=== PATIENT | male | born 1955 | race Caucasian/White ===

== ENCOUNTER 2023-03-27 09:30 | Outpatient (OUT) | payer OTHER, SELFPAY ==
[2023-03-27 10:24] LABS: Estimated Average Glucose 237 mg/dL; Glycohemoglobin A1C 9.9 % (4.5-6.2)
[2023-03-27 10:48] LABS: Alanine Aminotransferase 39 U/L (16-63); Albumin Level 3.6 g/dL (3.4-5.0); Alkaline Phosphatase 109 U/L (46-116); Anion Gap 15.1; Aspartate Amino Transferase 26 U/L (15-37); BUN Creatinine Ratio 13.4; Bilirubin Total 0.4 mg/dL (0.2-1.0); Calcium 9.4 mg/dL (8.5-10.1); Carbon Dioxide 26.4 mmol/L (21.0-32.0); Chloride 95 mmol/L (98-107); Estimated GFR (African America >60 (>=60); Estimated GFR (Non-African Ame >60 (>=60); Globulin 3.5 g/dL; Glucose 293 mg/dL (74-106); Potassium 4.5 mmol/L (3.5-5.1); Sodium 132 mmol/L (136-145); Total Protein 7.1 g/dL (6.4-8.2)
== END 2023-03-27 09:31 ==
LOC: LAB 09:38
PROVIDERS: PCP Internal Medicine; Visit Provider Internal Medicine
DX: E11.9 Type 2 diabetes mellitus without complications (principal)
CPT/HCPCS: 36415; 80053; 83036

== ENCOUNTER 2023-05-29 12:01 | Outpatient (OUT) | payer OTHER, SELFPAY ==
[2023-05-29 12:52] LABS: Estimated Average Glucose 157 mg/dL; Glycohemoglobin A1C 7.1 % (4.5-6.2)
[2023-05-29 13:02] LABS: Anion Gap 12.6; BUN Creatinine Ratio 13.5; Calcium 8.5 mg/dL (8.5-10.1); Carbon Dioxide 28.3 mmol/L (21.0-32.0); Chloride 94 mmol/L (98-107); Chol HDL Ratio 2.6; Cholesterol 97 mg/dL (<=200); Estimated GFR (African America >60 (>=60); Estimated GFR (Non-African Ame >60 (>=60); Glucose 256 mg/dL (74-106); HDL Cholesterol 38 mg/dL (40-60); Potassium 4.9 mmol/L (3.5-5.1); Sodium 130 mmol/L (136-145); Thyroid Stimulating Hormone 6.951 uIU/mL (0.358-3.740); Triglycerides 86 mg/dL (<=150); VLDL CHOLESTEROL 17.2 mg/dL
== END 2023-05-29 12:02 | disposition home or self-care (01) ==
LOC: LAB 12:03
PROVIDERS: PCP Internal Medicine; Visit Provider Internal Medicine
DX: E11.9 Type 2 diabetes mellitus without complications (principal); E03.9 Hypothyroidism, unspecified; E78.5 Hyperlipidemia, unspecified
CPT/HCPCS: 36415; 80048; 80061; 83036; 84443

== ENCOUNTER 2023-06-10 20:03 | Emergency (ER) | payer OTHER, SELFPAY ==
[2023-06-10 20:06] VITALS: BP 121/82; PULSE 98; RESP 20; TEMP 36.6; O2SAT 98; BMI 38.3
--- NOTE | 2023-06-10 20:11 | ED_ITS ---
HPI - Recheck/Abnormal Lab/Rx General Chief Complaint: Recheck/Abnormal Lab/Rx Stated Complaint: Abnormal Labs Time Seen by Provider: 06/10/23 20:08 History of Present Illness HPI narrative: patient is scheduled for right TKA next month. States he had labs drawn today and was informed they were abnormal and he should come to the ER. He arrives asymptomatic. He denies any easy bruising, bleeding while brushing his teeth or blood per rectum. Related Data Allergies Allergy/AdvReac Type Severity Reaction Status Date / Time No Known Drug Allergies Allergy Verified 06/10/23 20:14 Review of Systems ROS Status of ROS 10 or more systems reviewed and unremarkable except as noted in history and below Exam Constitutional Vital Signs, click to edit/add: Last Vital Signs Temp 98 F 06/10/23 20:06 Pulse 98 H 06/10/23 20:06 Resp 20 06/10/23 20:06 BP 121/82 06/10/23 20:06 Pulse Ox 98 06/10/23 20:06 O2 Del Method Room Air 06/10/23 20:06 Common normals: no apparent distress, average body habitus, oriented x3 and alert Eye Common normals: EOMs intact bilaterally and conjunctivae normal Respiratory Common normals: normal respiratory effort, no use of accessory muscles and clear to auscultation bilaterally Cardio Common normals: regular rate, regular rhythm, S1 normal heart sound and S2 normal heart sound Extremity Common normals: normal to inspection Neuro Common normals: oriented x3, CN's II-XII intact bilaterally, moves all extremities and no focal motor deficits Psych Appearance: grossly normal Course Vital Signs Vital signs: Vital Signs Temperature 98 F 06/10/23 20:06 Pulse Rate 98 H 06/10/23 20:06 Respiratory Rate 20 06/10/23 20:06 Blood Pressure 121/82 06/10/23 20:06 Pulse Oximetry 98 06/10/23 20:06 Oxygen Delivery Method Room Air 06/10/23 20:06 Temperature 98 F 06/10/23 20:06 Pulse Rate 98 H 06/10/23 20:06 Respiratory Rate 20 06/10/23 20:06 Blood Pressure 121/82 06/10/23 20:06 Pulse Oximetry 98 06/10/23 20:06 Oxygen Delivery Method Room Air 06/10/23 20:06 MDM - Recheck/Abnormal Lab/Rx MDM Narrative Medical decision making narrative: Patient sent to the Er for abnormal PT and INR. INR reportedly 10. Labs drawn here in the department finds INR to be very normal. he does have mild elevation of LFTs that can be followed up by his PCP. He is feeling well and is discharged home to follow up with his doctor Lab Data Labs: Lab Results 06/10/23 Range/Units 20:23 WBC 13.3 H (4.0-11.0) 10^3/uL RBC 4.57 L (4.70-6.10) 10^6/uL Hgb 13.8 L (14.0-18.0) g/dL Hct 40.0 L (42.0-54.0) % MCV 87.5 (80.0-94.0) fL MCH 30.2 (25.9-34.0) pg MCHC 34.5 (29.9-35.2) g/dL RDW 12.8 (11.0-15.0) % Plt Count 189 (150-450) 10^3/uL MPV 9.3 L (9.5-13.5) fL Neut % (Auto) 61.0 (43.0-75.0) % Lymph % (Auto) 19.6 L (20.5-60.0) % [place] % (Auto) 8.7 (1.7-12.0) % Eos % (Auto) 9.6 H (0.9-7.0) % Baso % (Auto) 0.7 (0.2-2.0) % Neut # (Auto) 8.1 H (1.4-6.5) 10^3/uL Lymph # (Auto) 2.6 (1.2-3.8) 10^3/uL [place] # (Auto) 1.2 H (0.3-0.8) 10^3/uL Eos # (Auto) 1.3 H (0.0-0.7) 10^3/uL Baso # (Auto) 0.1 (0.0-0.1) 10^3/uL Abs Immat Gran (auto) 0.05 H (0.00-0.03) 10^3/uL Imm/Tot Granulo (auto) 0.4 (0.0-0.5) % PT 10.5 (9.0-11.6) sec INR 0.99 APTT 28.5 (22.3-36.2) sec Sodium 128 L (136-145) mmol/L Potassium 4.6 (3.5-5.1) mmol/L Chloride 94 L (98-107) mmol/L Carbon Dioxide 26.1 (21.0-32.0) mmol/L Anion Gap 12.5 BUN 13.0 (7.0-18.0) mg/dL Creatinine 0.98 (0.70-1.30) mg/dL Est GFR ( Amer) >60 (>=60) Est GFR (Non-Af Amer) >60 (>=60) BUN/Creatinine Ratio 13.3 Glucose 101 (74-106) mg/dL Calcium 9.1 (8.5-10.1) mg/dL Total Bilirubin 0.5 (0.2-1.0) mg/dL AST 30 (15-37) U/L ALT 123 H (16-63) U/L Alkaline Phosphatase 126 H (46-116) U/L Total Protein 7.3 (6.4-8.2) g/dL Albumin 3.8 (3.4-5.0) g/dL Globulin 3.5 g/dL Albumin/Globulin Ratio 1.1 Discharge Plan Discharge Chief Complaint: Recheck/Abnormal Lab/Rx Clinical Impression: Abnormal laboratory test Patient Disposition: Home, Self-Care Additional Instructions: follow up with your doctor for recheck Stand Alone Forms: Portal Instructions Referrals: Shaikh Grove MD [Primary Care Provider] - 1 week
[2023-06-10 20:44] LABS: Basophils Absolute Auto 0.1 10^3/uL (0.0-0.1); Basophils Percent Auto 0.7 % (0.2-2.0); Eosinophils Absolute Auto 1.3 10^3/uL (0.0-0.7); Eosinophils Percent Auto 9.6 % (0.9-7.0); Hemoglobin 13.8 g/dL (14.0-18.0); Immature Granulocytes Abs Auto 0.05 10^3/uL (0.00-0.03); Immature Granulocytes Pct Auto 0.4 % (0.0-0.5); Lymphocytes Absolute Auto 2.6 10^3/uL (1.2-3.8); Lymphocytes Percent Auto 19.6 % (20.5-60.0); Mean Corpuscular HGB Conc 34.5 g/dL (29.9-35.2); Mean Corpuscular Hemoglobin 30.2 pg (25.9-34.0); Mean Corpuscular Volume 87.5 fL (80.0-94.0); Mean Platelet Volume 9.3 fL (9.5-13.5); Monocytes Absolute Auto 1.2 10^3/uL (0.3-0.8); Monocytes Percent Auto 8.7 % (1.7-12.0); Neutrophils Absolute Auto 8.1 10^3/uL (1.4-6.5); Platelet Count 189 10^3/uL (150-450); Red Blood Count 4.57 10^6/uL (4.70-6.10); Red Cell Distribution Width 12.8 % (11.0-15.0); White Blood Count 13.3 10^3/uL (4.0-11.0)
[2023-06-10 21:01] LABS: Alanine Aminotransferase 123 U/L (16-63); Albumin Globulin Ratio 1.1; Albumin Level 3.8 g/dL (3.4-5.0); Alkaline Phosphatase 126 U/L (46-116); Anion Gap 12.5; Aspartate Amino Transferase 30 U/L (15-37); BUN Creatinine Ratio 13.3; Bilirubin Total 0.5 mg/dL (0.2-1.0); Calcium 9.1 mg/dL (8.5-10.1); Carbon Dioxide 26.1 mmol/L (21.0-32.0); Chloride 94 mmol/L (98-107); Estimated GFR (African America >60 (>=60); Estimated GFR (Non-African Ame >60 (>=60); Globulin 3.5 g/dL; Glucose 101 mg/dL (74-106); Potassium 4.6 mmol/L (3.5-5.1); Sodium 128 mmol/L (136-145); Total Protein 7.3 g/dL (6.4-8.2)
[2023-06-10 21:07] LABS: INR 0.99; Partial Thromboplastin Time 28.5 sec (22.3-36.2); Prothrombin Time 10.5 sec (9.0-11.6)
[2023-06-10 21:24] VITALS: BP 110/70; PULSE 108; RESP 18; O2SAT 92
== END 2023-06-10 21:44 | disposition home or self-care (01) ==
PROVIDERS: Emergency Provider Internal Medicine; PCP Internal Medicine
DX: R79.1 Abnormal coagulation profile (principal)
CPT/HCPCS: 36415; 80053; 85025; 85610; 85730; 99283

== ENCOUNTER 2023-06-12 14:40 | Emergency (ER) | payer OTHER, SELFPAY ==
[2023-06-12 14:42] VITALS: BP 143/87; PULSE 88; RESP 18; TEMP 36.6; O2SAT 98; BMI 38.3
--- NOTE | 2023-06-12 14:50 | XR_ITS ---
[address] [address] Patient Name: JOIE LANGSTON JR. MRN: [id number] date: 1955 Sex: M Assigned Patient Location: ER Current Patient Location: Accession/Order Number: [id number] Exam Date: 06/12/2023 15:25 Report Date: 06/12/2023 15:57 At the request of: KIM CALHOUN Procedure: XR shoulder RT min 2V EXAM: XR shoulder RT min 2V HISTORY: fall COMPARISON: None. TECHNIQUE: 3 views FINDINGS: IMPRESSION: No fracture, dislocation, subluxation or osseous lesion. Large osteophytes off the humeral head. Small osteophytes off the inferior aspect of the glenoid. Age-related changes of the acromioclavicular joint. No visualized rib fracture. Electronically authenticated by: DAVID NGUYEN Date: 06/12/2023 15:57
--- NOTE | 2023-06-12 15:18 | XR_ITS ---
The [address] [address] Patient Name: JOIE LANGSTON JR. MRN: [id number] date: 1955 Sex: M Assigned Patient Location: ER Current Patient Location: ER Accession/Order Number: [id number] Exam Date: 06/12/2023 15:25 Report Date: 06/12/2023 16:29 At the request of: CHEMA ACOSTA Procedure: XR ribs RT min 3V w CXR1V EXAM: XR ribs RT min 3V w CXR1V TECHNIQUE: PA view chest. PA view of the ribs above diaphragm, PA view ribs below diaphragm, oblique view ribs above diaphragm, oblique view ribs below diaphragm HISTORY: pain right lateral chest. COMPARISON: None. FINDINGS: The heart is unremarkable for size. There is bilateral diffuse increased interstitial markings. More patchy appearing airspace opacity at the left lung base. No pneumothorax. There is no evidence for rib fracture. No lytic or blastic lesion. XR/XR ribs RT min 3V w CXR1V IMPRESSION: No rib fracture. Bilateral increased interstitial markings which may suggest chronic and/or acute interstitial lung disease and/or edema. More patchy hazy opacity at the left lung base which may suggest developing pneumonia. Electronically authenticated by: LIZETH MONREAL Date: 06/12/2023 16:29
--- NOTE | 2023-06-12 15:25 | ED.GENADUL1 ---
Documented by User: AMINA Gama 06/12/23 16:44 HPI - General Adult General Chief complaint: Fall Stated complaint: FELL/ LANDED ON R SIDE/RIBS HURT Time Seen by Provider: 06/12/23 15:13 Source: patient Mode of arrival: walk-in Limitations: no limitations History of Present Illness HPI narrative: patient is a 68-year-old male presents to the Emergency Room with concerns of right arm pain and right lateral chest wall pain. Patient states he has a arthritic knee that gives out on him frequently. States it gave out on him yesterday and he fell landing on his right chest wall and right shoulder. He has pain to the mid proximal humerus and lateral chest. Patient states she is on Ultram which is not helping for his pain. He denies shortness of breath but is concerned as he has scheduled surgery coming up next month for his knee. He denies any head or neck injury. Patient appears in no distress able to speak in full sentences and identifies as being right-hand dominant. Location: Reports chest, right and upper extremity Radiation: Reports non-radiation Severity: moderate Quality: Reports aching and dull Pain Consistency: Reports constant Relieving factors: Reports none Exacerbating factors: Reports none Treatments prior to arrival: Reports none Related Data Allergies Allergy/AdvReac Type Severity Reaction Status Date / Time No Known Drug Allergies Allergy Verified 06/10/23 20:14 Review of Systems ROS Constitutional Denies: fever or chills Eyes Denies: change in vision Ears, nose, mouth, and throat Denies: throat pain or dry mouth Cardiovascular Reports: chest pain (right lateral chest wall); Denies: palpitations Respiratory Denies: shortness of breath, cough, wheezing or stridor Gastrointestinal Denies: abdominal pain, nausea, vomiting or coffee grounds in vomit Genitourinary Denies: painful urination, urinary frequency or testicular pain Musculoskeletal Reports: joint pain (right knee chronic); Denies: back pain, neck pain, extremity pain or extremity swelling Integumentary/Breast Denies: rash or itching Neurological Denies: headache Psychiatric Denies: anxiety Hematologic/Lymphatic Denies: easy bruising Exam Narrative Exam Narrative: Nurses notes and vital signs reviewed and patient is not hypoxic. General: The patient appears well and in no apparent distress. Patient is resting comfortably on cart.polite, speaking in full sentences Skin: Warm, dry, no pallor noted.no evidence of rash. Chest wall carefullyl examined without evidence of zoster-like rash or contusion. Head: Normocephalic, atraumatic Neck: Supple, trachea mid-line, no tenderness, no lymphadenopathy, no midline cervical neck tenderness crepitus or step-off. Painless full passive range of motion Eye: Pupils are equal, round and reactive to light, EOMI Ears, Nose, Mouth, and Throat: external exam unremarkable Cardiovascular: Regular Rate and Rhythm Respiratory: Patient is in no distress, no accessory muscle use, lungs are clear to auscultation, no wheezing, rales or rhonchi. Chest Wall: right lateral chest wall tenderness noted. No crepitus or step-off, no paradoxical movement. No evidence of contusion. Back: non-tender, no CVA tenderness Musculoskeletal: patient has full range of motion of the right shoulder, mild pain to the deltoid insertion with passing ninety degrees of abduction and forward flexion. Patient has pain with gentle stressing of the rotator cuff, no crepitus. Patient without paresthesia or numbness or tingling. No tenderness to the elbow wrist or hand. Patient has minimal tenderness to the before meals joint, left shoulder unremarkable. Patient wearing a knee sleeve to the right knee reports no recent injury but chronic arthritic pain. GI: Normal bowel sounds, no tenderness to palpation, no masses appreciated. No rebound, guarding, or rigidity noted. Neurological: A&O x4, Psychiatric: Cooperative Constitutional Vital Signs, click to edit/add: Last Vital Signs Temp 97.8 F 06/12/23 14:42 Pulse 88 06/12/23 14:42 Resp 18 06/12/23 14:42 BP 143/87 H 06/12/23 14:42 Pulse Ox 98 06/12/23 14:42 O2 Del Method Room Air 06/12/23 14:42 Course Vital Signs Vital signs: Vital Signs Temperature 97.8 F 06/12/23 14:42 Pulse Rate 88 06/12/23 14:42 Respiratory Rate 18 06/12/23 14:42 Blood Pressure 143/87 H 06/12/23 14:42 Pulse Oximetry 98 06/12/23 14:42 Oxygen Delivery Method Room Air 06/12/23 14:42 Temperature 97.8 F 06/12/23 14:42 Pulse Rate 88 06/12/23 14:42 Respiratory Rate 18 06/12/23 14:42 Blood Pressure 143/87 H 06/12/23 14:42 Pulse Oximetry 98 06/12/23 14:42 Oxygen Delivery Method Room Air 06/12/23 14:42 Medical Decision Making MDM Narrative Medical decision making narrative: oarrs reviewed and patient on Ultram recently filled by his PCP. Patient educated for use of incentive spirometer given likely chest wall contusion. X-ray of the ribs ordered and performed. Miild impingement syndrome of the right shoulder and x-ray performed to rule out fracture. Strongly recommend follow-up to his orthopedist Dr. Mcgowan in [place] for further evaluation of these injuries as they may play into his elective right total knee surgery. Verbally agreeable. pneumonia not likely given recent fall, but encourage use of pep device . Follow-up PCP if additional pain meds. The patient is to followup with primary care physician in next 2-3 days or to return to the emergency department should any of the signs or symptoms worsen or new symptoms develop. Patient had questions answered. The patient agrees with the following Diagnosis and Treatment plan and the patient will be discharged home. Medical Records Medical records narrative: Procedure: XR ribs RT min 3V w CXR1V EXAM: XR ribs RT min 3V w CXR1V TECHNIQUE: PA view chest. PA view of the ribs above diaphragm, PA view ribs below diaphragm, oblique view ribs above diaphragm, oblique view ribs below diaphragm HISTORY: pain right lateral chest. COMPARISON: None. FINDINGS: The heart is unremarkable for size. There is bilateral diffuse increased interstitial markings. More patchy appearing airspace opacity at the left lung base. No pneumothorax. There is no evidence for rib fracture. No lytic or blastic lesion. IMPRESSION: No rib fracture. Bilateral increased interstitial markings which may suggest chronic and/or acute interstitial lung disease and/or edema. More patchy hazy opacity at the left lung base which may suggest developing pneumonia. Electronically authenticated by: LIZETH MONREAL Date: 06/12/2023 16:29 Procedure: XR shoulder RT min 2V EXAM: XR shoulder RT min 2V HISTORY: fall COMPARISON: None. TECHNIQUE: 3 views FINDINGS: IMPRESSION: No fracture, dislocation, subluxation or osseous lesion. Large osteophytes off the humeral head. Small osteophytes off the inferior aspect of the glenoid. Age-related changes of the acromioclavicular joint. No visualized rib fracture. Electronically authenticated by: DAVID NGUYEN Date: 06/12/2023 15:57 Discharge Plan Discharge Chief Complaint: Fall Clinical Impression: Acute pain of right shoulder, Chest wall contusion, Arthritis of right shoulder region Patient Disposition: Home, Self-Care Time of Disposition Decision: 16:43 Condition: Good Instructions: Shoulder Pain (ED), Rib Contusion (ED) Additional Instructions: contact your orthopedist to discuss follow-up, right shoulder arthritis, right chest wall contusion with upcoming total joint replacement Stand Alone Forms: Portal Instructions Referrals: Shaikh Grove MD [Primary Care Provider] - 1 week Discharge Date/Time: 06/12/23 16:59 Documented by User: Leslie Orellana MD 06/12/23 17:48 HPI - General Adult General Chief complaint: Fall Stated complaint: FELL/ LANDED ON R SIDE/RIBS HURT Time Seen by Provider: 06/12/23 15:13 Related Data Allergies Allergy/AdvReac Type Severity Reaction Status Date / Time No Known Drug Allergies Allergy Verified 06/10/23 20:14 Exam Constitutional Vital Signs, click to edit/add: Last Vital Signs Temp 97.8 F 06/12/23 14:42 Pulse 88 06/12/23 14:42 Resp 18 06/12/23 14:42 BP 143/87 H 06/12/23 14:42 Pulse Ox 98 06/12/23 14:42 O2 Del Method Room Air 06/12/23 14:42 Course Vital Signs Vital signs: Vital Signs Temperature 97.8 F 06/12/23 14:42 Pulse Rate 88 06/12/23 14:42 Respiratory Rate 18 06/12/23 14:42 Blood Pressure 143/87 H 06/12/23 14:42 Pulse Oximetry 98 06/12/23 14:42 Oxygen Delivery Method Room Air 06/12/23 14:42 Temperature 97.8 F 06/12/23 14:42 Pulse Rate 88 06/12/23 14:42 Respiratory Rate 18 06/12/23 14:42 Blood Pressure 143/87 H 06/12/23 14:42 Pulse Oximetry 98 06/12/23 14:42 Oxygen Delivery Method Room Air 06/12/23 14:42 Medical Decision Making MDM Narrative Medical decision making narrative: oarrs reviewed and patient on Ultram recently filled by his PCP. Patient educated for use of incentive spirometer given likely chest wall contusion. X-ray of the ribs ordered and performed. Miild impingement syndrome of the right shoulder and x-ray performed to rule out fracture. Strongly recommend follow-up to his orthopedist Dr. Mcgowan in [place] for further evaluation of these injuries as they may play into his elective right total knee surgery. Verbally agreeable. pneumonia not likely given recent fall, but encourage use of pep device . Follow-up PCP if additional pain meds. The patient is to followup with primary care physician in next 2-3 days or to return to the emergency department should any of the signs or symptoms worsen or new symptoms develop. Patient had questions answered. The patient agrees with the following Diagnosis and Treatment plan and the patient will be discharged home. Attending physician attestation I have reviewed the mid-level documentation, agree with the documentation, medical decision making and treatment plan as outlined by the mid-level provider. Discharge Plan Discharge Chief Complaint: Fall Clinical Impression: Acute pain of right shoulder, Chest wall contusion, Arthritis of right shoulder region Patient Disposition: Home, Self-Care Time of Disposition Decision: 16:43 Condition: Good Instructions: Shoulder Pain (ED), Rib Contusion (ED) Additional Instructions: contact your orthopedist to discuss follow-up, right shoulder arthritis, right chest wall contusion with upcoming total joint replacement Stand Alone Forms: Portal Instructions Referrals: Shaikh Grove MD [Primary Care Provider] - 1 week Discharge Date/Time: 06/12/23 16:59
[2023-06-12] MEDS: KETOROLAC TROMETHAMINE 60 MG/2 ML VIAL IM (16:57)
--- NOTE | 2023-06-12 17:05 | PC.NURSE ---
pt wheeled out to car at this time
== END 2023-06-12 16:59 | disposition home or self-care (01) ==
PROVIDERS: Emergency Provider Emergency Medicine; PCP Internal Medicine
DX: M25.511 Pain in right shoulder (principal); S20.211A Contusion of right front wall of thorax, initial encounter; M19.011 Primary osteoarthritis, right shoulder; W19.XXXA Unspecified fall, initial encounter
CPT/HCPCS: 71101; 73030; 94667; 96372; 99285

== ENCOUNTER 2023-07-20 04:05 | Emergency (ER) | payer OTHER, SELFPAY ==
[2023-07-20 04:10] VITALS: BP 135/82; PULSE 91; RESP 20; TEMP 36.5; O2SAT 100; BMI 36.5
--- NOTE | 2023-07-20 04:17 | XR_ITS ---
The [address] [address] Patient Name: JOIE LANGSTON JR. MRN: [id number] date: 1955 Sex: M Assigned Patient Location: ER Current Patient Location: ER Accession/Order Number: [id number] Exam Date: 07/20/2023 04:25 Report Date: 07/20/2023 05:07 At the request of: JORDANA MONTANO Procedure: XR knee RT 3V EXAM: XR knee RT 3V HISTORY: drainage from op wound COMPARISON: None. TECHNIQUE: 3 views of the right knee were obtained. FINDINGS: There are postsurgical changes of a right total knee arthroplasty. No acute fracture or dislocation is seen. Atherosclerotic calcifications are noted. There is a moderate-sized right knee joint effusion. There is soft tissue edema about the knee. No soft tissue air is seen. XR/XR knee RT 3V IMPRESSION: 1. Moderate-sized right knee joint effusion with soft tissue edema about the knee. No acute osseous abnormality or soft tissue air is seen. Electronically authenticated by: Caridad ALCALA Date: 07/20/2023 05:07
--- NOTE | 2023-07-20 04:23 | ED_ITS ---
HPI - General Adult General Chief complaint: Extremity Injury, Lower Stated complaint: le pain Time Seen by Provider: 07/20/23 04:07 Source: patient Mode of arrival: Wheelchair Limitations: no limitations History of Present Illness HPI narrative: 68-year-old male presents for drainage from his right knee. Just under a month ago he had right knee replacement in [place]. Tonight he had a pin hole size area open and some fluid drained out of it. He has some mild pain. No fever or injury. Related Data Home Medications Medication Instructions Recorded Confirmed amlodipine 5 mg tablet 5 mg PO DAILY 07/20/23 07/20/23 aspirin 325 mg tablet 325 mg PO DAILY 07/20/23 07/20/23 atorvastatin 10 mg tablet 10 mg PO DAILY 07/20/23 07/20/23 azelastine 137 mcg (0.1 %) nasal 1 spray intranasal Q12H 07/20/23 07/20/23 spray aerosol buspirone 30 mg tablet 30 mg PO BID 07/20/23 07/20/23 clonazepam 1 mg tablet 1 mg PO Q8H 07/20/23 07/20/23 cyclobenzaprine 10 mg tablet 10 mg PO Q8H 07/20/23 07/20/23 fluticasone furoate 100 1 inh inhalation Q24H 07/20/23 07/20/23 mcg-vilanterol 25 mcg/dose inhalation powder (Breo Ellipta) fluticasone propionate 50 2 spray intranasal DAILY 07/20/23 07/20/23 mcg/actuation nasal spray,suspension gabapentin 300 mg capsule 300 mg PO Q8H 07/20/23 07/20/23 glimepiride 4 mg tablet 4 mg PO BID 07/20/23 07/20/23 hydroxyzine HCl 25 mg tablet 25 mg PO Q8H 07/20/23 07/20/23 levothyroxine 125 mcg tablet 125 mcg PO DAILY 07/20/23 07/20/23 lisinopril 20 mg tablet 20 mg PO DAILY 07/20/23 07/20/23 loratadine 10 mg tablet 10 mg PO Q24H 07/20/23 07/20/23 meloxicam 7.5 mg tablet 7.5 mg PO DAILY 07/20/23 07/20/23 metformin 850 mg tablet 850 mg PO BID 07/20/23 07/20/23 prazosin 1 mg capsule 1 mg PO DAILY 07/20/23 07/20/23 tramadol 50 mg tablet 50 mg PO Q12H 07/20/23 07/20/23 venlafaxine 150 mg 150 mg PO DAILY 07/20/23 07/20/23 capsule,extended release 24 hr Previous Rx's Medication Instructions Recorded amoxicillin 875 mg-potassium 1 tab PO BID #20 tabs 07/20/23 clavulanate 125 mg tablet hydrocodone 5 mg-acetaminophen 325 1 tab PO Q6H PRN pain 5 days #20 07/20/23 mg tablet tabs Allergies Allergy/AdvReac Type Severity Reaction Status Date / Time morphine Allergy Verified 07/20/23 04:16 Review of Systems ROS Narrative A ten point review of systems is negative except as noted above. PFSH PFSH Social History Smoking status: Former smoker Exam Narrative Exam Narrative: Nurses note and vital signs reviewed and patient is not hypoxic. General: The patient appears well and in no apparent distress. Patient is resting comfortably on cart. Skin: Warm, dry, no pallor noted. There is no rash noted. Head: Normocephalic, atraumatic Eye: Normal conjunctiva, no drainage Ears, Nose, Mouth, and Throat: oral mucosa is moist. Nares patent. Cardiovascular: Regular Rate and Rhythm Respiratory: Patient is in no distress, no accessory muscle use, lungs are clear to auscultation, no wheezing, rales or rhonchi Back: non-tender GI: nontender Musculoskeletal: the right knee has a healing surgical wound. There is a pinhole size area center of the healing incision. I cannot express any fluid from it. There is no surrounding erythema. Neurological: A&O, normal speech Psychiatric: Cooperative Constitutional Vital Signs, click to edit/add: Last Vital Signs Temp 97.7 F 07/20/23 04:10 Pulse 91 H 07/20/23 04:10 Resp 20 07/20/23 04:10 BP 135/82 07/20/23 04:10 Pulse Ox 100 07/20/23 04:10 O2 Del Method Room Air 07/20/23 04:10 Course Vital Signs Vital signs: Vital Signs Temperature 97.7 F 07/20/23 04:10 Pulse Rate 91 H 07/20/23 04:10 Respiratory Rate 20 07/20/23 04:10 Blood Pressure 135/82 07/20/23 04:10 Pulse Oximetry 100 07/20/23 04:10 Oxygen Delivery Method Room Air 07/20/23 04:10 Temperature 97.7 F 07/20/23 04:10 Pulse Rate 91 H 07/20/23 04:10 Respiratory Rate 20 07/20/23 04:10 Blood Pressure 135/82 07/20/23 04:10 Pulse Oximetry 100 07/20/23 04:10 Oxygen Delivery Method Room Air 07/20/23 04:10 Medical Decision Making MDM Narrative Medical decision making narrative: on exam I could not express any drainage. Clinically I do not suspect an infection. X-ray shows effusion but he had very recent surgery. WBC is only eleven thousand and he does not have a fever. I do not suspect intra-articular infection. He'll be placed on Augmentin and will call his orthopedist in the morning for recheck in the next 1-2 days. The importance of follow-up was discussed with the patient. Differential Diagnosis Differential Diagnosis: wound dehiscence, cellulitis, intra-articular infection Lab Data Lab results reviewed: Yes I reviewed the patient's lab results Labs: Lab Results 07/20/23 Range/Units 04:42 WBC 11.3 H (4.0-11.0) 10^3/uL RBC 4.17 L (4.70-6.10) 10^6/uL Hgb 13.0 L (14.0-18.0) g/dL Hct 38.3 L (42.0-54.0) % MCV 91.8 (80.0-94.0) fL MCH 31.2 (25.9-34.0) pg MCHC 33.9 (29.9-35.2) g/dL RDW 14.4 (11.0-15.0) % Plt Count 140 L (150-450) 10^3/uL MPV 9.0 L (9.5-13.5) fL Neut % (Auto) 80.4 H (43.0-75.0) % Lymph % (Auto) 8.8 L (20.5-60.0) % [place] % (Auto) 7.5 (1.7-12.0) % Eos % (Auto) 2.5 (0.9-7.0) % Baso % (Auto) 0.5 (0.2-2.0) % Neut # (Auto) 9.1 H (1.4-6.5) 10^3/uL Lymph # (Auto) 1.0 L (1.2-3.8) 10^3/uL [place] # (Auto) 0.9 H (0.3-0.8) 10^3/uL Eos # (Auto) 0.3 (0.0-0.7) 10^3/uL Baso # (Auto) 0.1 (0.0-0.1) 10^3/uL Abs Immat Gran (auto) 0.03 (0.00-0.03) 10^3/uL Imm/Tot Granulo (auto) 0.3 (0.0-0.5) % Sodium 132 L (136-145) mmol/L Potassium 4.4 (3.5-5.1) mmol/L Chloride 100 (98-107) mmol/L Carbon Dioxide 21.9 (21.0-32.0) mmol/L Anion Gap 14.5 BUN 12.0 (7.0-18.0) mg/dL Creatinine 1.02 (0.70-1.30) mg/dL Est GFR ( Amer) >60 (>=60) Est GFR (Non-Af Amer) >60 (>=60) BUN/Creatinine Ratio 11.8 Glucose 135 H (74-106) mg/dL Calcium 9.0 (8.5-10.1) mg/dL Imaging Data knee x-ray: Radiologist's impression: Procedure: XR knee RT 3V EXAM: XR knee RT 3V HISTORY: drainage from op wound COMPARISON: None. TECHNIQUE: 3 views of the right knee were obtained. FINDINGS: There are postsurgical changes of a right total knee arthroplasty. No acute fracture or dislocation is seen. Atherosclerotic calcifications are noted. There is a moderate-sized right knee joint effusion. There is soft tissue edema about the knee. No soft tissue air is seen. IMPRESSION: 1. Moderate-sized right knee joint effusion with soft tissue edema about the knee. No acute osseous abnormality or soft tissue air is seen. Electronically authenticated by: Caridad ALCALA Date: 07/20/2023 05 Discharge Plan Discharge Chief Complaint: Extremity Injury, Lower Clinical Impression: Post-operative pain Patient Disposition: Home, Self-Care Time of Disposition Decision: 05:42 Condition: Good Mode of Transportation: Private Vehicle Prescriptions / Home Meds: New amoxicillin-pot clavulanate 875-125 mg tablet 1 tab PO BID Qty: 20 0RF hydrocodone-acetaminophen 5-325 mg tablet 1 tab PO Q6H PRN (Reason: pain) 5 Days Qty: 20 0RF No Action amlodipine 5 mg tablet 5 mg PO DAILY aspirin 325 mg tablet 325 mg PO DAILY atorvastatin 10 mg tablet 10 mg PO DAILY azelastine 137 mcg (0.1 %) aerosol,spray 1 spray INTRANASAL Q12H buspirone 30 mg tablet 30 mg PO BID clonazepam 1 mg tablet 1 mg PO Q8H cyclobenzaprine 10 mg tablet 10 mg PO Q8H fluticasone furoate-vilanterol [Breo Ellipta] 100-25 mcg/dose blister with device 1 inh INHALATION Q24H fluticasone propionate 50 mcg/actuation spray,suspension 2 spray INTRANASAL DAILY gabapentin 300 mg capsule 300 mg PO Q8H glimepiride 4 mg tablet 4 mg PO BID hydroxyzine HCl 25 mg tablet 25 mg PO Q8H levothyroxine 125 mcg tablet 125 mcg PO DAILY lisinopril 20 mg tablet 20 mg PO DAILY loratadine 10 mg tablet 10 mg PO Q24H meloxicam 7.5 mg tablet 7.5 mg PO DAILY metformin 850 mg tablet 850 mg PO BID prazosin 1 mg capsule 1 mg PO DAILY tramadol 50 mg tablet 50 mg PO Q12H venlafaxine 150 mg capsule,extended release 24hr 150 mg PO DAILY Instructions: Pain Management After Surgery (DC) Additional Instructions: Call your orthopedist in the morning for recheck in the next 1-2 days Stand Alone Forms: Portal Instructions Referrals: Shaikh Grove MD [Primary Care Provider] - 1 week
[2023-07-20 04:56] LABS: Basophils Absolute Auto 0.1 10^3/uL (0.0-0.1); Basophils Percent Auto 0.5 % (0.2-2.0); Eosinophils Absolute Auto 0.3 10^3/uL (0.0-0.7); Eosinophils Percent Auto 2.5 % (0.9-7.0); Hematocrit 38.3 % (42.0-54.0); Immature Granulocytes Abs Auto 0.03 10^3/uL (0.00-0.03); Immature Granulocytes Pct Auto 0.3 % (0.0-0.5); Lymphocytes Percent Auto 8.8 % (20.5-60.0); Mean Corpuscular HGB Conc 33.9 g/dL (29.9-35.2); Mean Corpuscular Hemoglobin 31.2 pg (25.9-34.0); Mean Corpuscular Volume 91.8 fL (80.0-94.0); Monocytes Absolute Auto 0.9 10^3/uL (0.3-0.8); Monocytes Percent Auto 7.5 % (1.7-12.0); Neutrophils Absolute Auto 9.1 10^3/uL (1.4-6.5); Neutrophils Percent Auto 80.4 % (43.0-75.0); Platelet Count 140 10^3/uL (150-450); Red Blood Count 4.17 10^6/uL (4.70-6.10); Red Cell Distribution Width 14.4 % (11.0-15.0); White Blood Count 11.3 10^3/uL (4.0-11.0)
[2023-07-20 05:05] LABS: Anion Gap 14.5; BUN Creatinine Ratio 11.8; Carbon Dioxide 21.9 mmol/L (21.0-32.0); Chloride 100 mmol/L (98-107); Estimated GFR (African America >60 (>=60); Estimated GFR (Non-African Ame >60 (>=60); Glucose 135 mg/dL (74-106); Potassium 4.4 mmol/L (3.5-5.1); Sodium 132 mmol/L (136-145)
[2023-07-20] MEDS: HYDROMORPHONE HCL 2 MG/ML VIAL 1 MG IV (06:07)
[2023-07-20 07:28] VITALS: BP 98/68; PULSE 98; RESP 18; O2SAT 93
[2023-07-20 08:30] VITALS: BP 121/82; PULSE 101; RESP 18; O2SAT 91
== END 2023-07-20 09:20 | disposition home or self-care (01) ==
PROVIDERS: Emergency Provider Emergency Medicine; PCP Internal Medicine
DX: G89.18 Other acute postprocedural pain (principal); M25.561 Pain in right knee; Z96.651 Presence of right artificial knee joint; Z79.899 Other long term (current) drug therapy; Z79.82 Long term (current) use of aspirin; Z79.890 Hormone replacement therapy; Z79.84 Long term (current) use of oral hypoglycemic drugs; Z87.891 Personal history of nicotine dependence
CPT/HCPCS: 36415; 73562; 80048; 85025; 96374; 99284; J1170

== ENCOUNTER 2023-07-21 11:55 | Emergency (ER) | payer OTHER, SELFPAY ==
[2023-07-21 12:01] VITALS: BP 122/91; PULSE 119; RESP 18; TEMP 36.8; O2SAT 100; BMI 36.5
[2023-07-21 13:11] LABS: Basophils Absolute Auto 0.1 10^3/uL (0.0-0.1); Basophils Percent Auto 0.4 % (0.2-2.0); Eosinophils Absolute Auto 0.1 10^3/uL (0.0-0.7); Eosinophils Percent Auto 0.6 % (0.9-7.0); Hematocrit 38.5 % (42.0-54.0); Hemoglobin 12.7 g/dL (14.0-18.0); Immature Granulocytes Abs Auto 0.07 10^3/uL (0.00-0.03); Immature Granulocytes Pct Auto 0.6 % (0.0-0.5); Lymphocytes Absolute Auto 0.9 10^3/uL (1.2-3.8); Lymphocytes Percent Auto 7.1 % (20.5-60.0); Mean Corpuscular Hemoglobin 31.1 pg (25.9-34.0); Mean Corpuscular Volume 94.4 fL (80.0-94.0); Mean Platelet Volume 8.9 fL (9.5-13.5); Monocytes Absolute Auto 1.5 10^3/uL (0.3-0.8); Monocytes Percent Auto 11.8 % (1.7-12.0); Neutrophils Absolute Auto 9.9 10^3/uL (1.4-6.5); Neutrophils Percent Auto 79.5 % (43.0-75.0); Platelet Count 132 10^3/uL (150-450); Red Blood Count 4.08 10^6/uL (4.70-6.10); Red Cell Distribution Width 14.5 % (11.0-15.0); White Blood Count 12.5 10^3/uL (4.0-11.0)
[2023-07-21 13:40] VITALS: PULSE 110
--- NOTE | 2023-07-21 15:59 | ED.GENADUL1 ---
HPI - General Adult General Chief complaint: Extremity Injury, Lower Stated complaint: PAIN IN LEGS/FLUID RUNS DOWN LEG Time Seen by Provider: 07/21/23 12:35 Source: patient Mode of arrival: Wheelchair Limitations: no limitations History of Present Illness HPI narrative: 68-year-old male presents for right knee pain. 3-1/2 weeks ago he had right knee replacement. He was seen here yesterday and at that time had an essentially normal WBC. X-ray showed joint effusion and some soft tissue swelling. No pus was draining. He was placed on Augmentin. He continues to have discomfort today but hasn't had a fever or trauma. The pain is moderate to severe. Related Data Home Medications Medication Instructions Recorded Confirmed amlodipine 5 mg tablet 5 mg PO DAILY 07/20/23 07/20/23 aspirin 325 mg tablet 325 mg PO DAILY 07/20/23 07/20/23 atorvastatin 10 mg tablet 10 mg PO DAILY 07/20/23 07/20/23 azelastine 137 mcg (0.1 %) nasal 1 spray intranasal Q12H 07/20/23 07/20/23 spray aerosol buspirone 30 mg tablet 30 mg PO BID 07/20/23 07/20/23 clonazepam 1 mg tablet 1 mg PO Q8H 07/20/23 07/20/23 cyclobenzaprine 10 mg tablet 10 mg PO Q8H 07/20/23 07/20/23 fluticasone furoate 100 1 inh inhalation Q24H 07/20/23 07/20/23 mcg-vilanterol 25 mcg/dose inhalation powder (Breo Ellipta) fluticasone propionate 50 2 spray intranasal DAILY 07/20/23 07/20/23 mcg/actuation nasal spray,suspension gabapentin 300 mg capsule 300 mg PO Q8H 07/20/23 07/20/23 glimepiride 4 mg tablet 4 mg PO BID 07/20/23 07/20/23 hydroxyzine HCl 25 mg tablet 25 mg PO Q8H 07/20/23 07/20/23 levothyroxine 125 mcg tablet 125 mcg PO DAILY 07/20/23 07/20/23 lisinopril 20 mg tablet 20 mg PO DAILY 07/20/23 07/20/23 loratadine 10 mg tablet 10 mg PO Q24H 07/20/23 07/20/23 meloxicam 7.5 mg tablet 7.5 mg PO DAILY 07/20/23 07/20/23 metformin 850 mg tablet 850 mg PO BID 07/20/23 07/20/23 prazosin 1 mg capsule 1 mg PO DAILY 07/20/23 07/20/23 tramadol 50 mg tablet 50 mg PO Q12H 07/20/23 07/20/23 venlafaxine 150 mg 150 mg PO DAILY 07/20/23 07/20/23 capsule,extended release 24 hr Previous Rx's Medication Instructions Recorded amoxicillin 875 mg-potassium 1 tab PO BID #20 tabs 07/20/23 clavulanate 125 mg tablet hydrocodone 5 mg-acetaminophen 325 1 tab PO Q6H PRN pain 5 days #20 07/20/23 mg tablet tabs Allergies Allergy/AdvReac Type Severity Reaction Status Date / Time morphine Allergy Verified 07/20/23 04:16 Review of Systems ROS Narrative A ten point review of systems is negative except as noted above. PFSH PFSH Social History Smoking status: Never smoker Exam Narrative Exam Narrative: Nurses note and vital signs reviewed and patient is not hypoxic. General: The patient appears well and in no apparent distress. Patient is resting comfortably on cart. Skin: Warm, dry, no pallor noted. There is no rash noted. Head: Normocephalic, atraumatic Eye: Normal conjunctiva, no drainage Ears, Nose, Mouth, and Throat: oral mucosa is moist. Nares patent. Cardiovascular: Regular Rate and Rhythm Respiratory: Patient is in no distress, no accessory muscle use, lungs are clear to auscultation, no wheezing, rales or rhonchi Back: non-tender GI: nontender Musculoskeletal: the right knee is examined. Steri-Strips are still in place at the superior aspect. Towards the inferior aspect is a pinhole-sized area without any drainage. There is very minimal surrounding erythema. Chem to express drainage from the opening but there was none able to be expressed. Neurological: A&O x4, normal speech Psychiatric: Cooperative Constitutional Vital Signs, click to edit/add: Last Vital Signs Temp 98.3 F 07/21/23 12:01 Pulse 110 H 07/21/23 13:40 Resp 18 07/21/23 12:01 BP 122/91 07/21/23 12:01 Pulse Ox 100 07/21/23 12:01 O2 Del Method Room Air 07/21/23 12:01 Course Vital Signs Vital signs: Vital Signs Temperature 98.3 F 07/21/23 12:01 Pulse Rate 119 H 07/21/23 12:01 Respiratory Rate 18 07/21/23 12:01 Blood Pressure 122/91 07/21/23 12:01 Pulse Oximetry 100 07/21/23 12:01 Oxygen Delivery Method Room Air 07/21/23 12:01 Temperature 98.3 F 07/21/23 12:01 Pulse Rate 110 H 07/21/23 13:40 Respiratory Rate 18 07/21/23 12:01 Blood Pressure 122/91 07/21/23 12:01 Pulse Oximetry 100 07/21/23 12:01 Oxygen Delivery Method Room Air 07/21/23 12:01 Medical Decision Making MDM Narrative Medical decision making narrative: case discussed with orthopedist, Dr. Mcgowan, who requests transfer to [facility]. I have spoken to the Emergency Room physician there and the patient will be transported by EMS for evaluation by Dr. Mcgowan. The patient is stable and agreeable to this plan. Differential Diagnosis Differential Diagnosis: postoperative pain, cellulitis Lab Data Lab results reviewed: Yes I reviewed the patient's lab results Labs: Lab Results 07/21/23 Range/Units 12:59 WBC 12.5 H (4.0-11.0) 10^3/uL RBC 4.08 L (4.70-6.10) 10^6/uL Hgb 12.7 L (14.0-18.0) g/dL Hct 38.5 L (42.0-54.0) % MCV 94.4 H (80.0-94.0) fL MCH 31.1 (25.9-34.0) pg MCHC 33.0 (29.9-35.2) g/dL RDW 14.5 (11.0-15.0) % Plt Count 132 L (150-450) 10^3/uL MPV 8.9 L (9.5-13.5) fL Neut % (Auto) 79.5 H (43.0-75.0) % Lymph % (Auto) 7.1 L (20.5-60.0) % [place] % (Auto) 11.8 (1.7-12.0) % Eos % (Auto) 0.6 L (0.9-7.0) % Baso % (Auto) 0.4 (0.2-2.0) % Neut # (Auto) 9.9 H (1.4-6.5) 10^3/uL Lymph # (Auto) 0.9 L (1.2-3.8) 10^3/uL [place] # (Auto) 1.5 H (0.3-0.8) 10^3/uL Eos # (Auto) 0.1 (0.0-0.7) 10^3/uL Baso # (Auto) 0.1 (0.0-0.1) 10^3/uL Abs Immat Gran (auto) 0.07 H (0.00-0.03) 10^3/uL Imm/Tot Granulo (auto) 0.6 H (0.0-0.5) % Discharge Plan Discharge Chief Complaint: Extremity Injury, Lower Clinical Impression: Post-operative pain Patient Disposition: [facility] Time of Disposition Decision: 15:58 Discharge location: [facility] Condition: Good Mode of Transportation: EMS
[2023-07-21 16:29] VITALS: PULSE 109; O2SAT 94
[2023-07-21 16:31] VITALS: BP 147/93
[2023-07-21] MEDS: HYDROMORPHONE HCL 1 MG/ML CARTRIDGE IVP ×2 (16:37→18:15)
[2023-07-21 17:18] VITALS: BP 155/86; PULSE 117; O2SAT 96
== END 2023-07-21 18:16 | disposition short-term general hospital (02) ==
PROVIDERS: Emergency Provider Emergency Medicine; PCP Internal Medicine
DX: G89.18 Other acute postprocedural pain (principal); M25.561 Pain in right knee; Z96.651 Presence of right artificial knee joint; Z79.899 Other long term (current) drug therapy; Z79.82 Long term (current) use of aspirin; Z79.890 Hormone replacement therapy; Z79.84 Long term (current) use of oral hypoglycemic drugs
CPT/HCPCS: 36415; 85025; 87070; 96374; 96376; 99285; J1170

== ENCOUNTER 2023-10-27 12:59 | Outpatient (OUT) | payer OTHER, SELFPAY ==
--- NOTE | 2023-10-27 13:31 | XR_ITS ---
The [address] [address] Patient Name: JOIE LANGSTON MRN: [id number] date: 1955 Sex: M Assigned Patient Location: LAB Current Patient Location: LAB Accession/Order Number: [id number] Exam Date: 10/27/2023 13:42 Report Date: 10/27/2023 14:04 At the request of: SHAIKH NORMA Procedure: XR knee RT 3V EXAM: XR knee RT 3V HISTORY: chronic pain of right knee M25.561 COMPARISON: 07/20/2023. TECHNIQUE: 3 views of the right knee were obtained. FINDINGS: There is a large joint effusion. Evidence of right knee arthroplasty. Extensive soft tissue swelling is seen anterior to the right knee. XR/XR knee RT 3V IMPRESSION: 1. No evidence of acute fracture. 2. Large joint effusion. 3. Soft tissue swelling anterior to the right knee. Electronically authenticated by: BECKY DANIEL Date: 10/27/2023 14:04
== END 2023-10-27 13:00 | disposition home or self-care (01) ==
LOC: LAB 13:01
PROVIDERS: PCP Internal Medicine; Visit Provider Internal Medicine
DX: E11.40 Type 2 diabetes mellitus with diabetic neuropathy, unspecified (principal); I10 Essential (primary) hypertension; E78.5 Hyperlipidemia, unspecified; E03.9 Hypothyroidism, unspecified; M25.561 Pain in right knee; M25.461 Effusion, right knee
CPT/HCPCS: 73562

== ENCOUNTER 2023-11-01 13:07 | Emergency (ER) | payer OTHER, SELFPAY ==
[2023-11-01 13:11] VITALS: BP 168/86; PULSE 89; RESP 20; TEMP 36.4; O2SAT 98; BMI 37.7
--- OUTSIDE RECORDS SUMMARY | 2023-11-01 13:26 | XMS_ITS | CCD ---
Author Name Unknown Address [address] [place] [address] Organization [facility] Care Team Providers Care General Inspector Name Role Phone PHYSICIAN, DEFAULT Unavailable Unavailable PHYSICIAN, DEFAULT Unavailable Unavailable Naderer, Regan A Primary Care Provider Agustin Nj Unavailable Marlin Vasquez Unavailable Naderer, Regan A Primary Care Provider SHIKHA MUNOZ Attending Unavailable NADERER, REGAN A Referring Unavailable NADERER, REGAN A Primary Care Unavailable SUKALAC, PARTHA Attending Unavailable NADERER, REGAN A Primary Care Unavailable SAIMA MACDONALD Attending Unavailable SUKALAC, PARTHA Referring Unavailable NADERER, REGAN A Primary Care Unavailable SUKALAC, PARTHA Attending Unavailable IZA, GIFTY Referring Unavailable NADERER, REGAN A Primary Care Unavailable IZA, GIFTY Attending Unavailable IZA, GIFTY Referring Unavailable NADERER, REGAN A Primary Care Unavailable KIM MCMILLAN Attending Unavailable FAWWAD, CALVO H Primary Care Unavailable KIM MCMILLAN Admitting Unavailable OLGA DRAKE Consulting Unavailable CAYLA MARTIN Consulting Unavailable DR BRENDA THOMPSON Admitting Unavailable FAWWAD, CALVO H Primary Care Unavailable DR BRENDA THOMPSON Attending Unavailable FAWWAD, CALVO H Consulting Unavailable FAWWAD, CALVO H Attending Unavailable FAWWAD, CALVO H Primary Care Unavailable FAWWAD, CALVO H Admitting Unavailable CASSY MARTIN Consulting Unavailable FAWWAD, CALVO H Consulting Unavailable FAWWAD, CALVO H Attending Unavailable FAWWAD, CALVO H Primary Care Unavailable FAWWAD, CALVO H Admitting Unavailable FAWWAD, CALVO H Attending Unavailable FAWWAD, CALVO H Primary Care Unavailable FAWWAD, CALVO H Admitting Unavailable KAY SOMMER Consulting Unavailable FAWWAD, CALVO H Consulting Unavailable FAWWAD, CALVO H Attending Unavailable DR JONAH GARCIA Consulting Unavailable FAWWAD, CALVO H Primary Care Unavailable FAWWAD, CALVO H Admitting Unavailable FAWWAD, CALVO H Consulting Unavailable FAWWAD, CALVO H Consulting Unavailable FAWWAD, CALVO H Primary Care Unavailable FAWWAD, CALVO H Attending Unavailable FAWWAD, CALVO H Admitting Unavailable FAWWAD, CALVO H Consulting Unavailable FAWWAD, CALVO H Attending Unavailable FAWWAD, CALVO H Admitting Unavailable FAWWAD, CALVO H Primary Care Unavailable FAWWAD, CALVO H Attending Unavailable FAWWAD, CALVO H Admitting Unavailable FAWWAD, CALVO H Primary Care Unavailable ZIDR JONAH CABALLERO Consulting Unavailable FAWWAD, CALVO H Consulting Unavailable FAWWAD, CALVO H Consulting Unavailable FAWWAD, CALVO H Attending Unavailable FAWWAD, CALVO H Admitting Unavailable FAWWAD, CALVO H Primary Care Unavailable FAWWAD, CALVO Primary Care Unavailable Jose Francisco Buck Referring Unavailable Jose Francisco Buck Attending Unavailable Jose Francisco Buck Admitting Unavailable Dr. Mily Marlow Referring Unavaila ble Dr. Mily Marlow Attending Unavaila ble UNKNOWN, PCP Primary Care Unavailable MD [place] Primary Care Provider [phone] MD Agustin Nj Attending Provider NONE, XXXX Primary Care Physician Unavailab Agustin June Admitting Unavailable Agustin Nj Attending Unavailable Fawwad, Calvo Primary Care Unavailable Fawwad, Calvo Unavailable Unavailable Unavailable Jairo Tapia DO Primary Care Provider JUSTIN MCGOWAN Referring Unavailable NAYLA, JAIRO Primary Care Unavailable JUSTIN MCGOWAN S Admitting Unavailable JUSTIN MCGOWAN Attending Unavailable VANESSA REED Consulting Unavailable NAYLA, JAIRO Primary Care Unavailable NAYLA, JAIRO Primary Care Unavailable MCGOWAN, JUSTIN S Referring Unavailable NAYLA, JAIRO Primary Care Unavailable MCGOWAN, JUSTIN S Referring Unavailable MCGOWAN, JUSTIN S Referring Unavailable NAYLA, JAIRO Primary Care Unavailable UNKNOWN, PCP Primary Care Unavailable Shawn Marlow Attending Unavailable UNKNOWN, PCP Primary Care Unavailable Shawn Marlow Attending Unavailable SHAIKH GROVE Attending Unavailable LAUREN SHETH Attending Unavailable Linden METAL FABRICATING INSPECTOR-SOCIAL SERVICES SPECIALIST, Linh Nichols Attending U christiano Simpson MD, Claudia Hall Admitting Jennifer Simpson MD, Claudia Hall Attending Starla Sheppard Consulting Unavailable Rubina WATERMAN, Johnny Pearson Consulting Unavailable Justin Mcgowan MD Consulting Unavailable Linden METAL FABRICATING INSPECTOR-SOCIAL SERVICES SPECIALIST, Linh Nichols Attending U christiano Beaulieu MD, Jose Francisco Coates Attending Unavaila ble Linden METAL FABRICATING INSPECTOR-SOCIAL SERVICES SPECIALIST, Linh Nichols Attending U navailable Linden METAL FABRICATING INSPECTOR-SOCIAL SERVICES SPECIALIST, Linh Nichols Attending U navailable Linden METAL FABRICATING INSPECTOR-SOCIAL SERVICES SPECIALIST, Linh Nichols Attending U christiano Cespedes MD, Johnny Pearson Attending Unavailable Linden MILLER-SOCIAL SERVICES SPECIALIST, Linh Nichols Attending U christiano Cespedes MD, Johnny Pearson Attending Unavailable Rubina WATERMAN, Johnny Pearson Attending Unavailable Linden METAL FABRICATING INSPECTOR-SOCIAL SERVICES SPECIALIST, Linh Nichols Attending U navailable Montero METAL FABRICATING INSPECTOR-SOCIAL SERVICES SPECIALIST, Lucía Delcid Attending Adina Beaulieu MD, Jose Francisco Coates Attending Unavaila ble Montero METAL FABRICATING INSPECTOR-SOCIAL SERVICES SPECIALIST, Lucía Delcid Attending Adina Cheatham APRN-SOCIAL SERVICES SPECIALIST, Linh Nichols Attending U navailable Linden METAL FABRICATING INSPECTOR-SOCIAL SERVICES SPECIALIST, Linh Nichols Attending U chrsitiano Allergies Allergy Classification Reported Allergen(s) Allergy Type Date of Onset Reaction(s) Facility (20 sources) Morphine; 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: [MORPHINE] Drug Allergy 05-25-20 14 Rash, Itching [facility] (5 sources) Penicillins; 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: [PENICILLINS] Drug Allergy 01-17-20 15 Itching [facility] (12 sources) Bee Sting; 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: [BEE STING] Allergy to substance 08-18-20 18 Swelling, Anaphylaxis [facility] (6 sources) Amoxicillin / Clavulanate Drug Allergy rash [employer] [facility] [employer] Other (10 sources) Bee/Wasp/Ant venom; 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: [Bee Stings] Propensity to adverse reactions Difficulty breathing (finding) [facility] (8 sources) cefdinir Drug Allergy Panic Attacks, Palpitations, SOB [employer] [employer] [facility] [employer] Other (6 sources) Penicillins Drug Allergy 01-17-20 15 Itching [facility] (1 source) Acetaminophen / HYDROcodone Drug Allergy [facility] (1 source) bee venom Drug allergy (disorder) 09-23-20 16 [facility] (1 source) Morphine Drug Allergy 05-12-20 14 [facility] (1 source) Penicillins Drug allergy (disorder) 01-17-20 15 [facility] (2 sources) Amoxicillin / Clavulanate Drug Allergy rash [employer] Other (1 source) Morphine Drug Allergy 04-14-20 23 [facility] Rep[facility] (1 source) No Known Medication Allergies; 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: [No Known Medication Allergies] Propensity to adverse reactions to drug (disorder) [facility] Medications Current Medications Medication Drug Class(es) Dates Sig (Normalized) Sig (Original) [id number] 200 actuat albuterol 0.09 mg/actuat metered dose inhaler (7 sources) beta2-Adrenergic Agonist take 2 puff(s) by inhalation every six hours as needed for wheezing albuterol sulfate HFA 108 (90 BASE) MCG/ACT inhaler Inhale 2 puffs into the lungs every 6 hours as needed for Wheezing 0 Active ProAir HFA 108 ( 90 Base) MCG/ACT 1- 2 puffs as needed Inhalation every 4 hrs Active amLODIPine 5 mg oral tablet (12 sources) Dihydropyridine Calcium Channel Catherine Start: 01-05-2023 take 1 tablet by mouth once daily amLODIPine 5 mg Tab 5 mg = 1 tab(s), Oral, Daily, Refills(s) 0, High blood pressure Start Date: 03/27/23 Status: Ordered Start: 04-26-2012 take 1 tablet by richard th once daily amLODIPine (NORVASC) 10 mg tablet Take 1 tablet by mouth once daily. 0 04/26/2012 Active Comment on above: Take 1 tablet by richard th once daily. atorvastatin 10 mg oral tablet (11 sources) HMG-CoA Reductase Inhibitor Start: 05-12-20 22 take 1 tablet by mouth once daily atorvastatin 10 mg Tab 10 mg = 1 tab(s), Oral, Daily, Refills(s) 0, High cholesterol Start Date: 03/27/23 Status: Ordered Comment on above: Take 10 mg by mouth once daily. Breo Ellipta 100-25 MCG/INH (3 sources) Start: 02-07-20 14 take 1 puff(s) by inhalation once daily Breo Ellipta 100-25 MCG/INH 1 puff Inhalation Once a day for 90 day(s) Jan, Active buprenorphine 8 mg / naloxone 2 mg sublingual tablet (4 sources) Partial Opioid Agonist, Opioid Antagonist buprenorphine-naloxo ne (SUBOXONE) 8-2 MG SUBL [address] tablet Place 8 mg under the tongue 2 times daily 0 Active busPIRone (11 sources) Start: 03-27-20 take 50 mg by mouth twice daily busPIRone 50 mg, Oral, BID, Refills(s) 0, Anxiety Start Date: 03/27/23 Status: Ordered Start: 08-11-2022 take 1 tablet by richard th every twelve hours busPIRone HCl - 30 MG Oral Tablet TAKE 1 TABLET BY MOUTH EVERY 12 HOURS Quantity: 60 Refills: 0 Ordered: 04-Jan-2023 DO Start : 11-Aug-2022 Active take 1 tablet by richard th three times daily busPIRone (BUSPAR) 15 mg tablet Take 15 mg by mouth three times daily. 0 Active Comment on above: Take 15 mg by mouth three times daily. canagliflozin 300 mg oral tablet (4 sources) Sodium-Glucose Cotransporter 2 Inhibitor take 300 mg by mouth once daily Canagliflozin (INVOKANA PO) Take 300 mg by mouth daily 0 Active clonazePAM 1 mg oral tablet (20 sources) Benzodiazepine Start: 08-16-20 End: 11-28-19 24 take 1 tablet by mouth three times daily clonazePAM (KLONOPIN) 1 mg tablet Indications: myoclonus Take 1 tablet by mouth three times daily for 180 days. 270 tablet 1 06/01/2023 11/28/2023 Active take 1 tablet by mouth twice edvin ly clonazePAM 0.5 MG (Schedule IV Drug) take 1 tablet by mouth twice a day Oral for 30 Active Comment on above: Take 1 tablet by [facility] three times daily for 90 days. Take 1 tablet by [facility] three times daily for 180 days. doxycycline monohydrate 100 mg oral tablet (6 sources) Tetracycline-cla ss Drug Start: 11-06-2022 End: 11-16-2022 take 1 tablet by mouth twice daily doxycycline monohydrate 100 mg tablet Take 1 tablet by mouth twice daily for 10 days. 20 tablet 0 11/06/2022 11/16/2022 Active Start: 04-09-2022 take 1 capsule by [facility] every twelve hours Doxycycline Hyclate 100 MG 1 capsule Orally Twice a day for 10 day(s) Mar, Active Comment on above: Take 1 tablet by [facility] twice daily for 10 days. famotidine 20 mg oral tablet (4 sources) Histamine-2 Receptor Antagonist take 1 tablet by mouth once daily famotidine (PEPCID) 20 MG tablet Take 20 mg by mouth daily 0 Active FLUoxetine 20 mg oral capsule (4 sources) Serotonin Reuptake Inhibitor take 2 capsules by mouth once daily FLUoxetine (PROZAC) 20 MG capsule Take 40 mg by mouth daily 0 Active fluticasone furoate 0.05 MG/ACTUAT Dry Powder Inhaler (1 source) Corticosteroid Start: 03-27-20 take 1 puff(s) by inhalation every twenty-four hours fluticasone furoate 50 mcg inhalation powder = 1 puff(s), Inhalation, q24hr, Refills(s) 0, Allergy symptoms Start Date: 03/27/23 Status: Ordered Fluticasone Furoate-Vilanterol (BREO ELLIPTA IN) (4 sources) take 1 puff(s) by inhalation twice daily Fluticasone Furoate-Vilanterol (BREO ELLIPTA IN) Inhale 1 puff into the lungs 2 times daily 0 Active gabapentin 300 mg oral capsule (19 sources) Anti-epileptic Agent Start: 03-02-20 23 take 2 capsules by mouth three times daily gabapentin 300 mg Cap 600 mg = 2 cap(s), Oral, TID, Refills(s) 0, Other (see comment) Start Date: 03/27/23 Status: Ordered take [address] [facility] three times daily gabapentin (NEURONTIN) 300 mg capsule Ta ke 300 mg by mouth three times daily. 0 Active take 3 capsules by [facility] every twenty-four hours Neurontin 100 mg 3 capsule Orally Once a day Active Comment on above: Take 300 mg by mouth three times daily. glimepiride 4 mg oral tablet (20 sources) Sulfonylurea Start: 3 take 1 tablet by mouth twice daily glimepiride 4 mg Tab 4 mg = 1 tab(s), Oral, BID, Refills(s) 0, High blood sugar Start Date: 03/27/23 Status: Ordered Start: 08-11-2022 take 1 tablet by richard th every twelve hours Glimepiride 4 MG Oral Tablet TAKE 1 TABLET BY MOUTH EVERY 12 HOURS Quantity: 60 Refills: 0 Ordered: 04-Jan-2023 DO Start : 11-Aug-2022 Active take 1 tablet by richard th once daily at breakfast glimepiride (AMARYL) 4 mg tablet Take 4 mg by mouth daily with breakfast. 0 Active Comment on above: Take 4 mg by mouth d aily with breakfast. hydroCHLOROthiazide 25 mg oral tablet (14 sources) Thiazide Diuretic take 1 tablet by mouth once daily hydrochlorothiazide (HYDRODIURIL) 25 MG tablet Take 25 mg by mouth daily. 0 Active Hydrochlorothiaz mj 12.5 mg capsule hydrochlorothiazide 12.5 mg capsule 0 Active Comment on above: hydrochlorothiazide 12.5 mg capsule levothyroxine sodium 0.125 mg oral capsule (20 sources) l-Thyroxine Start: 023 take 1 capsule by mouth once daily levothyroxine 125 mcg (0.125 mg) oral capsule 125 mcg = 1 cap(s), Oral, Daily, Refills(s) 0, Thyroid Start Date: 03/27/23 Status: Ordered levothyroxine (S YNTHROID) 75 MCG tablet Take 100 mcg by mouth Daily 0 Active Levothyroxine 11 2 mcg cap Take by mouth. 0 Active take [address] [facility] once daily before breakfast Levothyroxine Sodium 125 MCG Oral Capsul e TAKE 1 CAPSULE BY MOUTH EVERY MORNING BEFORE BREAKFAST ON EMPTY STOMACH Quantity: 0 Refills: 0 Ordered: 09-Apr-2023 DO Active take 1 tablet by mouth once aakash y Levothyroxine Sodium 100 MCG take 1 tablet by mouth once daily Oral for 30 Active Comment on above: Take by mouth. linagliptin 5 mg oral tablet (4 sources) Dipeptidyl Peptidase 4 Inhibitor take 5 mg by mouth once daily Linagliptin (TRADJENTA PO) Take 5 mg by mouth daily 0 Active lisinopril 20 mg oral tablet (20 sources) Angiotensin Converting Enzyme Inhibitor Start: 2 take 1 tablet by mouth once daily lisinopril 20 mg Tab 20 mg = 1 tab(s), Oral, Daily, Refills(s) 0, High blood pressure Start Date: 03/27/23 Status: Ordered take 2.5 mg by mouth once daily lisinopril (PRINIVIL;ZESTRIL) 40 MG tablet Take 2.5 mg by mouth daily 0 Active take 1 tablet by mouth once aakash y lisinopril (ZESTRIL, PRINIVIL) 10 mg tablet Take 10 mg by mouth once daily. 0 Active Comment on above: Take 10 mg by mouth once daily. loratadine 10 mg oral capsule (11 sources) Start: 03-27-2023 take 1 capsule by mouth once daily loratadine 10 mg oral capsule 10 mg = 1 cap(s), Oral, Daily, # 10 cap(s), Refills(s) 0, Allergy symptoms Start Date: 03/27/23 Status: Ordered Start: 02-02-2023 take 1 tablet by richard th once daily Loratadine 10 MG Oral Tablet TAKE 1 TABLET BY MOUTH DAILY Quantity: 30 Refills: 0 Ordered: 03-Feb-2023 DO Start : 02-Feb-2023 Active Comment on above: Take 10 mg by mouth once daily. lurasidone hydrochloride 20 mg oral tablet (4 sources) Atypical Antipsychotic take 1 tablet by mouth once daily lurasidone (LATUDA) 20 MG TABS tablet Take 20 mg by mouth daily 0 Active metFORMIN hydrochloride 850 mg oral tablet (16 sources) Biguanide Start: 2 take 1 tablet by mouth twice daily metformin 850 mg Tab 850 mg = 1 tab(s), Oral, BID, Refills(s) 0, High blood sugar Start Date: 03/27/23 Status: Ordered Start: 10-01-2014 take 1 tablet by richard th twice daily metFORMIN (GLUCOPHAGE) 1,000 mg tablet Take 1 tablet by mouth twice daily. 60 tablet 0 10/01/2014 Active Comment on above: Take 1 tablet by richard th twice daily. metoprolol tartrate 50 mg oral tablet (4 sources) beta-Adrenergic Catherine take 1 tablet by mouth twice daily metoprolol (LOPRESSOR) 50 MG tablet Take 50 mg by mouth 2 times daily 0 Active Multiple Vitamins-Minerals (THERAPEUTIC MULTIVITAMIN-MINERAL S) tablet (4 sources) take 1 tablet by mouth once daily Multiple Vitamins-Minerals (THERAPEUTIC MULTIVITAMIN-MINERA LS) tablet Take 1 tablet by mouth daily 0 Active omeprazole 40 mg delayed release oral capsule (4 sources) Proton Pump Inhibitor omeprazole (PRILOSEC) 40 MG capsule Take 40 mg by mouth as needed 0 Active PARoxetine mesylate 40 mg oral tablet (4 sources) Serotonin Reuptake Inhibitor PARoxetine HCl (PAXIL PO) Take by mouth Patient takes 40 mg at night and 20 mg daily 0 Active prazosin 1 mg oral capsule (11 sources) alpha-Adrenergic Catherine Start: 08-11-2022 take 1 capsule by mouth once daily prazosin 1 mg Cap 1 mg = 1 cap(s), Oral, Daily, Refills(s) 0, Depression Start Date: 03/27/23 Status: Ordered take 1 capsule by mouth twice da jose antonio prazosin (MINIPRESS) 1 mg cap Take 1 mg by mouth twice daily. 0 Active Comment on above: Take 1 mg by mouth t wice daily. predniSONE 10 mg oral tablet (3 sources) Start: predniSONE 10 MG 4 tabs x 3 days, 2 tabs x 3 days, 1 tab x 3 days, then stop. Orally Once a day for 9 days Sep, Active ProAir HFA 108 (90 Base) MCG/ACT (5 sources) ProAir HFA 108 ( 90 Base) MCG/ACT 1- 2 puffs as needed Inhalation every 4 hrs Active tamsulosin hydrochloride 0.4 mg oral capsule (4 sources) alpha-Adrenergic Catherine take 1 capsule by mouth once daily tamsulosin (FLOMAX) 0.4 MG capsule Take 0.4 mg by mouth daily 0 Active 1 ml testosterone cypionate 200 mg/ml injection (4 sources) Androgen testosterone cypionate (DEPOTESTOTERONE CYPIONATE) 200 MG/ML injection Inject 200 mg into the muscle every 14 days 0 Active 10 actuat tiotropium 0.0025 mg/actuat inhalation spray (20 sources) Anticholinergic Start: 023 take 1 puff(s) by inhalation once daily Spiriva Respimat 10 ACT 2.5 mcg/inh inhalation aerosol 1 puff, Inhalation, Daily, Refills(s) 0, COPD Start Date: 03/27/23 Status: Ordered Start: 05-02-2015 take 2 puff(s) by in halation once daily Spiriva Respimat 2.5 MCG/ACT 2 puffs Inhalation Once a day for 90 day(s) Apr, Active take 1 capsule by in halation once daily tiotropium (SPIRIVA) 18 MCG inhalation capsule Inhale 18 mcg into the lungs daily 0 Active tiotropium bromi de (SPIRIVA RESPIMAT) 2.5 mcg/actuation inhaler Inhale as instructed. 0 Active Comment on above: Inhale as instructed . traMADol hydrochloride 50 mg oral tablet (3 sources) Opioid Agonist Start: 3 take 1-2 tablets by mouth every four hours as needed for pain Ultram 50 mg Tab See Instructions, 1-2 tabs po q4hr PRN pain Duration 7 days, # 50 tab(s), Refills(s) 2, Pharmacy: [id number], 187.5, cm, 03/27/23 9:49:00 EDT, Height/Length Dosing, 146.5, kg, 03/27/23 9:49:00 EDT, Weight Dosing Start Date: 04/10/23 Status: Ordered Start: 03-02-2023 take 1 tablet by richard every six hours as needed traMADol HCl - 50 MG Oral Tablet TAKE 1 TABLET BY MOUTH EVERY 6 HOURS NEEDED Quantity: 20 Refills: 0 Ordered: 02-Mar-2023 DO Start : 02-Mar-2023 Active venlafaxine 75 mg oral tablet (11 sources) Serotonin and Norepinephrine Reuptake Inhibitor Start: 03-27-2023 take 1 tablet by mouth once daily venlafaxine 75 mg Tab 75 mg = 1 tab(s), Oral, Daily, Refills(s) 0, Depression Start Date: 03/27/23 Status: Ordered Start: 02-03-2023 take [address] [facility] every twenty-four hours Venlafaxine HCl ER 75 MG Oral Capsule Extended Release 24 Hour Quantity: 30 Refills: 0 Ordered: 03-Feb-2023 DO Start : 03-Feb-2023 Active take 1 capsule by mouth once edvin ly venlafaxine ER (EFFEXOR XR) 150 mg 24 hr capsule Take 150 mg by mouth once daily. 0 Active Comment on above: Take 150 mg by mouth once daily. Completed/Discontinued Medications Medication Drug Class(es) Dates Sig (Normalized) Sig (Original) acetaminophen 325 mg / oxyCODONE hydrochloride 5 mg oral tablet (8 sources) Opioid Agonist Start: 02-12-2022 take 1 tablet by mouth every eight hours as needed for pain oxyCODONE-acetam inophen (PERCOCET) 5-325 mg tablet Indications: Otalgia, right Take 1 tablet by mouth every 8 hours as needed for pain. 3 tablet 0 02/12/2022 Active Comment on above: Take 1 tablet by [facility] every 8 hours as needed for pain. aspirin 81 mg chewable tablet (10 sources) Platelet Aggregation Inhibitor, Nonsteroidal Anti-inflammatory Drug Start: 06-08-2014 take 1 tablet by mouth twice daily aspirin 81 mg chewable tablet Take 1 tablet by mouth twice daily. 56 tablet 0 06/08/2014 Active Comment on above: Take 1 tablet by [facility] twice daily. azelastine hydrochloride 0.137 mg/actuat metered dose nasal spray (4 sources) Histamine-1 Receptor Antagonist Start: 10-31-2022 take 1 spray(s) nasal route twice daily azelastine (ASTELIN, ASTEPRO) 0.1% nasal spray 1 spray in each nostril twice daily for 30 days 15 mL 3 10/31/2022 Active Comment on above: 1 spray in each nost ril twice daily for 30 days cloNIDine hydrochloride 0.1 mg oral tablet (10 sources) Central alpha-2 Adrenergic Agonist Start: 07-19-2019 cloNIDine HCl (CATAPRES) 0.1 mg tablet 0 07/19/2019 Active fluticasone / vilanterol (16 sources) Corticosteroid, beta2-Adrenergic Agonist Start: 01-26-2016 take 1 [IU] by inhalation once daily Breo Ellipta 100 mcg-25 mcg inhalation powder 2 puff(s), Inhalation, Daily, 1 unit(s), Refill(s) 2, 30 dose unit, COPD Start Date: 01/26/16 Status: Ordered Start: 02-06-2014 take 1 puff(s) by in halation once daily Breo Ellipta 100-25 MCG/ACT 1 puff Inhalation Once a day for 30 days Jan, Active fluticasone-serafin nterol (BREO ELLIPTA) 100-25 mcg/dose inhaler Inhale 1 Inhalation as instructed once daily. 0 Active Comment on above: Inhale 1 Inhalation as instructed once daily. hydrOXYzine hydrochloride 50 mg oral tablet (1 source) Antihistamine Start: 2022 hydrOXYzine HCl - 50 MG Oral Tablet Quantity: 90 Refills: 0 Ordered: 02-Feb-2023 DO Start : 02-Feb-2023 Active meloxicam 15 mg oral tablet (10 sources) Nonsteroidal Anti-inflammatory Drug Start: 2018 take 1 tablet by mouth once daily meloxicam (MOBIC) 15 mg tablet Take 1 tablet by mouth once daily. 30 tablet 0 02/15/2019 Active Comment on above: Take 1 tablet by richard th once daily. methylPREDNISolone (2 sources) Corticosteroid Start: 2022 methylPREDNISolone (MEDROL DOSE-PACK) 4 mg Dose-Pack Indications: Fluid level behind tympanic membrane of right ear As Instructed per package 21 tablet 0 01/27/2023 Active Comment on above: As Instructed per pa adrian multivitamin tablet (10 sources) take 1 tablet by mouth once daily multivitamin tablet Take 1 tablet by mouth once daily. 0 Active Comment on above: Take 1 tablet by richard th once daily. ofloxacin 3 mg/ml otic solution (19 sources) Quinolone Antimicrobial Start: 2020 ofloxacin (FLOXIN) 0.3 % otic solution Use 3 Drops in the ears twice daily. 10 mL 3 07/12/2021 Active Start: 02-24-2020 take 3 drop(s) into the eye(s) twice daily ofloxacin (OCUFLOX) 0.3 % ophthalmic solution 3 drops to right ear twice daily, use concurrently with Dexamethasone 1 Bottle 3 02/24/2020 Active Comment on above: 3 drops to right ear twice daily, use concurrently with Dexamethasone Use 3 Drops in the e ars twice daily. Triamcinolone (14 sources) Corticosteroid Start: 09-07-2019 Kenalog -40 mg 20 Aug, 2019 40 mg Start: 05-23-2019 Kenalog -40 mg May, 40 mg vortioxetine 20 mg oral tablet (10 sources) vortioxetine (TR INTELLIX) 20 mg tablet Take by mouth. 0 Active Comment on above: Take by mouth. zolpidem tartrate 10 mg oral tablet (18 sources) gamma-Aminobutyric Acid-ergic Agonist zolpidem (AMBIEN) 10 mg tab Take by mouth at bedtime as needed. 0 Active Comment on above: Take by mouth at bed time as needed. Problems Active Problems Problem Classification Problem Date Documented Da te Episodic/Chronic Anxiety disorders (17 sources) Anxiety; 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: [Anxiety disorder, unspecified] Onset: 10-28-2017 10-24-2019 Chronic Bacterial infection; unspecified site (1 source) Personal history of Methicillin resistant Staphylococcus aureus infection; 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: [PERS HX METHICILLIN RSIST STAPH INF] Onset: 02-17-2023 Episodic Chronic obstructive pulmonary disease and bronchiectasis (20 sources) Chronic obstructive lung disease; 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: [Chronic obstructive pulmonary disease, unspecified] Onset: 10-28-2017 Resolved: 08-28-2021 10-24-2019 Chronic Congestive heart failure; nonhypertensive (1 source) Heart failure, unspecified; 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: [HEART FAILURE UNSPECIFIED] Onset: 02-17-2023 Chronic Diabetes mellitus with complications (20 sources) Type 2 diabetes mellitus; 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: [Type 2 diabetes mellitus with diabetic neuropathy, unspecified] Onset: 01-29-2018 01-29-2018 Chronic Diabetes mellitus without complication (11 sources) Type 2 diabetes mellitus without complications; 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: [Diabetes mellitus] Onset: 12-22-2022 Chronic Disorders of lipid metabolism (12 sources) Hyperlipidemia; 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: [Hyperlipidemia, unspecified] Onset: 12-23-2022 08-24-2012 Chronic Esophageal disorders (1 source) Gastro-esophageal reflux disease without esophagitis; 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: [GERD WITHOUT ESOPHAGITIS] Onset: 02-17-2023 Chronic Essential hypertension (18 sources) Hypertensive disorder; 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: [Essential (primary) hypertension] Onset: 12-23-2022 05-19-2011 Chronic Gout and other crystal arthropathies (10 sources) Gout; 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: [Gout, unspecified] 08-24-2012 Chronic Hypertension with complications and secondary hypertension (1 source) Hypertensive heart disease with heart failure; 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: [HTN HEART DISEASE W/HEART FAIL] Onset: 02-17-2023 Chronic Immunizations and screening for infectious disease (4 sources) Methicillin resistant staphylococcus aureus carrier; 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: [Carrier or suspected carrier of Methicillin resistant Staphylococcus aureus] Onset: 06-10-2023 Episodic Menopausal disorders (1 source) Hormone replacement therapy; 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: [HORMONE REPLACEMENT THERAPY] Onset: 02-17-2023 Episodic Mood disorders (11 sources) Depressive disorder; 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: [Depressive disorder] Onset: 10-28-2017 10-24-2019 Chronic Osteoarthritis (20 sources) Arthritis of wrist; 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: [Primary osteoarthritis, unspecified wrist] Onset: 11-10-2012 11-10-2012 Chronic Other aftercare (1 source) Other chcf (current) drug therapy; 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: [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] Onset: 02-17-2023 Episodic Other aftercare (2 sources) 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; 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: [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] Onset: 06-10-2023 Episodic Other bone disease and musculoskeletal deformities (10 sources) History of amputation of right foot; 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: [Acquired absence of right foot] Onset: 01-29-2018 09-02-2019 Chronic Other bone disease and musculoskeletal deformities (1 source) Acquired absence of other right toe(s); 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: [ACQUIRED ABSENCE OTHER RIGHT TOES] Onset: 02-17-2023 Episodic Other circulatory disease (1 source) H/O: hypertension 01-26-2016 Episodic Other connective tissue disease (1 source) Presence of left artificial knee joint; 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: [PRESENCE LEFT ARTIFICIAL KNEE JOINT] Onset: 02-17-2023 Chronic Other connective tissue disease (1 source) Presence of right artificial knee joint; 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: [Presence of right artificial knee joint] Onset: 06-25-2023 Chronic Other connective tissue disease (4 sources) Pain in left leg; 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: [PAIN IN LEFT LEG] Onset: 01-28-2023 Episodic Other ear and sense organ disorders (15 sources) Mixed conductive AND sensorineural hearing loss; 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: [Mixed conductive and sensorineural hearing loss, unilateral, right ear with restricted hearing on the contralateral side] Onset: 04-07-2018 04-07-2018 Chronic Other ear and sense organ disorders (11 sources) Bilateral hearing loss; 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: [Sensorineural hearing loss, unilateral, left ear, with restricted hearing on the contralateral side] Onset: 04-07-2018 04-07-2018 Chronic Other ear and sense organ disorders (1 source) Mixed conductive and sensorineural hearing loss, unilateral, right ear with restricted hearing on the contralateral side; 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: [Mixed conductive and sensorineural hearing loss of right ear with restricted hearing of left ear] Onset: 04-07-2018 Chronic Other ear and sense organ disorders (1 source) Sensorineural hearing loss, unilateral, left ear, with restricted hearing on the contralateral side; 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: [Sensorineural hearing loss (SNHL) of left ear with restricted hearing of right ear] Onset: 04-07-2018 Chronic Other ear and sense organ disorders (1 source) Unspecified hearing loss, left ear; 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: [UNSPECIFIED HEARING LOSS LEFT EAR] Onset: 02-17-2023 Chronic Other ear and sense organ disorders (14 sources) Clicking tinnitus; 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: [Tinnitus, unspecified ear] Onset: 07-10-2021 Episodic Other ear and sense organ disorders (1 source) Otalgia, right ear; 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: [Otalgia, unspecified] Episodic Other ear and sense organ disorders (2 sources) Impacted cerumen in left ear; 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: [Impacted cerumen, left ear] Episodic Other infections; including parasitic (1 source) H/O: infectious disease 03-27-2023 Episodic Comment on above: R toe Other nervous system disorders (10 sources) Carpal tunnel syndrome; 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: [Carpal tunnel syndrome, unspecified upper limb] Onset: 10-09-2014 10-09-2014 Chronic Other nervous system disorders (1 source) Other chronic pain; 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: [OTHER CHRONIC PAIN] Onset: 02-17-2023 Chronic Other non-traumatic joint disorders (4 sources) Pain in right knee; 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: [PAIN IN RIGHT KNEE] Onset: 02-15-2023 Episodic Other nutritional; endocrine; and metabolic disorders (10 sources) Obesity; 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: [Obesity, unspecified] Onset: 04-16-2018 10-24-2019 Chronic Other nutritional; endocrine; and metabolic disorders (1 source) Severe obesity; 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: [Morbid obesity] Chronic Other screening for suspected conditions (not mental disorders or infectious disease) (1 source) Imaging of thorax abnormal; 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: [Abnormal findings on diagnostic imaging of other specified body structures] Chronic Other screening for suspected conditions (not mental disorders or infectious disease) (14 sources) Other specified abnormal findings of blood chemistry; 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: [Other abnormal blood chemistry] Onset: 12-01-2012 Episodic Other upper respiratory infections (5 sources) Chronic sinusitis; 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: [Other chronic sinusitis] Onset: 10-31-2022 Chronic Otitis media and related conditions (1 source) Finding of fluid behind tympanic membrane; 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: [Unspecified nonsuppurative otitis media, right ear] Episodic Residual codes; unclassified (4 sources) Procedure and treatment not carried out due to patient leaving prior to being seen by health care provider; 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: [PROC AND TX NOT CARRIED OUT PT LEAVE] Onset: 02-24-2023 Episodic Residual codes; unclassified (1 source) Acquired absence of other specified parts of digestive tract; 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: [ACQ ABSENCE OTH PART DIGESTV TRACT] Onset: 02-17-2023 Episodic Residual codes; unclassified (2 sources) Personal history of other drug therapy; 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: [Personal history of other drug therapy] Onset: 06-10-2023 Episodic Screening and history of mental health and substance abuse codes (2 sources) Personal history of nicotine dependence; 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: [Ex-smoker] Onset: 02-17-2023 Episodic Comment on above: quit 40 years ago; Spondylosis; intervertebral disc disorders; other back problems (1 source) Other intervertebral disc degeneration, lumbar region; 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: [OTH IV DISC DEGEN LUMBAR REGION] Onset: 02-02-2023 Chronic Thyroid disorders (13 sources) Hypothyroidism; 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: [Hypothyroidism, unspecified] Onset: 02-17-2023 03-27-2023 Chronic Unclassified (1 source) LOW BACK PAIN, UNSPECIFIED; 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: [LOW BACK PAIN, UNSPECIFIED] Onset: 02-02-2023 Past or Other Problems Problem Classification Problem Date Documented Date Episodic/Chronic Complication of device; implant or graft (10 sources) Infection AND/OR inflammatory reaction due to internal prosthetic device, implant AND/OR graft; 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: [Infection and inflammatory reaction due to other internal prosthetic devices, implants and grafts, initial encounter] Onset: 05-08-2014 05-08-2014 Episodic Fluid and electrolyte disorders (4 sources) Hypo-osmolality and hyponatremia; 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: [HYPO-OSMOLALITY AND HYPONATREMIA] Onset: 08-14-2022 Episodic Infective arthritis and osteomyelitis (except that caused by tuberculosis or sexually transmitted disease) (10 sources) Knee pyogenic arthritis; 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: [Pyogenic arthritis, unspecified] Onset: 02-23-2012 Episodic Other aftercare (5 sources) Drug therapy finding; 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] Onset: 12-01-2012 Episodic Other connective tissue disease (10 sources) Metatarsalgia; 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: [Metatarsalgia, unspecified foot] Onset: 01-23-2014 01-23-2014 Episodic Other connective tissue disease (4 sources) Other specified soft tissue disorders; 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: [OTHER SPEC SOFT TISSUE DISORDERS] Onset: 04-28-2022 Episodic Other ear and sense organ disorders (10 sources) Tinnitus arising from tensor tympani; 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: [Tinnitus, left ear] Onset: 04-07-2018 04-07-2018 Episodic Other ear and sense organ disorders (10 sources) Tinnitus of right ear; 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: [Tinnitus, right ear] Onset: 04-07-2018 04-07-2018 Episodic Other ear and sense organ disorders (1 source) Tinnitus, unspecified ear; 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: [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] Onset: 07-10-2021 Episodic Other ear and sense organ disorders (1 source) Impacted cerumen, left ear; 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: [Impacted cerumen of left ear] Onset: 02-27-2022 Episodic Other infections; including parasitic (10 sources) Personal history of other infectious and parasitic diseases; 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: [Personal history of other infectious and parasitic diseases] Onset: 12-01-2012 Episodic Other lower respiratory disease (10 sources) Nodule of lung; 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: [Solitary pulmonary nodule] Onset: 12-01-2012 Episodic Other lower respiratory disease (4 sources) Respiratory disorder, unspecified; 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: [RESPIRATORY DISORDER UNSPECIFIED] Onset: 10-13-2022 Episodic Other nervous system disorders (9 sources) Postoperative pain ; 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: [Other acute postprocedural pain] Onset: 07-12-2021 07-12-2021 Episodic Other non-traumatic joint disorders (10 sources) Pain of left wrist; 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: [Pain in left wrist] Onset: 10-09-2014 10-09-2014 Episodic Other non-traumatic joint disorders (8 sources) Pain of joint of right lower leg; 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: [Pain in right knee] Onset: 01-29-2018 01-29-2018 Episodic Other non-traumatic joint disorders (4 sources) Pain in left knee; 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: [PAIN IN LEFT KNEE] Onset: 06-19-2022 Episodic Other non-traumatic joint disorders (2 sources) Pain of right lower leg; 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: [Pain in right knee] Onset: 01-29-2018 01-29-2018 Episodic Other upper respiratory infections (7 sources) Acute frontal sinusitis; 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: [Acute recurrent frontal sinusitis] Onset: 10-31-2022 Episodic Pneumonia (except that caused by tuberculosis or sexually transmitted disease) (10 sources) Pneumonia; 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: [Pneumonia, unspecified organism] Onset: 12-01-2012 Episodic Residual codes; unclassified (5 sources) Patient encounter status; 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: [Encounter for prophylactic measures, unspecified] Onset: 12-01-2012 Episodic Residual codes; unclassified (1 source) Other specified postprocedural states; 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: [Status post tympanoplasty] Onset: 02-27-2022 Episodic Spondylosis; intervertebral disc disorders; other back problems (10 sources) Chronic back pain ; 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: [Dorsalgia, unspecified] Onset: 10-28-2017 10-24-2019 Episodic Results Test Name Value Interpretation Reference Range Facility Long-term Care Office/Clinic Noteon 09-01-2023 Long-term Care Office/Clinic Note Chief Complaint skilled pt at [facility] seen to d/c 09/03 with Med 1 NEY martinez f/U PCP Dr Grove History of Present Illness Joie Lu is a 68 year old male skilled patient of the [facility] being seen today for facility discharge visit. Noted last hospitalization at [facility] from 07/21/23-07/30/23. Pertinent past medical history includes: Type 2 diabetes mellitus, hypertension, gout, depression with anxiety, COPD with emphysema. Originally underwent right knee replacement 3 weeks prior and presented to outside hospital for increasing pain with edema in which she was transferred to [facility] for further eval. Patient found to have postoperative infection of right total knee in which revision was completed 07/22. Postoperative course remained generally uncomplicated patient placed on IV antibiotic therapy and pain remained well controlled with oral medications. He was then discharged to skilled facility for further rehabilitation and monitoring. Code status: Full He continued to progress well at facility with completion of IV antibiotic therapy and wound vac. Remained ambulatory with therapy and arranged to discharge home with home care services and PCP/specialist outpatient followup. Patient seen today for discharge visit. On exam patient sitting up in chair pleasant alert oriented no acute distress. Vital signs remained stable. Per facility staff provider visit assessment form patient remains ambulatory with walker pain well-controlled with oral medications. Appetite remains at baseline eating approximately 75 to 100% of meals. Sleep at baseline. No new or worsening skin concerns or behavioral disturbances. He continues to take medications as ordered with no further needs or concerns reported at this time. Discharge discussion with patient all questions and concerns addressed during this visit. Review of Systems Constitutional: denies changes in appetite, sleep no weight loss + weakness Eye: denies vision changes no drainage EOM intact HENT: No edema, ulcers, or sinus tenderness PULMONARY: negative for shortness of breath, cough, wheezing CARDIAC: negative for chest pain, palpitations, murmur or edema GI: negative for nausea vomiting changes in bowel movements, or masses MUSCULO: Negative for Joint Swelling or tenderness + knee pain ENDO: negative for Obesity, Cachexia NEURO: negative for change in mental status, headaches, vision changes, dizziness, tremors PSYCH: negative for anxiety depression or acute mood changes SKIN: negative for skin lesions, rashes no bruising Physical Exam Vitals & Measurements T: 36.5 ?C (Oral) HR: 77 (Peripheral) RR: 20 BP: 110/69 SpO2: 95% WT: 144.15 kg Physical Exam CONSTITUTIONAL: no apparent distress, frail SKIN: clean dry intact negative for lesions, jaundice, hives or petechiae EYES: pupils are equally round, extraocular movements intact HENT: normocephalic, atraumatic NECK: Nontender and supple PULMONARY: clear to auscultation without wheezes, rhonchi, or rales, relaxed effort on room air CARDIOVASCULAR: regular rate, rhythm, normal S1 and S2. No murmurs or gallop. negative for edema GASTROINTESTINAL: bowel sounds active x4 soft, non-tender, non-distended MUSCULOSKELETAL: Extremities are nontender to palpation and have no gross deformity. right knee well approximated, clean dry intact negative for warmth or tenderness sensation intact distal pedal pulses intact NEUROLOGIC: alert, CN grossly intact, equal hand grasps, sensation grossly intact A&Ox3 PSYCHIATRIC: normal mood and affect, thought process is clear able to answer questions cooperative Additional Vitals No qualifying data available. Assessment/Plan 1. Status post right knee replacement Follow-up Ortho outpatient Meloxicam 7.5 mg daily Neurontin 600 mg 3 times daily Oxycodone 5 mg TID PRN weightbearing as tolerated 2. Anxiety Mood stable, appetite and sleep at baseline Continues on venlafaxine 150 mg daily Hydroxyzine 50 mg 3 times daily Clonazepam 1 mg 3 times daily 3. Type 2 diabetes mellitus Last A1c 5.8% Continue glimepiride 4 mg twice daily Metformin 850 mg twice daily [place] diabetic diet 4. Hypertension Stable, follow up PCP outpatient Continues on amlodipine 5 mg daily Atorvastatin 10 mg daily Lisinopril 20 mg daily Prazosin 1 mg daily 5. COPD with emphysema Stable, continues on room air without difficulty Continues Breo Ellipta 100-25 mcg daily Fluticasone 1 spray each nostril daily Loratadine 10 mg daily Medical Decision Making I have reviewed the patient?s medication list for medication interactions/contraind ications: yes Time Spent with the Patient I have personally spent [45] minutes on this date, directly related to today's patient visit, including pre and post visit work, for this date of service. Time listed does not include time spent on separately billable services. Physician Comments Patient to discharge home with [facility] services Social (more content not included)... Normal [facility] .eGFRon 08-31-2023 GFR/1.73 sq M.predicted MDRD (S/P/Bld) [Vol rate/Area] mL/min/{1.73_m2} Normal >=60 [facility] Comment on above: Result Comment: [facility] have implemented the eGFR calculation approach that does not have a coefficient for race and that conforms to the NKF-ASN Task Force Recommendations. Stages of Chronic Kidney Disease GFR Stage 3a Mild to moderate loss of kidney function 59 to 45 Stage 3b Moderate to severe loss of kidney function 44 to 33 Stage 4 Severe loss of kidney function 29 to 15 Stage 5 Kidney failure Less than 15 GFR calculated using the CKD-Epi Creatinine Equation (2020): eGFR = 142 X min(SCr/?, 1)? X max(SCr /?, 1)-1.200 X 0.9938Age X 1.012 [if female] Abbreviations/Units: eGFR (estimated glomerular filtration rate) = mL/min/1.73 m2 SCr (standardized serum creatinine) = mg/dL ? = 0.7 (females) or 0.9 (males) ? = -0.241 (females) or -0.302 (males) min = indicates the minimum of SCr/? or 1 max = indicates the maximum of SCr/? or 1 Age = years Performed By: #### E GFR #### [place] [id number] CBC w/ Diffon 08-31-2023 Erythrocyte distribution width (RBC) [Ratio] 13.9 % Normal 11.6-14.8 [facility] Comment on above: Performed By: #### E GFR #### [place] [id number] Hematocrit (Bld) [Volume fraction] 36.6 % Low 41.0-53.0 [facility] Comment on above: Performed By: #### E GFR #### [place] [id number] Hemoglobin (Bld) [Mass/Vol] 12.2 g/dL Low 13.5-17.5 [facility] Comment on above: Performed By: #### E GFR #### [address] [address] MCH (RBC) [Entitic mass] 30.1 pg Normal 27.0-35.0 [facility] Comment on above: Performed By: #### E GFR #### [place] [id number] MCHC 33.3 % Normal 31.0-37.0 [facility] Comment on above: Performed By: #### E GFR #### [address] [address] MCV (RBC) [Entitic vol] 90.4 fL Normal 80.0-100.0 [facility] Comment on above: Performed By: #### E GFR #### [place] [id number] Platelet 138 x10*3/mcL Low 150-450 [facility] Comment on above: Performed By: #### E GFR #### [address] [address] Platelet mean volume (Bld) [Entitic vol] 8.4 fL Normal 6.7-10.6 [facility] Comment on above: Performed By: #### E GFR #### [address] [address] RBC 4.05 x10*6/mcL Low 4.30-5.80 [facility] Comment on above: Performed By: #### E GFR #### [address] [address] WBC 6.9 x10*3/mcL Normal 4.5-11.0 [facility] Comment on above: Performed By: #### E GFR #### [address] [address] CMPon 08-31-2023 Albumin [Mass/Vol] 3.7 g/dL Normal 3.2-4.9 [facility] Comment on above: Performed By: #### C OMP ####[address] [address] Albumin/Globulin [Mass ratio] 1.2 {ratio} Normal 1.1-2.2 [facility] Comment on above: Performed By: #### C OMP ####[address] [address] Alk Phos 83 IU/L Normal 32-91 [facility] Comment on above: Performed By: #### C OMP ####[address] [address] ALT [Catalytic activity/Vol] 14 U/L Low 17-63 [facility] Comment on above: Performed By: #### C OMP ####[address] [address] Anion gap [Moles/Vol] 11 mmol/L Normal 7-17 [facility] Comment on above: Performed By: #### C OMP ####[address] [address] AST [Catalytic activity/Vol] 16 U/L Normal 15-41 [facility] Comment on above: Performed By: #### C OMP ####[address] [address] Bili Total 0.3 mg/dL Normal 0.3-1.2 [facility] Comment on above: Performed By: #### C OMP ####[address] [address] Calcium [Mass/Vol] 8.8 mg/dL Normal 8.5-10.3 [facility] Comment on above: Performed By: #### C OMP ####[address] [address] Chloride [Moles/Vol] 99 mmol/L Normal 98-110 [facility] Comment on above: Performed By: #### C OMP ####[address] [address] CO2 [Moles/Vol] 26 mmol/L Normal 22-32 [facility] Comment on above: Performed By: #### C OMP ####[address] [address] Creatinine [Mass/Vol] 0.78 mg/dL Normal 0.61-1.24 [facility] Comment on above: Performed By: #### C OMP ####[address] [address] Glucose [Mass/Vol] 211 mg/dL High 70-99 [facility] Comment on above: Performed By: #### C OMP ####[address] [address] Potassium [Moles/Vol] 4.3 mmol/L Normal 3.4-4.8 [facility] Comment on above: Performed By: #### C OMP ####[address] [address] Protein [Mass/Vol] 6.7 g/dL Normal 6.5-8.1 [facility] Comment on above: Performed By: #### C OMP ####[address] [address] Sodium [Moles/Vol] 132 mmol/L Low 133-142 [facility] Comment on above: Performed By: #### C OMP ####[address] [address] Urea nitrogen [Mass/Vol] 19 mg/dL Normal 8-26 [facility] Comment on above: Performed By: #### C OMP ####[address] [address] Urea nitrogen/Creatinine [Mass ratio] 24.4 mg/mg High 10.0-20.0 [facility] Comment on above: Performed By: #### C OMP ####[address] [address] CRPon 08-31-2023 CRP 0.61 mg/dL Normal 0.00-0.75 [facility] Comment on above: Result Comment: CRP measurement is useful for assessment of non-specific INFLAMMATORY RESPONSE to infection or injury AND is a sensitive MARKER of ACUTE INFLAMMATION including CARDIAC RISK ASSESSMENT. CARDIAC patients with elevated CRP are POTENTIALLY at a HIGHER RISK OF FUTURE CARDIAC EVENTS. Performed By: #### M G #### [address] [address] Diff Autoon 08-31-2023 Baso Absolute 0.1 x10*3/mcL Normal 0.0-0.2 [facility] Comment on above: Performed By: #### E GFR #### [address] [address] Basophils/100 WBC (Bld) 1.2 % Normal 0.0-1.2 [facility] Comment on above: Performed By: #### E GFR #### [address] [address] Eos Absolute 0.5 x10*3/mcL High 0.0-0.4 [facility] Comment on above: Performed By: #### E GFR #### [address] [address] Eosinophils/100 WBC (Bld) 8.0 % High 0.0-6.1 [facility] Comment on above: Performed By: #### E GFR #### [address] [address] Lymph Absolute 1.5 x10*3/mcL Normal 1.0-4.8 [facility] Comment on above: Performed By: #### E GFR #### [address] [address] Lymphocytes/100 WBC (Bld) 21.2 % Low 27.2-40.8 [facility] Comment on above: Performed By: #### E GFR #### [address] [address] Lyman Absolute 0.7 x10*3/mcL Normal 0.3-1.1 [facility] Comment on above: Performed By: #### E GFR #### [address] [address] Monocytes/100 WBC (Bld) 10.1 % Normal 4.7-13.9 [facility] Comment on above: Performed By: #### E GFR #### [address] [address] Neutro Absolute 4.1 x10*3/mcL Normal 1.8-7.7 [facility] Comment on above: Performed By: #### E GFR #### [address] [address] Neutro Auto 59.5 % Normal 47.2-70.8 [facility] Comment on above: Performed By: #### E GFR #### [address] [address] ESRon 08-31-2023 Sed Rate 10 mm/hr Normal 0-23 [facility] Comment on above: Performed By: #### C [id number] #### [address] [address] Vanco Troughon 08-31-2023 Vanco Trough 15.70 mcg/mL High 10.00-15.00 [facility] Comment on above: Performed By: #### V ANCT ####[address] [address] .eGFRon 08-27-2023 GFR/1.73 sq M.predicted MDRD (S/P/Bld) [Vol rate/Area] mL/min/{1.73_m2} Normal >=60 [facility] Comment on above: Result Comment: [facility] have implemented the eGFR calculation approach that does not have a coefficient for race and that conforms to the NKF-ASN Task Force Recommendations. Stages of Chronic Kidney Disease GFR Stage 3a Mild to moderate loss of kidney function 59 to 45 Stage 3b Moderate to severe loss of kidney function 44 to 33 Stage 4 Severe loss of kidney function 29 to 15 Stage 5 Kidney failure Less than 15 GFR calculated using the CKD-Epi Creatinine Equation (2020): eGFR = 142 X min(SCr/?, 1)? X max(SCr /?, 1)-1.200 X 0.9938Age X 1.012 [if female] Abbreviations/Units: eGFR (estimated glomerular filtration rate) = mL/min/1.73 m2 SCr (standardized serum creatinine) = mg/dL ? = 0.7 (females) or 0.9 (males) ? = -0.241 (females) or -0.302 (males) min = indicates the minimum of SCr/? or 1 max = indicates the maximum of SCr/? or 1 Age = years Performed By: #### E SR #### [address] [address] BUNon 08-27-2023 Urea nitrogen [Mass/Vol] 16 mg/dL Normal 8-26 [facility] Comment on above: Performed By: #### B UN ####[address] [address] Creatinineon 08-27-2023 Creatinine [Mass/Vol] 0.76 mg/dL Normal 0.61-1.24 [facility] Comment on above: Performed By: #### C CORNELIO ####[id number] [address] Vanco Troughon 08-27-2023 Vanco Trough 11.40 mcg/mL Normal 10.00-15.00 [facility] Comment on above: Performed By: #### E SR #### [address] [address] .eGFRon 08-24-2023 GFR/1.73 sq M.predicted MDRD (S/P/Bld) [Vol rate/Area] mL/min/{1.73_m2} Normal >=60 [facility] Comment on above: Result Comment: [facility] have implemented the eGFR calculation approach that does not have a coefficient for race and that conforms to the NKF-ASN Task Force Recommendations. Stages of Chronic Kidney Disease GFR Stage 3a Mild to moderate loss of kidney function 59 to 45 Stage 3b Moderate to severe loss of kidney function 44 to 33 Stage 4 Severe loss of kidney function 29 to 15 Stage 5 Kidney failure Less than 15 GFR calculated using the CKD-Epi Creatinine Equation (2020): eGFR = 142 X min(SCr/?, 1)? X max(SCr /?, 1)-1.200 X 0.9938Age X 1.012 [if female] Abbreviations/Units: eGFR (estimated glomerular filtration rate) = mL/min/1.73 m2 SCr (standardized serum creatinine) = mg/dL ? = 0.7 (females) or 0.9 (males) ? = -0.241 (females) or -0.302 (males) min = indicates the minimum of SCr/? or 1 max = indicates the maximum of SCr/? or 1 Age = years Performed By: #### M G #### [address] [address] CBC w/ Diffon 08-24-2023 Erythrocyte distribution width (RBC) [Ratio] 14.0 % Normal 11.6-14.8 [facility] Comment on above: Performed By: #### E SR #### [address] [address] Hematocrit (Bld) [Volume fraction] 36.3 % Low 41.0-53.0 [facility] Comment on above: Performed By: #### E SR #### [address] [address] Hemoglobin (Bld) [Mass/Vol] 12.1 g/dL Low 13.5-17.5 [facility] Comment on above: Performed By: #### E SR #### [address] [address] MCH (RBC) [Entitic mass] 30.6 pg Normal 27.0-35.0 [facility] Comment on above: Performed By: #### E SR #### [address] [address] MCHC 33.4 % Normal 31.0-37.0 [facility] Comment on above: Performed By: #### E SR #### [address] [address] MCV (RBC) [Entitic vol] 91.8 fL Normal 80.0-100.0 [facility] Comment on above: Performed By: #### E SR #### [address] [address] Platelet 127 x10*3/mcL Low 150-450 [facility] Comment on above: Performed By: #### E SR #### [address] [address] Platelet mean volume (Bld) [Entitic vol] 8.3 fL Normal 6.7-10.6 [facility] Comment on above: Performed By: #### E SR #### [address] [address] RBC 3.95 x10*6/mcL Low 4.30-5.80 [facility] Comment on above: Performed By: #### E SR #### [address] [address] WBC 6.8 x10*3/mcL Normal 4.5-11.0 [facility] Comment on above: Performed By: #### E SR #### [address] [address] CMPon 08-24-2023 Albumin [Mass/Vol] 3.5 g/dL Normal 3.2-4.9 [facility] Comment on above: Performed By: #### C OMP ####[address] [address] Albumin/Globulin [Mass ratio] 1.1 {ratio} Normal 1.1-2.2 [facility] Comment on above: Performed By: #### C OMP ####[address] [address] Alk Phos 86 IU/L Normal 32-91 [facility] Comment on above: Performed By: #### C OMP ####[address] [address] ALT [Catalytic activity/Vol] 18 U/L Normal 17-63 [facility] Comment on above: Performed By: #### C OMP ####[address] [address] Anion gap [Moles/Vol] 14 mmol/L Normal 7-17 [facility] Comment on above: Performed By: #### C OMP ####[address] [address] AST [Catalytic activity/Vol] 20 U/L Normal 15-41 [facility] Comment on above: Performed By: #### C OMP ####[address] [address] Bili Total 0.2 mg/dL Low 0.3-1.2 [facility] Comment on above: Performed By: #### C OMP ####[address] [address] Calcium [Mass/Vol] 9.0 mg/dL Normal 8.5-10.3 [facility] Comment on above: Performed By: #### C OMP ####[address] [address] Chloride [Moles/Vol] 98 mmol/L Normal 98-110 [facility] Comment on above: Performed By: #### C OMP ####[address] [address] CO2 [Moles/Vol] 26 mmol/L Normal 22-32 [facility] Comment on above: Performed By: #### C OMP ####[address] [address] Creatinine [Mass/Vol] 0.80 mg/dL Normal 0.61-1.24 [facility] Comment on above: Performed By: #### C OMP ####[address] [address] Glucose [Mass/Vol] 243 mg/dL High 70-99 [facility] Comment on above: Performed By: #### C OMP ####[address] [address] Potassium [Moles/Vol] 4.8 mmol/L Normal 3.4-4.8 [facility] Comment on above: Performed By: #### C OMP ####[address] [address] Protein [Mass/Vol] 6.8 g/dL Normal 6.5-8.1 [facility] Comment on above: Performed By: #### C OMP ####[address] [address] Sodium [Moles/Vol] 133 mmol/L Normal 133-142 [facility] Comment on above: Performed By: #### C OMP ####[address] [address] Urea nitrogen [Mass/Vol] 17 mg/dL Normal 8-26 [facility] Comment on above: Performed By: #### C OMP ####[address] [address] Urea nitrogen/Creatinine [Mass ratio] 21.2 mg/mg High 10.0-20.0 [facility] Comment on above: Performed By: #### C OMP ####[address] [address] CRPon 08-24-2023 CRP 0.98 mg/dL High 0.00-0.75 [facility] Comment on above: Result Comment: CRP measurement is useful for assessment of non-specific INFLAMMATORY RESPONSE to infection or injury AND is a sensitive MARKER of ACUTE INFLAMMATION including CARDIAC RISK ASSESSMENT. CARDIAC patients with elevated CRP are POTENTIALLY at a HIGHER RISK OF FUTURE CARDIAC EVENTS. Performed By: #### C RP ####[address] [address] Diff Autoon 08-24-2023 Baso Absolute 0.1 x10*3/mcL Normal 0.0-0.2 [facility] Comment on above: Performed By: #### . Automated Diff ####[address] [address] Basophils/100 WBC (Bld) 1.1 % Normal 0.0-1.2 [facility] Comment on above: Performed By: #### . Automated Diff ####[address] [address] Eos Absolute 0.6 x10*3/mcL High 0.0-0.4 [facility] Comment on above: Performed By: #### . Automated Diff ####[address] [address] Eosinophils/100 WBC (Bld) 9.0 % High 0.0-6.1 [facility] Comment on above: Performed By: #### . Automated Diff ####[address] [address] Lymph Absolute 1.2 x10*3/mcL Normal 1.0-4.8 [facility] Comment on above: Performed By: #### . Automated Diff ####[address] [address] Lymphocytes/100 WBC (Bld) 18.2 % Low 27.2-40.8 [facility] Comment on above: Performed By: #### . Automated Diff ####[address] [address] Lyman Absolute 0.6 x10*3/mcL Normal 0.3-1.1 [facility] Comment on above: Performed By: #### . Automated Diff ####[address] [address] Monocytes/100 WBC (Bld) 8.1 % Normal 4.7-13.9 [facility] Comment on above: Performed By: #### . Automated Diff ####[address] [address] Neutro Absolute 4.3 x10*3/mcL Normal 1.8-7.7 [facility] Comment on above: Performed By: #### . Automated Diff ####[place] [id number] Neutro Auto 63.6 % Normal 47.2-70.8 [facility] Comment on above: Performed By: #### . Automated Diff ####[place] [id number] ESRon 08-24-2023 Sed Rate 13 mm/hr Normal 0-23 [facility] Comment on above: Performed By: #### E SR #### [address] [address] Vanco Troughon 08-24-2023 Vanco Trough 14.40 mcg/mL Normal 10.00-15.00 [facility] Comment on above: Performed By: #### V ANCT ####[address] [address] Vanco Troughon 08-21-2023 Vanco Trough 35.70 mcg/mL High 10.00-15.00 [facility] Comment on above: Performed By: #### V ANCT ####[place] [id number] .eGFRon 08-20-2023 GFR/1.73 sq M.predicted MDRD (S/P/Bld) [Vol rate/Area] mL/min/{1.73_m2} Normal >=60 [facility] Comment on above: Result Comment: [facility] have implemented the eGFR calculation approach that does not have a coefficient for race and that conforms to the NKF-ASN Task Force Recommendations. Stages of Chronic Kidney Disease GFR Stage 3a Mild to moderate loss of kidney function 59 to 45 Stage 3b Moderate to severe loss of kidney function 44 to 33 Stage 4 Severe loss of kidney function 29 to 15 Stage 5 Kidney failure Less than 15 GFR calculated using the CKD-Epi Creatinine Equation (2020): eGFR = 142 X min(SCr/?, 1)? X max(SCr /?, 1)-1.200 X 0.9938Age X 1.012 [if female] Abbreviations/Units: eGFR (estimated glomerular filtration rate) = mL/min/1.73 m2 SCr (standardized serum creatinine) = mg/dL ? = 0.7 (females) or 0.9 (males) ? = -0.241 (females) or -0.302 (males) min = indicates the minimum of SCr/? or 1 max = indicates the maximum of SCr/? or 1 Age = years Performed By: #### E GFR ####[address] [address] C Fungalon 08-20-2023 C Fungal -- - Final No growth at 4 weeks. Normal [facility] Comment on above: Performed By: #### F C ####[address] [address] [facility] Albumin [Mass/Vol] 3.4 g/dL Normal 3.2-4.9 [facility] Comment on above: Performed By: #### E SR #### [address] [address] Albumin/Globulin [Mass ratio] 1.1 {ratio} Normal 1.1-2.2 [facility] Comment on above: Performed By: #### E SR #### [address] [address] Alk Phos 88 IU/L Normal 32-91 [facility] Comment on above: Performed By: #### E SR #### [address] [place] [address] ALT [Catalytic activity/Vol] 25 U/L Normal 17-63 [facility] Comment on above: Performed By: #### E SR #### [address] [place] [address] Anion gap [Moles/Vol] 13 mmol/L Normal 7-17 [facility] Comment on above: Performed By: #### E SR #### [address] [place] [address] AST [Catalytic activity/Vol] 23 U/L Normal 15-41 [facility] Comment on above: Performed By: #### E SR #### [address] [address] Bili Total 0.3 mg/dL Normal 0.3-1.2 [facility] Comment on above: Performed By: #### E SR #### [address] [place] [address] Calcium [Mass/Vol] 8.8 mg/dL Normal 8.5-10.3 [facility] Comment on above: Performed By: #### E SR #### [address] [place] [address] Chloride [Moles/Vol] 99 mmol/L Normal 98-110 [facility] Comment on above: Performed By: #### E SR #### [address] [place] [address] CO2 [Moles/Vol] 24 mmol/L Normal 22-32 [facility] Comment on above: Performed By: #### E SR #### [address] [place] [address] Creatinine [Mass/Vol] 0.72 mg/dL Normal 0.61-1.24 [facility] Comment on above: Performed By: #### E SR #### [address] [place] [address] Glucose [Mass/Vol] 260 mg/dL High 70-99 [facility] Comment on above: Performed By: #### E SR #### [address] [address] Potassium [Moles/Vol] 5.3 mmol/L High 3.4-4.8 [facility] Comment on above: Performed By: #### E SR #### [address] [address] Protein [Mass/Vol] 6.4 g/dL Low 6.5-8.1 [facility] Comment on above: Performed By: #### E SR #### [address] [address] Sodium [Moles/Vol] 131 mmol/L Low 133-142 [facility] Comment on above: Performed By: #### E SR #### [address] [address] Urea nitrogen [Mass/Vol] 14 mg/dL Normal 8-26 [facility] Comment on above: Performed By: #### E SR #### [address] [address] Urea nitrogen/Creatinine [Mass ratio] 19.4 mg/mg Normal 10.0-20.0 [facility] Comment on above: Performed By: #### E SR #### [address] [address] Vanco Levelon 08-20-2023 Vanco Lvl 35.7 mcg/mL Normal 10.0-40.0 [facility] Comment on above: Result Comment: Ther apeutic Range for Vancomycin: Peak: 20.0 - 40.0 mcg/mL Trough: 10.0 - 15.0 mcg/mL Performed By: #### V ANC ####[address] [address] C Fungalon 08-19-2023 C Fungal -- - Final No growth at 4 weeks. Normal [facility] Comment on above: Performed By: #### F C ####[address] [address] .eGFRon 08-17-2023 GFR/1.73 sq M.predicted MDRD (S/P/Bld) [Vol rate/Area] mL/min/{1.73_m2} Normal >=60 [facility] Comment on above: Result Comment: [facility] have implemented the eGFR calculation approach that does not have a coefficient for race and that conforms to the NKF-ASN Task Force Recommendations. Stages of Chronic Kidney Disease GFR Stage 3a Mild to moderate loss of kidney function 59 to 45 Stage 3b Moderate to severe loss of kidney function 44 to 33 Stage 4 Severe loss of kidney function 29 to 15 Stage 5 Kidney failure Less than 15 GFR calculated using the CKD-Epi Creatinine Equation (2020): eGFR = 142 X min(SCr/?, 1)? X max(SCr /?, 1)-1.200 X 0.9938Age X 1.012 [if female] Abbreviations/Units: eGFR (estimated glomerular filtration rate) = mL/min/1.73 m2 SCr (standardized serum creatinine) = mg/dL ? = 0.7 (females) or 0.9 (males) ? = -0.241 (females) or -0.302 (males) min = indicates the minimum of SCr/? or 1 max = indicates the maximum of SCr/? or 1 Age = years Performed By: #### E GFR ####[address] [address] CBC w/ Diffon 08-17-2023 Erythrocyte distribution width (RBC) [Ratio] 14.3 % Normal 11.6-14.8 [facility] Comment on above: Performed By: #### E GFR #### [address] [address] Hematocrit (Bld) [Volume fraction] 35.5 % Low 41.0-53.0 [facility] Comment on above: Performed By: #### E GFR #### [address] [address] Hemoglobin (Bld) [Mass/Vol] 12.0 g/dL Low 13.5-17.5 [facility] Comment on above: Performed By: #### E GFR #### [place] [id number] MCH (RBC) [Entitic mass] 31.1 pg Normal 27.0-35.0 [facility] Comment on above: Performed By: #### E GFR #### [place] [address] MCHC 33.9 % Normal 31.0-37.0 [facility] Comment on above: Performed By: #### E GFR #### [place] [id number] MCV (RBC) [Entitic vol] 91.8 fL Normal 80.0-100.0 [facility] Comment on above: Performed By: #### E GFR #### [place] [address] Platelet 139 x10*3/mcL Low 150-450 [facility] Comment on above: Performed By: #### E GFR #### [place] [address] Platelet mean volume (Bld) [Entitic vol] 8.4 fL Normal 6.7-10.6 [facility] Comment on above: Performed By: #### E GFR #### [place] [id number] RBC 3.87 x10*6/mcL Low 4.30-5.80 [facility] Comment on above: Performed By: #### E GFR #### [place] [id number] WBC 6.2 x10*3/mcL Normal 4.5-11.0 [facility] Comment on above: Performed By: #### E GFR #### [place] [id number] CMPon 08-17-2023 Albumin [Mass/Vol] 3.7 g/dL Normal 3.2-4.9 [facility] Comment on above: Performed By: #### C OMP ####[address] [address] Albumin/Globulin [Mass ratio] 1.1 {ratio} Normal 1.1-2.2 [facility] Comment on above: Performed By: #### C OMP ####[address] [address] Alk Phos 101 IU/L High 32-91 [facility] Comment on above: Performed By: #### C OMP ####[address] [address] ALT [Catalytic activity/Vol] 27 U/L Normal 17-63 [facility] Comment on above: Performed By: #### C OMP ####[address] [address] Anion gap [Moles/Vol] 13 mmol/L Normal 7-17 [facility] Comment on above: Performed By: #### C OMP ####[address] [address] AST [Catalytic activity/Vol] 23 U/L Normal 15-41 [facility] Comment on above: Performed By: #### C OMP ####[address] [address] Bili Total 0.3 mg/dL Normal 0.3-1.2 [facility] Comment on above: Performed By: #### C OMP ####[address] [address] Calcium [Mass/Vol] 8.8 mg/dL Normal 8.5-10.3 [facility] Comment on above: Performed By: #### C OMP ####[address] [address] Chloride [Moles/Vol] 97 mmol/L Low 98-110 [facility] Comment on above: Performed By: #### C OMP ####[address] [address] CO2 [Moles/Vol] 26 mmol/L Normal 22-32 [facility] Comment on above: Performed By: #### C OMP ####[address] [address] Creatinine [Mass/Vol] 0.70 mg/dL Normal 0.61-1.24 [facility] Comment on above: Performed By: #### C OMP ####[address] [address] Glucose [Mass/Vol] 119 mg/dL High 70-99 [facility] Comment on above: Performed By: #### C OMP ####[address] [address] Potassium [Moles/Vol] 4.4 mmol/L Normal 3.4-4.8 [facility] Comment on above: Performed By: #### C OMP ####[address] [address] Protein [Mass/Vol] 7.0 g/dL Normal 6.5-8.1 [facility] Comment on above: Performed By: #### C OMP ####[address] [address] Sodium [Moles/Vol] 132 mmol/L Low 133-142 [facility] Comment on above: Performed By: #### C OMP ####[address] [address] Urea nitrogen [Mass/Vol] 14 mg/dL Normal 8-26 [facility] Comment on above: Performed By: #### C OMP ####[address] [address] Urea nitrogen/Creatinine [Mass ratio] 20.0 mg/mg Normal 10.0-20.0 [facility] Comment on above: Performed By: #### C OMP ####[address] [address] CRPon 08-17-2023 CRP 1.33 mg/dL High 0.00-0.75 [facility] Comment on above: Result Comment: CRP measurement is useful for assessment of non-specific INFLAMMATORY RESPONSE to infection or injury AND is a sensitive MARKER of ACUTE INFLAMMATION including CARDIAC RISK ASSESSMENT. CARDIAC patients with elevated CRP are POTENTIALLY at a HIGHER RISK OF FUTURE CARDIAC EVENTS. Performed By: #### C RP ####[address] [address] Diff Autoon 08-17-2023 Baso Absolute 0.1 x10*3/mcL Normal 0.0-0.2 [facility] Comment on above: Performed By: #### . Automated Diff ####[address] [address] Basophils/100 WBC (Bld) 1.3 % High 0.0-1.2 [facility] Comment on above: Performed By: #### . Automated Diff ####[address] [address] Eos Absolute 0.7 x10*3/mcL High 0.0-0.4 [facility] Comment on above: Performed By: #### . Automated Diff ####[address] [address] Eosinophils/100 WBC (Bld) 12.0 % High 0.0-6.1 [facility] Comment on above: Performed By: #### . Automated Diff ####[address] [address] Lymph Absolute 1.4 x10*3/mcL Normal 1.0-4.8 [facility] Comment on above: Performed By: #### . Automated Diff ####[address] [address] Lymphocytes/100 WBC (Bld) 23.2 % Low 27.2-40.8 [facility] Comment on above: Performed By: #### . Automated Diff ####[address] [address] Lyman Absolute 0.7 x10*3/mcL Normal 0.3-1.1 [facility] Comment on above: Performed By: #### . Automated Diff ####[address] [address] Monocytes/100 WBC (Bld) 11.1 % Normal 4.7-13.9 [facility] Comment on above: Performed By: #### . Automated Diff ####[address] [address] Neutro Absolute 3.2 x10*3/mcL Normal 1.8-7.7 [facility] Comment on above: Performed By: #### . Automated Diff ####[address] [address] Neutro Auto 52.4 % Normal 47.2-70.8 [facility] Comment on above: Performed By: #### . Automated Diff ####[address] [address] ESRon 08-17-2023 Sed Rate 15 mm/hr Normal 0-23 [facility] Comment on above: Performed By: #### M G #### [address] [address] Long-term Care Office/Clinic Noteon 08-17-2023 Long-term Care Office/Clinic Note Chief Complaint new skilled pt at [facility] History of Present Illness Patient is a 68-year-old new admission to [facility]. He was at [facility] July 21 through July 30. He had had a right knee replacement 3 weeks prior to him presenting to the emergency department when he had increased pain and swelling in the joint. He was found to have an infection and needed a revision of the operative site. He is started on IV antibiotics and is still on them. Dr. Cespedes. He states that he is up and about weightbearing as tolerated without any significant issues. He thinks he will be on IV antibiotics at least until the middle of August. He says his pain is under fairly good control with current medications. He is open to get safe and strong enough to get home in the near future. He says he is eating and sleeping just fine. He denies any trouble with his bowel or bladder. He is in good spirits overall and has no acute issues or concerns today. He is a full code. According to nursing he is an independent ambulator with his walker or wheelchair depending upon distance. They say he has had no falls since arriving. They say he needs some prompting with his bathing and assistance with his dressing for his ADLs. They state he is a good self eater and continent of bowel and bladder. They are monitoring his right knee surgical site. They are noting that he takes his Oxy 5 mg every 4 hours. They are wondering if we can decrease this over the next couple of days. Nursing staff has no issues or concerns at this point. They say he is participating well with physical and Occupational Therapy. Review of Systems As above and Constitutional: No fevers, chills, sweats Eye: No recent visual problems ENMT: No ear pain, nasal congestion, sore throat Respiratory: No shortness of breath, cough Cardiovascular: No Chest pain, palpitations, syncope Gastrointestinal: No nausea, vomiting, diarrhea Genitourinary: No hematuria Cody/Lymph: Negative for bruising tendency, swollen lymph glands Endocrine: Negative for excessive thirst, excessive hunger Musculoskeletal: Mild chronic musculoskeletal back and joint discomfort, improving range of motion Integumentary: No rash, pruritus, abrasions Neurologic: No deficits Psychiatric: No anxiety, depression Physical Exam Vitals & Measurements Temperature 98.3, pulse 89, Strate 20, blood pressure 122/77, pulse ox 97% on room air, weight 311 pounds General: Well-developed well-nourished elderly male resting comfortably in his lazy with his feet up in no acute distress normally conversant. Eye: PERRL, EOMI, normal conjunctiva. HEENT: Normocephalic, decreased hearing, moist oral mucosa, no scleral icterus, no sinus tenderness. Neck: Supple, non-tender, no carotid bruits, no JVD, no lymphadenopathy. Lungs: Clear to auscultation, non-labored respiration. Heart: Normal rate, regular rhythm, no murmur, gallop. Abdomen: Soft, non-tender, non-distended, normal bowel sounds, no masses. Musculoskeletal: Fairly good range of motion and strength, mild right knee tenderness, VAC and drain in place, right arm PICC in place, getting with his wheelchair walker depending upon distance. Skin: Skin is warm, dry and pink, no rashes or lesions. Neurologic: Awake, alert, and oriented X3, CN II-XII intact. Psychiatric: Cooperative, appropriate mood and affect. Assessment/Plan 1. Status post right knee replacement He is under fairly good control at this point. He is still having pain and is getting his pain pills about every 4 hours. We will try to encourage him to take less pain medication especially with him being up and ambulating. He is getting around fairly well and has no clinical signs or symptoms of significant pain. We will try to get every 6 hours and then decrease further. If this is not doable, he may benefit from talking to his surgeon about what is going on. He may also need something like gabapentin which she is already on but may need increased. 2. Generalized muscle weakness He is to continue with physical and Occupational Therapy for strength, endurance and balance improvement. 3. COPD with emphysema His COPD is under good control at this point. He is on no oxygen. He is to continue with deep breathing exercises, oxygen as needed and his breathing treatments. We will have PT follow him at a distance. 4. Anemia due to blood loss Hemoglobin levels are low but improving. We will continue to encourage a good iron rich diet and supplements as needed. 5. Hypertension Blood pressures have been under good control. We will continue to monitor. He is having no headaches or dizziness he is having no lightheadedness. 6. Type 2 diabetes mellitus He is to stick with a good nutritious diabetic diet, exercise as able and his diabetic medication. 7. Depression His depression and anxiety seem to be under good control. He is optimistic about getting things to finish healing and being able t (more content not included)... Normal [facility] Vanco Troughon 08-17-2023 Vanco Trough 20.80 mcg/mL High 10.00-15.00 [facility] Comment on above: Performed By: #### V ANCT ####[place] [address] .eGFRon 08-13-2023 GFR/1.73 sq M.predicted MDRD (S/P/Bld) [Vol rate/Area] mL/min/{1.73_m2} Normal >=60 [facility] Comment on above: Result Comment: [facility] have implemented the eGFR calculation approach that does not have a coefficient for race and that conforms to the NKF-ASN Task Force Recommendations. Stages of Chronic Kidney Disease GFR Stage 3a Mild to moderate loss of kidney function 59 to 45 Stage 3b Moderate to severe loss of kidney function 44 to 33 Stage 4 Severe loss of kidney function 29 to 15 Stage 5 Kidney failure Less than 15 GFR calculated using the CKD-Epi Creatinine Equation (2020): eGFR = 142 X min(SCr/?, 1)? X max(SCr /?, 1)-1.200 X 0.9938Age X 1.012 [if female] Abbreviations/Units: eGFR (estimated glomerular filtration rate) = mL/min/1.73 m2 SCr (standardized serum creatinine) = mg/dL ? = 0.7 (females) or 0.9 (males) ? = -0.241 (females) or -0.302 (males) min = indicates the minimum of SCr/? or 1 max = indicates the maximum of SCr/? or 1 Age = years Performed By: #### C [id number] #### [facility] [address] [place] [address] BUNon 08-13-2023 Urea nitrogen [Mass/Vol] 14 mg/dL Normal 06-13 [facility] Comment on above: Performed By: #### B UN ####[place] [address] Creatinineon 08-13-2023 Creatinine [Mass/Vol] 0.75 mg/dL Normal 0.61-1.24 [facility] Comment on above: Performed By: #### C CORNELIO ####[place] [id number] Provider Letteron 08-13-2023 Provider Letter Re: Joie Lu Date of Visit: 08/13/2023 11:30:00 Dear , In regards to our mutual patient Joie Lu. Attached you will find the most recent office visit note. Please call if you have any questions or concerns. Sincerely, Linh CHAPIN [facility] [address] [address] Email: [email or web address] The following document(s) were included in the letter: August 13, 2023 11:38:55 EDT - (08/13/2023) Telehealth Office Visit Note Normal [facility] Vanco Troughon 08-13-2023 Vanco Trough 18.50 mcg/mL High 10.00-15.00 [facility] Comment on above: Performed By: #### V ANCT ####[facility] [place] [address] .eGFRon 08-10-2023 GFR/1.73 sq M.predicted MDRD (S/P/Bld) [Vol rate/Area] mL/min/{1.73_m2} Normal >=60 [facility] Comment on above: Result Comment: [facility] have implemented the eGFR calculation approach that does not have a coefficient for race and that conforms to the NKF-ASN Task Force Recommendations. Stages of Chronic Kidney Disease GFR Stage 3a Mild to moderate loss of kidney function 59 to 45 Stage 3b Moderate to severe loss of kidney function 44 to 33 Stage 4 Severe loss of kidney function 29 to 15 Stage 5 Kidney failure Less than 15 GFR calculated using the CKD-Epi Creatinine Equation (2020): eGFR = 142 X min(SCr/?, 1)? X max(SCr /?, 1)-1.200 X 0.9938Age X 1.012 [if female] Abbreviations/Units: eGFR (estimated glomerular filtration rate) = mL/min/1.73 m2 SCr (standardized serum creatinine) = mg/dL ? = 0.7 (females) or 0.9 (males) ? = -0.241 (females) or -0.302 (males) min = indicates the minimum of SCr/? or 1 max = indicates the maximum of SCr/? or 1 Age = years Performed By: #### E GFR #### [facility] [address] [place] [address] CBC w/ Diffon 08-10-2023 Erythrocyte distribution width (RBC) [Ratio] 14.4 % Normal 11.6-14.8 [facility] Comment on above: Performed By: #### C BC ####[facility] [place] [address] Hematocrit (Bld) [Volume fraction] 38.0 % Low 41.0-53.0 [facility] Comment on above: Performed By: #### C BC ####[place] [id number] Hemoglobin (Bld) [Mass/Vol] 12.6 g/dL Low 13.5-17.5 [facility] Comment on above: Performed By: #### C BC ####[place] [id number] MCH (RBC) [Entitic mass] 30.1 pg Normal 27.0-35.0 [facility] Comment on above: Performed By: #### C BC ####[place] [id number] MCHC 33.1 % Normal 31.0-37.0 [facility] Comment on above: Performed By: #### C BC ####[place] [id number] MCV (RBC) [Entitic vol] 90.9 fL Normal 80.0-100.0 [facility] Comment on above: Performed By: #### C BC ####[place] [id number] Platelet 256 x10*3/mcL Normal 150-450 [facility] Comment on above: Performed By: #### C BC ####[address] [address] Platelet mean volume (Bld) [Entitic vol] 7.8 fL Normal 6.7-10.6 [facility] Comment on above: Performed By: #### C BC ####[address] [address] RBC 4.18 x10*6/mcL Low 4.30-5.80 [facility] Comment on above: Performed By: #### C BC ####[address] [address] WBC 7.0 x10*3/mcL Normal 4.5-11.0 [facility] Comment on above: Performed By: #### C BC ####[address] [address] CMPon 08-10-2023 Albumin [Mass/Vol] 3.8 g/dL Normal 3.2-4.9 [facility] Comment on above: Performed By: #### M G #### [address] [address] Albumin/Globulin [Mass ratio] 1.0 {ratio} Low 1.1-2.2 [facility] Comment on above: Performed By: #### M G #### [address] [address] Alk Phos 109 IU/L High 32-91 [facility] Comment on above: Performed By: #### M G #### [address] [address] ALT [Catalytic activity/Vol] 28 U/L Normal 17-63 [facility] Comment on above: Performed By: #### M G #### [address] [address] Anion gap [Moles/Vol] 13 mmol/L Normal 7-17 [facility] Comment on above: Performed By: #### M G #### [address] [address] AST [Catalytic activity/Vol] 26 U/L Normal 15-41 [facility] Comment on above: Performed By: #### M G #### [address] [address] Bili Total 0.6 mg/dL Normal 0.3-1.2 [facility] Comment on above: Performed By: #### M G #### [address] [address] Calcium [Mass/Vol] 9.3 mg/dL Normal 8.5-10.3 [facility] Comment on above: Performed By: #### M G #### [address] [address] Chloride [Moles/Vol] 101 mmol/L Normal 98-110 [facility] Comment on above: Performed By: #### M G #### [address] [address] CO2 [Moles/Vol] 26 mmol/L Normal 22-32 [facility] Comment on above: Performed By: #### M G #### [address] [address] Creatinine [Mass/Vol] 0.66 mg/dL Normal 0.61-1.24 [facility] Comment on above: Performed By: #### M G #### [address] [address] Glucose [Mass/Vol] 113 mg/dL High 70-99 [facility] Comment on above: Performed By: #### M G #### [address] [address] Potassium [Moles/Vol] 4.4 mmol/L Normal 3.4-4.8 [facility] Comment on above: Performed By: #### M G #### [address] [address] Protein [Mass/Vol] 7.7 g/dL Normal 6.5-8.1 [facility] Comment on above: Performed By: #### M G #### [address] [address] Sodium [Moles/Vol] 136 mmol/L Normal 133-142 [facility] Comment on above: Performed By: #### M G #### [address] [address] Urea nitrogen [Mass/Vol] 13 mg/dL Normal 8-26 [facility] Comment on above: Performed By: #### M G #### [address] [address] Urea nitrogen/Creatinine [Mass ratio] 19.7 mg/mg Normal 10.0-20.0 [facility] Comment on above: Performed By: #### M G #### [address] [address] CRPon 08-10-2023 CRP 1.34 mg/dL High 0.00-0.75 [facility] Comment on above: Result Comment: CRP measurement is useful for assessment of non-specific INFLAMMATORY RESPONSE to infection or injury AND is a sensitive MARKER of ACUTE INFLAMMATION including CARDIAC RISK ASSESSMENT. CARDIAC patients with elevated CRP are POTENTIALLY at a HIGHER RISK OF FUTURE CARDIAC EVENTS. Performed By: #### C RP ####[address] [address] Diff Autoon 08-10-2023 Baso Absolute 0.1 x10*3/mcL Normal 0.0-0.2 [facility] Comment on above: Performed By: #### . Automated Diff ####[address] [address] Basophils/100 WBC (Bld) 1.2 % Normal 0.0-1.2 [facility] Comment on above: Performed By: #### . Automated Diff ####[address] [address] Eos Absolute 0.6 x10*3/mcL High 0.0-0.4 [facility] Comment on above: Performed By: #### . Automated Diff ####[address] [address] Eosinophils/100 WBC (Bld) 8.1 % High 0.0-6.1 [facility] Comment on above: Performed By: #### . Automated Diff ####[address] [address] Lymph Absolute 1.8 x10*3/mcL Normal 1.0-4.8 [facility] Comment on above: Performed By: #### . Automated Diff ####[address] [address] Lymphocytes/100 WBC (Bld) 25.2 % Low 27.2-40.8 [facility] Comment on above: Performed By: #### . Automated Diff ####[address] [address] Lyman Absolute 0.6 x10*3/mcL Normal 0.3-1.1 [facility] Comment on above: Performed By: #### . Automated Diff ####[place] [address] Monocytes/100 WBC (Bld) 8.5 % Normal 4.7-13.9 [facility] Comment on above: Performed By: #### . Automated Diff ####[place] [address] Neutro Absolute 4.0 x10*3/mcL Normal 1.8-7.7 [facility] Comment on above: Performed By: #### . Automated Diff ####[place] [address] Neutro Auto 57.0 % Normal 47.2-70.8 [facility] Comment on above: Performed By: #### . Automated Diff ####[place] [address] ESRon 08-10-2023 Sed Rate 13 mm/hr Normal 0-23 [facility] Comment on above: Performed By: #### E GFR #### [place] [address] Vanco Troughon 08-10-2023 Vanco Trough 18.30 mcg/mL High 10.00-15.00 [facility] Comment on above: Performed By: #### V ANCT ####[place] [address] C Sterile BSon 08-09-2023 C Sterile BS -- - Final No growth at 2 weeks. Normal [facility] Comment on above: Performed By: #### S BSC ####[place] [address] .eGFRon 08-06-2023 GFR/1.73 sq M.predicted MDRD (S/P/Bld) [Vol rate/Area] mL/min/{1.73_m2} Normal >=60 [facility] Comment on above: Result Comment: [facility] have implemented the eGFR calculation approach that does not have a coefficient for race and that conforms to the NKF-ASN Task Force Recommendations. Stages of Chronic Kidney Disease GFR Stage 3a Mild to moderate loss of kidney function 59 to 45 Stage 3b Moderate to severe loss of kidney function 44 to 33 Stage 4 Severe loss of kidney function 29 to 15 Stage 5 Kidney failure Less than 15 GFR calculated using the CKD-Epi Creatinine Equation (2020): eGFR = 142 X min(SCr/?, 1)? X max(SCr /?, 1)-1.200 X 0.9938Age X 1.012 [if female] Abbreviations/Units: eGFR (estimated glomerular filtration rate) = mL/min/1.73 m2 SCr (standardized serum creatinine) = mg/dL ? = 0.7 (females) or 0.9 (males) ? = -0.241 (females) or -0.302 (males) min = indicates the minimum of SCr/? or 1 max = indicates the maximum of SCr/? or 1 Age = years Performed By: #### E GFR ####[place] [id number] BUNon 08-06-2023 Urea nitrogen [Mass/Vol] 13 mg/dL Normal 8-26 [facility] Comment on above: Performed By: #### B UN ####[place] [id number] C ANAon 08-06-2023 C BRANDON -- - Final No anaerobic organisms isolated at 2 weeks Normal [facility] Comment on above: Performed By: #### A NAC ####[place] [address] C BRANDON -- - Final No anaerobic organisms isolated at 2 weeks Normal [facility] Comment on above: Performed By: #Jayla#Jayla Dickerson##[address] [place] [address] C BRANDON -- - Final No anaerobic organisms isolated at 2 weeks Normal [facility] Comment on above: Performed By: #### Mame HAMILTON ###[address] [place] [address] C BRANDON -- - Final No anaerobic organisms isolated at 2 weeks Normal [facility] Comment on above: Performed By: #### Mame HAMILTON ###[address] [place] [address] C BRANDNO -- - Final No anaerobic organisms isolated at 2 weeks Normal [facility] Comment on above: Performed By: #Jayla#Jayla A ALFONSO ###[address] [place] [address] [place] TAYLOR -- - Final No anaerobic organisms isolated at 2 weeks Normal [facility] Comment on above: Performed By: ###Jayla HAMILTON ####[address] [place] [address] C Sterile BSon 08-06-2023 C Sterile BS -- - Final No growth at 2 weeks. Normal [facility] Comment on above: Performed By: #### Jacklyn CHAPMAN ####[address] [address] C Sterile BS -- - Final No growth at 2 weeks. Normal [facility] Comment on above: Performed By: #### S ADELA ####[address] [address] C Sterile BS -- - Final No growth at 2 weeks. Normal [facility] Comment on above: Performed By: #### S BSC ####[address] [address] Creatinineon 08-06-2023 Creatinine [Mass/Vol] 0.72 mg/dL Normal 0.61-1.24 [facility] Comment on above: Performed By: #### M Jose Angel #### [address] [address] Vanco Troughon 08-06-2023 Vanco Trough 21.30 mcg/mL High 10.00-15.00 [facility] Comment on above: Performed By: #### V ANCT ####[place] [address] Send-out: Otheron 08-04-2023 Send-out Other See Report Normal [facility] Comment on above: Order Comment: TEST ID : [id number] Range Bacterial PCR and Sequencing, Varies - synovial fluid iin lab Result Comment: Miss ing Attachment Chartable Reference Lab Reports Can be viewed in source system Performed By: #### S OOTH ####[place] [id number] .eGFRon 08-03-2023 GFR/1.73 sq M.predicted MDRD (S/P/Bld) [Vol rate/Area] mL/min/{1.73_m2} Normal >=60 [facility] Comment on above: Result Comment: [facility] have implemented the eGFR calculation approach that does not have a coefficient for race and that conforms to the NKF-ASN Task Force Recommendations. Stages of Chronic Kidney Disease GFR Stage 3a Mild to moderate loss of kidney function 59 to 45 Stage 3b Moderate to severe loss of kidney function 44 to 33 Stage 4 Severe loss of kidney function 29 to 15 Stage 5 Kidney failure Less than 15 GFR calculated using the CKD-Epi Creatinine Equation (2020): eGFR = 142 X min(SCr/?, 1)? X max(SCr /?, 1)-1.200 X 0.9938Age X 1.012 [if female] Abbreviations/Units: eGFR (estimated glomerular filtration rate) = mL/min/1.73 m2 SCr (standardized serum creatinine) = mg/dL ? = 0.7 (females) or 0.9 (males) ? = -0.241 (females) or -0.302 (males) min = indicates the minimum of SCr/? or 1 max = indicates the maximum of SCr/? or 1 Age = years Performed By: #### E GFR ####[place] [id number] CBC w/ Diffon 08-03-2023 Erythrocyte distribution width (RBC) [Ratio] 14.6 % Normal 11.6-14.8 [facility] Comment on above: Performed By: #### E SR #### [address] [address] Hematocrit (Bld) [Volume fraction] 36.0 % Low 41.0-53.0 [facility] Comment on above: Performed By: #### E SR #### [address] [address] Hemoglobin (Bld) [Mass/Vol] 11.9 g/dL Low 13.5-17.5 [facility] Comment on above: Performed By: #### E SR #### [address] [address] MCH (RBC) [Entitic mass] 30.9 pg Normal 27.0-35.0 [facility] Comment on above: Performed By: #### E SR #### [address] [address] MCHC 33.1 % Normal 31.0-37.0 [facility] Comment on above: Performed By: #### E SR #### [address] [address] MCV (RBC) [Entitic vol] 93.3 fL Normal 80.0-100.0 [facility] Comment on above: Performed By: #### E SR #### [address] [address] Platelet 302 x10*3/mcL Normal 150-450 [facility] Comment on above: Performed By: #### E SR #### [address] [address] Platelet mean volume (Bld) [Entitic vol] 7.6 fL Normal 6.7-10.6 [facility] Comment on above: Performed By: #### E SR #### [address] [address] RBC 3.86 x10*6/mcL Low 4.30-5.80 [facility] Comment on above: Performed By: #### E SR #### [address] [address] WBC 12.2 x10*3/mcL High 4.5-11.0 [facility] Comment on above: Performed By: #### E SR #### [address] [address] CMPon 08-03-2023 Albumin [Mass/Vol] 3.3 g/dL Normal 3.2-4.9 [facility] Comment on above: Performed By: #### C [id number] #### [address] [address] Albumin/Globulin [Mass ratio] 0.9 {ratio} Low 1.1-2.2 [facility] Comment on above: Performed By: #### C [id number] #### [address] [address] Alk Phos 126 IU/L High 32-91 [facility] Comment on above: Performed By: #### C [id number] #### [address] [address] ALT [Catalytic activity/Vol] 43 U/L Normal 17-63 [facility] Comment on above: Performed By: #### C [id number] #### [address] [address] Anion gap [Moles/Vol] 13 mmol/L Normal 7-17 [facility] Comment on above: Performed By: #### C [id number] #### [address] [address] AST [Catalytic activity/Vol] 31 U/L Normal 15-41 [facility] Comment on above: Performed By: #### C [id number] #### [address] [address] Bili Total 0.2 mg/dL Low 0.3-1.2 [facility] Comment on above: Performed By: #### C [id number] #### [address] [address] Calcium [Mass/Vol] 9.0 mg/dL Normal 8.5-10.3 [facility] Comment on above: Performed By: #### C [id number] #### [address] [address] Chloride [Moles/Vol] 101 mmol/L Normal 98-110 [facility] Comment on above: Performed By: #### C [id number] #### [address] [address] CO2 [Moles/Vol] 24 mmol/L Normal 22-32 [facility] Comment on above: Performed By: #### C [id number] #### [address] [address] Creatinine [Mass/Vol] 0.73 mg/dL Normal 0.61-1.24 [facility] Comment on above: Performed By: #### C [id number] #### [address] [address] Glucose [Mass/Vol] 113 mg/dL High 70-99 [facility] Comment on above: Performed By: #### C [id number] #### [address] [address] Potassium [Moles/Vol] 4.6 mmol/L Normal 3.4-4.8 [facility] Comment on above: Performed By: #### C [id number] #### [address] [address] Protein [Mass/Vol] 6.9 g/dL Normal 6.5-8.1 [facility] Comment on above: Performed By: #### C [id number] #### [address] [address] Sodium [Moles/Vol] 133 mmol/L Normal 133-142 [facility] Comment on above: Performed By: #### C [id number] #### [address] [address] Urea nitrogen [Mass/Vol] 13 mg/dL Normal 8-26 [facility] Comment on above: Performed By: #### C [id number] #### [place] [id number] Urea nitrogen/Creatinine [Mass ratio] 17.8 mg/mg Normal 10.0-20.0 [facility] Comment on above: Performed By: #### C [id number] #### [address] [address] CRPon 08-03-2023 CRP 2.36 mg/dL High 0.00-0.75 [facility] Comment on above: Result Comment: CRP measurement is useful for assessment of non-specific INFLAMMATORY RESPONSE to infection or injury AND is a sensitive MARKER of ACUTE INFLAMMATION including CARDIAC RISK ASSESSMENT. CARDIAC patients with elevated CRP are POTENTIALLY at a HIGHER RISK OF FUTURE CARDIAC EVENTS. Performed By: #### M G #### [address] [address] Diff Autoon 08-03-2023 Baso Absolute 0.1 x10*3/mcL Normal 0.0-0.2 [facility] Comment on above: Performed By: #### . Automated Diff ####[address] [address] Basophils/100 WBC (Bld) 0.7 % Normal 0.0-1.2 [facility] Comment on above: Performed By: #### . Automated Diff ####[address] [address] Eos Absolute 0.6 x10*3/mcL High 0.0-0.4 [facility] Comment on above: Performed By: #### . Automated Diff ####[address] [address] Eosinophils/100 WBC (Bld) 4.6 % Normal 0.0-6.1 [facility] Comment on above: Performed By: #### . Automated Diff ####[address] [address] Lymph Absolute 1.8 x10*3/mcL Normal 1.0-4.8 [facility] Comment on above: Performed By: #### . Automated Diff ####[address] [address] Lymphocytes/100 WBC (Bld) 15.1 % Low 27.2-40.8 [facility] Comment on above: Performed By: #### . Automated Diff ####[address] [address] Lyman Absolute 0.7 x10*3/mcL Normal 0.3-1.1 [facility] Comment on above: Performed By: #### . Automated Diff ####[address] [address] Monocytes/100 WBC (Bld) 6.0 % Normal 4.7-13.9 [facility] Comment on above: Performed By: #### . Automated Diff ####[address] [address] Neutro Absolute 8.9 x10*3/mcL High 1.8-7.7 [facility] Comment on above: Performed By: #### . Automated Diff ####[address] [address] Neutro Auto 73.6 % High 47.2-70.8 [facility] Comment on above: Performed By: #### . Automated Diff ####[address] [address] Diff Latia 08-03-2023 Band form neutrophils/100 WBC (Bld) 1 % Normal 0-5 [facility] Comment on above: Performed By: #### . Manual Diff ####[address] [address] Basophils/100 WBC (Bld) 0 % Normal 0-3 [facility] Comment on above: Performed By: #### . Manual Diff ####[address] [address] Eosinophils/100 WBC (Bld) 4 % Normal 0-7 [facility] Comment on above: Performed By: #### . Manual Diff ####[address] [address] Lymphocytes/100 WBC (Bld) 16 % Normal 14-42 [facility] Comment on above: Performed By: #### . Manual Diff ####[address] [address] Monocytes/100 WBC (Bld) 3 % Normal 1-11 [facility] Comment on above: Performed By: #### . Manual Diff ####[address] [address] Platelet estimate Adequate Normal [facility] Comment on above: Performed By: #### . Manual Diff ####[address] [address] RBC morphology finding Nom (Bld) Normal Normal [facility] Comment on above: Performed By: #### . Manual Diff ####[address] [address] Segs Man 76 % Normal 49-79 [facility] Comment on above: Performed By: #### . Manual Diff ####[address] [address] ESRon 08-03-2023 Sed Rate 31 mm/hr High 0-23 [facility] Comment on above: Performed By: #### E SR ####[address] [address] Vanco Troughon 08-03-2023 Vanco Trough 21.00 mcg/mL High 10.00-15.00 [facility] Comment on above: Performed By: #### E GFR #### [address] [address] Long-term Care Office/Clinic Noteon 07-31-2023 Long-term Care Office/Clinic Note Chief Complaint new skilled pt at [facility] History of Present Illness Joie Lu is a 68 year old male new skilled patient of the [facility] being seen today after hospitalization at [facility] from 07/21/23-07/30/23. Pertinent past medical history includes: Type 2 diabetes mellitus, hypertension, gout, depression with anxiety, COPD with emphysema. Originally underwent right knee replacement 3 weeks prior and presented to outside hospital for increasing pain with edema in which she was transferred to [facility] for further eval. Patient found to have postoperative infection of right total knee in which revision was completed 07/22. Postoperative course remained generally uncomplicated patient placed on IV antibiotic therapy and pain remained well controlled with oral medications. He was then discharged to skilled facility for further rehabilitation and monitoring. Code status: Full Patient seen today for subsequent visit. On exam patient sitting up in recliner pleasant alert oriented no acute distress. Vital signs remained stable. Patient denies acute changes in breathing, sleep, appetite. Per facility staff and patient pain not well controlled with current oral regimen at this time. Patient states that pain continues to breakthrough before 6 hours is up in dosing. Pain localized to right knee wound VAC area remains aching. Aggravated with mobility alleviated with rest and elevation as well as ice as needed. PICC line site clean dry negative for surrounding skin changes. No new or worsening skin concerns or behavioral disturbances. He continues to take medications as ordered without further needs or concerns reported at this time. Review of Systems Constitutional: denies changes in appetite, sleep no weight loss + weakness Eye: denies vision changes no drainage EOM intact HENT: No edema, ulcers, or sinus tenderness PULMONARY: negative for shortness of breath, cough, wheezing CARDIAC: negative for chest pain, palpitations, murmur or edema GI: negative for nausea vomiting changes in bowel movements, or masses MUSCULO: Negative for Joint Swelling or tenderness + knee pain ENDO: negative for Obesity, Cachexia NEURO: negative for change in mental status, headaches, vision changes, dizziness, tremors PSYCH: negative for anxiety depression or acute mood changes SKIN: negative for skin lesions, rashes no bruising + wound vac + PICC line Physical Exam Vitals & Measurements T: 36.1 ?C (Oral) HR: 70 (Peripheral) RR: 17 BP: 110/67 SpO2: 98 Physical Exam CONSTITUTIONAL: no apparent distress, frail SKIN: clean dry intact negative for lesions, jaundice, hives or petechiae EYES: pupils are equally round, extraocular movements intact HENT: normocephalic, atraumatic NECK: Nontender and supple PULMONARY: clear to auscultation without wheezes, rhonchi, or rales, relaxed effort on room air CARDIOVASCULAR: regular rate, rhythm, normal S1 and S2. No murmurs or gallop. Trace right lower extremity edema GASTROINTESTINAL: bowel sounds active x4 soft, non-tender, non-distended MUSCULOSKELETAL: Extremities are nontender to palpation and have no gross deformity. right knee wound VAC patent intact trace edema to right lower extremity negative for warmth or tenderness sensation intact distal pedal pulses intact NEUROLOGIC: alert, CN grossly intact, equal hand grasps, sensation grossly intact A&Ox3 PSYCHIATRIC: normal mood and affect, thought process is clear able to answer questions cooperative Additional Vitals No qualifying data available. Assessment/Plan 1. Status post right knee replacement Follow-up Ortho outpatient CBC/CMP/ESR/CRP/trough q. Mondays and Daily weight and vital sign monitoring per facility protocol ROHO to chair Right lower extremity cleanse with normal saline 4 x 4 Adaptic over suture line black sponge bolster drape wound VAC 125 mmHg Ceftriaxone 2 g daily until 09/02 Vancomycin 2000 mg twice daily until 09/02 Lovenox 40 mg daily x30 days Meloxicam 7.5 mg daily Neurontin 600 mg 3 times daily Oxycodone 5 mg will increase frequency to every 4 as needed temporarily and reeval PICC line management per protocol Weightbearing status per Ortho recommendations PT/OT for strength and mobility 2. Anxiety Mood stable, appetite and sleep at baseline Continues on venlafaxine 150 mg daily Hydroxyzine 50 mg 3 times daily Clonazepam 1 mg 3 times daily 3. COPD with emphysema Stable, continues on room air without difficulty Continues Breo Ellipta 100-25 mcg daily Fluticasone 1 spray each nostril daily Loratadine 10 mg daily 4. Hypertension Stable, continue to monitor per facility protocol Continues on amlodipine 5 mg daily Atorvastatin 10 mg daily Lisinopril 20 mg daily Prazosin 1 mg daily 5. Type 2 diabetes mellitus Last A1c 5.8% Continue glimepiride 4 mg twice daily Metformin 850 mg twice daily [place] diabetic diet 6. Generalized muscle weakness PT/OT for stre (more content not included)... Normal [facility] .eGFRon 07-30-2023 GFR/1.73 sq M.predicted MDRD (S/P/Bld) [Vol rate/Area] mL/min/{1.73_m2} Normal >=60 [facility] Comment on above: Result Comment: [facility] have implemented the eGFR calculation approach that does not have a coefficient for race and that conforms to the NKF-ASN Task Force Recommendations. Stages of Chronic Kidney Disease GFR Stage 3a Mild to moderate loss of kidney function 59 to 45 Stage 3b Moderate to severe loss of kidney function 44 to 33 Stage 4 Severe loss of kidney function 29 to 15 Stage 5 Kidney failure Less than 15 GFR calculated using the CKD-Epi Creatinine Equation (2020): eGFR = 142 X min(SCr/?, 1)? X max(SCr /?, 1)-1.200 X 0.9938Age X 1.012 [if female] Abbreviations/Units: eGFR (estimated glomerular filtration rate) = mL/min/1.73 m2 SCr (standardized serum creatinine) = mg/dL ? = 0.7 (females) or 0.9 (males) ? = -0.241 (females) or -0.302 (males) min = indicates the minimum of SCr/? or 1 max = indicates the maximum of SCr/? or 1 Age = years Performed By: #### E GFR #### [facility] [address] [place] [address] Basic Metabolic Profileon Anion gap [Moles/Vol] 10 mmol/L Normal 7-17 [facility] Comment on above: Performed By: #### C [id number] ####[facility] [place] [address] Calcium [Mass/Vol] 8.8 mg/dL Normal 8.5-10.3 [facility] Comment on above: Performed By: #### C [id number] ####[address] [place] [address] Chloride [Moles/Vol] 103 mmol/L Normal 98-110 [facility] Comment on above: Performed By: #### C [id number] ####[address] [address] CO2 [Moles/Vol] 28 mmol/L Normal 22-32 [facility] Comment on above: Performed By: #### C [id number] ####[address] [address] Creatinine [Mass/Vol] 0.81 mg/dL Normal 0.61-1.24 [facility] Comment on above: Performed By: #### C [id number] ####[address] [address] Glucose [Mass/Vol] 171 mg/dL High 70-99 [facility] Comment on above: Performed By: #### C [id number] ####[address] [address] Potassium [Moles/Vol] 4.3 mmol/L Normal 3.4-4.8 [facility] Comment on above: Performed By: #### C [id number] ####[address] [address] Sodium [Moles/Vol] 137 mmol/L Normal 133-142 [facility] Comment on above: Performed By: #### C [id number] ####[address] [address] Urea nitrogen [Mass/Vol] 17 mg/dL Normal 8-26 [facility] Comment on above: Performed By: #### C [id number] ####[address] [address] Urea nitrogen/Creatinine [Mass ratio] 21.0 mg/mg High 10.0-20.0 [facility] Comment on above: Performed By: #### C [id number] ####[address] [address] CBCon 07-30-2023 Erythrocyte distribution width (RBC) [Ratio] 14.6 % Normal 11.6-14.8 [facility] Comment on above: Performed By: #### C [id number] #### [address] [address] Hematocrit (Bld) [Volume fraction] 30.2 % Low 41.0-53.0 [facility] Comment on above: Performed By: #### C [id number] #### [address] [address] Hemoglobin (Bld) [Mass/Vol] 10.2 g/dL Low 13.5-17.5 [facility] Comment on above: Performed By: #### C [id number] #### [address] [address] MCH (RBC) [Entitic mass] 30.9 pg Normal 27.0-35.0 [facility] Comment on above: Performed By: #### C [id number] #### [address] [address] MCHC 33.7 % Normal 31.0-37.0 [facility] Comment on above: Performed By: #### C [id number] #### [address] [address] MCV (RBC) [Entitic vol] 91.6 fL Normal 80.0-100.0 [facility] Comment on above: Performed By: #### C [id number] #### [address] [address] Platelet 238 x10*3/mcL Normal 150-450 [facility] Comment on above: Performed By: #### C [id number] #### [address] [address] Platelet mean volume (Bld) [Entitic vol] 6.7 fL Normal 6.7-10.6 [facility] Comment on above: Performed By: #### C [id number] #### [address] [address] RBC 3.30 x10*6/mcL Low 4.30-5.80 [facility] Comment on above: Performed By: #### C [id number] #### [facility] [address] [place] [address] WBC 8.2 x10*3/mcL Normal 4.5-11.0 [facility] Comment on above: Performed By: #### C [id number] #### [address] [place] [address] COV19 Rapidon 07-30-2023 LAB ONLY Result Called? No Normal [facility] Comment on above: Performed By: #### C [id number] ####[address] [address] Reason for Rapid Test Dischrg to LTC Normal [facility] Comment on above: Performed By: #### C D:[id number] ####[address] [address] SARS-CoV-2 (COVID-19) RNA RUTH+probe Ql (Unsp spec) Negative Normal Negative [facility] Comment on above: Result Comment: The 2019 novel coronavirus SARS-CoV-2 target nucleic acids are not detected. This test is for the detection of SARS-CoV-2 RNA. Positive results are indicative of active infection with SARS-CoV-2. Positive results do not rule out bacterial infection or co-infection with other viruses. Negative results should be treated as presumptive and, if inconsistent with clinical signs and symptoms or necessary for patient management, should be tested with an alternative molecular assay.Negative results do not preclude SARS-CoV-2 infection and should not be used as the sole basis for treatment or other patient management decisions. Clinical correlation with patient history and other diagnostic information is necessary to determine patient infection status. ADDITIONAL INFORMATION: Testing was performed using the ID NOW COVID-19 test by [employer], which has received Emergency Use Authorization (EUA) by the U.S. Food and Drug Administration. The [employer] ID NOW COVID-19 test performs best when patients are tested within the first 7 days of symptom onset. Results should be interpreted with caution for asymptomatic patients or those tested outside the 7 day target. Refer to CDC guidelines for further testing algorithms. Fact sheets for this Emergency Use Authorization (EUA) assay can be found at the following links: Fact Sheet for HealthCare Providers: https://www.[employer].gov/media/785426/download Fact Sheet for Patients: https://www.[employer].gov/media/660110/download Performed By: #### C D:[id number] ####[facility] [place] [address] Inpatient Clinical Summaryon 07-30-2023 Inpatient Clinical Summary [facility] [address] [place] [address] [facility] [address] [place] [address] Clinical Summary Person Information Name: Joie Lu Age: 68 Years : 1955 Sex: Male PCP: Marital Status: Phone: PCP: Race: White Ethnicity: Not or Language: Bangladeshi Visit Id: Visit Reason: Surgical problem Speciality: Acuity: Enc Type: Inpatient Med Service: Emergency Medicine Arrival: 07/21/2023 19:33:54 Discharge: Dispo Type: Address: [address] [place] [phone] Diagnosis: 1:Infection of knee; 2:Hyponatremia; 3:Status post revision of total replacement of right knee Discharged To: Home Treatments: Devices/Equipment: Professional Skilled Services: Special Services and Community Resources: Mode of Discharge Transportation: Discharge Orders Allergies No Known Medication Allergies Functional Status: Sensory Deficits: History of Falls: Mobility Assistance Prior to Admission: ADLs: Minimal assistance Gait: Slow Ambulation Assist: Assistive Device: Gait belt, Walker Special Orthopedic Devices: Current Level of Assistance for Self-Care/Mobility: Cognitive Status: Orientation: Orientation Assessment Oriented x 4 Level of Consciousness: Alert Characteristics of Speech: Clear Aspiration Risk: None Affect/Behavior: Appropriate, Cooperative Laboratory or Other Results This Visit (last charted value for your 07/21/2023 visit) Hematology 07/30/2023 4:03 AM WBC: 8.2 x10 RBC: 3.30 x10 MCV: 91.6 fL -- Normal range between ( 80.0 and 100.0 ) MCHC: 33.7 % -- Normal range between ( 31.0 and 37.0 ) Hct: 30.2 % -- Normal range between ( 41.0 and 53.0 ) MCH: 30.9 pg -- Normal range between ( 27.0 and 35.0 ) Hgb: 10.2 g/dL -- Normal range between ( 13.5 and 17.5 ) Mean Platelet Volume: 6.7 fL -- Normal range between ( 6.7 and 10.6 ) Platelet: 238 x10 RDW: 14.6 % -- Normal range between ( 11.6 and 14.8 ) 07/29/2023 4:06 AM Neutro Auto: 69.2 % -- Normal range between ( 47.2 and 70.8 ) Lymph Auto: 14.5 % -- Normal range between ( 27.2 and 40.8 ) Lyman Auto: 8.1 % -- Normal range between ( 4.7 and 13.9 ) Eos Auto: 7.6 % -- Normal range between ( 0.0 and 6.1 ) Basophil Auto: 0.6 % -- Normal range between ( 0.0 and 1.2 ) Baso Absolute: 0.1 x10 Lymph Absolute: 1.4 x10 Lyman Absolute: 0.8 x10 Neutro Absolute: 6.9 x10 Eos Absolute: 0.8 x10 07/28/2023 9:25 PM Sed Rate: 52 mm/hr -- Normal range between ( 0 and 23 ) Chemistry 07/30/2023 4:03 AM Creatinine Lvl: 0.81 mg/dL -- Normal range between ( 0.61 and 1.24 ) BUN: 17 mg/dL -- Normal range between ( 8 and 26 ) Glucose Lvl: 171 mg/dL -- Normal range between ( 70 and 99 ) Potassium Lvl: 4.3 mmol/L -- Normal range between ( 3.4 and 4.8 ) Sodium Lvl: 137 mmol/L -- Normal range between ( 133 and 142 ) Calcium Lvl: 8.8 mg/dL -- Normal range between ( 8.5 and 10.3 ) Magnesium Lvl: 1.8 mg/dL -- Normal range between ( 1.7 and 2.4 ) Chloride: 103 mmol/L -- Normal range between ( 98 and 110 ) CO2: 28 mmol/L -- Normal range between ( 22 and 32 ) Anion Gap: 10 -- Normal range between ( 7 and 17 ) Estimated GFR: >60 mL/min/1.73m? BUN Crea Ratio: 21.0 -- Normal range between ( 10.0 and 20.0 ) 07/28/2023 9:25 PM CRP: 5.77 mg/dL -- Normal range between ( 0.00 and 0.75 ) 07/22/2023 11:27 AM Phosphorus: 3.1 mg/dL -- Normal range between ( 2.5 and 4.6 ) Albumin Lvl: 3.3 g/dL -- Normal range between ( 3.2 and 4.9 ) 07/21/2023 9:27 PM Hgb A1c: 5.8 % A1c -- Normal range between ( 4.0 and 5.6 ) eAvg Glucose: 120 mg/dL -- Normal range between ( 68 and 114 ) Therapeutic Drug Monitoring 07/28/2023 9:25 PM Vanco Trough: 14.60 mcg/mL -- Normal range between ( 10.00 and 15.00 ) Body Fluids/Other Sources 07/22/2023 7:09 PM Fluid RBC Count: 617518 /mcL Body Fluid Cell Cnt Type: Synovial Fluid WBC Count: 21103 /mcL -- Normal range between ( 0 and 150 ) Fluid Polynuclear Cells: 96 % -- Normal range between ( 0 and 25 ) Fluid Mononuclear Cells: 4 % -- Normal range between ( 0 and 78 ) Fluid Other Cells: 0 % -- Normal range between ( 0 and 10 ) Microbiology 07/22/2023 10:13 PM Gram Stain: Gram Stain POC Testing 07/30/2023 11:24 AM POC Gluc Random: 233 mg/dL -- Normal range between ( 70 and 99 ) Diagnostic Radiology 07/24/2023 8:57 AM XR PICC Floor Insert: XR PICC Floor Insert Vascular Lab 07/27/2023 3:45 PM VL Extremity Venous Duplex Lower Right: VL Extremity Venous Duplex Lower Right Measurements: Height: Weight: Blood Pressure: 111 mmHg / BMI: Respiratory: Respirations: Unlabored, Quiet Respiratory Symptoms: None Cardiovascular: Heart Sounds: Heart Rhythm: Regular Gastrointestinal: GI Symptoms: Bowel Sounds: Present Vital Signs: Temp Axillary: Temp Temporal Artery: 37.6 degC Temp Oral: 36.4 degC Temp Rectal: Apical Heart Rate (more content not included)... Normal [facility] Magnesiumon 07-30-2023 Magnesium [Mass/Vol] 1.8 mg/dL Normal 1.7-2.4 [facility] Comment on above: Performed By: #### E GFR #### [facility] [address] [place] [address] Orthopedic Progress Noteon 1 Orthopedic Progress Note Subjective Patient resting comfortably in bed. Pain well controlled. Drain removed today. Patient ready to go to ECF. Denies any chest pain, shortness breath, fever, chills, nausea, vomiting, calf pain, or numbness and tingling in his foot Objective Vitals & Measurements T: 36.4 ?C (Oral) HR: 73 (Monitored) RR: 16 BP: 111/69 SpO2: 96% HT: 194 cm WT: 142.5 kg BMI: 36.19 Additional Vitals No qualifying data available. Lab Results Microbiology - Current Encounter No qualifying data available. Physical Exam General exam: Patient is a well-appearing male resting comfortably no acute distress. Patient is awake alert and orient x3. Norm and affect. Right lower extremity: Wound VAC intact and maintaining suction. Minimal output since time of surgery. Drain dressing clean, dry, and intact without evidence of drainage or shadowing. Mild edema around knee. Skin otherwise intact. 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 GUDELIA drain had approximately 90cc of serosanguineous drainage out in last 24 hours. Motor intact quad, hamstring, TA, GSC, EHL, FHL. Sensation intact light touch through knee, calf, gaitan, ankle, and foot. 1+ DP pulse. Medications Inpatient acetaminophen, 650 mg, Oral, q6hr, PRN acetaminophen, 650 mg, Oral, QID acetaminophen, 650 mg, Oral, q4hr, PRN amLODIPine, 5 mg, Oral, Daily atorvastatin, 10 mg, Oral, Daily Breo Ellipta 100 mcg-25 mcg/inh inhalation powder, 1 inh, Inhale, Daily calcium carbonate, 1000 mg, Oral, q6hr, PRN clonazePAM, 1 mg, Oral, TID Colace, 100 mg, Oral, BID Dextrose 10% in Water IV Piggyback, 125 mL, IV Piggyback, As Indicated, PRN diphenhydrAMINE, 25 mg, Oral, HS (at bedtime), PRN docusate sodium, 100 mg, Oral, Daily, PRN enoxaparin, 40 mg= 0.4 mL, Subcutaneous, Daily fluticasone 50 mcg/inh nasal spray, 50 mcg= 1 sprays, Nasal, qAM gabapentin, 600 mg, Oral, TID glimepiride, 4 mg, Oral, BID glucagon, 1 mg, Subcutaneous, As Indicated, PRN hydrOXYzine, 50 mg, Oral, TID insulin aspart, see comments, Subcutaneous, ACHS Levemir, 18 units, Subcutaneous, HS (at bedtime) levothyroxine, 125 mcg, Oral, Daily lisinopril, 20 mg, Oral, Daily loratadine, 10 mg, Oral, Daily meloxicam, 7.5 mg, Oral, Daily MiraLax, 17 g= 1 EA, Oral, Daily MiraLax, 17 g= 1 EA, Oral, Daily, PRN naloxone, 0.4 mg= 1 mL, IV Push, q2min, PRN Normal Saline Flush 0.9% injectable solution, 10 mL, IV Push, BID Normal Saline Flush 0.9% injectable solution, 10 mL, IV Push, As Indicated, PRN nystatin 100,000 units/g topical powder, 1 scott, Topical, BID, PRN oxyCODONE, 5 mg, Oral, q4hr, PRN oxyCODONE, 10 mg, Oral, q4hr, PRN prazosin, 1 mg, Oral, Daily Rocephin, 2 g= 50 mL, IV Piggyback, q24hr vancomycin venlafaxine extended release, 150 mg, Oral, Daily Zofran, 4 mg= 2 mL, IV Push, q6hr, PRN Assessment/Plan 1. Infection of knee POD 8 s/p I&D right TKA with poly exchange Weightbearing as tolerated right lower extremity PT/OT P.o. pain control DVT prophylaxis: Lovenox, SCDs, LORAINE hose Wound VAC change every Thursday and Thursday. Continue to monitor output Wound care consulted Continue IV vancomycin and Rocephin per ID Infectious disease consulted. Appreciate antibiotic recommendations PICC line placed Continue to monitor surgical cultures. No growth to date GUDELIA drain intact and patent. Drain pulled this morning Hospitalist to continue medical management A.m. Hgb 10.2. Hemodynamically stable. Asymptomatic. Anticipate discharge to [facility] today Outpatient follow-up in 2 weeks. Continue twice weekly wound VAC changes until discontinued by our office outpatient. 2. Hyponatremia 3. Status post revision of total replacement of right knee Electronically signed by Starla Marie PA-C 07/30/23 12:18 EDT Patient care discussed with Starla Marie PA-C. Agree with assessment and plan. Electronically signed by Justin Mcgowan MD 07/31/23 15:54 EDT Normal [facility] POC Glucose Randomon 023 Glucose [Mass/Vol] 233 mg/dL High 70-99 [facility] Comment on above: Performed By: #### C D:[id number] ####[address] [place] [address] .eGFRon 07-29-2023 GFR/1.73 sq M.predicted MDRD (S/P/Bld) [Vol rate/Area] mL/min/{1.73_m2} Normal >=60 [facility] Comment on above: Result Comment: [facility] have implemented the eGFR calculation approach that does not have a coefficient for race and that conforms to the NKF-ASN Task Force Recommendations. Stages of Chronic Kidney Disease GFR Stage 3a Mild to moderate loss of kidney function 59 to 45 Stage 3b Moderate to severe loss of kidney function 44 to 33 Stage 4 Severe loss of kidney function 29 to 15 Stage 5 Kidney failure Less than 15 GFR calculated using the CKD-Epi Creatinine Equation (2020): eGFR = 142 X min(SCr/?, 1)? X max(SCr /?, 1)-1.200 X 0.9938Age X 1.012 [if female] Abbreviations/Units: eGFR (estimated glomerular filtration rate) = mL/min/1.73 m2 SCr (standardized serum creatinine) = mg/dL ? = 0.7 (females) or 0.9 (males) ? = -0.241 (females) or -0.302 (males) min = indicates the minimum of SCr/? or 1 max = indicates the maximum of SCr/? or 1 Age = years Performed By: #### M G #### [address] [address] Basic Metabolic Profileon Anion gap [Moles/Vol] 11 mmol/L Normal 7-17 [facility] Comment on above: Performed By: #### C [id number] ####[address] [address] Calcium [Mass/Vol] 8.7 mg/dL Normal 8.5-10.3 [facility] Comment on above: Performed By: #### C [id number] ####[address] [address] Chloride [Moles/Vol] 103 mmol/L Normal 98-110 [facility] Comment on above: Performed By: #### C [id number] ####[address] [address] CO2 [Moles/Vol] 25 mmol/L Normal 22-32 [facility] Comment on above: Performed By: #### C [id number] ####[address] [address] Creatinine [Mass/Vol] 0.67 mg/dL Normal 0.61-1.24 [facility] Comment on above: Performed By: #### C [id number] ####[address] [address] Glucose [Mass/Vol] 140 mg/dL High 70-99 [facility] Comment on above: Performed By: #### C [id number] ####[address] [address] Potassium [Moles/Vol] 4.4 mmol/L Normal 3.4-4.8 [facility] Comment on above: Performed By: #### C [id number] ####[address] [address] Sodium [Moles/Vol] 135 mmol/L Normal 133-142 [facility] Comment on above: Performed By: #### C [id number] ####[address] [address] Urea nitrogen [Mass/Vol] 17 mg/dL Normal 8-26 [facility] Comment on above: Performed By: #### C D:[id number] ####[address] [address] Urea nitrogen/Creatinine [Mass ratio] 25.4 mg/mg High 10.0-20.0 [facility] Comment on above: Performed By: #### C [id number] ####[address] [address] CBC w/ Diffon 07-29-2023 Erythrocyte distribution width (RBC) [Ratio] 14.7 % Normal 11.6-14.8 [facility] Comment on above: Performed By: #### C BC ####[address] [address] Hematocrit (Bld) [Volume fraction] 30.7 % Low 41.0-53.0 [facility] Comment on above: Performed By: #### C BC ####[address] [address] Hemoglobin (Bld) [Mass/Vol] 10.4 g/dL Low 13.5-17.5 [facility] Comment on above: Performed By: #### C BC ####[address] [address] MCH (RBC) [Entitic mass] 30.9 pg Normal 27.0-35.0 [facility] Comment on above: Performed By: #### C BC ####[address] [address] MCHC 33.8 % Normal 31.0-37.0 [facility] Comment on above: Performed By: #### C BC ####[address] [address] MCV (RBC) [Entitic vol] 91.5 fL Normal 80.0-100.0 [facility] Comment on above: Performed By: #### C BC ####[address] [address] Platelet 245 x10*3/mcL Normal 150-450 [facility] Comment on above: Performed By: #### C BC ####[id number] Platelet mean volume (Bld) [Entitic vol] 6.4 fL Low 6.7-10.6 [facility] Comment on above: Performed By: #### C BC ####[id number] RBC 3.35 x10*6/mcL Low 4.30-5.80 [facility] Comment on above: Performed By: #### C BC ####[id number] WBC 9.9 x10*3/mcL Normal 4.5-11.0 [facility] Comment on above: Performed By: #### C BC ####[id number] Diff Autoon 07-29-2023 Baso Absolute 0.1 x10*3/mcL Normal 0.0-0.2 [facility] Comment on above: Performed By: #### . Automated Diff ####[address] [address] Basophils/100 WBC (Bld) 0.6 % Normal 0.0-1.2 [facility] Comment on above: Performed By: #### . Automated Diff ####[address] [address] Eos Absolute 0.8 x10*3/mcL High 0.0-0.4 [facility] Comment on above: Performed By: #### . Automated Diff ####[id number] Eosinophils/100 WBC (Bld) 7.6 % High 0.0-6.1 [facility] Comment on above: Performed By: #### . Automated Diff ####[address] [address] Lymph Absolute 1.4 x10*3/mcL Normal 1.0-4.8 [facility] Comment on above: Performed By: #### . Automated Diff ####[address] [address] Lymphocytes/100 WBC (Bld) 14.5 % Low 27.2-40.8 [facility] Comment on above: Performed By: #### . Automated Diff ####[address] [address] Lyman Absolute 0.8 x10*3/mcL Normal 0.3-1.1 [facility] Comment on above: Performed By: #### . Automated Diff ####[address] [address] Monocytes/100 WBC (Bld) 8.1 % Normal 4.7-13.9 [facility] Comment on above: Performed By: #### . Automated Diff ####[address] [address] Neutro Absolute 6.9 x10*3/mcL Normal 1.8-7.7 [facility] Comment on above: Performed By: #### . Automated Diff ####[place] [id number] Neutro Auto 69.2 % Normal 47.2-70.8 [facility] Comment on above: Performed By: #### . Automated Diff ####[place] [id number] ESRon 07-29-2023 Sed Rate 52 mm/hr High 0-23 [facility] Comment on above: Performed By: #### E SR ####[place] [id number] Orthopedic Progress Noteon 1 Orthopedic Progress Note Subjective Patient resting comfortably in bed. Pain well controlled. Awaiting final pre-CERT's and authorizations for DC to ECF with wound VAC and IV antibiotics. Patient denies any chest pain, shortness of breath, nausea, vomiting, calf pain, or numbness and tingling in his toes and feet. Objective Vitals & Measurements T: 36.6 ?C (Oral) HR: 69 (Peripheral) RR: 17 BP: 126/77 SpO2: 96% HT: 194 cm WT: 143.9 kg BMI: 36.19 Additional Vitals No qualifying data available. Lab Results Microbiology - Current Encounter No qualifying data available. Physical Exam General exam: Patient is a well-appearing male resting comfortably no acute distress. Patient is awake alert and orient x3. Norm and affect. Right lower extremity: Wound VAC intact and maintaining suction. Minimal output since time of surgery. Drain dressing clean, dry, and intact without evidence of drainage or shadowing. Mild edema around knee. Skin otherwise intact. 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 GUDELIA drain had approximately 85cc of serosanguineous drainage out in last 24 hours. Motor intact quad, hamstring, TA, GSC, EHL, FHL. Sensation intact light touch through knee, calf, gaitan, ankle, and foot. 1+ DP pulse. Medications Inpatient acetaminophen, 650 mg, Oral, q6hr, PRN acetaminophen, 650 mg, Oral, QID acetaminophen, 650 mg, Oral, q4hr, PRN amLODIPine, 5 mg, Oral, Daily atorvastatin, 10 mg, Oral, Daily Breo Ellipta 100 mcg-25 mcg/inh inhalation powder, 1 inh, Inhale, Daily calcium carbonate, 1000 mg, Oral, q6hr, PRN clonazePAM, 1 mg, Oral, TID Colace, 100 mg, Oral, BID Dextrose 10% in Water IV Piggyback, 125 mL, IV Piggyback, As Indicated, PRN diphenhydrAMINE, 25 mg, Oral, HS (at bedtime), PRN docusate sodium, 100 mg, Oral, Daily, PRN enoxaparin, 40 mg= 0.4 mL, Subcutaneous, Daily fluticasone 50 mcg/inh nasal spray, 50 mcg= 1 sprays, Nasal, qAM gabapentin, 600 mg, Oral, TID glimepiride, 4 mg, Oral, BID glucagon, 1 mg, Subcutaneous, As Indicated, PRN hydrOXYzine, 50 mg, Oral, TID insulin aspart, see comments, Subcutaneous, ACHS Levemir, 18 units, Subcutaneous, HS (at bedtime) levothyroxine, 125 mcg, Oral, Daily lisinopril, 20 mg, Oral, Daily loratadine, 10 mg, Oral, Daily meloxicam, 7.5 mg, Oral, Daily MiraLax, 17 g= 1 EA, Oral, Daily MiraLax, 17 g= 1 EA, Oral, Daily, PRN naloxone, 0.4 mg= 1 mL, IV Push, q2min, PRN Normal Saline Flush 0.9% injectable solution, 10 mL, IV Push, BID Normal Saline Flush 0.9% injectable solution, 10 mL, IV Push, As Indicated, PRN oxyCODONE, 5 mg, Oral, q4hr, PRN oxyCODONE, 10 mg, Oral, q4hr, PRN prazosin, 1 mg, Oral, Daily Rocephin, 2 g= 50 mL, IV Piggyback, q24hr vancomycin venlafaxine extended release, 150 mg, Oral, Daily Zofran, 4 mg= 2 mL, IV Push, q6hr, PRN Assessment/Plan 1. Infection of knee POD 7 s/p I&D right TKA with poly exchange Weightbearing as tolerated right lower extremity PT/OT P.o. pain control DVT prophylaxis: Lovenox, SCDs, LORAINE hose Wound VAC change every Thursday and Thursday. Continue to monitor output Wound care consulted Continue IV vancomycin and Rocephin per ID Infectious disease consulted. Appreciate antibiotic recommendations PICC line placed Continue to monitor surgical cultures. No growth to date GUDELIA drain intact and patent. Continue to monitor output from drain. Anticipate removal tomorrow. Hospitalist to continue medical management A.m. Hgb 10.4. Hemodynamically stable. Asymptomatic. Anticipate need for IV antibiotics and wound VAC on discharge. Anticipate discharge to [facility] once outpatient antibiotics and wound VAC arranged, possibly tomorrow. Outpatient follow-up in 2 weeks 2. Hyponatremia 3. Status post revision of total replacement of right knee Electronically signed by Starla Marie PA-C 07/29/23 06:44 EDT Patient care discussed with Starla Marie PA-C. Agree with assessment and plan. Electronically signed by Justin Mcgowan MD 07/30/23 07:17 EDT Normal [facility] POC Glucose Randomon 023 Glucose [Mass/Vol] 168 mg/dL High 70-99 [facility] Comment on above: Performed By: #### E GFR #### [facility] [address] [place] [address] Glucose [Mass/Vol] 212 mg/dL High 70-99 [facility] Comment on above: Performed By: #### C [id number] ####[facility] [place] [address] Glucose [Mass/Vol] 189 mg/dL High 70-99 [facility] Comment on above: Performed By: #### C [id number] #### [facility] [address] [place] [address] .eGFRon 07-28-2023 GFR/1.73 sq M.predicted MDRD (S/P/Bld) [Vol rate/Area] mL/min/{1.73_m2} Normal >=60 [facility] Comment on above: Result Comment: [facility] have implemented the eGFR calculation approach that does not have a coefficient for race and that conforms to the NKF-ASN Task Force Recommendations. Stages of Chronic Kidney Disease GFR Stage 3a Mild to moderate loss of kidney function 59 to 45 Stage 3b Moderate to severe loss of kidney function 44 to 33 Stage 4 Severe loss of kidney function 29 to 15 Stage 5 Kidney failure Less than 15 GFR calculated using the CKD-Epi Creatinine Equation (2020): eGFR = 142 X min(SCr/?, 1)? X max(SCr /?, 1)-1.200 X 0.9938Age X 1.012 [if female] Abbreviations/Units: eGFR (estimated glomerular filtration rate) = mL/min/1.73 m2 SCr (standardized serum creatinine) = mg/dL ? = 0.7 (females) or 0.9 (males) ? = -0.241 (females) or -0.302 (males) min = indicates the minimum of SCr/? or 1 max = indicates the maximum of SCr/? or 1 Age = years Performed By: #### E GFR #### [address] [address] GFR/1.73 sq M.predicted MDRD (S/P/Bld) [Vol rate/Area] mL/min/{1.73_m2} Normal >=60 [facility] Comment on above: Result Comment: [facility] have implemented the eGFR calculation approach that does not have a coefficient for race and that conforms to the NKF-ASN Task Force Recommendations. Stages of Chronic Kidney Disease GFR Stage 3a Mild to moderate loss of kidney function 59 to 45 Stage 3b Moderate to severe loss of kidney function 44 to 33 Stage 4 Severe loss of kidney function 29 to 15 Stage 5 Kidney failure Less than 15 GFR calculated using the CKD-Epi Creatinine Equation (2020): eGFR = 142 X min(SCr/?, 1)? X max(SCr /?, 1)-1.200 X 0.9938Age X 1.012 [if female] Abbreviations/Units: eGFR (estimated glomerular filtration rate) = mL/min/1.73 m2 SCr (standardized serum creatinine) = mg/dL ? = 0.7 (females) or 0.9 (males) ? = -0.241 (females) or -0.302 (males) min = indicates the minimum of SCr/? or 1 max = indicates the maximum of SCr/? or 1 Age = years Performed By: #### E SR #### [address] [address] Basic Metabolic Profileon Anion gap [Moles/Vol] 10 mmol/L Normal 7-17 [facility] Comment on above: Performed By: #### E GFR #### [address] [address] Calcium [Mass/Vol] 8.5 mg/dL Normal 8.5-10.3 [facility] Comment on above: Performed By: #### E GFR #### [address] [address] Chloride [Moles/Vol] 100 mmol/L Normal 98-110 [facility] Comment on above: Performed By: #### E GFR #### [address] [address] CO2 [Moles/Vol] 26 mmol/L Normal 22-32 [facility] Comment on above: Performed By: #### E GFR #### [address] [address] Creatinine [Mass/Vol] 0.86 mg/dL Normal 0.61-1.24 [facility] Comment on above: Performed By: #### E GFR #### [address] [address] Glucose [Mass/Vol] 290 mg/dL High 70-99 [facility] Comment on above: Performed By: #### E GFR #### [address] [address] Potassium [Moles/Vol] 4.4 mmol/L Normal 3.4-4.8 [facility] Comment on above: Performed By: #### E GFR #### [address] [address] Sodium [Moles/Vol] 132 mmol/L Low 133-142 [facility] Comment on above: Performed By: #### E GFR #### [address] [address] Urea nitrogen [Mass/Vol] 18 mg/dL Normal 8-26 [facility] Comment on above: Performed By: #### E GFR #### [address] [address] Urea nitrogen/Creatinine [Mass ratio] 20.9 mg/mg High 10.0-20.0 [facility] Comment on above: Performed By: #### E GFR #### [address] [address] Anion gap [Moles/Vol] 12 mmol/L Normal 7-17 [facility] Comment on above: Performed By: #### C [id number] ####[address] [address] Calcium [Mass/Vol] 8.9 mg/dL Normal 8.5-10.3 [facility] Comment on above: Performed By: #### C [id number] ####[address] [address] Chloride [Moles/Vol] 104 mmol/L Normal 98-110 [facility] Comment on above: Performed By: #### C [id number] ####[address] [address] CO2 [Moles/Vol] 27 mmol/L Normal 22-32 [facility] Comment on above: Performed By: #### C [id number] ####[address] [address] Creatinine [Mass/Vol] 0.78 mg/dL Normal 0.61-1.24 [facility] Comment on above: Performed By: #### C [id number] ####[address] [address] Glucose [Mass/Vol] 134 mg/dL High 70-99 [facility] Comment on above: Performed By: #### C [id number] ####[address] [address] Potassium [Moles/Vol] 4.4 mmol/L Normal 3.4-4.8 [facility] Comment on above: Performed By: #### C [id number] ####[address] [address] Sodium [Moles/Vol] 139 mmol/L Normal 133-142 [facility] Comment on above: Performed By: #### C [id number] ####[address] [address] Urea nitrogen [Mass/Vol] 16 mg/dL Normal 8-26 [facility] Comment on above: Performed By: #### C [id number] ####[address] [address] Urea nitrogen/Creatinine [Mass ratio] 20.5 mg/mg High 10.0-20.0 [facility] Comment on above: Performed By: #### C [id number] ####[address] [address] CBCon 07-28-2023 Erythrocyte distribution width (RBC) [Ratio] 15.2 % High 11.6-14.8 [facility] Comment on above: Performed By: #### C BCI ####[address] [address] Hematocrit (Bld) [Volume fraction] 31.2 % Low 41.0-53.0 [facility] Comment on above: Performed By: #### C BCI ####[address] [address] Hemoglobin (Bld) [Mass/Vol] 10.4 g/dL Low 13.5-17.5 [facility] Comment on above: Performed By: #### C BCI ####[address] [address] MCH (RBC) [Entitic mass] 30.8 pg Normal 27.0-35.0 [facility] Comment on above: Performed By: #### C BCI ####[address] [address] MCHC 33.5 % Normal 31.0-37.0 [facility] Comment on above: Performed By: #### C BCI ####[address] [address] MCV (RBC) [Entitic vol] 91.9 fL Normal 80.0-100.0 [facility] Comment on above: Performed By: #### C BCI ####[address] [address] Platelet 252 x10*3/mcL Normal 150-450 [facility] Comment on above: Performed By: #### C BCI ####[address] [address] Platelet mean volume (Bld) [Entitic vol] 7.0 fL Normal 6.7-10.6 [facility] Comment on above: Performed By: #### C BCI ####[address] [address] RBC 3.39 x10*6/mcL Low 4.30-5.80 [facility] Comment on above: Performed By: #### C BCI ####[address] [address] WBC 11.0 x10*3/mcL Normal 4.5-11.0 [facility] Comment on above: Performed By: #### C BCI ####[address] [address] Erythrocyte distribution width (RBC) [Ratio] 15.0 % High 11.6-14.8 [facility] Comment on above: Performed By: #### E SR #### [address] [address] Hematocrit (Bld) [Volume fraction] 31.6 % Low 41.0-53.0 [facility] Comment on above: Performed By: #### E SR #### [address] [address] Hemoglobin (Bld) [Mass/Vol] 10.6 g/dL Low 13.5-17.5 [facility] Comment on above: Performed By: #### E SR #### [address] [address] MCH (RBC) [Entitic mass] 30.9 pg Normal 27.0-35.0 [facility] Comment on above: Performed By: #### E SR #### [address] [address] MCHC 33.4 % Normal 31.0-37.0 [facility] Comment on above: Performed By: #### E SR #### [place] [id number] MCV (RBC) [Entitic vol] 92.3 fL Normal 80.0-100.0 [facility] Comment on above: Performed By: #### E SR #### [place] [id number] Platelet 256 x10*3/mcL Normal 150-450 [facility] Comment on above: Performed By: #### E SR #### [place] [address] Platelet mean volume (Bld) [Entitic vol] 6.6 fL Low 6.7-10.6 [facility] Comment on above: Performed By: #### E SR #### [place] [id number] RBC 3.42 x10*6/mcL Low 4.30-5.80 [facility] Comment on above: Performed By: #### E SR #### [place] [id number] WBC 11.4 x10*3/mcL High 4.5-11.0 [facility] Comment on above: Performed By: #### E SR #### [place] [address] CRPon 07-28-2023 CRP 5.77 mg/dL High 0.00-0.75 [facility] Comment on above: Result Comment: CRP measurement is useful for assessment of non-specific INFLAMMATORY RESPONSE to infection or injury AND is a sensitive MARKER of ACUTE INFLAMMATION including CARDIAC RISK ASSESSMENT. CARDIAC patients with elevated CRP are POTENTIALLY at a HIGHER RISK OF FUTURE CARDIAC EVENTS. Performed By: #### C RP ####[place] [address] Infectious Disease Progress Noteon 07-28-2023 Infectious Disease Progress Note Subjective Feeling okay. Pain under control. No nausea vomiting. No fever or chills. Review of Systems As above. Objective Vitals & Measurements T: 36.7 ?C (Oral) HR: 91 (Peripheral) RR: 16 BP: 109/63 SpO2: 92% HT: 194 cm WT: 144.6 kg BMI: 36.19 Additional Vitals No qualifying data available. Lab Results Test Name Test Result Date/Time WBC 11.4 x10 Hgb 10.6 g/dL (Low) 07/28/2023 04:20 EDT Platelet 256 x10 Sodium Lvl 139 mmol/L 07/28/2023 04:20 EDT Potassium Lvl 4.4 mmol/L 07/28/2023 04:20 EDT CO2 27 mmol/L 07/28/2023 04:20 EDT Glucose Lvl 134 mg/dL (High) 07/28/2023 04:20 EDT BUN 16 mg/dL 07/28/2023 04:20 EDT Creatinine Lvl 0.78 mg/dL 07/28/2023 04:20 EDT CRP 24.09 mg/dL (High) 07/21/2023 21:27 EDT Microbiology - Current Encounter No qualifying data available. Physical Exam Vital signs okay. HEENT unremarkable. Lungs clear. Heart regular rate and rhythm. Abdomen soft nontender. Right knee with wound VAC in place. Cultures remain negative. Assessment/Plan 1. Infection of knee Continue on vancomycin and Rocephin through September 02. I will not be rounding this week. Please contact me for any questions. We will need follow-up with ID in 2 weeks after discharge. Ordered: C-Reactive Protein Erythrocyte Sedimentation Rate 3. Status post revision of total replacement of right knee Electronically signed by Johnny Cespedes MD 07/28/23 18:16 EDT Normal [facility] Magnesiumon 07-28-2023 Magnesium [Mass/Vol] 1.8 mg/dL Normal 1.7-2.4 [facility] Comment on above: Performed By: #### M G ####[address] [address] Magnesium [Mass/Vol] 1.9 mg/dL Normal 1.7-2.4 [facility] Comment on above: Performed By: #### M G ####[facility] [place] [address] Orthopedic Progress Noteon 1 Orthopedic Progress Note Subjective Patient resting comfortably in bedside chair. Pain well controlled. Ambulating well. Had first BM this morning. Denies chest pain, shortness of breath, nausea, lightheadedness, dizziness, calf pain, or numbness and tingling in his toes and feet. Objective Vitals & Measurements T: 36.7 ?C (Oral) HR: 82 (Peripheral) RR: 18 BP: 113/72 SpO2: 91% HT: 194 cm WT: 144.6 kg BMI: 36.19 Additional Vitals No qualifying data available. Lab Results Microbiology - Current Encounter No qualifying data available. Physical Exam General exam: Patient is a well-appearing male resting comfortably no acute distress. Patient is awake alert and orient x3. Norm and affect. Right lower extremity: Wound VAC intact and maintaining suction. Minimal output since time of surgery. Drain dressing clean, dry, and intact without evidence of drainage or shadowing. Mild edema around knee. Skin otherwise intact. 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 GUDELIA drain had approximately 140cc of serosanguineous drainage out in last 24 hours. Motor intact quad, hamstring, TA, GSC, EHL, FHL. Sensation intact light touch through knee, calf, gaitan, ankle, and foot. 1+ DP pulse. Medications Inpatient acetaminophen, 650 mg, Oral, q6hr, PRN acetaminophen, 650 mg, Oral, QID acetaminophen, 650 mg, Oral, q4hr, PRN amLODIPine, 5 mg, Oral, Daily atorvastatin, 10 mg, Oral, Daily Breo Ellipta 100 mcg-25 mcg/inh inhalation powder, 1 inh, Inhale, Daily calcium carbonate, 1000 mg, Oral, q6hr, PRN clonazePAM, 1 mg, Oral, TID Colace, 100 mg, Oral, BID Dextrose 10% in Water IV Piggyback, 125 mL, IV Piggyback, As Indicated, PRN diphenhydrAMINE, 25 mg, Oral, HS (at bedtime), PRN docusate sodium, 100 mg, Oral, Daily, PRN enoxaparin, 40 mg= 0.4 mL, Subcutaneous, Daily fluticasone 50 mcg/inh nasal spray, 50 mcg= 1 sprays, Nasal, qAM gabapentin, 600 mg, Oral, TID glimepiride, 4 mg, Oral, BID glucagon, 1 mg, Subcutaneous, As Indicated, PRN hydrOXYzine, 50 mg, Oral, TID insulin aspart, see comments, Subcutaneous, ACHS Levemir, 18 units, Subcutaneous, HS (at bedtime) levothyroxine, 125 mcg, Oral, Daily lisinopril, 20 mg, Oral, Daily loratadine, 10 mg, Oral, Daily meloxicam, 7.5 mg, Oral, Daily MiraLax, 17 g= 1 EA, Oral, Daily MiraLax, 17 g= 1 EA, Oral, Daily, PRN naloxone, 0.4 mg= 1 mL, IV Push, q2min, PRN Normal Saline Flush 0.9% injectable solution, 10 mL, IV Push, BID Normal Saline Flush 0.9% injectable solution, 10 mL, IV Push, As Indicated, PRN oxyCODONE, 5 mg, Oral, q4hr, PRN oxyCODONE, 10 mg, Oral, q4hr, PRN prazosin, 1 mg, Oral, Daily Rocephin, 2 g= 50 mL, IV Piggyback, q24hr vancomycin venlafaxine extended release, 150 mg, Oral, Daily Zofran, 4 mg= 2 mL, IV Push, q6hr, PRN Assessment/Plan 1. Infection of knee POD 6 s/p I&D right TKA with poly exchange Weightbearing as tolerated right lower extremity PT/OT P.o. pain control DVT prophylaxis: Lovenox, SCDs, LORAINE pedro pabloe Wound VAC change every Thursday and Thursday. Continue to monitor output Wound care consulted Continue IV vancomycin and Rocephin pending surgical cultures Infectious disease consulted. Appreciate antibiotic recommendations PICC line placed Continue to monitor surgical cultures. No growth to date GUDELIA drain intact and patent. Continue to monitor output from drain Hospitalist to continue medical management A.m. Hgb 10.6. Hemodynamically stable. Asymptomatic. Anticipate need for IV antibiotics and wound VAC on discharge. Anticipate discharge to [facility] once outpatient antibiotics and wound VAC arranged. Outpatient follow-up in 2 weeks Ordered: oxyCODONE, 5 mg, Oral, q6hr, PRN, X 5 days, # 20 tabs, 0 Refill(s), 08/01/23 6:40:00 EDT, Pharmacy: [facility] #[id number] 2. Hyponatremia Orders: enoxaparin, 0.4 mL, Subcutaneous, Daily, X 30 days, # 12 mL, 0 Refill(s), 08/26/23 6:40:00 EST, Pharmacy: [facility] #[id number] Electronically signed by Starla Marie PA-C 07/28/23 06:29 EDT Patient care discussed with Starla Marie PA-C. Agree with assessment and plan. Electronically signed by Justin Mcgowan MD 07/30/23 07:17 EDT Normal [facility] POC Glucose Randomon 023 Glucose [Mass/Vol] 281 mg/dL High 70-99 [facility] Comment on above: Performed By: #### C [id number] ####[facility] [place] [address] Glucose [Mass/Vol] 196 mg/dL High 70-99 [facility] Comment on above: Performed By: #### M G #### [facility] [address] [place] [address] Glucose [Mass/Vol] 151 mg/dL High 70-99 [facility] Comment on above: Performed By: #### C [id number] ####[facility] [place] [address] Vanco Troughon 07-28-2023 Vanco Trough 14.60 mcg/mL Normal 10.00-15.00 [facility] Comment on above: Performed By: #### E SR #### [facility] [address] [place] [address] .eGFRon 07-27-2023 GFR/1.73 sq M.predicted MDRD (S/P/Bld) [Vol rate/Area] mL/min/{1.73_m2} Normal >=60 [facility] Comment on above: Result Comment: [facility] have implemented the eGFR calculation approach that does not have a coefficient for race and that conforms to the NKF-ASN Task Force Recommendations. Stages of Chronic Kidney Disease GFR Stage 3a Mild to moderate loss of kidney function 59 to 45 Stage 3b Moderate to severe loss of kidney function 44 to 33 Stage 4 Severe loss of kidney function 29 to 15 Stage 5 Kidney failure Less than 15 GFR calculated using the CKD-Epi Creatinine Equation (2020): eGFR = 142 X min(SCr/?, 1)? X max(SCr /?, 1)-1.200 X 0.9938Age X 1.012 [if female] Abbreviations/Units: eGFR (estimated glomerular filtration rate) = mL/min/1.73 m2 SCr (standardized serum creatinine) = mg/dL ? = 0.7 (females) or 0.9 (males) ? = -0.241 (females) or -0.302 (males) min = indicates the minimum of SCr/? or 1 max = indicates the maximum of SCr/? or 1 Age = years Performed By: #### E GFR ####[facility] [place] [address] Basic Metabolic Profileon Anion gap [Moles/Vol] 10 mmol/L Normal 7-17 [facility] Comment on above: Performed By: #### M G #### [facility] [address] [place] [address] Calcium [Mass/Vol] 8.7 mg/dL Normal 8.5-10.3 [facility] Comment on above: Performed By: #### M G #### [facility] [address] [place] [address] Chloride [Moles/Vol] 101 mmol/L Normal 98-110 [facility] Comment on above: Performed By: #### M G #### [address] [address] CO2 [Moles/Vol] 28 mmol/L Normal 22-32 [facility] Comment on above: Performed By: #### M G #### [address] [address] Creatinine [Mass/Vol] 0.81 mg/dL Normal 0.61-1.24 [facility] Comment on above: Performed By: #### M G #### [address] [address] Glucose [Mass/Vol] 131 mg/dL High 70-99 [facility] Comment on above: Performed By: #### M G #### [address] [address] Potassium [Moles/Vol] 4.4 mmol/L Normal 3.4-4.8 [facility] Comment on above: Performed By: #### M G #### [address] [address] Sodium [Moles/Vol] 135 mmol/L Normal 133-142 [facility] Comment on above: Performed By: #### M G #### [address] [address] Urea nitrogen [Mass/Vol] 14 mg/dL Normal 8-26 [facility] Comment on above: Performed By: #### M G #### [address] [address] Urea nitrogen/Creatinine [Mass ratio] 17.3 mg/mg Normal 10.0-20.0 [facility] Comment on above: Performed By: #### M G #### [address] [address] CBCon 07-27-2023 Erythrocyte distribution width (RBC) [Ratio] 14.9 % High 11.6-14.8 [facility] Comment on above: Performed By: #### C BCI ####[address] [address] Hematocrit (Bld) [Volume fraction] 31.0 % Low 41.0-53.0 [facility] Comment on above: Performed By: #### C BCI ####[address] [address] Hemoglobin (Bld) [Mass/Vol] 10.3 g/dL Low 13.5-17.5 [facility] Comment on above: Performed By: #### C BCI ####[place] [id number] MCH (RBC) [Entitic mass] 30.6 pg Normal 27.0-35.0 [facility] Comment on above: Performed By: #### C BCI ####[place] [id number] MCHC 33.4 % Normal 31.0-37.0 [facility] Comment on above: Performed By: #### C BCI ####[place] [id number] MCV (RBC) [Entitic vol] 91.6 fL Normal 80.0-100.0 [facility] Comment on above: Performed By: #### C BCI ####[address] [address] Platelet 208 x10*3/mcL Normal 150-450 [facility] Comment on above: Performed By: #### C BCI ####[address] [address] Platelet mean volume (Bld) [Entitic vol] 6.6 fL Low 6.7-10.6 [facility] Comment on above: Performed By: #### C BCI ####[place] [id number] RBC 3.38 x10*6/mcL Low 4.30-5.80 [facility] Comment on above: Performed By: #### C BCI ####[place] [id number] WBC 8.3 x10*3/mcL Normal 4.5-11.0 [facility] Comment on above: Performed By: #### C BCI ####[place] [address] [place] [id number] Dietary Consultationon 07-27 Dietary Consultation Patient screened for LOS of 5.7 days. Patient is POD#5 s/p I&D right TKA. Awaiting SNF placement for IV antibiotics. Currently on 2200 kcal ADA diet. Patient has been consuming 100% of meals, 3x daily. No need for additional nutrition intervention at this time. Will monitor per LOS policy.&D right TKA. Awaiting SNF placement for IV antibiotics. Currently on 2200 kcal ADA diet. Patient has been consuming 100% of meals, 3x daily. No need for additional nutrition intervention at this time. Will monitor per LOS policy. Electronically signed by Gi Yepez RD 07/27/23 13:14 EDT Normal [facility] Infectious Disease Progress Noteon 07-27-2023 Infectious Disease Progress Note Subjective Patient assessed at bedside. Continues to have right leg pain. No complaints with wound VAC. No fevers or chills. Denies any tinnitus. IV sites are okay PICC line okay. No complaint is of shortness of breath or cough. No headaches or visual changes. Denies any nausea, vomiting or diarrhea. No abdominal pain. No complaints on urination. Possibly going to [facility] on discharge. Review of Systems All systems have been reviewed and are negative other than those listed in the HPI Objective Vitals & Measurements T: 36.9 ?C (Oral) HR: 77 (Peripheral) RR: 16 BP: 122/73 SpO2: 94% HT: 194 cm WT: 144.6 kg BMI: 36.19 Additional Vitals No qualifying data available. Lab Results Test Name Test Result Date/Time WBC 8.3 x10 Hgb 10.3 g/dL (Low) 07/27/2023 04:11 EDT Platelet 208 x10 Sodium Lvl 135 mmol/L 07/27/2023 04:11 EDT Potassium Lvl 4.4 mmol/L 07/27/2023 04:11 EDT Glucose Lvl 131 mg/dL (High) 07/27/2023 04:11 EDT BUN 14 mg/dL 07/27/2023 04:11 EDT Creatinine Lvl 0.81 mg/dL 07/27/2023 04:11 EDT Estimated GFR >60 mL/min/1.73m? 07/27/2023 04:11 EDT BUN Crea Ratio 17.3 07/27/2023 04:11 EDT Vanco Trough 19.30 mcg/mL (High) 07/26/2023 05:34 EDT Microbiology - Current Encounter No qualifying data available. Diagnostic Results (07/27/2023 15:45 EDT VL Extremity Venous Duplex Lower Right) CONCLUSIONS: Negative study for acute or chronic deep vein thrombosis on the right. [1] Physical Exam Vitals reviewed temp listed for today 36.9. Patient in no apparent distress. Conjunctiva and sclera is normal. Trach midline. Respiratory effort is even unlabored breath sounds are clear throughout. Heart tones regular murmurs auscultated. Abdomen is nondistended, nontender, bowel sounds heard. Right leg covered with wound VAC no redness or swelling noted. GUDELIA drain noted to have 110 mL output today. Answers questions appropriately. 07/22/23 Right knee cultures negative. Assessment/Plan 1. Infection of knee Labs reviewed. Cultures reviewed. Currently on Rocephin and IV vancomycin. CRF filled out. On discharge can follow-up with ID 2 weeks. Anticipated stop is 09/02. [1] VL Extremity Venous Duplex Lower Right; Jemal WATERMAN, Shadi Victor 07/27/2023 15:45 EDT Electronically signed by Linh Clemons 07/27/23 17:23 EDT History reviewed. Overall feeling okay. Labs reviewed. Continues on Vanco and Rocephin awaiting group home placement. Stop date September 02 as noted above. Electronically signed by Rubina WATERMAN, Johnny Cook. 07/27/23 20:00 EDT Normal [facility] Magnesiumon 07-27-2023 Magnesium [Mass/Vol] 1.9 mg/dL Normal 1.7-2.4 [facility] Comment on above: Performed By: #### M G #### [facility] [address] [place] [id number] Orthopedic Progress Noteon 1 Orthopedic Progress Note Subjective Patient resting comfortably in bed. Pain well controlled. Ambulating well with assistance. Drain continues to have output now that is not wrapped in Carlos wrap. Denies any chest pain, shortness of breath, nausea, lightheadedness, dizziness, calf pain, or numbness and tingling in his foot. Objective Vitals & Measurements T: 36.4 ?C (Oral) HR: 73 (Peripheral) RR: 16 BP: 185/72 SpO2: 94% HT: 194 cm WT: 144.6 kg BMI: 36.19 Additional Vitals No qualifying data available. Lab Results Microbiology - Current Encounter No qualifying data available. Diagnostic Results Diagnostic Radiology XR PICC Floor Insert 07/24/23 10:04:48 IMPRESSION: 1. New right upper extremity PICC in adequate position. 2. Linear right perihilar probable atelectasis. Signed By: Brianda WATERMAN, Chris Finney Physical Exam General exam: Patient is a well-appearing male resting comfortably no acute distress. Patient is awake alert and orient x3. Norm and affect. Right lower extremity: Wound VAC intact and maintaining suction. Minimal output since time of surgery. Drain dressing clean, dry, and intact without evidence of drainage or shadowing. Mild edema around knee. Skin otherwise intact. 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 GUDELIA drain had approximately 140cc of serosanguineous drainage out in last 24 hours. Motor intact quad, hamstring, TA, GSC, EHL, FHL. Sensation intact light touch through knee, calf, gaitan, ankle, and foot. 1+ DP pulse. Medications Inpatient acetaminophen, 650 mg, Oral, q6hr, PRN acetaminophen, 650 mg, Oral, QID acetaminophen, 650 mg, Oral, q4hr, PRN amLODIPine, 5 mg, Oral, Daily atorvastatin, 10 mg, Oral, Daily Breo Ellipta 100 mcg-25 mcg/inh inhalation powder, 1 inh, Inhale, Daily calcium carbonate, 1000 mg, Oral, q6hr, PRN clonazePAM, 1 mg, Oral, TID Colace, 100 mg, Oral, BID Dextrose 10% in Water IV Piggyback, 125 mL, IV Piggyback, As Indicated, PRN diphenhydrAMINE, 25 mg, Oral, HS (at bedtime), PRN docusate sodium, 100 mg, Oral, Daily, PRN enoxaparin, 40 mg= 0.4 mL, Subcutaneous, Daily fluticasone 50 mcg/inh nasal spray, 50 mcg= 1 sprays, Nasal, qAM gabapentin, 600 mg, Oral, TID glimepiride, 4 mg, Oral, BID glucagon, 1 mg, Subcutaneous, As Indicated, PRN hydrOXYzine, 50 mg, Oral, TID insulin aspart, see comments, Subcutaneous, ACHS Levemir, 15 units, Subcutaneous, HS (at bedtime) levothyroxine, 125 mcg, Oral, Daily lisinopril, 20 mg, Oral, Daily loratadine, 10 mg, Oral, Daily meloxicam, 7.5 mg, Oral, Daily MiraLax, 17 g= 1 EA, Oral, Daily MiraLax, 17 g= 1 EA, Oral, Daily, PRN naloxone, 0.4 mg= 1 mL, IV Push, q2min, PRN Normal Saline Flush 0.9% injectable solution, 10 mL, IV Push, BID Normal Saline Flush 0.9% injectable solution, 10 mL, IV Push, As Indicated, PRN oxyCODONE, 5 mg, Oral, q4hr, PRN oxyCODONE, 10 mg, Oral, q4hr, PRN prazosin, 1 mg, Oral, Daily Rocephin, 2 g= 50 mL, IV Piggyback, q24hr vancomycin venlafaxine extended release, 150 mg, Oral, Daily Zofran, 4 mg= 2 mL, IV Push, q6hr, PRN Assessment/Plan 1. Infection of knee POD 5 s/p I&D right TKA with poly exchange Weightbearing as tolerated right lower extremity PT/OT P.o. pain control DVT prophylaxis: Lovenox, SCDs, LORAINE hose Wound VAC change every Thursday and Thursday. Continue to monitor output Wound care consulted Continue IV vancomycin and Rocephin pending surgical cultures Infectious disease consulted. Appreciate antibiotic recommendations PICC line placed Continue to monitor surgical cultures. Preliminary cultures show no bacteria GUDELIA drain intact and patent. Continue to monitor output from drain Hospitalist to continue medical management A.m. Hgb 10.3. Hemodynamically stable. Asymptomatic. Anticipate need for IV antibiotics and wound VAC on discharge. Anticipate discharge home versus ECF once outpatient antibiotics and wound VAC arranged. Outpatient follow-up in 2 weeks 2. Hyponatremia Electronically signed by Starla Marie PA-C 07/27/23 06:38 EDT Patient seen and evaluated. Agree with assessment and plan per Starla Marie PA-C. Patient awaiting arrangement of outpatient antibiotics. Anticipate DC once antibiotics arranged. Continue to monitor drain output. Electronically signed by Justin Mcgowan MD 07/27/23 06:41 EDT Normal [facility] POC Glucose Randomon 023 Glucose [Mass/Vol] 268 mg/dL High 70-99 [facility] Comment on above: Performed By: #### M G #### [address] [address] Glucose [Mass/Vol] 163 mg/dL High 70-99 [facility] Comment on above: Performed By: #### E GFR #### [address] [address] Glucose [Mass/Vol] 185 mg/dL High 70-99 [facility] Comment on above: Performed By: #### E GFR #### [address] [place] [address] Glucose [Mass/Vol] 106 mg/dL High 70-99 [facility] Comment on above: Performed By: #### E GFR #### [address] [address] Progress Note-Nurseon 2022 Progress Note-Nurse Reassessment of righ t anterior surgical incision: 13 sutures remain intact 30X0.5X0.5cm / suture line well approximated 1 spot of drainage with cleansing with Normal Saline the suture line @ central incision/ Both chelsea incision cleansed with Normal Saline/ sterile 4x4 dry gauze/ skin prep applied chelsea wound/ Paste strip applied between GUDELIA site and incision site/ Patient rated pain scale at 4 out of 10 after dressing changes Patient C/O pain at the calf site fiction writer removed 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 Mcgowan CRF completed for continuity of care Electronically signed by Teresa Hong 07/27/23 13:27 EDT Normal [facility] VL Extremity Venous Duplex Bhavin Florez 07-27-2023 VL Extremity Venous Duplex Lower Right Preliminary Technologist Report A right lower extremity venous study was performed. Appeared to be a normal venous study of the visualized veins of the right lower extremity. No evidence of acute or chronic DVT. Limited visualization of the posterior tibial veins due to swelling and vessel depth. The peroneal veins were not visualized due to swelling and vessel depth. Normal comparative study of the left common femoral vein. Results were called to GEE Casillas on the 6th floor at 15:45. Coat Room Attendant: Simone Jones, RVT Radiologist Report CLINICAL HISTORY: Right lower extremity swelling. EXAMINATION: Real-time sonogram of the right lower extremity was performed and supplemented with compression, augmentation and color flow Doppler. FINDINGS: Deep Veins: No thrombus. Evaluation below the knee was limited. The peroneal veins could not be visualized. There is limited evaluation of the posterior tibial veins. Compression and augmentation: Normal.. Venous blood flow: Normal phasic flow. Superficial Veins: No superficial thrombus. Varicosities: None. Collaterals: Unremarkable. Other: Edema was noted. Images of the left common femoral vein demonstrated patency with normal color flow Doppler and augmentation. CONCLUSIONS: Negative study for acute or chronic deep vein thrombosis on the right. Final Signed by: Shadi Joaquin MD Signed (Electronic Signature): 07.27.2023 5:01 pm Transcribed by: Simone Jones Transcribed DT/TM: 07.27.2023 3:48 (If Report is Signed, Electronically Signed in Other Vendor System) Normal [facility] .eGFRon 07-26-2023 GFR/1.73 sq M.predicted MDRD (S/P/Bld) [Vol rate/Area] mL/min/{1.73_m2} Normal >=60 [facility] Comment on above: Result Comment: [facility] have implemented the eGFR calculation approach that does not have a coefficient for race and that conforms to the NKF-ASN Task Force Recommendations. Stages of Chronic Kidney Disease GFR Stage 3a Mild to moderate loss of kidney function 59 to 45 Stage 3b Moderate to severe loss of kidney function 44 to 33 Stage 4 Severe loss of kidney function 29 to 15 Stage 5 Kidney failure Less than 15 GFR calculated using the CKD-Epi Creatinine Equation (2020): eGFR = 142 X min(SCr/?, 1)? X max(SCr /?, 1)-1.200 X 0.9938Age X 1.012 [if female] Abbreviations/Units: eGFR (estimated glomerular filtration rate) = mL/min/1.73 m2 SCr (standardized serum creatinine) = mg/dL ? = 0.7 (females) or 0.9 (males) ? = -0.241 (females) or -0.302 (males) min = indicates the minimum of SCr/? or 1 max = indicates the maximum of SCr/? or 1 Age = years Performed By: #### E GFR #### [address] [address] Basic Metabolic Profileon Anion gap [Moles/Vol] 12 mmol/L Normal 7-17 [facility] Comment on above: Performed By: #### M G #### [address] [address] Calcium [Mass/Vol] 8.6 mg/dL Normal 8.5-10.3 [facility] Comment on above: Performed By: #### M G #### [address] [address] Chloride [Moles/Vol] 102 mmol/L Normal 98-110 [facility] Comment on above: Performed By: #### M G #### [address] [address] CO2 [Moles/Vol] 27 mmol/L Normal 22-32 [facility] Comment on above: Performed By: #### M G #### [address] [address] Creatinine [Mass/Vol] 0.72 mg/dL Normal 0.61-1.24 [facility] Comment on above: Performed By: #### M G #### [address] [address] Glucose [Mass/Vol] 127 mg/dL High 70-99 [facility] Comment on above: Performed By: #### M G #### [address] [address] Potassium [Moles/Vol] 4.5 mmol/L Normal 3.4-4.8 [facility] Comment on above: Performed By: #### M G #### [address] [address] Sodium [Moles/Vol] 136 mmol/L Normal 133-142 [facility] Comment on above: Performed By: #### M G #### [address] [address] Urea nitrogen [Mass/Vol] 12 mg/dL Normal 8-26 [facility] Comment on above: Performed By: #### M G #### [address] [address] Urea nitrogen/Creatinine [Mass ratio] 16.7 mg/mg Normal 10.0-20.0 [facility] Comment on above: Performed By: #### M G #### [address] [address] CBCon 07-26-2023 Erythrocyte distribution width (RBC) [Ratio] 14.7 % Normal 11.6-14.8 [facility] Comment on above: Performed By: #### C [id number] #### [address] [address] Hematocrit (Bld) [Volume fraction] 30.2 % Low 41.0-53.0 [facility] Comment on above: Performed By: #### C [id number] #### [address] [address] Hemoglobin (Bld) [Mass/Vol] 10.3 g/dL Low 13.5-17.5 [facility] Comment on above: Performed By: #### C [id number] #### [address] [address] MCH (RBC) [Entitic mass] 31.1 pg Normal 27.0-35.0 [facility] Comment on above: Performed By: #### C [id number] #### [address] [address] MCHC 34.1 % Normal 31.0-37.0 [facility] Comment on above: Performed By: #### C [id number] #### [address] [address] MCV (RBC) [Entitic vol] 91.3 fL Normal 80.0-100.0 [facility] Comment on above: Performed By: #### C [id number] #### [address] [address] Platelet 178 x10*3/mcL Normal 150-450 [facility] Comment on above: Performed By: #### C [id number] #### [address] [address] Platelet mean volume (Bld) [Entitic vol] 6.7 fL Normal 6.7-10.6 [facility] Comment on above: Performed By: #### C [id number] #### [place] [id number] RBC 3.31 x10*6/mcL Low 4.30-5.80 [facility] Comment on above: Performed By: #### C [id number] #### [address] [address] WBC 6.8 x10*3/mcL Normal 4.5-11.0 [facility] Comment on above: Performed By: #### C [id number] #### [address] [address] Magnesiumon 07-26-2023 Magnesium [Mass/Vol] 1.6 mg/dL Low 1.7-2.4 [facility] Comment on above: Performed By: #### M G #### [place] [id number] Orthopedic Progress Noteon 1 Orthopedic Progress Note Subjective Patient resting comfortably in bedside chair. Leg being elevated. Pain well controlled. Ambulating well with assistance. Denies chest pain, shortness of breath, nausea, vomiting, lightheadedness, dizziness, calf pain, or numbness and tingling in his toes and feet. Objective Vitals & Measurements T: 36.8 ?C (Oral) HR: 78 (Peripheral) RR: 16 BP: 142/84 SpO2: 97% HT: 194 cm WT: 144.5 kg BMI: 36.19 Additional Vitals No qualifying data available. Lab Results Microbiology - Current Encounter No qualifying data available. Diagnostic Results Diagnostic Radiology XR PICC Floor Insert 07/24/23 10:04:48 IMPRESSION: 1. New right upper extremity PICC in adequate position. 2. Linear right perihilar probable atelectasis. Signed By: Chris Lamar MD Physical Exam General exam: Patient is a well-appearing male resting comfortably no acute distress. Patient is awake alert and orient x3. Norm and affect. Right lower extremity: Wound VAC intact and maintaining suction. Minimal output since time of surgery.. Drain dressing clean, dry, and intact without evidence of drainage or shadowing. Mild edema around knee. Skin otherwise intact. 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 GUDELIA drain had approximately 5 cc of serosanguineous drainage out in last 24 hours. Upon removing Carlos wrap got approximately 60 cc out of drain within a few minutes. Motor intact quad, hamstring, TA, GSC, EHL, FHL. Sensation intact light touch through knee, calf, gaitan, ankle, and foot. 1+ DP pulse. Medications Inpatient acetaminophen, 650 mg, Oral, q6hr, PRN acetaminophen, 650 mg, Oral, QID acetaminophen, 650 mg, Oral, q4hr, PRN amLODIPine, 5 mg, Oral, Daily atorvastatin, 10 mg, Oral, Daily Breo Ellipta 100 mcg-25 mcg/inh inhalation powder, 1 inh, Inhale, Daily calcium carbonate, 1000 mg, Oral, q6hr, PRN clonazePAM, 1 mg, Oral, TID Colace, 100 mg, Oral, BID Dextrose 10% in Water IV Piggyback, 125 mL, IV Piggyback, As Indicated, PRN diphenhydrAMINE, 25 mg, Oral, HS (at bedtime), PRN docusate sodium, 100 mg, Oral, Daily, PRN enoxaparin, 40 mg= 0.4 mL, Subcutaneous, Daily fluticasone 50 mcg/inh nasal spray, 50 mcg= 1 sprays, Nasal, qAM gabapentin, 600 mg, Oral, TID glimepiride, 4 mg, Oral, BID glucagon, 1 mg, Subcutaneous, As Indicated, PRN hydrOXYzine, 50 mg, Oral, TID insulin aspart, see comments, Subcutaneous, ACHS Levemir, 15 units, Subcutaneous, HS (at bedtime) levothyroxine, 125 mcg, Oral, Daily lisinopril, 20 mg, Oral, Daily loratadine, 10 mg, Oral, Daily meloxicam, 7.5 mg, Oral, Daily MiraLax, 17 g= 1 EA, Oral, Daily MiraLax, 17 g= 1 EA, Oral, Daily, PRN naloxone, 0.4 mg= 1 mL, IV Push, q2min, PRN Normal Saline Flush 0.9% injectable solution, 10 mL, IV Push, BID Normal Saline Flush 0.9% injectable solution, 10 mL, IV Push, As Indicated, PRN oxyCODONE, 5 mg, Oral, q4hr, PRN oxyCODONE, 10 mg, Oral, q4hr, PRN prazosin, 1 mg, Oral, Daily Rocephin, 2 g= 50 mL, IV Piggyback, q24hr vancomycin venlafaxine extended release, 150 mg, Oral, Daily Zofran, 4 mg= 2 mL, IV Push, q6hr, PRN Assessment/Plan 1. Infection of knee POD 4 s/p I&D right TKA with poly exchange Weightbearing as tolerated right lower extremity PT/OT P.o. pain control DVT prophylaxis: Kely Hernandez TED hose Wound VAC change every Thursday and Thursday. Continue to monitor output Wound care consulted Continue IV vancomycin and Rocephin pending surgical cultures Infectious disease consulted. Appreciate antibiotic recommendations PICC line placed Continue to monitor surgical cultures. Preliminary cultures show no bacteria GUDELIA drain intact and patent no. 5cc serosanguineous drainage out last 24 hrs, however once Carlos wrap was removed and drain line stripped, got approximately 60 cc of bloody to serosanguineous drainage out in less than 5 minutes. We will keep drain at this time and anticipate removal tomorrow morning. Continue to monitor output from drain Hospitalist to continue medical management A.m. Hgb 10.3. Hemodynamically stable. Asymptomatic. Anticipate need for IV antibiotics and wound VAC on discharge. Anticipate discharge home versus ECF once outpatient antibiotics and wound VAC arranged. Outpatient follow-up in 2 weeks 2. Hyponatremia Electronically signed by Starla Marie PA-C 07/26/23 10:07 EDT Patient care discussed with Starla Marie PA-C. Agree with assessment and plan. Electronically signed by Justin Mcgowan MD 07/27/23 06:22 EDT Normal [facility] POC Glucose Randomon 023 Glucose [Mass/Vol] 224 mg/dL High 70-99 [facility] Comment on above: Performed By: #### C [id number] ####[address] [address] Glucose [Mass/Vol] 201 mg/dL High 70-99 [facility] Comment on above: Performed By: #### C [id number] ####[address] [address] Glucose [Mass/Vol] 208 mg/dL High 70-99 [facility] Comment on above: Performed By: #### C [id number] #### [address] [address] Glucose [Mass/Vol] 126 mg/dL High 70-99 [facility] Comment on above: Performed By: #### C [id number] ####[address] [address] Vanco Troughon 07-26-2023 Vanco Trough 19.30 mcg/mL High 10.00-15.00 [facility] Comment on above: Order Comment: Add 0 800 Vanco to morning labs that were drawn per Jolanta Mcfadden RN. 07/26/2023 05:52 ALS Performed By: #### V ANCT ####[address] [address] .eGFRon 07-25-2023 GFR/1.73 sq M.predicted MDRD (S/P/Bld) [Vol rate/Area] mL/min/{1.73_m2} Normal >=60 [facility] Comment on above: Result Comment: [facility] have implemented the eGFR calculation approach that does not have a coefficient for race and that conforms to the NKF-ASN Task Force Recommendations. Stages of Chronic Kidney Disease GFR Stage 3a Mild to moderate loss of kidney function 59 to 45 Stage 3b Moderate to severe loss of kidney function 44 to 33 Stage 4 Severe loss of kidney function 29 to 15 Stage 5 Kidney failure Less than 15 GFR calculated using the CKD-Epi Creatinine Equation (2020): eGFR = 142 X min(SCr/?, 1)? X max(SCr /?, 1)-1.200 X 0.9938Age X 1.012 [if female] Abbreviations/Units: eGFR (estimated glomerular filtration rate) = mL/min/1.73 m2 SCr (standardized serum creatinine) = mg/dL ? = 0.7 (females) or 0.9 (males) ? = -0.241 (females) or -0.302 (males) min = indicates the minimum of SCr/? or 1 max = indicates the maximum of SCr/? or 1 Age = years Performed By: #### C [id number] #### [address] [address] Basic Metabolic Profileon Anion gap [Moles/Vol] 10 mmol/L Normal 7-17 [facility] Comment on above: Performed By: #### M G #### [address] [address] Calcium [Mass/Vol] 8.0 mg/dL Low 8.5-10.3 [facility] Comment on above: Performed By: #### M G #### [place] [address] [place] [address] Chloride [Moles/Vol] 102 mmol/L Normal 98-110 [facility] Comment on above: Performed By: #### M G #### [place] [address] [place] [address] CO2 [Moles/Vol] 25 mmol/L Normal 22-32 [facility] Comment on above: Performed By: #### M G #### [address] [address] Creatinine [Mass/Vol] 0.65 mg/dL Normal 0.61-1.24 [facility] Comment on above: Performed By: #### M G #### [address] [address] Glucose [Mass/Vol] 280 mg/dL High 70-99 [facility] Comment on above: Performed By: #### M G #### [address] [address] Potassium [Moles/Vol] 4.5 mmol/L Normal 3.4-4.8 [facility] Comment on above: Performed By: #### M G #### [address] [address] Sodium [Moles/Vol] 133 mmol/L Normal 133-142 [facility] Comment on above: Performed By: #### M G #### [address] [address] Urea nitrogen [Mass/Vol] 13 mg/dL Normal 8-26 [facility] Comment on above: Performed By: #### M G #### [address] [address] Urea nitrogen/Creatinine [Mass ratio] 20.0 mg/mg Normal 10.0-20.0 [facility] Comment on above: Performed By: #### M G #### [address] [address] CBCon 07-25-2023 Erythrocyte distribution width (RBC) [Ratio] 14.7 % Normal 11.6-14.8 [facility] Comment on above: Performed By: #### C BCI ####[address] [address] Hematocrit (Bld) [Volume fraction] 29.0 % Low 41.0-53.0 [facility] Comment on above: Performed By: #### C BCI ####[address] [address] Hemoglobin (Bld) [Mass/Vol] 9.9 g/dL Low 13.5-17.5 [facility] Comment on above: Performed By: #### C BCI ####[place] [id number] MCH (RBC) [Entitic mass] 31.5 pg Normal 27.0-35.0 [facility] Comment on above: Performed By: #### C BCI ####[place] [id number] MCHC 34.0 % Normal 31.0-37.0 [facility] Comment on above: Performed By: #### C BCI ####[place] [id number] MCV (RBC) [Entitic vol] 92.6 fL Normal 80.0-100.0 [facility] Comment on above: Performed By: #### C BCI ####[place] [id number] Platelet 153 x10*3/mcL Normal 150-450 [facility] Comment on above: Performed By: #### C BCI ####[place] [id number] Platelet mean volume (Bld) [Entitic vol] 6.7 fL Normal 6.7-10.6 [facility] Comment on above: Performed By: #### C BCI ####[place] [id number] RBC 3.13 x10*6/mcL Low 4.30-5.80 [facility] Comment on above: Performed By: #### C BCI ####[place] [id number] WBC 5.8 x10*3/mcL Normal 4.5-11.0 [facility] Comment on above: Performed By: #### C BCI ####[place] [id number] Magnesiumon 07-25-2023 Magnesium [Mass/Vol] 1.5 mg/dL Low 1.7-2.4 [facility] Comment on above: Performed By: #### M G ####[address] [place] [address] Orthopedic Progress Noteon 1 Orthopedic Progress Note Subjective Patient resting comfortably in bed. Pain well controlled. He is ambulating with assistance. Decreasing output from GUDELIA drain. PICC line placed yesterday. Urinating without difficulty. Objective Vitals & Measurements T: 36.7 ?C (Oral) HR: 79 (Peripheral) RR: 16 BP: 132/79 SpO2: 93% HT: 194 cm WT: 146.5 kg BMI: 36.19 Additional Vitals No qualifying data available. Lab Results Microbiology - Current Encounter No qualifying data available. Diagnostic Results Diagnostic Radiology XR PICC Floor Insert 07/24/23 10:04:48 IMPRESSION: 1. New right upper extremity PICC in adequate position. 2. Linear right perihilar probable atelectasis. Signed By: Brianda WATERMAN, Chris Finney Physical Exam General exam: Patient is a well-appearing male resting comfortably no acute distress. Patient is awake alert and orient x3. Norm and affect. Right lower extremity: Dressing clean dry and intact. Wound VAC in place with no significant output. 93 cc serosanguineous output from drain over last 24 hours. Motor intact quad, hamstring, TA, GSC. Sensation intact SPN, DPN, sural, saphenous, tibial nerve distribution. 1+ DP pulse. Toes warm well perfused. No calf pain. Negative Homans. Medications Inpatient acetaminophen, 650 mg, Oral, q6hr, PRN acetaminophen, 650 mg, Oral, QID acetaminophen, 650 mg, Oral, q4hr, PRN amLODIPine, 5 mg, Oral, Daily atorvastatin, 10 mg, Oral, Daily Breo Ellipta 100 mcg-25 mcg/inh inhalation powder, 1 inh, Inhale, Daily calcium carbonate, 1000 mg, Oral, q6hr, PRN clonazePAM, 1 mg, Oral, TID Colace, 100 mg, Oral, BID Dextrose 10% in Water IV Piggyback, 125 mL, IV Piggyback, As Indicated, PRN diphenhydrAMINE, 25 mg, Oral, HS (at bedtime), PRN docusate sodium, 100 mg, Oral, Daily, PRN enoxaparin, 40 mg= 0.4 mL, Subcutaneous, Daily fluticasone 50 mcg/inh nasal spray, 50 mcg= 1 sprays, Nasal, qAM gabapentin, 600 mg, Oral, TID glimepiride, 4 mg, Oral, BID glucagon, 1 mg, Subcutaneous, As Indicated, PRN hydrOXYzine, 50 mg, Oral, TID insulin aspart, see comments, Subcutaneous, ACHS Levemir, 15 units, Subcutaneous, HS (at bedtime) levothyroxine, 125 mcg, Oral, Daily lisinopril, 20 mg, Oral, Daily loratadine, 10 mg, Oral, Daily meloxicam, 7.5 mg, Oral, Daily MiraLax, 17 g= 1 EA, Oral, Daily, PRN naloxone, 0.4 mg= 1 mL, IV Push, q2min, PRN Normal Saline Flush 0.9% injectable solution, 10 mL, IV Push, BID Normal Saline Flush 0.9% injectable solution, 10 mL, IV Push, As Indicated, PRN oxyCODONE, 5 mg, Oral, q4hr, PRN oxyCODONE, 10 mg, Oral, q4hr, PRN prazosin, 1 mg, Oral, Daily Rocephin, 2 g= 50 mL, IV Piggyback, q24hr vancomycin venlafaxine extended release, 150 mg, Oral, Daily Zofran, 4 mg= 2 mL, IV Push, q6hr, PRN Assessment/Plan 1. Infection of knee POD 3 s/p I&D right TKA with poly exchange Weightbearing as tolerated right lower extremity PT/OT P.o. pain control DVT prophylaxis: Lovenox, SCDs, LORAINE hose Wound VAC change every Thursday and Thursday. Continue to monitor output Wound care consulted Continue IV vancomycin and Rocephin pending surgical cultures Infectious disease consulted. Appreciate antibiotic recommendations PICC line placed Continue to monitor surgical cultures. Preliminary cultures show no bacteria GUDELIA drain intact and patent. 93 cc bloody serosanguineous drainage out last 24 hrs. Continue to monitor output Hospitalist to continue medical management A.m. Hgb 10.1 yesterday. Hemodynamically stable. Asymptomatic. Anticipate need for IV antibiotics and wound VAC on discharge. Anticipate discharge home versus ECF once outpatient antibiotics and wound VAC arranged. Outpatient follow-up in 2 weeks 2. Hyponatremia Orders: vancomycin, 1,750 mg, IV Piggyback, Soln-IV, q8hr, infuse over 105 minutes, First Dose: 07/24/23 17:00:00 EDT, Dispense From Location: [facility], Joint Infection, 07/24/23 17:00:00 EDT Electronically signed by Justin Mcgowan MD 07/25/23 06:22 EDT Normal [facility] POC Glucose Randomon 023 Glucose [Mass/Vol] 234 mg/dL High 70-99 [facility] Comment on above: Performed By: #### M G #### [address] [address] Glucose [Mass/Vol] 201 mg/dL High 70-99 [facility] Comment on above: Performed By: #### C [id number] ####[address] [address] Glucose [Mass/Vol] 245 mg/dL High 70-99 [facility] Comment on above: Performed By: #### C [id number] ####[address] [address] Glucose [Mass/Vol] 138 mg/dL High 70-99 [facility] Comment on above: Performed By: #### M G #### [address] [address] Vanco Troughon 07-25-2023 Vanco Trough 22.80 mcg/mL High 10.00-15.00 [facility] Comment on above: Performed By: #### E GFR #### [address] [address] .eGFRon 07-24-2023 GFR/1.73 sq M.predicted MDRD (S/P/Bld) [Vol rate/Area] mL/min/{1.73_m2} Normal >=60 [facility] Comment on above: Result Comment: [facility] have implemented the eGFR calculation approach that does not have a coefficient for race and that conforms to the NKF-ASN Task Force Recommendations. Stages of Chronic Kidney Disease GFR Stage 3a Mild to moderate loss of kidney function 59 to 45 Stage 3b Moderate to severe loss of kidney function 44 to 33 Stage 4 Severe loss of kidney function 29 to 15 Stage 5 Kidney failure Less than 15 GFR calculated using the CKD-Epi Creatinine Equation (2020): eGFR = 142 X min(SCr/?, 1)? X max(SCr /?, 1)-1.200 X 0.9938Age X 1.012 [if female] Abbreviations/Units: eGFR (estimated glomerular filtration rate) = mL/min/1.73 m2 SCr (standardized serum creatinine) = mg/dL ? = 0.7 (females) or 0.9 (males) ? = -0.241 (females) or -0.302 (males) min = indicates the minimum of SCr/? or 1 max = indicates the maximum of SCr/? or 1 Age = years Performed By: #### E GFR ####[facility] [place] [address] Basic Metabolic Profileon Anion gap [Moles/Vol] 11 mmol/L Normal 7-17 [facility] Comment on above: Performed By: #### M G #### [facility] [address] [place] [address] Calcium [Mass/Vol] 8.0 mg/dL Low 8.5-10.3 [facility] Comment on above: Performed By: #### M G #### [facility] [address] [place] [address] Chloride [Moles/Vol] 101 mmol/L Normal 98-110 [facility] Comment on above: Performed By: #### M G #### [facility] [address] [place] [address] CO2 [Moles/Vol] 24 mmol/L Normal 22-32 [facility] Comment on above: Performed By: #### M G #### [address] [address] Creatinine [Mass/Vol] 0.66 mg/dL Normal 0.61-1.24 [facility] Comment on above: Performed By: #### M G #### [address] [address] Glucose [Mass/Vol] 168 mg/dL High 70-99 [facility] Comment on above: Performed By: #### M G #### [address] [address] Potassium [Moles/Vol] 4.6 mmol/L Normal 3.4-4.8 [facility] Comment on above: Performed By: #### M G #### [address] [address] Sodium [Moles/Vol] 131 mmol/L Low 133-142 [facility] Comment on above: Performed By: #### M G #### [address] [address] Urea nitrogen [Mass/Vol] 11 mg/dL Normal 8-26 [facility] Comment on above: Performed By: #### M G #### [address] [address] Urea nitrogen/Creatinine [Mass ratio] 16.7 mg/mg Normal 10.0-20.0 [facility] Comment on above: Performed By: #### M G #### [address] [address] CBCon 07-24-2023 Erythrocyte distribution width (RBC) [Ratio] 14.6 % Normal 11.6-14.8 [facility] Comment on above: Performed By: #### C BCI ####[address] [address] Hematocrit (Bld) [Volume fraction] 29.9 % Low 41.0-53.0 [facility] Comment on above: Performed By: #### C BCI ####[place] [id number] Hemoglobin (Bld) [Mass/Vol] 10.1 g/dL Low 13.5-17.5 [facility] Comment on above: Performed By: #### C BCI ####[place] [id number] MCH (RBC) [Entitic mass] 31.8 pg Normal 27.0-35.0 [facility] Comment on above: Performed By: #### C BCI ####[place] [address] MCHC 33.9 % Normal 31.0-37.0 [facility] Comment on above: Performed By: #### C BCI ####[place] [id number] MCV (RBC) [Entitic vol] 93.8 fL Normal 80.0-100.0 [facility] Comment on above: Performed By: #### C BCI ####[place] [id number] Platelet 126 x10*3/mcL Low 150-450 [facility] Comment on above: Performed By: #### C BCI ####[place] [id number] Platelet mean volume (Bld) [Entitic vol] 6.8 fL Normal 6.7-10.6 [facility] Comment on above: Performed By: #### C BCI ####[place] [id number] RBC 3.19 x10*6/mcL Low 4.30-5.80 [facility] Comment on above: Performed By: #### C BCI ####[place] [id number] WBC 6.9 x10*3/mcL Normal 4.5-11.0 [facility] Comment on above: Performed By: #### C BCI ####[place] [id number] Infectious Disease Progress Noteon 07-24-2023 Infectious Disease Progress Note Subjective Patient assessed at bedside. Continues to have pain in right knee currently rates it a 7 out of 10. No fevers or chills. Did have PICC line placed earlier today no complaints. No headaches or visual changes. No chest pain or heart palpitations. Denies any nausea, vomiting or diarrhea. No appetite changes. No complaints on urination. Discharge pending set up with home health at home. Review of Systems All systems have been reviewed and are negative other than those listed in the HPI Objective Vitals & Measurements T: 36.7 ?C (Oral) HR: 86 (Peripheral) RR: 16 BP: 123/75 SpO2: 96% HT: 194 cm WT: 146.5 kg BMI: 36.19 Additional Vitals No qualifying data available. Lab Results Microbiology - Current Encounter No qualifying data available. Diagnostic Results Diagnostic Radiology XR PICC Floor Insert 07/24/23 10:04:48 IMPRESSION: 1. New right upper extremity PICC in adequate position. 2. Linear right perihilar probable atelectasis. Signed By: Chris Lamar MD Physical Exam Vitals reviewed Tmax 36.7. Upon entering room patient no apparent distress observed to be sleeping awakens easily. Conjunctiva and sclera is normal. Trach is midline. Respiratory effort is even and unlabored. Abdomen is nondistended. Right knee covered with dressing wound VAC in place. Answers questions appropriately. Assessment/Plan 1. Infection of knee Labs reviewed. Cultures reviewed. No growth so far. Continue with vancomycin and Rocephin. PICC line placed. Anticipated stop 09/02. Discharge pending home health set up for IV antibiotics. Currently he is on IV vancomycin 3 times a day. We will talk further with Dr. Cespedes. For now continue Rocephin and vancomycin. We will continue to follow. Electronically signed by Linh Clemons 07/24/23 11:09 EDT History reviewed. Overall feeling okay. Will try to get vancomycin down to twice daily dosing which is usually the norm for his age. Electronically signed by Johnny Cespedes MD 07/24/23 16:49 EDT Normal [facility] Magnesiumon 07-24-2023 Magnesium [Mass/Vol] 1.6 mg/dL Low 1.7-2.4 [facility] Comment on above: Performed By: #### M G ####[facility] [place] [address] Orthopedic Progress Noteon 1 Orthopedic Progress Note Subjective Patient resting comfortably in bed. Nurses in the room to place PICC line. Does note some burning sensation in his foot this morning, which she states is intermittently normal for him. Denies any chest pain, shortness of breath, nausea, vomiting, fever, chills, calf pain, or new/worsening numbness in his toes and feet. Objective Vitals & Measurements T: 36.7 ?C (Oral) HR: 86 (Peripheral) RR: 16 BP: 123/75 SpO2: 96% HT: 194 cm WT: 146.5 kg BMI: 36.19 Additional Vitals No qualifying data available. Lab Results Microbiology - Current Encounter No qualifying data available. Physical Exam General examination: Patient is a well-appearing 68-year-old male resting comfortably in bed. He is alert and oriented x3 and in no acute distress. Answer questions appropriately. Normal mood and affect. Right lower extremity: Carlos wrap is clean, dry, and intact. Drain dressing clean, dry, and intact without evidence of drainage or shadowing. Mild edema around knee. Skin otherwise intact. 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 Wound VAC intact and maintaining suction. GUDELIA drain had approximately 155 cc of bloody serosanguineous drainage out since surgery. Motor intact quad, hamstring, TA, GSC, EHL, FHL. Sensation intact light touch through knee, calf, gaitan, ankle, and foot. 1+ DP pulse. Medications Inpatient acetaminophen, 650 mg, Oral, q6hr, PRN acetaminophen, 650 mg, Oral, QID acetaminophen, 650 mg, Oral, q4hr, PRN amLODIPine, 5 mg, Oral, Daily atorvastatin, 10 mg, Oral, Daily Breo Ellipta 100 mcg-25 mcg/inh inhalation powder, 1 inh, Inhale, Daily calcium carbonate, 1000 mg, Oral, q6hr, PRN clonazePAM, 1 mg, Oral, TID Colace, 100 mg, Oral, BID Dextrose 10% in Water IV Piggyback, 125 mL, IV Piggyback, As Indicated, PRN diphenhydrAMINE, 25 mg, Oral, HS (at bedtime), PRN docusate sodium, 100 mg, Oral, Daily, PRN enoxaparin, 40 mg= 0.4 mL, Subcutaneous, Daily fluticasone 50 mcg/inh nasal spray, 50 mcg= 1 sprays, Nasal, qAM gabapentin, 600 mg, Oral, TID glimepiride, 4 mg, Oral, BID glucagon, 1 mg, Subcutaneous, As Indicated, PRN hydrOXYzine, 50 mg, Oral, TID insulin aspart, see comments, Subcutaneous, ACHS Levemir, 15 units, Subcutaneous, HS (at bedtime) levothyroxine, 125 mcg, Oral, Daily lisinopril, 20 mg, Oral, Daily loratadine, 10 mg, Oral, Daily meloxicam, 7.5 mg, Oral, Daily MiraLax, 17 g= 1 EA, Oral, Daily, PRN naloxone, 0.4 mg= 1 mL, IV Push, q2min, PRN Normal Saline Flush 0.9% injectable solution, 10 mL, IV Push, BID Normal Saline Flush 0.9% injectable solution, 10 mL, IV Push, As Indicated, PRN oxyCODONE, 5 mg, Oral, q4hr, PRN oxyCODONE, 10 mg, Oral, q4hr, PRN prazosin, 1 mg, Oral, Daily Rocephin, 2 g= 50 mL, IV Piggyback, q24hr Sodium Chloride 0.9% intravenous solution 1,000 mL, 1000 mL, IV Sodium Chloride 0.9% intravenous solution 1,000 mL, 1000 mL, IV vancomycin venlafaxine extended release, 150 mg, Oral, Daily Zofran, 4 mg= 2 mL, IV Push, q6hr, PRN Assessment/Plan 1. Infection of knee POD 2 s/p I&D right TKA with poly exchange Weightbearing as tolerated right lower extremity PT/OT P.o. pain control DVT prophylaxis: Lovenox, SCDs, LORAINE hose Wound VAC change every Thursday and Thursday. Continue to monitor output Anticipate wound VAC change today Wound care consulted Continue IV vancomycin and Rocephin pending surgical cultures Infectious disease consulted. Appreciate antibiotic recommendations Anticipate PICC line being placed today Continue to monitor surgical cultures. Preliminary cultures show no bacteria GUDELIA drain intact and patent. 155 cc bloody serosanguineous drainage out since surgery. Continue to monitor output Hospitalist to continue medical management A.m. Hgb 11.6 yesterday. Hemodynamically stable. Asymptomatic. Anticipate need for IV antibiotics and wound VAC on discharge. Anticipate discharge home versus ECF once outpatient antibiotics and wound VAC arranged. 2. Hyponatremia Electronically signed by Starla Marie PA-C 07/24/23 07:00 EDT Patient care discussed with Starla Marie PA-C. Agree with assessment and plan. Electronically signed by Justin Mcgowan MD 07/24/23 15:51 EDT Normal [facility] POC Glucose Randomon 023 Glucose [Mass/Vol] 197 mg/dL High 70-99 [facility] Comment on above: Performed By: #### C [id number] ####[address] [address] Glucose [Mass/Vol] 258 mg/dL High 70-99 [facility] Comment on above: Performed By: #### C [id number] ####[address] [address] Glucose [Mass/Vol] 338 mg/dL High 70-99 [facility] Comment on above: Performed By: #### C [id number] ####[address] [address] Glucose [Mass/Vol] 341 mg/dL High 70-99 [facility] Comment on above: Performed By: #### C [id number] ####[address] [place] [address] Glucose [Mass/Vol] 167 mg/dL High 70-99 [facility] Comment on above: Performed By: #### C [id number] ####[address] [address] Progress Note-Nurseon 2022 Progress Note-Nurse First assessment per consult of wound vac dressing change to right knee surgical site 13X0.5X0.5cm with all sutures intact: scant amount of serous sanguinous drainage with dressing change: Patient tolerated dressing change well Use of Normal Saline to cleanse incision site with sterile gauze/ Skin prep applied chelsea incision/ / Drape applied in picture frame fashion/ chelsea incision/ Adaptic touch applied to cover lenka/ Black sponge topical adaptic touch/ Wound team will continue to assess and treat throughout patient stay and prepare for D/C. Electronically signed by Teresa Hong 07/24/23 14:50 EDT [facility] Progress Note-Nurse 4F single lumen Erwin r PICC solo inserted per MST in the right basilic vein 07/24/2023. Sterile field maintained. No complications noted. patient tolerated well, arm circ 35 cm cut length 44 cm. External length 0 cm. XR tip confirmation. PICC tip SVC confirmed by Dr Lamar lot [id number] exp 08/18/2024 Michelle Oshea Normal [facility] Vanco Troughon 07-24-2023 Vanco Trough 9.50 mcg/mL Low 10.00-15.00 [facility] Comment on above: Performed By: #### V ANCT ####[address] [place] [address] .eGFRon 07-23-2023 GFR/1.73 sq M.predicted MDRD (S/P/Bld) [Vol rate/Area] mL/min/{1.73_m2} Normal >=60 [facility] Comment on above: Result Comment: [facility] have implemented the eGFR calculation approach that does not have a coefficient for race and that conforms to the NKF-ASN Task Force Recommendations. Stages of Chronic Kidney Disease GFR Stage 3a Mild to moderate loss of kidney function 59 to 45 Stage 3b Moderate to severe loss of kidney function 44 to 33 Stage 4 Severe loss of kidney function 29 to 15 Stage 5 Kidney failure Less than 15 GFR calculated using the CKD-Epi Creatinine Equation (2020): eGFR = 142 X min(SCr/?, 1)? X max(SCr /?, 1)-1.200 X 0.9938Age X 1.012 [if female] Abbreviations/Units: eGFR (estimated glomerular filtration rate) = mL/min/1.73 m2 SCr (standardized serum creatinine) = mg/dL ? = 0.7 (females) or 0.9 (males) ? = -0.241 (females) or -0.302 (males) min = indicates the minimum of SCr/? or 1 max = indicates the maximum of SCr/? or 1 Age = years Performed By: #### E GFR ####[address] [address] Basic Metabolic Profileon Anion gap [Moles/Vol] 10 mmol/L Normal 7-17 [facility] Comment on above: Performed By: #### C [id number] #### [address] [address] Calcium [Mass/Vol] 8.3 mg/dL Low 8.5-10.3 [facility] Comment on above: Performed By: #### C [id number] #### [address] [address] Chloride [Moles/Vol] 103 mmol/L Normal 98-110 [facility] Comment on above: Performed By: #### C [id number] #### [address] [address] CO2 [Moles/Vol] 24 mmol/L Normal 22-32 [facility] Comment on above: Performed By: #### C [id number] #### [address] [address] Creatinine [Mass/Vol] 0.92 mg/dL Normal 0.61-1.24 [facility] Comment on above: Performed By: #### C [id number] #### [address] [address] Glucose [Mass/Vol] 218 mg/dL High 70-99 [facility] Comment on above: Performed By: #### C [id number] #### [address] [address] Potassium [Moles/Vol] 4.2 mmol/L Normal 3.4-4.8 [facility] Comment on above: Performed By: #### C [id number] #### [address] [address] Sodium [Moles/Vol] 133 mmol/L Normal 133-142 [facility] Comment on above: Performed By: #### C [id number] #### [address] [address] Urea nitrogen [Mass/Vol] 12 mg/dL Normal 8-26 [facility] Comment on above: Performed By: #### C [id number] #### [address] [address] Urea nitrogen/Creatinine [Mass ratio] 13.0 mg/mg Normal 10.0-20.0 [facility] Comment on above: Performed By: #### C [id number] #### [address] [address] C Sterile BFon 07-23-2023 C Sterile BF -- - Final No growth at 2 weeks. - Gram Stain Many White Blood Cells No organisms seen. Normal [facility] Comment on above: Performed By: #### C SBF ####[place] [address] CBCon 07-23-2023 Erythrocyte distribution width (RBC) [Ratio] 14.4 % Normal 11.6-14.8 [facility] Comment on above: Performed By: #### C BCI ####[id number] Hematocrit (Bld) [Volume fraction] 34.4 % Low 41.0-53.0 [facility] Comment on above: Performed By: #### C BCI ####[address] [id number] Hemoglobin (Bld) [Mass/Vol] 11.6 g/dL Low 13.5-17.5 [facility] Comment on above: Performed By: #### C BCI ####[address] [id number] MCH (RBC) [Entitic mass] 31.7 pg Normal 27.0-35.0 [facility] Comment on above: Performed By: #### C BCI ####[place] [address] MCHC 33.7 % Normal 31.0-37.0 [facility] Comment on above: Performed By: #### C BCI ####[address] [address] MCV (RBC) [Entitic vol] 93.8 fL Normal 80.0-100.0 [facility] Comment on above: Performed By: #### C BCI ####[address] [address] Platelet 133 x10*3/mcL Low 150-450 [facility] Comment on above: Performed By: #### C BCI ####[address] [address] Platelet mean volume (Bld) [Entitic vol] 7.2 fL Normal 6.7-10.6 [facility] Comment on above: Performed By: #### C BCI ####[address] [address] RBC 3.67 x10*6/mcL Low 4.30-5.80 [facility] Comment on above: Performed By: #### C BCI ####[address] [address] WBC 9.3 x10*3/mcL Normal 4.5-11.0 [facility] Comment on above: Performed By: #### C BCI ####[address] [address] Infectious Disease Consultat [facility] 07-23-2023 Infectious Disease Consultation Chief Complaint Transfer from [facility] secondary to postop infection Reason for Consultation Right total knee infection History of Present Illness 68-year-old male admitted on 07/21 right prosthetic knee infection. Patient has a medical history of anxiety, depression, COPD, history of gout, hypertension, high cholesterol, and type 2 diabetes. Had left knee replaced 2009 status post a back infection. Reports he had screws and pins removed from his back ended up with a left knee infection. Had a spacer put in and a PICC line for some time. Fell in 2018 shattered his left knee ended up having a revision has been doing okay since. Also has transmetatarsal amputation from a work injury 20 years ago right foot. Patient reports he underwent a right total knee replacement 06/25/2023. Was doing well for about 3 weeks getting around with a cane okay. Noticed a pinhole in the medial aspect of his wound started draining 5 or 6 days ago. Did become more swollen. Reports he went to ER a few days ago and was sent home. Went back and ended up getting transferred to this facility. Prior to admission denies any fevers or chills. No falls. Only complaint was drainage sanguinous coming from pinhole in center of wound. Was having some pain to but getting around okay. Prior to admission he was prescribed Augmentin per external pharmacy review. Reports he may have taken a day of it. Patient was transferred to [facility] from [facility] with concerns of postop infection right knee. While in the ER on 07/21 patient found to have elevated white blood cells, elevated CRP of 24.09, tachycardia and some fluctuance on anterior aspect of knee. ER spoke to Dr. Mcgowan orthopedic surgeon and decision was made to admit patient. Dr. Mcgowan saw patient on 07/22 and went to OR for revision right total knee poly exchange and application of wound VAC. Synovial cultures sent which are negative so far. Postop antibiotics initiated IV Rocephin and vancomycin. Currently is having a lot of pain. Just took a pain pill and starting to help. Currently rating 9 out of 10. Tolerating wound VAC. Denies any nausea or vomiting. Denies any headaches or visual changes. No shortness of breath or cough. Denies any abdominal pain. No history of C. difficile. No diarrhea. No complaints on urination. No rashes. Review of Systems All systems have been reviewed and are negative other than those listed in the HPI Physical Exam Vitals & Measurements T: 36.7 ?C (Oral) TMIN: 36.7 ?C (Oral) TMAX: 38.1 ?C (Temporal Artery) HR: 109 (Peripheral) RR: 18 BP: 107/63 SpO2: 92% WT: 136.5 kg Vitals reviewed. Tmax 37.7. Patient in no apparent distress. Conjunctiva and sclera is normal. Trach is midline. Respiratory effort is even unlabored breath sounds are clear throughout. Heart tones are regular and no murmurs auscultated. Abdomen is nondistended, nontender, and bowel sounds heard. Left knee incision site looks good no redness or swelling. Right knee covered with dressing and wound VAC. Bilateral lower extremities without edema. Left foot noted to have thickened toenails no open sores noted. Does have callused area on tip of left fourth toe. No redness. Right foot transmetatarsal site looks okay no redness or swelling. Patient is normal in color, warm, dry. In no apparent distress. Additional Vitals No qualifying data available. Assessment/Plan 1. Infection of knee Labs reviewed. Cultures reviewed which remain negative so far. We will proceed with PICC line discussed risks and benefits with patient. For now continue IV vancomycin and Rocephin. Anticipated stop 09/02. Thank you for consult we will follow with you. 2. Hyponatremia Problem List/Past Medical History Ongoing Anxiety COPD with emphysema Depression History of gout Hypertension Type 2 diabetes mellitus Historical No qualifying data Procedure/Surgical History Transmetatarsal amputation Total replacement of left knee joint (10/19/2017) Application Wound Vac (Right, Knee) (07/22/2023) Incision and Drainage Knee with Poly Exchange (Right, Knee) (07/22/2023) Medications Inpatient acetaminophen, 650 mg, Oral, q6hr, PRN acetaminophen, 650 mg, Oral, QID acetaminophen, 650 mg, Oral, q4hr, PRN amLODIPine, 5 mg, Oral, Daily atorvastatin, 10 mg, Oral, Daily Breo Ellipta 100 mcg-25 mcg/inh inhalation powder, 1 inh, Inhale, Daily calcium carbonate, 1000 mg, Oral, q6hr, PRN clonazePAM, 1 mg, Oral, TID Colace, 100 mg, Oral, BID Dextrose 10% in Water IV Piggyback, 125 mL, IV Piggyback, As Indicated, PRN diphenhydrAMINE, 25 mg, Oral, HS (at bedtime), PRN docusate sodium, 100 mg, Oral, Daily, PRN enoxaparin, 40 mg= 0.4 mL, Subcutaneous, Daily fluticasone 50 mcg/inh nasal spray, 50 mcg= 1 sprays, Nasal, qAM gabapentin, 600 mg, Oral, TID glucagon, 1 mg, Subcutaneous, As Indicated, PRN hydrOXYzine, 50 mg, Oral, TID insulin aspart, see comments, Subcutaneous, ACHS levothyroxine, 125 mcg, Oral, Daily lisinopril, 20 mg, Oral, Edvin (more content not included)... Normal [facility] Magnesiumon 07-23-2023 Magnesium [Mass/Vol] 1.6 mg/dL Low 1.7-2.4 [facility] Comment on above: Performed By: #### M G #### [facility] [address] [place] [address] Orthopedic Progress Noteon 1 Orthopedic Progress Note Subjective Patient resting comfortably in bed. Pain moderately well controlled. Has not been up since surgery. Patient encouraged to work with physical therapy today. Is having some chills this morning. Denies chest pain, shortness of breath, nausea, lightheadedness, dizziness, calf pain, or numbness and tingling in his toes and feet. Objective Vitals & Measurements T: 37.6 ?C (Temporal Artery) HR: 98 (Monitored) RR: 16 BP: 127/82 SpO2: 94% HT: 194 cm WT: 135.3 kg BMI: 36.19 Additional Vitals No qualifying data available. Lab Results Microbiology - Current Encounter No qualifying data available. Physical Exam General examination: Patient is a well-appearing 68-year-old male resting comfortably in bed. He is alert and oriented x3 and in no acute distress. Answer questions appropriately. Normal mood and affect. Right lower extremity: Carlos wrap is clean, dry, and intact. Drain dressing clean, dry, and intact without evidence of drainage or shadowing. Mild edema around knee. Skin otherwise intact. 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 Wound VAC intact and maintaining suction. GUDELIA drain had approximately 115 cc of bloody serosanguineous drainage out since surgery. Motor intact quad, hamstring, TA, GSC, EHL, FHL. Sensation intact light touch through knee, calf, gaitan, ankle, and foot. 1+ DP pulse. Medications Inpatient acetaminophen, 650 mg, Oral, q6hr, PRN acetaminophen, 650 mg, Oral, QID acetaminophen, 650 mg, Oral, q4hr, PRN amLODIPine, 5 mg, Oral, Daily atorvastatin, 10 mg, Oral, Daily Breo Ellipta 100 mcg-25 mcg/inh inhalation powder, 1 inh, Inhale, Daily calcium carbonate, 1000 mg, Oral, q6hr, PRN clonazePAM, 1 mg, Oral, TID Colace, 100 mg, Oral, BID Dextrose 10% in Water IV Piggyback, 125 mL, IV Piggyback, As Indicated, PRN diphenhydrAMINE, 25 mg, Oral, HS (at bedtime), PRN docusate sodium, 100 mg, Oral, Daily, PRN enoxaparin, 40 mg= 0.4 mL, Subcutaneous, Daily fluticasone 50 mcg/inh nasal spray, 50 mcg= 1 sprays, Nasal, qAM gabapentin, 600 mg, Oral, TID glucagon, 1 mg, Subcutaneous, As Indicated, PRN hydrOXYzine, 50 mg, Oral, TID influenza virus vaccine, inactivated 5+ years old, 0.5 mL, IM, Once insulin aspart, see comments, Subcutaneous, ACHS levothyroxine, 125 mcg, Oral, Daily lisinopril, 20 mg, Oral, Daily loratadine, 10 mg, Oral, Daily meloxicam, 7.5 mg, Oral, Daily MiraLax, 17 g= 1 EA, Oral, Daily, PRN naloxone, 0.4 mg= 1 mL, IV Push, q2min, PRN Normal Saline Flush 0.9% injectable solution, 10 mL, IV Push, BID Normal Saline Flush 0.9% injectable solution, 10 mL, IV Push, As Indicated, PRN NS 1,000 mL, 1000 mL, IV oxyCODONE, 5 mg, Oral, q4hr, PRN oxyCODONE, 10 mg, Oral, q4hr, PRN prazosin, 1 mg, Oral, Daily Rocephin, 2 g= 50 mL, IV Piggyback, q24hr Sodium Chloride 0.9% intravenous solution 1,000 mL, 1000 mL, IV Sodium Chloride 0.9% intravenous solution 1,000 mL, 1000 mL, IV vancomycin venlafaxine extended release, 150 mg, Oral, Daily Zofran, 4 mg= 2 mL, IV Push, q6hr, PRN Assessment/Plan 1. Infection of knee POD 1 s/p I&D right TKA with poly exchange Weightbearing as tolerated right lower extremity PT/OT P.o. pain control DVT prophylaxis: Lovenox, SCDs, LORAINE hose Wound VAC change every Thursday and Thursday. Continue to monitor output Wound care consulted Continue IV vancomycin and Rocephin pending surgical cultures Infectious disease consulted. Appreciate antibiotic recommendations Continue to monitor surgical cultures. Preliminary cultures show no bacteria GUDELIA drain intact and patent. 115 cc bloody serosanguineous drainage out since surgery. Continue to monitor output Hospitalist to continue medical management A.m. Hgb and labs not available at time of rounding. Anticipate need for IV antibiotics on discharge. Anticipate discharge home versus ECF once outpatient antibiotics arranged. 2. Hyponatremia Electronically signed by Starla Marie PA-C 07/23/23 06:16 EDT Patient care discussed with Starla Marie PA-C. Agree with assessment and plan. Electronically signed by Justin Mcgowan MD 07/24/23 15:50 EDT Normal [facility] POC Glucose Randomon 023 Glucose [Mass/Vol] 254 mg/dL High 70-99 [facility] Comment on above: Performed By: #### C [id number] ####[address] [address] Glucose [Mass/Vol] 217 mg/dL High 70-99 [facility] Comment on above: Performed By: #### C [id number] ####[address] [address] Glucose [Mass/Vol] 383 mg/dL High 70-99 [facility] Comment on above: Performed By: #### E GFR #### [address] [address] Glucose [Mass/Vol] 167 mg/dL High 70-99 [facility] Comment on above: Performed By: #### C [id number] ####[address] [address] Progress Note-Nurseon 2022 Progress Note-Nurse Assessment of Wound vac Setting and dressing application of Right knee Wound vac dressing application 07/22/23 orders for dressing changes per wound care 2 times weekly/ Thursday- Mondays/ Wound vac therapy setting 150mm/hg, continuous therapy/ No issues at this time of assessment> Wound team will continue to assess and treat throughout patient stay. Patient unsure of discharge plan as he has no-one to help him at his private residence at this time/ he is to get a PICC line 07/24/23 and Home ATB will be needed for D/C @ this time of assessment. Wound team will order home vac 07/24 23 just in case it will be needed by Thursday Assessment of Wound vac Setting and dressing application of Right knee Wound vac dressing application 07/22/23 orders for dressing changes per wound care 2 times weekly/ Thursday- Mondays/ Wound vac therapy setting 150mm/hg, continuous therapy/ No issues at this time of assessment> Wound team will continue to assess and treat throughout patient stay. Patient unsure of discharge plan as he has no-one to help him at his private residence at this time/ he is to get a PICC line 07/24/23 and Home ATB will be needed for D/C @ this time of assessment. Wound team will order home vac 07/24 23 just in case it will be needed by Thursday Electronically signed by Teresa Hong 07/23/23 15:20 EDT Normal [facility] Comment on above: Order Comment: 125mm /hg /low setting .BF Cell Cnt RBC Aon 023 Fluid RBC Count [id number] /mcL Normal [facility] Comment on above: Performed By: #### . Body Fluid Cell Count RBC Auto ####[facility] [place] [address] Fluid RBC Count [id number] /mcL Normal [facility] Comment on above: Performed By: #### C [id number] #### [facility] [address] [place] [address] Fluid RBC Count [id number] /mcL Normal [facility] Comment on above: Performed By: #### E GFR #### [address] [address] .BF Cell Cnt WBC Aon 023 Fluid WBC Count [id number] /mcL High 0-150 [facility] Comment on above: Performed By: #### E GFR #### [address] [address] Fluid WBC Count [id number] /mcL High 0-150 [facility] Comment on above: Performed By: #### M G #### [address] [address] Fluid WBC Count [id number] /mcL High 0-150 [facility] Comment on above: Performed By: #### . Body Fluid Cell Count WBC Auto ####[address] [address] .BF Diffon 07-22-2023 Fluid Mononuclear Cells 4 % Normal 0-78 [facility] Comment on above: Performed By: #### . Body Fluid Differential ####[address] [address] Fluid Other Cells 0 % Normal 0-10 [facility] Comment on above: Performed By: #### . Body Fluid Differential ####[address] [address] Fluid Polynuclear Cells 96 % High 0-25 [facility] Comment on above: Performed By: #### . Body Fluid Differential ####[address] [address] Fluid Mononuclear Cells 5 % Normal 0-78 [facility] Comment on above: Performed By: #### E GFR #### [address] [address] Fluid Other Cells 0 % Normal 0-10 [facility] Comment on above: Performed By: #### E GFR #### [address] [address] Fluid Polynuclear Cells 95 % High 0-25 [facility] Comment on above: Performed By: #### E GFR #### [facility] [address] [place] [address] Fluid Mononuclear Cells 4 % Normal 0-78 [facility] Comment on above: Performed By: #### . Body Fluid Differential ####[facility] [place] [address] Fluid Other Cells 0 % Normal 0-10 [facility] Comment on above: Performed By: #### . Body Fluid Differential ####[address] [address] Fluid Polynuclear Cells 96 % High 0-25 [facility] Comment on above: Performed By: #### . Body Fluid Differential ####[address] [place] [address] .eGFRon 07-22-2023 GFR/1.73 sq M.predicted MDRD (S/P/Bld) [Vol rate/Area] mL/min/{1.73_m2} Normal >=60 [facility] Comment on above: Result Comment: [facility] have implemented the eGFR calculation approach that does not have a coefficient for race and that conforms to the NKF-ASN Task Force Recommendations. Stages of Chronic Kidney Disease GFR Stage 3a Mild to moderate loss of kidney function 59 to 45 Stage 3b Moderate to severe loss of kidney function 44 to 33 Stage 4 Severe loss of kidney function 29 to 15 Stage 5 Kidney failure Less than 15 GFR calculated using the CKD-Epi Creatinine Equation (2020): eGFR = 142 X min(SCr/?, 1)? X max(SCr /?, 1)-1.200 X 0.9938Age X 1.012 [if female] Abbreviations/Units: eGFR (estimated glomerular filtration rate) = mL/min/1.73 m2 SCr (standardized serum creatinine) = mg/dL ? = 0.7 (females) or 0.9 (males) ? = -0.241 (females) or -0.302 (males) min = indicates the minimum of SCr/? or 1 max = indicates the maximum of SCr/? or 1 Age = years Performed By: #### E GFR ####[address] [address] BF Cell Counton 07-22-2023 Body Fluid Cell Cnt Type Synovial Normal [facility] Comment on above: Performed By: #### M G #### [place] [address] Body Fluid Cell Cnt Type Synovial Normal [facility] Comment on above: Performed By: #### E SR #### [place] [address] Body Fluid Cell Cnt Type Synovial Normal [facility] Comment on above: Performed By: #### M G #### [place] [address] C Sterile BFon 07-22-2023 C Sterile BF -- - Final No growth at 2 weeks. - Gram Stain Many White Blood Cells No organisms seen. Normal [facility] Comment on above: Performed By: #### C SBF ####[place] [address] ED Clinical Summaryon 2022 [place] [address] ED Clinical Summary Person Information Name: Joie Lu Sondra/[facility] Age: 68 Years : 1955 Sex: Male PCP: Marital Status: Phone: Race: White Ethnicity: Not or Language: Bangladeshi Visit Reason: Wound infection - uncomplicated; Surgical problem Acuity: 3 Enc Type: Observation Med Service: Emergency Medicine Arrival: 07/21/2023 19:33:54 Discharge: LOS: 000 02:27 Checkin: 07/21/2023 19:33:54 Checkout: 07/21/2023 22:00:13 Dispo Type: Address: [address] [id number] Provider Notes: History of Present Illness 68-year-old male presents with right knee pain.? 3 and half weeks ago he had a right knee replacement done by Dr. Mcgowan at [facility].? He tells me over the past few days he has developed worsening pain, swelling?and some drainage from the incision on his knee. ?He was at [facility] today.? He had blood work done and Dr. Mcgowan was consulted. ?He requested to have patient admitted to?[facility].? I had initially spoken with the ED doctor there however he was unable to?get patient direct admitted so?he was transferred here.? Patient denies any fevers or chills.? He is complaining of pain in the knee at this time. ?Denies any pain anywhere else.? He is not on blood thinners. ?Patient has no other complaints at this time. Review of Systems As reviewed in the HPI. All other systems reviewed are negative or normal. Physical Exam CONSTITUTIONAL: [well appearing in no acute distress] SKIN: [Warm, vertical midline knee?incision with?pinpoint area of purulent drainage at distal aspect EYES: [extraocular movements are grossly intact, clear conjunctiva] HENT: [Normocephalic, atraumatic, moist mucus membranes] NECK: [no obvious swelling, normal range of motion] PULMONARY: [normal chest rise and fall, no respiratory distress or stridor CARDIOVASCULAR: [Tachycardic rate, distal extremities are warm and well perfused] GASTROINSTESTINAL: [nondistended, non-tender] GENITOURINARY: [deferred] NEUROLOGIC: [normal speech, moves all extremities] MUSCULOSKELETAL: Right knee is?swollen, fluctuance on the anterior aspect, decreased range of motion PSYCHIATRIC: [normal mood and affect] Diagnosis: 1:Infection of knee Problems No Problems Documented Smoking Status: Smoking Status Former smoker, quit more than 5 years ago Functional Status: Sensory Deficits: History of Falls: Mobility Assistance Prior to Admission: ADLs: Current Level of Assistance for Self-Care/Mobility: Cognitive Status: Allergies No Allergies Documented Laboratory or Other Results This Visit (last charted value for your 07/21/2023 visit) Hematology 07/21/2023 9:27 PM WBC: 13.7 x10 RBC: 4.04 x10 MCV: 94.0 fL -- Normal range between ( 80.0 and 100.0 ) MCHC: 33.7 % -- Normal range between ( 31.0 and 37.0 ) Hct: 38.0 % -- Normal range between ( 41.0 and 53.0 ) MCH: 31.7 pg -- Normal range between ( 27.0 and 35.0 ) Hgb: 12.8 g/dL -- Normal range between ( 13.5 and 17.5 ) Mean Platelet Volume: 7.2 fL -- Normal range between ( 6.7 and 10.6 ) Platelet: 156 x10 RDW: 15.2 % -- Normal range between ( 11.6 and 14.8 ) Chemistry 07/21/2023 9:27 PM Creatinine Lvl: 0.90 mg/dL -- Normal range between ( 0.61 and 1.24 ) BUN: 16 mg/dL -- Normal range between ( 8 and 26 ) Glucose Lvl: 177 mg/dL -- Normal range between ( 70 and 99 ) Potassium Lvl: 3.8 mmol/L -- Normal range between ( 3.4 and 4.8 ) CRP: 24.09 mg/dL -- Normal range between ( 0.00 and 0.75 ) Sodium Lvl: 129 mmol/L -- Normal range between ( 133 and 142 ) Calcium Lvl: 8.6 mg/dL -- Normal range between ( 8.5 and 10.3 ) Magnesium Lvl: 1.7 mg/dL -- Normal range between ( 1.7 and 2.4 ) Chloride: 100 mmol/L -- Normal range between ( 98 and 110 ) CO2: 22 mmol/L -- Normal range between ( 22 and 32 ) Anion Gap: 11 -- Normal range between ( 7 and 17 ) Estimated GFR: >60 mL/min/1.73m? BUN Crea Ratio: 17.8 -- Normal range between ( 10.0 and 20.0 ) Measurements: Height: Weight: 137 kg Blood Pressure: /77 mmHg BMI: Procedures No Procedures Documented Immunizations No Immunizations Documented This Visit Final Med List: Medications that have not changed Other Medications amLODIPine (amLODIPine 5 mg oral tablet) 1 Tabs Oral (given by mouth) every day. Last Dose: ___ amoxicillin-clavulanat e (amoxicillin-clavulana te 875 mg-125 mg oral tablet) 1 Tabs Oral (given by mouth) every 12 hours for 10 Days. Last Dose: ___ atorvastatin (atorvastatin 10 mg oral tablet) 1 Tabs Oral (given by mouth) every day. Last Dose: ___ clonazePAM (clonazePAM 1 mg oral tablet) 1 Tabs Oral (given by mouth) 3 times a day. Scheduled. Last Dose: ___ fluticasone nasal (fluticasone 50 mcg/ (more content not included)... Normal [facility] ESRon 07-22-2023 Sed Rate 23 mm/hr Normal 0-23 [facility] Comment on above: Performed By: #### E SR ####[place] [id number] Hgb A1con 07-22-2023 Glucose [Mass/Vol] 120 mg/dL High 68-114 [facility] Comment on above: Result Comment: Math ematical Calc approx. The mean gluc equivalency of A1c Performed By: #### H BA1C ####[place] [id number] Hgb A1c 5.8 % A1c High 4.0-5.6 [facility] Comment on above: Result Comment: Refe rence Range: 4.0 - 5.6 % Normal 5.7 - 6.4 % Pre-Diabetes > 6.5 % Diabetes Performed By: #### H BA1C ####[place] [id number] Occupational Medicine Progre ss Noteon 07-22-2023 Occupational Medicine Progress Note Attempted to eval pt this AM, pt falling asleep during conversation. Pt requested to come back at a later time. Will attempt to see as time allows. Electronically signed by Aggie Cortes 07/22/23 13:16 EDT Normal [facility] Orthopedic Consultationon Orthopedic Consultation Chief Complaint Transfer from [facility] secondary to postop infection Reason for Consultation Draining right total knee History of Present Illness Patient is a 68-year-old male who presented for evaluation of painful right total knee arthroplasty. Patient about right total knee arthroplasty 06/25/2023. When he was seen back at his 2-week follow-up he was doing well. He states approximately 4 to 5 days ago he noted increasing pain and began having some drainage from his knee. Drainage has been serous in nature. He has a small pinhole over the middle aspect of his incision. He notes some increase in swelling. He denies numbness or tingling in his foot. He has been ambulating with his walker. He was doing well with physical therapy up until the last week. Denies chest pain or shortness of breath. Denies fevers or chills. He was transferred from outside hospital yesterday. He had been placed on some oral amoxicillin in the emergency department. He is not currently on any antibiotics. Review of Systems Negative other than noted in HPI. Physical Exam Vitals & Measurements T: 37 ?C (Oral) TMIN: 36.8 ?C (Oral) TMAX: 37.7 ?C (Oral) HR: 97 (Peripheral) RR: 16 BP: 107/72 SpO2: 96% HT: 194 cm WT: 135.3 kg BMI: 36.19 General exam: Patient is a well-appearing male rest comfortably no acute distress. Patient is awake alert and oriented x3. Normal mood and affect. Right lower extremity: Midline incision with small pinhole at the middle aspect of the incision. Moderate edema. Subcutaneous fluid noted. Palpable gap noted in the medial arthrotomy. Diffuse tenderness to palpation right knee. Right knee range of motion 5 to 90 degrees. Knee stable varus valgus stress. Motor intact quad, hamstring, TA, GSC, EHL, FHL. Sensation intact to light touch SPN, DPN, sural, saphenous, tibial nerve distribution. 1+ DP pulse. Foot warm well perfused. No calf pain. Negative Homans. Additional Vitals No qualifying data available. Assessment/Plan 1. 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 Patient does have dehiscence of his surgical site with drainage. On palpation he does appear to possibly have ruptured his medial arthrotomy. Discussed with patient that he would benefit from surgical intervention with irrigation and debridement and tibial polyethylene exchange. Discussed procedure, risk and benefits, and alternatives including but limited to bleeding, infection, neurovascular injury, hardware failure, fracture, stiffness, VTE, continued pain, need for additional surgery, and risk of anesthesia. Patient understood the risks and elected to proceed with surgery. N.p.o. for surgery. Surgery later this evening. Weightbearing as tolerated. P.o. pain control. Hold chemoprophylaxis for DVT. Problem List/Past Medical History Ongoing No qualifying data Historical No qualifying data Medications Inpatient acetaminophen, 650 mg, Oral, q6hr, PRN acetaminophen, 650 mg, Oral, q6hr, PRN calcium carbonate, 1000 mg, Oral, q6hr, PRN Dextrose 10% in Water IV Piggyback, 125 mL, IV Piggyback, As Indicated, PRN diphenhydrAMINE, 25 mg, Oral, HS (at bedtime), PRN docusate sodium, 100 mg, Oral, Daily, PRN glucagon, 1 mg, Subcutaneous, As Indicated, PRN heparin, 5000 units= 1 mL, Subcutaneous, [id number] Times influenza virus vaccine, inactivated 5+ years old, 0.5 mL, IM, Once insulin aspart, see comments, Subcutaneous, ACHS MiraLax, 17 g= 1 EA, Oral, Daily, PRN morphine, 2 mg= 1 mL, IV Push, q3hr, PRN naloxone, 0.4 mg= 1 mL, IV Push, q2min, PRN Normal Saline Flush 0.9% injectable solution, 10 mL, IV Push, As Indicated, PRN Normal Saline Flush 0.9% injectable solution, 10 mL, IV Push, BID ondansetron, 4 mg= 2 mL, IV Push, q4hr, PRN Home amLODIPine 5 mg oral tablet, 5 mg= 1 tabs, Oral, Daily amoxicillin-clavulanat e 875 mg-125 mg oral tablet, 1 tabs, Oral, q12hr atorvastatin 10 mg oral tablet, 10 mg= 1 tabs, Oral, Daily Breo Ellipta 100 mcg-25 mcg/inh inhalation powder, 1 puffs, Inhale, Daily clonazePAM 1 mg oral tablet, 1 mg= 1 tabs, Oral, TID fluticasone 50 mcg/inh nasal spray, 1 sprays, Nasal, qAM gabapentin 300 mg oral capsule, 600 mg= 2 caps, Oral, TID glimepiride 4 mg oral tablet, 4 mg= 1 tabs, Oral, BID hydrocodone-acetaminop hen 5 mg-325 mg oral tablet, 1 tabs, Oral, q6hr, PRN hydrOXYzine hydrochloride 50 mg oral tablet, 50 mg= 1 tabs, Oral, TID levothyroxine 125 mcg (0.125 mg) oral tablet, 125 mcg= 1 tabs, Oral, Daily lisinopril 20 mg oral tablet, 20 mg= 1 tabs, Oral, Daily loratadine 10 mg oral tablet, 10 mg= 1 tabs, Oral, Daily meloxicam 7.5 mg oral tablet, 7.5 mg= 1 tabs, Oral, Daily metFORMIN 850 mg oral tablet, 850 mg= 1 tabs, Oral, BID prazosin 1 mg oral capsule, 1 mg= 1 caps, Oral, Daily venlafaxine 150 mg oral capsule, extended release, 150 mg= 1 caps, Oral, Daily Allergies No Known Medication Allergies Social History Alco (more content not included)... Normal [facility] POC Glucose Randomon 023 Glucose [Mass/Vol] 139 mg/dL High 70-99 [facility] Comment on above: Performed By: #### C [id number] ####[facility] [place] [address] Glucose [Mass/Vol] 121 mg/dL High 70-99 [facility] Comment on above: Performed By: #### M G #### [facility] [address] [place] [address] Glucose [Mass/Vol] 198 mg/dL High 70-99 [facility] Comment on above: Performed By: #### E GFR #### [address] [address] Physical Therapy Progress No yossi 07-22-2023 Physical Therapy Progress Note Upon arrival, pt supine. 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 Pt politely request to work w/ PT services tomorrow. States significant pain in his knee. Will reattempt tomorrow as able. Thank you. Electronically signed by Surekha Haley 07/22/23 16:41 EDT Normal [facility] Renal Panelon 07-22-2023 Albumin [Mass/Vol] 3.3 g/dL Normal 3.2-4.9 [facility] Comment on above: Performed By: #### R ENAL ####[address] [address] Anion gap [Moles/Vol] 10 mmol/L Normal 7-17 [facility] Comment on above: Performed By: #### R ENAL ####[address] [address] Calcium [Mass/Vol] 8.8 mg/dL Normal 8.5-10.3 [facility] Comment on above: Performed By: #### R ENAL ####[address] [address] Chloride [Moles/Vol] 102 mmol/L Normal 98-110 [facility] Comment on above: Performed By: #### R ENAL ####[address] [address] CO2 [Moles/Vol] 25 mmol/L Normal 22-32 [facility] Comment on above: Performed By: #### R ENAL ####[address] [address] Creatinine [Mass/Vol] 1.03 mg/dL Normal 0.61-1.24 [facility] Comment on above: Performed By: #### R ENAL ####[address] [address] Glucose [Mass/Vol] 165 mg/dL High 70-99 [facility] Comment on above: Performed By: #### R ENAL ####[address] [address] Phosphate [Mass/Vol] 3.1 mg/dL Normal 2.5-4.6 [facility] Comment on above: Performed By: #### R ENAL ####[address] [address] Potassium [Moles/Vol] 4.5 mmol/L Normal 3.4-4.8 [facility] Comment on above: Performed By: #### R ENAL ####[address] [address] Sodium [Moles/Vol] 133 mmol/L Normal 133-142 [facility] Comment on above: Performed By: #### R ENAL ####[address] [address] Urea nitrogen [Mass/Vol] 15 mg/dL Normal 8-26 [facility] Comment on above: Performed By: #### R ENAL ####[address] [address] Urea nitrogen/Creatinine [Mass ratio] 14.6 mg/mg Normal 10.0-20.0 [facility] Comment on above: Performed By: #### R ENAL ####[address] [address] .eGFRon 07-21-2023 GFR/1.73 sq M.predicted MDRD (S/P/Bld) [Vol rate/Area] mL/min/{1.73_m2} Normal >=60 [facility] Comment on above: Result Comment: [facility] have implemented the eGFR calculation approach that does not have a coefficient for race and that conforms to the NKF-ASN Task Force Recommendations. Stages of Chronic Kidney Disease GFR Stage 3a Mild to moderate loss of kidney function 59 to 45 Stage 3b Moderate to severe loss of kidney function 44 to 33 Stage 4 Severe loss of kidney function 29 to 15 Stage 5 Kidney failure Less than 15 GFR calculated using the CKD-Epi Creatinine Equation (2020): eGFR = 142 X min(SCr/?, 1)? X max(SCr /?, 1)-1.200 X 0.9938Age X 1.012 [if female] Abbreviations/Units: eGFR (estimated glomerular filtration rate) = mL/min/1.73 m2 SCr (standardized serum creatinine) = mg/dL ? = 0.7 (females) or 0.9 (males) ? = -0.241 (females) or -0.302 (males) min = indicates the minimum of SCr/? or 1 max = indicates the maximum of SCr/? or 1 Age = years Performed By: #### E GFR ####[address] [address] Basic Metabolic Profileon Creatinine [Mass/Vol] 0.90 mg/dL Normal 0.61-1.24 [facility] Comment on above: Performed By: #### C [id number] ####[address] [address] Urea nitrogen [Mass/Vol] 16 mg/dL Normal 8-26 [facility] Comment on above: Performed By: #### C [id number] ####[address] [place] [address] Urea nitrogen/Creatinine [Mass ratio] 17.8 mg/mg Normal 10.0-20.0 [facility] Comment on above: Performed By: #### C [id number] ####[address] [address] Anion gap [Moles/Vol] 11 mmol/L Normal 7-17 [facility] Comment on above: Performed By: #### C [id number] ####[address] [place] [address] Calcium [Mass/Vol] 8.6 mg/dL Normal 8.5-10.3 [facility] Comment on above: Performed By: #### C [id number] ####[address] [address] Chloride [Moles/Vol] 100 mmol/L Normal 98-110 [facility] Comment on above: Performed By: #### C [id number] ####[address] [address] CO2 [Moles/Vol] 22 mmol/L Normal 22-32 [facility] Comment on above: Performed By: #### C [id number] ####[address] [address] Glucose [Mass/Vol] 177 mg/dL High 70-99 [facility] Comment on above: Performed By: #### C [id number] ####[address] [address] Potassium [Moles/Vol] 3.8 mmol/L Normal 3.4-4.8 [facility] Comment on above: Performed By: #### C [id number] ####[address] [address] Sodium [Moles/Vol] 129 mmol/L Low 133-142 [facility] Comment on above: Performed By: #### C [id number] ####[address] [address] CBCon 07-21-2023 Erythrocyte distribution width (RBC) [Ratio] 15.2 % High 11.6-14.8 [facility] Comment on above: Performed By: #### E SR #### [address] [address] Hematocrit (Bld) [Volume fraction] 38.0 % Low 41.0-53.0 [facility] Comment on above: Performed By: #### E SR #### [address] [address] Hemoglobin (Bld) [Mass/Vol] 12.8 g/dL Low 13.5-17.5 [facility] Comment on above: Performed By: #### E SR #### [address] [address] MCH (RBC) [Entitic mass] 31.7 pg Normal 27.0-35.0 [facility] Comment on above: Performed By: #### E SR #### [address] [address] MCHC 33.7 % Normal 31.0-37.0 [facility] Comment on above: Performed By: #### E SR #### [address] [address] MCV (RBC) [Entitic vol] 94.0 fL Normal 80.0-100.0 [facility] Comment on above: Performed By: #### E SR #### [address] [address] Platelet 156 x10*3/mcL Normal 150-450 [facility] Comment on above: Performed By: #### E SR #### [address] [address] Platelet mean volume (Bld) [Entitic vol] 7.2 fL Normal 6.7-10.6 [facility] Comment on above: Performed By: #### E SR #### [address] [address] RBC 4.04 x10*6/mcL Low 4.30-5.80 [facility] Comment on above: Performed By: #### E SR #### [address] [address] WBC 13.7 x10*3/mcL High 4.5-11.0 [facility] Comment on above: Performed By: #### E SR #### [address] [address] CRPon 07-21-2023 CRP 24.09 mg/dL High 0.00-0.75 [facility] Comment on above: Result Comment: CRP measurement is useful for assessment of non-specific INFLAMMATORY RESPONSE to infection or injury AND is a sensitive MARKER of ACUTE INFLAMMATION including CARDIAC RISK ASSESSMENT. CARDIAC patients with elevated CRP are POTENTIALLY at a HIGHER RISK OF FUTURE CARDIAC EVENTS. Performed By: #### C [id number] #### [facility] [address] [place] [address] ED Note-Physicianon 07-21-20 ED Note-Physician Chief Complaint Patient coming from [facility], c/o knee pain 04/27, tatianalucho, had a knee replacement surgery 3 weeks ago. History of Present Illness 68-year-old male presents with right knee pain. 3 and half weeks ago he had a right knee replacement done by Dr. Mcgowan at [facility]. He tells me over the past few days he has developed worsening pain, swelling and some drainage from the incision on his knee. He was at [facility] today. He had blood work done and Dr. Mcgowan was consulted. He requested to have patient admitted to [facility]. I had initially spoken with the ED doctor there however he was unable to get patient direct admitted so he was transferred here. Patient denies any fevers or chills. He is complaining of pain in the knee at this time. Denies any pain anywhere else. He is not on blood thinners. Patient has no other complaints at this time. Review of Systems As reviewed in the HPI. All other systems reviewed are negative or normal. Physical Exam CONSTITUTIONAL: [well appearing in no acute distress] SKIN: [Warm, vertical midline knee incision with pinpoint area of purulent drainage at distal aspect EYES: [extraocular movements are grossly intact, clear conjunctiva] HENT: [Normocephalic, atraumatic, moist mucus membranes] NECK: [no obvious swelling, normal range of motion] PULMONARY: [normal chest rise and fall, no respiratory distress or stridor CARDIOVASCULAR: [Tachycardic rate, distal extremities are warm and well perfused] GASTROINSTESTINAL: [nondistended, non-tender] GENITOURINARY: [deferred] NEUROLOGIC: [normal speech, moves all extremities] MUSCULOSKELETAL: Right knee is swollen, fluctuance on the anterior aspect, decreased range of motion PSYCHIATRIC: [normal mood and affect] Vitals & Measurements T: 37.1 ?C (Oral) HR: 108 (Monitored) RR: 18 BP: 112/77 SpO2: 93% HT: 194 cm WT: 137 kg (Dosing) Additional Vitals No qualifying data available. Procedure No qualifying data available. ASA Documentation Medical Decision Making Medical Decision Making This report has been created using voice recognition software. It may contain minor errors which are inherent in voice recognition technology. Initial MDM: After my bedside initial evaluation of the patient, based on history and physical examination, I believe that this may represent _postoperative infection, cellulitis, abscess, prosthetic infection. I have also considered _ as potential differential diagnosis, among others, for this patient. I would like to order _CBC, BMP, sed rate, CRP which would help further evaluation for this work up. She is afebrile, nontoxic, mildly tachycardic otherwise vital signs normal. He does have fluctuance on the anterior aspect of his knee with small amount of drainage. I spoke with Dr. Mcgowan who requested that we get inflammatory markers and admit him to the hospitalist and he would see the patient tomorrow. I specifically asked about any IV antibiotics today and he is requesting no antibiotics until he sees the patient. I spoke with Dr. Mckenzie MDM Data Data Reviewed Tests: ordered and reviewed Decide to obtain previous medical records or to obtain history from someone other than the patient: Reviewed [employer] E[employer] to see if recent visits or hospitalizations. Review and summarized past medical records if pertinent and available in [employer]: _ Data Interpretation: My independent review and interpretation of lab. Clinically relevant interpretation _White count 13.7 External documents reviewed: _ My independent review and interpretation of the EKG _ My CT interpretation: _ My X-ray interpretation: _ My Ultrasound interpretation: _ Decision rules/scores evaluated: _ ? HEART Score: Not Completed ? PERC Rule: _ ? NEXUS C-spine Criteria: _ ? [place] Ankle Rule: _ ? [place] Knee Rule: _ ? Wells Criteria for DVT: _ ? Wells Criteria for PE: _ Discussed with: _ Treatment and Disposition ED Course / Patient Re-evaluation: Social determinants of health that impacts treatment or disposition _ Shared decision making _ Code Status and Discussions _ Assessment/Plan 1. Infection of knee Orders: C-Reactive Protein Consult to Orthopedics Erythrocyte Sedimentation Rate Request for Admit Refresh vitals and sections below: Problem List/Past Medical History Ongoing No qualifying data Historical No qualifying data Medications Inpatient acetaminophen, 650 mg, Oral, q6hr, PRN acetaminophen, 650 mg, Oral, q6hr, PRN calcium carbonate, 1000 mg, Oral, q6hr, PRN diphenhydrAMINE, 25 mg, Oral, HS (at bedtime), PRN docusate sodium, 100 mg, Oral, Daily, PRN heparin, 5000 units= 1 mL, Subcutaneous, [id number] Times MiraLax, 17 g= 1 EA, Oral, Daily, PRN naloxone, 0.4 mg= 1 mL, IV Push, q2min, PRN Normal Saline Flush 0.9% injectable solution, 10 mL, IV Push, As Indicated, PRN Normal Saline Flush 0.9% injectable solution, 10 mL, IV Push, BID ondansetron (more content not included)... Normal [facility] Magnesiumon 07-21-2023 Magnesium [Mass/Vol] 1.7 mg/dL Normal 1.7-2.4 [facility] Comment on above: Performed By: #### M G ####[facility] [place] [address] XR KNEE RIGHT (1-2 VIEWS)on 06-27-2023 XR KNEE RIGHT (1-2 VIEWS) EXAMINATION: TWO XRAY VIEWS OF THE RIGHT KNEE 06/25/2023 11:26 am COMPARISON: None. HISTORY: ORDERING SYSTEM PROVIDED HISTORY: s/p right TKA TECHNOLOGIST PROVIDED HISTORY: Of operative side while in recovery room. s/p right TKA FINDINGS: Total right knee arthroplasty. No acute osseous abnormality. Alignment anatomic. Soft tissues of typical postoperative appearance. IMPRESSION: Status post total right knee arthroplasty Interpreted by: Messi Upton DO Signed by: Messi Upton DO 06/27/23 Final result Normal [facility] Basic Metabolic Profon 06-26 Anion gap [Moles/Vol] 12 mmol/L Normal 07-05 [facility] Comment on above: Performed By: #### H H, BMP #### [facility] [address] [place] [address] [place] Man: Oliver Cabrera MD BUN/CRE Ratio 25 High 9- [facility] Comment on above: Performed By: #### H H, BMP #### [facility] [address] [place] [address] [place] Man: Oliver Cabrera MD Calcium [Mass/Vol] 9.1 mg/dL Normal 8.6-10.4 [facility] Comment on above: Performed By: #### H H, BMP #### [facility] [address] [place], [place] [id number] [place] Man: Oliver Cabrera MD Chloride [Moles/Vol] 98 mmol/L Normal 98-107 [facility] Comment on above: Performed By: #### H H, BMP #### [facility] [address] [place] [address] [place] Man: Oliver Cabrera MD CO2 [Moles/Vol] 22 mmol/L Normal 20-31 [facility] Comment on above: Performed By: #### H H, BMP #### [address] [place], [place] [address] [place] Man: Oliver Cabrera MD Creatinine [Mass/Vol] 1.0 mg/dL Normal 0.7-1.2 [facility] Comment on above: Performed By: #### H H, BMP #### [address] [place] [address] [place] Man: Oliver Cabrera MD GFR/1.73 sq M.predicted among non-blacks MDRD (S/P/Bld) [Vol rate/Area] mL/min/{1.73_m2} Normal >60 [facility] Comment on above: Result Comment: These results are not intended for use in patients <18 years of age. eGFR results are calculated without a race factor using the 2020 CKD-EPI equation. Careful clinical correlation is recommended, particularly when comparing to results calculated using previous equations. The CKD-EPI equation is less accurate in patients with extremes of muscle mass, extra-renal metabolism of creatine, excessive creatine ingestion, or following therapy that affects renal tubular secretion. Performed By: #### H H, BMP #### [facility] [address] [place], [place] [id number] [place] Man: Oliver Cabrera MD Glucose [Mass/Vol] 208 mg/dL High 70-99 [facility] Comment on above: Performed By: #### H H, BMP #### [facility] [address] [place], [place] [id number] [place] Man: Oliver Cabrera MD Potassium [Moles/Vol] 4.8 mmol/L Normal 3.7-5.3 [facility] Comment on above: Performed By: #### H H, BMP #### [facility] [address] [place], [place] [id number] [place] Man: Oliver Cabrera MD Sodium [Moles/Vol] 132 mmol/L Low 135-144 [facility] Comment on above: Performed By: #### H H, BMP #### [address] [place], [place] [id number] [place] Man: Oliver Cabrera MD Urea nitrogen [Mass/Vol] 25 mg/dL High 8-23 [facility] Comment on above: Performed By: #### H H, BMP #### [address] [place], [place] [id number] [place] Man: Oliver Cabrera MD Hgb/Hcton 06-26-2023 Hematocrit (Bld) [Volume fraction] 37.2 % Low 40.7-50.3 [facility] Comment on above: Performed By: #### H H, BMP #### [facility] [address] [place], [place] [id number] [place] Man: Oliver Cabrera MD Hemoglobin (Bld) [Mass/Vol] 12.6 g/dL Low 13.0-17.0 [facility] Comment on above: Performed By: #### H H, BMP #### [facility] [address] [place], [place] [id number] [place] Man: Oliver Cabrera MD MRSA, DNA, Nasalon 3 MRSA, DNA, Nasal Negative Normal [facility] Comment on above: Result Comment: ANKITA JOHNSON: MRSA DNA not detected by nucleic acid amplification. Results should be used as an adjunct to nosocomial control efforts to identify patients needing enhanced precautions. The test is not intended to identify patients with staphylococcal infections. Results should not be used to guide or monitor treatment for MRSA infections. Performed By: #### C DP, CP, UMICAO, PT, PTT, UAX #### [facility] [address] [place] [address] [place] Man: Oliver Cabrera MD #### MRSANO #### [facility] [address] [place] [address] [place] Man: Glenn Noyola MD [facility] [address] [place] [address] [place] Man: Oliver Cabrera MD XR CHEST (2 VW)on 06-11-2023 XR CHEST (2 VW) EXAMINATION: TWO XRAY VIEWS OF THE CHEST 06/10/2023 2:05 pm COMPARISON: Two-view chest from 2008. HISTORY: ORDERING SYSTEM PROVIDED HISTORY: MRSA (methicillin resistant Staphylococcus aureus) carrier FINDINGS: Cardiac silhouette stable and not enlarged; mediastinal structures midline with slight prominence left hilar shadow compared to 2008. Bibasilar airspace opacities, larger and probably slightly denser on the left. Slightly greater elevation right hemidiaphragm. No large pleural effusion or pneumothorax. Increased kyphosis and degenerative change thoracic spine with some nonacute appearing height loss mid-lower TS vertebral bodies. IMPRESSION: Multifocal bibasilar pneumonia. Probable mild reactive left hilar adenopathy. No sizable pleural effusion. The findings were sent to the Radiology Results Communication Center at 9:05 a.m. on 06/11/2023 to be communicated to a licensed caregiver. Interpreted by: Chris Wiseman MD Signed by: Chris Wiseman MD 06/11/23 Final result Normal [facility] Multifocal bibasilar pneumonia. Probable mild reactive left hilar adenopathy. No sizable pleural effusion. The findings were sent to the Radiology Results Communication Center at 9:05 a.m. on 06/11/2023 to be communicated to a licensed caregiver. [facility] EXAMINATION: TWO XRAY VIEWS OF THE CHEST 06/10/2023 2:05 pm COMPARISON: Two-view chest from 2008. HISTORY: ORDERING SYSTEM PROVIDED HISTORY: MRSA (methicillin resistant Staphylococcus aureus) carrier FINDINGS: Cardiac silhouette stable and not enlarged; mediastinal structures midline with slight prominence left hilar shadow compared to 2008. Bibasilar airspace opacities, larger and probably slightly denser on the left. Slightly greater elevation right hemidiaphragm. No large pleural effusion or pneumothorax. Increased kyphosis and degenerative change thoracic spine with some nonacute appearing height loss mid-lower TS vertebral bodies. [facility] Chris Wiseman MD - 06/11/2023 EXAMINATION: TWO XRAY VIEWS OF THE CHEST 06/10/2023 2:05 pm COMPARISON: Two-view chest from 2008. HISTORY: ORDERING SYSTEM PROVIDED HISTORY: MRSA (methicillin resistant Staphylococcus aureus) carrier FINDINGS: Cardiac silhouette stable and not enlarged; mediastinal structures midline with slight prominence left hilar shadow compared to 2009. Bibasilar airspace opacities, larger and probably slightly denser on the left. Slightly greater elevation right hemidiaphragm. No large pleural effusion or pneumothorax. Increased kyphosis and degenerative change thoracic spine with some nonacute appearing height loss mid-lower TS vertebral bodies. IMPRESSION: Multifocal bibasilar pneumonia. Probable mild reactive left hilar adenopathy. No sizable pleural effusion. The findings were sent to the Radiology Results Communication Center at 9:05 a.m. on 06/11/2023 to be communicated to a licensed caregiver. [facility] XR CHEST (2 VW)Ordered By: Mame Wiseman on 06-11-2023 [facility] Work Phone: APTTon 06-10-2023 aPTT Coag (Blgrabiel) [Time] s Critically high 26.8-34.8 [facility] Comment on above: Result Comment: IV Heparin Therapy Range: 62.0-94.0 Performed By: #### C DP, CP, UMICAO, PT, PTT, UAX #### [facility] [address] [place] [address] [place] Man: Oliver Cabrera MD #### MRSANO #### [facility] [address] [place], [place] [id number] [place] Man: Glenn Noyola MD [facility] [address] [place] [address] [place] Man: Oliver Cabrera MD Interpretation and review of laboratory results Abnormal [facility] PTT Critically high [facility] Comment on above: IV Heparin Therapy Range: 62.0-94.0 [facility] CBC with Auto Differentialon 06-10-2023 Basophils (Bld) [#/Vol] 0.07 10*3/uL [facility] Basophils/100 WBC (Bld) 1 % 0 - 2 % [facility] Eosinophils (Bld) [#/Vol] 1.14 10*3/uL High [facility] Eosinophils/100 WBC (Bld) 9 % High 1 - 4 % [facility] Erythrocyte distribution width (RBC) [Ratio] 12.5 % 11.8 - 14.4 % [facility] Hematocrit (Bld) [Volume fraction] 40.4 % Low 40.7 - 50.3 % [facility] Hemoglobin (Bld) [Mass/Vol] 13.7 g/dL 13.0 - 17.0 g/dL [facility] Immature granulocytes (Bld) [#/Vol] 0.06 10*3/uL [facility] Immature granulocytes/100 WBC (Bld) 1 % High 0 [facility] Interpretation and review of laboratory results Abnormal [facility] Lymphocytes/100 WBC (Bld) 12 % Low 24 - 43 % [facility] Lymphocytes/100 WBC (Bld) 1.47 % [facility] MCH (RBC) [Entitic mass] 30.4 pg 25.2 - 33.5 pg [facility] MCHC (RBC) [Mass/Vol] 33.9 g/dL 28.4 - 34.8 g/dL [facility] MCV (RBC) [Entitic vol] 89.8 fL 82.6 - 102.9 fL [facility] Monocytes/100 WBC (Bld) 6 % 3 - 12 % [facility] Monocytes/100 WBC (Bld) 0.73 % [facility] Neutrophils/100 WBC (Bld) 71 % High 36 - 65 % [facility] Nucleated RBC/100 WBC (Bld) [Ratio] 0.0 % 0.0 per 100 WBC [facility] Platelet mean volume (Bld) [Entitic vol] 9.3 fL 8.1 - 13.5 fL [facility] Platelets (Bld) [#/Vol] 162 10*3/uL [facility] RBC (Bld) [#/Vol] 4.50 10*6/uL 4.21 - 5.7 7 m/uL [facility] Segmented neutrophils/100 WBC (Bld) 8.83 % High [facility] WBC other (Bld) [#/Vol] 12.3 High [facility] CBC with Diffon 06-10-2023 Abs. Basophil 0.07 k/uL Normal 0.00-0.20 [facility] Comment on above: Performed By: #### C DP, CP, UMICAO, PT, PTT, UAX #### [address] [place] [id number] [place] Man: Oliver Cabrera MD #### MRSANO #### [address] [id number] [place] Man: Glenn Noyola MD [facility] [address] [place] [address] [place] [address] [place] Man: Oliver Cabrera MD Abs.Imm.Granulocyte 0.06 k/uL Normal 0.00-0.30 [facility] Comment on above: Performed By: #### C DP, CP, UMICAO, PT, PTT, UAX #### [address] [place] [address] [place] Man: Oliver Cabrera MD #### MRSANO #### [id number] [place] [address] [place] Man: Glenn Noyola MD [address] [place] [address] [place] Man: Oliver Cabrera MD Abs.Neutrophil (Seg) 8.83 k/uL High 1.50-8.10 [facility] Comment on above: Performed By: #### C DP, CP, UMICAO, PT, PTT, UAX #### [address] [place] [address] [place] Man: Oliver Cabrera MD #### MRSANO #### [address] [address] [place] Man: Glenn Noyola MD [address] [place] [address] [place] Man: Oliver Cabrera MD Basophils/100 WBC (Bld) 1 % Normal 0-2 [facility] Comment on above: Performed By: #### C DP, CP, UMICAO, PT, PTT, UAX #### [address] [place] [address] [place] Man: Oliver Cabrera MD #### MRSANO #### [address] [address] [place] Man: Glenn Noyola MD [address] [place] [address] [place] Man: Oliver Cabrera MD Eosinophils (Bld) [#/Vol] 1.14 10*3/uL High 0.00-0.44 [facility] Comment on above: Performed By: #### C DP, CP, UMICAO, PT, PTT, UAX #### [address] [place], [place] [phone] [place] Man: Oliver Cabrera MD #### MRSANO #### [facility] [address] [place], [place] [id number] [place] Man: Glenn Noyola MD [address] [place], [place] [phone] [place] Man: Oliver Cabrera MD Eosinophils/100 WBC (Bld) 9 % High 1-4 [facility] Comment on above: Performed By: #### C DP, CP, UMICAO, PT, PTT, UAX #### [address] [place], [place] [phone] [place] Man: Oliver Cabrera MD #### MRSANO #### [id number] [place], [place] [phone] [place] Man: Glenn Noyola MD [address] [place] [phone] [place] Man: Oliver Cabrera MD Erythrocyte distribution width (RBC) [Ratio] 12.5 % Normal 11.8-14.4 [facility] Comment on above: Performed By: #### C DP, CP, UMICAO, PT, PTT, UAX #### [address] [place], [place] [phone] [place] Man: Oliver Cabrera MD #### MRSANO #### [address] [address] [place] Man: Glenn Noyola MD [address] [place] [phone] [place] Man: Oliver Cabrera MD Hematocrit (Bld) [Volume fraction] 40.4 % Low 40.7-50.3 [facility] Comment on above: Performed By: #### C DP, CP, UMICAO, PT, PTT, UAX #### [address] [place], [place] 5150583 [place] Man: Oliver Cabrera MD #### MRSANO #### [facility] [address] [place] [address] [place] Man: Glenn Noyola MD [address] [place] [address] [place] Man: Oliver Cabrera MD Hemoglobin (Bld) [Mass/Vol] 13.7 g/dL Normal 13.0-17.0 [facility] Comment on above: Performed By: #### C DP, CP, UMICAO, PT, PTT, UAX #### [address] [place] [phone] [place] Man: Oliver Cabrera MD #### MRSANO #### [address] [address] [place] Man: Glenn Noyola MD [address] [place] [address] [place] Man: Oliver Cabrera MD Immature granulocytes/100 WBC (Bld) 1 % High 0 [facility] Comment on above: Performed By: #### C DP, CP, UMICAO, PT, PTT, UAX #### [address] [place] [address] [place] Man: Oliver Cabrera MD #### MRSANO #### [address] [address] [place] Man: Glenn Noyola MD [address] [place] [address] [place] Man: Oliver Cabrera MD Lymphocytes (Bld) [#/Vol] 1.47 10*3/uL Normal 1.10-3.70 [facility] Comment on above: Performed By: #### C DP, CP, UMICAO, PT, PTT, UAX #### [address] [place] [phone] [place] Man: Oliver Cabrera MD #### MRSANO #### [facility] [address] [place], [place] [phone] [place] Man: Glenn Noyola MD [address] [place], [place] [phone] [place] Man: Oliver Cabrera MD Lymphocytes/100 WBC (Bld) 12 % Low 24-43 [facility] Comment on above: Performed By: #### C DP, CP, UMICAO, PT, PTT, UAX #### [address] [place], [place] 3199083 [place] Man: Oliver Cabrera MD #### MRSANO #### [facility] [address] [place], [place] [phone] [place] Man: Glenn Noyola MD [address] [place] [phone] [place] Man: Oliver Cabrera MD MCH (RBC) [Entitic mass] 30.4 pg Normal 25.2-33.5 [facility] Comment on above: Performed By: #### C DP, CP, UMICAO, PT, PTT, UAX #### [address] [place], [place] [phone] [place] Man: Oliver Cabrera MD #### MRSANO #### [facility] [address] [place] [address] [place] Man: Glenn Noyola MD [address] [place] [phone] [place] Man: Oliver Cabrera MD MCHC (RBC) [Mass/Vol] 33.9 g/dL Normal 28.4-34.8 [facility] Comment on above: Performed By: #### C DP, CP, UMICAO, PT, PTT, UAX #### [address] [place], [place] 1782383 [place] Man: Oliver Cabrera MD #### MRSANO #### [address] [place] [address] [place] Man: Glenn Noyola MD [address] [place] [address] [place] Man: Oliver Cabrera MD MCV (RBC) [Entitic vol] 89.8 fL Normal 82.6-102.9 [facility] Comment on above: Performed By: #### C DP, CP, UMICAO, PT, PTT, UAX #### [address] [place] [address] [place] Man: Oliver Cabrera MD #### MRSANO #### [place] [address] [place] Man: Glenn Noyola MD [address] [place] [address] [place] Man: Oliver Cabrera MD Monocytes (Bld) [#/Vol] 0.73 10*3/uL Normal 0.10-1.20 [facility] Comment on above: Performed By: #### C DP, CP, UMICAO, PT, PTT, UAX #### [address] [place] [address] [place] Man: Oliver Cabrera MD #### MRSANO #### [place] [address] [place] Man: Glenn Noyola MD [address] [place] [address] [place] Man: Oliver Cabrera MD Monocytes/100 WBC (Bld) 6 % Normal 3-12 [facility] Comment on above: Performed By: #### C DP, CP, UMICAO, PT, PTT, UAX #### [address] [place] [address] Hot [place] Man: Oliver Cabrera MD #### MRSANO #### [facility] [address] [place] [address] [place] Man: Glenn Noyola MD [address] [place], [place] 4588983 [place] Man: Oliver Cabrera MD Neutrophil (Seg) 71 % High 36-65 [facility] Comment on above: Performed By: #### C DP, CP, UMICAO, PT, PTT, UAX #### [address] [place], [place] 4778183 [place] Man: Oliver Cabrera MD #### MRSANO #### [address] [place] [address] [place] Man: Glenn Noyola MD [address] [place] [address] [place] Man: Oliver Cabrera MD NRBC Automated 0.0 per 100 WBC Normal 0.0 [facility] Comment on above: Performed By: #### C DP, CP, UMICAO, PT, PTT, UAX #### [address] [place], [place] 5347083 [place] Man: Oliver Cabrera MD #### MRSANO #### [address] [address] [place] Man: Glenn Noyola MD [address] [place] [phone] [place] Man: Oliver Cabrera MD Platelet mean volume (Bld) [Entitic vol] 9.3 fL Normal 8.1-13.5 [facility] Comment on above: Performed By: #### C DP, CP, UMICAO, PT, PTT, UAX #### [address] [place], [place] 2146483 [place] Man: Oliver Cabrera MD #### MRSANO #### [facility] [address] [place] [address] [place] Man: Glenn Noyola MD [address] [place] [address] [place] Man: Oliver Cabrera MD Platelets (Bld) [#/Vol] 162 10*3/uL Normal 138-453 [facility] Comment on above: Performed By: #### C DP, CP, UMICAO, PT, PTT, UAX #### [address] [place] [address] [place] Man: Oliver Cabrera MD #### MRSANO #### [facility] [address] [place] [address] [place] Man: Glenn Noyola MD [address] [place] [address] [place] Man: Oliver Cabrera MD RBC (Bld) [#/Vol] 4.50 10*6/uL Normal 4.21-5.77 [facility] Comment on above: Performed By: #### C DP, CP, UMICAO, PT, PTT, UAX #### [address] [place] [address] [place] Man: Oliver Cabrera MD #### MRSANO #### [facility] [address] [place] [address] [place] Man: Glenn Noyola MD [address] [place] [address] [place] Man: Oliver Cabrera MD WBC (Bld) [#/Vol] 12.3 10*3/uL High 3.5-11.3 [facility] Comment on above: Performed By: #### C DP, CP, UMICAO, PT, PTT, UAX #### [address] [place], [place] 3235283 [place] Man: Oliver Cabrera MD #### MRSANO #### [facility] [address] [place] [address] [place] Man: Glenn Noyola MD [address] [place], [place] 2582583 [place] Man: Oliver Cabrera MD Comp Metabolic Profon 2022 Albumin [Mass/Vol] 4.2 g/dL Normal 3.5-5.2 [facility] Comment on above: Performed By: #### C DP, CP, UMICAO, PT, PTT, UAX #### [address] [place], [place] 9798383 [place] Man: Oliver Cabrera MD #### MRSANO #### [address] [address] [place] Man: Glenn Noyola MD [address] [place] [phone] [place] Man: Oliver Cabrera MD Albumin/Glob Ratio 1.6 Normal 1.0-2.5 [facility] Comment on above: Performed By: #### C DP, CP, UMICAO, PT, PTT, UAX #### [address] [place], [place] 6379883 [place] Man: Oliver Cabrera MD #### MRSANO #### [address] [address] [place] Man: Glenn Noyola MD [address] [place], [place] [phone] [place] Man: Oliver Cabrera MD Alkaline Phos 132 U/L High 40-129 [facility] Comment on above: Performed By: #### C DP, CP, UMICAO, PT, PTT, UAX #### [address] [place] [address] [place] Man: Oliver Cabrera MD #### MRSANO #### [facility] [address] [place] [address] [place] Man: Glenn Noyola MD [address] [place] [address] [place] Man: Oliver Cabrera MD ALT [Catalytic activity/Vol] 102 U/L High 5-41 [facility] Comment on above: Performed By: #### C DP, CP, UMICAO, PT, PTT, UAX #### [address] [place] [address] [place] Man: Oliver Cabrera MD #### MRSANO #### [facility] [address] [place] [address] [place] Man: Glenn Noyola MD [address] [place] [address] [place] Man: Oliver Cabrera MD Anion gap [Moles/Vol] 10 mmol/L Normal 9-17 [facility] Comment on above: Performed By: #### C DP, CP, UMICAO, PT, PTT, UAX #### [address] [place] [address] [place] Man: Oliver Cabrera MD #### MRSANO #### [facility] [address] [place] [address] [place] Man: Glenn Noyola MD [facility] [address] [place] [address] [place] [address] [place] Man: Oliver Cabrera MD AST [Catalytic activity/Vol] 33 U/L Normal <40 [facility] Comment on above: Performed By: #### C DP, CP, UMICAO, PT, PTT, UAX #### [facility] [address] [place] [address] Dr[place], [place] [phone] [place] Man: Oliver Cabrera MD #### MRSANO #### [facility] [address] [place] [address] [place] Man: Glenn Noyola MD [address] [place] [address] [place] Man: Oliver Cabrera MD Bilirubin [Mass/Vol] 0.5 mg/dL Normal 0.3-1.2 [facility] Comment on above: Performed By: #### C DP, CP, UMICAO, PT, PTT, UAX #### [address] [place], [place] 1790683 [place] Man: Oliver Cabrera MD #### MRSANO #### [address] [address] [place] Man: Glenn Noyola MD [address] [place] [address] [place] Man: Oliver Cabrera MD BUN/CRE Ratio 18 Normal 9-20 [facility] Comment on above: Performed By: #### C DP, CP, UMICAO, PT, PTT, UAX #### [address] [place] [address] [place] Man: Oliver Cabrera MD #### MRSANO #### [address] [address] [place] Man: Glenn Noyola MD [address] [place], [place] 5053683 [place] Man: Oliver Cabrera MD Calcium [Mass/Vol] 9.6 mg/dL Normal 8.6-10.4 [facility] Comment on above: Performed By: #### C DP, CP, UMICAO, PT, PTT, UAX #### [address] [place], [place] 3476683 [place] Man: Oliver Cabrera MD #### MRSANO #### [facility] [address] [place] [address] [place] Man: Glenn Noyola MD [address] [place], [place] 4805583 [place] Man: Oliver Cabrera MD Chloride [Moles/Vol] 95 mmol/L Low 98-107 [facility] Comment on above: Performed By: #### C DP, CP, UMICAO, PT, PTT, UAX #### [address] [place] [address] [place] Man: Oliver Cabrera MD #### MRSANO #### [address] [address] [place] Man: Glenn Noyola MD [address] [place], [place] [phone] [place] Man: Oliver Cabrera MD CO2 [Moles/Vol] 26 mmol/L Normal 20-31 [facility] Comment on above: Performed By: #### C DP, CP, UMICAO, PT, PTT, UAX #### [address] [place], [place] 3115083 [place] Man: Oliver Cabrera MD #### MRSANO #### [address] [address] [place] Man: Glenn Noyola MD [address] [place] [address] [place] Man: Oliver Cabrera MD Creatinine [Mass/Vol] 0.8 mg/dL Normal 0.7-1.2 [facility] Comment on above: Performed By: #### C DP, CP, UMICAO, PT, PTT, UAX #### [address] [place] [address] [place] Man: Oliver Cabrera MD #### MRSANO #### [address] [place] [address] [place] Man: Glenn Noyola MD [address] [place], [place] 5925483 [place] Man: Oliver Cabrera MD GFR/1.73 sq M.predicted among non-blacks MDRD (S/P/Bld) [Vol rate/Area] mL/min/{1.73_m2} Normal >60 [facility] Comment on above: Result Comment: These results are not intended for use in patients <18 years of age. eGFR results are calculated without a race factor using the 2020 CKD-EPI equation. Careful clinical correlation is recommended, particularly when comparing to results calculated using previous equations. The CKD-EPI equation is less accurate in patients with extremes of muscle mass, extra-renal metabolism of creatine, excessive creatine ingestion, or following therapy that affects renal tubular secretion. Performed By: #### C DP, CP, UMICAO, PT, PTT, UAX #### [address] [place], [place] [phone] [place] Man: Oliver Cabrera MD #### MRSANO #### [facility] [address] [place] [address] [place] Man: Glenn Noyola MD [address] [place] [phone] [place] Man: Oliver Cabrera MD Glucose [Mass/Vol] 332 mg/dL High 70-99 [facility] Comment on above: Performed By: #### C DP, CP, UMICAO, PT, PTT, UAX #### [address] [place], [place] 7077483 [place] Man: Oliver Cabrera MD #### MRSANO #### [facility] [address] [place] [address] [place] Man: Glenn Noyola MD [address] [place], [place] 2821083 [place] Man: Oliver Cabrera MD Potassium [Moles/Vol] 5.0 mmol/L Normal 3.7-5.3 [facility] Comment on above: Performed By: #### C UZMA AMEZQUITA, UMICAO, PT, PTT, UAX #### [address] [place] [address] [place] Man: Oliver Cabrera MD #### MRSANO #### [facility] [address] [place] [address] [place] Man: Glenn Noyola MD [address] [place] [address] [place] Man: Oliver Cabrera MD Protein [Mass/Vol] 6.9 g/dL Normal 6.4-8.3 [facility] Comment on above: Performed By: #### C UZMA AMEZQUITA, UMICAO, PT, PTT, UAX #### [address] [place] [address] [place] Man: Oliver Cabrera MD #### MRSANO #### [facility] [address] [place] [address] [place] Man: Glenn Noyola MD [address] [place] [address] [place] Man: Oliver Cabrera MD Sodium [Moles/Vol] 131 mmol/L Low 135-144 [facility] Comment on above: Performed By: #### C UZMA AMEZQUITA, UMICAO, PT, PTT, UAX #### [address] [place] [address] [place] Man: Oliver Cabrera MD #### MRSANO #### [facility] [address] [place] [address] [place] Man: Glenn Noyola MD [address] [place], [place] 2289683 [place] Man: Oliver Cabrera MD Urea nitrogen [Mass/Vol] 14 mg/dL Normal 06-10 [facility] Comment on above: Performed By: #### C DP, CP, UMICAO, PT, PTT, UAX #### [facility] [address] [place] [address] [place] Man: Oliver Cabrera MD #### MRSANO #### [facility] [address] [place] [address] [place] Man: Glenn Noyola MD [facility] [address] [place] [address] [place] Man: Oliver Cabrera MD Comprehensive Metabolic Pane [facility] 06-10-2023 Albumin [Mass/Vol] 4.2 g/dL 3.5 - 5.2 g/dL [facility] Albumin/Globulin [Mass ratio] 1.6 {ratio} 1.0 - 2.5 [facility] ALP [Catalytic activity/Vol] 132 U/L High 40 - 129 U/L [facility] ALT [Catalytic activity/Vol] 102 U/L High 5 - 41 U/L [facility] Anion gap [Moles/Vol] 10 mmol/L 9 - 17 mmol/L [facility] AST [Catalytic activity/Vol] 33 U/L NINF - 40 U/L [facility] Bilirubin [Mass/Vol] 0.5 mg/dL 0.3 - 1.2 mg/dL [facility] Calcium [Mass/Vol] 9.6 mg/dL 8.6 - 10. 4 mg/dL [facility] Chloride [Moles/Vol] 95 mmol/L Low 98 - 107 mmol/L [facility] CO2 [Moles/Vol] 26 mmol/L 20 - 31 mmol/L [facility] Creatinine [Mass/Vol] 0.8 mg/dL 0.7 - 1.2 mg/dL [facility] GFR/1.73 sq M.predicted MDRD (S/P/Bld) [Vol rate/Area] - PINF [facility] Comment on above: These results are not intended for use in patients <18 years of age. eGFR results are calculated without a race factor using the 2020 CKD-EPI equation. Careful clinical correlation is recommended, particularly when comparing to results calculated using previous equations. The CKD-EPI equation is less accurate in patients with extremes of muscle mass, extra-renal metabolism of creatine, excessive creatine ingestion, or following therapy that affects renal tubular secretion. Glucose [Mass/Vol] 332 mg/dL High 70 - 99 mg/dL [facility] Interpretation and review of laboratory results Abnormal [facility] Potassium [Moles/Vol] 5.0 mmol/L 3.7 - 5.3 mmol/L [facility] Protein [Mass/Vol] 6.9 g/dL 6.4 - 8.3 g/dL [facility] Sodium [Moles/Vol] 131 mmol/L Low 135 - 144 mmol/L [facility] Urea nitrogen [Mass/Vol] 14 mg/dL 8 - 23 mg/dL [facility] Urea nitrogen/Creatinine [Mass ratio] 18 mg/mg 9 - 20 [facility] MRSA, DNA, Nasalon 3 Specimen Description .NASAL SWAB Normal [facility] Comment on above: Performed By: #### C DP, CP, UMICAO, PT, PTT, UAX #### [facility] [address] [place] [address] [place] [address] [place] Man: Oliver Cabrera MD #### MRSANO #### [address] [address] [place] Man: Glenn Noyola MD [facility] [address] [place] [address] [place] [address] [place] Man: Oliver Cabrera MD Microscopic Urinalysison Bacteria LM Ql (Urine sed) TRACE Abnormal None [facility] Epithelial cells LM.HPF (Urine sed) [#/Area] 0 TO 2 [facility] Interpretation and review of laboratory results Abnormal [facility] Mucus Ql (Urine sed) TRACE Abnormal None [facility] RBC LM.HPF (Urine sed) [#/Area] 0 TO 2 [facility] WBC LM.HPF (Urine sed) [#/Area] 0 TO 2 [facility] PTon 06-10-2023 INR Coag (PPP) [Relative time] 10.1 {INR} Critically high [facility] Comment on above: Result Comment: Therapeutic Range: Moderate Anticoagulant Intensity: INR = 2.0-3.0 High Anticoagulant Intensity: INR = 2.5-3.5 Performed By: #### C DP, CP, UMICAO, PT, PTT, UAX #### [address] [place], [place] [id number] [place] Man: Oliver Cabrera MD #### MRSANO #### [address] [place], [place] [phone] [place] Man: Glenn Noyola MD [address] [place] [phone] [place] Man: Oliver Cabrera MD PT Coag (PPP) [Time] 80.7 s High 11.9-14.8 [facility] Comment on above: Performed By: #### C DP, CP, UMICAO, PT, PTT, UAX #### [address] [place], [place] [phone] [place] Man: Oliver Cabrera MD #### MRSANO #### [address] [id number] [place] Man: Glenn Noyola MD [address] [place], [facility] [place] Man: Oliver Cabrera MD Protime-INRon 06-10-2023 INR Coag (PPP) [Relative time] 10.1 {INR} Critically high [facility] Comment on above: Therapeutic Range: Moderate Anticoagulant Intensity: INR = 2.0-3.0 High Anticoagulant Intensity: INR = 2.5-3.5 Interpretation and review of laboratory results Abnormal [facility] PT Coag (PPP) [Time] 80.7 s High [facility] TYPE AND SCREENon 06-10-2023 ABO and Rh group Nom (Bld) Blood group A Rh(D) positive [facility] Arm Band Number [id number] [facility] Blood Bank Sample Expiration 06/13/2023,2359 [facility] Blood group antibodies identified Nom Negative [facility] Type + Screenon 06-10-2023 Type + Screen Sample Expiration 06/13/2023,2359 Arm Band Number [id number] ABO/Rh(D) A POSITIVE Antibody Screen NEGATIVE Normal [facility] Comment on above: Performed By: #### H H, BMP #### [address] [place] [address] [place] Man: Oliver Cabrera MD UA w/Reflex Cultureon 2022 Bilirubin, SemiQt,Ur Negative Normal NEG [facility] Comment on above: Performed By: #### C DP, CP, UMICAO, PT, PTT, UAX #### [address] [place], [place] 3649583 [place] Man: Oliver Cabrera MD #### MRSANO #### [address] [id number] [place] Man: Glenn Noyola MD [address] [place] [phone] [place] Man: Oliver Cabrera MD Blood, Urine Negative Normal [facility] Comment on above: Performed By: #### C DP, CP, UMICAO, PT, PTT, UAX #### [address] [place] [address] [place] Man: Oliver Cabrera MD #### MRSANO #### [address] [address] [place] Man: Glenn Noyola MD [address] [place] [address] [place] Man: Oliver Cabrera MD Clarity (U) Clear Normal CLEAR [facility] Comment on above: Performed By: #### C DP, CP, UMICAO, PT, PTT, UAX #### [address] [place] [address] [place] Man: Oliver Cabrera MD #### MRSANO #### [facility] [address] [place] [address] [place] Man: lGenn Noyola MD [address] [place] [address] [place] Man: Oliver Cabrera MD Color (U) Yellow Normal YEL [facility] Comment on above: Performed By: #### C DP, CP, UMICAO, PT, PTT, UAX #### [address] [place] [address] [place] Man: Oliver Cabrera MD #### MRSANO #### [facility] [address] [place] [address] [place] Man: Glenn Noyola MD [address] [place] [address] [place] Man: Oliver Cabrera MD Glucose Ql (U) 2+ mg/dL [facility]normal [facility] [facility] Comment on above: Performed By: #### C DP, CP, UMICAO, PT, PTT, UAX #### [facility] [address] [place] [address] [place] [address] [place] Man: Oliver Cabrera MD #### MRSANO #### [facility] [address] [place] [address] [place] Man: Glenn Noyola MD [address] [place] [address] [place] Man: Oliver Cabrera MD Ketones Ql (U) Negative Normal NEG [facility] Comment on above: Performed By: #### C DP, CP, UMICAO, PT, PTT, UAX #### [address] [place] [address] [place] Man: Oliver Cabrera MD #### MRSANO #### [address] [address] [place] Man: Glenn Noyola MD [address] [place] [address] [place] Man: Oliver Cabrera MD Leukocyte esterase Test strip Ql (U) Negative Normal NEG [facility] Comment on above: Performed By: #### C DP, CP, UMICAO, PT, PTT, UAX #### [address] [place] [address] [place] Man: Oliver Cabrera MD #### MRSANO #### [address] [address] [place] Man: Glenn Noyola MD [address] [place] [address] [place] Man: Oliver Cabrera MD Nitrite,Ur Negative Normal NEG [facility] Comment on above: Performed By: #### C DP, CP, UMICAO, PT, PTT, UAX #### [address] [place] [address] [place] Man: Oliver Cabrera MD #### MRSANO #### [address] [address] [place] Man: Glenn Noyola MD [address] [place] [address] [place] Man: Oliver Cabrera MD PH,Ur 6.5 Normal 5.0-9.0 [facility] Comment on above: Performed By: #### C DP, CP, UMICAO, PT, PTT, UAX #### [address] [place] [address] [place] Man: Oliver Cabrera MD #### MRSANO #### [place] [address] [place] [address] [place] Man: Glenn Noyola MD [address] [place] [address] [place] Man: Oliver Cabrera MD Protein Ql (U) Negative Normal NEG [facility] Comment on above: Performed By: #### C DP, CP, UMICAO, PT, PTT, UAX #### [address] [place] [address] [place] Man: Oliver Cabrera MD #### MRSANO #### [address] [address] [place] Man: Glenn Noyola MD [address] [place] [address] [place] Man: Oliver Cabrera MD Spec. [place],Ur <1.005 Low 1.010-1.020 [facility] Comment on above: Performed By: #### C DP, CP, UMICAO, PT, PTT, UAX #### [address] [place] [address] [place] Man: Oliver Cabrera MD #### MRSANO #### [address] [address] [place] Man: Glenn Noyola MD [address] [place] [address] [place] Man: Oliver Cabrera MD Urobilinogen,Ur Normal Normal 0.0-1.0 [facility] Comment on above: Performed By: #### C DP, CP, UMICAO, PT, PTT, UAX #### [address] [place] [address] [place] Man: Oliver Cabrera MD #### MRSANO #### [facility] [address] [place], [place] [id number] [place] Man: Glenn Noyola MD [facility] [address] [place] [address] [place] [address] [place] Man: Oliver Cabrera MD Urinalysis with Reflex to Cu ltureon 06-10-2023 Bilirubin Ql (U) Negative NEGATIVE [facility] Clarity (U) Clear Clear [facility] Color (U) Yellow Yellow [facility] Glucose Test strip (U) [Mass/Vol] 2+ Abnormal NEGATIVE mg/dL [facility] Hemoglobin Auto test strip Ql (U) Negative NEGATIVE [facility] Interpretation and review of laboratory results Abnormal [facility] Ketones (U) [Mass/Vol] Negative NEGATIVE mg/dL [facility] Leukocyte esterase Test strip Ql (U) Negative NEGATIVE [facility] Nitrite Ql (U) Negative NEGATIVE [facility] pH (U) 6.5 [pH] 5.0 - 9.0 [facility] Protein (U) [Mass/Vol] Negative NEGATIVE mg/dL [facility] Specific gravity (U) [Rel density] Low 1.010 - 1.020 [facility] Urobilinogen Qn (U) Normal 0.0 - 1. 0 EU/dL [facility] Urinalysis,Microon 3 Bacteria TRACE Abnormal NONE [facility] Comment on above: Performed By: #### C DP, CP, UMICAO, PT, PTT, UAX #### [facility] [address] [place] [address] [place] [address] [place] Man: Oliver Cabrera MD #### MRSANO #### [facility] [address] [place], [place] [address] [place] Man: Glenn Noyola MD [facility] [address] [place] [address] [place] [address] [place] Man: Oliver Cabrera MD Epithelial cells LM Ql (Urine sed) 0 TO 2 Normal 0-5 [facility] Comment on above: Performed By: #### C DP, CP, UMICAO, PT, PTT, UAX #### [facility] [address] [place] [address] [place] [address] [place] Man: Oliver Cabrera MD #### MRSANO #### [address] [address] [place] Man: Glenn Noyola MD [address] [place] [address] [place] Man: Oliver Cabrera MD Mucus Strands TRACE Abnormal NONE [facility] Comment on above: Performed By: #### C DP, CP, UMICAO, PT, PTT, UAX #### [address] [place] [id number] [place] Man: Oliver Cabrera MD #### MRSANO #### [address] [address] [place] Man: Glenn Noyola MD [address] [place] [address] [place] Man: Oliver Cabrera MD Urine RBC's 0 TO 2 Normal 0-2 [facility] Comment on above: Performed By: #### C DP, CP, UMICAO, PT, PTT, UAX #### [address] [place] [address] [place] Man: Oliver Cabrera MD #### MRSANO #### [address] [address] [place] Man: Glenn Noyola MD [address] [place], [place] [address] [place] Man: Oliver Cabrera MD Urine WBC's 0 TO 2 Normal 0-5 [facility] Comment on above: Performed By: #### C DP, CP, UMICAO, PT, PTT, UAX #### [facility] [address] [place] [address] [place] Man: Oliver Cabrera MD #### MRSANO #### [address] [place], [place] [id number] [place] Man: Glenn Noyola MD [facility] [address] [place] [address] [place] Man: Oliver Cabrera MD XR CHEST (2 VW)on 06-10-2023 Radiology Study observation (narrative) [facility] CARDIAC STRESS/REST INJE CTIONon 05-25-2023 [facility] CARDIAC STRESS/REST INJECTION Patient Name: JOIE LU STUDY: MYOCARDIAL PERFUSION STRESS TEST WITH LEXISCAN Performing facility: [facility], [address] [place] [address], [address], [place] [address] [facility] Provider: Mily Marlow MD PCP: Dr. Alvarado Supervising provider: Keira Boles MD, [facility] INDICATION: Abnormal EKG; HTN Pre-operative risk assessment for Knee scheduled at [facility] on [facility]. HISTORY: Gender: M; Age: 68 y/o ; Height: 0 cm; Weight: 772.5075369 kg. High Cholesterol; Abnormal EKG; Diabetes; HTN; Quit smoking 40 years ago. Cardiac catheterization on 2007 per patient. COMPARISON: No comparison. ACCESSION NUMBER(S): [id number]; [id number]; [id number] ORDERING CLINICIAN: MILY MARLOW TECHNIQUE: TWO DAY protocol. Stress injection: Date:05-25-23, 31.6 mCi of Myoview IV 20 seconds after rapid injection of Lexiscan. Rest injection: Date: 05-26-23, 33.2 mCi of Myoview IV at rest. The patient had a rapid injection of 0.4 mg of Lexiscan IV over 10 seconds. Imaging was performed by gated tomographic technique. Reason for Lexiscan: uses walker/cane STRESS TEST DATA: Resting heart rate was 93 BPM. Resting blood pressure was 120/86 mmHg. Peak blood pressure was 114/76 mmHg. Peak heart rate was 108 BPM. TEST TERMINATED DUE TO: Protocol completed FINDINGS: STRESS TEST RESULTS: Resting electrocardiogram revealed normal sinus rhythm with left axis deviation and poor R-wave progression in the precordial leads. There were no significant ischemic ECG changes or dysrhythmias. The patient did not have chest pains/symptoms during procedure. There was a normal recovery phase. IMAGING RESULTS: Image quality was good. Rest and stress tomographic images were reviewed and revealed normal perfusion without evidence of ischemia, myocardial infarction, or left ventricular dilatation with stress. Overall left ventricular systolic function appeared to be normal without regional wall motion abnormalities. Ejection fraction was 53%. TID is 1.18 and is normal. There was no evidence of attenuation artifact. IMPRESSION: Normal Lexiscan Myoview cardiac perfusion stress test. No evidence of ischemia or myocardial infarction by perfusion imaging. Normal left ventricular systolic function, ejection fraction 53%. No previous studies are available for comparison. Electronically signed by: GISELE HWANG MD [facility] No Panel Informationon 05-25 Normal -[place] [address] DO Work Phone: CT chest w conon 04-14-2023 CT chest w [facility] [place] [address] [place] [address] CT Scan Report Signed Patient: Joie Lu MR#: [id number] : 1955 Acct:[id number] Age/Sex: 67 / M ADM Date: 04/14/23 Loc: CT Room: Type: [facility] Attending Dr: Agustin Nj MD Copies to: Agustin Nj MD Ordering Provider: Agustin Nj MD Date of Service: 04/14/23 CT/CT chest w con: J44.9, R93.89 CT Chest with contrast TECHNIQUE: Axial imaging with 2-D reconstruction. 90 cc of Isovue-300The CT exam was performed using one or more the following dose reduction techniques: Automated exposure control, adjustment of the MA and/or Kv according to patient size, or use of the iterative reconstruction technique. History: Abnormal chest x-ray. 03/27/23 COMPARISON: None THYROID: Unremarkable TRACHEA AND BRONCHI: Patent ESOPHAGUS: Unremarkable. HEART: Within normal limits PERICARDIAL EFFUSION: None CORONARY ARTERY CALCIFICATION: None MEDIASTINUM: No adenopathy. No pneumoperitoneum. No mediastinal hematoma. PULMONARY IAN: No hilar mass or adenopathy is seen. THORACIC AORTA Unremarkable LUNG NODULE None LUNGS: Multiple patchy areas of groundglass parenchymal density. PLEURAL EFFUSION: None PNEUMOTHORAX: No pneumothorax seen. CHEST WALL: No abnormality AXILLA:Unremarkable BONY STRUCTURES Intact UPPER ABDOMEN: Hepatic steatosis. Cholecystectomy. Incompletely visualized RIGHT renal cyst moderate RIGHT hemidiaphragm elevation. CT/CT chest w con IMPRESSION: Patchy bilateral groundglass parenchymal densities. Consider infiltrate/pneumonitis . Impression dictated by: Alexander Cleveland M.D.04/14/2023 3:15 PM Dictation Location: [place] [address] Transcribed By: [facility] 04/14/23 1515 Dictated By: Alexander Cleveland DO 04/14/23 1504 Signed By: 04/14/23 1515 Normal [facility] Creatinine (Bld) [Mass/Vol]O rdered By: Agustin Nj on 04-14-2023 Creatinine [Mass/Vol] 0.7 mg/dL 0.6-1.3 [facility] Comment on above: ER/ESD physician is notified/shown all ISTAT results.Critical values may be confirmed by laboratory testing ifdeemed necessary by ER attending doctor. Office Visit (Cardiology)on 04-09-2023 Follow-up visit Diagnoses/Problems Assessed Preop cardiovascular exam (V72.81) (Z01.810) Abnormal EKG (794.31) (R94.31) Essential hypertension, benign (401.1) (I10) Hyperlipidemia (272.4) (E78.5) Diabetes mellitus (250.00) (E11.9) Hypothyroid (244.9) (E03.9) Class 2 severe obesity with serious comorbidity and body mass index (BMI) of 38.0 to 38.9 in adult (278.01,V85.38) (E66.01,Z68.38) Former smoker (V15.82) (Z87.891) quit 40 years ago Orders Abnormal EKG, Essential hypertension, benign, Preop cardiovascular exam NM Cardiac Stress/Rest Nuclear Med Order; Status:Hold For - Scheduling,Retrospecti ve Authorization; Requested for:09Apr2023; Radiologist to Determine Optimal Study : Y What are the patient's signs and symptoms? : POC abnormal ekg Class 2 severe obesity with serious comorbidity and body mass index (BMI) of 38.0 to 38.9 in adult Healthy Weight Tips; Status:Complete - Retrospective Authorization; Done: 09Apr2023 Some eating tips that can help you lose weight.; Status:Complete - Retrospective Authorization; Done: 09Apr2023 SocHx: Former smoker Tobacco Use Screening; Status:Complete; Done: 09Apr2023 Tobacco Use Screening; Status:Complete; Done: 09Apr2023 Patient Instructions Please bring all medicines, vitamins, and herbal supplements with you when you come to the office. Prescriptions will not be filled unless you are compliant with your follow up appointments or have a follow up appointment scheduled as per instruction of your physician. Refills should be requested at the time of your visit. Lexiscan Stress Follow up in 4-5 months The provider reviewed the following test(s) and result(s) with the patient: ECG Chief Complaint JOIE LU is being seen for a consultation for POC Rt Knee replacement. History of Present Illness Patient is here for cardiovascular evaluation for preoperative risk assessment for knee surgery requested by Dr. Buck due to abnormal EKG showing probable old anteroseptal wall myocardial infarction. Patient is 67-year-old who denies any previous cardiac history. He actually report cardiac catheterization 15 years ago and a stress test 5 years ago apparently old turned out to be normal according to him. Unfortunately none of those records available to me. The patient reported reasonable functional status. He used stationary bike for about 10 minutes. He denies complaint of chest pain, palpitation, lightheadedness, dizziness or syncope. The patient does have multiple risk factor for ischemic heart disease including hypertension, diabetes mellitus, hyperlipidemia, sedentary lifestyle and age. His EKG today showing probable anteroseptal wall myocardial infarction. Unfortunately I do not have any previous EKG to compare. The patient denies chest pain, palpitation, lightheadedness, dizziness or syncope Assessment 1. Abnormal EKG suspicious of old anteroseptal wall myocardial infarction. Patient denies previous history of coronary artery disease. He report cardiac catheterization done 15 years ago was normal but I do not have copy of that 2. Hypertension 3. Hyperlipidemia 4. Diabetes mellitus 5. Hypothyroidism 6. Obesity 7. Limited exercise tolerance due to degenerative joint disease of the knee Plan 1. In view of upcoming major orthopedic surgery, difficulty determining exactly functional status due to advanced degenerative joint disease and considering his multiple risk factors and grossly abnormal EKG I suggested the patient that he should proceed with Lexiscan myocardial perfusion study prior to his surgery for preoperative risk assessment 2. We will address his operative risk following the review of the result of the stress test 3. We discussed primary and secondary prevention 4. We will see him back in the office in 3 months and follow-up Surgical History Problems History of Back surgery History of Cholecystectomy History of Complete colonoscopy 2017 History of Knee replacement History of Toe amputation Current Meds Medication NameInstruction amLODIPine Besylate 5 MG Oral TabletTAKE 1 TABLET BY MOUTH DAILY Atorvastatin Calcium 10 MG Oral TabletTAKE 1 TABLET BY MOUTH DAILY BEFORE bed busPIRone HCl - 30 MG Oral TabletTAKE 1 TABLET BY MOUTH EVERY 12 HOURS clonazePAM 1 MG Oral TabletTAKE 1 TABLET BY MOUTH THREE TIMES DAILY Gabapentin 300 MG Oral CapsuleTAKE 2 CAPSULES BY MOUTH THREE TIMES DAILY NEEDED FOR PAIN Glimepiride 4 MG Oral TabletTAKE 1 TABLET BY MOUTH EVERY 12 HOURS hydrOXYzine HCl - 50 MG Oral Tablet Levothyroxine Sodium 125 MCG Oral CapsuleTAKE 1 CAPSULE BY MOUTH EVERY MORNING BEFORE BREAKFAST ON EMPTY STOMACH Lisinopril 20 MG Oral TabletTAKE 1 TABLET BY MOUTH DAILY Loratadine 10 MG Oral TabletTAKE 1 TABLET BY MOUTH DAILY metFORMIN HCl - 850 MG Oral TabletTAKE 1 TABLET BY MOUTH TWICE DAILY Prazosin HCl - 1 MG Oral CapsuleTAKE 1 CAPSULE BY MOUTH at night traMADol HCl - 50 MG Oral TabletTAKE 1 TABLET BY MOUTH EVERY 6 HOURS NEE (more content not included)... Normal [facility] XR Chest 2 Viewson 3 XR Chest 2 Views Exam Date/Time: 03/27/2023 08:44 EDT Reason for Exam: Other (please specify) Report IMPRESSION: NONSPECIFIC MID TO LOWER LUNG ZONE OPACITIES MAY BE BRONCHOPNEUMONIA OR NUMEROUS OTHER POSSIBILITIES. CLINICAL CORRELATION AND FURTHER EVALUATION WITH CT MAY BE APPROPRIATE; UNLESS OUTSIDE PRIOR STUDIES CAN BE MADE AVAILABLE FOR DIRECT COMPARISON. EXAM: XR Chest 2 Views DATE: 03/27/2023 CLINICAL HISTORY: Presurgical testing. COMPARISON: None available. TECHNIQUE: Upright PA and lateral radiographs of the chest were obtained. FINDINGS: Mild patchy airspace and interstitial opacities in the mid to lower lung zones are present with mild probably chronic elevation of the right hemidiaphragm There is no cardiomegaly, pleural effusion, vascular congestion, pneumothorax, or displaced fractures identified. Ordering Provider: Byers Ahmad FINAL REPORT Dictated: 03/30/2023 4:49 am Arnoldo Grace MD Signed (Electronic Signature): 03/30/2023 4:49 am Signed by: Arnoldo Grace MD Transcribed by: BIA Technologist: STEFANY Technical Comments Radiation Dose: Ka,r in mGy = 0 DAP = 0 Normal [facility] ABO/Rh Retypeon 03-27-2023 ABO/Rh Retype Interp Positive Invalid Interpretation Code [facility] Comment on above: Performed By: #### 1 [id number] #### [facility] [address] [place] [address] BUNon 03-27-2023 Urea nitrogen [Mass/Vol] 16 mg/dL Normal 5-21 [facility] Comment on above: Performed By: #### 2 606718, 2084824, 6378535, 12597432, 0623011, 8862221 #### [facility] [address] [place] [address] CBC w/Indiceson 03-27-2023 Erythrocyte distribution width (RBC) [Ratio] 12.5 % Normal 10.9-14.2 [facility] Comment on above: Performed By: #### 2 467257, 2091142, 0228889, 68834908, 9810623, 6548502 #### [facility] [address] [place] [address] Hematocrit (Bld) [Volume fraction] 41.1 % Normal 37.7-49.0 [facility] Comment on above: Performed By: #### 2 852346, 5480380, 7109423, 47075876, 8954841, 3047632 #### [facility] [address] [place] [address] Hemoglobin (Bld) [Mass/Vol] 13.9 g/dL Normal 13.5-17.5 [facility] Comment on above: Performed By: #### 2 490376, 8713256, 0174601, 80038414, 1658013, 9334203 #### [facility] [address] [place], [place] [address] MCH (RBC) [Entitic mass] 29.9 pg Normal 27.0-34.0 [facility] Comment on above: Performed By: #### 2 607357, 0210625, 9613348, 16878032, 8438094, 8991688 #### [facility] [address] [place], [place] [address] MCHC (RBC) [Mass/Vol] 33.8 g/dL Normal 31.4-36.0 [facility] Comment on above: Performed By: #### 2 645727, 3470284, 2872456, 51545575, 6907511, 3131785 #### [facility] [address] [place], [place] [address] MCV (RBC) [Entitic vol] 88.5 fL Normal 80.0-100.0 [facility] Comment on above: Performed By: #### 2 811113, 9807979, 6895130, 22204199, 4428759, 1411450 #### [facility] [address] [place] [address] Platelet mean volume (Bld) [Entitic vol] 7.6 fL Normal 6.4-10.8 [facility] Comment on above: Performed By: #### 2 635063, 4371121, 3801655, 71019438, 7556895, 5679452 #### [facility] [address] [place] [address] Platelets (Bld) [#/Vol] 168.0 E9/L Normal 150.0-500.0 [facility] Comment on above: Performed By: #### 2 486087, 2727326, 4198688, 74473348, 4071820, 1880289 #### [facility] [address] [place], [place] [address] RBC (Bld) [#/Vol] 4.6 E12/L Normal 4.3-5.9 [facility] Comment on above: Performed By: #### 2 186728, 5399183, 2286416, 58092042, 8113653, 5825272 #### [facility] [address] [place] [address] WBC corrected for nucl RBC Auto (Bld) [#/Vol] 8.8 E9/L Normal 4.0-11.0 [facility] Comment on above: Performed By: #### 2 742849, 8819431, 3148808, 15193700, 0712458, 8199811 #### [facility] [address] [place] [address] Consent for Treatmenton Consent for Treatment [id number] Normal [facility] Creatinineon 03-27-2023 Creatinine [Mass/Vol] 1.0 mg/dL Normal 0.5-1.3 [facility] Comment on above: Performed By: #### 2 761489, 0509559, 5966004, 43605231, 4406496, 3571208 #### [facility] [address] [place] [address] Glucoseon 03-27-2023 Glucose [Mass/Vol] 332 mg/dL High 55-199 [facility] Comment on above: Performed By: #### 2 059056, 7173284, 2924892, 73799612, 7827382, 2215842 #### [facility] [address] [place] [address] Lyteson 03-27-2023 Anion gap [Moles/Vol] 13 mmol/L Normal 6-16 [facility] Comment on above: Performed By: #### 2 681223, 2431472, 2418426, 55105388, 1092035, 4342357 #### [facility] [address] [place] [address] Chloride [Moles/Vol] 97 mmol/L Low 101-111 [facility] Comment on above: Performed By: #### 2 425291, 1011515, 2850809, 02222444, 1479069, 2511527 #### [facility] [address] [place] [address] CO2 [Moles/Vol] 24 mmol/L Normal 21-31 [facility] Comment on above: Performed By: #### 2 926237, 4300992, 1903212, 24681977, 5209119, 9283080 #### [facility] [address] [place] [address] Potassium [Moles/Vol] 4.3 mmol/L Normal 3.5-5.3 [facility] Comment on above: Performed By: #### 2 439351, 5047736, 9184711, 18670363, 0885331, 9033360 #### [facility] [address] [place] [address] Sodium [Moles/Vol] 130 mmol/L Low 135-145 [facility] Comment on above: Performed By: #### 2 620482, 2130646, 7097602, 18172516, 4988873, 3317913 #### [facility] [address] [place] [address] UA With Cult Reflexon 2022 Bilirubin Ql (U) Negative Normal Negative [facility] Comment on above: Performed By: #### 1 [id number] #### [facility] [address] [place] [address] Clarity (U) CLEAR Normal Clear [facility] Comment on above: Performed By: #### 1 1068604 #### [facility] [address] [place] [address] Color (U) YELLOW Normal Yellow [facility] Comment on above: Performed By: #### 1 6478584 #### [facility] [address] [place] [address] Epithelial cells.squamous LM.HPF (Urine sed) [#/Area] 0-2 Normal 0-2 [facility] Comment on above: Performed By: #### 1 1559240 #### [facility] [address] [place] [address] Glucose Test strip (U) [Mass/Vol] 2+ Abnormal Negative [facility] Comment on above: Performed By: #### 1 5934789 #### [facility] [address] [place] [address] Hemoglobin Ql (U) Negative Normal Negative [facility] Comment on above: Performed By: #### 1 6884297 #### [facility] [address] [place] [address] Ketones (U) [Mass/Vol] Negative Normal Negative [facility] Comment on above: Performed By: #### 1 0470559 #### [facility] [address] [place] [address] [place].plasma/Lith ium.RBC (Bld) [Mass ratio] 0-3 Normal 0-3 [facility] Comment on above: Performed By: #### 1 5619912 #### [facility] [address] [place] [address] Nitrite Ql (U) Negative Normal Negative [facility] Comment on above: Performed By: #### 1 [id number] #### [facility] [address] [place] [address] pH (U) 6.0 [pH] Invalid Interpretation Code 5.0-9.0 [facility] Comment on above: Performed By: #### 1 [id number] #### [facility] [address] [place] [address] Protein (U) [Mass/Vol] Negative Normal Negative [facility] Comment on above: Performed By: #### 1 [id number] #### [facility] [address] [place] [address] Specific gravity (U) [Rel density] 1.015 Invalid Interpretation Code 1.005-1.030 [facility] Comment on above: Performed By: #### 1 [id number] #### [facility] [address] [place] [address] Type of Urine collection method Clean Catch Normal [facility] Comment on above: Performed By: #### 1 [id number] #### [facility] [address] [place] [address] Urobilinogen Qn (U) 0.2 {Johanne'U}/dL Normal 0.0-1.0 [facility] Comment on above: Performed By: #### 1 [id number] #### [facility] [address] [place] [address] WBC Auto Ql (U) Negative Normal Negative [facility] Comment on above: Performed By: #### 1 [id number] #### [facility] [address] [place] [address] WBC LM.HPF (Urine sed) [#/Area] 0-5 Normal 0-5 [facility] Comment on above: Performed By: #### 1 [id number] #### [facility] [address] [place] [address] eGFRon 03-27-2023 GFR/1.73 sq M.predicted among non-blacks MDRD (S/P/Bld) [Vol rate/Area] 83 mL/min/1.73 m2 Normal >=59 [facility] Comment on above: Order Comment: Order added by Discern Expert. Result Comment: Macerator Operator helder kidney disease could be indicated at eGFR's of less than 60 mL/min/1.73m2. Kidney failure is indicated at less than 15 mL/min/1.73m2. Performed By: #### 2 [id number], [id number] #### [facility] [address] [place] [address] XR KNEE RT 4V or >on 023 XR KNEE RT 4V or > EXAM: XR KNEE RT 4V or > HISTORY: Pain COMPARISON: None. TECHNIQUE: AP, PA, lateral, repeat lateral radiographs of the knee labeled right FINDINGS: No acute fracture or dislocation. Tricompartmental osteophytes. Joint space narrowing of the medial tibiofemoral compartment. Normal mineralization. The soft tissues are normal. IMPRESSION: 1. No acute osseous abnormality. 2. Moderate tricompartmental right knee osteoarthritis. Electronically authenticated by: ANSELMO PIERRE Date: 2023-02-15 16:49 Normal [facility] XR LSPINE 2_3 VIEWSon 2022 XR LSPINE 2_3 VIEWS EXAM: XR LSPINE 2_3 VIEWS HISTORY: Chronic lumbar pain COMPARISON: 07/22/2021 FINDINGS: There are multilevel degenerative disc and endplate changes with disc space narrowing, endplate sclerosis and osteophyte formation. There is no evidence of an acute fracture or subluxation. The paravertebral soft tissues are unremarkable. There is straightening of the normal lumbar lordosis. Significant endplate changes are again observed at L1-L2 IMPRESSION: Degenerative disc disease. Electronically authenticated by: CASSY MARTIN Date: 2023-01-30 19:57 Normal [facility] XR TIB_FIB LT 2Von XR TIB_FIB LT 2V EXAM: XR TIB_FIB LT 2V HISTORY: Pain COMPARISON: 06/19/2022 FINDINGS: There is a total left knee replacement, unchanged. There are moderate degenerative changes of the ankle joint with joint space narrowing, subchondral sclerosis and osteophyte formation. There is no evidence of an acute fracture, subluxation or bony destruction. IMPRESSION: Moderate degenerative joint disease. Electronically authenticated by: CASSY MARTIN Date: 2023-01-30 19:56 Normal [facility] CNOVon 01-27-2023 CNOV Office Visit (OTOLMN ) JOIE LU JR ([id number]) 1955 M Date Time Provider Department 01/27/23 11:20 AM PARTHA JACKSON OTOLMN During your visit today, we recorded the following information about you: Judy Pacheco Ma 01/27/2023 11:19 AM Signed Tobacco Use: .5 packs/day, for 1 years. Quit 02/15/1982. Types: Cigarettes Was smoking cessation packet given? N/A - Patient is a non-smoker or quit >1 year ago. Was a referral initiated?N/A Patient is a non-smoker Partha Jackson PA-C 01/27/2023 7:05 PM Signed History of Present Illness Mr. 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 The following information above was copied, reviewed and is still up to date. Last seen 08/20/2022. Since last seen, Three days ago the right ear started to flare up and it feels full. Also having some pain. Feels like he is swallowing a golf ball on the right side of his throat. Started having drainage too. Reports a clear drainage. Feels like there is water in the ears. Hearing Loss: Feels like it is stable, no worsening hearing. Tinnitus: denies Dizziness/Imbalance: denies Facial Numbness, Weakness or Tingling: denies ALLERGIES Allergen Reactions Morphine Rash, Itching Bee Sting Swelling, Anaphylaxis Penicillins Itching Current Outpatient Medications on File Prior to Visit Medication Sig azelastine (ASTELIN, ASTEPRO) 0.1% nasal spray 1 spray in each nostril twice daily for 30 days atorvastatin (LIPITOR) 10 mg tablet Take 10 mg by mouth once daily. busPIRone (BUSPAR) 15 mg tablet Take 15 mg by mouth three times daily. gabapentin (NEURONTIN) 300 mg capsule Take 300 mg by mouth three times daily. venlafaxine ER (EFFEXOR XR) 150 mg 24 hr capsule Take 150 mg by mouth once daily. prazosin (MINIPRESS) 1 mg cap Take 1 mg by mouth twice daily. cloNIDine HCl (CATAPRES) 0.1 mg tablet Hydrochlorothiazide 12.5 mg capsule hydrochlorothiazide 12.5 mg capsule meloxicam (MOBIC) 15 mg tablet Take 1 tablet by mouth once daily. glimepiride (AMARYL) 4 mg tablet Take 4 mg by mouth daily with breakfast. lisinopril (ZESTRIL, PRINIVIL) 10 mg tablet Take 10 mg by mouth once daily. vortioxetine (TRINTELLIX) 20 mg tablet Take by mouth. tiotropium bromide (SPIRIVA RESPIMAT) 2.5 mcg/actuation inhaler Inhale as instructed. fluticasone-vilanterol (BREO ELLIPTA) 100-25 mcg/dose inhaler Inhale 1 Inhalation as instructed once daily. Levothyroxine 112 mcg cap Take by mouth. metFORMIN (GLUCOPHAGE) 1,000 mg tablet Take 1 tablet by mouth twice daily. multivitamin tablet Take 1 tablet by mouth once daily. aspirin 81 mg chewable tablet Take 1 tablet by mouth twice daily. amLODIPine (NORVASC) 10 mg tablet Take 1 tablet by mouth once daily. clonazePAM (KLONOPIN) 1 mg tablet Take 1 tablet by mouth three times daily for 90 days. oxyCODONE-acetaminophe n (PERCOCET) 5-325 mg tablet Take 1 tablet by mouth every 8 hours as needed for pain. (Patient not taking: No sig reported) ofloxacin (FLOXIN) 0.3 % otic solution Use 3 Drops in the ears twice daily. (Patient not taking: No sig reported) loratadine (CLARITIN) 10 mg tablet Take 10 mg by mouth once daily. ofloxacin (OCUFLOX) 0.3 % ophthalmic solution 3 drops to right ear twice daily, use concurrently with Dexamethasone (Patient not taking: No sig reported) zolpidem (AMBIEN) 10 mg tab Take by mouth at bedtime as needed. (Patient not taking: No sig reported) No current facility-administered medications on file prior to visit. Objective: There were no vitals taken for this visit. Appearance: Non-syndromic, cooperative and calm Communication: Voice has adequate volume; there is no stridor Head/Face: head and facial contours are symmetric Facial nerve 1/6 bilateral Skin: no skin lesions or scarring on face Ears: AD External auditory canal is patent. TM is thick with possible effusion anteriorly. No infection noted. Removed impacted cerumen. External auditory canal is patent. TM is clear and intact. 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 (more content not included)... Normal [facility] CBC AUTO DIFFon 12-22-2022 BASO # 0.1 103/ul Normal 0.0-0.1 [facility] Comment on above: Performed By: #### C BC ####[facility] [address] [place], [place] [address]DrRenee Zhang Basophils/100 WBC (Bld) 0.6 % Normal 0.2-2.0 [facility] Comment on above: Performed By: #### C BC ####[facility] [address] [place], [place] [address]DrRenee Zhang EO # 0.6 103/ul Normal 0.0-0.7 [facility] Comment on above: Performed By: #### C BC ####[facility] [address] [place], [place] [address]DrRenee Zhang Eosinophils/100 WBC (Bld) 7.4 % Critically high 0.9-7.0 [facility] Comment on above: Performed By: #### C BC ####[facility] [address] [place], [place] [address]DrRenee Zhang Erythrocyte distribution width (RBC) [Ratio] 12.4 % Normal 11.0-15.0 [facility] Comment on above: Performed By: #### C BC ####[facility] [address] [place], [place] [address]DrRenee Zhang Hematocrit (Bld) [Volume fraction] 44.2 % Normal 42.0-54.0 [facility] Comment on above: Performed By: #### C BC ####[facility] [address] [place], [place] [address]Dr. Heidi Zhang Hemoglobin (Bld) [Mass/Vol] 15.4 g/dL Normal 14.0-18.0 [facility] Comment on above: Performed By: #### C BC ####[facility] [address] [place] [address]Dr. Heidi Zhang IG # 0.04 10e3/ul Critically high 0.00-0.03 [facility] Comment on above: Performed By: #### C BC ####[facility] [address] [place], [place] [address]Dr. Heidi Zhang IG % 0.5 % Normal 0.0-0.5 [facility] Comment on above: Performed By: #### C BC ####[facility] [address] [place], [place] [address]Dr. Heidi Zhang LYMPH # 1.4 103/ul Normal 1.2-3.8 [facility] Comment on above: Performed By: #### C BC ####[facility] [address] [place], [place] [address]Dr. Heidi Zhang Lymphocytes/100 WBC (Bld) 18.4 % Critically low 20.5-60.0 [facility] Comment on above: Performed By: #### C BC ####[facility] [address] [place], [place] [address]Dr. Heidi Zhang MANUAL DIFF REQ NO Normal [facility] Comment on above: Performed By: #### C BC ####[facility] [address] [place], [place] [address]Dr. Heidi Zhang MCH (RBC) [Entitic mass] 31.1 pg Normal 25.9-34.0 [facility] Comment on above: Performed By: #### C BC ####[facility] [address] [place], [place] [address]Dr. Heidi Zhang MCHC (RBC) [Mass/Vol] 34.8 g/dL Normal 29.9-35.2 [facility] Comment on above: Performed By: #### C BC ####[facility] [address] [place], [place] [address]Dr. Heidi Zhang MCV (RBC) [Entitic vol] 89.3 fL Normal 80.0-94.0 [facility] Comment on above: Performed By: #### C BC ####[facility] [address] [place] [address]DrRenee Zhang MONO # 0.6 103/ul Normal 0.3-0.8 [facility] Comment on above: Performed By: #### C BC ####[facility] [address] [place], [place] [address]DrRenee Heidi Zhang Monocytes/100 WBC (Bld) 7.1 % Normal 1.7-12.0 [facility] Comment on above: Performed By: #### C BC ####[facility] [address] [place], [place] [address]DrRenee Heidi Zhang NEUT # 5.1 103/ul Normal 1.4-6.5 [facility] Comment on above: Performed By: #### C BC ####[facility] [address] [place], [place] [address]Dr. Heidi Zhang Neutrophils/100 WBC (Bld) 66.0 % Normal 43.0-75.0 [facility] Comment on above: Performed By: #### C BC ####[facility] [address] [place], [place] [address]DrRenee Heidi Zhang Platelet mean volume (Bld) [Entitic vol] 9.0 fL Critically low 9.5-13.5 [facility] Comment on above: Performed By: #### C BC ####[facility] [address] [place], [place] [address]DrRenee Heidi Vicente PLT 133 103/ul Critically low 150-450 [facility] Comment on above: Performed By: #### C BC ####[facility] [address] [place] [id number] Heidi Vicente RBC 4.95 106/ul Normal 4.70-6.10 [facility] Comment on above: Performed By: #### C BC ####[facility] [address] [place], [place] [address]Dr. Heidi Zhang WBC 7.7 103/ul Normal 4.0-11.0 [facility] Comment on above: Performed By: #### C BC ####[facility] [address] [place], [place] [address]Dr. Heidi Zhang GLYCOHEMOGLOBIN A1Con 2022 ADA RECOMMENDATION SEE BELOW Normal [facility] Comment on above: Result Comment: ADA RECOMMENDED LIMIT 4.0 - 6.0 ADA THERAPEUTIC TARGET < 7.0 ACTION SUGGESTED > 7.0 Performed By: #### A 1C #### [facility] [address] [place], [place] [address] Dr. Heidi Zhang Glucose [Mass/Vol] 197 mg/dL Normal [facility] Comment on above: Performed By: #### A 1C #### [facility] [address] [place] [address] [address] Heidi Zhang HbA1c (Bld) [Mass fraction] 8.5 % Critically high 4.5-6.2 [facility] Comment on above: Performed By: #### A 1C #### [facility] [address] [place] [id number] Heidi Zhang LIPID PROFILEon 12-22-2022 CHOL-HDL RATIO NORM SEE BELOW Normal [facility] Comment on above: Result Comment: 3.3 - 4.4 LOW RISK 4.4 - 7.1 AVERAGE RISK 7.1 - 11.0 MODERATE RISK >11.0 HIGH RISK Performed By: #### L IPID, CMP ####[facility] [address] [place] [id number]. Heidi Zhang Cholesterol [Mass/Vol] 152 mg/dL Normal <=200 [facility] Comment on above: Performed By: #### L IPID, CMP ####[facility] [address] [place] [address]Dr. Heidi Zhang Cholesterol in HDL [Mass/Vol] 43 mg/dL Normal 40-60 [facility] Comment on above: Performed By: #### L IPID, CMP ####[facility] [address] [place] [address]Dr. Heidi Zhang Cholesterol in LDL [Mass/Vol] 75.4 mg/dL Normal [facility] Comment on above: Performed By: #### L IPID, CMP ####[facility] [address] [place] [address]Dr. Heidi Zhang Cholesterol.total/C holesterol in HDL [Mass ratio] 3.5 {ratio} Normal [facility] Comment on above: Performed By: #### L IPID, CMP ####[facility] [address] [place] [address]DrRenee Zhang HDL NORMAL > or = 60 mg/dl - LO W CARDIOVASCULAR RISK <40 mg/dl - HIGH CARDIOVASCULAR RISK Normal [facility] Comment on above: Performed By: #### L IPID, CMP ####[facility] [address] [place] [address]Dr. Heidi Zhang LDL CALC NORMAL SEE BELOW Normal [facility] Comment on above: Result Comment: <100 mg/dl OPTIMAL 100 - 129 mg/dl NEAR OR ABOVE OPTIMAL 130 - 159 mg/dl BORDERLINE HIGH 160 - 189 mg/dl HIGH >190 mg/dl VERY HIGH Performed By: #### L IPID, CMP ####[facility] [address] [place] [address]Dr. Heidi Zhang Triglyceride [Mass/Vol] 168 mg/dL Critically high <=150 [facility] Comment on above: Performed By: #### L IPID, CMP ####[facility] [address] [place] [address]Dr. Heidi Zhang VLDL CALC 33.6 mg/dL Normal [facility] Comment on above: Performed By: #### L IPID, CMP ####[facility] [address] [place] [address]Dr. Heidi Zhang PROF 14(COMP METB)on 023 Albumin [Mass/Vol] 4.0 g/dL Normal 3.4-5.0 [facility] Comment on above: Performed By: #### L IPID, CMP #### [facility] [address] [place], [place] [address] Dr. Heidi Zhang Albumin/Globulin [Mass ratio] 1.4 {ratio} Normal [facility] Comment on above: Performed By: #### L IPID, CMP #### [facility] [address] [place] [address] [address] Heidi Zhang ALP [Catalytic activity/Vol] 75 U/L Normal 46-116 [facility] Comment on above: Performed By: #### L IPID, CMP #### [facility] [address] [place] [address] [address] Heidi Zhang ALT [Catalytic activity/Vol] 29 U/L Normal 16-63 [facility] Comment on above: Performed By: #### L IPID, CMP #### [facility] [address] [place] [address] [address] Heidi Zhang Anion gap [Moles/Vol] 12.1 mmol/L Normal [facility] Comment on above: Performed By: #### L IPID, CMP #### [facility] [address] [place] [address] [address] Heidi Zhang AST [Catalytic activity/Vol] 28 U/L Normal 15-37 [facility] Comment on above: Performed By: #### L IPID, CMP #### [facility] [address] [place] [address] [address] Heidi Zhang Bilirubin [Mass/Vol] 0.4 mg/dL Normal 0.2-1.0 [facility] Comment on above: Performed By: #### L IPID, CMP #### [facility] [address] [place] [address] [address] Heidi Zhang Calcium [Mass/Vol] 9.4 mg/dL Normal 8.5-10.1 [facility] Comment on above: Performed By: #### L IPID, CMP #### [facility] [address] [place] [address] [address] Heidi Zhang Chloride [Moles/Vol] 99 mmol/L Normal 98-107 [facility] Comment on above: Performed By: #### L IPID, CMP #### [facility] [address] [place] [address] [address] Heidi Zhang CO2 [Moles/Vol] 28.1 mmol/L Normal 21.0-32.0 [facility] Comment on above: Performed By: #### L IPID, CMP #### [facility] [address] [place] [address] [address] Heidi Zhang Creatinine [Mass/Vol] 1.09 mg/dL Normal 0.70-1.30 [facility] Comment on above: Performed By: #### L IPID, CMP #### [facility] [address] [place] [address] [address] Heidi Zhang EGFR-AF DUTCH >60 Normal >=60 [facility] Comment on above: Performed By: #### L IPID, CMP #### [facility] [address] [place] [address] [address] Heidi Zhang EGFR-NON AF DUTCH >60 Normal >=60 [facility] Comment on above: Performed By: #### L IPID, CMP #### [facility] [address] [place] [address] [address] Heidi Zhang Globulin (S) [Mass/Vol] 2.9 g/dL Normal [facility] Comment on above: Performed By: #### L IPID, CMP #### [facility] [address] [place] [address] [address] Heidi Zhang Glucose [Mass/Vol] 428 mg/dL Critically high 74-106 [facility] Comment on above: Performed By: #### L IPID, CMP #### [facility] [address] [place] [address] [address] Heidi Zhang Potassium [Moles/Vol] 5.2 mmol/L Critically high 3.5-5.1 [facility] Comment on above: Performed By: #### L IPID, CMP #### [facility] [address] [place] [address] [address] Heidi Zhang Protein [Mass/Vol] 6.9 g/dL Normal 6.4-8.2 [facility] Comment on above: Performed By: #### L IPID, CMP #### [facility] [address] [place] [address] [address] Heidi Zhang Sodium [Moles/Vol] 134 mmol/L Critically low 136-145 [facility] Comment on above: Performed By: #### L IPID, CMP #### [facility] [address] [place] [id number] Heidi Zhang Urea nitrogen [Mass/Vol] 11.0 mg/dL Normal 7.0-18.0 [facility] Comment on above: Performed By: #### L IPID, CMP #### [facility] [address] [place] [id number] Heidi Zhang Urea nitrogen/Creatinine [Mass ratio] 10.1 mg/mg Normal [facility] Comment on above: Performed By: #### L IPID, CMP #### [facility] [address] [place] [id number] Heidi Schofield 11-06-2022 CNPN Telephone (OTOLLN) JOIE LU JR ([id number]) 1955 M Date Time Provider Department 11/06/22 SAIMA MACDONALD During your visit today, we recorded the following information about you: Aby Combs RN 11/06/2022 2:57 PM Signed Patient calling in with update since appt on 10/31/22. Calling in today to report bilateral ear pain, left side worse than the other, sinus pain and pressure and severe headache. He is asking for an antibiotic to be sent to his local pharmacy. States he knows this is a sinus infection as he gets them frequently. Please advise. DDM in [facility]- [phone] Gemini Snyder MA 11/07/2022 9:40 AM Signed Left message on machine to inform patient an antibiotic was sent in. Allergies As of Date: 11/06/2022 Noted Allergy Reaction MORPHINE 05/25/2014 2 - Rash 9 - Itching BEE STING 08/18/2018 7 - Swelling 10 - Anaphylaxis PENICILLINS 01/16/2015 9 - Itching Date Reviewed: 10/31/2022 Reviewed by: Noy Ibarra MA - Fully Assessed Reason for Visit: Patient Question [9127] Orders [681] Prescriptions as of 11/10/2022 - doxycycline monohydrate 100 mg tablet Take 1 tablet by mouth twice daily for 10 days. - azelastine (ASTELIN, ASTEPRO) 0.1% nasal spray 1 spray in each nostril twice daily for 30 days - clonazePAM (KLONOPIN) 1 mg tablet Take 1 tablet by mouth three times daily for 90 days. - oxyCODONE-acetaminophe n (PERCOCET) 5-325 mg tablet Take 1 tablet by mouth every 8 hours as needed for pain. - ofloxacin (FLOXIN) 0.3 % otic solution Use 3 Drops in the ears twice daily. - atorvastatin (LIPITOR) 10 mg tablet Take 10 mg by mouth once daily. - busPIRone (BUSPAR) 15 mg tablet Take 15 mg by mouth three times daily. - gabapentin (NEURONTIN) 300 mg capsule Take 300 mg by mouth three times daily. - venlafaxine ER (EFFEXOR XR) 150 mg 24 hr capsule Take 150 mg by mouth once daily. - loratadine (CLARITIN) 10 mg tablet Take 10 mg by mouth once daily. - prazosin (MINIPRESS) 1 mg cap Take 1 mg by mouth twice daily. - ofloxacin (OCUFLOX) 0.3 % ophthalmic solution 3 drops to right ear twice daily, use concurrently with Dexamethasone - cloNIDine HCl (CATAPRES) 0.1 mg tablet - Hydrochlorothiazide 12.5 mg capsule hydrochlorothiazide 12.5 mg capsule - meloxicam (MOBIC) 15 mg tablet Take 1 tablet by mouth once daily. - glimepiride (AMARYL) 4 mg tablet Take 4 mg by mouth daily with breakfast. - lisinopril (ZESTRIL, PRINIVIL) 10 mg tablet Take 10 mg by mouth once daily. - zolpidem (AMBIEN) 10 mg tab Take by mouth at bedtime as needed. - vortioxetine (TRINTELLIX) 20 mg tablet Take by mouth. - tiotropium bromide (SPIRIVA RESPIMAT) 2.5 mcg/actuation inhaler Inhale as instructed. - fluticasone-vilanterol (BREO ELLIPTA) 100-25 mcg/dose inhaler Inhale 1 Inhalation as instructed once daily. - Levothyroxine 112 mcg cap Take by mouth. - metFORMIN (GLUCOPHAGE) 1,000 mg tablet Take 1 tablet by mouth twice daily. - multivitamin tablet Take 1 tablet by mouth once daily. - aspirin 81 mg chewable tablet Take 1 tablet by mouth twice daily. - amLODIPine (NORVASC) 10 mg tablet Take 1 tablet by mouth once daily. Problem List As Of Date 11/06/2022 Noted Resolved Pain in joint, lower leg [M25.569] 09/03/2006 10/24/2019 Plantar fascial fibromatosis [M72.2] 12/11/2006 06/22/2018 Sprain of ankle, unspecified site [S93.409A] 12/11/2006 10/24/2019 Osteoarthrosis, unspecified whether generalized*02/08/2007 10/24/2019 OA (OSTEOARTHRITIS) LOCALIZED, PRIMARY( Lower L*07/20/2007 10/24/2019 Wound infection [T14.8XXA, L08.9] 02/13/2012 10/24/2019 Septic arthritis of knee, left [M00.9] 02/23/2012 Abscess of back [L02.212] 07/12/2012 12/01/2012 Type 2 diabetes mellitus with diabetic neuropat* Hypothyroidism [E03.9] Hyperlipidemia [E78.5] HTN (hypertension) [I10] Gout [M10.9] 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] 11/10/2012 Pneumonia [J18.9] 12/01/2012 Elevated LFTs [R79.89] 12/01/2012 Pulmonary nodule [R91.1] 12/01/2012 H/O Clostridium difficile infection [Z86.19] 12/01/2012 DVT prophylaxis [Z79.899] 12/01/2012 Metatarsalgia [M77.40] 01/23/2014 Infection and inflammatory reaction due to unsp*05/08/2014 Left wrist pain [M25.532] 10/09/2014 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] 10/09/2014 Carpal tunnel syndrome [G56.00] 10/09/2014 Diabetic neuropathy, painful (HCC) [E11.40] 01/29/2018 Arthralgia of right lower leg [M25.561] 01/29/2018 History of transmetatarsal amputation of right *01/29/2018 Mixed conductive and sensorineural hearing loss*04/07/2018 Sensorineural hearing loss (SNHL) of left ear w*04/07/2018 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 Normal [facility] CNOVon 10-31-2022 CNOV Office Visit (OTOLLN ) JOIE LU JR ([id number]) 1955 M Date Time Provider Department 10/31/22 10:15 AM SAIMA MACDONALD During your visit today, we recorded the following information about you: Temperature 98.2 degrees Saima Macdonald MD 10/31/2022 5:36 PM Signed SECTION OF RHINOLOGY, SINUS AND SKULL BASE SURGERY [facility] [place] NOTE HPI: Patient is a 67 year old male presenting for evaluation. He reports monthly sinus and ear infection. He has to put earplugs in his ear when taking a shower because when water gets in the ear, the infection starts. He c/o ear pressure He c/o congestion, Green mucous when blowing nose, pressure, and facial pressure. He has not seen an oral and maxillofacial surgery. Sinus issues has been going on since 2018. He uses Flonase every morning. He has no done irrigation PAST MEDICAL HISTORY Diagnosis Date Depression DM type 2 (diabetes mellitus, type 2) (HCC) Fracture Gout H/O Clostridium difficile infection 10/2012 History of cholecystectomy HTN (hypertension) Hyperlipidemia Hypothyroidism Osteomyelitis of knee region (HCC) left, s/p knee replacement Pain chronic PAST SURGICAL HISTORY Procedure Laterality Date ARTHROSCOPY KNEE DIAGNOSTIC W/WO SYNOVIAL BX SPX Arthroscopy, knee, arthroscopy and meniscectomy. CHOLECYSTECTOMY HX 1999 COLONOSCOPY HAND SURGERY HX Left LAMINECTOMY W/O FFD 1/2 VERT SEG LUMBAR 1986 Laminectomy, lumbar PAST SURGICAL HISTORY OF 02/16/2012 lumbar wound washout; hardware removal, Reopen of lumbar wound with debridement culture and removal of posterior segmental lumbar instrumentation and bone growth stimulators PAST SURGICAL HISTORY OF 02/23/2012 left knee I and D, Synovectomy PAST SURGICAL HISTORY OF 2011 Irrigation and debridement, Synovectomy, Preparation for knee replacement removing necrotic bone and Placement of temporary knee replacement,, Quadriceps plasty PAST SURGICAL HISTORY OF 09/06/2012 Revision total knee arthroplasty / Infected left knee, status post placement of antibiotic spacer PAST SURGICAL HISTORY OF 08/30/2006 Left knee arthroscopy with #1 chondroplasty, medial femoral condyle, patella, and trochlear groove PAST SURGICAL HISTORY OF 08/06/2006 Diagnoscopy, left knee PAST SURGICAL HISTORY OF 06/05/2014 Left TKA revision PAST SURGICAL HISTORY OF 08/2012 Left TKA PAST SURGICAL HISTORY OF 10/2019 TORP prosthesis of right FAMILY HISTORY Problem Relation Age of Onset other (suicide) Father Breast Cancer Mother brast Ca - age 66 other (Stomach Cancer) Mother Heart Brother Heart Attack - age 45 Anesthesia Problems No Family History Social History Tobacco Use Smoking status: Former Packs/day: 0.50 Years: 1.00 Pack years: 0.50 Types: Cigarettes Quit date: 02/15/1982 Years since quittin.7 Smokeless tobacco: Never Vaping Use Vaping Use: Never used Substance Use Topics Alcohol use: Not Currently Drug use: Never Comment: declines tx for drug/alcohol abuse in the past Current Outpatient Medications Medication Sig Dispense Refill clonazePAM (KLONOPIN) 1 mg tablet Take 1 tablet by mouth three times daily for 90 days. 270 tablet 1 oxyCODONE-acetaminophe n (PERCOCET) 5-325 mg tablet Take 1 tablet by mouth every 8 hours as needed for pain. (Patient not taking: No sig reported) 3 tablet 0 ofloxacin (FLOXIN) 0.3 % otic solution Use 3 Drops in the ears twice daily. (Patient not taking: No sig reported) 10 mL 3 atorvastatin (LIPITOR) 10 mg tablet Take 10 mg by mouth once daily. busPIRone (BUSPAR) 15 mg tablet Take 15 mg by mouth three times daily. gabapentin (NEURONTIN) 300 mg capsule Take 300 mg by mouth three times daily. venlafaxine ER (EFFEXOR XR) 150 mg 24 hr capsule Take 150 mg by mouth once daily. loratadine (CLARITIN) 10 mg tablet Take 10 mg by mouth once daily. prazosin (MINIPRESS) 1 mg cap Take 1 mg by mouth twice daily. ofloxacin (OCUFLOX) 0.3 % ophthalmic solution 3 drops to right ear twice daily, use concurrently with Dexamethasone (Patient not taking: No sig reported) 1 Bottle 3 cloNIDine HCl (CATAPRES) 0.1 mg tablet Hydrochlorothiazide 12.5 mg capsule hydrochlorothiazide 12.5 mg capsule meloxicam (MOBIC) 15 mg tablet Take 1 tablet by mouth once daily. 30 tablet 0 glimepiride (AMARYL) 4 mg tablet Take 4 mg by mouth daily with breakfast. lisinopril (ZESTRIL, PRINIVIL) 10 mg tablet Take 10 mg by mouth once daily. zolpidem (AMBIEN) 10 mg tab Take by mouth at bedtime as needed. (Patient not taking: No sig reported) vortioxetine (TRINTELLIX) 20 mg tablet Take by mouth. tiotropium bromide (SPIRIVA RESPIMAT) 2.5 mcg/actuation inhaler Inhale as instructed. fluticasone-vilanterol (BREO ELLIPTA) 100-25 mcg/dose inhaler Inhale 1 Inhalation as instructed once daily. Levothyro (more content not included)... Normal [facility] XR CHEST 2 Von 10-13-2022 XR CHEST 2 V EXAMINATION: XR CHES T 2 V HISTORY: Disorder of respiratory system COMPARISON: XR chest 08/29/2020 FINDINGS: LUNGS: Chronic elevated right hemidiaphragm. No appreciable infiltrates or mass. VASCULATURE: No increased pulmonary vasculature. PLEURA: No pneumothorax, effusion, or pleural thickening. CARDIAC: No cardiomegaly or cardiac silhouette abnormality. MEDIASTINUM: No visible mass or adenopathy. BONES: No fracture or visible bone lesion. Multilevel mild degenerative changes. OTHER: Negative. IMPRESSION: 1. No acute cardiopulmonary process. Electronically authenticated by: JONAH GARCIA Date: 2022-10-13 16:09 [facility] (OTOLMN ) JOIE LU JR ([id number]) 1955 M Date Time Provider Department 08/19/22 2:30 PM PARTHA JACKSON OTOLLD During your visit today, we recorded the following information about you: Caitlin Mosley MA 08/19/2022 2:22 PM Signed Tobacco Use: .5 packs/day, for 1 years. Quit 02/15/1982. Types: Cigarettes Was smoking cessation packet given? N/A - Patient is a non-smoker or quit >1 year ago. Was a referral initiated?N/A Patient is a non-smoker Partha Jackson PA-C 09/17/2022 7:50 AM Signed History of Present Illness Mr. JOIE LU JR is a 67 year old male with a history of conductive hearing loss with ossicular chain reconstruction and TORP prothesis on the right completed 10/2019, with revision on 07/15/21. 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 The following information above was copied, reviewed and is still up to date. Last seen by Dr. Gifty Couch on 02/27/2022. Since last seen, Reports he gets a sinus infection every month and was told to ask about it when he comes in. When asked, he reports that his symptoms include ear pain, frontal pressure and drainage that is green and other times it is not. Denies unilateral watery rhinorrhea. He does use daily nasal spray and Claritin and has for the last 6 months or so. He is always treated with oral antibiotics. Otorrhea: Right ear that is draining. It is a clear color. It occurs with a shower and if he lays on it, water will drain out of it. Hearing Loss: Has been stable. Knows he needs a hearing aid, but has not got it yet. Otalgia: denies Ear Pressure/Fullness: denies Tinnitus: denies Dizziness/Imbalance: denies Facial Numbness, Weakness or Tingling: denies ALLERGIES Allergen Reactions Morphine Rash, Itching Bee Sting Swelling, Anaphylaxis Penicillins Itching Current Outpatient Medications on File Prior to Visit Medication Sig atorvastatin (LIPITOR) 10 mg tablet Take 10 mg by mouth once daily. busPIRone (BUSPAR) 15 mg tablet Take 15 mg by mouth three times daily. gabapentin (NEURONTIN) 300 mg capsule Take 300 mg by mouth three times daily. venlafaxine ER (EFFEXOR XR) 150 mg 24 hr capsule Take 150 mg by mouth once daily. loratadine (CLARITIN) 10 mg tablet Take 10 mg by mouth once daily. prazosin (MINIPRESS) 1 mg cap Take 1 mg by mouth twice daily. cloNIDine HCl (CATAPRES) 0.1 mg tablet Hydrochlorothiazide 12.5 mg capsule hydrochlorothiazide 12.5 mg capsule meloxicam (MOBIC) 15 mg tablet Take 1 tablet by mouth once daily. glimepiride (AMARYL) 4 mg tablet Take 4 mg by mouth daily with breakfast. lisinopril (ZESTRIL, PRINIVIL) 10 mg tablet Take 10 mg by mouth once daily. vortioxetine (TRINTELLIX) 20 mg tablet Take by mouth. tiotropium bromide (SPIRIVA RESPIMAT) 2.5 mcg/actuation inhaler Inhale as instructed. fluticasone-vilanterol (BREO ELLIPTA) 100-25 mcg/dose inhaler Inhale 1 Inhalation as instructed once daily. Levothyroxine 112 mcg cap Take by mouth. metFORMIN (GLUCOPHAGE) 1,000 mg tablet Take 1 tablet by mouth twice daily. multivitamin tablet Take 1 tablet by mouth once daily. amLODIPine (NORVASC) 10 mg tablet Take 1 tablet by mouth once daily. oxyCODONE-acetaminophe n (PERCOCET) 5-325 mg tablet Take 1 tablet by mouth every 8 hours as needed for pain. (Patient not taking: No sig reported) clonazePAM (KLONOPIN) 1 mg tablet Take 1 tablet by mouth three times daily for 90 days. ofloxacin (FLOXIN) 0.3 % otic solution Use 3 Drops in the ears twice daily. (Patient not taking: No sig reported) ofloxacin (OCUFLOX) 0.3 % ophthalmic solution 3 drops to right ear twice daily, use concurrently with Dexamethasone (Patient not taking: No sig reported) zolpidem (AMBIEN) 10 mg tab Take by mouth at bedtime as needed. (Patient not taking: No sig reported) aspirin 81 mg chewable tablet Take 1 tablet by mouth twice daily. (Patient not taking: Reported on 08/19/2022) No current facility-administered medications on file prior to visit. Objective: There were no vitals taken for this visit. Appearance: Non-syndromic, cooperative and calm Communication: Voice has adequate volume; there is no stridor Head/Face: head and facial contours are symmetric Facial nerve 1/6 bilateral Skin: no skin lesions or scarring on face Ears: AD Canal is dry. TM is intact. Canal is dry. TM is intact. 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 Normal [facility] PROF CHEM 8 (BAS METB)on Anion gap [Moles/Vol] 12.5 mmol/L Normal [facility] Comment on above: Performed By: #### B MP #### [facility] [address] [place], [place] [address] Dr. Heidi Zhang Calcium [Mass/Vol] 9.1 mg/dL Normal 8.5-10.1 [facility] Comment on above: Performed By: #### B MP #### [facility] [address] [place], [place] [address] Dr. Heidi Zhang Chloride [Moles/Vol] 99 mmol/L Normal 98-107 [facility] Comment on above: Performed By: #### B MP #### [facility] [address] [place] [address] [address] Heidi Zhang CO2 [Moles/Vol] 26.1 mmol/L Normal 21.0-32.0 [facility] Comment on above: Performed By: #### B MP #### [facility] [address] [place] [address] Dr. Heidi Zhang Creatinine [Mass/Vol] 1.00 mg/dL Normal 0.70-1.30 [facility] Comment on above: Performed By: #### B MP #### [facility] [address] [place] [address] Dr. Heidi Zhang EGFR-AF DUTCH >60 Normal >=60 [facility] Comment on above: Performed By: #### B MP #### [facility] [address] [place] [address] Dr. Heidi Zhang EGFR-NON AF DUTCH >60 Normal >=60 [facility] Comment on above: Performed By: #### B MP #### [facility] [address] [place] [address] [address] Heidi Zhang Glucose [Mass/Vol] 285 mg/dL Critically high 74-106 T [facility] Comment on above: Performed By: #### B MP #### [facility] [address] [place] [address] Dr. Heidi Zhang Potassium [Moles/Vol] 4.6 mmol/L Normal 3.5-5.1 [facility] Comment on above: Performed By: #### B MP #### [facility] [address] [place] [address] [address] Heidi Zhang Sodium [Moles/Vol] 133 mmol/L Critically low 136-145 Th [facility] Comment on above: Performed By: #### B MP #### [facility] [address] [place] [address] Dr. Heidi Zhang Urea nitrogen [Mass/Vol] 16.0 mg/dL Normal 7.0-18.0 [facility] Comment on above: Performed By: #### B MP #### [facility] [address] [place] [address] Dr. Heidi Zhang Urea nitrogen/Creatinine [Mass ratio] 16.0 mg/mg Normal [facility] Comment on above: Performed By: #### B MP #### [facility] [address] [place] [address] [address] Heidi Zhang CBC AUTO DIFFon 08-11-2022 BASO # 0.1 103/ul Normal 0.0-0.1 [facility] Comment on above: Performed By: #### C BC ####[facility] [address] [place] [address]DrRenee Zhang Basophils/100 WBC (Bld) 0.6 % Normal 0.2-2.0 [facility] Comment on above: Performed By: #### C BC ####[facility] [address] [place], [place] [address]Dr. Heidi Zhang EO # 0.4 103/ul Normal 0.0-0.7 [facility] Comment on above: Performed By: #### C BC ####[facility] [address] [place], [place] [address]Dr. Heidi Zhang Eosinophils/100 WBC (Bld) 4.4 % Normal 0.9-7.0 [facility] Comment on above: Performed By: #### C BC ####[facility] [address] [place], [place] [address]Dr. Heidi Zhang Erythrocyte distribution width (RBC) [Ratio] 11.9 % Normal 11.0-15.0 [facility] Comment on above: Performed By: #### C BC ####[facility] [address] [place], [place] [address]DrRenee Zhang Hematocrit (Bld) [Volume fraction] 44.8 % Normal 42.0-54.0 [facility] Comment on above: Performed By: #### C BC ####[facility] [address] [place], [place] [address]DrRenee Zhang Hemoglobin (Bld) [Mass/Vol] 15.2 g/dL Normal 14.0-18.0 [facility] Comment on above: Performed By: #### C BC ####[facility] [address] [place], [place] [address]Dr. Heidi Zhang IG # 0.04 10e3/ul Critically high 0.00-0.03 [facility] Comment on above: Performed By: #### C BC ####[facility] [address] [place] [address]Dr. Heidi Zhang IG % 0.4 % Normal 0.0-0.5 [facility] Comment on above: Performed By: #### C BC ####[facility] [address] [place], [place] [address]DrRenee Zhang LYMPH # 1.7 103/ul Normal 1.2-3.8 [facility] Comment on above: Performed By: #### C BC ####[facility] [address] [place], [place] [address]DrRenee Zhang Lymphocytes/100 WBC (Bld) 16.6 % Critically low 20.5-60.0 [facility] Comment on above: Performed By: #### C BC ####[facility] [address] [place], [place] [address]DrRenee Zhang MANUAL DIFF REQ NO Normal [facility] Comment on above: Performed By: #### C BC ####[facility] [address] [place], [place] [address]Dr. Heidi Vicente MCH (RBC) [Entitic mass] 31.1 pg Normal 25.9-34.0 [facility] Comment on above: Performed By: #### C BC ####[facility] [address] [place], [place] [address]DrRenee Heidi Vicente MCHC (RBC) [Mass/Vol] 33.9 g/dL Normal 29.9-35.2 [facility] Comment on above: Performed By: #### C BC ####[facility] [address] [place], [place] [address]DrRenee Zhang MCV (RBC) [Entitic vol] 91.8 fL Normal 80.0-94.0 [facility] Comment on above: Performed By: #### C BC ####[facility] [address] [place], [place] [address]DrRenee Zhang MONO # 0.9 103/ul Critically high 0.3-0.[address] [facility] Comment on above: Performed By: #### C BC ####[facility] [address] [place] [id number]. Heidi Zhang Monocytes/100 WBC (Bld) 8.7 % Normal 1.7-12.0 [facility] Comment on above: Performed By: #### C BC ####[facility] [address] [place] [address]Dr. Heidi Zhang NEUT # 6.9 103/ul Critically high 1.4-6.[address] [facility] Comment on above: Performed By: #### C BC ####[facility] [address] [place] [address]Dr. Heidi Zhang Neutrophils/100 WBC (Bld) 69.3 % Normal 43.0-75.0 [facility] Comment on above: Performed By: #### C BC ####[facility] [address] [place] [address]Dr. Heidi Zhang Platelet mean volume (Bld) [Entitic vol] 9.9 fL Normal 9.5-13.5 [facility] Comment on above: Performed By: #### C BC ####[facility] [address] [place] [address]Dr. Heidi Zhang PLT 153 103/ul Normal 150-450 [facility] Comment on above: Performed By: #### C BC ####[facility] [address] [place] [address]Dr. Heidi Zhang RBC 4.88 106/ul Normal 4.70-6.10 [facility] Comment on above: Performed By: #### C BC ####[facility] [address] [place] [address]Dr. Heidi Zhang WBC 10.0 103/ul Normal 4.0-11.0 [facility] Comment on above: Performed By: #### C BC ####[facility] [address] [place], [place] [address]Dr. Heidi Zhang GLYCOHEMOGLOBIN A1Con 10-24- 2022 ADA RECOMMENDATION SEE BELOW Normal [facility] Comment on above: Result Comment: ADA RECOMMENDED LIMIT 4.0 - 6.0 ADA THERAPEUTIC TARGET < 7.0 ACTION SUGGESTED > 7.0 Performed By: #### A 1C #### [facility] [address] [place] [address] [address] Heidi Zhang Glucose [Mass/Vol] 166 mg/dL Normal [facility] Comment on above: Performed By: #### A 1C #### [facility] [address] [place] [address] [address] Heidi Zhang HbA1c (Bld) [Mass fraction] 7.4 % Critically high 4.5-6.2 [facility] Comment on above: Performed By: #### A 1C #### [facility] [address] [place] [address] [address] Heidi Zhang LIPID PROFILEon 08-11-2022 CHOL-HDL RATIO NORM SEE BELOW Normal [facility] Comment on above: Result Comment: 3.3 - 4.4 LOW RISK 4.4 - 7.1 AVERAGE RISK 7.1 - 11.0 MODERATE RISK >11.0 HIGH RISK Performed By: #### B MP, LIPID ####[facility] [address] [place] [id number] Zhang Cholesterol [Mass/Vol] 127 mg/dL Normal <=200 [facility] Comment on above: Performed By: #### B MP, LIPID ####[facility] [address] [place] [id number] Zhang Cholesterol in HDL [Mass/Vol] 41 mg/dL Normal 40-60 [facility] Comment on above: Performed By: #### B MP, LIPID ####[facility] [address] [place], [place] [address]TqRenee Zhagn Cholesterol in LDL [Mass/Vol] 55.2 mg/dL Normal [facility] Comment on above: Performed By: #### B MP, LIPID ####[facility] [address] [place], [place] [address]BqRenee Zhang Cholesterol.total/C holesterol in HDL [Mass ratio] 3.1 {ratio} Normal [facility] Comment on above: Performed By: #### B MP, LIPID ####[facility] [address] [place] [address]Dr. Heidi Zhang HDL NORMAL > or = 60 mg/dl - LO W CARDIOVASCULAR RISK <40 mg/dl - HIGH CARDIOVASCULAR RISK Normal [facility] Comment on above: Performed By: #### B MP, LIPID ####[facility] [address] [place] [address]Dr. Heidi Zhang LDL CALC NORMAL SEE BELOW Normal [facility] Comment on above: Result Comment: <100 mg/dl OPTIMAL 100 - 129 mg/dl NEAR OR ABOVE OPTIMAL 130 - 159 mg/dl BORDERLINE HIGH 160 - 189 mg/dl HIGH >190 mg/dl VERY HIGH Performed By: #### B MP, LIPID ####[facility] [address] [place] [address]Dr. Heidi Zhang Triglyceride [Mass/Vol] 154 mg/dL Critically high <=150 [facility] Comment on above: Performed By: #### B MP, LIPID ####[facility] [address] [place] [address]Dr. Heidi Zhang VLDL CALC 30.8 mg/dL Normal [facility] Comment on above: Performed By: #### B MP, LIPID ####[facility] [address] [place] [address]Dr. Heidi Zhang PROF CHEM 8 (BAS METB)on Anion gap [Moles/Vol] 10.1 mmol/L Normal [facility] Comment on above: Performed By: #### B MP, LIPID ####[facility] [address] [place] [address]Dr. Heidi Zhang Calcium [Mass/Vol] 9.2 mg/dL Normal 8.5-10.1 [facility] Comment on above: Performed By: #### B MP, LIPID ####[facility] [address] [place] [address]Dr. Heidi Zhang Chloride [Moles/Vol] 95 mmol/L Critically low 98-107 [facility] Comment on above: Performed By: #### B MP, LIPID ####[facility] [address] [place] [address]Dr. Heidi Zhang CO2 [Moles/Vol] 28.9 mmol/L Normal 21.0-32.0 [facility] Comment on above: Performed By: #### B MP, LIPID ####[facility] [address] [place] [address]Dr. Nevaehrachel Zhang Creatinine [Mass/Vol] 0.92 mg/dL Normal 0.70-1.30 [facility] Comment on above: Performed By: #### B MP, LIPID ####[facility] [address] [place] [address]Dr. Nevaehrachel Vicente EGFR-AF DUTCH >60 Normal >=60 [facility] Comment on above: Performed By: #### B MP, LIPID ####[facility] [address] [place] [address]Dr. Heidi Zhang EGFR-NON AF DUTCH >60 Normal >=60 [facility] Comment on above: Performed By: #### B MP, LIPID ####[facility] [address] [place] [address]Dr. Nevaehrachel Vicente Glucose [Mass/Vol] 172 mg/dL Critically high 74-106 T [facility] Comment on above: Performed By: #### B MP, LIPID ####[facility] [address] [place] [address]Dr. Heidi Zhang Potassium [Moles/Vol] 5.0 mmol/L Normal 3.5-5.1 [facility] Comment on above: Performed By: #### B MP, LIPID ####[facility] [address] [place] [address]Dr. Heidi Zhang Sodium [Moles/Vol] 129 mmol/L Critically low 136-145 Th [facility] Comment on above: Performed By: #### B MP, LIPID ####[facility] [address] [place] [id number]. Heidi Zhang Urea nitrogen [Mass/Vol] 14.0 mg/dL Normal 7.0-18.0 [facility] Comment on above: Performed By: #### B MP, LIPID ####[facility] [address] [place], [place] [address]Dr. Heiid Zhang Urea nitrogen/Creatinine [Mass ratio] 15.2 mg/mg Normal [facility] Comment on above: Performed By: #### B MP, LIPID ####[facility] [address] [place], [place] [address]PqDr. Heidi Zhang US LADI DOP LEG RTon 04-28-20 22 US LADI DOP LEG RT RIGHT LOWER EXTREMIT Y VENOUS DUPLEX CLINICAL HISTORY: Localized swelling of right lower leg COMPARISON: None FINDINGS: Duplex Doppler evaluation of the deep venous system of the right lower extremity from the common femoral vein to the popliteal vein including color Doppler and spectral/pulsed waveform analysis was performed. The left iliac vein is imaged on this examination and demonstrates no acute process or focal abnormality in its limited visualized portions. The common femoral vein demonstrates appropriate compressibility and waveform variability. There is compressibility/patenc y of the great saphenous vein at the proximal thigh. The femoral vein demonstrates appropriate compressibility and waveform variability. The deep femoral vein demonstrates appropriate compressibility and waveform variability. The popliteal vein demonstrates appropriate compressibility and waveform variability. The limited visualized vessels distal to the popliteal vein on the Right demonstrate no focal abnormality or acute process. There are minimal areas of subcutaneous edema in the lower extremity. This is most pronounced on image 25. IMPRESSION: No right femoropopliteal venous thrombosis. If clinical concern/symptoms persist or worsen, short-interval follow-up study is suggested. Electronically authenticated by: KAY SOMMER Date: 2022-04-28 21:51 Normal [facility] GLYCOHEMOGLOBIN A1Con 2021 ADA RECOMMENDATION SEE BELOW Normal [facility] Comment on above: Result Comment: ADA RECOMMENDED LIMIT 4.0 - 6.0 ADA THERAPEUTIC TARGET < 7.0 ACTION SUGGESTED > 7.0 Performed By: #### A 1C #### [facility] [address] [place] [address] [address] Heidi Zhang Glucose [Mass/Vol] 154 mg/dL Normal [facility] Comment on above: Performed By: #### A 1C #### [facility] [address] [place] [address] [address] Heidi Zhang HbA1c (Bld) [Mass fraction] 7.0 % Critically high 4.5-6.2 [facility] Comment on above: Performed By: #### A 1C #### [facility] [address] [address] [address] Heidi Zhang LIPID PROFILEon 03-31-2022 CHOL-HDL RATIO NORM SEE BELOW Normal [facility] Comment on above: Result Comment: 3.3 - 4.4 LOW RISK 4.4 - 7.1 AVERAGE RISK 7.1 - 11.0 MODERATE RISK >11.0 HIGH RISK Performed By: #### L IPID #### [facility] [address] [address] [address] Heidi Zhang Cholesterol [Mass/Vol] 126 mg/dL Normal <=200 [facility] Comment on above: Performed By: #### L IPID #### [facility] [address] [address] [address] Heidi Zhang Cholesterol in HDL [Mass/Vol] 37 mg/dL Critically low 40-60 [facility] Comment on above: Performed By: #### L IPID #### [facility] [address] [address] [address] Heidi Zhang Cholesterol in LDL [Mass/Vol] 37.4 mg/dL Normal [facility] Comment on above: Performed By: #### L IPID #### [facility] [address] [address] [address] Heidi Zhang Cholesterol.total/C holesterol in HDL [Mass ratio] 3.4 {ratio} Normal [facility] Comment on above: Performed By: #### L IPID #### [facility] [address] [address] [address] Heidi Zhang HDL NORMAL > or = 60 mg/dl - LO W CARDIOVASCULAR RISK <40 mg/dl - HIGH CARDIOVASCULAR RISK Normal [facility] Comment on above: Performed By: #### L IPID #### [facility] [address] [address] [address] Heidi Zhang LDL CALC NORMAL SEE BELOW Normal [facility] Comment on above: Result Comment: <100 mg/dl OPTIMAL 100 - 129 mg/dl NEAR OR ABOVE OPTIMAL 130 - 159 mg/dl BORDERLINE HIGH 160 - 189 mg/dl HIGH >190 mg/dl VERY HIGH Performed By: #### L IPID #### [facility] [address] [address] [address] Heidi Zhang Triglyceride [Mass/Vol] 258 mg/dL Critically high <=150 [facility] Comment on above: Performed By: #### L IPID #### [facility] [address] [address] [address] Heidi Zhang VLDL CALC 51.6 mg/dL Normal [facility] Comment on above: Performed By: #### L IPID #### [facility] [address] [address] [address] Heidi Zhang CNOVon 02-27-2022 CNOV Office Visit (OTOLMN ) JOIE LU JR ([id number]) 1955 M Date Time Provider Department 02/27/22 2:45 PM GIFTY COUCH OTOLMN During your visit today, we recorded the following information about you: Judy Pacheco Ma 02/27/2022 2:58 PM Signed Tobacco Use: .5 packs/day, for 1 years. Quit 02/15/1982. Types: Cigarettes Was smoking cessation packet given? N/A - Patient is a non-smoker or quit >1 year ago. Was a referral initiated?N/A Patient is a non-smoker Gifty Couch MD 02/28/2022 1:04 AM Signed Staff Physician Comments: I testify that I personally interviewed and examined the patient. I confirm the below exam findings, assessment and plan were my own and resident/FRENCH COMBER/scribe was acting as SCRIBE. Hearing unchanged, unimproved It's unclear where his severe ear pain is coming from as it's not happening today and the ear looks very healthy. Recommend pt come back to [facility] for assessment next time this flares so we can see if its otologic or not. Gifty Couch MD, FACS Section Head, Otology/Neurotology/[facility] Base Surgery Presales Engineer, Cochlear Implant Program [facility] History of Present Illness Mr. JOIE LU JR is a 66 year old male with a history of conductive hearing loss with ossicular chain reconstruction and TORP prothesis on the right completed 10/2019, with revision on 07/15/21. 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 Since last seen, Patient was treated for an infection of his right ear about 2 weeks ago with oral antibiotics and steroids from PCP. Partha Jackson PA-C treated with Percocet for the pain. This improved within a day. Has been okay since. The right ear felt like it was draining, but has not seen any drainage. Has not seen drainage for over a year, just feels wet. Feels like his hearing has improved since his last visit. Still feels like he will need hearing aids. Asking others to repeat themselves, mostly with the right ear. Uses the left ear to talk on the phone. Not struggling with word recognition. Denies otalgia, tinnitus, dizziness, ear fullness and pressure and facial numbness, weakness and tingling. ALLERGIES Allergen Reactions - Morphine Rash, Itching - Bee Sting Swelling, Anaphylaxis - Penicillins Itching Current Outpatient Medications on File Prior to Visit Medication Sig - clonazePAM (KLONOPIN) 1 mg tablet Take 1 tablet by mouth three times daily for 90 days. - atorvastatin (LIPITOR) 10 mg tablet Take 10 mg by mouth once daily. - busPIRone (BUSPAR) 15 mg tablet Take 15 mg by mouth three times daily. - gabapentin (NEURONTIN) 300 mg capsule Take 300 mg by mouth three times daily. - venlafaxine ER (EFFEXOR XR) 150 mg 24 hr capsule Take 150 mg by mouth once daily. - loratadine (CLARITIN) 10 mg tablet Take 10 mg by mouth once daily. - prazosin (MINIPRESS) 1 mg cap Take 1 mg by mouth twice daily. - cloNIDine HCl (CATAPRES) 0.1 mg tablet - meloxicam (MOBIC) 15 mg tablet Take 1 tablet by mouth once daily. - glimepiride (AMARYL) 4 mg tablet Take 4 mg by mouth daily with breakfast. - lisinopril (ZESTRIL, PRINIVIL) 10 mg tablet Take 10 mg by mouth once daily. - tiotropium bromide (SPIRIVA RESPIMAT) 2.5 mcg/actuation mist Inhale as instructed. - fluticasone-vilanterol (BREO ELLIPTA) 100-25 mcg/dose inhaler Inhale 1 Inhalation as instructed once daily. - Levothyroxine 112 mcg cap Take by mouth. - metFORMIN (GLUCOPHAGE) 1,000 mg tablet Take 1 tablet by mouth twice daily. - multivitamin tablet Take 1 tablet by mouth once daily. - aspirin 81 mg chewable tablet Take 1 tablet by mouth twice daily. - amLODIPine (NORVASC) 10 mg tablet Take 1 tablet by mouth once daily. - oxyCODONE-acetaminophe n (PERCOCET) 5-325 mg tablet Take 1 tablet by mouth every 8 hours as needed for pain. (Patient not taking: Reported on 02/27/2022) - ofloxacin (FLOXIN) 0.3 % otic solution Use 3 Drops in the ears twice daily. (Patient not taking: Reported on 02/27/2022 ) - ofloxacin (OCUFLOX) 0.3 % ophthalmic solution 3 drops to right ear twice daily, use concurrently with Dexamethasone (Patient not taking: Reported on 02/20/2021 ) - Hydrochlorothiazide 12.5 mg capsule hydrochlorothiazide 12.5 mg capsule (Patient not taking: hydrochlorothiazide 12.5 mg capsule) - zolpidem (AMBIEN) 10 mg tab Take by mouth at bedtime as needed. (Patient not taking: Reported on 06/14/2021) - vortioxetine (TRINTELLIX) 20 mg tablet Take by mouth. (Patient not taking: Reported on 07/04/2021 ) No current facility-administered medications on file prior to visit. Objective: There were no vitals taken for this visit. Appearance: Non-syndromic, cooperative and calm Communication: Voice has adequate volume; there is no stridor Head/Face: head and facial contours are symmetric Facial nerve 1/6 bilateral Skin: Sarahi (more content not included)... Normal [facility] Office Visit (CDISMN ) JOIE LU JR ([id number]) 1955 M Date Time Provider Department 02/27/22 2:00 PM SHIKHA MUNOZ During your visit today, we recorded the following information about you: ANIVAL Glover 02/27/2022 3:36 PM Signed [facility] AUDIOLOGIC EVALUATION REPORT Name: Joie Lu JR [facility]#: [id number] Date of Service: 02/27/2022 Date of : 1955 Age: [age] year old Referred by: Regan Ortega MD ([facility]) [address] [facility] [address] Referred for: Evaluation of suspected change in hearing, tinnitus, or balance. Referral documented: In an order in [facility] Joie Lu JR was seen for a recheck audiologic evaluation prior to consultation with Otology (Dr. Couch). Recall that history is significant for mixed hearing loss in the right ear and prior ear surgeries (right ossicular chain reconstruction and TORP prosthesis 11/03/2019 and s/p revision right tympanoplasty and ossicular chain reconstruction with prothesis on 07/15/2021 by Gifty Couch MD). Previous audiologic testing was completed on 07/10/2021 (prior to surgical revision), which revealed a moderate to profound mixed hearing loss in the right ear and a mild sloping to moderately-severe sensorineural hearing loss in the left ear. Today, Mr. Lu reported an onset of right-sided otalgia and aural fullness approximately 3 weeks ago, which has since resolved. He denied any otalgia (0/10), tinnitus, aural fullness, vertigo, and otorrhea today. He continues to report right greater than left hearing loss. See [facility] Audiogram for additional reported history and symptoms. INTERPRETATION OF HEARING STATUS RIGHT EAR: Mixed (conductive and sensorineural) hearing loss LEFT EAR: Sensorineural hearing loss Comparison of today's results with previous test results (07/10/2021): Today's results suggest a slight global decrease in both ears TESTING, AND RESULTS Following is a brief interpretation of the obtained findings from the audiologic evaluation. Refer to the Auditory Test Record for complete audiometric results. The patient was counseled about the test findings and appropriate audiologic recommendations were made. SUMMARY: Audiogram can be viewed under Forms/Audiology/Smart[facility] orm. MIDDLE EAR: via acoustic immittance testing RIGHT EAR Tympanometry: Normal ME function. LEFT EAR Tympanometry: Normal ME pressure with enhanced TM compliance (mobility). AUDITORY/FACIAL NERVE FUNCTION: via acoustic reflex testing RIGHT EAR PROBE EAR: (ipsi right stimulus ear; contralateral left stimulus ear): Acoustic Reflex Pattern Did not test Acoustic Reflex Decay (left stimulus ear): Did not test. LEFT EAR PROBE EAR: (ipsi left stimulus ear; contralateral right stimulus ear): Acoustic Reflex Pattern (Did not test Acoustic Reflex Decay (right stimulus ear):Did not test. HEARING ASSESSMENT: via pure tone and speech testing RIGHT EAR: Hearing Sensitivity: Moderate gradually sloping to profound mixed hearing loss. Word Recognition Score: Excellent (90%). WRS is consistent with hearing sensitivity. Words were presented at 110 dB HL which is above intensity level for normal conversational speech. The NU-6 Order by Difficulty Word List (10 words) was used for testing. Contralateral masking utilized. LEFT EAR: Hearing Sensitivity: WNL through 1000 Hz gradually sloping to a severe SNHL at 8000 Hz. Word Recognition Score: Excellent (92%). WRS is consistent with hearing sensitivity. Words were presented at 65 dB HL which is above intensity level for normal conversational speech. The NU-6 Order by Difficulty Word List (25 words) was used for testing. MANAGEMENT PLAN: * Continue medical follow-up with Gifty Couch MD. * Consider pursuing appropriate amplification pending medical clearance. Patient was advised to contact his insurance to determine if he has a hearing aid benefit. Should patient wish to pursue amplification at [facility], call [phone] to schedule a hearing aid evaluation appointment. * Re-evaluation as medically indicated, or sooner, if a change in hearing is noted. I verify that I have reviewed the history, test results, and interpretation for this patient. Neri Glover, MEL/A Clinical Line O Scribe Operator ALVINO cohn Definition Degree of hearing sensitivity dB range WNL within normal limits WNL 0 - 20 SNHL sensorineural hearing loss Mild 20-40 CHL conductive hearing loss Moderate 40-55 MHL mixed hearing loss Moderately-Severe 55-70 WRS word recognition score Severe 70-90 ME middle ear Profound 90 + TM tympanic membrane Referring Provider: REGAN ORTEGA [[id number]] Allergies As of Date: 02/27/2022 Noted Allergy Reaction MORPHINE 05/25/2014 2 - Rash 9 - Itching BEE STING 08/18/2018 7 - Swelling 10 - Anaphylaxis PENICILLINS 01/17/20 (more content not included)... Normal [facility] CNPNon 02-11-2022 CNPN Telephone (OTOLMN) JOIE LU JR ([id number]) 1955 M Date Time Provider Department 02/11/22 GIFTY COUCH During your visit today, we recorded the following information about you: Carin Freeman Adm Asst 02/11/2022 3:05 PM Signed Patient has a severe ear infection, he has not slept in 2 days due to the pain. He was given an antibiotic form his PCP today, but he is calling asking if he could have 1 or 2 5 mg oxycodone prescribed for the pain. His PCP kendrick snot issue pain meds, he just wants something to take the sharp aches away. [facility] is perferred pharmacy Thanks Carin Freeman Adm Asst Natalie Cabrera [facility] 02/12/2022 1:07 PM Signed Pt contacted the office again with the request for pain medication...patient mentioned that he reached out to PCP who refused to prescribe until seen on 02/27/2022. Pt is having difficulty sleeping at night Partha Jackson PA-C 02/12/2022 5:52 PM Signed The right ear, with surgery, is painful. This started about a week ago and worse in the last 4 days. This feels like a stabbing pain. It feels thick like it is going to explode. He is having pressure in the ear too. Reports that when he woke up in the middle of the night the ear felt moist. Has been on 3 different antibiotics recently. Has been Azithromycin, Augmentin. Has also been on a steroid, unsure of which one. He took them from a previous prescription and took them for 8-9 days. Was told that there is so much scar tissue that he cannot see everything, but reports that it was an infection. Has been trying the drops, Floxin, but they have not helped up to this point. He is also taking Tylenol and Ibuprofen for the pain, taking every 3-4 hours. Still having pain. Not affecting the jaw. Denies dizziness and vertigo. PLAN: -Only 3 percocet given to get him through a 24 hour period. NO MORE TO BE GIVEN. -Educated patient on being cautious with the amount of Tylenol he is taking in conjunction with the Percocet as it has some Tylenol. -Encouraged use of Ibuprofen, ear drops and oral antibiotic. -To be seen in the office in a few weeks as he has an appointment on February [address] Gifty Couch. Partha Jackson PA-C February 12, 2022 5:51 PM Allergies As of Date: 02/11/2022 Noted Allergy Reaction MORPHINE 05/25/2014 2 - Rash 9 - Itching BEE STING 08/18/2018 7 - Swelling 10 - Anaphylaxis PENICILLINS 01/16/2015 9 - Itching Date Reviewed: 08/16/2021 Reviewed by: Gifty Couch MD - Fully Assessed Reason for Visit: Returning Patient's Call [[id number]] Primary Visit Diagnosis:Otalgia, right [H92.01] Order(s):oxyCODONE-carlos taminophen (PERCOCET) 5-325 mg tabletTake 1 tablet by mouth every 8 hours as needed for pain.Disp: 3 tabletRfl: 0 Prescriptions as of 02/12/2022 - oxyCODONE-acetaminophe n (PERCOCET) 5-325 mg tablet Take 1 tablet by mouth every 8 hours as needed for pain. - clonazePAM (KLONOPIN) 1 mg tablet Take 1 tablet by mouth three times daily for 90 days. - ofloxacin (FLOXIN) 0.3 % otic solution Use 3 Drops in the ears twice daily. - atorvastatin (LIPITOR) 10 mg tablet Take 10 mg by mouth once daily. - busPIRone (BUSPAR) 15 mg tablet Take 15 mg by mouth three times daily. - gabapentin (NEURONTIN) 300 mg capsule Take 300 mg by mouth three times daily. - venlafaxine ER (EFFEXOR XR) 150 mg 24 hr capsule Take 150 mg by mouth once daily. - loratadine (CLARITIN) 10 mg tablet Take 10 mg by mouth once daily. - prazosin (MINIPRESS) 1 mg cap Take 1 mg by mouth twice daily. - ofloxacin (OCUFLOX) 0.3 % ophthalmic solution 3 drops to right ear twice daily, use concurrently with Dexamethasone - cloNIDine HCl (CATAPRES) 0.1 mg tablet - Hydrochlorothiazide 12.5 mg capsule hydrochlorothiazide 12.5 mg capsule - meloxicam (MOBIC) 15 mg tablet Take 1 tablet by mouth once daily. - glimepiride (AMARYL) 4 mg tablet Take 4 mg by mouth daily with breakfast. - lisinopril (ZESTRIL, PRINIVIL) 10 mg tablet Take 10 mg by mouth once daily. - zolpidem (AMBIEN) 10 mg tab Take by mouth at bedtime as needed. - vortioxetine (TRINTELLIX) 20 mg tablet Take by mouth. - tiotropium bromide (SPIRIVA RESPIMAT) 2.5 mcg/actuation mist Inhale as instructed. - fluticasone-vilanterol (BREO ELLIPTA) 100-25 mcg/dose inhaler Inhale 1 Inhalation as instructed once daily. - Levothyroxine 112 mcg cap Take by mouth. - metFORMIN (GLUCOPHAGE) 1,000 mg tablet Take 1 tablet by mouth twice daily. - multivitamin tablet Take 1 tablet by mouth once daily. - aspirin 81 mg chewable tablet Take 1 tablet by mouth twice daily. - amLODIPine (NORVASC) 10 mg tablet Take 1 tablet by mouth once daily. Problem List As Of Date 02/11/2022 Noted Resolved Pain in joint, lower leg [M25.569] 09/03/2006 10/24/2019 Plantar fascial fibromatosis [M72.2] 12/11/2006 06/22/2018 Sprain of ankle, unspe (more content not included)... Normal [facility] Kanwal 02-06-2022 CNPN Telephone (OTOLMN) JOIE LU ([id number]) 1955 M Date Time Provider Department 02/06/22 GIFTY COUCH During your visit today, we recorded the following information about you: Carin Freeman Adm Asst 02/06/2022 11:57 AM Signed Patient is calling for a refill on the clonazePAM (KLONOPIN) 1 mg tablet. [facility] on file has been updated Thanks Carin Freeman Adm Asst Asya Elliot 02/07/2022 9:34 AM Addendum Attempted to call patient. Message left on unidentified voicemail that prescription had been filled and to call office if further questions. 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 - ofloxacin (FLOXIN) 0.3 % otic solution Use 3 Drops in the ears twice daily. - atorvastatin (LIPITOR) 10 mg tablet Take 10 mg by mouth once daily. - busPIRone (BUSPAR) 15 mg tablet Take 15 mg by mouth three times daily. - gabapentin (NEURONTIN) 300 mg capsule Take 300 mg by mouth three times daily. - venlafaxine ER (EFFEXOR XR) 150 mg 24 hr capsule Take 150 mg by mouth once daily. - loratadine (CLARITIN) 10 mg tablet Take 10 mg by mouth once daily. - prazosin (MINIPRESS) 1 mg cap Take 1 mg by mouth twice daily. - ofloxacin (OCUFLOX) 0.3 % ophthalmic solution 3 drops to right ear twice daily, use concurrently with Dexamethasone - cloNIDine HCl (CATAPRES) 0.1 mg tablet - Hydrochlorothiazide 12.5 mg capsule hydrochlorothiazide 12.5 mg capsule - meloxicam (MOBIC) 15 mg tablet Take 1 tablet by mouth once daily. - glimepiride (AMARYL) 4 mg tablet Take 4 mg by mouth daily with breakfast. - lisinopril (ZESTRIL, PRINIVIL) 10 mg tablet Take 10 mg by mouth once daily. - zolpidem (AMBIEN) 10 mg tab Take by mouth at bedtime as needed. - vortioxetine (TRINTELLIX) 20 mg tablet Take by mouth. - tiotropium bromide (SPIRIVA RESPIMAT) 2.5 mcg/actuation mist Inhale as instructed. - fluticasone-vilanterol (BREO ELLIPTA) 100-25 mcg/dose inhaler Inhale 1 Inhalation as instructed once daily. - Levothyroxine 112 mcg cap Take by mouth. - metFORMIN (GLUCOPHAGE) 1,000 mg tablet Take 1 tablet by mouth twice daily. - multivitamin tablet Take 1 tablet by mouth once daily. - aspirin 81 mg chewable tablet Take 1 tablet by mouth twice daily. - amLODIPine (NORVASC) 10 mg tablet Take 1 tablet by mouth once daily. Problem List As Of Date 02/06/2022 Noted Resolved Pain in joint, lower leg [M25.569] 09/03/2006 10/24/2019 Plantar fascial fibromatosis [M72.2] 12/11/2006 06/22/2018 Sprain of ankle, unspecified site [S93.409A] 12/11/2006 10/24/2019 Osteoarthrosis, unspecified whether generalized*02/08/2007 10/24/2019 OA (OSTEOARTHRITIS) LOCALIZED, PRIMARY( Lower L*07/20/2007 10/24/2019 Wound infection [T14.8XXA, L08.9] 02/13/2012 10/24/2019 Septic arthritis of knee, left [M00.9] 02/23/2012 Abscess of back [L02.212] 07/12/2012 12/01/2012 Type 2 diabetes mellitus with diabetic neuropat* Hypothyroidism [E03.9] Hyperlipidemia [E78.5] HTN (hypertension) [I10] Gout [M10.9] 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] 11/10/2012 Pneumonia [J18.9] 12/01/2012 Elevated LFTs [R79.89] 12/01/2012 Pulmonary nodule [R91.1] 12/01/2012 H/O Clostridium difficile infection [Z86.19] 12/01/2012 DVT prophylaxis [Z29.9] 12/01/2012 Metatarsalgia [M77.40] 01/23/2014 Infection and inflammatory reaction due to unsp*05/08/2014 Left wrist pain [M25.532] 10/09/2014 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] 10/09/2014 Carpal tunnel syndrome [G56.00] 10/09/2014 Diabetic neuropathy, painful (HCC) [E11.40] 01/29/2018 Arthralgia of right lower leg [M25.561] 01/29/2018 History of transmetatarsal amputation of right *01/29/2018 Mixed conductive and sensorineural hearing loss*04/07/2018 Sensorineural hearing loss (SNHL) of left ear w*04/07/2018 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 Normal [facility] CT TEMP BONES WO [facility] Vital Signs Date Time Vital Sign Value Performing Clinician Facility 03-25-2023 14:00-0400 Body height 193.04 cm Agustin Nj Other [facility] Other 03-25-2023 14:00-0400 Body mass index (BMI) [Ratio] 38.95 kg/m2 [facility] Other [facility] Other 03-25-2023 14:00-0400 Body temperature 97.6 [degF] [facility]ustin Nj Other [facility] Other 03-25-2023 14:00-0400 Body weight 145.15 kg Agustin Nj Other [facility] Other 03-25-2023 14:00-0400 Diastolic blood pressure 84 mm[Hg] Agustin Nj Other [facility] Other 03-25-2023 14:00-0400 Respiratory rate 20 /min Agustin Nj Other [facility] Other 03-25-2023 14:00-0400 SaO2% (BldA) [Mass fraction] 96 % Agustin Nj Other [facility] Other 03-25-2023 14:00-0400 Systolic blood pressure 132 mm[Hg] [facility] Nj Other [facility] Other 10-31-2022 09:13-0500 Body temperature 98.2 [degF] Saima Macdonald MD Work Phone: [facility] 08-28-2021 10:30-0500 Body height 193.04 cm [facility]ust[facility] N[facility] Other [facility] Other 08-28-2021 10:30-0500 Body mass index (BMI) [Ratio] 39.68 kg/m2 [facility] Other [facility] Other 08-28-2021 10:30-0500 Body temperature 98.4 [degF] [facility]ust[facility] N[facility] Other [facility] Other 08-28-2021 10:30-0500 Body weight 147.87 kg Agustin Nj Other [facility] Other 08-28-2021 10:30-0500 Diastolic blood pressure 92 mm[Hg] [facility]ustin Nj Other [facility] Other 08-28-2021 10:30-0500 Respiratory rate 20 /min Agustin Nj Other [facility] Other 08-28-2021 10:30-0500 SaO2% (BldA) [Mass fraction] 97 % [facility] N[facility] Other [facility] Other 08-28-2021 10:30-0500 Systolic blood pressure 160 mm[Hg] [facility] Other [facility] Other Encounters Encounter Date Encounter Type Care Provider Facility Start: 10-26-2023 End: 10-26-2023 ambulatory SHAIKH MAINE Not Available Start: 09-24-2023 End: 09-24-2023 ambulatory LAUREN SHETH Not Available Start: 09-01-2023 End: 09-02-2023 ambulatory Lucía Montero METAL FABRICATING INSPECTOR-SOCIAL SERVICES SPECIALIST Facility:[facility] Start: 08-31-2023 End: 09-01-2023 ambulatory Johnny Cespedes MD Facility:[facility] Start: 08-27-2023 End: 08-28-2023 ambulatory Linh Simone Donaldsonzman METAL FABRICATING INSPECTOR-SOCIAL SERVICES SPECIALIST Facility:[facility] Start: 08-24-2023 End: 08-25-2023 ambulatory Linh Simone Cheatham METAL FABRICATING INSPECTOR-SOCIAL SERVICES SPECIALIST Facility:[facility] Start: 08-20-2023 End: 08-21-2023 ambulatory Linh Simone Linden METAL FABRICATING INSPECTOR-SOCIAL SERVICES SPECIALIST Facility:[facility] Start: 08-17-2023 End: 08-18-2023 ambulatory Jose Francisco Beaulieu MD Facility:[facility] Start: 08-17-2023 End: 08-18-2023 ambulatory Linh Simone Linden METAL FABRICATING INSPECTOR-SOCIAL SERVICES SPECIALIST Facility:[facility] Start: 08-13-2023 End: 08-14-2023 ambulatory Linh Simone Linden METAL FABRICATING INSPECTOR-SOCIAL SERVICES SPECIALIST Facility:[facility] Start: 08-11-2023 ambulatory Johnny Cespedes MD Facility:[facility] Start: 08-10-2023 End: 08-11-2023 ambulatory Jose Francisco Beaulieu MD Facility:[facility] Start: 08-06-2023 End: 08-07-2023 ambulatory Linh Simone Cheatham METAL FABRICATING INSPECTOR-SOCIAL SERVICES SPECIALIST Facility:[facility] Start: 08-03-2023 End: 08-04-2023 [facility] FABRICATING INSPECTOR-SOCIAL SERVICES SPECIALIST Facility:[facility] Start: 07-31-2023 End: 08-01-2023 ambulatory Lucía L Montero METAL FABRICATING INSPECTOR-SOCIAL SERVICES SPECIALIST Facility:[facility] Start: 07-21-2023 End: 07-30-2023 Evaluation and management of inpatient Claudia Simpson MD Facility:[facility] Start: 06-25-2023 End: 06-26-2023 ambulatory JUSTIN Jacklyn [facility] Start: 06-10-2023 End: 06-10-2023 Encounter for preprocedural laboratory examination [facility] Start: 06-10-2023 End: 06-13-2023 ambulatory JUSTIN Jacklyn [facility] Start: 06-10-2023 End: 06-12-2023 Patient encounter status [facility] 4 [facility] Radiology Start: 06-10-2023 End: 06-12-2023 Subsequent hospital visit by physician [facility] Xr Dr Room 4 [facility] Laboratory Comment on above: 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; Encounter for preprocedural laboratory examination Start: 06-08-2023 End: 06-08-2023 Subsequent hospital visit by physician [facility] Pre Admit Test Rm [facility] PRE ADMIT Comment on above: No Show Start: 06-01-2023 Refill Partha Sudaniellela c PA-C Work Phone: [facility] Comment on above: Refill Request Start: 05-27-2023 Chart Update Shaikh Maine Work Phone: [facility] 250 DO Work Phone: Start: 05-26-2023 ambulatory PCP UNKNOWN Facility:[id number] Start: 05-25-2023 Encounter for preprocedural cardiovascular examination [facility] Start: 05-25-2023 ambulatory PCP UNKNOWN Facility:[id number] Start: 04-14-2023 End: 04-14-2023 ambulatory Kamal Chaban Facility:[facility] Start: 04-14-2023 End: 04-14-2023 ambulatory MD Shaikh Grove Work Phone: [facility] Work Phone: Start: 04-14-2023 End: 04-14-2023 Patient encounter procedure MD Shaikh Grove Work Phone: [facility]-CT Scan [facility] [place] Work Phone: Start: 04-09-2023 NPVRFRL, Provider: Mily Marlow, Status: Pen, Time: 10:00 AM Mily Marlow MD Work Phone: [facility] 600 DO Work Phone: Start: 04-09-[address] Mily Marlow Facility: Start: 04-08-2023 AUDIT Mily bales MD Work Phone: [facility] 600 DO Work Phone: Start: 04-03-2023 End: 04-03-2023 ambulatory Agustin Nj Other [facility] [employer] Other Start: 04-03-2023 Telephone encounter Agustin Adancassidy [facility] Start: 03-27-2023 End: 03-28-2023 ambulatory SHAIKH MAINE [facility] Start: 03-25-2023 End: 03-25-2023 ambulatory Agustin Nj Other [facility] [employer] Other Start: 03-25-2023 Office outpatient vi sit 15 minutes Kamjamel Nj [facility] Start: 03-25-2023 End: 04-14-2023 Pre-admission assessment Jose Francisco Buck [facility] Start: 02-24-2023 End: 02-24-[address] BRENDA SUÁREZ . 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 (Primary Dx); Fluid level behind tympanic membrane of right ear; Mixed conductive and sensorineural hearing loss of right ear with restricted hearing of left ear; Status post tympanoplasty; Impacted cerumen of left ear Start: 12-22-2022 End: 12-23-2022 ambulatory SHAIKH Jonathan GROVE Facility:[facility] Start: 12-02-2022 End: 12-02-2022 ambulatory Agustin Antionettecassidy Other [employer] Other Start: 12-02-2022 Telephone encounter Perfectojamel Adancassidy [facility] Start: 11-06-2022 End: 11-06-2022 ambulatory Perfectojamel Adancassidy Other [employer] Other Start: 11-06-2022 Telephone encounter Saima raya MD Work Phone: Otolaryngology Comment on above: Patient Question; Or ders Start: 10-31-2022 End: 10-31-2022 ambulatory SAIMA MACDONALD Facility:[facility] Start: 10-31-2022 End: 10-31-2022 Patient encounter procedure Saima Macdonald MD Work Phone: Otolaryngology Comment on above: Acute recurrent fron monica sinusitis; Other chronic sinusitis Start: 10-13-2022 End: 10-14-2022 ambulatory SHAIKH Jonathan GROVE Facility:[facility] Start: 10-03-2022 End: 10-03-2022 ambulatory Marlin Vasquez Other [employer] Other Start: 10-03-2022 Telephone encounter Marlin Vasquez [facility] Start: 08-19-2022 End: 08-20-2022 ambulatory PARTHA JACKSON Facility:[facility] Start: 08-19-2022 End: 08-19-2022 Patient encounter procedure Partha Jackson PA-C Work Phone: Otolaryngology Comment on above: 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 (Primary Dx); Mixed conductive and sensorineural hearing loss of right ear with restricted hearing of left ear; Status post tympanoplasty; Acute recurrent frontal sinusitis Start: 08-14-2022 End: 08-15-2022 ambulatory CALVO H FAWWAD Facility:[facility] Start: 08-11-2022 End: 08-12-2022 ambulatory CALVO H FAWWAD Facility:[facility] Start: 07-17-2022 End: 07-17-2022 ambulatory Marlin Christina Other [employer] Other Start: 07-17-2022 Telephone encounter Marlin Vasquez [facility] Start: 06-19-2022 End: 06-20-2022 ambulatory CALVO H FAWWAD Facility:[facility] Start: 04-28-2022 End: 04-29-2022 ambulatory CALVO H FAWWAD Facility:[facility] Start: 04-09-2022 End: 04-09-2022 ambulatory Kamal Chaban Other [employer] Other Start: 04-09-2022 Telephone encounter Kamjamel Nj [facility] Start: 03-31-2022 End: 04-01-2022 ambulatory CALVO H FAWWAD Facility:[facility] Start: 02-27-2022 End: 02-28-2022 ambulatory GIFTY COUCH Facility:[facility] Start: 02-27-2022 End: 02-27-2022 Patient encounter procedure Shikha FLORIAN Work Phone: Audiology Comment on above: Mixed conductive and sensorineural hearing loss of right ear with restricted hearing of left ear (Primary Dx); Sensorineural hearing loss (SNHL) of left ear with restricted hearing of right ear Mixed conductive and sensorineural hearing loss of right ear with restricted hearing of left ear (Primary Dx); 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; Status post tympanoplasty; Impacted cerumen of left ear Start: 02-11-2022 Telephone encounter Gifty raygoza MD Work Phone: Otolaryngology Comment on above: Returning Patient's Call Start: 02-06-2022 Telephone encounter Gifty raygoza MD Work Phone: Otolaryngology Comment on above: Refill Request Start: 08-28-2021 End: 08-28-2021 ambulatory Kamjamel Nj Other [facility] [employer] Other Start: 08-28-2021 Office outpatient vi sit 15 minutes Perfectojamel Clem [facility] Start: 03-06-2021 End: 03-06-2021 Subsequent hospital visit by physician [facility] Vonda Work Phone: Radiology Comment on above: 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.A31] Start: 11-16-2017 End: 11-17-2017 Ambulatory DEFAULT PHYSICIAN Facility:[facility] Patient encounter status Mily Marlow MD Work Phone: -[facility] 600 DO Work Phone: Procedures Date Procedure Procedure Detail Performing Clinician Start: 06-10-2023 Radiologic exam ches t 2 views Justin Mcgowan MD Work Phone: Start: 06-10-2023 Blood typing serolog ic abo Justin Mcgowan MD Work Phone: Start: 06-10-2023 Comprehensive metabo lic panel Justin Mcgowan MD Work Phone: Start: 06-10-2023 Urinalysis microscop ic only Justin Mcgowan MD Work Phone: Start: 06-10-2023 Urnls dip stick/tabl et rgnt auto w/o microscopy Justin Mcgowan MD Work Phone: Start: 04-14-2023 CT of thorax with contrast MD Shaikh Grove Work Phone: Start: 03-06-2021 Ct orbit sella/post fossa/ear w/o contrast matrl Gifty Couch MD Work Phone: Amputation of toe Jose Francisco erwin Comment on above: All toes have been a mputated on R foot Amputation of toe Shaikh Reagan june Work Phone: Arthroplasty of knee Shaikh Maine Work Phone: Cardiac catheterization Rodrigo Buck Cholecystectomy Jose Francisco Hood leonard Cholecystectomy Calvo Kala spain Work Phone: H/O: surgery Status post tympanoplasty Gifty Couch MD Work Phone: H/O: surgery Status post tympanoplasty Parthayasir Jackson PA-C Work Phone: H/O: surgery Status post tympanoplasty Partha Sudaniellelac PA-C Work Phone: Hand surgery care plan Gino Buck Procedure on back Calvo Reagan june Work Phone: Total colonoscopy Calvo Reagan june Work Phone: Comment on above: 2018; Total replacement of left knee joint Jose Francisco Buck Plan of Treatment Date Care Activity Detail Author Start: 06-10-2024 GFR test (Diabetes, CKD 3-4, OR last GFR 15-59) GFR test (Diabetes, CKD 3-4, OR last GFR 15-59) [facility] Start: 11-03-2023 ambulatory [facility] Start: 09-29-2023 FUV, Provider: Mily Marlow, Status: Pen, Time: 10:50 AM FUV, Provider: Mily Marlow, Status: Pen, Time: 10:50 AM [facility] 250 DO Work Phone: Start: 06-25-2023 End: 06-25-2023 Admission to same day surgery center 06/25/2023 Surgery IP Unit Justin Mcgowan MD [address] [place] [address] [place] [address] KNEE TOTAL ARTHROPLASTY [facility] OR Comment on above: KNEE TOTAL ARTHROPLA STY Start: 06-25-2023 End: 06-25-2023 Anesthesia consultation 06/25/2023 Anesthesia Event IP Unit Kristal Nolasco APRN - CRNA [facility] Start: 06-25-2023 End: 06-25-2023 Arthrp kne condyle&platu medial&lat compartments KNEE TOTAL ARTHROPLASTY Right knee pain, unspecified chronicity 06/25/2023 8:00 AM EDT [facility] Start: 06-25-2023 Subsequent hospital visit by physician 06/25/2023 Hospital Encounter IP Unit Justin Mcgowan MD [address] [id number] Start: 06-19-2023 Influenza vaccination INFLUENZA (#1) [facility] Start: 06-02-2023 Annual Wellness Visi t (AWV) Annual Wellness Visit (AWV) [facility] Start: 05-19-2023 Influenza vaccination Flu vaccine (# 1) [facility] Start: 12-03-2022 COVID-19 VACCINE (5 - Moderna series) COVID-19 VACCINE (5 - Moderna series) [facility] Start: 10-19-2022 ADVANCE DIRECTIVE DISCUSSION ADVANCE DIRECTIVE DISCUSSION [facility] Start: 07-04-2022 BP CONTROLLED (<130/80) BP CONTROLLE D (<130/80) [facility] Start: 06-19-2022 Influenza vaccination INFLUENZ A (Season Ended) [facility] Start: 10-19-2021 ADVANCE DIRECTIVE DISCUSSION ADVANCE DIRECTIVE DISCUSSION [facility] Start: 07-04-2021 COVID-19 VACCINE (3 - Booster for Moderna series) COVID-19 VACCINE (3 - Booster for Moderna series) [facility] Start: 2021 PNEUMOVAX AGE 65 AND OVER WITH 5YR LOOKBACK (#1) PNEUMOVAX AGE 65 AND OVER WITH 5YR LOOKBACK (#1) [facility] Start: 03-29-2021 COVID-19 Vaccine (3 - Booster for Moderna series) COVID-19 Vaccine (3 - Booster for Moderna series) [facility] Start: 12-20-2014 Hemoglobin A1c/Hemoglobin.total in Blood HBA1C [facility] Start: 11-16-2013 Pneumococcal 65+ yea rs Vaccine (2 - PCV) Pneumococcal 65+ years Vaccine (2 - PCV) [facility] Start: 11-16-2013 PNEUMOCOCCAL: 65+ (2 - PCV) PNEUMOCOCCAL: 65+ (2 - PCV) [facility] Start: 08-09-2013 Hepatitis B surface antibody level LDL CHOLESTEROL [facility] Start: 2011 PROSTATE CANCER SCREENING DISCUSSION PROSTATE CANCER SCREENING DISCUSSION [facility] Start: 2006 Shingles vaccine (1 of 2) Shingles vaccine (1 of 2) [facility] Start: 2006 SHINGRIX VACCINE (1 of 2) SHINGRIX VACCINE (1 of 2) [facility] Start: 05-20-2005 DTaP/Tdap/Td vaccine (1 - Tdap) DTaP/Tdap/Td vaccine (1 - Tdap) [facility] [place] Start: 2001 COLOGUARD (FIT-DNA) COLOGUARD (FIT-D NA) [facility] Start: 2001 Colonoscopy COLONOSCOPY [facility] Start: 2001 COLORECTAL CANCER SCREENING COLORECTAL CANCER SCREENING [facility] Start: [address] COLONOGRAPHY [facility] Start: 2001 FECAL OCCULT BLOOD FECAL OCCULT BLOO D [facility] Start: 2001 Screening for malign ant neoplasm of colon [facility] [place] Start: 2001 SIGMOIDOSCOPY SIGMOIDOSCOPY [facility] Start: 1986 Zoledronic acid therapy ALPHA- 1 ANTITRYPSIN DEFICIENCY SCREENING [facility] Start: 1975 Urine microalbumin profile DTAP,TDAP,TD (1 - Tdap) [facility] Start: 1974 ANNUAL PCP TEAM SCIENCE AND OPERATIONS OFFICER HELDER DISEASE VISIT ANNUAL PCP TEAM CHRONIC DISEASE VISIT [facility] Start: 1974 BP CONTROLLED (<130/80) BP CONTROLLE D (<130/80) [facility] Start: 1974 GFR test (Diabetes, CKD 3-4, OR last GFR 15-59) GFR test (Diabetes, CKD 3-4, OR last GFR 15-59) [facility] Start: 1974 Glaucoma screening Diabetic retinal exam [facility] Start: 1974 Hepatitis C screening Hepatitis C sc reen [facility] Start: 1974 HIV SCREENING HIV SCREENING [facility] Start: 1974 SPIROMETRY SPIROMETRY [facility] Start: 1974 Urine screening for protein Diabetic Alb to Cr ratio (uACR) test [facility] Start: 1968 Depression Screen Depression Screen [facility] Start: 1966 3 comp foot exam completed DIABETIC FOOT EXAM [facility] Start: 1966 Diabetic foot examination Diabetic foot exam [facility] Start: 1966 Hemoglobin A1c measurement A1C test (Diabetic or Prediabetic) [facility] Start: 1966 Hepatitis B screening URINE ALBUMIN:CREATININE RATIO [facility] Start: 1966 Hepatitis C antibody , confirmatory test DILATED RETINAL EXAM [facility] Start: 1966 Lipid panel Lipids [facility] Start: 1956 ABDOMINAL AORTIC ANEURYSM SCREENING ABDOMINAL AORTIC ANEURYSM SCREENING [facility] End: 11-30-2023 CT SINUS STEREO WO IVCON CT SINUS STEREO WO IVCON Radiology Routine Other chronic sinusitis 1 Occurrences starting 10/31/2022 until 11/30/2023 [facility] Work Phone: Comment on above: 1 Occurrences starti ng 10/31/2022 until 11/30/2023 End: 06-10-2023 MRSA DNA Probe, Nasal [facility] Work Phone: Comment on above: Once for 1 Occurrenc es starting 06/10/2023 until 06/10/2023 [facility] Immunizations Immunization Date Immunization Notes Care Provider Gabino jordan 08-12-2021 COVID-19 Vaccine Moderna - Documentation Purposes Only Agustin Nj Other [employer] Other 02-01-2021 COVID-19 Vaccine Moderna - Documentation Purposes Only Agustin Nj Other [employer] Other 01-04-2021 COVID-19 Vaccine Moderna - Documentation Purposes Only Agustin Nj Other [employer] Other 11-16-2012 pneumococcal polysaccharide vaccine, 23 valent Gifty Couch MD Work Phone: [facility] 07-12-2012 influenza virus vaccine, unspecified formulation Gifty Couch MD Work Phone: [facility] 07-28-2011 influenza virus vaccine, unspecified formulation Gifty Couch MD Work Phone: [facility] 08-06-2005 tetanus toxoid, adsorbed Gifty Couch MD Work Phone: [facility] 05-19-2005 Td, unspecified formulation Jairo Tapia DO Work Phone: [facility] 07-28-2001 pneumococcal polysaccharide vaccine, 23 valent Gifty Couch MD Work Phone: [facility] Payers Date Payer Category Payer Self-pay [id number] 2021 Medicare DEVOTED MEDICARE [facility] [id number] 2021-Present [phone] [address] [place] [address] [facility] [id number] 2021 Medicare [id number] [id number]. [id number] 2021 Unknown [id number] 2.16.840 .1.816141.19 2018 Unknown 1956 Unknown [id number] 2.16.840.1.072258.3.579.2.593 1956 Unknown [id number] 2.16.840.1.140955.3.579.2.593 1956 Unknown [id number] 2.16.840.1.479366.3.579.2.593 1956 Unknown [id number] 2.16.840.1.413742.3.579.2.593 1956 Unknown [id number] 2.16.840.1.483318.3.579.2.593 1956 Unknown [id number] 2.16.840.1.020973.3.579.2.593 1956 Unknown [id number] 2.16.840.1.569043.3.579.2.593 1956 Unknown [id number] 2.16.840.1.981482.3.579.2.593 1956 Unknown [id number] 2.16.840.1.443517.3.579.2.593 1956 Unknown [id number] 2.16.840.1.229652.3.579.2.593 1956 Unknown [id number] 2.16.840.1.977918.3.579.2.727 1956 Unknown [id number] 2.16.840.1.793053.3.579.2.356 1956 Unknown [id number] 2.16.840.1.802137.3.579.2.173 1956 Unknown [id number] 2.16.840.1.064580.3.579.2.173 1956 Unknown [id number] 2.16.840.1.900483.3.579.2.173 1956 Unknown [id number] 2.16.840.1.569150.3.579.2.173 1956 Unknown [id number] 2.16.840.1.377213.3.579.2.173 1956 Unknown [id number] 2.16.840.1.077802.3.579.2.1068 1956 Unknown [id number] 2.16.840.1.234871.3.579.2.1068 1956 Unknown [id number] 2.16.840.1.151754.3.579.2.1259 1956 Unknown [id number] 2.16.840.1.971969.3.579.2.1259 1956 Unknown [id number] 2.16.840.1.218573.3.579.2.196 1956 Unknown [id number] 2.16.840.1.462849.3.579.2.196 1956 Unknown [id number] 2.16.840.1.158135.3.579.2.196 1956 Unknown [id number] 2.16.840.1.877968.3.579.2.196 1956 Unknown [id number] 2.16.840.1.396951.3.579.2.196 1956 Unknown [id number] 2.16840.1.692489.3.579.2.196 1956 Unknown [id number] 2.16840.1.286741.3.579.2.196 1956 Unknown [id number] 2.16.840.1.576883.3.579.2.196 1956 Unknown [id number] 2.16.840.1.327296.3.579.2.196 1956 Unknown [id number] 2.16840.1.749442.3.579.2.196 Medicare [id number] 2.16840.1.915531.19 Medicare Medicare [id number] Unknown [id number] 2.16840.1.072105.3.579.2.531 Social History Date Type Detail Facility Start: 05-12-2012 End: 08-19-2022 Tobacco smoking status NHIS Ex-smoker [facility] End: 02-15-1982 History of tobacco use Current smoker [facility] End: 02-15-1982 History of tobacco use Cigarette Smoker [facility] Start: 08-16-2021 End: 01-27-2023 Alcohol intake Ex-drinker (finding) [facility] Start: 1955 Sex Assigned At Not on file [facility] Start: 01-21-2021 End: 08-19-2022 Exposure to SARS-CoV-2 (event) Not sure [facility] Start: 02-20-2021 End: 10-31-2022 Sex Assigned At [facility] Start: 08-19-2022 End: 10-31-2022 Cigarettes smoked current (pack per day) - Reported 0.5 [facility] Comment on above: quit 40 years ago; Start: 05-12-2012 End: 08-19-2022 Tobacco use and exposure Smokeless tobacco non-user [facility] Start: 1955 Sex Assigned At Male F [facility] Tobacco smoking status No Smokin g Status Entered [facility] National Score (1-10 0), lower number is lower risk Not on file [facility] Start: 05-19-2011 Tobacco smoking stat us NHIS Never smoked tobacco [facility] Start: 04-30-2016 Alcohol intake Current non-dr edge inker heels of alcohol (finding) [facility] Medical Equipment Procedure Code Equipment Code Equipment Origin al Text Equipment Identifier Dates Graft Bn Canc 15 ml Allgrft - [id number] Start: 06-05-2014 Simplex P Bone Cement Radiopaque Full Dose Individual Pack - [id number] Start: 06-04-2012 Sys Bncmnt Gun Brkwy Noz Crtdg - [id number] Start: 06-04-2012 Cement Bone Simplex P W/ Tobramycin 1gm - [id number] Start: 09-06-2012 Graft Bn Dbm 5ml Ptty Strl - [id number] Start: 09-29-2014 Brq-Bw-X-Kind Implant - [id number] Start: 09-06-2012 Comment on above: Description: 17mm x 100mm stem ext (david [id number]) Kod-Vk-P-Kind Implant - [id number] Start: 09-06-2012 Comment on above: Description: 6 Tibia comp plate (david [id number]) Tbh-Yd-E-Kind Implant - [id number] Start: 09-06-2012 Comment on above: Description: left F Femur comp. (david [id number]) Zzk-Co-T-Kind Implant - [id number] Start: 09-06-2012 Comment on above: Description: 12mm ti bial insert (david [id number]) articulate srfc 3.5 Mm 20mm Eugenio ex Screw [id number] Start: 09-29-2014 3.5mm 22mm Augusto x Screw [id number] Start: 09-29-2014 2.7mm 24mm Locki ng Screw [id number] Start: 09-29-2014 Prosthesis Mozelle 3mm Titanium 3-7mm [place] Total Center Shoe Ear - [id number] Start: 11-03-2019 Spcr Fem 75mm Kn Mold - [id number] Start: 06-04-2012 Spcr Demarcus Stg1 Si l 75mm Tib Kn - [id number] Start: 06-04-2012 Ext Stem 30mm 75 mm 15mm Str - [id number] Start: 09-06-2012 Comment on above: Description: extensi on stem 30mm-78-15 (david [id number]) Shld Hinge Sgmnt l Svc Kit Sz F - [id number] Start: 06-05-2014 Srfc Artc 17mm F Tib Kn Seg - [id number] Start: 06-05-2014 Restric Demarcus Unv Rev Insrt - [id number] Start: 09-06-2012 Plate 112mm Ss S tr Fus Lcp Bn - [id number] Start: 09-29-2014 Screw Bn 2.7mm 16mm Lcp Ss - [id number] Start: 09-29-2014 Screw Bn 2.7mm 16mm Lcp Ss Sm - [id number] Start: 09-29-2014 Screw Bn 3.5mm 20mm Lcp Ss - [id number] Start: 09-29-2014 Screw Bn 3.5mm 24mm Lcp Ss - [id number] Start: 09-29-2014 Clinical Notes 07-12-2012 to 08-31-2023 Rickie Henderson RN - 06/08/2023 9:00 AM Jerad Henderson RN - 06/08/2023 9:00 AM EDT Note Date & Type Note Facility 08-31-2023 Note This is a Telehealth Appointment *This visit was conducted via Telehealth with real time interactive synchronized audio and video communication. The patient provided written consent for treatment. The patient understands their rights, the HIPAA risks and that they will be charged accordingly for the services rendered. The patient was seen via telemedicine while they were at: _[place] This telemedicine visit was conducted due to: transport_ Chief Complaint Hospital follow up Right prosthetic knee joint infection History of Present Illness Telehealth visit follow-up for prosthetic right knee infection. Initial replacement June 25. Poly exchange July 22. Cultures negative. Discharged with IV ceftriaxone and vancomycin through 1114. States he is feeling okay. No fever or chills. Pain not an issue. Able to ambulate okay. No complications of antibiotics. PICC line has been okay. Review of Systems Other review system negative except sugars running high. Physical Exam Blood pressure marginal but appears asymptomatic. Sclera and conjunctiva look normal. Skin color looks okay. No respiratory distress. Right arm PICC line site okay. Right knee incision well-healed. Mild swelling noted. He does note some mild warmth on touching it. Additional Vitals No qualifying data available. Assessment/Plan 1. Infection of prosthetic right knee joint We will discontinue IV antibiotics on the . These fax orders to group home: 1. Recheck with me in 1 month 2. Okay to discontinue antibiotics on September 02 3. Okay to discontinue PICC line after antibiotics done. 4. Doxycycline 100 mg p.o. twice daily through January 21, 2024-please see where he wants outpatient oral antibiotics sent to 2. Type 2 diabetes mellitus Encouraged better control of sugars to promote healing. Medical Decision Making Chronic conditions NOT treated during this visit that affected my overall medical decision making: [] Treatment plans discussed but not opted for at this time: [] Prescribed medication that requires intensive monitoring for toxicity: [] I have reviewed the patient?s medication list for medication interactions/contraindications and/or for upcoming procedures: [yes or no] Time Spent with the Patient I have personally spent [] minutes on this date, directly related to today's patient visit, including pre and post visit work, for this date of service. Time listed does not include time spent on separately billable services. Problem List/Past Medical History Ongoing Anemia due to blood loss Anxiety Atrophy of thyroid COPD with emphysema Depression Generalized muscle weakness History of gout Hypertension Status post right knee replacement Type 2 diabetes mellitus Historical No qualifying data Procedure/Surgical History Transmetatarsal amputation Total replacement of left knee joint (10/19/2017) Application Wound Vac (Right, Knee) (07/22/2023) Incision and Drainage Knee with Poly Exchange (Right, Knee) (07/22/2023) Medications acetaminophen 325 mg oral capsule, 325 mg= 1 caps, Oral, q4hr, PRN amLODIPine 5 mg oral tablet, 5 mg= 1 tabs, Oral, Daily atorvastatin 10 mg oral tablet, 10 mg= 1 tabs, Oral, Daily Breo Ellipta 100 mcg-25 mcg/inh inhalation powder, 1 puffs, Inhale, Daily Calmoseptine 0.44%-20.6% topical ointment, as directed QD and QD PRN cefTRIAXone, 2 g, IV, Daily clonazePAM 1 mg oral tablet, 1 mg= 1 tabs, Oral, TID fluticasone 50 mcg/inh nasal spray, 1 sprays, Nasal, qAM gabapentin 300 mg oral capsule, 600 mg= 2 caps, Oral, TID glimepiride 4 mg oral tablet, 4 mg= 1 tabs, Oral, BID hydrOXYzine hydrochloride 50 mg oral tablet, 50 mg= 1 tabs, Oral, TID levothyroxine 125 mcg (0.125 mg) oral tablet, 125 mcg= 1 tabs, Oral, Daily lisinopril 20 mg oral tablet, 20 mg= 1 tabs, Oral, Daily loratadine 10 mg oral tablet, 10 mg= 1 tabs, Oral, Daily meloxicam 7.5 mg oral tablet, 7.5 mg= 1 tabs, Oral, Daily metFORMIN 850 mg oral tablet, 850 mg= 1 tabs, Oral, BID oxyCODONE, 5 mg, Oral, q4hr, PRN prazosin 1 mg oral capsule, 1 mg= 1 caps, Oral, Daily saccharomyces boulardii lyo 250 mg oral capsule, 250 mg= 1 caps, Oral, Daily Senna Plus, 1 tabs, Oral, BID vancomycin, 2 g, IV Push, q12hr venlafaxine 150 mg oral capsule, extended release, 150 mg= 1 caps, Oral, Daily Allergies No Known Medication Allergies Social History Alcohol Never Substance Abuse Denies All Tobacco Former smoker, quit more than 5 years ago Use:. Immunizations Vaccine Date Status influenza virus vaccine, inactivated 07/23/2023 Given SARS-CoV-2 (COVID-19) mRNA-1273 bivalent 08/02/2022 Recorded influenza virus vaccine, inactivated 07/20/2022 Recorded SARS-CoV-2 (COVID-19) mRNA-1273 vaccine 08/12/2021 Recorded influenza virus vaccine, inactivated 07/28/2021 Recorded SARS-CoV-2 (COVID-19) mRNA-1273 vaccine 02/01/2021 Recorded Comments : 2023-08-31: [id number] SARS-CoV-2 (COVID-19) mRNA-1273 vaccine 01/04/2021 Recorded Comments (more content not included)... [facility] 08-13-2023 Note This is a Telehealth Appointment *This visit was conducted via Telehealth with real time interactive synchronized audio and video communication. The patient provided written consent for treatment. The patient understands their rights, the HIPAA risks and that they will be charged accordingly for the services rendered. The patient was seen via telemedicine while they were at: [facility] This telemedicine visit was conducted due to: And group home transportation_ Chief Complaint telehealth: hosp f/u R prosthetic knee joint infection History of Present Illness 68-year-old being seen today hospital follow-up for right prosthetic knee infection. Labs reviewed from 08/10 white blood cells look okay, platelets look okay, inflammation markers sed rate normal and CRP continues to trend down. Liver enzymes and electrolytes all look okay. Overall, is doing okay. Does report he has pain in his right knee is on oxycodone which seems to help manage his symptoms. Denies any fevers or chills. Has his PICC line in place. No complaints with that. Denies any nausea, vomiting or diarrhea. Denies any tinnitus. Tolerating wound VAC without complications. Does report he is doing physical therapy notices more pain after that. No chest pain or heart palpitations does not feel short of breath. No complaints on urination. Patient reports he underwent a right total knee replacement 06/25/2023. [1] became infected. Ultimately Dr. Mcgowan orthopedic surgeon took patient to the OR on 07/22 for revision of right total knee with poly exchange and application of wound VAC. Cultures all remain negative. Patient discharged to [facility] on on IV Rocephin and vancomycin anticipated stop is 09/02. Review of Systems All systems have been reviewed and are negative other than those listed in the HPI Physical Exam Vitals reviewed. Patient no apparent distress. Conjunctiva and sclera is normal. Trach is midline. Respiratory effort is even and unlabored no audible wheezes heard during exam. Not able to visualize right knee due to covered with dressing and wound VAC. PICC line right upper arm no redness or swelling noted around site. Patient is normal in color. Answers questions appropriately. Additional Vitals BP Position/Location: Sitting, Left arm Assessment/Plan 1. Infection of prosthetic right knee joint Plan: We will continue to monitor weekly labs. Continue Rocephin and vancomycin. Anticipated stop is 09/02. Continue to follow orthopedic team Return to clinic 2 weeks. Instructions to the patient: If condition worsens in any way or you develop any signs or symptoms of infection please notify the office right away. Patient verbalizes understanding. Call for questions. Medical Decision Making Chronic conditions NOT treated during this visit that affected my overall medical decision making: [Anxiety, COPD, depression, hypertension, type 2 diabetes] Treatment plans discussed but not opted for at this time: [] Prescribed medication that requires intensive monitoring for toxicity: [Rocephin and vancomycin] I have reviewed the patient?s medication list for medication interactions/contraindications and/or for upcoming procedures: [Yes Time Spent with the Patient I have personally spent [25] minutes on this date, directly related to today's patient visit, including pre and post visit work, for this date of service. Time listed does not include time spent on separately billable services. 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 (10/19/2017) Application Wound Vac (Right, Knee) (07/22/2023) Incision and Drainage Knee with Poly Exchange (Right, Knee) (07/22/2023) Medications acetaminophen 325 mg oral capsule, 325 mg= 1 caps, Oral, q4hr, PRN amLODIPine 5 mg oral tablet, 5 mg= 1 tabs, Oral, Daily atorvastatin 10 mg oral tablet, 10 mg= 1 tabs, Oral, Daily Breo Ellipta 100 mcg-25 mcg/inh inhalation powder, 1 puffs, Inhale, Daily cefTRIAXone, 2 g, IV, Daily clonazePAM 1 mg oral tablet, 1 mg= 1 tabs, Oral, TID enoxaparin 40 mg/0.4 mL injectable solution, 40 mg= 0.4 mL, Subcutaneous, Daily fluticasone 50 mcg/inh nasal spray, 1 sprays, Nasal, qAM gabapentin 300 mg oral capsule, 600 mg= 2 caps, Oral, TID glimepiride 4 mg oral tablet, 4 mg= 1 tabs, Oral, BID hydrOXYzine hydrochloride 50 mg oral tablet, 50 mg= 1 tabs, Oral, TID levothyroxine 125 mcg (0.125 mg) oral tablet, 125 mcg= 1 tabs, Oral, Daily lisinopril 20 mg oral tablet, 20 mg= 1 tabs, Oral, Daily loratadine 10 mg oral tablet, 10 mg= 1 tabs, Oral, Daily meloxicam 7.5 mg oral tablet, 7.5 mg= 1 tabs, Oral, Daily metFORMIN 850 mg oral tablet, 850 mg= 1 tabs, Oral, BID oxyCODONE, 5 mg, Oral, q6hr, (more content not included)... [facility] 07-30-2023 Note Admission Informatio n Patient: Joie Lu : 1955 Date of Admission: 07/21/2023 19:33:54 Date of Discharge: 07/30/2023 14:30:00 Code Status: Full Resuscitation PCP: Consult: Cynthia WALLIS, Starla Delcid; Rubina WATERMAN, Johnny Mcgowan MD, Justin Villasenor Follow Up with Provider: With: Address: When: Justin Mcgowan [address] [place] [address] [phone] Business (1) In 2 weeks Brief Hospital Course Summary: This is a 68 Years old Male who originally underwent a right knee replacement with Dr. Paniagua proximately 3 weeks ago. He initially reported to [facility] ER after increasing the pain became unbearable accompanied by significant swelling/edema. Dr. Mcgowan recommended transfer to [facility] ER, therefore patient arrived via EMS. Medical history includes diabetes, hypertension, hyperlipidemia, hypothyroidism and obesity. Patient is admitted for postop infection of the right knee s/p knee replacement approximately [address] Paniauga. Underwent revision right TKA on 07/[address] Mcgowan. Discussed discharge plan of care with patient at bedside, all questions answered, patient is discharged in stable condition. Assessment and discharge plan #Postop infection of the right knee s/p knee replacement. #S/p I&D right total knee arthroplasty with wound VAC in place - wound care/ PICC/ Pain control - POD #8 --Currently on IV Rocephin and vancomycin to be completed 09/02 per ID, continued upon discharge #Anemia--hemoglobin is stable #Diabetes mellitus without long-term use of insulin -Continue home medications as prescribed, patient was receiving basal insulin during hospitalization, recommend follow-up with PCP for consideration of insulin outpatient. #Hypertension #Hyperlipidemia #Hypothyroidism Disposition--discharge to [facility]. Medications New Medications Printed Prescriptions enoxaparin (enoxaparin 40 mg/0.4 mL injectable solution) 0.4 Milliliter Subcutaneous (under the skin) every day for 30 Days. Refills: 0. Last Dose: oxyCODONE (oxyCODONE 5 mg oral tablet) 5 Milligram Oral (given by mouth) every 6 hours as needed as needed for pain for 5 Days. Refills: 0. Last Dose: Medications That Have Not Changed Other Medications amLODIPine (amLODIPine 5 mg oral tablet) 1 Tabs Oral (given by mouth) every day. Last Dose: atorvastatin (atorvastatin 10 mg oral tablet) 1 Tabs Oral (given by mouth) every day. Last Dose: clonazePAM (clonazePAM 1 mg oral tablet) 1 Tabs Oral (given by mouth) 3 times a day. Scheduled. Last Dose: fluticasone nasal (fluticasone 50 mcg/inh nasal spray) 1 Sprays Nasal (into the nose) once a day (in the morning). Last Dose: fluticasone-vilanterol (Breo Ellipta 100 mcg-25 mcg/inh inhalation powder) 1 Puffs Inhale (breathe in) every day. Last Dose: gabapentin (gabapentin 300 mg oral capsule) 2 Capsules Oral (given by mouth) 3 times a day. Scheduled. Last Dose: glimepiride (glimepiride 4 mg oral tablet) 1 Tabs Oral (given by mouth) 2 times a day. Last Dose: hydrOXYzine (hydrOXYzine hydrochloride 50 mg oral tablet) 1 Tabs Oral (given by mouth) 3 times a day. Scheduled. Last Dose: levothyroxine (levothyroxine 125 mcg (0.125 mg) oral tablet) 1 Tabs Oral (given by mouth) every day. Last Dose: lisinopril (lisinopril 20 mg oral tablet) 1 Tabs Oral (given by mouth) every day. Last Dose: loratadine (loratadine 10 mg oral tablet) 1 Tabs Oral (given by mouth) every day. Last Dose: meloxicam (meloxicam 7.5 mg oral tablet) 1 Tabs Oral (given by mouth) every day. Last Dose: metFORMIN (metFORMIN 850 mg oral tablet) 1 Tabs Oral (given by mouth) 2 times a day. Last Dose: prazosin (prazosin 1 mg oral capsule) 1 Capsules Oral (given by mouth) every day. Last Dose: venlafaxine (venlafaxine 150 mg oral capsule, extended release) 1 Capsules Oral (given by mouth) every day. Last Dose: These Medications Were Removed and Should No Longer Be Taken amoxicillin-clavulanate (amoxicillin-clavulanate 875 mg-125 mg oral tablet) 1 Tabs Oral (given by mouth) every 12 hours for 10 Days. Stop Taking Reason: Physician Request hydrocodone-acetaminophen (hydrocodone-acetaminophen 5 mg-325 mg oral tablet) 1 Tabs Oral (given by mouth) every 6 hours as needed as needed for pain. Stop Taking Reason: Physician Request Discharge Plan As noted above in hospital course summary Patient Discharge Condition Stable Discharge Disposition [facility] Objective Vitals & Measurements T: 36.6 ?C (Oral) HR: 70 (Monitored) RR: 16 BP: 112/69 SpO2: 96% HT: 194 cm WT: 142.5 kg BMI: 36.19 Additional Vitals N (more content not included)... [facility] 07-24-2023 Note Procedure: Portable AP chest radiograph following peripherally inserted central catheter (PICC) insertion. Inserted by: Niya RN. PICC type: 4 Surinamese single lumen Power PICC Solo. Puncture site: Right basilic vein. Arm circumference: 35 cm. Length: 44 cm. Amount left out: None. Tip placement: Proximal superior vena cava (SVC). Clinical History: 68-year-old male with wound infection and long-term antibiotics. Comparison: Chest radiograph 10/13/2022. Findings: Lines/tubes/devices: Right upper extremity PICC in adequate position terminating in the proximal SVC. Lungs/pleura: Linear right perihilar opacity, probable atelectasis. Similar elevation of the right hemidiaphragm. No pneumothorax or evidence for pleural effusion. Heart/mediastinum: Unremarkable silhouette. Bones/soft tissues: No gross acute or aggressive abnormality. IMPRESSION: 1. New right upper extremity PICC in adequate position. 2. Linear right perihilar probable atelectasis. Final Dictated by: Chris Lamar MD Dictated DT/TM: 07/24/2023 10:01 am Signed by: Chris Lamar MD Signed (Electronic Signature): 07/24/2023 10:04 am (If Report Is Signed, Electronically Signed in Other Vendor System) [facility] 07-22-2023 Note Indication for Surge ry Patient is a 68-year-old male who presented for evaluation of right knee pain. Patient underwent right total knee arthroplasty 06/25/2023. He was doing well at his 2-week appointment but noted proximately 1 week ago to have increasing pain and swelling in his knee. He began having drainage a couple days ago. On admission he was noted to have elevated inflammatory markers and serosanguineous fluid draining from his knee. On exam there was evidence of disruption of his medial arthrotomy. Given the drainage from his wound discussion was had with patient regarding return to the OR for irrigation debridement with revision of tibial polyethylene. Discussed procedure, risk, benefits, alternatives include but not limited to bleeding, infection, neurovascular injury, failure, stiffness, VTE, continued pain, need for additional surgery, and risk of anesthesia. Patient understood the risks and elected to proceed with surgery. Preoperative Diagnosis 1. Painful right total knee arthroplasty 2. Draining right total knee arthroplasty wound dehiscence Postoperative Diagnosis 1. Painful right total knee arthroplasty 2. Draining right total knee arthroplasty with wound dehiscence 3. Infection right total knee arthroplasty Operation 1. Revision right total knee arthroplasty tibial polyethylene 2. Application of wound VAC right knee 30 cm x 0.5 cm x 0.5 cm Surgeon(s) Justin Mcgowan MD Business Technology Architect Daniel HINSON, Mimi Bright (Maternity Floor Supervisor) Anesthesia General Sylvia WATERMAN, Luke Marx (Sack Cleaner) Isrrael Escobar (Provider) Zee KO, Harley Anna (Provider) Estimated Blood Loss 300 mL Urine Output 0 mL Findings Disruption of medial arthrotomy. Large serosanguineous hematoma within the knee. Stable total knee arthroplasty. Specimen(s) Sterile Body Fluid Culture (superficial synovial fluid #1,Fluid Synovial,Knee R) Anaerobic Culture (superficial synovial fluid #1,Wound,Knee R) Culture Fungal (superficial synovial fluid #1,Fluid Synovial,Knee R) Anaerobic Culture (synovial fluid #2,Fluid Synovial,Knee R) Sterile Body Fluid Culture (Fluid Synovial,Knee R) Culture Fungal (synovial tissue #1,Tissue,Knee R) Anaerobic Culture (synovial tissue #2,Tissue,Knee R) Culture Fungal (synovial tissue #2,Tissue,Knee R) Anaerobic Culture (synovial tissue #3,Tissue,Knee R) Culture Fungal (synovial tissue #3,Tissue,Knee R) Culture Fungal (superficial synovial fluid #2,Fluid Synovial,Knee R) Anaerobic Culture (synovial tissue #1,Tissue,Knee R) Sterile Body Sites Culture (synovial tissue#1,Tissue,Knee R) Sterile Body Sites Culture (synovial tissue#2,Tissue,Knee R) Sterile Body Sites Culture (synovial tissue #3,Tissue,Knee R) Culture Fungal (synovial tissue #4,Tissue,Knee R) Anaerobic Culture (synovial tissue #4,Tissue,Knee R) Sterile Body Sites Culture (synovial tissue #4,Tissue,Knee R) Complications None Technique Implants: Bronson persona 13 mm size J12 PS tibial polyethylene Procedure: Patient was identified and greeted the preoperative holding area. The correct surgical site was identified and marked. Surgical consent was obtained and placed in the chart. Patient was taken the operative suite transported the operative table. Patient received general anesthetic per anesthesia. Patient received preoperative IV Ancef. A tourniquet was placed in the right lower extremity. Right lower extremity was sterilely prepped and draped. Surgical timeout was performed confirming correct surgical site, patient, and procedure. [place] exsanguination was used and tourniquet was inflated to 250 mmHg. Patient's prior midline incision was used. Incision was carried down through skin and subcutaneous tissue. There was a large serosanguineous seroma hematoma noted within the knee. Fluid was taken and sent for cell count and culture. The knee was taken into full extension and full-thickness medial lateral flaps were elevated. The subcutaneous tissue was sharply debrided with a hinojosa elevator. The arthrotomy was then further opened proximal and distal in order to access the knee. Synovial tissue and fluid was sent for cell count and culture. The knee was taken into full extension. Mandeep clamps were placed on the joint capsule. Synovectomy was performed starting in the medial gutter and extending around to the suprapatellar pouch and the medial gutter. Synovial tissue was taken and sent for tissue culture. Following thorough debridement of the knee the tibial polyethylene was removed. Additional debridement was performed of the posterior knee and the notch. The knee was then well irrigated with 3 L normal saline. A trial tibial polyethylene was placed back in the knee up to 13 mm with good stability with varus and valgus stress. The trial was removed. The knee was well irrigated with bactisure and 6 L normal saline. The final 13 mm PS tibial polyethylene was impacted in place and fully seated. The knee was taken through range of m (more content not included)... [facility] 07-22-2023 Note Ok to work w/ pt per RN. Pt in bed sleeping upon arrival. Awakens to name. Education regarding purpose of PT services. Pt agreeable to work with PT, however request PT to come back a bit later in the morning. Pt falling asleep during conversation. Will return as able. Thank you. Electronically signed by Surekha Haley 07/22/23 09:07 EDT [facility] 07-22-2023 Note Chief Complaint Transfer from [facility] secondary to postop infection Assessment/Plan Brief Hospital Course Summary: This is a 68 Years old Malewho originally underwent a right knee replacement with Dr. Paniagua proximately 3 weeks ago. He initially reported to [facility] ER after increasing the pain became unbearable accompanied by significant swelling/edema. Dr. Mcgowan recommended transfer to [facility] ER, therefore patient arrived via EMS. Medical history includes diabetes, hypertension, hyperlipidemia, hypothyroidism and obesity. Patient is admitted for postop infection of the right knee s/p knee replacement approximately [address] Paniagua. Assessment: _ Postop infection of the right knee s/p knee replacement Diabetes mellitus without long-term use of insulin Hypertension Hyperlipidemia Hypothyroidism Obesity, BMI 36.19 kg/m? Remote history of smoking Plan: Admit to surgical floor Monitor vitals closely including pulse oximetry Oxygen as needed via nasal cannula to maintain SpO2 > 90% Cardiac/ADA diet. N.p.o. after midnight Imaging completed prior to transfer, see chart CBC, BMP and Mag daily Monitor blood sugar AC/at bedtime and as needed Do not initiate antibiotic therapy until seen by Ortho for aspiration Dr. Mcgowan Hold metformin, insulin sliding scale for glycemic control Resume other home medications as ordered SCDs and subcutaneous heparin for DVT prophylaxis PT/OT evaluation for discharge recommendations Social work consult for discharge planning Pubic surgery consult, Dr. Mcgowan aware and following Discussion: I discussed with the patient, family, patient's nurse, and care transition about the patient's plan of care. I reviewed other provider notes. DVT prophylaxis: Heparin prophylactic dose Nino catheter/Nasogastric tube/Central lines/Drain: No Follow up plan after Discharge: Needs outpatient follow up for _ with the Primary Care and or Consulting provider within two to four weeks. Medical Decision Making: Number of Problems Addressed: 3 acute and or chronic stable illnesses. Data Reviewed/Analyzed: high >3 I reviewed results of the laboratory tests, did my independent review of the films on imaging and or EKG which was reported by another physician. I agreed with the findings. I did have prior medical records to review for comparison. Complication: ongoing monitoring for worsening symptoms, prescription drug therapy monitoring for interactions, toxicity. Medical necessity for ongoing hospitalization: ongoing workup for active diagnosis Total Time Spent in patient care: approximately 55 minutes. Code Status: Full Resuscitation History of Present Illness Mr. Joie Lu is a 68-year-old male who originally underwent a right knee replacement with Dr. Paniagua proximately 3 weeks ago. He initially reported to [facility] ER after increasing the pain became unbearable accompanied by significant swelling/edema. Dr. Mcgowan recommended transfer to [facility] ER, therefore patient arrived via EMS. Medical history includes diabetes, hypertension, hyperlipidemia, hypothyroidism and obesity. Patient has remote history of smoking with cessation greater than 5 years ago. He denies alcohol illicit drug use. Blood work upon arrival was significant for sodium 129, glucose 177, WBC 13.7, hemoglobin 12.8, hematocrit 38.0, magnesium 1.7 and CRP 24.09. [facility] chart reviewed. No further imaging indicated at this time. Patient seen and examined upon arrival to nursing unit with no signs or symptoms of acute cardiopulmonary distress noted on room air. He continues to complain of knee pain. Knee appears red and warm to touch with significant edema. Patient otherwise denies chest pain, shortness of breath at rest, nausea, vomiting and fever/chills. Plan of care discussed at length questions answered. He is agreeable to admission for further evaluation and treatment. Review of Systems 10 point ROS done and negative except what is mentioned subjective interview. Objective General: Alert and oriented, in no acute distress. Neck: Supple, non-tender, no carotid bruits, no JVD. Lungs: Clear diminished bases bilaterally, non-labored respiration on room air. Heart: Tachycardic at times. Otherwise normal rate, regular rhythm, S1-S2, no murmur, gallop or edema. Abdomen: Soft, non-tender, non-distended, normal bowel sounds. Extremities: Right knee erythema, warmth and edema Skin: Skin is warm, dry and pink. Neurologic: Awake, alert, and oriented X3. No focal deficits noted. Psychiatric: Calm and cooperative, appropriate mood and affect. Vitals & Measurements T: 36.8 ?C (Oral) TMIN: 36.8 ?C (Oral) TMAX: 37.7 ?C (Oral) HR: 91 (Peripheral) RR: 16 BP: 117/73 SpO2: 91% HT: 194 cm WT: 136.2 kg (Dosing) WT: 136.2 kg BMI: 36.19 Additional Vitals No qualifying data available. Problem List/Past Medical History Ongoing No qualifying data Historical (more content not included)... [facility] 06-08-2023 History of Present illness Narrative PAT left message with patient regarding not showing for 9am PAT appt. Awaiting response. Message left with Julissa at Dr Mcgowan's office regarding patient not showing up for PAT visit. 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 Author Type: Physician Business Technology Architect Type: Progress Notes Filed: 01/27/2023 7:05 PM Note Text: History of Present Illness Mr. 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 The following information above was copied, reviewed and is still up to date. Last seen 08/20/2022. Since last seen, Three days ago the right ear started to flare up and it feels full. Also having some pain. Feels like he is swallowing a golf ball on the right side of his throat. Started having drainage too. Reports a clear drainage. Feels like there is water in the ears. Hearing Loss: Feels like it is stable, no worsening hearing. Tinnitus: denies Dizziness/Imbalance: denies Facial Numbness, Weakness or Tingling: denies ALLERGIES Allergen Reactions Morphine Rash, Itching Bee Sting Swelling, Anaphylaxis Penicillins Itching Current Outpatient Medications on File Prior to Visit Medication Sig azelastine (ASTELIN, ASTEPRO) 0.1% nasal spray 1 spray in each nostril twice daily for 30 days atorvastatin (LIPITOR) 10 mg tablet Take 10 mg by mouth once daily. busPIRone (BUSPAR) 15 mg tablet Take 15 mg by mouth three times daily. gabapentin (NEURONTIN) 300 mg capsule Take 300 mg by mouth three times daily. venlafaxine ER (EFFEXOR XR) 150 mg 24 hr capsule Take 150 mg by mouth once daily. prazosin (MINIPRESS) 1 mg cap Take 1 mg by mouth twice daily. cloNIDine HCl (CATAPRES) 0.1 mg tablet Hydrochlorothiazide 12.5 mg capsule hydrochlorothiazide 12.5 mg capsule meloxicam (MOBIC) 15 mg tablet Take 1 tablet by mouth once daily. glimepiride (AMARYL) 4 mg tablet Take 4 mg by mouth daily with breakfast. lisinopril (ZESTRIL, PRINIVIL) 10 mg tablet Take 10 mg by mouth once daily. vortioxetine (TRINTELLIX) 20 mg tablet Take by mouth. tiotropium bromide (SPIRIVA RESPIMAT) 2.5 mcg/actuation inhaler Inhale as instructed. fluticasone-vilanterol (BREO ELLIPTA) 100-25 mcg/dose inhaler Inhale 1 Inhalation as instructed once daily. Levothyroxine 112 mcg cap Take by mouth. metFORMIN (GLUCOPHAGE) 1,000 mg tablet Take 1 tablet by mouth twice daily. multivitamin tablet Take 1 tablet by mouth once daily. aspirin 81 mg chewable tablet Take 1 tablet by mouth twice daily. amLODIPine (NORVASC) 10 mg tablet Take 1 tablet by mouth once daily. clonazePAM (KLONOPIN) 1 mg tablet Take 1 tablet by mouth three times daily for 90 days. oxyCODONE-acetaminophen (PERCOCET) 5-325 mg tablet Take 1 tablet by mouth every 8 hours as needed for pain. (Patient not taking: No sig reported) ofloxacin (FLOXIN) 0.3 % otic solution Use 3 Drops in the ears twice daily. (Patient not taking: No sig reported) loratadine (CLARITIN) 10 mg tablet Take 10 mg by mouth once daily. ofloxacin (OCUFLOX) 0.3 % ophthalmic solution 3 drops to right ear twice daily, use concurrently with Dexamethasone (Patient not taking: No sig reported) zolpidem (AMBIEN) 10 mg tab Take by mouth at bedtime as needed. (Patient not taking: No sig reported) No current facility-administered medications on file prior to visit. Objective: There were no vitals taken for this visit. Appearance: Non-syndromic, cooperative and calm Communication: Voice has adequate volume; there is no stridor Head/Face: head and facial contours are symmetric Facial nerve 1/6 bilateral Skin: no skin lesions or scarring on face Ears: AD External auditory canal is patent. TM is thick with possible effusion anteriorly. No infection noted. Removed impacted cerumen. External auditory canal is patent. TM is clear and intact. 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 To continue taking three times daily. Continue with Flonase and Astelin as directed by rhinology. Medrol dose pack given to patient for possible effusion. Okay to take OTC pain medication for the ear. Follow up with Rhinology as scheduled. Follow up in 6 months. Orders: Office Visit on 01/27/23 clonazePAM (KLONOPIN) 1 mg tablet methylPREDNISolone (MEDROL DOSE-PACK) 4 mg Dose-Pack Procedures: CERUMEN REMOVAL: Cerumen was rem (more content not included)...[facility] 01-27-2023 Instructions* Patient Instructions* Partha Jackson PA-C - 01/27/2023 11:48 AM EDT PLAN: -Continue with the Flonase -Continue with the Astelin -Take Medrol Dose Pack, this is a steroid, can increase your blood sugars. Please monitor -Sent refill of the Klonopin -Take Tylenol and Ibuprofen for the pain as well -Follow up with Dr. Macdonald as scheduled [facility] History of Present illness Narrative* Partha Jackson PA-C - 01/27/2023 11:34 AM EDT History of Present Illness Mr. JOIE LU is a 67 year old male old male with a history of conductive hearing losswith ossicular chain reconstruction and TORP prothesis on the right completed 10/2019, with revisionon 07/15/21. 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 The following information above was copied, reviewed and is still up to date. Last seen 08/20/2022. Since last seen, Three days ago the right ear started to flare up and it feels full. Also having some pain. Feels like he is swallowing a golf ball on the right side of his throat. Started having drainage too. Reports a clear drainage. Feels like there is water in the ears. Hearing Loss: Feels like it is stable, no worsening hearing. Tinnitus: denies Dizziness/Imbalance: denies Facial Numbness, Weakness or Tingling: denies ALLERGIES Allergen Reactions Morphine Rash, Itching Bee Sting Swelling, Anaphylaxis Penicillins Itching Current Outpatient Medications on File Prior to Visit Medication Sig azelastine (ASTELIN, ASTEPRO) 0.1% nasal spray 1 spray in each nostril twice daily for 30 days atorvastatin (LIPITOR) 10 mg tablet Take 10 mg by mouth once daily. busPIRone (BUSPAR) 15 mg tablet Take 15 mg by mouth three times daily. gabapentin (NEURONTIN) 300 mg capsule Take 300 mg by mouth three times daily. venlafaxine ER (EFFEXOR XR) 150 mg 24 hr capsule Take 150 mg by mouth once daily. prazosin (MINIPRESS) 1 mg cap Take 1 mg by mouth twice daily. cloNIDine HCl (CATAPRES) 0.1 mg tablet Hydrochlorothiazide 12.5 mg capsule hydrochlorothiazide 12.5 mg capsule meloxicam (MOBIC) 15 mg tablet Take 1 tablet by mouth once daily. glimepiride (AMARYL) 4 mg tablet Take 4 mg by mouth daily with breakfast. lisinopril (ZESTRIL, PRINIVIL) 10 mg tablet Take 10 mg by mouth once daily. vortioxetine (TRINTELLIX) 20 mg tablet Take by mouth. tiotropium bromide (SPIRIVA RESPIMAT) 2.5 mcg/actuation inhaler Inhale as instructed. fluticasone-vilanterol (BREO ELLIPTA) 100-25 mcg/dose inhaler Inhale 1 Inhalation as instructed once daily. Levothyroxine 112 mcg cap Take by mouth. metFORMIN (GLUCOPHAGE) 1,000 mg tablet Take 1 tablet by mouth twice daily. multivitamin tablet Take 1 tablet by mouth once daily. aspirin 81 mg chewable tablet Take 1 tablet by mouth twice daily. amLODIPine (NORVASC) 10 mg tablet Take 1 tablet by mouth once daily. clonazePAM (KLONOPIN) 1 mg tablet Take 1 tablet by mouth three times daily for 90 days. oxyCODONE-acetaminophen (PERCOCET) 5-325 mg tablet Take 1 tablet by mouth every 8 hours as needed for pain. (Patient not taking: No sig reported) ofloxacin (FLOXIN) 0.3 % otic solution Use 3 Drops in the ears twice daily. (Patient not taking: Nosig reported) loratadine (CLARITIN) 10 mg tablet Take 10 mg by mouth once daily. ofloxacin (OCUFLOX) 0.3 % ophthalmic solution 3 drops to right ear twice daily, use concurrently with Dexamethasone (Patient not taking: No sig reported) zolpidem (AMBIEN) 10 mg tab Take by mouth at bedtime as needed. (Patient not taking: No sig reported) No current facility-administered medications on file prior to visit. Objective: There were no vitals taken for this visit. Appearance: Non-syndromic, cooperative and calm Communication: Voice has adequate volume; there is no stridor Head/Face: head and facial contours are symmetric Facial nerve 1/6 bilateral Skin: no skin lesions or scarring on face Ears: AD External auditory canal is patent. TM is thick with possible effusion anteriorly. No infection noted. Removed impacted cerumen. External auditory canal is patent. TM is clear and intact. 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 To continue taking three times daily. Continue with Flonase and Astelin as directed by rhinology. Medrol dose pack given to patient for possible effusion. Okay to take OTC pain medication for the ear. Follow up with Rhinology as scheduled. Follow up in 6 months. Orders: Office Visit on 04/11/23 clonazePAM (KLONOPIN) 1 mg tablet methylPREDNISolone (MEDROL DOSE-PACK) 4 mg Dose-Pack Procedures: CERUMEN REMOVAL: Cerumen was removed under otomicroscopy from the Left ear with curette, alligator forceps. Preop diagnosis: Cerumen impaction. It cannot be removed without magnification and multiple instrumentations requiring physician surgical supply assistant skills. Postoperative diagnosis: same Partha Jackson PA-C January 27, 2023 7:01 PM Medical Decision Making: Problems: Moderate: 2+ stable chronic illnesses Risk: Moderate: Drug management Medical Decision Making Level: 4 - Moderate documented in this encounterBl[facility]04-[facility]23 Nurse Note* Judy Pacheco Ma - 01/27/2023 11:19 AM EDT Tobacco Use: .5 packs/day, for 1 years. Quit 02/15/1982. Types: Cigarettes Was smoking cessation packet given? N/A - Patient is a non-smoker or quit >1 year ago. 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 * Telephone Encounter - Aby Combs RN - 11/06/2022 2:27 PM EST Patient calling in with update since appt on 10/31/22. Calling in today to report bilateral ear pain, left side worse than the other, sinus pain and pressure and severe headache. He is asking for an antibiotic to be sent to his local pharmacy. States he knows this is a sinus infection as he gets them frequently. Please advise. 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 Author Type: Physician Type: Progress Notes Filed: 10/31/2022 5:36 PM Note Text: SECTION OF RHINOLOGY, SINUS AND SKULL BASE SURGERY [place], [facility] NOTE HPI: Patient is a 67 year old male presenting for evaluation. He reports monthly sinus and ear infection. He has to put earplugs in his ear when taking a shower because when water gets in the ear, the infection starts. He c/o ear pressure He c/o congestion, Green mucous when blowing nose, pressure, and facial pressure. He has not seen an oral and maxillofacial surgery. Sinus issues has been going on since 2018. He uses Flonase every morning. He has no done irrigation PAST MEDICAL HISTORY Diagnosis Date Depression DM type 2 (diabetes mellitus, type 2) (HCC) Fracture Gout H/O Clostridium difficile infection 10/2012 History of cholecystectomy HTN (hypertension) Hyperlipidemia Hypothyroidism Osteomyelitis of knee region (HCC) left, s/p knee replacement Pain chronic PAST SURGICAL HISTORY Procedure Laterality Date ARTHROSCOPY KNEE DIAGNOSTIC W/WO SYNOVIAL BX SPX Arthroscopy, knee, arthroscopy and meniscectomy. CHOLECYSTECTOMY HX 1999 COLONOSCOPY HAND SURGERY HX Left LAMINECTOMY W/O FFD 1/2 VERT SEG LUMBAR 1986 Laminectomy, lumbar PAST SURGICAL HISTORY OF 02/16/2012 lumbar wound washout; hardware removal, Reopen of lumbar wound with debridement culture and removal of posterior segmental lumbar instrumentation and bone growth stimulators PAST SURGICAL HISTORY OF 02/23/2012 left knee I and D, Synovectomy PAST SURGICAL HISTORY OF 2011 Irrigation and debridement, Synovectomy, Preparation for knee replacement removing necrotic bone and Placement of temporary knee replacement,, Quadriceps plasty PAST SURGICAL HISTORY OF 09/06/2012 Revision total knee arthroplasty / Infected left knee, status post placement of antibiotic spacer PAST SURGICAL HISTORY OF 08/30/2006 Left knee arthroscopy with #1 chondroplasty, medial femoral condyle, patella, and trochlear groove PAST SURGICAL HISTORY OF 08/06/2006 Diagnoscopy, left knee PAST SURGICAL HISTORY OF 06/05/2014 Left TKA revision PAST SURGICAL HISTORY OF 08/2012 Left TKA PAST SURGICAL HISTORY OF 10/2019 TORP prosthesis of right FAMILY HISTORY Problem Relation Age of Onset other (suicide) Father Breast Cancer Mother brast Ca - age 66 other (Stomach Cancer) Mother Heart Brother Heart Attack - age 45 Anesthesia Problems No Family History Social History Tobacco Use Smoking status: Former Packs/day: 0.50 Years: 1.00 Pack years: 0.50 Types: Cigarettes Quit date: 02/15/1982 Years since quittin.7 Smokeless tobacco: Never Vaping Use Vaping Use: Never used Substance Use Topics Alcohol use: Not Currently Drug use: Never Comment: declines tx for drug/alcohol abuse in the past Current Outpatient Medications Medication Sig Dispense Refill clonazePAM (KLONOPIN) 1 mg tablet Take 1 tablet by mouth three times daily for 90 days. 270 tablet 1 oxyCODONE-acetaminophen (PERCOCET) 5-325 mg tablet Take 1 tablet by mouth every 8 hours as needed for pain. (Patient not taking: No sig reported) 3 tablet 0 ofloxacin (FLOXIN) 0.3 % otic solution Use 3 Drops in the ears twice daily. (Patient not taking: No sig reported) 10 mL 3 atorvastatin (LIPITOR) 10 mg tablet Take 10 mg by mouth once daily. busPIRone (BUSPAR) 15 mg tablet Take 15 mg by mouth three times daily. gabapentin (NEURONTIN) 300 mg capsule Take 300 mg by mouth three times daily. venlafaxine ER (EFFEXOR XR) 150 mg 24 hr capsule Take 150 mg by mouth once daily. loratadine (CLARITIN) 10 mg tablet Take 10 mg by mouth once daily. prazosin (MINIPRESS) 1 mg cap Take 1 mg by mouth twice daily. ofloxacin (OCUFLOX) 0.3 % ophthalmic solution 3 drops to right ear twice daily, use concurrently with Dexamethasone (Patient not taking: No sig reported) 1 Bottle 3 cloNIDine HCl (CATAPRES) 0.1 mg tablet Hydrochlorothiazide 12.5 mg capsule hydrochlorothiazide 12.5 mg capsule meloxicam (MOBIC) 15 mg tablet Take 1 tablet by mouth once daily. 30 tablet 0 glimepiride (AMARYL) 4 mg tablet Take 4 mg by mouth daily with breakfast. lisinopril (ZESTRIL, PRINIVIL) 10 mg tablet Take 10 mg by mouth once daily. zolpidem (AMBIEN) 10 mg tab Take by mouth at bedtime as needed. (Patient not taking: No sig reported) vortioxetine (TRINTELLIX) 20 mg tablet Take by mouth. tiotropium bromide (SPIRIVA RESPIMAT) 2.5 mcg/actuation inhaler Inhale as instructed. fluticasone-vilanterol (BREO ELLIPTA) 100-25 mcg/dose inhaler Inhale 1 Inhalation as instructed once daily. Levothyroxine 112 mcg cap Take by mouth. metFORMIN (GLUCOPHAGE) 1,000 mg tablet Take 1 tablet by mouth twice daily. 60 tablet 0 multivitamin tablet Take 1 tablet by mouth once daily. aspirin 81 mg chewable tablet Take 1 tablet (more content not included)... [facility]01-13-2023 History of Present illness Narrative* Saima Macdonald MD - 10/31/2022 9:19 AM EST Images from the original note were not included. SECTION OF RHINOLOGY, SINUS AND SKULL BASE SURGERY [place] NOTE HPI: Patient is a 67 year old male presenting for evaluation. He reports monthly sinus and ear infection. He has to put earplugs in his ear when taking a shower because when water gets in the ear, the infection starts. He c/o ear pressure He c/o congestion, Green mucous when blowing nose, pressure, and facial pressure. He has not seen an oral and maxillofacial surgery. Sinus issues has been going on since 2018. He uses Flonase every morning. He has no done irrigation PAST MEDICAL HISTORY Diagnosis Date Depression DM type 2 (diabetes mellitus, type 2) (HCC) Fracture Gout H/O Clostridium difficile infection 10/2012 History of cholecystectomy HTN (hypertension) Hyperlipidemia Hypothyroidism Osteomyelitis of knee region (HCC) left, s/p knee replacement Pain chronic PAST SURGICAL HISTORY Procedure Laterality Date ARTHROSCOPY KNEE DIAGNOSTIC W/WO SYNOVIAL BX SPX Arthroscopy, knee, arthroscopy and meniscectomy. CHOLECYSTECTOMY HX 2000 COLONOSCOPY `2011 HAND SURGERY HX Left LAMINECTOMY W/O FFD 1/2 VERT SEG LUMBAR 1986 Laminectomy, lumbar PAST SURGICAL HISTORY OF 02/16/2012 lumbar wound washout; hardware removal, Reopen of lumbar wound with debridement culture and removalof posterior segmental lumbar instrumentation and bone growth stimulators PAST SURGICAL HISTORY OF 02/23/2012 left knee I and D, Synovectomy PAST SURGICAL HISTORY OF 2011 Irrigation and debridement, Synovectomy, Preparation for knee replacement removing necrotic bone and Placement of temporary knee replacement,, Quadriceps plasty PAST SURGICAL HISTORY OF 09/06/2012 Revision total knee arthroplasty / Infected left knee, status post placement of antibiotic spacer PAST SURGICAL HISTORY OF 08/30/2006 Left knee arthroscopy with #1 chondroplasty, medial femoral condyle, patella, and trochlear groove PAST SURGICAL HISTORY OF 08/06/2006 Diagnoscopy, left knee PAST SURGICAL HISTORY OF 06/05/2014 Left TKA revision PAST SURGICAL HISTORY OF 08/2012 Left TKA PAST SURGICAL HISTORY OF 10/2019 TORP prosthesis of right FAMILY HISTORY Problem Relation Age of Onset other (suicide) Father Breast Cancer Mother brast Ca - age 66 other (Stomach Cancer) Mother Heart Brother Heart Attack - age 45 Anesthesia Problems No Family History Social History Tobacco Use Smoking status: Former Packs/day: 0.50 Years: 1.00 Pack years: 0.50 Types: Cigarettes Quit date: 02/15/1982 Years since quittin.7 Smokeless tobacco: Never Vaping Use Vaping Use: Never used Substance Use Topics Alcohol use: Not Currently Drug use: Never Comment: declines tx for drug/alcohol abuse in the past Current Outpatient Medications Medication Sig Dispense Refill clonazePAM (KLONOPIN) 1 mg tablet Take 1 tablet by mouth three times daily for 90 days. 270 tablet 1 oxyCODONE-acetaminophen (PERCOCET) 5-325 mg tablet Take 1 tablet by mouth every 8 hours as needed for pain. (Patient not taking: No sig reported) 3 tablet 0 ofloxacin (FLOXIN) 0.3 % otic solution Use 3 Drops in the ears twice daily. (Patient not taking: Nosig reported) 10 mL 3 atorvastatin (LIPITOR) 10 mg tablet Take 10 mg by mouth once daily. busPIRone (BUSPAR) 15 mg tablet Take 15 mg by mouth three times daily. gabapentin (NEURONTIN) 300 mg capsule Take 300 mg by mouth three times daily. venlafaxine ER (EFFEXOR XR) 150 mg 24 hr capsule Take 150 mg by mouth once daily. loratadine (CLARITIN) 10 mg tablet Take 10 mg by mouth once daily. prazosin (MINIPRESS) 1 mg cap Take 1 mg by mouth twice daily. ofloxacin (OCUFLOX) 0.3 % ophthalmic solution 3 drops to right ear twice daily, use concurrently with Dexamethasone (Patient not taking: No sig reported) 1 Bottle 3 cloNIDine HCl (CATAPRES) 0.1 mg tablet Hydrochlorothiazide 12.5 mg capsule hydrochlorothiazide 12.5 mg capsule meloxicam (MOBIC) 15 mg tablet Take 1 tablet by mouth once daily. 30 tablet 0 glimepiride (AMARYL) 4 mg tablet Take 4 mg by mouth daily with breakfast. lisinopril (ZESTRIL, PRINIVIL) 10 mg tablet Take 10 mg by mouth once daily. zolpidem (AMBIEN) 10 mg tab Take by mouth at bedtime as needed. (Patient not taking: No sig reported) vortioxetine (TRINTELLIX) 20 mg tablet Take by mouth. tiotropium bromide (SPIRIVA RESPIMAT) 2.5 mcg/actuation inhaler Inhale as instructed. fluticasone-vilanterol (BREO ELLIPTA) 100-25 mcg/dose inhaler Inhale 1 Inhalation as instructed once daily. Levothyroxine 112 mcg cap Take by mouth. metFORMIN (GLUCOPHAGE) 1,000 mg tablet Take 1 tablet by mouth twice daily. 60 tablet 0 multivitamin tablet Take 1 tablet by mouth once daily. aspirin 81 mg chewable tablet Take 1 tablet by mouth twice daily. (Patient not taking: Reported on 08/19/2022) 56 tablet 0 amLODIPine (NORVASC) 10 mg tablet Take 1 tablet by mouth once daily. 0 No current facility-administered medications for this visit. ALLERGIES Allergen Reactions Morphine Rash, Itching Bee Sting Swelling, Anaphylaxis Penicillins Itching ROS: CONSTITUTIONAL: No fevers, chills, nightsweats, unintended weight loss HEENT: HEENT: Yes symptoms: sinus pressure, nasal congestion, and nasal drainage both, No symptoms:headaches, epistaxis, and sense of smell reduced EYES: No diplopia or blurry vision. PHYSICAL EXAM: 10/31/22 0913 Temp: 36.8 C (98.2 F) General appearance: well developed, well nourished, without obvious deformities Eyes: Extra ocular muscles are intact, no diplopia on primary gaze Ears: Externally normal in appearance, without scars, lesions, or masses. Both left and right external auditory canals and tympanic membranes are normal Nasal exam: The mucosa is pink, the septum is No deviated, and the visible turbinates are No hypertrophied on anterior rhinoscopy, nasal polyps (0 L, 0 R) Oral cavity and oropharynx: the oral mucosa, tongue, tonsil area, and posterior pharyngeal mucosa are without lesions. Floor of mouth is soft without edema. None UPSIT:None No results found for: REVW, BMPNOTE, ALRG5 Last CT Sinus - Impression Only No resulted procedures found. ASSESSMENT/PLAN: 1. Acute recurrent frontal sinusitis - ICD9: 461.1, ICD10: J01.11 - CONSULT TO ALLERGY/IMMUNOLOGY 2. Other chronic sinusitis - ICD9: 473.8, ICD10: J32.8 - CT SINUS STEREO WO IVCON - Recommend Irrigation twice daily - Nasal exam shows dryness - Continue Flonase - Start azelastine (ASTELIN, ASTEPRO) 0.1% nasal spray No flowsheet data found. PROMIS-10 Flowsheet Row Office Visit from 02/15/2019 in [facility] T Score 39.8 [facility] Mental [facility] T Score 38.8 0-10 Standard Pain Scale 9 Scribe Attestation: By signing below, ISaray attest that this documentation has been prepared in the presence of and under the direction of Dr. Saima Macdonald M.D. Provider Attestation: I, Dr.Mohamad Macdonald, personally performed the services described in this documentation. All medical record entries made by the scribe/resident/fellow were at my direction and in my presence. I have reviewed the chart and agree that the record reflects my personal performanceand is accurate and complete. documented in this encounterBluff[facility] Hospital11-01-2022 NoteHNO ID: [id number] Author: Partha Sukalac, PA-C Service: ? Author Type: Physician Business Technology Architect Type: Progress Notes Filed: 09/17/2022 7:50 AM Note Text: History of Present Illness Mr. JOIE LU JR is a 67 year old male with a history of conductive hearing loss with ossicular chain reconstruction and TORP prothesis on the right completed 10/2019, with revision on 07/15/21. 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 The following information above was copied, reviewed and is still up to date. Last seen by Dr. Gifty Couch on 02/27/2022. Since last seen, Reports he gets a sinus infection every month and was told to ask about it when he comes in. When asked, he reports that his symptoms include ear pain, frontal pressure and drainage that is green and other times it is not. Denies unilateral watery rhinorrhea. He does use daily nasal spray and Claritin and has for the last 6 months or so. He is always treated with oral antibiotics. Otorrhea: Right ear that is draining. It is a clear color. It occurs with a shower and if he lays on it, water will drain out of it. Hearing Loss: Has been stable. Knows he needs a hearing aid, but has not got it yet. Otalgia: denies Ear Pressure/Fullness: denies Tinnitus: denies Dizziness/Imbalance: denies Facial Numbness, Weakness or Tingling: denies ALLERGIES Allergen Reactions Morphine Rash, Itching Bee Sting Swelling, Anaphylaxis Penicillins Itching Current Outpatient Medications on File Prior to Visit Medication Sig atorvastatin (LIPITOR) 10 mg tablet Take 10 mg by mouth once daily. busPIRone (BUSPAR) 15 mg tablet Take 15 mg by mouth three times daily. gabapentin (NEURONTIN) 300 mg capsule Take 300 mg by mouth three times daily. venlafaxine ER (EFFEXOR XR) 150 mg 24 hr capsule Take 150 mg by mouth once daily. loratadine (CLARITIN) 10 mg tablet Take 10 mg by mouth once daily. prazosin (MINIPRESS) 1 mg cap Take 1 mg by mouth twice daily. cloNIDine HCl (CATAPRES) 0.1 mg tablet Hydrochlorothiazide 12.5 mg capsule hydrochlorothiazide 12.5 mg capsule meloxicam (MOBIC) 15 mg tablet Take 1 tablet by mouth once daily. glimepiride (AMARYL) 4 mg tablet Take 4 mg by mouth daily with breakfast. lisinopril (ZESTRIL, PRINIVIL) 10 mg tablet Take 10 mg by mouth once daily. vortioxetine (TRINTELLIX) 20 mg tablet Take by mouth. tiotropium bromide (SPIRIVA RESPIMAT) 2.5 mcg/actuation inhaler Inhale as instructed. fluticasone-vilanterol (BREO ELLIPTA) 100-25 mcg/dose inhaler Inhale 1 Inhalation as instructed once daily. Levothyroxine 112 mcg cap Take by mouth. metFORMIN (GLUCOPHAGE) 1,000 mg tablet Take 1 tablet by mouth twice daily. multivitamin tablet Take 1 tablet by mouth once daily. amLODIPine (NORVASC) 10 mg tablet Take 1 tablet by mouth once daily. oxyCODONE-acetaminophen (PERCOCET) 5-325 mg tablet Take 1 tablet by mouth every 8 hours as needed for pain. (Patient not taking: No sig reported) clonazePAM (KLONOPIN) 1 mg tablet Take 1 tablet by mouth three times daily for 90 days. ofloxacin (FLOXIN) 0.3 % otic solution Use 3 Drops in the ears twice daily. (Patient not taking: No sig reported) ofloxacin (OCUFLOX) 0.3 % ophthalmic solution 3 drops to right ear twice daily, use concurrently with Dexamethasone (Patient not taking: No sig reported) zolpidem (AMBIEN) 10 mg tab Take by mouth at bedtime as needed. (Patient not taking: No sig reported) aspirin 81 mg chewable tablet Take 1 tablet by mouth twice daily. (Patient not taking: Reported on 08/19/2022) No current facility-administered medications on file prior to visit. Objective: There were no vitals taken for this visit. Appearance: Non-syndromic, cooperative and calm Communication: Voice has adequate volume; there is no stridor Head/Face: head and facial contours are symmetric Facial nerve 1/6 bilateral Skin: no skin lesions or scarring on face Ears: AD Canal is dry. TM is intact. Canal is dry. TM is intact. 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 Reccommended patient establish with rhinology for ongoing sinus concerns 2. Continue with nasal sprays and Claritin 3. Refilled Klonopin for left tensor myoclonus 4. Medically cleared for hearing aids, bilaterally 5. Follow up in about 6 months Orders: Office Visit on 08/19/22 CONSULT TO ENT c (more content not included)...[facility]-01[facility] Instructions* Patient Instructions* Partha Jackson PA-C - 08/19/2022 2:41 PM EDT PLAN: -Recommend appointment with Dr. Saima Macdonald MD in [place] for your sinuses [address] [address] -Continue with nasal sprays and Claritin -Sent refill of the Klonopin -Follow up in 5.5-6 months with Partha Jackson PA-C -Recommend hearing aids in both ears [facility] History of Present illness Narrative* Partha Jackson PA-C - 08/19/2022 2:30 PM EDT History of Present Illness Mr. JOIE LU JR is a 67 year old male with a history of conductive hearing loss with ossicular chain reconstruction and TORP prothesis on the right completed 10/2019, with revision on 07/15/21. 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 The following information above was copied, reviewed and is still up to date. Last seen by Dr. Gifty Couch on 02/27/2022. Since last seen, Reports he gets a sinus infection every month and was told to ask about it when he comes in. When asked, he reports that his symptoms include ear pain, frontal pressure and drainage that is green andother times it is not. Denies unilateral watery rhinorrhea. He does use daily nasal spray and Claritin and has for the last 6 months or so. He is always treated with oral antibiotics. Otorrhea: Right ear that is draining. It is a clear color. It occurs with a shower and if he lays on it, water will drain out of it. Hearing Loss: Has been stable. Knows he needs a hearing aid, but has not got it yet. Otalgia: denies Ear Pressure/Fullness: denies Tinnitus: denies Dizziness/Imbalance: denies Facial Numbness, Weakness or Tingling: denies ALLERGIES Allergen Reactions Morphine Rash, Itching Bee Sting Swelling, Anaphylaxis Penicillins Itching Current Outpatient Medications on File Prior to Visit Medication Sig atorvastatin (LIPITOR) 10 mg tablet Take 10 mg by mouth once daily. busPIRone (BUSPAR) 15 mg tablet Take 15 mg by mouth three times daily. gabapentin (NEURONTIN) 300 mg capsule Take 300 mg by mouth three times daily. venlafaxine ER (EFFEXOR XR) 150 mg 24 hr capsule Take 150 mg by mouth once daily. loratadine (CLARITIN) 10 mg tablet Take 10 mg by mouth once daily. prazosin (MINIPRESS) 1 mg cap Take 1 mg by mouth twice daily. cloNIDine HCl (CATAPRES) 0.1 mg tablet Hydrochlorothiazide 12.5 mg capsule hydrochlorothiazide 12.5 mg capsule meloxicam (MOBIC) 15 mg tablet Take 1 tablet by mouth once daily. glimepiride (AMARYL) 4 mg tablet Take 4 mg by mouth daily with breakfast. lisinopril (ZESTRIL, PRINIVIL) 10 mg tablet Take 10 mg by mouth once daily. vortioxetine (TRINTELLIX) 20 mg tablet Take by mouth. tiotropium bromide (SPIRIVA RESPIMAT) 2.5 mcg/actuation inhaler Inhale as instructed. fluticasone-vilanterol (BREO ELLIPTA) 100-25 mcg/dose inhaler Inhale 1 Inhalation as instructed once daily. Levothyroxine 112 mcg cap Take by mouth. metFORMIN (GLUCOPHAGE) 1,000 mg tablet Take 1 tablet by mouth twice daily. multivitamin tablet Take 1 tablet by mouth once daily. amLODIPine (NORVASC) 10 mg tablet Take 1 tablet by mouth once daily. oxyCODONE-acetaminophen (PERCOCET) 5-325 mg tablet Take 1 tablet by mouth every 8 hours as needed for pain. (Patient not taking: No sig reported) clonazePAM (KLONOPIN) 1 mg tablet Take 1 tablet by mouth three times daily for 90 days. ofloxacin (FLOXIN) 0.3 % otic solution Use 3 Drops in the ears twice daily. (Patient not taking: Nosig reported) ofloxacin (OCUFLOX) 0.3 % ophthalmic solution 3 drops to right ear twice daily, use concurrently with Dexamethasone (Patient not taking: No sig reported) zolpidem (AMBIEN) 10 mg tab Take by mouth at bedtime as needed. (Patient not taking: No sig reported) aspirin 81 mg chewable tablet Take 1 tablet by mouth twice daily. (Patient not taking: Reported on 08/19/2022) No current facility-administered medications on file prior to visit. Objective: There were no vitals taken for this visit. Appearance: Non-syndromic, cooperative and calm Communication: Voice has adequate volume; there is no stridor Head/Face: head and facial contours are symmetric Facial nerve 1/6 bilateral Skin: no skin lesions or scarring on face Ears: AD Canal is dry. TM is intact. Canal is dry. TM is intact. 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 Reccommended patient establish with rhinology for ongoing sinus concerns 2. Continue with nasal sprays and Claritin 3. Refilled Klonopin for left tensor myoclonus 4. Medically cleared for hearing aids, bilaterally 5. Follow up in about 6 months Orders: Office Visit on 08/19/22 CONSULT TO ENT clonazePAM (KLONOPIN) 1 mg tablet Procedures: None. Partha Jackson PA-C September 17, 2022 7:48 AM Medical Decision Making: Problems: Moderate: 2+ stable chronic illnesses Risk: Moderate: Drug management Medical Decision Making Level: 4 - Moderate documented in [facility] encounterBl[facility]11-[facility] Nurse Note* Caitlin Mosley MA - 08/19/2022 2:22 PM EDT Tobacco Use: .5 packs/day, for 1 years. Quit 02/15/1982. Types: Cigarettes Was smoking cessation packet given? N/A - Patient is a non-smoker or quit >1 year ago. Was a referral initiated?N/A Patient is a non-smoker documented in [facility] encounterBl[facility]09-[facility] NotePROCEDURE: XR KNEE LT 4V or > HISTORY: Pain of left knee joint ; chronic COMPARISON: XR knee left 12/11/2021 FINDINGS: BONES:Left knee replacement without evidence of hardware loosening. Stable C-shaped metallic foreign body medial to the knee joint consistent with hardware fragment. SOFT TISSUES:No visible soft tissue swelling. EFFUSION:None visible. OTHER: Negative. IMPRESSION: 1. No acute bone abnormality or hardware change. 2. Stable C-shaped metallic foreign body medial to the knee. Electronically authenticated by: JONAH GARCIA Date: 2022-06-19 16:09[facility]05-12-2022 NoteHNO ID: [id number] Author: Gifty Couch MD Service: ? Author Type: Physician Type: Progress Notes Filed: 02/28/2022 1:04 AM Note Text: Staff Physician Comments: I testify that I personally interviewed and examined the patient. I confirm the below exam findings, assessment and plan were my own and resident/FRENCH COMBER/scribe was acting as SCRIBE. Hearing unchanged, unimproved It's unclear where his severe ear pain is coming from as it's not happening today and the ear looks very healthy. Recommend pt come back to [facility] for assessment next time this flares so we can see if its otologic or not. Gifty Couch MD, FACS Section Head, Otology/Neurotology/Skull Base Surgery Presales Engineer, Cochlear Implant Program [facility] History of Present Illness Mr. JOIE LU JR is a 66 year old male with a history of conductive hearing loss with ossicular chain reconstruction and TORP prothesis on the right completed 10/2019, with revision on 07/15/21. 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 Since last seen, Patient was treated for an infection of his right ear about 2 weeks ago with oral antibiotics and steroids from PCP. Partha Jackson PA-C treated with Percocet for the pain. This improved within a day. Has been okay since. The right ear felt like it was draining, but has not seen any drainage. Has not seen drainage for over a year, just feels wet. Feels like his hearing has improved since his last visit. Still feels like he will need hearing aids. Asking others to repeat themselves, mostly with the right ear. Uses the left ear to talk on the phone. Not struggling with word recognition. Denies otalgia, tinnitus, dizziness, ear fullness and pressure and facial numbness, weakness and tingling. ALLERGIES Allergen Reactions - Morphine Rash, Itching - Bee Sting Swelling, Anaphylaxis - Penicillins Itching Current Outpatient Medications on File Prior to Visit Medication Sig - clonazePAM (KLONOPIN) 1 mg tablet Take 1 tablet by mouth three times daily for 90 days. - atorvastatin (LIPITOR) 10 mg tablet Take 10 mg by mouth once daily. - busPIRone (BUSPAR) 15 mg tablet Take 15 mg by mouth three times daily. - gabapentin (NEURONTIN) 300 mg capsule Take 300 mg by mouth three times daily. - venlafaxine ER (EFFEXOR XR) 150 mg 24 hr capsule Take 150 mg by mouth once daily. - loratadine (CLARITIN) 10 mg tablet Take 10 mg by mouth once daily. - prazosin (MINIPRESS) 1 mg cap Take 1 mg by mouth twice daily. - cloNIDine HCl (CATAPRES) 0.1 mg tablet - meloxicam (MOBIC) 15 mg tablet Take 1 tablet by mouth once daily. - glimepiride (AMARYL) 4 mg tablet Take 4 mg by mouth daily with breakfast. - lisinopril (ZESTRIL, PRINIVIL) 10 mg tablet Take 10 mg by mouth once daily. - tiotropium bromide (SPIRIVA RESPIMAT) 2.5 mcg/actuation mist Inhale as instructed. - fluticasone-vilanterol (BREO ELLIPTA) 100-25 mcg/dose inhaler Inhale 1 Inhalation as instructed once daily. - Levothyroxine 112 mcg cap Take by mouth. - metFORMIN (GLUCOPHAGE) 1,000 mg tablet Take 1 tablet by mouth twice daily. - multivitamin tablet Take 1 tablet by mouth once daily. - aspirin 81 mg chewable tablet Take 1 tablet by mouth twice daily. - amLODIPine (NORVASC) 10 mg tablet Take 1 tablet by mouth once daily. - oxyCODONE-acetaminophen (PERCOCET) 5-325 mg tablet Take 1 tablet by mouth every 8 hours as needed for pain. (Patient not taking: Reported on 02/27/2022) - ofloxacin (FLOXIN) 0.3 % otic solution Use 3 Drops in the ears twice daily. (Patient not taking: Reported on 02/27/2022 ) - ofloxacin (OCUFLOX) 0.3 % ophthalmic solution 3 drops to right ear twice daily, use concurrently with Dexamethasone (Patient not taking: Reported on 02/20/2021 ) - Hydrochlorothiazide 12.5 mg capsule hydrochlorothiazide 12.5 mg capsule (Patient not taking: hydrochlorothiazide 12.5 mg capsule) - zolpidem (AMBIEN) 10 mg tab Take by mouth at bedtime as needed. (Patient not taking: Reported on 06/14/2021) - vortioxetine (TRINTELLIX) 20 mg tablet Take by mouth. (Patient not taking: Reported on 07/04/2021 ) No current facility-administered medications on file prior to visit. Objective: There were no vitals taken for this visit. Appearance: Non-syndromic, cooperative and calm Communication: Voice has adequate volume; there is no stridor Head/Face: head and facial contours are symmetric Facial nerve 1/6 bilateral Skin: Patient has flat lesions over his nose and under the left eye. It is dark red/purple in color. Ears: AD: Small amount of cerumen at the opening, non-obstructive. Canal is dry. TM is intact. : Impacted cerumen removed from canal. Canal is dry. TM is intact. Ishaan Daugherty AD 256 - + 512 + + 1024 - + Nose: external exam with straight profile Oral Cavity: Missing teeth, Oropharynx: Uvula hangs midline; mucosa is pink and moist (more content not included)...[facility]05-12-2022 NoteHNO ID: [id number] Author: ANIVAL Glover Service: ? Author Type: Line O Scribe Operator Type: Progress Notes Filed: 02/27/2022 3:36 PM Note Text: [facility] AUDIOLOGIC EVALUATION REPORT Name: Joie Lu JR [facility]#: [id number] Date of Service: 02/27/2022 Date of : 1955 Age: [age] year old Referred by: Regan Ortega MD ([facility]) [address] [facility] [address] Referred for: Evaluation of suspected change in hearing, tinnitus, or balance. Referral documented: In an order in [facility] Joie Lu JR was seen for a recheck audiologic evaluation prior to consultation with Otology (Dr. Couch). Recall that history is significant for mixed hearing loss in the right ear and prior ear surgeries (right ossicular chain reconstruction and TORP prosthesis 11/03/2019 and s/p revision right tympanoplasty and ossicular chain reconstruction with prothesis on 07/15/2021 by Gifty Couch MD). Previous audiologic testing was completed on 07/10/2021 (prior to surgical revision), which revealed a moderate to profound mixed hearing loss in the right ear and a mild sloping to moderately-severe sensorineural hearing loss in the left ear. Today, Mr. Lu reported an onset of right-sided otalgia and aural fullness approximately 3 weeks ago, which has since resolved. He denied any otalgia (0/10), tinnitus, aural fullness, vertigo, and otorrhea today. He continues to report right greater than left hearing loss. See [facility] Audiogram for additional reported history and symptoms. INTERPRETATION OF HEARING STATUS RIGHT EAR: Mixed (conductive and sensorineural) hearing loss LEFT EAR: Sensorineural hearing loss Comparison of today's results with previous test results (07/10/2021): Today's results suggest a slight global decrease in both ears TESTING, AND RESULTS Following is a brief interpretation of the obtained findings from the audiologic evaluation. Refer to the Auditory Test Record for complete audiometric results. The patient was counseled about the test findings and appropriate audiologic recommendations were made. SUMMARY: Audiogram can be viewed under Forms/Audiology/SmartForm. MIDDLE EAR: via acoustic immittance testing RIGHT EAR Tympanometry: Normal ME function. LEFT EAR Tympanometry: Normal ME pressure with enhanced TM compliance (mobility). AUDITORY/FACIAL NERVE FUNCTION: via acoustic reflex testing RIGHT EAR PROBE EAR: (ipsi right stimulus ear; contralateral left stimulus ear): Acoustic Reflex Pattern Did not test Acoustic Reflex Decay (left stimulus ear): Did not test. LEFT EAR PROBE EAR: (ipsi left stimulus ear; contralateral right stimulus ear): Acoustic Reflex Pattern (Did not test Acoustic Reflex Decay (right stimulus ear):Did not test. HEARING ASSESSMENT: via pure tone and speech testing RIGHT EAR: Hearing Sensitivity: Moderate gradually sloping to profound mixed hearing loss. Word Recognition Score: Excellent (90%). WRS is consistent with hearing sensitivity. Words were presented at 110 dB HL which is above intensity level for normal conversational speech. The NU-6 Order by Difficulty Word List (10 words) was used for testing. Contralateral masking utilized. LEFT EAR: Hearing Sensitivity: WNL through 1000 Hz gradually sloping to a severe SNHL at 8000 Hz. Word Recognition Score: Excellent (92%). WRS is consistent with hearing sensitivity. Words were presented at 65 dB HL which is above intensity level for normal conversational speech. The NU-6 Order by Difficulty Word List (25 words) was used for testing. MANAGEMENT PLAN: * Continue medical follow-up with Gifty Couch MD. * Consider pursuing appropriate amplification pending medical clearance. Patient was advised to contact his insurance to determine if he has a hearing aid benefit. Should patient wish to pursue amplification at [facility], call [phone] to schedule a hearing aid evaluation appointment. * Re-evaluation as medically indicated, or sooner, if a change in hearing is noted. I verify that I have reviewed the history, test results, and interpretation for this patient. Neri Glover, EML/A Clinical Line O Scribe Operator [id number] Abbrev- iation Definition Degree of hearing sensitivity dB range WNL within normal limits WNL 0 - 20 SNHL sensorineural hearing loss Mild 20-40 CHL conductive hearing loss Moderate 40-55 MHL mixed hearing loss Moderately-Severe 55-70 WRS word recognition score Severe 70-90 ME middle ear Profound 90 + TM tympanic membraneBarnesville Hospital05-12-2022 Instructions* Patient Instructions* Partha Jackson PA-C - 02/27/2022 3:50 PM EDT 1. Follow up with Partha Jackson PA-C in about 5 months. 2. Sooner if you have any issues with your ears. 3. Please call your insurance company to check for coverage of the hearing aids. Take your most up to date hearing test, it is good for 6 months. documented in [facility]Bl[facility]05-12-[facility] History of Present illness Narrative* Gifty Couch MD - 02/27/2022 3:02 PM EDT Images from the original note were not included. Staff Physician Comments: I testify that I personally interviewed and examined the patient. I confirm the below exam findings, assessment and plan were my own and resident/FRENCH COMBER/scribe was acting as SCRIBE. Hearing unchanged, unimproved It's unclear where his severe ear pain is coming from as it's not happening today and the ear looksvery healthy. Recommend pt come back to [facility] for assessment next time this flares so we can see if its otologic or not. Gifty Couch MD, FACS Section Head, Otology/Neurotology/Skull Base Surgery Presales Engineer, Cochlear Implant Program [facility] History of Present Illness Mr. JOIE LU JR is a 66 year old male with a history of conductive hearing loss with ossicular chain reconstruction and TORP prothesis on the right completed 10/2019, with revision on 07/15/21. 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 Since last seen, Patient was treated for an infection of his right ear about 2 weeks ago with oral antibiotics and steroids from PCP. Partha Jackson PA-C treated with Percocet for the pain. This improved within a day. Has been okay since. The right ear felt like it was draining, but has not seen any drainage. Has not seen drainage for over a year, just feels wet. Feels like his hearing has improved since his last visit. Still feels like he will need hearing aids. Asking others to repeat themselves, mostly with the right ear. Uses the left ear to talk on the phone. Not struggling with word recognition. Denies otalgia, tinnitus, dizziness, ear fullness and pressure and facial numbness, weakness and tingling. ALLERGIES Allergen Reactions Morphine Rash, Itching Bee Sting Swelling, Anaphylaxis Penicillins Itching Current Outpatient Medications on File Prior to Visit Medication Sig clonazePAM (KLONOPIN) 1 mg tablet Take 1 tablet by mouth three times daily for 90 days. atorvastatin (LIPITOR) 10 mg tablet Take 10 mg by mouth once daily. busPIRone (BUSPAR) 15 mg tablet Take 15 mg by mouth three times daily. gabapentin (NEURONTIN) 300 mg capsule Take 300 mg by mouth three times daily. venlafaxine ER (EFFEXOR XR) 150 mg 24 hr capsule Take 150 mg by mouth once daily. loratadine (CLARITIN) 10 mg tablet Take 10 mg by mouth once daily. prazosin (MINIPRESS) 1 mg cap Take 1 mg by mouth twice daily. cloNIDine HCl (CATAPRES) 0.1 mg tablet meloxicam (MOBIC) 15 mg tablet Take 1 tablet by mouth once daily. glimepiride (AMARYL) 4 mg tablet Take 4 mg by mouth daily with breakfast. lisinopril (ZESTRIL, PRINIVIL) 10 mg tablet Take 10 mg by mouth once daily. tiotropium bromide (SPIRIVA RESPIMAT) 2.5 mcg/actuation mist Inhale as instructed. fluticasone-vilanterol (BREO ELLIPTA) 100-25 mcg/dose inhaler Inhale 1 Inhalation as instructed once daily. Levothyroxine 112 mcg cap Take by mouth. metFORMIN (GLUCOPHAGE) 1,000 mg tablet Take 1 tablet by mouth twice daily. multivitamin tablet Take 1 tablet by mouth once daily. aspirin 81 mg chewable tablet Take 1 tablet by mouth twice daily. amLODIPine (NORVASC) 10 mg tablet Take 1 tablet by mouth once daily. oxyCODONE-acetaminophen (PERCOCET) 5-325 mg tablet Take 1 tablet by mouth every 8 hours as needed for pain. (Patient not taking: Reported on 02/27/2022) ofloxacin (FLOXIN) 0.3 % otic solution Use 3 Drops in the ears twice daily. (Patient not taking: Reported on 02/27/2022 ) ofloxacin (OCUFLOX) 0.3 % ophthalmic solution 3 drops to right ear twice daily, use concurrently with Dexamethasone (Patient not taking: Reported on 02/20/2021 ) Hydrochlorothiazide 12.5 mg capsule hydrochlorothiazide 12.5 mg capsule (Patient not taking: hydrochlorothiazide 12.5 mg capsule) zolpidem (AMBIEN) 10 mg tab Take by mouth at bedtime as needed. (Patient not taking: Reported on 06/14/2021) vortioxetine (TRINTELLIX) 20 mg tablet Take by mouth. (Patient not taking: Reported on 07/04/2021 ) No current facility-administered medications on file prior to visit. Objective: There were no vitals taken for this visit. Appearance: Non-syndromic, cooperative and calm Communication: Voice has adequate volume; there is no stridor Head/Face: head and facial contours are symmetric Facial nerve 1/6 bilateral Skin: Patient has flat lesions over his nose and under the left eye. It is dark red/purple in color. Ears: AD: Small amount of cerumen at the opening, non-obstructive. Canal is dry. TM is intact. : Impacted cerumen removed from canal. Canal is dry. TM is intact. Rinne Daugherty AD 256 - + 512 + + 1024 - + Nose: external exam with straight profile Oral Cavity: Missing teeth, Oropharynx: Uvula hangs midline; mucosa is pink and moist Neck: no LAD Lymphatic: No lymphadenopathy or masses Neuro/Psych.: Alert and Oriented x 3 Cranial nerves intact Data Review: Personally reviewed, Hearing is essentially unchanged since surgery. 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 Follow up every 5-6 months continue Klon[place]iquis 2. Medically cleared for hearing aids, bilaterally. Orders: Office Visit on 02/27/22 ADULT HEARING TEST/AUDIOGRAM Procedures: Preop diagnosis: Cerumen impaction. It cannot be removed without magnification and multiple instrumentations requiring physician skills. Postoperative diagnosis: same CERUMEN REMOVAL: Cerumen was removed under otomicroscopy from the Left ear with instrumentation. Partha Jackson PA-C February 27, 2022 3:49 PM Medical Decision Making: Problems: Moderate: 2+ stable chronic illnesses Data: Unique test(s) ordered: 1 Independent interpretation of test from other physician/QP Medical Decision Making Level: 4 - Moderate documented in [facility] encounterBluff[facility]05-[facility] Nurse Note* Judy Pacheco Ma - 02/27/2022 2:58 PM EDT Tobacco Use: .5 packs/day, for 1 years. Quit 02/15/1982. Types: Cigarettes Was smoking cessation packet given? N/A - Patient is a non-smoker or quit >1 year ago. Was a referral initiated?N/A Patient is a non-smoker documented in this encounterBluffton Hospital05-12-2022 History of Present illness Narrative* ANIVAL Glover - 02/27/2022 2:00 PM EDT [facility] [place] AUDIOLOGIC EVALUATION REPORT Name: Joie F Aly SILVA [facility]#: [id number] Date of Service: 02/27/2022 Date of : 1955 Age: [age] year old Referred by: Regan Ortega MD ([facility]) [address] [facility] [address] Referred for: Evaluation of suspected change in hearing, tinnitus, or balance. Referral documented: In an order in [facility] Joie Lu JR was seen for a recheck audiologic evaluation prior to consultation with Otology (Dr. Couch). Recall that history is significant for mixed hearing loss in the right ear and prior ear surgeries (right ossicular chain reconstruction and TORP prosthesis 11/03/2019 and s/p revision right tympanoplasty and ossicular chain reconstruction with prothesis on 07/15/2021 by Gifty Couch MD). Previous audiologic testing was completed on 07/10/2021 (prior to surgical revision), which revealed a moderate to profound mixed hearing loss in the right ear and a mild sloping to moderately-severe sensorineural hearing loss in the left ear. Today, Mr. Lu reported an onset of right-sided otalgia and aural fullness approximately 3 weeks ago, which has since resolved. He denied any otalgia (0/10), tinnitus, aural fullness, vertigo, and otorrhea today. He continues to report right greater than left hearing loss. See SmartForm Audiogram for additional reported history and symptoms. INTERPRETATION OF HEARING STATUS RIGHT EAR: Mixed (conductive and sensorineural) hearing loss LEFT EAR: Sensorineural hearing loss Comparison of today's results with previous test results (07/10/2021): Today's results suggest a slight global decrease in both ears TESTING, AND RESULTS Following is a brief interpretation of the obtained findings from the audiologic evaluation. Refer to the Auditory Test Record for complete audiometric results. The patient was counseled about the test findings and appropriate audiologic recommendations were made. SUMMARY: Audiogram can be viewed under Forms/Audiology/SmartForm. MIDDLE EAR: via acoustic immittance testing RIGHT EAR Tympanometry: Normal ME function. LEFT EAR Tympanometry: Normal ME pressure with enhanced TM compliance (mobility). AUDITORY/FACIAL NERVE FUNCTION: via acoustic reflex testing RIGHT EAR PROBE EAR: (ipsi right stimulus ear; contralateral left stimulus ear): Acoustic Reflex Pattern Did not test Acoustic Reflex Decay (left stimulus ear): Did not test. LEFT EAR PROBE EAR: (ipsi left stimulus ear; contralateral right stimulus ear): Acoustic Reflex Pattern (Did not test Acoustic Reflex Decay (right stimulus ear):Did not test. HEARING ASSESSMENT: via pure tone and speech testing RIGHT EAR: Hearing Sensitivity: Moderate gradually sloping to profound mixed hearing loss. Word Recognition Score: Excellent (90%). WRS is consistent with hearing sensitivity. Words were presented at 110 dB HL which is above intensity level for normal conversational speech. The NU-6 Order by Difficulty Word List (10 words) was used for testing. Contralateral masking utilized. LEFT EAR: Hearing Sensitivity: WNL through 1000 Hz gradually sloping to a severe SNHL at 8000 Hz. Word Recognition Score: Excellent (92%). WRS is consistent with hearing sensitivity. Words were presented at 65 dB HL which is above intensity level for normal conversational speech. The NU-6 Order by Difficulty Word List (25 words) was used for testing. MANAGEMENT PLAN: * Continue medical follow-up with Gifty Couch MD. * Consider pursuing appropriate amplification pending medical clearance. Patient was advised to contact his insurance to determine if he has a hearing aid benefit. Should patient wish to pursue amplification at [facility], call [phone] to schedule a hearing aid evaluation appointment. * Re-evaluation as medically indicated, or sooner, if a change in hearing is noted. I verify that I have reviewed the history, test results, and interpretation for this patient. Neri Glover, MEL/A Clinical Line O Scribe Operator HINOJOSA Abbrev- iation Definition Degree of hearing sensitivity dB range WNL within normal limits WNL 0 - 20 SNHL sensorineural hearing loss Mild 20-40 CHL conductive hearing loss Moderate 40-55 MHL mixed hearing loss Moderately-Severe 55-70 WRS word recognition score Severe 70-90 ME middle ear Profound 90 + TM tympanic membrane documented in this encounterBluffton Hospital04-27-2022 Miscellaneous Notes* Telephone Encounter - Partha Jackson PA-C - 02/12/2022 5:37 PM EDT The right ear, with surgery, is painful. This started about a week ago and worse in the last 4 days. This feels like a stabbing pain. It feels thick like it is going to explode. He is having pressure in the ear too. Reports that when he woke up in the middle of the night the ear felt moist. Has been on 3 different antibiotics recently. Has been Azithromycin, Augmentin. Has also been on a steroid, unsure of which one. He took them from a previous prescription and tookthem for 8-9 days. Was told that there is so much scar tissue that he cannot see everything, but reports that it was an infection. Has been trying the drops, Floxin, but they have not helped up to this point. He is also taking Tylenol and Ibuprofen for the pain, taking every 3-4 hours. Still having pain. Not affecting the jaw. Denies dizziness and vertigo. PLAN: -Only 3 percocet given to get him through a 24 hour period. NO MORE TO BE GIVEN. -Educated patient on being cautious with the amount of Tylenol he is taking in conjunction with thePercocet as it has some Tylenol. -Encouraged use of Ibuprofen, ear drops and oral antibiotic. -To be seen in the office in a few weeks as he has an appointment on February [address] Gifty Couch. Partha Jackson PA-C February 12, 2022 5:51 PM * Telephone Encounter - Natalie Murray - 02/12/2022 1:05 PM EDT Pt contacted the office again with the request for pain medication...patient mentioned that he reached out to PCP who refused to prescribe until seen on 02/27/2022. Pt is having difficulty sleeping at night * Telephone Encounter - Carin Pintot - 02/11/2022 3:02 PM EDT Patient has a severe ear infection, he has not slept in 2 days due to the pain. He was given an antibiotic form his PCP today, but he is calling asking if he could have 1 or 2 5 mg oxycodone prescribed for the pain. His PCP kendrick snot issue pain meds, he just wants something to take the sharp aches away. [facility] is perferred pharmacy Thanks Carin Ashley documented in this encounterBluffton Hospital04-21-2022 Miscellaneous Notes* Telephone Encounter - Carin Coley Asst - 02/06/2022 11:52 AM EDT Patient is calling for a refill on the clonazePAM (KLONOPIN) 1 mg tablet. 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) [facility] Other 09-24-2012 History of Past illness Narrative* Problem Noted Date Resolved Date Abscess of back 07/12/2012 12/01/2012 Wound infection 02/13/2012 10/24/2019 OA (OSTEOARTHRITIS) LOCALIZED, PRIMARY( Lower Le g) 07/20/2007 10/24/2019 Osteoarthrosis, unspecified whether generalized or localized, other specified sites 02/08/2007 10/24/2019 Plantar fascial fibromatosis 12/11/200601/2018 Sprain of ankle, unspecified site 12/11/2006 10/24/2019 Pain in joint, lower leg 09/03/2006 020 documented as of this encounter (statuses as of 02/06/2022) [facility] of Past illness Narrative* Problem Noted Date Resolved Date Abscess of back 07/12/2012 12/01/2012 Wound infection 02/13/2012 10/24/2019 OA (OSTEOARTHRITIS) LOCALIZED, PRIMARY( Lower Le g) 07/20/2007 10/24/2019 Osteoarthrosis, unspecified whether generalized or localized, other specified sites 02/08/2007 10/24/2019 Plantar fascial fibromatosis 12/11/200601/2018 Sprain of ankle, unspecified site 12/11/2006 10/24/2019 Pain in joint, lower leg 09/03/2006 020 documented as of this encounter (statuses as of 02/12/2022) [facility] of Past illness Narrative* Problem Noted Date Resolved Date Abscess of back 07/12/2012 12/01/2012 Wound infection 02/13/2012 10/24/2019 OA (OSTEOARTHRITIS) LOCALIZED, PRIMARY( Lower Le g) 07/20/2007 10/24/2019 Osteoarthrosis, unspecified whether generalized or localized, other specified sites 02/08/2007 10/24/2019 Plantar fascial fibromatosis 12/11/200601/2018 Sprain of ankle, unspecified site 12/11/2006 10/24/2019 Pain in joint, lower leg 09/03/2006 020 documented as of this encounter (statuses as of 02/27/2022) [facility] Narrative* Problem Noted Date Resolved Date Abscess of back 07/12/2012 12/01/2012 Wound infection 02/13/2012 10/24/2019 OA (OSTEOARTHRITIS) LOCALIZED, PRIMARY( Lower Le g) 07/20/2007 10/24/2019 Osteoarthrosis, unspecified whether generalized or localized, other specified sites 02/08/2007 10/24/2019 Plantar fascial fibromatosis 12/11/200601/2018 Sprain of ankle, unspecified site 12/11/2006 10/24/2019 Pain in joint, lower leg 09/03/2006 020 documented as of this encounter (statuses as of 02/28/2022) [facility] Narrative* Problem Noted Date Resolved Date Abscess of back 07/12/2012 12/01/2012 Wound infection 02/13/2012 10/24/2019 OA (OSTEOARTHRITIS) LOCALIZED, PRIMARY( Lower Le g) 07/20/2007 10/24/2019 Osteoarthrosis, unspecified whether generalized or localized, other specified sites 02/08/2007 10/24/2019 Plantar fascial fibromatosis 12/11/200601/2018 Sprain of ankle, unspecified site 12/11/2006 10/24/2019 Pain in joint, lower leg 09/03/2006 020 documented as of this encounter (statuses as of 09/17/2022) [facility] Narrative* Problem Noted Date Resolved Date Abscess of back 07/12/2012 12/01/2012 Wound infection 02/13/2012 10/24/2019 OA (OSTEOARTHRITIS) LOCALIZED, PRIMARY( Lower Le g) 07/20/2007 10/24/2019 Osteoarthrosis, unspecified whether generalized or localized, other specified sites 02/08/2007 10/24/2019 Plantar fascial fibromatosis 12/11/200601/2018 Sprain of ankle, unspecified site 12/11/2006 10/24/2019 Pain in joint, lower leg 09/03/2006 020 documented as of this encounter (statuses as of 10/31/2022) [facility] Narrative* Problem Noted Date Resolved Date Abscess of back 07/12/2012 12/01/2012 Wound infection 02/13/2012 10/24/2019 OA (OSTEOARTHRITIS) LOCALIZED, PRIMARY( Lower Le g) 07/20/2007 10/24/2019 Osteoarthrosis, unspecified whether generalized or localized, other specified sites 02/08/2007 10/24/2019 Plantar fascial fibromatosis 12/11/200601/2018 Sprain of ankle, unspecified site 12/11/2006 10/24/2019 Pain in joint, lower leg 09/03/2006 020 documented as of this encounter (statuses as of 11/10/2022) [facility] Narrative* Problem Noted Date Resolved Date Abscess of back 07/12/2012 12/01/2012 Wound infection 02/13/2012 10/24/2019 OA (OSTEOARTHRITIS) LOCALIZED, PRIMARY( Lower Le g) 07/20/2007 10/24/2019 Osteoarthrosis, unspecified whether generalized or localized, other specified sites 02/08/2007 10/24/2019 Plantar fascial fibromatosis 12/11/200601/2018 Sprain of ankle, unspecified site 12/11/2006 10/24/2019 Pain in joint, lower leg 09/03/2006 020 documented as of this encounter (statuses as of 01/28/2023) [facility] Narrative* Problem Noted Date Diagnosed Date Resolved Date Abscess of back 07/12/2012 12/01/2012 Wound infection 02/13/2012 10/24/2019 OA (OSTEOARTHRITIS) LOCALIZE D, PRIMARY( Lower Leg) 07/20/2007 10/24/2019 Osteoarthrosis, unspecified whether generalized or localized, other specified sites 02/08/2007 10/24/2019 Plantar fascial fibromatosis 12/11/2006 06/22/2018 Sprain of ankle, unspecified site 12/11/2006 10/24/2019 Pain in joint, lower leg 09/03/200603/2020 documented as of this encounter (statuses as of 05/29/2023) [facility] Narrative* Problem Noted Date Diagnosed Date Resolved Date Abscess of back 07/12/2012 12/01/2012 Wound infection 02/13/2012 10/24/2019 OA (OSTEOARTHRITIS) LOCALIZE D, PRIMARY( Lower Leg) 07/20/2007 10/24/2019 Osteoarthrosis, unspecified whether generalized or localized, other specified sites 02/08/2007 10/24/2019 Plantar fascial fibromatosis 12/11/2006 06/22/2018 Sprain of ankle, unspecified site 12/11/2006 10/24/2019 Pain in joint, lower leg 09/03/200603/2020 documented as of this encounter (statuses as of 06/02/2023) 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 note* Diagnosis Otalgia, right- Primary Other specified hearing loss, unspecified ear documented in this encounter [facility] note* Diagnosis Mixed conductive and sensorineural hearing loss of right ear with restricted hearing of left ear- Primary Sensorineural hearing loss (SNHL) of left ear with restricted hearing of right ear documented in this encounter 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 note* Diagnosis Acute recurrent frontal sinusitis Acute frontal sinusitis Other chronic sinusitis documented in this encounter 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 note* Diagnosis 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 resistant Staphylococcus aureus Encounter for preprocedural laboratory examination Pre-procedural laboratory examination Right knee pain, unspecified chronicity documented in this encounter VERA GILLESPIE [facility] general Narrative - Reported* Type Description Date Medical History Hypertension Medical History Arthritis Medical History COPD Medical History Hypothyroid Surgical History knee replacement Surgical History cholecystectomy Surgical History back surgery Surgical History Foot Surgery Surgical History shoulder surgery Surgical History hand surgery Surgical History revision left total knee Surgical History right ear implant 10/2019 Hospitalization History See Above [facility] Other Hospital Discharge instructions No data available for this section [facility] No data available for this section [facility] Summary Purpose Family History No Family History Records FoundUnknown Family Member Name Dates Details Family history of malignant neoplasm: Mother(V16.9, Z80.9) Status:Active No pertinent family history: Father(V49.89, Z78.9) Status:Active Family history of myocardial infarction: Brother(V17.3, Z82.49) Status:Active Family history of CABG: Brot her(V17.49, Z82.49) Status:Active Advance Directives No Advanced Directives Records FoundDocuments on File Type Date Recorded 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 Advance Directive(s) 07/12/2021 10:29 AM Advance Directive(s) 06/21/2021 12:46 PM Advance Directive(s) 11/03/2019 6:20 AM Advance Directive(s) 10/11/2019 2:38 PM Advance Directive Response Recorded Date/ Time Advance Directives No May 24 019 11:50am Reason for Referral Specialty Diagnoses / Procedures Referred By Contac t Referred To Contact Allergy Diagnoses Acute recurrent frontal sinusitis Procedures CONSULT TO ALLERGY/IMMUNOLOGY OFFICE/OUTPATIENT [facility] 60-74 MINUTES Saima Macdonald MD [address] [place] [address] Referral ID Status Reason Start Date Expiration Date Visits Requested Visits Authorized [id number] Pending Review PCP Requested Referral 10/31/2022 10/31/2023 1 1 Specialty Diagnoses / Procedures Referred By Contac t Referred To Contact Ent - Otolaryngology Diagnoses Acute recurrent frontal sinusitis Procedures CONSULT TO ENT OFFICE/OUTPATIENT [facility] 60-74 MINUTES Partha Jackson PA-C [address] [id number] Referral ID Status Reason Start Date Expiration Date Visits Requested Visits Authorized [id number] Pending Review PCP Requested Referral 08/19/2022 08/19/2023 1 1 Chief Complaint and Reason for Visit Chief Complaint J44.9 R93.89 Additional Source Comments (unrecognized sect ion and content) No Status Records FoundNo Status Records FoundNo Status Records FoundNo Status Records FoundNo Status Records FoundNo Status Records FoundNo Status Records FoundNo Status Records FoundNo Status Records FoundNo Status Records FoundNo Status Records Found INFORMATION SOURCE (unrecogn ized section and content) DATE CREATED AUTHOR 04/12/2018 [facility] DATE CREATED AUTHOR AUTHOR'S ORGANIZ ATION 01/31/2023 [facility] DATE CREATED AUTHOR AUTHOR'S ORGANIZ ATION 02/25/2023 [facility] DATE CREATED AUTHOR AUTHOR'S ORGANIZ ATION [facility]/30[facility]2023 [facility] DATE CREATED AUTHOR AUTHOR'S ORGANIZ ATION 04/10/2023 [facility] DATE CREATED AUTHOR AUTHOR'S ORGANIZ ATION 04/10/2023 [employer] DATE CREATED AUTHOR AUTHOR'S ORGANIZ ATION 04/28/2023 [facility] DATE CREATED AUTHOR AUTHOR'S ORGANIZ ATION 06/30/2023 [facility] DATE CREATED AUTHOR AUTHOR'S ORGANIZ ATION 07/22/2023 [facility] DATE CREATED AUTHOR AUTHOR'S ORGANIZ ATION 10/27/2023 [facility] DATE CREATED AUTHOR AUTHOR'S ORGANIZ ATION 10/29/2023 [facility] Source Comments (unrecognize d section and content) In the event this informatio n is protected by the Federal Confidentiality of Alcohol and Drug Abuse Patient Records regulations: The Federal rules restrict any use of the information to criminally investigate or prosecute any alcohol or drug abuse patient.[facility] HospitalIn the event this information is protected by the Federal Confidentiality of Alcohol and Drug Abuse Patient Records regulations: The Federal rules restrict any use of the information to criminally investigate or prosecute any alcohol or drug abuse patient.[facility] HospitalIn the event this information is protected by the Federal Confidentiality of Alcohol and Drug Abuse Patient Records regulations: The Federal rules restrict any use of the information to criminally investigate or prosecute any alcohol or drug abuse patient.[facility] HospitalIn the event this information is protected by the Federal Confidentiality of Alcohol and Drug Abuse Patient Records regulations: The Federal rules restrict any use of the information to criminally investigate or prosecute any alcohol or drug abuse patient.[facility] HospitalIn the event this information is protected by the Federal Confidentiality of Alcohol and Drug Abuse Patient Records regulations: The Federal rules restrict any use of the information to criminally investigate or prosecute any alcohol or drug abuse patient.[facility] HospitalIn the event this information is protected by the Federal Confidentiality of Alcohol and Drug Abuse Patient Records regulations: The Federal rules restrict any use of the information to criminally investigate or prosecute any alcohol or drug abuse patient.[facility] HospitalIn the event this information is protected by the Federal Confidentiality of Alcohol and Drug Abuse Patient Records regulations: The Federal rules restrict any use of the information to criminally investigate or prosecute any alcohol or drug abuse patient.[facility] the event this information is protected by the Federal Confidentiality of Alcohol and Drug Abuse Patient Records regulations: The Federal rules restrict any use of the information to criminally investigate or prosecute any alcohol or drug abuse patient.[facility] the event this information is protected by the Federal Confidentiality of Alcohol and Drug Abuse Patient Records regulations: The Federal rules restrict any use of the information to criminally investigate or prosecute any alcohol or drug abuse patient.[facility] the event this information is protected by the Federal Confidentiality of Alcohol and Drug Abuse Patient Records regulations: The Federal rules restrict any use of the information to criminally investigate or prosecute any alcohol or drug abuse patient.[facility] Reason for Visit (unrecogniz ed section and content) Reason Onset Date Comments Refill Request 02/06/2022 Reason Comments Returning Patient's Call Reason Comments Follow Up Specialty Diagnoses / Procedures Referred By Contac t Referred To Contact Diagnoses Other specified hearing loss, unspecified ear Procedures ADULT HEARING TEST/AUDIOGRAM COMPRE AUDIOMETRY THRESHOLD HOAL Gifty Hartmann MD [address] [facility] [place] [address] [facility] [address] [place] [address] Referral ID Status Reason Start Date Expiration Date V isits Requested Visits Authorized [id number] Closed Auto-Generate d Referral 12/17/2021 03/17/2022 1 1 Reason Comments Follow Up Established Patient 5 month follow-up.pt states he get ear infection every month. Reason Comments Sinus Problem Recurrent since infe ctions. Ear Pain Right ear Specialty Diagnoses / Procedures Referred By Jonathan t Referred To Contact Ent - Otolaryngology Diagnoses Acute recurrent frontal sinusitis Procedures CONSULT TO ENT OFFICE/OUTPATIENT [facility] 60-74 MINUTES Partha Jackson PA-C [address] [place] [address] Referral ID Status Reason Start Date Expiration Date Visits Requested Visits Authorized [id number] Pending Review PCP Requested Referral 08/19/2022 08/19/2023 1 1 Reason Comments Patient Question Orders Specialty Diagnoses / Procedures Referred By Jonathan t Referred To Contact Radiology / RADIO CT SCAN [facility] Diagnoses 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 Comments CT TEMP BONES WO IVCON Procedures CT WO BR[facility] [address] Gifty Couch MD [address] [place] [address] [facility] [address] [place] [address] Referral ID Status Reason Start Date Expiration Date Visits Re quested Visits Authorized [id number] Closed 03/06/2021 10/18/2021 1 1 Reason Onset Date Comments Refill Request 06/01/2023 Specialty Diagnoses / Procedures Referred By Jonathan t Referred To Contact [facility] [address] [place] [address] Referral ID Status Reason Start Date Expiration Date Visits Re quested Visits Authorized [id number] 1 1 Care Teams (unrecognized sec tion and content) General Inspector Relationship Specialty Start Date End Date Regan Ortega PCP - General Family Practice 10/11/19 General Inspector Relationship Specialty Start Date End Date Regan Ortega PCP - General Family Practice 10/11/19 General Inspector Relationship Specialty Start Date End Date Joshua Regan Vilchis PCP - General Family Practice 10/11/19 General Inspector Relationship Specialty Start Date End Date JoshuaRegan PCP - General Family Practice 10/11/19 General Inspector Relationship Specialty Start Date End Date Joshua Regan Vilchis PCP - General Family Medicine 10/11/19 General Inspector Relationship Specialty Start Date End Date JoshuaRegan PCP - General Family Medicine 10/11/19 General Inspector Relationship Specialty Start Date End Date JoshuaRegan PCP - General Family Medicine 10/11/19 General Inspector Relationship Specialty Start Date End Date JoshuaRegan PCP - General Family Medicine 10/11/19 Team Status: Active Member Role Status Dates Shaikh Maine MD Primary Care Provider Active Team Status: Inactive Member Role Status Dates Shaikh Maine MD Primary Care Provider Active Agustin Nj MD Attending Provider Active General Inspector Relationship Specialty Start Date End Date JoshuaRegan PCP - General Family Medicine 10/11/19 General Inspector Relationship Specialty Start Date End Date Regan Ortega PCP - General Family Medicine 10/11/19 General Inspector Relationship Specialty Start Date End Date Jairo Tapia DO [address] [place] [id number] PCP - General 09/28/15 General Inspector Relationship Specialty Start Date End Date Jairo Tapia DO [address] [place], [place] [id number] PCP - General 09/28/15 General Inspector Relationship Specialty Start Date End Date Jairo Tapia DO [address] [place] [address] PCP - General 09/28/15 General Inspector Relationship Specialty Start Date End Date Jairo Tapia, [address] [place] [address] [facility] 09/28/15 Goals (unrecognized section and content) Goals may be documented in a n alternate section FOR RECORDS PERTAINING TO PATIENTS WHO ARE OR HAVE BEEN ENROLLED IN A CHEMICAL DEPENDENCY/SUBSTANCEABUSE PROGRAM, SOME INFORMATION MAY BE OMITTED. This clinical summary was aggregated from multiple sources. Caution should be exercised in using it in the provision of clinical care. This summary normalizes information from multiple sources, and as a consequence, information in this document may materially change the coding, format and clinical context of patient data. In addition, data may be omitted in some cases. CLINICAL DECISIONS SHOULD BE BASED ON THE PRIMARY CLINICAL RECORDS. [facility] [employer] [facility]. provides no warranty or guarantee of the accuracy or completeness of information in this document.
--- NOTE | 2023-11-01 13:55 | ECG_ITS ---
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
[2023-11-01 14:03] VITALS: PULSE 81; RESP 20
[2023-11-01 14:10] VITALS: PULSE 76; RESP 14
--- NOTE | 2023-11-01 14:14 | XR_ITS ---
The [address] [address] Patient Name: JOIE LANGSTON MRN: [id number] date: 1955 Sex: M Assigned Patient Location: ER Current Patient Location: ER Accession/Order Number: [id number] Exam Date: 11/01/2023 14:35 Report Date: 11/01/2023 15:02 At the request of: BALAJI BHAT Procedure: XR knee LT 4V 4 views of the left knee INDICATION: Pain COMPARISON: None XR/XR knee LT 4V IMPRESSION: Left knee arthroplasty hardware with longstem tibial and femoral components noted in place. A curvilinear prosthesis component is present along the medial aspect of the distal femur which may reflect medial femoral condyle fracture, age indeterminate. Remainder of the prosthesis appears intact. Small suprapatellar joint effusion. Extensive heterotopic ossification about the knee. Electronically authenticated by: SUKUMAR SEGOVIA Date: 11/01/2023 15:02
[2023-11-01 14:20] VITALS: PULSE 76; RESP 16
[2023-11-01 14:20] LABS: Basophils Absolute Auto 0.1 10^3/uL (0.0-0.1); Basophils Percent Auto 0.6 % (0.2-2.0); Eosinophils Absolute Auto 0.5 10^3/uL (0.0-0.7); Eosinophils Percent Auto 5.6 % (0.9-7.0); Hematocrit 37.8 % (42.0-54.0); Hemoglobin 12.4 g/dL (14.0-18.0); Immature Granulocytes Abs Auto 0.02 10^3/uL (0.00-0.03); Immature Granulocytes Pct Auto 0.2 % (0.0-0.5); Lymphocytes Absolute Auto 1.3 10^3/uL (1.2-3.8); Lymphocytes Percent Auto 15.5 % (20.5-60.0); Mean Corpuscular HGB Conc 32.8 g/dL (29.9-35.2); Mean Corpuscular Hemoglobin 28.9 pg (25.9-34.0); Mean Corpuscular Volume 88.1 fL (80.0-94.0); Monocytes Absolute Auto 0.7 10^3/uL (0.3-0.8); Monocytes Percent Auto 8.2 % (1.7-12.0); Neutrophils Absolute Auto 5.6 10^3/uL (1.4-6.5); Neutrophils Percent Auto 69.9 % (43.0-75.0); Platelet Count 174 10^3/uL (150-450); Red Blood Count 4.29 10^6/uL (4.70-6.10); Red Cell Distribution Width 13.4 % (11.0-15.0); White Blood Count 8.1 10^3/uL (4.0-11.0)
[2023-11-01] MEDS: KETOROLAC TROMETHAMINE 30 MG/ML VIAL 15 MG IVP (14:23)
[2023-11-01 14:30] VITALS: PULSE 75; RESP 17
[2023-11-01 14:34] LABS: Alanine Aminotransferase 27 U/L (16-63); Albumin Globulin Ratio 0.8; Alkaline Phosphatase 103 U/L (46-116); Anion Gap 11.1; Aspartate Amino Transferase 21 U/L (15-37); BUN Creatinine Ratio 8.2; Bilirubin Total 0.4 mg/dL (0.2-1.0); Calcium 8.7 mg/dL (8.5-10.1); Carbon Dioxide 27.8 mmol/L (21.0-32.0); Chloride 100 mmol/L (98-107); Estimated GFR (African America >60 (>=60); Estimated GFR (Non-African Ame >60 (>=60); Globulin 3.7 g/dL; Glucose 214 mg/dL (74-106); Potassium 3.9 mmol/L (3.5-5.1); Sodium 135 mmol/L (136-145); Total Protein 6.7 g/dL (6.4-8.2)
[2023-11-01 14:42] LABS: INR 1.03; Prothrombin Time 10.9 sec (9.0-11.6)
[2023-11-01 14:46] LABS: D Dimer 5.47 mg/L FEU (<=0.59)
[2023-11-01] MEDS: OXYCODONE HCL/ACETAMINOPHEN 5MG/325MG 1 TAB PO (15:02)
[2023-11-01 15:04] VITALS: BP 126/76; O2SAT 100
--- NOTE | 2023-11-01 15:38 | ED.LOWEXI1 ---
HPI - Extremity Injury (Lower) General Chief Complaint: Extremity Injury, Lower Stated Complaint: LOWER EXTREMITY PAIN LEFT LEG Time Seen by Provider: 11/01/23 13:16 Source: patient Mode of arrival: walk-in Limitations: no limitations History of Present Illness HPI Narrative: Had a right knee replacement in July 2023 is coming to us with a left knee swelling that he noted over the last few days. The patient is not very good historian as he mentioned that he did not give a specific timing. There was no fall or trauma and he presented to the ER because he is worried about a blood clot Related Data Home Medications Medication Instructions Recorded Confirmed amlodipine 5 mg tablet 5 mg PO DAILY 07/20/23 07/20/23 aspirin 325 mg tablet 325 mg PO DAILY 07/20/23 07/20/23 atorvastatin 10 mg tablet 10 mg PO DAILY 07/20/23 07/20/23 azelastine 137 mcg (0.1 %) nasal 1 spray intranasal Q12H 07/20/23 07/20/23 spray aerosol buspirone 30 mg tablet 30 mg PO BID 07/20/23 07/20/23 clonazepam 1 mg tablet 1 mg PO Q8H 07/20/23 07/20/23 cyclobenzaprine 10 mg tablet 10 mg PO Q8H 07/20/23 07/20/23 fluticasone furoate 100 1 inh inhalation Q24H 07/20/23 07/20/23 mcg-vilanterol 25 mcg/dose inhalation powder (Breo Ellipta) fluticasone propionate 50 2 spray intranasal DAILY 07/20/23 07/20/23 mcg/actuation nasal spray,suspension gabapentin 300 mg capsule 300 mg PO Q8H 07/20/23 07/20/23 glimepiride 4 mg tablet 4 mg PO BID 07/20/23 07/20/23 hydroxyzine HCl 25 mg tablet 25 mg PO Q8H 07/20/23 07/20/23 levothyroxine 125 mcg tablet 125 mcg PO DAILY 07/20/23 07/20/23 lisinopril 20 mg tablet 20 mg PO DAILY 07/20/23 07/20/23 loratadine 10 mg tablet 10 mg PO Q24H 07/20/23 07/20/23 meloxicam 7.5 mg tablet 7.5 mg PO DAILY 07/20/23 07/20/23 metformin 850 mg tablet 850 mg PO BID 07/20/23 07/20/23 prazosin 1 mg capsule 1 mg PO DAILY 07/20/23 07/20/23 tramadol 50 mg tablet 50 mg PO Q12H 07/20/23 07/20/23 venlafaxine 150 mg 150 mg PO DAILY 07/20/23 07/20/23 capsule,extended release 24 hr Previous Rx's Medication Instructions Recorded amoxicillin 875 mg-potassium 1 tab PO BID #20 tabs 07/20/23 clavulanate 125 mg tablet hydrocodone 5 mg-acetaminophen 325 1 tab PO Q6H PRN pain 5 days #20 07/20/23 mg tablet tabs methylprednisolone 4 mg tablets in 4 mg PO DAILY #21 ea 11/01/23 a dose pack (Methylpred DP) Allergies Allergy/AdvReac Type Severity Reaction Status Date / Time morphine Allergy Verified 07/20/23 04:16 Review of Systems ROS Status of ROS 10 or more systems reviewed and unremarkable except as noted in history and below PFSH PFS Social History Smoking status: Never smoker Exam Narrative Exam Narrative: Nurses notes and vital signs reviewed and patient is not hypoxic. General: Well-appearing and in no apparent distress. Skin: Warm, dry, no pallor noted. No rash. Head: Normocephalic, atraumatic. Neck: Supple, non-tender. Eye: Pupils are equal, round and EOMI. No scleral icterus. Ears, Nose, Mouth, and Throat: TM are clear, no nasal mucosal hypertrophy. Oral mucosa is moist, no posterior oropharynx erythema, uvula is mid-line Cardiovascular: Regular Rate and Rhythm without murmur, gallop or rub. Respiratory: No accessory muscle use or respiratory distress. Lungs are clear to auscultation, no wheezing, rales or rhonchi Chest Wall: no tenderness Back: No midline thoracic or lumbar vertebral tenderness. No CVA tenderness Musculoskeletal: The patient have a left medial aspect swelling of the knee that is significant there is no swelling in the posterior aspect of the knee as well as cough the patient have a good anterior tibial pulse with no vascular injury detected. GI: Abdomen is soft, non-distended. Normal bowel sounds. No masses appreciated. No tenderness to palpation. No rebound, guarding, or rigidity noted. Neurological: A&O x4. No cranial nerve dysfunction observed. No truncal ataxia. Moves all extremities. Sensation intact. Psychiatric: Cooperative and interactive. Normal mood and affect. Constitutional Vital Signs, click to edit/add: Last Vital Signs Temp 97.6 F 11/01/23 13:11 Pulse 75 11/01/23 14:30 Resp 17 11/01/23 14:30 BP 126/76 11/01/23 15:04 Pulse Ox 100 11/01/23 15:04 O2 Del Method Room Air 11/01/23 13:11 Course Vital Signs Vital signs: Vital Signs Temperature 97.6 F 11/01/23 13:11 Pulse Rate 89 11/01/23 13:11 Respiratory Rate 20 11/01/23 13:11 Blood Pressure 168/86 H 11/01/23 13:11 Pulse Oximetry 98 11/01/23 13:11 Oxygen Delivery Method Room Air 11/01/23 13:11 Temperature 97.6 F 11/01/23 13:11 Pulse Rate 75 11/01/23 14:30 Respiratory Rate 17 11/01/23 14:30 Blood Pressure 126/76 11/01/23 15:04 Pulse Oximetry 100 11/01/23 15:04 Oxygen Delivery Method Room Air 11/01/23 13:11 MDM - Extremity Injury (Lower) MDM Narrative Medical decision making narrative: The patient CBC chemistry showed no acute pathology and the x-ray shows possible chronic changes that were discussed with Dr. Duenas the orthopedic doctor online content coordinator. The patient D-dimer is elevated he will still get ultrasound duplex as outpatient to be reported to his primary care. Right now Umair wrap will be applied in addition to Medrol Dosepak and Tylenol The patient referred to orthopedic as outpatient The patient to come back in case of any symptoms or concerns Lab Data Labs: Lab Results 11/01/23 Range/Units 14:12 WBC 8.1 (4.0-11.0) 10^3/uL RBC 4.29 L (4.70-6.10) 10^6/uL Hgb 12.4 L (14.0-18.0) g/dL Hct 37.8 L (42.0-54.0) % MCV 88.1 (80.0-94.0) fL MCH 28.9 (25.9-34.0) pg MCHC 32.8 (29.9-35.2) g/dL RDW 13.4 (11.0-15.0) % Plt Count 174 (150-450) 10^3/uL MPV 9.0 L (9.5-13.5) fL Neut % (Auto) 69.9 (43.0-75.0) % Lymph % (Auto) 15.5 L (20.5-60.0) % Schley % (Auto) 8.2 (1.7-12.0) % Eos % (Auto) 5.6 (0.9-7.0) % Baso % (Auto) 0.6 (0.2-2.0) % Neut # (Auto) 5.6 (1.4-6.5) 10^3/uL Lymph # (Auto) 1.3 (1.2-3.8) 10^3/uL Schley # (Auto) 0.7 (0.3-0.8) 10^3/uL Eos # (Auto) 0.5 (0.0-0.7) 10^3/uL Baso # (Auto) 0.1 (0.0-0.1) 10^3/uL Abs Immat Gran (auto) 0.02 (0.00-0.03) 10^3/uL Imm/Tot Granulo (auto) 0.2 (0.0-0.5) % PT 10.9 (9.0-11.6) sec INR 1.03 D-Dimer 5.47 H* (<=0.59) mg/L FEU Sodium 135 L (136-145) mmol/L Potassium 3.9 (3.5-5.1) mmol/L Chloride 100 (98-107) mmol/L Carbon Dioxide 27.8 (21.0-32.0) mmol/L Anion Gap 11.1 BUN 7.0 (7.0-18.0) mg/dL Creatinine 0.85 (0.70-1.30) mg/dL Est GFR ( Amer) >60 (>=60) Est GFR (Non-Af Amer) >60 (>=60) BUN/Creatinine Ratio 8.2 Glucose 214 H (74-106) mg/dL Calcium 8.7 (8.5-10.1) mg/dL Total Bilirubin 0.4 (0.2-1.0) mg/dL AST 21 (15-37) U/L ALT 27 (16-63) U/L Alkaline Phosphatase 103 (46-116) U/L Total Protein 6.7 (6.4-8.2) g/dL Albumin 3.0 L (3.4-5.0) g/dL Globulin 3.7 g/dL Albumin/Globulin Ratio 0.8 Discharge Plan Discharge Chief Complaint: Extremity Injury, Lower Clinical Impression: Edema of knee Patient Disposition: Home, Self-Care Time of Disposition Decision: 15:42 Condition: Good Prescriptions / Home Meds: New methylprednisolone [Methylpred DP] 4 mg tablets,dose pack 4 mg PO DAILY Qty: 21 0RF Rx Instructions: please take as per the dose Denys instruction No Action amlodipine 5 mg tablet 5 mg PO DAILY aspirin 325 mg tablet 325 mg PO DAILY atorvastatin 10 mg tablet 10 mg PO DAILY azelastine 137 mcg (0.1 %) aerosol,spray 1 spray INTRANASAL Q12H buspirone 30 mg tablet 30 mg PO BID clonazepam 1 mg tablet 1 mg PO Q8H cyclobenzaprine 10 mg tablet 10 mg PO Q8H fluticasone furoate-vilanterol [Breo Ellipta] 100-25 mcg/dose blister with device 1 inh INHALATION Q24H fluticasone propionate 50 mcg/actuation spray,suspension 2 spray INTRANASAL DAILY gabapentin 300 mg capsule 300 mg PO Q8H glimepiride 4 mg tablet 4 mg PO BID hydroxyzine HCl 25 mg tablet 25 mg PO Q8H levothyroxine 125 mcg tablet 125 mcg PO DAILY lisinopril 20 mg tablet 20 mg PO DAILY loratadine 10 mg tablet 10 mg PO Q24H meloxicam 7.5 mg tablet 7.5 mg PO DAILY metformin 850 mg tablet 850 mg PO BID prazosin 1 mg capsule 1 mg PO DAILY tramadol 50 mg tablet 50 mg PO Q12H venlafaxine 150 mg capsule,extended release 24hr 150 mg PO DAILY amoxicillin-pot clavulanate 875-125 mg tablet 1 tab PO BID Qty: 20 0RF hydrocodone-acetaminophen 5-325 mg tablet 1 tab PO Q6H PRN (Reason: pain) 5 Days Qty: 20 0RF Instructions: Swollen Joint (ED) Stand Alone Forms: Portal Instructions Referrals: Shaikh Grove MD [Primary Care Provider] - 1 week
== END 2023-11-01 16:15 | disposition home or self-care (01) ==
PROVIDERS: Emergency Provider Emergency Medicine; PCP Internal Medicine
DX: M25.462 Effusion, left knee (principal); Z96.651 Presence of right artificial knee joint; R79.1 Abnormal coagulation profile; Z79.82 Long term (current) use of aspirin; Z79.899 Other long term (current) drug therapy; Z79.890 Hormone replacement therapy; Z79.84 Long term (current) use of oral hypoglycemic drugs
CPT/HCPCS: 36415; 73564; 80053; 85025; 85378; 85610; 93005; 96374; 99285; J1885

== ENCOUNTER 2023-11-02 08:14 | Outpatient (OUT) | payer OTHER, SELFPAY ==
--- OUTSIDE RECORDS SUMMARY | 2023-11-02 08:19 | XMS_ITS | CCD ---
Author Name Unknown Address [address] [place] [address] Organization [facility] Care Team Providers Care Content Curator Name Role Phone PHYSICIAN, DEFAULT Unavailable Unavailable PHYSICIAN, DEFAULT Unavailable Unavailable Naderer, Regan A Primary Care Provider [phone] Agustin Nj Unavailable Marlin Vasquez Unavailable Naderer, [...] MCMILLAN Admitting Unavailable OLGA DRAKE Consulting Unavailable ACYLA MARTIN Consulting Unavailable DR BRENDA THOMPSON Admitting [...] Jose Francisco Buck Attending Unavailable Jose Francisco uBck Admitting Unavailable Dr. Mily Marlow Referring Unavaila ble Dr. Mily Marlow Attending Unavaila ble UNKNOWN, PCP Primary Care Unavailable MD Lalito Grove Primary Care Provider MD Agustin Nj Attending Provider NONE, XXXX [...] Attending Unavailable LAUREN SHETH Attending Unavailable Linden APNS-STITCHING MACHINE FEEDER OR OFFBEARER, Linh Nichols Attending U christiano Simpson MD, Claudia Hall Admitting Jennifer Simpson MD, Claudia Hall Attending Starla Sheppard Consulting Unavailable Rubina WATERMAN, Johnny Pearson Consulting Unavailable Justin Mcgowan MD Consulting Unavailable Linden APNS-STITCHING MACHINE FEEDER OR OFFBEARER, Linh Nichols Attending U christiano Beaulieu MD, Jose Francisco Coates Attending Unavaila ble Linden APNS-STITCHING MACHINE FEEDER OR OFFBEARER, Linh Nichols Attending U navailable Linden APNS-STITCHING MACHINE FEEDER OR OFFBEARER, Linh Nichols Attending U navailable Linden APNS-STITCHING MACHINE FEEDER OR OFFBEARER, Linh Nichols Attending U christiano Cespedes MD, Johnny Pearson Attending Unavailable Linden MILLER-STITCHING MACHINE FEEDER OR OFFBEARER, Linh Nichols Attending U christiano Cespedes MD, Johnny Pearson Attending Unavailable Rubina WATERMAN, Johnny Pearson Attending Unavailable Linden APNS-STITCHING MACHINE FEEDER OR OFFBEARER, Linh Nichols Attending U navailable Montero APNS-STITCHING MACHINE FEEDER OR OFFBEARER, Lucía Delcid Attending Adina Beaulieu MD, Jose Francisco Coates Attending Unavaila ble Montero APNS-STITCHING MACHINE FEEDER OR OFFBEARER, Lucía Delcid Attending Adina Cheatham APRN-STITCHING MACHINE FEEDER OR OFFBEARER, Linh Nichols Attending U navailable Linden APNS-STITCHING MACHINE FEEDER OR OFFBEARER, Linh Nichols Attending U christiano Allergies Allergy Classification Reported Allergen(s) Allergy Type Date of Onset Reaction(s) Facility (20 sources) Morphine; 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: [MORPHINE] Drug Allergy 05-25-20 14 Rash, Itching [facility] (5 sources) Penicillins; 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: [PENICILLINS] Drug Allergy 01-17-20 15 Itching [facility] (12 sources) Bee Sting; 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: [BEE STING] Allergy to substance 08-18-20 18 Swelling, Anaphylaxis [facility] (6 sources) Amoxicillin / Clavulanate Drug Allergy rash [employer] [facility] [employer] Other (10 sources) Bee/Wasp/Ant venom; 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: [Bee Stings] Propensity to adverse reactions Difficulty breathing (finding) [facility] (8 sources) cefdinir Drug Allergy Panic Attacks, Palpitations, SOB [employer] [facility] [employer] Other (6 sources) Penicillins Drug Allergy 01-17-20 15 Itching [facility] (1 source) Acetaminophen / HYDROcodone Drug Allergy [facility] (1 source) bee venom Drug allergy (disorder) 09-23-20 16 [facility] (1 source) Morphine Drug Allergy 05-12-20 14 [facility] (1 source) Penicillins Drug allergy (disorder) 01-17-20 15 [facility] (2 sources) Amoxicillin / Clavulanate Drug Allergy rash [employer] Other (1 source) Morphine Drug Allergy 04-14-20 23 [facility] Repository (1 source) No Known Medication Allergies; 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: [No Known Medication Allergies] Propensity to adverse reactions to drug (disorder) [facility] Repository Medications Current Medications Medication Drug Class(es) Dates Sig (Normalized) Sig (Original) [id number] 200 actuat albuterol 0.09 mg/actuat metered dose [...] Comment on above: Take 1 tablet by [facility] three times daily for 90 days. Take 1 tablet by [facility] three times daily for 180 days. doxycycline monohydrate 100 mg oral tablet (6 sources) Tetracycline-cla ss Drug Start: 11-06-2022 End: 11-16-2022 take 1 tablet by mouth twice daily doxycycline monohydrate 100 mg tablet Take 1 tablet by mouth twice daily for 10 days. 20 tablet 0 11/06/2022 11/16/2022 Active Start: 04-09-2022 take 1 capsule by [facility] every twelve hours Doxycycline Hyclate 100 MG 1 capsule Orally Twice a day for 10 day(s) Mar, Active Comment on above: Take 1 tablet by [facility] twice daily for 10 days. famotidine 20 [...] Status: Ordered take 1 capsule by mo [facility] three times daily gabapentin (NEURONTIN) 300 mg capsule Ta ke 300 mg by mouth three times daily. 0 Active take 3 capsules by m [facility] every twenty-four hours Neurontin 100 mg 3 [...] 0 Active take 1 capsule by mo [facility] once daily before breakfast Levothyroxine Sodium 125 [...] days, # 50 tab(s), Refills(s) 2, Pharmacy: [id number], 187.5, cm, 03/27/23 9:49:00 EDT, Height/Length [...] Start: 02-03-2023 take 1 capsule by mo [facility] every twenty-four hours Venlafaxine HCl ER 75 [...] Comment on above: Take 1 tablet by [facility] every 8 hours as needed for pain. aspirin 81 mg chewable tablet (10 sources) Platelet Aggregation Inhibitor, Nonsteroidal Anti-inflammatory Drug Start: 06-08-2014 take 1 tablet by mouth twice daily aspirin 81 mg chewable tablet Take 1 tablet by mouth twice daily. 56 tablet 0 06/08/2014 Active Comment on above: Take 1 tablet by [facility] twice daily. 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 Noted last hospitalization at [facility] from 07/21/23-07/30/23. Pertinent past medical history includes: Type 2 diabetes mellitus, hypertension, gout, depression with anxiety, COPD with emphysema. Originally underwent right knee replacement 3 weeks prior and presented to outside hospital for increasing pain with edema in which she was transferred to [facility] for further eval. Patient found to have [...] twice daily Metformin 850 mg twice daily Trosper diabetic diet 4. Hypertension Stable, follow up [...] Physician Comments Patient to discharge home with [facility] services Social (more content not included)... Normal [facility] .eGFRon 08-31-2023 GFR/1.73 sq M.predicted MDRD (S/P/Bld) [Vol rate/Area] mL/min/{1.73_m2} Normal >=60 [facility] Comment on above: Result Comment: [facility] have implemented the eGFR calculation [...] years Performed By: #### E GFR #### [place] [id number] CBC w/ Diffon 08-31-2023 Erythrocyte distribution width (RBC) [Ratio] 13.9 % Normal 11.6-14.8 [facility] Comment on above: Performed By: #### E GFR #### [place] [id number] Hematocrit (Bld) [Volume fraction] 36.6 % Low 41.0-53.0 [facility] Comment on above: Performed By: #### E GFR #### [place] [id number] Hemoglobin (Bld) [Mass/Vol] 12.2 g/dL Low 13.5-17.5 [facility] Comment on above: Performed By: #### E GFR #### [address] [address] MCH (RBC) [Entitic mass] 30.1 pg Normal 27.0-35.0 [facility] Comment on above: Performed By: #### E GFR #### [place] [id number] MCHC 33.3 % Normal 31.0-37.0 [facility] Comment on above: Performed By: #### E GFR #### [address] [address] MCV (RBC) [Entitic vol] 90.4 fL Normal 80.0-100.0 [facility] Comment on above: Performed By: #### E GFR #### [place] [id number] Platelet 138 x10*3/mcL Low 150-450 [facility] Comment on above: Performed By: #### E GFR #### [address] [address] Platelet mean volume (Bld) [Entitic vol] 8.4 fL Normal 6.7-10.6 [facility] Comment on above: Performed By: #### E GFR #### [address] [address] RBC 4.05 x10*6/mcL Low 4.30-5.80 [facility] Comment on above: Performed By: #### E GFR #### [address] [address] WBC 6.9 x10*3/mcL Normal 4.5-11.0 [facility] Comment on above: Performed By: #### E GFR #### [address] [address] CMPon 08-31-2023 Albumin [Mass/Vol] 3.7 g/dL Normal 3.2-4.9 [facility] Comment on above: Performed By: #### C OMP ####[address] [address] Albumin/Globulin [Mass ratio] 1.2 {ratio} Normal 1.1-2.2 [facility] Comment on above: Performed By: #### C OMP ####[address] [address] Alk Phos 83 IU/L Normal 32-91 [facility] Comment on above: Performed By: #### C OMP ####[address] [address] ALT [Catalytic activity/Vol] 14 U/L Low 17-63 [facility] Comment on above: Performed By: #### C OMP ####[address] [address] Anion gap [Moles/Vol] 11 mmol/L Normal 7-17 [facility] Comment on above: Performed By: #### C OMP ####[address] [address] AST [Catalytic activity/Vol] 16 U/L Normal 15-41 [facility] Comment on above: Performed By: #### C OMP ####[address] [address] Bili Total 0.3 mg/dL Normal 0.3-1.2 [facility] Comment on above: Performed By: #### C OMP ####[address] [address] Calcium [Mass/Vol] 8.8 mg/dL Normal 8.5-10.3 [facility] Comment on above: Performed By: #### C OMP ####[address] [address] Chloride [Moles/Vol] 99 mmol/L Normal 98-110 [facility] Comment on above: Performed By: #### C OMP ####[address] [address] CO2 [Moles/Vol] 26 mmol/L Normal 22-32 [facility] Comment on above: Performed By: #### C OMP ####[address] [address] Creatinine [Mass/Vol] 0.78 mg/dL Normal 0.61-1.24 [facility] Comment on above: Performed By: #### C OMP ####[address] [address] Glucose [Mass/Vol] 211 mg/dL High 70-99 [facility] Comment on above: Performed By: #### C OMP ####[address] [address] Potassium [Moles/Vol] 4.3 mmol/L Normal 3.4-4.8 [facility] Comment on above: Performed By: #### C OMP ####[address] [address] Protein [Mass/Vol] 6.7 g/dL Normal 6.5-8.1 [facility] Comment on above: Performed By: #### C OMP ####[address] [address] Sodium [Moles/Vol] 132 mmol/L Low 133-142 [facility] Comment on above: Performed By: #### C OMP ####[address] [address] Urea nitrogen [Mass/Vol] 19 mg/dL Normal 8-26 [facility] Comment on above: Performed By: #### C OMP ####[address] [address] Urea nitrogen/Creatinine [Mass ratio] 24.4 mg/mg High 10.0-20.0 [facility] Comment on above: Performed By: #### C OMP ####[address] [address] CRPon 08-31-2023 CRP 0.61 mg/dL Normal 0.00-0.75 [facility] Comment on above: Result Comment: CRP measurement is useful for assessment of non-specific INFLAMMATORY RESPONSE to infection or injury AND is a sensitive MARKER of ACUTE INFLAMMATION including CARDIAC RISK ASSESSMENT. CARDIAC patients with elevated CRP are POTENTIALLY at a HIGHER RISK OF FUTURE CARDIAC EVENTS. Performed By: #### M G #### [address] [address] Diff Autoon 08-31-2023 Baso Absolute 0.1 x10*3/mcL Normal 0.0-0.2 [facility] Comment on above: Performed By: #### E GFR #### [address] [address] Basophils/100 WBC (Bld) 1.2 % Normal 0.0-1.2 [facility] Comment on above: Performed By: #### E GFR #### [address] [address] Eos Absolute 0.5 x10*3/mcL High 0.0-0.4 [facility] Comment on above: Performed By: #### E GFR #### [address] [address] Eosinophils/100 WBC (Bld) 8.0 % High 0.0-6.1 [facility] Comment on above: Performed By: #### E GFR #### [address] [address] Lymph Absolute 1.5 x10*3/mcL Normal 1.0-4.8 [facility] Comment on above: Performed By: #### E GFR #### [address] [address] Lymphocytes/100 WBC (Bld) 21.2 % Low 27.2-40.8 [facility] Comment on above: Performed By: #### E GFR #### [address] [address] Fannin Absolute 0.7 x10*3/mcL Normal 0.3-1.1 [facility] Comment on above: Performed By: #### E GFR #### [address] [address] Monocytes/100 WBC (Bld) 10.1 % Normal 4.7-13.9 [facility] Comment on above: Performed By: #### E GFR #### [address] [address] Neutro Absolute 4.1 x10*3/mcL Normal 1.8-7.7 [facility] Comment on above: Performed By: #### E GFR #### [address] [address] Neutro Auto 59.5 % Normal 47.2-70.8 [facility] Comment on above: Performed By: #### E GFR #### [address] [address] ESRon 08-31-2023 Sed Rate 10 mm/hr Normal 0-23 [facility] Comment on above: Performed By: #### C [id number] #### [address] [address] Vanco Troughon 08-31-2023 Vanco Trough 15.70 mcg/mL High 10.00-15.00 [facility] Comment on above: Performed By: #### V ANCT ####[address] [address] .eGFRon 08-27-2023 GFR/1.73 sq M.predicted MDRD (S/P/Bld) [Vol rate/Area] mL/min/{1.73_m2} Normal >=60 [facility] Comment on above: Result Comment: [facility] have implemented the eGFR calculation [...] years Performed By: #### E SR #### [address] [address] BUNon 08-27-2023 Urea nitrogen [Mass/Vol] 16 mg/dL Normal 8-26 [facility] Comment on above: Performed By: #### B UN ####[address] [address] Creatinineon 08-27-2023 Creatinine [Mass/Vol] 0.76 mg/dL Normal 0.61-1.24 [facility] Comment on above: Performed By: #### C CORNELIO ####[address] [address] Vanco Troughon 08-27-2023 Vanco Trough 11.40 mcg/mL Normal 10.00-15.00 [facility] Comment on above: Performed By: #### E SR #### [address] [address] .eGFRon 08-24-2023 GFR/1.73 sq M.predicted MDRD (S/P/Bld) [Vol rate/Area] mL/min/{1.73_m2} Normal >=60 [facility] Comment on above: Result Comment: [facility] have implemented the eGFR calculation [...] years Performed By: #### M G #### [address] [address] CBC w/ Diffon 08-24-2023 Erythrocyte distribution width (RBC) [Ratio] 14.0 % Normal 11.6-14.8 [facility] Comment on above: Performed By: #### E SR #### [address] [address] Hematocrit (Bld) [Volume fraction] 36.3 % Low 41.0-53.0 [facility] Comment on above: Performed By: #### E SR #### [address] [address] Hemoglobin (Bld) [Mass/Vol] 12.1 g/dL Low 13.5-17.5 [facility] Comment on above: Performed By: #### E SR #### [address] [address] MCH (RBC) [Entitic mass] 30.6 pg Normal 27.0-35.0 [facility] Comment on above: Performed By: #### E SR #### [address] [address] MCHC 33.4 % Normal 31.0-37.0 [facility] Comment on above: Performed By: #### E SR #### [address] [address] MCV (RBC) [Entitic vol] 91.8 fL Normal 80.0-100.0 [facility] Comment on above: Performed By: #### E SR #### [address] [address] Platelet 127 x10*3/mcL Low 150-450 [facility] Comment on above: Performed By: #### E SR #### [address] [address] Platelet mean volume (Bld) [Entitic vol] 8.3 fL Normal 6.7-10.6 [facility] Comment on above: Performed By: #### E SR #### [address] [address] RBC 3.95 x10*6/mcL Low 4.30-5.80 [facility] Comment on above: Performed By: #### E SR #### [address] [address] WBC 6.8 x10*3/mcL Normal 4.5-11.0 [facility] Comment on above: Performed By: #### E SR #### [address] [address] CMPon 08-24-2023 Albumin [Mass/Vol] 3.5 g/dL Normal 3.2-4.9 [facility] Comment on above: Performed By: #### C OMP ####[address] [address] Albumin/Globulin [Mass ratio] 1.1 {ratio} Normal 1.1-2.2 [facility] Comment on above: Performed By: #### C OMP ####[address] [address] Alk Phos 86 IU/L Normal 32-91 [facility] Comment on above: Performed By: #### C OMP ####[address] [address] ALT [Catalytic activity/Vol] 18 U/L Normal 17-63 [facility] Comment on above: Performed By: #### C OMP ####[address] [address] Anion gap [Moles/Vol] 14 mmol/L Normal 7-17 [facility] Comment on above: Performed By: #### C OMP ####[address] [address] AST [Catalytic activity/Vol] 20 U/L Normal 15-41 [facility] Comment on above: Performed By: #### C OMP ####[address] [address] Bili Total 0.2 mg/dL Low 0.3-1.2 [facility] Comment on above: Performed By: #### C OMP ####[address] [address] Calcium [Mass/Vol] 9.0 mg/dL Normal 8.5-10.3 [facility] Comment on above: Performed By: #### C OMP ####[address] [address] Chloride [Moles/Vol] 98 mmol/L Normal 98-110 [facility] Comment on above: Performed By: #### C OMP ####[address] [address] CO2 [Moles/Vol] 26 mmol/L Normal 22-32 [facility] Comment on above: Performed By: #### C OMP ####[address] [address] Creatinine [Mass/Vol] 0.80 mg/dL Normal 0.61-1.24 [facility] Comment on above: Performed By: #### C OMP ####[address] [address] Glucose [Mass/Vol] 243 mg/dL High 70-99 [facility] Comment on above: Performed By: #### C OMP ####[address] [address] Potassium [Moles/Vol] 4.8 mmol/L Normal 3.4-4.8 [facility] Comment on above: Performed By: #### C OMP ####[address] [address] Protein [Mass/Vol] 6.8 g/dL Normal 6.5-8.1 [facility] Comment on above: Performed By: #### C OMP ####[address] [address] Sodium [Moles/Vol] 133 mmol/L Normal 133-142 [facility] Comment on above: Performed By: #### C OMP ####[address] [address] Urea nitrogen [Mass/Vol] 17 mg/dL Normal 8-26 [facility] Comment on above: Performed By: #### C OMP ####[address] [address] Urea nitrogen/Creatinine [Mass ratio] 21.2 mg/mg High 10.0-20.0 [facility] Comment on above: Performed By: #### C OMP ####[address] [address] CRPon 08-24-2023 CRP 0.98 mg/dL High 0.00-0.75 [facility] Comment on above: Result Comment: CRP measurement is useful for assessment of non-specific INFLAMMATORY RESPONSE to infection or injury AND is a sensitive MARKER of ACUTE INFLAMMATION including CARDIAC RISK ASSESSMENT. CARDIAC patients with elevated CRP are POTENTIALLY at a HIGHER RISK OF FUTURE CARDIAC EVENTS. Performed By: #### C RP ####[address] [address] Diff Autoon 08-24-2023 Baso Absolute 0.1 x10*3/mcL Normal 0.0-0.2 [facility] Comment on above: Performed By: #### . Automated Diff ####[address] [address] Basophils/100 WBC (Bld) 1.1 % Normal 0.0-1.2 [facility] Comment on above: Performed By: #### . Automated Diff ####[address] [address] Eos Absolute 0.6 x10*3/mcL High 0.0-0.4 [facility] Comment on above: Performed By: #### . Automated Diff ####[address] [address] Eosinophils/100 WBC (Bld) 9.0 % High 0.0-6.1 [facility] Comment on above: Performed By: #### . Automated Diff ####[address] [address] Lymph Absolute 1.2 x10*3/mcL Normal 1.0-4.8 [facility] Comment on above: Performed By: #### . Automated Diff ####[address] [address] Lymphocytes/100 WBC (Bld) 18.2 % Low 27.2-40.8 [facility] Comment on above: Performed By: #### . Automated Diff ####[address] [address] Fannin Absolute 0.6 x10*3/mcL Normal 0.3-1.1 [facility] Comment on above: Performed By: #### . Automated Diff ####[address] [address] Monocytes/100 WBC (Bld) 8.1 % Normal 4.7-13.9 [facility] Comment on above: Performed By: #### . Automated Diff ####[address] [address] Neutro Absolute 4.3 x10*3/mcL Normal 1.8-7.7 [facility] Comment on above: Performed By: #### . Automated Diff ####[place] [id number] Neutro Auto 63.6 % Normal 47.2-70.8 [facility] Comment on above: Performed By: #### . Automated Diff ####[place] [id number] ESRon 08-24-2023 Sed Rate 13 mm/hr Normal 0-23 [facility] Comment on above: Performed By: #### E SR #### [address] [address] Vanco Troughon 08-24-2023 Vanco Trough 14.40 mcg/mL Normal 10.00-15.00 [facility] Comment on above: Performed By: #### V ANCT ####[address] [address] Vanco Troughon 08-21-2023 Vanco Trough 35.70 mcg/mL High 10.00-15.00 [facility] Comment on above: Performed By: #### V ANCT ####[place] [id number] .eGFRon 08-20-2023 GFR/1.73 sq M.predicted MDRD (S/P/Bld) [Vol rate/Area] mL/min/{1.73_m2} Normal >=60 [facility] Comment on above: Result Comment: [facility] have implemented the eGFR calculation [...] = years Performed By: #### E GFR ####[address] [address] C Fungalon 08-20-2023 C Fungal -- - Final No growth at 4 weeks. Normal [facility] Comment on above: Performed By: #### F C ####[address] [address] [facility] Albumin [Mass/Vol] 3.4 g/dL Normal 3.2-4.9 [facility] Comment on above: Performed By: #### E SR #### [address] [address] Albumin/Globulin [Mass ratio] 1.1 {ratio} Normal 1.1-2.2 [facility] Comment on above: Performed By: #### E SR #### [address] [address] Alk Phos 88 IU/L Normal 32-91 [facility] Comment on above: Performed By: #### E SR #### [address] [place] [address] ALT [Catalytic activity/Vol] 25 U/L Normal 17-63 [facility] Comment on above: Performed By: #### E SR #### [address] [place] [address] Anion gap [Moles/Vol] 13 mmol/L Normal 7-17 [facility] Comment on above: Performed By: #### E SR #### [address] [place] [address] AST [Catalytic activity/Vol] 23 U/L Normal 15-41 [facility] Comment on above: Performed By: #### E SR #### [address] [address] Bili Total 0.3 mg/dL Normal 0.3-1.2 [facility] Comment on above: Performed By: #### E SR #### [address] [place] [address] Calcium [Mass/Vol] 8.8 mg/dL Normal 8.5-10.3 [facility] Comment on above: Performed By: #### E SR #### [address] [place] [address] Chloride [Moles/Vol] 99 mmol/L Normal 98-110 [facility] Comment on above: Performed By: #### E SR #### [address] [place] [address] CO2 [Moles/Vol] 24 mmol/L Normal 22-32 [facility] Comment on above: Performed By: #### E SR #### [address] [place] [address] Creatinine [Mass/Vol] 0.72 mg/dL Normal 0.61-1.24 [facility] Comment on above: Performed By: #### E SR #### [address] [place] [address] Glucose [Mass/Vol] 260 mg/dL High 70-99 [facility] Comment on above: Performed By: #### E SR #### [address] [address] Potassium [Moles/Vol] 5.3 mmol/L High 3.4-4.8 [facility] Comment on above: Performed By: #### E SR #### [address] [address] Protein [Mass/Vol] 6.4 g/dL Low 6.5-8.1 [facility] Comment on above: Performed By: #### E SR #### [address] [address] Sodium [Moles/Vol] 131 mmol/L Low 133-142 [facility] Comment on above: Performed By: #### E SR #### [address] [address] Urea nitrogen [Mass/Vol] 14 mg/dL Normal 8-26 [facility] Comment on above: Performed By: #### E SR #### [address] [address] Urea nitrogen/Creatinine [Mass ratio] 19.4 mg/mg Normal 10.0-20.0 [facility] Comment on above: Performed By: #### E SR #### [address] [address] Vanco Levelon 08-20-2023 Vanco Lvl 35.7 mcg/mL Normal 10.0-40.0 [facility] Comment on above: Result Comment: Ther apeutic Range for Vancomycin: Peak: 20.0 - 40.0 mcg/mL Trough: 10.0 - 15.0 mcg/mL Performed By: #### V ANC ####[address] [address] C Fungalon 08-19-2023 C Fungal -- - Final No growth at 4 weeks. Normal [facility] Comment on above: Performed By: #### F C ####[address] [address] .eGFRon 08-17-2023 GFR/1.73 sq M.predicted MDRD (S/P/Bld) [Vol rate/Area] mL/min/{1.73_m2} Normal >=60 [facility] Comment on above: Result Comment: [facility] have implemented the eGFR calculation [...] = years Performed By: #### E GFR ####[address] [address] CBC w/ Diffon 08-17-2023 Erythrocyte distribution width (RBC) [Ratio] 14.3 % Normal 11.6-14.8 [facility] Comment on above: Performed By: #### E GFR #### [address] [address] Hematocrit (Bld) [Volume fraction] 35.5 % Low 41.0-53.0 [facility] Comment on above: Performed By: #### E GFR #### [address] [address] Hemoglobin (Bld) [Mass/Vol] 12.0 g/dL Low 13.5-17.5 [facility] Comment on above: Performed By: #### E GFR #### [place] [id number] MCH (RBC) [Entitic mass] 31.1 pg Normal 27.0-35.0 [facility] Comment on above: Performed By: #### E GFR #### [place] [address] MCHC 33.9 % Normal 31.0-37.0 [facility] Comment on above: Performed By: #### E GFR #### [place] [id number] MCV (RBC) [Entitic vol] 91.8 fL Normal 80.0-100.0 [facility] Comment on above: Performed By: #### E GFR #### [place] [address] Platelet 139 x10*3/mcL Low 150-450 [facility] Comment on above: Performed By: #### E GFR #### [place] [address] Platelet mean volume (Bld) [Entitic vol] 8.4 fL Normal 6.7-10.6 [facility] Comment on above: Performed By: #### E GFR #### [place] [id number] RBC 3.87 x10*6/mcL Low 4.30-5.80 [facility] Comment on above: Performed By: #### E GFR #### [place] [id number] WBC 6.2 x10*3/mcL Normal 4.5-11.0 [facility] Comment on above: Performed By: #### E GFR #### [place] [id number] CMPon 08-17-2023 Albumin [Mass/Vol] 3.7 g/dL Normal 3.2-4.9 [facility] Comment on above: Performed By: #### C OMP ####[address] [address] Albumin/Globulin [Mass ratio] 1.1 {ratio} Normal 1.1-2.2 [facility] Comment on above: Performed By: #### C OMP ####[address] [address] Alk Phos 101 IU/L High 32-91 [facility] Comment on above: Performed By: #### C OMP ####[address] [address] ALT [Catalytic activity/Vol] 27 U/L Normal 17-63 [facility] Comment on above: Performed By: #### C OMP ####[address] [address] Anion gap [Moles/Vol] 13 mmol/L Normal 7-17 [facility] Comment on above: Performed By: #### C OMP ####[address] [address] AST [Catalytic activity/Vol] 23 U/L Normal 15-41 [facility] Comment on above: Performed By: #### C OMP ####[address] [address] Bili Total 0.3 mg/dL Normal 0.3-1.2 [facility] Comment on above: Performed By: #### C OMP ####[address] [address] Calcium [Mass/Vol] 8.8 mg/dL Normal 8.5-10.3 [facility] Comment on above: Performed By: #### C OMP ####[address] [address] Chloride [Moles/Vol] 97 mmol/L Low 98-110 [facility] Comment on above: Performed By: #### C OMP ####[address] [address] CO2 [Moles/Vol] 26 mmol/L Normal 22-32 [facility] Comment on above: Performed By: #### C OMP ####[address] [address] Creatinine [Mass/Vol] 0.70 mg/dL Normal 0.61-1.24 [facility] Comment on above: Performed By: #### C OMP ####[address] [address] Glucose [Mass/Vol] 119 mg/dL High 70-99 [facility] Comment on above: Performed By: #### C OMP ####[address] [address] Potassium [Moles/Vol] 4.4 mmol/L Normal 3.4-4.8 [facility] Comment on above: Performed By: #### C OMP ####[address] [address] Protein [Mass/Vol] 7.0 g/dL Normal 6.5-8.1 [facility] Comment on above: Performed By: #### C OMP ####[address] [address] Sodium [Moles/Vol] 132 mmol/L Low 133-142 [facility] Comment on above: Performed By: #### C OMP ####[address] [address] Urea nitrogen [Mass/Vol] 14 mg/dL Normal 8-26 [facility] Comment on above: Performed By: #### C OMP ####[address] [address] Urea nitrogen/Creatinine [Mass ratio] 20.0 mg/mg Normal 10.0-20.0 [facility] Comment on above: Performed By: #### C OMP ####[address] [address] CRPon 08-17-2023 CRP 1.33 mg/dL High 0.00-0.75 [facility] Comment on above: Result Comment: CRP measurement is useful for assessment of non-specific INFLAMMATORY RESPONSE to infection or injury AND is a sensitive MARKER of ACUTE INFLAMMATION including CARDIAC RISK ASSESSMENT. CARDIAC patients with elevated CRP are POTENTIALLY at a HIGHER RISK OF FUTURE CARDIAC EVENTS. Performed By: #### C RP ####[address] [address] Diff Autoon 08-17-2023 Baso Absolute 0.1 x10*3/mcL Normal 0.0-0.2 [facility] Comment on above: Performed By: #### . Automated Diff ####[address] [address] Basophils/100 WBC (Bld) 1.3 % High 0.0-1.2 [facility] Comment on above: Performed By: #### . Automated Diff ####[address] [address] Eos Absolute 0.7 x10*3/mcL High 0.0-0.4 [facility] Comment on above: Performed By: #### . Automated Diff ####[address] [address] Eosinophils/100 WBC (Bld) 12.0 % High 0.0-6.1 [facility] Comment on above: Performed By: #### . Automated Diff ####[address] [address] Lymph Absolute 1.4 x10*3/mcL Normal 1.0-4.8 [facility] Comment on above: Performed By: #### . Automated Diff ####[address] [address] Lymphocytes/100 WBC (Bld) 23.2 % Low 27.2-40.8 [facility] Comment on above: Performed By: #### . Automated Diff ####[address] [address] Fannin Absolute 0.7 x10*3/mcL Normal 0.3-1.1 [facility] Comment on above: Performed By: #### . Automated Diff ####[address] [address] Monocytes/100 WBC (Bld) 11.1 % Normal 4.7-13.9 [facility] Comment on above: Performed By: #### . Automated Diff ####[address] [address] Neutro Absolute 3.2 x10*3/mcL Normal 1.8-7.7 [facility] Comment on above: Performed By: #### . Automated Diff ####[address] [address] Neutro Auto 52.4 % Normal 47.2-70.8 [facility] Comment on above: Performed By: #### . Automated Diff ####[address] [address] ESRon 08-17-2023 Sed Rate 15 mm/hr Normal 0-23 [facility] Comment on above: Performed By: #### M G #### [address] [address] Long-term Care Office/Clinic Noteon 08-17-2023 Long-term Care Office/Clinic Note Chief Complaint new skilled pt at [facility] History of Present Illness Patient is a 68-year-old new admission to [facility]. He was at [facility] July 21 through July 30. He had [...] able t (more content not included)... Normal [facility] Vanco Troughon 08-17-2023 Vanco Trough 20.80 mcg/mL High 10.00-15.00 [facility] Comment on above: Performed By: #### V ANCT ####[place] [address] .eGFRon 08-13-2023 GFR/1.73 sq M.predicted MDRD (S/P/Bld) [Vol rate/Area] mL/min/{1.73_m2} Normal >=60 [facility] Comment on above: Result Comment: [facility] have implemented the eGFR calculation [...] Age = years Performed By: #### C [id number] #### [facility] [address] [place] [address] BUNon 08-13-2023 Urea nitrogen [Mass/Vol] 14 mg/dL Normal 06-13 [facility] Comment on above: Performed By: #### B UN ####[place] [address] Creatinineon 08-13-2023 Creatinine [Mass/Vol] 0.75 mg/dL Normal 0.61-1.24 [facility] Comment on above: Performed By: #### C CORNELIO ####[place] [id number] Provider Letteron 08-13-2023 Provider Letter Re: Joie Lu Date of Visit: 08/13/2023 11:30:00 Dear , In regards to our mutual patient Joie Lu. Attached you will find the most recent office visit note. Please call if you have any questions or concerns. Sincerely, Linh CHAPIN [facility] [address] [place] [address] Email: [email or web address] The following document(s) were included in the letter: August 13, 2023 11:38:55 EDT - (08/13/2023) Telehealth Office Visit Note Normal [facility] Vanco Troughon 08-13-2023 Vanco Trough 18.50 mcg/mL High 10.00-15.00 [facility] Comment on above: Performed By: #### V ANCT ####[facility] [place] [address] .eGFRon 08-10-2023 GFR/1.73 sq M.predicted MDRD (S/P/Bld) [Vol rate/Area] mL/min/{1.73_m2} Normal >=60 [facility] Comment on above: Result Comment: [facility] have implemented the eGFR calculation [...] years Performed By: #### E GFR #### [facility] [address] [place] [address] CBC w/ Diffon 08-10-2023 Erythrocyte distribution width (RBC) [Ratio] 14.4 % Normal 11.6-14.8 [facility] Comment on above: Performed By: #### C BC ####[facility] [place] [address] Hematocrit (Bld) [Volume fraction] 38.0 % Low 41.0-53.0 [facility] Comment on above: Performed By: #### C BC ####[place] [id number] Hemoglobin (Bld) [Mass/Vol] 12.6 g/dL Low 13.5-17.5 [facility] Comment on above: Performed By: #### C BC ####[place] [id number] MCH (RBC) [Entitic mass] 30.1 pg Normal 27.0-35.0 [facility] Comment on above: Performed By: #### C BC ####[place] [id number] MCHC 33.1 % Normal 31.0-37.0 [facility] Comment on above: Performed By: #### C BC ####[place] [id number] MCV (RBC) [Entitic vol] 90.9 fL Normal 80.0-100.0 [facility] Comment on above: Performed By: #### C BC ####[place] [id number] Platelet 256 x10*3/mcL Normal 150-450 [facility] Comment on above: Performed By: #### C BC ####[address] [address] Platelet mean volume (Bld) [Entitic vol] 7.8 fL Normal 6.7-10.6 [facility] Comment on above: Performed By: #### C BC ####[address] [address] RBC 4.18 x10*6/mcL Low 4.30-5.80 [facility] Comment on above: Performed By: #### C BC ####[address] [address] WBC 7.0 x10*3/mcL Normal 4.5-11.0 [facility] Comment on above: Performed By: #### C BC ####[address] [address] CMPon 08-10-2023 Albumin [Mass/Vol] 3.8 g/dL Normal 3.2-4.9 [facility] Comment on above: Performed By: #### M G #### [address] [address] Albumin/Globulin [Mass ratio] 1.0 {ratio} Low 1.1-2.2 [facility] Comment on above: Performed By: #### M G #### [address] [address] Alk Phos 109 IU/L High 32-91 [facility] Comment on above: Performed By: #### M G #### [address] [address] ALT [Catalytic activity/Vol] 28 U/L Normal 17-63 [facility] Comment on above: Performed By: #### M G #### [address] [address] Anion gap [Moles/Vol] 13 mmol/L Normal 7-17 [facility] Comment on above: Performed By: #### M G #### [address] [address] AST [Catalytic activity/Vol] 26 U/L Normal 15-41 [facility] Comment on above: Performed By: #### M G #### [address] [address] Bili Total 0.6 mg/dL Normal 0.3-1.2 [facility] Comment on above: Performed By: #### M G #### [address] [address] Calcium [Mass/Vol] 9.3 mg/dL Normal 8.5-10.3 [facility] Comment on above: Performed By: #### M G #### [address] [address] Chloride [Moles/Vol] 101 mmol/L Normal 98-110 [facility] Comment on above: Performed By: #### M G #### [address] [address] CO2 [Moles/Vol] 26 mmol/L Normal 22-32 [facility] Comment on above: Performed By: #### M G #### [address] [address] Creatinine [Mass/Vol] 0.66 mg/dL Normal 0.61-1.24 [facility] Comment on above: Performed By: #### M G #### [address] [address] Glucose [Mass/Vol] 113 mg/dL High 70-99 [facility] Comment on above: Performed By: #### M G #### [address] [address] Potassium [Moles/Vol] 4.4 mmol/L Normal 3.4-4.8 [facility] Comment on above: Performed By: #### M G #### [address] [address] Protein [Mass/Vol] 7.7 g/dL Normal 6.5-8.1 [facility] Comment on above: Performed By: #### M G #### [address] [address] Sodium [Moles/Vol] 136 mmol/L Normal 133-142 [facility] Comment on above: Performed By: #### M G #### [address] [address] Urea nitrogen [Mass/Vol] 13 mg/dL Normal 8-26 [facility] Comment on above: Performed By: #### M G #### [address] [address] Urea nitrogen/Creatinine [Mass ratio] 19.7 mg/mg Normal 10.0-20.0 [facility] Comment on above: Performed By: #### M G #### [address] [address] CRPon 08-10-2023 CRP 1.34 mg/dL High 0.00-0.75 [facility] Comment on above: Result Comment: CRP measurement is useful for assessment of non-specific INFLAMMATORY RESPONSE to infection or injury AND is a sensitive MARKER of ACUTE INFLAMMATION including CARDIAC RISK ASSESSMENT. CARDIAC patients with elevated CRP are POTENTIALLY at a HIGHER RISK OF FUTURE CARDIAC EVENTS. Performed By: #### C RP ####[address] [address] Diff Autoon 08-10-2023 Baso Absolute 0.1 x10*3/mcL Normal 0.0-0.2 [facility] Comment on above: Performed By: #### . Automated Diff ####[address] [address] Basophils/100 WBC (Bld) 1.2 % Normal 0.0-1.2 [facility] Comment on above: Performed By: #### . Automated Diff ####[address] [address] Eos Absolute 0.6 x10*3/mcL High 0.0-0.4 [facility] Comment on above: Performed By: #### . Automated Diff ####[address] [address] Eosinophils/100 WBC (Bld) 8.1 % High 0.0-6.1 [facility] Comment on above: Performed By: #### . Automated Diff ####[address] [address] Lymph Absolute 1.8 x10*3/mcL Normal 1.0-4.8 [facility] Comment on above: Performed By: #### . Automated Diff ####[address] [address] Lymphocytes/100 WBC (Bld) 25.2 % Low 27.2-40.8 [facility] Comment on above: Performed By: #### . Automated Diff ####[address] [address] Fannin Absolute 0.6 x10*3/mcL Normal 0.3-1.1 [facility] Comment on above: Performed By: #### . Automated Diff ####[place] [address] Monocytes/100 WBC (Bld) 8.5 % Normal 4.7-13.9 [facility] Comment on above: Performed By: #### . Automated Diff ####[place] [address] Neutro Absolute 4.0 x10*3/mcL Normal 1.8-7.7 [facility] Comment on above: Performed By: #### . Automated Diff ####[place] [address] Neutro Auto 57.0 % Normal 47.2-70.8 [facility] Comment on above: Performed By: #### . Automated Diff ####[place] [address] ESRon 08-10-2023 Sed Rate 13 mm/hr Normal 0-23 [facility] Comment on above: Performed By: #### E GFR #### [place] [address] Vanco Troughon 08-10-2023 Vanco Trough 18.30 mcg/mL High 10.00-15.00 [facility] Comment on above: Performed By: #### V ANCT ####[place] [address] C Sterile BSon 08-09-2023 C Sterile BS -- - Final No growth at 2 weeks. Normal [facility] Comment on above: Performed By: #### S BSC ####[place] [address] .eGFRon 08-06-2023 GFR/1.73 sq M.predicted MDRD (S/P/Bld) [Vol rate/Area] mL/min/{1.73_m2} Normal >=60 [facility] Comment on above: Result Comment: [facility] have implemented the eGFR calculation [...] = years Performed By: #### E GFR ####[place] [id number] BUNon 08-06-2023 Urea nitrogen [Mass/Vol] 13 mg/dL Normal 8-26 [facility] Comment on above: Performed By: #### B UN ####[place] [id number] C ANAon 08-06-2023 C BRANDON -- - Final No anaerobic organisms isolated at 2 weeks Normal [facility] Comment on above: Performed By: #### A NAC ####[place] [address] C BRANDON -- - Final No anaerobic organisms isolated at 2 weeks Normal [facility] Comment on above: Performed By: #Jayla#Jayla Dickerson##[address] [place] [address] C BRANDON -- - Final No anaerobic organisms isolated at 2 weeks Normal [facility] Comment on above: Performed By: #### Mame HAMILTON ###[address] [place] [address] C BRANDON -- - Final No anaerobic organisms isolated at 2 weeks Normal [facility] Comment on above: Performed By: #### Mame HAMILTON ###[address] [place] [address] C BRANDON -- - Final No anaerobic organisms isolated at 2 weeks Normal [facility] Comment on above: Performed By: #Jayla#Jayla A ALFONSO ###[address] [place] [address] [place] TAYLOR -- - Final No anaerobic organisms isolated at 2 weeks Normal [facility] Comment on above: Performed By: ###Jayla HAMILTON ####[address] [place] [address] C Sterile BSon 08-06-2023 C Sterile BS -- - Final No growth at 2 weeks. Normal [facility] Comment on above: Performed By: #### Jacklyn CHAPMAN ####[address] [address] C Sterile BS -- - Final No growth at 2 weeks. Normal [facility] Comment on above: Performed By: #### S ADELA ####[address] [address] C Sterile BS -- - Final No growth at 2 weeks. Normal [facility] Comment on above: Performed By: #### S BSC ####[address] [address] Creatinineon 08-06-2023 Creatinine [Mass/Vol] 0.72 mg/dL Normal 0.61-1.24 [facility] Comment on above: Performed By: #### M Jose Angel #### [address] [address] Vanco Troughon 08-06-2023 Vanco Trough 21.30 mcg/mL High 10.00-15.00 [facility] Comment on above: Performed By: #### V ANCT ####[place] [address] Send-out: Otheron 08-04-2023 Send-out Other See Report Normal [facility] Comment on above: Order Comment: TEST ID : [id number] Range Bacterial PCR and Sequencing, Varies - synovial fluid iin lab Result Comment: Miss ing Attachment Chartable Reference Lab Reports Can be viewed in source system Performed By: #### S OOTH ####[place] [id number] .eGFRon 08-03-2023 GFR/1.73 sq M.predicted MDRD (S/P/Bld) [Vol rate/Area] mL/min/{1.73_m2} Normal >=60 [facility] Comment on above: Result Comment: [facility] have implemented the eGFR calculation [...] = years Performed By: #### E GFR ####[place] [id number] CBC w/ Diffon 08-03-2023 Erythrocyte distribution width (RBC) [Ratio] 14.6 % Normal 11.6-14.8 [facility] Comment on above: Performed By: #### E SR #### [address] [address] Hematocrit (Bld) [Volume fraction] 36.0 % Low 41.0-53.0 [facility] Comment on above: Performed By: #### E SR #### [address] [address] Hemoglobin (Bld) [Mass/Vol] 11.9 g/dL Low 13.5-17.5 [facility] Comment on above: Performed By: #### E SR #### [address] [address] MCH (RBC) [Entitic mass] 30.9 pg Normal 27.0-35.0 [facility] Comment on above: Performed By: #### E SR #### [address] [address] MCHC 33.1 % Normal 31.0-37.0 [facility] Comment on above: Performed By: #### E SR #### [address] [address] MCV (RBC) [Entitic vol] 93.3 fL Normal 80.0-100.0 [facility] Comment on above: Performed By: #### E SR #### [address] [address] Platelet 302 x10*3/mcL Normal 150-450 [facility] Comment on above: Performed By: #### E SR #### [address] [address] Platelet mean volume (Bld) [Entitic vol] 7.6 fL Normal 6.7-10.6 [facility] Comment on above: Performed By: #### E SR #### [address] [address] RBC 3.86 x10*6/mcL Low 4.30-5.80 [facility] Comment on above: Performed By: #### E SR #### [address] [address] WBC 12.2 x10*3/mcL High 4.5-11.0 [facility] Comment on above: Performed By: #### E SR #### [address] [address] CMPon 08-03-2023 Albumin [Mass/Vol] 3.3 g/dL Normal 3.2-4.9 [facility] Comment on above: Performed By: #### C [id number] #### [address] [address] Albumin/Globulin [Mass ratio] 0.9 {ratio} Low 1.1-2.2 [facility] Comment on above: Performed By: #### C [id number] #### [address] [address] Alk Phos 126 IU/L High 32-91 [facility] Comment on above: Performed By: #### C [id number] #### [address] [address] ALT [Catalytic activity/Vol] 43 U/L Normal 17-63 [facility] Comment on above: Performed By: #### C [id number] #### [address] [address] Anion gap [Moles/Vol] 13 mmol/L Normal 7-17 [facility] Comment on above: Performed By: #### C [id number] #### [address] [address] AST [Catalytic activity/Vol] 31 U/L Normal 15-41 [facility] Comment on above: Performed By: #### C [id number] #### [address] [address] Bili Total 0.2 mg/dL Low 0.3-1.2 [facility] Comment on above: Performed By: #### C [id number] #### [address] [address] Calcium [Mass/Vol] 9.0 mg/dL Normal 8.5-10.3 [facility] Comment on above: Performed By: #### C [id number] #### [address] [address] Chloride [Moles/Vol] 101 mmol/L Normal 98-110 [facility] Comment on above: Performed By: #### C [id number] #### [address] [address] CO2 [Moles/Vol] 24 mmol/L Normal 22-32 [facility] Comment on above: Performed By: #### C [id number] #### [address] [address] Creatinine [Mass/Vol] 0.73 mg/dL Normal 0.61-1.24 [facility] Comment on above: Performed By: #### C [id number] #### [address] [address] Glucose [Mass/Vol] 113 mg/dL High 70-99 [facility] Comment on above: Performed By: #### C [id number] #### [address] [address] Potassium [Moles/Vol] 4.6 mmol/L Normal 3.4-4.8 [facility] Comment on above: Performed By: #### C [id number] #### [address] [address] Protein [Mass/Vol] 6.9 g/dL Normal 6.5-8.1 [facility] Comment on above: Performed By: #### C [id number] #### [address] [address] Sodium [Moles/Vol] 133 mmol/L Normal 133-142 [facility] Comment on above: Performed By: #### C [id number] #### [address] [address] Urea nitrogen [Mass/Vol] 13 mg/dL Normal 8-26 [facility] Comment on above: Performed By: #### C [id number] #### [place] [id number] Urea nitrogen/Creatinine [Mass ratio] 17.8 mg/mg Normal 10.0-20.0 [facility] Comment on above: Performed By: #### C [id number] #### [address] [address] CRPon 08-03-2023 CRP 2.36 mg/dL High 0.00-0.75 [facility] Comment on above: Result Comment: CRP measurement is useful for assessment of non-specific INFLAMMATORY RESPONSE to infection or injury AND is a sensitive MARKER of ACUTE INFLAMMATION including CARDIAC RISK ASSESSMENT. CARDIAC patients with elevated CRP are POTENTIALLY at a HIGHER RISK OF FUTURE CARDIAC EVENTS. Performed By: #### M G #### [address] [address] Diff Autoon 08-03-2023 Baso Absolute 0.1 x10*3/mcL Normal 0.0-0.2 [facility] Comment on above: Performed By: #### . Automated Diff ####[address] [address] Basophils/100 WBC (Bld) 0.7 % Normal 0.0-1.2 [facility] Comment on above: Performed By: #### . Automated Diff ####[address] [address] Eos Absolute 0.6 x10*3/mcL High 0.0-0.4 [facility] Comment on above: Performed By: #### . Automated Diff ####[address] [address] Eosinophils/100 WBC (Bld) 4.6 % Normal 0.0-6.1 [facility] Comment on above: Performed By: #### . Automated Diff ####[address] [address] Lymph Absolute 1.8 x10*3/mcL Normal 1.0-4.8 [facility] Comment on above: Performed By: #### . Automated Diff ####[address] [address] Lymphocytes/100 WBC (Bld) 15.1 % Low 27.2-40.8 [facility] Comment on above: Performed By: #### . Automated Diff ####[address] [address] Fannin Absolute 0.7 x10*3/mcL Normal 0.3-1.1 [facility] Comment on above: Performed By: #### . Automated Diff ####[address] [address] Monocytes/100 WBC (Bld) 6.0 % Normal 4.7-13.9 [facility] Comment on above: Performed By: #### . Automated Diff ####[address] [address] Neutro Absolute 8.9 x10*3/mcL High 1.8-7.7 [facility] Comment on above: Performed By: #### . Automated Diff ####[address] [address] Neutro Auto 73.6 % High 47.2-70.8 [facility] Comment on above: Performed By: #### . Automated Diff ####[address] [address] Diff Latia 08-03-2023 Band form neutrophils/100 WBC (Bld) 1 % Normal 0-5 [facility] Comment on above: Performed By: #### . Manual Diff ####[address] [address] Basophils/100 WBC (Bld) 0 % Normal 0-3 [facility] Comment on above: Performed By: #### . Manual Diff ####[address] [address] Eosinophils/100 WBC (Bld) 4 % Normal 0-7 [facility] Comment on above: Performed By: #### . Manual Diff ####[address] [address] Lymphocytes/100 WBC (Bld) 16 % Normal 14-42 [facility] Comment on above: Performed By: #### . Manual Diff ####[address] [address] Monocytes/100 WBC (Bld) 3 % Normal 1-11 [facility] Comment on above: Performed By: #### . Manual Diff ####[address] [address] Platelet estimate Adequate Normal [facility] Comment on above: Performed By: #### . Manual Diff ####[address] [address] RBC morphology finding Nom (Bld) Normal Normal [facility] Comment on above: Performed By: #### . Manual Diff ####[address] [address] Segs Man 76 % Normal 49-79 [facility] Comment on above: Performed By: #### . Manual Diff ####[address] [address] ESRon 08-03-2023 Sed Rate 31 mm/hr High 0-23 [facility] Comment on above: Performed By: #### E SR ####[address] [address] Vanco Troughon 08-03-2023 Vanco Trough 21.00 mcg/mL High 10.00-15.00 [facility] Comment on above: Performed By: #### E GFR #### [address] [address] Long-term Care Office/Clinic Noteon 07-31-2023 Long-term Care Office/Clinic Note Chief Complaint new skilled pt at [facility] History of Present Illness Joie Lu is a 68 year old male new skilled patient of the [facility] being seen today after hospitalization at [facility] from 07/21/23-07/30/23. Pertinent past medical history includes: Type 2 diabetes mellitus, hypertension, gout, depression with anxiety, COPD with emphysema. Originally underwent right knee replacement 3 weeks prior and presented to outside hospital for increasing pain with edema in which she was transferred to [facility] for further eval. Patient found to have [...] twice daily Metformin 850 mg twice daily Trosper diabetic diet 6. Generalized muscle weakness PT/OT for stre (more content not included)... Normal [facility] .eGFRon 07-30-2023 GFR/1.73 sq M.predicted MDRD (S/P/Bld) [Vol rate/Area] mL/min/{1.73_m2} Normal >=60 [facility] Comment on above: Result Comment: [facility] have implemented the eGFR calculation [...] years Performed By: #### E GFR #### [facility] [address] [place] [address] Basic Metabolic Profileon Anion gap [Moles/Vol] 10 mmol/L Normal 7-17 [facility] Comment on above: Performed By: #### C [id number] ####[facility] [place] [address] Calcium [Mass/Vol] 8.8 mg/dL Normal 8.5-10.3 [facility] Comment on above: Performed By: #### C D:[id number] ####[address] [place] [address] Chloride [Moles/Vol] 103 mmol/L Normal 98-110 [facility] Comment on above: Performed By: #### C D:[id number] ####[address] [address] CO2 [Moles/Vol] 28 mmol/L Normal 22-32 [facility] Comment on above: Performed By: #### C [id number] ####[address] [address] Creatinine [Mass/Vol] 0.81 mg/dL Normal 0.61-1.24 [facility] Comment on above: Performed By: #### C D:[id number] ####[address] [address] Glucose [Mass/Vol] 171 mg/dL High 70-99 [facility] Comment on above: Performed By: #### C D:[id number] ####[address] [address] Potassium [Moles/Vol] 4.3 mmol/L Normal 3.4-4.8 [facility] Comment on above: Performed By: #### C D:[id number] ####[address] [address] Sodium [Moles/Vol] 137 mmol/L Normal 133-142 [facility] Comment on above: Performed By: #### C D:[id number] ####[address] [address] Urea nitrogen [Mass/Vol] 17 mg/dL Normal 8-26 [facility] Comment on above: Performed By: #### C D:[id number] ####[address] [address] Urea nitrogen/Creatinine [Mass ratio] 21.0 mg/mg High 10.0-20.0 [facility] Comment on above: Performed By: #### C D:[id number] ####[address] [address] CBCon 07-30-2023 Erythrocyte distribution width (RBC) [Ratio] 14.6 % Normal 11.6-14.8 [facility] Comment on above: Performed By: #### C D:[id number] #### [address] [address] Hematocrit (Bld) [Volume fraction] 30.2 % Low 41.0-53.0 [facility] Comment on above: Performed By: #### C D:[id number] #### [address] [address] Hemoglobin (Bld) [Mass/Vol] 10.2 g/dL Low 13.5-17.5 [facility] Comment on above: Performed By: #### C D:[id number] #### [address] [address] MCH (RBC) [Entitic mass] 30.9 pg Normal 27.0-35.0 [facility] Comment on above: Performed By: #### C D:[id number] #### [address] [address] MCHC 33.7 % Normal 31.0-37.0 [facility] Comment on above: Performed By: #### C D:[id number] #### [address] [address] MCV (RBC) [Entitic vol] 91.6 fL Normal 80.0-100.0 [facility] Comment on above: Performed By: #### C D:[id number] #### [address] [address] Platelet 238 x10*3/mcL Normal 150-450 [facility] Comment on above: Performed By: #### C D:[id number] #### [address] [address] Platelet mean volume (Bld) [Entitic vol] 6.7 fL Normal 6.7-10.6 [facility] Comment on above: Performed By: #### C D:[id number] #### [address] [address] RBC 3.30 x10*6/mcL Low 4.30-5.80 [facility] Comment on above: Performed By: #### C D:[id number] #### [facility] [address] [place] [address] WBC 8.2 x10*3/mcL Normal 4.5-11.0 [facility] Comment on above: Performed By: #### C D:[id number] #### [id number] [place] [address] COV19 Rapidon 07-30-2023 LAB ONLY Result Called? No Normal [facility] Comment on above: Performed By: #### C D:[id number] ####[address] [address] Reason for Rapid Test Dischrg to LTC Normal [facility] Comment on above: Performed By: #### C D:[id number] ####[address] [address] SARS-CoV-2 (COVID-19) RNA RUTH+probe Ql (Unsp spec) Negative Normal Negative [facility] Comment on above: Result Comment: The 2019 [...] using the ID NOW COVID-19 test by [employer], which has received Emergency Use Authorization (EUA) [...] following links: Fact Sheet for HealthCare Providers: https://www.Everyclick.gov/media/721361/download Fact Sheet for Patients: https://www.Everyclick.gov/media/210582/download Performed By: #### C D:[id number] ####[facility] [place] [address] Inpatient Clinical Summaryon 07-30-2023 Inpatient Clinical Summary [facility] [address] [place] [address] [facility] [address] [place] [address] Clinical Summary Person Information Name: Joie Lu Age: 68 Years : 1955 Sex: Male PCP: Marital Status: Phone: PCP: Race: White Ethnicity: Not or Language: [place] Visit Id: Visit Reason: Surgical problem Speciality: Acuity: Enc Type: Inpatient Med Service: Emergency Medicine Arrival: 07/21/2023 19:33:54 Discharge: Dispo Type: Address: [address] [place] [id number] Diagnosis: 1:Infection of knee; 2:Hyponatremia; 3:Status post [...] range between ( 27.2 and 40.8 ) Fannin Auto: 8.1 % -- Normal range between ( 4.7 and 13.9 ) Eos Auto: 7.6 % -- Normal range between ( 0.0 and 6.1 ) Basophil Auto: 0.6 % -- Normal range between ( 0.0 and 1.2 ) Baso Absolute: 0.1 x10 Lymph Absolute: 1.4 x10 Fannin Absolute: 0.8 x10 Neutro Absolute: 6.9 x10 [...] Sources 07/22/2023 7:09 PM Fluid RBC Count: 386163 /mcL Body Fluid Cell Cnt Type: Synovial Fluid WBC Count: 74909 /mcL -- Normal range between ( 0 [...] Heart Rate (more content not included)... Normal [facility] Magnesiumon 07-30-2023 Magnesium [Mass/Vol] 1.8 mg/dL Normal 1.7-2.4 [facility] Comment on above: Performed By: #### E GFR #### [facility] [address] [place] [address] Orthopedic Progress Noteon 1 Orthopedic Progress Note [...] 10.2. Hemodynamically stable. Asymptomatic. Anticipate discharge to [facility] today Outpatient follow-up in 2 weeks. Continue twice weekly wound VAC changes until discontinued by our office outpatient. 2. Hyponatremia 3. Status post revision of total replacement of right knee Electronically signed by Starla Marie PA-C 07/30/23 12:18 EDT Patient care discussed with Starla Marie PA-C. Agree with assessment and plan. Electronically signed by Justin Mcgowan MD 07/31/23 15:54 EDT Normal [facility] POC Glucose Randomon 023 Glucose [Mass/Vol] 233 mg/dL High 70-99 [facility] Comment on above: Performed By: #### C D:[id number] ####[address] [place] [address] .eGFRon 07-29-2023 GFR/1.73 sq M.predicted MDRD (S/P/Bld) [Vol rate/Area] mL/min/{1.73_m2} Normal >=60 [facility] Comment on above: Result Comment: [facility] have implemented the eGFR calculation [...] years Performed By: #### M G #### [address] [address] Basic Metabolic Profileon Anion gap [Moles/Vol] 11 mmol/L Normal 7-17 [facility] Comment on above: Performed By: #### C D:[id number] ####[address] [address] Calcium [Mass/Vol] 8.7 mg/dL Normal 8.5-10.3 [facility] Comment on above: Performed By: #### C D:[id number] ####[address] [address] Chloride [Moles/Vol] 103 mmol/L Normal 98-110 [facility] Comment on above: Performed By: #### C D:[id number] ####[address] [address] CO2 [Moles/Vol] 25 mmol/L Normal 22-32 [facility] Comment on above: Performed By: #### C D:[id number] ####[address] [address] Creatinine [Mass/Vol] 0.67 mg/dL Normal 0.61-1.24 [facility] Comment on above: Performed By: #### C D:[id number] ####[address] [address] Glucose [Mass/Vol] 140 mg/dL High 70-99 [facility] Comment on above: Performed By: #### C D:[id number] ####[address] [address] Potassium [Moles/Vol] 4.4 mmol/L Normal 3.4-4.8 [facility] Comment on above: Performed By: #### C D:[id number] ####[address] [address] Sodium [Moles/Vol] 135 mmol/L Normal 133-142 [facility] Comment on above: Performed By: #### C D:[id number] ####[address] [address] Urea nitrogen [Mass/Vol] 17 mg/dL Normal 8-26 [facility] Comment on above: Performed By: #### C D:[id number] ####[address] [address] Urea nitrogen/Creatinine [Mass ratio] 25.4 mg/mg High 10.0-20.0 [facility] Comment on above: Performed By: #### C D:[id number] ####[address] [address] CBC w/ Diffon 07-29-2023 Erythrocyte distribution width (RBC) [Ratio] 14.7 % Normal 11.6-14.8 [facility] Comment on above: Performed By: #### C BC ####[address] [address] Hematocrit (Bld) [Volume fraction] 30.7 % Low 41.0-53.0 [facility] Comment on above: Performed By: #### C BC ####[address] [address] Hemoglobin (Bld) [Mass/Vol] 10.4 g/dL Low 13.5-17.5 [facility] Comment on above: Performed By: #### C BC ####[address] [address] MCH (RBC) [Entitic mass] 30.9 pg Normal 27.0-35.0 [facility] Comment on above: Performed By: #### C BC ####[address] [address] MCHC 33.8 % Normal 31.0-37.0 [facility] Comment on above: Performed By: #### C BC ####[address] [address] MCV (RBC) [Entitic vol] 91.5 fL Normal 80.0-100.0 [facility] Comment on above: Performed By: #### C BC ####[address] [address] Platelet 245 x10*3/mcL Normal 150-450 [facility] Comment on above: Performed By: #### C BC ####[id number] Platelet mean volume (Bld) [Entitic vol] 6.4 fL Low 6.7-10.6 [facility] Comment on above: Performed By: #### C BC ####[id number] RBC 3.35 x10*6/mcL Low 4.30-5.80 [facility] Comment on above: Performed By: #### C BC ####[id number] WBC 9.9 x10*3/mcL Normal 4.5-11.0 [facility] Comment on above: Performed By: #### C BC ####[id number] Diff Autoon 07-29-2023 Baso Absolute 0.1 x10*3/mcL Normal 0.0-0.2 [facility] Comment on above: Performed By: #### . Automated Diff ####[address] [address] Basophils/100 WBC (Bld) 0.6 % Normal 0.0-1.2 [facility] Comment on above: Performed By: #### . Automated Diff ####[address] [address] Eos Absolute 0.8 x10*3/mcL High 0.0-0.4 [facility] Comment on above: Performed By: #### . Automated Diff ####[id number] Eosinophils/100 WBC (Bld) 7.6 % High 0.0-6.1 [facility] Comment on above: Performed By: #### . Automated Diff ####[address] [address] Lymph Absolute 1.4 x10*3/mcL Normal 1.0-4.8 [facility] Comment on above: Performed By: #### . Automated Diff ####[address] [address] Lymphocytes/100 WBC (Bld) 14.5 % Low 27.2-40.8 [facility] Comment on above: Performed By: #### . Automated Diff ####[address] [address] Fannin Absolute 0.8 x10*3/mcL Normal 0.3-1.1 [facility] Comment on above: Performed By: #### . Automated Diff ####[address] [address] Monocytes/100 WBC (Bld) 8.1 % Normal 4.7-13.9 [facility] Comment on above: Performed By: #### . Automated Diff ####[address] [address] Neutro Absolute 6.9 x10*3/mcL Normal 1.8-7.7 [facility] Comment on above: Performed By: #### . Automated Diff ####[id number] Neutro Auto 69.2 % Normal 47.2-70.8 [facility] Comment on above: Performed By: #### . Automated Diff ####[id number] ESRon 07-29-2023 Sed Rate 52 mm/hr High 0-23 [facility] Comment on above: Performed By: #### E SR ####[id number] Orthopedic Progress Noteon 1 Orthopedic Progress Note [...] Justin Mcgowan MD 07/30/23 07:17 EDT Normal [facility] POC Glucose Randomon 023 Glucose [Mass/Vol] 168 mg/dL High 70-99 [facility] Comment on above: Performed By: #### E GFR #### [facility] [address] [place] [address] Glucose [Mass/Vol] 212 mg/dL High 70-99 [facility] Comment on above: Performed By: #### C D:[id number] ####[facility] [place] [address] Glucose [Mass/Vol] 189 mg/dL High 70-99 [facility] Comment on above: Performed By: #### C D:[id number] #### [facility] [address] [place] [address] .eGFRon 07-28-2023 GFR/1.73 sq M.predicted MDRD (S/P/Bld) [Vol rate/Area] mL/min/{1.73_m2} Normal >=60 [facility] Comment on above: Result Comment: [facility] have implemented the eGFR calculation [...] years Performed By: #### E GFR #### [address] [address] GFR/1.73 sq M.predicted MDRD (S/P/Bld) [Vol rate/Area] mL/min/{1.73_m2} Normal >=60 [facility] Comment on above: Result Comment: [facility] have implemented the eGFR calculation [...] years Performed By: #### E SR #### [address] [address] Basic Metabolic Profileon Anion gap [Moles/Vol] 10 mmol/L Normal 7-17 [facility] Comment on above: Performed By: #### E GFR #### [address] [address] Calcium [Mass/Vol] 8.5 mg/dL Normal 8.5-10.3 [facility] Comment on above: Performed By: #### E GFR #### [address] [address] Chloride [Moles/Vol] 100 mmol/L Normal 98-110 [facility] Comment on above: Performed By: #### E GFR #### [address] [address] CO2 [Moles/Vol] 26 mmol/L Normal 22-32 [facility] Comment on above: Performed By: #### E GFR #### [address] [address] Creatinine [Mass/Vol] 0.86 mg/dL Normal 0.61-1.24 [facility] Comment on above: Performed By: #### E GFR #### [address] [address] Glucose [Mass/Vol] 290 mg/dL High 70-99 [facility] Comment on above: Performed By: #### E GFR #### [address] [address] Potassium [Moles/Vol] 4.4 mmol/L Normal 3.4-4.8 [facility] Comment on above: Performed By: #### E GFR #### [address] [address] Sodium [Moles/Vol] 132 mmol/L Low 133-142 [facility] Comment on above: Performed By: #### E GFR #### [address] [address] Urea nitrogen [Mass/Vol] 18 mg/dL Normal 8-26 [facility] Comment on above: Performed By: #### E GFR #### [address] [address] Urea nitrogen/Creatinine [Mass ratio] 20.9 mg/mg High 10.0-20.0 [facility] Comment on above: Performed By: #### E GFR #### [address] [address] Anion gap [Moles/Vol] 12 mmol/L Normal 7-17 [facility] Comment on above: Performed By: #### C D:[id number] ####[address] [address] Calcium [Mass/Vol] 8.9 mg/dL Normal 8.5-10.3 [facility] Comment on above: Performed By: #### C D:[id number] ####[address] [address] Chloride [Moles/Vol] 104 mmol/L Normal 98-110 [facility] Comment on above: Performed By: #### C D:[id number] ####[address] [address] CO2 [Moles/Vol] 27 mmol/L Normal 22-32 [facility] Comment on above: Performed By: #### C D:[id number] ####[address] [address] Creatinine [Mass/Vol] 0.78 mg/dL Normal 0.61-1.24 [facility] Comment on above: Performed By: #### C [id number] ####[address] [address] Glucose [Mass/Vol] 134 mg/dL High 70-99 [facility] Comment on above: Performed By: #### C D:[id number] ####[address] [address] Potassium [Moles/Vol] 4.4 mmol/L Normal 3.4-4.8 [facility] Comment on above: Performed By: #### C D:[id number] ####[address] [address] Sodium [Moles/Vol] 139 mmol/L Normal 133-142 [facility] Comment on above: Performed By: #### C D:[id number] ####[address] [address] Urea nitrogen [Mass/Vol] 16 mg/dL Normal 8-26 [facility] Comment on above: Performed By: #### C D:[id number] ####[address] [address] Urea nitrogen/Creatinine [Mass ratio] 20.5 mg/mg High 10.0-20.0 [facility] Comment on above: Performed By: #### C D:[id number] ####[address] [address] CBCon 07-28-2023 Erythrocyte distribution width (RBC) [Ratio] 15.2 % High 11.6-14.8 [facility] Comment on above: Performed By: #### C BCI ####[address] [address] Hematocrit (Bld) [Volume fraction] 31.2 % Low 41.0-53.0 [facility] Comment on above: Performed By: #### C BCI ####[address] [address] Hemoglobin (Bld) [Mass/Vol] 10.4 g/dL Low 13.5-17.5 [facility] Comment on above: Performed By: #### C BCI ####[address] [address] MCH (RBC) [Entitic mass] 30.8 pg Normal 27.0-35.0 [facility] Comment on above: Performed By: #### C BCI ####[address] [address] MCHC 33.5 % Normal 31.0-37.0 [facility] Comment on above: Performed By: #### C BCI ####[address] [address] MCV (RBC) [Entitic vol] 91.9 fL Normal 80.0-100.0 [facility] Comment on above: Performed By: #### C BCI ####[address] [address] Platelet 252 x10*3/mcL Normal 150-450 [facility] Comment on above: Performed By: #### C BCI ####[address] [address] Platelet mean volume (Bld) [Entitic vol] 7.0 fL Normal 6.7-10.6 [facility] Comment on above: Performed By: #### C BCI ####[address] [address] RBC 3.39 x10*6/mcL Low 4.30-5.80 [facility] Comment on above: Performed By: #### C BCI ####[address] [address] WBC 11.0 x10*3/mcL Normal 4.5-11.0 [facility] Comment on above: Performed By: #### C BCI ####[address] [address] Erythrocyte distribution width (RBC) [Ratio] 15.0 % High 11.6-14.8 [facility] Comment on above: Performed By: #### E SR #### [address] [address] Hematocrit (Bld) [Volume fraction] 31.6 % Low 41.0-53.0 [facility] Comment on above: Performed By: #### E SR #### [address] [address] Hemoglobin (Bld) [Mass/Vol] 10.6 g/dL Low 13.5-17.5 [facility] Comment on above: Performed By: #### E SR #### [address] [address] MCH (RBC) [Entitic mass] 30.9 pg Normal 27.0-35.0 [facility] Comment on above: Performed By: #### E SR #### [address] [address] MCHC 33.4 % Normal 31.0-37.0 [facility] Comment on above: Performed By: #### E SR #### [place] [id number] MCV (RBC) [Entitic vol] 92.3 fL Normal 80.0-100.0 [facility] Comment on above: Performed By: #### E SR #### [place] [id number] Platelet 256 x10*3/mcL Normal 150-450 [facility] Comment on above: Performed By: #### E SR #### [place] [address] Platelet mean volume (Bld) [Entitic vol] 6.6 fL Low 6.7-10.6 [facility] Comment on above: Performed By: #### E SR #### [place] [id number] RBC 3.42 x10*6/mcL Low 4.30-5.80 [facility] Comment on above: Performed By: #### E SR #### [place] [id number] WBC 11.4 x10*3/mcL High 4.5-11.0 [facility] Comment on above: Performed By: #### E SR #### [place] [address] CRPon 07-28-2023 CRP 5.77 mg/dL High 0.00-0.75 [facility] Comment on above: Result Comment: CRP measurement is useful for assessment of non-specific INFLAMMATORY RESPONSE to infection or injury AND is a sensitive MARKER of ACUTE INFLAMMATION including CARDIAC RISK ASSESSMENT. CARDIAC patients with elevated CRP are POTENTIALLY at a HIGHER RISK OF FUTURE CARDIAC EVENTS. Performed By: #### C RP ####[place] [address] Infectious Disease Progress Noteon 07-28-2023 Infectious Disease [...] Johnny Cespedes MD 07/28/23 18:16 EDT Normal [facility] Magnesiumon 07-28-2023 Magnesium [Mass/Vol] 1.8 mg/dL Normal 1.7-2.4 [facility] Comment on above: Performed By: #### M G ####[address] [address] Magnesium [Mass/Vol] 1.9 mg/dL Normal 1.7-2.4 [facility] Comment on above: Performed By: #### M G ####[facility] [place] [address] Orthopedic Progress Noteon 1 Orthopedic Progress Note [...] wound VAC on discharge. Anticipate discharge to [facility] once outpatient antibiotics and wound VAC arranged. Outpatient follow-up in 2 weeks Ordered: oxyCODONE, 5 mg, Oral, q6hr, PRN, X 5 days, # 20 tabs, 0 Refill(s), 08/01/23 6:40:00 EDT, Pharmacy: [facility] #[id number] 2. Hyponatremia Orders: enoxaparin, 0.4 mL, Subcutaneous, Daily, X 30 days, # 12 mL, 0 Refill(s), 08/26/23 6:40:00 EST, Pharmacy: [facility] #[id number] Electronically signed by Starla Marie PA-C 07/28/23 06:29 EDT Patient care discussed with Starla Marie PA-C. Agree with assessment and plan. Electronically signed by Justin Mcgowan MD 07/30/23 07:17 EDT Normal [facility] POC Glucose Randomon 023 Glucose [Mass/Vol] 281 mg/dL High 70-99 [facility] Comment on above: Performed By: #### C [id number] ####[facility] [place] [address] Glucose [Mass/Vol] 196 mg/dL High 70-99 [facility] Comment on above: Performed By: #### M G #### [facility] [address] [place] [address] Glucose [Mass/Vol] 151 mg/dL High 70-99 [facility] Comment on above: Performed By: #### C [id number] ####[facility] [place] [address] Vanco Troughon 07-28-2023 Vanco Trough 14.60 mcg/mL Normal 10.00-15.00 [facility] Comment on above: Performed By: #### E SR #### [facility] [address] [place] [address] .eGFRon 07-27-2023 GFR/1.73 sq M.predicted MDRD (S/P/Bld) [Vol rate/Area] mL/min/{1.73_m2} Normal >=60 [facility] Comment on above: Result Comment: [facility] have implemented the eGFR calculation [...] = years Performed By: #### E GFR ####[facility] [place] [address] Basic Metabolic Profileon Anion gap [Moles/Vol] 10 mmol/L Normal 7-17 [facility] Comment on above: Performed By: #### M G #### [facility] [address] [place] [address] Calcium [Mass/Vol] 8.7 mg/dL Normal 8.5-10.3 [facility] Comment on above: Performed By: #### M G #### [facility] [address] [place] [address] Chloride [Moles/Vol] 101 mmol/L Normal 98-110 [facility] Comment on above: Performed By: #### M G #### [address] [address] CO2 [Moles/Vol] 28 mmol/L Normal 22-32 [facility] Comment on above: Performed By: #### M G #### [address] [address] Creatinine [Mass/Vol] 0.81 mg/dL Normal 0.61-1.24 [facility] Comment on above: Performed By: #### M G #### [address] [address] Glucose [Mass/Vol] 131 mg/dL High 70-99 [facility] Comment on above: Performed By: #### M G #### [address] [address] Potassium [Moles/Vol] 4.4 mmol/L Normal 3.4-4.8 [facility] Comment on above: Performed By: #### M G #### [address] [address] Sodium [Moles/Vol] 135 mmol/L Normal 133-142 [facility] Comment on above: Performed By: #### M G #### [address] [address] Urea nitrogen [Mass/Vol] 14 mg/dL Normal 8-26 [facility] Comment on above: Performed By: #### M G #### [address] [address] Urea nitrogen/Creatinine [Mass ratio] 17.3 mg/mg Normal 10.0-20.0 [facility] Comment on above: Performed By: #### M G #### [address] [address] CBCon 07-27-2023 Erythrocyte distribution width (RBC) [Ratio] 14.9 % High 11.6-14.8 [facility] Comment on above: Performed By: #### C BCI ####[address] [address] Hematocrit (Bld) [Volume fraction] 31.0 % Low 41.0-53.0 [facility] Comment on above: Performed By: #### C BCI ####[address] [address] Hemoglobin (Bld) [Mass/Vol] 10.3 g/dL Low 13.5-17.5 [facility] Comment on above: Performed By: #### C BCI ####[place] [id number] MCH (RBC) [Entitic mass] 30.6 pg Normal 27.0-35.0 [facility] Comment on above: Performed By: #### C BCI ####[place] [id number] MCHC 33.4 % Normal 31.0-37.0 [facility] Comment on above: Performed By: #### C BCI ####[place] [id number] MCV (RBC) [Entitic vol] 91.6 fL Normal 80.0-100.0 [facility] Comment on above: Performed By: #### C BCI ####[address] [address] Platelet 208 x10*3/mcL Normal 150-450 [facility] Comment on above: Performed By: #### C BCI ####[address] [address] Platelet mean volume (Bld) [Entitic vol] 6.6 fL Low 6.7-10.6 [facility] Comment on above: Performed By: #### C BCI ####[place] [id number] RBC 3.38 x10*6/mcL Low 4.30-5.80 [facility] Comment on above: Performed By: #### C BCI ####[place] [id number] WBC 8.3 x10*3/mcL Normal 4.5-11.0 [facility] Comment on above: Performed By: #### C BCI ####[place] [address] [place] [id number] Dietary Consultationon 07-27 Dietary Consultation Patient screened [...] Gi Yepez RD 07/27/23 13:14 EDT Normal [facility] Infectious Disease Progress Noteon 07-27-2023 Infectious Disease [...] No complaints on urination. Possibly going to [facility] on discharge. Review of Systems All systems [...] reviewed. Continues on Vanco and Rocephin awaiting alf placement. Stop date September 02 as noted above. Electronically signed by Rubina WATERMAN, Johnny Cook. 07/27/23 20:00 EDT Normal [facility] Magnesiumon 07-27-2023 Magnesium [Mass/Vol] 1.9 mg/dL Normal 1.7-2.4 [facility] Comment on above: Performed By: #### M G #### [facility] [address] [place] [address] Orthopedic Progress Noteon 1 Orthopedic Progress Note [...] Justin Mcgowan MD 07/27/23 06:41 EDT Normal [facility] POC Glucose Randomon 023 Glucose [Mass/Vol] 268 mg/dL High 70-99 [facility] Comment on above: Performed By: #### M G #### [address] [address] Glucose [Mass/Vol] 163 mg/dL High 70-99 [facility] Comment on above: Performed By: #### E GFR #### [address] [address] Glucose [Mass/Vol] 185 mg/dL High 70-99 [facility] Comment on above: Performed By: #### E GFR #### [address] [place] [address] Glucose [Mass/Vol] 106 mg/dL High 70-99 [facility] Comment on above: Performed By: #### E GFR #### [address] [address] Progress Note-Nurseon 2022 Progress Note-Nurse Reassessment of [...] Patient C/O pain at the calf site 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 Mcgowan CRF completed for continuity of care Electronically signed by Teresa Hong 07/27/23 13:27 EDT Normal [facility] VL Extremity Venous Duplex Bhavin Florez 07-27-2023 [...] [place] on the 6th floor at 15:45. [employer] Gun Hand: Simone Jones, RVT Radiologist Report CLINICAL HISTORY: [...] Electronically Signed in Other Vendor System) Normal [facility] .eGFRon 07-26-2023 GFR/1.73 sq M.predicted MDRD (S/P/Bld) [Vol rate/Area] mL/min/{1.73_m2} Normal >=60 [facility] Comment on above: Result Comment: [facility] have implemented the eGFR calculation [...] years Performed By: #### E GFR #### [address] [address] Basic Metabolic Profileon Anion gap [Moles/Vol] 12 mmol/L Normal 7-17 [facility] Comment on above: Performed By: #### M G #### [address] [address] Calcium [Mass/Vol] 8.6 mg/dL Normal 8.5-10.3 [facility] Comment on above: Performed By: #### M G #### [address] [address] Chloride [Moles/Vol] 102 mmol/L Normal 98-110 [facility] Comment on above: Performed By: #### M G #### [address] [address] CO2 [Moles/Vol] 27 mmol/L Normal 22-32 [facility] Comment on above: Performed By: #### M G #### [address] [address] Creatinine [Mass/Vol] 0.72 mg/dL Normal 0.61-1.24 [facility] Comment on above: Performed By: #### M G #### [address] [address] Glucose [Mass/Vol] 127 mg/dL High 70-99 [facility] Comment on above: Performed By: #### M G #### [address] [address] Potassium [Moles/Vol] 4.5 mmol/L Normal 3.4-4.8 [facility] Comment on above: Performed By: #### M G #### [address] [address] Sodium [Moles/Vol] 136 mmol/L Normal 133-142 [facility] Comment on above: Performed By: #### M G #### [address] [address] Urea nitrogen [Mass/Vol] 12 mg/dL Normal 8-26 [facility] Comment on above: Performed By: #### M G #### [address] [address] Urea nitrogen/Creatinine [Mass ratio] 16.7 mg/mg Normal 10.0-20.0 [facility] Comment on above: Performed By: #### M G #### [address] [address] CBCon 07-26-2023 Erythrocyte distribution width (RBC) [Ratio] 14.7 % Normal 11.6-14.8 [facility] Comment on above: Performed By: #### C [id number] #### [address] [address] Hematocrit (Bld) [Volume fraction] 30.2 % Low 41.0-53.0 [facility] Comment on above: Performed By: #### C D:[id number] #### [address] [address] Hemoglobin (Bld) [Mass/Vol] 10.3 g/dL Low 13.5-17.5 [facility] Comment on above: Performed By: #### C D:[id number] #### [address] [address] MCH (RBC) [Entitic mass] 31.1 pg Normal 27.0-35.0 [facility] Comment on above: Performed By: #### C D:[id number] #### [address] [address] MCHC 34.1 % Normal 31.0-37.0 [facility] Comment on above: Performed By: #### C D:[id number] #### [address] [address] MCV (RBC) [Entitic vol] 91.3 fL Normal 80.0-100.0 [facility] Comment on above: Performed By: #### C D:[id number] #### [address] [address] Platelet 178 x10*3/mcL Normal 150-450 [facility] Comment on above: Performed By: #### C D:[id number] #### [address] [address] Platelet mean volume (Bld) [Entitic vol] 6.7 fL Normal 6.7-10.6 [facility] Comment on above: Performed By: #### C D:[id number] #### [place] [id number] RBC 3.31 x10*6/mcL Low 4.30-5.80 [facility] Comment on above: Performed By: #### C D:[id number] #### [address] [address] WBC 6.8 x10*3/mcL Normal 4.5-11.0 [facility] Comment on above: Performed By: #### C [id number] #### [address] [address] Magnesiumon 07-26-2023 Magnesium [Mass/Vol] 1.6 mg/dL Low 1.7-2.4 [facility] Comment on above: Performed By: #### M G #### [place] [id number] Orthopedic Progress Noteon 1 Orthopedic Progress Note [...] Justin Mcgowan MD 07/27/23 06:22 EDT Normal [facility] POC Glucose Randomon 023 Glucose [Mass/Vol] 224 mg/dL High 70-99 [facility] Comment on above: Performed By: #### C [id number] ####[address] [address] Glucose [Mass/Vol] 201 mg/dL High 70-99 [facility] Comment on above: Performed By: #### C D:[id number] ####[address] [address] Glucose [Mass/Vol] 208 mg/dL High 70-99 [facility] Comment on above: Performed By: #### C D:[id number] #### [address] [address] Glucose [Mass/Vol] 126 mg/dL High 70-99 [facility] Comment on above: Performed By: #### C D:[id number] ####[address] [address] Vanco Troughon 07-26-2023 Vanco Trough 19.30 mcg/mL High 10.00-15.00 [facility] Comment on above: Order Comment: Add 0 800 Vanco to morning labs that were drawn per Jolanta Mcfadden RN. 07/26/2023 05:52 ALS Performed By: #### V ANCT ####[address] [address] .eGFRon 07-25-2023 GFR/1.73 sq M.predicted MDRD (S/P/Bld) [Vol rate/Area] mL/min/{1.73_m2} Normal >=60 [facility] Comment on above: Result Comment: [facility] have implemented the eGFR calculation [...] Age = years Performed By: #### C D:[id number] #### [address] [address] Basic Metabolic Profileon Anion gap [Moles/Vol] 10 mmol/L Normal 7-17 [facility] Comment on above: Performed By: #### M G #### [address] [address] Calcium [Mass/Vol] 8.0 mg/dL Low 8.5-10.3 [facility] Comment on above: Performed By: #### M G #### [place] [address] [place] [address] Chloride [Moles/Vol] 102 mmol/L Normal 98-110 [facility] Comment on above: Performed By: #### M G #### [place] [address] [place] [address] CO2 [Moles/Vol] 25 mmol/L Normal 22-32 [facility] Comment on above: Performed By: #### M G #### [address] [address] Creatinine [Mass/Vol] 0.65 mg/dL Normal 0.61-1.24 [facility] Comment on above: Performed By: #### M G #### [address] [address] Glucose [Mass/Vol] 280 mg/dL High 70-99 [facility] Comment on above: Performed By: #### M G #### [address] [address] Potassium [Moles/Vol] 4.5 mmol/L Normal 3.4-4.8 [facility] Comment on above: Performed By: #### M G #### [address] [address] Sodium [Moles/Vol] 133 mmol/L Normal 133-142 [facility] Comment on above: Performed By: #### M G #### [address] [address] Urea nitrogen [Mass/Vol] 13 mg/dL Normal 8-26 [facility] Comment on above: Performed By: #### M G #### [address] [address] Urea nitrogen/Creatinine [Mass ratio] 20.0 mg/mg Normal 10.0-20.0 [facility] Comment on above: Performed By: #### M G #### [address] [address] CBCon 07-25-2023 Erythrocyte distribution width (RBC) [Ratio] 14.7 % Normal 11.6-14.8 [facility] Comment on above: Performed By: #### C BCI ####[address] [address] Hematocrit (Bld) [Volume fraction] 29.0 % Low 41.0-53.0 [facility] Comment on above: Performed By: #### C BCI ####[address] [address] Hemoglobin (Bld) [Mass/Vol] 9.9 g/dL Low 13.5-17.5 [facility] Comment on above: Performed By: #### C BCI ####[place] [id number] MCH (RBC) [Entitic mass] 31.5 pg Normal 27.0-35.0 [facility] Comment on above: Performed By: #### C BCI ####[place] [id number] MCHC 34.0 % Normal 31.0-37.0 [facility] Comment on above: Performed By: #### C BCI ####[place] [id number] MCV (RBC) [Entitic vol] 92.6 fL Normal 80.0-100.0 [facility] Comment on above: Performed By: #### C BCI ####[place] [id number] Platelet 153 x10*3/mcL Normal 150-450 [facility] Comment on above: Performed By: #### C BCI ####[place] [id number] Platelet mean volume (Bld) [Entitic vol] 6.7 fL Normal 6.7-10.6 [facility] Comment on above: Performed By: #### C BCI ####[place] [id number] RBC 3.13 x10*6/mcL Low 4.30-5.80 [facility] Comment on above: Performed By: #### C BCI ####[place] [id number] WBC 5.8 x10*3/mcL Normal 4.5-11.0 [facility] Comment on above: Performed By: #### C BCI ####[place] [id number] Magnesiumon 07-25-2023 Magnesium [Mass/Vol] 1.5 mg/dL Low 1.7-2.4 [facility] Comment on above: Performed By: #### M G ####[place] [address] [place] [address] Orthopedic Progress Noteon 1 Orthopedic Progress Note [...] Dose: 07/24/23 17:00:00 EDT, Dispense From Location: [facility], Joint Infection, 07/24/23 17:00:00 EDT Electronically signed by Justin Mcgowan MD 07/25/23 06:22 EDT Normal [facility] POC Glucose Randomon 023 Glucose [Mass/Vol] 234 mg/dL High 70-99 [facility] Comment on above: Performed By: #### M G #### [address] [address] Glucose [Mass/Vol] 201 mg/dL High 70-99 [facility] Comment on above: Performed By: #### C [id number] ####[address] [address] Glucose [Mass/Vol] 245 mg/dL High 70-99 [facility] Comment on above: Performed By: #### C D:[id number] ####[address] [address] Glucose [Mass/Vol] 138 mg/dL High 70-99 [facility] Comment on above: Performed By: #### M G #### [address] [address] Vanco Troughon 07-25-2023 Vanco Trough 22.80 mcg/mL High 10.00-15.00 [facility] Comment on above: Performed By: #### E GFR #### [address] [address] .eGFRon 07-24-2023 GFR/1.73 sq M.predicted MDRD (S/P/Bld) [Vol rate/Area] mL/min/{1.73_m2} Normal >=60 [facility] Comment on above: Result Comment: [facility] have implemented the eGFR calculation [...] = years Performed By: #### E GFR ####[facility] [place] [address] Basic Metabolic Profileon Anion gap [Moles/Vol] 11 mmol/L Normal 7-17 [facility] Comment on above: Performed By: #### M G #### [facility] [address] [place] [address] Calcium [Mass/Vol] 8.0 mg/dL Low 8.5-10.3 [facility] Comment on above: Performed By: #### M G #### [facility] [address] [place] [address] Chloride [Moles/Vol] 101 mmol/L Normal 98-110 [facility] Comment on above: Performed By: #### M G #### [facility] [address] [place] [address] CO2 [Moles/Vol] 24 mmol/L Normal 22-32 [facility] Comment on above: Performed By: #### M G #### [address] [address] Creatinine [Mass/Vol] 0.66 mg/dL Normal 0.61-1.24 [facility] Comment on above: Performed By: #### M G #### [address] [address] Glucose [Mass/Vol] 168 mg/dL High 70-99 [facility] Comment on above: Performed By: #### M G #### [address] [address] Potassium [Moles/Vol] 4.6 mmol/L Normal 3.4-4.8 [facility] Comment on above: Performed By: #### M G #### [address] [address] Sodium [Moles/Vol] 131 mmol/L Low 133-142 [facility] Comment on above: Performed By: #### M G #### [address] [address] Urea nitrogen [Mass/Vol] 11 mg/dL Normal 8-26 [facility] Comment on above: Performed By: #### M G #### [address] [address] Urea nitrogen/Creatinine [Mass ratio] 16.7 mg/mg Normal 10.0-20.0 [facility] Comment on above: Performed By: #### M G #### [address] [address] CBCon 07-24-2023 Erythrocyte distribution width (RBC) [Ratio] 14.6 % Normal 11.6-14.8 [facility] Comment on above: Performed By: #### C BCI ####[address] [address] Hematocrit (Bld) [Volume fraction] 29.9 % Low 41.0-53.0 [facility] Comment on above: Performed By: #### C BCI ####[place] [id number] Hemoglobin (Bld) [Mass/Vol] 10.1 g/dL Low 13.5-17.5 [facility] Comment on above: Performed By: #### C BCI ####[place] [id number] MCH (RBC) [Entitic mass] 31.8 pg Normal 27.0-35.0 [facility] Comment on above: Performed By: #### C BCI ####[place] [address] MCHC 33.9 % Normal 31.0-37.0 [facility] Comment on above: Performed By: #### C BCI ####[place] [id number] MCV (RBC) [Entitic vol] 93.8 fL Normal 80.0-100.0 [facility] Comment on above: Performed By: #### C BCI ####[place] [id number] Platelet 126 x10*3/mcL Low 150-450 [facility] Comment on above: Performed By: #### C BCI ####[place] [id number] Platelet mean volume (Bld) [Entitic vol] 6.8 fL Normal 6.7-10.6 [facility] Comment on above: Performed By: #### C BCI ####[place] [id number] RBC 3.19 x10*6/mcL Low 4.30-5.80 [facility] Comment on above: Performed By: #### C BCI ####[place] [id number] WBC 6.9 x10*3/mcL Normal 4.5-11.0 [facility] Comment on above: Performed By: #### C BCI ####[place] [id number] Infectious Disease Progress Noteon 07-24-2023 Infectious Disease [...] continue to follow. Electronically signed by Linh Clemosn 07/24/23 11:09 EDT History reviewed. Overall feeling okay. Will try to get vancomycin down to twice daily dosing which is usually the norm for his age. Electronically signed by Johnny Cespedes MD 07/24/23 16:49 EDT Normal [facility] Magnesiumon 07-24-2023 Magnesium [Mass/Vol] 1.6 mg/dL Low 1.7-2.4 [facility] Comment on above: Performed By: #### M G ####[facility] [place] [address] Orthopedic Progress Noteon 1 Orthopedic Progress Note [...] Justin Mcgowan MD 07/24/23 15:51 EDT Normal [facility] POC Glucose Randomon 023 Glucose [Mass/Vol] 197 mg/dL High 70-99 [facility] Comment on above: Performed By: #### C [id number] ####[address] [address] Glucose [Mass/Vol] 258 mg/dL High 70-99 [facility] Comment on above: Performed By: #### C D:[id number] ####[address] [address] Glucose [Mass/Vol] 338 mg/dL High 70-99 [facility] Comment on above: Performed By: #### C D:[id number] ####[address] [address] Glucose [Mass/Vol] 341 mg/dL High 70-99 [facility] Comment on above: Performed By: #### C D:[id number] ####[place] [address] [place] [address] Glucose [Mass/Vol] 167 mg/dL High 70-99 [facility] Comment on above: Performed By: #### C D:[id number] ####[address] [address] Progress Note-Nurseon 2022 Progress Note-Nurse First assessment [...] signed by Teresa Hong 07/24/23 14:50 EDT [facility] Progress Note-Nurse 4F single lumen Erwin r PICC solo inserted per MST in the right basilic vein 07/24/2023. Sterile field maintained. No complications noted. patient tolerated well, arm circ 35 cm cut length 44 cm. External length 0 cm. XR tip confirmation. PICC tip SVC confirmed by Dr Lamar lot [id number] exp 08/18/2024 Michelle Oshea Normal [facility] Vanco Troughon 07-24-2023 Vanco Trough 9.50 mcg/mL Low 10.00-15.00 [facility] Comment on above: Performed By: #### V ANCT ####[place] [address] [place] [address] .eGFRon 07-23-2023 GFR/1.73 sq M.predicted MDRD (S/P/Bld) [Vol rate/Area] mL/min/{1.73_m2} Normal >=60 [facility] Comment on above: Result Comment: [facility] have implemented the eGFR calculation [...] = years Performed By: #### E GFR ####[address] [address] Basic Metabolic Profileon Anion gap [Moles/Vol] 10 mmol/L Normal 7-17 [facility] Comment on above: Performed By: #### C [id number] #### [address] [address] Calcium [Mass/Vol] 8.3 mg/dL Low 8.5-10.3 [facility] Comment on above: Performed By: #### C D:[id number] #### [address] [address] Chloride [Moles/Vol] 103 mmol/L Normal 98-110 [facility] Comment on above: Performed By: #### C D:[id number] #### [address] [address] CO2 [Moles/Vol] 24 mmol/L Normal 22-32 [facility] Comment on above: Performed By: #### C D:[id number] #### [address] [address] Creatinine [Mass/Vol] 0.92 mg/dL Normal 0.61-1.24 [facility] Comment on above: Performed By: #### C D:[id number] #### [address] [address] Glucose [Mass/Vol] 218 mg/dL High 70-99 [facility] Comment on above: Performed By: #### C D:[id number] #### [address] [address] Potassium [Moles/Vol] 4.2 mmol/L Normal 3.4-4.8 [facility] Comment on above: Performed By: #### C D:[id number] #### [address] [address] Sodium [Moles/Vol] 133 mmol/L Normal 133-142 [facility] Comment on above: Performed By: #### C D:[id number] #### [address] [address] Urea nitrogen [Mass/Vol] 12 mg/dL Normal 8-26 [facility] Comment on above: Performed By: #### C D:[id number] #### [address] [address] Urea nitrogen/Creatinine [Mass ratio] 13.0 mg/mg Normal 10.0-20.0 [facility] Comment on above: Performed By: #### C D:[id number] #### [address] [address] C Sterile BFon 07-23-2023 C Sterile BF -- - Final No growth at 2 weeks. - Gram Stain Many White Blood Cells No organisms seen. Normal [facility] Comment on above: Performed By: #### C SBF ####[place] [address] CBCon 07-23-2023 Erythrocyte distribution width (RBC) [Ratio] 14.4 % Normal 11.6-14.8 [facility] Comment on above: Performed By: #### C BCI ####[place] [id number] Hematocrit (Bld) [Volume fraction] 34.4 % Low 41.0-53.0 [facility] Comment on above: Performed By: #### C BCI ####[place] [id number] Hemoglobin (Bld) [Mass/Vol] 11.6 g/dL Low 13.5-17.5 [facility] Comment on above: Performed By: #### C BCI ####[place] [id number] MCH (RBC) [Entitic mass] 31.7 pg Normal 27.0-35.0 [facility] Comment on above: Performed By: #### C BCI ####[place] [address] MCHC 33.7 % Normal 31.0-37.0 [facility] Comment on above: Performed By: #### C BCI ####[address] [address] MCV (RBC) [Entitic vol] 93.8 fL Normal 80.0-100.0 [facility] Comment on above: Performed By: #### C BCI ####[address] [address] Platelet 133 x10*3/mcL Low 150-450 [facility] Comment on above: Performed By: #### C BCI ####[address] [address] Platelet mean volume (Bld) [Entitic vol] 7.2 fL Normal 6.7-10.6 [facility] Comment on above: Performed By: #### C BCI ####[address] [address] RBC 3.67 x10*6/mcL Low 4.30-5.80 [facility] Comment on above: Performed By: #### C BCI ####[address] [address] WBC 9.3 x10*3/mcL Normal 4.5-11.0 [facility] Comment on above: Performed By: #### C BCI ####[address] [address] Infectious Disease Consultat [facility] [place] 07-23-2023 Infectious Disease Consultation Chief Complaint Transfer from [facility] secondary to postop infection Reason for [...] day of it. Patient was transferred to [facility] from [facility] with concerns of postop infection right [...] Oral, Edvin (more content not included)... Normal [facility] Magnesiumon 07-23-2023 Magnesium [Mass/Vol] 1.6 mg/dL Low 1.7-2.4 [facility] Comment on above: Performed By: #### M G #### [facility] [address] [place] [address] Orthopedic Progress Noteon 1 Orthopedic Progress Note [...] Justin Mcgowan MD 07/24/23 15:50 EDT Normal [facility] POC Glucose Randomon 023 Glucose [Mass/Vol] 254 mg/dL High 70-99 [facility] Comment on above: Performed By: #### C [id number] ####[address] [address] Glucose [Mass/Vol] 217 mg/dL High 70-99 [facility] Comment on above: Performed By: #### C [id number] ####[address] [address] Glucose [Mass/Vol] 383 mg/dL High 70-99 [facility] Comment on above: Performed By: #### E GFR #### [address] [address] Glucose [Mass/Vol] 167 mg/dL High 70-99 [facility] Comment on above: Performed By: #### C [id number] ####[address] [address] Progress Note-Nurseon 2022 Progress Note-Nurse Assessment of [...] by Teresa Hong 07/23/23 15:20 EDT Normal [facility] Comment on above: Order Comment: 125mm /hg /low setting .BF Cell Cnt RBC Aon 023 Fluid RBC Count [id number] /mcL Normal [facility] Comment on above: Performed By: #### . Body Fluid Cell Count RBC Auto ####[facility] [place] [address] Fluid RBC Count 953986 /mcL Normal [facility] Comment on above: Performed By: #### C [id number] #### [facility] [address] [place] [address] Fluid RBC Count 423809 /mcL Normal [facility] Comment on above: Performed By: #### E GFR #### [address] [address] .BF Cell Cnt WBC Aon 023 Fluid WBC Count 86560 /mcL High 0-150 [facility] Comment on above: Performed By: #### E GFR #### [address] [address] Fluid WBC Count 42586 /mcL High 0-150 [facility] Comment on above: Performed By: #### M G #### [address] [address] Fluid WBC Count 27891 /mcL High 0-150 [facility] Comment on above: Performed By: #### . Body Fluid Cell Count WBC Auto ####[address] [address] .BF Diffon 07-22-2023 Fluid Mononuclear Cells 4 % Normal 0-78 [facility] Comment on above: Performed By: #### . Body Fluid Differential ####[address] [address] Fluid Other Cells 0 % Normal 0-10 [facility] Comment on above: Performed By: #### . Body Fluid Differential ####[address] [address] Fluid Polynuclear Cells 96 % High 0-25 [facility] Comment on above: Performed By: #### . Body Fluid Differential ####[address] [address] Fluid Mononuclear Cells 5 % Normal 0-78 [facility] Comment on above: Performed By: #### E GFR #### [address] [address] Fluid Other Cells 0 % Normal 0-10 [facility] Comment on above: Performed By: #### E GFR #### [address] [address] Fluid Polynuclear Cells 95 % High 0-25 [facility] Comment on above: Performed By: #### E GFR #### [facility] [address] [place] [address] Fluid Mononuclear Cells 4 % Normal 0-78 [facility] Comment on above: Performed By: #### . Body Fluid Differential ####[facility] [place] [address] Fluid Other Cells 0 % Normal 0-10 [facility] Comment on above: Performed By: #### . Body Fluid Differential ####[address] [address] Fluid Polynuclear Cells 96 % High 0-25 [facility] Comment on above: Performed By: #### . Body Fluid Differential ####[place] [address] [place] [address] .eGFRon 07-22-2023 GFR/1.73 sq M.predicted MDRD (S/P/Bld) [Vol rate/Area] mL/min/{1.73_m2} Normal >=60 [facility] Comment on above: Result Comment: [facility] have implemented the eGFR calculation [...] = years Performed By: #### E GFR ####[address] [address] BF Cell Counton 07-22-2023 Body Fluid Cell Cnt Type Synovial Normal [facility] Comment on above: Performed By: #### M G #### [place] [address] Body Fluid Cell Cnt Type Synovial Normal [facility] Comment on above: Performed By: #### E SR #### [place] [address] Body Fluid Cell Cnt Type Synovial Normal [facility] Comment on above: Performed By: #### M G #### [place] [address] C Sterile BFon 07-22-2023 C Sterile BF -- - Final No growth at 2 weeks. - Gram Stain Many White Blood Cells No organisms seen. Normal [facility] Comment on above: Performed By: #### C SBF ####[place] [address] ED Clinical Summaryon 2022 [place] [address] ED Clinical Summary Person Information Name: Joie Lu Sondra/[facility] Age: 68 Years : 1955 Sex: Male PCP: Marital Status: Phone: Race: White Ethnicity: Not or Language: [place] Visit Reason: Wound infection - uncomplicated; Surgical problem Acuity: 3 Enc Type: Observation Med Service: Emergency Medicine Arrival: 07/21/2023 19:33:54 Discharge: LOS: 000 02:27 Checkin: 07/21/2023 19:33:54 Checkout: 07/21/2023 22:00:13 Dispo Type: Address: [address] [place] [id number] Provider Notes: History of Present Illness 68-year-old male presents with right knee pain.? 3 and half weeks ago he had a right knee replacement done by Dr. Mcgowan at [facility].? He tells me over the past few days he has developed worsening pain, swelling?and some drainage from the incision on his knee. ?He was at [facility] today.? He had blood work done and Dr. Mcgowan was consulted. ?He requested to have patient admitted to?[facility].? I had initially spoken with the ED [...] 50 mcg/ (more content not included)... Normal [facility] ESRon 07-22-2023 Sed Rate 23 mm/hr Normal 0-23 [facility] Comment on above: Performed By: #### E SR ####[place] [id number] Hgb A1con 07-22-2023 Glucose [Mass/Vol] 120 mg/dL High 68-114 [facility] Comment on above: Result Comment: Math ematical Calc approx. The mean gluc equivalency of A1c Performed By: #### H BA1C ####[place] [id number] Hgb A1c 5.8 % A1c High 4.0-5.6 [facility] Comment on above: Result Comment: Refe rence Range: 4.0 - 5.6 % Normal 5.7 - 6.4 % Pre-Diabetes > 6.5 % Diabetes Performed By: #### H BA1C ####[place] [id number] Occupational Medicine Progre ss Noteon 07-22-2023 Occupational Medicine Progress Note Attempted to eval pt this AM, pt falling asleep during conversation. Pt requested to come back at a later time. Will attempt to see as time allows. Electronically signed by Aggie Cortes 07/22/23 13:16 EDT Normal [facility] Orthopedic Consultationon Orthopedic Consultation Chief Complaint Transfer from [facility] secondary to postop infection Reason for [...] PRN heparin, 5000 units= 1 mL, Subcutaneous, [id number]-[id number] Times influenza virus vaccine, inactivated 5+ years [...] History Alco (more content not included)... Normal [facility] POC Glucose Randomon 023 Glucose [Mass/Vol] 139 mg/dL High 70-99 [facility] Comment on above: Performed By: #### C [id number] ####[facility] [place] [address] Glucose [Mass/Vol] 121 mg/dL High 70-99 [facility] Comment on above: Performed By: #### M G #### [facility] [address] [place] [address] Glucose [Mass/Vol] 198 mg/dL High 70-99 [facility] Comment on above: Performed By: #### E GFR #### [address] [address] Physical Therapy Progress No yossi 07-22-2023 Physical Therapy Progress Note Upon arrival, pt supine. 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 Pt politely request to work w/ PT services tomorrow. States significant pain in his knee. Will reattempt tomorrow as able. Thank you. Electronically signed by Surekha Haley 07/22/23 16:41 EDT Normal [facility] Renal Panelon 07-22-2023 Albumin [Mass/Vol] 3.3 g/dL Normal 3.2-4.9 [facility] Comment on above: Performed By: #### R ENAL ####[address] [address] Anion gap [Moles/Vol] 10 mmol/L Normal 7-17 [facility] Comment on above: Performed By: #### R ENAL ####[address] [address] Calcium [Mass/Vol] 8.8 mg/dL Normal 8.5-10.3 [facility] Comment on above: Performed By: #### R ENAL ####[address] [address] Chloride [Moles/Vol] 102 mmol/L Normal 98-110 [facility] Comment on above: Performed By: #### R ENAL ####[address] [address] CO2 [Moles/Vol] 25 mmol/L Normal 22-32 [facility] Comment on above: Performed By: #### R ENAL ####[address] [address] Creatinine [Mass/Vol] 1.03 mg/dL Normal 0.61-1.24 [facility] Comment on above: Performed By: #### R ENAL ####[address] [address] Glucose [Mass/Vol] 165 mg/dL High 70-99 [facility] Comment on above: Performed By: #### R ENAL ####[address] [address] Phosphate [Mass/Vol] 3.1 mg/dL Normal 2.5-4.6 [facility] Comment on above: Performed By: #### R ENAL ####[address] [address] Potassium [Moles/Vol] 4.5 mmol/L Normal 3.4-4.8 [facility] Comment on above: Performed By: #### R ENAL ####[address] [address] Sodium [Moles/Vol] 133 mmol/L Normal 133-142 [facility] Comment on above: Performed By: #### R ENAL ####[address] [address] Urea nitrogen [Mass/Vol] 15 mg/dL Normal 8-26 [facility] Comment on above: Performed By: #### R ENAL ####[address] [address] Urea nitrogen/Creatinine [Mass ratio] 14.6 mg/mg Normal 10.0-20.0 [facility] Comment on above: Performed By: #### R ENAL ####[address] [address] .eGFRon 07-21-2023 GFR/1.73 sq M.predicted MDRD (S/P/Bld) [Vol rate/Area] mL/min/{1.73_m2} Normal >=60 [facility] Comment on above: Result Comment: [facility] have implemented the eGFR calculation [...] = years Performed By: #### E GFR ####[address] [address] Basic Metabolic Profileon Creatinine [Mass/Vol] 0.90 mg/dL Normal 0.61-1.24 [facility] Comment on above: Performed By: #### C [id number] ####[address] [address] Urea nitrogen [Mass/Vol] 16 mg/dL Normal 8-26 [facility] Comment on above: Performed By: #### C D:[id number] ####[place] [address] [place] [address] Urea nitrogen/Creatinine [Mass ratio] 17.8 mg/mg Normal 10.0-20.0 [facility] Comment on above: Performed By: #### C [id number] ####[address] [address] Anion gap [Moles/Vol] 11 mmol/L Normal 7-17 [facility] Comment on above: Performed By: #### C [id number] ####[place] [address] [place] [address] Calcium [Mass/Vol] 8.6 mg/dL Normal 8.5-10.3 [facility] Comment on above: Performed By: #### C [id number] ####[address] [address] Chloride [Moles/Vol] 100 mmol/L Normal 98-110 [facility] Comment on above: Performed By: #### C [id number] ####[address] [address] CO2 [Moles/Vol] 22 mmol/L Normal 22-32 [facility] Comment on above: Performed By: #### C [id number] ####[address] [address] Glucose [Mass/Vol] 177 mg/dL High 70-99 [facility] Comment on above: Performed By: #### C [id number] ####[address] [address] Potassium [Moles/Vol] 3.8 mmol/L Normal 3.4-4.8 [facility] Comment on above: Performed By: #### C [id number] ####[address] [address] Sodium [Moles/Vol] 129 mmol/L Low 133-142 [facility] Comment on above: Performed By: #### C [id number] ####[address] [address] CBCon 07-21-2023 Erythrocyte distribution width (RBC) [Ratio] 15.2 % High 11.6-14.8 [facility] Comment on above: Performed By: #### E SR #### [address] [address] Hematocrit (Bld) [Volume fraction] 38.0 % Low 41.0-53.0 [facility] Comment on above: Performed By: #### E SR #### [address] [address] Hemoglobin (Bld) [Mass/Vol] 12.8 g/dL Low 13.5-17.5 [facility] Comment on above: Performed By: #### E SR #### [address] [address] MCH (RBC) [Entitic mass] 31.7 pg Normal 27.0-35.0 [facility] Comment on above: Performed By: #### E SR #### [address] [address] MCHC 33.7 % Normal 31.0-37.0 [facility] Comment on above: Performed By: #### E SR #### [address] [address] MCV (RBC) [Entitic vol] 94.0 fL Normal 80.0-100.0 [facility] Comment on above: Performed By: #### E SR #### [address] [address] Platelet 156 x10*3/mcL Normal 150-450 [facility] Comment on above: Performed By: #### E SR #### [address] [address] Platelet mean volume (Bld) [Entitic vol] 7.2 fL Normal 6.7-10.6 [facility] Comment on above: Performed By: #### E SR #### [address] [address] RBC 4.04 x10*6/mcL Low 4.30-5.80 [facility] Comment on above: Performed By: #### E SR #### [address] [address] WBC 13.7 x10*3/mcL High 4.5-11.0 [facility] Comment on above: Performed By: #### E SR #### [address] [address] CRPon 07-21-2023 CRP 24.09 mg/dL High 0.00-0.75 [facility] Comment on above: Result Comment: CRP measurement is useful for assessment of non-specific INFLAMMATORY RESPONSE to infection or injury AND is a sensitive MARKER of ACUTE INFLAMMATION including CARDIAC RISK ASSESSMENT. CARDIAC patients with elevated CRP are POTENTIALLY at a HIGHER RISK OF FUTURE CARDIAC EVENTS. Performed By: #### C [id number] #### [facility] [address] [place] [address] ED Note-Physicianon 07-21-20 ED Note-Physician Chief Complaint Patient coming from [facility], c/o knee pain 04/27, tatianalucho, had a knee replacement surgery 3 weeks ago. History of Present Illness 68-year-old male presents with right knee pain. 3 and half weeks ago he had a right knee replacement done by Dr. Mcgowan at [facility]. He tells me over the past few days he has developed worsening pain, swelling and some drainage from the incision on his knee. He was at [facility] today. He had blood work done and Dr. Mcgowan was consulted. He requested to have patient admitted to [facility]. I had initially spoken with the ED [...] from someone other than the patient: Reviewed [employer] EMR to see if recent visits or [...] _ ? NEXUS C-spine Criteria: _ ? [place] Ankle Rule: _ ? [place] Knee Rule: _ ? Wells Criteria for [...] PRN heparin, 5000 units= 1 mL, Subcutaneous, [id number]-[id number] Times MiraLax, 17 g= 1 EA, Oral, Daily, PRN naloxone, 0.4 mg= 1 mL, IV Push, q2min, PRN Normal Saline Flush 0.9% injectable solution, 10 mL, IV Push, As Indicated, PRN Normal Saline Flush 0.9% injectable solution, 10 mL, IV Push, BID ondansetron (more content not included)... Normal [facility] Magnesiumon 07-21-2023 Magnesium [Mass/Vol] 1.7 mg/dL Normal 1.7-2.4 [facility] Comment on above: Performed By: #### M G ####[facility] [place] [address] XR KNEE RIGHT (1-2 VIEWS)on 06-27-2023 XR [...] Messi Upton DO 06/27/23 Final result Normal [facility] Basic Metabolic Profon 06-26 Anion gap [Moles/Vol] 12 mmol/L Normal 07-05 [facility] Comment on above: Performed By: #### H H, BMP #### [facility] [address] [place] [address] [employer] Cards And Announcements: Oliver Cabrera MD BUN/CRE Ratio 25 High 9- [facility] Comment on above: Performed By: #### H H, BMP #### [facility] [address] [place] [address] [employer] Cards And Announcements: Oliver Cabrera MD Calcium [Mass/Vol] 9.1 mg/dL Normal 8.6-10.4 [facility] Comment on above: Performed By: #### H H, BMP #### [facility] [address] [place], [place] [id number] [employer] Cards [employer] Announcements: Oliver Cabrera MD Chloride [Moles/Vol] 98 mmol/L Normal 98-107 [facility] Comment on above: Performed By: #### H H, BMP #### [facility] [address] [place] [address] [employer] Cards [employer] Announcements: Oliver Cabrera MD CO2 [Moles/Vol] 22 mmol/L Normal 20-31 [facility] Comment on above: Performed By: #### H H, BMP #### [address] [place], [place] [id number] [employer] Cards [employer] Announcements: Oliver Cabrera MD Creatinine [Mass/Vol] 1.0 mg/dL Normal 0.7-1.2 [facility] Comment on above: Performed By: #### H H, BMP #### [address] [place] [address] [employer] Cards [employer] Announcements: Oliver Cabrera MD GFR/1.73 sq M.predicted among non-blacks MDRD (S/P/Bld) [Vol rate/Area] mL/min/{1.73_m2} Normal >60 [facility] Comment on above: Result Comment: These results [...] Performed By: #### H H, BMP #### [facility] [address] [place], [place] [id number] [employer] Cards [employer] Announcements: Oliver Cabrera MD Glucose [Mass/Vol] 208 mg/dL High 70-99 [facility] Comment on above: Performed By: #### H H, BMP #### [facility] [address] [place], [place] [id number] [employer] Cards [employer] Announcements: Oliver Cabrera MD Potassium [Moles/Vol] 4.8 mmol/L Normal 3.7-5.3 [facility] Comment on above: Performed By: #### H H, BMP #### [facility] [address] [place], [place] [id number] [employer] Cards [employer] Announcements: Oliver Cabrera MD Sodium [Moles/Vol] 132 mmol/L Low 135-144 [facility] Comment on above: Performed By: #### H H, BMP #### [address] [place], [place] [id number] [employer] Cards [employer] Announcements: Oliver Cabrera MD Urea nitrogen [Mass/Vol] 25 mg/dL High 8-23 [facility] Comment on above: Performed By: #### H H, BMP #### [address] [place], [place] [id number] [employer] Cards [employer] Announcements: Oliver Cabrera MD Hgb/Hcton 06-26-2023 Hematocrit (Bld) [Volume fraction] 37.2 % Low 40.7-50.3 [facility] Comment on above: Performed By: #### H H, BMP #### [facility] [address] [place], [place] [id number] [employer] Cards [employer] Announcements: Oliver Cabrera MD Hemoglobin (Bld) [Mass/Vol] 12.6 g/dL Low 13.0-17.0 [facility] Comment on above: Performed By: #### H H, BMP #### [facility] [address] [place], [place] [id number] [employer] Cards And Announcements: Oliver Cabrera MD MRSA, DNA, Nasalon 3 MRSA, DNA, Nasal Negative Normal NEG [facility] Comment on above: Result Comment: ANKITA JOHNSON: [...] DP, CP, UMICAO, PT, PTT, UAX #### [facility] [address] [place] [address] [employer] Cards And Announcements: Oliver Cabrera MD #### MRSANO #### [facility] [address] [place] [address] Assembler Cards And Announcements: Glenn Noyola MD [facility] [address] [place] [address] As[employer] Cards And Announcements: Oliver Cabrera MD XR CHEST (2 VW)on [...] Chris Wiseman MD 06/11/23 Final result Normal [facility] Multifocal bibasilar pneumonia. Probable mild reactive left hilar adenopathy. No sizable pleural effusion. The findings were sent to the Radiology Results Communication Center at 9:05 a.m. on 06/11/2023 to be communicated to a licensed caregiver. [facility] CONSOLIDATED EXAMINATION: TWO XRAY VIEWS OF THE [...] appearing height loss mid-lower TS vertebral bodies. [facility] Chris Wiseman MD - 06/11/2023 EXAMINATION: TWO [...] to be communicated to a licensed caregiver. [facility] XR CHEST (2 VW)Ordered By: Mame Wiseman on 06-11-2023 [facility] Work Phone: APTTon 06-10-2023 aPTT Coag (Blgrabiel) [Time] s Critically high 26.8-34.8 [facility] Comment on above: Result Comment: IV Heparin Therapy Range: 62.0-94.0 Performed By: #### C DP, CP, UMICAO, PT, PTT, UAX #### [facility] [address] [place] [address] As[employer] Cards And Announcements: Oliver Cabrera MD #### MRSANO #### [facility] [address] [place], [place] [id number] [employer] Cards And Announcements: Glenn Noyola MD [facility] [address] [place] [address] Assembler Cards And Announcements: Oliver Cabrera MD Interpretation and review of laboratory results Abnormal [facility] PTT Critically high [facility] Comment on above: IV Heparin Therapy Range: 62.0-94.0 [facility] CBC with Auto Differentialon 06-10-2023 Basophils (Bld) [#/Vol] 0.07 10*3/uL [facility] Basophils/100 WBC (Bld) 1 % 0 - 2 % [facility] Eosinophils (Bld) [#/Vol] 1.14 10*3/uL High [facility] Eosinophils/100 WBC (Bld) 9 % High 1 - 4 % [facility] Erythrocyte distribution width (RBC) [Ratio] 12.5 % 11.8 - 14.4 % [facility] Hematocrit (Bld) [Volume fraction] 40.4 % Low 40.7 - 50.3 % [facility] Hemoglobin (Bld) [Mass/Vol] 13.7 g/dL 13.0 - 17.0 g/dL [facility] Immature granulocytes (Bld) [#/Vol] 0.06 10*3/uL [facility] Immature granulocytes/100 WBC (Bld) 1 % High 0 [facility] Interpretation and review of laboratory results Abnormal [facility] Lymphocytes/100 WBC (Bld) 12 % Low 24 - 43 % [facility] Lymphocytes/100 WBC (Bld) 1.47 % [facility] MCH (RBC) [Entitic mass] 30.4 pg 25.2 - 33.5 pg [facility] MCHC (RBC) [Mass/Vol] 33.9 g/dL 28.4 - 34.8 g/dL [facility] MCV (RBC) [Entitic vol] 89.8 fL 82.6 - 102.9 fL [facility] Monocytes/100 WBC (Bld) 6 % 3 - 12 % [facility] Monocytes/100 WBC (Bld) 0.73 % [facility] Neutrophils/100 WBC (Bld) 71 % High 36 - 65 % [facility] Nucleated RBC/100 WBC (Bld) [Ratio] 0.0 % 0.0 per 100 WBC [facility] Platelet mean volume (Bld) [Entitic vol] 9.3 fL 8.1 - 13.5 fL [facility] Platelets (Bld) [#/Vol] 162 10*3/uL [facility] RBC (Bld) [#/Vol] 4.50 10*6/uL 4.21 - 5.7 7 m/uL [facility] Segmented neutrophils/100 WBC (Bld) 8.83 % High [facility] WBC other (Bld) [#/Vol] 12.3 High [facility] CBC with Diffon 06-10-2023 Abs. Basophil 0.07 k/uL Normal 0.00-0.[address] [facility] Comment on above: Performed By: #### C DP, CP, UMICAO, PT, PTT, UAX #### [address] [place] [id number] Assembler Cards And Announcements: Oliver Cabrera MD #### MRSANO #### [address] [id number] Assembler Cards And Announcements: Glenn Noyola MD [facility] [address] [place] [address] [place] [address] Assembler Cards And Announcements: Oliver Cabrera MD Abs.Imm.Granulocyte 0.06 k/uL Normal 0.00-0.30 [facility] Comment on above: Performed By: #### C DP, CP, UMICAO, PT, PTT, UAX #### [address] [place] [address] Assembler Cards And Announcements: Oliver Cabrera MD #### MRSANO #### [address] [place] [address] Assembler Cards And Announcements: Glenn Noyola MD [address] [place] [address] Assembler Cards And Announcements: Oliver Cabrera MD Abs.Neutrophil (Seg) 8.83 k/uL High 1.50-8.10 [facility] Comment on above: Performed By: #### C DP, CP, UMICAO, PT, PTT, UAX #### [address] [place] [address] Assembler Cards And Announcements: Oliver Cabrera MD #### MRSANO #### [address] [address] As[employer] Cards And Announcements: Glenn Noyola MD [address] [place] [address] Assembler Cards And Announcements: Oliver Cabrera MD Basophils/100 WBC (Bld) 1 % Normal 0-2 [facility] Comment on above: Performed By: #### C DP, CP, UMICAO, PT, PTT, UAX #### [address] [place] [address] Assembler Cards And Announcements: Oliver Cabrera MD #### MRSANO #### [address] [address] As[employer] Cards And Announcements: Glenn Noyola MD [address] [place] [address] Assembler Cards And Announcements: Oliver Cabrera MD Eosinophils (Bld) [#/Vol] 1.14 10*3/uL High 0.00-0.44 [facility] Comment on above: Performed By: #### C DP, CP, UMICAO, PT, PTT, UAX #### [address] [place], [place] [id number] Assembler Cards And Announcements: Oliver Cabrera MD #### MRSANO #### [facility] [address] [place], [place] [id number] Assembler Cards And Announcements: Glenn Noyola MD [address] [place], [place] [id number] Assembler Cards And Announcements: Oliver Cabrera MD Eosinophils/100 WBC (Bld) 9 % High 1-4 [facility] Comment on above: Performed By: #### C DP, CP, UMICAO, PT, PTT, UAX #### [address] [place], [place] 8431683 As[employer]er Cards And Announcements: Oliver Cabrera MD #### MRSANO #### [address] [address] [place], [place] [id number] Assembler Cards And Announcements: Glenn Noyola MD [address] [place] [phone] Assembler Cards And Announcements: Oliver Cabrera MD Erythrocyte distribution width (RBC) [Ratio] 12.5 % Normal 11.8-14.4 [facility] Comment on above: Performed By: #### C DP, CP, UMICAO, PT, PTT, UAX #### [address] [place], [place] 9407583 Assembler Cards And Announcements: Oliver Cabrera MD #### MRSANO #### [address] [address] Assembler Cards And Announcements: Glenn Noyola MD [address] [place] [phone] Assembler Cards And Announcements: Oliver Cabrera MD Hematocrit (Bld) [Volume fraction] 40.4 % Low 40.7-50.3 [facility] Comment on above: Performed By: #### C DP, CP, UMICAO, PT, PTT, UAX #### [address] [place], [place] 6233283 Assembler Cards And Announcements: Oliver Cabrera MD #### MRSANO #### [facility] [address] [place] [address] Assembler Cards And Announcements: Glenn Noyola MD [address] [place] [address] Assembler Cards And Announcements: Oliver Cabrera MD Hemoglobin (Bld) [Mass/Vol] 13.7 g/dL Normal 13.0-17.0 [facility] Comment on above: Performed By: #### C DP, CP, UMICAO, PT, PTT, UAX #### [address] [place] [phone] Assembler Cards And Announcements: Oliver Cabrera MD #### MRSANO #### [address] [address] Assembler Cards And Announcements: Glenn Noyola MD [address] [place] [address] Assembler Cards And Announcements: Oliver Cabrera MD Immature granulocytes/100 WBC (Bld) 1 % High 0 [facility] Comment on above: Performed By: #### C DP, CP, UMICAO, PT, PTT, UAX #### [address] [place] [address] Assembler Cards And Announcements: Oliver Cabrera MD #### MRSANO #### [address] [address] Assembler Cards And Announcements: Glenn Noyola MD [address] [place] [address] Assembler Cards And Announcements: Oliver Cabrera MD Lymphocytes (Bld) [#/Vol] 1.47 10*3/uL Normal 1.10-3.70 [facility] Comment on above: Performed By: #### C DP, CP, UMICAO, PT, PTT, UAX #### [address] [place] [phone] Assembler Cards And Announcements: Oliver Cabrera MD #### MRSANO #### [facility] [address] [place], [place] 4781008 Assembler Cards And Announcements: Glenn Noyola MD [address] [place], [place] 1082383 Assembler Cards And Announcements: Oliver Cabrera MD Lymphocytes/100 WBC (Bld) 12 % Low 24-43 [facility] Comment on above: Performed By: #### C DP, CP, UMICAO, PT, PTT, UAX #### [address] [place], [place] [phone] Assembler Cards And Announcements: Oliver Cabrera MD #### MRSANO #### [facility] [address] [place], [place] [id number] Assembler Cards And Announcements: Glenn Noyola MD [address] [place] [phone] Assembler Cards And Announcements: Oliver Cabrera MD MCH (RBC) [Entitic mass] 30.4 pg Normal 25.2-33.5 [facility] Comment on above: Performed By: #### C DP, CP, UMICAO, PT, PTT, UAX #### [address] [place], [place] 6489383 Assembler Cards And Announcements: Oliver Cabrera MD #### MRSANO #### [facility] [address] [place] [address] Assembler Cards And Announcements: Glenn Noyola MD [address] [place] [phone] Assembler Cards And Announcements: Oliver Cabrera MD MCHC (RBC) [Mass/Vol] 33.9 g/dL Normal 28.4-34.8 [facility] Comment on above: Performed By: #### C DP, CP, UMICAO, PT, PTT, UAX #### [address] [place], [place] 5310183 Assembler Cards And Announcements: Oliver Cabrera MD #### MRSANO #### [address] [place] [address] Assembler Cards And Announcements: Glenn Noyola MD [address] [place] [address] Assembler Cards And Announcements: Oliver Cabrera MD MCV (RBC) [Entitic vol] 89.8 fL Normal 82.6-102.9 [facility] Comment on above: Performed By: #### C DP, CP, UMICAO, PT, PTT, UAX #### [address] [place] [address] Assembler Cards And Announcements: Oliver Cabrera MD #### MRSANO #### [place] [address] Assembler Cards And Announcements: Glenn Noyola MD [address] [place] [address] Assembler Cards And Announcements: Oliver Cabrera MD Monocytes (Bld) [#/Vol] 0.73 10*3/uL Normal 0.10-1.20 [facility] Comment on above: Performed By: #### C DP, CP, UMICAO, PT, PTT, UAX #### [address] [place] [address] Assembler Cards And Announcements: Oliver Cabrera MD #### MRSANO #### [place] [address] Assembler Cards And Announcements: Glenn Noyola MD [address] [place] [address] Assembler Cards And Announcements: Oliver Cabrera MD Monocytes/100 WBC (Bld) 6 % Normal 3-12 [facility] Comment on above: Performed By: #### C DP, CP, UMICAO, PT, PTT, UAX #### [address] [place] [address] Assembler Cards And Announcements: Oliver Cabrera MD #### MRSANO #### [facility] [address] [place] [address] Assembler Cards And Announcements: Glenn Noyola MD [address] [place], [place] 2754483 Assembler Cards And Announcements: Oliver Cabrera MD Neutrophil (Seg) 71 % High 36-65 [facility] Comment on above: Performed By: #### C DP, CP, UMICAO, PT, PTT, UAX #### [address] [place], [place] 6307283 Assembler Cards And Announcements: Oliver Cabrera MD #### MRSANO #### [address] [place] [address] Assembler Cards And Announcements: Glenn Noyola MD [address] [place] [address] Assembler Cards And Announcements: Oliver Cabrera MD NRBC Automated 0.0 per 100 WBC Normal 0.0 [facility] Comment on above: Performed By: #### C DP, CP, UMICAO, PT, PTT, UAX #### [address] [place], [place] 5355583 Assembler Cards And Announcements: Oliver Cabrera MD #### MRSANO #### [address] [address] Assembler Cards And Announcements: Glenn Noyola MD [address] [place] [phone] Assembler Cards And Announcements: Oliver Cabrera MD Platelet mean volume (Bld) [Entitic vol] 9.3 fL Normal 8.1-13.5 [facility] Comment on above: Performed By: #### C DP, CP, UMICAO, PT, PTT, UAX #### [address] [place], [place] 8119683 Assembler Cards And Announcements: Oliver Cabrera MD #### MRSANO #### [facility] [address] [place] [address] Assembler Cards And Announcements: Glenn Noyola MD [address] [place] [address] Assembler Cards And Announcements: Oliver Cabrera MD Platelets (Bld) [#/Vol] 162 10*3/uL Normal 138-453 [facility] Comment on above: Performed By: #### C DP, CP, UMICAO, PT, PTT, UAX #### [address] [place] [address] Assembler Cards And Announcements: Oliver Cabrera MD #### MRSANO #### [facility] [address] [place] [address] Assembler Cards And Announcements: Glenn Noyola MD [address] [place] [address] Assembler Cards And Announcements: Oliver Cabrera MD RBC (Bld) [#/Vol] 4.50 10*6/uL Normal 4.21-5.77 [facility] Comment on above: Performed By: #### C DP, CP, UMICAO, PT, PTT, UAX #### [address] [place] [address] Assembler Cards And Announcements: Oliver Cabrera MD #### MRSANO #### [facility] [address] [place] [address] Assembler Cards And Announcements: Glenn Noyola MD [address] [place] [address] Assembler Cards And Announcements: Oliver Cabrera MD WBC (Bld) [#/Vol] 12.3 10*3/uL High 3.5-11.3 [facility] Comment on above: Performed By: #### C DP, CP, UMICAO, PT, PTT, UAX #### [address] [place], [place] 8538283 Assembler Cards And Announcements: Oliver Cabrera MD #### MRSANO #### [facility] [address] [place] [address] Assembler Cards And Announcements: Glenn Noyola MD [address] [place], [place] [id number] Assembler Cards And Announcements: Oliver Cabrera MD Comp Metabolic Profon 2022 Albumin [Mass/Vol] 4.2 g/dL Normal 3.5-5.2 [facility] Comment on above: Performed By: #### C DP, CP, UMICAO, PT, PTT, UAX #### [address] [place], [place] 9443783 Assembler Cards And Announcements: Oliver Cabrera MD #### MRSANO #### [address] [address] Assembler Cards And Announcements: Glenn Noyola MD [address] [place] [phone] Assembler Cards And Announcements: Oliver Cabrera MD Albumin/Glob Ratio 1.6 Normal 1.0-2.5 [facility] Comment on above: Performed By: #### C DP, CP, UMICAO, PT, PTT, UAX #### [address] [place], [place] [phone] Assembler Cards And Announcements: Oliver Cabrera MD #### MRSANO #### [address] [address] Assembler Cards And Announcements: Glenn Noyola MD [address] [place], [place] [phone] Assembler Cards And Announcements: Oliver Cabrera MD Alkaline Phos 132 U/L High 40-[address] [facility] Comment on above: Performed By: #### C DP, CP, UMICAO, PT, PTT, UAX #### [address] [place] [address] Assembler Cards And Announcements: Oliver Cabrera MD #### MRSANO #### [facility] [address] [place] [address] Assembler Cards And Announcements: Glenn Noyola MD [address] [place] [address] Assembler Cards And Announcements: Oliver Cabrera MD ALT [Catalytic activity/Vol] 102 U/L High 5-41 [facility] Comment on above: Performed By: #### C DP, CP, UMICAO, PT, PTT, UAX #### [address] [place] [address] Assembler Cards And Announcements: Oliver Cabrera MD #### MRSANO #### [facility] [address] [place] [address] Assembler Cards And Announcements: Glenn Noyola MD [address] [place] [address] Assembler Cards And Announcements: Oliver Cabrera MD Anion gap [Moles/Vol] 10 mmol/L Normal 9-17 [facility] Comment on above: Performed By: #### C DP, CP, UMICAO, PT, PTT, UAX #### [address] [place] [address] Assembler Cards And Announcements: Oliver Cabrera MD #### MRSANO #### [facility] [address] [place] [address] Assembler Cards And Announcements: Glenn Noyola MD [facility] [address] [place] [address] [place] [address] Assembler Cards And Announcements: Oliver Cabrera MD AST [Catalytic activity/Vol] 33 U/L Normal <40 [facility] Comment on above: Performed By: #### C DP, CP, UMICAO, PT, PTT, UAX #### [facility] [address] [place] [address] [place], [place] [phone] Assembler Cards And Announcements: Oliver Cabrera MD #### MRSANO #### [facility] [address] [place] [address] Assembler Cards And Announcements: Glenn Noyola MD [address] [place] [address] Assembler Cards And Announcements: Oliver Cabrera MD Bilirubin [Mass/Vol] 0.5 mg/dL Normal 0.3-1.2 [facility] Comment on above: Performed By: #### C DP, CP, UMICAO, PT, PTT, UAX #### [address] [place], [place] 7035483 Assembler Cards And Announcements: Oliver Cabrera MD #### MRSANO #### [address] [address] Assembler Cards And Announcements: Glenn Noyola MD [address] [place] [address] Assembler Cards And Announcements: Oliver Cabrera MD BUN/CRE Ratio 18 Normal 9-[address] [facility] Comment on above: Performed By: #### C DP, CP, UMICAO, PT, PTT, UAX #### [address] [place] [address] Assembler Cards And Announcements: Oliver Cabrera MD #### MRSANO #### [address] [address] Assembler Cards And Announcements: Glenn Noyola MD [address] [place], [place] 3076283 Assembler Cards And Announcements: Oliver Cabrera MD Calcium [Mass/Vol] 9.6 mg/dL Normal 8.6-10.4 [facility] Comment on above: Performed By: #### C DP, CP, UMICAO, PT, PTT, UAX #### [address] [place], [place] 9548683 Assembler Cards And Announcements: Oliver Cabrera MD #### MRSANO #### [facility] [address] [place] [address] Assembler Cards And Announcements: Glenn Noyola MD [address] [place], [place] 3064683 Assembler Cards And Announcements: Oliver Cabrera MD Chloride [Moles/Vol] 95 mmol/L Low 98-107 [facility] Comment on above: Performed By: #### C DP, CP, UMICAO, PT, PTT, UAX #### [address] [place] [address] Assembler Cards And Announcements: Oliver Cabrera MD #### MRSANO #### [address] [address] Assembler Cards And Announcements: Glenn Noyola MD [address] [place], [place] 1332483 Assembler Cards And Announcements: Oliver Cabrera MD CO2 [Moles/Vol] 26 mmol/L Normal 20-31 [facility] Comment on above: Performed By: #### C DP, CP, UMICAO, PT, PTT, UAX #### [address] [place], [place] 2259483 Assembler Cards And Announcements: Oliver Cabrera MD #### MRSANO #### [address] [address] Assembler Cards And Announcements: Glenn Noyola MD [address] [place] [address] Assembler Cards And Announcements: Oliver Cabrera MD Creatinine [Mass/Vol] 0.8 mg/dL Normal 0.7-1.2 [facility] Comment on above: Performed By: #### C DP, CP, UMICAO, PT, PTT, UAX #### [address] [place] [address] Assembler Cards And Announcements: Oliver Cabrera MD #### MRSANO #### [address] [place] [address] Assembler Cards And Announcements: Glenn Noyola MD [address] [place], [place] 7288283 Assembler Cards And Announcements: Oliver Cabrera MD GFR/1.73 sq M.predicted among non-blacks MDRD (S/P/Bld) [Vol rate/Area] mL/min/{1.73_m2} Normal >60 [facility] Comment on above: Result Comment: These results [...] DP, CP, UMICAO, PT, PTT, UAX #### [address] [place], [place] 5438483 Assembler Cards And Announcements: Oliver Cabrera MD #### MRSANO #### [facility] [address] [place] [address] Assembler Cards And Announcements: Glenn Noyola MD [address] [place] [phone] Assembler Cards And Announcements: Oliver Cabrera MD Glucose [Mass/Vol] 332 mg/dL High 70-99 [facility] Comment on above: Performed By: #### C DP, CP, UMICAO, PT, PTT, UAX #### [address] [place], [place] 6440383 Assembler Cards And Announcements: Oliver Cabrera MD #### MRSANO #### [facility] [address] [place] [address] Assembler Cards And Announcements: Glenn Noyola MD [address] [place], [place] 8126483 Assembler Cards And Announcements: Oliver Cabrera MD Potassium [Moles/Vol] 5.0 mmol/L Normal 3.7-5.3 [facility] Comment on above: Performed By: #### C UZMA AMEZQUITA, UMICAO, PT, PTT, UAX #### [address] [place] [address] Assembler Cards And Announcements: Oliver Cabrera MD #### MRSANO #### [facility] [address] [place] [address] Assembler Cards And Announcements: Glenn Noyola MD [address] [place] [address] Assembler Cards And Announcements: Oliver Cabrera MD Protein [Mass/Vol] 6.9 g/dL Normal 6.4-8.3 [facility] Comment on above: Performed By: #### C UZMA AMEZQUITA, UMICAO, PT, PTT, UAX #### [address] [place] [address] Assembler Cards And Announcements: Oliver Cabrera MD #### MRSANO #### [facility] [address] [place] [address] Assembler Cards And Announcements: Glenn Noyola MD [address] [place] [address] Assembler Cards And Announcements: Oliver Cabrera MD Sodium [Moles/Vol] 131 mmol/L Low 135-144 [facility] Comment on above: Performed By: #### C UZMA AMEZQUITA, UMICAO, PT, PTT, UAX #### [address] [place] [address] Assembler Cards And Announcements: Oliver Cabrera MD #### MRSANO #### [facility] [address] [place] [address] Assembler Cards And Announcements: Glenn Noyola MD [address] [place], [place] 8495183 Assembler Cards And Announcements: Oliver Cabrera MD Urea nitrogen [Mass/Vol] 14 mg/dL Normal 06-10 [facility] Comment on above: Performed By: #### C DP, CP, UMICAO, PT, PTT, UAX #### [facility] [address] [place] [address] Assembler Cards And Announcements: Oliver Cabrera MD #### MRSANO #### [facility] [address] [place] [address] Assembler Cards And Announcements: Glenn Noyola MD [facility] [address] [place] [address] Assembler Cards And Announcements: Oliver Cabrera MD Comprehensive Metabolic [facility] 06-10-2023 Albumin [Mass/Vol] 4.2 g/dL 3.5 - 5.2 g/dL [facility] Albumin/Globulin [Mass ratio] 1.6 {ratio} 1.0 - 2.5 [facility] ALP [Catalytic activity/Vol] 132 U/L High 40 - 129 U/L [facility] ALT [Catalytic activity/Vol] 102 U/L High 5 - 41 U/L [facility] Anion gap [Moles/Vol] 10 mmol/L 9 - 17 mmol/L [facility] AST [Catalytic activity/Vol] 33 U/L NINF - 40 U/L [facility] Bilirubin [Mass/Vol] 0.5 mg/dL 0.3 - 1.2 mg/dL [facility] Calcium [Mass/Vol] 9.6 mg/dL 8.6 - 10. 4 mg/dL [facility] Chloride [Moles/Vol] 95 mmol/L Low 98 - 107 mmol/L [facility] CO2 [Moles/Vol] 26 mmol/L 20 - 31 mmol/L [facility] Creatinine [Mass/Vol] 0.8 mg/dL 0.7 - 1.2 mg/dL [facility] GFR/1.73 sq M.predicted MDRD (S/P/Bld) [Vol rate/Area] - PINF [facility] Comment on above: These results are not [...] 332 mg/dL High 70 - 99 mg/dL [facility] Interpretation and review of laboratory results Abnormal [facility] Potassium [Moles/Vol] 5.0 mmol/L 3.7 - 5.3 mmol/L [facility] Protein [Mass/Vol] 6.9 g/dL 6.4 - 8.3 g/dL [facility] Sodium [Moles/Vol] 131 mmol/L Low 135 - 144 mmol/L [facility] Urea nitrogen [Mass/Vol] 14 mg/dL 8 - 23 mg/dL [facility] Urea nitrogen/Creatinine [Mass ratio] 18 mg/mg 9 - 20 [facility] MRSA, DNA, Nasalon 3 Specimen Description .NASAL SWAB Normal [facility] Comment on above: Performed By: #### C DP, CP, UMICAO, PT, PTT, UAX #### [facility] [address] [place] [address] [place] [address] Assembler Cards And Announcements: Oliver Cabrera MD #### MRSANO #### [address] [address] Assembler Cards And Announcements: Glenn Noyola MD [facility] [address] [place] [address] [place] [address] Assembler Cards And Announcements: Oliver Cabrera MD Microscopic Urinalysison Bacteria LM Ql (Urine sed) TRACE Abnormal None [facility] Epithelial cells LM.HPF (Urine sed) [#/Area] 0 TO 2 [facility] Interpretation and review of laboratory results Abnormal [facility] Mucus Ql (Urine sed) TRACE Abnormal None [facility] RBC LM.HPF (Urine sed) [#/Area] 0 TO 2 [facility] WBC LM.HPF (Urine sed) [#/Area] 0 TO 2 [facility] PTon 06-10-2023 INR Coag (PPP) [Relative time] 10.1 {INR} Critically high [facility] Comment on above: Result Comment: Therapeutic Range: Moderate Anticoagulant Intensity: INR = 2.0-3.0 High Anticoagulant Intensity: INR = 2.5-3.5 Performed By: #### C DP, CP, UMICAO, PT, PTT, UAX #### [address] [place], [place] 9307483 [employer]er Cards And Announcements: Oliver Cabrera MD #### MRSANO #### [address] [place], [place] [phone] Assembler Cards And Announcements: Glenn Noyola MD [address] [place] [phone] Assembler Cards And Announcements: Oliver Cabrera MD PT Coag (PPP) [Time] 80.7 s High 11.9-14.8 [facility] Comment on above: Performed By: #### C DP, CP, UMICAO, PT, PTT, UAX #### [address] [place], [place] [id number] Assembler Cards And Announcements: Oliver Cabrera MD #### MRSANO #### [address] [id number] Assembler Cards And Announcements: Glenn Noyola MD [address] [place], [facility] Assembler Cards And Announcements: Oliver Cabrera MD Protime-INRon 06-10-2023 INR Coag (PPP) [Relative time] 10.1 {INR} Critically high [facility] Comment on above: Therapeutic Range: Moderate Anticoagulant Intensity: INR = 2.0-3.0 High Anticoagulant Intensity: INR = 2.5-3.5 Interpretation and review of laboratory results Abnormal [facility] PT Coag (PPP) [Time] 80.7 s High [facility] TYPE AND SCREENon 06-10-2023 ABO and Rh group Nom (Bld) Blood group A Rh(D) positive [facility] Arm Band Number [id number] [facility] Blood Bank Sample Expiration 06/13/2023,2359 [facility] Blood group antibodies identified Nom Negative [facility] Type + Screenon 06-10-2023 Type + Screen Sample Expiration 06/13/2023,2359 Arm Band Number [id number] ABO/Rh(D) A POSITIVE Antibody Screen NEGATIVE Normal [facility] Comment on above: Performed By: #### H H, BMP #### [address] [place] [address] Assembler Cards And Announcements: Oliver Cabrera MD UA w/Reflex Cultureon 2022 Bilirubin, SemiQt,Ur Negative Normal NEG [facility] Comment on above: Performed By: #### C DP, CP, UMICAO, PT, PTT, UAX #### [address] [place], [place] [id number] Assembler Cards And Announcements: Oliver Cabrera MD #### MRSANO #### [address] [id number] Assembler Cards And Announcements: Glenn Noyola MD [address] [place] [id number] Assembler Cards And Announcements: Oliver Cabrera MD Blood, Urine Negative Normal [facility] Comment on above: Performed By: #### C DP, CP, UMICAO, PT, PTT, UAX #### [address] [place] [address] Assembler Cards And Announcements: Oliver Cabrera MD #### MRSANO #### [address] [address] Assembler Cards And Announcements: Glenn Noyola MD [address] [place] [address] Assembler Cards And Announcements: Oliver Cabrera MD Clarity (U) Clear Normal CLEAR [facility] Comment on above: Performed By: #### C DP, CP, UMICAO, PT, PTT, UAX #### [address] [place] [address] Assembler Cards And Announcements: Oliver Cabrera MD #### MRSANO #### [facility] [address] [place] [address] Assembler Cards And Announcements: Glenn Noyola MD [address] [place] [address] Assembler Cards And Announcements: Oliver Cabrera MD Color (U) Yellow Normal YEL [facility] Comment on above: Performed By: #### C DP, CP, UMICAO, PT, PTT, UAX #### [address] [place] [address] Assembler Cards And Announcements: Oliver Cabrera MD #### MRSANO #### [facility] [address] [place] [address] Assembler Cards And Announcements: Glenn Noyola MD [address] [place] [address] Assembler Cards And Announcements: Oliver Cabrera MD Glucose Ql (U) 2+ mg/dL Abnormal NEG [facility] Comment on above: Performed By: #### C DP, CP, UMICAO, PT, PTT, UAX #### [facility] [address] [place] [address] [place] [address] Assembler Cards And Announcements: Oliver Cabrera MD #### MRSANO #### [facility] [address] [place] [address] Assembler Cards And Announcements: Glenn Noyola MD [address] [place] [address] Assembler Cards And Announcements: Oliver Cabrera MD Ketones Ql (U) Negative Normal NEG [facility] Comment on above: Performed By: #### C DP, CP, UMICAO, PT, PTT, UAX #### [address] [place] [address] Assembler Cards And Announcements: Oliver Cabrera MD #### MRSANO #### [address] [address] Assembler Cards And Announcements: Glenn Noyola MD [address] [place] [address] Assembler Cards And Announcements: Oliver Cabrera MD Leukocyte esterase Test strip Ql (U) Negative Normal NEG [facility] Comment on above: Performed By: #### C DP, CP, UMICAO, PT, PTT, UAX #### [address] [place] [address] Assembler Cards And Announcements: Oliver Cabrera MD #### MRSANO #### [address] [address] Assembler Cards And Announcements: Glenn Noyola MD [address] [place] [address] Assembler Cards And Announcements: Oliver Cabrera MD Nitrite,Ur Negative Normal NEG [facility] Comment on above: Performed By: #### C DP, CP, UMICAO, PT, PTT, UAX #### [address] [place] [address] Assembler Cards And Announcements: Oliver Cabrera MD #### MRSANO #### [address] [address] Assembler Cards And Announcements: Glenn Noyloa MD [address] [place] [address] Assembler Cards And Announcements: Oliver Cabrera MD PH,Ur 6.5 Normal 5.0-9.0 [facility] Comment on above: Performed By: #### C DP, CP, UMICAO, PT, PTT, UAX #### [address] [place] [address] Assembler Cards And Announcements: Oliver Cabrera MD #### MRSANO #### [place] [address] [place] [address] Assembler Cards And Announcements: Glenn Noyola MD [address] [place] [address] Assembler Cards And Announcements: Oliver Cabrera MD Protein Ql (U) Negative Normal NEG [facility] Comment on above: Performed By: #### C DP, CP, UMICAO, PT, PTT, UAX #### [address] [place] [address] Assembler Cards And Announcements: Oliver Cabrera MD #### MRSANO #### [address] [address] Assembler Cards And Announcements: Glenn Noyola MD [address] [place] [address] Assembler Cards And Announcements: Oliver Cabrera MD Spec. [place],Ur <1.005 Low 1.010-1.020 [facility] Comment on above: Performed By: #### C DP, CP, UMICAO, PT, PTT, UAX #### [address] [place] [address] Assembler Cards And Announcements: Oliver Cabrera MD #### MRSANO #### [address] [address] Assembler Cards And Announcements: Glenn Noyola MD [address] [place] [address] Assembler Cards And Announcements: Oliver Cabrera MD Urobilinogen,Ur Normal Normal 0.0-1.0 [facility] Comment on above: Performed By: #### C DP, CP, UMICAO, PT, PTT, UAX #### [address] [place] [address] Assembler Cards And Announcements: Oliver Cabrera MD #### MRSANO #### [facility] [address] [place], [place] 1024[address] Assembler Cards And Announcements: Glenn Noyola MD [facility] [address] [place] [address] [place] [address] Assembler Cards And Announcements: Oliver Cabrera MD Urinalysis with Reflex to Cu ltureon 06-10-2023 Bilirubin Ql (U) Negative NEGATIVE [facility] Clarity (U) Clear Clear [facility] Color (U) Yellow Yellow [facility] Glucose Test strip (U) [Mass/Vol] 2+ Abnormal NEGATIVE mg/dL [facility] Hemoglobin Auto test strip Ql (U) Negative NEGATIVE [facility] Interpretation and review of laboratory results Abnormal [facility] Ketones (U) [Mass/Vol] Negative NEGATIVE mg/dL [facility] Leukocyte esterase Test strip Ql (U) Negative NEGATIVE [facility] Nitrite Ql (U) Negative NEGATIVE [facility] pH (U) 6.5 [pH] 5.0 - 9.0 [facility] Protein (U) [Mass/Vol] Negative NEGATIVE mg/dL [facility] Specific gravity (U) [Rel density] Low 1.010 - 1.020 [facility] Urobilinogen Qn (U) Normal 0.0 - 1. 0 EU/dL [facility] Urinalysis,Microon 3 Bacteria TRACE Abnormal NONE [facility] Comment on above: Performed By: #### C DP, CP, UMICAO, PT, PTT, UAX #### [facility] [address] [place] [address] [place] [address] Assembler Cards And Announcements: Oliver Cabrera MD #### MRSANO #### [facility] [address] [place], [place] [id number] Assembler Cards And Announcements: Glenn Noyola MD [facility] [address] [place] [address] [place] [address] Assembler Cards And Announcements: Oliver Cabrera MD Epithelial cells LM Ql (Urine sed) 0 TO 2 Normal 0-5 [facility] Comment on above: Performed By: #### C DP, CP, UMICAO, PT, PTT, UAX #### [facility] [address] [place] [address] [place] [address] Assembler Cards And Announcements: Oliver Cabrera MD #### MRSANO #### [address] [address] Assembler Cards And Announcements: Glenn Noyola MD [address] [place] [address] Assembler Cards And Announcements: Oliver Cabrera MD Mucus Strands TRACE Abnormal NONE [facility] Comment on above: Performed By: #### C DP, CP, UMICAO, PT, PTT, UAX #### [address] [place] [id number] Assembler Cards And Announcements: Oliver Cabrera MD #### MRSANO #### [address] [address] Assembler Cards And Announcements: Glenn Noyola MD [address] [place] [address] Assembler Cards And Announcements: Oliver Cabrera MD Urine RBC's 0 TO 2 Normal 0-2 [facility] Comment on above: Performed By: #### C DP, CP, UMICAO, PT, PTT, UAX #### [address] [place] [address] Assembler Cards And Announcements: Oliver Cabrera MD #### MRSANO #### [address] [address] Assembler Cards And Announcements: Glenn Noyola MD [address] [place], [place] [address] Assembler Cards And Announcements: Oliver Cabrera MD Urine WBC's 0 TO 2 Normal 0-5 [facility] Comment on above: Performed By: #### C DP, CP, UMICAO, PT, PTT, UAX #### [facility] [address] [place] [address] Assembler Cards And Announcements: Oliver Cabrera MD #### MRSANO #### [place] [address] [place], [place] [id number] Assembler Cards And Announcements: Glenn Noyola MD [facility] [address] [place] [address] Assembler Cards And Announcements: Oliver Cabrera MD XR CHEST (2 VW)on 06-10-2023 Radiology Study observation (narrative) [facility] CARDIAC STRESS/REST INJE CTIONon 05-25-[address] [facility] CARDIAC STRESS/REST INJECTION Patient Name: JOIE LU STUDY: MYOCARDIAL PERFUSION STRESS TEST WITH LEXISCAN Performing facility: [facility], [address] [place] [address], [address], [place] [address] [facility] Provider: Mily Marlow MD PCP: Dr. Alvarado Supervising provider: Keira Boles MD, [facility] INDICATION: Abnormal EKG; HTN Pre-operative risk assessment for Knee scheduled at [facility] on [facility]. HISTORY: Gender: M; Age: 68 y/o ; Height: 0 cm; Weight: 123.6240704 kg. High Cholesterol; Abnormal EKG; Diabetes; HTN; Quit smoking 40 years ago. Cardiac catheterization on 2007 per patient. COMPARISON: No comparison. ACCESSION NUMBER(S): [id number]; [id number]; [id number] ORDERING CLINICIAN: MILY MARLOW TECHNIQUE: TWO DAY [...] Electronically signed by: GISELE HWANG MD Normal [facility] No Panel Informationon 05-25 Normal -[place] [address] DO Work Phone: CT chest w conon 04-14-2023 CT chest w [facility] [place] [address] [place] [address] CT Scan Report Signed Patient: Joie Lu MR#: [id number] : 1955 Acct:[id number] Age/Sex: 67 / M ADM Date: 04/14/23 Loc: CT Room: Type: [facility] Attending Dr: Agustin Nj MD Copies to: [...] adenopathy. No pneumoperitoneum. No mediastinal hematoma. PULMONARY INA: No hilar mass or adenopathy is seen. [...] Alexander Cleveland M.D.04/14/2023 3:15 PM Dictation Location: [place] [address] Transcribed By: [facility] 04/14/23 1515 Dictated By: Alexander Cleveland DO 04/14/23 1504 Signed By: 04/14/23 1515 Normal [facility] Creatinine (Bld) [Mass/Vol]O rdered By: Agustin Nj on 04-14-2023 Creatinine [Mass/Vol] 0.7 mg/dL 0.6-1.3 [facility] Comment on above: ER/ESD physician is notified/shown [...] HOURS NEE (more content not included)... Normal [facility] XR Chest 2 Viewson 3 XR Chest [...] mGy = 0 DAP = 0 Normal [facility] ABO/Rh Retypeon 03-27-2023 ABO/Rh Retype Interp Positive Invalid Interpretation Code [facility] Comment on above: Performed By: #### 1 [id number] #### [facility] [address] [place] [address] BUNon 03-27-2023 Urea nitrogen [Mass/Vol] 16 mg/dL Normal 5-21 [facility] Comment on above: Performed By: #### 2 632499, 1965385, 6798994, 26498687, 3667913, 2554115 #### [facility] [address] [place] [address] CBC w/Indiceson 03-27-2023 Erythrocyte distribution width (RBC) [Ratio] 12.5 % Normal 10.9-14.2 [facility] Comment on above: Performed By: #### 2 313575, 0514116, 9405987, 79561845, 2160751, 9059382 #### [facility] [address] [place] [address] Hematocrit (Bld) [Volume fraction] 41.1 % Normal 37.7-49.0 [facility] Comment on above: Performed By: #### 2 658335, 7313470, 7728846, 37396588, 0686602, 4964217 #### [facility] [address] [place] [address] Hemoglobin (Bld) [Mass/Vol] 13.9 g/dL Normal 13.5-17.5 [facility] Comment on above: Performed By: #### 2 568977, 6697221, 1528268, 96884556, 3154818, 9293143 #### [facility] [address] [place], [place] [address] MCH (RBC) [Entitic mass] 29.9 pg Normal 27.0-34.0 [facility] Comment on above: Performed By: #### 2 600772, 9250846, 7003511, 40623931, 2581448, 9320376 #### [facility] [address] [place], [place] [address] MCHC (RBC) [Mass/Vol] 33.8 g/dL Normal 31.4-36.0 [facility] Comment on above: Performed By: #### 2 940912, 8710026, 9182548, 60791824, 3404253, 3852645 #### [facility] [address] [place], [place] [address] MCV (RBC) [Entitic vol] 88.5 fL Normal 80.0-100.0 [facility] Comment on above: Performed By: #### 2 445129, 1127557, 7629379, 41820122, 5813966, 6547142 #### [facility] [address] [place] [address] Platelet mean volume (Bld) [Entitic vol] 7.6 fL Normal 6.4-10.8 [facility] Comment on above: Performed By: #### 2 681891, 6319677, 3937991, 39368526, 0427876, 7516757 #### [facility] [address] [place] [address] Platelets (Bld) [#/Vol] 168.0 E9/L Normal 150.0-500.0 [facility] Comment on above: Performed By: #### 2 300541, 2401293, 3784222, 67196033, 1537204, 5031783 #### [facility] [address] [place], [place] [address] RBC (Bld) [#/Vol] 4.6 E12/L Normal 4.3-5.9 [facility] Comment on above: Performed By: #### 2 817023, 1871671, 6351362, 00206242, 5545587, 5898640 #### [facility] [address] [place] [address] WBC corrected for nucl RBC Auto (Bld) [#/Vol] 8.8 E9/L Normal 4.0-11.0 [facility] Comment on above: Performed By: #### 2 023781, 1395974, 4048411, 19280773, 5149090, 9573077 #### [facility] [address] [place] [address] Consent for Treatmenton Consent for Treatment [id number] Normal [facility] Creatinineon 03-27-2023 Creatinine [Mass/Vol] 1.0 mg/dL Normal 0.5-1.3 [facility] Comment on above: Performed By: #### 2 546961, 6288778, 4793767, 44213089, 0880502, 2357737 #### [facility] [address] [place] [address] Glucoseon 03-27-2023 Glucose [Mass/Vol] 332 mg/dL High 55-199 [facility] Comment on above: Performed By: #### 2 160058, 7261373, 9144597, 97112390, 0384415, 5446364 #### [facility] [address] [place] [address] Lyteson 03-27-2023 Anion gap [Moles/Vol] 13 mmol/L Normal 6-16 [facility] Comment on above: Performed By: #### 2 745459, 5834274, 2532360, 08376608, 4123888, 7574138 #### [facility] [address] [place] [address] Chloride [Moles/Vol] 97 mmol/L Low 101-111 [facility] Comment on above: Performed By: #### 2 428938, 8579208, 4835950, 04696102, 5633593, 1963571 #### [facility] [address] [place] [address] CO2 [Moles/Vol] 24 mmol/L Normal 21-31 [facility] Comment on above: Performed By: #### 2 871230, 8062239, 9181222, 16562563, 3657825, 6908735 #### [facility] [address] [place] [address] Potassium [Moles/Vol] 4.3 mmol/L Normal 3.5-5.3 [facility] Comment on above: Performed By: #### 2 474609, 8122805, 0043449, 13038869, 9187589, 7870303 #### [facility] [address] [place] [address] Sodium [Moles/Vol] 130 mmol/L Low 135-145 [facility] Comment on above: Performed By: #### 2 978096, 0990818, 9730084, 29501359, 8986480, 5672631 #### [facility] [address] [place] [address] UA With Cult Reflexon 2022 Bilirubin Ql (U) Negative Normal Negative [facility] Comment on above: Performed By: #### 1 7752379 #### [facility] [address] [place] [address] Clarity (U) CLEAR Normal Clear [facility] Comment on above: Performed By: #### 1 7574134 #### [facility] [address] [place] [address] Color (U) YELLOW Normal Yellow [facility] Comment on above: Performed By: #### 1 4654062 #### [facility] [address] [place] [address] Epithelial cells.squamous LM.HPF (Urine sed) [#/Area] 0-2 Normal 0-2 [facility] Comment on above: Performed By: #### 1 8039894 #### [facility] [address] [place] [address] Glucose Test strip (U) [Mass/Vol] 2+ Abnormal Negative [facility] Comment on above: Performed By: #### 1 0670697 #### [facility] [address] [place] [address] Hemoglobin Ql (U) Negative Normal Negative [facility] Comment on above: Performed By: #### 1 0982108 #### [facility] [address] [place] [address] Ketones (U) [Mass/Vol] Negative Normal Negative [facility] Comment on above: Performed By: #### 1 6478068 #### [facility] [address] [place] [address] [place].plasma/Lith ium.RBC (Bld) [Mass ratio] 0-3 Normal 0-3 [facility] Comment on above: Performed By: #### 1 9903645 #### [facility] [address] [place] [address] Nitrite Ql (U) Negative Normal Negative [facility] Comment on above: Performed By: #### 1 9710820 #### [facility] [address] [place] [address] pH (U) 6.0 [pH] Invalid Interpretation Code 5.0-9.0 [facility] Comment on above: Performed By: #### 1 0359702 #### [facility] [address] [place] [address] Protein (U) [Mass/Vol] Negative Normal Negative [facility] Comment on above: Performed By: #### 1 6963651 #### [facility] [address] [place] [address] Specific gravity (U) [Rel density] 1.015 Invalid Interpretation Code 1.005-1.030 [facility] Comment on above: Performed By: #### 1 4381168 #### [facility] [address] [place] [address] Type of Urine collection method Clean Catch Normal [facility] Comment on above: Performed By: #### 1 1970684 #### [facility] [address] [place] [address] Urobilinogen Qn (U) 0.2 {Johanne'U}/dL Normal 0.0-1.0 [facility] Comment on above: Performed By: #### 1 3910545 #### [facility] [address] [place] [address] WBC Auto Ql (U) Negative Normal Negative [facility] Comment on above: Performed By: #### 1 0606760 #### [facility] [address] [place] [address] WBC LM.HPF (Urine sed) [#/Area] 0-5 Normal 0-5 [facility] Comment on above: Performed By: #### 1 9627396 #### [facility] [address] [place] [address] eGFRon 03-27-2023 GFR/1.73 sq M.predicted among non-blacks MDRD (S/P/Bld) [Vol rate/Area] 83 mL/min/1.73 m2 Normal >=59 [facility] Comment on above: Order Comment: Order added by Discern Expert. Result Comment: Lubrication Supervisor helder kidney disease could be indicated at eGFR's of less than 60 mL/min/1.73m2. Kidney failure is indicated at less than 15 mL/min/1.73m2. Performed By: #### 2 773628, 8700778, 0213191, 29162442, 8492274, 3613256 #### [facility] [address] [place] [address] XR KNEE RT 4V or >on 023 [...] by: ANSELMO PIERRE Date: 2023-02-15 16:49 Normal [facility] XR LSPINE 2_3 VIEWSon 2022 XR LSPINE [...] by: CASSY MARTIN Date: 2023-01-30 19:57 Normal [facility] XR TIB_FIB LT 2Von XR TIB_FIB LT [...] by: CASSY MARTIN Date: 2023-01-30 19:56 Normal [facility] CNOVon 01-27-2023 CNOV Office Visit (OTOLMN ) JOIE LU JR ([id number]) 1955 M Date Time Provider Department 01/27/23 [...] for patient. (more content not included)... Normal [facility] CBC AUTO DIFFon 12-22-2022 BASO # 0.1 103/ul Normal 0.0-0.1 [facility] Comment on above: Performed By: #### C BC ####[facility] [address] [place], [place] [address]DrRenee Zhang Basophils/100 WBC (Bld) 0.6 % Normal 0.2-2.0 [facility] Comment on above: Performed By: #### C BC ####[facility] [address] [place], [place] [address]DrRenee Zhang EO # 0.6 103/ul Normal 0.0-0.7 [facility] Comment on above: Performed By: #### C BC ####[facility] [address] [place], [place] [address]DrRenee Zhang Eosinophils/100 WBC (Bld) 7.4 % Critically high 0.9-7.0 [facility] Comment on above: Performed By: #### C BC ####[facility] [address] [place], [place] [address]DrRenee Zhang Erythrocyte distribution width (RBC) [Ratio] 12.4 % Normal 11.0-15.0 [facility] Comment on above: Performed By: #### C BC ####[facility] [address] [place], [place] [address]DrRenee Zhang Hematocrit (Bld) [Volume fraction] 44.2 % Normal 42.0-54.0 [facility] Comment on above: Performed By: #### C BC ####[facility] [address] [place], [place] [address]Dr. Heidi Zhang Hemoglobin (Bld) [Mass/Vol] 15.4 g/dL Normal 14.0-18.0 [facility] Comment on above: Performed By: #### C BC ####[facility] [address] [place] [address]Dr. Heidi Zhang IG # 0.04 10e3/ul Critically high 0.00-0.03 [facility] Comment on above: Performed By: #### C BC ####[facility] [address] [place], [place] [address]Dr. Heidi Zhang IG % 0.5 % Normal 0.0-0.5 [facility] Comment on above: Performed By: #### C BC ####[facility] [address] [place], [place] [address]Dr. Heidi Zhang LYMPH # 1.4 103/ul Normal 1.2-3.8 [facility] Comment on above: Performed By: #### C BC ####[facility] [address] [place], [place] [address]Dr. Heidi Zhang Lymphocytes/100 WBC (Bld) 18.4 % Critically low 20.5-60.0 [facility] Comment on above: Performed By: #### C BC ####[facility] [address] [place], [place] [address]Dr. Heidi Zhang MANUAL DIFF REQ NO Normal [facility] Comment on above: Performed By: #### C BC ####[facility] [address] [place], [place] [address]Dr. Heidi Zhang MCH (RBC) [Entitic mass] 31.1 pg Normal 25.9-34.0 [facility] Comment on above: Performed By: #### C BC ####[facility] [address] [place], [place] [address]Dr. Heidi Zhang MCHC (RBC) [Mass/Vol] 34.8 g/dL Normal 29.9-35.2 [facility] Comment on above: Performed By: #### C BC ####[facility] [address] [place], [place] [address]Dr. Heidi Zhang MCV (RBC) [Entitic vol] 89.3 fL Normal 80.0-94.0 [facility] Comment on above: Performed By: #### C BC ####[facility] [address] [place] [address]DrRenee Zhang MONO # 0.6 103/ul Normal 0.3-0.8 [facility] Comment on above: Performed By: #### C BC ####[facility] [address] [place], [place] [address]DrRenee Heidi Zhang Monocytes/100 WBC (Bld) 7.1 % Normal 1.7-12.0 [facility] Comment on above: Performed By: #### C BC ####[facility] [address] [place], [place] [address]DrRenee Heidi Zhang NEUT # 5.1 103/ul Normal 1.4-6.5 [facility] Comment on above: Performed By: #### C BC ####[facility] [address] [place], [place] [address]Dr. Heidi Zhang Neutrophils/100 WBC (Bld) 66.0 % Normal 43.0-75.0 [facility] Comment on above: Performed By: #### C BC ####[facility] [address] [place], [place] [address]DrRenee Heidi Zhang Platelet mean volume (Bld) [Entitic vol] 9.0 fL Critically low 9.5-13.5 [facility] Comment on above: Performed By: #### C BC ####[facility] [address] [place], [place] [address]DrRenee Heidi Vicente PLT 133 103/ul Critically low 150-450 [facility] [facility] Comment on above: Performed By: #### C BC ####[facility] [address] [place] [id number] Heidi Vicente RBC 4.95 106/ul Normal 4.70-6.10 [facility] Comment on above: Performed By: #### C BC ####[facility] [address] [place], [place] [address]Dr. Heidi Zhang WBC 7.7 103/ul Normal 4.0-11.0 [facility] Comment on above: Performed By: #### C BC ####[facility] [address] [place], [place] [address]JhDr. Heidi Zhang GLYCOHEMOGLOBIN A1Con 2022 ADA RECOMMENDATION SEE BELOW Normal [facility] Comment on above: Result Comment: ADA RECOMMENDED LIMIT 4.0 - 6.0 ADA THERAPEUTIC TARGET < 7.0 ACTION SUGGESTED > 7.0 Performed By: #### A 1C #### [facility] [address] [place], [place] [address] Dr. Heidi Zhang Glucose [Mass/Vol] 197 mg/dL Normal [facility] Comment on above: Performed By: #### A 1C #### [facility] [address] [place] [address] [address] Heidi Zhang HbA1c (Bld) [Mass fraction] 8.5 % Critically high 4.5-6.2 [facility] Comment on above: Performed By: #### A 1C #### [facility] [address] [id number] Heidi Zhang LIPID PROFILEon 12-22-2022 CHOL-HDL RATIO NORM SEE BELOW Normal [facility] Comment on above: Result Comment: 3.3 - 4.4 LOW RISK 4.4 - 7.1 AVERAGE RISK 7.1 - 11.0 MODERATE RISK >11.0 HIGH RISK Performed By: #### L IPID, CMP ####[facility] [address] [place] [id number]. Heidi Zhang Cholesterol [Mass/Vol] 152 mg/dL Normal <=200 [facility] Comment on above: Performed By: #### L IPID, CMP ####[facility] [address] [place] [id number]. Heidi Zhang Cholesterol in HDL [Mass/Vol] 43 mg/dL Normal 40-60 [facility] Comment on above: Performed By: #### L IPID, CMP ####[facility] [address] [place] [id number]. Heidi Zhang Cholesterol in LDL [Mass/Vol] 75.4 mg/dL Normal [facility] Comment on above: Performed By: #### L IPID, CMP ####[facility] [address] [place] [id number]. Heidi Zhang Cholesterol.total/C holesterol in HDL [Mass ratio] 3.5 {ratio} Normal [facility] Comment on above: Performed By: #### L IPID, CMP ####[facility] [address] [place] [id number] Zhang HDL NORMAL > or = 60 mg/dl - LO W CARDIOVASCULAR RISK <40 mg/dl - HIGH CARDIOVASCULAR RISK Normal [facility] Comment on above: Performed By: #### L IPID, CMP ####[facility] [address] [place] [address]Dr. Heidi Zhang LDL CALC NORMAL SEE BELOW Normal [facility] Comment on above: Result Comment: <100 mg/dl OPTIMAL 100 - 129 mg/dl NEAR OR ABOVE OPTIMAL 130 - 159 mg/dl BORDERLINE HIGH 160 - 189 mg/dl HIGH >190 mg/dl VERY HIGH Performed By: #### L IPID, CMP ####[facility] [address] [place] [id number]. Heidi Zhang Triglyceride [Mass/Vol] 168 mg/dL Critically high <=150 [facility] Comment on above: Performed By: #### L IPID, CMP ####[facility] [address] [place] [id number]. Heidi Zhang VLDL CALC 33.6 mg/dL Normal [facility] Comment on above: Performed By: #### L IPID, CMP ####[facility] [address] [place] [id number]. Heidi Zhang PROF 14(COMP METB)on 023 Albumin [Mass/Vol] 4.0 g/dL Normal 3.4-5.0 [facility] Comment on above: Performed By: #### L IPID, CMP #### [facility] [address] [place], [place] [address] Dr. Heidi Zhang Albumin/Globulin [Mass ratio] 1.4 {ratio} Normal [facility] Comment on above: Performed By: #### L IPID, CMP #### [facility] [address] [place] [address] [address] Heidi Zhang ALP [Catalytic activity/Vol] 75 U/L Normal 46-116 [facility] Comment on above: Performed By: #### L IPID, CMP #### [facility] [address] [place] [address] [address] Heidi Zhang ALT [Catalytic activity/Vol] 29 U/L Normal 16-63 [facility] Comment on above: Performed By: #### L IPID, CMP #### [facility] [address] [place] [address] [address] Heidi Zhang Anion gap [Moles/Vol] 12.1 mmol/L Normal [facility] Comment on above: Performed By: #### L IPID, CMP #### [facility] [address] [place] [address] [address] Heidi Zhang AST [Catalytic activity/Vol] 28 U/L Normal 15-37 [facility] Comment on above: Performed By: #### L IPID, CMP #### [facility] [address] [place] [address] [address] Heidi Zhang Bilirubin [Mass/Vol] 0.4 mg/dL Normal 0.2-1.0 [facility] Comment on above: Performed By: #### L IPID, CMP #### [facility] [address] [place] [address] [address] Heidi Zhang Calcium [Mass/Vol] 9.4 mg/dL Normal 8.5-10.1 [facility] Comment on above: Performed By: #### L IPID, CMP #### [facility] [address] [place] [address] [address] Heidi Zhang Chloride [Moles/Vol] 99 mmol/L Normal 98-107 [facility] Comment on above: Performed By: #### L IPID, CMP #### [facility] [address] [place] [address] [address] Heidi Zhang CO2 [Moles/Vol] 28.1 mmol/L Normal 21.0-32.0 [facility] Comment on above: Performed By: #### L IPID, CMP #### [facility] [address] [place] [address] [address] Heidi Zhagn Creatinine [Mass/Vol] 1.09 mg/dL Normal 0.70-1.30 [facility] Comment on above: Performed By: #### L IPID, CMP #### [facility] [address] [place] [address] [address] Heidi Zhang EGFR-AF [place] >60 Normal >=60 [facility] Comment on above: Performed By: #### L IPID, CMP #### [facility] [address] [place] [address] [address] Heidi Zhang EGFR-NON AF [place]IZ[place] >60 Normal >=60 [facility] Comment on above: Performed By: #### L IPID, CMP #### [facility] [address] [place] [address] [address] Heidi Zhang Globulin (S) [Mass/Vol] 2.9 g/dL Normal [facility] Comment on above: Performed By: #### L IPID, CMP #### [facility] [address] [place] [address] [address] Heidi Zhang Glucose [Mass/Vol] 428 mg/dL Critically high 74-106 T [facility] Comment on above: Performed By: #### L IPID, CMP #### [facility] [address] [place] [address] [address] Heidi Zhang Potassium [Moles/Vol] 5.2 mmol/L Critically high 3.5-5.1 [facility] Comment on above: Performed By: #### L IPID, CMP #### [facility] [address] [place] [address] [address] Heidi Zhang Protein [Mass/Vol] 6.9 g/dL Normal 6.4-8.2 [facility] Comment on above: Performed By: #### L IPID, CMP #### [facility] [address] [place] [address] [address] Heidi Zhang Sodium [Moles/Vol] 134 mmol/L Critically low 136-145 [facility] Comment on above: Performed By: #### L IPID, CMP #### [facility] [address] [place] [id number] Heidi Zhang Urea nitrogen [Mass/Vol] 11.0 mg/dL Normal 7.0-18.0 [facility] Comment on above: Performed By: #### L IPID, CMP #### [facility] [address] [place] [phone] Heidi Zhang Urea nitrogen/Creatinine [Mass ratio] 10.1 mg/mg Normal [facility] Comment on above: Performed By: #### L IPID, CMP #### [facility] [address] [place] [phone] Heidi Schofield 11-06-2022 CNPN Telephone (OTOLLN) JOIE LU JR ([id number]) 1955 M Date Time Provider Department 11/06/22 [...] gets them frequently. Please advise. DDM in [facility]- [phone] Gemini Snyder MA 11/07/2022 9:40 AM Signed [...] Fully Assessed Reason for Visit: Patient Question [2417] Orders [681] Prescriptions as of 11/10/2022 - [...] [J44.9] 01 (more content not included)... Normal [facility] CNOVon 10-31-2022 CNOV Office Visit (OTOLLN ) JOIE LU JR ([id number]) 1955 M Date Time Provider Department 10/31/22 10:15 AM SAIMA MACDONALD During your visit today, we recorded the following information about you: Temperature 98.2 degrees Saima Macdonald MD 10/31/2022 5:36 PM Signed SECTION OF RHINOLOGY, SINUS AND SKULL BASE SURGERY Head and Neck [place], [facility] NOTE HPI: Patient is a 67 year old male presenting for evaluation. He reports monthly sinus and ear infection. He has to put earplugs in his ear when taking a shower because when water gets in the ear, the infection starts. He c/o ear pressure He c/o congestion, Green mucous when blowing nose, pressure, and facial pressure. He has not seen an publication distributor. Sinus issues has been going on since [...] daily. Levothyro (more content not included)... Normal [facility] XR CHEST 2 Von 10-13-2022 XR [...] by: JONAH GARCIA Date: 2022-10-13 16:09 [facility] ([facility]OLMN ) JOIE LU JR ([id number]) 1955 M Date Time Provider Department 08/19/22 [...] right e (more content not included)... Normal [facility] PROF CHEM 8 (BAS METB)on Anion gap [Moles/Vol] 12.5 mmol/L Normal [facility] Comment on above: Performed By: #### B MP #### [facility] [address] [place], [place] [address] Dr. Heidi Zhang Calcium [Mass/Vol] 9.1 mg/dL Normal 8.5-10.1 [facility] Comment on above: Performed By: #### B MP #### [facility] [address] [place], [place] [address] Dr. Heidi Zhang Chloride [Moles/Vol] 99 mmol/L Normal 98-107 [facility] Comment on above: Performed By: #### B MP #### [facility] [address] [place] [address] [address] Hedii Zhang CO2 [Moles/Vol] 26.1 mmol/L Normal 21.0-32.0 [facility] Comment on above: Performed By: #### B MP #### [facility] [address] [place] [address] Dr. Heidi Zhang Creatinine [Mass/Vol] 1.00 mg/dL Normal 0.70-1.30 [facility] Comment on above: Performed By: #### B MP #### [facility] [address] [place] [address] Dr. Heidi Zhang EGFR-AF [place] >60 Normal >=60 [facility] Comment on above: Performed By: #### B MP #### [facility] [address] [place] [address] Dr. Heidi Zhang EGFR-NON AF [place]IZ[place] >60 Normal >=60 [facility] Comment on above: Performed By: #### B MP #### [facility] [address] [place] [address] [address] Heidi Zhang Glucose [Mass/Vol] 285 mg/dL Critically high 74-106 T [facility] Comment on above: Performed By: #### B MP #### [facility] [address] [place] [address] Dr. Heidi Zhang Potassium [Moles/Vol] 4.6 mmol/L Normal 3.5-5.1 [facility] Comment on above: Performed By: #### B MP #### [facility] [address] [place] [address] [address] Heidi Zhang Sodium [Moles/Vol] 133 mmol/L Critically low 136-145 [facility] Comment on above: Performed By: #### B MP #### [facility] [address] [place] [address] Dr. Heidi Zhang Urea nitrogen [Mass/Vol] 16.0 mg/dL Normal 7.0-18.0 [facility] Comment on above: Performed By: #### B MP #### [facility] [address] [place] [address] Dr. Heidi Zhang Urea nitrogen/Creatinine [Mass ratio] 16.0 mg/mg Normal [facility] Comment on above: Performed By: #### B MP #### [facility] [address] [place] [address] [address] Heidi Zhang CBC AUTO DIFFon 08-11-2022 BASO # 0.1 103/ul Normal 0.0-0.1 [facility] Comment on above: Performed By: #### C BC ####[facility] [address] [place] [address]DrRenee Zhang Basophils/100 WBC (Bld) 0.6 % Normal 0.2-2.0 [facility] Comment on above: Performed By: #### C BC ####[facility] [address] [place], [place] [address]Dr. Heidi Zhang EO # 0.4 103/ul Normal 0.0-0.7 [facility] Comment on above: Performed By: #### C BC ####[facility] [address] [place], [place] [address]Dr. Heidi Zhang Eosinophils/100 WBC (Bld) 4.4 % Normal 0.9-7.0 [facility] Comment on above: Performed By: #### C BC ####[facility] [address] [place], [place] [address]Dr. Heidi Zhang Erythrocyte distribution width (RBC) [Ratio] 11.9 % Normal 11.0-15.0 [facility] Comment on above: Performed By: #### C BC ####[facility] [address] [place], [place] [address]DrRenee Zhang Hematocrit (Bld) [Volume fraction] 44.8 % Normal 42.0-54.0 [facility] Comment on above: Performed By: #### C BC ####[facility] [address] [place], [place] [address]DrRenee Zhang Hemoglobin (Bld) [Mass/Vol] 15.2 g/dL Normal 14.0-18.0 [facility] Comment on above: Performed By: #### C BC ####[facility] [address] [place], [place] [address]Dr. Heidi Zhang IG # 0.04 10e3/ul Critically high 0.00-0.03 [facility] Comment on above: Performed By: #### C BC ####[facility] [address] [place] [address]Dr. Heidi Zhang IG % 0.4 % Normal 0.0-0.5 [facility] Comment on above: Performed By: #### C BC ####[facility] [address] [place], [place] [address]DrRenee Zhang LYMPH # 1.7 103/ul Normal 1.2-3.8 [facility] Comment on above: Performed By: #### C BC ####[facility] [address] [place], [place] [address]DrRenee Zhang Lymphocytes/100 WBC (Bld) 16.6 % Critically low 20.5-60.0 [facility] Comment on above: Performed By: #### C BC ####[facility] [address] [place], [place] [address]DrRenee Zhang MANUAL DIFF REQ NO Normal [facility] Comment on above: Performed By: #### C BC ####[facility] [address] [place], [place] [address]Dr. Heidi Vicente MCH (RBC) [Entitic mass] 31.1 pg Normal 25.9-34.0 [facility] Comment on above: Performed By: #### C BC ####[facility] [address] [place], [place] [address]DrRenee Heidi Vicente MCHC (RBC) [Mass/Vol] 33.9 g/dL Normal 29.9-35.2 [facility] Comment on above: Performed By: #### C BC ####[facility] [address] [place], [place] [address]DrRenee Zhang MCV (RBC) [Entitic vol] 91.8 fL Normal 80.0-94.0 [facility] Comment on above: Performed By: #### C BC ####[facility] [address] [place], [place] [address]DrRenee Zhang MONO # 0.9 103/ul Critically high 0.3-0.8 [facility] Comment on above: Performed By: #### C BC ####[facility] [address] [place] [id number]. Heidi Zhang Monocytes/100 WBC (Bld) 8.7 % Normal 1.7-12.0 [facility] Comment on above: Performed By: #### C BC ####[facility] [address] [place] [address]Dr. Heidi Zhang NEUT # 6.9 103/ul Critically high 1.4-6.5 [facility] Comment on above: Performed By: #### C BC ####[facility] [address] [place] [address]Dr. Heidi Zhang Neutrophils/100 WBC (Bld) 69.3 % Normal 43.0-75.0 [facility] Comment on above: Performed By: #### C BC ####[facility] [address] [place] [address]Dr. Heidi Zhang Platelet mean volume (Bld) [Entitic vol] 9.9 fL Normal 9.5-13.5 [facility] Comment on above: Performed By: #### C BC ####[facility] [address] [place] [address]Dr. Heidi Zhang PLT 153 103/ul Normal 150-450 [facility] Comment on above: Performed By: #### C BC ####[facility] [address] [place] [address]Dr. Heidi Zhang RBC 4.88 106/ul Normal 4.70-6.10 [facility] Comment on above: Performed By: #### C BC ####[facility] [address] [place] [address]Dr. Heidi Zhang WBC 10.0 103/ul Normal 4.0-11.0 [facility] Comment on above: Performed By: #### C BC ####[facility] [address] [place], [place] [address]Dr. Heidi Zhang GLYCOHEMOGLOBIN A1Con 10-24- 2022 ADA RECOMMENDATION SEE BELOW Normal [facility] Comment on above: Result Comment: ADA RECOMMENDED LIMIT 4.0 - 6.0 ADA THERAPEUTIC TARGET < 7.0 ACTION SUGGESTED > 7.0 Performed By: #### A 1C #### [facility] [address] [place] [address] [address] Heidi Zhang Glucose [Mass/Vol] 166 mg/dL Normal [facility] Comment on above: Performed By: #### A 1C #### [facility] [address] [place] [address] [address] Heidi Zhang HbA1c (Bld) [Mass fraction] 7.4 % Critically high 4.5-6.2 [facility] Comment on above: Performed By: #### A 1C #### [facility] [address] [place] [address] [address] Heidi Zhang LIPID PROFILEon 08-11-2022 CHOL-HDL RATIO NORM SEE BELOW Normal [facility] Comment on above: Result Comment: 3.3 - 4.4 LOW RISK 4.4 - 7.1 AVERAGE RISK 7.1 - 11.0 MODERATE RISK >11.0 HIGH RISK Performed By: #### B MP, LIPID ####[facility] [address] [place] [id number] Zhang Cholesterol [Mass/Vol] 127 mg/dL Normal <=200 [facility] Comment on above: Performed By: #### B MP, LIPID ####[facility] [address] [place] [id number] Zhang Cholesterol in HDL [Mass/Vol] 41 mg/dL Normal 40-60 [facility] Comment on above: Performed By: #### B MP, LIPID ####[facility] [address] [place], [place] [address]KiRenee Zhang Cholesterol in LDL [Mass/Vol] 55.2 mg/dL Normal [facility] Comment on above: Performed By: #### B MP, LIPID ####[facility] [address] [place], [place] [address]PkRenee Zhang Cholesterol.total/C holesterol in HDL [Mass ratio] 3.1 {ratio} Normal [facility] Comment on above: Performed By: #### B MP, LIPID ####[facility] [address] [place] [address]Dr. Heidi Zhang HDL NORMAL > or = 60 mg/dl - LO W CARDIOVASCULAR RISK <40 mg/dl - HIGH CARDIOVASCULAR RISK Normal [facility] Comment on above: Performed By: #### B MP, LIPID ####[facility] [address] [place] [address]Dr. Heidi Zhang LDL CALC NORMAL SEE BELOW Normal [facility] Comment on above: Result Comment: <100 mg/dl OPTIMAL 100 - 129 mg/dl NEAR OR ABOVE OPTIMAL 130 - 159 mg/dl BORDERLINE HIGH 160 - 189 mg/dl HIGH >190 mg/dl VERY HIGH Performed By: #### B MP, LIPID ####[facility] [address] [place] [address]Dr. Heidi Zhang Triglyceride [Mass/Vol] 154 mg/dL Critically high <=150 [facility] Comment on above: Performed By: #### B MP, LIPID ####[facility] [address] [place] [address]Dr. Heidi Zhang VLDL CALC 30.8 mg/dL Normal [facility] Comment on above: Performed By: #### B MP, LIPID ####[facility] [address] [place] [address]Dr. Heidi Zhang PROF CHEM 8 (BAS METB)on Anion gap [Moles/Vol] 10.1 mmol/L Normal [facility] Comment on above: Performed By: #### B MP, LIPID ####[facility] [address] [place] [address]Dr. Heidi Zhang Calcium [Mass/Vol] 9.2 mg/dL Normal 8.5-10.1 [facility] Comment on above: Performed By: #### B MP, LIPID ####[facility] [address] [place] [address]Dr. Heidi Zhang Chloride [Moles/Vol] 95 mmol/L Critically low 98-107 [facility] Comment on above: Performed By: #### B MP, LIPID ####[facility] [address] [place] [id number]. Heidi Zhang CO2 [Moles/Vol] 28.9 mmol/L Normal 21.0-32.0 [facility] Comment on above: Performed By: #### B MP, LIPID ####[facility] [address] [place] [id number]. Nevaehrachel Zhang Creatinine [Mass/Vol] 0.92 mg/dL Normal 0.70-1.30 [facility] Comment on above: Performed By: #### B MP, LIPID ####[facility] [address] [place] [id number]. Nevaehrachel Vicente EGFR-AF [place] >60 Normal >=60 [facility] Comment on above: Performed By: #### B MP, LIPID ####[facility] [address] [place] [id number]. Heidi Zhang EGFR-NON AF [place]IZ[place] >60 Normal >=60 [facility] Comment on above: Performed By: #### B MP, LIPID ####[facility] [address] [place] [id number]. Nevaehrachel Vicente Glucose [Mass/Vol] 172 mg/dL Critically high 74-106 T [facility] Comment on above: Performed By: #### B MP, LIPID ####[facility] [address] [place] [id number]. Heidi Zhang Potassium [Moles/Vol] 5.0 mmol/L Normal 3.5-5.1 [facility] Comment on above: Performed By: #### B MP, LIPID ####[facility] [address] [place] [id number]. Heidi Zhang Sodium [Moles/Vol] 129 mmol/L Critically low 136-145 [facility] Comment on above: Performed By: #### B MP, LIPID ####[facility] [address] [place] [id number]. Heidi Zhang Urea nitrogen [Mass/Vol] 14.0 mg/dL Normal 7.0-18.0 [facility] Comment on above: Performed By: #### B MP, LIPID ####[facility] [address] [place], [place] [address]XdDr. Heidi Zhang Urea nitrogen/Creatinine [Mass ratio] 15.2 mg/mg Normal [facility] Comment on above: Performed By: #### B MP, LIPID ####[facility] [address] [place], [place] [address]VjDr. Heidi Zhang US LADI DOP LEG RTon [...] KAY SOMMER Date: 2022-04-28 21:51 Normal [facility] GLYCOHEMOGLOBIN A1Con 2021 ADA RECOMMENDATION SEE BELOW Normal [facility] Comment on above: Result Comment: ADA RECOMMENDED LIMIT 4.0 - 6.0 ADA THERAPEUTIC TARGET < 7.0 ACTION SUGGESTED > 7.0 Performed By: #### A 1C #### [facility] [address] [place] [address] [address] Heidi Zhang Glucose [Mass/Vol] 154 mg/dL Normal [facility] Comment on above: Performed By: #### A 1C #### [facility] [address] [place] [address] [address] Heidi Zhang HbA1c (Bld) [Mass fraction] 7.0 % Critically high 4.5-6.2 [facility] Comment on above: Performed By: #### A 1C #### [facility] [address] [place] [address] [address] Heidi Zhang LIPID PROFILEon 03-31-2022 CHOL-HDL RATIO NORM SEE BELOW Normal [facility] Comment on above: Result Comment: 3.3 - 4.4 LOW RISK 4.4 - 7.1 AVERAGE RISK 7.1 - 11.0 MODERATE RISK >11.0 HIGH RISK Performed By: #### L IPID #### [facility] [address] [place] [address] [address] Heidi Zhang Cholesterol [Mass/Vol] 126 mg/dL Normal <=200 [facility] Comment on above: Performed By: #### L IPID #### [facility] [address] [place] [address] [address] Heidi Zhang Cholesterol in HDL [Mass/Vol] 37 mg/dL Critically low 40-60 [facility] Comment on above: Performed By: #### L IPID #### [facility] [address] [place] [address] [address] Heidi Zhang Cholesterol in LDL [Mass/Vol] 37.4 mg/dL Normal [facility] Comment on above: Performed By: #### L IPID #### [facility] [address] [place] [address] [address] Heidi Zhang Cholesterol.total/C holesterol in HDL [Mass ratio] 3.4 {ratio} Normal [facility] Comment on above: Performed By: #### L IPID #### [facility] [address] [place] [address] [address] Heidi Zhang HDL NORMAL > or = 60 mg/dl - LO W CARDIOVASCULAR RISK <40 mg/dl - HIGH CARDIOVASCULAR RISK Normal [facility] Comment on above: Performed By: #### L IPID #### [facility] [address] [place] [address] [address] Heidi Zhang LDL CALC NORMAL SEE BELOW Normal [facility] Comment on above: Result Comment: <100 mg/dl OPTIMAL 100 - 129 mg/dl NEAR OR ABOVE OPTIMAL 130 - 159 mg/dl BORDERLINE HIGH 160 - 189 mg/dl HIGH >190 mg/dl VERY HIGH Performed By: #### L IPID #### [facility] [address] [place] [address] [address] Heidi Zhang Triglyceride [Mass/Vol] 258 mg/dL Critically high <=150 [facility] Comment on above: Performed By: #### L IPID #### [facility] [address] [address] [address] Heidi Zhang VLDL CALC 51.6 mg/dL Normal [facility] Comment on above: Performed By: #### L IPID #### [facility] [address] [address] [address] Heidi Zhang CNOVon 02-27-2022 CNOV Office Visit (OTOLMN ) JOIE LU JR ([id number]) 1955 M Date Time Provider Department 02/27/22 [...] assessment and plan were my own and resident/MI[employer] COAL TRANSPORT OPERATOR/scribe was acting as SCRIBE. Hearing unchanged, unimproved It's unclear where his severe ear pain is coming from as it's not happening today and the ear looks very healthy. Recommend pt come back to [facility] for assessment next time this flares so we can see if its otologic or not. Gifty Couch MD, FACS Section Head, Otology/Neurotology/[facility] Base Surgery Irrigation Foreman, Cochlear Implant Program [facility] [place] [facility] History of Present Illness Mr. JOIE LU [...] Skin: Sarahi (more content not included)... Normal [facility] Office Visit (CDISMN ) JOIE LU JR ([id number]) 1955 M Date Time Provider Department 02/27/22 2:00 PM SHIKHA MUNOZ During your visit today, we recorded the following information about you: ANIVLA Glover 02/27/2022 3:36 PM Signed [facility] [place] AUDIOLOGIC EVALUATION REPORT Name: Joie Lu JR [facility]#: [id number] Date of Service: 02/27/2022 Date of : 1955 Age: [age] year old Referred by: Regan Ortega MD ([facility]) [address] [facility] [address] Referred for: Evaluation of suspected change in hearing, tinnitus, or balance. Referral documented: In an order in Psychiatric Joie Lu JR was seen for a [...] right greater than left hearing loss. See [facility] Audiogram for additional reported history and [...] Should patient wish to pursue amplification at [facility], call [phone] to schedule a hearing aid evaluation appointment. * Re-evaluation as medically indicated, or sooner, if a change in hearing is noted. I verify that I have reviewed the history, test results, and interpretation for this patient. Neri Glover, MEL/A Clinical Collar Pointer ALVINO cohn Definition Degree of hearing sensitivity dB range WNL within normal limits WNL 0 - 20 SNHL sensorineural hearing loss Mild 20-40 CHL conductive hearing loss Moderate 40-55 MHL mixed hearing loss Moderately-Severe 55-70 WRS word recognition score Severe 70-90 ME middle ear Profound 90 + TM tympanic membrane Referring Provider: REGAN ORTEGA [[id number]] Allergies As of Date: 02/27/2022 Noted Allergy Reaction MORPHINE 05/25/2014 2 - Rash 9 - Itching BEE STING 08/18/2018 7 - Swelling 10 - Anaphylaxis PENICILLINS 01/17/20 (more content not included)... Normal [facility] CNPNon 02-11-2022 CNPN Telephone (OTOLMN) JOIE LU JR ([id number]) 1955 M Date Time Provider Department 02/11/22 [...] take the sharp aches away. [facility] is perferred pharmacy Thanks Carin Freeman Adm [...] ankle, unspe (more content not included)... Normal [facility] Kanwal 02-06-2022 CNPN Telephone (OTOLMN) JOIE LU ([id number]) 1955 M Date Time Provider Department 02/06/22 GIFTY COUCH During your visit today, we recorded the following information about you: Carin Freeman Adm Asst 02/06/2022 11:57 AM Signed Patient is calling for a refill on the clonazePAM (KLONOPIN) 1 mg tablet. [facility] on file has been updated Thanks [...] 1 02/06/2022 (more content not included)... Normal [facility] CT TEMP BONES WO IVCONon [facility] Vital Signs Date Time Vital Sign Value Performing Clinician Facility 03-25-2023 14:00-0400 Body height 193.04 cm Agustin Nj Other [facility] Other 03-25-2023 14:00-0400 Body mass index (BMI) [Ratio] 38.95 kg/m2 Agustin Nj Other [facility] Other 03-25-2023 14:00-0400 Body temperature 97.6 [degF] Agustin Nj Other [facility] Other 03-25-2023 14:00-0400 Body weight 145.15 kg Agustin Nj Other [facility] Other 03-25-2023 14:00-0400 Diastolic blood pressure 84 mm[Hg] Agustin Nj Other [facility] Other 03-25-2023 14:00-0400 Respiratory rate 20 /min Agustin Nj Other [facility] Other 03-25-2023 14:00-0400 SaO2% (BldA) [Mass fraction] 96 % Agustin Nj Other [facility] Other 03-25-2023 14:00-0400 Systolic blood pressure 132 mm[Hg] Agustin Nj Other [facility] Other 10-31-2022 09:13-0500 Body temperature 98.2 [degF] Saima Macdonald MD Work Phone: [facility] 08-28-2021 10:30-0500 Body height 193.04 cm Agustin Nj Other [facility] Other 08-28-2021 10:30-0500 Body mass index (BMI) [Ratio] 39.68 kg/m2 Agustin Nj Other [facility] Other 08-28-2021 10:30-0500 Body temperature 98.4 [degF] Agustin Nj Other [facility] Other 08-28-2021 10:30-0500 Body weight 147.87 kg Agustin Nj Other [facility] Other 08-28-2021 10:30-0500 Diastolic blood pressure 92 mm[Hg] Agustin Nj Other [facility] Other 08-28-2021 10:30-0500 Respiratory rate 20 /min Agustin Nj Other [facility] Other 08-28-2021 10:30-0500 SaO2% (BldA) [Mass fraction] 97 % Agustin Nj Other [facility] Other 08-28-2021 10:30-0500 Systolic blood pressure 160 mm[Hg] Agustin Nj Other [facility] Other Encounters Encounter Date Encounter Type Care Provider Facility Start: 10-26-2023 End: 10-26-2023 ambulatory SHAIKH MAINE Not Available Start: 09-24-2023 End: 09-24-2023 ambulatory LAUREN SHETH Not Available Start: 09-01-2023 End: 09-02-2023 ambulatory Lucía Montero APNS-STITCHING MACHINE FEEDER OR OFFBEARER [facility] Start: 08-31-2023 End: 09-01-2023 ambulatory Johnny Cespedes MD Facility:[facility] Start: 08-27-2023 End: 08-28-2023 ambulatory Linh Simone Donaldsonzman APNS-STITCHING MACHINE FEEDER OR OFFBEARER Facility:[facility] Start: 08-24-2023 End: 08-25-2023 ambulatory Linh Simone Cheatham APNS-STITCHING MACHINE FEEDER OR OFFBEARER Facility:[facility] Start: 08-20-2023 End: 08-21-2023 ambulatory Linh Simone Linden APNS-STITCHING MACHINE FEEDER OR OFFBEARER Facility:[facility] Start: 08-17-2023 End: 08-18-2023 ambulatory Jose Francisco Beaulieu MD Facility[facility] Start: 08-17-2023 End: 08-18-2023 ambulatory Linh Simone Linden APNS-STITCHING MACHINE FEEDER OR OFFBEARER Facility:[facility] Start: 08-13-2023 End: 08-14-2023 ambulatory Linh Simone Linden APNS-STITCHING MACHINE FEEDER OR OFFBEARER Facility:[facility] Start: 08-11-2023 ambulatory Johnny Cespedes MD Facility:[facility] Start: 08-10-2023 End: 08-11-2023 ambulatory Jose Francisco Beaulieu MD Facility:[facility] Start: 08-06-2023 End: 08-07-2023 ambulatory Linh Simone Cheatham APNS-STITCHING MACHINE FEEDER OR OFFBEARER Facility:[facility] Start: 08-03-2023 End: 08-04-2023 [facility]ITCHING MACHINE FEEDER OR OFFBEARER Facility:[facility] Start: 07-31-2023 End: 08-01-2023 ambulatory Lucía L Montero APNS-STITCHING MACHINE FEEDER OR OFFBEARER Facility[facility] Start: 07-21-2023 End: 07-30-2023 Evaluation and management of inpatient Claudia Simpson MD Facility:[facility] Start: 06-25-2023 End: 06-26-2023 ambulatory JUSTIN [facility] Start: 06-10-2023 End: 06-10-2023 Encounter for preprocedural laboratory examination [facility] Start: 06-10-2023 End: 06-13-2023 ambulatory JUSTIN [facility] Start: 06-10-2023 End: 06-12-2023 Patient encounter status [facility] 4 [facility] Ti ffin Radiology Start: 06-10-2023 End: 06-12-2023 Subsequent hospital visit by physician [facility] Xr Dr Room 4 [facility] Comment on above: 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; Encounter for preprocedural laboratory examination Start: 06-08-2023 End: 06-08-2023 Subsequent hospital visit by physician [facility] Pre Admit Test Rm [facility] PRE ADMIT Comment on above: No Show Start: 06-01-2023 Refill Partha Sudaniellela c PA-C Work Phone: [facility] [place] [place] Comment on above: Refill Request Start: 05-27-2023 Chart Update Shaikh Maine Work Phone: [facility] 250 DO Work Phone: Start: 05-26-2023 ambulatory PCP UNKNOWN Facility:[id number] Start: 05-25-2023 Encounter for preprocedural cardiovascular examination Shawn Marlow [facility] Start: 05-25-2023 ambulatory PCP UNKNOWN Facility:[id number] Start: 04-14-2023 End: 04-14-2023 ambulatory Kamal Chaban Facility:[facility] Start: 04-14-2023 End: 04-14-2023 ambulatory MD Shaikh Grove Work Phone: [facility] Work Phone: Start: 04-14-2023 End: 04-14-2023 Patient encounter procedure MD Shaikh Grove Work Phone: [facility]-CT Scan [place] Work Phone: Start: 04-09-2023 NPVRFRL, Provider: Mily Marlow, Status: Pen, Time: 10:00 AM [facility] Work Phone: Start: 04-09-[address] Mily Marlow Facility: Start: 04-08-2023 AUDIT Mily bales MD Work Phone: [facility] 600 DO Work Phone: Start: 04-03-2023 End: 04-03-2023 ambulatory Agustin Nj Other [facility] Other Start: 04-03-2023 Telephone encounter Agustin Adancassidy [facility] Start: 03-27-2023 End: 03-28-2023 ambulatory SHAIKH MAINE Facility[facility] Start: 03-25-2023 End: 03-25-2023 ambulatory Agustin Nj Other [facility] Other Start: 03-25-2023 Office outpatient vi sit 15 minutes Kamjamel Nj [facility] Start: 03-25-2023 End: 04-14-2023 Pre-admission assessment Jose Francisco [facility] Start: 02-24-2023 End: 02-24-[address] BRENDA SUÁREZ . Facility: Start: 02-15-2023 End: 02-15-2023 ambulatory KIM Duran Facility: Start: 01-28-2023 End: 01-29-2023 ambulatory SHAIKH Jonathan GROVE Facility: Start: 01-27-2023 End: 01-27-2023 ambulatory PARTHA JACKSON Facility:[facility] Start: 01-27-2023 End: 01-27-2023 Patient encounter procedure [...] 12-02-2022 End: 12-02-2022 ambulatory Agustin Antionettecassidy Other [facility] Other Start: 12-02-2022 Telephone encounter Perfectojamel Adancassidy [facility] Start: 11-06-2022 End: 11-06-2022 ambulatory Perfectojamel Adancassidy Other [facility] Other Start: 11-06-2022 Telephone encounter Saima raya MD Work Phone: Otolaryngology Comment on above: Patient Question; Or ders Start: 10-31-2022 End: 10-31-2022 ambulatory SAIMA MACDONALD Facility:[facility] Start: 10-31-2022 End: 10-31-2022 Patient encounter procedure Saima Macdonald MD Work Phone: Otolaryngology Comment on above: Acute recurrent fron monica sinusitis; Other chronic sinusitis Start: 10-13-2022 End: 10-14-2022 ambulatory SHAIKH Jonathan GROVE Facility:[facility] Start: 10-03-2022 End: 10-03-2022 ambulatory Marlin Vasquez Other [facility] Other Start: 10-03-2022 Telephone encounter Marlin Vasquez [facility] Start: 08-19-2022 End: 08-20-2022 ambulatory PARTHA JACKSON Facility:[facility] Start: 08-19-2022 End: 08-19-2022 Patient encounter procedure [...] 07-17-2022 End: 07-17-2022 ambulatory Marlin Christina Other [facility] Other Start: 07-17-2022 Telephone encounter Marlin Vasquez [facility] Start: 06-19-2022 End: 06-20-2022 ambulatory CALVO H FAWWAD Facility:[facility] Start: 04-28-2022 End: 04-29-2022 ambulatory CALVO H FAWWAD Facility:[facility] Start: 04-09-2022 End: 04-09-2022 ambulatory Kamal Chaban Other [facility] Other Start: 04-09-2022 Telephone encounter Kamjamel Nj [facility] Start: 03-31-2022 End: 04-01-2022 ambulatory CALVO H FAWWAD Facility:[facility] Start: 02-27-2022 End: 02-28-2022 ambulatory GIFTY COUCH Facility:[facility] Start: 02-27-2022 End: 02-27-2022 Patient encounter procedure [...] 08-28-2021 End: 08-28-2021 ambulatory Kamjamel Nj Other [facility] Other Start: 08-28-2021 Office outpatient vi sit 15 minutes Perfectojamel Clem [facility] Start: 03-06-2021 End: 03-06-2021 Subsequent hospital visit by physician [facility] Vonda Work Phone: Radiology Comment on above: 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.A31] Start: 11-16-2017 End: 11-17-2017 Ambulatory DEFAULT PHYSICIAN Facility:[facility] Patient encounter status Mily Marlow MD Work Phone: -[facility] 600 DO Work Phone: Procedures Date Procedure [...] Phone: H/O: surgery Status post tympanoplasty Partha Sudanielellac PA-C Work Phone: Hand surgery care plan [...] (Diabetes, CKD 3-4, OR last GFR 15-59) [facility] Start: 11-03-2023 [facility] Start: 09-29-2023 FUV, Provider: Mily Marlow, Status: Pen, Time: 10:50 AM FUV, Provider: Mily Marlow, Status: Pen, Time: 10:50 AM [facility] 250 DO Work Phone: Start: 06-25-2023 End: 06-25-2023 Admission to same day surgery center 06/25/2023 Surgery IP Unit Justin Mcgowan MD [address] [place] [address] [place] [address] KNEE TOTAL ARTHROPLASTY [facility] Comment on above: KNEE TOTAL ARTHROPLA STY Start: 06-25-2023 End: 06-25-2023 Anesthesia consultation 06/25/2023 Anesthesia Event IP Unit Kristal Nolasco APRN - CRNA [facility] Start: 06-25-2023 End: 06-25-2023 Arthrp kne condyle&platu medial&lat compartments KNEE TOTAL ARTHROPLASTY Right knee pain, unspecified chronicity 06/25/2023 8:00 AM EDT [facility] Start: 06-25-2023 Subsequent hospital visit by physician 06/25/2023 Hospital Encounter IP Unit Justin Mcgowan MD [address] [facility] [address] [place] Start: 06-19-2023 Influenza vaccination INFLUENZA (#1) [facility] Start: 06-02-2023 Annual Wellness Visi t (AWV) Annual Wellness Visit (AWV) [facility] Start: 05-19-2023 Influenza vaccination Flu vaccine (# 1) [facility] Start: 12-03-2022 COVID-19 VACCINE (5 - Moderna series) COVID-19 VACCINE (5 - Moderna series) [facility] Start: 10-19-2022 ADVANCE DIRECTIVE DISCUSSION ADVANCE DIRECTIVE DISCUSSION [facility] Start: 07-04-2022 BP CONTROLLED (<130/80) BP CONTROLLE D (<130/80) [facility] Start: 06-19-2022 Influenza vaccination INFLUENZ A (Season Ended) [facility] Start: 10-19-2021 ADVANCE DIRECTIVE DISCUSSION ADVANCE DIRECTIVE DISCUSSION [facility] Start: 07-04-2021 COVID-19 VACCINE (3 - Booster for Moderna series) COVID-19 VACCINE (3 - Booster for Moderna series) [facility] Start: 2021 PNEUMOVAX AGE 65 AND OVER WITH 5YR LOOKBACK (#1) PNEUMOVAX AGE 65 AND OVER WITH 5YR LOOKBACK (#1) [facility] Start: 03-29-2021 COVID-19 Vaccine (3 - Booster for Moderna series) COVID-19 Vaccine (3 - Booster for Moderna series) [facility] Start: 12-20-2014 Hemoglobin A1c/Hemoglobin.total in Blood HBA1C [facility] Start: 11-16-2013 Pneumococcal 65+ yea rs Vaccine (2 - PCV) Pneumococcal 65+ years Vaccine (2 - PCV) [facility] Start: 11-16-2013 PNEUMOCOCCAL: 65+ (2 - PCV) PNEUMOCOCCAL: 65+ (2 - PCV) [facility] Start: 08-09-2013 Hepatitis B surface antibody level LDL CHOLESTEROL [facility] Start: 2011 PROSTATE CANCER SCREENING DISCUSSION PROSTATE CANCER SCREENING DISCUSSION [facility] Start: 2006 Shingles vaccine (1 of 2) Shingles vaccine (1 of 2) [facility] Start: 2006 SHINGRIX VACCINE (1 of 2) SHINGRIX VACCINE (1 of 2) [facility] Start: 05-20-2005 DTaP/Tdap/Td vaccine (1 - Tdap) DTaP/Tdap/Td vaccine (1 - Tdap) [facility] [employer] Start: 2001 COLOGUARD (FIT-DNA) COLOGUARD (FIT-D NA) [facility] Start: 2001 Colonoscopy COLONOSCOPY [facility] Start: 2001 COLORECTAL CANCER SCREENING COLORECTAL CANCER SCREENING [facility] Start: [address] COLONOGRAPHY [facility] Start: 2001 FECAL OCCULT BLOOD FECAL OCCULT BLOO D [facility] Start: 2001 Screening for malign ant neoplasm of colon [facility] [employer] Start: 2001 SIGMOIDOSCOPY SIGMOIDOSCOPY [facility] Start: 1986 Zoledronic acid therapy ALPHA- 1 ANTITRYPSIN DEFICIENCY SCREENING [facility] Start: 1975 Urine microalbumin profile DTAP,TDAP,TD (1 - Tdap) [facility] Start: 1974 ANNUAL PCP TEAM [employer] MANA[employer] HELDER DISEASE VISIT ANNUAL PCP TEAM CHRONIC DISEASE VISIT [facility] Start: 1974 BP CONTROLLED (<130/80) BP CONTROLLE D (<130/80) [facility] Start: 1974 GFR test (Diabetes, CKD 3-4, OR last GFR 15-59) GFR test (Diabetes, CKD 3-4, OR last GFR 15-59) [facility] Start: 1974 Glaucoma screening Diabetic retinal exam [facility] Start: 1974 Hepatitis C screening Hepatitis C sc reen [facility] Start: 1974 HIV SCREENING HIV SCREENING [facility] Start: 1974 SPIROMETRY SPIROMETRY [facility] Start: 1974 Urine screening for protein Diabetic Alb to Cr ratio (uACR) test [facility] Start: 1968 Depression Screen Depression Screen [facility] Start: 1966 3 comp foot exam completed DIABETIC FOOT EXAM [facility] Start: 1966 Diabetic foot examination Diabetic foot exam [facility] Start: 1966 Hemoglobin A1c measurement A1C test (Diabetic or Prediabetic) [facility] Start: 1966 Hepatitis B screening URINE ALBUMIN:CREATININE RATIO [facility] Start: 1966 Hepatitis C antibody , confirmatory test DILATED RETINAL EXAM [facility] Start: 1966 Lipid panel Lipids [facility] Start: 1956 ABDOMINAL AORTIC ANEURYSM SCREENING ABDOMINAL AORTIC ANEURYSM SCREENING [facility] End: 11-30-2023 CT SINUS STEREO WO IVCON CT SINUS STEREO WO IVCON Radiology Routine Other chronic sinusitis 1 Occurrences starting 10/31/2022 until 11/30/2023 [facility] Work Phone: Comment on above: 1 Occurrences starti ng 10/31/2022 until 11/30/2023 End: 06-10-2023 MRSA DNA Probe, Nasal [facility] Work Phone: Comment on above: Once for 1 Occurrenc es starting 06/10/2023 until 06/10/2023 [facility] Immunizations Immunization Date Immunization Notes Care Provider Gabino jordan 08-12-2021 COVID-19 Vaccine Moderna - Documentation Purposes Only Agustin Nj Other [facility] Other 02-01-2021 COVID-19 Vaccine Moderna - Documentation Purposes Only Agustin Nj Other [facility] Other 01-04-2021 COVID-19 Vaccine Moderna - Documentation Purposes Only Agustin Nj Other [facility] Other 11-16-2012 pneumococcal polysaccharide vaccine, 23 valent Gifty Couch MD Work Phone: [facility] 07-12-2012 influenza virus vaccine, unspecified formulation Gifty Couch MD Work Phone: [facility] 07-28-2011 influenza virus vaccine, unspecified formulation Gifty Couch MD Work Phone: [facility] 08-06-2005 tetanus toxoid, adsorbed Gifty Couch MD Work Phone: [facility] 05-19-2005 Td, unspecified formulation Jairo Tapia DO Work Phone: [facility] 07-28-2001 pneumococcal polysaccharide vaccine, 23 valent Gifty Couch MD Work Phone: [facility] Payers Date Payer Category Payer Self-pay [id number] 2021 Medicare DEVOTED MEDICARE [facility] [id number] 2021-Present [phone] [address] [place] [address] [facility] [id number] 2021 Medicare [id number]. [id number] 2021 Unknown [id number] 2.16.840 .[id number] 2018 Unknown 1955 Unknown [id number] 2.16.840.1.722880.3.579.2.593 1955 Unknown [id number] 2.16.840.1.664260.3.579.2.593 1955 Unknown [id number] 2.16.840.1.914223.3.579.2.593 1955 Unknown [id number] 2.16.840.1.239789.3.579.2.593 1955 Unknown [id number] 2.16.840.1.042856.3.579.2.593 1956 Unknown [id number] 2.16.840.1.864390.3.579.2.593 1955 Unknown [id number] 2.16.840.1.110102.3.579.2.593 1956 Unknown [id number] 2.16.840.1.037363.3.579.2.593 1956 Unknown [id number] 2.16.840.1.753688.3.579.2.593 1956 Unknown [id number] 2.16.840.1.343071.3.579.2.593 1956 Unknown [id number] 2.16.840.1.918981.3.579.2.727 1955 Unknown [id number] 2.16.840.1.283633.3.579.2.356 1956 Unknown [id number] 2.16.840.1.002458.3.579.2.173 1956 Unknown [id number] 2.16.840.1.475696.3.579.2.173 1956 Unknown [id number] 2.16.840.1.851552.3.579.2.173 1956 Unknown [id number] 2.16.840.1.090984.3.579.2.173 1956 Unknown [id number] 2.16.840.1.273643.3.579.2.173 1956 Unknown [id number] 2.16.840.1.162729.3.579.2.1068 1956 Unknown [id number] 2.16.840.1.173289.3.579.2.1068 1956 Unknown [id number] 2.16.840.1.862987.3.579.2.1259 1956 Unknown [id number] 2.16.840.1.458724.3.579.2.1259 1956 Unknown [id number] 2.16.840.1.912386.3.579.2.196 1956 Unknown [id number] 2.16.840.1.058633.3.579.2.196 1956 Unknown [id number] 2.16.840.1.756225.3.579.2.196 1956 Unknown [id number] 2.16.840.1.645269.3.579.2.196 1956 Unknown [id number] 2.16.840.1.366289.3.579.2.196 1956 Unknown [id number] 2.16840.1.686961.3.579.2.196 1956 Unknown [id number] 2.16840.1.943998.3.579.2.196 1956 Unknown [id number] 2.16.840.1.639763.3.579.2.196 1956 Unknown [id number] 2.16.840.1.360901.3.579.2.196 1955 Unknown [id number] 2.16840.1.591311.3.579.2.196 Medicare [id number] 2.16840.1.275235.19 Medicare Medicare [id number] Unknown [id number] 2.16840.1.297315.3.579.2.531 Social History Date Type Detail Facility Start: 05-12-2012 End: 08-19-2022 Tobacco smoking status NHIS Ex-smoker [facility] End: 02-15-1982 History of tobacco use Current smoker [facility] End: 02-15-1982 History of tobacco use Cigarette Smoker [facility] Start: 08-16-2021 End: 01-27-2023 Alcohol intake Ex-drinker (finding) [facility] Start: 1955 Sex Assigned At Not on file [facility] Start: 01-21-2021 End: 08-19-2022 Exposure to SARS-CoV-2 (event) Not sure [facility] Start: 02-20-2021 End: 10-31-2022 Sex Assigned At [facility] Start: 08-19-2022 End: 10-31-2022 Cigarettes smoked current (pack per day) - Reported 0.5 [facility] Comment on above: quit 40 years ago; Start: 05-12-2012 End: 08-19-2022 Tobacco use and exposure Smokeless tobacco non-user [facility] Start: 1955 Sex Assigned At Male F [facility] Tobacco smoking status No Smokin g Status Entered [facility] National Score (1-10 0), lower number is lower risk Not on file [facility] [place] Start: 05-19-2011 Tobacco smoking stat us NHIS Never smoked tobacco [facility] Start: 04-30-2016 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 (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) [facility] Medical Equipment Procedure Code Equipment Code Equipment Origin al Text Equipment Identifier Dates Graft Bn Canc 15 ml Allgrft - [id number] Start: 06-05-2014 Simplex P Bone Cement Radiopaque Full Dose Individual Pack - [id number] Start: 06-04-2012 Sys Bncmnt Gun Brkwy Noz Crtdg - [id number] Start: 06-04-2012 Cement Bone Simplex P W/ Tobramycin 1gm - [id number] Start: 09-06-2012 Graft Bn Dbm 5ml Ptty Strl - [id number] Start: 09-29-2014 Pnt-Le-S-Kind Implant - [id number] Start: 09-06-2012 Comment on above: Description: 17mm x 100mm stem ext (david [id number]) Wex-Zt-H-Kind Implant - [id number] Start: 09-06-2012 Comment on above: Description: 6 Tibia comp plate (david [id number]) Fgi-Bc-O-Kind Implant - [id number] Start: 09-06-2012 Comment on above: Description: left F Femur comp. (david [id number]) Odc-Ma-K-Kind Implant - [id number] Start: 09-06-2012 Comment on above: Description: 12mm ti bial insert (david [id number]) articulate srfc 3.5 Mm 20mm Eugenio ex Screw [id number] Start: 09-29-2014 3.5mm 22mm Augusto x Screw [id number] Start: 09-29-2014 2.7mm 24mm Locki ng Screw [id number] Start: 09-29-2014 Prosthesis Duc[place]ne 3mm Titanium 3-7mm Ossicular Total Center Shoe Ear - [id number] Start: 11-03-2019 Spcr Fem 75mm Kn Mold - [id number] Start: 06-04-2012 Spcr Demarcus Stg1 Si l 75mm Tib Kn - [id number] Start: 06-04-2012 Ext Stem 30mm 75 mm 15mm Str - [id number] Start: 09-06-2012 Comment on above: Description: extensi on stem 30mm-78-15 (david [id number]) Shld Hinge Sgmnt l Svc Kit Sz F - [id number] Start: 06-05-2014 Srfc Artc 17mm F Tib Kn Seg - [id number] Start: 06-05-2014 Restric Demarcus Unv Rev Insrt - [id number] Start: 09-06-2012 Plate 112mm Ss S tr Fus Lcp Bn - [id number] Start: 09-29-2014 Screw Bn 2.7mm 16mm Lcp Ss - [id number] Start: 09-29-2014 Screw Bn 2.7mm 16mm Lcp Ss Sm - [id number] Start: 09-29-2014 Screw Bn 3.5mm 20mm Lcp Ss - [id number] Start: 09-29-2014 Screw Bn 3.5mm 24mm Lcp Ss - [id number] Start: 09-29-2014 Clinical Notes 07-12-2012 to [...] seen via telemedicine while they were at: _[place] This telemedicine visit was conducted due to: [...] on the . These fax orders to alf: 1. Recheck with me in 1 month [...] 01/04/2021 Recorded Comments (more content not included)... [facility] 08-13-2023 Note This is a Telehealth Appointment *This visit was conducted via Telehealth with real time interactive synchronized audio and video communication. The patient provided written consent for treatment. The patient understands their rights, the HIPAA risks and that they will be charged accordingly for the services rendered. The patient was seen via telemedicine while they were at: [facility] This telemedicine visit was conducted due to: And alf transportation_ Chief Complaint telehealth: hosp f/u R [...] Cultures all remain negative. Patient discharged to [facility] on on IV Rocephin and vancomycin anticipated [...] mg, Oral, q6hr, (more content not included)... [facility] 07-30-2023 Note Admission Informatio n Patient: Joie Lu : 1955 Date of Admission: 07/21/2023 19:33:54 Date of Discharge: 07/30/2023 14:30:00 Code Status: Full Resuscitation PCP: Consult: Cynthia WALLIS, Starla Delcid; Rubina WATERMAN, Johnny Mcgowan MD, Justin Villasenor Follow Up with Provider: With: Address: When: Justin Mcgowan [address] [place] [phone] Business (1) In 2 weeks Brief Hospital Course Summary: This is a 68 Years old Male who originally underwent a right knee replacement with Dr. Paniagua proximately 3 weeks ago. He initially reported to [facility] ER after increasing the pain became unbearable accompanied by significant swelling/edema. Dr. Mcgowan recommended transfer to [facility] ER, therefore patient arrived via EMS. Medical history includes diabetes, hypertension, hyperlipidemia, hypothyroidism and obesity. Patient is admitted for postop infection of the right knee s/p knee replacement approximately [address] Paniagua. Underwent revision right TKA on 07/22 with [...] insulin outpatient. #Hypertension #Hyperlipidemia #Hypothyroidism Disposition--discharge to [facility]. Medications New Medications Printed Prescriptions enoxaparin [...] summary Patient Discharge Condition Stable Discharge Disposition [facility] Objective Vitals & Measurements T: 36.6 ?C (Oral) HR: 70 (Monitored) RR: 16 BP: 112/69 SpO2: 96% HT: 194 cm WT: 142.5 kg BMI: 36.19 Additional Vitals N (more content not included)... [facility] 07-24-2023 Note Procedure: Portable AP chest radiograph following peripherally inserted central catheter (PICC) insertion. Inserted by: Niya RN. PICC type: 4 [place]orran single lumen Power PICC Solo. Puncture site: [...] Signed, Electronically Signed in Other Vendor System) [facility] 07-22-2023 Note Indication for Surge ry Patient [...] x 0.5 cm Surgeon(s) Justin Mcgowan MD Lift Electrician Daniel HINSON, Mimi Bright (Rail Grinder) Anesthesia General Sylvia WATERMAN, Luke Marx (Batch Freezer Operator) Isrrael Escobar (Provider) Zee KO, Harley Anna [...] confirming correct surgical site, patient, and procedure. [place] exsanguination was used and tourniquet was inflated [...] range of m (more content not included)... [facility] 07-22-2023 Note Ok to work w/ pt per RN. Pt in bed sleeping upon arrival. Awakens to name. Education regarding purpose of PT services. Pt agreeable to work with PT, however request PT to come back a bit later in the morning. Pt falling asleep during conversation. Will return as able. Thank you. Electronically signed by Surekha Haley 07/22/23 09:07 EDT [facility] 07-22-2023 Note Chief Complaint Transfer from [facility] secondary to postop infection Assessment/Plan Brief Hospital Course Summary: This is a 68 Years old Malewho originally underwent a right knee replacement with Dr. Paniagua proximately 3 weeks ago. He initially reported to [facility] ER after increasing the pain became unbearable accompanied by significant swelling/edema. Dr. Mcgowan recommended transfer to [facility] ER, therefore patient arrived via EMS. [...] 3 weeks ago. He initially reported to [facility] ER after increasing the pain became unbearable accompanied by significant swelling/edema. Dr. Mcgowan recommended transfer to [facility] ER, therefore patient arrived via EMS. Medical history includes diabetes, hypertension, hyperlipidemia, hypothyroidism and obesity. Patient has remote history of smoking with cessation greater than 5 years ago. He denies alcohol illicit drug use. Blood work upon arrival was significant for sodium 129, glucose 177, WBC 13.7, hemoglobin 12.8, hematocrit 38.0, magnesium 1.7 and CRP 24.09. [facility] chart reviewed. No further imaging indicated [...] qualifying data Historical (more content not included)... [facility] 06-08-2023 History of Present illness Narrative PAT left message with patient regarding not showing for 9am PAT appt. Awaiting response. Message left with Julissa at Dr Mcgowan's office regarding patient not showing up for PAT visit. documented in this encounter [facility] 03-25-2023 Evaluation note Encounter Date Diagnosis Assessment Notes Mar, Asthma with COPD (ICD-10 - J44.9) [facility] Other 04-11-2023 NoteHNO ID: [id number] Author: Partha Jackson PA-C Service: ? Author Type: Physician Lift Electrician Type: Progress Notes Filed: 01/27/2023 7:05 PM [...] REMOVAL: Cerumen was rem (more content not included)...[facility] 01-27-2023 Instructions* Patient Instructions* Partha Jackson PA-C - 01/27/2023 11:48 AM EDT PLAN: -Continue with the Flonase -Continue with the Astelin -Take Medrol Dose Pack, this is a steroid, can increase your blood sugars. Please monitor -Sent refill of the Klonopin -Take Tylenol and Ibuprofen for the pain as well -Follow up with Dr. Macdonald as scheduled [facility] [place] History of Present illness Narrative* Partha Jackson [...] without magnification and multiple instrumentations requiring physician licensed loan officer assistant skills. Postoperative diagnosis: same Partha Jackson PA-C January 27, 2023 7:01 PM Medical Decision Making: Problems: Moderate: 2+ stable chronic illnesses Risk: Moderate: Drug management Medical Decision Making Level: 4 - Moderate [facility] [place] Nurse Note* Judy Pacheco Ma - 01/27/2023 11:19 AM EDT Tobacco Use: .5 packs/day, for 1 years. Quit 02/15/1982. Types: Cigarettes Was smoking cessation packet given? N/A - Patient is a non-smoker or quit >1 year ago. Was a referral initiated?N/A Patient is a non-smoker documented [facility] [place] Evaluation note* Encounter Date Diagnosis Assessment Notes Treatment Notes Treatment Clinical Notes Nov, Asthma with COPD (ICD-10 - J44.9) [facility] Other 01-20-2023 Miscellaneous Notes* Telephone Encounter - [...] gets them frequently. Please advise. [facility] in [facility]- [phone] documented in this encounter[facility] [place] Evaluation note* Encounter Date Diagnosis Assessment Notes Treatment Notes Treatment Clinical Notes Oct, Asthma with COPD (ICD-10 - J44.9) [facility] Other 01-13-2023 NoteHNO ID: [id number] Author: Saima Macdonald MD Service: ? Author Type: Physician Type: Progress Notes Filed: 10/31/2022 5:36 PM Note Text: SECTION OF RHINOLOGY, SINUS AND SKULL BASE SURGERY [place] [facility] [place], [facility] NOTE HPI: Patient is a 67 year old male presenting for evaluation. He reports monthly sinus and ear infection. He has to put earplugs in his ear when taking a shower because when water gets in the ear, the infection starts. He c/o ear pressure He c/o congestion, Green mucous when blowing nose, pressure, and facial pressure. He has not seen an publication distributor. Sinus issues has been going on since [...] Take 1 tablet (more content not included)... [facility]01-13-2023 History of Present illness Narrative* Saima Macdonald MD - 10/31/2022 9:19 AM EST Images from the original note were not included. SECTION OF RHINOLOGY, SINUS AND SKULL BASE SURGERY [facility] [place], [facility] NOTE HPI: Patient is a 67 year old male presenting for evaluation. He reports monthly sinus and ear infection. He has to put earplugs in his ear when taking a shower because when water gets in the ear, the infection starts. He c/o ear pressure He c/o congestion, Green mucous when blowing nose, pressure, and facial pressure. He has not seen an publication distributor. Sinus issues has been going on since [...] is accurate and complete. documented in this encounter[facility] [place]-2022 NoteHNO ID: [id number] Author: Partha Sukalac, PA-C Service: ? Author Type: Physician Lift Electrician Type: Progress Notes Filed: 09/17/2022 7:50 AM [...] CONSULT TO ENT c (more content not included)...[facility]11-01-2022 Instructions* Patient Instructions* Partha Jackson PA-C - 08/19/2022 2:41 PM EDT PLAN: -Recommend appointment with Dr. Saima Macdonald MD in [place] for your sinuses [address] [address] -Continue with nasal sprays and Claritin -Sent refill of the Klonopin -Follow up in 5.5-6 months with Partha Jackson PA-C -Recommend hearing aids in both ears documented in this encounter[facility] [place]2022 History of Present illness Narrative* Partha Jackson [...] Level: 4 - Moderate documented in this encounter[facility] [place]2022 Nurse Note* Caitlin Mosley MA - 08/19/2022 2:22 PM EDT Tobacco Use: .5 packs/day, for 1 years. Quit 02/15/1982. Types: Cigarettes Was smoking cessation packet given? N/A - Patient is a non-smoker or quit >1 year ago. Was a referral initiated?N/A Patient is a non-smoker documented in this encounter[facility] [place]-2022 NotePROCEDURE: XR KNEE LT 4V or > [...] Electronically authenticated by: JONAH GARCIA Date: 2022-06-19 16:09[facility]05-12-2022 NoteHNO ID: [id number] Author: Gifty Couch MD Service: ? Author Type: Physician Type: Progress Notes Filed: 02/28/2022 1:04 AM Note Text: Staff Physician Comments: I testify that I personally interviewed and examined the patient. I confirm the below exam findings, assessment and plan were my own and resident/MILL AND COAL TRANSPORT OPERATOR/scribe was acting as SCRIBE. Hearing unchanged, unimproved It's unclear where his severe ear pain is coming from as it's not happening today and the ear looks very healthy. Recommend pt come back to [facility] for assessment next time this flares so we can see if its otologic or not. Gifty Couch MD, FACS Section Head, Otology/Neurotology/Skull Base Surgery Irrigation Foreman, Cochlear Implant Program [place] [facility] History of Present Illness Mr. JOIE LU [...] is pink and moist (more content not included)...[facility]05-12-2022 NoteHNO ID: [id number] Author: ANIVAL Glover Service: ? Author Type: Collar Pointer Type: Progress Notes Filed: 02/27/2022 3:36 PM Note Text: [facility] [place] [place] AUDIOLOGIC EVALUATION REPORT Name: Joie Lu JR [facility]#: [id number] Date of Service: 02/27/2022 Date of : 1955 Age: [age] year old Referred by: Regan Ortega MD ([facility]) [address] [facility] [address] Referred for: Evaluation of suspected change in hearing, tinnitus, or balance. Referral documented: In an order in Psychiatric Joie Lu JR was seen for a [...] right greater than left hearing loss. See [facility] Audiogram for additional reported history and [...] Should patient wish to pursue amplification at [facility], call [phone] to schedule a hearing aid evaluation appointment. * Re-evaluation as medically indicated, or sooner, if a change in hearing is noted. I verify that I have reviewed the history, test results, and interpretation for this patient. Neri Glover, MEL/A Clinical Collar Pointer HINOJOSA Abbrev- iation Definition Degree of hearing sensitivity dB range WNL within normal limits WNL 0 - 20 SNHL sensorineural hearing loss Mild 20-40 CHL conductive hearing loss Moderate 40-55 MHL mixed hearing loss Moderately-Severe 55-70 WRS word recognition score Severe 70-90 ME middle ear Profound 90 + TM tympanic membraneG[facility]beigh [facility]05-12-2022 Instructions* Patient Instructions* Partha Jackson PA-C [...] good for 6 months. documented in this encounter[facility] [place] History of Present illness Narrative* Gifty Couch MD - 02/27/2022 3:02 PM EDT Images from the original note were not included. Staff Physician Comments: I testify that I personally interviewed and examined the patient. I confirm the below exam findings, assessment and plan were my own and resident/MILL AND COAL TRANSPORT OPERATOR/scribe was acting as SCRIBE. Hearing unchanged, unimproved It's unclear where his severe ear pain is coming from as it's not happening today and the ear looksvery healthy. Recommend pt come back to [facility] for assessment next time this flares so we can see if its otologic or not. Gifty Couch MD, FACS Section Head, Otology/Neurotology/Skull Base Surgery Irrigation Foreman, Cochlear Implant Program [place] [facility] [place] [facility] History of Present Illness Mr. JOIE LU [...] Level: 4 - Moderate documented in this encounterSelect [facility] [place]-12-2022 Nurse Note* Judy Pacheco Ma - 02/27/2022 2:58 PM EDT Tobacco Use: .5 packs/day, for 1 years. Quit 02/15/1982. Types: Cigarettes Was smoking cessation packet given? N/A - Patient is a non-smoker or quit >1 year ago. Was a referral initiated?N/A Patient is a non-smoker documented in this encounter[facility] [place]22 History of Present illness Narrative* ANIVAL Glover - 02/27/2022 2:00 PM EDT [place] [facility] [place] AUDIOLOGIC EVALUATION REPORT Name: Joie F Aly SILVA [facility]#: [id number] Date of Service: 02/27/2022 Date of : 1955 Age: [age] year old Referred by: Regan Ortega MD ([facility]) [address] [facility] [address] Referred for: Evaluation of suspected change in hearing, tinnitus, or balance. Referral documented: In an order in Psychiatric Joie Lu JR was seen for a [...] Should patient wish to pursue amplification at [facility], call [phone] to schedule a hearing aid evaluation appointment. * Re-evaluation as medically indicated, or sooner, if a change in hearing is noted. I verify that I have reviewed the history, test results, and interpretation for this patient. Neri Glover, MEL/A Clinical Collar Pointer HINOJOSA Abbrev- iation Definition Degree of hearing sensitivity dB range WNL within normal limits WNL 0 - 20 SNHL sensorineural hearing loss Mild 20-40 CHL conductive hearing loss Moderate 40-55 MHL mixed hearing loss Moderately-Severe 55-70 WRS word recognition score Severe 70-90 ME middle ear Profound 90 + TM tympanic membrane documented in this encounter[facility] [place]-2022 Miscellaneous Notes* Telephone Encounter - Partha Jackson [...] take the sharp aches away. [facility] is perferred pharmacy Thanks Carin Ashley documented in this encounterSelect [facility] [place]04-21-2022 Miscellaneous Notes* Telephone Encounter - Carin Colye Asst - 02/06/2022 11:52 AM EDT Patient is calling for a refill on the clonazePAM (KLONOPIN) 1 mg tablet. [facility] on file has been updated Thanks Carin Freeman Adm Asst documented in this encounterSelect [facility] [place]-10-2021 Evaluation note* Encounter Date Diagnosis Assessment Notes Treatment Notes Treatment Clinical Notes Aug, Asthma with COPD (ICD-10 - J44.9) [facility] Other 09-24-2012 History of Past illness Narrative* [...] of this encounter (statuses as of 02/06/2022) [facility] History of Past illness Narrative* Problem Noted [...] of this encounter (statuses as of 02/12/2022) [facility] History of Past illness Narrative* Problem Noted [...] of this encounter (statuses as of 02/27/2022) [facility] History of Past illness Narrative* Problem Noted [...] of this encounter (statuses as of 02/28/2022) [facility] History of Past illness Narrative* Problem Noted [...] of this encounter (statuses as of 09/17/2022) [facility] History of Past illness Narrative* Problem Noted [...] of this encounter (statuses as of 10/31/2022) [facility] History of Past illness Narrative* Problem Noted [...] of this encounter (statuses as of 11/10/2022) [facility] History of Past illness Narrative* Problem Noted [...] of this encounter (statuses as of 01/28/2023) [facility] History of Past illness Narrative* Problem Noted [...] of this encounter (statuses as of 05/29/2023) [facility] History of Past illness Narrative* Problem Noted [...] of this encounter (statuses as of 06/02/2023) [facility] + Plan note No data available for this section [facility] Diagnosis 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 Other specified hearing loss, unspecified ear documented in this encounter [facility] note* Diagnosis Otalgia, right- Primary Other specified hearing loss, unspecified ear documented in this encounter [facility] note* Diagnosis Mixed conductive and sensorineural hearing loss of right ear with restricted hearing of left ear- Primary Sensorineural hearing loss (SNHL) of left ear with restricted hearing of right ear documented in this encounter [facility] note* Diagnosis Mixed conductive and sensorineural hearing loss of right ear with restricted hearing of left ear- Primary 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 Status post tympanoplasty Other postprocedural status Impacted cerumen of left ear Impacted cerumen documented in this encounter [facility] noteNo [email or web address] [email or web address] Other Evaluation note* Diagnosis 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- Primary Mixed conductive and sensorineural hearing loss of right ear with restricted hearing of left ear Status post tympanoplasty Other postprocedural status Acute recurrent frontal sinusitis Acute frontal sinusitis documented in this encounter [facility] note* Diagnosis Acute recurrent frontal sinusitis Acute frontal sinusitis Other chronic sinusitis documented in this encounter [facility] note* Diagnosis 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- Primary Fluid level behind tympanic membrane of right ear Mixed conductive and sensorineural hearing loss of right ear with restricted hearing of left ear Status post tympanoplasty Other postprocedural status Impacted cerumen of left ear Impacted cerumen [facility] noteNo assessment information availableCincinnati Shrin[facility] Work Phone: Evaluation note* Diagnosis Mixed conductive and sensorineural hearing loss of right ear with restricted hearing of left ear documented in this encounter [facility] note* Diagnosis 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 documented in this encounter [facility] note* Diagnosis 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 resistant Staphylococcus aureus Encounter for preprocedural laboratory examination Pre-procedural laboratory examination Right knee pain, unspecified chronicity documented in this encounter [facility] general Narrative - Reported* Type Description Date Medical History Hypertension Medical History Arthritis Medical History COPD Medical History Hypothyroid Surgical History knee replacement Surgical History cholecystectomy Surgical History back surgery Surgical History Foot Surgery Surgical History shoulder surgery Surgical History hand surgery Surgical History revision left total knee Surgical History right ear implant 10/2019 Hospitalization History See Above [facility] Other Hospital Discharge instructions No data available for this section [facility] No data available for this section [facility] Summary Purpose Family History No Family History Records FoundUnknown Family Member Name Dates Details Family history of malignant neoplasm: Mother(V16.9, Z80.9) Status:Active No pertinent family history: Father(V49.89, Z78.9) Status:Active Family history of myocardial infarction: Brother(V17.3, Z82.49) Status:Active Family history of CABG: Brot her(V17.49, Z82.49) Status:Active Advance Directives No Advanced Directives Records FoundDocuments on File Type Date Recorded Patient 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 Assistant Expl anation Advance Directive(s) 07/12/2021 10:29 AM Advance Directive(s) 06/21/2021 12:46 PM Advance Directive(s) 11/03/2019 6:20 AM Advance Directive(s) 10/11/2019 2:38 PM Advance Directive Response Recorded Date/ Time Advance Directives No May 24 019 11:50am Reason for Referral Specialty Diagnoses / Procedures Referred By Contac t Referred To Contact Allergy Diagnoses Acute recurrent frontal sinusitis Procedures CONSULT TO ALLERGY/IMMUNOLOGY OFFICE/OUTPATIENT [facility] 60-74 MINUTES Saima Macdonald MD [address] [place] [address] Referral ID Status Reason Start Date Expiration Date Visits Requested Visits Authorized [id number] Pending Review PCP Requested Referral 10/31/2022 10/31/2023 1 1 Specialty Diagnoses / Procedures Referred By Contac t Referred To Contact Ent - Otolaryngology Diagnoses Acute recurrent frontal sinusitis Procedures CONSULT TO ENT OFFICE/OUTPATIENT [facility] 60-74 MINUTES Partha Jackson PA-C [address] [id number] Referral ID Status Reason Start Date Expiration Date Visits Requested Visits Authorized [id number] Pending Review PCP Requested Referral 08/19/2022 08/19/2023 [...] section and content) DATE CREATED AUTHOR 04/12/2018 [facility] DATE CREATED AUTHOR AUTHOR'S ORGANIZ ATION 01/31/2023 [facility] DATE CREATED AUTHOR AUTHOR'S ORGANIZ ATION 02/25/2023 [facility] DATE CREATED AUTHOR AUTHOR'S ORGANIZ ATION [facility]2023 [facility] DATE CREATED AUTHOR AUTHOR'S ORGANIZ ATION 04/10/2023 [facility] DATE CREATED AUTHOR AUTHOR'S ORGANIZ ATION 04/10/2023 [facility] DATE CREATED AUTHOR AUTHOR'S ORGANIZ ATION 04/28/2023 [facility] DATE CREATED AUTHOR AUTHOR'S ORGANIZ ATION 06/30/2023 [facility] DATE CREATED AUTHOR AUTHOR'S ORGANIZ ATION 07/22/2023 [facility] DATE CREATED AUTHOR AUTHOR'S ORGANIZ ATION 10/27/2023 [facility] DATE CREATED AUTHOR AUTHOR'S ORGANIZ ATION 10/29/2023 [facility] Source Comments (unrecognize d section and content) In the event this informatio n is protected by the Federal Confidentiality of Alcohol and Drug Abuse Patient Records regulations: The Federal rules restrict any use of the information to criminally investigate or prosecute any alcohol or drug abuse patient.[facility] the event this information is protected by the Federal Confidentiality of Alcohol and Drug Abuse Patient Records regulations: The Federal rules restrict any use of the information to criminally investigate or prosecute any alcohol or drug abuse patient.[facility] the event this information is protected by the Federal Confidentiality of Alcohol and Drug Abuse Patient Records regulations: The Federal rules restrict any use of the information to criminally investigate or prosecute any alcohol or drug abuse patient.[facility] the event this information is protected by the Federal Confidentiality of Alcohol and Drug Abuse Patient Records regulations: The Federal rules restrict any use of the information to criminally investigate or prosecute any alcohol or drug abuse patient.[facility] the event this information is protected by the Federal Confidentiality of Alcohol and Drug Abuse Patient Records regulations: The Federal rules restrict any use of the information to criminally investigate or prosecute any alcohol or drug abuse patient.[facility] the event this information is protected by the Federal Confidentiality of Alcohol and Drug Abuse Patient Records regulations: The Federal rules restrict any use of the information to criminally investigate or prosecute any alcohol or drug abuse patient.[facility] the event this information is protected by the Federal Confidentiality of Alcohol and Drug Abuse Patient Records regulations: The Federal rules restrict any use of the information to criminally investigate or prosecute any alcohol or drug abuse patient.[facility] the event this information is protected by the Federal Confidentiality of Alcohol and Drug Abuse Patient Records regulations: The Federal rules restrict any use of the information to criminally investigate or prosecute any alcohol or drug abuse patient.[facility] the event this information is protected by the Federal Confidentiality of Alcohol and Drug Abuse Patient Records regulations: The Federal rules restrict any use of the information to criminally investigate or prosecute any alcohol or drug abuse patient.[facility] the event this information is protected by the Federal Confidentiality of Alcohol and Drug Abuse Patient Records regulations: The Federal rules restrict any use of the information to criminally investigate or prosecute any alcohol or drug abuse patient.[facility] Reason for Visit (unrecogniz ed section and content) Reason Onset Date Comments Refill Request 02/06/2022 Reason Comments Returning Patient's Call Reason Comments Follow Up Specialty Diagnoses / Procedures Referred By Contac t Referred To Contact Diagnoses Other specified hearing loss, unspecified ear Procedures ADULT HEARING TEST/AUDIOGRAM COMPRE AUDIOMETRY THRESHOLD HOAL Gifty Hartmann MD [address] [place] [address] [facility] [address] [place] [address] Referral ID Status Reason Start Date Expiration Date V isits Requested Visits Authorized [id number] Closed Auto-Generate d Referral 12/17/2021 03/17/2022 1 1 Reason Comments Follow Up Established Patient 5 month follow-up.pt states he get ear infection every month. Reason Comments Sinus Problem Recurrent since infe ctions. Ear Pain Right ear Specialty Diagnoses / Procedures Referred By Joanthan t Referred To Contact Ent - Otolaryngology Diagnoses Acute recurrent frontal sinusitis Procedures CONSULT TO ENT OFFICE/OUTPATIENT [facility] 60-74 MINUTES Partha Jackson PA-C [address] [place] [address] Referral ID Status Reason Start Date Expiration Date Visits Requested Visits Authorized [id number] Pending Review PCP Requested Referral 08/19/2022 08/19/2023 1 1 Reason Comments Patient Question Orders Specialty Diagnoses / Procedures Referred By Jonathan t Referred To Contact Radiology / RADIO CT SCAN [facility] Diagnoses 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 Comments CT TEMP BONES WO IVCON Procedures CT WO [address] Gifty Couch MD [address] [place] [address] [facility] [address] [place] [address] Referral ID Status Reason Start Date Expiration Date Visits Re quested Visits Authorized [id number] Closed 03/06/2021 10/18/2021 1 1 Reason Onset Date Comments Refill Request 06/01/2023 Specialty Diagnoses / Procedures Referred By Jonathan t Referred To Contact [facility] [address] [place] [address] Referral ID Status Reason Start Date Expiration Date Visits Re quested Visits Authorized [id number] 1 1 Care Teams (unrecognized sec tion and content) Content Curator Relationship Specialty Start Date End Date Regan Ortega PCP - General Family Practice 10/11/19 Content Curator Relationship Specialty Start Date End Date Regan Ortega PCP - General Family Practice 10/11/19 Content Curator Relationship Specialty Start Date End Date Joshua Regan Vilchis PCP - General Family Practice 10/11/19 Content Curator Relationship Specialty Start Date End Date JoshuaRegan PCP - General Family Practice 10/11/19 Content Curator Relationship Specialty Start Date End Date Joshua Regan Vilchis PCP - General Family Medicine 10/11/19 Content Curator Relationship Specialty Start Date End Date JoshuaRegan PCP - General Family Medicine 10/11/19 Content Curator Relationship Specialty Start Date End Date JoshuaRegan PCP - General Family Medicine 10/11/19 Content Curator Relationship Specialty Start Date End Date JoshuaRegan PCP - General Family Medicine 10/11/19 Team Status: Active Member Role Status Dates Shaikh Maine MD Primary Care Provider Active Team Status: Inactive Member Role Status Dates Shaikh Maine MD Primary Care Provider Active Agustin Nj MD Attending Provider Active Content Curator Relationship Specialty Start Date End Date JoshuaRegan PCP - General Family Medicine 10/11/19 Content Curator Relationship Specialty Start Date End Date Regan Ortega PCP - General Family Medicine 10/11/19 Content Curator Relationship Specialty Start Date End Date Jairo Tapia DO [address] [place] [id number] PCP - General 09/28/15 Content Curator Relationship Specialty Start Date End Date Jairo Tapia DO [address] [place], [place] [id number] PCP - General 09/28/15 Content Curator Relationship Specialty Start Date End Date Jairo Tapia DO [address] [place] [address] PCP - General 09/28/15 Content Curator Relationship Specialty Start Date End Date Jairo Tapia, [address] [place] [address] [facility] 09/28/15 Goals (unrecognized section and content) [...] BE BASED ON THE PRIMARY CLINICAL RECORDS. [facility] [employer] [facility]. provides no warranty or guarantee of the accuracy or completeness of information in this document.
--- NOTE | 2023-11-02 08:24 | US_ITS ---
The [address] [address] Patient Name: JOIE LANGSTON MRN: [id number] date: 1955 Sex: M Assigned Patient Location: [facility] Current Patient Location: Accession/Order Number: [id number] Exam Date: 11/02/2023 08:32 Report Date: 11/03/2023 07:41 At the request of: BALAJI BHAT Procedure: US venous doppler LE LT EXAM: US venous doppler LE LT HISTORY: Deep Vein Thrombosis COMPARISON: None. TECHNIQUE: Grayscale, color and Doppler ultrasound FINDINGS: Region: Left leg Thrombus: None Flow: Normal Augmentation: Normal Compressibility: Normal Other: Long the medial left knee is a complex solid and cystic mass measuring 11.0 x 5.8 x 4.3 cm. No definite internal blood flow. Moderate subcutaneous edema in the calf. US/US venous doppler LE LT IMPRESSION: No deep or superficial vein thrombus 11 cm heterogeneous solid and cystic fluid collection anteromedially of unknown etiology. Consider hematoma versus abscess Electronically authenticated by: DAVID GARY Date: 11/03/2023 07:41
== END 2023-11-02 08:15 | disposition home or self-care (01) ==
LOC: RAD 08:14
PROVIDERS: PCP Internal Medicine; Visit Provider Emergency Medicine
DX: M79.601 Pain in right arm (principal)
CPT/HCPCS: 73030; 93971

== ENCOUNTER 2023-11-02 09:40 | Outpatient (OUT) | payer OTHER, SELFPAY ==
--- NOTE | 2023-11-02 | XR_ITS ---
[address] [address] Patient Name: JOIE LANGSTON MRN: [id number] date: 1955 Sex: M Assigned Patient Location: RAD Current Patient Location: [facility] Accession/Order Number: [id number] Exam Date: 11/02/2023 09:45 Report Date: 11/02/2023 14:38 At the request of: JONAH GAVIRIA Procedure: XR shoulder RT min 2V 4 views of the right shoulder INDICATION: Pain COMPARISON: 06/12/2023 XR/XR shoulder RT min 2V IMPRESSION: Moderate degenerative changes of the right shoulder without evidence for acute fracture or dislocation. Soft tissues are grossly unremarkable. Electronically authenticated by: SUKUMAR SEGOVIA Date: 11/02/2023 14:38
--- OUTSIDE RECORDS SUMMARY | 2023-11-02 09:54 | XMS_ITS | CCD ---
Author Name Unknown Address [address] [place] [address] Organization [facility] Care Team Providers Care Project Management Instructor Name Role Phone PHYSICIAN, DEFAULT Unavailable Unavailable PHYSICIAN, DEFAULT Unavailable Unavailable Naderer, Regan A Primary Care Provider [phone] Agustin Nj Unavailable Marlin Vasquez Unavailable Naderer, [...] Unavailable MD Lalito Grove Primary Care Provider [phone] MD Agustin Nj Attending Provider NONE, XXXX [...] Attending Unavailable LAUREN SHETH Attending Unavailable Linden LEATHER STITCHER-BRIM RAISER, Linh Nichols Attending U christiano Simpson MD, Claudia Hall Admitting Jennifer Simpson MD, Claudia Hall Attending Starla Sheppard Consulting Unavailable Rubina WATERMAN, Johnny Pearson Consulting Unavailable Justin Mcgowan MD Consulting Unavailable Linden LEATHER STITCHER-BRIM RAISER, Linh Nichols Attending U christiano Beaulieu MD, Jose Francisco Coates Attending Unavaila ble Linden LEATHER STITCHER-BRIM RAISER, Linh Nichols Attending U navailable Linden LEATHER STITCHER-BRIM RAISER, Linh Nichols Attending U navailable Linden LEATHER STITCHER-BRIM RAISER, Linh Nichols Attending U christiano Cespedes MD, Johnny Pearson Attending Unavailable Linden MILLER-BRIM RAISER, Linh Nichols Attending U christiano Cespedes MD, Johnny Pearson Attending Unavailable Rubina WATERMAN, Johnny Pearson Attending Unavailable Linden LEATHER STITCHER-BRIM RAISER, Linh Nichols Attending U navailable Montero LEATHER STITCHER-BRIM RAISER, Lucía Delcid Attending Adina Beaulieu MD, Jose Francisco Coates Attending Unavaila ble Montero LEATHER STITCHER-BRIM RAISER, Lucía Delcid Attending Adina Cheatham APRN-BRIM RAISER, Linh Nichols Attending U navailable Linden LEATHER STITCHER-BRIM RAISER, Linh Nichols Attending U christiano Allergies Allergy Classification Reported Allergen(s) Allergy Type Date of Onset Reaction(s) Facility (20 sources) Morphine; 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: [MORPHINE] Drug Allergy 05-25-20 14 Rash, Itching [facility] (5 sources) Penicillins; 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: [PENICILLINS] Drug Allergy 01-17-20 15 Itching [facility] (12 sources) Bee Sting; 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: [BEE STING] Allergy to substance 08-18-20 18 Swelling, Anaphylaxis [facility] (6 sources) Amoxicillin / Clavulanate Drug Allergy rash [facility] Other (10 sources) Bee/Wasp/Ant venom; 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: [Bee Stings] Propensity to adverse reactions Difficulty breathing (finding) [facility] Repository (8 sources) cefdinir Drug Allergy Panic Attacks, Palpitations, SOB [facility] Other (6 sources) Penicillins Drug Allergy 01-17-20 15 Itching [facility] (1 source) Acetaminophen / HYDROcodone Drug Allergy [facility] Repository (1 source) bee venom Drug allergy (disorder) 09-23-20 16 [facility] Rep[facility] (1 source) Morphine Drug Allergy 05-12-20 14 [facility] Rep[facility] (1 source) Penicillins Drug allergy (disorder) 01-17-20 15 [facility] Rep[facility] (2 sources) Amoxicillin / Clavulanate Drug Allergy rash [facility] Other (1 source) Morphine Drug Allergy 04-14-20 23 [facility] Repository (1 source) No Known Medication Allergies; 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: [No Known Medication Allergies] Propensity to adverse reactions to drug (disorder) [facility] Repository Medications Current Medications Medication Drug Class(es) Dates Sig (Normalized) Sig (Original) [id number] 200 actuat albuterol 0.09 mg/actuat metered dose [...] Comment on above: Take 1 tablet by [facility] three times daily for 90 days. Take 1 tablet by [facility] three times daily for 180 days. doxycycline monohydrate 100 mg oral tablet (6 sources) Tetracycline-cla ss Drug Start: 11-06-2022 End: 11-16-2022 take 1 tablet by mouth twice daily doxycycline monohydrate 100 mg tablet Take 1 tablet by mouth twice daily for 10 days. 20 tablet 0 11/06/2022 11/16/2022 Active Start: 04-09-2022 take 1 capsule by [facility] every twelve hours Doxycycline Hyclate 100 MG 1 capsule Orally Twice a day for 10 day(s) Mar, Active Comment on above: Take 1 tablet by [facility] twice daily for 10 days. famotidine [...] Status: Ordered take 1 capsule by mo [facility] three times daily gabapentin (NEURONTIN) 300 mg capsule Ta ke 300 mg by mouth three times daily. 0 Active take 3 capsules by m [facility] every twenty-four hours Neurontin 100 mg [...] 0 Active take 1 capsule by mo [facility] once daily before breakfast Levothyroxine Sodium 125 [...] days, # 50 tab(s), Refills(s) 2, Pharmacy: [facility], 187.5, cm, 03/27/23 9:49:00 EDT, Height/Length [...] Start: 02-03-2023 take 1 capsule by mo [facility] every twenty-four hours Venlafaxine HCl ER 75 [...] Comment on above: Take 1 tablet by [facility] every 8 hours as needed for pain. aspirin 81 mg chewable tablet (10 sources) Platelet Aggregation Inhibitor, Nonsteroidal Anti-inflammatory Drug Start: 06-08-2014 take 1 tablet by mouth twice daily aspirin 81 mg chewable tablet Take 1 tablet by mouth twice daily. 56 tablet 0 06/08/2014 Active Comment on above: Take 1 tablet by [facility] twice daily. azelastine hydrochloride 0.137 mg/actuat [...] 11-10-2012 Chronic Other aftercare (1 source) Other assisted (current) drug therapy; 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: [OTH COLOR CHECKER ROVING OR YARN CURRENT DRUG THERAPY] Onset: 02-17-2023 Episodic Other aftercare (2 sources) [employer] (current) use of anticoagulants; 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: [assisted (current) use of anticoagulants] Onset: 06-10-2023 Episodic [...] (5 sources) Drug therapy finding; 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: [Other [employer] (current) drug therapy] Onset: 12-01-2012 Episodic Other [...] Office/Clinic Note Chief Complaint skilled pt at [facility] seen to d/c 09/03 with Med 1 NEY martinez f/U PCP Dr Grove History of Present Illness Joie Lu is a 68 year old male skilled patient of the [facility] being seen today for facility discharge visit. Noted last hospitalization at [facility] from 07/21/23-07/30/23. Pertinent past medical history includes: Type 2 diabetes mellitus, hypertension, gout, depression with anxiety, COPD with emphysema. Originally underwent right knee replacement 3 weeks prior and presented to outside hospital for increasing pain with edema in which she was transferred to [facility] for further eval. Patient found to have [...] twice daily Metformin 850 mg twice daily [place] diabetic diet 4. Hypertension Stable, follow up [...] Physician Comments Patient to discharge home with [facility] services Social (more content not included)... Normal [facility] .eGFRon 08-31-2023 GFR/1.73 sq M.predicted MDRD (S/P/Bld) [Vol rate/Area] mL/min/{1.73_m2} Normal >=60 [facility] Comment on above: Result Comment: [facility] Laboratories have implemented the eGFR calculation approach [...] years Performed By: #### E GFR #### [place] [id number] CBC w/ Diffon 08-31-2023 Erythrocyte distribution width (RBC) [Ratio] 13.9 % Normal 11.6-14.8 [facility] Comment on above: Performed By: #### E GFR #### [place] [id number] Hematocrit (Bld) [Volume fraction] 36.6 % Low 41.0-53.0 [facility] Comment on above: Performed By: #### E GFR #### [place] [id number] Hemoglobin (Bld) [Mass/Vol] 12.2 g/dL Low 13.5-17.5 [facility] Comment on above: Performed By: #### E GFR #### [address] [address] MCH (RBC) [Entitic mass] 30.1 pg Normal 27.0-35.0 [facility] Comment on above: Performed By: #### E GFR #### [place] [id number] MCHC 33.3 % Normal 31.0-37.0 [facility] Comment on above: Performed By: #### E GFR #### [address] [address] MCV (RBC) [Entitic vol] 90.4 fL Normal 80.0-100.0 [facility] Comment on above: Performed By: #### E GFR #### [place] [id number] Platelet 138 x10*3/mcL Low 150-450 [facility] Comment on above: Performed By: #### E GFR #### [address] [address] Platelet mean volume (Bld) [Entitic vol] 8.4 fL Normal 6.7-10.6 [facility] Comment on above: Performed By: #### E GFR #### [address] [address] RBC 4.05 x10*6/mcL Low 4.30-5.80 [facility] Comment on above: Performed By: #### E GFR #### [address] [address] WBC 6.9 x10*3/mcL Normal 4.5-11.0 [facility] Comment on above: Performed By: #### E GFR #### [address] [address] CMPon 08-31-2023 Albumin [Mass/Vol] 3.7 g/dL Normal 3.2-4.9 [facility] Comment on above: Performed By: #### C OMP ####[address] [address] Albumin/Globulin [Mass ratio] 1.2 {ratio} Normal 1.1-2.2 [facility] Comment on above: Performed By: #### C OMP ####[address] [address] Alk Phos 83 IU/L Normal 32-91 [facility] Comment on above: Performed By: #### C OMP ####[address] [address] ALT [Catalytic activity/Vol] 14 U/L Low 17-63 [facility] Comment on above: Performed By: #### C OMP ####[address] [address] Anion gap [Moles/Vol] 11 mmol/L Normal 7-17 [facility] Comment on above: Performed By: #### C OMP ####[address] [address] AST [Catalytic activity/Vol] 16 U/L Normal 15-41 [facility] Comment on above: Performed By: #### C OMP ####[address] [address] Bili Total 0.3 mg/dL Normal 0.3-1.2 [facility] Comment on above: Performed By: #### C OMP ####[address] [address] Calcium [Mass/Vol] 8.8 mg/dL Normal 8.5-10.3 [facility] Comment on above: Performed By: #### C OMP ####[address] [address] Chloride [Moles/Vol] 99 mmol/L Normal 98-110 [facility] Comment on above: Performed By: #### C OMP ####[address] [address] CO2 [Moles/Vol] 26 mmol/L Normal 22-32 [facility] Comment on above: Performed By: #### C OMP ####[address] [address] Creatinine [Mass/Vol] 0.78 mg/dL Normal 0.61-1.24 [facility] Comment on above: Performed By: #### C OMP ####[address] [address] Glucose [Mass/Vol] 211 mg/dL High 70-99 [facility] Comment on above: Performed By: #### C OMP ####[address] [address] Potassium [Moles/Vol] 4.3 mmol/L Normal 3.4-4.8 [facility] Comment on above: Performed By: #### C OMP ####[address] [address] Protein [Mass/Vol] 6.7 g/dL Normal 6.5-8.1 [facility] Comment on above: Performed By: #### C OMP ####[address] [address] Sodium [Moles/Vol] 132 mmol/L Low 133-142 [facility] Comment on above: Performed By: #### C OMP ####[address] [address] Urea nitrogen [Mass/Vol] 19 mg/dL Normal 8-26 [facility] Comment on above: Performed By: #### C OMP ####[address] [address] Urea nitrogen/Creatinine [Mass ratio] 24.4 mg/mg High 10.0-20.0 [facility] Comment on above: Performed By: #### C OMP ####[address] [address] CRPon 08-31-2023 CRP 0.61 mg/dL Normal 0.00-0.75 [facility] Comment on above: Result Comment: CRP measurement is useful for assessment of non-specific INFLAMMATORY RESPONSE to infection or injury AND is a sensitive MARKER of ACUTE INFLAMMATION including CARDIAC RISK ASSESSMENT. CARDIAC patients with elevated CRP are POTENTIALLY at a HIGHER RISK OF FUTURE CARDIAC EVENTS. Performed By: #### M G #### [address] [address] Diff Autoon 08-31-2023 Baso Absolute 0.1 x10*3/mcL Normal 0.0-0.2 [facility] Comment on above: Performed By: #### E GFR #### [address] [address] Basophils/100 WBC (Bld) 1.2 % Normal 0.0-1.2 [facility] Comment on above: Performed By: #### E GFR #### [address] [address] Eos Absolute 0.5 x10*3/mcL High 0.0-0.4 [facility] Comment on above: Performed By: #### E GFR #### [address] [address] Eosinophils/100 WBC (Bld) 8.0 % High 0.0-6.1 [facility] Comment on above: Performed By: #### E GFR #### [address] [address] Lymph Absolute 1.5 x10*3/mcL Normal 1.0-4.8 [facility] Comment on above: Performed By: #### E GFR #### [address] [address] Lymphocytes/100 WBC (Bld) 21.2 % Low 27.2-40.8 [facility] Comment on above: Performed By: #### E GFR #### [address] [address] Bond Absolute 0.7 x10*3/mcL Normal 0.3-1.1 [facility] Comment on above: Performed By: #### E GFR #### [address] [address] Monocytes/100 WBC (Bld) 10.1 % Normal 4.7-13.9 [facility] Comment on above: Performed By: #### E GFR #### [address] [address] Neutro Absolute 4.1 x10*3/mcL Normal 1.8-7.7 [facility] Comment on above: Performed By: #### E GFR #### [address] [address] Neutro Auto 59.5 % Normal 47.2-70.8 [facility] Comment on above: Performed By: #### E GFR #### [address] [address] ESRon 08-31-2023 Sed Rate 10 mm/hr Normal 0-23 [facility] Comment on above: Performed By: #### C [id number] #### [address] [address] Vanco Troughon 08-31-2023 Vanco Trough 15.70 mcg/mL High 10.00-15.00 [facility] Comment on above: Performed By: #### V ANCT ####[address] [address] .eGFRon 08-27-2023 GFR/1.73 sq M.predicted MDRD (S/P/Bld) [Vol rate/Area] mL/min/{1.73_m2} Normal >=60 [facility] Comment on above: Result Comment: [facility] Laboratories have implemented the eGFR calculation approach [...] years Performed By: #### E SR #### [address] [address] BUNon 08-27-2023 Urea nitrogen [Mass/Vol] 16 mg/dL Normal 8-26 [facility] Comment on above: Performed By: #### B UN ####[address] [address] Creatinineon 08-27-2023 Creatinine [Mass/Vol] 0.76 mg/dL Normal 0.61-1.24 [facility] Comment on above: Performed By: #### C CORNELIO ####[address] [address] Vanco Troughon 08-27-2023 Vanco Trough 11.40 mcg/mL Normal 10.00-15.00 [facility] Comment on above: Performed By: #### E SR #### [address] [address] .eGFRon 08-24-2023 GFR/1.73 sq M.predicted MDRD (S/P/Bld) [Vol rate/Area] mL/min/{1.73_m2} Normal >=60 [facility] Comment on above: Result Comment: [facility] Laboratories have implemented the eGFR calculation approach [...] years Performed By: #### M G #### [address] [address] CBC w/ Diffon 08-24-2023 Erythrocyte distribution width (RBC) [Ratio] 14.0 % Normal 11.6-14.8 [facility] Comment on above: Performed By: #### E SR #### [address] [address] Hematocrit (Bld) [Volume fraction] 36.3 % Low 41.0-53.0 [facility] Comment on above: Performed By: #### E SR #### [address] [address] Hemoglobin (Bld) [Mass/Vol] 12.1 g/dL Low 13.5-17.5 [facility] Comment on above: Performed By: #### E SR #### [address] [address] MCH (RBC) [Entitic mass] 30.6 pg Normal 27.0-35.0 [facility] Comment on above: Performed By: #### E SR #### [address] [address] MCHC 33.4 % Normal 31.0-37.0 [facility] Comment on above: Performed By: #### E SR #### [address] [address] MCV (RBC) [Entitic vol] 91.8 fL Normal 80.0-100.0 [facility] Comment on above: Performed By: #### E SR #### [address] [address] Platelet 127 x10*3/mcL Low 150-450 [facility] Comment on above: Performed By: #### E SR #### [address] [address] Platelet mean volume (Bld) [Entitic vol] 8.3 fL Normal 6.7-10.6 [facility] Comment on above: Performed By: #### E SR #### [address] [address] RBC 3.95 x10*6/mcL Low 4.30-5.80 [facility] Comment on above: Performed By: #### E SR #### [address] [address] WBC 6.8 x10*3/mcL Normal 4.5-11.0 [facility] Comment on above: Performed By: #### E SR #### [address] [address] CMPon 08-24-2023 Albumin [Mass/Vol] 3.5 g/dL Normal 3.2-4.9 [facility] Comment on above: Performed By: #### C OMP ####[address] [address] Albumin/Globulin [Mass ratio] 1.1 {ratio} Normal 1.1-2.2 [facility] Comment on above: Performed By: #### C OMP ####[address] [address] Alk Phos 86 IU/L Normal 32-91 [facility] Comment on above: Performed By: #### C OMP ####[address] [address] ALT [Catalytic activity/Vol] 18 U/L Normal 17-63 [facility] Comment on above: Performed By: #### C OMP ####[address] [address] Anion gap [Moles/Vol] 14 mmol/L Normal 7-17 [facility] Comment on above: Performed By: #### C OMP ####[address] [address] AST [Catalytic activity/Vol] 20 U/L Normal 15-41 [facility] Comment on above: Performed By: #### C OMP ####[address] [address] Bili Total 0.2 mg/dL Low 0.3-1.2 [facility] Comment on above: Performed By: #### C OMP ####[address] [address] Calcium [Mass/Vol] 9.0 mg/dL Normal 8.5-10.3 [facility] Comment on above: Performed By: #### C OMP ####[address] [address] Chloride [Moles/Vol] 98 mmol/L Normal 98-110 [facility] Comment on above: Performed By: #### C OMP ####[address] [address] CO2 [Moles/Vol] 26 mmol/L Normal 22-32 [facility] Comment on above: Performed By: #### C OMP ####[address] [address] Creatinine [Mass/Vol] 0.80 mg/dL Normal 0.61-1.24 [facility] Comment on above: Performed By: #### C OMP ####[address] [address] Glucose [Mass/Vol] 243 mg/dL High 70-99 [facility] Comment on above: Performed By: #### C OMP ####[address] [address] Potassium [Moles/Vol] 4.8 mmol/L Normal 3.4-4.8 [facility] Comment on above: Performed By: #### C OMP ####[address] [address] Protein [Mass/Vol] 6.8 g/dL Normal 6.5-8.1 [facility] Comment on above: Performed By: #### C OMP ####[address] [address] Sodium [Moles/Vol] 133 mmol/L Normal 133-142 [facility] Comment on above: Performed By: #### C OMP ####[address] [address] Urea nitrogen [Mass/Vol] 17 mg/dL Normal 8-26 [facility] Comment on above: Performed By: #### C OMP ####[address] [address] Urea nitrogen/Creatinine [Mass ratio] 21.2 mg/mg High 10.0-20.0 [facility] Comment on above: Performed By: #### C OMP ####[address] [address] CRPon 08-24-2023 CRP 0.98 mg/dL High 0.00-0.75 [facility] Comment on above: Result Comment: CRP measurement is useful for assessment of non-specific INFLAMMATORY RESPONSE to infection or injury AND is a sensitive MARKER of ACUTE INFLAMMATION including CARDIAC RISK ASSESSMENT. CARDIAC patients with elevated CRP are POTENTIALLY at a HIGHER RISK OF FUTURE CARDIAC EVENTS. Performed By: #### C RP ####[address] [address] Diff Autoon 08-24-2023 Baso Absolute 0.1 x10*3/mcL Normal 0.0-0.2 [facility] Comment on above: Performed By: #### . Automated Diff ####[address] [address] Basophils/100 WBC (Bld) 1.1 % Normal 0.0-1.2 [facility] Comment on above: Performed By: #### . Automated Diff ####[address] [address] Eos Absolute 0.6 x10*3/mcL High 0.0-0.4 [facility] Comment on above: Performed By: #### . Automated Diff ####[address] [address] Eosinophils/100 WBC (Bld) 9.0 % High 0.0-6.1 [facility] Comment on above: Performed By: #### . Automated Diff ####[address] [address] Lymph Absolute 1.2 x10*3/mcL Normal 1.0-4.8 [facility] Comment on above: Performed By: #### . Automated Diff ####[address] [address] Lymphocytes/100 WBC (Bld) 18.2 % Low 27.2-40.8 [facility] Comment on above: Performed By: #### . Automated Diff ####[address] [address] Bond Absolute 0.6 x10*3/mcL Normal 0.3-1.1 [facility] Comment on above: Performed By: #### . Automated Diff ####[address] [address] Monocytes/100 WBC (Bld) 8.1 % Normal 4.7-13.9 [facility] Comment on above: Performed By: #### . Automated Diff ####[address] [address] Neutro Absolute 4.3 x10*3/mcL Normal 1.8-7.7 [facility] Comment on above: Performed By: #### . Automated Diff ####[place] [id number] Neutro Auto 63.6 % Normal 47.2-70.8 [facility] Comment on above: Performed By: #### . Automated Diff ####[place] [id number] ESRon 08-24-2023 Sed Rate 13 mm/hr Normal 0-23 [facility] Comment on above: Performed By: #### E SR #### [address] [address] Vanco Troughon 08-24-2023 Vanco Trough 14.40 mcg/mL Normal 10.00-15.00 [facility] Comment on above: Performed By: #### V ANCT ####[address] [address] Vanco Troughon 08-21-2023 Vanco Trough 35.70 mcg/mL High 10.00-15.00 [facility] Comment on above: Performed By: #### V ANCT ####[place] [id number] .eGFRon 08-20-2023 GFR/1.73 sq M.predicted MDRD (S/P/Bld) [Vol rate/Area] mL/min/{1.73_m2} Normal >=60 [facility] Comment on above: Result Comment: [facility] Laboratories have implemented the eGFR calculation approach [...] = years Performed By: #### E GFR ####[address] [address] C Fungalon 08-20-2023 C Fungal -- - Final No growth at 4 weeks. Normal [facility] Comment on above: Performed By: #### F C ####[address] [address] [facility] Albumin [Mass/Vol] 3.4 g/dL Normal 3.2-4.9 [facility] Comment on above: Performed By: #### E SR #### [address] [address] Albumin/Globulin [Mass ratio] 1.1 {ratio} Normal 1.1-2.2 [facility] Comment on above: Performed By: #### E SR #### [address] [address] Alk Phos 88 IU/L Normal 32-91 [facility] Comment on above: Performed By: #### E SR #### [address] [place] [address] ALT [Catalytic activity/Vol] 25 U/L Normal 17-63 [facility] Comment on above: Performed By: #### E SR #### [address] [place] [address] Anion gap [Moles/Vol] 13 mmol/L Normal 7-17 [facility] Comment on above: Performed By: #### E SR #### [address] [place] [address] AST [Catalytic activity/Vol] 23 U/L Normal 15-41 [facility] Comment on above: Performed By: #### E SR #### [address] [address] Bili Total 0.3 mg/dL Normal 0.3-1.2 [facility] Comment on above: Performed By: #### E SR #### [address] [place] [address] Calcium [Mass/Vol] 8.8 mg/dL Normal 8.5-10.3 [facility] Comment on above: Performed By: #### E SR #### [address] [place] [address] Chloride [Moles/Vol] 99 mmol/L Normal 98-110 [facility] Comment on above: Performed By: #### E SR #### [address] [place] [address] CO2 [Moles/Vol] 24 mmol/L Normal 22-32 [facility] Comment on above: Performed By: #### E SR #### [address] [place] [address] Creatinine [Mass/Vol] 0.72 mg/dL Normal 0.61-1.24 [facility] Comment on above: Performed By: #### E SR #### [address] [place] [address] Glucose [Mass/Vol] 260 mg/dL High 70-99 [facility] Comment on above: Performed By: #### E SR #### [address] [address] Potassium [Moles/Vol] 5.3 mmol/L High 3.4-4.8 [facility] Comment on above: Performed By: #### E SR #### [address] [address] Protein [Mass/Vol] 6.4 g/dL Low 6.5-8.1 [facility] Comment on above: Performed By: #### E SR #### [address] [address] Sodium [Moles/Vol] 131 mmol/L Low 133-142 [facility] Comment on above: Performed By: #### E SR #### [address] [address] Urea nitrogen [Mass/Vol] 14 mg/dL Normal 8-26 [facility] Comment on above: Performed By: #### E SR #### [address] [address] Urea nitrogen/Creatinine [Mass ratio] 19.4 mg/mg Normal 10.0-20.0 [facility] Comment on above: Performed By: #### E SR #### [address] [address] Vanco Levelon 08-20-2023 Vanco Lvl 35.7 mcg/mL Normal 10.0-40.0 [facility] Comment on above: Result Comment: Ther apeutic Range for Vancomycin: Peak: 20.0 - 40.0 mcg/mL Trough: 10.0 - 15.0 mcg/mL Performed By: #### V ANC ####[address] [address] C Fungalon 08-19-2023 C Fungal -- - Final No growth at 4 weeks. Normal [facility] Comment on above: Performed By: #### F C ####[address] [address] .eGFRon 08-17-2023 GFR/1.73 sq M.predicted MDRD (S/P/Bld) [Vol rate/Area] mL/min/{1.73_m2} Normal >=60 [facility] Comment on above: Result Comment: [facility] Laboratories have implemented the eGFR calculation approach [...] = years Performed By: #### E GFR ####[address] [address] CBC w/ Diffon 08-17-2023 Erythrocyte distribution width (RBC) [Ratio] 14.3 % Normal 11.6-14.8 [facility] Comment on above: Performed By: #### E GFR #### [address] [address] Hematocrit (Bld) [Volume fraction] 35.5 % Low 41.0-53.0 [facility] Comment on above: Performed By: #### E GFR #### [address] [address] Hemoglobin (Bld) [Mass/Vol] 12.0 g/dL Low 13.5-17.5 [facility] Comment on above: Performed By: #### E GFR #### [place] [id number] MCH (RBC) [Entitic mass] 31.1 pg Normal 27.0-35.0 [facility] Comment on above: Performed By: #### E GFR #### [place] [address] MCHC 33.9 % Normal 31.0-37.0 [facility] Comment on above: Performed By: #### E GFR #### [place] [id number] MCV (RBC) [Entitic vol] 91.8 fL Normal 80.0-100.0 [facility] Comment on above: Performed By: #### E GFR #### [place] [address] Platelet 139 x10*3/mcL Low 150-450 [facility] Comment on above: Performed By: #### E GFR #### [place] [address] Platelet mean volume (Bld) [Entitic vol] 8.4 fL Normal 6.7-10.6 [facility] Comment on above: Performed By: #### E GFR #### [place] [id number] RBC 3.87 x10*6/mcL Low 4.30-5.80 [facility] Comment on above: Performed By: #### E GFR #### [place] [id number] WBC 6.2 x10*3/mcL Normal 4.5-11.0 [facility] Comment on above: Performed By: #### E GFR #### [place] [id number] CMPon 08-17-2023 Albumin [Mass/Vol] 3.7 g/dL Normal 3.2-4.9 [facility] Comment on above: Performed By: #### C OMP ####[address] [address] Albumin/Globulin [Mass ratio] 1.1 {ratio} Normal 1.1-2.2 [facility] Comment on above: Performed By: #### C OMP ####[address] [address] Alk Phos 101 IU/L High 32-91 [facility] Comment on above: Performed By: #### C OMP ####[address] [address] ALT [Catalytic activity/Vol] 27 U/L Normal 17-63 [facility] Comment on above: Performed By: #### C OMP ####[address] [address] Anion gap [Moles/Vol] 13 mmol/L Normal 7-17 [facility] Comment on above: Performed By: #### C OMP ####[address] [address] AST [Catalytic activity/Vol] 23 U/L Normal 15-41 [facility] Comment on above: Performed By: #### C OMP ####[address] [address] Bili Total 0.3 mg/dL Normal 0.3-1.2 [facility] Comment on above: Performed By: #### C OMP ####[address] [address] Calcium [Mass/Vol] 8.8 mg/dL Normal 8.5-10.3 [facility] Comment on above: Performed By: #### C OMP ####[address] [address] Chloride [Moles/Vol] 97 mmol/L Low 98-110 [facility] Comment on above: Performed By: #### C OMP ####[address] [address] CO2 [Moles/Vol] 26 mmol/L Normal 22-32 [facility] Comment on above: Performed By: #### C OMP ####[address] [address] Creatinine [Mass/Vol] 0.70 mg/dL Normal 0.61-1.24 [facility] Comment on above: Performed By: #### C OMP ####[address] [address] Glucose [Mass/Vol] 119 mg/dL High 70-99 [facility] Comment on above: Performed By: #### C OMP ####[address] [address] Potassium [Moles/Vol] 4.4 mmol/L Normal 3.4-4.8 [facility] Comment on above: Performed By: #### C OMP ####[address] [address] Protein [Mass/Vol] 7.0 g/dL Normal 6.5-8.1 [facility] Comment on above: Performed By: #### C OMP ####[address] [address] Sodium [Moles/Vol] 132 mmol/L Low 133-142 [facility] Comment on above: Performed By: #### C OMP ####[address] [address] Urea nitrogen [Mass/Vol] 14 mg/dL Normal 8-26 [facility] Comment on above: Performed By: #### C OMP ####[address] [address] Urea nitrogen/Creatinine [Mass ratio] 20.0 mg/mg Normal 10.0-20.0 [facility] Comment on above: Performed By: #### C OMP ####[address] [address] CRPon 08-17-2023 CRP 1.33 mg/dL High 0.00-0.75 [facility] Comment on above: Result Comment: CRP measurement is useful for assessment of non-specific INFLAMMATORY RESPONSE to infection or injury AND is a sensitive MARKER of ACUTE INFLAMMATION including CARDIAC RISK ASSESSMENT. CARDIAC patients with elevated CRP are POTENTIALLY at a HIGHER RISK OF FUTURE CARDIAC EVENTS. Performed By: #### C RP ####[address] [address] Diff Autoon 08-17-2023 Baso Absolute 0.1 x10*3/mcL Normal 0.0-0.2 [facility] Comment on above: Performed By: #### . Automated Diff ####[address] [address] Basophils/100 WBC (Bld) 1.3 % High 0.0-1.2 [facility] Comment on above: Performed By: #### . Automated Diff ####[address] [address] Eos Absolute 0.7 x10*3/mcL High 0.0-0.4 [facility] Comment on above: Performed By: #### . Automated Diff ####[address] [address] Eosinophils/100 WBC (Bld) 12.0 % High 0.0-6.1 [facility] Comment on above: Performed By: #### . Automated Diff ####[address] [address] Lymph Absolute 1.4 x10*3/mcL Normal 1.0-4.8 [facility] Comment on above: Performed By: #### . Automated Diff ####[address] [address] Lymphocytes/100 WBC (Bld) 23.2 % Low 27.2-40.8 [facility] Comment on above: Performed By: #### . Automated Diff ####[address] [address] Bond Absolute 0.7 x10*3/mcL Normal 0.3-1.1 [facility] Comment on above: Performed By: #### . Automated Diff ####[address] [address] Monocytes/100 WBC (Bld) 11.1 % Normal 4.7-13.9 [facility] Comment on above: Performed By: #### . Automated Diff ####[address] [address] Neutro Absolute 3.2 x10*3/mcL Normal 1.8-7.7 [facility] Comment on above: Performed By: #### . Automated Diff ####[address] [address] Neutro Auto 52.4 % Normal 47.2-70.8 [facility] Comment on above: Performed By: #### . Automated Diff ####[address] [address] ESRon 08-17-2023 Sed Rate 15 mm/hr Normal 0-23 [facility] Comment on above: Performed By: #### M G #### [address] [address] Long-term Care Office/Clinic Noteon 08-17-2023 Long-term Care Office/Clinic Note Chief Complaint new skilled pt at [facility] History of Present Illness Patient is a 68-year-old new admission to [facility]. He was at [facility] July 21 through July 30. He had [...] able t (more content not included)... Normal [facility] Vanco Troughon 08-17-2023 Vanco Trough 20.80 mcg/mL High 10.00-15.00 [facility] Comment on above: Performed By: #### V ANCT ####[place] [address] .eGFRon 08-13-2023 GFR/1.73 sq M.predicted MDRD (S/P/Bld) [Vol rate/Area] mL/min/{1.73_m2} Normal >=60 [facility] Comment on above: Result Comment: [facility] have implemented the eGFR calculation approach [...] Age = years Performed By: #### C [id number] #### [facility] [address] [place] [address] BUNon 08-13-2023 Urea nitrogen [Mass/Vol] 14 mg/dL Normal 06-13 [facility] Comment on above: Performed By: #### B UN ####[place] [address] Creatinineon 08-13-2023 Creatinine [Mass/Vol] 0.75 mg/dL Normal 0.61-1.24 [facility] Comment on above: Performed By: #### C CORNELIO ####[place] [id number] Provider Letteron 08-13-2023 Provider Letter Re: Joie Lu Date of Visit: 08/13/2023 11:30:00 Dear , In regards to our mutual patient Joie Lu. Attached you will find the most recent office visit note. Please call if you have any questions or concerns. Sincerely, Linh CHAPIN [facility] [address] [address] Email: [email or web address] The following document(s) were included in the letter: August 13, 2023 11:38:55 EDT - (08/13/2023) Telehealth Office Visit Note Normal [facility] Vanco Troughon 08-13-2023 Vanco Trough 18.50 mcg/mL High 10.00-15.00 [facility] Comment on above: Performed By: #### V ANCT ####[facility] [place] [address] .eGFRon 08-10-2023 GFR/1.73 sq M.predicted MDRD (S/P/Bld) [Vol rate/Area] mL/min/{1.73_m2} Normal >=60 [facility] Comment on above: Result Comment: [facility] have implemented the eGFR calculation approach [...] years Performed By: #### E GFR #### [facility] [address] [place] [address] CBC w/ Diffon 08-10-2023 Erythrocyte distribution width (RBC) [Ratio] 14.4 % Normal 11.6-14.8 [facility] Comment on above: Performed By: #### C BC ####[facility] [place] [address] Hematocrit (Bld) [Volume fraction] 38.0 % Low 41.0-53.0 [facility] Comment on above: Performed By: #### C BC ####[place] [id number] Hemoglobin (Bld) [Mass/Vol] 12.6 g/dL Low 13.5-17.5 [facility] Comment on above: Performed By: #### C BC ####[place] 9110240 MCH (RBC) [Entitic mass] 30.1 pg Normal 27.0-35.0 [facility] Comment on above: Performed By: #### C BC ####[place] 9110240 MCHC 33.1 % Normal 31.0-37.0 [facility] Comment on above: Performed By: #### C BC ####[place] 9110240 MCV (RBC) [Entitic vol] 90.9 fL Normal 80.0-100.0 [facility] Comment on above: Performed By: #### C BC ####[place] [id number] Platelet 256 x10*3/mcL Normal 150-450 [facility] Comment on above: Performed By: #### C BC ####[address] [address] Platelet mean volume (Bld) [Entitic vol] 7.8 fL Normal 6.7-10.6 [facility] Comment on above: Performed By: #### C BC ####[address] [address] RBC 4.18 x10*6/mcL Low 4.30-5.80 [facility] Comment on above: Performed By: #### C BC ####[address] [address] WBC 7.0 x10*3/mcL Normal 4.5-11.0 [facility] Comment on above: Performed By: #### C BC ####[address] [address] CMPon 08-10-2023 Albumin [Mass/Vol] 3.8 g/dL Normal 3.2-4.9 [facility] Comment on above: Performed By: #### M G #### [address] [address] Albumin/Globulin [Mass ratio] 1.0 {ratio} Low 1.1-2.2 [facility] Comment on above: Performed By: #### M G #### [address] [address] Alk Phos 109 IU/L High 32-91 [facility] Comment on above: Performed By: #### M G #### [address] [address] ALT [Catalytic activity/Vol] 28 U/L Normal 17-63 [facility] Comment on above: Performed By: #### M G #### [address] [address] Anion gap [Moles/Vol] 13 mmol/L Normal 7-17 [facility] Comment on above: Performed By: #### M G #### [address] [address] AST [Catalytic activity/Vol] 26 U/L Normal 15-41 [facility] Comment on above: Performed By: #### M G #### [address] [address] Bili Total 0.6 mg/dL Normal 0.3-1.2 [facility] Comment on above: Performed By: #### M G #### [address] [address] Calcium [Mass/Vol] 9.3 mg/dL Normal 8.5-10.3 [facility] Comment on above: Performed By: #### M G #### [address] [address] Chloride [Moles/Vol] 101 mmol/L Normal 98-110 [facility] Comment on above: Performed By: #### M G #### [address] [address] CO2 [Moles/Vol] 26 mmol/L Normal 22-32 [facility] Comment on above: Performed By: #### M G #### [address] [address] Creatinine [Mass/Vol] 0.66 mg/dL Normal 0.61-1.24 [facility] Comment on above: Performed By: #### M G #### [address] [address] Glucose [Mass/Vol] 113 mg/dL High 70-99 [facility] Comment on above: Performed By: #### M G #### [address] [address] Potassium [Moles/Vol] 4.4 mmol/L Normal 3.4-4.8 [facility] Comment on above: Performed By: #### M G #### [address] [address] Protein [Mass/Vol] 7.7 g/dL Normal 6.5-8.1 [facility] Comment on above: Performed By: #### M G #### [address] [address] Sodium [Moles/Vol] 136 mmol/L Normal 133-142 [facility] Comment on above: Performed By: #### M G #### [address] [address] Urea nitrogen [Mass/Vol] 13 mg/dL Normal 8-26 [facility] Comment on above: Performed By: #### M G #### [address] [address] Urea nitrogen/Creatinine [Mass ratio] 19.7 mg/mg Normal 10.0-20.0 [facility] Comment on above: Performed By: #### M G #### [address] [address] CRPon 08-10-2023 CRP 1.34 mg/dL High 0.00-0.75 [facility] Comment on above: Result Comment: CRP measurement is useful for assessment of non-specific INFLAMMATORY RESPONSE to infection or injury AND is a sensitive MARKER of ACUTE INFLAMMATION including CARDIAC RISK ASSESSMENT. CARDIAC patients with elevated CRP are POTENTIALLY at a HIGHER RISK OF FUTURE CARDIAC EVENTS. Performed By: #### C RP ####[address] [address] Diff Autoon 08-10-2023 Baso Absolute 0.1 x10*3/mcL Normal 0.0-0.2 [facility] Comment on above: Performed By: #### . Automated Diff ####[address] [address] Basophils/100 WBC (Bld) 1.2 % Normal 0.0-1.2 [facility] Comment on above: Performed By: #### . Automated Diff ####[address] [address] Eos Absolute 0.6 x10*3/mcL High 0.0-0.4 [facility] Comment on above: Performed By: #### . Automated Diff ####[address] [address] Eosinophils/100 WBC (Bld) 8.1 % High 0.0-6.1 [facility] Comment on above: Performed By: #### . Automated Diff ####[address] [address] Lymph Absolute 1.8 x10*3/mcL Normal 1.0-4.8 [facility] Comment on above: Performed By: #### . Automated Diff ####[address] [address] Lymphocytes/100 WBC (Bld) 25.2 % Low 27.2-40.8 [facility] Comment on above: Performed By: #### . Automated Diff ####[address] [address] Bond Absolute 0.6 x10*3/mcL Normal 0.3-1.1 [facility] Comment on above: Performed By: #### . Automated Diff ####[place] [address] Monocytes/100 WBC (Bld) 8.5 % Normal 4.7-13.9 [facility] Comment on above: Performed By: #### . Automated Diff ####[place] [address] Neutro Absolute 4.0 x10*3/mcL Normal 1.8-7.7 [facility] Comment on above: Performed By: #### . Automated Diff ####[place] [address] Neutro Auto 57.0 % Normal 47.2-70.8 [facility] Comment on above: Performed By: #### . Automated Diff ####[place] [address] ESRon 08-10-2023 Sed Rate 13 mm/hr Normal 0-23 [facility] Comment on above: Performed By: #### E GFR #### [place] [address] Vanco Troughon 08-10-2023 Vanco Trough 18.30 mcg/mL High 10.00-15.00 [facility] Comment on above: Performed By: #### V ANCT ####[place] [address] C Sterile BSon 08-09-2023 C Sterile BS -- - Final No growth at 2 weeks. Normal [facility] Comment on above: Performed By: #### S BSC ####[place] [address] .eGFRon 08-06-2023 GFR/1.73 sq M.predicted MDRD (S/P/Bld) [Vol rate/Area] mL/min/{1.73_m2} Normal >=60 [facility] Comment on above: Result Comment: [facility] have implemented the eGFR calculation approach [...] = years Performed By: #### E GFR ####[place] [id number] BUNon 08-06-2023 Urea nitrogen [Mass/Vol] 13 mg/dL Normal 8-26 [facility] Comment on above: Performed By: #### B UN ####[place] [id number] C ANAon 08-06-2023 C BRANDON -- - Final No anaerobic organisms isolated at 2 weeks Normal [facility] Comment on above: Performed By: #### A NAC ####[place] [address] C BRANDON -- - Final No anaerobic organisms isolated at 2 weeks Normal [facility] Comment on above: Performed By: #Jayla#Jayla Dickerson##[address] [place] [address] C BRANDON -- - Final No anaerobic organisms isolated at 2 weeks Normal [facility] Comment on above: Performed By: #### Mame HAMILTON ###[address] [place] [address] C BRANDON -- - Final No anaerobic organisms isolated at 2 weeks Normal [facility] Comment on above: Performed By: #### Mame HAMILTON ###[address] [place] [address] C BRANDON -- - Final No anaerobic organisms isolated at 2 weeks Normal [facility] Comment on above: Performed By: #Jayla#Jayla A ALFONSO ###[address] [place] [address] [place] TAYLOR -- - Final No anaerobic organisms isolated at 2 weeks Normal [facility] Comment on above: Performed By: ###Jayla HAMILTON ####[address] [place] [address] C Sterile BSon 08-06-2023 C Sterile BS -- - Final No growth at 2 weeks. Normal [facility] Comment on above: Performed By: #### Jacklyn CHAPMAN ####[address] [address] C Sterile BS -- - Final No growth at 2 weeks. Normal [facility] Comment on above: Performed By: #### S ADELA ####[address] [address] C Sterile BS -- - Final No growth at 2 weeks. Normal [facility] Comment on above: Performed By: #### S BSC ####[address] [address] Creatinineon 08-06-2023 Creatinine [Mass/Vol] 0.72 mg/dL Normal 0.61-1.24 [facility] Comment on above: Performed By: #### M Jose Angel #### [address] [address] Vanco Troughon 08-06-2023 Vanco Trough 21.30 mcg/mL High 10.00-15.00 [facility] Comment on above: Performed By: #### V ANCT ####[place] [address] Send-out: Otheron 08-04-2023 Send-out Other See Report Normal [facility] Comment on above: Order Comment: TEST ID : [id number] Range Bacterial PCR and Sequencing, Varies - synovial fluid iin lab Result Comment: Miss ing Attachment Chartable Reference Lab Reports Can be viewed in source system Performed By: #### S OOTH ####[place] [id number] .eGFRon 08-03-2023 GFR/1.73 sq M.predicted MDRD (S/P/Bld) [Vol rate/Area] mL/min/{1.73_m2} Normal >=60 [facility] Comment on above: Result Comment: [facility] have implemented the eGFR calculation approach [...] = years Performed By: #### E GFR ####[place] [id number] CBC w/ Diffon 08-03-2023 Erythrocyte distribution width (RBC) [Ratio] 14.6 % Normal 11.6-14.8 [facility] Comment on above: Performed By: #### E SR #### [address] [address] Hematocrit (Bld) [Volume fraction] 36.0 % Low 41.0-53.0 [facility] Comment on above: Performed By: #### E SR #### [address] [address] Hemoglobin (Bld) [Mass/Vol] 11.9 g/dL Low 13.5-17.5 [facility] Comment on above: Performed By: #### E SR #### [address] [address] MCH (RBC) [Entitic mass] 30.9 pg Normal 27.0-35.0 [facility] Comment on above: Performed By: #### E SR #### [address] [address] MCHC 33.1 % Normal 31.0-37.0 [facility] Comment on above: Performed By: #### E SR #### [address] [address] MCV (RBC) [Entitic vol] 93.3 fL Normal 80.0-100.0 [facility] Comment on above: Performed By: #### E SR #### [address] [address] Platelet 302 x10*3/mcL Normal 150-450 [facility] Comment on above: Performed By: #### E SR #### [address] [address] Platelet mean volume (Bld) [Entitic vol] 7.6 fL Normal 6.7-10.6 [facility] Comment on above: Performed By: #### E SR #### [address] [address] RBC 3.86 x10*6/mcL Low 4.30-5.80 [facility] Comment on above: Performed By: #### E SR #### [address] [address] WBC 12.2 x10*3/mcL High 4.5-11.0 [facility] Comment on above: Performed By: #### E SR #### [address] [address] CMPon 08-03-2023 Albumin [Mass/Vol] 3.3 g/dL Normal 3.2-4.9 [facility] Comment on above: Performed By: #### C [id number] #### [address] [address] Albumin/Globulin [Mass ratio] 0.9 {ratio} Low 1.1-2.2 [facility] Comment on above: Performed By: #### C [id number] #### [address] [address] Alk Phos 126 IU/L High 32-91 [facility] Comment on above: Performed By: #### C [id number] #### [address] [address] ALT [Catalytic activity/Vol] 43 U/L Normal 17-63 [facility] Comment on above: Performed By: #### C [id number] #### [address] [address] Anion gap [Moles/Vol] 13 mmol/L Normal 7-17 [facility] Comment on above: Performed By: #### C [id number] #### [address] [address] AST [Catalytic activity/Vol] 31 U/L Normal 15-41 [facility] Comment on above: Performed By: #### C [id number] #### [address] [address] Bili Total 0.2 mg/dL Low 0.3-1.2 [facility] Comment on above: Performed By: #### C [id number] #### [address] [address] Calcium [Mass/Vol] 9.0 mg/dL Normal 8.5-10.3 [facility] Comment on above: Performed By: #### C [id number] #### [address] [address] Chloride [Moles/Vol] 101 mmol/L Normal 98-110 [facility] Comment on above: Performed By: #### C [id number] #### [address] [address] CO2 [Moles/Vol] 24 mmol/L Normal 22-32 [facility] Comment on above: Performed By: #### C [id number] #### [address] [address] Creatinine [Mass/Vol] 0.73 mg/dL Normal 0.61-1.24 [facility] Comment on above: Performed By: #### C [id number] #### [address] [address] Glucose [Mass/Vol] 113 mg/dL High 70-99 [facility] Comment on above: Performed By: #### C [id number] #### [address] [address] Potassium [Moles/Vol] 4.6 mmol/L Normal 3.4-4.8 [facility] Comment on above: Performed By: #### C [id number] #### [address] [address] Protein [Mass/Vol] 6.9 g/dL Normal 6.5-8.1 [facility] Comment on above: Performed By: #### C [id number] #### [address] [address] Sodium [Moles/Vol] 133 mmol/L Normal 133-142 [facility] Comment on above: Performed By: #### C [id number] #### [address] [address] Urea nitrogen [Mass/Vol] 13 mg/dL Normal 8-26 [facility] Comment on above: Performed By: #### C [id number] #### [place] [id number] Urea nitrogen/Creatinine [Mass ratio] 17.8 mg/mg Normal 10.0-20.0 [facility] Comment on above: Performed By: #### C [id number] #### [address] [address] CRPon 08-03-2023 CRP 2.36 mg/dL High 0.00-0.75 [facility] Comment on above: Result Comment: CRP measurement is useful for assessment of non-specific INFLAMMATORY RESPONSE to infection or injury AND is a sensitive MARKER of ACUTE INFLAMMATION including CARDIAC RISK ASSESSMENT. CARDIAC patients with elevated CRP are POTENTIALLY at a HIGHER RISK OF FUTURE CARDIAC EVENTS. Performed By: #### M G #### [address] [address] Diff Autoon 08-03-2023 Baso Absolute 0.1 x10*3/mcL Normal 0.0-0.2 [facility] Comment on above: Performed By: #### . Automated Diff ####[address] [address] Basophils/100 WBC (Bld) 0.7 % Normal 0.0-1.2 [facility] Comment on above: Performed By: #### . Automated Diff ####[address] [address] Eos Absolute 0.6 x10*3/mcL High 0.0-0.4 [facility] Comment on above: Performed By: #### . Automated Diff ####[address] [address] Eosinophils/100 WBC (Bld) 4.6 % Normal 0.0-6.1 [facility] Comment on above: Performed By: #### . Automated Diff ####[address] [address] Lymph Absolute 1.8 x10*3/mcL Normal 1.0-4.8 [facility] Comment on above: Performed By: #### . Automated Diff ####[address] [address] Lymphocytes/100 WBC (Bld) 15.1 % Low 27.2-40.8 [facility] Comment on above: Performed By: #### . Automated Diff ####[address] [address] Bond Absolute 0.7 x10*3/mcL Normal 0.3-1.1 [facility] Comment on above: Performed By: #### . Automated Diff ####[address] [address] Monocytes/100 WBC (Bld) 6.0 % Normal 4.7-13.9 [facility] Comment on above: Performed By: #### . Automated Diff ####[address] [address] Neutro Absolute 8.9 x10*3/mcL High 1.8-7.7 [facility] Comment on above: Performed By: #### . Automated Diff ####[address] [address] Neutro Auto 73.6 % High 47.2-70.8 [facility] Comment on above: Performed By: #### . Automated Diff ####[address] [address] Diff Latia 08-03-2023 Band form neutrophils/100 WBC (Bld) 1 % Normal 0-5 [facility] Comment on above: Performed By: #### . Manual Diff ####[address] [address] Basophils/100 WBC (Bld) 0 % Normal 0-3 [facility] Comment on above: Performed By: #### . Manual Diff ####[address] [address] Eosinophils/100 WBC (Bld) 4 % Normal 0-7 [facility] Comment on above: Performed By: #### . Manual Diff ####[address] [address] Lymphocytes/100 WBC (Bld) 16 % Normal 14-42 [facility] Comment on above: Performed By: #### . Manual Diff ####[address] [address] Monocytes/100 WBC (Bld) 3 % Normal 1-11 [facility] Comment on above: Performed By: #### . Manual Diff ####[address] [address] Platelet estimate Adequate Normal [facility] Comment on above: Performed By: #### . Manual Diff ####[address] [address] RBC morphology finding Nom (Bld) Normal Normal [facility] Comment on above: Performed By: #### . Manual Diff ####[address] [address] Segs Man 76 % Normal 49-79 [facility] Comment on above: Performed By: #### . Manual Diff ####[address] [address] ESRon 08-03-2023 Sed Rate 31 mm/hr High 0-23 [facility] Comment on above: Performed By: #### E SR ####[address] [address] Vanco Troughon 08-03-2023 Vanco Trough 21.00 mcg/mL High 10.00-15.00 [facility] Comment on above: Performed By: #### E GFR #### [address] [address] Long-term Care Office/Clinic Noteon 07-31-2023 Long-term Care Office/Clinic Note Chief Complaint new skilled pt at [facility] History of Present Illness Joie Lu is a 68 year old male new skilled patient of the [facility] being seen today after hospitalization at [facility] from 07/21/23-07/30/23. Pertinent past medical history includes: Type 2 diabetes mellitus, hypertension, gout, depression with anxiety, COPD with emphysema. Originally underwent right knee replacement 3 weeks prior and presented to outside hospital for increasing pain with edema in which she was transferred to [facility] for further eval. Patient found to have [...] twice daily Metformin 850 mg twice daily [place] diabetic diet 6. Generalized muscle weakness PT/OT for stre (more content not included)... Normal [facility] .eGFRon 07-30-2023 GFR/1.73 sq M.predicted MDRD (S/P/Bld) [Vol rate/Area] mL/min/{1.73_m2} Normal >=60 [facility] Comment on above: Result Comment: [facility] have implemented the eGFR calculation approach [...] years Performed By: #### E GFR #### [facility] [address] [place] [address] Basic Metabolic Profileon Anion gap [Moles/Vol] 10 mmol/L Normal 7-17 [facility] Comment on above: Performed By: #### C [id number] ####[facility] [place] [address] Calcium [Mass/Vol] 8.8 mg/dL Normal 8.5-10.3 [facility] Comment on above: Performed By: #### C [id number] ####[place] [id number] [place] [address] Chloride [Moles/Vol] 103 mmol/L Normal 98-110 [facility] Comment on above: Performed By: #### C [id number] ####[address] [address] CO2 [Moles/Vol] 28 mmol/L Normal 22-32 [facility] Comment on above: Performed By: #### C [id number] ####[address] [address] Creatinine [Mass/Vol] 0.81 mg/dL Normal 0.61-1.24 [facility] Comment on above: Performed By: #### C D:[id number] ####[address] [address] Glucose [Mass/Vol] 171 mg/dL High 70-99 [facility] Comment on above: Performed By: #### C D:[id number] ####[address] [address] Potassium [Moles/Vol] 4.3 mmol/L Normal 3.4-4.8 [facility] Comment on above: Performed By: #### C D:[id number] ####[address] [address] Sodium [Moles/Vol] 137 mmol/L Normal 133-142 [facility] Comment on above: Performed By: #### C D:[id number] ####[address] [address] Urea nitrogen [Mass/Vol] 17 mg/dL Normal 8-26 [facility] Comment on above: Performed By: #### C D:[id number] ####[address] [address] Urea nitrogen/Creatinine [Mass ratio] 21.0 mg/mg High 10.0-20.0 [facility] Comment on above: Performed By: #### C D:[id number] ####[address] [address] CBCon 07-30-2023 Erythrocyte distribution width (RBC) [Ratio] 14.6 % Normal 11.6-14.8 [facility] Comment on above: Performed By: #### C D:[id number] #### [address] [address] Hematocrit (Bld) [Volume fraction] 30.2 % Low 41.0-53.0 [facility] Comment on above: Performed By: #### C D:[id number] #### [address] [address] Hemoglobin (Bld) [Mass/Vol] 10.2 g/dL Low 13.5-17.5 [facility] Comment on above: Performed By: #### C D:[id number] #### [address] [address] MCH (RBC) [Entitic mass] 30.9 pg Normal 27.0-35.0 [facility] Comment on above: Performed By: #### C D:[id number] #### [address] [address] MCHC 33.7 % Normal 31.0-37.0 [facility] Comment on above: Performed By: #### C D:[id number] #### [address] [address] MCV (RBC) [Entitic vol] 91.6 fL Normal 80.0-100.0 [facility] Comment on above: Performed By: #### C D:[id number] #### [address] [address] Platelet 238 x10*3/mcL Normal 150-450 [facility] Comment on above: Performed By: #### C D:[id number] #### [address] [address] Platelet mean volume (Bld) [Entitic vol] 6.7 fL Normal 6.7-10.6 [facility] Comment on above: Performed By: #### C D:[id number] #### [address] [address] RBC 3.30 x10*6/mcL Low 4.30-5.80 [facility] Comment on above: Performed By: #### C D:[id number] #### [facility] [address] [place] [address] WBC 8.2 x10*3/mcL Normal 4.5-11.0 [facility] Comment on above: Performed By: #### C D:[id number] #### [address] [place] [address] COV19 Rapidon 07-30-2023 LAB ONLY Result Called? No Normal [facility] Comment on above: Performed By: #### C D:[id number] ####[address] [address] Reason for Rapid Test Dischrg to LTC Normal [facility] Comment on above: Performed By: #### C D:[id number] ####[address] [address] SARS-CoV-2 (COVID-19) RNA RUTH+probe Ql (Unsp spec) Negative Normal Negative [facility] Comment on above: Result Comment: The 2019 [...] using the ID NOW COVID-19 test by [employer], which has received Emergency Use Authorization (EUA) [...] following links: Fact Sheet for HealthCare Providers: https://www.Uevoc.gov/media/627455/download Fact Sheet for Patients: https://www.Uevoc.gov/media/785368/download Performed By: #### C D:[id number] ####[facility] [place] [address] Inpatient Clinical Summaryon 07-30-2023 Inpatient Clinical Summary [facility] [address] [place] [address] [facility] [address] [place] [address] Clinical Summary Person Information Name: Joie Lu Age: 68 Years : 1955 Sex: Male PCP: Marital Status: Phone: PCP: Race: White Ethnicity: Not or Language: Martiniquais Visit Id: Visit Reason: Surgical problem Speciality: Acuity: Enc Type: Inpatient Med Service: Emergency Medicine Arrival: 07/21/2023 19:33:54 Discharge: Dispo Type: Address: [address] [place] [id number] Diagnosis: 1:Infection of knee; 2:Hyponatremia; 3:Status post [...] range between ( 27.2 and 40.8 ) Bond Auto: 8.1 % -- Normal range between ( 4.7 and 13.9 ) Eos Auto: 7.6 % -- Normal range between ( 0.0 and 6.1 ) Basophil Auto: 0.6 % -- Normal range between ( 0.0 and 1.2 ) Baso Absolute: 0.1 x10 Lymph Absolute: 1.4 x10 Bond Absolute: 0.8 x10 Neutro Absolute: 6.9 x10 [...] Sources 07/22/2023 7:09 PM Fluid RBC Count: 660143 /mcL Body Fluid Cell Cnt Type: Synovial Fluid WBC Count: 15901 /mcL -- Normal range between ( 0 [...] Heart Rate (more content not included)... Normal [facility] Magnesiumon 07-30-2023 Magnesium [Mass/Vol] 1.8 mg/dL Normal 1.7-2.4 [facility] Comment on above: Performed By: #### E GFR #### [facility] [address] [place] [address] Orthopedic Progress Noteon 1 Orthopedic Progress Note [...] 10.2. Hemodynamically stable. Asymptomatic. Anticipate discharge to [facility] today Outpatient follow-up in 2 weeks. Continue twice weekly wound VAC changes until discontinued by our office outpatient. 2. Hyponatremia 3. Status post revision of total replacement of right knee Electronically signed by Starla Marie PA-C 07/30/23 12:18 EDT Patient care discussed with Starla Marie PA-C. Agree with assessment and plan. Electronically signed by Justin Mcgowan MD 07/31/23 15:54 EDT Normal [facility] POC Glucose Randomon 023 Glucose [Mass/Vol] 233 mg/dL High 70-99 [facility] Comment on above: Performed By: #### C D:[id number] ####[id number] [place] [address] .eGFRon 07-29-2023 GFR/1.73 sq M.predicted MDRD (S/P/Bld) [Vol rate/Area] mL/min/{1.73_m2} Normal >=60 [facility] Comment on above: Result Comment: [facility] Laboratories have implemented the eGFR calculation approach [...] years Performed By: #### M G #### [address] [address] Basic Metabolic Profileon Anion gap [Moles/Vol] 11 mmol/L Normal 7-17 [facility] Comment on above: Performed By: #### C D:[id number] ####[address] [address] Calcium [Mass/Vol] 8.7 mg/dL Normal 8.5-10.3 [facility] Comment on above: Performed By: #### C D:[id number] ####[address] [address] Chloride [Moles/Vol] 103 mmol/L Normal 98-110 [facility] Comment on above: Performed By: #### C D:[id number] ####[address] [address] CO2 [Moles/Vol] 25 mmol/L Normal 22-32 [facility] Comment on above: Performed By: #### C D:[id number] ####[address] [address] Creatinine [Mass/Vol] 0.67 mg/dL Normal 0.61-1.24 [facility] Comment on above: Performed By: #### C D:[id number] ####[address] [address] Glucose [Mass/Vol] 140 mg/dL High 70-99 [facility] Comment on above: Performed By: #### C D:[id number] ####[address] [address] Potassium [Moles/Vol] 4.4 mmol/L Normal 3.4-4.8 [facility] Comment on above: Performed By: #### C D:[id number] ####[address] [address] Sodium [Moles/Vol] 135 mmol/L Normal 133-142 [facility] Comment on above: Performed By: #### C D:[id number] ####[address] [address] Urea nitrogen [Mass/Vol] 17 mg/dL Normal 8-26 [facility] Comment on above: Performed By: #### C D:[id number] ####[address] [address] Urea nitrogen/Creatinine [Mass ratio] 25.4 mg/mg High 10.0-20.0 [facility] Comment on above: Performed By: #### C D:[id number] ####[address] [address] CBC w/ Diffon 07-29-2023 Erythrocyte distribution width (RBC) [Ratio] 14.7 % Normal 11.6-14.8 [facility] Comment on above: Performed By: #### C BC ####[address] [address] Hematocrit (Bld) [Volume fraction] 30.7 % Low 41.0-53.0 [facility] Comment on above: Performed By: #### C BC ####[address] [address] Hemoglobin (Bld) [Mass/Vol] 10.4 g/dL Low 13.5-17.5 [facility] Comment on above: Performed By: #### C BC ####[address] [address] MCH (RBC) [Entitic mass] 30.9 pg Normal 27.0-35.0 [facility] Comment on above: Performed By: #### C BC ####[address] [address] MCHC 33.8 % Normal 31.0-37.0 [facility] Comment on above: Performed By: #### C BC ####[address] [address] MCV (RBC) [Entitic vol] 91.5 fL Normal 80.0-100.0 [facility] Comment on above: Performed By: #### C BC ####[address] [address] Platelet 245 x10*3/mcL Normal 150-450 [facility] Comment on above: Performed By: #### C BC ####[address] Platelet mean volume (Bld) [Entitic vol] 6.4 fL Low 6.7-10.6 [facility] Comment on above: Performed By: #### C BC ####[address] RBC 3.35 x10*6/mcL Low 4.30-5.80 [facility] Comment on above: Performed By: #### C BC ####[address] WBC 9.9 x10*3/mcL Normal 4.5-11.0 [facility] Comment on above: Performed By: #### C BC ####[address] Diff Autoon 07-29-2023 Baso Absolute 0.1 x10*3/mcL Normal 0.0-0.2 [facility] Comment on above: Performed By: #### . Automated Diff ####[address] [address] Basophils/100 WBC (Bld) 0.6 % Normal 0.0-1.2 [facility] Comment on above: Performed By: #### . Automated Diff ####[address] [address] Eos Absolute 0.8 x10*3/mcL High 0.0-0.4 [facility] Comment on above: Performed By: #### . Automated Diff ####[address] Eosinophils/100 WBC (Bld) 7.6 % High 0.0-6.1 [facility] Comment on above: Performed By: #### . Automated Diff ####[address] [address] Lymph Absolute 1.4 x10*3/mcL Normal 1.0-4.8 [facility] Comment on above: Performed By: #### . Automated Diff ####[address] [address] Lymphocytes/100 WBC (Bld) 14.5 % Low 27.2-40.8 [facility] Comment on above: Performed By: #### . Automated Diff ####[address] [address] Bond Absolute 0.8 x10*3/mcL Normal 0.3-1.1 [facility] Comment on above: Performed By: #### . Automated Diff ####[address] [address] Monocytes/100 WBC (Bld) 8.1 % Normal 4.7-13.9 [facility] Comment on above: Performed By: #### . Automated Diff ####[address] [address] Neutro Absolute 6.9 x10*3/mcL Normal 1.8-7.7 [facility] Comment on above: Performed By: #### . Automated Diff ####[address] Neutro Auto 69.2 % Normal 47.2-70.8 [facility] Comment on above: Performed By: #### . Automated Diff ####[address] ESRon 07-29-2023 Sed Rate 52 mm/hr High 0-23 [facility] Comment on above: Performed By: #### E SR ####[address] Orthopedic Progress Noteon 1 Orthopedic Progress Note [...] Justin Mcgowan MD 07/30/23 07:17 EDT Normal [facility] POC Glucose Randomon 023 Glucose [Mass/Vol] 168 mg/dL High 70-99 [facility] Comment on above: Performed By: #### E GFR #### [facility] [address] [place] [address] Glucose [Mass/Vol] 212 mg/dL High 70-99 [facility] Comment on above: Performed By: #### C D:[id number] ####[facility] [place] [address] Glucose [Mass/Vol] 189 mg/dL High 70-99 [facility] Comment on above: Performed By: #### C D:[id number] #### [facility] [address] [place] [address] .eGFRon 07-28-2023 GFR/1.73 sq M.predicted MDRD (S/P/Bld) [Vol rate/Area] mL/min/{1.73_m2} Normal >=60 [facility] Comment on above: Result Comment: [facility] Laboratories have implemented the eGFR calculation approach [...] years Performed By: #### E GFR #### [address] [address] GFR/1.73 sq M.predicted MDRD (S/P/Bld) [Vol rate/Area] mL/min/{1.73_m2} Normal >=60 [facility] Comment on above: Result Comment: [facility] Laboratories have implemented the eGFR calculation approach [...] years Performed By: #### E SR #### [address] [address] Basic Metabolic Profileon Anion gap [Moles/Vol] 10 mmol/L Normal 7-17 [facility] Comment on above: Performed By: #### E GFR #### [address] [address] Calcium [Mass/Vol] 8.5 mg/dL Normal 8.5-10.3 [facility] Comment on above: Performed By: #### E GFR #### [address] [address] Chloride [Moles/Vol] 100 mmol/L Normal 98-110 [facility] Comment on above: Performed By: #### E GFR #### [address] [address] CO2 [Moles/Vol] 26 mmol/L Normal 22-32 [facility] Comment on above: Performed By: #### E GFR #### [address] [address] Creatinine [Mass/Vol] 0.86 mg/dL Normal 0.61-1.24 [facility] Comment on above: Performed By: #### E GFR #### [address] [address] Glucose [Mass/Vol] 290 mg/dL High 70-99 [facility] Comment on above: Performed By: #### E GFR #### [address] [address] Potassium [Moles/Vol] 4.4 mmol/L Normal 3.4-4.8 [facility] Comment on above: Performed By: #### E GFR #### [address] [address] Sodium [Moles/Vol] 132 mmol/L Low 133-142 [facility] Comment on above: Performed By: #### E GFR #### [address] [address] Urea nitrogen [Mass/Vol] 18 mg/dL Normal 8-26 [facility] Comment on above: Performed By: #### E GFR #### [address] [address] Urea nitrogen/Creatinine [Mass ratio] 20.9 mg/mg High 10.0-20.0 [facility] Comment on above: Performed By: #### E GFR #### [address] [address] Anion gap [Moles/Vol] 12 mmol/L Normal 7-17 [facility] Comment on above: Performed By: #### C D:[id number] ####[address] [address] Calcium [Mass/Vol] 8.9 mg/dL Normal 8.5-10.3 [facility] Comment on above: Performed By: #### C D:[id number] ####[address] [address] Chloride [Moles/Vol] 104 mmol/L Normal 98-110 [facility] Comment on above: Performed By: #### C D:[id number] ####[address] [address] CO2 [Moles/Vol] 27 mmol/L Normal 22-32 [facility] Comment on above: Performed By: #### C D:[id number] ####[address] [address] Creatinine [Mass/Vol] 0.78 mg/dL Normal 0.61-1.24 [facility] Comment on above: Performed By: #### C D:[id number] ####[address] [address] Glucose [Mass/Vol] 134 mg/dL High 70-99 [facility] Comment on above: Performed By: #### C D:[id number] ####[address] [address] Potassium [Moles/Vol] 4.4 mmol/L Normal 3.4-4.8 [facility] Comment on above: Performed By: #### C D:[id number] ####[address] [address] Sodium [Moles/Vol] 139 mmol/L Normal 133-142 [facility] Comment on above: Performed By: #### C D:[id number] ####[address] [address] Urea nitrogen [Mass/Vol] 16 mg/dL Normal 8-26 [facility] Comment on above: Performed By: #### C D:[id number] ####[address] [address] Urea nitrogen/Creatinine [Mass ratio] 20.5 mg/mg High 10.0-20.0 [facility] Comment on above: Performed By: #### C D:[id number] ####[address] [address] CBCon 07-28-2023 Erythrocyte distribution width (RBC) [Ratio] 15.2 % High 11.6-14.8 [facility] Comment on above: Performed By: #### C BCI ####[address] [address] Hematocrit (Bld) [Volume fraction] 31.2 % Low 41.0-53.0 [facility] Comment on above: Performed By: #### C BCI ####[address] [address] Hemoglobin (Bld) [Mass/Vol] 10.4 g/dL Low 13.5-17.5 [facility] Comment on above: Performed By: #### C BCI ####[address] [address] MCH (RBC) [Entitic mass] 30.8 pg Normal 27.0-35.0 [facility] Comment on above: Performed By: #### C BCI ####[address] [address] MCHC 33.5 % Normal 31.0-37.0 [facility] Comment on above: Performed By: #### C BCI ####[address] [address] MCV (RBC) [Entitic vol] 91.9 fL Normal 80.0-100.0 [facility] Comment on above: Performed By: #### C BCI ####[address] [address] Platelet 252 x10*3/mcL Normal 150-450 [facility] Comment on above: Performed By: #### C BCI ####[address] [address] Platelet mean volume (Bld) [Entitic vol] 7.0 fL Normal 6.7-10.6 [facility] Comment on above: Performed By: #### C BCI ####[address] [address] RBC 3.39 x10*6/mcL Low 4.30-5.80 [facility] Comment on above: Performed By: #### C BCI ####[address] [address] WBC 11.0 x10*3/mcL Normal 4.5-11.0 [facility] Comment on above: Performed By: #### C BCI ####[address] [address] Erythrocyte distribution width (RBC) [Ratio] 15.0 % High 11.6-14.8 [facility] Comment on above: Performed By: #### E SR #### [address] [address] Hematocrit (Bld) [Volume fraction] 31.6 % Low 41.0-53.0 [facility] Comment on above: Performed By: #### E SR #### [address] [address] Hemoglobin (Bld) [Mass/Vol] 10.6 g/dL Low 13.5-17.5 [facility] Comment on above: Performed By: #### E SR #### [address] [address] MCH (RBC) [Entitic mass] 30.9 pg Normal 27.0-35.0 [facility] Comment on above: Performed By: #### E SR #### [address] [address] MCHC 33.4 % Normal 31.0-37.0 [facility] Comment on above: Performed By: #### E SR #### [id number] MCV (RBC) [Entitic vol] 92.3 fL Normal 80.0-100.0 [facility] Comment on above: Performed By: #### E SR #### [address] [address] Platelet 256 x10*3/mcL Normal 150-450 [facility] Comment on above: Performed By: #### E SR #### [place] [address] Platelet mean volume (Bld) [Entitic vol] 6.6 fL Low 6.7-10.6 [facility] Comment on above: Performed By: #### E SR #### [address] RBC 3.42 x10*6/mcL Low 4.30-5.80 [facility] Comment on above: Performed By: #### E SR #### [address] [address] WBC 11.4 x10*3/mcL High 4.5-11.0 [facility] Comment on above: Performed By: #### E SR #### [place] [address] CRPon 07-28-2023 CRP 5.77 mg/dL High 0.00-0.75 [facility] Comment on above: Result Comment: CRP measurement is useful for assessment of non-specific INFLAMMATORY RESPONSE to infection or injury AND is a sensitive MARKER of ACUTE INFLAMMATION including CARDIAC RISK ASSESSMENT. CARDIAC patients with elevated CRP are POTENTIALLY at a HIGHER RISK OF FUTURE CARDIAC EVENTS. Performed By: #### C RP ####[place] [address] Infectious Disease Progress Noteon 07-28-2023 Infectious Disease [...] Johnny Cespedes MD 07/28/23 18:16 EDT Normal [facility] Magnesiumon 07-28-2023 Magnesium [Mass/Vol] 1.8 mg/dL Normal 1.7-2.4 [facility] Comment on above: Performed By: #### M G ####[address] [address] Magnesium [Mass/Vol] 1.9 mg/dL Normal 1.7-2.4 [facility] Comment on above: Performed By: #### M G ####[facility] [place] [address] Orthopedic Progress Noteon 1 Orthopedic Progress Note [...] wound VAC on discharge. Anticipate discharge to [facility] once outpatient antibiotics and wound VAC arranged. Outpatient follow-up in 2 weeks Ordered: oxyCODONE, 5 mg, Oral, q6hr, PRN, X 5 days, # 20 tabs, 0 Refill(s), 08/01/23 6:40:00 EDT, Pharmacy: [facility] #[id number] 2. Hyponatremia Orders: enoxaparin, 0.4 mL, Subcutaneous, Daily, X 30 days, # 12 mL, 0 Refill(s), 08/26/23 6:40:00 EST, Pharmacy: [facility] #[id number] Electronically signed by Starla Marie PA-C 07/28/23 06:29 EDT Patient care discussed with Starla Marie PA-C. Agree with assessment and plan. Electronically signed by Justin Mcgowan MD 07/30/23 07:17 EDT Normal [facility] POC Glucose Randomon 023 Glucose [Mass/Vol] 281 mg/dL High 70-99 [facility] Comment on above: Performed By: #### C D:[id number] ####[facility] [place] [address] Glucose [Mass/Vol] 196 mg/dL High 70-99 [facility] Comment on above: Performed By: #### M G #### [facility] [address] [place] [address] Glucose [Mass/Vol] 151 mg/dL High 70-99 [facility] Comment on above: Performed By: #### C D:[id number] ####[facility] [place] [address] Vanco Troughon 07-28-2023 Vanco Trough 14.60 mcg/mL Normal 10.00-15.00 [facility] Comment on above: Performed By: #### E SR #### [facility] [address] [place] [address] .eGFRon 07-27-2023 GFR/1.73 sq M.predicted MDRD (S/P/Bld) [Vol rate/Area] mL/min/{1.73_m2} Normal >=60 [facility] Comment on above: Result Comment: [facility] Laboratories have implemented the eGFR calculation approach [...] = years Performed By: #### E GFR ####[facility] [place] [address] Basic Metabolic Profileon Anion gap [Moles/Vol] 10 mmol/L Normal 7-17 [facility] Comment on above: Performed By: #### M G #### [facility] [address] [place] [address] Calcium [Mass/Vol] 8.7 mg/dL Normal 8.5-10.3 [facility] Comment on above: Performed By: #### M G #### [facility] [address] [place] [address] Chloride [Moles/Vol] 101 mmol/L Normal 98-110 [facility] Comment on above: Performed By: #### M G #### [address] [address] CO2 [Moles/Vol] 28 mmol/L Normal 22-32 [facility] Comment on above: Performed By: #### M G #### [address] [address] Creatinine [Mass/Vol] 0.81 mg/dL Normal 0.61-1.24 [facility] Comment on above: Performed By: #### M G #### [address] [address] Glucose [Mass/Vol] 131 mg/dL High 70-99 [facility] Comment on above: Performed By: #### M G #### [address] [address] Potassium [Moles/Vol] 4.4 mmol/L Normal 3.4-4.8 [facility] Comment on above: Performed By: #### M G #### [address] [address] Sodium [Moles/Vol] 135 mmol/L Normal 133-142 [facility] Comment on above: Performed By: #### M G #### [address] [address] Urea nitrogen [Mass/Vol] 14 mg/dL Normal 8-26 [facility] Comment on above: Performed By: #### M G #### [address] [address] Urea nitrogen/Creatinine [Mass ratio] 17.3 mg/mg Normal 10.0-20.0 [facility] Comment on above: Performed By: #### M G #### [address] [address] CBCon 07-27-2023 Erythrocyte distribution width (RBC) [Ratio] 14.9 % High 11.6-14.8 [facility] Comment on above: Performed By: #### C BCI ####[address] [address] Hematocrit (Bld) [Volume fraction] 31.0 % Low 41.0-53.0 [facility] Comment on above: Performed By: #### C BCI ####[address] [address] Hemoglobin (Bld) [Mass/Vol] 10.3 g/dL Low 13.5-17.5 [facility] Comment on above: Performed By: #### C BCI ####[place] [address] MCH (RBC) [Entitic mass] 30.6 pg Normal 27.0-35.0 [facility] Comment on above: Performed By: #### C BCI ####[place] [address] MCHC 33.4 % Normal 31.0-37.0 [facility] Comment on above: Performed By: #### C BCI ####[place] [address] MCV (RBC) [Entitic vol] 91.6 fL Normal 80.0-100.0 [facility] Comment on above: Performed By: #### C BCI ####[address] [address] Platelet 208 x10*3/mcL Normal 150-450 [facility] Comment on above: Performed By: #### C BCI ####[address] [address] Platelet mean volume (Bld) [Entitic vol] 6.6 fL Low 6.7-10.6 [facility] Comment on above: Performed By: #### C BCI ####[place] [address] RBC 3.38 x10*6/mcL Low 4.30-5.80 [facility] Comment on above: Performed By: #### C BCI ####[place] [address] WBC 8.3 x10*3/mcL Normal 4.5-11.0 [facility] Comment on above: Performed By: #### C BCI ####[place] [address] [place] [id number] Dietary Consultationon 07-27 Dietary Consultation Patient screened [...] Gi Yepez RD 07/27/23 13:14 EDT Normal [facility] Infectious Disease Progress Noteon 07-27-2023 Infectious Disease [...] No complaints on urination. Possibly going to [facility] on discharge. Review of Systems All [...] reviewed. Continues on Vanco and Rocephin awaiting half-way placement. Stop date September 02 as noted above. Electronically signed by Rubina WATERMAN, Johnny Cook. 07/27/23 20:00 EDT Normal [facility] Magnesiumon 07-27-2023 Magnesium [Mass/Vol] 1.9 mg/dL Normal 1.7-2.4 [facility] Comment on above: Performed By: #### M G #### [facility] [address] [place] [address] Orthopedic Progress Noteon 1 Orthopedic Progress Note [...] Justin Mcgowan MD 07/27/23 06:41 EDT Normal [facility] POC Glucose Randomon 023 Glucose [Mass/Vol] 268 mg/dL High 70-99 [facility] Comment on above: Performed By: #### M G #### [address] [address] Glucose [Mass/Vol] 163 mg/dL High 70-99 [facility] Comment on above: Performed By: #### E GFR #### [address] [address] Glucose [Mass/Vol] 185 mg/dL High 70-99 [facility] Comment on above: Performed By: #### E GFR #### [address] [place] [address] Glucose [Mass/Vol] 106 mg/dL High 70-99 [facility] Comment on above: Performed By: #### E GFR #### [address] [address] Progress Note-Nurseon 2022 Progress Note-Nurse Reassessment of [...] Patient C/O pain at the calf site freelance copywriter removed 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 Mcgowan CRF completed for continuity of care Electronically signed by Teresa Hong 07/27/23 13:27 EDT Normal [facility] VL Extremity Venous Duplex Bhavin Florez 07-27-2023 [...] [place] on the 6th floor at 15:45. Cartridge Loader: Simone Jones, RVT Radiologist Report CLINICAL HISTORY: [...] Electronically Signed in Other Vendor System) Normal [facility] .eGFRon 07-26-2023 GFR/1.73 sq M.predicted MDRD (S/P/Bld) [Vol rate/Area] mL/min/{1.73_m2} Normal >=60 [facility] Comment on above: Result Comment: [facility] Laboratories have implemented the eGFR calculation approach [...] years Performed By: #### E GFR #### [address] [address] Basic Metabolic Profileon Anion gap [Moles/Vol] 12 mmol/L Normal 7-17 [facility] Comment on above: Performed By: #### M G #### [address] [address] Calcium [Mass/Vol] 8.6 mg/dL Normal 8.5-10.3 [facility] Comment on above: Performed By: #### M G #### [address] [address] Chloride [Moles/Vol] 102 mmol/L Normal 98-110 [facility] Comment on above: Performed By: #### M G #### [address] [address] CO2 [Moles/Vol] 27 mmol/L Normal 22-32 [facility] Comment on above: Performed By: #### M G #### [address] [address] Creatinine [Mass/Vol] 0.72 mg/dL Normal 0.61-1.24 [facility] Comment on above: Performed By: #### M G #### [address] [address] Glucose [Mass/Vol] 127 mg/dL High 70-99 [facility] Comment on above: Performed By: #### M G #### [address] [address] Potassium [Moles/Vol] 4.5 mmol/L Normal 3.4-4.8 [facility] Comment on above: Performed By: #### M G #### [address] [address] Sodium [Moles/Vol] 136 mmol/L Normal 133-142 [facility] Comment on above: Performed By: #### M G #### [address] [address] Urea nitrogen [Mass/Vol] 12 mg/dL Normal 8-26 [facility] Comment on above: Performed By: #### M G #### [address] [address] Urea nitrogen/Creatinine [Mass ratio] 16.7 mg/mg Normal 10.0-20.0 [facility] Comment on above: Performed By: #### M G #### [address] [address] CBCon 07-26-2023 Erythrocyte distribution width (RBC) [Ratio] 14.7 % Normal 11.6-14.8 [facility] Comment on above: Performed By: #### C D:[id number] #### [address] [address] Hematocrit (Bld) [Volume fraction] 30.2 % Low 41.0-53.0 [facility] Comment on above: Performed By: #### C D:[id number] #### [address] [address] Hemoglobin (Bld) [Mass/Vol] 10.3 g/dL Low 13.5-17.5 [facility] Comment on above: Performed By: #### C D:[id number] #### [address] [address] MCH (RBC) [Entitic mass] 31.1 pg Normal 27.0-35.0 [facility] Comment on above: Performed By: #### C D:[id number] #### [address] [address] MCHC 34.1 % Normal 31.0-37.0 [facility] Comment on above: Performed By: #### C D:[id number] #### [address] [address] MCV (RBC) [Entitic vol] 91.3 fL Normal 80.0-100.0 [facility] Comment on above: Performed By: #### C D:[id number] #### [address] [address] Platelet 178 x10*3/mcL Normal 150-450 [facility] Comment on above: Performed By: #### C D:[id number] #### [address] [address] Platelet mean volume (Bld) [Entitic vol] 6.7 fL Normal 6.7-10.6 [facility] Comment on above: Performed By: #### C D:[id number] #### [place] [id number] RBC 3.31 x10*6/mcL Low 4.30-5.80 [facility] Comment on above: Performed By: #### C D:[id number] #### [address] [address] WBC 6.8 x10*3/mcL Normal 4.5-11.0 [facility] Comment on above: Performed By: #### C D:[id number] #### [address] [address] Magnesiumon 07-26-2023 Magnesium [Mass/Vol] 1.6 mg/dL Low 1.7-2.4 [facility] Comment on above: Performed By: #### M G #### [place] [id number] Orthopedic Progress Noteon 1 Orthopedic Progress Note [...] Justin Mcgowan MD 07/27/23 06:22 EDT Normal [facility] POC Glucose Randomon 023 Glucose [Mass/Vol] 224 mg/dL High 70-99 [facility] Comment on above: Performed By: #### C D:[id number] ####[address] [address] Glucose [Mass/Vol] 201 mg/dL High 70-99 [facility] Comment on above: Performed By: #### C D:[id number] ####[address] [address] Glucose [Mass/Vol] 208 mg/dL High 70-99 [facility] Comment on above: Performed By: #### C D:[id number] #### [address] [address] Glucose [Mass/Vol] 126 mg/dL High 70-99 [facility] Comment on above: Performed By: #### C D:[id number] ####[address] [address] Vanco Troughon 07-26-2023 Vanco Trough 19.30 mcg/mL High 10.00-15.00 [facility] Comment on above: Order Comment: Add 0 800 Vanco to morning labs that were drawn per Jolanta Mcfadden RN. 07/26/2023 05:52 ALS Performed By: #### V ANCT ####[address] [address] .eGFRon 07-25-2023 GFR/1.73 sq M.predicted MDRD (S/P/Bld) [Vol rate/Area] mL/min/{1.73_m2} Normal >=60 [facility] Comment on above: Result Comment: [facility] Laboratories have implemented the eGFR calculation approach [...] Age = years Performed By: #### C D:[id number] #### [address] [address] Basic Metabolic Profileon Anion gap [Moles/Vol] 10 mmol/L Normal 7-17 [facility] Comment on above: Performed By: #### M G #### [address] [address] Calcium [Mass/Vol] 8.0 mg/dL Low 8.5-10.3 [facility] Comment on above: Performed By: #### M G #### [place] [address] [place] [address] Chloride [Moles/Vol] 102 mmol/L Normal 98-110 [facility] Comment on above: Performed By: #### M G #### [place] [address] [place] [address] CO2 [Moles/Vol] 25 mmol/L Normal 22-32 [facility] Comment on above: Performed By: #### M G #### [address] [address] Creatinine [Mass/Vol] 0.65 mg/dL Normal 0.61-1.24 [facility] Comment on above: Performed By: #### M G #### [address] [address] Glucose [Mass/Vol] 280 mg/dL High 70-99 [facility] Comment on above: Performed By: #### M G #### [address] [address] Potassium [Moles/Vol] 4.5 mmol/L Normal 3.4-4.8 [facility] Comment on above: Performed By: #### M G #### [address] [address] Sodium [Moles/Vol] 133 mmol/L Normal 133-142 [facility] Comment on above: Performed By: #### M G #### [address] [address] Urea nitrogen [Mass/Vol] 13 mg/dL Normal 8-26 [facility] Comment on above: Performed By: #### M G #### [address] [address] Urea nitrogen/Creatinine [Mass ratio] 20.0 mg/mg Normal 10.0-20.0 [facility] Comment on above: Performed By: #### M G #### [address] [address] CBCon 07-25-2023 Erythrocyte distribution width (RBC) [Ratio] 14.7 % Normal 11.6-14.8 [facility] Comment on above: Performed By: #### C BCI ####[address] [address] Hematocrit (Bld) [Volume fraction] 29.0 % Low 41.0-53.0 [facility] Comment on above: Performed By: #### C BCI ####[address] [address] Hemoglobin (Bld) [Mass/Vol] 9.9 g/dL Low 13.5-17.5 [facility] Comment on above: Performed By: #### C BCI ####[place] [address]240 MCH (RBC) [Entitic mass] 31.5 pg Normal 27.0-35.0 [facility] Comment on above: Performed By: #### C BCI ####[place] [address] MCHC 34.0 % Normal 31.0-37.0 [facility] Comment on above: Performed By: #### C BCI ####[place] [address] MCV (RBC) [Entitic vol] 92.6 fL Normal 80.0-100.0 [facility] Comment on above: Performed By: #### C BCI ####[place] [address] Platelet 153 x10*3/mcL Normal 150-450 [facility] Comment on above: Performed By: #### C BCI ####[place] [address] Platelet mean volume (Bld) [Entitic vol] 6.7 fL Normal 6.7-10.6 [facility] Comment on above: Performed By: #### C BCI ####[place] [address] RBC 3.13 x10*6/mcL Low 4.30-5.80 [facility] Comment on above: Performed By: #### C BCI ####[place] [address] WBC 5.8 x10*3/mcL Normal 4.5-11.0 [facility] Comment on above: Performed By: #### C BCI ####[place] [address] Magnesiumon 07-25-2023 Magnesium [Mass/Vol] 1.5 mg/dL Low 1.7-2.4 [facility] Comment on above: Performed By: #### M G ####[place] [address] [place] [address] Orthopedic Progress Noteon 1 Orthopedic Progress Note [...] Dose: 07/24/23 17:00:00 EDT, Dispense From Location: [facility], Joint Infection, 07/24/23 17:00:00 EDT Electronically signed by Justin Mcgowan MD 07/25/23 06:22 EDT Normal [facility] POC Glucose Randomon 023 Glucose [Mass/Vol] 234 mg/dL High 70-99 [facility] Comment on above: Performed By: #### M G #### [address] [address] Glucose [Mass/Vol] 201 mg/dL High 70-99 [facility] Comment on above: Performed By: #### C D:[id number] ####[address] [address] Glucose [Mass/Vol] 245 mg/dL High 70-99 [facility] Comment on above: Performed By: #### C D:[id number] ####[address] [address] Glucose [Mass/Vol] 138 mg/dL High 70-99 [facility] Comment on above: Performed By: #### M G #### [address] [address] Vanco Troughon 07-25-2023 Vanco Trough 22.80 mcg/mL High 10.00-15.00 [facility] Comment on above: Performed By: #### E GFR #### [address] [address] .eGFRon 07-24-2023 GFR/1.73 sq M.predicted MDRD (S/P/Bld) [Vol rate/Area] mL/min/{1.73_m2} Normal >=60 [facility] Comment on above: Result Comment: [facility] Laboratories have implemented the eGFR calculation approach [...] = years Performed By: #### E GFR ####[facility] [place] [address] Basic Metabolic Profileon Anion gap [Moles/Vol] 11 mmol/L Normal 7-17 [facility] Comment on above: Performed By: #### M G #### [facility] [address] [place] [address] Calcium [Mass/Vol] 8.0 mg/dL Low 8.5-10.3 [facility] Comment on above: Performed By: #### M G #### [facility] [address] [place] [address] Chloride [Moles/Vol] 101 mmol/L Normal 98-110 [facility] Comment on above: Performed By: #### M G #### [facility] [address] [place] [address] CO2 [Moles/Vol] 24 mmol/L Normal 22-32 [facility] Comment on above: Performed By: #### M G #### [address] [address] Creatinine [Mass/Vol] 0.66 mg/dL Normal 0.61-1.24 [facility] Comment on above: Performed By: #### M G #### [address] [address] Glucose [Mass/Vol] 168 mg/dL High 70-99 [facility] Comment on above: Performed By: #### M G #### [address] [address] Potassium [Moles/Vol] 4.6 mmol/L Normal 3.4-4.8 [facility] Comment on above: Performed By: #### M G #### [address] [address] Sodium [Moles/Vol] 131 mmol/L Low 133-142 [facility] Comment on above: Performed By: #### M G #### [address] [address] Urea nitrogen [Mass/Vol] 11 mg/dL Normal 8-26 [facility] Comment on above: Performed By: #### M G #### [address] [address] Urea nitrogen/Creatinine [Mass ratio] 16.7 mg/mg Normal 10.0-20.0 [facility] Comment on above: Performed By: #### M G #### [address] [address] CBCon 07-24-2023 Erythrocyte distribution width (RBC) [Ratio] 14.6 % Normal 11.6-14.8 [facility] Comment on above: Performed By: #### C BCI ####[address] [address] Hematocrit (Bld) [Volume fraction] 29.9 % Low 41.0-53.0 [facility] Comment on above: Performed By: #### C BCI ####[place] [id number] Hemoglobin (Bld) [Mass/Vol] 10.1 g/dL Low 13.5-17.5 [facility] Comment on above: Performed By: #### C BCI ####[place] [address] MCH (RBC) [Entitic mass] 31.8 pg Normal 27.0-35.0 [facility] Comment on above: Performed By: #### C BCI ####[place] [address] MCHC 33.9 % Normal 31.0-37.0 [facility] Comment on above: Performed By: #### C BCI ####[place] [address] MCV (RBC) [Entitic vol] 93.8 fL Normal 80.0-100.0 [facility] Comment on above: Performed By: #### C BCI ####[place] [id number] Platelet 126 x10*3/mcL Low 150-450 [facility] Comment on above: Performed By: #### C BCI ####[place] [id number] Platelet mean volume (Bld) [Entitic vol] 6.8 fL Normal 6.7-10.6 [facility] Comment on above: Performed By: #### C BCI ####[place] [address] RBC 3.19 x10*6/mcL Low 4.30-5.80 [facility] Comment on above: Performed By: #### C BCI ####[place] [address] WBC 6.9 x10*3/mcL Normal 4.5-11.0 [facility] Comment on above: Performed By: #### C BCI ####[place] [id number] Infectious Disease Progress Noteon 07-24-2023 Infectious Disease [...] Johnny Cespedes MD 07/24/23 16:49 EDT Normal [facility] Magnesiumon 07-24-2023 Magnesium [Mass/Vol] 1.6 mg/dL Low 1.7-2.4 [facility] Comment on above: Performed By: #### M G ####[facility] [place] [address] Orthopedic Progress Noteon 1 Orthopedic Progress Note [...] Justin Mcgowan MD 07/24/23 15:51 EDT Normal [facility] POC Glucose Randomon 023 Glucose [Mass/Vol] 197 mg/dL High 70-99 [facility] Comment on above: Performed By: #### C D:[id number] ####[address] [address] Glucose [Mass/Vol] 258 mg/dL High 70-99 [facility] Comment on above: Performed By: #### C D:[id number] ####[address] [address] Glucose [Mass/Vol] 338 mg/dL High 70-99 [facility] Comment on above: Performed By: #### C D:[id number] ####[address] [address] Glucose [Mass/Vol] 341 mg/dL High 70-99 [facility] Comment on above: Performed By: #### C D:[id number] ####[place] [address] [place] [address] Glucose [Mass/Vol] 167 mg/dL High 70-99 [facility] Comment on above: Performed By: #### C D:[id number] ####[address] [address] Progress Note-Nurseon 2022 Progress Note-Nurse First assessment [...] signed by Teresa Hong 07/24/23 14:50 EDT [facility] Progress Note-Nurse 4F single lumen Erwin r PICC solo inserted per MST in the right basilic vein 07/24/2023. Sterile field maintained. No complications noted. patient tolerated well, arm circ 35 cm cut length 44 cm. External length 0 cm. XR tip confirmation. PICC tip SVC confirmed by Dr Lamar lot [id number] exp 08/18/2024 Michelle Oshea Normal [facility] Vanco Troughon 07-24-2023 Vanco Trough 9.50 mcg/mL Low 10.00-15.00 [facility] Comment on above: Performed By: #### V ANCT ####[place] [address] [place] [address] .eGFRon 07-23-2023 GFR/1.73 sq M.predicted MDRD (S/P/Bld) [Vol rate/Area] mL/min/{1.73_m2} Normal >=60 [facility] Comment on above: Result Comment: [facility] Laboratories have implemented the eGFR calculation approach [...] = years Performed By: #### E GFR ####[address] [address] Basic Metabolic Profileon Anion gap [Moles/Vol] 10 mmol/L Normal 7-17 [facility] Comment on above: Performed By: #### C D:[id number] #### [address] [address] Calcium [Mass/Vol] 8.3 mg/dL Low 8.5-10.3 [facility] Comment on above: Performed By: #### C D:[id number] #### [address] [address] Chloride [Moles/Vol] 103 mmol/L Normal 98-110 [facility] Comment on above: Performed By: #### C D:[id number] #### [address] [address] CO2 [Moles/Vol] 24 mmol/L Normal 22-32 [facility] Comment on above: Performed By: #### C D:[id number] #### [address] [address] Creatinine [Mass/Vol] 0.92 mg/dL Normal 0.61-1.24 [facility] Comment on above: Performed By: #### C D:[id number] #### [address] [address] Glucose [Mass/Vol] 218 mg/dL High 70-99 [facility] Comment on above: Performed By: #### C D:[id number] #### [address] [address] Potassium [Moles/Vol] 4.2 mmol/L Normal 3.4-4.8 [facility] Comment on above: Performed By: #### C D:[id number] #### [address] [address] Sodium [Moles/Vol] 133 mmol/L Normal 133-142 [facility] Comment on above: Performed By: #### C D:[id number] #### [address] [address] Urea nitrogen [Mass/Vol] 12 mg/dL Normal 8-26 [facility] Comment on above: Performed By: #### C D:[id number] #### [address] [address] Urea nitrogen/Creatinine [Mass ratio] 13.0 mg/mg Normal 10.0-20.0 [facility] Comment on above: Performed By: #### C D:[id number] #### [address] [address] C Sterile BFon 07-23-2023 C Sterile BF -- - Final No growth at 2 weeks. - Gram Stain Many White Blood Cells No organisms seen. Normal [facility] Comment on above: Performed By: #### C SBF ####[place] [address] CBCon 07-23-2023 Erythrocyte distribution width (RBC) [Ratio] 14.4 % Normal 11.6-14.8 [facility] Comment on above: Performed By: #### C BCI ####[place] [id number] Hematocrit (Bld) [Volume fraction] 34.4 % Low 41.0-53.0 [facility] Comment on above: Performed By: #### C BCI ####[place] [address] Hemoglobin (Bld) [Mass/Vol] 11.6 g/dL Low 13.5-17.5 [facility] Comment on above: Performed By: #### C BCI ####[place] [address] MCH (RBC) [Entitic mass] 31.7 pg Normal 27.0-35.0 [facility] Comment on above: Performed By: #### C BCI ####[place] [address] MCHC 33.7 % Normal 31.0-37.0 [facility] Comment on above: Performed By: #### C BCI ####[address] [address] MCV (RBC) [Entitic vol] 93.8 fL Normal 80.0-100.0 [facility] Comment on above: Performed By: #### C BCI ####[address] [address] Platelet 133 x10*3/mcL Low 150-450 [facility] Comment on above: Performed By: #### C BCI ####[address] [address] Platelet mean volume (Bld) [Entitic vol] 7.2 fL Normal 6.7-10.6 [facility] Comment on above: Performed By: #### C BCI ####[address] [address] RBC 3.67 x10*6/mcL Low 4.30-5.80 [facility] Comment on above: Performed By: #### C BCI ####[address] [address] WBC 9.3 x10*3/mcL Normal 4.5-11.0 [facility] Comment on above: Performed By: #### C BCI ####[address] [address] Infectious Disease Consultat [facility] 07-23-2023 Infectious Disease Consultation Chief Complaint Transfer from [facility] secondary to postop infection Reason for [...] day of it. Patient was transferred to [facility] from [facility] with concerns of postop infection right [...] Oral, Edvin (more content not included)... Normal [facility] Magnesiumon 07-23-2023 Magnesium [Mass/Vol] 1.6 mg/dL Low 1.7-2.4 [facility] Comment on above: Performed By: #### M G #### [facility] [address] [place] [address] Orthopedic Progress Noteon 1 Orthopedic Progress Note [...] Justin Mcgowan MD 07/24/23 15:50 EDT Normal [facility] POC Glucose Randomon 023 Glucose [Mass/Vol] 254 mg/dL High 70-99 [facility] Comment on above: Performed By: #### C D:[id number] ####[address] [address] Glucose [Mass/Vol] 217 mg/dL High 70-99 [facility] Comment on above: Performed By: #### C D:[id number] ####[address] [address] Glucose [Mass/Vol] 383 mg/dL High 70-99 [facility] Comment on above: Performed By: #### E GFR #### [address] [address] Glucose [Mass/Vol] 167 mg/dL High 70-99 [facility] Comment on above: Performed By: #### C D:[id number] ####[address] [address] Progress Note-Nurseon 2022 Progress Note-Nurse Assessment of [...] by Teresa Hong 07/23/23 15:20 EDT Normal [facility] Comment on above: Order Comment: 125mm /hg /low setting .BF Cell Cnt RBC Aon 023 Fluid RBC Count [id number] /mcL Normal [facility] Comment on above: Performed By: #### . Body Fluid Cell Count RBC Auto ####[facility] [place] [address] Fluid RBC Count 607352 /mcL Normal [facility] Comment on above: Performed By: #### C D:[id number] #### [facility] [address] [place] [address] Fluid RBC Count 399645 /mcL Normal [facility] Comment on above: Performed By: #### E GFR #### [address] [address] .BF Cell Cnt WBC Aon 023 Fluid WBC Count 76506 /mcL High 0-150 [facility] Comment on above: Performed By: #### E GFR #### [address] [address] Fluid WBC Count 20407 /mcL High 0-150 [facility] Comment on above: Performed By: #### M G #### [address] [address] Fluid WBC Count 58[address] /mcL High 0-150 [facility] Comment on above: Performed By: #### . Body Fluid Cell Count WBC Auto ####[address] [address] .BF Diffon 07-22-2023 Fluid Mononuclear Cells 4 % Normal 0-78 [facility] Comment on above: Performed By: #### . Body Fluid Differential ####[address] [address] Fluid Other Cells 0 % Normal 0-10 [facility] Comment on above: Performed By: #### . Body Fluid Differential ####[address] [address] Fluid Polynuclear Cells 96 % High 0-25 [facility] Comment on above: Performed By: #### . Body Fluid Differential ####[address] [address] Fluid Mononuclear Cells 5 % Normal 0-78 [facility] Comment on above: Performed By: #### E GFR #### [address] [address] Fluid Other Cells 0 % Normal 0-10 [facility] Comment on above: Performed By: #### E GFR #### [address] [address] Fluid Polynuclear Cells 95 % High 0-25 [facility] Comment on above: Performed By: #### E GFR #### [facility] [address] [place] [address] Fluid Mononuclear Cells 4 % Normal 0-78 [facility] Comment on above: Performed By: #### . Body Fluid Differential ####[facility] [place] [address] Fluid Other Cells 0 % Normal 0-10 [facility] Comment on above: Performed By: #### . Body Fluid Differential ####[address] [address] Fluid Polynuclear Cells 96 % High 0-25 [facility] Comment on above: Performed By: #### . Body Fluid Differential ####[address] [place] [address] .eGFRon 07-22-2023 GFR/1.73 sq M.predicted MDRD (S/P/Bld) [Vol rate/Area] mL/min/{1.73_m2} Normal >=60 [facility] Comment on above: Result Comment: [facility] Laboratories have implemented the eGFR calculation approach [...] = years Performed By: #### E GFR ####[address] [address] BF Cell Counton 07-22-2023 Body Fluid Cell Cnt Type Synovial Normal [facility] Comment on above: Performed By: #### M G #### [place] [address] Body Fluid Cell Cnt Type Synovial Normal [facility] Comment on above: Performed By: #### E SR #### [place] [address] Body Fluid Cell Cnt Type Synovial Normal [facility] Comment on above: Performed By: #### M G #### [place] [address] C Sterile BFon 07-22-2023 C Sterile BF -- - Final No growth at 2 weeks. - Gram Stain Many White Blood Cells No organisms seen. Normal [facility] Comment on above: Performed By: #### C SBF ####[place] [address] ED Clinical Summaryon 2022 [place] [address] ED Clinical Summary Person Information Name: Joie Lu Sondra/[facility] Age: 68 Years : 1955 Sex: Male PCP: Marital Status: Phone: Race: White Ethnicity: Not or Language: Martiniquais Visit Reason: Wound infection - uncomplicated; Surgical problem Acuity: 3 Enc Type: Observation Med Service: Emergency Medicine Arrival: 07/21/2023 19:33:54 Discharge: LOS: 000 02:27 Checkin: 07/21/2023 19:33:54 Checkout: 07/21/2023 22:00:13 Dispo Type: Address: [place] [id number] Provider Notes: History of Present Illness 68-year-old male presents with right knee pain.? 3 and half weeks ago he had a right knee replacement done by Dr. Mcgowan at [facility].? He tells me over the past few days he has developed worsening pain, swelling?and some drainage from the incision on his knee. ?He was at [facility] today.? He had blood work done and Dr. Mcgowan was consulted. ?He requested to have patient admitted to?[facility].? I had initially spoken with the ED [...] 50 mcg/ (more content not included)... Normal [facility] ESRon 07-22-2023 Sed Rate 23 mm/hr Normal 0-23 [facility] Comment on above: Performed By: #### E SR ####[place] [id number] Hgb A1con 07-22-2023 Glucose [Mass/Vol] 120 mg/dL High 68-114 [facility] Comment on above: Result Comment: Math ematical Calc approx. The mean gluc equivalency of A1c Performed By: #### H BA1C ####[place] [address] Hgb A1c 5.8 % A1c High 4.0-5.6 [facility] Comment on above: Result Comment: Refe rence Range: 4.0 - 5.6 % Normal 5.7 - 6.4 % Pre-Diabetes > 6.5 % Diabetes Performed By: #### H BA1C ####[place] [id number] Occupational Medicine Progre ss Noteon 07-22-2023 Occupational Medicine Progress Note Attempted to eval pt this AM, pt falling asleep during conversation. Pt requested to come back at a later time. Will attempt to see as time allows. Electronically signed by Aggie Cortes 07/22/23 13:16 EDT Normal [facility] Orthopedic Consultationon Orthopedic Consultation Chief Complaint Transfer from [facility] secondary to postop infection Reason for [...] PRN heparin, 5000 units= 1 mL, Subcutaneous, [id number] Times influenza virus vaccine, inactivated 5+ years [...] History Alco (more content not included)... Normal [facility] POC Glucose Randomon 023 Glucose [Mass/Vol] 139 mg/dL High 70-99 [facility] Comment on above: Performed By: #### C D:[id number] ####[facility] [place] [address] Glucose [Mass/Vol] 121 mg/dL High 70-99 [facility] Comment on above: Performed By: #### M G #### [facility] [address] [place] [address] Glucose [Mass/Vol] 198 mg/dL High 70-99 [facility] Comment on above: Performed By: #### E GFR #### [address] [address] Physical Therapy Progress No yossi 07-22-2023 Physical Therapy Progress Note Upon arrival, pt supine. 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 Pt politely request to work w/ PT services tomorrow. States significant pain in his knee. Will reattempt tomorrow as able. Thank you. Electronically signed by Surekha Haley 07/22/23 16:41 EDT Normal [facility] Renal Panelon 07-22-2023 Albumin [Mass/Vol] 3.3 g/dL Normal 3.2-4.9 [facility] Comment on above: Performed By: #### R ENAL ####[address] [address] Anion gap [Moles/Vol] 10 mmol/L Normal 7-17 [facility] Comment on above: Performed By: #### R ENAL ####[address] [address] Calcium [Mass/Vol] 8.8 mg/dL Normal 8.5-10.3 [facility] Comment on above: Performed By: #### R ENAL ####[address] [address] Chloride [Moles/Vol] 102 mmol/L Normal 98-110 [facility] Comment on above: Performed By: #### R ENAL ####[address] [address] CO2 [Moles/Vol] 25 mmol/L Normal 22-32 [facility] Comment on above: Performed By: #### R ENAL ####[address] [address] Creatinine [Mass/Vol] 1.03 mg/dL Normal 0.61-1.24 [facility] Comment on above: Performed By: #### R ENAL ####[address] [address] Glucose [Mass/Vol] 165 mg/dL High 70-99 [facility] Comment on above: Performed By: #### R ENAL ####[address] [address] Phosphate [Mass/Vol] 3.1 mg/dL Normal 2.5-4.6 [facility] Health Comment on above: Performed By: #### R ENAL ####[address] [address] Potassium [Moles/Vol] 4.5 mmol/L Normal 3.4-4.8 [facility] Comment on above: Performed By: #### R ENAL ####[address] [address] Sodium [Moles/Vol] 133 mmol/L Normal 133-142 [facility] Comment on above: Performed By: #### R ENAL ####[address] [address] Urea nitrogen [Mass/Vol] 15 mg/dL Normal 8-26 [facility] Comment on above: Performed By: #### R ENAL ####[address] [address] Urea nitrogen/Creatinine [Mass ratio] 14.6 mg/mg Normal 10.0-20.0 [facility] Comment on above: Performed By: #### R ENAL ####[address] [address] .eGFRon 07-21-2023 GFR/1.73 sq M.predicted MDRD (S/P/Bld) [Vol rate/Area] mL/min/{1.73_m2} Normal >=60 [facility] Comment on above: Result Comment: [facility] Laboratories have implemented the eGFR calculation approach [...] = years Performed By: #### E GFR ####[address] [address] Basic Metabolic Profileon Creatinine [Mass/Vol] 0.90 mg/dL Normal 0.61-1.24 [facility] Comment on above: Performed By: #### C [id number] ####[address] [address] Urea nitrogen [Mass/Vol] 16 mg/dL Normal 8-26 [facility] Comment on above: Performed By: #### C D:[id number] ####[address] [place] [address] Urea nitrogen/Creatinine [Mass ratio] 17.8 mg/mg Normal 10.0-20.0 [facility] Comment on above: Performed By: #### C D:[id number] ####[address] [address] Anion gap [Moles/Vol] 11 mmol/L Normal 7-17 [facility] Comment on above: Performed By: #### C D:[id number] ####[address] [place] [address] Calcium [Mass/Vol] 8.6 mg/dL Normal 8.5-10.3 [facility] Comment on above: Performed By: #### C D:[id number] ####[address] [address] Chloride [Moles/Vol] 100 mmol/L Normal 98-110 [facility] Comment on above: Performed By: #### C D:[id number] ####[address] [address] CO2 [Moles/Vol] 22 mmol/L Normal 22-32 [facility] Comment on above: Performed By: #### C D:[id number] ####[address] [address] Glucose [Mass/Vol] 177 mg/dL High 70-99 [facility] Comment on above: Performed By: #### C D:[id number] ####[address] [address] Potassium [Moles/Vol] 3.8 mmol/L Normal 3.4-4.8 [facility] Comment on above: Performed By: #### C D:[id number] ####[address] [address] Sodium [Moles/Vol] 129 mmol/L Low 133-142 [facility] Comment on above: Performed By: #### C D:[id number] ####[address] [address] CBCon 07-21-2023 Erythrocyte distribution width (RBC) [Ratio] 15.2 % High 11.6-14.8 [facility] Comment on above: Performed By: #### E SR #### [address] [address] Hematocrit (Bld) [Volume fraction] 38.0 % Low 41.0-53.0 [facility] Comment on above: Performed By: #### E SR #### [address] [address] Hemoglobin (Bld) [Mass/Vol] 12.8 g/dL Low 13.5-17.5 [facility] Comment on above: Performed By: #### E SR #### [address] [address] MCH (RBC) [Entitic mass] 31.7 pg Normal 27.0-35.0 [facility] Comment on above: Performed By: #### E SR #### [address] [address] MCHC 33.7 % Normal 31.0-37.0 [facility] Comment on above: Performed By: #### E SR #### [address] [address] MCV (RBC) [Entitic vol] 94.0 fL Normal 80.0-100.0 [facility] Comment on above: Performed By: #### E SR #### [address] [address] Platelet 156 x10*3/mcL Normal 150-450 [facility] Comment on above: Performed By: #### E SR #### [address] [address] Platelet mean volume (Bld) [Entitic vol] 7.2 fL Normal 6.7-10.6 [facility] Comment on above: Performed By: #### E SR #### [address] [address] RBC 4.04 x10*6/mcL Low 4.30-5.80 [facility] Comment on above: Performed By: #### E SR #### [address] [address] WBC 13.7 x10*3/mcL High 4.5-11.0 [facility] Comment on above: Performed By: #### E SR #### [address] [address] CRPon 07-21-2023 CRP 24.09 mg/dL High 0.00-0.75 [facility] Comment on above: Result Comment: CRP measurement is useful for assessment of non-specific INFLAMMATORY RESPONSE to infection or injury AND is a sensitive MARKER of ACUTE INFLAMMATION including CARDIAC RISK ASSESSMENT. CARDIAC patients with elevated CRP are POTENTIALLY at a HIGHER RISK OF FUTURE CARDIAC EVENTS. Performed By: #### C D:[id number] #### [facility] [address] [place] [address] ED Note-Physicianon 07-21-20 ED Note-Physician Chief Complaint Patient coming from [facility], c/o knee pain 04/27, tatianalucho, had a knee replacement surgery 3 weeks ago. History of Present Illness 68-year-old male presents with right knee pain. 3 and half weeks ago he had a right knee replacement done by Dr. Mcgowan at [facility]. He tells me over the past few days he has developed worsening pain, swelling and some drainage from the incision on his knee. He was at [facility] today. He had blood work done and Dr. Mcgowan was consulted. He requested to have patient admitted to [facility]. I had initially spoken with the ED [...] from someone other than the patient: Reviewed [employer] EMR to see if recent visits or [...] _ ? NEXUS C-spine Criteria: _ ? [place] Ankle Rule: _ ? [place] Knee Rule: _ ? [place] Criteria for [...] PRN heparin, 5000 units= 1 mL, Subcutaneous, p1jy-Odjocjxy Times MiraLax, 17 g= 1 EA, Oral, Daily, PRN naloxone, 0.4 mg= 1 mL, IV Push, q2min, PRN Normal Saline Flush 0.9% injectable solution, 10 mL, IV Push, As Indicated, PRN Normal Saline Flush 0.9% injectable solution, 10 mL, IV Push, BID ondansetron (more content not included)... Normal [facility] Magnesiumon 07-21-2023 Magnesium [Mass/Vol] 1.7 mg/dL Normal 1.7-2.4 [facility] Comment on above: Performed By: #### M G ####[facility] [place] [address] XR KNEE RIGHT (1-2 VIEWS)on 06-27-2023 XR [...] Messi Upton DO 06/27/23 Final result Normal [facility] Basic Metabolic Profon 06-26 Anion gap [Moles/Vol] 12 mmol/L Normal 07-05 [facility] Comment on above: Performed By: #### H H, BMP #### [facility] [address] [place] [address] Fancy Packer: Oliver Cabrera MD BUN/CRE Ratio 25 High 9- [facility] Comment on above: Performed By: #### H H, BMP #### [facility] [address] [place] [address] Fancy Packer: Oliver Cabrera MD Calcium [Mass/Vol] 9.1 mg/dL Normal 8.6-10.4 [facility] Comment on above: Performed By: #### H H, BMP #### [facility] [address] [place], [place] [address]83 Fancy Packer: Oliver Cabrera MD Chloride [Moles/Vol] 98 mmol/L Normal 98-107 [facility] Comment on above: Performed By: #### H H, BMP #### [facility] [address] [place] [address] Fancy Packer: Oliver Cabrera MD CO2 [Moles/Vol] 22 mmol/L Normal 20-[address] [facility] Comment on above: Performed By: #### H H, BMP #### [address] [place], [place] [address]83 Fancy Packer: Oliver Cabrera MD Creatinine [Mass/Vol] 1.0 mg/dL Normal 0.7-1.2 [facility] Comment on above: Performed By: #### H H, BMP #### [address] [place] [address] Fancy Packer: Oliver Cabrera MD GFR/1.73 sq M.predicted among non-blacks MDRD (S/P/Bld) [Vol rate/Area] mL/min/{1.73_m2} Normal >60 [facility] Comment on above: Result Comment: These [...] Performed By: #### H H, BMP #### [facility] [address] [place], [place] [id number] Fancy Packer: Oliver Cabrera MD Glucose [Mass/Vol] 208 mg/dL High 70-99 [facility] Comment on above: Performed By: #### H H, BMP #### [facility] [address] [place], [place] [address]83 Fancy Packer: Oliver Cabrera MD Potassium [Moles/Vol] 4.8 mmol/L Normal 3.7-5.3 [facility] Comment on above: Performed By: #### H H, BMP #### [facility] [address] [place], [place] [address] Fancy Packer: Oliver Cabrera MD Sodium [Moles/Vol] 132 mmol/L Low 135-144 [facility] Comment on above: Performed By: #### H H, BMP #### [address] [place], [place] 8[address]683 Fancy Packer: Oliver Cabrera MD Urea nitrogen [Mass/Vol] 25 mg/dL High 8-23 [facility] Comment on above: Performed By: #### H H, BMP #### [address] [place], [place] [address]83 Fancy Packer: Oliver Cabrera MD Hgb/Hcton 06-26-2023 Hematocrit (Bld) [Volume fraction] 37.2 % Low 40.7-50.3 [facility] Comment on above: Performed By: #### H H, BMP #### [facility] [address] [place], [place] 4788383 Fancy Packer: Oliver Cabrera MD Hemoglobin (Bld) [Mass/Vol] 12.6 g/dL Low 13.0-17.0 [facility] Comment on above: Performed By: #### H H, BMP #### [facility] [address] [place], [place] [address]83 Fancy Packer: Oliver Cabrera MD MRSA, DNA, Nasalon 3 MRSA, DNA, Nasal Negative Normal NEG [facility] Comment on above: Result Comment: ANKITA [...] DP, CP, UMICAO, PT, PTT, UAX #### [facility] [address] [place] [address] Fancy Packer: Oliver Cabrera MD #### MRSANO #### [facility] [address] [place] [address] Fancy Packer: Glenn Noyola MD [facility] [address] [address] Fancy Packer: Oliver Cabrera MD XR CHEST (2 VW)on [...] Chris Wiseman MD 06/11/23 Final result Normal [facility] Multifocal bibasilar pneumonia. Probable mild reactive left hilar adenopathy. No sizable pleural effusion. The findings were sent to the Radiology Results Communication Center at 9:05 a.m. on 06/11/2023 to be communicated to a licensed caregiver. [facility] CONSOLIDATED EXAMINATION: TWO XRAY VIEWS [...] appearing height loss mid-lower TS vertebral bodies. [facility] Chris Wiseman MD - 06/11/2023 EXAMINATION: TWO [...] to be communicated to a licensed caregiver. [facility] XR CHEST (2 VW)Ordered By: Mame Wiseman on 06-11-2023 [facility] Work Phone: APTTon 06-10-2023 aPTT Coag (Blgrabiel) [Time] s Critically high 26.8-34.8 [facility] Comment on above: Result Comment: IV Heparin Therapy Range: 62.0-94.0 Performed By: #### C DP, CP, UMICAO, PT, PTT, UAX #### [facility] [address] [place] [address] Fancy Packer: Oliver Cabrera MD #### MRSANO #### [facility] [address] [place], [place] [id number] Fancy Packer: Glenn Noyola MD [facility] [address] [place] [address] Fancy Packer: Oliver Cabrera MD Interpretation and review of laboratory results Abnormal [facility] PTT Critically high [facility] Comment on above: IV Heparin Therapy Range: 62.0-94.0 [facility] CBC with Auto Differentialon 06-10-2023 Basophils (Bld) [#/Vol] 0.07 10*3/uL [facility] Basophils/100 WBC (Bld) 1 % 0 - 2 % [facility] Eosinophils (Bld) [#/Vol] 1.14 10*3/uL High [facility] Eosinophils/100 WBC (Bld) 9 % High 1 - 4 % [facility] Erythrocyte distribution width (RBC) [Ratio] 12.5 % 11.8 - 14.4 % [facility] Hematocrit (Bld) [Volume fraction] 40.4 % Low 40.7 - 50.3 % [facility] Hemoglobin (Bld) [Mass/Vol] 13.7 g/dL 13.0 - 17.0 g/dL [facility] Immature granulocytes (Bld) [#/Vol] 0.06 10*3/uL [facility] Immature granulocytes/100 WBC (Bld) 1 % High 0 [facility] Interpretation and review of laboratory results Abnormal [facility] Lymphocytes/100 WBC (Bld) 12 % Low 24 - 43 % [facility] Lymphocytes/100 WBC (Bld) 1.47 % [facility] MCH (RBC) [Entitic mass] 30.4 pg 25.2 - 33.5 pg [facility] MCHC (RBC) [Mass/Vol] 33.9 g/dL 28.4 - 34.8 g/dL [facility] MCV (RBC) [Entitic vol] 89.8 fL 82.6 - 102.9 fL [facility] Monocytes/100 WBC (Bld) 6 % 3 - 12 % [facility] Monocytes/100 WBC (Bld) 0.73 % [facility] Neutrophils/100 WBC (Bld) 71 % High 36 - 65 % [facility] Nucleated RBC/100 WBC (Bld) [Ratio] 0.0 % 0.0 per 100 WBC [facility] Platelet mean volume (Bld) [Entitic vol] 9.3 fL 8.1 - 13.5 fL [facility] Platelets (Bld) [#/Vol] 162 10*3/uL [facility] RBC (Bld) [#/Vol] 4.50 10*6/uL 4.21 - 5.7 7 m/uL [facility] Segmented neutrophils/100 WBC (Bld) 8.83 % High [facility] WBC other (Bld) [#/Vol] 12.3 High [facility] CBC with Diffon 06-10-2023 Abs. Basophil 0.07 k/uL Normal 0.00-0.20 [facility] Comment on above: Performed By: #### C DP, CP, UMICAO, PT, PTT, UAX #### [address] [place] [id number] Fancy [employer]: Oliver Cabrera MD #### MRSANO #### [address] [id number] Fancy Packer: Glenn Noyola MD [facility] [address] [place] [address] [place] [address] Fancy Packer: Oilver Cabrera MD Abs.Imm.Granulocyte 0.06 k/uL Normal 0.00-0.30 [facility] Comment on above: Performed By: #### C DP, CP, UMICAO, PT, PTT, UAX #### [address] [place] [address] Fancy Packer: Oliver Cabrera MD #### MRSANO #### [address] [place] [address] Fancy Packer: Glenn Noyola MD [address] [place] [address] Fancy Packer: Oliver Cabrera MD Abs.Neutrophil (Seg) 8.83 k/uL High 1.50-8.10 [facility] Comment on above: Performed By: #### C DP, CP, UMICAO, PT, PTT, UAX #### [address] [place] [address] Fancy Packer: Oliver Cabrera MD #### MRSANO #### [address] [address] Fancy Packer: Glenn Noyola MD [address] [place] [address] Fancy Packer: Oliver Cabrera MD Basophils/100 WBC (Bld) 1 % Normal 0-2 [facility] Comment on above: Performed By: #### C DP, CP, UMICAO, PT, PTT, UAX #### [address] [place] [address] Fancy Packer: Oliver Cabrera MD #### MRSANO #### [address] [address] Fancy Packer: Glenn Noyola MD [address] [place] [address] Fancy Packer: Oliver Cabrera MD Eosinophils (Bld) [#/Vol] 1.14 10*3/uL High 0.00-0.44 [facility] Comment on above: Performed By: #### C DP, CP, UMICAO, PT, PTT, UAX #### [address] [place], [place] [phone] Fancy Packer: Oliver Cabrera MD #### MRSANO #### [facility] [address] [place], [place] [phone] Fancy Packer: Glenn Noyola MD [address] [place], [place] 2288683 Fancy Packer: Oliver Cabrera MD Eosinophils/100 WBC (Bld) 9 % High 1-4 [facility] Comment on above: Performed By: #### C DP, CP, UMICAO, PT, PTT, UAX #### [address] [place], [place] 739[address]83 Fancy Packer: Oliver Cabrera MD #### MRSANO #### [address] [place], [place] [id number] Fancy Packer: Glenn Noyola MD [address] [place] [phone] Fancy Packer: Oliver Cabrera MD Erythrocyte distribution width (RBC) [Ratio] 12.5 % Normal 11.8-14.4 [facility] Comment on above: Performed By: #### C DP, CP, UMICAO, PT, PTT, UAX #### [address] [place], [place] 1121283 Fancy Packer: Oliver Cabrera MD #### MRSANO #### [address] [address] Fancy Packer: Glenn Noyola MD [address] [place] [phone] Fancy Packer: Oliver Cabrera MD Hematocrit (Bld) [Volume fraction] 40.4 % Low 40.7-50.3 [facility] Comment on above: Performed By: #### C DP, CP, UMICAO, PT, PTT, UAX #### [address] [place], [place] 0662783 Fancy Packer: Oliver Cabrera MD #### MRSANO #### [facility] [address] [place] [address] Fancy Packer: Glenn Noyola MD [address] [place] [address] Fancy Packer: Oliver Cabrera MD Hemoglobin (Bld) [Mass/Vol] 13.7 g/dL Normal 13.0-17.0 [facility] Comment on above: Performed By: #### C DP, CP, UMICAO, PT, PTT, UAX #### [address] [place] [id number] Fancy Packer: Oliver Cabrera MD #### MRSANO #### [address] [address] Fancy Packer: Glenn Noyola MD [address] [place] [address] Fancy Packer: Oliver Cabrera MD Immature granulocytes/100 WBC (Bld) 1 % High 0 [facility] Comment on above: Performed By: #### C DP, CP, UMICAO, PT, PTT, UAX #### [address] [place] [address] Fancy Packer: Oliver Cabrera MD #### MRSANO #### [address] [address] Fancy Packer: Glenn Noyola MD [address] [place] [address] Fancy Packer: Oliver Cabrera MD Lymphocytes (Bld) [#/Vol] 1.47 10*3/uL Normal 1.10-3.70 [facility] Comment on above: Performed By: #### C DP, CP, UMICAO, PT, PTT, UAX #### [address] [place] [phone] Fancy Packer: Oliver Cabrera MD #### MRSANO #### [facility] [address] [place], [place] [id number] Fancy Packer: Glenn Noyola MD [address] [place], [place] 9680183 Fancy Packer: Oliver Cabrera MD Lymphocytes/100 WBC (Bld) 12 % Low 24-43 [facility] Comment on above: Performed By: #### C DP, CP, UMICAO, PT, PTT, UAX #### [address] [place], [place] [phone] Fancy Packer: Oliver Cabrera MD #### MRSANO #### [facility] [address] [place], [place] 6458[address] Fancy Packer: Glenn Noyola MD [address] [place] [phone] Fancy Packer: Oliver Cabrera MD MCH (RBC) [Entitic mass] 30.4 pg Normal 25.2-33.5 [facility] Comment on above: Performed By: #### C DP, CP, UMICAO, PT, PTT, UAX #### [address] [place], [place] 3430883 Fancy Packer: Oliver Cabrera MD #### MRSANO #### [facility] [address] [place] [address] Fancy Packer: Glenn Noyola MD [address] [place] [phone] Fancy Packer: Oliver Cabrera MD MCHC (RBC) [Mass/Vol] 33.9 g/dL Normal 28.4-34.8 [facility] Comment on above: Performed By: #### C DP, CP, UMICAO, PT, PTT, UAX #### [address] [place], [place] 7082283 Fancy Packer: Oliver Cabrera MD #### MRSANO #### [address] [place] [address] Fancy Packer: Glenn Noyola MD [address] [place] [address] Fancy Packer: Oliver Cabrera MD MCV (RBC) [Entitic vol] 89.8 fL Normal 82.6-102.9 [facility] Comment on above: Performed By: #### C DP, CP, UMICAO, PT, PTT, UAX #### [address] [place] [address] Fancy Packer: Oliver Cabrera MD #### MRSANO #### [place] [address] Fancy Packer: Glenn Noyola MD [address] [place] [address] Fancy Packer: Oliver Cabrera MD Monocytes (Bld) [#/Vol] 0.73 10*3/uL Normal 0.10-1.20 [facility] Comment on above: Performed By: #### C DP, CP, UMICAO, PT, PTT, UAX #### [address] [place] [address] Fancy Packer: Oliver Cabrera MD #### MRSANO #### [place] [address] Fancy Packer: Glenn Noyola MD [address] [place] [address] Fancy Packer: Oliver Cabrera MD Monocytes/100 WBC (Bld) 6 % Normal 3-12 [facility] Comment on above: Performed By: #### C DP, CP, UMICAO, PT, PTT, UAX #### [address] [place] [address] Fancy Packer: Oliver Cabrera MD #### MRSANO #### [facility] [address] [place] [address] Fancy Packer: Glenn Noyola MD [address] [place], [place] 589[address]83 Fancy Packer: Oliver Cabrera MD Neutrophil (Seg) 71 % High 36-65 [facility] Comment on above: Performed By: #### C DP, CP, UMICAO, PT, PTT, UAX #### [address] [place], [place] 8455783 Fancy Packer: Oliver Cabrera MD #### MRSANO #### [address] [place] [address] Fancy Packer: Glenn Noyola MD [address] [place] [address] Fancy Packer: Oliver Cabrera MD NRBC Automated 0.0 per 100 WBC Normal 0.0 [facility] Comment on above: Performed By: #### C DP, CP, UMICAO, PT, PTT, UAX #### [address] [place], [place] 8421783 Fancy Packer: Oliver Cabrera MD #### MRSANO #### [address] [address] Fancy Packer: Glenn Noyola MD [address] [place] [phone] Fancy Packer: Oliver Cabrera MD Platelet mean volume (Bld) [Entitic vol] 9.3 fL Normal 8.1-13.5 [facility] Comment on above: Performed By: #### C DP, CP, UMICAO, PT, PTT, UAX #### [address] [place], [place] 4853083 Fancy Packer: Oliver Cabrera MD #### MRSANO #### [facility] [address] [place] [address] Fancy Packer: Glenn Noyola MD [address] [place] [address] Fancy Packer: Oliver Cabrera MD Platelets (Bld) [#/Vol] 162 10*3/uL Normal 138-453 [facility] Comment on above: Performed By: #### C DP, CP, UMICAO, PT, PTT, UAX #### [address] [place] [address] Fancy Packer: Oliver Cabrera MD #### MRSANO #### [facility] [address] [place] [address] Fancy Packer: Glenn Noyola MD [address] [place] [address] Fancy Packer: Oliver Cabrera MD RBC (Bld) [#/Vol] 4.50 10*6/uL Normal 4.21-5.77 [facility] Comment on above: Performed By: #### C DP, CP, UMICAO, PT, PTT, UAX #### [address] [place] [address] Fancy Packer: Oliver Cabrera MD #### MRSANO #### [facility] [address] [place] [address] Fancy Packer: Glenn Noyola MD [address] [place] [address] Fancy Packer: Oliver Cabrera MD WBC (Bld) [#/Vol] 12.3 10*3/uL High 3.5-11.3 [facility] Comment on above: Performed By: #### C DP, CP, UMICAO, PT, PTT, UAX #### [address] [place], [place] 2930683 Fancy Packer: Oliver Cabrera MD #### MRSANO #### [facility] [address] [place] [address] Fancy Packer: Glenn Noyola MD [address] [place], [place] [phone] Fancy Packer: Oliver Cabrera MD Comp Metabolic Profon 2022 Albumin [Mass/Vol] 4.2 g/dL Normal 3.5-5.2 [facility] Comment on above: Performed By: #### C DP, CP, UMICAO, PT, PTT, UAX #### [address] [place], [place] 9091183 Fancy Packer: Oliver Cabrera MD #### MRSANO #### [address] [address] Fancy Packer: Glenn Noyola MD [address] [place] [phone] Fancy Packer: Oliver Cabrera MD Albumin/Glob Ratio 1.6 Normal 1.0-2.5 [facility] Comment on above: Performed By: #### C DP, CP, UMICAO, PT, PTT, UAX #### [address] [place], [place] 942[address]83 Fancy Packer: Oliver Cabrera MD #### MRSANO #### [address] [address] Fancy Packer: Glenn Noyola MD [address] [place], [place] 5133183 Fancy Packer: Oliver Cabrera MD Alkaline Phos 132 U/L High 40-129 [facility] Comment on above: Performed By: #### C DP, CP, UMICAO, PT, PTT, UAX #### [address] [place] [address] Fancy Packer: Oliver Cabrera MD #### MRSANO #### [facility] [address] [place] [address] Fancy Packer: Glenn Noyola MD [address] [place] [address] Fancy Packer: Oliver Cabrera MD ALT [Catalytic activity/Vol] 102 U/L High 5-41 [facility] Comment on above: Performed By: #### C DP, CP, UMICAO, PT, PTT, UAX #### [address] [place] [address] Fancy Packer: Oliver Cabrera MD #### MRSANO #### [facility] [address] [place] [address] Fancy Packer: Glenn Noyola MD [address] [place] [address] Fancy Packer: Oliver Cabrera MD Anion gap [Moles/Vol] 10 mmol/L Normal 9-17 [facility] Comment on above: Performed By: #### C DP, CP, UMICAO, PT, PTT, UAX #### [address] [place] [address] Fancy Packer: Oliver Cabrera MD #### MRSANO #### [facility] [address] [place] [address] Fancy Packer: Glenn Noyola MD [facility] [address] [place] [address] [place] [address] Fancy Packer: Oliver Cabrera MD AST [Catalytic activity/Vol] 33 U/L Normal <40 [facility] Comment on above: Performed By: #### C DP, CP, UMICAO, PT, PTT, UAX #### [facility] [address] [place] [address] [place], [place] [id number] Fancy Packer: Oliver Cabrera MD #### MRSANO #### [facility] [address] [place] [address] Fancy Packer: Glenn Noyola MD [address] [place] [address] Fancy Packer: Oliver Cabrera MD Bilirubin [Mass/Vol] 0.5 mg/dL Normal 0.3-1.2 [facility] Comment on above: Performed By: #### C DP, CP, UMICAO, PT, PTT, UAX #### [address] [place], [place] 2305483 Fancy Packer: Oliver Cabrera MD #### MRSANO #### [address] [address] Fancy Packer: Glenn Noyola MD [address] [place] [address] Fancy Packer: Oliver Cabrera MD BUN/CRE Ratio 18 Normal 9-20 [facility] Comment on above: Performed By: #### C DP, CP, UMICAO, PT, PTT, UAX #### [address] [place] [address] Fancy Packer: Oliver Cabrera MD #### MRSANO #### [address] [address] Fancy Packer: Glenn Noyola MD [address] [place], [place] 9036183 Fancy Packer: Oliver Cabrera MD Calcium [Mass/Vol] 9.6 mg/dL Normal 8.6-10.4 [facility] Comment on above: Performed By: #### C DP, CP, UMICAO, PT, PTT, UAX #### [address] [place], [place] [id number] Fancy Packer: Oliver Cabrera MD #### MRSANO #### [facility] [address] [place] [address] Fancy Packer: Glenn Noyola MD [address] [place], [place] 0129483 Fancy Packer: Oliver Cabrera MD Chloride [Moles/Vol] 95 mmol/L Low 98-107 [facility] Comment on above: Performed By: #### C DP, CP, UMICAO, PT, PTT, UAX #### [address] [place] [address] Fancy Packer: Oliver Cabrera MD #### MRSANO #### [address] [address] Fancy Packer: Glenn Noyola MD [address] [place], [place] [id number] Fancy Packer: Oliver Cabrera MD CO2 [Moles/Vol] 26 mmol/L Normal 20-[address] [facility] Comment on above: Performed By: #### C DP, CP, UMICAO, PT, PTT, UAX #### [address] [place], [place] [address] Fancy Packer: Oliver Cabrera MD #### MRSANO #### [address] [address] Fancy Packer: Glenn Noyola MD [address] [place] [address] Fancy Packer: Oliver Cabrera MD Creatinine [Mass/Vol] 0.8 mg/dL Normal 0.7-1.2 [facility] Comment on above: Performed By: #### C DP, CP, UMICAO, PT, PTT, UAX #### [address] [place] [address] Fancy Packer: Oliver Cabrera MD #### MRSANO #### [address] [place] [address] Fancy Packer: Glenn Noyola MD [address] [place], [place] 1840183 Fancy Packer: Oliver Cabrera MD GFR/1.73 sq M.predicted among non-blacks MDRD (S/P/Bld) [Vol rate/Area] mL/min/{1.73_m2} Normal >60 [facility] Comment on above: Result Comment: These [...] DP, CP, UMICAO, PT, PTT, UAX #### [address] [place], [place] 1125883 Fancy Packer: Oliver Cabrera MD #### MRSANO #### [facility] [address] [place] [address] Fancy Packer: Glenn Noyola MD [address] [place] [id number] Fancy Packer: Oliver Cabrera MD Glucose [Mass/Vol] 332 mg/dL High 70-99 [facility] Comment on above: Performed By: #### C DP, CP, UMICAO, PT, PTT, UAX #### [address] [place], [place] 1610883 Fancy Packer: Oliver Cabrera MD #### MRSANO #### [facility] [address] [place] [address] Fancy Packer: Glenn Noyola MD [address] [place], [place] 6719683 Fancy Packer: Oliver Cabrera MD Potassium [Moles/Vol] 5.0 mmol/L Normal 3.7-5.3 [facility] Comment on above: Performed By: #### C UZMA AMEZQUITA, UMICAO, PT, PTT, UAX #### [address] [place] [address] Fancy Packer: Oliver Cabrera MD #### MRSANO #### [facility] [address] [place] [address] Fancy Packer: Glenn Noyola MD [address] [place] [address] Fancy Packer: Oliver Cabrera MD Protein [Mass/Vol] 6.9 g/dL Normal 6.4-8.3 [facility] Comment on above: Performed By: #### C UZMA AMEZQUITA, UMICAO, PT, PTT, UAX #### [address] [place] [address] Fancy Packer: Oliver Cabrera MD #### MRSANO #### [facility] [address] [place] [address] Fancy Packer: Glenn Noyola MD [address] [place] [address] Fancy Packer: Oliver Cabrera MD Sodium [Moles/Vol] 131 mmol/L Low 135-144 [facility] Comment on above: Performed By: #### C UZMA AMEZQUITA, UMICAO, PT, PTT, UAX #### [address] [place] [address] Fancy Packer: Oliver Cabrera MD #### MRSANO #### [facility] [address] [place] [address] Fancy Packer: Glenn Noyola MD [address] [place], [place] 6267483 Fancy Packer: Oliver Cabrera MD Urea nitrogen [Mass/Vol] 14 mg/dL Normal 06-10 [facility] Comment on above: Performed By: #### C DP, CP, UMICAO, PT, PTT, UAX #### [facility] [address] [place] [address] Fancy Packer: Oliver Cabrera MD #### MRSANO #### [facility] [address] [place] [address] Fancy Packer: Glenn Noyola MD [facility] [address] [place] [address] Fancy Packer: Oliver Cabrera MD Comprehensive Metabolic Pane [facility] 06-10-2023 Albumin [Mass/Vol] 4.2 g/dL 3.5 - 5.2 g/dL [facility] Albumin/Globulin [Mass ratio] 1.6 {ratio} 1.0 - 2.5 [facility] ALP [Catalytic activity/Vol] 132 U/L High 40 - 129 U/L [facility] ALT [Catalytic activity/Vol] 102 U/L High 5 - 41 U/L [facility] Anion gap [Moles/Vol] 10 mmol/L 9 - 17 mmol/L [facility] AST [Catalytic activity/Vol] 33 U/L NINF - 40 U/L [facility] Bilirubin [Mass/Vol] 0.5 mg/dL 0.3 - 1.2 mg/dL [facility] Calcium [Mass/Vol] 9.6 mg/dL 8.6 - 10. 4 mg/dL [facility] Chloride [Moles/Vol] 95 mmol/L Low 98 - 107 mmol/L [facility] CO2 [Moles/Vol] 26 mmol/L 20 - 31 mmol/L [facility] Creatinine [Mass/Vol] 0.8 mg/dL 0.7 - 1.2 mg/dL [facility] GFR/1.73 sq M.predicted MDRD (S/P/Bld) [Vol rate/Area] - PINF [facility] Comment on above: These results are [...] 332 mg/dL High 70 - 99 mg/dL [facility] Interpretation and review of laboratory results Abnormal [facility] Potassium [Moles/Vol] 5.0 mmol/L 3.7 - 5.3 mmol/L [facility] Protein [Mass/Vol] 6.9 g/dL 6.4 - 8.3 g/dL [facility] Sodium [Moles/Vol] 131 mmol/L Low 135 - 144 mmol/L [facility] Urea nitrogen [Mass/Vol] 14 mg/dL 8 - 23 mg/dL [facility] Urea nitrogen/Creatinine [Mass ratio] 18 mg/mg 9 - 20 [facility] MRSA, DNA, Nasalon 3 Specimen Description .NASAL SWAB Normal [facility] Comment on above: Performed By: #### C DP, CP, UMICAO, PT, PTT, UAX #### [facility] [address] [place] [address] [place] [address] Fancy Packer: Oliver Cabrera MD #### MRSANO #### [address] [address] Fancy Packer: Glenn Noyola MD [facility] [address] [place] [address] [place] [address] Fancy Packer: Oliver Cabrera MD Microscopic Urinalysison Bacteria LM Ql (Urine sed) TRACE Abnormal None [facility] Epithelial cells LM.HPF (Urine sed) [#/Area] 0 TO 2 [facility] Interpretation and review of laboratory results Abnormal [facility] Mucus Ql (Urine sed) TRACE Abnormal None [facility] RBC LM.HPF (Urine sed) [#/Area] 0 TO 2 [facility] WBC LM.HPF (Urine sed) [#/Area] 0 TO 2 [facility] PTon 06-10-2023 INR Coag (PPP) [Relative time] 10.1 {INR} Critically high [facility] Comment on above: Result Comment: Therapeutic Range: Moderate Anticoagulant Intensity: INR = 2.0-3.0 High Anticoagulant Intensity: INR = 2.5-3.5 Performed By: #### C DP, CP, UMICAO, PT, PTT, UAX #### [address] [place], [place] 2154583 Fancy Packer: Oliver Cabrera MD #### MRSANO #### [place] [address] [place], [place] 5295108 Fancy Packer: Glenn Noyola MD [address] [place] [id number] Fancy Packer: Oliver Cabrera MD PT Coag (PPP) [Time] 80.7 s High 11.9-14.8 [facility] Comment on above: Performed By: #### C DP, CP, UMICAO, PT, PTT, UAX #### [address] [place], [place] 3986583 Fancy Packer: Oliver Cabrera MD #### MRSANO #### [address] [id number] Fancy Packer: Glenn Noyola MD [address] [place], [facility]83 Fancy Packer: Oliver Cabrera MD Protime-INRon 06-10-2023 INR Coag (PPP) [Relative time] 10.1 {INR} Critically high [facility] Comment on above: Therapeutic Range: Moderate Anticoagulant Intensity: INR = 2.0-3.0 High Anticoagulant Intensity: INR = 2.5-3.5 Interpretation and review of laboratory results Abnormal [facility] PT Coag (PPP) [Time] 80.7 s High [facility] TYPE AND SCREENon 06-10-2023 ABO and Rh group Nom (Bld) Blood group A Rh(D) positive [facility] Arm Band Number [id number] [facility] Blood Bank Sample Expiration 06/13/2023,2359 [facility] Blood group antibodies identified Nom Negative [facility] Type + Screenon 06-10-2023 Type + Screen Sample Expiration 06/13/2023,2359 Arm Band Number [id number] ABO/Rh(D) A POSITIVE Antibody Screen NEGATIVE Normal [facility] Comment on above: Performed By: #### H H, BMP #### [address] [place] [address] Fancy Packer: Oliver Cabrera MD UA w/Reflex Cultureon 2022 Bilirubin, SemiQt,Ur Negative Normal NEG [facility] Comment on above: Performed By: #### C DP, CP, UMICAO, PT, PTT, UAX #### [address] [place], [place] 8434983 Fancy Packer: Oliver Cabrera MD #### MRSANO #### [address] [phone] Fancy Packer: Glenn Noyola MD [address] [place] [phone] Fancy Packer: Oliver Cabrera MD Blood, Urine Negative Normal [facility] Comment on above: Performed By: #### C DP, CP, UMICAO, PT, PTT, UAX #### [address] [place] [address] Fancy Packer: Oliver Cabrera MD #### MRSANO #### [address] [address] Fancy Packer: Glenn Noyola MD [address] [place] [address] Fancy Packer: Oliver Cabrera MD Clarity (U) Clear Normal CLEAR [facility] Comment on above: Performed By: #### C DP, CP, UMICAO, PT, PTT, UAX #### [address] [place] [address] Fancy Packer: Oliver Cabrera MD #### MRSANO #### [facility] [address] [place] [address] Fancy Packer: Glenn Noyola MD [address] [place] [address] Fancy Packer: Oliver Cabrera MD Color (U) Yellow Normal YEL [facility] Comment on above: Performed By: #### C DP, CP, UMICAO, PT, PTT, UAX #### [address] [place] [address] Fancy Packer: Oliver Cabrera MD #### MRSANO #### [facility] [address] [place] [address] Fancy Packer: Glenn Noyola MD [address] [place] [address] Fancy Packer: Oliver Cabrera MD Glucose Ql (U) 2+ mg/dL Abnormal NEG [facility] Comment on above: Performed By: #### C DP, CP, UMICAO, PT, PTT, UAX #### [facility] [address] [place] [address] [place] [address] Fancy Packer: Oliver Cabrera MD #### MRSANO #### [facility] [address] [place] [address] Fancy Packer: Glenn Noyola MD [address] [place] [address] Fancy Packer: Oliver Cabrera MD Ketones Ql (U) Negative Normal NEG [place] Comment on above: Performed By: #### C DP, CP, UMICAO, PT, PTT, UAX #### [address] [place] [address] Fancy Packer: Oliver Cabrera MD #### MRSANO #### [address] [address] Fancy Packer: Glenn Noyola MD [address] [place] [address] Fancy Packer: Oliver Cabrera MD Leukocyte esterase Test strip Ql (U) Negative Normal NEG [facility] Comment on above: Performed By: #### C DP, CP, UMICAO, PT, PTT, UAX #### [address] [place] [address] Fancy Packer: Oliver Cabrera MD #### MRSANO #### [address] [address] Fancy Packer: Glenn Noyola MD [address] [place] [address] Fancy Packer: Oliver Cabrera MD Nitrite,Ur Negative Normal NEG [facility] Comment on above: Performed By: #### C DP, CP, UMICAO, PT, PTT, UAX #### [address] [place] [address] Fancy Packer: Oliver Cabrera MD #### MRSANO #### [address] [address] Fancy Packer: Glenn Noyola MD [address] [place] [address] Fancy Packer: Oliver Cabrera MD PH,Ur 6.5 Normal 5.0-9.0 [facility] Comment on above: Performed By: #### C DP, CP, UMICAO, PT, PTT, UAX #### [address] [place] [address] Fancy Packer: Oliver Cabrera MD #### MRSANO #### [address] [place] [address] Fancy Packer: Glenn Noyola MD [address] [place] [address] Fancy Packer: Oliver Cabrera MD Protein Ql (U) Negative Normal NEG [place] Comment on above: Performed By: #### C DP, CP, UMICAO, PT, PTT, UAX #### [address] [place] [address] Fancy Packer: Oliver Cabrera MD #### MRSANO #### [address] [address] Fancy Packer: Glenn Noyola MD [address] [place] [address] Fancy Packer: Oliver Cabrera MD Spec. Hamel,Ur <1.005 Low 1.010-1.020 [facility] Comment on above: Performed By: #### C DP, CP, UMICAO, PT, PTT, UAX #### [address] [place] [address] Fancy Packer: Oliver Cabrera MD #### MRSANO #### [address] [address] Fancy Packer: Glenn Noyola MD [address] [place] [address] Fancy Packer: Oliver Cabrera MD Urobilinogen,Ur Normal Normal 0.0-1.[address] [facility] Comment on above: Performed By: #### C DP, CP, UMICAO, PT, PTT, UAX #### [address] [place] [address] Fancy Packer: Oliver Cabrera MD #### MRSANO #### [facility] [address] [place], [place] [id number] Fancy Packer: Glenn Noyola MD [facility] [address] [place] [address] [place] [address] Fancy Packer: Oliver Cabrera MD Urinalysis with Reflex to Cu ltureon 06-10-2023 Bilirubin Ql (U) Negative NEGATIVE [facility] Clarity (U) Clear Clear [facility] Color (U) Yellow Yellow [facility] Glucose Test strip (U) [Mass/Vol] 2+ Abnormal NEGATIVE mg/dL [facility] Hemoglobin Auto test strip Ql (U) Negative NEGATIVE [facility] Interpretation and review of laboratory results Abnormal [facility] Ketones (U) [Mass/Vol] Negative NEGATIVE mg/dL [facility] Leukocyte esterase Test strip Ql (U) Negative NEGATIVE [facility] Nitrite Ql (U) Negative NEGATIVE [facility] pH (U) 6.5 [pH] 5.0 - 9.0 [facility] Protein (U) [Mass/Vol] Negative NEGATIVE mg/dL [facility] Specific gravity (U) [Rel density] Low 1.010 - 1.020 [facility] Urobilinogen Qn (U) Normal 0.0 - 1. 0 EU/dL [facility] Urinalysis,Microon 3 Bacteria TRACE Abnormal NONE [facility] Comment on above: Performed By: #### C DP, CP, UMICAO, PT, PTT, UAX #### [facility] [address] [place] [address] [place] [address] Fancy Packer: Oliver Cabrera MD #### MRSANO #### [facility] [address] [place], [place] 3783508 Fancy Packer: Glenn Noyola MD [facility] [address] [place] [address] [place] [address] Fancy Packer: Oliver Cabrera MD Epithelial cells LM Ql (Urine sed) 0 TO 2 Normal 0-5 [facility] Comment on above: Performed By: #### C DP, CP, UMICAO, PT, PTT, UAX #### [facility] [address] [place] [address] [place] [address] Fancy Packer: Oliver Cabrera MD #### MRSANO #### [address] [address] Fancy Packer: Glenn Noyola MD [address] [place] [address] Fancy Packer: Oliver Cabrera MD Mucus Strands TRACE Abnormal NONE [facility] Comment on above: Performed By: #### C DP, CP, UMICAO, PT, PTT, UAX #### [address] [place] [phone] Fancy Packer: Oliver Cabrera MD #### MRSANO #### [address] [address] Fancy Packer: Glenn Noyola MD [address] [place] [address] Fancy Packer: Oliver Cabrera MD Urine RBC's 0 TO 2 Normal 0-2 [facility] Comment on above: Performed By: #### C DP, CP, UMICAO, PT, PTT, UAX #### [address] [place] [address] Fancy Packer: Oliver Cabrera MD #### MRSANO #### [address] [address] Fancy Packer: Glenn Noyola MD [address] [place], [place] 2344683 Fancy Packer: Oliver Cabrera MD Urine WBC's 0 TO 2 Normal 0-5 [facility] Comment on above: Performed By: #### C DP, CP, UMICAO, PT, PTT, UAX #### [facility] [address] [place] [address] Fancy Packer: Oliver Cabrera MD #### MRSANO #### [address] [place], [place] 0512708 Fancy Packer: Glenn Noyola MD [facility] [address] [place] [address] Fancy Packer: Oliver Cabrera MD XR CHEST (2 VW)on 06-10-2023 Radiology Study observation (narrative) [facility] CARDIAC STRESS/REST INJE CTIONon 05-25-2023 [facility] CARDIAC STRESS/REST INJECTION Patient Name: JOIE LU STUDY: MYOCARDIAL PERFUSION STRESS TEST WITH LEXISCAN Performing facility: [facility], [address] [place] [address], [address], [place] [address] [facility] Provider: Mily Marlow MD PCP: Dr. Alvarado Supervising provider: Keira Boles MD, [facility] INDICATION: Abnormal EKG; HTN Pre-operative risk assessment for Knee scheduled at [facility] on [facility]. HISTORY: Gender: M; Age: 68 y/o ; Height: 0 cm; Weight: 947.4343392 kg. High Cholesterol; Abnormal EKG; Diabetes; HTN; Quit smoking 40 years ago. Cardiac catheterization on 2007 per patient. COMPARISON: No comparison. ACCESSION NUMBER(S): [id number]; [id number]; [id number] ORDERING CLINICIAN: MILY MARLOW TECHNIQUE: TWO DAY [...] Electronically signed by: GISELE HWANG MD Normal [facility] No Panel Informationon 05-25 Normal -[place] [address] DO Work Phone: CT chest w conon 04-14-2023 CT chest w [facility] [place] [address] [place] [address] CT Scan Report Signed Patient: Joie Lu MR#: [id number] : 1955 Acct:[id number] Age/Sex: 67 / M ADM Date: 04/14/23 Loc: CT Room: Type: [facility] Attending Dr: Agustin Nj MD [...] Alexander Cleveland M.D.04/14/2023 3:15 PM Dictation Location: [place] [address] Transcribed By: [facility] 04/14/23 1515 Dictated By: Alexander [place] DO 04/14/23 1504 Signed By: 04/14/23 1515 Normal [facility] Creatinine (Bld) [Mass/Vol]O rdered By: Agustin Nj on 04-14-2023 Creatinine [Mass/Vol] 0.7 mg/dL 0.6-1.3 [facility] Comment on above: ER/ESD physician is notified/shown [...] HOURS NEE (more content not included)... Normal [facility] XR Chest 2 Viewson 3 XR [...] mGy = 0 DAP = 0 Normal [facility] ABO/Rh Retypeon 03-27-2023 ABO/Rh Retype Interp Positive Invalid Interpretation Code [facility] Comment on above: Performed By: #### 1 [id number] #### [facility] [address] [place] [address] BUNon 03-27-2023 Urea nitrogen [Mass/Vol] 16 mg/dL Normal 5-21 [facility] Comment on above: Performed By: #### 2 548656, 3575996, 9987058, 27351603, 7441598, 6711305 #### [facility] [address] [place] [address] CBC w/Indiceson 03-27-2023 Erythrocyte distribution width (RBC) [Ratio] 12.5 % Normal 10.9-14.2 [facility] Comment on above: Performed By: #### 2 165216, 2844427, 7437627, 96826770, 0523806, 2250012 #### [facility] [address] [place] [address] Hematocrit (Bld) [Volume fraction] 41.1 % Normal 37.7-49.0 [facility] Comment on above: Performed By: #### 2 740721, 3625542, 2676284, 90951867, 5683656, 8658044 #### [facility] [address] [place] [address] Hemoglobin (Bld) [Mass/Vol] 13.9 g/dL Normal 13.5-17.5 [facility] Comment on above: Performed By: #### 2 351309, 8561440, 8930242, 27048693, 2868888, 4139065 #### [facility] [address] [place], [place] [address] MCH (RBC) [Entitic mass] 29.9 pg Normal 27.0-34.0 [facility] Comment on above: Performed By: #### 2 472668, 8779036, 9102781, 14772187, 4206362, 7133119 #### [facility] [address] [place], [place] [address] MCHC (RBC) [Mass/Vol] 33.8 g/dL Normal 31.4-36.0 [facility] Comment on above: Performed By: #### 2 085127, 2976868, 0548227, 67179763, 1225918, 4719297 #### [facility] [address] [place], [place] [address] MCV (RBC) [Entitic vol] 88.5 fL Normal 80.0-100.0 [facility] Comment on above: Performed By: #### 2 739244, 3165263, 6149417, 08409788, 4639692, 5888142 #### [facility] [address] [place] [address] Platelet mean volume (Bld) [Entitic vol] 7.6 fL Normal 6.4-10.8 [facility] Comment on above: Performed By: #### 2 507791, 1218427, 9616444, 05346884, 3928137, 9569572 #### [facility] [address] [place] [address] Platelets (Bld) [#/Vol] 168.0 E9/L Normal 150.0-500.0 [facility] Comment on above: Performed By: #### 2 648258, 1114085, 6336049, 48872685, 1022150, 6832951 #### [facility] [address] [place], [place] [address] RBC (Bld) [#/Vol] 4.6 E12/L Normal 4.3-5.9 [facility] Comment on above: Performed By: #### 2 032104, 2020219, 7714428, 88805154, 4800753, 9937490 #### [facility] [address] [place] [address] WBC corrected for nucl RBC Auto (Bld) [#/Vol] 8.8 E9/L Normal 4.0-11.0 [facility] Comment on above: Performed By: #### 2 736493, 0097203, 8538636, 00130237, 5168387, 0527751 #### [facility] [address] [place] [address] Consent for Treatmenton Consent for Treatment [id number] Normal [facility] Creatinineon 03-27-2023 Creatinine [Mass/Vol] 1.0 mg/dL Normal 0.5-1.3 [facility] Comment on above: Performed By: #### 2 589444, 3879217, 1717472, 67237504, 0291079, 0856247 #### [facility] [address] [place] [address] Glucoseon 03-27-2023 Glucose [Mass/Vol] 332 mg/dL High 55-199 [facility] Comment on above: Performed By: #### 2 824049, 8372367, 0710204, 76619549, 9666047, 0763053 #### [facility] [address] [place] [address] Lyteson 03-27-2023 Anion gap [Moles/Vol] 13 mmol/L Normal 6-16 [facility] Comment on above: Performed By: #### 2 375550, 8475959, 3026210, 94714236, 9718004, 2947427 #### [facility] [address] [place] [address] Chloride [Moles/Vol] 97 mmol/L Low 101-111 [facility] Comment on above: Performed By: #### 2 071492, 8849140, 3085707, 65095337, 1522099, 1129006 #### [facility] [address] [place] [address] CO2 [Moles/Vol] 24 mmol/L Normal 21-31 [facility] Comment on above: Performed By: #### 2 736292, 0935365, 3908992, 34994168, 5276482, 8068601 #### [facility] [address] [place] [address] Potassium [Moles/Vol] 4.3 mmol/L Normal 3.5-5.3 [facility] Comment on above: Performed By: #### 2 494355, 8003949, 6773747, 05669447, 3725344, 6939215 #### [facility] [address] [place] [address] Sodium [Moles/Vol] 130 mmol/L Low 135-145 [facility] Comment on above: Performed By: #### 2 651405, 0031837, 8326223, 97604341, 9087765, 2554649 #### [facility] [address] [place] [address] UA With Cult Reflexon 2022 Bilirubin Ql (U) Negative Normal Negative [facility] Comment on above: Performed By: #### 1 6859065 #### [facility] [address] [place] [address] Clarity (U) CLEAR Normal Clear [facility] Comment on above: Performed By: #### 1 [id number] #### [facility] [address] [place] [address] Color (U) YELLOW Normal Yellow [facility] Comment on above: Performed By: #### 1 0703380 #### [facility] [address] [place] [address] Epithelial cells.squamous LM.HPF (Urine sed) [#/Area] 0-2 Normal 0-2 [facility] Comment on above: Performed By: #### 1 8908597 #### [facility] [address] [place] [address] Glucose Test strip (U) [Mass/Vol] 2+ Abnormal Negative [facility] Comment on above: Performed By: #### 1 [id number] #### [facility] [address] [place] [address] Hemoglobin Ql (U) Negative Normal Negative [facility] Comment on above: Performed By: #### 1 6498108 #### [facility] [address] [place] [address] Ketones (U) [Mass/Vol] Negative Normal Negative [facility] Comment on above: Performed By: #### 1 [id number] #### [facility] [address] [place] [address] [place].plasma/Lith ium.RBC (Bld) [Mass ratio] 0-3 Normal 0-3 [facility] Comment on above: Performed By: #### 1 [id number] #### [facility] [address] [place] [address] Nitrite Ql (U) Negative Normal Negative [facility] Comment on above: Performed By: #### 1 [id number] #### [facility] [address] [place] [address] pH (U) 6.0 [pH] Invalid Interpretation Code 5.0-9.0 [facility] Comment on above: Performed By: #### 1 [id number] #### [facility] [address] [place] [address] Protein (U) [Mass/Vol] Negative Normal Negative [facility] Comment on above: Performed By: #### 1 [id number] #### [facility] [address] [place] [address] Specific gravity (U) [Rel density] 1.015 Invalid Interpretation Code 1.005-1.030 [facility] Comment on above: Performed By: #### 1 [id number] #### [facility] [address] [place] [address] Type of Urine collection method Clean Catch Normal [facility] Comment on above: Performed By: #### 1 [id number] #### [facility] [address] [place] [address] Urobilinogen Qn (U) 0.2 {Johanne'U}/dL Normal 0.0-1.0 [facility] Comment on above: Performed By: #### 1 [id number] #### [facility] [address] [place] [address] WBC Auto Ql (U) Negative Normal Negative [facility] Comment on above: Performed By: #### 1 [id number] #### [facility] [address] [place] [address] WBC LM.HPF (Urine sed) [#/Area] 0-5 Normal 0-5 [facility] Comment on above: Performed By: #### 1 [id number] #### [facility] [address] [place] [address] eGFRon 03-27-2023 GFR/1.73 sq M.predicted among non-blacks MDRD (S/P/Bld) [Vol rate/Area] 83 mL/min/1.73 m2 Normal >=59 [facility] Comment on above: Order Comment: Order added by Discern Expert. Result Comment: Special Educator helder kidney disease could be indicated at eGFR's of less than 60 mL/min/1.73m2. Kidney failure is indicated at less than 15 mL/min/1.73m2. Performed By: #### 2 [id number], [id number], [id number], [id number], [id number], [id number] #### [facility] [address] [place] [address] XR KNEE RT 4V or >on 023 [...] by: ANSELMO PIERRE Date: 2023-02-15 16:49 Normal [facility] XR LSPINE 2_3 VIEWSon 2022 XR LSPINE [...] by: CASSY MARTIN Date: 2023-01-30 19:57 Normal [facility] XR TIB_FIB LT 2Von XR TIB_FIB LT [...] by: CASSY MARTIN Date: 2023-01-30 19:56 Normal [facility] CNOVon 01-27-2023 CNOV Office Visit (OTOLMN ) JOIE LU JR ([id number]) 1955 M Date Time Provider Department 01/27/23 [...] for patient. (more content not included)... Normal [facility] CBC AUTO DIFFon 12-22-2022 BASO # 0.1 103/ul Normal 0.0-0.1 [facility] Comment on above: Performed By: #### C BC ####[facility] If[address]mc[address] [place], [place] [address]DrRenee Zhang Basophils/100 WBC (Bld) 0.6 % Normal 0.2-2.0 [facility] Comment on above: Performed By: #### C BC ####[facility] Gake[address]xr[address] [place], [place] [address]DrRenee Zhang EO # 0.6 103/ul Normal 0.0-0.7 [facility] Comment on above: Performed By: #### C BC ####[facility] [address] [place], [place] [address]DrRenee Zhang Eosinophils/100 WBC (Bld) 7.4 % Critically high 0.9-7.0 [facility] Comment on above: Performed By: #### C BC ####[facility] Ysw[address]xt[address] [place], [place] [address]DrRenee Zhang Erythrocyte distribution width (RBC) [Ratio] 12.4 % Normal 11.0-15.0 [facility] Comment on above: Performed By: #### C BC ####[facility] Qnneqtnqol[address] [place], [place] [address]DrRenee Zhang Hematocrit (Bld) [Volume fraction] 44.2 % Normal 42.0-54.0 [facility] Comment on above: Performed By: #### C BC ####[facility] Tcp[address] [place], [place] [address]Dr. Heidi Zhang Hemoglobin (Bld) [Mass/Vol] 15.4 g/dL Normal 14.0-18.0 [facility] Comment on above: Performed By: #### C BC ####[facility] [address] [place] [address]Dr. Heidi Zhang IG # 0.04 10e3/ul Critically high 0.00-0.03 [facility] Comment on above: Performed By: #### C BC ####[facility] [address] [place], [place] [address]Dr. Heidi Zhang IG % 0.5 % Normal 0.0-0.5 [facility] Comment on above: Performed By: #### C BC ####[facility] [address] [place], [place] [address]Dr. Heidi Zhang LYMPH # 1.4 103/ul Normal 1.2-3.8 [facility] Comment on above: Performed By: #### C BC ####[facility] Pywcfl[address] [place], [place] [address]Dr. Heidi Zhang Lymphocytes/100 WBC (Bld) 18.4 % Critically low 20.5-60.0 [facility] Comment on above: Performed By: #### C BC ####[facility] Y[address]usfelq[address] [place], [place] [address]Dr. Heidi Zhang MANUAL DIFF REQ NO Normal [facility] Comment on above: Performed By: #### C BC ####[facility] Zyiacjws[address] [place], [place] [address]Dr. Heidi Zhang MCH (RBC) [Entitic mass] 31.1 pg Normal 25.9-34.0 [facility] Comment on above: Performed By: #### C BC ####[facility] Wfctawnaqh[address] [place], [place] [address]Dr. Heidi Zhang MCHC (RBC) [Mass/Vol] 34.8 g/dL Normal 29.9-35.2 [facility] Comment on above: Performed By: #### C BC ####[facility] X[address] [place], [place] [address]Dr. Heidi Zhang MCV (RBC) [Entitic vol] 89.3 fL Normal 80.0-94.0 [facility] Comment on above: Performed By: #### C BC ####[facility] [address] [place] [address]DrRenee Zhang MONO # 0.6 103/ul Normal 0.3-0.8 [facility] Comment on above: Performed By: #### C BC ####[facility] Yajrs[address] [place], [place] [address]DrRenee Heidi Zhang Monocytes/100 WBC (Bld) 7.1 % Normal 1.7-12.0 [facility] Comment on above: Performed By: #### C BC ####[facility] Vmy[address]oi[address] [place], [place] [address]DrRenee Heidi Zhang NEUT # 5.1 103/ul Normal 1.4-6.5 [facility] Comment on above: Performed By: #### C BC ####[facility] [address] [place], [place] [address]Dr. Heidi Zhang Neutrophils/100 WBC (Bld) 66.0 % Normal 43.0-75.0 [facility] Comment on above: Performed By: #### C BC ####[facility] Tsp[address]ux[address] [place], [place] [address]DrRenee Heidi Zhang Platelet mean volume (Bld) [Entitic vol] 9.0 fL Critically low 9.5-13.5 [facility] Comment on above: Performed By: #### C BC ####[facility] F[address]tr[address] [place], [place] [address]DrRenee Heidi Vicente PLT 133 103/ul Critically low 150-450 [facility] Comment on above: Performed By: #### C BC ####[facility] [address] [place] [id number] Heidi Vicente RBC 4.95 106/ul Normal 4.70-6.10 [facility] Comment on above: Performed By: #### C BC ####[facility] [address]by[address] [place], [place] [address]Dr. Heidi Zhang WBC 7.7 103/ul Normal 4.0-11.0 [facility] Comment on above: Performed By: #### C BC ####[facility] [address] [place], [place] [address]QmDr. Heidi Zhang GLYCOHEMOGLOBIN A1Con 2022 ADA RECOMMENDATION SEE BELOW Normal [facility] Comment on above: Result Comment: ADA RECOMMENDED LIMIT 4.0 - 6.0 ADA THERAPEUTIC TARGET < 7.0 ACTION SUGGESTED > 7.0 Performed By: #### A 1C #### [facility] [address] [place], [place] [address] Dr. Heidi Zhang Glucose [Mass/Vol] 197 mg/dL Normal [facility] Comment on above: Performed By: #### A 1C #### [facility] [address] [place] [address] [address] Heidi Zhang HbA1c (Bld) [Mass fraction] 8.5 % Critically high 4.5-6.2 [facility] Comment on above: Performed By: #### A 1C #### [facility] [address] [place] [id number] Heidi Zhang LIPID PROFILEon 12-22-2022 CHOL-HDL RATIO NORM SEE BELOW Normal [facility] Comment on above: Result Comment: 3.3 - 4.4 LOW RISK 4.4 - 7.1 AVERAGE RISK 7.1 - 11.0 MODERATE RISK >11.0 HIGH RISK Performed By: #### L IPID, CMP ####[facility] [address] [place] [id number]. Heidi Zhang Cholesterol [Mass/Vol] 152 mg/dL Normal <=200 [facility] Comment on above: Performed By: #### L IPID, CMP ####[facility] [address] [place] [id number]. Heidi Zhang Cholesterol in HDL [Mass/Vol] 43 mg/dL Normal 40-60 [facility] Comment on above: Performed By: #### L IPID, CMP ####[facility] [address] [place] [id number]. Heidi Zhang Cholesterol in LDL [Mass/Vol] 75.4 mg/dL Normal [facility] Comment on above: Performed By: #### L IPID, CMP ####[facility] [address] [place] [address]Dr. Heidi Zhang Cholesterol.total/C holesterol in HDL [Mass ratio] 3.5 {ratio} Normal [facility] Comment on above: Performed By: #### L IPID, CMP ####[facility] [address] [place] [id number] Zhang HDL NORMAL > or = 60 mg/dl - LO W CARDIOVASCULAR RISK <40 mg/dl - HIGH CARDIOVASCULAR RISK Normal [facility] Comment on above: Performed By: #### L IPID, CMP ####[facility] [address] [place] [address]Dr. Heidi Zhang LDL CALC NORMAL SEE BELOW Normal [facility] Comment on above: Result Comment: <100 mg/dl OPTIMAL 100 - 129 mg/dl NEAR OR ABOVE OPTIMAL 130 - 159 mg/dl BORDERLINE HIGH 160 - 189 mg/dl HIGH >190 mg/dl VERY HIGH Performed By: #### L IPID, CMP ####[facility] [address] [place] [id number]. Heidi Zhang Triglyceride [Mass/Vol] 168 mg/dL Critically high <=150 [facility] Comment on above: Performed By: #### L IPID, CMP ####[facility] [address] [place] [id number]. Heidi Zhang VLDL CALC 33.6 mg/dL Normal [facility] Comment on above: Performed By: #### L IPID, CMP ####[facility] [address] [place] [id number]. Heidi Zhang PROF 14(COMP METB)on 023 Albumin [Mass/Vol] 4.0 g/dL Normal 3.4-5.0 [facility] Comment on above: Performed By: #### L IPID, CMP #### [facility] [address] [place], [place] [address] Dr. Heidi Zhang Albumin/Globulin [Mass ratio] 1.4 {ratio} Normal [facility] Comment on above: Performed By: #### L IPID, CMP #### [facility] [address] [place] [address] [address] Heidi Zhang ALP [Catalytic activity/Vol] 75 U/L Normal 46-116 [facility] Comment on above: Performed By: #### L IPID, CMP #### [facility] [address] [place] [address] [address] Heidi Zhang ALT [Catalytic activity/Vol] 29 U/L Normal 16-63 [facility] Comment on above: Performed By: #### L IPID, CMP #### [facility] [address] [place] [address] [address] Heidi Zhang Anion gap [Moles/Vol] 12.1 mmol/L Normal [facility] Comment on above: Performed By: #### L IPID, CMP #### [facility] [address] [place] [address] [address] Heidi Zhang AST [Catalytic activity/Vol] 28 U/L Normal 15-37 [facility] Comment on above: Performed By: #### L IPID, CMP #### [facility] [address] [place] [address] [address] Heidi Zhang Bilirubin [Mass/Vol] 0.4 mg/dL Normal 0.2-1.0 [facility] Comment on above: Performed By: #### L IPID, CMP #### [facility] [address] [place] [address] [address] Heidi Zhang Calcium [Mass/Vol] 9.4 mg/dL Normal 8.5-10.1 [facility] Comment on above: Performed By: #### L IPID, CMP #### [facility] [address] [place] [address] [address] Heidi Zhang Chloride [Moles/Vol] 99 mmol/L Normal 98-107 [facility] Comment on above: Performed By: #### L IPID, CMP #### [facility] [address] [place] [address] [address] Heidi Zhang CO2 [Moles/Vol] 28.1 mmol/L Normal 21.0-32.0 [facility] Comment on above: Performed By: #### L IPID, CMP #### [facility] [address] [place] [address] [address] Heidi Zhang Creatinine [Mass/Vol] 1.09 mg/dL Normal 0.70-1.30 [facility] Comment on above: Performed By: #### L IPID, CMP #### [facility] [address] [place] [address] [address] Heidi Zhang EGFR-AF SOUTH AFRICAN >60 Normal >=60 [facility] Comment on above: Performed By: #### L IPID, CMP #### [facility] [address] [place] [address] [address] Heidi Zhang EGFR-NON AF SOUTH AFRICAN >60 Normal >=60 [facility] Comment on above: Performed By: #### L IPID, CMP #### [facility] [address] [place] [address] [address] Heidi Zhang Globulin (S) [Mass/Vol] 2.9 g/dL Normal [facility] Comment on above: Performed By: #### L IPID, CMP #### [facility] [address] [place] [address] [address] Heidi Zhang Glucose [Mass/Vol] 428 mg/dL Critically high 74-106 [facility] Comment on above: Performed By: #### L IPID, CMP #### [facility] [address] [place] [address] [address] Heidi Zhang Potassium [Moles/Vol] 5.2 mmol/L Critically high 3.5-5.1 [facility] Comment on above: Performed By: #### L IPID, CMP #### [facility] [address] [place] [address] [address] Heidi Zhang Protein [Mass/Vol] 6.9 g/dL Normal 6.4-8.2 [facility] Comment on above: Performed By: #### L IPID, CMP #### [facility] [address] [place] [address] [address] Heidi Zhang Sodium [Moles/Vol] 134 mmol/L Critically low 136-145 Th e [facility] Comment on above: Performed By: #### L IPID, CMP #### [facility] [address] [place] [id number] Heidi Zhang Urea nitrogen [Mass/Vol] 11.0 mg/dL Normal 7.0-18.0 [facility] Comment on above: Performed By: #### L IPID, CMP #### [facility] [address] [place] [id number] Heidi Zhang Urea nitrogen/Creatinine [Mass ratio] 10.1 mg/mg Normal [facility] Comment on above: Performed By: #### L IPID, CMP #### [facility] [id number] Heidi Schofield 11-06-2022 CNPN Telephone (OTOLLN) JOIE LU JR ([id number]) 1955 M Date Time Provider Department 11/06/22 [...] gets them frequently. Please advise. DDM in [facility]- [phone] Gemini Snyder MA 11/07/2022 9:40 AM Signed [...] Fully Assessed Reason for Visit: Patient Question [1007] Orders [681] Prescriptions as of 11/10/2022 - [...] [J44.9] 01 (more content not included)... Normal [facility] CNOVon 10-31-2022 CNOV Office Visit (OTOLLN ) JOIE LU JR ([id number]) 1955 M Date Time Provider Department 10/31/22 10:15 AM SAIMA MACDONALD During your visit today, we recorded the following information about you: Temperature 98.2 degrees Saima Macdonald MD 10/31/2022 5:36 PM Signed SECTION OF RHINOLOGY, SINUS AND SKULL BASE SURGERY Head and Neck [place], [facility] NOTE HPI: Patient is a 67 year old male presenting for evaluation. He reports monthly sinus and ear infection. He has to put earplugs in his ear when taking a shower because when water gets in the ear, the infection starts. He c/o ear pressure He c/o congestion, Green mucous when blowing nose, pressure, and facial pressure. He has not seen an instructional leader. Sinus issues has been going on since [...] daily. Levothyro (more content not included)... Normal [facility] XR CHEST 2 Von 10-13-2022 XR [...] by: JONAH GARCIA Date: 2022-10-13 16:09 [facility] JOIE LU JR ([id number]) 1955 M Date Time Provider Department 08/19/22 [...] right e (more content not included)... Normal [facility] PROF CHEM 8 (BAS METB)on Anion gap [Moles/Vol] 12.5 mmol/L Normal [facility] Comment on above: Performed By: #### B MP #### [facility] [address] [place], [place] [address] Dr. Heidi Zhang Calcium [Mass/Vol] 9.1 mg/dL Normal 8.5-10.1 [facility] Comment on above: Performed By: #### B MP #### [facility] [address] [place], [place] [address] Dr. Heidi Zhang Chloride [Moles/Vol] 99 mmol/L Normal 98-107 [facility] Comment on above: Performed By: #### B MP #### [facility] [address] [place] [address] [address] Heidi Zhang CO2 [Moles/Vol] 26.1 mmol/L Normal 21.0-32.0 [facility] Comment on above: Performed By: #### B MP #### [facility] [address] [place] [address] Dr. Heidi Zhang Creatinine [Mass/Vol] 1.00 mg/dL Normal 0.70-1.30 [facility] Comment on above: Performed By: #### B MP #### [facility] [address] [place] [address] Dr. Heidi Zhang EGFR-AF SOUTH AFRICAN >60 Normal >=60 [facility] Comment on above: Performed By: #### B MP #### [facility] [address] [place] [address] Dr. Heidi Zhang EGFR-NON AF SOUTH AFRICAN >60 Normal >=60 [facility] Comment on above: Performed By: #### B MP #### [facility] [address] [place] [address] [address] Heidi Zhang Glucose [Mass/Vol] 285 mg/dL Critically high 74-106 T [facility] Comment on above: Performed By: #### B MP #### [facility] [address] [place] [address] Dr. Heidi Zhang Potassium [Moles/Vol] 4.6 mmol/L Normal 3.5-5.1 [facility] Comment on above: Performed By: #### B MP #### [facility] [address] [place] [address] [address] Heidi Zhang Sodium [Moles/Vol] 133 mmol/L Critically low 136-145 Th [facility] Comment on above: Performed By: #### B MP #### [facility] [address] [place] [address] Dr. Heidi Zhang Urea nitrogen [Mass/Vol] 16.0 mg/dL Normal 7.0-18.0 [facility] Comment on above: Performed By: #### B MP #### [facility] [address] [place] [address] Dr. Heidi Zhang Urea nitrogen/Creatinine [Mass ratio] 16.0 mg/mg Normal [facility] Comment on above: Performed By: #### B MP #### [facility] [address] [place] [address] [address] Heidi Zhang CBC AUTO DIFFon 08-11-2022 BASO # 0.1 103/ul Normal 0.0-0.1 [facility] Comment on above: Performed By: #### C BC ####[facility] [address] [place] [address]DrRenee Zhang Basophils/100 WBC (Bld) 0.6 % Normal 0.2-2.0 [facility] Comment on above: Performed By: #### C BC ####[facility] [address] [place], [place] [address]Dr. Heidi Zhang EO # 0.4 103/ul Normal 0.0-0.7 [facility] Comment on above: Performed By: #### C BC ####[facility] [address] [place], [place] [address]Dr. Heidi Zhang Eosinophils/100 WBC (Bld) 4.4 % Normal 0.9-7.0 [facility] Comment on above: Performed By: #### C BC ####[facility] [address] [place], [place] [address]Dr. Heidi Zhang Erythrocyte distribution width (RBC) [Ratio] 11.9 % Normal 11.0-15.0 [facility] Comment on above: Performed By: #### C BC ####[facility] [address] [place], [place] [address]DrRenee Zhang Hematocrit (Bld) [Volume fraction] 44.8 % Normal 42.0-54.0 [facility] Comment on above: Performed By: #### C BC ####[facility] [address] [place], [place] [address]DrRenee Zhang Hemoglobin (Bld) [Mass/Vol] 15.2 g/dL Normal 14.0-18.0 [facility] Comment on above: Performed By: #### C BC ####[facility] [address] [place], [place] [id number]. Heidi Zhang IG # 0.04 10e3/ul Critically high 0.00-0.03 [facility] Comment on above: Performed By: #### C BC ####[facility] [address] [place] [address]Dr. Heidi Zhang IG % 0.4 % Normal 0.0-0.5 [facility] Comment on above: Performed By: #### C BC ####[facility] [address] [place], [place] [address]DrRenee Zhang LYMPH # 1.7 103/ul Normal 1.2-3.8 [facility] Comment on above: Performed By: #### C BC ####[facility] [address]wo[address] [place], [place] [address]DrRenee Zhang Lymphocytes/100 WBC (Bld) 16.6 % Critically low 20.5-60.0 [facility] Comment on above: Performed By: #### C BC ####[facility] [address] [place], [place] [address]DrRenee Zhang MANUAL DIFF REQ NO Normal [facility] Comment on above: Performed By: #### C BC ####[facility] [address]upx[address] [place], [place] [address]Dr. Heidi Vicente MCH (RBC) [Entitic mass] 31.1 pg Normal 25.9-34.0 [facility] Comment on above: Performed By: #### C BC ####[facility] [address]wokeiqn[address] [place], [place] [address]DrRenee Heidi Vicente MCHC (RBC) [Mass/Vol] 33.9 g/dL Normal 29.9-35.2 [facility] Comment on above: Performed By: #### C BC ####[facility] [address] [place], [place] [address]DrRenee Zhang MCV (RBC) [Entitic vol] 91.8 fL Normal 80.0-94.0 [facility] Comment on above: Performed By: #### C BC ####[facility] [address] [place], [place] [address]DrRenee Zhang MONO # 0.9 103/ul Critically high 0.3-0.8 [facility] Comment on above: Performed By: #### C BC ####[facility] [address] [place] [id number]. Heidi Zhang Monocytes/100 WBC (Bld) 8.7 % Normal 1.7-12.0 [facility] Comment on above: Performed By: #### C BC ####[facility] [address] [place] [address]Dr. Heidi Zhang NEUT # 6.9 103/ul Critically high 1.4-6.5 [facility] Comment on above: Performed By: #### C BC ####[facility] [address] [place] [address]Dr. Heidi Zhang Neutrophils/100 WBC (Bld) 69.3 % Normal 43.0-75.0 [facility] Comment on above: Performed By: #### C BC ####[facility] [address] [place] [address]Dr. Heidi Zhang Platelet mean volume (Bld) [Entitic vol] 9.9 fL Normal 9.5-13.5 [facility] Comment on above: Performed By: #### C BC ####[facility] [address] [place] [address]Dr. Heidi Zhang PLT 153 103/ul Normal 150-450 [facility] Comment on above: Performed By: #### C BC ####[facility] [address] [place] [address]Dr. Heidi Zhang RBC 4.88 106/ul Normal 4.70-6.10 [facility] Comment on above: Performed By: #### C BC ####[facility] [id number] [address]Dr. Heidi Zhang WBC 10.0 103/ul Normal 4.0-11.0 [facility] Comment on above: Performed By: #### C BC ####[facility] [address] [place], [place] [address]Dr. Heidi Zhang GLYCOHEMOGLOBIN A1Con 10-24- 2022 ADA RECOMMENDATION SEE BELOW Normal [facility] Comment on above: Result Comment: ADA RECOMMENDED LIMIT 4.0 - 6.0 ADA THERAPEUTIC TARGET < 7.0 ACTION SUGGESTED > 7.0 Performed By: #### A 1C #### [facility] [address] [address] [address] Heidi Zhang Glucose [Mass/Vol] 166 mg/dL Normal [facility] Comment on above: Performed By: #### A 1C #### [facility] [address] [address] [address] Heidi Zhang HbA1c (Bld) [Mass fraction] 7.4 % Critically high 4.5-6.2 [facility] Comment on above: Performed By: #### A 1C #### [facility] [address] [address] [address] Heidi Zhang LIPID PROFILEon 08-11-2022 CHOL-HDL RATIO NORM SEE BELOW Normal [facility] Comment on above: Result Comment: 3.3 - 4.4 LOW RISK 4.4 - 7.1 AVERAGE RISK 7.1 - 11.0 MODERATE RISK >11.0 HIGH RISK Performed By: #### B MP, LIPID ####[facility] [address] [id number] Zhang Cholesterol [Mass/Vol] 127 mg/dL Normal <=200 [facility] Comment on above: Performed By: #### B MP, LIPID ####[facility] [address] [id number] Zhang Cholesterol in HDL [Mass/Vol] 41 mg/dL Normal 40-60 [facility] Comment on above: Performed By: #### B MP, LIPID ####[facility] [address] [place], [place] [address]CrRenee Zhang Cholesterol in LDL [Mass/Vol] 55.2 mg/dL Normal [facility] Comment on above: Performed By: #### B MP, LIPID ####[facility] [address] [place], [place] [address]BxRenee Zhang Cholesterol.total/C holesterol in HDL [Mass ratio] 3.1 {ratio} Normal [facility] Comment on above: Performed By: #### B MP, LIPID ####[facility] [address] [address]Dr. Heidi Zhang HDL NORMAL > or = 60 mg/dl - LO W CARDIOVASCULAR RISK <40 mg/dl - HIGH CARDIOVASCULAR RISK Normal [facility] Comment on above: Performed By: #### B MP, LIPID ####[facility] [address] [address]Dr. Heidi Zhang LDL CALC NORMAL SEE BELOW Normal [facility] Comment on above: Result Comment: <100 mg/dl OPTIMAL 100 - 129 mg/dl NEAR OR ABOVE OPTIMAL 130 - 159 mg/dl BORDERLINE HIGH 160 - 189 mg/dl HIGH >190 mg/dl VERY HIGH Performed By: #### B MP, LIPID ####[facility] [address] [address]Dr. Heidi Zhang Triglyceride [Mass/Vol] 154 mg/dL Critically high <=150 [facility] Comment on above: Performed By: #### B MP, LIPID ####[facility] [address] [address]Dr. Heidi Zhang VLDL CALC 30.8 mg/dL Normal [facility] Comment on above: Performed By: #### B MP, LIPID ####[facility] [address] [address]Dr. Heidi Zhang PROF CHEM 8 (BAS METB)on Anion gap [Moles/Vol] 10.1 mmol/L Normal [facility] Comment on above: Performed By: #### B MP, LIPID ####[facility] [address] [address]Dr. Heidi Zhang Calcium [Mass/Vol] 9.2 mg/dL Normal 8.5-10.1 [facility] Comment on above: Performed By: #### B MP, LIPID ####[facility] [address] [address]Dr. Heidi Zhang Chloride [Moles/Vol] 95 mmol/L Critically low 98-107 [facility] Comment on above: Performed By: #### B MP, LIPID ####[facility] [address] [id number]. Heidi Zhang CO2 [Moles/Vol] 28.9 mmol/L Normal 21.0-32.0 [facility] Comment on above: Performed By: #### B MP, LIPID ####[facility] [address] [id number]. Nevaehrachel Zhang Creatinine [Mass/Vol] 0.92 mg/dL Normal 0.70-1.30 [facility] Comment on above: Performed By: #### B MP, LIPID ####[facility] [address] [id number]. Nevaehrachel Vicente EGFR-AF SOUTH AFRICAN >60 Normal >=60 [facility] Comment on above: Performed By: #### B MP, LIPID ####[facility] [address] [id number]. Heidi Zhang EGFR-NON AF SOUTH AFRICAN >60 Normal >=60 [facility] Comment on above: Performed By: #### B MP, LIPID ####[facility] [address] [place] [id number]. Nevaehrachel Vicente Glucose [Mass/Vol] 172 mg/dL Critically high 74-106 T [facility] Comment on above: Performed By: #### B MP, LIPID ####[facility] [address] [place] [id number]. Heidi Zhang Potassium [Moles/Vol] 5.0 mmol/L Normal 3.5-5.1 [facility] Comment on above: Performed By: #### B MP, LIPID ####[facility] [address] [place] [id number]. Heidi Zhang Sodium [Moles/Vol] 129 mmol/L Critically low 136-145 Th [facility] Comment on above: Performed By: #### B MP, LIPID ####[facility] [address] [place] [id number]. Heidi Zhang Urea nitrogen [Mass/Vol] 14.0 mg/dL Normal 7.0-18.0 [facility] Comment on above: Performed By: #### B MP, LIPID ####[facility] [address] [place], [place] [address]RjDr. Heidi Zhang Urea nitrogen/Creatinine [Mass ratio] 15.2 mg/mg Normal [facility] Comment on above: Performed By: #### B MP, LIPID ####[facility] [address] [place], [place] [address]KqDr. Heidi Zhang US LADI DOP LEG RTon [...] KAY SOMMER Date: 2022-04-28 21:51 Normal [facility] GLYCOHEMOGLOBIN A1Con 2021 ADA RECOMMENDATION SEE BELOW Normal [facility] Comment on above: Result Comment: ADA RECOMMENDED LIMIT 4.0 - 6.0 ADA THERAPEUTIC TARGET < 7.0 ACTION SUGGESTED > 7.0 Performed By: #### A 1C #### [facility] [address] [address] [address] Heidi Zhang Glucose [Mass/Vol] 154 mg/dL Normal [facility] Comment on above: Performed By: #### A 1C #### [facility] [address] [address] [address] Heidi Zhang HbA1c (Bld) [Mass fraction] 7.0 % Critically high 4.5-6.2 [facility] Comment on above: Performed By: #### A 1C #### [facility] [address] [address] [address] eHidi Zhang LIPID PROFILEon 03-31-2022 CHOL-HDL RATIO NORM SEE BELOW Normal [facility] Comment on above: Result Comment: 3.3 - 4.4 LOW RISK 4.4 - 7.1 AVERAGE RISK 7.1 - 11.0 MODERATE RISK >11.0 HIGH RISK Performed By: #### L IPID #### [facility] [address] [address] [address] Heidi Zhang Cholesterol [Mass/Vol] 126 mg/dL Normal <=200 [facility] Comment on above: Performed By: #### L IPID #### [facility] [address] [address] [address] Heidi Zhang Cholesterol in HDL [Mass/Vol] 37 mg/dL Critically low 40-60 [facility] Comment on above: Performed By: #### L IPID #### [facility] [address] [address] [address] Heidi Zhang Cholesterol in LDL [Mass/Vol] 37.4 mg/dL Normal [facility] Comment on above: Performed By: #### L IPID #### [facility] [address] [address] [address] Heidi Zhang Cholesterol.total/C holesterol in HDL [Mass ratio] 3.4 {ratio} Normal [facility] Comment on above: Performed By: #### L IPID #### [facility] [address] [address] [address] Heidi Zhang HDL NORMAL > or = 60 mg/dl - LO W CARDIOVASCULAR RISK <40 mg/dl - HIGH CARDIOVASCULAR RISK Normal [facility] Comment on above: Performed By: #### L IPID #### [facility] [address] [address] [address] Heidi Zhang LDL CALC NORMAL SEE BELOW Normal [facility] Comment on above: Result Comment: <100 mg/dl OPTIMAL 100 - 129 mg/dl NEAR OR ABOVE OPTIMAL 130 - 159 mg/dl BORDERLINE HIGH 160 - 189 mg/dl HIGH >190 mg/dl VERY HIGH Performed By: #### L IPID #### [facility] [address] [address] [address] Heidi Zhang Triglyceride [Mass/Vol] 258 mg/dL Critically high <=150 [facility] Comment on above: Performed By: #### L IPID #### [facility] [address] [address] [address] Heidi Zhang VLDL CALC 51.6 mg/dL Normal [facility] Comment on above: Performed By: #### L IPID #### [facility] [address] [address] [address] Heidi Zhang CNOVon 02-27-2022 CNOV Office Visit (OTOLMN ) JOIE LU JR ([id number]) 1955 M Date Time Provider Department 02/27/22 [...] assessment and plan were my own and resident/CAREER DEVELOPMENT ENGINEER/scribe was acting as SCRIBE. Hearing unchanged, unimproved It's unclear where his severe ear pain is coming from as it's not happening today and the ear looks very healthy. Recommend pt come back to [facility] for assessment next time this flares so we can see if its otologic or not. Gifty Couch MD, FACS Section Head, Otology/Neurotology/[facility] Base Surgery Commercial Drone Pilot, Cochlear Implant Program [facility] [place] [facility] History of Present Illness Mr. JOIE [...] Skin: Sarahi (more content not included)... Normal [facility] Office Visit (CDISMN ) JOIE LU JR ([id number]) 1955 M Date Time Provider Department 02/27/22 2:00 PM SHIKHA MUNOZ During your visit today, we recorded the following information about you: ANIVAL Glover 02/27/2022 3:36 PM Signed [facility] [place] AUDIOLOGIC EVALUATION REPORT Name: Joie Lu JR [facility]#: [id number] Date of Service: 02/27/2022 Date of : 1955 Age: [age] year old Referred by: Regan Ortega MD ([facility]) [address] [facility] [address] Referred for: Evaluation of suspected change in hearing, tinnitus, or balance. Referral documented: In an order in [facility] Joie Lu JR was seen for a [...] right greater than left hearing loss. See [facility] Audiogram for additional reported history and [...] Should patient wish to pursue amplification at [facility], call [phone] to schedule a hearing aid evaluation appointment. * Re-evaluation as medically indicated, or sooner, if a change in hearing is noted. I verify that I have reviewed the history, test results, and interpretation for this patient. Neri Glover, MEL/A Clinical Plate Grainer Apprentice ALVINO cohn Definition Degree of hearing sensitivity dB range WNL within normal limits WNL 0 - 20 SNHL sensorineural hearing loss Mild 20-40 CHL conductive hearing loss Moderate 40-55 MHL mixed hearing loss Moderately-Severe 55-70 WRS word recognition score Severe 70-90 ME middle ear Profound 90 + TM tympanic membrane Referring Provider: REGAN ORTEGA [[id number]] Allergies As of Date: 02/27/2022 Noted Allergy Reaction MORPHINE 05/25/2014 2 - Rash 9 - Itching BEE STING 08/18/2018 7 - Swelling 10 - Anaphylaxis PENICILLINS 01/17/20 (more content not included)... Normal [facility] CNPNon 02-11-2022 CNPN Telephone (OTOLMN) JOIE LU JR ([id number]) 1955 M Date Time Provider Department 02/11/22 [...] take the sharp aches away. [facility] is perferred pharmacy Thanks Carin Freeman Adm [...] ankle, unspe (more content not included)... Normal [facility] Kanwal 02-06-2022 CNPN Telephone (OTOLMN) JOIE LU ([id number]) 1955 M Date Time Provider Department 02/06/22 GIFTY COUCH During your visit today, we recorded the following information about you: Carin Freeman Adm Asst 02/06/2022 11:57 AM Signed Patient is calling for a refill on the clonazePAM (KLONOPIN) 1 mg tablet. [facility] on file has been updated Thanks [...] 1 02/06/2022 (more content not included)... Normal [facility] CT TEMP BONES WO IVCONon [facility] Vital Signs Date Time Vital Sign Value Performing Clinician Facility 03-25-2023 14:00-0400 Body height 193.04 cm Agustin Nj Other [facility] Other 03-25-2023 14:00-0400 Body mass index (BMI) [Ratio] 38.95 kg/m2 Agustin Nj Other [facility] Other 03-25-2023 14:00-0400 Body temperature 97.6 [degF] Agustin Nj Other [facility] Other 03-25-2023 14:00-0400 Body weight 145.15 kg Agustin Nj Other [facility] Other 03-25-2023 14:00-0400 Diastolic blood pressure 84 mm[Hg] Agustin Nj Other [facility] Other 03-25-2023 14:00-0400 Respiratory rate 20 /min Agustin Nj Other [facility] Other 03-25-2023 14:00-0400 SaO2% (BldA) [Mass fraction] 96 % Agustin Nj Other [facility] Other 03-25-2023 14:00-0400 Systolic blood pressure 132 mm[Hg] Agustin Nj Other [facility] Other 10-31-2022 09:13-0500 Body temperature 98.2 [degF] Saima Macdonald MD Work Phone: [facility] 08-28-2021 10:30-0500 Body height 193.04 cm Agustin Nj Other [facility] Other 08-28-2021 10:30-0500 Body mass index (BMI) [Ratio] 39.68 kg/m2 Agustin Nj Other [facility] Other 08-28-2021 10:30-0500 Body temperature 98.4 [degF] Agustin Nj Other [facility] Other 08-28-2021 10:30-0500 Body weight 147.87 kg Agustin Nj Other [facility] Other 08-28-2021 10:30-0500 Diastolic blood pressure 92 mm[Hg] Agustin Nj Other [facility] Other 08-28-2021 10:30-0500 Respiratory rate 20 /min Agustin Nj Other [facility] Other 08-28-2021 10:30-0500 SaO2% (BldA) [Mass fraction] 97 % Agustin Nj Other [facility] Other 08-28-2021 10:30-0500 Systolic blood pressure 160 mm[Hg] Agustin Nj Other [facility] Other Encounters Encounter Date Encounter Type Care Provider Facility Start: 10-26-2023 End: 10-26-2023 ambulatory SHAIKH MAINE Not Available Start: 09-24-2023 End: 09-24-2023 ambulatory LAUREN SHETH Not Available Start: 09-01-2023 End: 09-02-2023 ambulatory Lucía Montero [facility] Start: 08-31-2023 End: 09-01-2023 ambulatory Johnny Cespedes MD Facility:[facility] Start: 08-27-2023 End: 08-28-2023 ambulatory Linh Simnoe Donaldsonzman [facility] Facility:[facility] Start: 08-24-2023 End: 08-25-2023 ambulatory Linh Simone Cheatham [employer] [employer] [employer] Facility:[facility] Start: 08-20-2023 End: 08-21-2023 ambulatory Linh Simone Linden [employer] [employer] Facility:[facility] Start: 08-17-2023 End: 08-18-2023 ambulatory Jose Francisco Beaulieu MD [facility] Start: 08-17-2023 End: 08-18-2023 ambulatory Linh Simone [place] [facility] [employer] Facility:[facility] Start: 08-13-2023 End: 08-14-2023 ambulatory Linh Simone Lind[place] [employer] [employer] Facility:[facility] Start: 08-11-2023 ambulatory Johnny Cespedes MD Facility:[facility] Start: 08-10-2023 End: 08-11-2023 ambulatory Jose Francisco Beaulieu MD Facility:[facility] Start: 08-06-2023 End: 08-07-2023 ambulatory Linh Simone Cheatham [employer] [employer] Facility:[facility] Start: 08-03-2023 End: 08-04-2023 [facility] Facility:[facility] Start: 07-31-2023 End: 08-01-2023 ambulatory Lucía L Montero [facility] [employer] [employer] Start: 07-21-2023 End: 07-30-2023 Evaluation and management of inpatient Claudia Simpson MD Facility:[facility] Start: 06-25-2023 End: 06-26-2023 ambulatory JUSTIN Jacklyn [facility] Start: 06-10-2023 End: 06-10-2023 Encounter for preprocedural laboratory examination [facility] Start: 06-10-2023 End: 06-13-2023 ambulatory JUSTIN Jacklyn [facility] Start: 06-10-2023 End: 06-12-2023 Patient encounter status [facility] 4 [facility] Ti ffin Radiology Start: 06-10-2023 End: 06-12-2023 Subsequent hospital visit by physician [facility] Xr Dr Room 4 [facility] Comment on above: 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; Encounter for preprocedural laboratory examination Start: 06-08-2023 End: 06-08-2023 Subsequent hospital visit by physician [facility] Pre Admit Test Rm [facility] PRE ADMIT Comment on above: No Show Start: 06-01-2023 Refill Partha Sudaniellela c PA-C Work Phone: [facility] [place] Comment on above: Refill Request Start: 05-27-2023 Chart Update Shaikh Maine Work Phone: [facility] 250 DO Work Phone: Start: 05-26-2023 ambulatory PCP UNKNOWN Facility:[id number] Start: 05-25-2023 Encounter for preprocedural cardiovascular examination Shawn Marlow [facility] Start: 05-25-2023 ambulatory PCP UNKNOWN Facility:[id number] Start: 04-14-2023 End: 04-14-2023 ambulatory Kamal Chaban Facility:[facility] Start: 04-14-2023 End: 04-14-2023 ambulatory MD Shaikh Grove Work Phone: [facility] Work Phone: Start: 04-14-2023 End: 04-14-2023 Patient encounter procedure MD Shaikh Grove Work Phone: [facility] [place] Work Phone: Start: 04-09-2023 NPVRFRL, Provider: Mily Marlow, Status: Pen, Time: 10:00 AM [facility] Work Phone: Start: 04-09-[address] Mily Marlow Facility: Start: 04-08-2023 AUDIT Mily bales MD Work Phone: [facility] 600 DO Work Phone: Start: 04-03-2023 End: 04-03-2023 ambulatory Agustin Nj Other [facility] Other Start: 04-03-2023 Telephone encounter gAustin Adancassidy [facility] Start: 03-27-2023 End: 03-28-2023 ambulatory SHAIKH MAINE Facility:[facility] Start: 03-25-2023 End: 03-25-2023 ambulatory Agustin Nj Other [facility] Other Start: 03-25-2023 Office outpatient vi sit 15 minutes Kamjamel Nj [facility] Start: 03-25-2023 End: 04-14-2023 Pre-admission assessment Jose Francisco Buck [facility] Start: 02-24-2023 End: 02-24-[address] BRENDA SUÁREZ . Facility: Start: 02-15-2023 End: 02-15-2023 ambulatory KIM Duran Facility: Start: 01-28-2023 End: 01-29-2023 ambulatory SHAIKH Jonathan GROVE Facility: Start: 01-27-2023 End: 01-27-2023 ambulatory PARTHA JACKSON Facility:[facility] Start: 01-27-2023 End: 01-27-2023 Patient encounter [...] 12-02-2022 End: 12-02-2022 ambulatory Agustin Antionettecassidy Other [facility] Other Start: 12-02-2022 Telephone encounter Perfectojamel Adancassidy [facility] Start: 11-06-2022 End: 11-06-2022 ambulatory Perfectojamel Adancassidy Other [facility] Other Start: 11-06-2022 Telephone encounter Saima raya MD Work Phone: Otolaryngology Comment on above: Patient Question; Or ders Start: 10-31-2022 End: 10-31-2022 ambulatory SAIMA MACDONALD Facility:[facility] Start: 10-31-2022 End: 10-31-2022 Patient encounter procedure Siama Macdonald MD Work Phone: Otolaryngology Comment on above: Acute recurrent fron monica sinusitis; Other chronic sinusitis Start: 10-13-2022 End: 10-14-2022 ambulatory SHAIKH Jonathan GROVE Facility:[facility] Start: 10-03-2022 End: 10-03-2022 ambulatory Marlin Vasquez Other [facility] Other Start: 10-03-2022 Telephone encounter Marlin Vasquez [facility] Start: 08-19-2022 End: 08-20-2022 ambulatory PARTHA JACKSON Facility:[facility] Start: 08-19-2022 End: 08-19-2022 Patient encounter [...] 07-17-2022 End: 07-17-2022 ambulatory Marlin Christina Other [facility] Other Start: 07-17-2022 Telephone encounter Marlin Vasquez [facility] Start: 06-19-2022 End: 06-20-2022 ambulatory CALVO H FAWWAD Facility:[facility] Start: 04-28-2022 End: 04-29-2022 ambulatory CALVO H FAWWAD Facility:[facility] Start: 04-09-2022 End: 04-09-2022 ambulatory Kamal Chaban Other [facility] Other Start: 04-09-2022 Telephone encounter Kamjamel Nj [facility] Start: 03-31-2022 End: 04-01-2022 ambulatory CALVO H FAWWAD Facility:[facility] Start: 02-27-2022 End: 02-28-2022 ambulatory GIFTY COUCH Facility:[facility] Start: 02-27-2022 End: 02-27-2022 Patient encounter [...] 08-28-2021 End: 08-28-2021 ambulatory Kamjamel Nj Other [facility] Other Start: 08-28-2021 Office outpatient vi sit 15 minutes Perfectojamel Clem [facility] Start: 03-06-2021 End: 03-06-2021 Subsequent hospital visit by physician [facility] Work Phone: Radiology Comment on above: 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.A31] Start: 11-16-2017 End: 11-17-2017 Ambulatory DEFAULT PHYSICIAN Facility:[facility] Patient encounter status Mily Marlow MD Work Phone: -[facility] 600 DO Work Phone: Procedures Date Procedure [...] catheterization Rodrigo Buck Cholecystectomy Jose Francisco Hood loenard Cholecystectomy Calvo Kala spain Work Phone: H/O: [...] (Diabetes, CKD 3-4, OR last GFR 15-59) [facility] Start: 11-03-2023 [facility] Start: 09-29-2023 FUV, Provider: Mily Marlow, Status: Pen, Time: 10:50 AM FUV, Provider: Mily Marlow, Status: Pen, Time: 10:50 AM [facility] 250 DO Work Phone: Start: 06-25-2023 End: 06-25-2023 Admission to same day surgery center 06/25/2023 Surgery IP Unit Justin Mcgowan MD [address] [place] [address] [place] [address] KNEE TOTAL ARTHROPLASTY [facility] Comment on above: KNEE TOTAL ARTHROPLA STY Start: 06-25-2023 End: 06-25-2023 Anesthesia consultation 06/25/2023 Anesthesia Event IP Unit Kristal Nolasco APRN - CRNA [facility] Start: 06-25-2023 End: 06-25-2023 Arthrp kne condyle&platu medial&lat compartments KNEE TOTAL ARTHROPLASTY Right knee pain, unspecified chronicity 06/25/2023 8:[address] [facility] Start: 06-25-2023 Subsequent hospital visit by physician 06/25/2023 Hospital Encounter IP Unit Justin Mcgowan MD [address] Hardy [place] Start: 06-19-2023 Influenza vaccination INFLUENZA (#1) [facility] Start: 06-02-2023 Annual Wellness Visi t (AWV) Annual Wellness Visit (AWV) [facility] Start: 05-19-2023 Influenza vaccination Flu vaccine (# 1) [facility] Start: 12-03-2022 COVID-19 VACCINE (5 - Moderna series) COVID-19 VACCINE (5 - Moderna series) [facility] Start: 10-19-2022 ADVANCE DIRECTIVE DISCUSSION ADVANCE DIRECTIVE DISCUSSION [facility] Start: 07-04-2022 BP CONTROLLED (<130/80) BP CONTROLLE D (<130/80) [facility] Start: 06-19-2022 Influenza vaccination INFLUENZ A (Season Ended) [facility] Start: 10-19-2021 ADVANCE DIRECTIVE DISCUSSION ADVANCE DIRECTIVE DISCUSSION [facility] Start: 07-04-2021 COVID-19 VACCINE (3 - Booster for Moderna series) COVID-19 VACCINE (3 - Booster for Moderna series) [facility] Start: 2021 PNEUMOVAX AGE 65 AND OVER WITH 5YR LOOKBACK (#1) PNEUMOVAX AGE 65 AND OVER WITH 5YR LOOKBACK (#1) [facility] Start: 03-29-2021 COVID-19 Vaccine (3 - Booster for Moderna series) COVID-19 Vaccine (3 - Booster for Moderna series) [facility] Start: 12-20-2014 Hemoglobin A1c/Hemoglobin.total in Blood HBA1C [facility] Start: 11-16-2013 Pneumococcal 65+ yea rs Vaccine (2 - PCV) Pneumococcal 65+ years Vaccine (2 - PCV) [facility] Start: 11-16-2013 PNEUMOCOCCAL: 65+ (2 - PCV) PNEUMOCOCCAL: 65+ (2 - PCV) [facility] Start: 08-09-2013 Hepatitis B surface antibody level LDL CHOLESTEROL [facility] Start: 2011 PROSTATE CANCER SCREENING DISCUSSION PROSTATE CANCER SCREENING DISCUSSION [facility] Start: 2006 Shingles vaccine (1 of 2) Shingles vaccine (1 of 2) [facility] Start: 2006 SHINGRIX VACCINE (1 of 2) SHINGRIX VACCINE (1 of 2) [facility] Start: 05-20-2005 DTaP/Tdap/Td vaccine (1 - Tdap) DTaP/Tdap/Td vaccine (1 - Tdap) [facility] [employer] Start: 2001 COLOGUARD (FIT-DNA) COLOGUARD (FIT-D NA) [facility] Start: 2001 Colonoscopy COLONOSCOPY [facility] Start: 2001 COLORECTAL CANCER SCREENING COLORECTAL CANCER SCREENING [facility] Start: [address] COLONOGRAPHY [facility] Start: 2001 FECAL OCCULT BLOOD FECAL OCCULT BLOO D [facility] Start: 2001 Screening for malign ant neoplasm of colon [facility] [employer] Start: 2001 SIGMOIDOSCOPY SIGMOIDOSCOPY [facility] Start: 1986 Zoledronic acid therapy ALPHA- 1 ANTITRYPSIN DEFICIENCY SCREENING [facility] Start: 1975 Urine microalbumin profile DTAP,TDAP,TD (1 - Tdap) [facility] Start: 1974 ANNUAL PCP TEAM EQUIPMENT HIRE MANAGER HELDER DISEASE VISIT ANNUAL PCP TEAM CHRONIC DISEASE VISIT [facility] Start: 1974 BP CONTROLLED (<130/80) BP CONTROLLE D (<130/80) [facility] Start: 1974 GFR test (Diabetes, CKD 3-4, OR last GFR 15-59) GFR test (Diabetes, CKD 3-4, OR last GFR 15-59) [facility] Start: 1974 Glaucoma screening Diabetic retinal exam [facility] Start: 1974 Hepatitis C screening Hepatitis C sc reen [facility] Start: 1974 HIV SCREENING HIV SCREENING [facility] Start: 1974 SPIROMETRY SPIROMETRY [facility] Start: 1974 Urine screening for protein Diabetic Alb to Cr ratio (uACR) test [facility] Start: 1968 Depression Screen Depression Screen [facility] Start: 1966 3 comp foot exam completed DIABETIC FOOT EXAM [facility] Start: 1966 Diabetic foot examination Diabetic foot exam [facility] Start: 1966 Hemoglobin A1c measurement A1C test (Diabetic or Prediabetic) [facility] Start: 1966 Hepatitis B screening URINE ALBUMIN:CREATININE RATIO [facility] Start: 1966 Hepatitis C antibody , confirmatory test DILATED RETINAL EXAM [facility] Start: 1966 Lipid panel Lipids [facility] Start: 1956 ABDOMINAL AORTIC ANEURYSM SCREENING ABDOMINAL AORTIC ANEURYSM SCREENING [facility] End: 11-30-2023 CT SINUS STEREO WO IVCON CT SINUS STEREO WO IVCON Radiology Routine Other chronic sinusitis 1 Occurrences starting 10/31/2022 until 11/30/2023 [facility] Work Phone: Comment on above: 1 Occurrences starti ng 10/31/2022 until 11/30/2023 End: 06-10-2023 MRSA DNA Probe, Nasal [facility] Work Phone: Comment on above: Once for 1 Occurrenc es starting 06/10/2023 until 06/10/2023 [facility] Immunizations Immunization Date Immunization Notes Care Provider Gabino jordan 08-12-2021 COVID-19 Vaccine Moderna - Documentation Purposes Only Agustin Nj Other [employer] Other 02-01-2021 COVID-19 Vaccine Moderna - Documentation Purposes Only Agustin Nj Other [employer] Other 01-04-2021 COVID-19 Vaccine Moderna - Documentation Purposes Only Agustin Nj Other [employer] Other 11-16-2012 pneumococcal polysaccharide vaccine, 23 valent Gifty Couch MD Work Phone: [facility] 07-12-2012 influenza virus vaccine, unspecified formulation Gifty Couch MD Work Phone: [facility] 07-28-2011 influenza virus vaccine, unspecified formulation Gifty Couch MD Work Phone: [facility] 08-06-2005 tetanus toxoid, adsorbed Gifty Couch MD Work Phone: [facility] 05-19-2005 Td, unspecified formulation Jairo Tapia DO Work Phone: [facility] 07-28-2001 pneumococcal polysaccharide vaccine, 23 valent Gifty Couch MD Work Phone: [facility] Payers Date Payer Category Payer Self-pay [id number] 2021 Medicare DEVOTED MEDICARE [facility] [id number] 2021-Present [phone] [address] [place] [address] [facility] [id number] 2021 Medicare [id number]. [id number] 2021 Unknown [id number] 2.16.840 .1.119603.19 2018 Unknown 1955 Unknown [id number] 2.16.840.1.513647.3.579.2.593 1956 Unknown [id number] 2.16.840.1.920060.3.579.2.593 1956 Unknown [id number] 2.16.840.1.533194.3.579.2.593 1956 Unknown [id number] 2.16.840.1.332064.3.579.2.593 1956 Unknown [id number] 2.16.840.1.687900.3.579.2.593 1956 Unknown [id number] 2.16.840.1.968298.3.579.2.593 1956 Unknown [id number] 2.16.840.1.028461.3.579.2.593 1956 Unknown [id number] 2.16.840.1.211199.3.579.2.593 1956 Unknown [id number] 2.16.840.1.793723.3.579.2.593 1956 Unknown [id number] 2.16.840.1.958446.3.579.2.593 1956 Unknown [id number] 2.16.840.1.623934.3.579.2.727 1956 Unknown [id number] 2.16.840.1.171841.3.579.2.356 1956 Unknown [id number] 2.16.840.1.659318.3.579.2.173 1956 Unknown [id number] 2.16.840.1.393656.3.579.2.173 1956 Unknown [id number] 2.16.840.1.532195.3.579.2.173 1956 Unknown [id number] 2.16.840.1.883402.3.579.2.173 1956 Unknown [id number] 2.16.840.1.859520.3.579.2.173 1956 Unknown [id number] 2.16.840.1.687224.3.579.2.1068 1956 Unknown [id number] 2.16.840.1.863943.3.579.2.1068 1956 Unknown [id number] 2.16.840.1.345520.3.579.2.1259 1956 Unknown [id number] 2.16.840.1.938537.3.579.2.1259 1956 Unknown [id number] 2.16.840.1.696449.3.579.2.196 1956 Unknown [id number] 2.16.840.1.941692.3.579.2.196 1956 Unknown [id number] 2.16.840.1.202699.3.579.2.196 1956 Unknown [id number] 2.16.840.1.709074.3.579.2.196 1956 Unknown [id number] 2.16.840.1.342064.3.579.2.196 1956 Unknown [id number] 2.16840.1.008478.3.579.2.196 1956 Unknown [id number] 2.16840.1.345647.3.579.2.196 1956 Unknown [id number] 2.16.840.1.205620.3.579.2.196 1956 Unknown [id number] 2.16.840.1.392289.3.579.2.196 1955 Unknown [id number] 2.16840.1.750057.3.579.2.196 Medicare [id number] 2.16840.1.778063.19 Medicare Medicare [id number] Unknown [id number] 2.16840.1.959770.3.579.2.531 Social History Date Type Detail Facility Start: 05-12-2012 End: 08-19-2022 Tobacco smoking status NHIS Ex-smoker [facility] End: 02-15-1982 History of tobacco use Current smoker [facility] End: 02-15-1982 History of tobacco use Cigarette Smoker [facility] Start: 08-16-2021 End: 01-27-2023 Alcohol intake Ex-drinker (finding) [facility] Start: 1955 Sex Assigned At Not on file [facility] Start: 01-21-2021 End: 08-19-2022 Exposure to SARS-CoV-2 (event) Not sure [facility] Start: 02-20-2021 End: 10-31-2022 Sex Assigned At [facility] Start: 08-19-2022 End: 10-31-2022 Cigarettes smoked current (pack per day) - Reported 0.5 [facility] Comment on above: quit 40 years ago; Start: 05-12-2012 End: 08-19-2022 Tobacco use and exposure Smokeless tobacco non-user [facility] Start: 1955 Sex Assigned At Male F [facility] Tobacco smoking status No Smokin g Status Entered [facility] National Score (1-10 0), lower number is lower risk Not on file [facility] Start: 05-19-2011 Tobacco smoking stat us NHIS Never smoked tobacco [facility] Start: 04-30-2016 Alcohol intake 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 (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) [facility] Medical Equipment Procedure Code Equipment Code Equipment Origin al Text Equipment Identifier Dates Graft Bn Canc 15 ml Allgrft - [id number] Start: 06-05-2014 Simplex P Bone Cement Radiopaque Full Dose Individual Pack - [id number] Start: 06-04-2012 Sys Bncmnt Gun Brkwy Noz Crtdg - [id number] Start: 06-04-2012 Cement Bone Simplex P W/ Tobramycin 1gm - [id number] Start: 09-06-2012 Graft Bn Dbm 5ml Ptty Strl - [id number] Start: 09-29-2014 Idd-Wg-H-Kind Implant - [id number] Start: 09-06-2012 Comment on above: Description: 17mm x 100mm stem ext (david [id number]) Jrr-Kh-B-Kind Implant - [id number] Start: 09-06-2012 Comment on above: Description: 6 Tibia comp plate (david [id number]) Veq-Yb-S-Kind Implant - [id number] Start: 09-06-2012 Comment on above: Description: left F Femur comp. (david [id number]) Eor-Qp-Y-Kind Implant - [id number] Start: 09-06-2012 Comment on above: Description: 12mm ti bial insert (david [id number]) articulate srfc 3.5 Mm 20mm Eugenio ex Screw [id number] Start: 09-29-2014 3.5mm 22mm Augusto x Screw [id number] Start: 09-29-2014 2.7mm 24mm Locki ng Screw [id number] Start: 09-29-2014 Prosthesis Columbia 3mm Titanium 3-7mm [place] Total Center Shoe Ear - [id number] Start: 11-03-2019 Spcr Fem 75mm Kn Mold - [id number] Start: 06-04-2012 Spcr Demarcus Stg1 Si l 75mm Tib Kn - [id number] Start: 06-04-2012 Ext Stem 30mm 75 mm 15mm Str - [id number] Start: 09-06-2012 Comment on above: Description: extensi on stem 30mm-78-15 (david [id number]) Shld Hinge Sgmnt l Svc Kit Sz F - [id number] Start: 06-05-2014 Srfc Artc 17mm F Tib Kn Seg - [id number] Start: 06-05-2014 Restric Demarcus Unv Rev Insrt - [id number] Start: 09-06-2012 Plate 112mm Ss S tr Fus Lcp Bn - [id number] Start: 09-29-2014 Screw Bn 2.7mm 16mm Lcp Ss - [id number] Start: 09-29-2014 Screw Bn 2.7mm 16mm Lcp Ss Sm - [id number] Start: 09-29-2014 Screw Bn 3.5mm 20mm Lcp Ss - [id number] Start: 09-29-2014 Screw Bn 3.5mm 24mm Lcp Ss - [id number] Start: 09-29-2014 Clinical Notes 07-12-2012 to [...] on the . These fax orders to half-way: 1. Recheck with me in 1 month [...] 01/04/2021 Recorded Comments (more content not included)... [facility] 08-13-2023 Note This is a Telehealth Appointment *This visit was conducted via Telehealth with real time interactive synchronized audio and video communication. The patient provided written consent for treatment. The patient understands their rights, the HIPAA risks and that they will be charged accordingly for the services rendered. The patient was seen via telemedicine while they were at: [facility] This telemedicine visit was conducted due to: And half-way transportation_ Chief Complaint telehealth: hosp f/u R [...] Cultures all remain negative. Patient discharged to [facility] on on IV Rocephin and vancomycin [...] mg, Oral, q6hr, (more content not included)... [facility] 07-30-2023 Note Admission Informatio n Patient: Joie Lu : 1955 Date of Admission: 07/21/2023 19:33:54 Date of Discharge: 07/30/2023 14:30:00 Code Status: Full Resuscitation PCP: Consult: Cynthia WALLIS, Starla Delcid; Rubina WATERMAN, Johnny Mcgowan MD, Justin Villasenor Follow Up with Provider: With: Address: When: Justin Mcgowan [address] [place] [address] [phone] Business (1) In 2 weeks Brief Hospital Course Summary: This is a 68 Years old Male who originally underwent a right knee replacement with Dr. Paniagua proximately 3 weeks ago. He initially reported to [facility] ER after increasing the pain became unbearable accompanied by significant swelling/edema. Dr. Mcgowan recommended transfer to [facility] ER, therefore patient arrived via EMS. Medical [...] insulin outpatient. #Hypertension #Hyperlipidemia #Hypothyroidism Disposition--discharge to [facility]. Medications New Medications Printed Prescriptions enoxaparin (enoxaparin [...] summary Patient Discharge Condition Stable Discharge Disposition [facility] Objective Vitals & Measurements T: 36.6 ?C (Oral) HR: 70 (Monitored) RR: 16 BP: 112/69 SpO2: 96% HT: 194 cm WT: 142.5 kg BMI: 36.19 Additional Vitals N (more content not included)... [facility] 07-24-2023 Note Procedure: Portable AP chest radiograph following peripherally inserted central catheter (PICC) insertion. Inserted by: Niya RN. PICC type: 4 Australian single lumen Power PICC Solo. Puncture site: [...] Signed, Electronically Signed in Other Vendor System) [facility] 07-22-2023 Note Indication for Surge ry Patient [...] x 0.5 cm Surgeon(s) Justin Mcgowan MD Jewel Bearing Turner Daniel HINSON, Mimi Bright (Bobbin Marker) Anesthesia General Sylvia WATERMAN, Luke Marx (Heavy Truck Driver) Isrrael Escobar (Provider) Zee KO, Harley Anna [...] confirming correct surgical site, patient, and procedure. Hamel exsanguination was used and tourniquet was inflated [...] range of m (more content not included)... [facility] 07-22-2023 Note Ok to work w/ pt per RN. Pt in bed sleeping upon arrival. Awakens to name. Education regarding purpose of PT services. Pt agreeable to work with PT, however request PT to come back a bit later in the morning. Pt falling asleep during conversation. Will return as able. Thank you. Electronically signed by Surekha aHley 07/22/23 09:07 EDT [facility] 07-22-2023 Note Chief Complaint Transfer from [facility] secondary to postop infection Assessment/Plan Brief Hospital Course Summary: This is a 68 Years old Malewho originally underwent a right knee replacement with Dr. Paniagua proximately 3 weeks ago. He initially reported to [facility] ER after increasing the pain became unbearable accompanied by significant swelling/edema. Dr. Mcgowan recommended transfer to [facility] ER, therefore patient arrived via EMS. Medical [...] 3 weeks ago. He initially reported to [facility] ER after increasing the pain became unbearable accompanied by significant swelling/edema. Dr. Mcgowan recommended transfer to [facility] ER, therefore patient arrived via EMS. Medical history includes diabetes, hypertension, hyperlipidemia, hypothyroidism and obesity. Patient has remote history of smoking with cessation greater than 5 years ago. He denies alcohol illicit drug use. Blood work upon arrival was significant for sodium 129, glucose 177, WBC 13.7, hemoglobin 12.8, hematocrit 38.0, magnesium 1.7 and CRP 24.09. [facility] chart reviewed. No further imaging indicated [...] qualifying data Historical (more content not included)... [facility] 06-08-2023 History of Present illness Narrative PAT left message with patient regarding not showing for 9am PAT appt. Awaiting response. Message left with Julissa at Dr Mcgowan's office regarding patient not showing up for PAT visit. documented in this encounter [facility] 03-25-2023 Evaluation note Encounter Date Diagnosis Assessment Notes Mar, Asthma with COPD (ICD-10 - J44.9) [facility] Other 04-11-2023 NoteHNO ID: [id number] Author: Partha Jackson PA-C Service: ? Author Type: Physician Jewel Bearing Turner Type: Progress Notes Filed: 01/27/2023 7:05 PM [...] REMOVAL: Cerumen was rem (more content not included)...[facility] 01-27-2023 Instructions* Patient Instructions* Partha Jackson PA-C - 01/27/2023 11:48 AM EDT PLAN: -Continue with the Flonase -Continue with the Astelin -Take Medrol Dose Pack, this is a steroid, can increase your blood sugars. Please monitor -Sent refill of the Klonopin -Take Tylenol and Ibuprofen for the pain as well -Follow up with Dr. Macdonald as scheduled documented in [facility] encounter[facility] History of Present illness Narrative* Partha [...] without magnification and multiple instrumentations requiring physician hardware sales assistant skills. Postoperative diagnosis: same Partha Jackson PA-C January 27, 2023 7:01 PM Medical Decision Making: Problems: Moderate: 2+ stable chronic illnesses Risk: Moderate: Drug management Medical Decision Making Level: 4 - Moderate documented in this encounterMem[facility]04-[facility]2023 Nurse Note* Judy Pacheco Ma - 01/27/2023 11:19 AM EDT Tobacco Use: .5 packs/day, for 1 years. Quit 02/15/1982. Types: Cigarettes Was smoking cessation packet given? N/A - Patient is a non-smoker or quit >1 year ago. Was a referral initiated?N/A Patient is a non-smoker documented in this encounterMem[facility]02-14[facility]2023 Evaluation note* Encounter Date Diagnosis Assessment Notes Treatment Notes Treatment Clinical Notes Nov, Asthma with COPD (ICD-10 - J44.9) [facility] Other 01-20-2023 Miscellaneous Notes* Telephone Encounter - [...] gets them frequently. Please advise. DDM in [facility]- [phone] documented in this encounterMemorial [facility]01-19-2023 Evaluation note* Encounter Date Diagnosis Assessment Notes Treatment Notes Treatment Clinical Notes Oct, Asthma with COPD (ICD-10 - J44.9) [facility] Other 01-13-2023 NoteHNO ID: [id number] Author: Saima Macdonald MD Service: ? Author Type: Physician Type: Progress Notes Filed: 10/31/2022 5:36 PM Note Text: SECTION OF RHINOLOGY, SINUS AND SKULL BASE SURGERY [facility] [place] [place], [facility] NOTE HPI: Patient is a 67 year old male presenting for evaluation. He reports monthly sinus and ear infection. He has to put earplugs in his ear when taking a shower because when water gets in the ear, the infection starts. He c/o ear pressure He c/o congestion, Green mucous when blowing nose, pressure, and facial pressure. He has not seen an instructional leader. Sinus issues has been going on since [...] Take 1 tablet (more content not included)... [facility]01-13-2023 History of Present illness Narrative* Saima Macdonald MD - 10/31/2022 9:19 AM EST Images from the original note were not included. SECTION OF RHINOLOGY, SINUS AND SKULL BASE SURGERY [facility] [place] [place], [facility] NOTE HPI: Patient is a 67 year old male presenting for evaluation. He reports monthly sinus and ear infection. He has to put earplugs in his ear when taking a shower because when water gets in the ear, the infection starts. He c/o ear pressure He c/o congestion, Green mucous when blowing nose, pressure, and facial pressure. He has not seen an instructional leader. Sinus issues has been going on since [...] is accurate and complete. documented in this encounterMemorial [facility]11-01-2022 NoteHNO ID: [id number] Author: Partha Sukalac, PA-C Service: ? Author Type: Physician Jewel Bearing Turner Type: Progress Notes Filed: 09/17/2022 7:50 AM [...] CONSULT TO ENT c (more content not included)...[facility]11-01-2022 Instructions* Patient Instructions* Partha Jackson PA-C - 08/19/2022 2:41 PM EDT PLAN: -Recommend appointment with Dr. Saima Macdonald MD in [place] for your sinuses [address] [address] -Continue with nasal sprays and Claritin -Sent refill of the Klonopin -Follow up in 5.5-6 months with Partha Jackson PA-C -Recommend hearing aids in both ears documented in this encounterMemorial [facility]11-01-2022 History of Present illness Narrative* Partha [...] up to date. Last seen by Dr. iGfty Couch on 02/27/2022. Since last seen, Reports [...] Level: 4 - Moderate documented in this encounterMemorial [facility]11-01-2022 Nurse Note* Caitlin Mosley MA - 08/19/2022 2:22 PM EDT Tobacco Use: .5 packs/day, for 1 years. Quit 02/15/1982. Types: Cigarettes Was smoking cessation packet given? N/A - Patient is a non-smoker or quit >1 year ago. Was a referral initiated?N/A Patient is a non-smoker documented in this encounterMemorial Health [facility]09-01-2022 NotePROCEDURE: XR KNEE LT 4V or [...] Electronically authenticated by: JONAH GARCIA Date: 2022-06-19 16:09[facility]05-12-2022 NoteHNO ID: [id number] Author: Gifty Couch MD Service: ? Author Type: Physician Type: Progress Notes Filed: 02/28/2022 1:04 AM Note Text: Staff Physician Comments: I testify that I personally interviewed and examined the patient. I confirm the below exam findings, assessment and plan were my own and resident/CAREER DEVELOPMENT ENGINEER/scribe was acting as SCRIBE. Hearing unchanged, unimproved It's unclear where his severe ear pain is coming from as it's not happening today and the ear looks very healthy. Recommend pt come back to [facility] for assessment next time this flares so we can see if its otologic or not. Gifty Couch MD, FACS Section Head, Otology/Neurotology/Skull Base Surgery Commercial Drone Pilot, Cochlear Implant Program [place] [facility] [place] [facility] History of Present Illness Mr. JOIE [...] is pink and moist (more content not included)...[facility]05-12-2022 NoteHNO ID: [id number] Author: ANIVAL Glover Service: ? Author Type: Plate Grainer Apprentice Type: Progress Notes Filed: 02/27/2022 3:36 PM Note Text: [facility] [place] AUDIOLOGIC EVALUATION REPORT Name: oJie Lu JR [facility]#: [id number] Date of Service: 02/27/2022 Date of : 1955 Age: [age] year old Referred by: Regan Ortega MD ([facility]) [address] [facility] [address] Referred for: Evaluation of suspected change in hearing, tinnitus, or balance. Referral documented: In an order in [facility] Joie Lu JR was seen for a [...] right greater than left hearing loss. See [facility] Audiogram for additional reported history and [...] Should patient wish to pursue amplification at [facility], call [phone] to schedule a hearing aid evaluation appointment. * Re-evaluation as medically indicated, or sooner, if a change in hearing is noted. I verify that I have reviewed the history, test results, and interpretation for this patient. Neri Glover, MEL/A Clinical Plate Grainer Apprentice HINOJOSA Abbrev- iation Definition Degree of hearing sensitivity dB range WNL within normal limits WNL 0 - 20 SNHL sensorineural hearing loss Mild 20-40 CHL conductive hearing loss Moderate 40-55 MHL mixed hearing loss Moderately-Severe 55-70 WRS word recognition score Severe 70-90 ME middle ear Profound 90 + TM tympanic membraneCincinnati [facility]05-12-2022 Instructions* Patient Instructions* Partha Jackson PA-C [...] good for 6 months. documented in this encounterMemorial [facility]05-12-2022 History of Present illness Narrative* Gifty Couch MD - 02/27/2022 3:02 PM EDT Images from the original note were not included. Staff Physician Comments: I testify that I personally interviewed and examined the patient. I confirm the below exam findings, assessment and plan were my own and resident/CAREER DEVELOPMENT ENGINEER/scribe was acting as SCRIBE. Hearing unchanged, unimproved It's unclear where his severe ear pain is coming from as it's not happening today and the ear looksvery healthy. Recommend pt come back to [facility] for assessment next time this flares so we can see if its otologic or not. Gifty Couch MD, FACS Section Head, Otology/Neurotology/Skull Base Surgery Commercial Drone Pilot, Cochlear Implant Program [facility] [place] [facility] History of Present Illness Mr. JOIE [...] Level: 4 - Moderate documented in [facility] Nurse Note* Judy Pacheco Ma - 02/27/2022 2:58 PM EDT Tobacco Use: .5 packs/day, for 1 years. Quit 02/15/1982. Types: Cigarettes Was smoking cessation packet given? N/A - Patient is a non-smoker or quit >1 year ago. Was a referral initiated?N/A Patient is a non-smoker documented in [facility] encounter[facility] History of Present illness Narrative* ANIVAL Glover - 02/27/2022 2:00 PM EDT [facility] [place] AUDIOLOGIC EVALUATION REPORT Name: Joie F Aly SILVA CCF#: [id number] Date of Service: 02/27/2022 Date of : 1955 Age: [age] year old Referred by: Regan Ortega MD ([facility]) [address] [facility] [address] Referred for: Evaluation of suspected change in hearing, tinnitus, or balance. Referral documented: In an order in [facility] Joie Lu JR was seen for a [...] Should patient wish to pursue amplification at [facility], call [phone] to schedule a hearing aid evaluation appointment. * Re-evaluation as medically indicated, or sooner, if a change in hearing is noted. I verify that I have reviewed the history, test results, and interpretation for this patient. Neri Glover, MEL/A Clinical Plate Grainer Apprentice HINOJOSA Abbrev- iation Definition Degree of hearing sensitivity dB range WNL within normal limits WNL 0 - 20 SNHL sensorineural hearing loss Mild 20-40 CHL conductive hearing loss Moderate 40-55 MHL mixed hearing loss Moderately-Severe 55-70 WRS word recognition score Severe 70-90 ME middle ear Profound 90 + TM tympanic membrane documented in this encounter[facility] Miscellaneous Notes* Telephone Encounter - Partha [...] take the sharp aches away. [facility] is perferred pharmacy Thanks Carin Ashley documented in this encounterMem[facility] Miscellaneous Notes* Telephone Encounter - Carin Coley Asst - 02/06/2022 11:52 AM EDT Patient is calling for a refill on the clonazePAM (KLONOPIN) 1 mg tablet. 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) [facility] Other 09-24-2012 History of Past illness Narrative* [...] of this encounter (statuses as of 02/06/2022) [facility] History of Past illness Narrative* Problem [...] of this encounter (statuses as of 02/12/2022) [facility] History of Past illness Narrative* Problem [...] of this encounter (statuses as of 02/27/2022) [facility] History of Past illness Narrative* Problem [...] of this encounter (statuses as of 02/28/2022) [facility] History of Past illness Narrative* Problem [...] of this encounter (statuses as of 09/17/2022) [facility] History of Past illness Narrative* Problem [...] of this encounter (statuses as of 10/31/2022) [facility] History of Past illness Narrative* Problem [...] of this encounter (statuses as of 11/10/2022) [facility] History of Past illness Narrative* Problem [...] of this encounter (statuses as of 01/28/2023) [facility] History of Past illness Narrative* Problem [...] of this encounter (statuses as of 05/29/2023) [facility] History of Past illness Narrative* Problem [...] of this encounter (statuses as of 06/02/2023) [facility] note No data available for this section [facility] Diagnosis 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 Other specified hearing loss, unspecified ear documented in this encounter [facility] note* Diagnosis Otalgia, right- Primary Other specified hearing loss, unspecified ear documented in this encounter [facility] note* Diagnosis Mixed conductive and sensorineural hearing loss of right ear with restricted hearing of left ear- Primary Sensorineural hearing loss (SNHL) of left ear with restricted hearing of right ear documented in this encounter [facility] note* Diagnosis Mixed conductive and sensorineural hearing loss of right ear with restricted hearing of left ear- Primary 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 Status post tympanoplasty Other postprocedural status Impacted cerumen of left ear Impacted cerumen documented in this encounter [facility] noteNo [email or web address] Other Evaluation note* Diagnosis 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- Primary Mixed conductive and sensorineural hearing loss of right ear with restricted hearing of left ear Status post tympanoplasty Other postprocedural status Acute recurrent frontal sinusitis Acute frontal sinusitis documented in this encounter [facility] note* Diagnosis Acute recurrent frontal sinusitis Acute frontal sinusitis Other chronic sinusitis documented in this encounter [facility] note* Diagnosis 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- Primary Fluid level behind tympanic membrane of right ear Mixed conductive and sensorineural hearing loss of right ear with restricted hearing of left ear Status post tympanoplasty Other postprocedural status Impacted cerumen of left ear Impacted cerumen documented in this encounter [facility] noteNo assessment information availableMarion Hospital Work Phone: Evaluation note* Diagnosis Mixed conductive and sensorineural hearing loss of right ear with restricted hearing of left ear documented in this encounter [facility] note* Diagnosis 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 documented in this encounter [facility] note* Diagnosis 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 resistant Staphylococcus aureus Encounter for preprocedural laboratory examination Pre-procedural laboratory examination Right knee pain, unspecified chronicity documented in this encounter VERA GILLESPIE [facility] Narrative - Reported* Type Description Date Medical History Hypertension Medical History Arthritis Medical History COPD Medical History Hypothyroid Surgical History knee replacement Surgical History cholecystectomy Surgical History back surgery Surgical History Foot Surgery Surgical History shoulder surgery Surgical History hand surgery Surgical History revision left total knee Surgical History right ear implant 10/2019 Hospitalization History See Above [facility] Other Hospital Discharge instructions No data available for this section [facility] No data available for this section [facility] Summary Purpose Family History No Family History Records FoundUnknown Family Member Name Dates Details Family history of malignant neoplasm: Mother(V16.9, Z80.9) Status:Active No pertinent family history: Father(V49.89, Z78.9) Status:Active Family history of myocardial infarction: Brother(V17.3, Z82.49) Status:Active Family history of CABG: Brot her(V17.49, Z82.49) Status:Active Advance Directives No Advanced Directives Records FoundDocuments on File Type Date Recorded 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 Advance Directive(s) 07/12/2021 10:29 AM Advance Directive(s) 06/21/2021 12:46 PM Advance Directive(s) 11/03/2019 6:20 AM Advance Directive(s) 10/11/2019 2:38 PM Advance Directive Response Recorded Date/ Time Advance Directives No May 24 019 11:50am Reason for Referral Specialty Diagnoses / Procedures Referred By Contac t Referred To Contact Allergy Diagnoses Acute recurrent frontal sinusitis Procedures CONSULT TO ALLERGY/IMMUNOLOGY OFFICE/OUTPATIENT [facility] 60-74 MINUTES Saima Macdonald MD [address] [place] [address] Referral ID Status Reason Start Date Expiration Date Visits Requested Visits Authorized [id number] Pending Review PCP Requested Referral 10/31/2022 10/31/2023 1 1 Specialty Diagnoses / Procedures Referred By Contac t Referred To Contact Ent - Otolaryngology Diagnoses Acute recurrent frontal sinusitis Procedures CONSULT TO ENT OFFICE/OUTPATIENT [facility] 60-74 MINUTES Partha Jackson PA-C [address] [place] [id number] Referral ID Status Reason Start Date Expiration Date Visits Requested Visits Authorized [id number] Pending Review PCP Requested Referral 08/19/2022 08/19/2023 [...] section and content) DATE CREATED AUTHOR 04/12/2018 [facility] DATE CREATED AUTHOR AUTHOR'S ORGANIZ ATION 01/31/2023 [facility] DATE CREATED AUTHOR AUTHOR'S ORGANIZ ATION 02/25/2023 [facility] DATE CREATED AUTHOR AUTHOR'S ORGANIZ ATION [facility]/30/2023 [facility] DATE CREATED AUTHOR AUTHOR'S ORGANIZ ATION 04/10/2023 [facility] DATE CREATED AUTHOR AUTHOR'S ORGANIZ ATION 04/10/2023 [employer] DATE CREATED AUTHOR AUTHOR'S ORGANIZ ATION 04/28/2023 [facility] DATE CREATED AUTHOR AUTHOR'S ORGANIZ ATION 06/30/2023 [facility] DATE CREATED AUTHOR AUTHOR'S ORGANIZ ATION 07/22/2023 [facility] DATE CREATED AUTHOR AUTHOR'S ORGANIZ ATION 10/27/2023 [facility] DATE CREATED AUTHOR AUTHOR'S ORGANIZ ATION 10/29/2023 [facility] Comments (unrecognize d section and content) In the event this informatio n is protected by the Federal Confidentiality of Alcohol and Drug Abuse Patient Records regulations: The Federal rules restrict any use of the information to criminally investigate or prosecute any alcohol or drug abuse patient.[facility] HospitalIn the event this information is protected by the Federal Confidentiality of Alcohol and Drug Abuse Patient Records regulations: The Federal rules restrict any use of the information to criminally investigate or prosecute any alcohol or drug abuse patient.[facility] HospitalIn the event this information is protected by the Federal Confidentiality of Alcohol and Drug Abuse Patient Records regulations: The Federal rules restrict any use of the information to criminally investigate or prosecute any alcohol or drug abuse patient.[facility] HospitalIn the event this information is protected by the Federal Confidentiality of Alcohol and Drug Abuse Patient Records regulations: The Federal rules restrict any use of the information to criminally investigate or prosecute any alcohol or drug abuse patient.[facility] HospitalIn the event this information is protected by the Federal Confidentiality of Alcohol and Drug Abuse Patient Records regulations: The Federal rules restrict any use of the information to criminally investigate or prosecute any alcohol or drug abuse patient.[facility] HospitalIn the event this information is protected by the Federal Confidentiality of Alcohol and Drug Abuse Patient Records regulations: The Federal rules restrict any use of the information to criminally investigate or prosecute any alcohol or drug abuse patient.[facility] HospitalIn the event this information is protected by the Federal Confidentiality of Alcohol and Drug Abuse Patient Records regulations: The Federal rules restrict any use of the information to criminally investigate or prosecute any alcohol or drug abuse patient.[facility] HospitalIn the event this information is protected by the Federal Confidentiality of Alcohol and Drug Abuse Patient Records regulations: The Federal rules restrict any use of the information to criminally investigate or prosecute any alcohol or drug abuse patient.[facility] HospitalIn the event this information is protected by the Federal Confidentiality of Alcohol and Drug Abuse Patient Records regulations: The Federal rules restrict any use of the information to criminally investigate or prosecute any alcohol or drug abuse patient.[facility] HospitalIn the event this information is protected by the Federal Confidentiality of Alcohol and Drug Abuse Patient Records regulations: The Federal rules restrict any use of the information to criminally investigate or prosecute any alcohol or drug abuse patient.[facility] Reason for Visit (unrecogniz ed section and content) Reason Onset Date Comments Refill Request 02/06/2022 Reason Comments Returning Patient's Call Reason Comments Follow Up Specialty Diagnoses / Procedures Referred By Contac t Referred To Contact Diagnoses Other specified hearing loss, unspecified ear Procedures ADULT HEARING TEST/AUDIOGRAM COMPRE AUDIOMETRY THRESHOLD HOAL Gifty Hartmann MD [address] [address] [facility] [address] [place] [address] Referral ID Status Reason Start Date Expiration Date V isits Requested Visits Authorized [id number] Closed Auto-Generate d Referral 12/17/2021 03/17/2022 1 1 Reason Comments Follow Up Established Patient 5 month follow-up.pt states he get ear infection every month. Reason Comments Sinus Problem Recurrent since infe ctions. Ear Pain Right ear Specialty Diagnoses / Procedures Referred By Jonathan t Referred To Contact Ent - Otolaryngology Diagnoses Acute recurrent frontal sinusitis Procedures CONSULT TO ENT OFFICE/OUTPATIENT [facility] 60-74 MINUTES Partha Jackson PA-C [address] [place] [address] Referral ID Status Reason Start Date Expiration Date Visits Requested Visits Authorized [id number] Pending Review PCP Requested Referral 08/19/2022 08/19/2023 1 1 Reason Comments Patient Question Orders Specialty Diagnoses / Procedures Referred By Jonathan t Referred To Contact Radiology / RADIO CT SCAN [facility] Diagnoses 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 Comments CT TEMP BONES WO IVCON Procedures CT WO [address] Gifty Couch MD [address] [place] [address] Scan [facility] [address] [place] [address] Referral ID Status Reason Start Date Expiration Date Visits Re quested Visits Authorized [id number] Closed 03/06/2021 10/18/2021 1 1 Reason Onset Date Comments Refill Request 06/01/2023 Specialty Diagnoses / Procedures Referred By Jonathan t Referred To Contact [facility] [address] [place] [address] Referral ID Status Reason Start Date Expiration Date Visits Re quested Visits Authorized [id number] 1 1 Care Teams (unrecognized sec tion and content) Project Management Instructor Relationship Specialty Start Date End Date Regan Ortega PCP - General Family Practice 10/11/19 Project Management Instructor Relationship Specialty Start Date End Date Regan Ortega PCP - General Family Practice 10/11/19 Project Management Instructor Relationship Specialty Start Date End Date Joshua Regan Vilchis PCP - General Family Practice 10/11/19 Project Management Instructor Relationship Specialty Start Date End Date JoshuaRegan PCP - General Family Practice 10/11/19 Project Management Instructor Relationship Specialty Start Date End Date Joshua Regan Vilchis PCP - General Family Medicine 10/11/19 Project Management Instructor Relationship Specialty Start Date End Date JoshuaRegan PCP - General Family Medicine 10/11/19 Project Management Instructor Relationship Specialty Start Date End Date JoshuaRegan PCP - General Family Medicine 10/11/19 Project Management Instructor Relationship Specialty Start Date End Date JoshuaRegan PCP - General Family Medicine 10/11/19 Team Status: Active Member Role Status Dates Shaikh Maine MD Primary Care Provider Active Team Status: Inactive Member Role Status Dates Shaikh Maine MD Primary Care Provider Active Agustin Nj MD Attending Provider Active Project Management Instructor Relationship Specialty Start Date End Date JoshuaRegan PCP - General Family Medicine 10/11/19 Project Management Instructor Relationship Specialty Start Date End Date Regan Ortega PCP - General Family Medicine 10/11/19 Project Management Instructor Relationship Specialty Start Date End Date Jairo Tapia DO [address] [place] [id number] PCP - General 09/28/15 Project Management Instructor Relationship Specialty Start Date End Date Jairo Tapia DO [address], [place] [id number] PCP - General 09/28/15 Project Management Instructor Relationship Specialty Start Date End Date Jairo Tapia DO [address] [place] [address] PCP - General 09/28/15 Project Management Instructor Relationship Specialty Start Date End Date Jairo Tapia, [address] [place] [address] [facility] 09/28/15 Goals (unrecognized section and content) Goals [...] BE BASED ON THE PRIMARY CLINICAL RECORDS. [facility] [email or web address] [facility]. provides no warranty or guarantee of the accuracy or completeness of information in this document.
== END 2023-11-02 09:41 | disposition home or self-care (01) ==
LOC: RAD 09:40
PROVIDERS: PCP Internal Medicine; Visit Provider Orthopaedic Surgery
DX: M79.601 Pain in right arm (principal)
CPT/HCPCS: 73030

== ENCOUNTER 2024-04-29 12:54 | Outpatient (OUT) | payer OTHER, SELFPAY ==
[2024-04-29 13:42] LABS: Basophils Absolute Auto 0.1 10^3/uL (0.0-0.1); Basophils Percent Auto 0.4 % (0.2-2.0); Eosinophils Absolute Auto 0.1 10^3/uL (0.0-0.7); Eosinophils Percent Auto 0.4 % (0.9-7.0); Hematocrit 40.6 % (42.0-54.0); Hemoglobin 13.9 g/dL (14.0-18.0); Immature Granulocytes Pct Auto 0.7 % (0.0-0.5); Lymphocytes Absolute Auto 0.9 10^3/uL (1.2-3.8); Lymphocytes Percent Auto 6.8 % (20.5-60.0); Mean Corpuscular HGB Conc 34.2 g/dL (29.9-35.2); Mean Corpuscular Volume 87.5 fL (80.0-94.0); Mean Platelet Volume 9.4 fL (9.5-13.5); Monocytes Absolute Auto 1.1 10^3/uL (0.3-0.8); Monocytes Percent Auto 8.1 % (1.7-12.0); Neutrophils Absolute Auto 11.6 10^3/uL (1.4-6.5); Neutrophils Percent Auto 83.6 % (43.0-75.0); Platelet Count 180 10^3/uL (150-450); Red Blood Count 4.64 10^6/uL (4.70-6.10); Red Cell Distribution Width 11.7 % (11.0-15.0); White Blood Count 13.8 10^3/uL (4.0-11.0)
[2024-04-29 14:10] LABS: Erythrocyte Sedimentation Rate 46 mm/hr (<=20)
[2024-04-29 14:22] LABS: Alanine Aminotransferase 94 U/L (16-63); Albumin Globulin Ratio 1.1; Albumin Level 3.8 g/dL (3.4-5.0); Alkaline Phosphatase 166 U/L (46-116); Anion Gap 18.3; Aspartate Amino Transferase 34 U/L (15-37); Bilirubin Total 0.4 mg/dL (0.2-1.0); C Reactive Protein 1.85 mg/dL (<=0.50); Calcium 9.1 mg/dL (8.5-10.1); Carbon Dioxide 21.2 mmol/L (21.0-32.0); Chloride 96 mmol/L (98-107); Estimated GFR (African America 58 (>=60); Estimated GFR (Non-African Ame 48 (>=60); Globulin 3.5 g/dL; Glucose 301 mg/dL (74-106); Potassium 4.5 mmol/L (3.5-5.1); Sodium 131 mmol/L (136-145); Total Protein 7.3 g/dL (6.4-8.2)
== END 2024-04-29 12:55 | disposition home or self-care (01) ==
LOC: LAB 12:55
PROVIDERS: PCP Internal Medicine
DX: T84.50XA Infection and inflammatory reaction due to unspecified internal joint prosthesis, initial encounter (principal)
CPT/HCPCS: 36415; 80053; 85025; 85652; 86140

== ENCOUNTER 2024-07-06 11:16 | Outpatient (OUT) | payer OTHER, SELFPAY ==
[2024-07-06 11:43] LABS: Basophils Absolute Auto 0.1 10^3/uL (0.0-0.1); Eosinophils Absolute Auto 0.4 10^3/uL (0.0-0.7); Eosinophils Percent Auto 5.5 % (0.9-7.0); Hematocrit 38.6 % (42.0-54.0); Hemoglobin 13.3 g/dL (14.0-18.0); Immature Granulocytes Abs Auto 0.02 10^3/uL (0.00-0.03); Immature Granulocytes Pct Auto 0.3 % (0.0-0.5); Lymphocytes Absolute Auto 1.7 10^3/uL (1.2-3.8); Lymphocytes Percent Auto 23.8 % (20.5-60.0); Mean Corpuscular HGB Conc 34.5 g/dL (29.9-35.2); Mean Corpuscular Hemoglobin 29.6 pg (25.9-34.0); Mean Platelet Volume 9.2 fL (9.5-13.5); Monocytes Absolute Auto 0.5 10^3/uL (0.3-0.8); Monocytes Percent Auto 7.5 % (1.7-12.0); Neutrophils Absolute Auto 4.4 10^3/uL (1.4-6.5); Neutrophils Percent Auto 61.9 % (43.0-75.0); Platelet Count 197 10^3/uL (150-450); Red Blood Count 4.49 10^6/uL (4.70-6.10); Red Cell Distribution Width 12.4 % (11.0-15.0); White Blood Count 7.1 10^3/uL (4.0-11.0)
[2024-07-06 11:43] LABS: Creatinine Urine Random 28.89 mg/dL (20.00-300.00); Protein Creatinine Ratio Urine 0.28
[2024-07-06 11:48] LABS: Estimated Average Glucose 183 mg/dL
[2024-07-06 12:12] LABS: Alanine Aminotransferase 67 U/L (16-63); Albumin Globulin Ratio 1.2; Albumin Level 4.1 g/dL (3.4-5.0); Alkaline Phosphatase 145 U/L (46-116); Anion Gap 11.2; Aspartate Amino Transferase 27 U/L (15-37); BUN Creatinine Ratio 16.5; Bilirubin Total 0.5 mg/dL (0.2-1.0); Calcium 9.6 mg/dL (8.5-10.1); Carbon Dioxide 29.2 mmol/L (21.0-32.0); Chloride 94 mmol/L (98-107); Chol HDL Ratio 1.9; Cholesterol 103 mg/dL (<=200); Estimated GFR (African America >60 (>=60); Estimated GFR (Non-African Ame >60 (>=60); Globulin 3.5 g/dL; Glucose 150 mg/dL (74-106); HDL Cholesterol 55 mg/dL (40-60); LDL Cholesterol Calculated 36.6 mg/dL; Potassium 5.4 mmol/L (3.5-5.1); Sodium 129 mmol/L (136-145); TSH W/ REFLEX FT4 5.181 uIU/mL (0.358-3.740); Total Protein 7.6 g/dL (6.4-8.2); Triglycerides 57 mg/dL (<=150); VLDL CHOLESTEROL 11.4 mg/dL
[2024-07-06 12:50] LABS: Free T4 0.84 ng/dL (0.76-1.46)
== END 2024-07-06 11:17 | disposition home or self-care (01) ==
LOC: LAB 11:16
PROVIDERS: Visit Provider Internal Medicine
DX: E11.40 Type 2 diabetes mellitus with diabetic neuropathy, unspecified (principal); E78.5 Hyperlipidemia, unspecified; E03.9 Hypothyroidism, unspecified
CPT/HCPCS: 36415; 80053; 80061; 82570; 83036; 84156; 84439; 84443; 85025

== ENCOUNTER 2024-08-04 16:22 | Outpatient (OUT) | payer OTHER, SELFPAY ==
[2024-08-04 16:54] LABS: Basophils Absolute Auto 0.1 10^3/uL (0.0-0.1); Eosinophils Absolute Auto 0.3 10^3/uL (0.0-0.7); Eosinophils Percent Auto 3.3 % (0.9-7.0); Hematocrit 39.7 % (42.0-54.0); Hemoglobin 13.4 g/dL (14.0-18.0); Immature Granulocytes Abs Auto 0.06 10^3/uL (0.00-0.03); Immature Granulocytes Pct Auto 0.6 % (0.0-0.5); Lymphocytes Absolute Auto 1.9 10^3/uL (1.2-3.8); Lymphocytes Percent Auto 18.7 % (20.5-60.0); Mean Corpuscular HGB Conc 33.8 g/dL (29.9-35.2); Mean Corpuscular Volume 88.8 fL (80.0-94.0); Mean Platelet Volume 8.5 fL (9.5-13.5); Monocytes Absolute Auto 0.7 10^3/uL (0.3-0.8); Monocytes Percent Auto 7.1 % (1.7-12.0); Neutrophils Absolute Auto 7.1 10^3/uL (1.4-6.5); Neutrophils Percent Auto 69.3 % (43.0-75.0); Platelet Count 237 10^3/uL (150-450); Red Blood Count 4.47 10^6/uL (4.70-6.10); Red Cell Distribution Width 13.5 % (11.0-15.0); White Blood Count 10.2 10^3/uL (4.0-11.0)
[2024-08-04 17:26] LABS: Percent Iron Saturation 22.5 %
[2024-08-06 04:07] LABS: Vitamin B12 941 pg/mL (232-1245)
[2024-08-06 05:08] LABS: Transferrin 263 mg/dL (177-329)
== END 2024-08-04 16:23 | disposition home or self-care (01) ==
LOC: LAB 16:22
DX: D64.9 Anemia, unspecified (principal); I10 Essential (primary) hypertension; E11.40 Type 2 diabetes mellitus with diabetic neuropathy, unspecified
CPT/HCPCS: 36415; 82607; 82728; 83540; 83550; 84466; 85025

== ENCOUNTER 2024-08-19 09:24 | Outpatient (REF) | payer OTHER, SELFPAY ==
[2024-08-20 11:31] LABS: Occult Blood Negative
[2024-08-20 11:32] LABS: Internal Control Within Normal Limits
== END 2024-08-19 09:25 | disposition home or self-care (01) ==
LOC: LAB 09:24
DX: D64.9 Anemia, unspecified (principal)
CPT/HCPCS: G0328

== ENCOUNTER 2024-09-13 12:24 | Outpatient (OUT) | payer OTHER, SELFPAY ==
--- NOTE | 2024-09-13 12:27 | MR_ITS ---
[place] [id number] Patient Name: JOIE LANGSTON MRN: [id number] date: 1955 Sex: M Assigned Patient Location: MRI Current Patient Location: MRI Accession/Order Number: [id number] Exam Date: 09/13/2024 12:55 Report Date: 09/15/2024 08:05 At the request of: ABBEY DOMINGO Procedure: MR shoulder RT wo con EXAMINATION: MR shoulder RT wo con HISTORY: Primary Osteoarthritis Right Shoulder COMPARISON: XR shoulder right 11/02/2023 TECHNIQUE: A variety of imaging planes and parameters were utilized for visualization of suspected pathology. Imaging was performed without or with contrast as indicated by examination type. FINDINGS: ROTATOR CUFF REGION CUFF TENDONS: Complete tear of the supraspinatus tendon and retraction approximately 4.5 cm. Suspect high-grade strain of infraspinatus tendon, but intact and attached. CUFF MUSCLES: Atrophic supraspinatus muscle. DELTOID: No significant atrophy or tear. LONG BICEPS TENDON: No grossly abnormal signal, attrition, or tear. LABRUM/BICEPS ANCHOR SUPERIOR: Suspect small tear of the superior labrum. ANTERIOR/INFERIOR: No visible tear or attrition. POSTERIOR: No posterior labrum abnormality. CAPSULE No visible capsular laxity or thickening. AC JOINT REGION AC JOINT: Moderate-marked degenerative changes. AC LIGAMENTS: Not well seen. CC LIGAMENTS: Not well seen. ACROMION: Suspect atrophy or marked erosion of the undersurface. SUBACROMIAL BURSA: Large amount of fluid within the subacromial-subdeltoid bursa. Fluid extends posterior to the acromial process-deltoid muscle attachments and extends cephalad to the acromion process. Large joint effusion. HYALINE CARTILAGE: Marked thinning. OTHER BONES: Irregularity of the articular surface of the humeral head. Innumerable small subchondral cysts within the humeral head and glenoid. Large degenerative osteophytes along the articular margins of the humeral head. MR/MR shoulder RT wo con IMPRESSION: 1. Marked chronic degenerative changes of the right shoulder as detailed above. 2. Disruption and retraction of the supraspinatus tendon and marked strain of the subscapularis tendon. 3. Suspect small tear of the superior labrum. Electronically authenticated by: JONAH GARCIA Date: 09/15/2024 08:05
== END 2024-09-13 12:25 | disposition home or self-care (01) ==
LOC: MRI 12:25
PROVIDERS: Visit Provider Physician Assistant
DX: M19.011 Primary osteoarthritis, right shoulder (principal)
CPT/HCPCS: 73221

== ENCOUNTER 2024-12-07 11:28 | Outpatient (OUT) | payer OTHER, SELFPAY ==
[2024-12-07 12:56] LABS: Estimated Average Glucose 131 mg/dL; Glycohemoglobin A1C 6.2 % (4.5-6.2)
== END 2024-12-07 11:29 | disposition home or self-care (01) ==
LOC: LAB 11:30
DX: E11.40 Type 2 diabetes mellitus with diabetic neuropathy, unspecified (principal)
CPT/HCPCS: 36415; 83036

== ENCOUNTER 2024-12-19 17:42 | Emergency (ER) | payer OTHER, SELFPAY ==
[2024-12-19 17:43] VITALS: BP 105/68; PULSE 98; TEMP 36.4; O2SAT 95; BMI 35.8
--- NOTE | 2024-12-19 18:25 | ECG_ITS ---
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
--- NOTE | 2024-12-19 18:25 | ED.GENADUL1 ---
HPI HPI - General Adult General Chief complaint: Extremity Problem, Nontraumatic Stated complaint: WEAKNESS Time Seen by Provider: 12/19/24 18:16 Source: patient Mode of arrival: ambulance History of Present Illness HPI narrative: Patient is a 69-year-old male who is presenting to the ER today with chief complaint of a fall. Patient has ongoing weakness to bilateral lower extremities has been going on for months. Patient has a mass to the medial posterior aspect of his left knee has been going on for years and slowly getting bigger. Patient states that intermittently his legs will give out, and has been ongoing since this masses been going to his left knee. Patient has been in [place], he has an appointment this in [place] to meet the orthopedic surgeon about his left knee. Patient was at a gas station today, patient stated his lower extremities gave out which is common for him. Patient has abrasion to left knee. Patient did not hit his head. No blood thinners. Patient says that his PCP is no longer seeing him, patient has chronic pain to left knee with the large mass. Patient uses a cane and walker to help with ambulation. Patient was at a gas station today, he had lost his balance which is very normal for him. Patient had fallen down. Patient cannot get up on his own. Somebody saw this, called 911, and EMS Patient to the ER for evaluation. Patient lives at home by himself, he has neighbors that help him. Patient did not hit his head. No blood thinners. Patient has no other acute complaints. Patient does not know when his last tetanus shot was. All systems are negative except as noted/marked. All systems reviewed and otherwise negative. Nurses note and vital signs reviewed and patient is not hypoxic. General: The patient appears well and in no apparent distress. Patient is resting comfortably on cart. Patient is not toxic, lethargic, or listless Skin: Warm, dry, no pallor noted. There is no rash noted. No petechiae, purpura. Patient does have an abrasion over the left patella. No laceration. Patient does have a large mass left medial posterior knee, chronic. Head: Normocephalic, atraumatic Eye: Normal conjunctiva, no drainage, EOMI. PERRL Ears, Nose, Mouth, and Throat: oral mucosa is moist. Nares patent. Mouth without vesicles. Cardiovascular: Regular Rate and Rhythm, no murmur, gallop, rub Respiratory: Patient is in no distress, no accessory muscle use, lungs are clear to auscultation, no wheezing, rales or rhonchi Back: non-tender, no CVA tenderness bilaterally to percussion. No CT LS midline pain. Patient has no new midline or paralumbar tenderness to palpation. No midline or paracervical tenderness to palpation, full range of motion of cervical spine no difficulty. GI: no tenderness to palpation, soft, obese, no masses appreciated. No rebound, guarding, or rigidity noted. No distention Musculoskeletal: Patient has full range of motion of all of the extremities. Patient does have his normal full flexion extension of his left knee despite left knee abrasion and the chronic mass to the left medial posterior knee. 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 Full range of motion of left ankle and foot with no difficulty. 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 No obvious deformity or limitation to his range of motion from his right or left knee compared to normal baseline. Neurological: A&O x4, normal speech Psychiatric: Cooperative Related Data Home Medications ?Medication ?Instructions ?Recorded ?Confirmed amlodipine 5 mg tablet 5 mg PO DAILY 07/20/23 07/20/23 aspirin 325 mg tablet 325 mg PO DAILY 07/20/23 07/20/23 atorvastatin 10 mg tablet 10 mg PO DAILY 07/20/23 07/20/23 azelastine 137 mcg (0.1 %) nasal 1 spray intranasal Q12H 07/20/23 07/20/23 spray buspirone 30 mg tablet 30 mg PO BID 07/20/23 07/20/23 clonazepam 1 mg tablet 1 mg PO Q8H 07/20/23 07/20/23 cyclobenzaprine 10 mg tablet 10 mg PO Q8H 07/20/23 07/20/23 fluticasone furoate 100 1 inh inhalation Q24H 07/20/23 07/20/23 mcg-vilanterol 25 mcg/dose inhalation powder (Breo Ellipta) fluticasone propionate 50 2 spray intranasal DAILY 07/20/23 07/20/23 mcg/actuation nasal spray,suspension gabapentin 300 mg capsule 300 mg PO Q8H 07/20/23 07/20/23 glimepiride 4 mg tablet 4 mg PO BID 07/20/23 07/20/23 hydroxyzine HCl 25 mg tablet 25 mg PO Q8H 07/20/23 07/20/23 levothyroxine 125 mcg tablet 125 mcg PO DAILY 07/20/23 07/20/23 lisinopril 20 mg tablet 20 mg PO DAILY 07/20/23 07/20/23 loratadine 10 mg tablet 10 mg PO Q24H 07/20/23 07/20/23 meloxicam 7.5 mg tablet 7.5 mg PO DAILY 07/20/23 07/20/23 metformin 850 mg tablet 850 mg PO BID 07/20/23 07/20/23 prazosin 1 mg capsule 1 mg PO DAILY 07/20/23 07/20/23 tramadol 50 mg tablet 50 mg PO Q12H 07/20/23 07/20/23 venlafaxine 150 mg 150 mg PO DAILY 07/20/23 07/20/23 capsule,extended release 24 hr Previous Rx's ?Medication ?Instructions ?Recorded amoxicillin 875 mg-potassium 1 tab PO BID #20 tabs 07/20/23 clavulanate 125 mg tablet hydrocodone 5 mg-acetaminophen 325 1 tab PO Q6H PRN pain 5 days #20 07/20/23 mg tablet tabs methylprednisolone 4 mg tablets in 4 mg PO DAILY #21 ea 11/01/23 a dose pack (Methylpred DP) oxycodone-acetaminophen 5 mg-325 1 tab PO Q4H PRN pain #10 tabs 12/19/25 mg tablet (Percocet) Allergies Allergy/AdvReac Type Severity Reaction Status Date / Time morphine Allergy Verified 07/20/23 04:16 Opioid HPI Opioid Management Most Recent Opioid Data: Last Pain Scale 9 11/01/23 13:22 11/01/23 PFSH PFSH Social History Smoking status: Never smoker Little interest or pleasure in doing things: not at all Feeling down, depressed, or hopeless: not at all Exam Constitutional Vital Signs, click to edit/add: Last Vital Signs Temp 97.6 F 12/19/24 17:43 Pulse 98 H 12/19/24 17:43 Resp 18 12/19/24 17:43 BP 105/68 12/19/24 17:43 Pulse Ox 95 12/19/24 17:43 O2 Del Method Room Air 12/19/24 17:43 Course Vital Signs Vital signs: Vital Signs Temperature 97.6 F 12/19/24 17:43 Pulse Rate 98 H 12/19/24 17:43 Respiratory Rate 18 12/19/24 17:43 Blood Pressure 105/68 12/19/24 17:43 Pulse Oximetry 95 12/19/24 17:43 Oxygen Delivery Method Room Air 12/19/24 17:43 Temperature 97.6 F 12/19/24 17:43 Pulse Rate 98 H 12/19/24 17:43 Respiratory Rate 18 12/19/24 17:43 Blood Pressure 105/68 12/19/24 17:43 Pulse Oximetry 95 12/19/24 17:43 Oxygen Delivery Method Room Air 12/19/24 17:43 Medical Decision Making MDM Narrative Medical decision making narrative: Patient left knee x-ray shows no acute findings. Patient was given ice, bacitracin, clean dressing was placed along with 1 Percocet. Patient says that he cannot take hydrocodone. Patient did receive pain medication chronically for his left knee, then his PCP is no longer seeing him and she had moved out of the area. Patient has mild to moderate pain to left knee. Patient also has a large mass to the left medial posterior knee that is chronic and getting larger over the past 2 years. Patient is seeing orthopedic surgery this coming in [place] for surgical evaluation and definitive treatment. Patient has already had x-rays and MRIs of his left knee. Patient's fall today is chronic, he has chronic weakness of bilateral lower extremities, not new. Patient uses a cane and walker. Patient feels comfortable going home. Patient will be sent home with pain medication use as needed for left knee pain and to get him until when he sees his orthopedic surgeon. No head injury, no blood thinners. Patient was very polite and thankful. ECG Data Attestation: I personally reviewed and interpreted this ECG as follows: (EKG interpretation. Normal sinus rhythm at 96 beats a minute. Left axis deviation. No acute ST elevation, no acute ectopy. QTc of 397. Artifact seen) Discharge Plan Discharge Chief Complaint: Extremity Problem, Nontraumatic Clinical Impression: Abrasion of knee, left, Fall, Contusion of knee, left Patient Disposition: Home, Self-Care Time of Disposition Decision: 19:33 Condition: Fair Prescriptions / Home Meds: New oxycodone-acetaminophen [Percocet] 5-325 mg tablet 1 tab PO Q4H PRN (Reason: pain) Qty: 10 0RF No Action amlodipine 5 mg tablet 5 mg PO DAILY aspirin 325 mg tablet 325 mg PO DAILY atorvastatin 10 mg tablet 10 mg PO DAILY azelastine 137 mcg (0.1 %) aerosol,spray 1 spray INTRANASAL Q12H buspirone 30 mg tablet 30 mg PO BID clonazepam 1 mg tablet 1 mg PO Q8H cyclobenzaprine 10 mg tablet 10 mg PO Q8H fluticasone furoate-vilanterol [Breo Ellipta] 100-25 mcg/dose blister with device 1 inh INHALATION Q24H fluticasone propionate 50 mcg/actuation spray,suspension 2 spray INTRANASAL DAILY gabapentin 300 mg capsule 300 mg PO Q8H glimepiride 4 mg tablet 4 mg PO BID hydroxyzine HCl 25 mg tablet 25 mg PO Q8H levothyroxine 125 mcg tablet 125 mcg PO DAILY lisinopril 20 mg tablet 20 mg PO DAILY loratadine 10 mg tablet 10 mg PO Q24H meloxicam 7.5 mg tablet 7.5 mg PO DAILY metformin 850 mg tablet 850 mg PO BID prazosin 1 mg capsule 1 mg PO DAILY tramadol 50 mg tablet 50 mg PO Q12H venlafaxine 150 mg capsule,extended release 24hr 150 mg PO DAILY amoxicillin-pot clavulanate 875-125 mg tablet 1 tab PO BID Qty: 20 0RF hydrocodone-acetaminophen 5-325 mg tablet 1 tab PO Q6H PRN (Reason: pain) 5 Days Qty: 20 0RF methylprednisolone [Methylpred DP] 4 mg tablets,dose pack 4 mg PO DAILY Qty: 21 0RF Rx Instructions: please take as per the dose Denys instruction Print Language: Irish Instructions: Contusion in Adults (ED), Abrasion (ED), Fall Prevention (ED) Additional Instructions: Use ice 20 minutes on, 20 minutes off, do not use heat. Use topical antibiotic ointment 3-4 times a day to help with healing and prevent infection. Keep the area open to air and oxygen at nighttime and when you are home to help promote healing. Alternate Tylenol and either Motrin, Advil, or ibuprofen every 4 hours to help with pain. If you are having severe pain, substitute a [place] tablet instead of Tylenol. Do not take Tylenol and [place] at the same time, you may actually take too much Tylenol at 1 setting or in 1 day. Maximum Tylenol dose of Tylenol is 3000 mg a day. Maximum dose of either Motrin, Advil, or ibuprofen is 2400 mg a day. See orthopedic surgeon on your appointment this for your left knee mass. Need to use cane and walker. You had a tetanus update today Referrals: DARIA CHAMPION [Primary Care Provider] - 1 week
[2024-12-19] MEDS: OXYCODONE HCL/ACETAMINOPHEN 5MG/325MG 1 TAB PO (18:39)
[2024-12-19] MEDS: BACITRACIN 0.9 GM PACKET 1 PACKET TOPICAL (18:40)
[2024-12-19] MEDS: ADACEL DIPH,PERTUSS(ACELL),TET VAC/PF 0.5 ML ADULT SYRINGE IM (19:48)
== END 2024-12-19 20:08 | disposition home or self-care (01) ==
PROVIDERS: Emergency Provider Emergency Medicine
DX: S80.212A Abrasion, left knee, initial encounter (principal); S80.02XA Contusion of left knee, initial encounter; W18.39XA Other fall on same level, initial encounter; M25.562 Pain in left knee; G89.29 Other chronic pain; Z96.652 Presence of left artificial knee joint; R22.42 Localized swelling, mass and lump, left lower limb
CPT/HCPCS: 73562; 90471; 90715; 93005; 99285

== ENCOUNTER 2024-12-30 14:13 | Emergency (ER) | payer OTHER, SELFPAY ==
[2024-12-30 14:45] VITALS: BP 126/84; PULSE 99; TEMP 36.8; O2SAT 95; BMI 35.9
--- NOTE | 2024-12-30 15:16 | PC.NURSE ---
pt reports a mass to inside left nee, has been seen here before for this and is in a lot of pain. unclear if pt has any pain meds at home as a prescription for pain meds was given with last visit.
--- NOTE | 2024-12-30 16:28 | ED_ITS ---
HPI HPI - General Adult General Chief complaint: Extremity Problem, Nontraumatic Stated complaint: lower extremity pain Time Seen by Provider: 12/30/24 15:13 Source: patient Limitations: no limitations History of Present Illness HPI narrative: Patient is a 69-year-old male who is presenting to the ER with chief complaint of chronic swelling to the left knee and wanting to understand what is going on with his left knee. Patient receives 120 Percocet monthly from a family nurse practitioner. Patient just had his prescription filled on December 15. I saw patient in the ER December 19 after he had a fall at a gas station. Patient states that he did see the orthopedic surgeon in [place] on December 22. He stated they did an x-ray and did not understand what the next step was. Patient seems confused and states that he does not know what is going on with his knee, does not understand the direction, and patiently uses doctor appointments not understanding further direction or treatment. After discussing this at length with Wanda FLYNN at bedside during the entire HPI and physical exam, patient does have a MRI ordered, he just needs to schedule it which she has not done yet from his December 22 appointment. Patient also has a biopsy of his bone marrow that needs to be scheduled as well which she has not done yet. Patient's had no new injury. Patient still has healing abrasion to the left knee from his fall last week. No secondary signs of infection. No significant new signs of swelling to the medial aspect left knee. Patient is here to try to understand what is going on with his knee, and to help get it fixed. Patient also does have an appointment on January [address] [facility] with orthopedic surgeon Dr. Escamilla. There is no acute new concern, symptom today. Patient is having ongoing chronic issues but came to the ER to see what else could be done. All systems are negative except as noted/marked. All systems reviewed and otherwise negative. Nurses note and vital signs reviewed and patient is not hypoxic. General: The patient appears well and in no apparent distress. Patient is resting comfortably on cart. Patient is not toxic, lethargic, or listless Skin: Warm, dry, no pallor noted. There is no rash noted. No petechiae, purpura. Patient has healing abrasion to left knee. No secondary signs of redness, erythema, cellulitis, or any signs of septic joint to left knee. Head: Normocephalic, atraumatic Eye: Normal conjunctiva, no drainage, EOMI. PERRL Ears, Nose, Mouth, and Throat: oral mucosa is moist. Nares patent. Mouth without vesicles. Cardiovascular: Regular Rate and Rhythm, Respiratory: Patient is in no distress, Back: non-tender, GI: no tenderness Musculoskeletal: Patient has full range of motion of all of the extremities including the left knee. Patient does have a large soft tissue mass/swelling to the medial aspect of left knee, it is not significantly any bigger than it was when I last saw patient on December 19. No secondary signs of infection. No redness erythema or cellulitis or signs infection to left knee., no motor, sensory, or focal neurological deficits. Patient has no new motor or sensory or radiculopathy to left lower extremity. Patient states he will intermittently have numbness and tingling in his left leg. No loss of function. No strokelike signs or symptoms. Neurological: A&O x4, normal speech Psychiatric: Cooperative Related Data Home Medications ?Medication ?Instructions ?Recorded ?Confirmed amlodipine 5 mg tablet 5 mg PO DAILY 07/20/23 12/30/24 aspirin 325 mg tablet 325 mg PO DAILY 07/20/23 12/30/24 azelastine 137 mcg (0.1 %) nasal 1 spray intranasal Q12H 07/20/23 12/30/24 spray buspirone 30 mg tablet 30 mg PO BID 07/20/23 12/30/24 clonazepam 1 mg tablet 1 mg PO Q8H 07/20/23 12/30/24 cyclobenzaprine 10 mg tablet 10 mg PO Q8H 07/20/23 12/30/24 gabapentin 300 mg capsule 300 mg PO Q8H 07/20/23 12/30/24 glimepiride 4 mg tablet 4 mg PO BID 07/20/23 12/30/24 hydroxyzine HCl 25 mg tablet 25 mg PO Q8H 07/20/23 12/30/24 levothyroxine 125 mcg tablet 125 mcg PO DAILY 07/20/23 12/30/24 lisinopril 20 mg tablet 20 mg PO DAILY 07/20/23 12/30/24 meloxicam 7.5 mg tablet 7.5 mg PO DAILY 07/20/23 12/30/24 metformin 850 mg tablet 1,000 mg PO BID 07/20/23 12/30/24 prazosin 1 mg capsule 1 mg PO DAILY 07/20/23 12/30/24 albuterol sulfate 90 mcg/actuation 2 inh inhalation Q6H PRN shortness 12/30/24 12/30/24 aerosol inhaler of breath or wheezing fluticasone 250 mcg-salmeterol 50 1 inh inhalation Q12H 12/30/24 12/30/24 mcg/dose blistr powdr for inhalation rosuvastatin 5 mg tablet 5 mg PO QDAY 12/30/24 12/30/24 Previous Rx's ?Medication ?Instructions ?Recorded hydrocodone 5 mg-acetaminophen 325 1 tab PO Q6H PRN pain 5 days #20 07/20/23 mg tablet tabs Allergies Allergy/AdvReac Type Severity Reaction Status Date / Time morphine Allergy itch Verified 12/30/24 14:45 Opioid HPI Opioid Management Most Recent Opioid Data: Last Pain Scale 9 11/01/23 13:22 11/01/23 PFSH PFSH Social History Smoking status: Never smoker Little interest or pleasure in doing things: not at all Feeling down, depressed, or hopeless: not at all Exam Constitutional Vital Signs, click to edit/add: Last Vital Signs Temp 98.2 F 12/30/24 14:45 Pulse 99 H 12/30/24 14:45 Resp 18 12/30/24 14:45 BP 126/84 12/30/24 14:45 Pulse Ox 95 12/30/24 14:45 O2 Del Method Room Air 12/30/24 14:45 Course Vital Signs Vital signs: Vital Signs Temperature 98.2 F 12/30/24 14:45 Pulse Rate 99 H 12/30/24 14:45 Respiratory Rate 18 12/30/24 14:45 Blood Pressure 126/84 12/30/24 14:45 Pulse Oximetry 95 12/30/24 14:45 Oxygen Delivery Method Room Air 12/30/24 14:45 Temperature 98.2 F 12/30/24 14:45 Pulse Rate 99 H 12/30/24 14:45 Respiratory Rate 18 12/30/24 14:45 Blood Pressure 126/84 12/30/24 14:45 Pulse Oximetry 95 12/30/24 14:45 Oxygen Delivery Method Room Air 12/30/24 14:45 Medical Decision Making MDM Narrative Medical decision making narrative: 15 minutes were spent at bedside with HPI, physical exam, and disposition and trying to help the patient accomplish the goals that he already knows that he has to do. Wanda FLYNN was at bedside during entire HPI physical exam and discharge summary and discussion. We have called central scheduling after 4 PM trying to help patient make an appointment for his MRI, nobody is answering at surgical scheduling at [facility] and messages were left. Patient was educated and explained how he needs to call the radiology department at [facility] or [facility] like he has already been told so that he can have a bone marrow biopsy by interventional radiology. Patient has an orthopedic surgeon at [facility], Dr. Escamilla. Patient did call the office today and was told that he does have an appointment on January 24 there is not much they can do for him at this time. Patient was told if there is any other acute concerns for the weekend or next week to call his orthopedic surgeon for further evaluation. Patient knows that he needs to accomplish MRI. Patient has not called anybody to schedule any appointments for his bone marrow biopsy or his MRI yet. Patient says that he does not know what to do, was not sure who to call her what to do and just wants to know what is going on. When I asked patient what he was hoping would happen today, he was hoping that we would cut out the soft tissue mass in the ER and send it to pathology to see what is going on. Patient was told that whenever procedure will be done most likely will be done in the operating room and that is not an emergent procedure to do. Patient understands. Patient needs to follow-up with PCP, orthopedic surgeon and his continued care team for definitive treatment. There is nothing acute on physical exam and there is no acute testing needs to be done today. Discharge Plan Discharge Chief Complaint: Extremity Problem, Nontraumatic Clinical Impression: Chronic pain of left knee, Swelling of knee joint, left Patient Disposition: Home, Self-Care Condition: Fair Prescriptions / Home Meds: No Action amlodipine 5 mg tablet 5 mg PO DAILY aspirin 325 mg tablet 325 mg PO DAILY azelastine 137 mcg (0.1 %) aerosol,spray 1 spray INTRANASAL Q12H buspirone 30 mg tablet 30 mg PO BID clonazepam 1 mg tablet 1 mg PO Q8H cyclobenzaprine 10 mg tablet 10 mg PO Q8H gabapentin 300 mg capsule 300 mg PO Q8H glimepiride 4 mg tablet 4 mg PO BID hydroxyzine HCl 25 mg tablet 25 mg PO Q8H levothyroxine 125 mcg tablet 125 mcg PO DAILY lisinopril 20 mg tablet 20 mg PO DAILY meloxicam 7.5 mg tablet 7.5 mg PO DAILY metformin 850 mg tablet 1,000 mg PO BID prazosin 1 mg capsule 1 mg PO DAILY hydrocodone-acetaminophen 5-325 mg tablet 1 tab PO Q6H PRN (Reason: pain) 5 Days Qty: 20 0RF albuterol sulfate 90 mcg/actuation HFA aerosol inhaler 2 inh INHALATION Q6H PRN (Reason: shortness of breath or wheezing) fluticasone propion-salmeterol 250-50 mcg/dose blister with device 1 inh INHALATION Q12H rosuvastatin 5 mg tablet 5 mg PO QDAY Print Language: Zambian Instructions: Chronic Pain (ED), Knee Pain (ED) Additional Instructions: Call [place] radiology department or [facility] radiology department and tell them you have an order for a bone marrow biopsy and they can schedule you for an outpatient appointment. We have called central scheduling at [facility]. They are not in the office at this time of your discharge at 4 PM on Thursday afternoon. You need to call [facility] on Thursday, ask for central scheduling. Central scheduling is he will schedule your MRI of your knee to be done as an outpatient. If you have any other acute concerns, call Dr. Escamilla your orthopedic surgeon at [facility], to follow-up and have any other recommendations on how to proceed with your left knee swelling. Referrals: Physician,Non-Staff, MD [Primary Care Provider] - 1 week Discharge Date/Time: 12/30/24 16:14
== END 2024-12-30 16:14 | disposition home or self-care (01) ==
PROVIDERS: Emergency Provider Emergency Medicine
DX: M25.462 Effusion, left knee (principal); M25.562 Pain in left knee; G89.29 Other chronic pain
CPT/HCPCS: 99282

== ENCOUNTER 2025-01-18 20:54 | Inpatient (IN) | payer OTHER, SELFPAY ==
[2025-01-18] VITALS (21 sets, daily range): BP systolic 109–132; BP diastolic 57–82; PULSE 110; TEMP 37; O2SAT 68–99; BMI 35.8
--- OUTSIDE RECORDS SUMMARY | 2025-01-18 20:59 | XMS_ITS | CCD ---
[facility] Organization [facility] Care Team Providers Care Binder Layer Name Role Phone PHYSICIAN, DEFAULT Unavailable Unavailable PHYSICIAN, DEFAULT Unavailable Unavailable Regan Ortega Primary Care Provider Agustin Nj Unavailable Marlin Vasquez Unavailable Regan Ortega Primary Care Provider KIM MCMILLAN Attending Unavailable FAWWAD, CALVO H Primary Care Unavailable KIM MCMILLAN Admitting Unavailable OLGA DRAKE Consulting Unavailable CAYLA MARTIN Consulting Unavailable JOSE ARMANDO Duran, DR GUTIERREZ Admitting Unavailable FAWWAD, CALVO H Primary Care Unavailable JOSE ARMANDO Duran, DR GUTIERREZ Attending Unavailable FAWWAD, CALVO H Consulting Unavailable [...] FAWWAD, CALVO H Primary Care Unavailable DR JONAH GARCIA Consulting Unavailable FAWWAD, CALVO H Consulting Unavailable FAWWAD, CALVO H Consulting Unavailable FAWWAD, CALVO H Attending Unavailable FAWWAD, CALVO H Admitting Unavailable FAWWAD, CALVO H Primary Care Unavailable Dr. Mily Marlow Referring Unavaila ble Jenna, Dr. Dejesus Attending Unavaila ble UNKNOWN, PCP Primary Care Unavailable MD Lalito Grove Primary Care Provider MD Agustin Nj Attending Provider NONE, XXXX Primary Care Physician Unavailab le [place], [place] Unavailable Unavailable Unavailable Guille Tapia DO Primary Care Provider UNKNOWN, PCP Primary Care Unavailable Shawn Marlow Attending Unavailable UNKNOWN, PCP Primary Care Unavailable Shawn Marlow Attending Unavailable Reaganwad, Calvo Primary Care Unavailable Agustin Nj Admitting Unavailable Agustin Nj Attending Unavailable [place], [place] Primary Care Unavailable Cara Egan Admitting Unavailable Cara Egan Attending Unavailable Shaikh Grove MD Primary Care Provider [phone] Shaikh Grove MD Unavailable Shaikh Grove MD Primary Care Provider [phone] SHELLY GROVEIKH Primary Care Unavailable Derrick Buck Referring Unavailable Derrick Buck Attending Derrick Carreon Admitting Unavailable POLLYJOSE ORTEZ Attending Unavailable SHAIKH GROVE Referring Unavailable SHAIKH GROVE Primary Care Unavailable Regan Ortega Mame Primary Care Provider [facility], Linh Nichols Attending U christiano Grove MD, [facility], Linh Nichols Attending U Derrick Christian MD Attending Unavailmame Grove MD, [facility] Jennifer Cespedes MD, Johnny Pearson Attending Federico Grove MD, [facility], Linh Nichols [facility]ending [facility], Linh Nichols Attending U christiano Grove MD, [facility], Linh Nichols Attending U christiano Cespedes MD, Johnny Pearson Attending Unavailable [facility] Linh [facility] Attending U christiano Marie PA-C, Starla Delcid Consulting Unavailable Tatiana WATERMAN, Claudia Hall Admitting Jennifer Simpson MD, Claudia Hall Attending Jennifer Cespedes MD, Johnny Pearson Consulting Unavailable Justin Mcgowan MD Consulting Unavailable Duong Maguire DO Admitting Unavailable Duong Maguire DO Attending Federico Grove MD, [facility] Justin Bacon MD Consulting Unavailable Jimmy Elliott PA-C Consulting UnavailJosef Suggs MD Consulting Unavailmame Marie PA-C, Starla L Consulting Unavailable Rubina WATERMAN, Johnny Pearson Consulting Unavailable [facility], Linh Nichols Attending U christiano Cespedes MD, Johnny Pearson Attending Unavailable [place] WATERMAN, [facility], Linh Nichols Attending U christiano Grove MD, [facility] Primary [facility] Unavai lable [facility] UX CONSULTANT-BRAND MARKETING COORDINATOR, Lucía Delcid Attending Una cheyenne Beaulieu MD, Derrick Coates Attending Unavaila ble Montero UX CONSULTANT-BRAND MARKETING COORDINATOR, Lucía Delcid Attending Unav ailable [place] UX CONSULTANT-BRAND MARKETING COORDINATOR, Linh Nichols Attending [facility] UX CONSULTANT-BRAND MARKETING COORDINATOR, Linh Nichols Attending U christiano Cespedes MD, Johnny Pearson Attending Unavailable [place] WATERMAN, [facility], Linh Nichols Attending U [facility] UX CONSULTANT-BRAND MARKETING COORDINATOR, Linh Nichols Attending U [facility] UX CONSULTANT-BRAND MARKETING COORDINATOR, Linh Nichols Attending U [facility] Cespedes MD, Johnny Pearson Attending Unavailable [place] WATERMAN, [facility] [place] MD, [facility] UX CONSULTANT-[facility], Linh Nichols Attending U christiano Cespedes MD, Johnny Pearson Attending Unavailable [place] WATERMAN, [facility], Linh Nichols Attending U christiano Cespedes MD, Johnny Pearson Attending Unavailable [place] WATERMAN, [facility] JUSTIN Bacon Referring Unavailable SHELLY GROVEIKH Primary Care Unavailable JUSTIN MCGOWAN Referring Unavailable SHAIKH GROVE Primary Care Unavailable JUSTIN MCGOWAN Referring Unavailable SHAIKH GROVE Primary Care Unavailable JUSTIN MCGOWAN Referring Unavailable SHAIKH GROVE Primary Care Unavailable AMBER RAYGOZA Referring Unavailable SHAIKH GROVE Primary Care Unavailable AMBER RAYGOZA Referring Unavailable SHAIKH GROVE Primary Care Unavailable Justin Mcgowan MD Unavailable Shaikh Grove MD Unavailable [facility] OIL LABORATORY ANALYST, Shaniqua Unavailable Joshua WATERMAN, Regan Primary Care Provider Bert PASTER OPERATOR, Daria Unavailable [phone] Joshua WATERMAN, Regan Unavailable Unallocated , [place] Provider Primary Care Provi arthur Joshua WATERMAN, Regan Primary Care Provider Joshua WATERMAN, Regan Primary Care Provider Hany Mack MA Unavailable Unavailable Joshua WATERMAN, Regan Unavailable Adrián Ellison LPN Unavailable Unavailable Joshua WATERMAN, Regan Vilchis Primary Care Provider [phone] Juan M WATERMAN, Justin Villasenor Unavailable REGAN ORTEGA Primary Care Unavailable CARMEN WILLIAM Attending Unavailable REGAN ORTEGA Primary Care Unavailable ROBERTO BRITO Referring Unavailable PARTHA JACKSON Attending Unavailable REGAN ORTEGA Primary Care Unavailable REGAN ORTEGA Primary Care Unavailable PARTHA JACKSON Attending Unavailable Sue WATERMAN, [place] Provider Primary Care Provi arthur GRANT SHETH Attending Unavailable MARCO IZQUIERDO Attending Unavailable NOELDARIA Referring Unavailabl e NOEL, DARIA Attending UnavailGRANT Lux Attending Unavailable ABBI DELGADO Attending Unavailable NOEL, DARIA Referring Unavailabl e NOEL, DARIA Attending Unavailabl e NOELDARIA Attending Unavailabl e GRANT SHETH Attending Unavailable NOEL, DARIA Attending Unavailabl e SHAIKH GROVE Attending Unavailable FAWSHAIKH JUNE Attending Unavailable SHAIKH GROVE Attending Unavailable NOEL, DARIA Attending Unavailabl e NOEL, DARIA Attending Unavailabl e CHNU ROSADO Referring Unavailable DERRICK BARNETT Attending Unavailable CHUN ROSADO Attending Unavailable DERRICK BARNETT Referring Unavailable DERRICK BARNETT Referring Unavailable DERRICK BARNETT Referring Unavailable DERRICK BARNETT Referring Unavailable DERRICK BARNETT Referring Unavailable CHUN ROSADO Referring Unavailable Allergies Allergy Classification Reported Allergen(s) Allergy Type Date of Onset Reaction(s) Facility (20 sources) Morphine; 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: [morphine] Drug Allergy 05-25-20 14 Rash, Itching [facility] (9 sources) Penicillins; 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: [PENICILLINS] Drug Allergy 01-17-20 15 Itching [facility] (20 sources) Bee Sting; 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: [Bee sting] Allergy to substance 08-18-20 18 Swelling, Anaphylaxis [facility] (6 sources) Amoxicillin / Clavulanate Drug Allergy rash [facility] Danger Other (10 sources) Bee/Wasp/Ant venom; 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: [Bee Stings] Propensity to adverse reactions Difficulty breathing (finding) [facility] (8 sources) cefdinir Drug Allergy Panic Attacks, Palpitations, SOB [facility] Danger Other (15 sources) Penicillins Drug Allergy 01-17-20 15 Itching [facility] (1 source) Acetaminophen / HYDROcodone Drug Allergy [facility] (1 source) bee venom Drug allergy (disorder) 09-23-20 16 [facility] (1 source) Morphine Drug Allergy 05-12-20 14 [facility] (1 source) Penicillins Drug allergy (disorder) 01-17-20 15 [facility] (2 sources) Amoxicillin / Clavulanate Drug Allergy rash [facility] Danger Other (1 source) Amoxicillin Drug Allergy 06-02-20 23 [facility] (1 source) cefdinir Drug Allergy 06-02-20 23 [facility] (1 source) Clavulanate Drug Allergy 06-02-20 23 [facility] (1 source) Morphine Drug Allergy 11-04-19 24 [facility] (3 sources) bee venom protein (honey bee); 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: [BEE VENOM PROTEIN (HONEY BEE)] Drug allergy (disorder) 08-18-20 18 [facility] (20 sources) Honey bee venom; 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: [bee venom] Propensity to adverse reactions 03-25-20 23 Anaphylaxis [facility] (20 sources) Acetaminophen / HYDROcodone; 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: [HYDROCODONE-ACET AMINOPHEN] Drug Allergy 02-02-20 21 Nausea Only [facility] (1 source) No Known Medication Allergies; 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: [No Known Medication Allergies] Propensity to adverse reactions to drug (disorder) [facility] Rep[facility] (1 source) ALLERGIES NOT ON FILE; 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: [ALLERGIES NOT ON FILE] Propensity to adverse reactions (disorder) [facility] Medications Current Medications Medication Drug Class(es) Dates Sig (Normalized) Sig (Original) acetaminophen 325 mg / oxyCODONE hydrochloride 5 mg oral tablet (20 sources) Opioid Agonist Start: 08-20-2024 End: 01-26-2025 take 1 tablet by mouth every six hours for pain oxyCODONE-acetamin ophen (Percocet) 5-325 MG tablet Indications: Lumbar spondylosis , Acute pain of right shoulder , Knee pain, unspecified chronicity, unspecified laterality , Medication refill Take 1 tablet by mouth every 6 (six) hours if needed for severe pain for up to 15 days 60 tablet 01/11/2025 01/26/2025 Active Start: 06-22-2024 End: 08-17-2024 take 1 tablet by mouth every six hours for pain oxyCODONE-acetaminophen (Percocet) 5-325 MG tablet Indications: Lumbar spondylosis , Acute pain of right shoulder , Knee pain, unspecified chronicity, unspecified laterality Take 1 tablet by mouth every 6 (six) hours if needed for severe pain 120 tablet 07/18/2024 08/17/2024 Active Start: 02-12-2022 take 1 tablet by richard th every eight hours as needed for pain oxyCODONE-acetaminophen (PERCOCET) 5-325 mg tablet Indications: Otalgia, right Take 1 tablet by mouth every 8 hours as needed for pain. 3 tablet 0 02/12/2022 Active Comment on above: Take 1 tablet by richard th every 8 hours as needed for pain. [id number] 200 actuat albuterol 0.09 mg/actuat metered dose inhaler (20 sources) beta2-Adrenergic Agonist Start: 4 End: 4 take 2 puff(s) by inhalation every four hours albuterol HFA (ProAir HFA) 90 mcg/act inhaler Indications: COPD with exacerbation (CMS/HCC) Inhale 2 puffs every 4 (four) hours if needed for shortness of breath 18 g 2 06/21/2024 Active take 2 puff(s) by in halation every four hours as needed albuterol HFA (PROVENTIL HFA, VENTOLIN H FA) 90 mcg/actuation inhaler Inhale 2 Puffs as instructed every 4 hours as needed. Active take 2 puff(s) by in halation every six hours as needed for wheezing albuterol sulfate HFA 108 (90 BASE) MCG/ ACT inhaler Inhale 2 puffs into the lungs every 6 hours as needed for Wheezing Active take 2 puff(s) by in halation every four hours albuterol HFA (ProAir HFA) 90 mcg/act inhaler Inhale 2 puffs every 4 (four) hours if needed for shortness of breath Active ProAir HFA 108 ( 90 Base) MCG/ACT 1- 2 puffs as needed Inhalation every 4 hrs Active amLODIPine 5 mg oral tablet (20 sources) Dihydropyridine Calcium Channel Catherine Start: 12-12-2024 take 1 tablet by mouth once daily amLODIPine (Norvasc) 5 MG tablet Indications: Essential (primary) hypertension (CMS/HCC) , Medication refill Take 1 tablet (5 mg) by mouth Daily 90 tablet 12/12/2024 Active Start: 01-05-2023 End: 12-08-2024 take 1 tablet by mouth once daily amLODIPine (Norvasc) 5 MG tablet Indications: Essential (primary) hypertension (CMS/HCC) Take 1 tablet (5 mg) by mouth Daily 90 tablet 1 05/02/2024 12/08/2024 Discontinued (Reorder) Start: 04-26-2012 take 1 tablet by richard th once daily amLODIPine (NORVASC) 10 mg tablet Take 1 tablet by mouth once daily. 0 04/26/2012 Active Comment on above: Take 1 tablet by richard th once daily. ascorbic acid 500 mg extended release oral capsule (20 sources) Vitamin C take 1 capsule by mouth once daily ascorbic acid (Vitamin C) 500 MG ER capsule Take 500 mg by mouth 1 (one) time each day at the same time. Active azelastine hydrochloride 0.137 mg/actuat metered dose nasal spray (14 sources) Histamine-1 Receptor Antagonist Start: 10-31-19 23 take 1 spray(s) nasal route twice daily azelastine (ASTELIN, ASTEPRO) 0.1% nasal spray 1 spray in each nostril twice daily for 30 days 15 mL 3 10/31/2022 Active Comment on above: 1 spray in each nost ril twice daily for 30 days Blood Glucose Monitoring Suppl (FreeStyle Lite) device (20 sources) Start: 05-12-20 24 Blood Glucose Monitoring Suppl (FreeStyle Lite) device Indications: Type 2 diabetes mellitus with diabetic neuropathy, without long-term current use of insulin ([facility]) Test daily before all meals/snacks and once before bedtime. 1 each 05/12/2024 Active Breo Ellipta 100-25 MCG/INH (3 sources) Start: 02-07-20 14 take 1 puff(s) by inhalation once daily Breo Ellipta 100-25 MCG/INH 1 puff Inhalation Once a day for 90 day(s) Jan, Active buprenorphine 8 mg / naloxone 2 mg sublingual tablet (4 sources) Partial Opioid Agonist, Opioid Antagonist buprenorphine-nalo xone (SUBOXONE) 8-2 MG SUBL [address] tablet Place 8 mg under the tongue 2 times daily 0 Active busPIRone hydrochloride 30 mg oral tablet (20 sources) Start: 05-02-20 End: 06-06-20 take 1 tablet by mouth once busPIRone (Buspar) 30 MG tablet Indications: Other specified anxiety disorders , Medication refill Take 1 tablet (30 mg) by mouth every 12 (twelve) hours 180 tablet 12/08/2024 06/06/2025 Active Start: 03-27-2023 take 50 mg by mouth in the morning BUSPIRONE HCL PO Take 50 mg by mouth in the morning. 0 03/27/2023 Active Start: 03-27-2023 take 50 mg by mouth twice aakash y busPIRone 50 mg, Oral, BID, Refills(s) 0, Anxiety Start Date: 03/27/23 Status: Ordered Start: 08-11-2022 take 1 tablet by richard th every twelve hours busPIRone (Buspar) 30 MG tablet Indications: Other specified anxiety disorders TAKE 1 TABLET BY MOUTH EVERY 12 HOURS 200 tablet 0 12/02/2023 Active take 1 tablet by richard th three times daily busPIRone (BUSPAR) 15 mg tablet Take 15 mg by mouth three times daily. Active Comment on above: Take 15 mg by mouth three times daily. canagliflozin 300 mg oral tablet (4 sources) Sodium-Glucose Cotransporter 2 Inhibitor take 300 mg by mouth once daily Canagliflozin (INVOKANA PO) Take 300 mg by mouth daily 0 Active clonazePAM 1 mg oral tablet (20 sources) Benzodiazepine Start: 05-27-20 End: 11-23-19 take 1 tablet by mouth every eight hours as needed clonazePAM (KlonoPIN) 1 MG tablet Take 1 mg by mouth every 8 (eight) hours if needed 05/27/2024 11/23/2024 Active Start: 08-16-2021 End: 05-09-2025 take 1 tablet by mouth three times daily as needed clonazePAM (KlonoPIN) 1 MG tablet Take 1 mg by mouth 3 (three) times a day as needed 11/24/2024 Active take 1 tablet by richard twice daily clonazePAM 0.5 MG (Schedule IV Drug) take 1 tablet by mouth twice a day Oral for 30 Active Comment on above: Take 1 tablet by richard three times daily for 90 days. Take 1 tablet by richard three times daily for 180 days. cloNIDine hydrochloride 0.1 mg oral tablet (20 sources) Central alpha-2 Adrenergic Agonist Start: 07-19-20 19 cloNIDine HCl (CATAPRES) 0.1 mg tablet 07/19/2019 Active cyclobenzaprine hydrochloride 10 mg oral tablet (20 sources) Muscle Relaxant Start: 11-02-19 End: 06-22-20 24 take 1 tablet by mouth three times daily cyclobenzaprine (FLEXERIL) 10 mg tablet Take 1 tablet by mouth three times a day. 11/02/2023 Active doxycycline hyclate 100 mg oral capsule (20 sources) Tetracycline-class Drug Start: 09-04-20 take 1 capsule by mouth twice daily doxycycline hyclate (VIBRAMYCIN) 100 mg capsule Take 100 mg by mouth two times a day. 09/04/2023 Active Start: 11-06-2022 End: 11-16-2022 take 1 tablet by mouth twice daily doxycycline monohydrate 100 mg tablet Take 1 tablet by mouth twice daily for 10 days. 20 tablet 0 11/06/2022 11/16/2022 Active Start: 04-09-2022 take 1 capsule by mo [facility] every twelve hours Doxycycline Hyclate 100 MG 1 capsule Orally Twice a day for 10 day(s) Mar, Active Comment on above: [facility] famotidine [...] mg by mouth daily 0 Active fluticasone propionate 0.05 mg/actuat metered dose nasal spray (20 sources) Corticosteroid Start: 11-29-19 take 2 spray(s) nasal route once daily fluticasone (Flonase) 50 MCG/ACT nasal spray Indications: Acute upper respiratory infection, unspecified Administer 2 sprays into each nostril Daily Shake gently. Before first use, prime pump. After use, clean tip and replace cap. 16 g 1 11/29/2024 Active Start: 08-31-2024 End: 11-28-2024 take 2 spray(s) nasal route once daily fluticasone (Flonase) 50 MCG/ACT nasal spray Indications: Acute upper respiratory infection, unspecified USE 2 SPRAYS IN EACH NOSTRIL ONCE A DAY Shake gently. Before first use, prime pump. After use, clean tip and replace cap. 16 g 1 08/31/2024 11/28/2024 Discontinued (Reorder) Start: 07-19-2024 End: 08-31-2024 take 2 spray(s) nasal route once daily fluticasone (Flonase) 50 MCG/ACT nasal spray Indications: Acute upper respiratory infection, unspecified Administer 2 sprays into each nostril Daily Shake gently. Before first use, prime pump. After use, clean tip and replace cap. 16 g 1 07/19/2024 08/31/2024 Discontinued Start: 01-18-2024 End: 07-19-2024 take 2 spray(s) nasal route once daily fluticasone (Flonase) 50 MCG/ACT nasal spray Indications: Acute upper respiratory infection, unspecified instill 2 (TWO) sprays IN EACH NOSTRIL DAILY 16 g 1 01/18/2024 07/19/2024 Discontinued (Reorder) Start: 11-02-2023 End: 12-02-2023 take 2 spray(s) nasal route once daily fluticasone (Flonase) 50 MCG/ACT nasal spray Indications: Acute upper respiratory infection, unspecified instill 2 (TWO) sprays IN EACH NOSTRIL DAILY 16 g 0 12/02/2023 Active Start: 03-27-2023 take 1 puff(s) by in halation every twenty-four hours fluticasone furoate 50 mcg inhalation powder = 1 puff(s), Inhalation, q24hr, Refills(s) 0, Allergy symptoms Start Date: 03/27/23 Status: Ordered 60 actuat fluticasone propionate 0.25 mg/actuat / salmeterol 0.05 mg/actuat dry powder inhaler (4 sources) Corticosteroid, beta2-Adrenergic Agonist Start: 10-24-2024 take 1 puff(s) by inhalation every twelve hours Wixela Inhub 250-50 MCG/ACT aerosol powder INHALE 1 PUFF EVERY 12 HOUR FOR 30 DAYS 10/24/2024 Active Fluticasone Furoate-Vilantero l (BREO ELLIPTA IN) (6 sources) take 1 puff(s) by inhalation twice daily Fluticasone Furoate-Vilanter ol (BREO ELLIPTA IN) Inhale 1 puff into the lungs 2 times daily Active take 1 puff(s) by in halation twice daily Fluticasone Furoate-Vilanterol (BREO ELL IPTA IN) Inhale 1 puff into the lungs 2 times daily 0 Active gabapentin 600 mg oral tablet (20 sources) Anti-epileptic Agent Start: 09-29-2024 End: 03-08-2025 take 1 tablet by mouth in the morning, then take 1 tablet by mouth in the evening, then take 1 tablet by mouth at bedtime gabapentin (Neurontin) 600 MG tablet Indications: Type 2 diabetes mellitus with diabetic neuropathy, without long-term current use of insulin ([facility]) , Medication refill Take 1 tablet (600 mg) by mouth in the morning and 1 tablet (600 mg) in the evening and 1 tablet (600 mg) before bedtime. 270 tablet 12/08/2024 03/08/2025 Active Start: 05-02-2024 End: 07-31-2024 take 1 tablet by mouth in the morning, then take 1 tablet by mouth in the evening, then take 1 tablet by mouth at bedtime gabapentin (Neurontin) 600 MG tablet Indications: Type 2 diabetes mellitus with diabetic neuropathy, without long-term current use of insulin (CMS/HCC) Take 1 tablet (600 mg) by mouth in the morning and 1 tablet (600 mg) in the evening and 1 tablet (600 mg) before bedtime. 270 tablet 05/02/2024 Active Start: 12-18-2022 End: 01-01-2024 take 2 capsules by mouth in the morning, then take 2 capsules by mouth in the evening, then take 2 capsules by mouth at bedtime gabapentin (Neurontin) 300 MG capsule Indications: Type 2 diabetes mellitus with diabetic neuropathy, unspecified (CMS/HCC) Take 2 capsules (600 mg) by mouth in the morning and 2 capsules (600 mg) in the evening and 2 capsules (600 mg) before bedtime. 180 capsule 2 10/03/2023 01/01/2024 Active take 1 capsule by mo [facility] three times daily gabapentin (NEURONTIN) 300 mg capsule Take 300 mg by mouth three times daily. Active take 3 capsules by m outh every twenty-four hours Neurontin 100 mg 3 capsule Orally Once a day Active Comment on above: Take 300 mg by mouth three times daily. glimepiride 4 mg oral tablet (20 sources) Sulfonylurea Start: End: take 0.5 tablet by mouth once glimepiride (Amaryl) 4 MG tablet Indications: Type 2 diabetes mellitus with diabetic neuropathy, unspecified (CMS/HCC) , Medication refill Take 0.5 tablets (2 mg) by mouth every 12 (twelve) hours 90 tablet 12/08/2024 Active Start: 05-02-2024 End: 06-22-2024 take 1 tablet by mouth once glimepiride (Amaryl) 4 MG tablet Indications: Type 2 diabetes mellitus with diabetic neuropathy, unspecified (CMS/HCC) Take 1 tablet (4 mg) by mouth every 12 (twelve) hours 180 tablet 1 05/02/2024 Active Start: 09-29-2023 take 1 tablet by richard th every twelve hours glimepiride (Amaryl) 4 MG tablet Indications: Type 2 diabetes mellitus with diabetic neuropathy, unspecified ([facility]/HCC) TAKE 1 TABLET BY MOUTH EVERY 12 HOURS 180 tablet 0 09/29/2023 Active Start: 03-27-2023 take 1 tablet by richard th twice daily glimepiride 4 mg Tab 4 mg = 1 tab(s), Oral, BID, Refills(s) 0, High blood sugar Start Date: 03/27/23 Status: Ordered Start: 08-11-2022 take 1 tablet by richard th every twelve hours Glimepiride 4 MG Oral Tablet TAKE 1 TABLET BY MOUTH EVERY 12 HOURS Quantity: 60 Refills: 0 Ordered: 04-Jan-2023 DO Start : 11-Aug-2022 Active Comment on above: Take 4 mg by mouth d aily with breakfast. hydroCHLOROthiazide 25 mg oral tablet (14 sources) Thiazide Diuretic take 1 tablet by mouth once daily hydrochlorothiazide (HYDRODIURIL) 25 MG tablet Take 25 mg by mouth daily. 0 Active Hydrochlorothiaz mj 12.5 mg capsule hydrochlorothiazide 12.5 mg capsule 0 Active Comment on above: hydrochlorothiazide 12.5 mg capsule hydrOXYzine hydrochloride 50 mg oral tablet (20 sources) Antihistamine Start: End: take 1 tablet by mouth three times daily as needed for anxiety hydrOXYzine HCl (Atarax) 50 MG tablet Indications: Anxiety disorder, unspecified , Medication refill Take 1 tablet (50 mg) by mouth 3 (three) times a day as needed for anxiety 270 tablet 12/08/2024 Active Start: 12-05-2024 take 1 tablet by richard th three times daily as needed for anxiety hydrOXYzine HCl (Atarax) 50 MG tablet Indications: Anxiety disorder, unspecified Take 1 tablet (50 mg) by mouth 3 (three) times a day as needed for anxiety 270 tablet 12/05/2024 Active Start: 02-02-2023 End: 12-05-2024 hydrOXYzine HCl (ATARAX) 50 mg tablet Take 50 mg by mouth. 02/02/2023 Active Start: 02-02-2023 hydrOXYzine HC l - 50 MG Oral Tablet Quantity: 90 Refills: 0 Ordered: 02-Feb-2023 DO Start : 02-Feb-2023 Active take 1 tablet by richard th once daily hydrOXYzine HCl (ATARAX) 50 MG tablet Take 1 tablet by mouth daily Active isopropyl alcohol 0.7 ml/ml medicated pad (20 sources) Start: 05-12-2024 Alcohol Sheets (Alcoh-Wipe) sheet Indications: Type 2 diabetes mellitus with diabetic neuropathy, without long-term current use of insulin (CMS/HCC) Once daily 100 each 11 05/12/2024 Active levothyroxine sodium 0.125 mg oral tablet (20 sources) l-Thyroxi ne Start: 05-02-2024 End: 01-29-2025 take 1 tablet by mouth once daily levothyroxine (Synthroid, Levoxyl) 125 MCG tablet Indications: Hypothyroidism, unspecified (CMS/HCC) Take 1 tablet (125 mcg) by mouth Daily 90 tablet 1 08/02/2024 01/29/2025 Active Start: 11-02-2023 End: 12-02-2023 take 1 tablet by mouth once daily levothyroxine (Synthroid, Levoxyl) 125 MCG tablet Indications: Hypothyroidism, unspecified (CMS/HCC) TAKE 1 TABLET BY MOUTH DAILY 30 tablet 0 12/02/2023 Active Start: 03-27-2023 take 1 capsule by [facility] once daily levothyroxine 125 mcg (0.125 mg) oral capsule 125 mcg = 1 cap(s), Oral, Daily, Refills(s) 0, Thyroid Start Date: 03/27/23 Status: Ordered Levothyroxine 11 2 mcg cap Take by mouth. Active levothyroxine (S YNTHROID) 75 MCG tablet Take 125 mcg by mouth Daily Active levothyroxine (S YNTHROID) 75 MCG tablet Take 100 mcg by mouth Daily 0 Active take 1 capsule by [facility] once daily before breakfast Levothyroxine Sodium 125 MCG Oral Capsule TAKE 1 CAPSULE BY MOUTH EVERY MORNING BEFORE BREAKFAST ON EMPTY STOMACH Quantity: 0 Refills: 0 Ordered: 09-Apr-2023 DO Active take 1 tablet by richard once daily Levothyroxine Sodium 100 MCG take 1 tablet by mouth once daily Oral for 30 Active Comment on above: Take by mouth. lidocaine 30 mg/ml topical cream (4 sources) Antiarrhythmic, Amide Local Anesthetic Lidocaine 3 % cream Apply topically. 0 Active linagliptin 5 mg oral tablet (4 sources) Dipeptidyl Peptidase 4 Inhibitor take 5 mg by mouth once daily Linagliptin (TRADJENTA PO) Take 5 mg by mouth daily 0 Active lisinopril 20 mg oral tablet (20 sources) Angiotensin Converting Enzyme Inhibitor Start: End: take 1 tablet by mouth once daily lisinopril 20 MG tablet Indications: Essential hypertension (CMS/HCC) , Medication refill Take 1 tablet (20 mg) by mouth Daily 90 tablet 12/08/2024 06/06/2025 Active Start: 11-23-2023 End: 12-02-2023 take 1 tablet by mouth once daily lisinopril 20 MG tablet Indications: Essential hypertension (CMS/HCC) TAKE 1 TABLET BY MOUTH DAILY 100 tablet 0 12/02/2023 Active Start: 08-11-2022 take 1 tablet by richard th once daily lisinopril 20 mg Tab 20 mg = 1 tab(s), Oral, Daily, Refills(s) 0, High blood pressure Start Date: 03/27/23 Status: Ordered take 1 tablet by richard th once daily lisinopril (ZESTRIL, PRINIVIL) 10 mg tablet Take 10 mg by mouth once daily. Active take 0.5 tablet by m outh once daily lisinopril (PRINIVIL;ZESTRIL) 40 MG tablet Take 0.5 tablets by mouth daily Active take 2.5 mg by mouth once daily lisinopril (PRINIVIL;ZESTRIL) 40 MG tablet Take 2.5 mg by mouth daily 0 Active Comment on above: Take 10 mg by mouth once daily. loratadine 10 mg oral tablet (20 sources) Start: 03-27-2023 take 1 capsule by mouth once daily loratadine 10 mg oral capsule 10 mg = 1 cap(s), Oral, Daily, # 10 cap(s), Refills(s) 0, Allergy symptoms Start Date: 03/27/23 Status: Ordered Start: 02-02-2023 take 1 tablet by richard th once daily Allergy Relief 10 MG tablet Indications: Acute upper respiratory infection, unspecified TAKE 1 TABLET BY MOUTH DAILY 100 tablet 1 02/17/2024 Active Comment on above: Take 10 mg by mouth once daily. lurasidone hydrochloride 20 mg oral tablet (4 sources) Atypical Antipsychotic take 1 tablet by mouth once daily lurasidone (LATUDA) 20 MG TABS tablet Take 20 mg by mouth daily 0 Active meloxicam 7.5 mg oral tablet (20 sources) Nonsteroidal Anti-inflammatory Drug Start: 11-02-19 take 1 tablet by mouth once daily meloxicam (Mobic) 7.5 MG tablet Indications: Unspecified osteoarthritis, unspecified site TAKE 1 TABLET BY MOUTH DAILY 90 tablet 1 01/18/2024 Active Start: 02-15-2019 take 1 tablet by richard th once daily meloxicam (MOBIC) 15 mg tablet Take 1 tablet by mouth once daily. 30 tablet 02/15/2019 Active Comment on above: Take 1 tablet by richard th once daily. metFORMIN hydrochloride 1000 mg oral tablet (20 sources) Biguanide Start: End: take 1 tablet by mouth in the morning metFORMIN (Glucophage) 850 MG tablet Indications: Type 2 diabetes mellitus with diabetic neuropathy, without long-term current use of insulin (CMS/HCC) Take 1 tablet (850 mg) by mouth in the morning and 1 tablet (850 mg) before bedtime. 180 tablet 1 05/02/2024 10/29/2024 Active Start: 08-11-2022 take 1 tablet by richard th twice daily metformin 850 mg Tab 850 mg = 1 tab(s), Oral, BID, Refills(s) 0, High blood sugar Start Date: 03/27/23 Status: Ordered Start: 10-01-2014 End: 12-08-2025 take 1 tablet by mouth in the morning metFORMIN (Glucophage) 1000 MG tablet Indications: Type 2 diabetes mellitus with diabetic neuropathy, without long-term current use of insulin (CMS/HCC) , Medication refill Take 1 tablet (1,000 mg) by mouth in the morning and 1 tablet (1,000 mg) in the evening. Take with meals. 180 tablet 12/08/2024 12/08/2025 Active Comment on above: Take 1 tablet by richard th twice daily. metoprolol tartrate 50 mg oral tablet (6 sources) beta-Adrenergic Catherine take 1 tablet by mouth twice daily metoprolol (LOPRESSOR) 50 MG tablet Take 1 tablet by mouth 2 times daily Active Multiple Vitamins-Minerals (THERAPEUTIC MULTIVITAMIN-MINERALS) tablet (6 sources) take 1 tablet by mouth once daily Multiple Vitamins-Minerals (THERAPEUTIC MULTIVITAMIN-MINERALS) tablet Take 1 tablet by mouth daily Active take 1 tablet by mouth once aakash y Multiple Vitamins-Minerals (THERAPEUTIC MULTIVITAMIN-MINERALS) tablet Take 1 tablet by mouth daily 0 Active multivitamin tablet (20 sources) take 1 tablet by richard th once daily multivitamin tablet Take 1 tablet by mouth once daily. Active take 1 tablet by mouth once aakash y multivitamin tablet Take 1 tablet by mouth once daily. 0 Active Comment on above: Take 1 tablet by richard th once daily. omeprazole 40 mg delayed release oral capsule (4 sources) Proton Pump Inhibitor omeprazole (PRILOSEC ) 40 MG capsule Take 40 mg by mouth as needed 0 Active PARoxetine mesylate 40 mg oral tablet (4 sources) Serotonin Reuptake Inhibitor PARoxetine HCl (PAXI L PO) Take by mouth Patient takes 40 mg at night and 20 mg daily 0 Active prazosin 1 mg oral capsule (20 sources) alpha-Adrenergic Catherine Start: 2 End: 5 take 1 capsule by mouth at bedtime prazosin (Minipress) 1 MG capsule Indications: Essential (primary) hypertension (CMS/HCC) Take 1 capsule (1 mg) by mouth at bedtime 90 capsule 11/24/2024 05/23/2025 Active take 1 capsule by mouth twice da jose antonio prazosin (MINIPRESS) 1 mg cap Take 1 mg by mouth twice daily. Active Comment on above: Take 1 mg by mouth t wice daily. predniSONE 10 mg oral tablet (3 sources) Start: 022 predniSONE 10 MG 4 tabs x 3 days, 2 tabs x 3 days, 1 tab x 3 days, then stop. Orally Once a day for 9 days Sep, Active ProAir HFA 108 (90 Base) MCG/ACT (5 sources) ProAir HFA 108 ( 90 Base) MCG/ACT 1- 2 puffs as needed Inhalation every 4 hrs Active rosuvastatin calcium 5 mg oral tablet (20 sources) HMG-CoA Reductase Inhibitor Start: 024 End: 025 take 1 tablet by mouth once daily rosuvastatin (Crestor) 5 MG tablet Indications: Mixed hyperlipidemia (CMS/HCC) , Medication refill Take 1 tablet (5 mg) by mouth Daily 90 tablet 12/08/2024 Active tamsulosin hydrochloride 0.4 mg oral capsule [...] a day for 90 day(s) Apr, Active tiotropium (Spir galina Respimat) 1.25 MCG/ACT inhaler Inhale 2 puffs in the morning. Active tiotropium bromi de (SPIRIVA RESPIMAT) 2.5 mcg/actuation inhaler Inhale as instructed. Active take 1 capsule by in halation once daily tiotropium (SPIRIVA) 18 MCG inhalation capsule Inhale 1 capsule into the lungs daily Active tiotropium bromi de (SPIRIVA RESPIMAT) 2.5 [...] days, # 50 tab(s), Refills(s) 2, Pharmacy: [id number], 187.5, cm, 03/27/23 9:49:00 EDT, Height/Length Dosing, 146.5, kg, 03/27/23 9:49:00 EDT, Weight Dosing Start Date: 04/10/23 Status: Ordered Start: 03-02-2023 take 1 tablet by richard every six hours as needed traMADol HCl - 50 MG Oral Tablet TAKE 1 TABLET BY MOUTH EVERY 6 HOURS NEEDED Quantity: 20 Refills: 0 Ordered: 02-Mar-2023 DO Start : 02-Mar-2023 Active 24 hr venlafaxine 150 mg extended release oral capsule (20 sources) Serotonin and Norepinephrine Reuptake Inhibitor Start: 05-02-2024 End: 05-23-2025 take 1 capsule by mouth once daily venlafaxine XR (Effexor XR) 150 MG 24 hr capsule Indications: Anxiety disorder, unspecified Take 1 capsule (150 mg) by mouth Daily Do not crush or chew. 90 capsule 11/24/2024 05/23/2025 Active Start: 03-27-2023 take 1 tablet by richard th once daily venlafaxine 75 mg Tab 75 mg = 1 tab(s), Oral, Daily, Refills(s) 0, Depression Start Date: 03/27/23 Status: Ordered Start: 02-03-2023 take 1 capsule by mo uth every twenty-four hours Venlafaxine HCl ER 75 MG Oral Capsule Extended Release 24 Hour Quantity: 30 Refills: 0 Ordered: 03-Feb-2023 DO Start : 03-Feb-2023 Active take 1 capsule by mo uth every twenty-four hours in the morning venlafaxine XR (Effexor XR) 150 MG 24 hr capsule Take 150 mg by mouth in the morning. Do not crush or chew. . 0 Active Comment on above: Take 150 mg by mouth once daily. vortioxetine 20 mg oral tablet (20 sources) vortioxetine (TR INTELLIX) 20 mg tablet Take by mouth. Active Comment on above: Take by mouth. Completed/Discontinued Medications Medication Drug Class(es) Dates Sig (Normalized) Sig (Original) aspirin 325 mg oral tablet (20 sources) Platelet Aggregation Inhibitor, Nonsteroidal Anti-inflammatory Drug Start: 06-25-2023 End: 08-02-2024 take 1 tablet by mouth once daily aspirin 325 MG tablet Take 325 mg by mouth Daily 06/25/2023 08/02/2024 Discontinued (Therapy completed) Start: 06-08-2014 take 1 tablet by richard th twice daily aspirin 81 mg chewable tablet Take 1 tablet by mouth twice daily. 56 tablet 0 06/08/2014 Active take 1 tablet by richard th once daily aspirin 81 MG EC tablet Take 81 mg by mouth 1 (one) time each day at the same time. 0 Active Comment on above: Take 1 tablet by richard twice daily. atorvastatin 10 mg oral tablet (20 sources) HMG-CoA Reductase Inhibitor Start: End: take 1 tablet by mouth once daily atorvastatin (Lipitor) 10 MG tablet Take 10 mg by mouth Daily 08/03/2024 12/08/2024 Discontinued (Med list cleanup) Start: 05-12-2022 End: 12-02-2023 take 1 tablet by mouth at bedtime atorvastatin (Lipitor) 10 MG tablet Indications: Hyperlipidemia, unspecified hyperlipidemia type (CMS/HCC) TAKE 1 TABLET BY MOUTH BEFORE bedtime 100 tablet 0 12/02/2023 Active Comment on above: Take 10 mg by mouth once daily. fluticasone / vilanterol (20 sources) Corticosteroid, beta2-Adrenergic Agonist Start: take 1 [IU] by inhalation once daily [...] Inhale 1 Inhalation as instructed once daily. Active End: 12-08-2024 take 1 puff(s) by inhalation once daily Fluticasone Furoate-Vilanterol (Breo Ellipta) 100-25 MCG/ACT aerosol powder Inhale 1 puff 1 (one) time each day at the same time 12/08/2024 Discontinued (Med list cleanup) Fluticasone Furo ate-Vilanterol (Breo Ellipta) 100-25 MCG/ACT aerosol powder Inhale. 0 Active Comment on above: Inhale 1 Inhalation as instructed once daily. ibuprofen 800 mg oral tablet (2 sources) Nonsteroidal Anti-inflammatory Drug Start: 06-10-20 24 End: 12-08-19 ibuprofen 800 MG tablet TAKE 1 TABLET BY MOUTH EVERY 6 TO 8 HOURS NEEDED FOR PAIN 06/10/2024 12/08/2024 Discontinued (Med list cleanup) methylPREDNISolone (2 sources) Corticosteroid Start: 01-28-20 23 methylPREDNISolone (MEDROL DOSE-PACK) 4 mg Dose-Pack Indications: Fluid level behind tympanic membrane of right ear As Instructed per package 21 tablet 0 01/27/2023 Active Comment on above: As Instructed per aman campbell ofloxacin 3 mg/ml otic solution (19 sources) Quinolone Antimicrobial Start: 07-12-20 ofloxacin (FLOXIN) 0.3 % otic solution Use [...] Drops in the e ars twice daily. semaglutide 7 mg oral tablet (20 sources) Start: 09-12-20 End: 09-12-20 take 1 tablet by mouth in the morning semaglutide (Rybelsus) 7 MG tablet Indications: Type 2 diabetes mellitus with diabetic neuropathy, without long-term current use of insulin (CMS/HCC) Take 1 tablet (7 mg) by mouth in the morning. Take before meals. Do not start before September 12, 2024. 30 tablet 1 09/12/2024 12/08/2024 Discontinued (Med list cleanup) Start: 08-11-2024 End: 12-08-2024 take 1 tablet by mouth before mealtime semaglutide (Rybelsus) 3 MG tablet Indications: Type 2 diabetes mellitus with diabetic neuropathy, without long-term current use of insulin (CMS/HCC) Take 1 tablet (3 mg) by mouth in the morning. Take before meals. 30 tablet 08/11/2024 12/08/2024 Discontinued (Med list cleanup) Triamcinolone (14 sources) Corticosteroid Start: 09-07-2019 Kenalog -40 mg Aug, 40 mg Start: 05-23-2019 Kenalog -40 mg May, 40 mg zolpidem tartrate 10 mg oral tablet (18 sources) gamma-Aminobutyric Acid-ergic Agonist zolpidem (AMBIEN) 10 mg tab Take by mouth at bedtime as needed. 0 Active Comment on above: Take by mouth at bed time as needed. Problems Active Problems Problem Classification Problem Date Documented Date Episodic/Chronic Administrative/social admission (8 sources) Repeated prescription; 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: [Encounter for issue of repeat prescription] Onset: 12-08-2024 12-08-2024 Episodic Anxiety disorders (20 sources) Anxiety; 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: [Anxiety disorder, unspecified] Onset: 07-17-2009 10-24-2019 Chronic Bacterial infection; unspecified site (1 source) Personal history of Methicillin resistant Staphylococcus aureus infection; 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: [PERS HX METHICILLIN RSIST STAPH INF] Onset: 02-17-2023 Episodic Chronic obstructive pulmonary disease and bronchiectasis (20 sources) Chronic obstructive lung disease; 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: [Chronic obstructive pulmonary disease, unspecified] Onset: 10-28-2017 Resolved: 08-28-2021 10-24-2019 Chronic Coagulation and hemorrhagic disorders (2 sources) Thrombocytopenia, unspecified; 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: [Thrombocytopenia, unspecified] Onset: 02-28-2024 Chronic Complication of device; implant or graft (20 sources) Infection AND/OR inflammatory reaction due to internal prosthetic device, implant AND/OR graft; 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: [Infection and inflammatory reaction due to other internal prosthetic devices, implants and grafts, initial encounter] Onset: 05-08-2014 05-08-2014 Episodic Congestive heart failure; nonhypertensive (1 source) Heart failure, unspecified; 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: [HEART FAILURE UNSPECIFIED] Onset: 02-17-2023 Chronic Diabetes mellitus with complications (20 sources) Type 2 diabetes mellitus; 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: [Type 2 diabetes mellitus with diabetic neuropathy, unspecified] Onset: 01-29-2018 01-29-2018 Chronic Diabetes mellitus without complication (20 sources) Type 2 diabetes mellitus without complications; 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: [Diabetes mellitus] Onset: 12-22-2022 Chronic Disorders of lipid metabolism (20 sources) Hyperlipidemia; 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: [Hyperlipidemia, unspecified] Onset: 07-17-2009 08-24-2012 Chronic Esophageal disorders (1 source) Gastro-esophageal reflux disease without esophagitis; 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: [GERD WITHOUT ESOPHAGITIS] Onset: 02-17-2023 Chronic Essential hypertension (20 sources) Hypertensive disorder; 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: [Essential (primary) hypertension] Onset: 07-17-2009 05-19-2011 Chronic Gout and other crystal arthropathies (20 sources) Gout; 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: [Gout, unspecified] Onset: 12-09-2023 08-24-2012 Chronic Hypertension with complications and secondary hypertension (1 source) Hypertensive heart disease with heart failure; 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: [HTN HEART DISEASE W/HEART FAIL] Onset: 02-17-2023 Chronic Menopausal disorders (1 source) Hormone replacement therapy; 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: [HORMONE REPLACEMENT THERAPY] Onset: 02-17-2023 Episodic Mood disorders (20 sources) Depressive disorder; 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: [Depressive disorder] Onset: 07-17-2009 10-24-2019 Chronic Mycoses (7 sources) Onychomycosis; 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: [Tinea unguium] 12-02-2023 Episodic Open wounds of extremities (20 sources) Amputated foot; 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: [Complete traumatic amputation of unspecified foot, level unspecified, initial encounter] Onset: 12-09-2023 12-09-2023 Chronic Osteoarthritis (20 sources) Arthritis of wrist; 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: [Primary osteoarthritis, unspecified wrist] Onset: 02-08-2007 Resolved: 10-24-2019 11-10-2012 Chronic Osteoporosis (2 sources) Localized osteoporosis [[place]]; 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: [Localized osteoporosis ([place])] Onset: 12-22-2024 Chronic Other aftercare (1 source) Aftercare following joint replacement surgery; 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: [Aftercare following joint replacement surgery] Onset: 12-29-2023 Chronic Other aftercare (1 source) Other bed bug exterminator (current) drug therapy; 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: [OTH TEACHER OF THE HEARING IMPAIRED CURRENT DRUG THERAPY] Onset: 02-17-2023 Episodic Other bone disease and musculoskeletal deformities (20 sources) History of amputation of right foot; 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: [Acquired absence of right foot] Onset: 01-29-2018 Resolved: 07-22-2024 09-02-2019 Chronic Other bone disease and musculoskeletal deformities (1 source) Acquired absence of other right toe(s); 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: [ACQUIRED ABSENCE OTHER RIGHT TOES] Onset: 02-17-2023 Episodic Other circulatory disease (1 source) H/O: hypertension 01-26-2016 Episodic Other connective tissue disease (1 source) Presence of left artificial knee joint; 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: [PRESENCE LEFT ARTIFICIAL KNEE JOINT] Onset: 02-17-2023 Chronic Other connective tissue disease (20 sources) History of total knee arthroplasty; 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: [Presence of right artificial knee joint] Onset: 06-25-2023 06-25-2023 Chronic Other connective tissue disease (20 sources) Artificial knee joint present; 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: [Presence of left artificial knee joint] Onset: 12-09-2023 12-09-2023 Chronic Other connective tissue disease (2 sources) Presence of unspecified artificial knee joint; 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: [Presence of unspecified artificial knee joint] Onset: 12-22-2024 Chronic Other connective tissue disease (2 sources) Presence of right artificial knee joint; 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: [Presence of right artificial knee joint] Onset: 12-22-2024 Chronic Other connective tissue disease (4 sources) Pain in left leg; 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: [PAIN IN LEFT LEG] Onset: 01-28-2023 Episodic Other connective tissue disease (7 sources) Pain of toe of left foot; 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: [Pain in left toe(s)] 12-02-2023 Episodic Other connective tissue disease (1 source) Other symptoms and signs involving the musculoskeletal system; 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: [Other musculoskeletal symptoms referable to limbs] 08-17-2024 Episodic Other ear and sense organ disorders (20 sources) Mixed conductive AND sensorineural hearing loss; 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: [Mixed conductive and sensorineural hearing loss, unilateral, right ear with restricted hearing on the contralateral side] Onset: 04-07-2018 04-07-2018 Chronic Other ear and sense organ disorders (20 sources) Bilateral hearing loss; 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: [Sensorineural hearing loss, unilateral, left ear, with restricted hearing on the contralateral side] Onset: 04-07-2018 04-07-2018 Chronic Other ear and sense organ disorders (1 source) Unspecified hearing loss, left ear; 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: [UNSPECIFIED HEARING LOSS LEFT EAR] Onset: 02-17-2023 Chronic Other ear and sense organ disorders (20 sources) Hearing loss; 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: [Unspecified hearing loss, unspecified ear] Onset: 08-05-2011 12-09-2023 Chronic Other ear and sense organ disorders (1 source) Otalgia, right ear; 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: [Otalgia, unspecified] Episodic Other ear and sense organ disorders (2 sources) Impacted cerumen in left ear; 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: [Impacted cerumen, left ear] Episodic Other infections; including parasitic (1 source) H/O: infectious disease 03-27-2023 Episodic Comment on above: R toe Other nervous system disorders (20 sources) Carpal tunnel syndrome; 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: [Carpal tunnel syndrome, unspecified upper limb] Onset: 10-09-2014 10-09-2014 Chronic Other nervous system disorders (1 source) Other chronic pain; 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: [OTHER CHRONIC PAIN] Onset: 02-17-2023 Chronic Other nervous system disorders (1 source) Difficulty walking; 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: [Difficulty in walking, not elsewhere classified] 08-17-2024 Chronic Other non-traumatic joint disorders (2 sources) Effusion, right knee; 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: [Effusion, right knee] Onset: 06-13-2024 Episodic Other non-traumatic joint disorders (2 sources) Effusion, left knee; 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: [Effusion, left knee] Onset: 06-13-2024 Episodic Other non-traumatic joint disorders (20 sources) Pain in unspecified knee; 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: [Pain in joint, lower leg] Onset: 01-19-2024 01-19-2024 Episodic Other non-traumatic joint disorders (20 sources) Pain in right shoulder; 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: [Pain in joint, shoulder region] Onset: 05-23-2024 05-23-2024 Episodic Other nutritional; endocrine; and metabolic disorders (20 sources) Obesity; 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: [Obesity, unspecified] Onset: 04-16-2018 10-24-2019 Chronic Other nutritional; endocrine; and metabolic disorders (1 source) Severe obesity; 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: [Morbid obesity] Chronic Other screening for suspected conditions (not mental disorders or infectious disease) (1 source) Imaging of thorax abnormal; 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: [Abnormal findings on diagnostic imaging of other specified body structures] Chronic Other skin disorders (2 sources) Localized swelling, mass and lump, left lower limb; 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: [Localized swelling, mass and lump, left lower limb] Onset: 12-22-2024 Episodic Other upper respiratory infections (15 sources) Chronic sinusitis; 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: [Other chronic sinusitis] [...] 02-17-2023 Episodic Residual codes; unclassified (2 sources) Pain; 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: [Pain, unspecified] 12-30-2024 Episodic Screening and history of mental health and substance abuse codes (2 sources) Personal history of nicotine dependence; 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: [Ex-smoker] Onset: 02-17-2023 Episodic Comment on above: quit 40 years ago; Spondylosis; intervertebral disc disorders; other back problems (20 sources) Other intervertebral disc degeneration, lumbar region; 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: [Lumbar spondylosis] Onset: 02-27-2021 12-09-2023 Chronic Thyroid disorders (20 sources) Hypothyroidism; 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: [Hypothyroidism, unspecified] Onset: 02-17-2023 03-27-2023 Chronic Unclassified (1 source) LOW BACK PAIN, UNSPECIFIED; 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: [LOW BACK PAIN, UNSPECIFIED] Onset: 02-02-2023 Unclassified (1 source) Pain in left knee; 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: [Pain in left knee] Onset: 11-04-2023 Unclassified (10 sources) Drug therapy finding; 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: [DVT prophylaxis] Onset: 12-01-2012 Unclassified (2 sources) Knee pain, unspecified chronicity, unspecified laterality 08-16-2024 Past or Other Problems Problem Classification Problem Date Documented Date Episodic/Chronic Deficiency and other anemia (20 sources) Anemia; 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: [Anemia, unspecified] Onset: 08-02-2024 08-02-2024 Episodic E Codes: Fall (20 sources) Fall; 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: [Unspecified fall, initial encounter] Onset: 01-06-2024 01-06-2024 Episodic Fluid and electrolyte disorders (4 sources) Hypo-osmolality and hyponatremia; 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: [HYPO-OSMOLALITY AND HYPONATREMIA] Onset: 08-14-2022 Episodic Immunizations and screening for infectious disease (20 sources) Methicillin resistant staphylococcus aureus carrier; 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: [Carrier or suspected carrier of Methicillin resistant Staphylococcus aureus] Onset: 09-08-2024 Episodic Infective arthritis and osteomyelitis (except that caused by tuberculosis or sexually transmitted disease) (20 sources) Knee pyogenic arthritis; 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: [Pyogenic arthritis, unspecified] Onset: 02-23-2012 Resolved: 10-26-2023 10-26-2023 Episodic Mood disorders (20 sources) Mood disorders Onset: 05-23-2024 05-23-2024 Other aftercare (5 sources) Drug therapy finding; 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: [Other residential (current) drug therapy] Onset: 12-01-2012 Episodic Other connective tissue disease (20 sources) Metatarsalgia; 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: [Metatarsalgia, unspecified foot] Onset: 01-23-2014 01-23-2014 Episodic Other connective tissue disease (4 sources) Other specified soft tissue disorders; 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: [OTHER SPEC SOFT TISSUE DISORDERS] Onset: 04-28-2022 Episodic Other connective tissue disease (10 sources) Synovial cyst of left popliteal space; 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: [Synovial cyst of popliteal space [Sutton], left knee] Onset: 11-08-2023 11-08-2023 Episodic Other connective tissue disease (10 sources) Plantar fascial fibromatosis; 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: [Plantar fascial fibromatosis] Onset: 12-11-2006 Resolved: 06-22-2018 06-22-2018 Episodic Other connective tissue disease (20 sources) Recurrent falls ; 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: [Repeated falls] Onset: 08-02-2024 08-02-2024 Episodic Other ear and sense organ disorders (20 sources) Clicking tinnitus; 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: [Tinnitus, unspecified ear] Onset: 07-10-2021 Episodic Other ear and sense organ disorders (20 sources) Tinnitus arising from tensor tympani; 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: [Tinnitus, left ear] Onset: 04-07-2018 04-07-2018 Episodic Other ear and sense organ disorders (20 sources) Tinnitus of right ear; 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: [Tinnitus, right ear] Onset: 04-07-2018 04-07-2018 Episodic Other infections; including parasitic (20 sources) Personal history of other infectious and parasitic diseases; 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: [Personal history of other infectious and parasitic diseases] Onset: 12-01-2012 12-09-2023 Episodic Other injuries and conditions due to external causes (10 sources) Local infection of wound; 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: [Other injury of unspecified body region, initial encounter] Onset: 02-13-2012 Resolved: 10-24-2019 10-24-2019 Episodic Other injuries and conditions due to external causes (20 sources) Injury of left knee; 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: [Unspecified injury of left lower leg, initial encounter] Onset: 01-06-2024 01-06-2024 Episodic Other lower respiratory disease (20 sources) Nodule of lung; 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: [Solitary pulmonary nodule] Onset: 12-01-2012 12-09-2023 Episodic Other lower respiratory disease (4 sources) Respiratory disorder, unspecified; 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: [RESPIRATORY DISORDER UNSPECIFIED] Onset: 10-13-2022 Episodic Other nervous system disorders (19 sources) Postoperative pain ; 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: [Other acute postprocedural pain] Onset: 07-12-2021 07-12-2021 Episodic Other nervous system disorders (20 sources) Antalgic gait; 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: [Other abnormalities of gait and mobility] Onset: 03-25-2023 03-25-2023 Episodic Other non-traumatic joint disorders (20 sources) Pain of left wrist; 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: [Pain in left wrist] Onset: 10-09-2014 10-09-2014 Episodic Other non-traumatic joint disorders (8 sources) Pain of joint of right lower leg; 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: [Pain in right knee] Onset: 01-29-2018 01-29-2018 Episodic Other non-traumatic joint disorders (20 sources) Pain in right knee; 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: [Pain in joint, lower leg] Onset: 02-15-2023 Episodic Other non-traumatic joint disorders (20 sources) Pain in left knee; 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: [Pain in joint, lower leg] Onset: 09-03-2006 Episodic Other non-traumatic joint disorders (12 sources) Pain of right lower leg; 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: [Pain in right knee] Onset: 01-29-2018 01-29-2018 Episodic Other non-traumatic joint disorders (10 sources) Swollen knee region; 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: [Effusion, unspecified knee] Onset: 11-06-2023 11-08-2023 Episodic Other screening for suspected conditions (not mental disorders or infectious disease) (20 sources) Other specified abnormal findings of blood chemistry; 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: [Other abnormal blood chemistry] Onset: 12-01-2012 Episodic Other skin disorders (2 sources) Asteatosis cutis; 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: [Xerosis cutis] 06-13-2024 Episodic Other upper respiratory infections (20 sources) Acute frontal sinusitis; 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: [Acute recurrent frontal sinusitis] Onset: 10-31-2022 Episodic Pneumonia (except that caused by tuberculosis or sexually transmitted disease) (20 sources) Pneumonia; 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: [Pneumonia, unspecified organism] Onset: 12-01-2012 11-08-2023 Episodic Residual codes; unclassified (5 sources) Patient encounter status; 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: [Encounter for prophylactic measures, unspecified] Onset: 12-01-2012 Episodic Skin and subcutaneous tissue infections (20 sources) Abscess of knee; 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: [Cutaneous abscess of left lower limb] Onset: 07-12-2012 Resolved: 12-01-2012 11-08-2023 Episodic Spondylosis; intervertebral disc disorders; other back problems (20 sources) Chronic back pain ; 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: [Dorsalgia, unspecified] Onset: 10-28-2017 10-24-2019 Episodic Sprains and strains (10 sources) Sprain of ankle; 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: [Sprain of unspecified ligament of unspecified ankle, initial encounter] Onset: 12-11-2006 Resolved: 10-24-2019 10-24-2019 Episodic Unclassified (20 sources) Onset: 01-27-2024 01-27-2024 Unclassified (2 sources) Acute pain of right shoulder 08-16-2024 Results Test Name Value Interpretation Reference Range Facility 36on 01-13-2025 36 Brenton from [facility] called and states they have an order for MRI for Lt knee and he has a LT knee Prosthesis and is wondering if Dr. Barnett would like to change this to a Ct instead. [facility] number is [phone] [facility] 36on 01-03-2025 36 [facility] called and states they need a creatnin order sent over for patients MRI that is on Thursday the . Provided fax [phone] [facility] 2912-22-2024 29 Addended by: FÁTIMA CHERRY on: 12/26/2024 12:52 PM Modules accepted: Orders [facility] Follow-Upon 12-22-2024 Follow-Up [id number] Joie Lu 1955 M Date Provider Department Center 12/22/2024 DERRICK CROWE MP ORTHO MPORTHO No family history on file Level of Service:59819 [place] OFFICE/OUTPATIENT ESTABLISHED HIGH MDM 40 MIN (GC) Reason for Visit and Comments: Pain [136] [facility] MLR HEMOGLOBIN A1Con 025 Glucose [Mass/Vol] 131 mg/dL [facility] chelseyjennifer HbA1c (Bld) [Mass fraction] 6.2 % 4.5 - 6.2 % [facility] Comment on above: ADA RECOMMENDED LIMI T 4.0 - 6.0 ADA THERAPEUTIC TARGET < 7.0 ACTION SUGGESTED > 7.0 [facility] 36on 12-01-2024 36 Patient called and states he received a call from fátima stating he needed to be seen today, and he had to cancel. Windows Laptop Technician placed him in slot for first available and stated I would put a note back to verify, and he could be rescheduled once this is done. Patient number is [phone] [facility] 36on 11-28-2024 36 Patient states the disc was already here since he seen Dr. Rosado and it was given to him along with the MRI report. He lives 2 hours away and wants to make sure he can be seen before coming all the back here. Is there any way to verify this? Please advise at [phone] [facility] JOIE LU JR ([id number]) 1955 M Date Time Provider Department 11/11/24 SYED RAMIREZ During your visit today, we recorded the following information about you: Syed Ramirez PA-C 11/11/2024 3:32 PM Signed I spoke with this patient today after reviewing his recent imaging. His left knee hinged component is failing. 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 He is less than 1 year out from a right knee explant for PJI at an outside facility. He reports he is no longer on antibiotics. We discussed him coming in to see Dr. Oquendo with repeat imaging in early January. Allergies As of Date: 11/11/2024 Noted Allergy Reaction MORPHINE 05/25/2014 2 - Rash 9 - Itching BEE STING 08/18/2018 7 - Swelling 10 - Anaphylaxis PENICILLINS 01/16/2015 9 - Itching Date Reviewed: 07/22/2024 Reviewed by: Praveena Shah OCCA - Fully Assessed Prescriptions as of 11/11/2024 - clonazePAM (KLONOPIN) 1 mg tablet Take 1 tablet by mouth three times a day as needed for up to 180 days. - albuterol HFA (PROVENTIL HFA, VENTOLIN HFA) 90 mcg/actuation inhaler Inhale 2 Puffs as instructed every 4 hours as needed. - cyclobenzaprine (FLEXERIL) 10 mg tablet Take 1 tablet by mouth three times a day. - doxycycline hyclate (VIBRAMYCIN) 100 mg capsule Take 100 mg by mouth two times a day. - hydrOXYzine HCl (ATARAX) 50 mg tablet Take 50 mg by mouth. - azelastine (ASTELIN, ASTEPRO) 0.1% nasal spray 1 spray in each nostril twice daily for 30 days - atorvastatin (LIPITOR) 10 mg tablet Take [...] 10 mg by mouth once daily. - vortioxetine (TRINTELLIX) 20 mg tablet Take by mouth. - tiotropium bromide (SPIRIVA RESPIMAT) 2.5 mcg/actuation inhaler Inhale as instructed. - fluticasone-vilanter ol (BREO ELLIPTA) 100-25 mcg/dose inhaler Inhale 1 [...] once daily. Problem List As Of Date 11/11/2024 Noted Resolved Acute pain of left knee [M25.562] 09/03/2006 Plantar fascial fibromatosis [M72.2] 12/11/2006 06/22/2018 Sprain of ankle, unspecified site [S93.409A] 12/11/2006 10/24/2019 Osteoarthrosis, unspecified whether generalized*02/09/20 07 10/24/2019 OA (OSTEOARTHRITIS) LOCALIZED, PRIMARY( Lower L*07/20/2007 10/24/2019 Wound infection [T14.8XXA, L08.9] 02/13/2012 10/24/2019 Septic arthritis of knee, left (HCC) [M00.9] 02/23/2012 Abscess of back [L02.212] 07/12/2012 12/01/2012 Type 2 diabetes mellitus without complication, * Hypothyroidism [E03.9] Hyperlipidemia [E78.5] HTN (hypertension) [I10] Gout [M10.9] 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] 11/10/2012 Pneumonia [J18.9] 12/01/2012 Elevated LFTs [R79.89] 12/01/2012 Pulmonary nodule [R91.1] 12/01/2012 H/O Clostridium difficile infection [Z86.19] 12/01/2012 DVT prophylaxis [TQM9510] 12/01/2012 Metatarsalgia [M77.40] 01/23/2014 Infection and inflammatory reaction due to unsp*05/08/2014 Left wrist pain [M25.532] 10/09/2014 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] 10/09/2014 Carpal tunnel syndrome [G56.00] 10/09/2014 Diabetic neuropathy, painful (HCC) [E11.40] 01/29/2018 Arthralgia of right lower leg [M25.561] 01/29/2018 History of transmetatarsal amputation of right *01/29/2018 07/22/2024 Mixed conductive and sensorineural hearing loss*04/07/2018 Sensorineural hearing loss (SNHL) of left ear w*04/07/2018 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 [facility] CNPNon 11-10-2024 CNPN Telephone (OTOLMN) JOIE LU JR ([id number]) 1955 M Date Time Provider Department 11/10/24 PARTHA JACKSON OTOLMN During your visit today, we recorded the following information about you: Mariluz Orellana 11/10/2024 10:17 AM Signed Pt coming from far away and states he really doesn't have gas money for 2 trips. Asking if Partha can see him sometime on 11/24. I know I have to ask about the office use only slots Shirley Snell RN 11/10/2024 10:25 AM Signed Patient has appointment on 11/[address] Rasmussen at 3pm and is wondering if he can see Partha that day instead of on 11/15? Shirley Snell, RN 11/10/2024 11:46 AM Signed Tried calling patient, no answer, LM relaying that Partha is in [place] that day and to call back with what he would like to to. Isiah Warner 11/10/2024 12:41 PM Signed Person Calling: Juan José Reason for Call: pt wants to reschedule visit with Partha to 12/12 or 12/13 but wants to know if she can refill his meds until then Pt Phone #: [phone] Pharmacy Name and # : Pt last seen: 06/28/2024 Partha Schneider PA-C 11/10/2024 5:31 PM Signed Medication sent. Patient to schedule for when he can come in. 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 - albuterol HFA (PROVENTIL HFA, VENTOLIN HFA) 90 mcg/actuation inhaler Inhale 2 Puffs as instructed every 4 hours as needed. - cyclobenzaprine (FLEXERIL) 10 mg tablet Take 1 tablet by mouth three times a day. - doxycycline hyclate (VIBRAMYCIN) 100 mg capsule Take 100 mg by mouth two times a day. - hydrOXYzine HCl (ATARAX) 50 mg tablet Take 50 mg by mouth. - azelastine (ASTELIN, ASTEPRO) 0.1% nasal spray 1 spray in each nostril twice daily for 30 days - atorvastatin (LIPITOR) 10 mg tablet Take [...] 10 mg by mouth once daily. - vortioxetine (TRINTELLIX) 20 mg tablet Take by mouth. - tiotropium bromide (SPIRIVA RESPIMAT) 2.5 mcg/actuation inhaler Inhale as instructed. - fluticasone-vilanter ol (BREO ELLIPTA) 100-25 mcg/dose inhaler Inhale 1 [...] once daily. Problem List As Of Date 11/10/2024 Noted Resolved Acute pain of left knee [M25.562] 09/03/2006 Plantar fascial fibromatosis [M72.2] 12/11/2006 06/22/2018 Sprain of ankle, unspecified site [S93.409A] 12/11/2006 10/24/2019 Osteoarthrosis, unspecified whether generalized*02/09/20 07 10/24/2019 OA (OSTEOARTHRITIS) LOCALIZED, PRIMARY( Lower L*07/20/2007 10/24/2019 Wound infection [T14.8XXA, L08.9] 02/13/2012 10/24/2019 Septic arthritis of knee, left (HCC) [M00.9] 02/23/2012 Abscess of back [L02.212] 07/12/2012 12/01/2012 Type 2 diabetes mellitus without complication, * Hypothyroidism [E03.9] Hyperlipidemia [E78.5] HTN (hypertension) [I10] Gout [M10.9] 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] 11/10/2012 Pneumonia [J18.9] 12/01/2012 Elevated LFTs [R79.89] 12/01/2012 Pulmonary nodule [R91.1] 12/01/2012 H/O Clostridium difficile infection [Z86.19] 12/01/2012 DVT prophylaxis [QQI1829] 12/01/2012 Metatarsalgia [M77.40] 01/23/2014 Infection and inflammatory reaction due to unsp*05/08/2014 Left wrist pain [M25.532] 10/09/2014 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] 10/09/2014 Carpal tunnel syndro (more content not included)... [facility] 36on 10-13-2024 36 Spoke with patient. Relayed message. Patient is going to call his surgeon in [place]. NO further action is needed. [facility] 36 LVM TO CALL BACK TO DISCUSS [facility] 36on 10-10-2024 [address] rosado [facility] 36 Patient got his MRI done and would like to be seen sooner due to the Mass getting bigger after reading your note I didn't know if you want to book him a appt to see you or with someone else. [facility] 36on 10-07-2024 36 Patient would like to be squeezed in sooner due to the mass on his leg growing in size, Windows Laptop Technician doesn't have ability to double book at this time. Please contact patient at [phone] [facility] Telephoneon 10-07-2024 Telephone [id number] Joie Lu 1955 M Date Provider Department Center 10/07/2024 [id number] DIAZ MP ORTHO MPORTHO No family history on file Reason for Visit and Comments: Appointment [375] [facility] 36on 10-05-2024 36 Neris Low (PCP) nurse called and would like confirmation if we can give results to the patient about his xray. Windows Laptop Technician told her we could not give results over the phone but I would put a message back to let you know he has been calling their office everyday to ask them for these results, provider doesn't feel comfortable sharing results with him. He is scheduled for 11/21/[address] Rosado [facility] Telephoneon 10-05-2024 Telephone [id number] Joie Lu F 1955 Date Provider Department Center 10/05/2024 [id number]-GMQISDMAURY DIAZ MP MPORTHO No family history on file Reason for Visit and Comments: Results [95] [facility] MR KNEE LEFT WO CONTRASTon 1 12-01-2023 MR KNEE LEFT WO CONTRAST Knee prosthesis revision with chronic slowly growing soft tissue mass medial aspect of the left knee. 2 prior joint infections and possibly chronic osteomyelitis and septic loosening of the prosthesis Comparison September 12 x-rays of the left knee PROCEDURE: Multiplanar multisequence images performed the left knee without IV contrast IMPRESSION: Findings/impression: The knee is largely obscured by hardware artifact. There is a multiseptated mixed signal process part fluid and part solid likely palpable at the medial joint line. This measures approximately 12.3 cm in maximum length by approximately 6.2 cm medial to lateral and 8.3 cm anterior posterior. 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 Process is nonaggressive and well-defined. I cannot evaluate its extent within the knee due to the hardware artifact joint particle disease Electronically signed: William Jung. [facility] Office Visiton 09-12-2024 Follow-up visit [id number] Joie Lu 1955 M Date Provider Department Center 09/12/2024 CHUN ROLAND MP ORTHO MPORTHO No family history on file Level of Service:50852 [place] OFFICE/OUTPATIENT NEW MODERATE MDM 45 MINUTES (GC) Reason for Visit and Comments: New Patient [632] New Patient [632] - Second opinion Large Mass on the inside of knee [facility] OCCULT BLOOD*on 08-20-2024 TB OCCULT BLOOD Negative [facility] ALL CBC WITH AUTO DIFFon BASOPHILS ABSOLUTE AUTO 0.1 [facility] Basophils/100 WBC (Bld) 1 % 0.2 - 2.0 % [facility] Eosinophils/100 WBC (Bld) 3.3 % 0.9 - 7.0 % [facility] Erythrocyte distribution width (RBC) [Ratio] 13.5 % 11.0 - 15.0 % [facility] Hematocrit (Bld) [Volume fraction] 39.7 % Low 42.0 - 54.0 % [facility] Hemoglobin (Bld) [Mass/Vol] 13.4 g/dL Low 14.0 - 18.0 g/dL [facility] IMMATURE GRANULOCYTES ABS AUTO 0.06 High [facility] Immature granulocytes/100 WBC (Bld) 0.6 % High 0.0 - 0.5 % [facility] Interpretation and review of laboratory results Abnormal [facility] LYMPHOCYTES ABSOLUTE AUTO 1.9 [facility] Lymphocytes/100 WBC (Bld) 18.7 % Low 20.5 - 60.0 % [facility] MCH (RBC) [Entitic mass] 30 pg 25.9 - 34.0 pg [facility] MCHC (RBC) [Mass/Vol] 33.8 g/dL 29.9 - 35.2 g/dL [facility] MCV (RBC) [Entitic vol] 88.8 fL 80.0 - 94.0 fL [facility] MONOCYTES ABSOLUTE AUTO 0.7 [facility] Monocytes/100 WBC (Bld) 7.1 % 1.7 - 12.0 % [facility] NEUTROPHILS ABSOLUTE AUTO 7.1 High [facility] Neutrophils/100 WBC (Bld) 69.3 % 43.0 - 75.0 % [facility] Platelet mean volume (Bld) [Entitic vol] 8.5 fL Low 9.5 - 13.5 fL [facility] EO # 0.3 [facility] PLT 237 [facility] RBC 4.47 Low [facility] WBC 10.2 [facility] 36on 07-25-2024 36 Patient called to schedule a new patient appointment with our office. 09/12/24 Patient wants to be seen for: Bilaterial Knee Patient had X ray done at [facility] 07/22/24 Patient had Bilaterial knee replacement right knee antibotic spacer done on Right- 2022 @ [facility] Left Knee in 2018 @ [facility] by [facility] Dr. Cassy Escamilla and [facility] in [place] Patient saw (see above) for this issues. They were not referred to us from this provider. This appointment is a second opionion This appointment IS NOT related to a work related injury [facility] CNOVon 07-22-2024 CNOV Office Visit (ORTHMN) LUJOIE Judie SILVA ([id number]) 1955 M Date Time Provider Department 07/22/24 10:00 AM CARMEN WILLIAM ORTHMN During your visit today, we recorded the following information about you: Weight Height 146.5 kg 1.93 m Carmen William MD 07/22/2024 11:48 AM Signed SERVICE DATE: July 13, 2024 PCP: Regan Ortega MD Patient was self-referred. Subjective Patient ID: Juan José is a 69 year old male. Left knee, chronic pain. Hx of left knee replacement.2018 by Azra Bruce.The patient is a 69-year-old male, who had a history of chronic knee infection, prior surgery, including debridement and placement of a hinge knee component due to instability. He initially did quite well from this. However, he then began to have knee pain as well as instability. X- rays did reveal what appeared to be failure of the component. Some bracing done, there was no obvious breakage. This failed. Upon repeat x-ray several weeks later, there was no obvious of catastrophic failure with breakage of the metal components. He opted for revision total knee 06/05/2014 Fell on left knee, has wound with underlying sub cutaneous tissue exposed and due to hx of T2 DM, at high risk of infection and poor wound healing. Since he was seen by Dr. Escamilla's office in October he has had an episode of sepsis and required removal of the right knee with mobile spacer placed. He has been walking with use of cane or rolling walker. He notes some falling particular when getting off the toilet or getting out of a chair. He most recently fell on the left side with a deep abrasion over the anterior aspect of the left knee. He noted no history of fevers chills or sweats. He was referred to the [facility] for evaluation and consideration of further surgery. 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 Review of Systems ACTIVE PROBLEM LIST Acute Pain of Left Knee Septic arthritis of knee, left ([facility]) Type 2 Diabetes Mellitus Without Complication, Without Long-Term Current Use of Insulin ([facility]) Hypothyroidism Hyperlipidemia Htn (Hypertension) Gout Wrist Arthritis Pneumonia Elevated Lfts Pulmonary Nodule H/O Clostridium Difficile Infection Dvt Prophylaxis Metatarsalgia Infection and Inflammatory Reaction Due to Unspecified Device, Implant, and Graft Left Wrist Pain Arthritis of Left Wrist Carpal Tunnel Syndrome Diabetic Neuropathy, Painful ([facility]) Arthralgia of Right Lower Leg History of Transmetatarsal Amputation of Right Foot (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) Fracture Gout H/O Clostridium difficile infection 10/2012 History of cholecystectomy HTN (hypertension) Hyperlipidemia Hypothyroidism Osteomyelitis of knee region ([facility]) left, s/p knee replacement Pain chronic PAST [...] of Onset other (suicide) Father Breast Cancer (more content not included)... [facility] XR KNEE 4V AP/PA/LAT/MERCH B ILon 07-22-2024 XR KNEE 4V AP/PA/LAT/MERCH HUONG * * *Final Report* * * DATE OF EXAM: Jul 22 2024 10:07AM AOX [id number] - XR KNEE 4V AP/PA/LAT/MERCH HUONG / PROCEDURE REASON: Pyogenic arthritis of left knee joint, due to unspecified organism (HCC) * * * * Physician Interpretation * * * * EXAMINATION: XR KNEE 4V AP/PA/LAT/MERCH HUONG HISTORY: HX of bilateral knee replacements. Pyogenic arthritis of left knee joint, due to unspecified organism (HCC) . TECHNIQUE: XR KNEE 4V AP/PA/LAT/MERCH HUONG Laterality: BILATERAL Number of different views (projections): 4 M: XB_1 COMPARISON: 11/11/2023 RESULT: Left total knee arthroplasty in place appears intact and without loosening. Prominent soft tissue swelling at the medial left knee. Right knee arthroplasty in place with tibial spacer appears intact and without loosening. Soft tissue swelling around the right knee with small joint effusion. No acute fracture or dislocation. There are no bony erosions. IMPRESSION: Postoperative changes of the knees as described. Brake Rider: PSCB Transcribe Date/Time: Jul 22 2024 10:43A Dictated by : DERRICK SIMS MD This examination was interpreted and the report reviewed and electronically signed by: DERRICK SIMS MD on Jul 22 2024 10:45AM EST [id number] CN Normal [facility] XR Knee - bilateral 4 Viewso n 07-22-2024 IMPRESSION: Postoperative changes of the knees as described. Brake Rider: PSCB Transcribe Date/Time: Jul 22 2024 10:43A Dictated by : DERRICK SIMS MD This examination was interpreted and the report reviewed and electronically signed by: DERRICK SIMS MD on Jul 22 2024 10:45AM EST DIVISION OF RADIOLOGY * * *Final Report* * * DATE OF EXAM: Jul 22 2024 10:07AM AOX 5618 - XR KNEE 4V AP/PA/LAT/MERCH HUONG / PROCEDURE REASON: Pyogenic arthritis of left knee joint, due to unspecified organism (HCC) * * * * Physician Interpretation * * * * EXAMINATION: XR KNEE 4V AP/PA/LAT/MERCH HUONG HISTORY: HX of bilateral knee replacements. Pyogenic arthritis of left knee joint, due to unspecified organism (HCC) . TECHNIQUE: XR KNEE 4V AP/PA/LAT/MERCH HUONG Laterality: BILATERAL Number of different views (projections): 4 M: XB_1 COMPARISON: 11/11/2023 RESULT: Left total knee arthroplasty in place appears intact and without loosening. Prominent soft tissue swelling at the medial left knee. Right knee arthroplasty in place with tibial spacer appears intact and without loosening. Soft tissue swelling around the right knee with small joint effusion. No acute fracture or dislocation. There are no bony erosions. DIVISION OF RADIOLOGY Provider, [facility] - 07/22/2024 * * *Final Report* * * DATE OF EXAM: Jul 22 2024 10:07AM AOX 5618 - XR KNEE 4V AP/PA/LAT/MERCH HUONG / PROCEDURE REASON: Pyogenic arthritis of left knee joint, due to unspecified organism (HCC) * * * * Physician Interpretation * * * * EXAMINATION: XR KNEE 4V AP/PA/LAT/MERCH HUONG HISTORY: HX of bilateral knee replacements. Pyogenic arthritis of left knee joint, due to unspecified organism (HCC) . TECHNIQUE: XR KNEE 4V AP/PA/LAT/MERCH HUONG Laterality: BILATERAL Number of different views (projections): 4 M: XB_1 COMPARISON: 11/11/2023 RESULT: Left total knee arthroplasty in place appears intact and without loosening. Prominent soft tissue swelling at the medial left knee. Right knee arthroplasty in place with tibial spacer appears intact and without loosening. Soft tissue swelling around the right knee with small joint effusion. No acute fracture or dislocation. There are no bony erosions. IMPRESSION IMPRESSION: Postoperative changes of the knees as described. Brake Rider: PSCB Transcribe Date/Time: Jul 22 2024 10:43A Dictated by : DERRICK SIMS MD This examination was interpreted and the report reviewed and electronically signed by: DERRICK SIMS MD on Jul 22 2024 10:45AM EST [facility] Radiology Study observation (narrative) [facility] XR Knee - bilateral 4 ViewsO rdered By: [facility] Provider on 07-22-2024 [facility] ALL CBC WITH AUTO DIFFon BASOPHILS ABSOLUTE AUTO 0.1 [facility] Basophils/100 WBC (Bld) 1.0 % 0.2 - 2.0 % [facility] Eosinophils/100 WBC (Bld) 5.5 % 0.9 - 7.0 % [facility] Erythrocyte distribution width (RBC) [Ratio] 12.4 % 11.0 - 15.0 % [facility] Hematocrit (Bld) [Volume fraction] 38.6 % Low 42.0 - 54.0 % [facility] ([facility] [Mass/Vol] 13.3 g/dL Low 14.0 - 18.0 g/dL [facility] IMMATURE GRANULOCYTES ABS AUTO 0.02 [facility] Immature granulocytes/100 WBC (Bld) 0.3 % 0.0 - 0.5 % [facility] Interpretation and review of laboratory results Abnormal [facility] LYMPHOCYTES ABSOLUTE AUTO 1.7 [facility] Lymphocytes/100 WBC (Bld) 23.8 % 20.5 - 60.0 % [facility] MCH (RBC) [Entitic mass] 29.6 pg 25.9 - 34.0 pg [facility] MCHC (RBC) [Mass/Vol] 34.5 g/dL 29.9 - 35.2 g/dL [facility] MCV (RBC) [Entitic vol] 86.0 fL 80.0 - 94.0 fL [facility] MONOCYTES ABSOLUTE AUTO 0.5 [facility] Monocytes/100 WBC (Bld) 7.5 % 1.7 - 12.0 % [facility] NEUTROPHILS ABSOLUTE AUTO 4.4 [facility] Neutrophils/100 WBC (Bld) 61.9 % 43.0 - 75.0 % [facility] Platelet mean volume (Bld) [Entitic vol] 9.2 fL Low 9.5 - 13.5 fL [facility] EO # 0.4 [facility] PLT 197 [facility] TB RBC 4.49 Low [facility] TB WBC 7.1 [facility] Hemoglobin A1Con 07-04-2024 Average glucose Estimated from glycated hemoglobin (Bld) [Mass/Vol] 186 mg/dL [facility] Comment on above: The ADA and AACC rec ommend providing the estimated average glucose result to permit better patient understanding of their HBA1c result. HbA1c (Bld) [Mass fraction] 8.1 % High 4.0 - 6.0 % [facility] Interpretation and review of laboratory results Abnormal [facility] Glucose [Mass/Vol] 186 mg/dL Normal [facility] Comment on above: Result Comment: The ADA and AACC recommend providing the estimated average glucose result to permit better patient understanding of their HBA1c result. Performed By: #### G LYHGB #### [facility] [address] [place], [place] [id number] Treer: Glenn Noyola MD HbA1c (Bld) [Mass fraction] 8.1 % High 4.0-6.0 [facility] Comment on above: Performed By: #### G LYHGB #### [facility] [address] [place], [place] [id number] Treer: Glenn Noyola MD MHPT HEMOGLOBIN A1Con 2023 Glucose [Mass/Vol] 186 mg/dL [facility] Comment on above: The ADA and AACC rec ommend providing the estimated average glucose result to permit better patient understanding of their HBA1c result. HbA1c (Bld) [Mass fraction] 8.1 % High 4.0 - 6.0 % [facility] Interpretation and review of laboratory results Abnormal [facility] Original Ordering Provider: JUSTIN [facility] Cult,Fluidon 06-18-2024 Cult,Fluid Specimen Description .KNEE RIGHT Special Requests RT KNEE SEROSANGUINEOUS FLUID Direct Exam NO NEUTROPHILS SEEN NO BACTERIA SEEN Gram stain made from cytocentrifuged specimen. Organisms and cells will be concentrated. Culture NO GROWTH 5 DAYS Report Status FINAL 06/18/2024 Normal [facility] Comment on above: Performed By: #### F LCU #### [id number] [place], [place] [id number] Treer: Glenn Noyola MD [address] [place] [address] Treer: Oliver Cabrera MD Cult,Fluid Specimen Description .KNEE LEFT Direct Exam MODERATE NEUTROPHILS NO ORGANISMS SEEN Gram stain made from cytocentrifuged specimen. Organisms and cells will be concentrated. Culture NO GROWTH 5 DAYS Report Status FINAL 06/18/2024 [facility] Comment on above: Performed By: #### F LCU #### [address] [place] [address] Treer: Glenn Noyola MD [address] [place] [address] Treer: Oliver Cabrera MD C-Reactive Proteinon 024 CRP [Mass/Vol] mg/L Normal 0.0-5.0 [facility] Comment on above: Performed By: #### S ED, CRP #### [address] [place] [address] Treer: Oliver Cabrera MD Fluid Cell Count and Diffon 06-13-2024 Basophils Normal 0 [facility] Comment on above: Performed By: #### F LDCT #### [facility] [address] [place], [place] [phone] Treer: Oliver Cabrera MD Eosinophils Normal 0 [facility] Comment on above: Performed By: #### F LDCT #### [facility] [address] [place], [place] [phone] Treer: lOiver Cabrera MD Lymphocytes/100 WBC (Bld) 78 % High 0 [facility] Comment on above: Performed By: #### F LDCT #### [facility] [address] [place], [place] [phone] Treer: Oliver Cabrera MD [place]/Macrophage Normal 0 [facility] Comment on above: Performed By: #### F LDCT #### [facility] [address] [place], [place] [phone] Treer: Oliver Cabrera MD Neutrophils/100 WBC (Bld) 22 % High 0 [facility] Comment on above: Performed By: #### F LDCT #### [facility] [address] [place], [place] [phone] Treer: Oliver Cabrera MD Other Cells Normal [address] [place] [address] Comment on above: Performed By: #### F LDCT #### [facility] [address] [place], [place] [phone] Treer: Oliver Cabrera MD Basophils Normal 0 [facility] Comment on above: Performed By: #### F LDCT #### [facility] [address] [place], [place] [phone] Treer: Oliver Cabrera MD Eosinophils Normal 0 [facility] Comment on above: Performed By: #### F LDCT #### [facility] [address] [place] [address] Treer: Oliver Cabrera MD Lymphocytes/100 WBC (Bld) 56 % High 0 [facility] Comment on above: Performed By: #### F LDCT #### [facility] [address] [place], [facility] Treer: Oliver Cabrera MD [place]/Macrophage Normal 0 [facility] Comment on above: Performed By: #### F LDCT #### [facility] [address] [place], [facility] Treer: Oliver Cabrera MD Neutrophils/100 WBC (Bld) 44 % High 0 [facility] Comment on above: Performed By: #### F LDCT #### [facility] [address] [place] [id number] Treer: Oliver Cabrera MD Other Cells Normal [address] [place] [address] Comment on above: Performed By: #### F LDCT #### [facility] [address] [place] [phone] Treer: Oliver Cabrera MD Appearance (U) Cloudy Normal [facility] Comment on above: Performed By: #### F LDCT #### [facility] [address] [place] [phone] Treer: Oliver Cabrera MD Color (U) Red Normal [facility] Comment on above: Performed By: #### F LDCT #### [facility] [address] [place], [place] [address] Treer: Oliver Cabrera MD RBC (Bld) [#/Vol] 0.016 10*6/uL Normal [facility] Comment on above: Performed By: #### F LDCT #### [facility] [address] [place] [address] Treer: Oliver Cabrera MD WBC (Bld) [#/Vol] 0.554 10*3/uL Normal [facility] Comment on above: Performed By: #### F LDCT #### [facility] [address] [place], [place] [phone] Treer: Oliver Cabrera MD Appearance (U) Cloudy Normal [facility] Comment on above: Performed By: #### F LDCT #### [facility] [address] [place], [place] [phone] Treer: Oliver Cabrera MD Color (U) Red Normal [facility] Comment on above: Performed By: #### F LDCT #### [facility] [address] [place], [place] [phone] Treer: Oliver Cabrera MD RBC (Bld) [#/Vol] 0.054 10*6/uL [facility] Comment on above: Performed By: #### F LDCT #### [address] [place], [place] [address] Treer: Oliver Cabrera MD WBC (Bld) [#/Vol] 0.287 10*3/uL [facility] Comment on above: Performed By: #### F LDCT #### [address] [place], [place] [phone] Treer: Oliver Cabrera MD Type of Specimen SEROSANGUINEOS FLUID Normal [facility] Comment on above: Result Comment: LEFT KNEE Performed By: #### F LDCT #### [address] [place], [place] [phone] Treer: Oliver Cabrera MD Type of Specimen SEROSANGUINEOUS Normal [facility] Comment on above: Result Comment: RT K NEE Performed By: #### F LDCT #### [facility] [address] [place] [address] [place], [place] [phone] Treer: Oliver Cabrera MD MHPT SEDIMENTATION RATEon MHPT SEDIMENTATION RATE 2 [facility] Original Ordering Provider: [facility] Sed[facility] Rateon 024 Sedimentation Rate 2 mm/Hr Normal 0-20 [facility] Comment on above: Performed By: #### S ED, CRP #### [facility] [address] [place] [address] Treer: Oliver Cabrera MD CNOVon 05-27-2024 CNOV Office Visit (OTOLMN) JOIE LU JR ([id number]) 1955 M Date Time Provider Department 05/27/24 3:30 PM PARTHA JACKSON OTOLMN During your visit today, we recorded the following information about you: Celia Nascimento RN 05/27/2024 3:42 PM Signed Tobacco Use: .5 packs/day, for 1 years. Quit 02/15/1982. Types: Cigarettes Was smoking cessation packet given? N/A - Patient is a non-smoker or quit >1 year ago. Was a referral initiated?N/A Patient is a non-smoker GEE Oviedo Caitlin, PA-C 05/27/2024 4:00 PM Signed History of Present Illness Mr. 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 The following information above was copied, reviewed and is still up to date. Last seen 01/27/2023. Since last seen, He has been in and out of a nursing facility given issues with his knees. He currently has an antibiotic spacer. He developed sepsis after a knee replacement. He has not any Klonopin for the tinnitus for about 3 days. He is starting to shake with not being on it. His PCP left and the PASTER OPERATOR refused to write it for him. The tinnitus has started to flare in the left ear since he was not able to take his medication. There are times he will have fluid come out of the ears, but this is usually when he will lay down after a shower. When he blows his nose, the left side opens. Otalgia: denies Hearing Loss: Stable. Dizziness/Imbalance: denies Facial Numbness, Weakness or Tingling: denies ALLERGIES Allergen Reactions Morphine Rash, Itching Bee Sting Swelling, Anaphylaxis Penicillins Itching Current Outpatient Medications on File Prior to Visit Medication Sig albuterol HFA (PROVENTIL HFA, VENTOLIN HFA) 90 mcg/actuation inhaler Inhale 2 Puffs as instructed every 4 hours as needed. cyclobenzaprine (FLEXERIL) 10 mg tablet Take 1 tablet by mouth three times a day. doxycycline hyclate (VIBRAMYCIN) 100 mg capsule Take 100 mg by mouth two times a day. hydrOXYzine HCl (ATARAX) 50 mg tablet Take 50 mg by mouth. azelastine (ASTELIN, ASTEPRO) 0.1% nasal spray 1 [...] RESPIMAT) 2.5 mcg/actuation inhaler Inhale as instructed. fluticasone-vilanter ol (BREO ELLIPTA) 100-25 mcg/dose inhaler Inhale 1 [...] mouth three times daily for 180 days. No current facility-administere d medications on file prior to visit. Objective: There were no vitals taken for this visit. Appearance: Non-syndromic, cooperative and calm Communication: Voice has adequate volume; there is no stridor Head/Face: head and facial contours are symmetric Facial nerve 1/6 bilateral Skin: no skin lesions or scarring on face Ears: AD External auditory canal is patent. TM is intact but thickened posteriorly. No infection or effusion noted. External auditory canal is patent. TM is clear and intact. 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 Follow up in 6 months. Orders: Office Visit on 05/27/24 clonazePAM (KLONOPIN) 1 mg tablet Procedures: None. Partha Jackson PA-C May 27, 2024 3:59 PM Medical Decision Making: Problems: Low: Stable chronic illness Risk: Moderate: Drug management Medical Decision Making Level: 3 - L (more content not included)... Normal [facility] 05-25-2024 [facility] Telephone (HNQ) JOIE LU JR ([id number]) 1955 M Date Time Provider Department 05/25/24 PARTHA JACKSON HNQ During your visit today, we recorded the following information about you: Nichol Whittington 05/25/2024 9:55 AM Signed Person Calling: Patient Reason for Call: Patient is asking should he be worried about seizures since he cannot get his clonazepam until after his appt on 06/28. Please call Pt Phone #: [phone] Pharmacy Name and # : Pt last seen: 05/24/2024 Nichol Yancy Rodriguez RN 05/25/2024 10:11 AM Signed Attempted to contact pt, no personal vm greeting. Asked to contact office Pt has not been prescribed Klonopin since 2022. Is another provider prescribing? Celia Nascimento RN 05/27/2024 9:12 AM Signed Spoke with patient who explained that he had originally been prescribed klonapin by Dr Ball for popping sounds/sensation in his left ear. Partha Jackson had prescribed it for him last. In the recent past, he has had 3 surgeries on his knee and has been in and out of nursing facilities rehabilitating. His stress level is very high and he has been having difficulty sleeping and is now experiencing issues with shaking. He has been out of klonapin for 3 days now. He is currently scheduled to see Partha 06/28 and was unable to get a sooner appointment. Last seen by Partha 01/27/23. Asking for her advisement. GEE Oviedo Caitlin, PA-C 05/27/2024 9:44 AM Signed I cannot legally prescribe without an appointment within the last 6 months. It has been over one year. Please see if patient can be seen today as I have people that are not able to come. I can see him at 1:25, 1:50 or 3:30. If he cannot make these appointments, lets get him in [place]. Please note that if he sees his PCP or another provider routinely, he should reach out to see if they are willing to prescribed them until his appointment. Partha Jackson PA-C May 27, 2024 9:43 AM Allergies As of Date: 05/25/2024 Noted Allergy Reaction MORPHINE 05/25/2014 2 - Rash 9 - Itching BEE STING 08/18/2018 7 - Swelling 10 - Anaphylaxis PENICILLINS 01/16/2015 9 - Itching Date Reviewed: 11/11/2023 Reviewed by: Christina Matos OCCA - Fully Assessed Reason for Visit: Patient Question [1477] Prescriptions as of 05/27/2024 - albuterol HFA (PROVENTIL HFA, VENTOLIN HFA) 90 mcg/actuation inhaler Inhale 2 Puffs as instructed every 4 hours as needed. - cyclobenzaprine (FLEXERIL) 10 mg tablet Take 1 tablet by mouth three times a day. - doxycycline hyclate (VIBRAMYCIN) 100 mg capsule Take 100 mg by mouth two times a day. - hydrOXYzine HCl (ATARAX) 50 mg tablet Take 50 mg by mouth. - clonazePAM (KLONOPIN) 1 mg tablet Take 1 tablet by mouth three times daily for 180 days. - azelastine (ASTELIN, ASTEPRO) 0.1% nasal spray 1 spray in each nostril twice daily for 30 days - atorvastatin (LIPITOR) 10 mg tablet Take [...] 10 mg by mouth once daily. - vortioxetine (TRINTELLIX) 20 mg tablet Take by mouth. - tiotropium bromide (SPIRIVA RESPIMAT) 2.5 mcg/actuation inhaler Inhale as instructed. - fluticasone-vilanter ol (BREO ELLIPTA) 100-25 mcg/dose inhaler Inhale 1 [...] once daily. Problem List As Of Date 05/25/2024 Noted Resolved Acute pain of left knee [M25.562] 09/03/2006 Plantar fascial fibromatosis [M72.2] 12/11/2006 06/22/2018 Sprain of ankle, unspecified site [S93.409A] 12/11/2006 10/24/2019 Osteoarthrosis, unspecified whether generalized*02/09/20 07 10/24/2019 OA (OSTEOARTHRITIS) LOCALIZED, PRIMARY( Lower L*07/20/2007 10/24/2019 Wound infection [T14.8XXA, L08.9] 02/13/2012 10/24/2019 Septic arthritis of knee, left (HCC) [M00.9] 02/23/2012 Abscess of back [L02.212] 07/12/2012 12/01/2012 Type 2 diabetes mellitus without complication, * Hypothyroidism [E03.9] Hyperlipidemia [E78.5] HTN (hy (more content not included)... Normal [facility] Infectious Disease Office/Cl inic Noteon 05-05-2024 Infectious Disease Office/Clinic Note Normal [facility] Gastroenterology Office/Clin ic Noteon 04-14-2024 Gastroenterology Office/Clinic Note Normal [facility] Provider Letteron 04-14-2024 Provider Letter Normal [facility] Infectious Disease Office/Cl inic Noteon 04-04-2024 Infectious Disease Office/Clinic Note Normal [facility] Provider Letteron 04-04-2024 Provider Letter Normal [facility] Infectious Disease Office/Cl inic Noteon 03-21-2024 Infectious Disease Office/Clinic Note Normal [facility] Provider Letteron 03-21-2024 Provider Letter Normal [facility] Infectious Disease Office/Cl inic Noteon 03-07-2024 Infectious Disease Office/Clinic Note Normal [facility] C Fungalon 03-03-2024 C Fungal ------- Final No growth at 4 weeks. Normal [facility] Comment on above: Performed By: #### F [place] ####[address] [place] [address] C Fungalon 03-02-2024 C Fungal ------- Final No growth at 4 weeks. Normal [facility] Comment on above: Performed By: #### F [place] ####[address] [place] [address] Infectious Disease Office/[facility] Noteon 02-25-2024 Infectious Disease Office/Clinic Note Normal [facility] C ANAon 02-18-2024 C BRANDON ------- Final No anaerobic organisms isolated at 2 weeks [facility] Comment on above: Performed By: #### A ALFONSO ####[address] [place] [address] [place] TAYLOR ------- Final No anaerobic organisms isolated at 2 weeks Normal [facility] Comment on above: Performed By: #### A ALFONSO ####[address] [place] [address] C BRANDON ------- Final No anaerobic organisms isolated at 2 weeks Normal [facility] Comment on above: Performed By: #### A ALFONSO ###[address] [place] [address] C BRANDON ------- Final No anaerobic organisms isolated at 2 weeks Normal [facility] Comment on above: Performed By: #### Mame HAMILTON ###[address] [place] [address] C BRANDON ------- Final No anaerobic organisms isolated at 2 weeks Normal [facility] Comment on above: Performed By: Jayla### A ALFONSO ###[address] [place] [address] C Sterile BSon 02-18-2024 C Sterile BS ------- Final No growth at 2 weeks. Normal [facility] Comment on above: Performed By: Carlos## Jacklyn BONE ####[address] [place] [address] C Sterile BS ------- Final No growth at 2 weeks. Normal [facility] Comment on above: Performed By: #### S BS ####[address] [place] [address] Send-out: Otheron 02-16-2024 Send-out Other See Report Normal [facility] Comment on above: Order Comment: Broad range PCR on synovial fluidnote: synovial fluid collected in eswab, can't use for test, per Linh Cheatham bone is fine, added on to bone collected at 1829 02/0202/04/2024 18:36:54 EDT [facility]: [facility] Name: Broad Range Bacterial PCR and SequencingTest Code: [id number] 02/05/2024 06:54:06 EDT [facility]GS Result Comment: Miss ing Attachment Chartable Reference Lab Reports Can be viewed in source system Performed By: #### S OOTH ####[address] [address] .eGFRon 02-10-2024 GFR/1.73 sq M.predicted MDRD (S/P/Bld) [Vol rate/Area] mL/min/{1.73_m2} Normal >=60 [facility] Comment on above: Result Comment: [facility] have implemented the eGFR calculation approach that does not have a coefficient for race and that conforms to the NKF-ASN Task Force Recommendations.Stages of Chronic Kidney Disease GFRStage 3a Mild to moderate loss of kidney function 59 to 45Stage 3b Moderate to severe loss of kidney function 44 to 33Stage 4 Severe loss of kidney function 29 to 15Stage 5 Kidney failure Less than 15GFR calculated using the CKD-Epi Creatinine Equation (2020):eGFR = 142 X min(SCr/?, 1)? X max(SCr /?, 1)-1.200 X 0.9938Age X 1.012 [if female]Abbreviations/Units:eGFR (estimated glomerular filtration rate) = mL/min/1.73 m2SCr (standardized serum creatinine) = mg/dL? = 0.7 (females) or 0.9 (males)? = -0.241 (females) or -0.302 (males)min = indicates the minimum of SCr/? or 1max = indicates the maximum of SCr/? or 1Age = years Performed By: #### E GFR ####[address] [address] Basic Metabolic Profileon Anion gap [Moles/Vol] 7 mmol/L Normal 4-12 [facility] Comment on above: Performed By: #### C D:[id number] ####[address] [address] Calcium [Mass/Vol] 8.6 mg/dL Normal 8.5-10.3 [facility] Comment on above: Performed By: #### C D:[id number] ####[address] [address] Chloride [Moles/Vol] 101 mmol/L Normal 98-110 [facility] Comment on above: Performed By: #### C D:[id number] ####[address] [address] CO2 [Moles/Vol] 26 mmol/L Normal 22-32 [facility] Comment on above: Performed By: #### C D:[id number] ####[address] [address] Creatinine [Mass/Vol] 1.09 mg/dL Normal 0.61-1.24 [facility] Comment on above: Performed By: #### C D:[id number] ####[address] [address] Glucose [Mass/Vol] 201 mg/dL High 70-99 [facility] Comment on above: Performed By: #### C D:[id number] ####[address] [address] Potassium [Moles/Vol] 4.9 mmol/L High 3.4-4.8 [facility] Comment on above: Performed By: #### C D:[id number] ####[address] [address] Sodium [Moles/Vol] 134 mmol/L Normal 133-142 [facility] Comment on above: Performed By: #### C D:[id number] ####[address] [address] Urea nitrogen [Mass/Vol] 18 mg/dL Normal 8-26 [facility] Comment on above: Performed By: #### C D:[id number] ####[address] [address] Urea nitrogen/Creatinine [Mass ratio] 16.5 mg/mg Normal 10.0-20.0 [facility] Comment on above: Performed By: #### C D:[id number] ####[address] [address] CBC w/ Diffon 02-10-2024 Erythrocyte distribution width (RBC) [Ratio] 16.7 % High 11.6-14.8 [facility] Comment on above: Performed By: #### C BC ####[address] [address] Hematocrit (Bld) [Volume fraction] 26.0 % Low 41.0-53.0 [facility] Comment on above: Performed By: #### C BC ####[address] [address] Hemoglobin (Bld) [Mass/Vol] 8.8 g/dL Low 13.5-17.5 [facility] Comment on above: Performed By: #### C BC ####[address] [address] MCH (RBC) [Entitic mass] 30.8 pg Normal 27.0-35.0 [facility] Comment on above: Performed By: #### C BC ####[address] [address] MCHC 34.0 % Normal 31.0-37.0 [facility] Comment on above: Performed By: #### C BC ####[address] [address] MCV (RBC) [Entitic vol] 90.6 fL Normal 80.0-100.0 [facility] Comment on above: Performed By: #### C BC ####[address] [address] Platelet 166 x10*3/mcL Normal 150-450 [facility] Comment on above: Performed By: #### C BC ####[address] [address] Platelet mean volume (Bld) [Entitic vol] 6.5 fL Low 6.7-10.6 [facility] Comment on above: Performed By: #### C BC ####[address] [address] RBC 2.87 x10*6/mcL Low 4.30-5.80 [facility] Comment on above: Performed By: #### C BC ####[address] [address] WBC 7.7 x10*3/mcL Normal 4.5-11.0 [facility] Comment on above: Performed By: #### C BC ####[address] [address] Diff Autoon 02-10-2024 Baso Absolute 0.1 x10*3/mcL Normal 0.0-0.2 [facility] Comment on above: Performed By: #### . Automated Diff ####[address] [address] Basophils/100 WBC (Bld) 0.8 % Normal 0.0-1.2 [facility] Comment on above: Performed By: #### . Automated Diff ####[address] [address] Eos Absolute 0.5 x10*3/mcL High 0.0-0.4 [facility] Comment on above: Performed By: #### . Automated Diff ####[address] [address] Eosinophils/100 WBC (Bld) 6.7 % High 0.0-6.1 [facility] Comment on above: Performed By: #### . Automated Diff ####[address] [address] Lymph Absolute 1.2 x10*3/mcL Normal 1.0-4.8 [facility] Comment on above: Performed By: #### . Automated Diff ####[address] [address] Lymphocytes/100 WBC (Bld) 15.6 % Low 27.2-40.8 [facility] Comment on above: Performed By: #### . Automated Diff ####[address] [address] [place] Absolute 0.7 x10*3/mcL Normal 0.3-1.1 [facility] Comment on above: Performed By: #### . Automated Diff ####[address] [address] Monocytes/100 WBC (Bld) 8.7 % Normal 4.7-13.9 [facility] Comment on above: Performed By: #### . Automated Diff ####[address] [address] Neutro Absolute 5.3 x10*3/mcL Normal 1.8-7.7 [facility] Comment on above: Performed By: #### . Automated Diff ####[address] [address] Neutro Auto 68.2 % Normal 47.2-70.8 [facility] Comment on above: Performed By: #### . Automated Diff ####[address] [address] Magnesiumon 02-10-2024 Magnesium [Mass/Vol] 1.7 mg/dL Normal 1.7-2.4 [facility] Comment on above: Performed By: #### M G ####[address] [place] [address] POC Glucose Randomon 024 Glucose [Mass/Vol] 273 mg/dL High 70-99 [facility] Comment on above: Performed By: #### C D:[id number] ####[address] [address] Glucose [Mass/Vol] 194 mg/dL High 70-99 [facility] Comment on above: Performed By: #### C D:[id number] ####[address] [address] .eGFRon 02-09-2024 GFR/1.73 sq M.predicted MDRD (S/P/Bld) [Vol rate/Area] mL/min/{1.73_m2} Normal >=60 [facility] Comment on above: Result Comment: [facility] have implemented the eGFR calculation approach that does not have a coefficient for race and that conforms to the NKF-ASN Task Force Recommendations.Stages of Chronic Kidney Disease GFRStage 3a Mild to moderate loss of kidney function 59 to 45Stage 3b Moderate to severe loss of kidney function 44 to 33Stage 4 Severe loss of kidney function 29 to 15Stage 5 Kidney failure Less than 15GFR calculated using the CKD-Epi Creatinine Equation (2020):eGFR = 142 X min(SCr/?, 1)? X max(SCr /?, 1)-1.200 X 0.9938Age X 1.012 [if female]Abbreviations/Units:eGFR (estimated glomerular filtration rate) = mL/min/1.73 m2SCr (standardized serum creatinine) = mg/dL? = 0.7 (females) or 0.9 (males)? = -0.241 (females) or -0.302 (males)min = indicates the minimum of SCr/? or 1max = indicates the maximum of SCr/? or 1Age = years Performed By: #### E GFR ####[address] [address] Basic Metabolic Profileon Anion gap [Moles/Vol] 6 mmol/L Normal 4-12 [facility] Comment on above: Performed By: #### C D:[id number] ####[address] [place] [address] Calcium [Mass/Vol] 8.7 mg/dL Normal 8.5-10.3 [facility] Comment on above: Performed By: #### C D:[id number] ####[address] [address] Chloride [Moles/Vol] 102 mmol/L Normal 98-110 [facility] Comment on above: Performed By: #### C D:[id number] ####[address] [address] CO2 [Moles/Vol] 27 mmol/L Normal 22-32 [facility] Comment on above: Performed By: #### C D:[id number] ####[address] [address] Creatinine [Mass/Vol] 0.84 mg/dL Normal 0.61-1.24 [facility] Comment on above: Performed By: #### C D:[id number] ####[address] [address] Glucose [Mass/Vol] 224 mg/dL High 70-99 [facility] Comment on above: Performed By: #### C D:[id number] ####[address] [address] Potassium [Moles/Vol] 5.0 mmol/L High 3.4-4.8 [facility] Comment on above: Performed By: #### C D:[id number] ####[address] [address] Sodium [Moles/Vol] 135 mmol/L Normal 133-142 [facility] Comment on above: Performed By: #### C D:[id number] ####[address] [address] Urea nitrogen [Mass/Vol] 20 mg/dL Normal 8-26 [facility] Comment on above: Performed By: #### C D:[id number] ####[address] [address] Urea nitrogen/Creatinine [Mass ratio] 23.8 mg/mg High 10.0-20.0 [facility] Comment on above: Performed By: #### C D:[id number] ####[address] [address] CBC w/ Diffon 02-09-2024 Erythrocyte distribution width (RBC) [Ratio] 16.0 % High 11.6-14.8 [facility] Comment on above: Performed By: #### C BC ####[address] [address] Hematocrit (Bld) [Volume fraction] 25.6 % Low 41.0-53.0 [facility] Comment on above: Performed By: #### C BC ####[id number] Hemoglobin (Bld) [Mass/Vol] 8.7 g/dL Low 13.5-17.5 [facility] Comment on above: Performed By: #### C BC ####[address] [address] MCH (RBC) [Entitic mass] 30.4 pg Normal 27.0-35.0 [facility] Comment on above: Performed By: #### C BC ####[address] [address] MCHC 33.9 % Normal 31.0-37.0 [facility] Comment on above: Performed By: #### C BC ####[address] [address] MCV (RBC) [Entitic vol] 89.6 fL Normal 80.0-100.0 [facility] Comment on above: Performed By: #### C BC ####[address] [address] Platelet 179 x10*3/mcL Normal 150-450 [facility] Comment on above: Performed By: #### C BC ####[address] [address] Platelet mean volume (Bld) [Entitic vol] 6.5 fL Low 6.7-10.6 [facility] Comment on above: Performed By: #### C BC ####[address] [address] RBC 2.86 x10*6/mcL Low 4.30-5.80 [facility] Comment on above: Performed By: #### C BC ####[address] [address] WBC 7.6 x10*3/mcL Normal 4.5-11.0 [facility] Comment on above: Performed By: #### C BC ####[address] [address] Diff Autoon 02-09-2024 Baso Absolute 0.0 x10*3/mcL Normal 0.0-0.2 [facility] Comment on above: Performed By: #### . Automated Diff ####[address] [address] Basophils/100 WBC (Bld) 0.6 % Normal 0.0-1.2 [facility] Comment on above: Performed By: #### . Automated Diff ####[address] [address] Eos Absolute 0.5 x10*3/mcL High 0.0-0.4 [facility] Comment on above: Performed By: #### . Automated Diff ####[address] [address] Eosinophils/100 WBC (Bld) 7.2 % High 0.0-6.1 [facility] Comment on above: Performed By: #### . Automated Diff ####[address] [address] Lymph Absolute 1.2 x10*3/mcL Normal 1.0-4.8 [facility] Comment on above: Performed By: #### . Automated Diff ####[place] [id number] [place] [address] Lymphocytes/100 WBC (Bld) 16.5 % Low 27.2-40.8 [facility] Comment on above: Performed By: #### . Automated Diff ####[address] [address] [place] Absolute 0.6 x10*3/mcL Normal 0.3-1.1 [facility] Comment on above: Performed By: #### . Automated Diff ####[address] [address] Monocytes/100 WBC (Bld) 8.4 % Normal 4.7-13.9 [facility] Comment on above: Performed By: #### . Automated Diff ####[address] [address] Neutro Absolute 5.1 x10*3/mcL Normal 1.8-7.7 [facility] Comment on above: Performed By: #### . Automated Diff ####[address] [address] Neutro Auto 67.3 % Normal 47.2-70.8 [facility] Comment on above: Performed By: #### . Automated Diff ####[address] [address] Infectious Disease Progress Noteon 02-09-2024 Infectious Disease Progress Note Normal [facility] Inpatient Clinical Summaryon 02-09-2024 Inpatient Clinical Summary Normal [facility] Magnesiumon 02-09-2024 Magnesium [Mass/Vol] 1.8 mg/dL Normal 1.7-2.4 [facility] Comment on above: Performed By: #### M G ####[id number] Orthopedic Progress Noteon 0 02-09-2024 Orthopedic Progress Note Normal [facility] POC Glucose Randomon 024 Glucose [Mass/Vol] 243 mg/dL High 70-99 [facility] Comment on above: Performed By: #### C D:[id number] ####[facility] [place] [address] Glucose [Mass/Vol] 217 mg/dL High 70-99 [facility] Comment on above: Performed By: #### C D:[id number] ####[address] [place] [address] Glucose [Mass/Vol] 299 mg/dL High 70-99 [facility] Comment on above: Performed By: #### C D:[id number] ####[address] [address] Glucose [Mass/Vol] 206 mg/dL High 70-99 [facility] Comment on above: Performed By: #### C D:[id number] ####[address] [address] .eGFRon 02-08-2024 GFR/1.73 sq M.predicted MDRD (S/P/Bld) [Vol rate/Area] mL/min/{1.73_m2} Normal >=60 [facility] Comment on above: Result Comment: [facility] have implemented the eGFR calculation approach that does not have a coefficient for race and that conforms to the NKF-ASN Task Force Recommendations.Stages of Chronic Kidney Disease GFRStage 3a Mild to moderate loss of kidney function 59 to 45Stage 3b Moderate to severe loss of kidney function 44 to 33Stage 4 Severe loss of kidney function 29 to 15Stage 5 Kidney failure Less than 15GFR calculated using the CKD-Epi Creatinine Equation (2020):eGFR = 142 X min(SCr/?, 1)? X max(SCr /?, 1)-1.200 X 0.9938Age X 1.012 [if female]Abbreviations/Units:eGFR (estimated glomerular filtration rate) = mL/min/1.73 m2SCr (standardized serum creatinine) = mg/dL? = 0.7 (females) or 0.9 (males)? = -0.241 (females) or -0.302 (males)min = indicates the minimum of SCr/? or 1max = indicates the maximum of SCr/? or 1Age = years Performed By: #### E GFR ####[place] [id number] [place] [address] Basic Metabolic Profileon Anion gap [Moles/Vol] 7 mmol/L Normal 4-12 [facility] Comment on above: Performed By: #### C D:[id number] ####[address] [address] Calcium [Mass/Vol] 8.4 mg/dL Low 8.5-10.3 [facility] Comment on above: Performed By: #### C D:[id number] ####[address] [address] Chloride [Moles/Vol] 105 mmol/L Normal 98-110 [facility] Comment on above: Performed By: #### C D:[id number] ####[address] [address] CO2 [Moles/Vol] 23 mmol/L Normal 22-32 [facility] Comment on above: Performed By: #### C D:[id number] ####[address] [address] Creatinine [Mass/Vol] 0.92 mg/dL Normal 0.61-1.24 [facility] Comment on above: Performed By: #### C D:[id number] ####[address] [address] Glucose [Mass/Vol] 193 mg/dL High 70-99 [facility] Comment on above: Performed By: #### C D:[id number] ####[address] [address] Potassium [Moles/Vol] 4.9 mmol/L High 3.4-4.8 [facility] Comment on above: Performed By: #### C D:[id number] ####[address] [address] Sodium [Moles/Vol] 135 mmol/L Normal 133-142 [facility] Comment on above: Performed By: #### C D:[id number] ####[address] [address] Urea nitrogen [Mass/Vol] 20 mg/dL Normal 8-26 [facility] Comment on above: Performed By: #### C D:[id number] ####[address] [address] Urea nitrogen/Creatinine [Mass ratio] 21.7 mg/mg High 10.0-20.0 [facility] Comment on above: Performed By: #### C D:[id number] ####[address] [address] CBC w/ Diffon 02-08-2024 Erythrocyte distribution width (RBC) [Ratio] 15.8 % High 11.6-14.8 [facility] Comment on above: Performed By: #### C BC ####[address] [address] Hematocrit (Bld) [Volume fraction] 22.7 % Low 41.0-53.0 [facility] Comment on above: Performed By: #### C BC ####[address] [address] Hemoglobin (Bld) [Mass/Vol] 7.6 g/dL Low 13.5-17.5 [facility] Comment on above: Performed By: #### C BC ####[address] [address] MCH (RBC) [Entitic mass] 30.1 pg Normal 27.0-35.0 [facility] Comment on above: Performed By: #### C BC ####[address] [address] MCHC 33.5 % Normal 31.0-37.0 [facility] Comment on above: Performed By: #### C BC ####[address] [address] MCV (RBC) [Entitic vol] 89.8 fL Normal 80.0-100.0 [facility] Comment on above: Performed By: #### C BC ####[address] [address] Platelet 193 x10*3/mcL Normal 150-450 [facility] Comment on above: Performed By: #### C BC ####[address] [address] Platelet mean volume (Bld) [Entitic vol] 6.6 fL Low 6.7-10.6 [facility] Comment on above: Performed By: #### C BC ####[address] [address] RBC 2.53 x10*6/mcL Low 4.30-5.80 [facility] Comment on above: Performed By: #### C BC ####[address] [address] WBC 6.7 x10*3/mcL Normal 4.5-11.0 [facility] Comment on above: Performed By: #### C BC ####[address] [address] Dietary Consultationon 02-07 Dietary Consultation Normal [facility] Diff Autoon 02-08-2024 Baso Absolute 0.0 x10*3/mcL Normal 0.0-0.2 [facility] Comment on above: Performed By: #### . Automated Diff ####[address] [address] Basophils/100 WBC (Bld) 0.6 % Normal 0.0-1.2 [facility] Comment on above: Performed By: #### . Automated Diff ####[address] [address] Eos Absolute 0.5 x10*3/mcL High 0.0-0.4 [facility] Comment on above: Performed By: #### . Automated Diff ####[address] [address] Eosinophils/100 WBC (Bld) 6.8 % High 0.0-6.1 [facility] Comment on above: Performed By: #### . Automated Diff ####[address] [address] Lymph Absolute 1.4 x10*3/mcL Normal 1.0-4.8 [facility] Comment on above: Performed By: #### . Automated Diff ####[address] [address] Lymphocytes/100 WBC (Bld) 20.4 % Low 27.2-40.8 [facility] Comment on above: Performed By: #### . Automated Diff ####[address] [address] [place] Absolute 0.5 x10*3/mcL Normal 0.3-1.1 [facility] Comment on above: Performed By: #### . Automated Diff ####[address] [address] Monocytes/100 WBC (Bld) 7.0 % Normal 4.7-13.9 [facility] Comment on above: Performed By: #### . Automated Diff ####[address] [address] Neutro Absolute 4.4 x10*3/mcL Normal 1.8-7.7 [facility] Comment on above: Performed By: #### . Automated Diff ####[address] [address] Neutro Auto 65.2 % Normal 47.2-70.8 [facility] Comment on above: Performed By: #### . Automated Diff ####[address] [address] Infectious Disease Progress Noteon 02-08-2024 Infectious Disease Progress Note Normal [facility] Magnesiumon 02-08-2024 Magnesium [Mass/Vol] 1.8 mg/dL Normal 1.7-2.4 [facility] Comment on above: Performed By: #### M G ####[address] [address] Orthopedic Progress Noteon 0 02-08-2024 Orthopedic Progress Note Normal [facility] POC Glucose Randomon 024 Glucose [Mass/Vol] 256 mg/dL High 70-99 [facility] Comment on above: Performed By: #### C D:[id number] ####[address] [address] Glucose [Mass/Vol] 223 mg/dL High 70-99 [facility] Comment on above: Performed By: #### C D:[id number] ####[address] [address] Glucose [Mass/Vol] 210 mg/dL High 70-99 [facility] Comment on above: Performed By: #### C D:[id number] ####[address] [address] Glucose [Mass/Vol] 184 mg/dL High 70-99 [facility] Comment on above: Performed By: #### C D:[id number] ####[address] [address] Vanco Troughon 02-08-2024 Vanco Trough 14.70 mcg/mL Normal 10.00-15.00 [facility] Comment on above: Performed By: #### V ANCT ####[address] [address] .eGFRon 02-07-2024 GFR/1.73 sq M.predicted MDRD (S/P/Bld) [Vol rate/Area] mL/min/{1.73_m2} Normal >=60 [facility] Comment on above: Result Comment: [facility] have implemented the eGFR calculation approach that does not have a coefficient for race and that conforms to the NKF-ASN Task Force Recommendations.Stages of Chronic Kidney Disease GFRStage 3a Mild to moderate loss of kidney function 59 to 45Stage 3b Moderate to severe loss of kidney function 44 to 33Stage 4 Severe loss of kidney function 29 to 15Stage 5 Kidney failure Less than 15GFR calculated using the CKD-Epi Creatinine Equation (2020):eGFR = 142 X min(SCr/?, 1)? X max(SCr /?, 1)-1.200 X 0.9938Age X 1.012 [if female]Abbreviations/Units:eGFR (estimated glomerular filtration rate) = mL/min/1.73 m2SCr (standardized serum creatinine) = mg/dL? = 0.7 (females) or 0.9 (males)? = -0.241 (females) or -0.302 (males)min = indicates the minimum of SCr/? or 1max = indicates the maximum of SCr/? or 1Age = years Performed By: #### E GFR ####[address] [address] Basic Metabolic Profileon Anion gap [Moles/Vol] 9 mmol/L Normal 4-12 [facility] Comment on above: Performed By: #### C D:[id number] ####[address] [address] Calcium [Mass/Vol] 8.5 mg/dL Normal 8.5-10.3 [facility] Comment on above: Performed By: #### C D:[id number] ####[address] [address] Chloride [Moles/Vol] 104 mmol/L Normal 98-110 [facility] Comment on above: Performed By: #### C D:[id number] ####[address] [address] CO2 [Moles/Vol] 23 mmol/L Normal 22-32 [facility] Comment on above: Performed By: #### C D:[id number] ####[address] [address] Creatinine [Mass/Vol] 1.03 mg/dL Normal 0.61-1.24 [facility] Comment on above: Performed By: #### C D:[id number] ####[address] [address] Glucose [Mass/Vol] 174 mg/dL High 70-99 [facility] Comment on above: Performed By: #### C D:[id number] ####[address] [address] Potassium [Moles/Vol] 4.7 mmol/L Normal 3.4-4.8 [facility] Comment on above: Performed By: #### C D:[id number] ####[address] [address] Sodium [Moles/Vol] 136 mmol/L Normal 133-142 [facility] Comment on above: Performed By: #### C D:[id number] ####[address] [address] Urea nitrogen [Mass/Vol] 20 mg/dL Normal 8-26 [facility] Comment on above: Performed By: #### C D:[id number] ####[address] [address] Urea nitrogen/Creatinine [Mass ratio] 19.4 mg/mg Normal 10.0-20.0 [facility] Comment on above: Performed By: #### C D:[id number] ####[address] [address] C Bldon 02-07-2024 C Bld ------- Final No growth at 5 days. [facility] Comment on above: Performed By: #### B LDC ####[address] [address] C Sterile BSon 02-07-2024 C Sterile BS [facility] Comment on above: Performed By: #### S BSC ####[facility] ([facility])[address] [place], [place] [id number] [address] C Sterile BS [facility] Comment on above: Performed By: #### S BSC ####[facility] (DEFAULT)[address] [place] [address] [id number] [address] CBC w/ Diffon 02-07-2024 Erythrocyte distribution width (RBC) [Ratio] 16.0 % High 11.6-14.8 [facility] Comment on above: Performed By: #### C BC ####[place] [id number] Hematocrit (Bld) [Volume fraction] 23.9 % Low 41.0-53.0 [facility] Comment on above: Performed By: #### C BC ####[place] [id number] Hemoglobin (Bld) [Mass/Vol] 8.1 g/dL Low 13.5-17.5 [facility] Comment on above: Performed By: #### C BC ####[place] [id number] MCH (RBC) [Entitic mass] 30.5 pg Normal 27.0-35.0 [facility] Comment on above: Performed By: #### C BC ####[place] [id number] MCHC 33.8 % Normal 31.0-37.0 [facility] Comment on above: Performed By: #### C BC ####[place] [id number] MCV (RBC) [Entitic vol] 90.0 fL Normal 80.0-100.0 [facility] Comment on above: Performed By: #### C BC ####[place] [id number] Platelet 177 x10*3/mcL Normal 150-450 [facility] Comment on above: Performed By: #### C BC ####[place] [id number] Platelet mean volume (Bld) [Entitic vol] 6.6 fL Low 6.7-10.6 [facility] Comment on above: Performed By: #### C BC ####[address] [address] RBC 2.66 x10*6/mcL Low 4.30-5.80 [facility] Comment on above: Performed By: #### C BC ####[address] [address] WBC 7.1 x10*3/mcL Normal 4.5-11.0 [facility] Comment on above: Performed By: #### C BC ####[address] [address] Diff Autoon 02-07-2024 Baso Absolute 0.0 x10*3/mcL Normal 0.0-0.2 [facility] Comment on above: Performed By: #### . Automated Diff ####[address] [address] Basophils/100 WBC (Bld) 0.5 % Normal 0.0-1.2 [facility] Comment on above: Performed By: #### . Automated Diff ####[address] [address] Eos Absolute 0.6 x10*3/mcL High 0.0-0.4 [facility] Comment on above: Performed By: #### . Automated Diff ####[address] [address] Eosinophils/100 WBC (Bld) 8.1 % High 0.0-6.1 [facility] Comment on above: Performed By: #### . Automated Diff ####[address] [address] Lymph Absolute 1.6 x10*3/mcL Normal 1.0-4.8 [facility] Comment on above: Performed By: #### . Automated Diff ####[address] [address] Lymphocytes/100 WBC (Bld) 22.8 % Low 27.2-40.8 [facility] Comment on above: Performed By: #### . Automated Diff ####[address] [address] [place] Absolute 0.5 x10*3/mcL Normal 0.3-1.1 [facility] Comment on above: Performed By: #### . Automated Diff ####[address] [address] Monocytes/100 WBC (Bld) 7.6 % Normal 4.7-13.9 [facility] Comment on above: Performed By: #### . Automated Diff ####[address] [address] Neutro Absolute 4.3 x10*3/mcL Normal 1.8-7.7 [facility] Comment on above: Performed By: #### . Automated Diff ####[address] [address] Neutro Auto 61.0 % Normal 47.2-70.8 [facility] Comment on above: Performed By: #### . Automated Diff ####[address] [address] Magnesiumon 02-07-2024 Magnesium [Mass/Vol] 1.7 mg/dL Normal 1.7-2.4 [facility] Comment on above: Performed By: #### M G ####[address] [address] Orthopedic Progress Noteon 0 02-07-2024 Orthopedic Progress Note Normal [facility] POC Glucose Randomon 024 Glucose [Mass/Vol] 267 mg/dL High 70-99 [facility] Comment on above: Performed By: #### C [id number] ####[address] [address] Glucose [Mass/Vol] 229 mg/dL High 70-99 [facility] Comment on above: Performed By: #### C D:[id number] ####[address] [address] Glucose [Mass/Vol] 246 mg/dL High 70-99 [facility] Comment on above: Performed By: #### C D:[id number] ####[address] [address] Glucose [Mass/Vol] 166 mg/dL High 70-99 [facility] Comment on above: Performed By: #### C D:[id number] ####[address] [address] .eGFRon 02-06-2024 GFR/1.73 sq M.predicted MDRD (S/P/Bld) [Vol rate/Area] mL/min/{1.73_m2} Normal >=60 [facility] Comment on above: Result Comment: [facility] have implemented the eGFR calculation approach that does not have a coefficient for race and that conforms to the NKF-ASN Task Force Recommendations.Stages of Chronic Kidney Disease GFRStage 3a Mild to moderate loss of kidney function 59 to 45Stage 3b Moderate to severe loss of kidney function 44 to 33Stage 4 Severe loss of kidney function 29 to 15Stage 5 Kidney failure Less than 15GFR calculated using the CKD-Epi Creatinine Equation (2020):eGFR = 142 X min(SCr/?, 1)? X max(SCr /?, 1)-1.200 X 0.9938Age X 1.012 [if female]Abbreviations/Units:eGFR (estimated glomerular filtration rate) = mL/min/1.73 m2SCr (standardized serum creatinine) = mg/dL? = 0.7 (females) or 0.9 (males)? = -0.241 (females) or -0.302 (males)min = indicates the minimum of SCr/? or 1max = indicates the maximum of SCr/? or 1Age = years Performed By: #### E GFR ####[address] [address] ABO/Rhon 02-06-2024 ABO/Rh ABO/Rh: A POS Normal [facility] Comment on above: Performed By: #### A BORH ####[address] [address] ABSC Autoon 02-06-2024 ABSC Auto Negative Normal [facility] Comment on above: Performed By: #### A SA ####[address] [address] Basic Metabolic Profileon Anion gap [Moles/Vol] 8 mmol/L Normal 4-12 [facility] Comment on above: Performed By: #### C D:[id number] ####[address] [address] Calcium [Mass/Vol] 8.1 mg/dL Low 8.5-10.3 [facility] Comment on above: Performed By: #### C D:[id number] ####[address] [address] Chloride [Moles/Vol] 104 mmol/L Normal 98-110 [facility] Comment on above: Performed By: #### C D:[id number] ####[address] [place] [address] CO2 [Moles/Vol] 22 mmol/L Normal 22-32 [facility] Comment on above: Performed By: #### C D:[id number] ####[address] [address] Creatinine [Mass/Vol] 0.95 mg/dL Normal 0.61-1.24 [facility] Comment on above: Performed By: #### C D:[id number] ####[address] [place] [address] Glucose [Mass/Vol] 238 mg/dL High 70-99 [facility] Comment on above: Performed By: #### C D:[id number] ####[address] [address] Potassium [Moles/Vol] 4.5 mmol/L Normal 3.4-4.8 [facility] Comment on above: Performed By: #### C D:[id number] ####[address] [address] Sodium [Moles/Vol] 134 mmol/L Normal 133-142 [facility] Comment on above: Performed By: #### C D:[id number] ####[address] [address] Urea nitrogen [Mass/Vol] 17 mg/dL Normal 8-26 [facility] Comment on above: Performed By: #### C D:[id number] ####[address] [address] Urea nitrogen/Creatinine [Mass ratio] 17.9 mg/mg Normal 10.0-20.0 [facility] Comment on above: Performed By: #### C D:[id number] ####[address] [address] C ANAon 02-06-2024 C BRANDON ------- Final No anaerobic growth after 72 hrs. Normal [facility] Comment on above: Performed By: #### A NAC ####[address] [address] CBC w/ Diffon 02-06-2024 Erythrocyte distribution width (RBC) [Ratio] 14.8 % Normal 11.6-14.8 [facility] Comment on above: Performed By: #### C BC ####[address] [address] Hematocrit (Bld) [Volume fraction] 20.0 % Low 41.0-53.0 [facility] Comment on above: Performed By: #### C BC ####[address] [address] Hemoglobin (Bld) [Mass/Vol] 6.7 g/dL Low 13.5-17.5 [facility] Comment on above: Performed By: #### C BC ####[place] [address] MCH (RBC) [Entitic mass] 29.7 pg Normal 27.0-35.0 [facility] Comment on above: Performed By: #### C BC ####[place] [id number] MCHC 33.5 % Normal 31.0-37.0 [facility] Comment on above: Performed By: #### C BC ####[place] [id number] MCV (RBC) [Entitic vol] 88.8 fL Normal 80.0-100.0 [facility] Comment on above: Performed By: #### C BC ####[place] [address] Platelet 144 x10*3/mcL Low 150-450 [facility] Comment on above: Performed By: #### C BC ####[place] [id number] Platelet mean volume (Bld) [Entitic vol] 6.9 fL Normal 6.7-10.6 [facility] Comment on above: Performed By: #### C BC ####[place] [address] RBC 2.25 x10*6/mcL Low 4.30-5.80 [facility] Comment on above: Performed By: #### C BC ####[place] [id number] WBC 5.4 x10*3/mcL Normal 4.5-11.0 [facility] Comment on above: Performed By: #### C BC ####[place] [id number] Diff Autoon 02-06-2024 Baso Absolute 0.0 x10*3/mcL Normal 0.0-0.2 [facility] Comment on above: Performed By: #### . Automated Diff ####[place] [id number] Basophils/100 WBC (Bld) 0.6 % Normal 0.0-1.2 [facility] Comment on above: Performed By: #### . Automated Diff ####[address] [address] Eos Absolute 0.4 x10*3/mcL Normal 0.0-0.4 [facility] Comment on above: Performed By: #### . Automated Diff ####[address] [address] Eosinophils/100 WBC (Bld) 7.9 % High 0.0-6.1 [facility] Comment on above: Performed By: #### . Automated Diff ####[address] [address] Lymph Absolute 1.4 x10*3/mcL Normal 1.0-4.8 [facility] Comment on above: Performed By: #### . Automated Diff ####[address] [address] Lymphocytes/100 WBC (Bld) 25.2 % Low 27.2-40.8 [facility] Comment on above: Performed By: #### . Automated Diff ####[address] [address] [place] Absolute 0.5 x10*3/mcL Normal 0.3-1.1 [facility] Comment on above: Performed By: #### . Automated Diff ####[address] [address] Monocytes/100 WBC (Bld) 8.9 % Normal 4.7-13.9 [facility] Comment on above: Performed By: #### . Automated Diff ####[address] [address] Neutro Absolute 3.1 x10*3/mcL Normal 1.8-7.7 [facility] Comment on above: Performed By: #### . Automated Diff ####[address] [address] Neutro Auto 57.4 % Normal 47.2-70.8 [facility] Comment on above: Performed By: #### . Automated Diff ####[address] [address] Infectious Disease Progress Noteon 02-06-2024 Infectious Disease Progress Note Normal [facility] Magnesiumon 02-06-2024 Magnesium [Mass/Vol] 1.6 mg/dL Low 1.7-2.4 [facility] Comment on above: Performed By: #### M G ####[address] [address] Orthopedic Progress Noteon 0 02-06-2024 Orthopedic Progress Note Normal [facility] POC Glucose Randomon 024 Glucose [Mass/Vol] 254 mg/dL High 70-99 [facility] Comment on above: Performed By: #### C D:[id number] ####[address] [address] Glucose [Mass/Vol] 209 mg/dL High 70-99 [facility] Comment on above: Performed By: #### C D:[id number] ####[address] [address] Glucose [Mass/Vol] 217 mg/dL High 70-99 [facility] Comment on above: Performed By: #### C D:[id number] ####[address] [address] Glucose [Mass/Vol] 178 mg/dL High 70-99 [facility] Comment on above: Performed By: #### C D:[id number] ####[address] [address] Vanco Troughon 02-06-2024 Vanco Trough 16.60 mcg/mL High 10.00-15.00 [facility] Comment on above: Performed By: #### V ANCT ####[address] [address] .eGFRon 02-05-2024 GFR/1.73 sq M.predicted MDRD (S/P/Bld) [Vol rate/Area] mL/min/{1.73_m2} Normal >=60 [facility] Comment on above: Result Comment: [facility] have implemented the eGFR calculation approach that does not have a coefficient for race and that conforms to the NKF-ASN Task Force Recommendations.Stages of Chronic Kidney Disease GFRStage 3a Mild to moderate loss of kidney function 59 to 45Stage 3b Moderate to severe loss of kidney function 44 to 33Stage 4 Severe loss of kidney function 29 to 15Stage 5 Kidney failure Less than 15GFR calculated using the CKD-Epi Creatinine Equation (2020):eGFR = 142 X min(SCr/?, 1)? X max(SCr /?, 1)-1.200 X 0.9938Age X 1.012 [if female]Abbreviations/Units:eGFR (estimated glomerular filtration rate) = mL/min/1.73 m2SCr (standardized serum creatinine) = mg/dL? = 0.7 (females) or 0.9 (males)? = -0.241 (females) or -0.302 (males)min = indicates the minimum of SCr/? or 1max = indicates the maximum of SCr/? or 1Age = years Performed By: #### E GFR ####[address] [address] Basic Metabolic Profileon Anion gap [Moles/Vol] 7 mmol/L Normal 4-12 [facility] Comment on above: Performed By: #### C D:[id number] ####[place] [address] [place] [address] Calcium [Mass/Vol] 8.2 mg/dL Low 8.5-10.3 [facility] Comment on above: Performed By: #### C D:[id number] ####[address] [address] Chloride [Moles/Vol] 104 mmol/L Normal 98-110 [facility] Comment on above: Performed By: #### C D:[id number] ####[place] [address] [place] [address] CO2 [Moles/Vol] 23 mmol/L Normal 22-32 [facility] Comment on above: Performed By: #### C D:[id number] ####[address] [address] Creatinine [Mass/Vol] 1.10 mg/dL Normal 0.61-1.24 [facility] Comment on above: Performed By: #### C D:[id number] ####[address] [address] Glucose [Mass/Vol] 214 mg/dL High 70-99 [facility] Comment on above: Performed By: #### C D:[id number] ####[address] [address] Potassium [Moles/Vol] 4.5 mmol/L Normal 3.4-4.8 [facility] Comment on above: Performed By: #### C D:[id number] ####[address] [address] Sodium [Moles/Vol] 134 mmol/L Normal 133-142 [facility] Comment on above: Performed By: #### C D:[id number] ####[address] [address] Urea nitrogen [Mass/Vol] 15 mg/dL Normal 8-26 [facility] Comment on above: Performed By: #### C D:[id number] ####[address] [address] Urea nitrogen/Creatinine [Mass ratio] 13.6 mg/mg Normal 10.0-20.0 [facility] Comment on above: Performed By: #### C D:[id number] ####[address] [address] C Woundon 02-05-2024 C Wound ------- Final No growth at 48 hours. Normal [facility] Comment on above: Performed By: #### W DC ####[place] [address] CBC w/ Diffon 02-05-2024 Erythrocyte distribution width (RBC) [Ratio] 15.0 % High 11.6-14.8 [facility] Comment on above: Performed By: #### C BC ####[place] [id number] Hematocrit (Bld) [Volume fraction] 21.6 % Low 41.0-53.0 [facility] Comment on above: Performed By: #### C BC ####[place] [address] Hemoglobin (Bld) [Mass/Vol] 7.2 g/dL Low 13.5-17.5 [facility] Comment on above: Performed By: #### C BC ####[place] [id number] MCH (RBC) [Entitic mass] 29.6 pg Normal 27.0-35.0 [facility] Comment on above: Performed By: #### C BC ####[place] [address] MCHC 33.5 % Normal 31.0-37.0 [facility] Comment on above: Performed By: #### C BC ####[place] [id number] MCV (RBC) [Entitic vol] 88.4 fL Normal 80.0-100.0 [facility] Comment on above: Performed By: #### C BC ####[place] [id number] Platelet 157 x10*3/mcL Normal 150-450 [facility] Comment on above: Performed By: #### C BC ####[place] [id number] Platelet mean volume (Bld) [Entitic vol] 6.9 fL Normal 6.7-10.6 [facility] Comment on above: Performed By: #### C BC ####[address] [address] RBC 2.44 x10*6/mcL Low 4.30-5.80 [facility] Comment on above: Performed By: #### C BC ####[address] [address] WBC 6.5 x10*3/mcL Normal 4.5-11.0 [facility] Comment on above: Performed By: #### C BC ####[address] [address] Diff Autoon 02-05-2024 Baso Absolute 0.0 x10*3/mcL Normal 0.0-0.2 [facility] Comment on above: Performed By: #### . Automated Diff ####[address] [address] Basophils/100 WBC (Bld) 0.3 % Normal 0.0-1.2 [facility] Comment on above: Performed By: #### . Automated Diff ####[address] [address] Eos Absolute 0.4 x10*3/mcL Normal 0.0-0.4 [facility] Comment on above: Performed By: #### . Automated Diff ####[address] [address] Eosinophils/100 WBC (Bld) 6.1 % Normal 0.0-6.1 [facility] Comment on above: Performed By: #### . Automated Diff ####[address] [address] Lymph Absolute 1.4 x10*3/mcL Normal 1.0-4.8 [facility] Comment on above: Performed By: #### . Automated Diff ####[address] [address] Lymphocytes/100 WBC (Bld) 21.6 % Low 27.2-40.8 [facility] Comment on above: Performed By: #### . Automated Diff ####[address] [address] [place] Absolute 0.5 x10*3/mcL Normal 0.3-1.1 [facility] Comment on above: Performed By: #### . Automated Diff ####[address] [address] Monocytes/100 WBC (Bld) 7.8 % Normal 4.7-13.9 [facility] Comment on above: Performed By: #### . Automated Diff ####[address] [address] Neutro Absolute 4.2 x10*3/mcL Normal 1.8-7.7 [facility] Comment on above: Performed By: #### . Automated Diff ####[address] [address] Neutro Auto 64.2 % Normal 47.2-70.8 [facility] Comment on above: Performed By: #### . Automated Diff ####[address] [address] Infectious Disease Progress Noteon 02-05-2024 Infectious Disease Progress Note Normal [facility] Magnesiumon 02-05-2024 Magnesium [Mass/Vol] 1.7 mg/dL Normal 1.7-2.4 [facility] Comment on above: Performed By: #### M G ####[address] [address] POC Glucose Randomon 024 Glucose [Mass/Vol] 220 mg/dL High 70-99 [facility] Comment on above: Performed By: #### C D:[id number] ####[address] [address] Glucose [Mass/Vol] 246 mg/dL High 70-99 [facility] Comment on above: Performed By: #### C D:[id number] ####[address] [address] Glucose [Mass/Vol] 185 mg/dL High 70-99 [facility] Comment on above: Performed By: #### C D:[id number] ####[address] [place] [address] Progress Note-Nurseon 2023 Progress Note-Nurse Normal [facility] XR PICC Floor Inserton 02-04 XR PICC Floor Insert Normal [facility] .eGFRon 02-04-2024 GFR/1.73 sq M.predicted MDRD (S/P/Bld) [Vol rate/Area] mL/min/{1.73_m2} Normal >=60 [facility] Comment on above: Result Comment: [facility] have implemented the eGFR calculation approach that does not have a coefficient for race and that conforms to the NKF-ASN Task Force Recommendations.Stages of Chronic Kidney Disease GFRStage 3a Mild to moderate loss of kidney function 59 to 45Stage 3b Moderate to severe loss of kidney function 44 to 33Stage 4 Severe loss of kidney function 29 to 15Stage 5 Kidney failure Less than 15GFR calculated using the CKD-Epi Creatinine Equation (2020):eGFR = 142 X min(SCr/?, 1)? X max(SCr /?, 1)-1.200 X 0.9938Age X 1.012 [if female]Abbreviations/Units:eGFR (estimated glomerular filtration rate) = mL/min/1.73 m2SCr (standardized serum creatinine) = mg/dL? = 0.7 (females) or 0.9 (males)? = -0.241 (females) or -0.302 (males)min = indicates the minimum of SCr/? or 1max = indicates the maximum of SCr/? or 1Age = years Performed By: #### E GFR ####[facility] [place] [address] Basic Metabolic Profileon Anion gap [Moles/Vol] 7 mmol/L Normal 4-12 [facility] Comment on above: Performed By: #### C D:[id number] ####[address] [place] [address] Calcium [Mass/Vol] 7.7 mg/dL Low 8.5-10.3 [facility] Comment on above: Performed By: #### C D:[id number] ####[address] [address] Chloride [Moles/Vol] 103 mmol/L Normal 98-110 [facility] Comment on above: Performed By: #### C D:[id number] ####[address] [address] CO2 [Moles/Vol] 22 mmol/L Normal 22-32 [facility] Comment on above: Performed By: #### C D:[id number] ####[address] [address] Creatinine [Mass/Vol] 1.10 mg/dL Normal 0.61-1.24 [facility] Comment on above: Performed By: #### C D:[id number] ####[address] [address] Glucose [Mass/Vol] 351 mg/dL High 70-99 [facility] Comment on above: Performed By: #### C D:[id number] ####[address] [address] Potassium [Moles/Vol] 4.5 mmol/L Normal 3.4-4.8 [facility] Comment on above: Performed By: #### C D:[id number] ####[address] [address] Sodium [Moles/Vol] 132 mmol/L Low 133-142 [facility] Comment on above: Performed By: #### C D:[id number] ####[address] [address] Urea nitrogen [Mass/Vol] 17 mg/dL Normal 8-26 [facility] Comment on above: Performed By: #### C D:[id number] ####[address] [address] Urea nitrogen/Creatinine [Mass ratio] 15.5 mg/mg Normal 10.0-20.0 [facility] Comment on above: Performed By: #### C D:[id number] ####[place] [id number] C Sterile BFon 02-04-2024 C Sterile BF ------- Final No growth at 2 weeks. ------- Gram Stain Many White Blood Cells No organisms seen. Normal [facility] Comment on above: Performed By: #### C SBF ####[place] [address] CBC w/ Diffon 02-04-2024 Erythrocyte distribution width (RBC) [Ratio] 14.9 % High 11.6-14.8 [facility] Comment on above: Performed By: #### C BC ####[place] [id number] Hematocrit (Bld) [Volume fraction] 25.5 % Low 41.0-53.0 [facility] Comment on above: Performed By: #### C BC ####[place] [id number] Hemoglobin (Bld) [Mass/Vol] 8.4 g/dL Low 13.5-17.5 [facility] Comment on above: Performed By: #### C BC ####[place] [id number] MCH (RBC) [Entitic mass] 29.6 pg Normal 27.0-35.0 [facility] Comment on above: Performed By: #### C BC ####[address] [address] MCHC 33.1 % Normal 31.0-37.0 [facility] Comment on above: Performed By: #### C BC ####[address] [address] MCV (RBC) [Entitic vol] 89.4 fL Normal 80.0-100.0 [facility] Comment on above: Performed By: #### C BC ####[place] [id number] Platelet 186 x10*3/mcL Normal 150-450 [facility] Comment on above: Performed By: #### C BC ####[place] [id number] Platelet mean volume (Bld) [Entitic vol] 7.1 fL Normal 6.7-10.6 [facility] Comment on above: Result Comment: Repo rted to nurse before verifying to ensure accuracy of results. Performed By: #### C BC ####[place] [id number] RBC 2.85 x10*6/mcL Low 4.30-5.80 [facility] Comment on above: Performed By: #### C BC ####[place] [id number] WBC 10.9 x10*3/mcL Normal 4.5-11.0 [facility] Comment on above: Performed By: #### C BC ####[place] [id number] Diff Autoon 02-04-2024 Baso Absolute 0.1 x10*3/mcL Normal 0.0-0.2 [facility] Comment on above: Performed By: #### . Automated Diff ####[address] [address] Basophils/100 WBC (Bld) 0.6 % Normal 0.0-1.2 [facility] Comment on above: Performed By: #### . Automated Diff ####[address] [address] Eos Absolute 0.0 x10*3/mcL Normal 0.0-0.4 [facility] Comment on above: Performed By: #### . Automated Diff ####[address] [address] Eosinophils/100 WBC (Bld) 0.3 % Normal 0.0-6.1 [facility] Comment on above: Performed By: #### . Automated Diff ####[place] [id number] Lymph Absolute 1.0 x10*3/mcL Normal 1.0-4.8 [facility] Comment on above: Performed By: #### . Automated Diff ####[place] [id number] Lymphocytes/100 WBC (Bld) 9.6 % Low 27.2-40.8 [facility] Comment on above: Performed By: #### . Automated Diff ####[place] [id number] [place] Absolute 0.6 x10*3/mcL Normal 0.3-1.1 [facility] Comment on above: Performed By: #### . Automated Diff ####[place] [id number] Monocytes/100 WBC (Bld) 5.4 % Normal 4.7-13.9 [facility] Comment on above: Performed By: #### . Automated Diff ####[place] [id number] Neutro Absolute 9.2 x10*3/mcL High 1.8-7.7 [facility] Comment on above: Performed By: #### . Automated Diff ####[place] [id number] Neutro Auto 84.1 % High 47.2-70.8 [facility] Comment on above: Performed By: #### . Automated Diff ####[place] [id number] Infectious Disease Consultat ionon 02-04-2024 Infectious Disease Consultation Normal [facility] Magnesiumon 02-04-2024 Magnesium [Mass/Vol] 1.8 mg/dL Normal 1.7-2.4 [facility] Comment on above: Performed By: #### M G ####[address] [address] Orthopedic Progress Noteon 0 02-04-2024 Orthopedic Progress Note Normal [facility] POC Glucose Randomon 024 Glucose [Mass/Vol] 239 mg/dL High 70-99 [facility] Comment on above: Performed By: #### C [id number] ####[address] [address] Glucose [Mass/Vol] 187 mg/dL High 70-99 [facility] Comment on above: Performed By: #### C [id number] ####[address] [address] Glucose [Mass/Vol] 285 mg/dL High 70-99 [facility] Comment on above: Performed By: #### C [id number] ####[address] [address] Glucose [Mass/Vol] 288 mg/dL High 70-99 [facility] Comment on above: Performed By: #### C [id number] ####[address] [address] Vanco Troughon 02-04-2024 Vanco Trough 19.40 mcg/mL High 10.00-15.00 [facility] Comment on above: Performed By: #### V ANCT ####[address] [address] .eGFRon 02-03-2024 GFR/1.73 sq M.predicted MDRD (S/P/Bld) [Vol rate/Area] mL/min/{1.73_m2} Normal >=60 [facility] Comment on above: Result Comment: [facility] have implemented the eGFR calculation approach that does not have a coefficient for race and that conforms to the NKF-ASN Task Force Recommendations.Stages of Chronic Kidney Disease GFRStage 3a Mild to moderate loss of kidney function 59 to 45Stage 3b Moderate to severe loss of kidney function 44 to 33Stage 4 Severe loss of kidney function 29 to 15Stage 5 Kidney failure Less than 15GFR calculated using the CKD-Epi Creatinine Equation (2020):eGFR = 142 X min(SCr/?, 1)? X max(SCr /?, 1)-1.200 X 0.9938Age X 1.012 [if female]Abbreviations/Units:eGFR (estimated glomerular filtration rate) = mL/min/1.73 m2SCr (standardized serum creatinine) = mg/dL? = 0.7 (females) or 0.9 (males)? = -0.241 (females) or -0.302 (males)min = indicates the minimum of SCr/? or 1max = indicates the maximum of SCr/? or 1Age = years Performed By: #### E GFR ####[address] [address] ABO/Rhon 02-03-2024 ABO/Rh ABO/Rh: A POS Normal [facility] Comment on above: Performed By: #### A FLAVIO ####[address] [address] ABSC Autoon 02-03-2024 ABSC Auto Negative Normal [facility] Comment on above: Performed By: #### A SA ####[address] [address] Basic Metabolic Profileon Anion gap [Moles/Vol] 9 mmol/L Normal 4-12 [facility] Comment on above: Performed By: #### C [id number] ####[address] [address] Calcium [Mass/Vol] 9.3 mg/dL Normal 8.5-10.3 [facility] Comment on above: Performed By: #### C [id number] ####[address] [address] Chloride [Moles/Vol] 101 mmol/L Normal 98-110 [facility] Comment on above: Performed By: #### C [id number] ####[address] [address] CO2 [Moles/Vol] 24 mmol/L Normal 22-32 [facility] Comment on above: Performed By: #### C [id number] ####[address] [address] Creatinine [Mass/Vol] 0.93 mg/dL Normal 0.61-1.24 [facility] Comment on above: Performed By: #### C [id number] ####[address] [address] Glucose [Mass/Vol] 118 mg/dL High 70-99 [facility] Comment on above: Performed By: #### C [id number] ####[address] [address] Potassium [Moles/Vol] 4.8 mmol/L Normal 3.4-4.8 [facility] Comment on above: Performed By: #### C [id number] ####[address] [address] Sodium [Moles/Vol] 134 mmol/L Normal 133-142 [facility] Comment on above: Performed By: #### C [id number] ####[address] [address] Urea nitrogen [Mass/Vol] 15 mg/dL Normal 8-26 [facility] Comment on above: Performed By: #### C [id number] ####[address] [address] Urea nitrogen/Creatinine [Mass ratio] 16.1 mg/mg Normal 10.0-20.0 [facility] Comment on above: Performed By: #### C [id number] ####[address] [address] CBC w/ Diffon 02-03-2024 Erythrocyte distribution width (RBC) [Ratio] 15.0 % High 11.6-14.8 [facility] Comment on above: Performed By: #### C BC ####[place] [id number] Hematocrit (Bld) [Volume fraction] 41.9 % Normal 41.0-53.0 [facility] Comment on above: Performed By: #### C BC ####[place] [id number] Hemoglobin (Bld) [Mass/Vol] 14.1 g/dL Normal 13.5-17.5 [facility] Comment on above: Performed By: #### C BC ####[place] [id number] MCH (RBC) [Entitic mass] 29.4 pg Normal 27.0-35.0 [facility] Comment on above: Performed By: #### C BC ####[place] [address] MCHC 33.6 % Normal 31.0-37.0 [facility] Comment on above: Performed By: #### C BC ####[place] [id number] MCV (RBC) [Entitic vol] 87.7 fL Normal 80.0-100.0 [facility] Comment on above: Performed By: #### C BC ####[place] [id number] Platelet 253 x10*3/mcL Normal 150-450 [facility] Comment on above: Performed By: #### C BC ####[place] [id number] Platelet mean volume (Bld) [Entitic vol] 6.6 fL Low 6.7-10.6 [facility] Comment on above: Performed By: #### C BC ####[place] [id number] RBC 4.78 x10*6/mcL Normal 4.30-5.80 [facility] Comment on above: Performed By: #### C BC ####[address] [address] WBC 9.1 x10*3/mcL Normal 4.5-11.0 [facility] Comment on above: Performed By: #### C BC ####[address] [address] CRPon 02-03-2024 CRP 2.92 mg/dL High 0.00-0.75 [facility] Comment on above: Result Comment: CRP measurement is useful for assessment of non-specificINFLAMMATORY RESPONSE to infection or injury AND is asensitive MARKER of ACUTE INFLAMMATION including CARDIACRISK ASSESSMENT.CARDIAC patients with elevated CRP are POTENTIALLY at aHIGHER RISK OF FUTURE CARDIAC EVENTS. Performed By: #### C RP ####[address] [address] Diff Autoon 02-03-2024 Baso Absolute 0.1 x10*3/mcL Normal 0.0-0.2 [facility] Comment on above: Performed By: #### . Automated Diff ####[address] [address] Basophils/100 WBC (Bld) 1.2 % Normal 0.0-1.2 [facility] Comment on above: Performed By: #### . Automated Diff ####[address] [address] Eos Absolute 0.5 x10*3/mcL High 0.0-0.4 [facility] Comment on above: Performed By: #### . Automated Diff ####[address] [address] Eosinophils/100 WBC (Bld) 5.3 % Normal 0.0-6.1 [facility] Comment on above: Performed By: #### . Automated Diff ####[address] [address] Lymph Absolute 1.7 x10*3/mcL Normal 1.0-4.8 [facility] Comment on above: Performed By: #### . Automated Diff ####[address] [address] Lymphocytes/100 WBC (Bld) 18.9 % Low 27.2-40.8 [facility] Comment on above: Performed By: #### . Automated Diff ####[address] [address] [place] Absolute 0.8 x10*3/mcL Normal 0.3-1.1 [facility] Comment on above: Performed By: #### . Automated Diff ####[address] [address] Monocytes/100 WBC (Bld) 8.3 % Normal 4.7-13.9 [facility] Comment on above: Performed By: #### . Automated Diff ####[address] [address] Neutro Absolute 6.0 x10*3/mcL Normal 1.8-7.7 [facility] Comment on above: Performed By: #### . Automated Diff ####[address] [address] Neutro Auto 66.3 % Normal 47.2-70.8 [facility] Comment on above: Performed By: #### . Automated Diff ####[address] [address] ESRon 02-03-2024 Sed Rate 17 mm/hr Normal 0-23 [facility] Comment on above: Performed By: #### E SR ####[address] [address] Hgb A1con 02-03-2024 Glucose [Mass/Vol] 197 mg/dL High 68-114 [facility] Comment on above: Result Comment: Math ematical Calc approx. The mean gluc equivalency of A1c Performed By: #### H BA1C ####[address] [address] Hgb A1c 8.5 % A1c High 4.0-5.6 [facility] Comment on above: Result Comment: Refe rence Range:4.0 - 5.6 % Normal5.7 - 6.4 % Pre-Diabetes > 6.5 % Diabetes Performed By: #### H BA1C ####[address] [address] Magnesiumon 02-03-2024 Magnesium [Mass/Vol] 1.9 mg/dL Normal 1.7-2.4 [facility] Comment on above: Performed By: #### M G ####[address] [address] Operative Reporton Operative Report Normal [facility] Orthopedic Consultationon Orthopedic Consultation Normal [facility] POC Glucose Randomon 024 Glucose [Mass/Vol] 173 mg/dL High 70-99 [facility] Comment on above: Performed By: #### C [id number] ####[address] [address] Glucose [Mass/Vol] 177 mg/dL High 70-99 [facility] Comment on above: Performed By: #### C [id number] ####[address] [address] Glucose [Mass/Vol] 144 mg/dL High 70-99 [facility] Comment on above: Performed By: #### C [id number] ####[address] [address] Glucose [Mass/Vol] 115 mg/dL High 70-99 [facility] Comment on above: Performed By: #### C [id number] ####[address] [address] Glucose [Mass/Vol] 181 mg/dL High 70-99 [facility] Comment on above: Performed By: #### C [id number] ####[address] [address] Glucose [Mass/Vol] 118 mg/dL High 70-99 [facility] Comment on above: Performed By: #### C [id number] ####[place] [address] XR Knee 1 or 2 Views Righton 02-03-2024 XR Knee 1 or 2 Views Right Normal [facility] .BF Cell Cnt RBC Aon 024 Fluid RBC Count 360039 /mcL Normal [facility] Comment on above: Result Comment: Ther e are no established Reference Ranges for bronchoalveolar lavage (BAL), synovial, miscellaneous body, or dialysate fluids. Performed By: #### . Body Fluid Cell Count RBC Auto ####[place] [address] .BF Cell Cnt WBC Aon 024 Fluid WBC Count [address] /mcL High 0-150 [facility] Comment on above: Result Comment: Ther e are no established Reference Ranges for bronchoalveolar lavage (BAL), miscellaneous body, or dialysate fluids. Performed By: #### . Body Fluid Cell Count WBC Auto ####[place] [address] .BF Diffon 02-02-2024 Fluid Mononuclear Cells 6 % Normal 0-78 [facility] Comment on above: Result Comment: Ther e are no established Reference Ranges for bronchoalveolar lavage (BAL), miscellaneous body, or dialysate fluids. Performed By: #### . Body Fluid Differential ####[place] [address] Fluid Other Cells 0 % Normal 0-10 [facility] Comment on above: Result Comment: Ther e are no established Reference Ranges for bronchoalveolar lavage (BAL), miscellaneous body, or dialysate fluids. Performed By: #### . Body Fluid Differential ####[place] [address] Fluid Polynuclear Cells 94 % High 0-25 [facility] Comment on above: Result Comment: Ther e are no established Reference Ranges for bronchoalveolar lavage (BAL), miscellaneous body, or dialysate fluids. Performed By: #### . Body Fluid Differential ####[place] [address] .UA Microscp Aon 02-02-2024 UA Hyline Cast Qual 0-2 Normal Negative [facility] Comment on above: Performed By: #### . Urinalysis Microscopic Auto ####[address] [address] UA Mucus Present Normal Absent [facility] Comment on above: Performed By: #### . Urinalysis Microscopic Auto ####[place] [address] UA RBC Quant 1 /HPF Normal 0-5 [facility] Comment on above: Performed By: #### . Urinalysis Microscopic Auto ####[place] [address] UA WBC Quant 0 /HPF Normal 0-5 [facility] Comment on above: Performed By: #### . Urinalysis Microscopic Auto ####[place] [address] .eGFRon 02-02-2024 GFR/1.73 sq M.predicted MDRD (S/P/Bld) [Vol rate/Area] mL/min/{1.73_m2} Normal >=60 [facility] Comment on above: Result Comment: [facility] have implemented the eGFR calculation approach that does not have a coefficient for race and that conforms to the NKF-ASN Task Force Recommendations.Stages of Chronic Kidney Disease GFRStage 3a Mild to moderate loss of kidney function 59 to 45Stage 3b Moderate to severe loss of kidney function 44 to 33Stage 4 Severe loss of kidney function 29 to 15Stage 5 Kidney failure Less than 15GFR calculated using the CKD-Epi Creatinine Equation (2020):eGFR = 142 X min(SCr/?, 1)? X max(SCr /?, 1)-1.200 X 0.9938Age X 1.012 [if female]Abbreviations/Units:eGFR (estimated glomerular filtration rate) = mL/min/1.73 m2SCr (standardized serum creatinine) = mg/dL? = 0.7 (females) or 0.9 (males)? = -0.241 (females) or -0.302 (males)min = indicates the minimum of SCr/? or 1max = indicates the maximum of SCr/? or 1Age = years Performed By: #### E GFR ####[address] [address] BF Cell Counton 02-02-2024 Body Fluid Cell Cnt Type Synovial Normal [facility] Comment on above: Performed By: #### F LCC ####[place] [id number] CBC w/ Diffon 02-02-2024 Erythrocyte distribution width (RBC) [Ratio] 14.8 % Normal 11.6-14.8 [facility] Comment on above: Performed By: #### C BC ####[place] [id number] Hematocrit (Bld) [Volume fraction] 38.7 % Low 41.0-53.0 [facility] Comment on above: Performed By: #### C BC ####[place] [id number] Hemoglobin (Bld) [Mass/Vol] 13.0 g/dL Low 13.5-17.5 [facility] Comment on above: Performed By: #### C BC ####[place] [id number] MCH (RBC) [Entitic mass] 29.5 pg Normal 27.0-35.0 [facility] Comment on above: Performed By: #### C BC ####[place] [id number] MCHC 33.6 % Normal 31.0-37.0 [facility] Comment on above: Performed By: #### C BC ####[address] [address] MCV (RBC) [Entitic vol] 87.9 fL Normal 80.0-100.0 [facility] Comment on above: Performed By: #### C BC ####[place] [id number] Platelet 235 x10*3/mcL Normal 150-450 [facility] Comment on above: Performed By: #### C BC ####[address] [address] Platelet mean volume (Bld) [Entitic vol] 7.1 fL Normal 6.7-10.6 [facility] Comment on above: Performed By: #### C BC ####[address] [address] RBC 4.40 x10*6/mcL Normal 4.30-5.80 [facility] Comment on above: Performed By: #### C BC ####[address] [address] WBC 9.4 x10*3/mcL Normal 4.5-11.0 [facility] Comment on above: Performed By: #### C BC ####[address] [address] CMPon 02-02-2024 Albumin [Mass/Vol] 3.7 g/dL Normal 3.2-4.9 [facility] Comment on above: Performed By: #### C OMP ####[address] [address] Albumin/Globulin [Mass ratio] 1.1 {ratio} Normal 1.1-2.2 [facility] Comment on above: Performed By: #### C OMP ####[address] [address] Alk Phos 91 IU/L Normal 32-91 [facility] Comment on above: Performed By: #### C OMP ####[address] [address] ALT [Catalytic activity/Vol] 21 U/L Normal 17-63 [facility] Comment on above: Performed By: #### C OMP ####[address] [address] AST [Catalytic activity/Vol] 27 U/L Normal 15-41 [facility] Comment on above: Performed By: #### C OMP ####[address] [address] Bili Total 0.4 mg/dL Normal 0.3-1.2 [facility] Comment on above: Performed By: #### C OMP ####[address] [address] Creatinine [Mass/Vol] 0.78 mg/dL Normal 0.61-1.24 [facility] Comment on above: Performed By: #### C OMP ####[address] [address] Protein [Mass/Vol] 7.2 g/dL Normal 6.5-8.1 [facility] Comment on above: Performed By: #### C OMP ####[address] [address] Urea nitrogen [Mass/Vol] 13 mg/dL Normal 8-26 [facility] Comment on above: Performed By: #### C OMP ####[address] [address] Urea nitrogen/Creatinine [Mass ratio] 16.7 mg/mg Normal 10.0-20.0 [facility] Comment on above: Performed By: #### C OMP ####[address] [address] Anion gap [Moles/Vol] 8 mmol/L Normal 4-12 [facility] Comment on above: Performed By: #### C OMP ####[address] [address] Calcium [Mass/Vol] 9.1 mg/dL Normal 8.5-10.3 [facility] Comment on above: Performed By: #### C OMP ####[address] [address] Chloride [Moles/Vol] 103 mmol/L Normal 98-110 [facility] Comment on above: Performed By: #### C OMP ####[address] [address] CO2 [Moles/Vol] 22 mmol/L Normal 22-32 [facility] Comment on above: Performed By: #### C OMP ####[address] [address] Glucose [Mass/Vol] 188 mg/dL High 70-99 [facility] Comment on above: Performed By: #### C OMP ####[address] [address] Potassium [Moles/Vol] 4.1 mmol/L Normal 3.4-4.8 [facility] Comment on above: Performed By: #### C OMP ####[address] [address] Sodium [Moles/Vol] 133 mmol/L Normal 133-142 [facility] Comment on above: Performed By: #### C OMP ####[address] [address] COV19 Rapidon 02-02-2024 LAB ONLY Result Called? No Normal [facility] Comment on above: Performed By: #### C [id number] ####[address] [address] Reason for Rapid Test Inpatient Normal [facility] Comment on above: Performed By: #### C [id number] ####[address] [address] SARS-CoV-2 (COVID-19) RNA RUTH+probe Ql (Unsp spec) Negative Normal Negative [facility] Comment on above: Result Comment: The 2019 novel coronavirus SARS-CoV-2 target nucleic acids are not detected.This test is for the detection of SARS-CoV-2 [...] information is necessary to determine patient infection status.ID NOW COVID-19 2.0 assay performed on the [employer] NOW Instrument is a rapid molecular in vitro diagnostic test utilizing an isothermal nucleic acid amplification technology (NAAT) intended for the qualitative detection of nucleic acid from SARS-CoV-2 in direct anterior nasal (nasal) or nasopharyngeal swab specimens from individuals with signs and symptoms of respiratory tract infection. Performed By: #### C D:[id number] ####[place] [id number] CRPon 02-02-2024 CRP 2.22 mg/dL High 0.00-0.75 [facility] Comment on above: Result Comment: CRP measurement is useful for assessment of non-specificINFLAMMATORY RESPONSE to infection or injury AND is asensitive MARKER of ACUTE INFLAMMATION including CARDIACRISK ASSESSMENT.CARDIAC patients with elevated CRP are POTENTIALLY at aHIGHER RISK OF FUTURE CARDIAC EVENTS. Performed By: #### C RP ####[place] [address] Crystalson 02-02-2024 Fluid For Crystal Analysis NoCrystals Seen Normal NoCrystals Seen [facility] Comment on above: Result Comment: Ster oid crystals may assume needle shapes mimicking CPPD and MSU crystals. Please review this patient's history for intra-articular steroid injection within two weeks prior to this crystal analysis. Performed By: #### F LCA ####[place] [address] Diff Autoon 02-02-2024 Baso Absolute 0.1 x10*3/mcL Normal 0.0-0.2 [facility] Comment on above: Performed By: #### . Automated Diff ####[place] [id number] Basophils/100 WBC (Bld) 1.0 % Normal 0.0-1.2 [facility] Comment on above: Performed By: #### . Automated Diff ####[place] [id number] Eos Absolute 0.3 x10*3/mcL Normal 0.0-0.4 [facility] Comment on above: Performed By: #### . Automated Diff ####[place] [id number] Eosinophils/100 WBC (Bld) 3.0 % Normal 0.0-6.1 [facility] Comment on above: Performed By: #### . Automated Diff ####[address] [address] Lymph Absolute 1.6 x10*3/mcL Normal 1.0-4.8 [facility] Comment on above: Performed By: #### . Automated Diff ####[address] [address] Lymphocytes/100 WBC (Bld) 17.4 % Low 27.2-40.8 [facility] Comment on above: Performed By: #### . Automated Diff ####[address] [address] [place] Absolute 0.7 x10*3/mcL Normal 0.3-1.1 [facility] Comment on above: Performed By: #### . Automated Diff ####[address] [address] Monocytes/100 WBC (Bld) 7.3 % Normal 4.7-13.9 [facility] Comment on above: Performed By: #### . Automated Diff ####[address] [address] Neutro Absolute 6.7 x10*3/mcL Normal 1.8-7.7 [facility] Comment on above: Performed By: #### . Automated Diff ####[place] [id number] Neutro Auto 71.3 % High 47.2-70.8 [facility] Comment on above: Performed By: #### . Automated Diff ####[place] [id number] ED Clinical Summaryon 2023 ED Clinical Summary Normal [facility] ED Note-Nursingon 02-02-2024 ED Note-Nursing Delay in IV antibiotics from pharmacy. Pharmacy called to check on it and they said they are currently working on them. Electronically signed by Melani Stewart 02/02/24 12:50 EDT Normal [facility] ED Note-Physicianon 02-02-20 24 ED Note-Physician Normal [facility] ESRon 02-02-2024 Sed Rate 30 mm/hr High 0-23 [facility] Comment on above: Performed By: #### E SR ####[address] [address] Lactic Acid, 3 Houron 2023 Lactic Acid, 3 Hr 1.2 mmol/L Normal 0.5-2.0 [facility] Comment on above: Order Comment: Order ed by Discern Rule. Performed By: #### C D:[id number] ####[address] [address] Lactic Acid, Initial w/Rflx 3 Houron 02-02-2024 Lactic Acid, Initial 2.2 mmol/L High 0.5-2.0 [facility] Comment on above: Performed By: #### C D:[id number] ####[address] [address] MRSA, PCRon 02-02-2024 LAB ONLY Result Called? No Normal [facility] Comment on above: Performed By: #### M RSAPC ####[address] [address] Methicillin Resistant Staph aurus(MRSA) Not detected Normal Not Detected [facility] Comment on above: Result Comment: Mut ations or polymorphisms in primer or probe binding regions may affect detection of new or unknown MRSA variants resulting in a false negative. The [employer] Xpert MRSA Assay is a qualitative in vitro diagnostic test designed for rapid detection of Methicillin-Resistant Staphylococcus aureus (MRSA) from nasal swabs in patients at risk for nasal colonization.The test utilizes automated real-time polymerase chain reaction (PCR) to detect MRSA DNA,because the detection of MRSA is dependent on the number of organisms present.A positive test result does not necessarily indicate the presence of viable organism. It is however,presumptive for the presence of MRSA.Test results might be affected by concurrent antibiotic therapy. Therefore, therapeutic success or failure cannot be assessed using this test because DNA might persist following antimicrobial therapy.Mutations or polymorphisms in primer or probe binding regions may affect detection of new or unknown MRSA variants resulting in a false negative result.Results from the Xpert MRSA Assay should be interpreted in conjunction with other laboratory and clinical data available to the clinician. Performed By: #### M RSAPC ####[place] [id number] POC Glucose Randomon 024 Glucose [Mass/Vol] 171 mg/dL High 70-99 [facility] Comment on above: Performed By: #### C [id number] ####[address] [address] Procalcitonin Levelon 2023 Procalcitonin Lvl <0.05 Normal <=0.49 [facility] Comment on above: Result Comment: < 0. 50 ng/mL: Low Risk of severe sepsis and/or septic shock.>2.00 ng/mL: High Risk of severe sepsis and/or septic shock.Concentrations under 0.5 ng/mL do not exclude local infections or systemic infections in their initial stages (e.g. under six hours from onset of illness). PCT concentrations between 0.50 and 2.00 ng/mL should be interpreted with consideration of the patient?s history. In this range, it is recommended to retest PCT within 6 to 24 hours. Performed By: #### C [id number] ####[address] [address] UA w Culture if Indon 2023 Color (U) Light-Yellow Normal Yellow [facility] Comment on above: Performed By: #### U CI ####[address] [address] Ketones Ql (U) Negative Normal Negative [facility] Comment on above: Performed By: #### U CI ####[address] [address] UA Blood Negative Normal Negative [facility] Comment on above: Performed By: #### U CI ####[address] [place] [address] UA Clarity Clear Normal Clear [facility] Comment on above: Performed By: #### U CI ####[address] [place] [address] UA Glucose Normal Normal Negative [facility] Comment on above: Performed By: #### U CI ####[address] [place] [address] UA Leukocyte Esterase Negative Normal Negative [facility] Comment on above: Performed By: #### U CI ####[address] [place] [address] UA Nitrite Negative Normal Negative [facility] Comment on above: Performed By: #### U CI ####[address] [place] [address] UA pH 6.5 Normal 4.5 - 7.8 [facility] Comment on above: Performed By: #### U CI ####[address] [place] [address] UA Protein Negative Normal Negative [facility] Comment on above: Performed By: #### U CI ####[address] [place] [address] UA Source Clean Catch Normal [facility] Comment on above: Performed By: #### U CI ####[address] [place] [address] UA Spec Grav 1.016 Normal 1.003-1.035 [facility] Comment on above: Performed By: #### U CI ####[address] [place] [address] UA Urobilinogen Normal Normal 0.2 - 1.0 [facility] Comment on above: Performed By: #### U CI ####[address] [address] Urobilinogen (U) [Mass/Vol] Negative Normal Negative [facility] Comment on above: Performed By: #### U ####[address] [address] [place] [address] MRI KNEE RIGHT WO CONTRASTon 01-01-2024 MRI KNEE RIGHT WO CONTRAST EXAMINATION: MRI OF THE RIGHT KNEE WITHOUT CONTRAST, 12/29/2023 1:36 pm TECHNIQUE: Multiplanar multisequence MRI of the right knee was performed without the administration of intravenous contrast. COMPARISON: Radiographs dated 11/11/2013, CT dated 11/05/2023 HISTORY: ORDERING SYSTEM PROVIDED HISTORY: Aftercare following joint replacement surgery, unspecified joint FINDINGS: The examination is significantly limited due to the presence of a total knee arthroplasty. There is a focal full-thickness defect within the quadriceps tendon measuring 2.8 x 2.4 cm. There is a large joint effusion with diffuse synovitis. This joint fluid extends through the extensor mechanism defect and into the subcutaneous tissues anteriorly. There are foci of susceptibility artifact throughout the collection and within the subcutaneous tissues. In total this collection measures approximately 9.2 cm in transverse dimension and 4.1 cm in AP dimension. The suprapatellar bursa extends off of the superior aspect of the exam and therefore cannot be accurately measured. There is adjacent subcutaneous edema. 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 There is increased STIR signal within the distal femur and tibia adjacent to the arthroplasty. There is suspected associated decreased T1 marrow signal. There is focal T2 hyperintensity within the proximal tibia undermining the arthroplasty somewhat in the midline. There is increased T2 signal within the patella undermining the implant. Multifocal muscular fatty atrophy is noted. There is muscular edema within the vastus medialis and lateralis. IMPRESSION: Findings suspicious for septic arthritis and osteomyelitis. Aspiration is recommended to exclude infection. Focal full-thickness defect within the quadriceps tendon. Joint fluid and synovitis extends through the defect into the subcutaneous tissues, as detailed above. Significantly limited exam due to metallic susceptibility artifact. Interpreted by: Dell Calle DO Houser, Joshua R, MD Signed by: Ernesto Charles MD 01/01/24 Recipients: Shaikh Grove MD - Fax Johnny Cespedes MD - Fax Final result Normal [facility] Physician Referralon 024 Physician Referral [id number] #[id number] Normal [facility] C-Reactive Proteinon 024 CRP High sensitivity method [Mass/Vol] 32.1 mg/L High 0.0 - 5.0 mg/L [facility] Interpretation and review of laboratory results Abnormal [facility] CRP [Mass/Vol] 32.1 mg/L High 0.0-5.0 [facility] Comment on above: Performed By: #### S ED, CRP #### [facility] [address] [place] [address] Treer: Oliver Cabrera MD Sedimentation Rateon 024 ESR Photometric method (Bld) [Velocity] 2 [facility] Sedimentation Rate 2 mm/Hr Normal 0-20 [facility] Comment on above: Performed By: #### S ED, CRP #### [facility] [address] [place] [address] Treer: Oliver Cabrera MD Basic Metabolic Panelon 10-19 Anion gap [Moles/Vol] 12.2 mmol/L Normal 6.0-15.0 [facility] Comment on above: Performed By: #### C RP, CUBLD, CBC, BMP, LACTIC #### [facility] [address] [place] [address] [place] Calcium [Mass/Vol] 9.3 mg/dL Normal 8.6-10.3 [facility] Comment on above: Performed By: #### C RP, CUBLD, CBC, BMP, LACTIC #### [facility] [address] [place] [address] [place] Chloride [Moles/Vol] 102 mmol/L Normal 98-107 [facility] Comment on above: Performed By: #### C RP, CUBLD, CBC, BMP, LACTIC #### [facility] [address] [place] [address] [place] CO2 [Moles/Vol] 25.8 mmol/L Normal 21.0-31.0 [facility] Comment on above: Performed By: #### C RP, CUBLD, CBC, BMP, LACTIC #### [facility] [address] Creatinine [Mass/Vol] 0.74 mg/dL Normal 0.70-1.30 [facility] Comment on above: Performed By: #### C RP, CUBLD, CBC, BMP, LACTIC #### [facility] [address] [place] [address] [place] Creatinine Clr Calc Pharmacy 141.03 [facility] Comment on above: Result Comment: PERF ORMED BY: [place] [address] PATHOLOGIST TREASURY CONSULTANT AMEENA HERNADEZ M.D. Performed By: #### C RP, CUBLD, CBC, BMP, LACTIC #### [facility] [address] [place] [address] [place] GFR/1.73 sq M.predicted MDRD (S/P/Bld) [Vol rate/Area] mL/min/{1.73_m2} [facility] Comment on above: Performed By: #### C RP, CUBLD, CBC, BMP, LACTIC #### [address] Glucose [Mass/Vol] 61 mg/dL Low 70-100 [facility] Comment on above: Result Comment: [place] Glucose Reference Range is dependent on time and content of last meal. Glucose of more than 200 mg/dL in a nonstressed, ambulatory subject supports the diagnosis of Diabetes Mellitus. ADA recommended reference range Performed By: #### C RP, CUBLD, CBC, BMP, LACTIC #### [facility] [address] [place] [address] [place] Potassium [Moles/Vol] 4.0 mmol/L Normal 3.5-5.1 [facility] Comment on above: Performed By: #### C RP, CUBLD, CBC, BMP, LACTIC #### [facility] [address] Sodium [Moles/Vol] 136 mmol/L Normal 136-145 [facility] Comment on above: Performed By: #### C RP, CUBLD, CBC, BMP, LACTIC #### [facility] [address] [place] [address] Urea nitrogen [Mass/Vol] 19 mg/dL Normal 7-25 [facility] Comment on above: Performed By: #### C RP, CUBLD, CBC, BMP, LACTIC #### [facility] [address] [place] [address] Blood Cultureon 11-04-2023 Bacteria identified Cx Nom (Bld) NO GROWTH 5 DAYS PERFORMED BY: [place] [address] PATHOLOGIST TREASURY CONSULTANT AMEENA HERNADEZ M.D. [facility] Comment on above: Performed By: #### C RP, CUBLD, CBC, BMP, LACTIC #### [address] Bacteria identified Cx Nom (Bld) NO GROWTH 5 DAYS PERFORMED BY: [place] [address] PATHOLOGIST TREASURY CONSULTANT AMEENA HERNADEZ M.D. [facility] Comment on above: Performed By: #### C RP, CUBLD, CBC, BMP, LACTIC #### [address] C-Reactive Proteinon 024 C-Reactive Protein 1.8 mg/dL High 0.0-0.5 [facility] Comment on above: Result Comment: PERF ORMED BY: [place] [address] PATHOLOGIST TREASURY CONSULTANT AMEENA HERNADEZ M.D. Performed By: #### C RP, CUBLD, CBC, BMP, LACTIC #### [address] knee LT w conon CT knee LT w con [facility] [place] [address] [place] [address] CT Scan Report Signed Patient: Joie Lu MR#: [id number] : 1955 Acct:[id number] Age/Sex: 68 / M ADM Date: 11/04/23 Loc: ER Room: Type: [facility] ER Attending Dr: Copies to: Cara Egan APRN Ordering Provider: Cara Egan APRN Date of Service: 11/04/23 CT/CT knee LT w con: swelling/ pain CT left knee with CONTRAST WITH 3D RECONSTRUCTIONS: CLINICAL HISTORY: Left knee with blackened skin since Thursday. COMPARISON: Left knee series 05/23/2019 TECHNIQUE: Spiral axial enhanced images were obtained through the left knee. Sagittal, coronal reconstructions were also reviewed. This CT exam was performed using one or more following dose reduction techniques: Automated exposure control, adjustment of the mA and/or kV according to patient size, or use of iterative reconstruction technique. FINDINGS: Examination is suboptimal due to streak hardware artifact from the patient's knee prosthesis. A large collection with peripheral enhancement is identified involving the medial aspect of the left knee partially visualized on today's study measuring 7.9 x 5.9 x 5.2 cm in greatest axial dimensions. There is surrounding soft tissue swelling. This may communicate with the joint space possibly representing a large Sutton's cyst. Anteriorly and posteriorly appears to be a joint effusion with peripheral enhancement. There appears be a lucency involving the tibial component suggestive of hardware loosening. Finding is similar to the 2019 study. Musculature appears atrophic. Soft tissue swelling is noted. Arterial vessels demonstrates calcification without critical stenosis or occlusion. No pseudoaneurysm is seen. CT/CT knee LT w con IMPRESSION: A LARGE COLLECTION WITH PERIPHERAL ENHANCEMENT IS IDENTIFIED INVOLVING THE MEDIAL ASPECT OF THE LEFT KNEE PARTIALLY EVALUATED DUE TO STREAK ARTIFACT FROM THE PATIENT'S PROSTHESIS. THIS MEASURES APPROXIMATELY 7.9 X 5.9 X 5.2 CM WITH POSSIBLE COMMUNICATION WITHIN THE JOINT SPACE POSSIBLY REPRESENTING A SUTTON'S CYST. INFECTIOUS PROCESS CANNOT BE EXCLUDED. THERE APPEARS TO BE A JOINT EFFUSION WITH PERIPHERAL ENHANCEMENT SEEN ANTERIORLY AND POSTERIORLY. THIS APPEARS TO BE SUPERIMPOSED ON CT EVIDENCE OF HARDWARE LOOSENING INVOLVING THE TIBIAL COMPONENT ALSO SEEN ON THE 2019 STUDY. ORTHOPEDIC SURGERY CONSULTATION IS SUGGESTED FOR FURTHER MANAGEMENT.. Impression dictated by: Wilfrido Alanis Jr., D.O.11/04/2023 8:30 PM Dictation Location: [place] [address] Transcribed By: [facility] 11/04/232029 Dictated By: Wilfrido Alanis Jr, DO 11/04/232004 Signed By: 11/04/232029 Normal [facility] Complete Blood Count Auto Di ffon 11-04-2023 Basophils (Bld) [#/Vol] 0.0 10*3/uL Normal 0.0-0.2 [facility] Comment on above: Result Comment: PERF ORMED BY: [place] [address] PATHOLOGIST TREASURY CONSULTANT AMEENA HERNADEZ M.D. Performed By: #### C RP, CUBLD, CBC, BMP, LACTIC #### [address] Basophils/100 WBC (Bld) 0.3 % Normal . [facility] Comment on above: Performed By: #### C RP, CUBLD, CBC, BMP, LACTIC #### [address] Eosinophils (Bld) [#/Vol] 0.1 10*3/uL Normal 0.0-0.45 [facility] Comment on above: Performed By: #### C RP, CUBLD, CBC, BMP, LACTIC #### [address] Eosinophils/100 WBC (Bld) 0.9 % Normal . [facility] Comment on above: Performed By: #### C RP, CUBLD, CBC, BMP, LACTIC #### [address] Erythrocyte distribution width (RBC) [Ratio] 13.9 % Normal 12.0-14.8 [facility] Comment on above: Performed By: #### C RP, CUBLD, CBC, BMP, LACTIC #### [address] Hematocrit (Bld) [Volume fraction] 37.4 % Low 38.8-50.0 [facility] Comment on above: Performed By: #### C RP, CUBLD, CBC, BMP, LACTIC #### [place] [address] [place] Hemoglobin (Bld) [Mass/Vol] 12.5 g/dL Low 13.0-17.0 [facility] Comment on above: Performed By: #### C RP, CUBLD, CBC, BMP, LACTIC #### [address] Lymphocytes (Bld) [#/Vol] 2.0 10*3/uL Normal 1.00-4.8 [facility] Comment on above: Performed By: #### C RP, CUBLD, CBC, BMP, LACTIC #### [address] Lymphocytes/100 WBC (Bld) 15.9 % Normal . [facility] Comment on above: Performed By: #### C RP, CUBLD, CBC, BMP, LACTIC #### [address] MCH (RBC) [Entitic mass] 28.6 pg Normal 27.5-35.2 [facility] Comment on above: Performed By: #### C RP, CUBLD, CBC, BMP, LACTIC #### [address] MCV (RBC) [Entitic vol] 85.9 fL Normal 83.5-101 [facility] Comment on above: Performed By: #### C RP, CUBLD, CBC, BMP, LACTIC #### [address] Mean Corpuscular HGB Conc 33.3 g/dL Normal 32.5-35.6 [facility] Comment on above: Performed By: #### C RP, CUBLD, CBC, BMP, LACTIC #### [address] Monocytes (Bld) [#/Vol] 1.0 10*3/uL High 0.0-0.8 [facility] Comment on above: Performed By: #### C RP, CUBLD, CBC, BMP, LACTIC #### [address] Monocytes/100 WBC (Bld) 18.26 % Normal 0.00-20.00 [facility] Comment on above: Performed By: #### C RP, CUBLD, CBC, BMP, LACTIC #### [address] Monocytes/100 WBC (Bld) 8.1 % Normal . [facility] Comment on above: Performed By: #### C RP, CUBLD, CBC, BMP, LACTIC #### [address] Neutrophils (Bld) [#/Vol] 9.3 10*3/uL High 1.8-7.7 [facility] Comment on above: Performed By: #### C RP, CUBLD, CBC, BMP, LACTIC #### [address] Neutrophils/100 WBC (Bld) 74.8 % Normal . [facility] Comment on above: Performed By: #### C RP, CUBLD, CBC, BMP, LACTIC #### [address] NRBC% 0.0 /100{WBC} Normal 0-0.5 [facility] Comment on above: Performed By: #### C RP, CUBLD, CBC, BMP, LACTIC #### [address] Platelet mean volume (Bld) [Entitic vol] 6.8 fL Normal 6.6-10.1 [facility] Comment on above: Performed By: #### C RP, CUBLD, CBC, BMP, LACTIC #### [address] Platelets (Bld) [#/Vol] 221 10*3/uL Normal 150-450 [facility] Comment on above: Performed By: #### C RP, CUBLD, CBC, BMP, LACTIC #### [address] RBC (Bld) [#/Vol] 4.36 10*6/uL Normal 3.90-5.60 [facility] Comment on above: Performed By: #### C RP, CUBLD, CBC, BMP, LACTIC #### [facility] [address] WBC (Bld) [#/Vol] 12.4 10*3/uL High 4.1-10.5 [facility] Comment on above: Performed By: #### C RP, CUBLD, CBC, BMP, LACTIC #### [facility] [address] Erythrocyte Sedimentation Ra yossi 11-04-2023 ESR (Bld) [Velocity] 15 mm/h Normal 0-19 [facility] Comment on above: Result Comment: PERF ORMED BY: [place] [address] PATHOLOGIST TREASURY CONSULTANT AMEENA HERNADEZ M.D. Performed By: #### E SR #### [facility] [address] [place] [address] Lactic Acidon 11-04-2023 Lactate [Moles/Vol] 1.8 mmol/L Normal 0.5-2.2 [facility] Comment on above: Result Comment: PERF ORMED BY: [place] [address] PATHOLOGIST TREASURY CONSULTANT AMEENA HERNADEZ M.D. Performed By: #### C RP, CUBLD, CBC, BMP, LACTIC #### [facility] [address] [place] [address] CRPon 11-03-2023 CRP 1.88 mg/dL High 0.00-0.75 [facility] Comment on above: Result Comment: CRP measurement is useful for assessment of non-specificINFLAMMATORY RESPONSE to infection or injury AND is asensitive MARKER of ACUTE INFLAMMATION including CARDIACRISK ASSESSMENT.CARDIAC patients with elevated CRP are POTENTIALLY at aHIGHER RISK OF FUTURE CARDIAC EVENTS. Performed By: #### C RP ####[address] [place] [address] ESRon 11-03-2023 Sed Rate 14 mm/hr Normal 0-23 [facility] Comment on above: Performed By: #### E SR ####[address] [address] [place] [address] Infectious Disease Office/Cl inic Noteon 11-03-2023 Infectious Disease Office/Clinic Note Normal [facility] Provider Letteron 11-03-2023 Provider Letter Normal [facility] Long-term Care Office/Clinic Noteon 09-01-2023 Long-term Care Office/Clinic Note Normal [facility] .eGFRon 08-31-2023 GFR/1.73 sq M.predicted MDRD (S/P/Bld) [Vol rate/Area] mL/min/{1.73_m2} Normal >=60 [facility] Comment on above: Result Comment: [facility] have implemented the eGFR calculation approach that does not have a coefficient for race and that conforms to the NKF-ASN Task Force Recommendations.Stages of Chronic Kidney Disease GFRStage 3a Mild to moderate loss of kidney function 59 to 45Stage 3b Moderate to severe loss of kidney function 44 to 33Stage 4 Severe loss of kidney function 29 to 15Stage 5 Kidney failure Less than 15GFR calculated using the CKD-Epi Creatinine Equation (2020):eGFR = 142 X min(SCr/?, 1)? X max(SCr /?, 1)-1.200 X 0.9938Age X 1.012 [if female]Abbreviations/Units:eGFR (estimated glomerular filtration rate) = mL/min/1.73 m2SCr (standardized serum creatinine) = mg/dL? = 0.7 (females) or 0.9 (males)? = -0.241 (females) or -0.302 (males)min = indicates the minimum of SCr/? or 1max = indicates the maximum of SCr/? or 1Age = years Performed By: #### E GFR ####[address] [address] CBC w/ Diffon 08-31-2023 Erythrocyte distribution width (RBC) [Ratio] 13.9 % Normal 11.6-14.8 [facility] Comment on above: Performed By: #### C BC ####[address] [address] Hematocrit (Bld) [Volume fraction] 36.6 % Low 41.0-53.0 [facility] Comment on above: Performed By: #### C BC ####[address] [address] Hemoglobin (Bld) [Mass/Vol] 12.2 g/dL Low 13.5-17.5 [facility] Comment on above: Performed By: #### C BC ####[address] [address] MCH (RBC) [Entitic mass] 30.1 pg Normal 27.0-35.0 [facility] Comment on above: Performed By: #### C BC ####[address] [address] MCHC 33.3 % Normal 31.0-37.0 [facility] Comment on above: Performed By: #### C BC ####[address] [address] MCV (RBC) [Entitic vol] 90.4 fL Normal 80.0-100.0 [facility] Comment on above: Performed By: #### C BC ####[address] [address] Platelet 138 x10*3/mcL Low 150-450 [facility] Comment on above: Performed By: #### C BC ####[address] [address] Platelet mean volume (Bld) [Entitic vol] 8.4 fL Normal 6.7-10.6 [facility] Comment on above: Performed By: #### C BC ####[address] [address] RBC 4.05 x10*6/mcL Low 4.30-5.80 [facility] Comment on above: Performed By: #### C BC ####[address] [address] WBC 6.9 x10*3/mcL Normal 4.5-11.0 [facility] Comment on above: Performed By: #### C BC ####[address] [place] [address] CMPon 08-31-2023 Albumin [Mass/Vol] 3.7 g/dL Normal 3.2-4.9 [facility] Comment on above: Performed By: #### C OMP ####[address] [address] Albumin/Globulin [Mass ratio] 1.2 {ratio} Normal 1.1-2.2 [facility] Comment on above: Performed By: #### C OMP ####[address] [address] Alk Phos 83 IU/L Normal 32-91 [facility] Comment on above: Performed By: #### C OMP ####[address] [address] ALT [Catalytic activity/Vol] 14 U/L Low 17-63 [facility] Comment on above: Performed By: #### C OMP ####[address] [address] Anion gap [Moles/Vol] 11 mmol/L Normal 7-17 [facility] Comment on above: Performed By: #### C OMP ####[address] [address] AST [Catalytic activity/Vol] 16 U/L Normal 15-41 [facility] Comment on above: Performed By: #### C OMP ####[address] [address] Bili Total 0.3 mg/dL Normal 0.3-1.2 [facility] Comment on above: Performed By: #### C OMP ####[address] [address] Calcium [Mass/Vol] 8.8 mg/dL Normal 8.5-10.3 [facility] Comment on above: Performed By: #### C OMP ####[address] [address] Chloride [Moles/Vol] 99 mmol/L Normal 98-110 [facility] Comment on above: Performed By: #### C OMP ####[address] [address] CO2 [Moles/Vol] 26 mmol/L Normal 22-32 [facility] Comment on above: Performed By: #### C OMP ####[address] [address] Creatinine [Mass/Vol] 0.78 mg/dL Normal 0.61-1.24 [facility] Comment on above: Performed By: #### C OMP ####[address] [address] Glucose [Mass/Vol] 211 mg/dL High 70-99 [facility] Comment on above: Performed By: #### C OMP ####[address] [address] Potassium [Moles/Vol] 4.3 mmol/L Normal 3.4-4.8 [facility] Comment on above: Performed By: #### C OMP ####[address] [address] Protein [Mass/Vol] 6.7 g/dL Normal 6.5-8.1 [facility] Comment on above: Performed By: #### C OMP ####[address] [address] Sodium [Moles/Vol] 132 mmol/L Low 133-142 [facility] Comment on above: Performed By: #### C OMP ####[address] [address] Urea nitrogen [Mass/Vol] 19 mg/dL Normal 8-26 [facility] Comment on above: Performed By: #### C OMP ####[address] [address] Urea nitrogen/Creatinine [Mass ratio] 24.4 mg/mg High 10.0-20.0 [facility] Comment on above: Performed By: #### C OMP ####[address] [address] CRPon 08-31-2023 CRP 0.61 mg/dL Normal 0.00-0.75 [facility] Comment on above: Result Comment: CRP measurement is useful for assessment of non-specificINFLAMMATORY RESPONSE to infection or injury AND is asensitive MARKER of ACUTE INFLAMMATION including CARDIACRISK ASSESSMENT.CARDIAC patients with elevated CRP are POTENTIALLY at aHIGHER RISK OF FUTURE CARDIAC EVENTS. Performed By: #### C RP ####[address] [address] Diff Autoon 08-31-2023 Baso Absolute 0.1 x10*3/mcL Normal 0.0-0.2 [facility] Comment on above: Performed By: #### . Automated Diff ####[address] [address] Basophils/100 WBC (Bld) 1.2 % Normal 0.0-1.2 [facility] Comment on above: Performed By: #### . Automated Diff ####[address] [address] Eos Absolute 0.5 x10*3/mcL High 0.0-0.4 [facility] Comment on above: Performed By: #### . Automated Diff ####[address] [address] Eosinophils/100 WBC (Bld) 8.0 % High 0.0-6.1 [facility] Comment on above: Performed By: #### . Automated Diff ####[address] [address] Lymph Absolute 1.5 x10*3/mcL Normal 1.0-4.8 [facility] Comment on above: Performed By: #### . Automated Diff ####[address] [address] Lymphocytes/100 WBC (Bld) 21.2 % Low 27.2-40.8 [facility] Comment on above: Performed By: #### . Automated Diff ####[address] [address] [place] Absolute 0.7 x10*3/mcL Normal 0.3-1.1 [facility] Comment on above: Performed By: #### . Automated Diff ####[place] [address] Monocytes/100 WBC (Bld) 10.1 % Normal 4.7-13.9 [facility] Comment on above: Performed By: #### . Automated Diff ####[place] [address] Neutro Absolute 4.1 x10*3/mcL Normal 1.8-7.7 [facility] Comment on above: Performed By: #### . Automated Diff ####[place] [address] Neutro Auto 59.5 % Normal 47.2-70.8 [facility] Comment on above: Performed By: #### . Automated Diff ####[place] [address] ESRon 08-31-2023 Sed Rate 10 mm/hr Normal 0-23 [facility] Comment on above: Performed By: #### E SR ####[place] [address] Infectious Disease Office/Cl inic Noteon 08-31-2023 Infectious Disease Office/Clinic Note Normal [facility] Vanco Troughon 08-31-2023 Vanco Trough 15.70 mcg/mL High 10.00-15.00 [facility] Comment on above: Performed By: #### V ANCT ####[place] [address] .eGFRon 08-27-2023 GFR/1.73 sq M.predicted MDRD (S/P/Bld) [Vol rate/Area] mL/min/{1.73_m2} Normal >=60 [facility] Comment on above: Result Comment: [facility] have implemented the eGFR calculation approach that does not have a coefficient for race and that conforms to the NKF-ASN Task Force Recommendations.Stages of Chronic Kidney Disease GFRStage 3a Mild to moderate loss of kidney function 59 to 45Stage 3b Moderate to severe loss of kidney function 44 to 33Stage 4 Severe loss of kidney function 29 to 15Stage 5 Kidney failure Less than 15GFR calculated using the CKD-Epi Creatinine Equation (2020):eGFR = 142 X min(SCr/?, 1)? X max(SCr /?, 1)-1.200 X 0.9938Age X 1.012 [if female]Abbreviations/Units:eGFR (estimated glomerular filtration rate) = mL/min/1.73 m2SCr (standardized serum creatinine) = mg/dL? = 0.7 (females) or 0.9 (males)? = -0.241 (females) or -0.302 (males)min = indicates the minimum of SCr/? or 1max = indicates the maximum of SCr/? or 1Age = years Performed By: #### E GFR ####[place] [address] BUNon 08-27-2023 Urea nitrogen [Mass/Vol] 16 mg/dL Normal 8-26 [facility] Comment on above: Performed By: #### B UN ####[place] [id number] Creatinineon 08-27-2023 Creatinine [Mass/Vol] 0.76 mg/dL Normal 0.61-1.24 [facility] Comment on above: Performed By: #### C CORNELIO ####[address] [address] Vanco Troughon 08-27-2023 Vanco Trough 11.40 mcg/mL Normal 10.00-15.00 [facility] Comment on above: Performed By: #### V ANCT ####[place] [address] .eGFRon 08-24-2023 GFR/1.73 sq M.predicted MDRD (S/P/Bld) [Vol rate/Area] mL/min/{1.73_m2} Normal >=60 [facility] Comment on above: Result Comment: [facility] have implemented the eGFR calculation approach that does not have a coefficient for race and that conforms to the NKF-ASN Task Force Recommendations.Stages of Chronic Kidney Disease GFRStage 3a Mild to moderate loss of kidney function 59 to 45Stage 3b Moderate to severe loss of kidney function 44 to 33Stage 4 Severe loss of kidney function 29 to 15Stage 5 Kidney failure Less than 15GFR calculated using the CKD-Epi Creatinine Equation (2020):eGFR = 142 X min(SCr/?, 1)? X max(SCr /?, 1)-1.200 X 0.9938Age X 1.012 [if female]Abbreviations/Units:eGFR (estimated glomerular filtration rate) = mL/min/1.73 m2SCr (standardized serum creatinine) = mg/dL? = 0.7 (females) or 0.9 (males)? = -0.241 (females) or -0.302 (males)min = indicates the minimum of SCr/? or 1max = indicates the maximum of SCr/? or 1Age = years Performed By: #### E GFR ####[place] [address] CBC w/ Diffon 08-24-2023 Erythrocyte distribution width (RBC) [Ratio] 14.0 % Normal 11.6-14.8 [facility] Comment on above: Performed By: #### C BC ####[place] [id number] Hematocrit (Bld) [Volume fraction] 36.3 % Low 41.0-53.0 [facility] Comment on above: Performed By: #### C BC ####[place] [address] Hemoglobin (Bld) [Mass/Vol] 12.1 g/dL Low 13.5-17.5 [facility] Comment on above: Performed By: #### C BC ####[place] [id number] MCH (RBC) [Entitic mass] 30.6 pg Normal 27.0-35.0 [facility] Comment on above: Performed By: #### C BC ####[place] [id number] MCHC 33.4 % Normal 31.0-37.0 [facility] Comment on above: Performed By: #### C BC ####[address] [address] MCV (RBC) [Entitic vol] 91.8 fL Normal 80.0-100.0 [facility] Comment on above: Performed By: #### C BC ####[address] [address] Platelet 127 x10*3/mcL Low 150-450 [facility] Comment on above: Performed By: #### C BC ####[address] [address] Platelet mean volume (Bld) [Entitic vol] 8.3 fL Normal 6.7-10.6 [facility] Comment on above: Performed By: #### C BC ####[address] [address] RBC 3.95 x10*6/mcL Low 4.30-5.80 [facility] Comment on above: Performed By: #### C BC ####[address] [address] WBC 6.8 x10*3/mcL Normal 4.5-11.0 [facility] Comment on above: Performed By: #### C BC ####[address] [address] CMPon 08-24-2023 Albumin [Mass/Vol] 3.5 g/dL Normal 3.2-4.9 [facility] Comment on above: Performed By: #### C OMP ####[address] [address] Albumin/Globulin [Mass ratio] 1.1 {ratio} Normal 1.1-2.2 [facility] Comment on above: Performed By: #### C OMP ####[address] [address] Alk Phos 86 IU/L Normal 32-91 [facility] Comment on above: Performed By: #### C OMP ####[place] [id number] ALT [Catalytic activity/Vol] 18 U/L Normal 17-63 [facility] Comment on above: Performed By: #### C OMP ####[address] [address] Anion gap [Moles/Vol] 14 mmol/L Normal 7-17 [facility] Comment on above: Performed By: #### C OMP ####[address] [address] AST [Catalytic activity/Vol] 20 U/L Normal 15-41 [facility] Comment on above: Performed By: #### C OMP ####[address] [address] Bili Total 0.2 mg/dL Low 0.3-1.2 [facility] Comment on above: Performed By: #### C OMP ####[address] [address] Calcium [Mass/Vol] 9.0 mg/dL Normal 8.5-10.3 [facility] Comment on above: Performed By: #### C OMP ####[address] [address] Chloride [Moles/Vol] 98 mmol/L Normal 98-110 [facility] Comment on above: Performed By: #### C OMP ####[address] [address] CO2 [Moles/Vol] 26 mmol/L Normal 22-32 [facility] Comment on above: Performed By: #### C OMP ####[address] [address] Creatinine [Mass/Vol] 0.80 mg/dL Normal 0.61-1.24 [facility] Comment on above: Performed By: #### C OMP ####[address] [address] Glucose [Mass/Vol] 243 mg/dL High 70-99 [facility] Comment on above: Performed By: #### C OMP ####[address] [address] Potassium [Moles/Vol] 4.8 mmol/L Normal 3.4-4.8 [facility] Comment on above: Performed By: #### C OMP ####[address] [address] Protein [Mass/Vol] 6.8 g/dL Normal 6.5-8.1 [facility] Comment on above: Performed By: #### C OMP ####[address] [address] Sodium [Moles/Vol] 133 mmol/L Normal 133-142 [facility] Comment on above: Performed By: #### C OMP ####[place] [id number] Urea nitrogen [Mass/Vol] 17 mg/dL Normal 8-26 [facility] Comment on above: Performed By: #### C OMP ####[place] [id number] Urea nitrogen/Creatinine [Mass ratio] 21.2 mg/mg High 10.0-20.0 [facility] Comment on above: Performed By: #### C OMP ####[address] [address] CRPon 08-24-2023 CRP 0.98 mg/dL High 0.00-0.75 [facility] Comment on above: Result Comment: CRP measurement is useful for assessment of non-specificINFLAMMATORY RESPONSE to infection or injury AND is asensitive MARKER of ACUTE INFLAMMATION including CARDIACRISK ASSESSMENT.CARDIAC patients with elevated CRP are POTENTIALLY at aHIGHER RISK OF FUTURE CARDIAC EVENTS. Performed By: #### C RP ####[address] [address] Diff Autoon 08-24-2023 Baso Absolute 0.1 x10*3/mcL Normal 0.0-0.2 [facility] Comment on above: Performed By: #### . Automated Diff ####[place] [id number] Basophils/100 WBC (Bld) 1.1 % Normal 0.0-1.2 [facility] Comment on above: Performed By: #### . Automated Diff ####[address] [address] Eos Absolute 0.6 x10*3/mcL High 0.0-0.4 [facility] Comment on above: Performed By: #### . Automated Diff ####[address] [address] Eosinophils/100 WBC (Bld) 9.0 % High 0.0-6.1 [facility] Comment on above: Performed By: #### . Automated Diff ####[address] [address] Lymph Absolute 1.2 x10*3/mcL Normal 1.0-4.8 [facility] Comment on above: Performed By: #### . Automated Diff ####[address] [address] Lymphocytes/100 WBC (Bld) 18.2 % Low 27.2-40.8 [facility] Comment on above: Performed By: #### . Automated Diff ####[address] [address] [place] Absolute 0.6 x10*3/mcL Normal 0.3-1.1 [facility] Comment on above: Performed By: #### . Automated Diff ####[address] [address] Monocytes/100 WBC (Bld) 8.1 % Normal 4.7-13.9 [facility] Comment on above: Performed By: #### . Automated Diff ####[address] [address] Neutro Absolute 4.3 x10*3/mcL Normal 1.8-7.7 [facility] Comment on above: Performed By: #### . Automated Diff ####[address] [address] Neutro Auto 63.6 % Normal 47.2-70.8 [facility] Comment on above: Performed By: #### . Automated Diff ####[address] [address] ESRon 08-24-2023 Sed Rate 13 mm/hr Normal 0-23 [facility] Comment on above: Performed By: #### E SR ####[address] [address] Vanco Troughon 08-24-2023 Vanco Trough 14.40 mcg/mL Normal 10.00-15.00 [facility] Comment on above: Performed By: #### V ANCT ####[address] [address] Vanco Troughon 08-21-2023 Vanco Trough 35.70 mcg/mL High 10.00-15.00 [facility] Comment on above: Performed By: #### V ANCT ####[address] [address] .eGFRon 08-20-2023 GFR/1.73 sq M.predicted MDRD (S/P/Bld) [Vol rate/Area] mL/min/{1.73_m2} Normal >=60 [facility] Comment on above: Result Comment: [facility] have implemented the eGFR calculation approach that does not have a coefficient for race and that conforms to the NKF-ASN Task Force Recommendations.Stages of Chronic Kidney Disease GFRStage 3a Mild to moderate loss of kidney function 59 to 45Stage 3b Moderate to severe loss of kidney function 44 to 33Stage 4 Severe loss of kidney function 29 to 15Stage 5 Kidney failure Less than 15GFR calculated using the CKD-Epi Creatinine Equation (2020):eGFR = 142 X min(SCr/?, 1)? X max(SCr /?, 1)-1.200 X 0.9938Age X 1.012 [if female]Abbreviations/Units:eGFR (estimated glomerular filtration rate) = mL/min/1.73 m2SCr (standardized serum creatinine) = mg/dL? = 0.7 (females) or 0.9 (males)? = -0.241 (females) or -0.302 (males)min = indicates the minimum of SCr/? or 1max = indicates the maximum of SCr/? or 1Age = years Performed By: #### E GFR ####[address] [address] C Fungalon 08-20-2023 C Fungal ------- Final No growth at 4 weeks. Normal [facility] Comment on above: Performed By: #### F C ####[address] [address] CMPon 08-20-2023 Albumin [Mass/Vol] 3.4 g/dL Normal 3.2-4.9 [facility] Comment on above: Performed By: #### C OMP ####[address] [address] Albumin/Globulin [Mass ratio] 1.1 {ratio} Normal 1.1-2.2 [facility] Comment on above: Performed By: #### C OMP ####[address] [address] Alk Phos 88 IU/L Normal 32-91 [facility] Comment on above: Performed By: #### C OMP ####[address] [address] ALT [Catalytic activity/Vol] 25 U/L Normal 17-63 [facility] Comment on above: Performed By: #### C OMP ####[address] [address] Anion gap [Moles/Vol] 13 mmol/L Normal 7-17 [facility] Comment on above: Performed By: #### C OMP ####[address] [address] AST [Catalytic activity/Vol] 23 U/L Normal 15-41 [facility] Comment on above: Performed By: #### C OMP ####[address] [address] Bili Total 0.3 mg/dL Normal 0.3-1.2 [facility] Comment on above: Performed By: #### C OMP ####[address] [address] Calcium [Mass/Vol] 8.8 mg/dL Normal 8.5-10.3 [facility] Comment on above: Performed By: #### C OMP ####[address] [address] Chloride [Moles/Vol] 99 mmol/L Normal 98-110 [facility] Comment on above: Performed By: #### C OMP ####[address] [address] CO2 [Moles/Vol] 24 mmol/L Normal 22-32 [facility] Comment on above: Performed By: #### C OMP ####[address] [address] Creatinine [Mass/Vol] 0.72 mg/dL Normal 0.61-1.24 [facility] Comment on above: Performed By: #### C OMP ####[address] [address] Glucose [Mass/Vol] 260 mg/dL High 70-99 [facility] Comment on above: Performed By: #### C OMP ####[address] [address] Potassium [Moles/Vol] 5.3 mmol/L High 3.4-4.8 [facility] Comment on above: Performed By: #### C OMP ####[address] [address] Protein [Mass/Vol] 6.4 g/dL Low 6.5-8.1 [facility] Comment on above: Performed By: #### C OMP ####[address] [address] Sodium [Moles/Vol] 131 mmol/L Low 133-142 [facility] Comment on above: Performed By: #### C OMP ####[address] [address] Urea nitrogen [Mass/Vol] 14 mg/dL Normal 8-26 [facility] Comment on above: Performed By: #### C OMP ####[address] [address] Urea nitrogen/Creatinine [Mass ratio] 19.4 mg/mg Normal 10.0-20.0 [facility] Comment on above: Performed By: #### C OMP ####[address] [address] Vanco Levelon 08-20-2023 Vanco Lvl 35.7 mcg/mL Normal 10.0-40.0 [facility] Comment on above: Result Comment: Ther apeutic Range for Vancomycin:Peak: 20.0 - 40.0 mcg/mLTrough: 10.0 - 15.0 mcg/mL Performed By: #### V ANC ####[address] [address] C Fungalon 08-19-2023 C Fungal ------- Final No growth at 4 weeks. Normal [facility] Comment on above: Performed By: #### F C ####[address] [address] .eGFRon 08-17-2023 GFR/1.73 sq M.predicted MDRD (S/P/Bld) [Vol rate/Area] mL/min/{1.73_m2} Normal >=60 [facility] Comment on above: Result Comment: [facility] have implemented the eGFR calculation approach that does not have a coefficient for race and that conforms to the NKF-ASN Task Force Recommendations.Stages of Chronic Kidney Disease GFRStage 3a Mild to moderate loss of kidney function 59 to 45Stage 3b Moderate to severe loss of kidney function 44 to 33Stage 4 Severe loss of kidney function 29 to 15Stage 5 Kidney failure Less than 15GFR calculated using the CKD-Epi Creatinine Equation (2020):eGFR = 142 X min(SCr/?, 1)? X max(SCr /?, 1)-1.200 X 0.9938Age X 1.012 [if female]Abbreviations/Units:eGFR (estimated glomerular filtration rate) = mL/min/1.73 m2SCr (standardized serum creatinine) = mg/dL? = 0.7 (females) or 0.9 (males)? = -0.241 (females) or -0.302 (males)min = indicates the minimum of SCr/? or 1max = indicates the maximum of SCr/? or 1Age = years Performed By: #### E GFR ####[place] [address] CBC w/ Diffon 08-17-2023 Erythrocyte distribution width (RBC) [Ratio] 14.3 % Normal 11.6-14.8 [facility] Comment on above: Performed By: #### C BC ####[address] [address] Hematocrit (Bld) [Volume fraction] 35.5 % Low 41.0-53.0 [facility] Comment on above: Performed By: #### C BC ####[address] [address] Hemoglobin (Bld) [Mass/Vol] 12.0 g/dL Low 13.5-17.5 [facility] Comment on above: Performed By: #### C BC ####[address] [address] MCH (RBC) [Entitic mass] 31.1 pg Normal 27.0-35.0 [facility] Comment on above: Performed By: #### C BC ####[address] [address] MCHC 33.9 % Normal 31.0-37.0 [facility] Comment on above: Performed By: #### C BC ####[place] [id number] MCV (RBC) [Entitic vol] 91.8 fL Normal 80.0-100.0 [facility] Comment on above: Performed By: #### C BC ####[place] [id number] Platelet 139 x10*3/mcL Low 150-450 [facility] Comment on above: Performed By: #### C BC ####[place] [id number] Platelet mean volume (Bld) [Entitic vol] 8.4 fL Normal 6.7-10.6 [facility] Comment on above: Performed By: #### C BC ####[place] [address] RBC 3.87 x10*6/mcL Low 4.30-5.80 [facility] Comment on above: Performed By: #### C BC ####[place] [id number] WBC 6.2 x10*3/mcL Normal 4.5-11.0 [facility] Comment on above: Performed By: #### C BC ####[place] [address] CMPon 08-17-2023 Albumin [Mass/Vol] 3.7 g/dL Normal 3.2-4.9 [facility] Comment on above: Performed By: #### C OMP ####[place] [id number] Albumin/Globulin [Mass ratio] 1.1 {ratio} Normal 1.1-2.2 [facility] Comment on above: Performed By: #### C OMP ####[place] [id number] Alk Phos 101 IU/L High 32-91 [facility] Comment on above: Performed By: #### C OMP ####[place] [id number] ALT [Catalytic activity/Vol] 27 U/L Normal 17-63 [facility] Comment on above: Performed By: #### C OMP ####[address] [place] [address] Anion gap [Moles/Vol] 13 mmol/L Normal 7-17 [facility] Comment on above: Performed By: #### C OMP ####[address] [place] [address] AST [Catalytic activity/Vol] 23 U/L Normal 15-41 [facility] Comment on above: Performed By: #### C OMP ####[address] [place] [address] Bili Total 0.3 mg/dL Normal 0.3-1.2 [facility] Comment on above: Performed By: #### C OMP ####[address] [place] [address] Calcium [Mass/Vol] 8.8 mg/dL Normal 8.5-10.3 [facility] Comment on above: Performed By: #### C OMP ####[address] [place] [address] Chloride [Moles/Vol] 97 mmol/L Low 98-110 [facility] Comment on above: Performed By: #### C OMP ####[address] [place] [address] CO2 [Moles/Vol] 26 mmol/L Normal 22-32 [facility] Comment on above: Performed By: #### C OMP ####[address] [place] [address] Creatinine [Mass/Vol] 0.70 mg/dL Normal 0.61-1.24 [facility] Comment on above: Performed By: #### C OMP ####[address] [place] [address] Glucose [Mass/Vol] 119 mg/dL High 70-99 [facility] Comment on above: Performed By: #### C OMP ####[address] [place] [address] Potassium [Moles/Vol] 4.4 mmol/L Normal 3.4-4.8 [facility] Comment on above: Performed By: #### C OMP ####[address] [address] Protein [Mass/Vol] 7.0 g/dL Normal 6.5-8.1 [facility] Comment on above: Performed By: #### C OMP ####[address] [address] Sodium [Moles/Vol] 132 mmol/L Low 133-142 [facility] Comment on above: Performed By: #### C OMP ####[address] [address] Urea nitrogen [Mass/Vol] 14 mg/dL Normal 8-26 [facility] Comment on above: Performed By: #### C OMP ####[address] [address] Urea nitrogen/Creatinine [Mass ratio] 20.0 mg/mg Normal 10.0-20.0 [facility] Comment on above: Performed By: #### C OMP ####[address] [address] CRPon 08-17-2023 CRP 1.33 mg/dL High 0.00-0.75 [facility] Comment on above: Result Comment: CRP measurement is useful for assessment of non-specificINFLAMMATORY RESPONSE to infection or injury AND is asensitive MARKER of ACUTE INFLAMMATION including CARDIACRISK ASSESSMENT.CARDIAC patients with elevated CRP are POTENTIALLY at aHIGHER RISK OF FUTURE CARDIAC EVENTS. Performed By: #### C RP ####[address] [address] Diff Autoon 08-17-2023 Baso Absolute 0.1 x10*3/mcL Normal 0.0-0.2 [facility] Comment on above: Performed By: #### . Automated Diff ####[address] [address] Basophils/100 WBC (Bld) 1.3 % High 0.0-1.2 [facility] Comment on above: Performed By: #### . Automated Diff ####[address] [address] Eos Absolute 0.7 x10*3/mcL High 0.0-0.4 [facility] Comment on above: Performed By: #### . Automated Diff ####[address] [address] Eosinophils/100 WBC (Bld) 12.0 % High 0.0-6.1 [facility] Comment on above: Performed By: #### . Automated Diff ####[address] [address] Lymph Absolute 1.4 x10*3/mcL Normal 1.0-4.8 [facility] Comment on above: Performed By: #### . Automated Diff ####[address] [address] Lymphocytes/100 WBC (Bld) 23.2 % Low 27.2-40.8 [facility] Comment on above: Performed By: #### . Automated Diff ####[address] [address] [place] Absolute 0.7 x10*3/mcL Normal 0.3-1.1 [facility] Comment on above: Performed By: #### . Automated Diff ####[address] [address] Monocytes/100 WBC (Bld) 11.1 % Normal 4.7-13.9 [facility] Comment on above: Performed By: #### . Automated Diff ####[address] [address] Neutro Absolute 3.2 x10*3/mcL Normal 1.8-7.7 [facility] Comment on above: Performed By: #### . Automated Diff ####[address] [address] Neutro Auto 52.4 % Normal 47.2-70.8 [facility] Comment on above: Performed By: #### . Automated Diff ####[place] [address] ESRon 08-17-2023 Sed Rate 15 mm/hr Normal 0-23 [facility] Comment on above: Performed By: #### E SR ####[place] [address] Long-term Care Office/Clinic Noteon 08-17-2023 Long-term Care Office/Clinic Note Normal [facility] Vanco Troughon 08-17-2023 Vanco Trough 20.80 mcg/mL High 10.00-15.00 [facility] Comment on above: Performed By: #### V ANCT ####[place] [id number] .eGFRon 08-13-2023 GFR/1.73 sq M.predicted MDRD (S/P/Bld) [Vol rate/Area] mL/min/{1.73_m2} Normal >=60 [facility] Comment on above: Result Comment: [facility] have implemented the eGFR calculation approach that does not have a coefficient for race and that conforms to the NKF-ASN Task Force Recommendations.Stages of Chronic Kidney Disease GFRStage 3a Mild to moderate loss of kidney function 59 to 45Stage 3b Moderate to severe loss of kidney function 44 to 33Stage 4 Severe loss of kidney function 29 to 15Stage 5 Kidney failure Less than 15GFR calculated using the CKD-Epi Creatinine Equation (2020):eGFR = 142 X min(SCr/?, 1)? X max(SCr /?, 1)-1.200 X 0.9938Age X 1.012 [if female]Abbreviations/Units:eGFR (estimated glomerular filtration rate) = mL/min/1.73 m2SCr (standardized serum creatinine) = mg/dL? = 0.7 (females) or 0.9 (males)? = -0.241 (females) or -0.302 (males)min = indicates the minimum of SCr/? or 1max = indicates the maximum of SCr/? or 1Age = years Performed By: #### E GFR ####[place] [id number] BUNon 08-13-2023 Urea nitrogen [Mass/Vol] 14 mg/dL Normal 06-13 [facility] Comment on above: Performed By: #### B UN ####[place] [address] Creatinineon 08-13-2023 Creatinine [Mass/Vol] 0.75 mg/dL Normal 0.61-1.24 [facility] Comment on above: Performed By: #### C CORNELIO ####[place] [address] Infectious Disease Office/Cl inic Noteon 08-13-2023 Infectious Disease Office/Clinic Note Normal [facility] Provider Letteron 08-13-2023 Provider Letter Normal [facility] Vanco Troughon 08-13-2023 Vanco Trough 18.50 mcg/mL High 10.00-15.00 [facility] Comment on above: Performed By: #### V ANCT ####[place] [address] .eGFRon 08-10-2023 GFR/1.73 sq M.predicted MDRD (S/P/Bld) [Vol rate/Area] mL/min/{1.73_m2} Normal >=60 [facility] Comment on above: Result Comment: [facility] have implemented the eGFR calculation approach that does not have a coefficient for race and that conforms to the NKF-ASN Task Force Recommendations.Stages of Chronic Kidney Disease GFRStage 3a Mild to moderate loss of kidney function 59 to 45Stage 3b Moderate to severe loss of kidney function 44 to 33Stage 4 Severe loss of kidney function 29 to 15Stage 5 Kidney failure Less than 15GFR calculated using the CKD-Epi Creatinine Equation (2020):eGFR = 142 X min(SCr/?, 1)? X max(SCr /?, 1)-1.200 X 0.9938Age X 1.012 [if female]Abbreviations/Units:eGFR (estimated glomerular filtration rate) = mL/min/1.73 m2SCr (standardized serum creatinine) = mg/dL? = 0.7 (females) or 0.9 (males)? = -0.241 (females) or -0.302 (males)min = indicates the minimum of SCr/? or 1max = indicates the maximum of SCr/? or 1Age = years Performed By: #### E GFR ####[place] [id number] CBC w/ Diffon 08-10-2023 Erythrocyte distribution width (RBC) [Ratio] 14.4 % Normal 11.6-14.8 [facility] Comment on above: Performed By: #### C BC ####[place] [id number] Hematocrit (Bld) [Volume fraction] 38.0 % Low 41.0-53.0 [facility] Comment on above: Performed By: #### C BC ####[place] [id number] Hemoglobin (Bld) [Mass/Vol] 12.6 g/dL Low 13.5-17.5 [facility] Comment on above: Performed By: #### C BC ####[place] [id number] MCH (RBC) [Entitic mass] 30.1 pg Normal 27.0-35.0 [facility] Comment on above: Performed By: #### C BC ####[place] [address] MCHC 33.1 % Normal 31.0-37.0 [facility] Comment on above: Performed By: #### C BC ####[place] [id number] MCV (RBC) [Entitic vol] 90.9 fL Normal 80.0-100.0 [facility] Comment on above: Performed By: #### C BC ####[place] [id number] Platelet 256 x10*3/mcL Normal 150-450 [facility] Comment on above: Performed By: #### C BC ####[place] [id number] Platelet mean volume (Bld) [Entitic vol] 7.8 fL Normal 6.7-10.6 [facility] Comment on above: Performed By: #### C BC ####[address] [address] RBC 4.18 x10*6/mcL Low 4.30-5.80 [facility] Comment on above: Performed By: #### C BC ####[address] [address] WBC 7.0 x10*3/mcL Normal 4.5-11.0 [facility] Comment on above: Performed By: #### C BC ####[address] [address] CMPon 08-10-2023 Albumin [Mass/Vol] 3.8 g/dL Normal 3.2-4.9 [facility] Comment on above: Performed By: #### C OMP ####[address] [address] Albumin/Globulin [Mass ratio] 1.0 {ratio} Low 1.1-2.2 [facility] Comment on above: Performed By: #### C OMP ####[address] [address] Alk Phos 109 IU/L High 32-91 [facility] Comment on above: Performed By: #### C OMP ####[address] [address] ALT [Catalytic activity/Vol] 28 U/L Normal 17-63 [facility] Comment on above: Performed By: #### C OMP ####[address] [address] Anion gap [Moles/Vol] 13 mmol/L Normal 7-17 [facility] Comment on above: Performed By: #### C OMP ####[address] [address] AST [Catalytic activity/Vol] 26 U/L Normal 15-41 [facility] Comment on above: Performed By: #### C OMP ####[address] [address] Bili Total 0.6 mg/dL Normal 0.3-1.2 [facility] Comment on above: Performed By: #### C OMP ####[address] [address] Calcium [Mass/Vol] 9.3 mg/dL Normal 8.5-10.3 [facility] Comment on above: Performed By: #### C OMP ####[address] [address] Chloride [Moles/Vol] 101 mmol/L Normal 98-110 [facility] Comment on above: Performed By: #### C OMP ####[address] [address] CO2 [Moles/Vol] 26 mmol/L Normal 22-32 [facility] Comment on above: Performed By: #### C OMP ####[address] [address] Creatinine [Mass/Vol] 0.66 mg/dL Normal 0.61-1.24 [facility] Comment on above: Performed By: #### C OMP ####[address] [address] Glucose [Mass/Vol] 113 mg/dL High 70-99 [facility] Comment on above: Performed By: #### C OMP ####[address] [address] Potassium [Moles/Vol] 4.4 mmol/L Normal 3.4-4.8 [facility] Comment on above: Performed By: #### C OMP ####[address] [address] Protein [Mass/Vol] 7.7 g/dL Normal 6.5-8.1 [facility] Comment on above: Performed By: #### C OMP ####[address] [address] Sodium [Moles/Vol] 136 mmol/L Normal 133-142 [facility] Comment on above: Performed By: #### C OMP ####[address] [address] Urea nitrogen [Mass/Vol] 13 mg/dL Normal 8-26 [facility] Comment on above: Performed By: #### C OMP ####[address] [address] Urea nitrogen/Creatinine [Mass ratio] 19.7 mg/mg Normal 10.0-20.0 [facility] Comment on above: Performed By: #### C OMP ####[address] [address] CRPon 08-10-2023 CRP 1.34 mg/dL High 0.00-0.75 [facility] Comment on above: Result Comment: CRP measurement is useful for assessment of non-specificINFLAMMATORY RESPONSE to infection or injury AND is asensitive MARKER of ACUTE INFLAMMATION including CARDIACRISK ASSESSMENT.CARDIAC patients with elevated CRP are POTENTIALLY at aHIGHER RISK OF FUTURE CARDIAC EVENTS. Performed By: #### C RP ####[address] [address] Diff Autoon 08-10-2023 Baso Absolute 0.1 x10*3/mcL Normal 0.0-0.2 [facility] Comment on above: Performed By: #### . Automated Diff ####[address] [address] Basophils/100 WBC (Bld) 1.2 % Normal 0.0-1.2 [facility] Comment on above: Performed By: #### . Automated Diff ####[address] [address] Eos Absolute 0.6 x10*3/mcL High 0.0-0.4 [facility] Comment on above: Performed By: #### . Automated Diff ####[address] [address] Eosinophils/100 WBC (Bld) 8.1 % High 0.0-6.1 [facility] Comment on above: Performed By: #### . Automated Diff ####[address] [address] Lymph Absolute 1.8 x10*3/mcL Normal 1.0-4.8 [facility] Comment on above: Performed By: #### . Automated Diff ####[address] [address] Lymphocytes/100 WBC (Bld) 25.2 % Low 27.2-40.8 [facility] Comment on above: Performed By: #### . Automated Diff ####[address] [address] [place] Absolute 0.6 x10*3/mcL Normal 0.3-1.1 [facility] Comment on above: Performed By: #### . Automated Diff ####[address] [address] Monocytes/100 WBC (Bld) 8.5 % Normal 4.7-13.9 [facility] Comment on above: Performed By: #### . Automated Diff ####[address] [address] Neutro Absolute 4.0 x10*3/mcL Normal 1.8-7.7 [facility] Comment on above: Performed By: #### . Automated Diff ####[address] [address] Neutro Auto 57.0 % Normal 47.2-70.8 [facility] Comment on above: Performed By: #### . Automated Diff ####[address] [address] ESRon 08-10-2023 Sed Rate 13 mm/hr Normal 0-23 [facility] Comment on above: Performed By: #### E SR ####[address] [address] Vanco Troughon 08-10-2023 Vanco Trough 18.30 mcg/mL High 10.00-15.00 [facility] Comment on above: Performed By: #### V ANCT ####[address] [address] C Sterile BSon 08-09-2023 C Sterile BS ------- Final No growth at 2 weeks. Normal [facility] Comment on above: Performed By: #### S BSC ####[place] [id number] .eGFRon 08-06-2023 GFR/1.73 sq M.predicted MDRD (S/P/Bld) [Vol rate/Area] mL/min/{1.73_m2} Normal >=60 [facility] Comment on above: Result Comment: [facility] have implemented the eGFR calculation approach that does not have a coefficient for race and that conforms to the NKF-ASN Task Force Recommendations.Stages of Chronic Kidney Disease GFRStage 3a Mild to moderate loss of kidney function 59 to 45Stage 3b Moderate to severe loss of kidney function 44 to 33Stage 4 Severe loss of kidney function 29 to 15Stage 5 Kidney failure Less than 15GFR calculated using the CKD-Epi Creatinine Equation (2020):eGFR = 142 X min(SCr/?, 1)? X max(SCr /?, 1)-1.200 X 0.9938Age X 1.012 [if female]Abbreviations/Units:eGFR (estimated glomerular filtration rate) = mL/min/1.73 m2SCr (standardized serum creatinine) = mg/dL? = 0.7 (females) or 0.9 (males)? = -0.241 (females) or -0.302 (males)min = indicates the minimum of SCr/? or 1max = indicates the maximum of SCr/? or 1Age = years Performed By: #### E GFR ####[address] [address] BUNon 08-06-2023 Urea nitrogen [Mass/Vol] 13 mg/dL Normal 8-26 [facility] Comment on above: Performed By: #### B UN ####[address] [address] [place] Irizarry 08-06-2023 [place] TAYLOR ------- Final No anaerobic organisms isolated at 2 weeks Normal [facility] Comment on above: Performed By: #### A ALFONSO ####[address] [place] [address] C BRANDON ------- Final No anaerobic organisms isolated at 2 weeks Normal [facility] Comment on above: Performed By: #### A ALFONSO ###[address] [place] [address] [place] TAYLOR ------- Final No anaerobic organisms isolated at 2 weeks Normal [facility] Comment on above: Performed By: #### A ALFONSO ###[address] [place] [address] [place] TAYLOR ------- Final No anaerobic organisms isolated at 2 weeks Normal [facility] Comment on above: Performed By: #### A ALFONSO ###[address], [facility] [place] TAYLOR ------- Final No anaerobic organisms isolated at 2 weeks Normal [facility] Comment on above: Performed By: ###Jayla Vilchis NAC ####[address] [place] [address] C BRANDON ------- Final No anaerobic organisms isolated at 2 weeks Normal [facility] Comment on above: Performed By: #### Mame HAMILTON ####[address] [place] [address] C Sterile BS 08-06-2023 C Sterile BS ------- Final No growth at 2 weeks. [facility] Comment on above: Performed By: Mer CHAPMAN ####[address] [place] [address] C Sterile BS ------- Final No growth at 2 weeks. Normal [facility] Comment on above: Performed By: Mer Villasenor BSC ####[address] [place] [address] C Sterile BS ------- Final No growth at 2 weeks. Normal [facility] Comment on above: Performed By: #### S BSC ####[place] [id number] Creatinineon 08-06-2023 Creatinine [Mass/Vol] 0.72 mg/dL Normal 0.61-1.24 [facility] Comment on above: Performed By: #### C CORNELIO ####[address] [address] Vanco Troughon 08-06-2023 Vanco Trough 21.30 mcg/mL High 10.00-15.00 [facility] Comment on above: Performed By: #### V ANCT ####[place] [address] Send-out: Otheron 08-04-2023 Send-out Other See Report Normal [facility] Comment on above: Order Comment: TEST ID : [id number] Range Bacterial PCR and Sequencing, Varies - synovial fluid iin lab Result Comment: Miss ing Attachment Chartable Reference Lab Reports Can be viewed in source system Performed By: #### S OOTH ####[place] [id number] .eGFRon 08-03-2023 GFR/1.73 sq M.predicted MDRD (S/P/Bld) [Vol rate/Area] mL/min/{1.73_m2} Normal >=60 [facility] Comment on above: Result Comment: [facility] have implemented the eGFR calculation approach that does not have a coefficient for race and that conforms to the NKF-ASN Task Force Recommendations.Stages of Chronic Kidney Disease GFRStage 3a Mild to moderate loss of kidney function 59 to 45Stage 3b Moderate to severe loss of kidney function 44 to 33Stage 4 Severe loss of kidney function 29 to 15Stage 5 Kidney failure Less than 15GFR calculated using the CKD-Epi Creatinine Equation (2020):eGFR = 142 X min(SCr/?, 1)? X max(SCr /?, 1)-1.200 X 0.9938Age X 1.012 [if female]Abbreviations/Units:eGFR (estimated glomerular filtration rate) = mL/min/1.73 m2SCr (standardized serum creatinine) = mg/dL? = 0.7 (females) or 0.9 (males)? = -0.241 (females) or -0.302 (males)min = indicates the minimum of SCr/? or 1max = indicates the maximum of SCr/? or 1Age = years Performed By: #### E GFR ####[place] [address] CBC w/ Diffon 08-03-2023 Erythrocyte distribution width (RBC) [Ratio] 14.6 % Normal 11.6-14.8 [facility] Comment on above: Performed By: #### C BC ####[place] [id number] Hematocrit (Bld) [Volume fraction] 36.0 % Low 41.0-53.0 [facility] Comment on above: Performed By: #### C BC ####[place] [id number] Hemoglobin (Bld) [Mass/Vol] 11.9 g/dL Low 13.5-17.5 [facility] Comment on above: Performed By: #### C BC ####[address] [address] MCH (RBC) [Entitic mass] 30.9 pg Normal 27.0-35.0 [facility] Comment on above: Performed By: #### C BC ####[place] [id number] MCHC 33.1 % Normal 31.0-37.0 [facility] Comment on above: Performed By: #### C BC ####[place] [id number] MCV (RBC) [Entitic vol] 93.3 fL Normal 80.0-100.0 [facility] Comment on above: Performed By: #### C BC ####[address] [address] Platelet 302 x10*3/mcL Normal 150-450 [facility] Comment on above: Performed By: #### C BC ####[address] [address] Platelet mean volume (Bld) [Entitic vol] 7.6 fL Normal 6.7-10.6 [facility] Comment on above: Performed By: #### C BC ####[address] [address] RBC 3.86 x10*6/mcL Low 4.30-5.80 [facility] Comment on above: Performed By: #### C BC ####[address] [address] WBC 12.2 x10*3/mcL High 4.5-11.0 [facility] Comment on above: Performed By: #### C BC ####[address] [address] CMPon 08-03-2023 Albumin [Mass/Vol] 3.3 g/dL Normal 3.2-4.9 [facility] Comment on above: Performed By: #### C OMP ####[address] [address] Albumin/Globulin [Mass ratio] 0.9 {ratio} Low 1.1-2.2 [facility] Comment on above: Performed By: #### C OMP ####[address] [address] Alk Phos 126 IU/L High 32-91 [facility] Comment on above: Performed By: #### C OMP ####[address] [address] ALT [Catalytic activity/Vol] 43 U/L Normal 17-63 [facility] Comment on above: Performed By: #### C OMP ####[address] [address] Anion gap [Moles/Vol] 13 mmol/L Normal 7-17 [facility] Comment on above: Performed By: #### C OMP ####[address] [address] AST [Catalytic activity/Vol] 31 U/L Normal 15-41 [facility] Comment on above: Performed By: #### C OMP ####[address] [place] [address] Bili Total 0.2 mg/dL Low 0.3-1.2 [facility] Comment on above: Performed By: #### C OMP ####[address] [address] Calcium [Mass/Vol] 9.0 mg/dL Normal 8.5-10.3 [facility] Comment on above: Performed By: #### C OMP ####[address] [address] Chloride [Moles/Vol] 101 mmol/L Normal 98-110 [facility] Comment on above: Performed By: #### C OMP ####[address] [place] [address] CO2 [Moles/Vol] 24 mmol/L Normal 22-32 [facility] Comment on above: Performed By: #### C OMP ####[address] [address] Creatinine [Mass/Vol] 0.73 mg/dL Normal 0.61-1.24 [facility] Comment on above: Performed By: #### C OMP ####[address] [place] [address] Glucose [Mass/Vol] 113 mg/dL High 70-99 [facility] Comment on above: Performed By: #### C OMP ####[address] [address] Potassium [Moles/Vol] 4.6 mmol/L Normal 3.4-4.8 [facility] Comment on above: Performed By: #### C OMP ####[address] [address] Protein [Mass/Vol] 6.9 g/dL Normal 6.5-8.1 [facility] Comment on above: Performed By: #### C OMP ####[place] [id number] Sodium [Moles/Vol] 133 mmol/L Normal 133-142 [facility] Comment on above: Performed By: #### C OMP ####[place] [id number] Urea nitrogen [Mass/Vol] 13 mg/dL Normal 8-26 [facility] Comment on above: Performed By: #### C OMP ####[place] [id number] Urea nitrogen/Creatinine [Mass ratio] 17.8 mg/mg Normal 10.0-20.0 [facility] Comment on above: Performed By: #### C OMP ####[place] [id number] CRPon 08-03-2023 CRP 2.36 mg/dL High 0.00-0.75 [facility] Comment on above: Result Comment: CRP measurement is useful for assessment of non-specificINFLAMMATORY RESPONSE to infection or injury AND is asensitive MARKER of ACUTE INFLAMMATION including CARDIACRISK ASSESSMENT.CARDIAC patients with elevated CRP are POTENTIALLY at aHIGHER RISK OF FUTURE CARDIAC EVENTS. Performed By: #### C RP ####[place] [id number] Diff Autoon 08-03-2023 Baso Absolute 0.1 x10*3/mcL Normal 0.0-0.2 [facility] Comment on above: Performed By: #### . Automated Diff ####[place] [id number] Basophils/100 WBC (Bld) 0.7 % Normal 0.0-1.2 [facility] Comment on above: Performed By: #### . Automated Diff ####[place] [id number] Eos Absolute 0.6 x10*3/mcL High 0.0-0.4 [facility] Comment on above: Performed By: #### . Automated Diff ####[address] [address] Eosinophils/100 WBC (Bld) 4.6 % Normal 0.0-6.1 [facility] Comment on above: Performed By: #### . Automated Diff ####[address] [address] Lymph Absolute 1.8 x10*3/mcL Normal 1.0-4.8 [facility] Comment on above: Performed By: #### . Automated Diff ####[address] [address] Lymphocytes/100 WBC (Bld) 15.1 % Low 27.2-40.8 [facility] Comment on above: Performed By: #### . Automated Diff ####[address] [address] [place] Absolute 0.7 x10*3/mcL Normal 0.3-1.1 [facility] Comment on above: Performed By: #### . Automated Diff ####[address] [address] Monocytes/100 WBC (Bld) 6.0 % Normal 4.7-13.9 [facility] Comment on above: Performed By: #### . Automated Diff ####[address] [address] Neutro Absolute 8.9 x10*3/mcL High 1.8-7.7 [facility] Comment on above: Performed By: #### . Automated Diff ####[address] [address] Neutro Auto 73.6 % High 47.2-70.8 [facility] Comment on above: Performed By: #### . Automated Diff ####[address] [address] Diff Latia 08-03-2023 Band form neutrophils/100 WBC (Bld) 1 % Normal 0-5 [facility] Comment on above: Performed By: #### . Manual Diff ####[address] [address] Basophils/100 WBC (Bld) 0 % Normal 0-3 [facility] Comment on above: Performed By: #### . Manual Diff ####[address] [address] Eosinophils/100 WBC (Bld) 4 % Normal 0-7 [facility] Comment on above: Performed By: #### . Manual Diff ####[address] [address] Lymphocytes/100 WBC (Bld) 16 % Normal 14-42 [facility] Comment on above: Performed By: #### . Manual Diff ####[address] [address] Monocytes/100 WBC (Bld) 3 % Normal 1-11 [facility] Comment on above: Performed By: #### . Manual Diff ####[address] [address] Platelet estimate Adequate Normal [facility] Comment on above: Performed By: #### . Manual Diff ####[address] [address] RBC morphology finding Nom (Bld) Normal Normal [facility] Comment on above: Performed By: #### . Manual Diff ####[address] [address] Segs Man 76 % Normal 49-79 [facility] Comment on above: Performed By: #### . Manual Diff ####[address] [address] ESRon 08-03-2023 Sed Rate 31 mm/hr High 0-23 [facility] Comment on above: Performed By: #### E SR ####[address] [address] Vanco Troughon 08-03-2023 Vanco Trough 21.00 mcg/mL High 10.00-15.00 [facility] Comment on above: Performed By: #### V ANCT ####[place] [address] Long-term Care Office/Clinic Noteon 07-31-2023 Long-term Care Office/Clinic Note Normal [facility] .eGFRon 07-30-2023 GFR/1.73 sq M.predicted MDRD (S/P/Bld) [Vol rate/Area] mL/min/{1.73_m2} Normal >=60 [facility] Comment on above: Result Comment: [facility] have implemented the eGFR calculation approach that does not have a coefficient for race and that conforms to the NKF-ASN Task Force Recommendations.Stages of Chronic Kidney Disease GFRStage 3a Mild to moderate loss of kidney function 59 to 45Stage 3b Moderate to severe loss of kidney function 44 to 33Stage 4 Severe loss of kidney function 29 to 15Stage 5 Kidney failure Less than 15GFR calculated using the CKD-Epi Creatinine Equation (2020):eGFR = 142 X min(SCr/?, 1)? X max(SCr /?, 1)-1.200 X 0.9938Age X 1.012 [if female]Abbreviations/Units:eGFR (estimated glomerular filtration rate) = mL/min/1.73 m2SCr (standardized serum creatinine) = mg/dL? = 0.7 (females) or 0.9 (males)? = -0.241 (females) or -0.302 (males)min = indicates the minimum of SCr/? or 1max = indicates the maximum of SCr/? or 1Age = years Performed By: #### E GFR ####[place] [address] Basic Metabolic Profileon Anion gap [Moles/Vol] 10 mmol/L Normal 7-17 [facility] Comment on above: Performed By: #### C [id number] ####[place] [address] Calcium [Mass/Vol] 8.8 mg/dL Normal 8.5-10.3 [facility] Comment on above: Performed By: #### C [id number] ####[place] [id number] Chloride [Moles/Vol] 103 mmol/L Normal 98-110 [facility] Comment on above: Performed By: #### C [id number] ####[address] [address] CO2 [Moles/Vol] 28 mmol/L Normal 22-32 [facility] Comment on above: Performed By: #### C [id number] ####[address] [address] Creatinine [Mass/Vol] 0.81 mg/dL Normal 0.61-1.24 [facility] Comment on above: Performed By: #### C [id number] ####[address] [address] Glucose [Mass/Vol] 171 mg/dL High 70-99 [facility] Comment on above: Performed By: #### C [id number] ####[address] [address] Potassium [Moles/Vol] 4.3 mmol/L Normal 3.4-4.8 [facility] Comment on above: Performed By: #### C [id number] ####[address] [address] Sodium [Moles/Vol] 137 mmol/L Normal 133-142 [facility] Comment on above: Performed By: #### C [id number] ####[address] [address] Urea nitrogen [Mass/Vol] 17 mg/dL Normal 8-26 [facility] Comment on above: Performed By: #### C [id number] ####[address] [address] Urea nitrogen/Creatinine [Mass ratio] 21.0 mg/mg High 10.0-20.0 [facility] [facility] Comment on above: Performed By: #### C [id number] ####[address] [place] [address] CBCon 07-30-2023 Erythrocyte distribution width (RBC) [Ratio] 14.6 % Normal 11.6-14.8 [facility] Comment on above: Performed By: #### C BCI ####[place] [id number] Hematocrit (Bld) [Volume fraction] 30.2 % Low 41.0-53.0 [facility] Comment on above: Performed By: #### C BCI ####[place] [id number] Hemoglobin (Bld) [Mass/Vol] 10.2 g/dL Low 13.5-17.5 [facility] Comment on above: Performed By: #### C BCI ####[place] [id number] MCH (RBC) [Entitic mass] 30.9 pg Normal 27.0-35.0 [facility] Comment on above: Performed By: #### C BCI ####[place] [address] MCHC 33.7 % Normal 31.0-37.0 [facility] Comment on above: Performed By: #### C BCI ####[place] [id number] MCV (RBC) [Entitic vol] 91.6 fL Normal 80.0-100.0 [facility] Comment on above: Performed By: #### C BCI ####[place] [id number] Platelet 238 x10*3/mcL Normal 150-450 [facility] Comment on above: Performed By: #### C BCI ####[place] [id number] Platelet mean volume (Bld) [Entitic vol] 6.7 fL Normal 6.7-10.6 [facility] Comment on above: Performed By: #### C BCI ####[place] [id number] RBC 3.30 x10*6/mcL Low 4.30-5.80 [facility] Comment on above: Performed By: #### C BCI ####[address] [address] WBC 8.2 x10*3/mcL Normal 4.5-11.0 [facility] Comment on above: Performed By: #### C BCI ####[address] [address] COV19 Rapidon 07-30-2023 LAB ONLY Result Called? No Normal [facility] Comment on above: Performed By: #### C D:[id number] ####[address] [address] Reason for Rapid Test Dischrg to LTC Normal [facility] Comment on above: Performed By: #### C D:[id number] ####[place] [id number] SARS-CoV-2 (COVID-19) RNA RUTH+probe Ql (Unsp spec) Negative Normal Negative [facility] Comment on above: Result Comment: The 2019 novel coronavirus SARS-CoV-2 target nucleic acids are not detected.This test is for the detection of SARS-CoV-2 [...] information is necessary to determine patient infection status.ADDITIONAL INFORMATION:Testing was performed using the ID NOW COVID-19 test by [employer], which has received Emergency Use Authorization (EUA) by the U.S. Food and Drug Administration.The [place] ID NOW COVID-19 test performs best when patients are tested within the first 7 days of symptom onset. Results should be interpreted with caution for asymptomatic patients or those tested outside the 7 day target. Refer to CDC guidelines for further testing algorithms.Fact sheets for this Emergency Use Authorization (EUA) assay can be found at the following links:Fact Sheet for HealthCare Providers: https://www.fda.gov/media/425760/downloadFact Sheet for Patients: https://www.fda.gov/media/422554/download Performed By: #### C D:[id number] ####[place] [address] Inpatient Clinical Summaryon 07-30-2023 Inpatient Clinical Summary Normal [facility] Magnesiumon 07-30-2023 Magnesium [Mass/Vol] 1.8 mg/dL Normal 1.7-2.4 [facility] Comment on above: Performed By: #### M G ####[place] [address] Orthopedic Progress Noteon 1 Orthopedic Progress Note Normal [facility] POC Glucose Randomon 023 Glucose [Mass/Vol] 233 mg/dL High 70-99 [facility] Comment on above: Performed By: #### C D:[id number] ####[place] [address] .eGFRon 07-29-2023 GFR/1.73 sq M.predicted MDRD (S/P/Bld) [Vol rate/Area] mL/min/{1.73_m2} Normal >=60 [facility] Comment on above: Result Comment: [facility] have implemented the eGFR calculation approach that does not have a coefficient for race and that conforms to the NKF-ASN Task Force Recommendations.Stages of Chronic Kidney Disease GFRStage 3a Mild to moderate loss of kidney function 59 to 45Stage 3b Moderate to severe loss of kidney function 44 to 33Stage 4 Severe loss of kidney function 29 to 15Stage 5 Kidney failure Less than 15GFR calculated using the CKD-Epi Creatinine Equation (2020):eGFR = 142 X min(SCr/?, 1)? X max(SCr /?, 1)-1.200 X 0.9938Age X 1.012 [if female]Abbreviations/Units:eGFR (estimated glomerular filtration rate) = mL/min/1.73 m2SCr (standardized serum creatinine) = mg/dL? = 0.7 (females) or 0.9 (males)? = -0.241 (females) or -0.302 (males)min = indicates the minimum of SCr/? or 1max = indicates the maximum of SCr/? or 1Age = years Performed By: #### E GFR ####[address] [address] Basic Metabolic Profileon Anion gap [Moles/Vol] 11 mmol/L Normal 7-17 [facility] Comment on above: Performed By: #### C D:[id number] ####[address] [address] Calcium [Mass/Vol] 8.7 mg/dL Normal 8.5-10.3 [facility] Comment on above: Performed By: #### C D:[id number] ####[address] [address] Chloride [Moles/Vol] 103 mmol/L Normal 98-110 [facility] Comment on above: Performed By: #### C D:[id number] ####[address] [address] CO2 [Moles/Vol] 25 mmol/L Normal 22-32 [facility] Comment on above: Performed By: #### C D:[id number] ####[address] [address] Creatinine [Mass/Vol] 0.67 mg/dL Normal 0.61-1.24 [facility] Comment on above: Performed By: #### C D:[id number] ####[address] [address] Glucose [Mass/Vol] 140 mg/dL High 70-99 [facility] Comment on above: Performed By: #### C D:[id number] ####[address] [address] Potassium [Moles/Vol] 4.4 mmol/L Normal 3.4-4.8 [facility] Comment on above: Performed By: #### C D:[id number] ####[address] [address] Sodium [Moles/Vol] 135 mmol/L Normal 133-142 [facility] Comment on above: Performed By: #### C D:[id number] ####[address] [address] Urea nitrogen [Mass/Vol] 17 mg/dL Normal 8-26 [facility] Comment on above: Performed By: #### C D:[id number] ####[address] [address] Urea nitrogen/Creatinine [Mass ratio] 25.4 mg/mg High 10.0-20.0 [facility] Comment on above: Performed By: #### C D:[id number] ####[address] [address] CBC w/ Diffon 07-29-2023 Erythrocyte distribution width (RBC) [Ratio] 14.7 % Normal 11.6-14.8 [facility] Comment on above: Performed By: #### C BC ####[address] [address] Hematocrit (Bld) [Volume fraction] 30.7 % Low 41.0-53.0 [facility] Comment on above: Performed By: #### C BC ####[address] [address] Hemoglobin (Bld) [Mass/Vol] 10.4 g/dL Low 13.5-17.5 [facility] Comment on above: Performed By: #### C BC ####[address] [address] MCH (RBC) [Entitic mass] 30.9 pg Normal 27.0-35.0 [facility] Comment on above: Performed By: #### C BC ####[address] [address] MCHC 33.8 % Normal 31.0-37.0 [facility] Comment on above: Performed By: #### C BC ####[address] [address] MCV (RBC) [Entitic vol] 91.5 fL Normal 80.0-100.0 [facility] Comment on above: Performed By: #### C BC ####[address] [address] Platelet 245 x10*3/mcL Normal 150-450 [facility] Comment on above: Performed By: #### C BC ####[address] [address] Platelet mean volume (Bld) [Entitic vol] 6.4 fL Low 6.7-10.6 [facility] Comment on above: Performed By: #### C BC ####[address] [address] RBC 3.35 x10*6/mcL Low 4.30-5.80 [facility] Comment on above: Performed By: #### C BC ####[address] [address] WBC 9.9 x10*3/mcL Normal 4.5-11.0 [facility] Comment on above: Performed By: #### C BC ####[address] [address] Diff Autoon 07-29-2023 Baso Absolute 0.1 x10*3/mcL Normal 0.0-0.2 [facility] Comment on above: Performed By: #### . Automated Diff ####[address] [address] Basophils/100 WBC (Bld) 0.6 % Normal 0.0-1.2 [facility] Comment on above: Performed By: #### . Automated Diff ####[address] [address] Eos Absolute 0.8 x10*3/mcL High 0.0-0.4 [facility] Comment on above: Performed By: #### . Automated Diff ####[address] [address] Eosinophils/100 WBC (Bld) 7.6 % High 0.0-6.1 [facility] Comment on above: Performed By: #### . Automated Diff ####[address] [address] Lymph Absolute 1.4 x10*3/mcL Normal 1.0-4.8 [facility] Comment on above: Performed By: #### . Automated Diff ####[address] [address] Lymphocytes/100 WBC (Bld) 14.5 % Low 27.2-40.8 [facility] Comment on above: Performed By: #### . Automated Diff ####[address] [address] [place] Absolute 0.8 x10*3/mcL Normal 0.3-1.1 [facility] Comment on above: Performed By: #### . Automated Diff ####[address] [address] Monocytes/100 WBC (Bld) 8.1 % Normal 4.7-13.9 [facility] Comment on above: Performed By: #### . Automated Diff ####[address] [address] Neutro Absolute 6.9 x10*3/mcL Normal 1.8-7.7 [facility] Comment on above: Performed By: #### . Automated Diff ####[address] [address] Neutro Auto 69.2 % Normal 47.2-70.8 [facility] Comment on above: Performed By: #### . Automated Diff ####[address] [address] Orthopedic Progress Noteon 1 Orthopedic Progress Note Normal [facility] POC Glucose Randomon 023 Glucose [Mass/Vol] 168 mg/dL High 70-99 [facility] Comment on above: Performed By: #### C D:[id number] ####[facility] [place] [address] Glucose [Mass/Vol] 212 mg/dL High 70-99 [facility] Comment on above: Performed By: #### C D:[id number] ####[facility] [place] [address] Glucose [Mass/Vol] 189 mg/dL High 70-99 [facility] Comment on above: Performed By: #### C D:[id number] ####[place] [address] [place] [address] .eGFRon 07-28-2023 GFR/1.73 sq M.predicted MDRD (S/P/Bld) [Vol rate/Area] mL/min/{1.73_m2} Normal >=60 [facility] Comment on above: Result Comment: [facility] have implemented the eGFR calculation approach that does not have a coefficient for race and that conforms to the NKF-ASN Task Force Recommendations.Stages of Chronic Kidney Disease GFRStage 3a Mild to moderate loss of kidney function 59 to 45Stage 3b Moderate to severe loss of kidney function 44 to 33Stage 4 Severe loss of kidney function 29 to 15Stage 5 Kidney failure Less than 15GFR calculated using the CKD-Epi Creatinine Equation (2020):eGFR = 142 X min(SCr/?, 1)? X max(SCr /?, 1)-1.200 X 0.9938Age X 1.012 [if female]Abbreviations/Units:eGFR (estimated glomerular filtration rate) = mL/min/1.73 m2SCr (standardized serum creatinine) = mg/dL? = 0.7 (females) or 0.9 (males)? = -0.241 (females) or -0.302 (males)min = indicates the minimum of SCr/? or 1max = indicates the maximum of SCr/? or 1Age = years Performed By: #### E GFR ####[address] [address] GFR/1.73 sq M.predicted MDRD (S/P/Bld) [Vol rate/Area] mL/min/{1.73_m2} Normal >=60 [facility] Comment on above: Result Comment: [facility] have implemented the eGFR calculation approach that does not have a coefficient for race and that conforms to the NKF-ASN Task Force Recommendations.Stages of Chronic Kidney Disease GFRStage 3a Mild to moderate loss of kidney function 59 to 45Stage 3b Moderate to severe loss of kidney function 44 to 33Stage 4 Severe loss of kidney function 29 to 15Stage 5 Kidney failure Less than 15GFR calculated using the CKD-Epi Creatinine Equation (2020):eGFR = 142 X min(SCr/?, 1)? X max(SCr /?, 1)-1.200 X 0.9938Age X 1.012 [if female]Abbreviations/Units:eGFR (estimated glomerular filtration rate) = mL/min/1.73 m2SCr (standardized serum creatinine) = mg/dL? = 0.7 (females) or 0.9 (males)? = -0.241 (females) or -0.302 (males)min = indicates the minimum of SCr/? or 1max = indicates the maximum of SCr/? or 1Age = years Performed By: #### E GFR ####[address] [address] Basic Metabolic Profileon Anion gap [Moles/Vol] 10 mmol/L Normal 7-17 [facility] Comment on above: Performed By: #### C D:[id number] ####[place] [address] [place] [address] Calcium [Mass/Vol] 8.5 mg/dL Normal 8.5-10.3 [facility] Comment on above: Performed By: #### C D:[id number] ####[address] [address] Chloride [Moles/Vol] 100 mmol/L Normal 98-110 [facility] Comment on above: Performed By: #### C D:[id number] ####[place] [address] [place] [address] CO2 [Moles/Vol] 26 mmol/L Normal 22-32 [facility] Comment on above: Performed By: #### C D:[id number] ####[address] [address] Creatinine [Mass/Vol] 0.86 mg/dL Normal 0.61-1.24 [facility] Comment on above: Performed By: #### C D:[id number] ####[address] [address] Glucose [Mass/Vol] 290 mg/dL High 70-99 [facility] Comment on above: Performed By: #### C D:[id number] ####[address] [address] Potassium [Moles/Vol] 4.4 mmol/L Normal 3.4-4.8 [facility] Comment on above: Performed By: #### C D:[id number] ####[address] [address] Sodium [Moles/Vol] 132 mmol/L Low 133-142 [facility] Comment on above: Performed By: #### C D:[id number] ####[address] [address] Urea nitrogen [Mass/Vol] 18 mg/dL Normal 8-26 [facility] Comment on above: Performed By: #### C D:[id number] ####[address] [address] Urea nitrogen/Creatinine [Mass ratio] 20.9 mg/mg High 10.0-20.0 [facility] Comment on above: Performed By: #### C D:[id number] ####[address] [address] Anion gap [Moles/Vol] 12 mmol/L Normal 7-17 [facility] Comment on above: Performed By: #### C D:[id number] ####[address] [address] Calcium [Mass/Vol] 8.9 mg/dL Normal 8.5-10.3 [facility] Comment on above: Performed By: #### C D:[id number] ####[address] [address] Chloride [Moles/Vol] 104 mmol/L Normal 98-110 [facility] Comment on above: Performed By: #### C D:[id number] ####[address] [address] CO2 [Moles/Vol] 27 mmol/L Normal 22-32 [facility] Comment on above: Performed By: #### C D:[id number] ####[address] [address] Creatinine [Mass/Vol] 0.78 mg/dL Normal 0.61-1.24 [facility] Comment on above: Performed By: #### C D:[id number] ####[address] [address] Glucose [Mass/Vol] 134 mg/dL High 70-99 [facility] Comment on above: Performed By: #### C D:[id number] ####[address] [address] Potassium [Moles/Vol] 4.4 mmol/L Normal 3.4-4.8 [facility] Comment on above: Performed By: #### C D:[id number] ####[address] [address] Sodium [Moles/Vol] 139 mmol/L Normal 133-142 [facility] Comment on above: Performed By: #### C D:[id number] ####[address] [address] Urea nitrogen [Mass/Vol] 16 mg/dL Normal 8-26 [facility] Comment on above: Performed By: #### C D:[id number] ####[address] [address] Urea nitrogen/Creatinine [Mass ratio] 20.5 mg/mg High 10.0-20.0 [facility] Comment on above: Performed By: #### C D:[id number] ####[place] [id number] CBCon 07-28-2023 Erythrocyte distribution width (RBC) [Ratio] 15.2 % High 11.6-14.8 [facility] Comment on above: Performed By: #### C BCI ####[place] [id number] Hematocrit (Bld) [Volume fraction] 31.2 % Low 41.0-53.0 [facility] Comment on above: Performed By: #### C BCI ####[place] [address] Hemoglobin (Bld) [Mass/Vol] 10.4 g/dL Low 13.5-17.5 [facility] Comment on above: Performed By: #### C BCI ####[place] [address] MCH (RBC) [Entitic mass] 30.8 pg Normal 27.0-35.0 [facility] Comment on above: Performed By: #### C BCI ####[place] [address] MCHC 33.5 % Normal 31.0-37.0 [facility] Comment on above: Performed By: #### C BCI ####[place] [id number] MCV (RBC) [Entitic vol] 91.9 fL Normal 80.0-100.0 [facility] Comment on above: Performed By: #### C BCI ####[place] [id number] Platelet 252 x10*3/mcL Normal 150-450 [facility] Comment on above: Performed By: #### C BCI ####[place] [id number] Platelet mean volume (Bld) [Entitic vol] 7.0 fL Normal 6.7-10.6 [facility] Comment on above: Performed By: #### C BCI ####[place] [id number] RBC 3.39 x10*6/mcL Low 4.30-5.80 [facility] Comment on above: Performed By: #### C BCI ####[address] [address] WBC 11.0 x10*3/mcL Normal 4.5-11.0 [facility] Comment on above: Performed By: #### C BCI ####[place] [id number] Erythrocyte distribution width (RBC) [Ratio] 15.0 % High 11.6-14.8 [facility] Comment on above: Performed By: #### C BCI ####[place] [id number] Hematocrit (Bld) [Volume fraction] 31.6 % Low 41.0-53.0 [facility] Comment on above: Performed By: #### C BCI ####[place] [id number] Hemoglobin (Bld) [Mass/Vol] 10.6 g/dL Low 13.5-17.5 [facility] Comment on above: Performed By: #### C BCI ####[place] [id number] MCH (RBC) [Entitic mass] 30.9 pg Normal 27.0-35.0 [facility] Comment on above: Performed By: #### C BCI ####[place] [id number] MCHC 33.4 % Normal 31.0-37.0 [facility] Comment on above: Performed By: #### C BCI ####[place] [id number] MCV (RBC) [Entitic vol] 92.3 fL Normal 80.0-100.0 [facility] Comment on above: Performed By: #### C BCI ####[place] [address] Platelet 256 x10*3/mcL Normal 150-450 [facility] Comment on above: Performed By: #### C BCI ####[place] [id number] Platelet mean volume (Bld) [Entitic vol] 6.6 fL Low 6.7-10.6 [facility] Comment on above: Performed By: #### C BCI ####[place] [address] RBC 3.42 x10*6/mcL Low 4.30-5.80 [facility] Comment on above: Performed By: #### C BCI ####[place] [address] WBC 11.4 x10*3/mcL High 4.5-11.0 [facility] Comment on above: Performed By: #### C BCI ####[place] [address] CRPon 07-28-2023 CRP 5.77 mg/dL High 0.00-0.75 [facility] Comment on above: Result Comment: CRP measurement is useful for assessment of non-specificINFLAMMATORY RESPONSE to infection or injury AND is asensitive MARKER of ACUTE INFLAMMATION including CARDIACRISK ASSESSMENT.CARDIAC patients with elevated CRP are POTENTIALLY at aHIGHER RISK OF FUTURE CARDIAC EVENTS. Performed By: #### C RP ####[place] [address] ESRon 07-28-2023 Sed Rate 52 mm/hr High 0-23 [facility] Comment on above: Performed By: #### E SR ####[place] [id number] Infectious Disease Progress Noteon 07-28-2023 Infectious Disease Progress Note Normal [facility] Magnesiumon 07-28-2023 Magnesium [Mass/Vol] 1.8 mg/dL Normal 1.7-2.4 [facility] Comment on above: Performed By: #### M G ####[address] [address] Magnesium [Mass/Vol] 1.9 mg/dL Normal 1.7-2.4 [facility] Comment on above: Performed By: #### M G ####[address] [address] Orthopedic Progress Noteon 1 Orthopedic Progress Note Normal [facility] POC Glucose Randomon 023 Glucose [Mass/Vol] 281 mg/dL High 70-99 [facility] Comment on above: Performed By: #### C D:[id number] ####[address] [address] Glucose [Mass/Vol] 196 mg/dL High 70-99 [facility] Comment on above: Performed By: #### C D:[id number] ####[address] [address] Glucose [Mass/Vol] 151 mg/dL High 70-99 [facility] Comment on above: Performed By: #### C D:[id number] ####[address] [address] Vanco Troughon 07-28-2023 Vanco Trough 14.60 mcg/mL Normal 10.00-15.00 [facility] Comment on above: Performed By: #### V ANCT ####[address] [address] .eGFRon 07-27-2023 GFR/1.73 sq M.predicted MDRD (S/P/Bld) [Vol rate/Area] mL/min/{1.73_m2} Normal >=60 [facility] Comment on above: Result Comment: [facility] have implemented the eGFR calculation approach that does not have a coefficient for race and that conforms to the NKF-ASN Task Force Recommendations.Stages of Chronic Kidney Disease GFRStage 3a Mild to moderate loss of kidney function 59 to 45Stage 3b Moderate to severe loss of kidney function 44 to 33Stage 4 Severe loss of kidney function 29 to 15Stage 5 Kidney failure Less than 15GFR calculated using the CKD-Epi Creatinine Equation (2020):eGFR = 142 X min(SCr/?, 1)? X max(SCr /?, 1)-1.200 X 0.9938Age X 1.012 [if female]Abbreviations/Units:eGFR (estimated glomerular filtration rate) = mL/min/1.73 m2SCr (standardized serum creatinine) = mg/dL? = 0.7 (females) or 0.9 (males)? = -0.241 (females) or -0.302 (males)min = indicates the minimum of SCr/? or 1max = indicates the maximum of SCr/? or 1Age = years Performed By: #### E GFR ####[address] [address] Basic Metabolic Profileon Anion gap [Moles/Vol] 10 mmol/L Normal 7-17 [facility] Comment on above: Performed By: #### C D:[id number] ####[address] [address] Calcium [Mass/Vol] 8.7 mg/dL Normal 8.5-10.3 [facility] Comment on above: Performed By: #### C D:[id number] ####[address] [address] Chloride [Moles/Vol] 101 mmol/L Normal 98-110 [facility] Comment on above: Performed By: #### C D:[id number] ####[address] [address] CO2 [Moles/Vol] 28 mmol/L Normal 22-32 [facility] Comment on above: Performed By: #### C D:[id number] ####[address] [address] Creatinine [Mass/Vol] 0.81 mg/dL Normal 0.61-1.24 [facility] Comment on above: Performed By: #### C D:[id number] ####[address] [address] Glucose [Mass/Vol] 131 mg/dL High 70-99 [facility] Comment on above: Performed By: #### C D:[id number] ####[address] [address] Potassium [Moles/Vol] 4.4 mmol/L Normal 3.4-4.8 [facility] Comment on above: Performed By: #### C D:[id number] ####[address] [address] Sodium [Moles/Vol] 135 mmol/L Normal 133-142 [facility] Comment on above: Performed By: #### C D:[id number] ####[address] [address] Urea nitrogen [Mass/Vol] 14 mg/dL Normal 8-26 [facility] Comment on above: Performed By: #### C D:[id number] ####[address] [address] Urea nitrogen/Creatinine [Mass ratio] 17.3 mg/mg Normal 10.0-20.0 [facility] Comment on above: Performed By: #### C D:[id number] ####[address] [address] CBCon 07-27-2023 Erythrocyte distribution width (RBC) [Ratio] 14.9 % High 11.6-14.8 [facility] Comment on above: Performed By: #### C BCI ####[address] [address] Hematocrit (Bld) [Volume fraction] 31.0 % Low 41.0-53.0 [facility] Comment on above: Performed By: #### C BCI ####[address] [address] Hemoglobin (Bld) [Mass/Vol] 10.3 g/dL Low 13.5-17.5 [facility] Comment on above: Performed By: #### C BCI ####[address] [address] MCH (RBC) [Entitic mass] 30.6 pg Normal 27.0-35.0 [facility] Comment on above: Performed By: #### C BCI ####[place] [id number] MCHC 33.4 % Normal 31.0-37.0 [facility] Comment on above: Performed By: #### C BCI ####[place] [id number] MCV (RBC) [Entitic vol] 91.6 fL Normal 80.0-100.0 [facility] Comment on above: Performed By: #### C BCI ####[place] [address] Platelet 208 x10*3/mcL Normal 150-450 [facility] [facility] Comment on above: Performed By: #### C BCI ####[place] [address] Platelet mean volume (Bld) [Entitic vol] 6.6 fL Low 6.7-10.6 [facility] Comment on above: Performed By: #### C BCI ####[place] [address] RBC 3.38 x10*6/mcL Low 4.30-5.80 [facility] Comment on above: Performed By: #### C BCI ####[place] [address] WBC 8.3 x10*3/mcL Normal 4.5-11.0 [facility] Comment on above: Performed By: #### C BCI ####[place] [address] Dietary Consultationon 07-27 Dietary Consultation Normal [facility] Infectious Disease Progress Noteon 07-27-2023 Infectious Disease Progress Note Normal [facility] Magnesiumon 07-27-2023 Magnesium [Mass/Vol] 1.9 mg/dL Normal 1.7-2.4 [facility] Comment on above: Performed By: #### M G ####[address] [place] [address] Orthopedic Progress Noteon 1 Orthopedic Progress Note Normal [facility] POC Glucose Randomon 023 Glucose [Mass/Vol] 268 mg/dL High 70-99 [facility] Comment on above: Performed By: #### C D:[id number] ####[facility] [place] [address] Glucose [Mass/Vol] 163 mg/dL High 70-99 [facility] Comment on above: Performed By: #### C D:[id number] ####[address] [address] Glucose [Mass/Vol] 185 mg/dL High 70-99 [facility] Comment on above: Performed By: #### C D:[id number] ####[address] [address] Glucose [Mass/Vol] 106 mg/dL High 70-99 [facility] Comment on above: Performed By: #### C D:[id number] ####[address] [address] Progress Note-Nurseon 2022 Progress Note-Nurse Normal [facility] VL Extremity Venous Duplex L ower Righton 07-27-2023 VL Extremity Venous Duplex Lower Right [facility] .eGFRon 07-26-2023 GFR/1.73 sq M.predicted MDRD (S/P/Bld) [Vol rate/Area] mL/min/{1.73_m2} Normal >=60 [facility] Comment on above: Result Comment: [facility] have implemented the eGFR calculation approach that does not have a coefficient for race and that conforms to the NKF-ASN Task Force Recommendations.Stages of Chronic Kidney Disease GFRStage 3a Mild to moderate loss of kidney function 59 to 45Stage 3b Moderate to severe loss of kidney function 44 to 33Stage 4 Severe loss of kidney function 29 to 15Stage 5 Kidney failure Less than 15GFR calculated using the CKD-Epi Creatinine Equation (2020):eGFR = 142 X min(SCr/?, 1)? X max(SCr /?, 1)-1.200 X 0.9938Age X 1.012 [if female]Abbreviations/Units:eGFR (estimated glomerular filtration rate) = mL/min/1.73 m2SCr (standardized serum creatinine) = mg/dL? = 0.7 (females) or 0.9 (males)? = -0.241 (females) or -0.302 (males)min = indicates the minimum of SCr/? or 1max = indicates the maximum of SCr/? or 1Age = years Performed By: #### E GFR ####[address] [address] Basic Metabolic Profileon Anion gap [Moles/Vol] 12 mmol/L Normal 7-17 [facility] Comment on above: Performed By: #### C D:[id number] ####[address] [address] Calcium [Mass/Vol] 8.6 mg/dL Normal 8.5-10.3 [facility] Comment on above: Performed By: #### C D:[id number] ####[address] [address] Chloride [Moles/Vol] 102 mmol/L Normal 98-110 [facility] Comment on above: Performed By: #### C D:[id number] ####[address] [address] CO2 [Moles/Vol] 27 mmol/L Normal 22-32 [facility] Comment on above: Performed By: #### C D:[id number] ####[address] [address] Creatinine [Mass/Vol] 0.72 mg/dL Normal 0.61-1.24 [facility] Comment on above: Performed By: #### C D:[id number] ####[address] [address] Glucose [Mass/Vol] 127 mg/dL High 70-99 [facility] Comment on above: Performed By: #### C D:[id number] ####[address] [address] Potassium [Moles/Vol] 4.5 mmol/L Normal 3.4-4.8 [facility] Comment on above: Performed By: #### C D:[id number] ####[address] [address] Sodium [Moles/Vol] 136 mmol/L Normal 133-142 [facility] Comment on above: Performed By: #### C D:[id number] ####[address] [address] Urea nitrogen [Mass/Vol] 12 mg/dL Normal 8-26 [facility] Comment on above: Performed By: #### C D:[id number] ####[address] [address] Urea nitrogen/Creatinine [Mass ratio] 16.7 mg/mg Normal 10.0-20.0 [facility] Comment on above: Performed By: #### C D:[id number] ####[address] [address] CBCon 07-26-2023 Erythrocyte distribution width (RBC) [Ratio] 14.7 % Normal 11.6-14.8 [facility] Comment on above: Performed By: #### C BCI ####[address] [address] Hematocrit (Bld) [Volume fraction] 30.2 % Low 41.0-53.0 [facility] Comment on above: Performed By: #### C BCI ####[address] [address] Hemoglobin (Bld) [Mass/Vol] 10.3 g/dL Low 13.5-17.5 [facility] Comment on above: Performed By: #### C BCI ####[address] [address] MCH (RBC) [Entitic mass] 31.1 pg Normal 27.0-35.0 [facility] Comment on above: Performed By: #### C BCI ####[address] [address] MCHC 34.1 % Normal 31.0-37.0 [facility] Comment on above: Performed By: #### C BCI ####[address] [address] MCV (RBC) [Entitic vol] 91.3 fL Normal 80.0-100.0 [facility] Comment on above: Performed By: #### C BCI ####[address] [address] Platelet 178 x10*3/mcL Normal 150-450 [facility] Comment on above: Performed By: #### C BCI ####[address] [address] Platelet mean volume (Bld) [Entitic vol] 6.7 fL Normal 6.7-10.6 [facility] Comment on above: Performed By: #### C BCI ####[address] [address] RBC 3.31 x10*6/mcL Low 4.30-5.80 [facility] Comment on above: Performed By: #### C BCI ####[address] [address] WBC 6.8 x10*3/mcL Normal 4.5-11.0 [facility] Comment on above: Performed By: #### C BCI ####[address] [address] Magnesiumon 07-26-2023 Magnesium [Mass/Vol] 1.6 mg/dL Low 1.7-2.4 [facility] Comment on above: Performed By: #### M G ####[address] [address] Orthopedic Progress Noteon 1 Orthopedic Progress Note Normal [facility] POC Glucose Randomon 023 Glucose [Mass/Vol] 224 mg/dL High 70-99 [facility] Comment on above: Performed By: #### C D:[id number] ####[address] [address] Glucose [Mass/Vol] 201 mg/dL High 70-99 [facility] Comment on above: Performed By: #### C D:[id number] ####[address] [address] Glucose [Mass/Vol] 208 mg/dL High 70-99 [facility] Comment on above: Performed By: #### C D:[id number] ####[address] [address] Glucose [Mass/Vol] 126 mg/dL High 70-99 [facility] Comment on above: Performed By: #### C D:[id number] ####[address] [address] Vanco Troughon 07-26-2023 Vanco Trough 19.30 mcg/mL High 10.00-15.00 [facility] Comment on above: Order Comment: Add 0 800 Vanco to morning labs that were drawn per Jolanta Mcfadden RN. 07/26/2023 05:52 ALS Performed By: #### V ANCT ####[address] [address] .eGFRon 07-25-2023 GFR/1.73 sq M.predicted MDRD (S/P/Bld) [Vol rate/Area] mL/min/{1.73_m2} Normal >=60 [facility] Comment on above: Result Comment: [facility] have implemented the eGFR calculation approach that does not have a coefficient for race and that conforms to the NKF-ASN Task Force Recommendations.Stages of Chronic Kidney Disease GFRStage 3a Mild to moderate loss of kidney function 59 to 45Stage 3b Moderate to severe loss of kidney function 44 to 33Stage 4 Severe loss of kidney function 29 to 15Stage 5 Kidney failure Less than 15GFR calculated using the CKD-Epi Creatinine Equation (2020):eGFR = 142 X min(SCr/?, 1)? X max(SCr /?, 1)-1.200 X 0.9938Age X 1.012 [if female]Abbreviations/Units:eGFR (estimated glomerular filtration rate) = mL/min/1.73 m2SCr (standardized serum creatinine) = mg/dL? = 0.7 (females) or 0.9 (males)? = -0.241 (females) or -0.302 (males)min = indicates the minimum of SCr/? or 1max = indicates the maximum of SCr/? or 1Age = years Performed By: #### E GFR ####[address] [address] Basic Metabolic Profileon Anion gap [Moles/Vol] 10 mmol/L Normal 7-17 [facility] Comment on above: Performed By: #### C D:[id number] ####[address] [address] Calcium [Mass/Vol] 8.0 mg/dL Low 8.5-10.3 [facility] Comment on above: Performed By: #### C D:[id number] ####[address] [address] Chloride [Moles/Vol] 102 mmol/L Normal 98-110 [facility] Comment on above: Performed By: #### C D:[id number] ####[address] [address] CO2 [Moles/Vol] 25 mmol/L Normal 22-32 [facility] Comment on above: Performed By: #### C D:[id number] ####[address] [address] Creatinine [Mass/Vol] 0.65 mg/dL Normal 0.61-1.24 [facility] Comment on above: Performed By: #### C D:[id number] ####[address] [address] Glucose [Mass/Vol] 280 mg/dL High 70-99 [facility] Comment on above: Performed By: #### C D:[id number] ####[address] [address] Potassium [Moles/Vol] 4.5 mmol/L Normal 3.4-4.8 [facility] Comment on above: Performed By: #### C D:[id number] ####[address] [address] Sodium [Moles/Vol] 133 mmol/L Normal 133-142 [facility] Comment on above: Performed By: #### C D:[id number] ####[address] [address] Urea nitrogen [Mass/Vol] 13 mg/dL Normal 8-26 [facility] Comment on above: Performed By: #### C D:[id number] ####[address] [address] Urea nitrogen/Creatinine [Mass ratio] 20.0 mg/mg Normal 10.0-20.0 [facility] Comment on above: Performed By: #### C D:[id number] ####[address] [address] CBCon 07-25-2023 Erythrocyte distribution width (RBC) [Ratio] 14.7 % Normal 11.6-14.8 [facility] Comment on above: Performed By: #### C BCI ####[address] [address] Hematocrit (Bld) [Volume fraction] 29.0 % Low 41.0-53.0 [facility] Comment on above: Performed By: #### C BCI ####[address] [address] Hemoglobin (Bld) [Mass/Vol] 9.9 g/dL Low 13.5-17.5 [facility] Comment on above: Performed By: #### C BCI ####[address] [address] MCH (RBC) [Entitic mass] 31.5 pg Normal 27.0-35.0 [facility] Comment on above: Performed By: #### C BCI ####[address] [address] MCHC 34.0 % Normal 31.0-37.0 [facility] Comment on above: Performed By: #### C BCI ####[address] [address] MCV (RBC) [Entitic vol] 92.6 fL Normal 80.0-100.0 [facility] Comment on above: Performed By: #### C BCI ####[address] [address] Platelet 153 x10*3/mcL Normal 150-450 [facility] Comment on above: Performed By: #### C BCI ####[address] [address] Platelet mean volume (Bld) [Entitic vol] 6.7 fL Normal 6.7-10.6 [facility] Comment on above: Performed By: #### C BCI ####[address] [address] RBC 3.13 x10*6/mcL Low 4.30-5.80 [facility] Comment on above: Performed By: #### C BCI ####[address] [address] WBC 5.8 x10*3/mcL Normal 4.5-11.0 [facility] Comment on above: Performed By: #### C BCI ####[address] [address] Magnesiumon 07-25-2023 Magnesium [Mass/Vol] 1.5 mg/dL Low 1.7-2.4 [facility] Comment on above: Performed By: #### M G ####[address] [address] Orthopedic Progress Noteon 1 Orthopedic Progress Note Normal [facility] POC Glucose Randomon 023 Glucose [Mass/Vol] 234 mg/dL High 70-99 [facility] Comment on above: Performed By: #### C D:[id number] ####[address] [address] Glucose [Mass/Vol] 201 mg/dL High 70-99 [facility] Comment on above: Performed By: #### C D:[id number] ####[address] [address] Glucose [Mass/Vol] 245 mg/dL High 70-99 [facility] Comment on above: Performed By: #### C D:[id number] ####[address] [address] Glucose [Mass/Vol] 138 mg/dL High 70-99 [facility] Comment on above: Performed By: #### C D:[id number] ####[address] [address] Vanco Troughon 07-25-2023 Vanco Trough 22.80 mcg/mL High 10.00-15.00 [facility] Comment on above: Performed By: #### V ANCT ####[address] [address] .eGFRon 07-24-2023 GFR/1.73 sq M.predicted MDRD (S/P/Bld) [Vol rate/Area] mL/min/{1.73_m2} Normal >=60 [facility] Comment on above: Result Comment: [facility] have implemented the eGFR calculation approach that does not have a coefficient for race and that conforms to the NKF-ASN Task Force Recommendations.Stages of Chronic Kidney Disease GFRStage 3a Mild to moderate loss of kidney function 59 to 45Stage 3b Moderate to severe loss of kidney function 44 to 33Stage 4 Severe loss of kidney function 29 to 15Stage 5 Kidney failure Less than 15GFR calculated using the CKD-Epi Creatinine Equation (2020):eGFR = 142 X min(SCr/?, 1)? X max(SCr /?, 1)-1.200 X 0.9938Age X 1.012 [if female]Abbreviations/Units:eGFR (estimated glomerular filtration rate) = mL/min/1.73 m2SCr (standardized serum creatinine) = mg/dL? = 0.7 (females) or 0.9 (males)? = -0.241 (females) or -0.302 (males)min = indicates the minimum of SCr/? or 1max = indicates the maximum of SCr/? or 1Age = years Performed By: #### E GFR ####[address] [address] Basic Metabolic Profileon Anion gap [Moles/Vol] 11 mmol/L Normal 7-17 [facility] Comment on above: Performed By: #### C D:[id number] ####[address] [address] Calcium [Mass/Vol] 8.0 mg/dL Low 8.5-10.3 [facility] Comment on above: Performed By: #### C D:[id number] ####[address] [address] Chloride [Moles/Vol] 101 mmol/L Normal 98-110 [facility] Comment on above: Performed By: #### C D:[id number] ####[address] [address] CO2 [Moles/Vol] 24 mmol/L Normal 22-32 [facility] Comment on above: Performed By: #### C D:[id number] ####[address] [address] Creatinine [Mass/Vol] 0.66 mg/dL Normal 0.61-1.24 [facility] Comment on above: Performed By: #### C D:[id number] ####[address] [address] Glucose [Mass/Vol] 168 mg/dL High 70-99 [facility] Comment on above: Performed By: #### C D:[id number] ####[address] [address] Potassium [Moles/Vol] 4.6 mmol/L Normal 3.4-4.8 [facility] Comment on above: Performed By: #### C D:[id number] ####[address] [address] Sodium [Moles/Vol] 131 mmol/L Low 133-142 [facility] Comment on above: Performed By: #### C D:[id number] ####[address] [address] Urea nitrogen [Mass/Vol] 11 mg/dL Normal 8-26 [facility] Comment on above: Performed By: #### C D:[id number] ####[address] [address] Urea nitrogen/Creatinine [Mass ratio] 16.7 mg/mg Normal 10.0-20.0 [facility] Comment on above: Performed By: #### C D:[id number] ####[address] [address] CBCon 07-24-2023 Erythrocyte distribution width (RBC) [Ratio] 14.6 % Normal 11.6-14.8 [facility] Comment on above: Performed By: #### C BCI ####[address] [address] Hematocrit (Bld) [Volume fraction] 29.9 % Low 41.0-53.0 [facility] Comment on above: Performed By: #### C BCI ####[address] [address] Hemoglobin (Bld) [Mass/Vol] 10.1 g/dL Low 13.5-17.5 [facility] Comment on above: Performed By: #### C BCI ####[address] [address] MCH (RBC) [Entitic mass] 31.8 pg Normal 27.0-35.0 [facility] Comment on above: Performed By: #### C BCI ####[address] [place] [address] MCHC 33.9 % Normal 31.0-37.0 [facility] Comment on above: Performed By: #### C BCI ####[place] [address] MCV (RBC) [Entitic vol] 93.8 fL Normal 80.0-100.0 [facility] Comment on above: Performed By: #### C BCI ####[place] [address] Platelet 126 x10*3/mcL Low 150-450 [facility] Comment on above: Performed By: #### C BCI ####[place] [address] Platelet mean volume (Bld) [Entitic vol] 6.8 fL Normal 6.7-10.6 [facility] Comment on above: Performed By: #### C BCI ####[place] [address] RBC 3.19 x10*6/mcL Low 4.30-5.80 [facility] Comment on above: Performed By: #### C BCI ####[place] [address] WBC 6.9 x10*3/mcL Normal 4.5-11.0 [facility] Comment on above: Performed By: #### C BCI ####[place] [address] Infectious Disease Progress Noteon 07-24-2023 Infectious Disease Progress Note Normal [facility] Magnesiumon 07-24-2023 Magnesium [Mass/Vol] 1.6 mg/dL Low 1.7-2.4 [facility] Comment on above: Performed By: #### M G ####[place] [address] Orthopedic Progress Noteon 1 Orthopedic Progress Note Normal [facility] POC Glucose Randomon 023 Glucose [Mass/Vol] 197 mg/dL High 70-99 [facility] Comment on above: Performed By: #### C D:[id number] ####[address] [address] Glucose [Mass/Vol] 258 mg/dL High 70-99 [facility] Comment on above: Performed By: #### C D:[id number] ####[address] [address] Glucose [Mass/Vol] 338 mg/dL High 70-99 [facility] Comment on above: Performed By: #### C D:[id number] ####[address] [address] Glucose [Mass/Vol] 341 mg/dL High 70-99 [facility] Comment on above: Performed By: #### C D:[id number] ####[address] [address] Glucose [Mass/Vol] 167 mg/dL High 70-99 [facility] Comment on above: Performed By: #### C D:[id number] ####[address] [address] Progress Note-Nurseon 2022 Progress Note-Nurse Normal [facility] Progress Note-Nurse Normal [facility] Vanco Troughon 07-24-2023 Vanco Trough 9.50 mcg/mL Low 10.00-15.00 [facility] Comment on above: Performed By: #### V ANCT ####[address] [address] XR PICC Floor Inserton 07-24 XR PICC Floor Insert Normal [facility] .eGFRon 07-23-2023 GFR/1.73 sq M.predicted MDRD (S/P/Bld) [Vol rate/Area] mL/min/{1.73_m2} Normal >=60 [facility] Comment on above: Result Comment: [facility] have implemented the eGFR calculation approach that does not have a coefficient for race and that conforms to the NKF-ASN Task Force Recommendations.Stages of Chronic Kidney Disease GFRStage 3a Mild to moderate loss of kidney function 59 to 45Stage 3b Moderate to severe loss of kidney function 44 to 33Stage 4 Severe loss of kidney function 29 to 15Stage 5 Kidney failure Less than 15GFR calculated using the CKD-Epi Creatinine Equation (2020):eGFR = 142 X min(SCr/?, 1)? X max(SCr /?, 1)-1.200 X 0.9938Age X 1.012 [if female]Abbreviations/Units:eGFR (estimated glomerular filtration rate) = mL/min/1.73 m2SCr (standardized serum creatinine) = mg/dL? = 0.7 (females) or 0.9 (males)? = -0.241 (females) or -0.302 (males)min = indicates the minimum of SCr/? or 1max = indicates the maximum of SCr/? or 1Age = years Performed By: #### E GFR ####[address] [address] Basic Metabolic Profileon Anion gap [Moles/Vol] 10 mmol/L Normal 7-17 [facility] Comment on above: Performed By: #### C D:[id number] ####[address] [address] Calcium [Mass/Vol] 8.3 mg/dL Low 8.5-10.3 [facility] Comment on above: Performed By: #### C D:[id number] ####[place] [address] [place] [address] Chloride [Moles/Vol] 103 mmol/L Normal 98-110 [facility] Comment on above: Performed By: #### C D:[id number] ####[address] [address] CO2 [Moles/Vol] 24 mmol/L Normal 22-32 [facility] Comment on above: Performed By: #### C D:[id number] ####[address] [address] Creatinine [Mass/Vol] 0.92 mg/dL Normal 0.61-1.24 [facility] Comment on above: Performed By: #### C D:[id number] ####[address] [address] Glucose [Mass/Vol] 218 mg/dL High 70-99 [facility] Comment on above: Performed By: #### C D:[id number] ####[address] [address] Potassium [Moles/Vol] 4.2 mmol/L Normal 3.4-4.8 [facility] Comment on above: Performed By: #### C D:[id number] ####[address] [address] Sodium [Moles/Vol] 133 mmol/L Normal 133-142 [facility] Comment on above: Performed By: #### C D:[id number] ####[address] [address] Urea nitrogen [Mass/Vol] 12 mg/dL Normal 8-26 [facility] Comment on above: Performed By: #### C D:[id number] ####[address] [address] Urea nitrogen/Creatinine [Mass ratio] 13.0 mg/mg Normal 10.0-20.0 [facility] Comment on above: Performed By: #### C D:[id number] ####[address] [address] CBCon 07-23-2023 Erythrocyte distribution width (RBC) [Ratio] 14.4 % Normal 11.6-14.8 [facility] Comment on above: Performed By: #### C BCI ####[address] [address] Hematocrit (Bld) [Volume fraction] 34.4 % Low 41.0-53.0 [facility] Comment on above: Performed By: #### C BCI ####[address] [address] Hemoglobin (Bld) [Mass/Vol] 11.6 g/dL Low 13.5-17.5 [facility] Comment on above: Performed By: #### C BCI ####[place] [id number] MCH (RBC) [Entitic mass] 31.7 pg Normal 27.0-35.0 [facility] Comment on above: Performed By: #### C BCI ####[place] [address] MCHC 33.7 % Normal 31.0-37.0 [facility] Comment on above: Performed By: #### C BCI ####[place] [address] MCV (RBC) [Entitic vol] 93.8 fL Normal 80.0-100.0 [facility] Comment on above: Performed By: #### C BCI ####[place] [address] Platelet 133 x10*3/mcL Low 150-450 [facility] Comment on above: Performed By: #### C BCI ####[place] [address] Platelet mean volume (Bld) [Entitic vol] 7.2 fL Normal 6.7-10.6 [facility] Comment on above: Performed By: #### C BCI ####[place] [address] RBC 3.67 x10*6/mcL Low 4.30-5.80 [facility] Comment on above: Performed By: #### C BCI ####[place] [id number] WBC 9.3 x10*3/mcL Normal 4.5-11.0 [facility] Comment on above: Performed By: #### C BCI ####[place] [address] Infectious Disease Consultat ionon 07-23-2023 Infectious Disease Consultation Normal [facility] Magnesiumon 07-23-2023 Magnesium [Mass/Vol] 1.6 mg/dL Low 1.7-2.4 [facility] Comment on above: Performed By: #### M G ####[address] [address] Orthopedic Progress Noteon 1 Orthopedic Progress Note Normal [facility] POC Glucose Randomon 023 Glucose [Mass/Vol] 254 mg/dL High 70-99 [facility] Comment on above: Performed By: #### C D:[id number] ####[address] [address] Glucose [Mass/Vol] 217 mg/dL High 70-99 [facility] Comment on above: Performed By: #### C D:[id number] ####[address] [address] Glucose [Mass/Vol] 383 mg/dL High 70-99 [facility] Comment on above: Performed By: #### C D:[id number] ####[address] [address] Progress Note-Nurseon 2022 Progress Note-Nurse [facility] Comment on above: Order Comment: 125mm /hg /low setting .BF Cell Cnt RBC Aon 023 Fluid RBC Count [id number] /mcL Normal [facility] Comment on above: Performed By: #### . Body Fluid Cell Count RBC Auto ####[address] [address] Fluid RBC Count [id number] /mcL Normal [facility] Comment on above: Performed By: #### . Body Fluid Cell Count RBC Auto ####[address] [address] Fluid RBC Count [id number] /mcL Normal [facility] Comment on above: Performed By: #### . Body Fluid Cell Count RBC Auto ####[address] [address] .BF Cell Cnt WBC Aon 023 Fluid WBC Count 39951 /mcL High 0-150 [facility] Comment on above: Performed By: #### . Body Fluid Cell Count WBC Auto ####[address] [address] Fluid WBC Count 91537 /mcL High 0-150 [facility] Comment on above: Performed By: #### . Body Fluid Cell Count WBC Auto ####[address] [address] Fluid WBC Count 01301 /mcL High 0-150 [facility] Comment on above: Performed By: #### . Body Fluid Cell Count WBC Auto ####[address] [address] .BF Diffon 07-22-2023 Fluid Mononuclear Cells 4 % Normal 0-78 [facility] Comment on above: Performed By: #### . Body Fluid Differential ####[address] [address] Fluid Other Cells 0 % Normal 0-10 [facility] Comment on above: Performed By: #### . Body Fluid Differential ####[address] [address] Fluid Polynuclear Cells 96 % High 0-25 [facility] Comment on above: Performed By: #### . Body Fluid Differential ####[address] [address] Fluid Mononuclear Cells 5 % Normal 0-78 [facility] Comment on above: Performed By: #### . Body Fluid Differential ####[address] [address] Fluid Other Cells 0 % Normal 0-10 [facility] Comment on above: Performed By: #### . Body Fluid Differential ####[address] [address] Fluid Polynuclear Cells 95 % High 0-25 [facility] Comment on above: Performed By: #### . Body Fluid Differential ####[address] [address] Fluid Mononuclear Cells 4 % Normal 0-78 [facility] Comment on above: Performed By: #### . Body Fluid Differential ####[address] [address] Fluid Other Cells 0 % Normal 0-10 [facility] Comment on above: Performed By: #### . Body Fluid Differential ####[address] [address] Fluid Polynuclear Cells 96 % High 0-25 [facility] Comment on above: Performed By: #### . Body Fluid Differential ####[address] [address] .eGFRon 07-22-2023 GFR/1.73 sq M.predicted MDRD (S/P/Bld) [Vol rate/Area] mL/min/{1.73_m2} Normal >=60 [facility] Comment on above: Result Comment: [facility] have implemented the eGFR calculation approach that does not have a coefficient for race and that conforms to the NKF-ASN Task Force Recommendations.Stages of Chronic Kidney Disease GFRStage 3a Mild to moderate loss of kidney function 59 to 45Stage 3b Moderate to severe loss of kidney function 44 to 33Stage 4 Severe loss of kidney function 29 to 15Stage 5 Kidney failure Less than 15GFR calculated using the CKD-Epi Creatinine Equation (2020):eGFR = 142 X min(SCr/?, 1)? X max(SCr /?, 1)-1.200 X 0.9938Age X 1.012 [if female]Abbreviations/Units:eGFR (estimated glomerular filtration rate) = mL/min/1.73 m2SCr (standardized serum creatinine) = mg/dL? = 0.7 (females) or 0.9 (males)? = -0.241 (females) or -0.302 (males)min = indicates the minimum of SCr/? or 1max = indicates the maximum of SCr/? or 1Age = years Performed By: #### E GFR ####[address] [address] BF Cell Counton 07-22-2023 Body Fluid Cell Cnt Type Synovial Normal [facility] Comment on above: Performed By: #### F LCC ####[address] [address] Body Fluid Cell Cnt Type Synovial [facility] Comment on above: Performed By: #### F LC ####[place] [id number] Body Fluid Cell Cnt Type Synovial [facility] Comment on above: Performed By: #### F LC ####[address], [facility] C Sterile BF 07-22-2023 C Sterile BF ------- Final No growth at 2 weeks. ------- Gram Stain Many White Blood Cells No organisms seen. [facility] Comment on above: Performed By: #### C SBF ####[place] [address] C Sterile BF ------- Final No growth at 2 weeks. ------- Gram Stain Many White Blood Cells No organisms seen. [facility] Comment on above: Performed By: #### C SBF ####[place] [address] Occupational Medicine Progre ss Noteon 07-22-2023 Occupational Medicine Progress Note Normal [facility] Operative Reporton Operative Report Normal [facility] Orthopedic Consultationon Orthopedic Consultation Normal [facility] POC Glucose Randomon 023 Glucose [Mass/Vol] 167 mg/dL High 70-99 [facility] Comment on above: Performed By: #### C [id number] ####[address] [address] Glucose [Mass/Vol] 139 mg/dL High 70-99 [facility] Comment on above: Performed By: #### C [id number] ####[address] [address] Glucose [Mass/Vol] 121 mg/dL High 70-99 [facility] Comment on above: Performed By: #### C [id number] ####[address] [address] Glucose [Mass/Vol] 198 mg/dL High 70-99 [facility] Comment on above: Performed By: #### C [id number] ####[address] [address] Physical Therapy Progress No yossi 07-22-2023 Physical Therapy Progress Note Normal [facility] Physical Therapy Progress Note Normal [facility] Renal Panelon 07-22-2023 Albumin [Mass/Vol] 3.3 g/dL Normal 3.2-4.9 [facility] Comment on above: Performed By: #### R ENAL ####[address] [address] Anion gap [Moles/Vol] 10 mmol/L Normal 7-17 [facility] Comment on above: Performed By: #### R ENAL ####[address] [address] Calcium [Mass/Vol] 8.8 mg/dL Normal 8.5-10.3 [facility] Comment on above: Performed By: #### R ENAL ####[address] [address] Chloride [Moles/Vol] 102 mmol/L Normal 98-110 [facility] Comment on above: Performed By: #### R ENAL ####[address] [address] CO2 [Moles/Vol] 25 mmol/L Normal 22-32 [facility] Comment on above: Performed By: #### R ENAL ####[address] [address] Creatinine [Mass/Vol] 1.03 mg/dL Normal 0.61-1.24 [facility] Comment on above: Performed By: #### R ENAL ####[address] [address] Glucose [Mass/Vol] 165 mg/dL High 70-99 [facility] Comment on above: Performed By: #### R ENAL ####[address] [address] Phosphate [Mass/Vol] 3.1 mg/dL Normal 2.5-4.6 [facility] Comment on above: Performed By: #### R ENAL ####[address] [address] Potassium [Moles/Vol] 4.5 mmol/L Normal 3.4-4.8 [facility] Comment on above: Performed By: #### R ENAL ####[address] [address] Sodium [Moles/Vol] 133 mmol/L Normal 133-142 [facility] Comment on above: Performed By: #### R ENAL ####[address] [address] Urea nitrogen [Mass/Vol] 15 mg/dL Normal 8-26 [facility] Comment on above: Performed By: #### R ENAL ####[address] [address] Urea nitrogen/Creatinine [Mass ratio] 14.6 mg/mg Normal 10.0-20.0 [facility] Comment on above: Performed By: #### R ENAL ####[address] [address] .eGFRon 07-21-2023 GFR/1.73 sq M.predicted MDRD (S/P/Bld) [Vol rate/Area] mL/min/{1.73_m2} Normal >=60 [facility] Comment on above: Result Comment: [facility] have implemented the eGFR calculation approach that does not have a coefficient for race and that conforms to the NKF-ASN Task Force Recommendations.Stages of Chronic Kidney Disease GFRStage 3a Mild to moderate loss of kidney function 59 to 45Stage 3b Moderate to severe loss of kidney function 44 to 33Stage 4 Severe loss of kidney function 29 to 15Stage 5 Kidney failure Less than 15GFR calculated using the CKD-Epi Creatinine Equation (2020):eGFR = 142 X min(SCr/?, 1)? X max(SCr /?, 1)-1.200 X 0.9938Age X 1.012 [if female]Abbreviations/Units:eGFR (estimated glomerular filtration rate) = mL/min/1.73 m2SCr (standardized serum creatinine) = mg/dL? = 0.7 (females) or 0.9 (males)? = -0.241 (females) or -0.302 (males)min = indicates the minimum of SCr/? or 1max = indicates the maximum of SCr/? or 1Age = years Performed By: #### E GFR ####[address] [address] Basic Metabolic Profileon Creatinine [Mass/Vol] 0.90 mg/dL Normal 0.61-1.24 [facility] Comment on above: Performed By: #### C [id number] ####[address] [address] Urea nitrogen [Mass/Vol] 16 mg/dL Normal 8-26 [facility] Comment on above: Performed By: #### C [id number] ####[place] [address] [place] [address] Urea nitrogen/Creatinine [Mass ratio] 17.8 mg/mg Normal 10.0-20.0 [facility] Comment on above: Performed By: #### C [id number] ####[address] [address] Anion gap [Moles/Vol] 11 mmol/L Normal 7-17 [facility] Comment on above: Performed By: #### C [id number] ####[address] [address] Calcium [Mass/Vol] 8.6 mg/dL Normal 8.5-10.3 [facility] Comment on above: Performed By: #### C [id number] ####[address] [address] Chloride [Moles/Vol] 100 mmol/L Normal 98-110 [facility] Comment on above: Performed By: #### C [id number] ####[address] [address] CO2 [Moles/Vol] 22 mmol/L Normal 22-32 [facility] Comment on above: Performed By: #### C [id number] ####[address] [address] Glucose [Mass/Vol] 177 mg/dL High 70-99 [facility] Comment on above: Performed By: #### C [id number] ####[address] [address] Potassium [Moles/Vol] 3.8 mmol/L Normal 3.4-4.8 [facility] Comment on above: Performed By: #### C [id number] ####[address] [address] Sodium [Moles/Vol] 129 mmol/L Low 133-142 [facility] Comment on above: Performed By: #### C [id number] ####[address] [address] CBCon 07-21-2023 Erythrocyte distribution width (RBC) [Ratio] 15.2 % High 11.6-14.8 [facility] Comment on above: Performed By: #### C BCI ####[address] [address] Hematocrit (Bld) [Volume fraction] 38.0 % Low 41.0-53.0 [facility] Comment on above: Performed By: #### C BCI ####[place] [id number] Hemoglobin (Bld) [Mass/Vol] 12.8 g/dL Low 13.5-17.5 [facility] Comment on above: Performed By: #### C BCI ####[address] [address] MCH (RBC) [Entitic mass] 31.7 pg Normal 27.0-35.0 [facility] Comment on above: Performed By: #### C BCI ####[place] 7722940 MCHC 33.7 % Normal 31.0-37.0 [facility] Comment on above: Performed By: #### C BCI ####[address] [address] MCV (RBC) [Entitic vol] 94.0 fL Normal 80.0-100.0 [facility] Comment on above: Performed By: #### C BCI ####[address] [address] Platelet 156 x10*3/mcL Normal 150-450 [facility] Comment on above: Performed By: #### C BCI ####[address] [address] Platelet mean volume (Bld) [Entitic vol] 7.2 fL Normal 6.7-10.6 [facility] Comment on above: Performed By: #### C BCI ####[address] [address] RBC 4.04 x10*6/mcL Low 4.30-5.80 [facility] Comment on above: Performed By: #### C BCI ####[address] [address] WBC 13.7 x10*3/mcL High 4.5-11.0 [facility] Comment on above: Performed By: #### C BCI ####[address] [address] CRPon 07-21-2023 CRP 24.09 mg/dL High 0.00-0.75 [facility] Comment on above: Result Comment: CRP measurement is useful for assessment of non-specificINFLAMMATORY RESPONSE to infection or injury AND is asensitive MARKER of ACUTE INFLAMMATION including CARDIACRISK ASSESSMENT.CARDIAC patients with elevated CRP are POTENTIALLY at aHIGHER RISK OF FUTURE CARDIAC EVENTS. Performed By: #### C RP ####[place] [id number] ED Clinical Summaryon 2022 ED Clinical Summary Normal [facility] ED Note-Physicianon 07-21-20 ED Note-Physician Normal [facility] ESRon 07-21-2023 Sed Rate 23 mm/hr Normal 0-23 [facility] Comment on above: Performed By: #### E SR ####[place] [id number] Hgb A1con 07-21-2023 Glucose [Mass/Vol] 120 mg/dL High 68-114 [facility] Comment on above: Result Comment: Math ematical Calc approx. The mean gluc equivalency of A1c Performed By: #### H BA1C ####[address] [address] Hgb A1c 5.8 % A1c High 4.0-5.6 [facility] Comment on above: Result Comment: Refe rence Range:4.0 - 5.6 % Normal5.7 - 6.4 % Pre-Diabetes > 6.5 % Diabetes Performed By: #### H BA1C ####[facility] [place] [address] Magnesiumon 07-21-2023 Magnesium [Mass/Vol] 1.7 mg/dL Normal 1.7-2.4 [facility] Comment on above: Performed By: #### M G ####[address] [address] XR CHEST (2 VW)on 06-11-2023 Multifocal bibasilar pneumonia. Probable mild reactive left hilar adenopathy. No sizable pleural effusion. The findings were sent to the Radiology Results Communication Center at 9:05 a.m. on 06/11/2023 to be communicated to a licensed caregiver. [facility] EXAMINATION: TWO XRAY VIEWS [...] appearing height loss mid-lower TS vertebral bodies. [facility] Chris Wiseman MD - 06/11/2023 EXAMINATION: TWO [...] to be communicated to a licensed caregiver. [facility] XR CHEST (2 VW)Ordered By: Mame Wiseman on 06-11-2023 [facility] Work Phone: APTTon 06-10-2023 Interpretation and review of laboratory results Abnormal [facility] PTT Critically high [facility] Comment on above: IV Heparin Therapy Range: 62.0-94.0 [facility] CBC with Auto Differentialon 06-10-2023 Basophils (Bld) [#/Vol] 0.07 10*3/uL [facility] Basophils/100 WBC (Bld) 1 % 0 - 2 % [facility] Eosinophils (Bld) [#/Vol] 1.14 10*3/uL High [facility] Eosinophils/100 WBC (Bld) 9 % High 1 - 4 % [facility] Erythrocyte distribution width (RBC) [Ratio] 12.5 % 11.8 - 14.4 % [facility] Hematocrit (Bld) [Volume fraction] 40.4 % Low 40.7 - 50.3 % [facility] Hemoglobin (Bld) [Mass/Vol] 13.7 g/dL 13.0 - 17.0 g/dL [facility] Immature granulocytes (Bld) [#/Vol] 0.06 10*3/uL [facility] Immature granulocytes/100 WBC (Bld) 1 % High 0 [facility] Interpretation and review of laboratory results Abnormal [facility] Lymphocytes/100 WBC (Bld) 12 % Low 24 - 43 % [facility] Lymphocytes/100 WBC (Bld) 1.47 % [facility] MCH (RBC) [Entitic mass] 30.4 pg 25.2 - 33.5 pg [facility] MCHC (RBC) [Mass/Vol] 33.9 g/dL 28.4 - 34.8 g/dL [facility] MCV (RBC) [Entitic vol] 89.8 fL 82.6 - 102.9 fL [facility] Monocytes/100 WBC (Bld) 6 % 3 - 12 % [facility] Monocytes/100 WBC (Bld) 0.73 % [facility] Neutrophils/100 WBC (Bld) 71 % High 36 - 65 % [facility] Nucleated RBC/100 WBC (Bld) [Ratio] 0.0 % 0.0 per 100 WBC [facility] Platelet mean volume (Bld) [Entitic vol] 9.3 fL 8.1 - 13.5 fL [facility] Platelets (Bld) [#/Vol] 162 10*3/uL [facility] RBC (Bld) [#/Vol] 4.50 10*6/uL 4.21 - 5.7 7 m/uL [facility] Segmented neutrophils/100 WBC (Bld) 8.83 % High [facility] WBC other (Bld) [#/Vol] 12.3 High [facility] Comprehensive Metabolic Pane marlena 06-10-2023 Albumin [Mass/Vol] 4.2 g/dL 3.5 - 5.2 g/dL [facility] Albumin/Globulin [Mass ratio] 1.6 {ratio} 1.0 - 2.5 [facility] ALP [Catalytic activity/Vol] 132 U/L High 40 - 129 U/L [facility] ALT [Catalytic activity/Vol] 102 U/L High 5 - 41 U/L [facility] Anion gap [Moles/Vol] 10 mmol/L 9 - 17 mmol/L [facility] AST [Catalytic activity/Vol] 33 U/L NINF - 40 U/L [facility] Bilirubin [Mass/Vol] 0.5 mg/dL 0.3 - 1 .2 mg/dL [facility] Calcium [Mass/Vol] 9.6 mg/dL 8.6 - 10. 4 mg/dL [facility] Chloride [Moles/Vol] 95 mmol/L Low 98 - 10 7 mmol/L [facility] CO2 [Moles/Vol] 26 mmol/L 20 - 31 mmol/L [facility] Creatinine [Mass/Vol] 0.8 mg/dL 0.7 - 1.2 mg/dL [facility] GFR/1.73 sq M.predicted MDRD (S/P/Bld) [Vol rate/Area] - PINF [facility] Comment on above: These results are [...] 332 mg/dL High 70 - 99 mg/dL [facility] Interpretation and review of laboratory results Abnormal [facility] Potassium [Moles/Vol] 5.0 mmol/L 3.7 - 5.3 mmol/L [facility] Protein [Mass/Vol] 6.9 g/dL 6.4 - 8.3 g/dL [facility] Sodium [Moles/Vol] 131 mmol/L Low 135 - 144 mmol/L [facility] Urea nitrogen [Mass/Vol] 14 mg/dL 8 - 23 mg/dL [facility] Urea nitrogen/Creatinine [Mass ratio] 18 mg/mg 9 - 20 [facility] Microscopic Urinalysison Bacteria LM Ql (Urine sed) TRACE Abnormal None [facility] Epithelial cells LM.HPF (Urine sed) [#/Area] 0 TO 2 [facility] Interpretation and review of laboratory results Abnormal [facility] Mucus Ql (Urine sed) TRACE Abnormal None [facility] RBC LM.HPF (Urine sed) [#/Area] 0 TO 2 [facility] WBC LM.HPF (Urine sed) [#/Area] 0 TO 2 [facility] Protime-INRon 06-10-2023 INR Coag (PPP) [Relative time] 10.1 {INR} Critically high [facility] Comment on above: Therapeutic Range: Moderate Anticoagulant Intensity: INR = 2.0-3.0 High Anticoagulant Intensity: INR = 2.5-3.5 Interpretation and review of laboratory results Abnormal [facility] PT Coag (PPP) [Time] 80.7 s High [facility] TYPE AND SCREENon 06-10-2023 ABO and Rh group Nom (Bld) Blood group A Rh(D) positive [facility] Arm Band Number [id number] [facility] Blood Bank Sample Expiration 06/13/2023,2352 [facility] Blood group antibodies identified Nom Negative [facility] Urinalysis with Reflex to Cu ltureon 06-10-2023 Bilirubin Ql (U) Negative [facility] Clarity (U) Clear Clear [facility] Color (U) Yellow Yellow [facility] Glucose Test strip (U) [Mass/Vol] 2+ Abnormal NEGATIVE mg/dL [facility] Hemoglobin Auto test strip Ql (U) Negative NEGATIVE [facility] Interpretation and review of laboratory results Abnormal [facility] Ketones (U) [Mass/Vol] Negative NEGATIVE mg/dL [facility] Leukocyte esterase Test strip Ql (U) Negative NEGATIVE [facility] Nitrite Ql (U) Negative NEGATIVE [facility] pH (U) 6.5 [pH] 5.0 - 9.0 [facility] Protein (U) [Mass/Vol] Negative NEGATIVE mg/dL [facility] Specific gravity (U) [Rel density] Low 1.010 - 1.020 [facility] Urobilinogen Qn (U) Normal 0.0 - 1. 0 EU/dL [facility] XR CHEST (2 VW)on 06-10-2023 Radiology Study observation (narrative) [facility] CARDIAC STRESS/REST INJE CTIONon 05-25-2023 [facility] CARDIAC STRESS/REST INJECTION Patient Name: JOIE LU STUDY: MYOCARDIAL PERFUSION STRESS TEST WITH LEXISCAN Performing facility: [facility], [address] [place] [address], [address], [place] [address] [facility] Provider: Mily Marlow MD PCP: Dr. Alvarado Supervising provider: Keira Boles MD, FACC INDICATION: Abnormal EKG; HTN Pre-operative risk assessment for Knee scheduled at [facility] on TBD. HISTORY: Gender: M; Age: 68 y/o ; Height: 0 cm; Weight: [phone] kg. High Cholesterol; Abnormal EKG; Diabetes; HTN; Quit smoking 40 years ago. Cardiac catheterization on 2007 per patient. COMPARISON: No comparison. ACCESSION NUMBER(S): [id number]; [id number]; [id number] ORDERING CLINICIAN: MILY MARLOW TECHNIQUE: TWO DAY [...] Electronically signed by: GISELE HWANG MD Normal [facility] ([place], [place]) No Panel Informationon 05-25 Normal -[facility] 250 DO Work Phone: CT chest w conon 04-14-2023 CT chest w [facility] [place] [address] CT Scan Report Signed Patient: Joie Lu MR#: [id number] : 1955 Acct:[id number] Age/Sex: 67 / M ADM Date: 04/14/23 Loc: CT Room: Type: [facility] Attending Dr: Agustin Nj MD Copies to: [...] IMPRESSION: Patchy bilateral groundglass parenchymal densities. Consider infiltrate/pneumonit is. Impression dictated by: Alexander Cleveland M.D.04/14/2023 3:15 PM Dictation Location: [place] [address] Transcribed By: [facility] 04/14/23 1515 Dictated By: Alexander Cleveland DO 04/14/23 1504 Signed By: 04/14/23 1515 Normal [facility] Creatinine (Bld) [Mass/Vol]O rdered By: Agustin Nj on 04-14-2023 Creatinine [Mass/Vol] 0.7 mg/dL 0.6-1.3 [facility] Comment on above: ER/ESD physician is [...] Stress/Rest Nuclear Med Order; Status:Hold For - Scheduling,Retrospec tive Authorization; Requested for:09Apr2023; Radiologist to Determine Optimal [...] mGy = 0 DAP = 0 Normal [facility] ABO/Rh Retypeon 03-27-2023 ABO/Rh Retype Interp Positive Invalid Interpretation Code [facility] Comment on above: Performed By: #### 1 [id number] #### [facility] [address] [place] [address] BUNon 03-27-2023 Urea nitrogen [Mass/Vol] 16 mg/dL Normal 5-21 [facility] Comment on above: Performed By: #### 2 [id number], [id number], 3294053, [id number], [id number], [id number] #### [facility] [address] [place] [address] CBC w/Indiceson 03-27-2023 Erythrocyte distribution width (RBC) [Ratio] 12.5 % Normal 10.9-14.2 [facility] Comment on above: Performed By: #### 2 920846, [id number], 7067684, 8907614, 9186870, [id number] #### [facility] [address] [place] [address] Hematocrit (Bld) [Volume fraction] 41.1 % Normal 37.7-49.0 [facility] Comment on above: Performed By: #### 2 705510, 6985774, 5676240, 7940606, 3780802, [id number] #### [facility] [address] [place] [address] Hemoglobin (Bld) [Mass/Vol] 13.9 g/dL Normal 13.5-17.5 [facility] Comment on above: Performed By: #### 2 102910, 7971489, 5878196, 0805681, 0195550, [id number] #### [facility] [address] [place] [address] MCH (RBC) [Entitic mass] 29.9 pg Normal 27.0-34.0 [facility] Comment on above: Performed By: #### 2 952857, 0025884, 4283869, 3761806, 4871898, [id number] #### [facility] [address] [place] [address] MCHC (RBC) [Mass/Vol] 33.8 g/dL Normal 31.4-36.0 [facility] Comment on above: Performed By: #### 2 575608, 0029457, 1386758, 5124171, 1708827, [id number] #### [facility] [address] [place] [address] MCV (RBC) [Entitic vol] 88.5 fL Normal 80.0-100.0 [facility] Comment on above: Performed By: #### 2 475531, 8222427, 7036988, 5430316, 6633657, [id number] #### [facility] Laboratory [address] [place] [address] Platelet mean volume (Bld) [Entitic vol] 7.6 fL Normal 6.4-10.8 [facility] Comment on above: Performed By: #### 2 496011, 2611798, 1074039, 0213714, 4350399, 69602738 #### [facility] [address] [place] [address] Platelets (Bld) [#/Vol] 168.0 E9/L Normal 150.0-500.0 [facility] Comment on above: Performed By: #### 2 238419, 7085728, 2949328, 0160777, 0770153, 24162405 #### [facility] [address] [place] [address] RBC (Bld) [#/Vol] 4.6 E12/L Normal 4.3-5.9 [facility] Comment on above: Performed By: #### 2 371584, 3881372, 3378399, 4455921, 7336615, 79445461 #### [facility] [address] [place] [address] WBC corrected for nucl RBC Auto (Bld) [#/Vol] 8.8 E9/L Normal 4.0-11.0 [facility] Comment on above: Performed By: #### 2 599920, 2142630, 9938825, 1326334, 4533474, 56567570 #### [facility] [address] [place] [address] Consent for Treatmenton Consent for Treatment [id number] #1.00CD:127 Normal [facility] Creatinineon 03-27-2023 Creatinine [Mass/Vol] 1.0 mg/dL Normal 0.5-1.3 [facility] Comment on above: Performed By: #### 2 732319, 7098790, 7394875, 0482299, 1203052, 41578395 #### [facility] [address] [place] [address] Glucoseon 03-27-2023 Glucose [Mass/Vol] 332 mg/dL High 55-199 [facility] Comment on above: Performed By: #### 2 438705, 1759421, 9199397, 3257216, 2315167, 74392321 #### [facility] [address] [place] [address] Lyteson 03-27-2023 Anion gap [Moles/Vol] 13 mmol/L Normal 6-16 [facility] Comment on above: Performed By: #### 2 006605, 6443457, 5859055, 6857580, 1692525, 12294205 #### [facility] [address] [place] [address] Chloride [Moles/Vol] 97 mmol/L Low 101-111 [facility] Comment on above: Performed By: #### 2 834683, 3413623, 2250041, 7205216, 0917088, 94203849 #### [facility] [address] [place] [address] CO2 [Moles/Vol] 24 mmol/L Normal 21-31 [facility] Comment on above: Performed By: #### 2 441933, 6754929, 5823779, 7840837, 2539271, 78885635 #### [facility] [address] [place] [address] Potassium [Moles/Vol] 4.3 mmol/L Normal 3.5-5.3 [facility] Comment on above: Performed By: #### 2 843102, 1503365, 6723331, 0075138, 1508102, 60707787 #### [facility] [address] [place] [address] Sodium [Moles/Vol] 130 mmol/L Low 135-145 [facility] Comment on above: Performed By: #### 2 863176, 2193692, 9261001, 3613516, 4523454, 53092761 #### [facility] [address] [place] [address] UA With Cult Reflexon 2022 Bilirubin Ql (U) Negative Normal Negative [facility] Comment on above: Performed By: #### 1 7271170 #### [facility] [address] [place] [address] Clarity (U) CLEAR Normal Clear [facility] Comment on above: Performed By: #### 1 3136938 #### [facility] [address] [place] [address] Color (U) YELLOW Normal Yellow [facility] Comment on above: Performed By: #### 1 [id number] #### [facility] [address] [place] [address] Epithelial cells.squamous LM.HPF (Urine sed) [#/Area] 0-2 Normal 0-2 [facility] Comment on above: Performed By: #### 1 [id number] #### [facility] [address] [place] [address] Glucose Test strip (U) [Mass/Vol] 2+ Abnormal Negative [facility] Comment on above: Performed By: #### 1 7108618 #### [facility] [address] [place] [address] Hemoglobin Ql (U) Negative Normal Negative [facility] Comment on above: Performed By: #### 1 3489614 #### [facility] [address] [place] [address] Ketones (U) [Mass/Vol] Negative Normal Negative [facility] Comment on above: Performed By: #### 1 5695511 #### [facility] [address] [place] [address] [place].plasma/Lithi um.RBC (Bld) [Mass ratio] 0-3 Normal 0-3 [facility] Comment on above: Performed By: #### 1 [id number] #### [facility] [address] [place] [address] Nitrite Ql (U) Negative Normal Negative [facility] Comment on above: Performed By: #### 1 3973829 #### [facility] [address] [place] [address] pH (U) 6.0 [pH] Invalid Interpretation Code 5.0-9.0 [facility] Comment on above: Performed By: #### 1 5946373 #### [facility] [address] [place] [address] Protein (U) [Mass/Vol] Negative Normal Negative [facility] Comment on above: Performed By: #### 1 4619830 #### [facility] [address] [place] [address] Specific gravity (U) [Rel density] 1.015 Invalid Interpretation Code 1.005-1.030 [facility] Comment on above: Performed By: #### 1 0342195 #### [facility] [address] [place] [address] Type of Urine collection method Clean Catch Normal [facility] Comment on above: Performed By: #### 1 0556365 #### [facility] [address] [place] [address] Urobilinogen Qn (U) 0.2 {Johanne'U}/dL Normal 0.0-1.0 [facility] Comment on above: Performed By: #### 1 0070255 #### [facility] [address] [place] [address] WBC Auto Ql (U) Negative Normal Negative [facility] Comment on above: Performed By: #### 1 6497051 #### [facility] [address] [place] [address] WBC LM.HPF (Urine sed) [#/Area] 0-5 Normal 0-5 [facility] Comment on above: Performed By: #### 1 5348344 #### [facility] [address] [place] [address] eGFRon 03-27-2023 GFR/1.73 sq M.predicted among non-blacks MDRD (S/P/Bld) [Vol rate/Area] 83 mL/min/1.73 m2 Normal >=59 [facility] Comment on above: Order Comment: Order added by Discern Expert. 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 Kidney failure is indicated at less than 15 mL/min/1.73m2. Performed By: #### 2 697927, 9860597, 4734533, 5862962, 7916925, 68067791 #### [facility] [address] [place] [address] XR KNEE RT 4V or >on 023 [...] tricompartmental right knee osteoarthritis. Electronically authenticated by: WILFRIDO PIERRE Date: 2023-02-15 16:49 Normal [facility] XR LSPINE 2_3 VIEWSon 2022 XR LSPINE [...] by: CASSY MARTIN Date: 2023-01-30 19:57 Normal [facility] XR TIB_FIB LT 2Von 3 XR TIB_FIB LT 2V EXAM: XR TIB_FIB [...] by: CASSY MARTIN Date: 2023-01-30 19:56 Normal [facility] CBC AUTO DIFFon 12-22-2022 BASO # 0.1 103/ul Normal 0.0-0.1 [facility] Comment on above: Performed By: #### C BC ####[facility] [address] [place] [address]DrRenee Nevaehrachel Zhang Basophils/100 WBC (Bld) 0.6 % Normal 0.2-2.0 [facility] Comment on above: Performed By: #### C BC ####[facility] [address] [place] [address]Dr. Nevaehrachel Zhang EO # 0.6 103/ul Normal 0.0-0.7 [facility] Comment on above: Performed By: #### C BC ####[facility] [address] [place] [address]Dr. Heidi Zhang Eosinophils/100 WBC (Bld) 7.4 % Critically high 0.9-7.0 [facility] Comment on above: Performed By: #### C BC ####[facility] [address] [place] [address]Dr. Nevaehrachel Zhang Erythrocyte distribution width (RBC) [Ratio] 12.4 % Normal 11.0-15.0 [facility] Comment on above: Performed By: #### C BC ####[facility] [address] [place] [address]Dr. Heidi Zhang Hematocrit (Bld) [Volume fraction] 44.2 % Normal 42.0-54.0 [facility] Comment on above: Performed By: #### C BC ####[facility] [address] [place] [address]DrRenee Zhang Hemoglobin (Bld) [Mass/Vol] 15.4 g/dL Normal 14.0-18.0 [facility] Comment on above: Performed By: #### C BC ####[facility] [address] [place] [address]Dr. Heidi Zhang IG # 0.04 10e3/ul Critically high 0.00-0.03 [facility] Comment on above: Performed By: #### C BC ####[facility] [address] [place] [address]DrRenee Zhang IG % 0.5 % Normal 0.0-0.5 [facility] Comment on above: Performed By: #### C BC ####[facility] [address] [place] [address]DrRenee Zhang LYMPH # 1.4 103/ul Normal 1.2-3.8 [facility] Comment on above: Performed By: #### C BC ####[facility] [address] [place] [address]DrRenee Zhang Lymphocytes/100 WBC (Bld) 18.4 % Critically low 20.5-60.0 [facility] Comment on above: Performed By: #### C BC ####[facility] [address] [place] [address]DrRenee Zhang MANUAL DIFF REQ NO Normal [facility] Comment on above: Performed By: #### C BC ####[facility] [address] [place] [address]DrRenee Heidi Vicente MCH (RBC) [Entitic mass] 31.1 pg Normal 25.9-34.0 [facility] Comment on above: Performed By: #### C BC ####[facility] [address] [place] [address]DrRenee Zhang MCHC (RBC) [Mass/Vol] 34.8 g/dL Normal 29.9-35.2 [facility] Comment on above: Performed By: #### C BC ####[facility] [address] [place] [address]DrRenee Zhang MCV (RBC) [Entitic vol] 89.3 fL Normal 80.0-94.0 [facility] Comment on above: Performed By: #### C BC ####[facility] [address]aj[address] [place] [address]DrRenee Zhang MONO # 0.6 103/ul Normal 0.3-0.8 [facility] Comment on above: Performed By: #### C BC ####[facility] [address]dsi[address] [place] [address]Dr. Heidi Zhang Monocytes/100 WBC (Bld) 7.1 % Normal 1.7-12.0 [facility] Comment on above: Performed By: #### C BC ####[facility] [address]li[address] [place] [address]Dr. Heidi Zhang NEUT # 5.1 103/ul Normal 1.4-6.5 [facility] Comment on above: Performed By: #### C BC ####[facility] [address]qors[address]om[address] [place] [address]Dr. Heidi Zhang Neutrophils/100 WBC (Bld) 66.0 % Normal 43.0-75.0 [facility] Comment on above: Performed By: #### C BC ####[facility] [address] [place] [address]Dr. Heidi Zhang Platelet mean volume (Bld) [Entitic vol] 9.0 fL Critically low 9.5-13.5 [facility] Comment on above: Performed By: #### C BC ####[facility] [address] [place] [address]Dr. Heidi Zhang PLT 133 103/ul Critically low 150-450 [facility] Comment on above: Performed By: #### C BC ####[facility] [address]we[address] [place] [address]Dr. Heidi Zhang RBC 4.95 106/ul Normal 4.70-6.10 [facility] Comment on above: Performed By: #### C BC ####[facility] [address]qpmnwkn[address] [place] [address]Dr. Heidi Zhang WBC 7.7 103/ul Normal 4.0-11.0 [facility] Comment on above: Performed By: #### C BC ####[facility] [address] [place] [address]Dr. Heidi Zhang GLYCOHEMOGLOBIN A1Con 2022 ADA RECOMMENDATION SEE BELOW Normal [facility] Comment on above: Result Comment: ADA RECOMMENDED LIMIT 4.0 - 6.0 ADA THERAPEUTIC TARGET < 7.0 ACTION SUGGESTED > 7.0 Performed By: #### A 1C #### [facility] [address] [place] [address] [address] Heidi Zhang Glucose [Mass/Vol] 197 mg/dL Normal [facility] Comment on above: Performed By: #### A 1C #### [facility] [address] [place] [id number] Heidi Zhagn HbA1c (Bld) [Mass fraction] 8.5 % Critically high 4.5-6.2 [facility] Comment on above: Performed By: #### A 1C #### [facility] [address] [place] [address] [address] Heidi Zhang LIPID PROFILEon 12-22-2022 CHOL-HDL RATIO NORM SEE BELOW Normal [facility] Comment on above: Result Comment: 3.3 - 4.4 LOW RISK 4.4 - 7.1 AVERAGE RISK 7.1 - 11.0 MODERATE RISK >11.0 HIGH RISK Performed By: #### L IPID, CMP ####[facility] [address] [place], [place] [address]Ra. Heidi Zhang Cholesterol [Mass/Vol] 152 mg/dL Normal <=200 [facility] Comment on above: Performed By: #### L IPID, CMP ####[facility] [address] [place], [place] [address]Gd. Heidi Zhang Cholesterol in HDL [Mass/Vol] 43 mg/dL Normal 40-60 [facility] Comment on above: Performed By: #### L IPID, CMP ####[facility] [address] [place], [place] [address]Bv. Heidi Zhang Cholesterol in LDL [Mass/Vol] 75.4 mg/dL Normal [facility] Comment on above: Performed By: #### L IPID, CMP ####[facility] [address] [place], [place] [address]Qn. Heidi Zhang Cholesterol.total/Ch olesterol in HDL [Mass ratio] 3.5 {ratio} Normal [facility] Comment on above: Performed By: #### L IPID, CMP ####[facility] [address] [place] [address]Dr. Heidi Zhang HDL NORMAL > or = 60 mg/dl - LOW CARDIOVASCULAR RISK <40 mg/dl - HIGH CARDIOVASCULAR RISK Normal [facility] Comment on above: Performed By: #### L IPID, CMP ####[facility] [address] [place] [address]Dr. Heidi Zhang LDL CALC NORMAL SEE BELOW Normal [facility] Comment on above: Result Comment: <100 mg/dl OPTIMAL 100 - 129 mg/dl NEAR OR ABOVE OPTIMAL 130 - 159 mg/dl BORDERLINE HIGH 160 - 189 mg/dl HIGH >190 mg/dl VERY HIGH Performed By: #### L IPID, CMP ####[facility] [address] [place] [address]Dr. Heidi Zhang Triglyceride [Mass/Vol] 168 mg/dL Critically high <=150 [facility] Comment on above: Performed By: #### L IPID, CMP ####[facility] [address] [place] [address]DrRenee Zhang VLDL CALC 33.6 mg/dL Normal [facility] Comment on above: Performed By: #### L IPID, CMP ####[facility] [address] [place] [address]DrRenee Zhang PROF 14(COMP METB)on 023 Albumin [Mass/Vol] 4.0 g/dL Normal 3.4-5.0 [facility] Comment on above: Performed By: #### L IPID, CMP #### [facility] [address] [place] [address] [address] Heidi Zhang Albumin/Globulin [Mass ratio] 1.4 {ratio} Normal [facility] Comment on above: Performed By: #### L IPID, CMP #### [facility] [address] [place] [address] [address] Heidi Zhang ALP [Catalytic activity/Vol] 75 U/L Normal 46-116 [facility] Comment on above: Performed By: #### L IPID, CMP #### [facility] [address] [place] [address] [address] Heidi Zhang ALT [Catalytic activity/Vol] 29 U/L Normal 16-63 [facility] Comment on above: Performed By: #### L IPID, CMP #### [facility] [address] [place] [address] [address] Heidi Zhang Anion gap [Moles/Vol] 12.1 mmol/L Normal [facility] Comment on above: Performed By: #### L IPID, CMP #### [facility] [address] [place] [address] [address] Heidi Zhang AST [Catalytic activity/Vol] 28 U/L Normal 15-37 [facility] Comment on above: Performed By: #### L IPID, CMP #### [facility] [address] [place] [address] Dr. Heidi Zhang Bilirubin [Mass/Vol] 0.4 mg/dL Normal 0.2-1.0 [facility] Comment on above: Performed By: #### L IPID, CMP #### [facility] [address] [place] [address] [address] Heidi Zhang Calcium [Mass/Vol] 9.4 mg/dL Normal 8.5-10.1 [facility] Comment on above: Performed By: #### L IPID, CMP #### [facility] [address] [place] [address] Dr. Heidi Zhang Chloride [Moles/Vol] 99 mmol/L Normal 98-107 [facility] Comment on above: Performed By: #### L IPID, CMP #### [facility] [address] [place] [address] [address] Heidi Zhang CO2 [Moles/Vol] 28.1 mmol/L Normal 21.0-32.0 [facility] Comment on above: Performed By: #### L IPID, CMP #### [facility] [address] [place] [address] [address] Heidi Zhang Creatinine [Mass/Vol] 1.09 mg/dL Normal 0.70-1.30 [facility] Comment on above: Performed By: #### L IPID, CMP #### [facility] [address] [place] [address] [address] Heidi Zhang EGFR-AF SALVADOREAN >60 Normal >=60 [facility] Comment on above: Performed By: #### L IPID, CMP #### [facility] [address] [place] [address] [address] Heidi Zhang EGFR-NON AF SALVADOREAN >60 Normal >=60 [facility] Comment on above: Performed By: #### L IPID, CMP #### [facility] [address] [place] [address] [address] Heidi Zhang Globulin (S) [Mass/Vol] 2.9 g/dL Normal [facility] Comment on above: Performed By: #### L IPID, CMP #### [facility] [address] [place] [address] [address] Heidi Zhang Glucose [Mass/Vol] 428 mg/dL Critically high 74-106 [facility] Comment on above: Performed By: #### L IPID, CMP #### [facility] [address] [place] [address] [address] Heidi Zhang Potassium [Moles/Vol] 5.2 mmol/L Critically high 3.5-5.1 [facility] Comment on above: Performed By: #### L IPID, CMP #### [facility] [address] [place] [address] [address] Heidi Zhang Protein [Mass/Vol] 6.9 g/dL Normal 6.4-8.2 [facility] Comment on above: Performed By: #### L IPID, CMP #### [facility] [address] [place] [address] [address] Heidi Zhang Sodium [Moles/Vol] 134 mmol/L Critically low 136-145 [facility] Comment on above: Performed By: #### L IPID, CMP #### [facility] [address] [place] [address] [address] Heidi Zhang Urea nitrogen [Mass/Vol] 11.0 mg/dL Normal 7.0-18.0 [facility] Comment on above: Performed By: #### L IPID, CMP #### [facility] [address] [place] [address] [address] Heidi Zhang Urea nitrogen/Creatinine [Mass ratio] 10.1 mg/mg Normal [facility] Comment on above: Performed By: #### L IPID, CMP #### [facility] [address] [place] [address] [address] Heidi Zhang XR CHEST 2 Von 10-13-2022 XR CHEST 2 V EXAMINATION: XR CHEST 2 V HISTORY: Disorder of respiratory system [...] by: JONAH GARCIA Date: 2022-10-13 16:09 Normal [facility] PROF CHEM 8 (BAS METB)on Anion gap [Moles/Vol] 12.5 mmol/L Normal [facility] Comment on above: Performed By: #### B MP #### [facility] [address] [place] [address] [address] Heidi Zhang Calcium [Mass/Vol] 9.1 mg/dL Normal 8.5-10.1 [facility] Comment on above: Performed By: #### B MP #### [facility] [address] [place] [address] [address] Heidi Zhang Chloride [Moles/Vol] 99 mmol/L Normal 98-107 [facility] Comment on above: Performed By: #### B MP #### [facility] [address] [place] [address] [address] Heidi Zhang CO2 [Moles/Vol] 26.1 mmol/L Normal 21.0-32.0 [facility] Comment on above: Performed By: #### B MP #### [facility] [address] [place] [address] [address] Heidi Zhang Creatinine [Mass/Vol] 1.00 mg/dL Normal 0.70-1.30 [facility] Comment on above: Performed By: #### B MP #### [facility] [address] [place] [address] Dr. Heidi Zhang EGFR-AF SALVADOREAN >60 Normal >=60 [facility] Comment on above: Performed By: #### B MP #### [facility] [address] [place] [address] Dr. Heidi Zhang EGFR-NON AF SALVADOREAN >60 Normal >=60 [facility] Comment on above: Performed By: #### B MP #### [facility] [address] [place] [address] Dr. Heidi Zhang Glucose [Mass/Vol] 285 mg/dL Critically high 74-106 [facility] Comment on above: Performed By: #### B MP #### [facility] [address] [place] [address] Dr. Heidi Zhang Potassium [Moles/Vol] 4.6 mmol/L Normal 3.5-5.1 [facility] Comment on above: Performed By: #### B MP #### [facility] [address] [place] [address] Dr. Heidi Zhang Sodium [Moles/Vol] 133 mmol/L Critically low 136-145 [facility] Comment on above: Performed By: #### B MP #### [facility] [address] [place] [address] Dr. Heidi Zhang Urea nitrogen [Mass/Vol] 16.0 mg/dL Normal 7.0-18.0 [facility] Comment on above: Performed By: #### B MP #### [facility] [address] [place] [address] Dr. Heidi Zhang Urea nitrogen/Creatinine [Mass ratio] 16.0 mg/mg Normal [facility] Comment on above: Performed By: #### B MP #### [facility] [address] [place] [address] Dr. Heidi Zhang CBC AUTO DIFFon 08-11-2022 BASO # 0.1 103/ul Normal 0.0-0.1 [facility] Comment on above: Performed By: #### C BC ####[facility] [address] [place], [place] [address]Dr. Heidi Vicente Basophils/100 WBC (Bld) 0.6 % Normal 0.2-2.0 [facility] Comment on above: Performed By: #### C BC ####[facility] [address] [place], [place] [address]Dr. Heidi Zhang EO # 0.4 103/ul Normal 0.0-0.7 [facility] Comment on above: Performed By: #### C BC ####[facility] [address] [place], [place] [address]Dr. Heidi Zhang Eosinophils/100 WBC (Bld) 4.4 % Normal 0.9-7.0 [facility] Comment on above: Performed By: #### C BC ####[facility] [address] [place], [place] [address]Dr. Nevaehrachel Zhang Erythrocyte distribution width (RBC) [Ratio] 11.9 % Normal 11.0-15.0 [facility] Comment on above: Performed By: #### C BC ####[facility] [address] [place], [place] [address]Dr. Heidi Vicente Hematocrit (Bld) [Volume fraction] 44.8 % Normal 42.0-54.0 [facility] Comment on above: Performed By: #### C BC ####[facility] [address] [place], [place] [address]Dr. Heidi Vicente Hemoglobin (Bld) [Mass/Vol] 15.2 g/dL Normal 14.0-18.0 [facility] Comment on above: Performed By: #### C BC ####[facility] [address] [place], [place] [address]Dr. Heidi Zhang IG # 0.04 10e3/ul Critically high 0.00-0.03 [facility] Comment on above: Performed By: #### C BC ####[facility] [address] [place], [place] [address]DrRenee Zhang IG % 0.4 % Normal 0.0-0.5 [facility] Comment on above: Performed By: #### C BC ####[facility] [address] [place] [address]DrRenee Zhang LYMPH # 1.7 103/ul Normal 1.2-3.8 [facility] Comment on above: Performed By: #### C BC ####[facility] [address] [place] [address]DrRenee Zhang Lymphocytes/100 WBC (Bld) 16.6 % Critically low 20.5-60.0 [facility] Comment on above: Performed By: #### C BC ####[facility] [address] [place], [place] [address]DrRenee Zhang MANUAL DIFF REQ NO Normal [facility] Comment on above: Performed By: #### C BC ####[facility] [address] [place], [place] [address]DrRenee Zhang MCH (RBC) [Entitic mass] 31.1 pg Normal 25.9-34.0 [facility] Comment on above: Performed By: #### C BC ####[facility] [address] [place], [place] [address]DrRenee Zhang MCHC (RBC) [Mass/Vol] 33.9 g/dL Normal 29.9-35.2 [facility] Comment on above: Performed By: #### C BC ####[facility] [address] [place], [place] [address]DrRenee Zhang MCV (RBC) [Entitic vol] 91.8 fL Normal 80.0-94.0 [facility] Comment on above: Performed By: #### C BC ####[facility] [address] [place], [place] [address]DrRenee Zhang MONO # 0.9 103/ul Critically high 0.3-0.8 [facility] Comment on above: Performed By: #### C BC ####[facility] [address] [place] [address]DrRenee Zhang Monocytes/100 WBC (Bld) 8.7 % Normal 1.7-12.0 [facility] Comment on above: Performed By: #### C BC ####[facility] [address] [place] [address]Dr. Heidi Zhang NEUT # 6.9 103/ul Critically high 1.4-6.5 [facility] Comment on above: Performed By: #### C BC ####[facility] [address] [place] [address]Dr. Heidi Zhang Neutrophils/100 WBC (Bld) 69.3 % Normal 43.0-75.0 [facility] Comment on above: Performed By: #### C BC ####[facility] [address] [place] [address]Dr. Heidi Zhang Platelet mean volume (Bld) [Entitic vol] 9.9 fL Normal 9.5-13.5 [facility] Comment on above: Performed By: #### C BC ####[facility] [address] [place] [address]Dr. Heidi Zhang PLT 153 103/ul Normal 150-450 [facility] Comment on above: Performed By: #### C BC ####[facility] [address] [place] [address]Dr. Heidi Zhang RBC 4.88 106/ul Normal 4.70-6.10 [facility] Comment on above: Performed By: #### C BC ####[facility] [address] [place] [address]Dr. Heidi Zhang WBC 10.0 103/ul Normal 4.0-11.0 [facility] Comment on above: Performed By: #### C BC ####[facility] [address] [place] [id number]. Heidi Zhang GLYCOHEMOGLOBIN A1Con 2021 ADA RECOMMENDATION SEE BELOW Normal [facility] Comment on above: Result Comment: ADA RECOMMENDED LIMIT 4.0 - 6.0 ADA THERAPEUTIC TARGET < 7.0 ACTION SUGGESTED > 7.0 Performed By: #### A 1C #### [facility] [address] [address] [address] Heidi Zhang Glucose [Mass/Vol] 166 mg/dL Normal [facility] Comment on above: Performed By: #### A 1C #### [facility] [address] [address] [address] Heidi Zhang HbA1c (Bld) [Mass fraction] 7.4 % Critically high 4.5-6.2 [facility] Comment on above: Performed By: #### A 1C #### [facility] [address] [address] [address] Heidi Zhang LIPID PROFILEon 08-11-2022 CHOL-HDL RATIO NORM SEE BELOW Normal [facility] Comment on above: Result Comment: 3.3 - 4.4 LOW RISK 4.4 - 7.1 AVERAGE RISK 7.1 - 11.0 MODERATE RISK >11.0 HIGH RISK Performed By: #### B MP, LIPID ####[facility] [address] [place] [id number] Zhang Cholesterol [Mass/Vol] 127 mg/dL Normal <=200 [facility] Comment on above: Performed By: #### B MP, LIPID ####[facility] [address] [place] [id number] Zhang Cholesterol in HDL [Mass/Vol] 41 mg/dL Normal 40-60 [facility] Comment on above: Performed By: #### B MP, LIPID ####[facility] [address] [place] [id number] Zhang Cholesterol in LDL [Mass/Vol] 55.2 mg/dL Normal [facility] Comment on above: Performed By: #### B MP, LIPID ####[facility] [address] [place], [place] [address]Ro. Heidi Zhang Cholesterol.total/Ch olesterol in HDL [Mass ratio] 3.1 {ratio} Normal [facility] Comment on above: Performed By: #### B MP, LIPID ####[facility] [id number] [place], [place] [address]VwRenee Zhang HDL NORMAL > or = 60 mg/dl - LOW CARDIOVASCULAR RISK <40 mg/dl - HIGH CARDIOVASCULAR RISK Normal [facility] Comment on above: Performed By: #### B MP, LIPID ####[facility] [address] [place] [address]Dr. Heidi Zhang LDL CALC NORMAL SEE BELOW Normal [facility] Comment on above: Result Comment: <100 mg/dl OPTIMAL 100 - 129 mg/dl NEAR OR ABOVE OPTIMAL 130 - 159 mg/dl BORDERLINE HIGH 160 - 189 mg/dl HIGH >190 mg/dl VERY HIGH Performed By: #### B MP, LIPID ####[facility] [address] [place] [address]Dr. Heidi Zhang Triglyceride [Mass/Vol] 154 mg/dL Critically high <=150 [facility] Comment on above: Performed By: #### B MP, LIPID ####[facility] [address] [place] [address]Dr. Heidi Zhang VLDL CALC 30.8 mg/dL Normal [facility] Comment on above: Performed By: #### B MP, LIPID ####[facility] [address] [place] [address]Dr. Heidi Zhang PROF CHEM 8 (BAS METB)on Anion gap [Moles/Vol] 10.1 mmol/L Normal [facility] Comment on above: Performed By: #### B MP, LIPID ####[facility] [address] [place] [address]Dr. Heidi Zhang Calcium [Mass/Vol] 9.2 mg/dL Normal 8.5-10.1 [facility] Comment on above: Performed By: #### B MP, LIPID ####[facility] [address] [place] [address]Dr. Heidi Zhang Chloride [Moles/Vol] 95 mmol/L Critically low 98-107 [facility] Comment on above: Performed By: #### B MP, LIPID ####[facility] [address] [place] [address]Dr. Heidi Zhang CO2 [Moles/Vol] 28.9 mmol/L Normal 21.0-32.0 [facility] Comment on above: Performed By: #### B MP, LIPID ####[facility] [address] [place] [id number]. Heidi Zhang Creatinine [Mass/Vol] 0.92 mg/dL Normal 0.70-1.30 [facility] Comment on above: Performed By: #### B MP, LIPID ####[facility] [address] [place] [id number]. Heidi Zhang EGFR-AF SALVADOREAN >60 Normal >=60 [facility] Comment on above: Performed By: #### B MP, LIPID ####[facility] [address] [place] [id number]. Heidi Zhang EGFR-NON AF SALVADOREAN >60 Normal >=60 [facility] Comment on above: Performed By: #### B MP, LIPID ####[facility] [address] [place] [phone]. Heidi Zhang Glucose [Mass/Vol] 172 mg/dL Critically high 74-106 [facility] Comment on above: Performed By: #### B MP, LIPID ####[facility] [address] [place] [id number]. Heidi Zhang Potassium [Moles/Vol] 5.0 mmol/L Normal 3.5-5.1 [facility] Comment on above: Performed By: #### B MP, LIPID ####[facility] [address] [place] [phone]. Heidi Zhang Sodium [Moles/Vol] 129 mmol/L Critically low 136-145 [facility] Comment on above: Performed By: #### B MP, LIPID ####[facility] [address] [place] [id number]. Heidi Zhang Urea nitrogen [Mass/Vol] 14.0 mg/dL Normal 7.0-18.0 [facility] Comment on above: Performed By: #### B MP, LIPID ####[facility] [address] [place] [phone]. Heidi Zhang Urea nitrogen/Creatinine [Mass ratio] 15.2 mg/mg Normal [facility] Comment on above: Performed By: #### B MP, LIPID ####[facility] [address] [place], [place] [address]Dr. Heidi Zhang US LADI DOP LEG RTon 04-28-20 US LADI DOP LEG RT RIGHT LOWER EXTREMITY VENOUS DUPLEX CLINICAL HISTORY: Localized swelling of [...] appropriate compressibility and waveform variability. There is compressibility/moseley ncy of the great saphenous vein at the [...] KAY SOMMER Date: 2022-04-28 21:51 Normal [facility] GLYCOHEMOGLOBIN A1Con 2021 ADA RECOMMENDATION SEE BELOW Normal [facility] Comment on above: Result Comment: ADA RECOMMENDED LIMIT 4.0 - 6.0 ADA THERAPEUTIC TARGET < 7.0 ACTION SUGGESTED > 7.0 Performed By: #### A 1C #### [facility] [address] [address] [address] Heidi Zhang Glucose [Mass/Vol] 154 mg/dL Normal [facility] Comment on above: Performed By: #### A 1C #### [facility] [address] [address] [address] Heidi Zhang HbA1c (Bld) [Mass fraction] 7.0 % Critically high 4.5-6.2 [facility] Comment on above: Performed By: #### A 1C #### [facility] [address] [address] [address] Heidi Zhang LIPID PROFILEon 03-31-2022 CHOL-HDL RATIO NORM SEE BELOW Normal [facility] Comment on above: Result Comment: 3.3 - 4.4 LOW RISK 4.4 - 7.1 AVERAGE RISK 7.1 - 11.0 MODERATE RISK >11.0 HIGH RISK Performed By: #### L IPID #### [facility] [address] [address] [address] Heidi Zhang Cholesterol [Mass/Vol] 126 mg/dL Normal <=200 [facility] Comment on above: Performed By: #### L IPID #### [facility] [address] [address] [address] Heidi Zhang Cholesterol in HDL [Mass/Vol] 37 mg/dL Critically low 40-60 [facility] Comment on above: Performed By: #### L IPID #### [facility] [address] [address] [address] Heidi Zhang Cholesterol in LDL [Mass/Vol] 37.4 mg/dL Normal [facility] Comment on above: Performed By: #### L IPID #### [facility] [address] [address] [address] Heidi Zhang Cholesterol.total/Ch olesterol in HDL [Mass ratio] 3.4 {ratio} Normal [facility] Comment on above: Performed By: #### L IPID #### [facility] [address] [address] [address] Heidi Zhang HDL NORMAL > or = 60 mg/dl - LOW CARDIOVASCULAR RISK <40 mg/dl - HIGH CARDIOVASCULAR RISK Normal [facility] Comment on above: Performed By: #### L IPID #### [facility] [address] [address] [address] Heidi Zhang LDL CALC NORMAL SEE BELOW Normal [facility] Comment on above: Result Comment: <100 mg/dl OPTIMAL 100 - 129 mg/dl NEAR OR ABOVE OPTIMAL 130 - 159 mg/dl BORDERLINE HIGH 160 - 189 mg/dl HIGH >190 mg/dl VERY HIGH Performed By: #### L IPID #### [facility] [address] [address] [address] Heidi Zhang Triglyceride [Mass/Vol] 258 mg/dL Critically high <=150 [facility] Comment on above: Performed By: #### L IPID #### [facility] [address] [address] [address] Heidi Zhang VLDL CALC 51.6 mg/dL Normal [facility] Comment on above: Performed By: #### L IPID #### [facility] [id number] Heidi Zhang CT TEMP BONES WO IVCONon [facility] Vital Signs Date Time Vital Sign Value Performing Clinician Facility 12-15-2024 16:18-0500 Body height 193 cm Grant Sheth DPM Work Phone: [facility] 12-15-2024 16:18-0500 Body mass index (BMI) [Ratio] 35.67 kg/m2 Grant Sheth DPM Work Phone: [facility] 12-15-2024 16:18-0500 Body weight 132.9 kg Grant Sheth DPM Work Phone: [facility] 12-15-2024 16:18-0500 Respiratory rate 18 /min Grant Sheth DPM Work Phone: [facility] 12-08-2024 13:42-0500 Body height 193 cm Daria Noel PASTER OPERATOR Work Phone: [facility] 12-08-2024 13:42-0500 Body mass index (BMI) [Ratio] 35.67 kg/m2 Daria Noel PASTER OPERATOR Work Phone: [facility] 12-08-2024 13:42-0500 Body temperature 98.2 [degF] Daria Noel PASTER OPERATOR Work Phone: [facility] 12-08-2024 13:42-0500 Body weight 132.9 kg Daria Noel PASTER OPERATOR Work Phone: [facility] Comment on above: winter coat on 12-08-2024 13:42-0500 Diastolic blood pressure 68 mm[Hg] Daria Noel PASTER OPERATOR Work Phone: [facility] 12-08-2024 13:42-0500 Heart rate 113 /min Daria Noel PASTER OPERATOR Work Phone: [facility] 12-08-2024 13:42-0500 Respiratory rate 16 /min Daria Noel PASTER OPERATOR Work Phone: [facility] 12-08-2024 13:42-0500 SaO2% (BldA) [Mass fraction] 99 % Daria Noel PASTER OPERATOR Work Phone: [facility] 12-08-2024 13:42-0500 Systolic blood pressure 136 mm[Hg] Daria Noel PASTER OPERATOR Work Phone: [facility] 11-16-2024 09:50-0500 Body mass index (BMI) [Ratio] 37.08 kg/m2 Daria Noel PASTER OPERATOR Work Phone: [facility] 11-16-2024 09:50-0500 Body temperature 98.1 [degF] Daria Noel PASTER OPERATOR Work Phone: [facility] 11-16-2024 09:50-0500 Body weight 138.17 kg Daria Noel PASTER OPERATOR Work Phone: [facility] Comment on above: with winter coat on 11-16-2024 09:50-0500 Diastolic blood pressure 86 mm[Hg] Daria Noel PASTER OPERATOR Work Phone: [facility] 11-16-2024 09:50-0500 Heart rate 83 /min Daria Noel PASTER OPERATOR Work Phone: [facility] 11-16-2024 09:50-0500 Respiratory rate 22 /min Daria Noel PASTER OPERATOR Work Phone: [facility] 11-16-2024 09:50-0500 SaO2% (BldA) [Mass fraction] 92 % Daria Noel PASTER OPERATOR Work Phone: [facility] 11-16-2024 09:50-0500 Systolic blood pressure 122 mm[Hg] Daria Noel PASTER OPERATOR Work Phone: [facility] 09-08-2024 15:32-0500 Body height 193 cm Daria Noel PASTER OPERATOR Work Phone: [facility] 09-08-2024 15:32-0500 Body mass index (BMI) [Ratio] 37.25 kg/m2 Daria Noel PASTER OPERATOR Work Phone: [facility] 09-08-2024 15:32-0500 Body temperature 96.1 [degF] Daria Noel PASTER OPERATOR Work Phone: [facility] 09-08-2024 15:32-0500 Body weight 138.8 kg Daria Noel PASTER OPERATOR Work Phone: [facility] 09-08-2024 15:32-0500 Diastolic blood pressure 70 mm[Hg] Daria Noel PASTER OPERATOR Work Phone: [facility] 09-08-2024 15:32-0500 Heart rate 76 /min Daria Noel PASTER OPERATOR Work Phone: [facility] 09-08-2024 15:32-0500 Respiratory rate 18 /min Daria Noel PASTER OPERATOR Work Phone: [facility] 09-08-2024 15:32-0500 SaO2% (BldA) [Mass fraction] 99 % Daria Noel PASTER OPERATOR Work Phone: [facility] 09-08-2024 15:32-0500 Systolic blood pressure 112 mm[Hg] Daria Noel PASTER OPERATOR Work Phone: [facility] 09-08-2024 09:26-0500 Body height 193 cm Grant AMEZQUITAM Work Phone: [facility] 09-08-2024 09:26-0500 Body mass index (BMI) [Ratio] 37.61 kg/m2 Grant Sheth DPM Work Phone: [facility] 09-08-2024 09:26-0500 Body weight 140.16 kg Grant Sheth DPM Work Phone: [facility] 09-08-2024 09:26-0500 Respiratory rate 18 /min Grant Sheth DPM Work Phone: [facility] 08-02-2024 15:01-0400 Body height 193 cm Daria Noel PASTER OPERATOR Work Phone: [facility] 08-02-2024 15:01-0400 Body mass index (BMI) [Ratio] 37.61 kg/m2 Daria Noel PASTER OPERATOR Work Phone: [facility] 08-02-2024 15:01-0400 Body temperature 98.1 [degF] Daria Noel PASTER OPERATOR Work Phone: [facility] 08-02-2024 15:01-0400 Body weight 140.16 kg Daria Noel PASTER OPERATOR Work Phone: [facility] 08-02-2024 15:01-0400 Diastolic blood pressure 80 mm[Hg] Daria Noel PASTER OPERATOR Work Phone: [facility] 08-02-2024 15:01-0400 Heart rate 104 /min Daria Noel PASTER OPERATOR Work Phone: [facility] 08-02-2024 15:01-0400 Respiratory rate 20 /min Daria Noel PASTER OPERATOR Work Phone: [facility] 08-02-2024 15:01-0400 SaO2% (BldA) [Mass fraction] 100 % Daria Noel PASTER OPERATOR Work Phone: [facility] 08-02-2024 15:01-0400 Systolic blood pressure 118 mm[Hg] Daria Noel PASTER OPERATOR Work Phone: [facility] 07-22-2024 10:13-0400 Body height 193 cm Carmen William MD Work Phone: [facility] 07-22-2024 10:13-0400 Body mass index (BMI) [Ratio] 39.32 kg/m2 Carmen William MD Work Phone: [facility] 07-22-2024 10:13-0400 Body weight 146.51 kg Carmen William MD Work Phone: [facility] 06-22-2024 13:57-0400 Body height 193 cm Daria Noel PASTER OPERATOR Work Phone: [facility] 06-22-2024 13:57-0400 Body mass index (BMI) [Ratio] 39.32 kg/m2 Daria Noel PASTER OPERATOR Work Phone: [facility] 06-22-2024 13:57-0400 Body temperature 98.2 [degF] Daria Noel PASTER OPERATOR Work Phone: [facility] 06-22-2024 13:57-0400 Body weight 146.51 kg Daria Noel PASTER OPERATOR Work Phone: [facility] 06-22-2024 13:57-0400 Diastolic blood pressure 80 mm[Hg] Daria Noel PASTER OPERATOR Work Phone: [facility] 06-22-2024 13:57-0400 Heart rate 96 /min Daria Noel PASTER OPERATOR Work Phone: [facility] Comment on above: 98% O2 06-22-2024 13:57-0400 Systolic blood pressure 130 mm[Hg] Daria Noel PASTER OPERATOR Work Phone: [facility] 06-16-2024 13:53-0400 Body height 193 cm Grant Sheth DPM Work Phone: [facility] 06-16-2024 13:53-0400 Body mass index (BMI) [Ratio] 42.12 kg/m2 Grant Shaan DPM Work Phone: [facility] 06-16-2024 13:53-0400 Body weight 156.94 kg Grant Sheth DPM Work Phone: [facility] 06-16-2024 13:53-0400 Diastolic blood pressure 77 mm[Hg] Grant Sheth DPM Work Phone: [facility] 06-16-2024 13:53-0400 Heart rate 82 /min Grant Sheth DPM Work Phone: [facility] 06-16-2024 13:53-0400 Systolic blood pressure 128 mm[Hg] Grant Sheth DPM Work Phone: [facility] 12-03-2023 10:51-0500 Body height 193 cm Grant Sheth DPM Work Phone: [facility] 12-03-2023 10:51-0500 Body mass index (BMI) [Ratio] 37.98 kg/m2 Grant Sheth DPM Work Phone: [facility] 12-03-2023 10:51-0500 Body weight 141.52 kg Grant Sheth DPM Work Phone: [facility] 12-03-2023 10:51-0500 Diastolic blood pressure 85 mm[Hg] Grant Shaan DPM Work Phone: [facility] 12-03-2023 10:51-0500 Heart rate 81 /min Grant Sheth DPM Work Phone: [facility] 12-03-2023 10:51-0500 Systolic blood pressure 133 mm[Hg] Grant Shaan DPM Work Phone: [facility] 03-25-2023 14:00-0400 Body height 193.04 cm Agustin Nj Other [employer] Other 03-25-2023 14:00-0400 Body mass index (BMI) [Ratio] 38.95 kg/m2 Agustin Adancassidy Other [employer] Other 03-25-2023 14:00-0400 Body temperature 97.6 [degF] Agustin Adanban Other [employer] Other 03-25-2023 14:00-0400 Body weight 145.15 kg Agustin Adancassidy Other [employer] Other 03-25-2023 14:00-0400 Diastolic blood pressure 84 mm[Hg] Agustin Clem Other [employer] Other 03-25-2023 14:00-0400 Respiratory rate 20 /min Agustin Adancassidy Other [employer] Other 03-25-2023 14:00-0400 SaO2% (BldA) [Mass fraction] 96 % Agustin Adancassidy Other [employer] Other 03-25-2023 14:00-0400 Systolic blood pressure 132 mm[Hg] Agustin Adancassidy Other [employer] Other 10-31-2022 09:13-0500 Body temperature 98.2 [degF] Nicholas Jenkins MD Work Phone: [facility] 08-28-2021 10:30-0500 Body height 193.04 cm Agustin Adancassidy Other [employer] Other 08-28-2021 10:30-0500 Body mass index (BMI) [Ratio] 39.68 kg/m2 Agustin Clem Other [employer] Other 08-28-2021 10:30-0500 Body temperature 98.4 [degF] Agustin Nj Other [employer] Other 08-28-2021 10:30-0500 Body weight 147.87 kg Agustin Nj Other [employer] Other 08-28-2021 10:30-0500 Diastolic blood pressure 92 mm[Hg] Agustin Nj Other [employer] Other 08-28-2021 10:30-0500 Respiratory rate 20 /min Agustin Nj Other [employer] Other 08-28-2021 10:30-0500 SaO2% (BldA) [Mass fraction] 97 % Agustin Nj Other [employer] Other 08-28-2021 10:30-0500 Systolic blood pressure 160 mm[Hg] Agustin Nj Other [employer] Other Encounters Encounter Date Encounter Type Care Provider Facility Start: 01-11-2025 End: 01-11-2025 Orders Only Regan Ortega MD Work Phone: [facility] Comment on above: Lumbar spondylosis; Acute pain of right shoulder; Knee pain, unspecified chronicity, unspecified laterality; Medication refill Start: 12-30-2024 End: 12-30-2024 Orders Only Syed Ramirez PA-C Work Phone: [facility] Comment on above: Pain (Primary Dx) Start: 12-22-2024 End: 12-22-2024 ambulatory DERRICK BARNETT [facility] Start: 12-22-2024 End: 12-22-2024 ambulatory DERRICK BARNETT [facility] Start: 12-22-2024 ambulatory DERRICK Mcknight [facility] Start: 12-22-2024 End: 12-22-2024 ambulatory DERRICK BARNETT [facility] Start: 12-22-2024 End: 12-22-2024 ambulatory DERRICK BARNETT [facility] Start: 12-15-2024 End: 12-15-2024 Patient encounter procedure Grant Sheth DPM Work Phone: [facility] Comment on above: Diabetes mellitus du e to underlying condition with diabetic polyneuropathy, with long-term current use of insulin (CMS/HCC) (Primary Dx); Onychomycosis; Toe pain, left Start: 12-15-2024 End: 12-15-2024 ambulatory GRANT SHETH Not Available Start: 12-15-2024 End: 12-15-2024 Bamboo flowsheet Grant Sheth DPM Work Phone: [facility] Start: 12-15-2024 End: 12-15-2024 Bamboo flowsheet Grant Sheth DPM Work Phone: [facility] Start: 12-08-2024 End: 12-08-2024 Bamboo flowsheet Daria Noel PASTER OPERATOR Work Phone: [facility] Start: 12-08-2024 End: 12-08-2024 Bamboo flowsheet Daria Noel PASTER OPERATOR Work Phone: [facility] Start: 12-08-2024 End: 12-08-2024 Office outpatient visit 15 minutes Daria Noel PASTER OPERATOR Work Phone: [facility] Comment on above: Essential (primary) hypertension (CMS/HCC) (Primary Dx); Other specified anxiety disorders; Type 2 diabetes mellitus with diabetic neuropathy, without long-term current use of insulin (CMS/HCC); Type 2 diabetes mellitus with diabetic neuropathy, unspecified (CMS/HCC); Anxiety disorder, unspecified; Essential hypertension (CMS/HCC); Lumbar spondylosis; Acute pain of right shoulder; Knee pain, unspecified chronicity, unspecified laterality; Mixed hyperlipidemia (CMS/HCC); Medication refill Start: 12-08-2024 End: 12-08-2024 ambulatory DARIA NOEL Not Available Start: 12-07-2024 End: 12-07-2024 Clinisync Result Encounter Daria Noel PASTER OPERATOR Work Phone: [facility] Unsolicited Start: 12-07-2024 End: 12-07-2024 Clinisync Result Encounter Daria Noel PASTER OPERATOR Work Phone: [facility] Unsolicited Start: 12-05-2024 End: 12-05-2024 Refill Caro Jacques MA [facility] Comment on above: Anxiety disorder, un specified Start: 11-28-2024 End: 11-29-2024 Refill Regan Ortega MD Work Phone: [facility] Comment on above: Type 2 diabetes rayray itus with diabetic neuropathy, without long-term current use of insulin (CMS/HCC) Acute upper respirat ory infection, unspecified Start: 11-24-2024 End: 11-24-2024 Refill Daria Noel PASTER OPERATOR Work Phone: [facility] Comment on above: Essential (primary) hypertension (CMS/HCC); Anxiety disorder, unspecified Start: 11-16-2024 End: 11-16-2024 Bamboo flowsheet Daria Noel PASTER OPERATOR Work Phone: [facility] Start: 11-16-2024 End: 11-16-2024 Bamboo flowsheet Daria Noel PASTER OPERATOR Work Phone: [facility] Start: 11-16-2024 End: 11-16-2024 Office outpatient visit 10 minutes Daria Noel PASTER OPERATOR Work Phone: [facility] Comment on above: Chronic pain of righ t knee (Primary Dx); Lumbar spondylosis; Acute pain of right shoulder; Knee pain, unspecified chronicity, unspecified laterality Start: 11-16-2024 End: 11-16-2024 ambulatory DARIA NOEL Not Available Start: 11-11-2024 End: 11-11-2024 Telephone encounter Syed Ramirez PA-C Work Phone: Orthopaedics Start: 11-10-2024 End: 11-10-2024 Telephone encounter Partha Jackson PA-C Work Phone: Otolaryngology Comment on above: Appointment (Office use only slot) Start: 11-09-2024 End: 11-09-2024 Refill Daria Noel PASTER OPERATOR Work Phone: [facility] Comment on above: Essential (primary) hypertension (CMS/HCC); Anxiety disorder, unspecified Start: 10-24-2024 End: 10-24-2024 Orders Only Daria Noel PASTER OPERATOR Work Phone: [facility] Comment on above: Mixed hyperlipidemia (CMS/HCC) Hyperlipidemia, unsp ecified hyperlipidemia type (CMS/HCC); Essential hypertension (CMS/HCC); Type 2 diabetes mellitus with diabetic neuropathy, without long-term current use of insulin (CMS/HCC) Start: 10-04-2024 End: 10-04-2024 Refill Daria Noel PASTER OPERATOR Work Phone: [facility] Comment on above: Lumbar spondylosis; Acute pain of right shoulder; Knee pain, unspecified chronicity, unspecified laterality Start: 09-30-2024 End: 09-30-2024 ambulatory [facility] Start: 09-12-2024 End: 09-12-2024 ambulatory [facility] Start: 09-08-2024 End: 09-08-2024 Office outpatient visit 15 minutes Daria Noel PASTER OPERATOR Work Phone: [facility] Comment on above: Need for immunizatio n against influenza (Primary Dx); Type 2 diabetes mellitus with diabetic neuropathy, without long-term current use of insulin (CMS/HCC); Essential (primary) hypertension ([facility]); COPD with exacerbation ([facility]); Mixed hyperlipidemia ([facility]); Lumbar spondylosis; Acute pain of right shoulder; Knee pain, unspecified chronicity, unspecified laterality Start: 09-08-2024 End: 09-08-2024 ambulatory DARIA NOEL Not Available Start: 09-08-2024 End: 09-08-2024 Bamboo flowsheet Grant Sheth DPM Work Phone: [facility] Start: 09-08-2024 End: 09-08-2024 Bamboo flowsheet Grant Sheth DPM Work Phone: [facility] Start: 09-08-2024 End: 09-08-2024 Patient encounter procedure Grant Sheth DPM Work Phone: [facility] Comment on above: Diabetes mellitus du e to underlying condition with diabetic polyneuropathy, with long-term current use of insulin ([facility]) (Primary Dx); Onychomycosis; Toe pain, left Start: 09-08-2024 End: 09-08-2024 ambulatory GRANT SHETH Not Available Start: 09-06-2024 End: 09-06-2024 Telephone encounter Shirley Vargas SECURITY INSPECTOR [facility] Comment on above: re: Remaining PT (He called and lm to note that he is going to be stopping the OP PT and partake working out at gym in [place]. He said has a friend that will work with him w/ certain exercises to benefit from. He also said the copay is adding up and feels he can cont on w/ supervision at the gym.) Start: 08-31-2024 End: 08-31-2024 Refill Daria Noel PASTER OPERATOR Work Phone: [facility] Comment on above: Acute upper respirat ory infection, unspecified Start: 08-30-2024 End: 08-30-2024 Telephone encounter Abbi Delgado SECURITY INSPECTOR [facility] Comment on above: Cx PT today (He call ed noting not feeling well and unable to make PT today. I reminded and he confirmed 09/01.) Start: 08-24-2024 End: 08-24-2024 ambulatory Abbi Delgado SECURITY INSPECTOR [facility] Comment on above: Frequent falls; S/P total knee arthroplasty, right; Primary localized osteoarthrosis of multiple sites; Presence of left artificial knee joint; Localized osteoarthritis of right knee Start: 08-24-2024 End: 08-24-2024 Bamboo flowsheet Abbi Delgado SECURITY INSPECTOR [facility] Start: 08-24-2024 End: 08-24-2024 Bamboo flowsheet Abbi Delgado SECURITY INSPECTOR [facility] Start: 08-19-2024 End: 08-20-2024 Clinisync Result Encounter Daria Noel PASTER OPERATOR Work Phone: [facility] Unsolicited Start: 08-19-2024 End: 08-20-2024 Clinisync Result Encounter Daria Noel PASTER OPERATOR Work Phone: [facility] Unsolicited Start: 08-17-2024 End: 08-17-2024 ambulatory Marco Izquierdo PT Work Phone: [facility] Comment on above: Difficulty walking ( Primary Dx); Chronic pain of both knees; Weakness of both lower extremities Start: 08-17-2024 End: 08-17-2024 Bamboo flowsheet Marco Izquierdo PT Work Phone: [facility] Start: 08-17-2024 End: 08-17-2024 Bamboo flowsheet Marco Izquierdo PT Work Phone: [facility] Start: 08-16-2024 End: 08-16-2024 Refella Jacques MA [facility] Comment on above: Lumbar spondylosis; Acute pain of right shoulder; Knee pain, unspecified chronicity, unspecified laterality Start: 08-11-2024 End: 08-11-2024 Orders Only Daria Noel PASTER OPERATOR Work Phone: [facility] Comment on above: Type 2 diabetes rayray itus with diabetic neuropathy, without long-term current use of insulin ([facility]) (Primary Dx) Anemia, unspecified type (Primary Dx) Start: 08-09-2024 End: 08-09-2024 Telephone encounter Marco Izquierdo PT Work Phone: [facility] Comment on above: RS PT Eval needed (Jonathan york called noting he does not have his car back yet and no transportation available; he requested to rs his PT eval. I offered 08/17 and he took it w/ Marco Izquierdo, PT.) Start: 08-04-2024 End: 08-04-2024 Clinisync Result Encounter Daria Noel PASTER OPERATOR Work Phone: [facility] Unsolicited Start: 08-04-2024 End: 08-04-2024 Clinisync Result Encounter Daria Noel PASTER OPERATOR Work Phone: [facility] Unsolicited Start: 08-03-2024 End: 08-03-2024 Refill Daria Noel PASTER OPERATOR Work Phone: [facility] Comment on above: Mixed hyperlipidemia (CMS/HCC) Start: 08-02-2024 End: 08-02-2024 Office outpatient visit 25 minutes Daria Noel PASTER OPERATOR Work Phone: [facility] Comment on above: COPD with exacerbati on (CMS/HCC) (Primary Dx); Hypothyroidism, unspecified (CMS/HCC); Essential (primary) hypertension (CMS/HCC); Anemia, unspecified type; Type 2 diabetes mellitus with diabetic neuropathy, without long-term current use of insulin (CMS/HCC); Frequent falls; S/P total knee arthroplasty, right; Primary localized osteoarthrosis of multiple sites; Presence of left artificial knee joint; Localized osteoarthritis of right knee; Mixed hyperlipidemia (CMS/HCC) Start: 08-02-2024 End: 08-02-2024 ambulatory DARIA BROWNTRICK Not Available Start: 08-02-2024 End: 08-02-2024 Bamboo flowsheet Daria Noel PASTER OPERATOR Work Phone: [facility] Start: 08-02-2024 End: 08-02-2024 Bamboo flowsheet Daria Noel PASTER OPERATOR Work Phone: [facility] Start: 07-22-2024 End: 07-22-2024 Patient encounter procedure Carmen William MD Work Phone: Orthopaedics Comment on above: Prosthetic joint inf ection, sequela (Primary Dx) Start: 07-22-2024 End: 07-22-2024 ambulatory REGAN Mame ORTEGA Facility:[facility] Start: 07-22-2024 End: 07-22-2024 Subsequent hospital visit by physician Xr Main A21 Radiology Comment on above: 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, due to unspecified organism (HCC) [M00.9] Start: 07-19-2024 End: 07-19-2024 Refill Daria Noel PASTER OPERATOR Work Phone: [facility] Comment on above: Acute upper respirat ory infection, unspecified Start: 07-17-2024 End: 07-18-2024 Refill Daria Noel PASTER OPERATOR Work Phone: [facility] Comment on above: Lumbar spondylosis; Acute pain of right shoulder; Knee pain, unspecified chronicity, unspecified laterality Start: 07-13-2024 End: 07-13-2024 Orders Only Carmen William MD Work Phone: Orthopaedics Comment on above: 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, due to unspecified organism (HCC) (Primary Dx) Start: 07-06-2024 End: 07-06-2024 Clinisync Result Encounter Shaikh [place] WATERMAN Work Phone: [facility] Department Unsolicited Start: 07-06-2024 End: 07-06-2024 Clinisync Result Encounter Shaikh [place] WATERMAN Work Phone: [facility] Unsolicited Start: 07-04-2024 End: 07-04-2024 Clinisync Result Encounter Generic External Data Provider [facility] Unsolicited Start: 07-04-2024 End: 07-04-2024 Clinisync Result Encounter Generic External Data Provider [facility] Unsolicited Start: 07-04-2024 End: 07-04-2024 ambulatory JUSTIN Rodriguez [facility] Start: 07-04-2024 End: 07-04-2024 Subsequent hospital visit by physician Shaikh [place] WATERMAN [facility] Start: 06-22-2024 End: 06-22-2024 Bamboo flowsheet Daria Noel PASTER OPERATOR Work Phone: [facility] Start: 06-22-2024 End: 06-22-2024 Bamboo flowsheet Daria Noel PASTER OPERATOR Work Phone: [facility] Start: 06-22-2024 End: 06-22-2024 Office outpatient visit 25 minutes Daria Noel PASTER OPERATOR Work Phone: [facility] Comment on above: Diabetic neuropathy, painful (CMS/HCC) (Primary Dx); Type 2 diabetes mellitus with diabetic neuropathy, unspecified (CMS/HCC); COPD with exacerbation (CMS/HCC); Essential (primary) hypertension (CMS/HCC); Class 2 obesity without serious comorbidity with body mass index (BMI) of 39.0 to 39.9 in adult, unspecified obesity type; Lumbar spondylosis; Acute pain of right shoulder; Knee pain, unspecified chronicity, unspecified laterality Start: 06-22-2024 End: 06-22-2024 ambulatory DARIA BROWNTRICK Not Available Start: 06-21-2024 End: 06-21-2024 Refill Daria Noel PASTER OPERATOR Work Phone: [facility] Comment on above: COPD with exacerbati on (CMS/HCC) (Primary Dx) Start: 06-16-2024 End: 06-16-2024 Patient encounter procedure Grant Sheth DPM Work Phone: [facility] Comment on above: Diabetes mellitus du e to underlying condition with diabetic polyneuropathy, with long-term current use of insulin (CMS/HCC) (Primary Dx); Onychomycosis; Toe pain, left; Xerosis cutis Start: 06-16-2024 End: 06-16-2024 ambulatory GRANT Mame SHETH Not Available Start: 06-14-2024 End: 06-14-2024 Orders Only Daria Noel PASTER OPERATOR Work Phone: [facility] Comment on above: Mixed hyperlipidemia (CMS/HCC) (Primary Dx) Start: 06-13-2024 End: 06-13-2024 Clinisync Result Encounter Generic External Data Provider [facility] External Department Unsolicited Start: 06-13-2024 End: 06-13-2024 Clinisync Result Encounter Generic External Data Provider [facility] External Department Unsolicited Start: 06-13-2024 End: 06-13-2024 ambulatory JUSTIN Rodriguez [facility] Start: 06-07-2024 End: 06-07-2024 Refill Daria Noel PASTER OPERATOR Work Phone: [facility] Start: 06-06-2024 End: 06-06-2024 Refill Daria Noel PASTER OPERATOR Work Phone: [facility] Comment on above: Anxiety disorder, un specified Start: 06-02-2024 End: 06-02-2024 ambulatory Linh Cheatham UX CONSULTANT-BRAND MARKETING COORDINATOR Facility:[facility] Start: 05-27-2024 End: 05-27-2024 ambulatory PARTHA JACKSON Facility:[facility] Start: 05-27-2024 End: 05-27-2024 Patient encounter procedure Partha Jackson PA-C Work Phone: Otolaryngology Comment on above: 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 Start: 05-25-2024 Telephone encounter Partha de la rosa PA-C Work Phone: [facility] Comment on above: Patient Question Start: 05-24-2024 Refill Partha Dumas c PA-C Work Phone: [facility] Comment on above: Refill Request Start: 05-24-2024 Refill Partha meraz PA-C Work Phone: Otolaryngology Comment on above: Refill Request Start: 05-23-2024 End: 05-23-2024 ambulatory DARIA BERT Not Available Start: 05-05-2024 End: 05-05-2024 ambulatory Shaikh [place] MD Facility:[facility] Start: 05-02-2024 End: 05-02-2024 ambulatory SHAIKH MAINE Not Available Start: 04-14-2024 End: 04-14-2024 ambulatory Shaikh [place] MD Facility:[facility] Start: 04-04-2024 End: 04-04-2024 ambulatory Shaikh Chance [place] MD Facility:[facility] Start: 03-21-2024 End: 03-21-2024 ambulatory Shaikh [place] MD Facility:[facility] Start: 03-07-2024 End: 03-07-2024 ambulatory Johnny Cespedes MD Facility:[facility] Start: 03-01-2024 End: 03-01-2024 ambulatory [facility] Start: 02-28-2024 End: 02-28-2024 ambulatory AMBER Rodriguez [facility] Start: 02-25-2024 End: 02-25-2024 ambulatory Linh Cheatham UX CONSULTANT-BRAND MARKETING COORDINATOR Facility:[facility] Start: 02-22-2024 End: 02-22-2024 ambulatory Linh Cheatham UX CONSULTANT-BRAND MARKETING COORDINATOR Facility:[facility] Start: 02-03-2024 End: 02-17-2024 ambulatory JOSE [facility] Start: 02-02-2024 End: 02-10-2024 Evaluation and management of inpatient Duong Maguire DO Facility:[facility] Start: 01-19-2024 End: 01-19-2024 ambulatory SHAIKH MAINE Not Available Start: 01-06-2024 End: 01-06-2024 ambulatory SHAIKH MAINE Not Available Start: 12-31-2023 End: 12-31-2023 ambulatory Johnny Cespedes MD Facility:[facility] Start: 12-29-2023 End: 12-31-2023 ambulatory JUSTIN Rodriguez [facility] Start: 12-09-2023 Patient encounter procedure Daria Luevanozpatrick PASTER OPERATOR Work Phone: [facility] Start: 12-07-2023 End: 12-07-2023 ambulatory JUSTIN Rodriguez [facility] Start: 12-07-2023 End: 12-07-2023 Subsequent hospital visit by physician Shaikh [place] WATERMAN Work Phone: [facility] Start: 12-04-2023 ambulatory MAINE Facility: [facility] Start: 12-03-2023 Chart abstracting Grant sexton DPM Work Phone: [facility] Start: 12-03-2023 End: 12-03-2023 Patient encounter procedure Grant Sheth DPM Work Phone: [facility] Comment on above: Diabetes mellitus du e to underlying condition with diabetic polyneuropathy, with long-term current use of insulin (CMS/HCC) (Primary Dx); Onychomycosis; Toe pain, left Start: 11-30-2023 Refill Shaikh [place] WATERMAN Work Phone: [facility] Comment on above: Hypothyroidism, unsp ecified (CMS/HCC); Acute pain of left knee; Hyperlipidemia, unspecified hyperlipidemia type (CMS/HCC); Acute upper respiratory infection, unspecified; Low back pain, unspecified; Other specified anxiety disorders; Essential hypertension (CMS/HCC) Start: 11-04-2023 End: 11-04-2023 Emergency department patient visit Shaikh [place] Facility:[facility] Start: 11-03-2023 End: 11-03-2023 ambulatory Johnny Cespedes MD Facility:[facility] Start: 09-01-2023 End: 09-01-2023 ambulatory Lucía Bhavin Montero UX CONSULTANT-BRAND MARKETING COORDINATOR Facility[facility] Start: 08-31-2023 End: 08-31-2023 ambulatory Johnny Cespedes MD Facility:[facility] Start: 08-27-2023 End: 08-27-2023 ambulatory Linh Simone Linden UX CONSULTANT-BRAND MARKETING COORDINATOR Facility:[facility] Start: 08-24-2023 End: 08-24-2023 ambulatory Linh Simone Linden UX CONSULTANT-BRAND MARKETING COORDINATOR Facility:[facility] Start: 08-20-2023 End: 08-20-2023 [facility]SULT[facility]-BRAND MARKETING COORDINATOR Facility:[facility] Start: 08-17-2023 End: 08-17-2023 ambulatory Derrick Beaulieu MD Facility:[facility] Start: 08-17-2023 End: 08-17-2023 ambulatory Linh Simone Linden UX CONSULTANT-BRAND MARKETING COORDINATOR Facility:[facility] Start: 08-13-2023 End: 08-13-2023 ambulatory Linh Simone Linden UX CONSULTANT-BRAND MARKETING COORDINATOR Facility:[facility] Start: 08-11-2023 ambulatory Johnny Cespedes MD Facility:[facility] Start: 08-10-2023 End: 08-10-2023 ambulatory Derrick Beaulieu MD Facility:[facility] Start: 08-06-2023 End: 08-06-2023 ambulatory Linh Simone Donaldsonzman UX CONSULTANT-BRAND MARKETING COORDINATOR Facility:[facility] Start: 08-03-2023 End: 08-03-2023 [facility]X CONSULTANT-BRAND MARKETING COORDINATOR Facility:[facility] Start: 07-31-2023 End: 07-31-2023 ambulatory Lucía Bhavin MitchellMontero UX CONSULTANT-BRAND MARKETING COORDINATOR Facility:[facility] Start: 07-21-2023 End: 07-30-2023 Evaluation and management of inpatient Starla Marie PA-C Facility:[facility] Start: 06-10-2023 End: 06-12-2023 Patient encounter status [address] ffin Radiology Start: 06-10-2023 End: 06-12-2023 Subsequent hospital visit by physician Mth Xr Dr Room 4 [facility] Laboratory Comment on above: 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 ([place], [place]) Start: 05-25-2023 ambulatory PCP UNKNOWN Facility:[id number] Start: 04-14-2023 End: 04-14-2023 ambulatory Shaikh [place] Facility:[facility] Start: 04-14-2023 End: 04-14-2023 ambulatory MD Shaikh Grove Work Phone: [facility] Work Phone: Start: 04-14-2023 End: 04-14-2023 Patient encounter procedure MD Shaikh Grove Work Phone: [facility]-CT Scan [facility] [place] Work Phone: Start: 04-09-2023 NPVRFRL, Provider: Mily Marlow, Status: Pen, Time: 10:00 AM Mily Marlow MD Work Phone: [facility] 600 DO Work Phone: Start: 04-09-[address] Mily Marlow Facility: Start: 04-08-2023 AUDIT Mily bales MD Work Phone: [facility] 600 DO Work Phone: Start: 04-03-2023 End: 04-03-2023 ambulatory Agustin Nj Other [employer] Other Start: 04-03-2023 Telephone encounter Agustin Nj [facility] Start: 03-27-2023 End: 03-28-2023 ambulatory SHAIKH MAINE Facility:[facility] Start: 03-25-2023 End: 03-25-2023 ambulatory Agustin Adancassidy Other [facility] Danger Other Start: 03-25-2023 Office outpatient vi sit 15 minutes Agustin Nj [facility] Start: 03-25-2023 End: 04-14-2023 Pre-admission assessment Derrick Buck [facility] Start: 02-24-2023 End: 02-24-[address] BRENDA SUÁREZ . Facility: Start: 02-15-2023 End: 02-15-2023 ambulatory KIM ORELLANA . 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 (Primary Dx); Fluid level behind tympanic membrane of right ear; Mixed conductive and sensorineural hearing loss of right ear with restricted hearing of left ear; Status post tympanoplasty; Impacted cerumen of left ear Start: 12-22-2022 End: 12-23-2022 ambulatory SHAIKH Jonathan GROVE Facility: Start: 12-02-2022 End: 12-02-2022 ambulatory Agustin Nj Other [facility] Danger Other Start: 12-02-2022 Telephone encounter Agustin Nj [facility] Start: 11-06-2022 End: 11-06-2022 ambulatory Agustin Nj Other [employer] Other Start: 11-06-2022 Telephone encounter Nicholas raya MD Work Phone: Otolaryngology Comment on above: Patient Question; Or ders Start: 10-31-2022 End: 10-31-2022 Patient encounter procedure Nicholas Jenkins MD Work Phone: Otolaryngology Comment on above: Acute recurrent fron monica sinusitis; Other chronic sinusitis Start: 10-13-2022 End: 10-14-2022 ambulatory CALVOROLF RAMÍREZD Facility:[facility] Start: 10-03-2022 End: 10-03-2022 ambulatory Marlin Christina Other [employer] Other Start: 10-03-2022 Telephone encounter Marlin Christina [facility] Start: 08-19-2022 End: 08-19-2022 Patient encounter procedure [...] 07-17-2022 End: 07-17-2022 ambulatory Marlin Christina Other [employer] Other Start: 07-17-2022 Telephone encounter Marlin Christina [facility] Start: 06-19-2022 End: 06-20-2022 ambulatory CALVO H FAWWAD Facility:[facility] Start: 04-28-2022 End: 04-29-2022 ambulatory SHAIKH Jonathan GROVE Facility:[facility] Start: 04-09-2022 End: 04-09-2022 ambulatory Agustin Nj Other [employer] Other Start: 04-09-2022 Telephone encounter Agustin Nj [facility] Start: 03-31-2022 End: 04-01-2022 ambulatory SHAIKH Jonathan GROVE Facility:[facility] Start: 02-27-2022 End: 02-27-2022 Patient encounter procedure Shikha Julissa FLORIAN Work Phone: Audiology Comment on above: [...] Refill Request Start: 08-28-2021 End: 08-28-2021 ambulatory Agustin Nj Other [employer] Other Start: 08-28-2021 Office outpatient vi sit 15 minutes Agustin Nj [facility] Start: 03-06-2021 End: 03-06-2021 Subsequent hospital visit by physician Shari [facility] Vonda Work Phone: Radiology Comment on above: 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.A31] Start: 11-16-2017 End: 11-17-2017 Ambulatory DEFAULT PHYSICIAN Facility:[facility] Patient encounter status Mily Marlow MD Work Phone: [facility] 600 DO Work Phone: Procedures Date Procedure Procedure Detail Performing Clinician Start: 12-07-2024 MLR HEMOGLOBIN A1C Brit elzbieta Bert PASTER OPERATOR Work Phone: Start: 08-19-2024 OCCULT BLOOD* Daria Bert PASTER OPERATOR Work Phone: Start: 08-04-2024 ALL CBC WITH AUTO DIFF Daria Noel PASTER OPERATOR Work Phone: Start: 07-22-2024 Radiologic exam knee complete 4/more views Roberto Brito PA-C Work Phone: Start: 07-06-2024 ALL CBC WITH AUTO DIFF Shaikh [place] WATERMAN Work Phone: Start: 07-04-2024 Hemoglobin glycosyla lacy a1c Justin Mcgowan MD Work Phone: Start: 07-04-2024 MHPT HEMOGLOBIN A1C Gen greta External Data Provider Start: 06-13-2024 MHPT SEDIMENTATION RATE Generic External Data Provider Start: 12-07-2023 C-reactive protein Justin Mcgowan MD Work Phone: Start: 12-07-2023 Sedimentation rate r bc automated Justin Mcgowan MD Work Phone: Start: 06-10-2023 Radiologic exam ches t 2 [...] orbit sella/post fossa/ear w/o contrast matrl Gifty Ball MD Work Phone: Start: 2018 Colonoscopy Shaikh Reagan june MD Work Phone: Amputation of toe Derrick erwin Comment on above: All toes have been a mputated on R foot Amputation of toe Reagan june Work Phone: Arthroplasty of knee [place] Work Phone: Cardiac catheterization Rodrigo Buck Cholecystectomy Derrick valle Cholecystectomy Calvojonathan spain Work Phone: H/O: surgery Status post tympanoplasty Gifty Ball MD Work Phone: H/O: surgery Status post tympanoplasty Partha Sukalac PA-C Work Phone: H/O: surgery Status post tympanoplasty Partha Sukalac PA-C Work Phone: Hand surgery care plan Gino Buck Procedure on back Shaikh Gabinobridgette june Work Phone: Total colonoscopy Shaikh Reagan june Work Phone: Comment on above: 2017; Total replacement of left knee joint Derrick Buck Plan of Treatment Date Care Activity Detail Author Start: 2028 Screening for malignant neoplasm of colon [facility] Start: 12-05-2026 Glaucoma screening Diabetes: Retinopathy Screening [facility] Start: 03-02-2025 End: 03-02-2025 Patient encounter procedure 03/02/2025 3:30 PM EDT Procedure Visit [facility] [address] [facility] [address] [place] [address] Grant Sheth DPM [address] [address] [facility] Start: 01-24-2025 End: 01-24-2025 Patient encounter procedure Orthopaedics Comment on above: discuss left knee revision/followup LEFT KNEE Start: 01-17-2025 End: 01-17-2025 Patient encounter procedure 01/17/2025 1:25 PM EDT Office Visit Otolaryngology [address] [address] Partha Jackson PA-C [address] [place] [address] Ear follow up and med renewal Otolaryngology Comment on above: Ear follow up and med renewal Start: 01-01-2025 Hemoglobin A1c measurement HbA1C [facility] Start: 12-15-2024 End: 12-15-2024 Patient encounter procedure [facility] Comment on above: Diabetes mellitus due to underlying cond ition with diabetic polyneuropathy, with long-term current use of insulin ([facility]) (Primary Dx); Onychomycosis; Toe pain, left Start: 12-13-2024 End: 12-13-2024 Patient encounter procedure 12/13/2024 11:20 AM EST Office Visit Otolaryngology [address] [address] Partha Jackson PA-C [address] [place], [place] [phone] Ear follow up and med renewal Otolaryngology Comment on above: Ear follow up and med renewal Start: 12-08-2024 End: 12-08-2024 Patient encounter procedure [facility] Comment on above: Arrived Start: 12-06-2024 End: 12-06-2024 Patient encounter procedure 12/06/2024 4:30 PM EST Procedure Visit [facility] [address] [place] [address] Grant Sheth DPM [address] [address] [facility] Start: 11-28-2024 End: 11-28-2024 Patient encounter procedure 11/28/2024 3:30 PM EST Office Visit Otolaryngology [address] [address] Partha Jackson PA-C [address] [place], [place] [phone] follow up Otolaryngology Comment on above: follow up Start: 11-24-2024 End: 11-24-2024 Patient encounter procedure 11/24/2024 3:00 PM EST Office Visit Plastic Surgery [address] [address] Jennifer Rasmussen APRN.BRAND MARKETING COORDINATOR [address] [place], [place] [phone] cyst on leg Plastic Surgery Comment on above: cyst on leg Start: 11-17-2024 End: 11-17-2024 Patient encounter procedure 11/17/2024 1:40 PM EST Office Visit [facility] [address] [phone] Grant Sheth, CHEL[place] [address] [address] [facility] Start: 11-16-2024 End: 11-16-2024 Patient encounter procedure 11/16/2024 10:00 AM EST Office Visit [facility] [address] [place] [address] Daria Noel NP [address] [place] [phone] Arrived [facility] Comment on above: Arrived Start: 11-15-2024 End: 11-15-2024 Patient encounter procedure 11/15/2024 11:20 AM EST Office Visit Otolaryngology [address] [address] Partha Jackson PA-C [address] [place] [address] Ear follow up and med renewal Otolaryngology Comment on above: Ear follow up and med renewal Start: 10-27-2024 End: 10-27-2024 Patient encounter procedure 10/27/2024 10:30 AM EST Office Visit [facility] [address] [place] [address] Daria Noel NP [address] [place] [address] [facility] Start: 10-19-2024 Advance Directive Discussion Advance Directive Discussion [facility] Start: 10-08-2024 End: 09-08-2025 Hemoglobin A1c/Hemoglobin.total in Blood Hemoglobin A1c Lab Routine Type 2 diabetes mellitus with diabetic neuropathy, without long-term current use of insulin ([facility]) Expected: 10/08/2024 (Approximate), Expires: 09/08/2025 [facility] Work Phone: Comment on above: Expected: 10/08/2024 (Approximate), Expi res: 09/08/2025 Start: 10-03-2024 Hemoglobin A1c measurement Diabetes: Hemoglobin A1C [facility] Start: 09-29-2024 End: 09-29-2024 Patient encounter procedure 09/29/2024 3:10 PM EST Office Visit [facility] [address] [facility] [address] [place] [phone] Grant Sheth DPM [address] [facility] [place] [address] [facility] Start: 09-21-2024 End: 09-21-2024 Patient encounter procedure 09/21/2024 2:30 PM EST Office Visit [facility] [address] [place] [address] Daria Noel, NUNU [address] [place] [address] [facility] Start: 09-14-2024 End: 09-14-2024 ambulatory 09/14/2024 2:00 PM EST Treatment [facility] [address] [place] [address] Marco Izquierdo, PT [address] [place] [address] [facility] Start: 09-12-2024 End: 09-12-2024 ambulatory 09/12/2024 2:00 PM EST Treatment [facility] [address] [place] [address] Abbi Delgado, SECURITY INSPECTOR [facility] Start: 09-10-2024 Glaucoma screening Diabetes: Retinopathy Screening [facility] Start: 09-08-2024 End: 09-08-2024 Patient encounter procedure 09/08/2024 3:30 PM EST Office Visit [facility] [address] [place] [address] Daria Noel NP [address] [place] [address] [facility] Start: 09-08-2024 End: 09-08-2024 ambulatory 09/08/2024 2:30 PM EST Treatment [facility] [address] [place] [address] Abbi Delgado, SECURITY INSPECTOR [facility] Start: 09-08-2024 End: 09-08-2024 Patient encounter procedure [facility] Comment on above: Diabetes mellitus due to underlying cond ition with diabetic polyneuropathy, with long-term current use of insulin ([facility]) (Primary Dx); Onychomycosis; Toe pain, left Start: 09-06-2024 End: 09-06-2024 ambulatory [facility] Start: 09-05-2024 End: 09-05-2024 Patient encounter procedure 09/05/2024 3:00 PM EST Office Visit [facility] [address] [place] [phone] Daria Noel, PASTER OPERATOR [address] [place] [address] [facility] Start: 09-01-2024 End: 09-01-2024 ambulatory [facility] Start: 08-30-2024 End: 08-30-2024 ambulatory 08/30/2024 2:30 PM EST Treatment [facility] [address] [facility] [address] [place] [address] Abbi Delgado PTA [facility] Start: 08-26-2024 End: 08-26-2024 ambulatory 08/26/2024 10:30 AM EST Treatment [facility] [address] [facility] [address] [place] [address] Abbi Delgado PTA [facility] Start: 08-25-2024 End: 08-25-2024 Patient encounter procedure 08/25/2024 2:20 PM EST Office Visit [facility] [address] [facility] [address] [place] [address] Grant Sheth DPM [address] [facility] [place] [address] [facility] Start: 08-24-2024 End: 08-24-2024 ambulatory [facility] Comment on above: Frequent falls; S/P total knee arthroplasty, right; Primary localized osteoarthrosis of multiple sites; Presence of left artificial knee joint; Localized osteoarthritis of right knee Start: 08-17-2024 End: 08-17-2024 ambulatory [facility] Comment on above: Arrived Start: 08-11-2024 End: 08-11-2025 Measurement of occult blood in single stool specimen Occult blood x 1, stool Lab Routine Anemia, unspecified type Expected: 08/11/2024 (Approximate), Expires: 08/11/2025 [facility] Work Phone: Comment on above: Expected: 08/11/2024 (Approximate), Expi res: 08/11/2025 Start: 08-10-2024 End: 08-10-2024 ambulatory 08/10/2024 12:00 PM EDT Evaluation [facility] [address] [facility] [address] [place] [address] Marco Izquierdo, PT [address] [facility] [address] [place] [address] [facility] Start: 08-05-2024 End: 08-05-2024 Patient encounter procedure 08/05/2024 10:40 AM EDT Office Visit Plastic Surgery [address] [address] Jennifer Rasmussen APRN.BRAND MARKETING COORDINATOR [address] [place] [address] Cyst / Left Leg Plastic Surgery Comment on above: Cyst / Left Leg Start: 08-02-2024 End: 08-02-2024 Patient encounter procedure [facility] Comment on above: Arrived Start: 08-02-2024 End: 08-02-2025 CBC W Auto Differential panel - Blood CBC and differential Lab Routine Essential (primary) hypertension (CMS/HCC) Type 2 diabetes mellitus with diabetic neuropathy, without long-term current use of insulin (CMS/HCC) Expected: 08/02/2024 (Approximate), Expires: 08/02/2025 [facility] Work Phone: Comment on above: Expected: 08/02/2024 (Approximate), Expi res: 08/02/2025 Start: 08-02-2024 End: 10-15-2025 Cobalamin (Vitamin B12) [Mass/volume] in Serum or Plasma Vitamin B12 Lab Routine Anemia, unspecified type Expected: 08/02/2024 (Approximate), Expires: 08/02/2025 [facility] Comment on above: Expected: 08/02/2024 (Approximate), Expi res: 08/02/2025 Start: 08-02-2024 End: 08-02-2025 Ferritin [Mass/volume] in Serum or Plasma Ferritin Lab Routine Anemia, unspecified type Expected: 08/02/2024 (Approximate), Expires: 08/02/2025 [facility] Comment on above: Expected: 08/02/2024 (Approximate), Expi res: 08/02/2025 Start: 08-02-2024 End: 08-02-2025 Iron + transferrin + TIBC Iron + transferrin + TIBC Lab Routine Anemia, unspecified type Expected: 08/02/2024 (Approximate), Expires: 08/02/2025 [facility] Comment on above: Expected: 08/02/2024 (Approximate), Expi res: 08/02/2025 Start: 07-22-2024 End: 07-22-2024 Patient encounter procedure 07/22/2024 10:00 AM EDT Office Visit Orthopaedics [address] [address] Carmen William MD [address] [place] [phone] orq for painful bilateral total knee arthroplasty. Orthopaedics Comment on above: orq for painful bilateral total knee art hroplasty. Start: 06-28-2024 End: 06-28-2024 Patient encounter procedure 06/28/2024 11:20 AM EDT Office Visit Otolaryngology [address] [address] Partha Jackson PA-C [address] [place] [address] Follow up/ medication refill Otolaryngology Comment on above: Follow up/ medication refill Start: 06-26-2024 GFR test (Diabetes, CKD 3-4, OR last GFR 15-59) GFR test (Diabetes, CKD 3-4, OR last GFR 15-59) [facility] Start: 06-26-2024 Urine screening for protein Diabetes: Urine Protein Screening [facility] Start: 06-22-2024 End: 06-22-2024 Patient encounter procedure [facility] Comment on above: Arrived Start: 06-19-2024 COVID-19 Vaccine () COVID-19 Vaccine () [facility] Start: 06-19-2024 Covid-19 Vaccine () Covid-19 Vaccine () [facility] Start: 06-19-2024 Influenza vaccination Influ[facility] Vacc[facility] Start: 06-17-2024 End: 06-17-2024 Patient encounter procedure 06/17/2024 8:40 AM EDT Office Visit Plastic Surgery [address] [address] Jennifer Rasmussen APRN.BRAND MARKETING COORDINATOR [address] [place] [address] cyst on leg Plastic Surgery Comment on above: cyst on leg Start: 06-16-2024 End: 06-16-2024 Patient encounter procedure 06/16/2024 2:10 PM EDT Office Visit [facility] [address] [place] [address] Grant Sheth DPM [address] [facility] [address] [place] [address] [facility] Start: 06-10-2024 GFR test (Diabetes, CKD 3-4, OR last GFR 15-59) GFR test (Diabetes, CKD 3-4, OR last GFR 15-59) [facility] Start: 05-27-2024 End: 05-27-2024 Patient encounter procedure 05/27/2024 3:30 PM EDT Office Visit Otolaryngology [address] [address] Partha Jackson PA-C [address] [place] [address] Follow up/ medication refill Otolaryngology Comment on above: Follow up/ medication refill Start: 05-19-2024 Influenza vaccination Flu vaccine (#1) [facility] Start: 05-05-2024 Hemoglobin A1c measurement HbA1C [facility] Start: 02-11-2024 End: 02-11-2024 Patient encounter procedure 02/11/2024 11:10 AM EDT Office Visit [facility] [address] [facility] [address] [place] [address] Grant Sheth DPM [address] [facility] [address] [place] [address] [facility] Start: 02-04-2024 Hemoglobin A1c measurement Diabetes: Hemoglobin A1C [facility] Start: 12-09-2023 End: 12-09-2023 Patient encounter procedure 12/09/2023 2:00 PM EST Office Visit [facility] [address] [place] [phone] Shaikh Grove MD [address] [place] [address] [facility] Start: 12-03-2023 End: 12-03-2023 Patient encounter procedure [facility] Start: 10-19-2023 Advance Directive Discussion Advance Directive Discussion [facility] Start: 10-19-2023 Annual Wellness Visit (Medicare Advantage) Annual Wellness Visit (Medicare Advantage) [facility] Start: 09-29-2023 FUV, Provider: Mily Marlow, Status: Pen, Time: 10:50 AM FUV, Provider: Mily Marlow, Status: Pen, Time: 10:50 AM [place] [address] DO Work Phone: Start: 06-25-2023 End: 06-25-2023 Admission to same day surgery center 06/25/2023 Surgery IP Unit Justin Mcgowan MD [address] [place] [address] [address] [place] [address] KN[facility]Y [facility] Comment on above: KNEE TOTAL ARTHROPLASTY Start: 06-25-2023 End: 06-25-2023 Anesthesia consultation 06/25/2023 Anesthesia Event IP Unit Kristal Nolasco APRN - [facility] Start: 06-25-2023 End: 06-25-2023 Arthrp kne condyle&platu medial&lat compartments KNEE TOTAL ARTHROPLASTY Right knee pain, unspecified chronicity 06/25/2023 8:00 AM EDT [facility] Start: 06-25-2023 Subsequent hospital visit by physician 06/25/2023 Hospital Encounter IP Unit Justin Mcgowan MD [address] [facility] [address] [place] [address] [facility] Start: 06-19-2023 COVID-19 Vaccine (2022- season) COVID-19 Vaccine ( season) [facility] Start: 06-19-2023 Covid-19 Vaccine (2022- season) Covid-19 Vaccine ( season) [facility] Start: 06-19-2023 Influenza vaccination INFLUENZA (#1) [facility] Start: 06-02-2023 Annual Wellness Visit (AWV) Annual Wellness Visit (AWV) [facility] Start: 05-19-2023 Influenza vaccination Flu vaccine (#1) [facility] Start: 12-03-2022 COVID-19 VACCINE (5 - Moderna series) COVID-19 VACCINE (5 - Moderna series) [facility] Start: 10-19-2022 ADVANCE DIRECTIVE DISCUSSION ADVANCE DIRECTIVE DISCUSSION [facility] Start: 07-04-2022 BP CONTROLLED (<130/80) BP CONTROLLED (<130/80) [facility] Start: 06-19-2022 Influenza vaccination INFLUENZA (Season Ended) [facility] Start: 10-19-2021 ADVANCE DIRECTIVE DISCUSSION ADVANCE DIRECTIVE DISCUSSION [facility] Start: 07-04-2021 COVID-19 VACCINE (3 - Booster for Moderna series) COVID-19 VACCINE (3 - Booster for Moderna series) [facility] Start: 2021 PNEUMOVAX AGE 65 AND OVER WITH 5YR LOOKBACK (#1) PNEUMOVAX AGE 65 AND OVER WITH 5YR LOOKBACK (#1) [facility] Start: 03-29-2021 COVID-19 Vaccine (3 - Booster for Moderna series) COVID-19 Vaccine (3 - Booster for Moderna series) [facility] Start: 2016 Respiratory Syncytial Virus (RSV) or age 60 yrs+ (1 - 1-dose 60+ series) Respiratory Syncytial Virus (RSV) or age 60 yrs+ (1 - 1-dose 60+ series) [facility] Start: 2016 RSV Vaccine (1 - 1-dose 60+ series) RSV Vaccine (1 - 1-dose 60+ series) [facility] Start: 2016 RSV Vaccine (1 - Risk 60-74 years 1-dose series) RSV Vaccine (1 - Risk 60-74 years 1-dose series) [facility] Start: 12-20-2014 Hemoglobin A1c/Hemoglobin.total in Blood HBA1C [facility] Start: 11-16-2013 Pneumococcal 65+ years Vaccine (2 - PCV) Pneumococcal 65+ years Vaccine (2 - PCV) [facility] Start: 11-16-2013 Pneumococcal 65+ years Vaccine (2 of 2 - PCV) Pneumococcal 65+ years Vaccine (2 of 2 - PCV) [facility] Start: 11-16-2013 Pneumococcal Vaccine: 50+ (2 of 2 - PCV) Pneumococcal Vaccine: 50+ (2 of 2 - PCV) [facility] Start: 11-16-2013 Pneumococcal Vaccine: 65+ (2 of 2 - PCV) Pneumococcal Vaccine: 65+ (2 of 2 - PCV) [facility] Start: 11-16-2013 Pneumococcal Vaccine: 65+ Years (2 - PCV) Pneumococcal Vaccine: 65+ Years (2 - PCV) [facility] Start: 11-16-2013 Pneumococcal Vaccine: 65+ Years (2 of 2 - PCV) Pneumococcal Vaccine: 65+ Years (2 of 2 - PCV) [facility] Start: 11-16-2013 PNEUMOCOCCAL: 65+ (2 - PCV) PNEUMOCOCCAL: 65+ (2 - PCV) [facility] Start: 08-09-2013 Hepatitis B surface antibody level LDL CHOLESTEROL [facility] Start: 2011 PROSTATE CANCER SCREENING DISCUSSION PROSTATE CANCER SCREENING DISCUSSION [facility] Start: 2011 Prostate specific antigen measurement Prostate Cancer Screening Discussion [facility] Start: 2006 Shingles vaccine (1 of 2) Shingles vaccine (1 of 2) [facility] Start: 2006 SHINGRIX VACCINE (1 of 2) SHINGRIX VACCINE (1 of 2) [facility] Start: 08-20-2005 Urine microalbumin profile DTaP,Tdap,Td Vaccine (1 - Tdap) [facility] Start: 05-20-2005 DTaP/Tdap/Td vaccine (1 - Tdap) DTaP/Tdap/Td vaccine (1 - Tdap) [facility] Start: 2001 COLOGUARD (FIT-DNA) COLOGUARD (FIT-DNA) [facility] Start: 2001 Colonoscopy COLONOSCOPY [facility] Start: 2001 COLORECTAL CANCER SCREENING COLORECTAL CANCER SCREENING [facility] Start: [address] COLONOGRAPHY [facility] Start: 2001 FECAL OCCULT BLOOD FECAL OCCULT BLOOD [facility] Start: 2001 Screening for malignant neoplasm of colon [facility] Start: 2001 SIGMOIDOSCOPY SIGMOIDOSCOPY [facility] Start: 1986 Zoledronic acid therapy ALPHA-1 ANTITRYPSIN DEFICIENCY SCREENING [facility] Start: 1975 Urine microalbumin profile DTAP,TDAP,TD (1 - Tdap) [facility] Start: 1975 Urine screening for protein Diabetes: Urine Protein Screening [facility] Start: 1974 ANNUAL PCP TEAM CHRONIC DISEASE VISIT ANNUAL PCP TEAM CHRONIC DISEASE VISIT [facility] Start: 1974 BP CONTROLLED (<130/80) BP CONTROLLED (<130/80) [facility] Start: 1974 GFR test (Diabetes, CKD 3-4, OR last GFR 15-59) GFR test (Diabetes, CKD 3-4, OR last GFR 15-59) [facility] Start: 1974 Glaucoma screening Diabetic retinal exam [facility] Start: 1974 Hepatitis C screening Hepatitis C screen [facility] Start: 1974 HIV SCREENING HIV SCREENING [facility] Start: 1974 SPIROMETRY SPIROMETRY [facility] Start: 1974 Urine screening for protein Diabetic Alb to Cr ratio (uACR) test [facility] Start: 1968 Depression Screen Depression Screen [facility] Start: 1966 3 comp foot exam completed DIABETIC FOOT EXAM [facility] Start: 1966 Diabetic foot examination Diabetic foot exam [facility] Start: 1966 Glaucoma screening Dilated Retinal Exam [facility] Start: 1966 Hemoglobin A1c measurement A1C test (Diabetic or Prediabetic) [facility] Start: 1966 Hepatitis B screening URINE ALBUMIN:CREATININE RATIO [facility] Start: 1966 Hepatitis C antibody, confirmatory test DILATED RETINAL EXAM [facility] Start: 1966 Lipid panel Lipids [facility] Start: 1956 ABDOMINAL AORTIC ANEURYSM SCREENING ABDOMINAL AORTIC ANEURYSM SCREENING [facility] Start: 1956 Abdominal aortic aneurysm screening Abdominal Aortic Aneurysm Screening [facility] Start: 1956 Medicare Annual Wellness (AWV) Medicare Annual Wellness (AWV) [facility] Start: 1956 Screening for malignant neoplasm of colon [facility] Comprehensive metabo lic 2000 panel - Serum or Plasma Comprehensive metabolic panel Lab Routine Essential (primary) hypertension (CMS/HCC) Type 2 diabetes mellitus with diabetic neuropathy, without long-term current use of insulin (CMS/HCC) Ordered: 08/02/2024 [facility] Comment on above: Ordered: 08/02/2024 End: 11-30-2023 CT SINUS STEREO WO IVCON CT SINUS STEREO WO IVCON Radiology Routine Other chronic sinusitis 1 Occurrences starting 10/31/2022 until 11/30/2023 [facility] Work Phone: Comment on above: 1 Occurrences starting 10/31/2022 until 11/30/2023 End: 06-10-2023 MRSA DNA Probe, Nasal [facility] Work Phone: Comment on above: Once for 1 Occurrences starting 06/10/20 until 06/10/2023 End: 08-12-2025 XR Knee - bilateral 4 Views XR KNEE GENERAL 4V AP BOTH/PA BOTH/LAT/MERC BILATERAL Radiology Routine Pyogenic arthritis of left knee joint, due to unspecified organism (HCC) 1 Occurrences starting 07/13/2024 until 08/12/2025 [facility] Work Phone: Comment on above: 1 Occurrences starting 07/13/2024 until 08/12/2025 End: 01-29-2026 XR Knee - left 4 Views XR KNEE GENERAL 4V AP BOTH/PA BOTH/LAT/MERC LEFT Radiology Routine Pain 1 Occurrences starting 12/30/2024 until 01/29/2026 [facility] Work Phone: Comment on above: 1 Occurrences starting 12/30/2024 until 01/29/2026 [facility] Immunizations Immunization Date Immunization Notes Care Provider [facility] 09-08-2024 influenza, seasonal, injectable, preservative free Daria Noel NP Work Phone: [facility] 07-23-2023 influenza, injectabl e, quadrivalent, preservative free Shaikh Maine WATERMAN Work Phone: [facility] 07-23-2023 influenza virus vaccine, unspecified formulation Partha Jackson PA-C Work Phone: [facility] 08-02-2022 SARS-COV-2 (COVID-19 ) vaccine, mRNA, spike protein, LNP, bivalent, PF Shaikh Maine WATERMAN Work Phone: [facility] 07-20-2022 Influenza, High-dose Seasonal, Quadrivalent, Preservative Free Shaikh Maine WATERMAN Work Phone: [facility] 08-12-2021 COVID-19 Vaccine Moderna - Documentation Purposes Only Agustin [place] Other [employer] Other 07-28-2021 Influenza, High-dose Seasonal, Quadrivalent, Preservative Free Shaikh Maine WATERMAN Work Phone: [facility] 02-01-2021 COVID-19 Vaccine Moderna - Documentation Purposes Only Agustin [place] Other Patient Communicator [facility] Other 01-04-2021 COVID-19 Vaccine Moderna - Documentation Purposes Only Agustin [place] Other [facility] Other 11-16-2012 pneumococcal polysaccharide vaccine, 23 valent Gifty Ball MD Work Phone: [facility] 07-12-2012 influenza virus vaccine, unspecified formulation Gifty Ball MD Work Phone: [facility] 07-28-2011 influenza virus vaccine, unspecified formulation Gifty Ball MD Work Phone: [facility] 08-06-2005 tetanus toxoid, adsorbed Gifty Ball MD Work Phone: [facility] 05-19-2005 Td, unspecified formulation Guille Tapia DO Work Phone: [facility] 05-19-2005 tetanus and diphther ia toxoids, not adsorbed, for adult use Shaikh Maine WATERMAN Work Phone: [facility] 07-28-2001 pneumococcal polysaccharide vaccine, 23 valent Gifty Ball MD Work Phone: [facility] Payers Date Payer Category Payer Self-pay [id number] 2022 Medicare (Managed Care) [facility] [id number] 2021 Medicare DEVOTED MEDICARE DEVOTED HEALTH [id number] 2021-Present [phone] [address] [place] [id number] O [id number] [id number] 2021 Medicare [id number] 2021 Private Health Insurance DEVOTED HEALTH HI HMO [id number] [id number] 2021 Unknown [id number] 2.16.840.1.314457.19 2018 Unknown 1956 Unknown [id number] 2.16.840.1.942012.3.579. 2.593 1956 Unknown [id number] 2.16.840.1.530670.3.579. 2.593 1956 Unknown [id number] 2.16.840.1.305911.3.579. 2.593 1956 Unknown [id number] 2.16.840.1.592754.3.579. 2.593 1956 Unknown [id number] 2.16.840.1.880086.3.579. 2.593 1956 Unknown [id number] 2.16.840.1.926889.3.579. 2.593 1956 Unknown [id number] 2.16.840.1.411448.3.579. 2.593 1956 Unknown [id number] 2.16.840.1.976994.3.579. 2.593 1956 Unknown [id number] 2.16.840.1.882494.3.579. 2.593 1956 Unknown [id number] 2.16.840.1.845304.3.579. 2.593 1956 Unknown [id number] 2.16.840.1.997932.3.579. 2.356 1956 Unknown [id number] 2.16840.1.559956.3.579. 2.1068 1956 Unknown [id number] 2.16.840.1.308199.3.579. 2.1068 1956 Unknown [id number] 2.16.840.1.697545.3.579. 2.727 1956 Unknown [id number] 2.16.840.1.876102.3.579. 2.1286 1956 Unknown [id number] 2.16.840.1.924360.3.579. 2.196 1956 Unknown [id number] 2.16.840.1.622389.3.579. 2.196 1956 Unknown [id number] 2.16.840.1.762070.3.579. 2.196 1956 Unknown [id number] 2.16.840.1.633461.3.579. 2.196 1956 Unknown [id number] 2.16.840.1.963426.3.579. 2.196 1956 Unknown [id number] 2.16.840.1.944395.3.579. 2.196 1956 Unknown [id number] 2.16.840.1.044172.3.579. 2.196 1956 Unknown [id number] 2.16.840.1.129772.3.579. 2.196 1956 Unknown [id number] 2.16.840.1.208217.3.579. 2.196 1956 Unknown [id number] 2.16.840.1.973468.3.579. 2.196 1956 Unknown [id number] 2.16.840.1.233028.3.579. 2.196 1956 Unknown [id number] 2.16.840.1.020575.3.579. 2.196 1956 Unknown [id number] 2.16.840.1.706406.3.579. 2.196 1956 Unknown [id number] 2.16.840.1.718441.3.579. 2.196 1956 Unknown [id number] 2.16.840.1.723881.3.579. 2.196 1956 Unknown [id number] 2.16.840.1.559742.3.579. 2.196 1956 Unknown [id number] 2.16.840.1.992758.3.579. 2.196 1956 Unknown [id number] 2.16.840.1.026843.3.579. 2.196 1956 Unknown [id number] 2.16.840.1.475920.3.579. 2.196 1956 Unknown [id number] 2.16.840.1.423924.3.579. 2.196 1956 Unknown [id number] 2.16.840.1.234331.3.579. 2.196 1956 Unknown [id number] 2.16.840.1.062254.3.579. 2.173 1956 Unknown [id number] 2.16.840.1.791178.3.579. 2. 1956 Unknown [id number] 2.16.840.1.833296.3.579. 2.173 1956 Unknown [id number] 2.16.840.1.749567.3.579. 2.173 1956 Unknown [id number] 2.16.840.1.299868.3.579. 2.173 1956 Unknown [id number] 2.16.840.1.110766.3.579. 2. 1956 Unknown [id number] 2.16.840.1.307294.3.579. 2.1258 1956 Unknown [id number] 2.16.840.1.076790.3.579. 2.1258 1956 Unknown [id number] 2.16.840.1.721241.3.579. 2.1258 1956 Unknown [id number] 2.16.840.1.378005.3.579. 2.1258 1956 Unknown [id number] 2.16.840.1.914824.3.579. 2.1258 1956 Unknown [id number] 2.16.840.1.242759.3.579. 2.1258 1956 Unknown [id number] 2.16.840.1.856191.3.579. 2.1258 1956 Unknown [id number] 2.16.840.1.462980.3.579. 2.1258 1956 Unknown [id number] 2.16.840.1.870884.3.579. 2.1258 1956 Unknown [id number] 2.16.840.1.936998.3.579. 2.1259 1956 Unknown [id number] 2.16.840.1.222658.3.579. 2.9 1956 Unknown [id number] 2.16.840.1.797930.3.579. 2.9 1956 Unknown [id number] 2.16.840.1.861726.3.579. 2.9 1956 Unknown [id number] 2.16.840.1.978618.3.579. 2.1259 Medicare [id number] 2.16840.1.745491.19 Medicare Medicare [id number] Unknown [id number] 2.16840.1.696759.3.579. 2.531 Unknown [id number] 2.840.1.585333.3.579. 2.531 Social History Date Type Detail Facility Start: 08-19-2022 End: 07-22-2024 Tobacco smoking status NHIS Ex-smoker [facility] Start: 02-15-1981 End: 02-15-1982 History of tobacco use Current smoker [facility] Start: 02-15-1981 End: 02-15-1982 History of tobacco use Cigarette Smoker [facility] Start: 08-16-2021 End: 07-22-2024 Alcohol intake Ex-drinker (finding) [facility] Start: 1955 Sex Assigned At Not on file [facility] Start: 01-21-2021 End: 08-19-2022 Exposure to SARS-CoV-2 (event) Not sure [facility] Start: 02-20-2021 End: 02-02-2024 Sex Assigned At [facility] Start: 08-19-2022 End: 02-02-2024 Cigarettes smoked current (pack per day) - Reported 0.5 [facility] Comment on above: quit 40 years ago; Start: 08-19-2022 End: 11-02-2023 Tobacco use and exposure Smokeless tobacco non-user [facility] Start: 1955 Sex Assigned At Male F [facility] Tobacco smoking status No Smokin g Status Entered [facility] National Score (1-10 0), lower number is lower risk Not on file [facility] Start: 05-19-2011 End: 11-02-2023 Tobacco smoking status NHIS Never smoked tobacco [facility] [employer] [facility] Start: 04-30-2016 End: 06-29-2023 Alcohol intake Current non-drinker of alcohol (finding) [facility] History of tobacco use Passive smoker [facility] Start: 11-02-2023 End: 12-15-2024 Alcohol intake Lifetime non-drinker (finding) [facility] Start: 09-16-2023 Alcohol Comment caffeine: 2-3 cups per day soda [facility] Do you belong to any clubs or organizations such as methodist groups, unions, fraternal or athletic groups, or school groups? Yes [facility] Are you now , , , , never or living with a partner? [facility] How often to you hav e a drink containing alcohol? Never [facility] How hard is it for y ou to pay for the very basics like food, housing, medical care, and heating Hard [facility] Do you feel stress - tense, restless, nervous, or anxious, or unable to sleep at night because your mind is troubled all the time - these days [OSQ] Very much [facility] (I/We) worried wheth er (my/our) food would run out before (I/we) got money to buy more. Sometimes true [facility] In the past 12 month s, was there a time when you were not able to pay the mortgage or rent on time? No [facility] Medical Equipment Procedure Code Equipment Code Equipment Origin al Text Equipment Identifier Dates Graft Bn Canc 15 ml Allgrft - [id number] Start: 06-05-2014 Simplex P Bone Cement Radiopaque Full Dose Individual Pack - [id number] Start: 06-04-2012 Sys Bncmnt Gun Brkwy Noz Crtdg - [id number] Start: 06-04-2012 Cement Bone Simplex P W/ Tobramycin 1gm - [id number] Start: 09-06-2012 Graft Bn Dbm 5ml Ptty Strl - [id number] Start: 09-29-2014 Tqp-Fx-W-Kind Implant - [id number] Start: 09-06-2012 Comment on above: Description: 17mm x 100mm stem ext (hernandez [id number]) Nrj-Hn-H-Kind Implant - [id number] Start: 09-06-2012 Comment on above: Description: 6 Tibia comp plate (hernandez [id number]) Nue-Kc-G-Kind Implant - [id number] Start: 09-06-2012 Comment on above: Description: left F Femur comp. (hernandez [id number]) Ysg-Ui-O-Kind Implant - [id number] Start: 09-06-2012 Comment on above: Description: 12mm ti bial insert (hernandez [id number]) articulate srfc 3.5 Mm 20mm Eugenio ex Screw [id number] Start: 09-29-2014 3.5mm 22mm Augusto x Screw [id number] Start: 09-29-2014 2.7mm 24mm Locki ng Screw [id number] Start: 09-29-2014 Prosthesis Thida 3mm Titanium 3-7mm [place] Total Center Shoe Ear - [id number] Start: 11-03-2019 Spcr Fem 75mm Kn Mold - [id number] Start: 06-04-2012 Spcr Demarcus Stg1 Si l 75mm Tib Kn - [id number] Start: 06-04-2012 Ext Stem 30mm 75 mm 15mm Str - [id number] Start: 09-06-2012 Comment on above: Description: extensi on stem 30mm-78-15 (hernandez [id number]) Shld Hinge Sgmnt l Svc Kit Sz F - [id number] Start: 06-05-2014 Srfc Artc 17mm F Tib Kn Seg - [id number] Start: 06-05-2014 Restric Demarcus Unv Rev Insrt - [id number] Start: 09-06-2012 Plate 112mm Ss S tr Fus Lcp Bn - [id number] Start: 09-29-2014 Screw Bn 2.7mm 16mm Lcp Ss - [id number] Start: 09-29-2014 Screw Bn 2.7mm 16mm Lcp Ss Sm - [id number] Start: 09-29-2014 Screw Bn 3.5mm 20mm Lcp Ss - [id number] Start: 09-29-2014 Screw Bn 3.5mm 24mm Lcp Ss - [id number] Start: 09-29-2014 Lancets Ultra Fi ne misc [id number] Impl Knee Fem Ps n Ps Cmt Std Sz12 Rt - [id number] Start: 06-25-2023 Cement Bne 40gm Hi Visc Radpq For Rev Surg - [id number] Start: 06-25-2023 Cement Bne 40gm Hi Visc Radpq For Rev Surg - [id number] Start: 06-25-2023 Cement Bne 40gm Hi Visc Radpq For Rev Surg - [id number] Start: 06-25-2023 Psn Tib Stm 5 De g Sz J R - [id number] Start: 06-25-2023 Component Pat [id number] Thk9.5mm Std Vivacit-E Demarcus Inset For - [id number] Start: 06-25-2023 Psn Asf Ps 11mm Ve R 10-12 J - [id number] Start: 06-25-2023 Use daily [id number] Start: 05-12-2024 End: 05-12-2025 1 each Daily [id number] Start: 05-12-2024 Functional Status Date Assessment Result Facility 11-08-2023 Are you deaf, or do you have serious difficulty hearing No 11/08/2023 2:22 PM Yaima Johnson RN No [facility] 11-08-2023 Are you blind, or do you have serious difficulty seeing, even when wearing glasses No 11/08/2023 2:22 PM Yaima Johnson RN No [facility] 11-08-2023 Do you have serious difficulty walking or climbing stairs No 11/08/2023 2:22 PM Yaima Johnson RN No [facility] 11-08-2023 Do you have difficul ty dressing or bathing No 11/08/2023 2:22 PM Yaima Johnson RN No [facility] 11-08-2023 Because of a physica l, mental, or emotional condition, do you have difficulty doing errands alone such as visiting a physician's office or shopping No 11/08/2023 2:22 PM Yaima Johnson RN No [facility] Mental Status Date Assessment Result Facility 11-08-2023 Because of a physica l, mental, or emotional condition, do you have serious difficulty concentrating, remembering, or making decisions No 11/08/2023 2:22 PM Yaima Johnson RN No [facility] Clinical Notes 07-12-2012 to 12-22-2024 Daria Noel NP - 12/08/2024 2:33 PM Malia Noel NP - 12/08/2024 2:12 PM Malia Noel, NUNU - 12/08/2024 2:09 PM Malia Noel NP - 12/08/2024 2:09 PM JENI Note Date & Type Note Facility 12-22-2024 Note Attestation signed by Derrick Barnett MD at 12/23/2024 7:05 AM GC: I saw this patient. I personally performed or was personally present for the critical/hinojosa portions that determines the level of service. I was directly involved in the management and treatment plan of the patient. 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 Has noted a growing mass about the medial aspect of knee States that was present albeit small when seen by the joint service and instructed to use a sleeve Due to worsening of pain/ symptoms was seen by Dr Payne but referred her now due to concern for mass / other. Has a repeat follow up with the joint service at [facility] in January. Patient gives an extensive/complex history of left knee issues dating back greater than 10 years, following his previous total knee replacement surgery developed infection and required multiple procedures including periprosthetic joint revision and most of his surgeries were done at [facility]. He has had effusions since his last surgery which have been treated with Umair wrap and compression sleeve. He has underwent several aspirations which have been negative for infection. Unclear if the medial mass ever biopsied or aspirated. PE There were no vitals taken for this visit. There is no height or weight on file to calculate BMI. Respiratory: Unlabored breathing with normal rate, no cough Cardiovascular: Warm well perfused extremities Psych: Appropriate mood behavior General: No acute distress alert and oriented sitting comfortably in bed Left lower extremity: Abrasion anterior aspect of left knee approximately 3 x 3 cm, clean with granulation tissue, area of injury from recent fall Large mass to the medial aspect of the left knee approximately 15 cm in length, and some 6-8 wide ROM-45 degree extension lag flexion to 110 3/5 knee extension and 5/5 knee flexion EHL, FHL, ankle plantar flexion, ankle dorsiflexion 5/5 Sensation-saphenous, sural, superficial peroneal, deep peroneal, tibial nerve distributions sensation intact to light touch Dorsalis pedis and posterior tibial pulses palpable Compartments are soft and compressible Patient is able to ambulate with a cane however he uses a high step gait on his left and is bent over forward at the waist Imaging personally reviewed: Right knee x-rays obtained today in clinic: My interpretation is no acute fractures or dislocations; there is right total knee prosthesis with all poly tibia is in maintained alignment without appreciable new change from prior x-ray although antecedendt imaging is very limited to assess for other changes. Left knee x-rays obtained today in clinic: My interpretation is loosening especially of tibial and possible femoral components with loose metal body the medial superior pouch of the knee, perhaps previously surgically placed. . There is a large soft tissue shadow medially. There is patellar Baha. Overall there seems to be more bone loss than on his prior x-ray. Left knee MRI without contrast, 09/12/2024: 12.3 X6.2X8 0.3 cm multi segmented parts with fluid part and solid process along of the medial joint line. Labs: 06/13/2024 ESR and CRP within normal limits. Right knee aspiration in [facility] 06/13/2024 cell count 554. Left knee aspiration 06/13/2024 cell count 287 Assessment/Plan -69 y.o. 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 PLAN: Stat MRI left knee with contrast to evaluate for neoplasm Stat ultrasound or CT-guided core needle biopsy of the solid aspect of his left medial knee mass. We will get blood work including CBC, BMP, repeat ESR, CRP, TSH, PTH, SPEP We will get a chest x-ray Patient will follow-up after these tests \ Orthopedic Surgery Subjective Chief complaint: No chief complaint on file. 12/22/24 Joie Lu is a 69 y.o. year old male presenting for evaluation of left knee. 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 Subsequently underwent revision TKA by Dr Cassy Escamilla, using a hinged knee component in 2014 at [facility]. Patient states that his providers have just indicated conservative management for an increasing solid soft tissue mass that he localizes to the medial aspect of his left knee. Patient states that he has noticed that this mass is enlarging very slowly over time. He does report it is p (more content not included)... [facility] 12-08-2024 History of Presen t illness Narrative Associated Problem(s): Knee pain Persistent limited ROM,. Pain and falls persist. Pt following with 3 different orthopaedic specialists at this time. Is due to see Dr. Escamilla at [facility] on January 24 to determine if surgery is a viable option. HH and PT options evaluated. Pt could not afford PT. Pt currently taking Oxycodone Q6hrs PRN pain. OARRS reviewed. Pt never requests early refills and is always compliant with regimen. Continue current regimen until indicated otherwise by Ortho. Associated Problem(s): Type 2 diabetes mellitus with diabetic neuropathy, without long-term current use of insulin (CMS/HCC) Currently taking Glimepiride 4mg Metformin 1,000mg BID Most recent labs: hemoglobin A1C 6.2% significant IMPROVEMENT! Average FSBS range from BGs range between 150 and 200 No episode of hypoglycemia No medication adverse effects reported by the patient. Patient educated on lifestyle modifications, dietary restrictions, signs and symptoms of hypoglycemia/hyperglycemia and importance of eating regular consistent meals. Stressed upon importance of checking blood glucose at home and bring blood glucose log to appointments. All questions, concerns answered and addressed. Encouraged to call office if persistent hypoglycemia/hyperglycemia on home glucose monitoring noted. Associated Problem(s): Hyperlipidemia (CMS/HCC) Currently taking Rosuvastatin 5mg Denies any myalgias. Continue current regimen. Associated Problem(s): Essential hypertension (CMS/HCC) Currently taking Amlodipine 5mg Prazosin 1mg Lisinopril 20mg Reports BP averages at home are consistently less than 130/90. BP is slightly elevated today in office-pt reports he is in pain today. Will continue to monitor closely. Denies orthostatic changes, dizziness, cough, shortness of breath, swelling in extremities. Continue current regimen. Given BP log, advised pt to record BP and bring log back with them to next visit. Images from the original note were not included. Subjective Patient ID: Joie Lu Jr. is a 69 y.o. male who presents for Follow-up. HPI Specialists: [facility]- [facility] HTN: Currently taking Amlodipine 5mg Prazosin 1mg Lisinopril 20mg Reports BP averages at home are consistently less than 130/90. BP is slightly elevated today in office-pt reports he is in pain today. Will continue to monitor closely. Denies orthostatic changes, dizziness, cough, shortness of breath, swelling in extremities. Continue current regimen. Given BP log, advised pt to record BP and bring log back with them to next visit. HLD: Currently taking Rosuvastatin 5mg Denies any myalgias. Continue current regimen. Component Ref Range & Units 5 mo ago (07/06/24) 5 mo ago (07/06/24) 5 mo ago (07/06/24) 5 mo ago (07/06/24) 7 mo ago (04/29/24) 7 mo ago (04/29/24) TRIGLYCERIDES <=150 mg/dL 57 129 Low R 23.8 R 8.0 R 131 Low R 6.8 Low R CHOLESTEROL <=200 mg/dL 103 5.4 High R 0.3 R 28.89 R 4.5 R 0.7 High R HDL CHOLESTEROL 40 - 60 mg/dL 55 11.2 R 4.4 R 0.28 R 18.3 R 11.6 High R Comment: > or =60 mg/dl - LOW CARDIOVASCULAR RISK <40 mg/dl - HIGH CARDIOVASCULAR RISK LDL CHOLESTEROL CALCULATED mg/dL 36.6 150 High R 1.7 R 301 High R 0.9 Low R Comment: <100 mg/dl OPTIMAL 100-129 mg/dl NEAR OR ABOVE OPTIMAL 130-159 mg/dl BORDERLINE HIGH 160-189 mg/dl HIGH >190 mg/dl VERY HIGH VLDL CHOLESTEROL mg/dL 11.4 0.5 R 0.5 R 0.4 R 1.1 High R CHOL HDL RATIO 1.9 27 R 0.02 R 34 R 0.10 High R Comment: 3.3 - 4.4 LOW RISK 4.4 - 7.1 AVERAGE RISK 7.1 - 11.0 MODERATE RISK >11.0 HIGH RISK ALANINE AMINOTRANSFERASE 67 High R 94 High R ALKALINE PHOSPHATASE 145 High R 166 High R TOTAL PROTEIN 7.6 R 7.3 R ALBUMIN LEVEL 4.1 R 3.8 R ALBUMIN GLOBULIN RATIO 1.2 1.1 Resulting Agency [facility] DMII: Currently taking Rybelsus 7mg, Glimepiride 4mg Metformin 1,000mg BID Most recent labs: hemoglobin A1C 6.2% Average FSBS range from BGs range between 150 and 200 No episode of hypoglycemia No medication adverse effects reported by the patient. Patient educated on lifestyle modifications, dietary restrictions, signs and symptoms of hypoglycemia/hyperglycemia and importance of eating regular consistent meals. Stressed upon importance of checking blood glucose at home and bring blood glucose log to appointments. All questions, concerns answered and addressed. Encouraged to call office if persistent hypoglycemia/hyperglycemia on home glucose monitoring noted. Education: Check blood sugars daily, notify if <70 or >200. Take medications (pills or insulin) as directed. Monitor for s/s of hypoglycemia (sweaty, dizziness, nausea, vomiting, or shakiness). Watch for increase in thirst, urination, or appetite. Inspect feet frequently monitoring for open wounds , and also recommend yearly eye exam. Pt should attempt to remain as physically active as chronic conditions allow, as well as trying to follow a diet low in carbohydrates, and simple sugars. Review of Systems Constitutional: Negative for activity change, appetite change, chills, diaphoresis, fatigue, fever and unexpected weight change. HENT: Negative for congestion, ear pain, rhinorrhea, sinus pressure, sinus pain, sneezing, sore throat, trouble swallowing and voice change. Eyes: Negative for visual disturbance. Respiratory: Negative for cough, chest tightness, shortness of breath and wheezing. Cardiovascular: Negative for chest pain, palpitations and leg swelling. Gastrointestinal: Negative for abdominal distention, abdominal pain, blood in stool, constipation, diarrhea and vomiting. Genitourinary: Negative for decreased urine volume, dysuria, flank pain, frequency, hematuria and urgency. Musculoskeletal: Negative for arthralgias, gait problem, joint swelling and myalgias. Skin: Negative for rash. Neurological: Negative for dizziness, tremors, syncope, weakness, light-headedness and headaches. Psychiatric/Behavioral: Negative for decreased concentration and suicidal ideas. The patient is not nervous/anxious. Hematological: Does not bruise/bleed easily. Endocrine: Negative for cold intolerance, heat intolerance, polydipsia, polyphagia and polyuria. Objective Physical Exam Vitals reviewed. Constitutional: Appearance: Normal appearance. HENT: Right Ear: Tympanic membrane normal. Left Ear: Tympanic membrane normal. Nose: Nose normal. Mouth/Throat: Mouth: Mucous membranes are moist. Pharynx: Oropharynx is clear. Eyes: Pupils: Pupils are equal, round, and reactive to light. Cardiovascular: Rate and Rhythm: Normal rate and regular rhythm. Pulses: Normal pulses. Heart sounds: Normal heart sounds. Pulmonary: Effort: Pulmonary effort is normal. Breath sounds: Normal breath sounds. Abdominal: General: Abdomen is flat. Bowel sounds are normal. Palpations: Abdomen is soft. Skin: Capillary Refill: Capillary refill takes less than 2 seconds. Neurological: Mental Status: He is alert and oriented to person, place, and time. Assessment/Plan Problem List Items Addressed This Visit Type 2 diabetes mellitus with diabetic neuropathy, without long-term current use of insulin ([facility]) Currently taking Glimepiride 4mg Metformin 1,000mg BID Most recent labs: hemoglobin A1C 6.2% significant IMPROVEMENT! Average FSBS range from BGs range between 150 and 200 No episode of hypoglycemia No medication adverse effects reported by the patient. Patient educated on lifestyle modifications, dietary restrictions, signs and symptoms of hypoglycemia/hyperglycemia and importance of eating regular consistent meals. Stressed upon importance of checking blood glucose at home and bring blood glucose log to appointments. All questions, concerns answered and addressed. Encouraged to call office if persistent hypoglycemia/hyperglycemia on home glucose monitoring noted. Relevant Medications gabapentin (Neurontin) 600 MG tablet metFORMIN (Glucophage) 1000 MG tablet Hyperlipidemia ([facility]) Currently taking Rosuvastatin 5mg Denies any myalgias. Continue current regimen. Relevant Medications rosuvastatin (Crestor) 5 MG tablet Essential hypertension ([facility]) Currently taking Amlodipine 5mg Prazosin 1mg Lisinopril 20mg Reports BP averages at home are consistently less than 130/90. BP is slightly elevated today in office-pt reports he is in pain today. Will continue to monitor closely. Denies orthostatic changes, dizziness, cough, shortness of breath, swelling in extremities. Continue current regimen. Given BP log, advised pt to record BP and bring log back with them to next visit. Relevant Medications lisinopril 20 MG tablet Lumbar spondylosis Relevant Medications oxyCODONE-acetaminophen (Percocet) 5-325 MG tablet (Start on 12/16/2024) Knee pain Persistent limited ROM,. Pain and falls persist. Pt following with 3 different orthopaedic specialists at this time. Is due to see Dr. Escamilla at [facility] on January 24 to determine if surgery is a viable option. HH and PT options evaluated. Pt could not afford PT. Pt currently taking Oxycodone Q6hrs PRN pain. OARRS reviewed. Pt never requests early refills and is always compliant with regimen. Continue current regimen until indicated otherwise by Ortho. Relevant Medications oxyCODONE-acetaminophen (Percocet) 5-325 MG tablet (Start on 12/16/2024) Anxiety disorder, unspecified Relevant Medications busPIRone (Buspar) 30 MG tablet hydrOXYzine HCl (Atarax) 50 MG tablet Essential (primary) hypertension (CMS/HCC) - Primary Relevant Medications amLODIPine (Norvasc) 5 MG tablet Type 2 diabetes mellitus with diabetic neuropathy, unspecified (CMS/HCC) Relevant Medications glimepiride (Amaryl) 4 MG tablet Shoulder pain, right Relevant Medications oxyCODONE-acetaminophen (Percocet) 5-325 MG tablet (Start on 12/16/2024) Medication refill Relevant Medications amLODIPine (Norvasc) 5 MG tablet busPIRone (Buspar) 30 MG tablet gabapentin (Neurontin) 600 MG tablet glimepiride (Amaryl) 4 MG tablet hydrOXYzine HCl (Atarax) 50 MG tablet lisinopril 20 MG tablet metFORMIN (Glucophage) 1000 MG tablet oxyCODONE-acetaminophen (Percocet) 5-325 MG tablet (Start on 12/16/2024) rosuvastatin (Crestor) 5 MG tablet documented in this encounter [facility] 11-16-2024 History of Presen t illness Narrative Associated Problem(s): Chronic pain of right knee Is hoping to have percocet dosing increased today related to ongoing chronic knee and shoulder pain- due to frequent falls in the past I am hesitant to increase dosing or strength. Pt and I have discussed this in thorough detail in the past. Pt is seeing plastics and ortho in November as well as [facility] ortho in January for his knees. Sees Ortho Dr. Cruz For his right shoulder. Images from the original note were not included. Subjective Patient ID: Joie Lu Jr. is a 69 y.o. male who presents for Pain. HPI Is hoping to have percocet dosing increased today related to ongoing chronic knee and shoulder pain- due to frequent falls in the past I am hesitant to increase dosing or strength. Pt and I have discussed this in thorough detail in the past. Pt is seeing plastics and ortho in November as well as [facility] ortho in January for his knees. Sees Ortho Dr. Cruz For his right shoulder. Review of Systems Constitutional: Negative for activity change, appetite change, chills, diaphoresis, fatigue, fever and unexpected weight change. HENT: Negative for congestion, ear pain, rhinorrhea, sinus pressure, sinus pain, sneezing, sore throat, trouble swallowing and voice change. Eyes: Negative for visual disturbance. Respiratory: Negative for cough, chest tightness, shortness of breath and wheezing. Cardiovascular: Negative for chest pain, palpitations and leg swelling. Gastrointestinal: Negative for abdominal distention, abdominal pain, blood in stool, constipation, diarrhea and vomiting. Genitourinary: Negative for decreased urine volume, dysuria, flank pain, frequency, hematuria and urgency. Musculoskeletal: Positive for arthralgias, gait problem, joint swelling and myalgias. Skin: Negative for rash. Neurological: Negative for dizziness, tremors, syncope, weakness, light-headedness and headaches. Psychiatric/Behavioral: Negative for decreased concentration and suicidal ideas. The patient is not nervous/anxious. Hematological: Does not bruise/bleed easily. Endocrine: Negative for cold intolerance, heat intolerance, polydipsia, polyphagia and polyuria. Objective Physical Exam Vitals reviewed. Constitutional: Appearance: Normal appearance. HENT: Right Ear: Tympanic membrane normal. Left Ear: Tympanic membrane normal. Nose: Nose normal. Mouth/Throat: Mouth: Mucous membranes are moist. Pharynx: Oropharynx is clear. Eyes: Pupils: Pupils are equal, round, and reactive to light. Cardiovascular: Rate and Rhythm: Normal rate and regular rhythm. Pulses: Normal pulses. Heart sounds: Normal heart sounds. Pulmonary: Effort: Pulmonary effort is normal. Breath sounds: Normal breath sounds. Abdominal: General: Abdomen is flat. Bowel sounds are normal. Palpations: Abdomen is soft. Musculoskeletal: General: Swelling and tenderness present. Right knee: Decreased range of motion. Tenderness present. Left knee: Swelling present. Decreased range of motion. Skin: Capillary Refill: Capillary refill takes less than 2 seconds. Neurological: Mental Status: He is alert and oriented to person, place, and time. Assessment/Plan Problem List Items Addressed This Visit Chronic pain of right knee - Primary Is hoping to have percocet dosing increased today related to ongoing chronic knee and shoulder pain- due to frequent falls in the past I am hesitant to increase dosing or strength. Pt and I have discussed this in thorough detail in the past. Pt is seeing plastics and ortho in November as well as [facility] ortho in January for his knees. Sees Ortho Dr. Cruz For his right shoulder. Lumbar spondylosis Relevant Medications oxyCODONE-acetaminophen (Percocet) 5-325 MG tablet (Start on 11/17/2024) Knee pain Relevant Medications oxyCODONE-acetaminophen (Percocet) 5-325 MG tablet (Start on 11/17/2024) Shoulder pain, right Relevant Medications oxyCODONE-acetaminophen (Percocet) 5-325 MG tablet (Start on 11/17/2024) documented in this encounter [facility] 11-16-2024 Instructions Daria Noel NP - 11/16/2024 10:00 AM EST Please follow up with Ortho regarding your knees and shoulders. Discuss pain medication regimen with them. documented in this encounter [facility] 11-11-2024 Telephone encounter Note I spoke with this patient today after reviewing his recent imaging. His left knee hinged component is failing. 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 He is less than 1 year out from a right knee explant for PJI at an outside facility. He reports he is no longer on antibiotics. We discussed him coming in to see Dr. Oquendo with repeat imaging in early January. [facility] 11-11-2024 Miscellaneous Notes I spoke with this patient today after reviewing his recent imaging. His left knee hinged component is failing. 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 He is less than 1 year out from a right knee explant for PJI at an outside facility. He reports he is no longer on antibiotics. We discussed him coming in to see Dr. Oquendo with repeat imaging in early January. documented in this encounter [facility] 11-10-2024 Telephone encounter Note Medication sent. Patient to schedule for when he can come in. Partha Jackson PA-C November 10, 2024 5:30 PM [facility] 11-10-2024 Miscellaneous Notes Medication sent. Patient to schedule for when he can come in. Partha Jackson PA-C November 10, 2024 5:30 PM Person Calling: Juan José Reason for Call: pt wants to reschedule visit with Partha to 12/12 or 12/13 but wants to know if she can refill his meds until then Pt Phone #: [phone] Pharmacy Name and # : Pt last seen: 06/28/2024 Isiah Warner Tried calling patient, no answer, LM relaying that Partha is in [place] that day and to call back with what he would like to to. Patient has appointment on 11/[address] Rasmussen at 3pm and is wondering if he can see Partha that day instead of on 11/15? Pt coming from far away and states he really doesn't have gas money for 2 trips. Asking if Partha can see him sometime on 11/24. I know I have to ask about the office use only slots documented in this encounter [facility] 11-10-2024 Telephone encounter Note Person Calling: Juan José Reason for Call: pt wants to reschedule visit with Partha to 12/12 or 12/13 but wants to know if she can refill his meds until then Pt Phone #: [phone] Pharmacy Name and # : Pt last seen: 06/28/2024 Isiah Warner [facility] 11-10-2024 Telephone encounter Note Tried calling patient, no answer, LM relaying that Partha is in [place] that day and to call back with what he would like to to. [facility] 11-10-2024 Telephone encounter Note Patient has appointment on 11/[address] Rasmussen at 3pm and is wondering if he can see Partha that day instead of on 11/15? [facility] 11-10-2024 Telephone encounter Note Pt coming from far away and states he really doesn't have gas money for 2 trips. Asking if Partha can see him sometime on 11/24. I know I have to ask about the office use only slots [facility] 10-04-2024 Telephone encounter Note Patient is aware his medication can't be filled until 10/17 but is asking if you can send it and then they can hold it since you will be on vacation? STEPHANIE [facility] 10-04-2024 Miscellaneous Notes Patient is aware his medication can't be filled until 10/17 but is asking if you can send it and then they can hold it since you will be on vacation? STEPHANIE documented in this encounter [facility] 09-12-2024 Note Orthopaedic Surgery Subjective New Patient of the Right Knee and New Patient of the Left Knee (Second opinion Large Mass on the inside of knee ) 09/12/24 Juan José Lu is a 69 y.o. male presenting for evaluation of his left knee. 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 Subsequently underwent revision TKA by Dr Cassy Escamilla, using a hinged knee component in 2013 at [facility]. Patient states that his providers have just indicated conservative management for an increasing solid soft tissue mass that he localizes to the medial aspect of his left knee. Patient states that he has noticed that this mass is enlarging very slowly over time. Patient denies having any previous advanced imaging of his left knee including MRI. He has a had any constitutional symptoms such as fever/chills, nausea/vomiting or other constitutional symptoms at this time. Patient continues to have pain on ambulation and very limited range of motion of his left knee joint at this point in time. He is here for further evaluation of his growing swelling over the medial aspect of his left knee joint which has secondary induration at this point in time. Patient is s/p revision Left Total Knee Replacement completed on 06/05/2014. Patient gives an extensive/complex history of left knee issues dating back greater than 10 years, following his previous total knee replacement surgery developed infection and required multiple procedures including periprosthetic joint revision and most of his surgeries were done at [facility]. His most recent surgery at [facility] was single-stage revision for failed internal implant. He has retained metallic component as well. He most recently was worked up in the emergency department at [facility] by way of left knee aspiration, advanced imaging by way of CT scan. This workup apparently revealed no evidence of intra-articular left knee infection or failure of his current left knee construct. Patient says he has followed up with his previous surgeon and was told to use an Umair wrap or knee sleeve and continue with his ambulation as tolerated and falls precautions. Patient has been also evaluated for a significant fluid collection over the medial aspect of his left knee that was identified on CT scan in October 2023 which was treated with compression and icing as per his previous surgeons follow-up notes and recommendations. Patient is also status post right knee antibotic spacer done on Right- 2022 @ [facility] - and [facility] Left Knee in 2018 History History reviewed. No pertinent surgical history. History reviewed. No pertinent past medical history. Acute Pain of Left Knee, Septic arthritis of knee, left ([facility]) Type 2 Diabetes Mellitus Without Complication, Without Long-Term Current Use of Insulin ([facility]) Hypothyroidism Hyperlipidemia Htn (Hypertension) Gout Wrist Arthritis Pneumonia Elevated Lfts Pulmonary Nodule H/O Clostridium Difficile Infection Dvt Prophylaxis Metatarsalgia Infection and Inflammatory Reaction Due to Unspecified Device, Implant, and Graft Left Wrist Pain Arthritis of Left Wrist Carpal Tunnel Syndrome Diabetic Neuropathy, Painful ([facility]) Arthralgia of Right Lower Leg History of Transmetatarsal Amputation of Right Foot (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 No acute distress, comfortable Left Knee: Inspection-patient has a large palpable soft tissue mass at the medial aspect of his left knee which is not mobile. The margin is indurated with fixation to the underlying vastus medialis and medial muscles measuring approximately 25 cm x 8 cmx 6 cm in dimensions without any evidence of the overlying skin. No open wounds, trophic skin changes or tenderness to palpation about the mass. Patient has previous revision TKA scar which is well-healed. There is a bandage on the anterior aspect for the patient has a minor abrasion. No noticeable effusion. Knee ROM: Extension- -30??? Flexion- 90??? Strength: Knee Flexion 4/5 Knee Extension 4/5 Ankle Dorsiflexion 5/5 Ankle Plantarflexion 5/5 Sensation: intact over superficial peroneal, deep peroneal and tibial nerve distributions Stability: Stable to varus and valgus stress Stable to ante (more content not included)... [facility] 09-08-2024 History of Presen t illness Narrative Associated Problem(s): COPD with exacerbation (CMS/HCC) Currently taking Pro Air PRN Spiriva Daily; Feels symptoms are well controlled currently. Follows Pulmonology @ [facility]. Associated Problem(s): Essential (primary) hypertension (CMS/HCC) Currently taking Amlodipine 5mg Prazosin 1mg Lisinopril 20mg Does not check BP at home. Denies orthostatic changes, dizziness, cough, shortness of breath, swelling in extremities. Continue current regimen. Given BP log, advised pt to record BP and bring log back with them to next visit. Associated Problem(s): Hyperlipidemia (CMS/HCC) Currently taking Rosuvastatin 5mg Denies any myalgias. Continue current regimen. Associated Problem(s): Type 2 diabetes mellitus with diabetic neuropathy, without long-term current use of insulin ([facility]) Currently taking Rybelsus 7mg, Glimepiride 4mg Metformin 850mg BID, Most recent labs: hemoglobin A1C 8.1 Increase from 7.1 Next check due next month. Will increase metformin today from 850mg to 1,000mg BID Average FSBS range from BGs range between 150 and 200 No episode of hypoglycemia No medication adverse effects reported by the patient. Patient educated on lifestyle modifications, dietary restrictions, signs and symptoms of hypoglycemia/hyperglycemia and importance of eating regular consistent meals. Stressed upon importance of checking blood glucose at home and bring blood glucose log to appointments. All questions, concerns answered and addressed. Encouraged to call office if persistent hypoglycemia/hyperglycemia on home glucose monitoring noted. Images from the original note were not included. Subjective Patient ID: Joie Lu Jr. is a 69 y.o. male who presents for No chief complaint on file.. HPI Was referred to [facility] for second opinion of knee and lumbar pain. Per visit note was not a candidate for surgery and does not need surgery at this time. Is unhappy with outcome and will be going to see [facility] Orthopaedics in September 12 @ 11:00am for a third opinion Reports has been having multiple falls. Ordered PT, pt attended a few visits but opted to stop. States he cannot afford the co-pays and will be going to the gym with a friend who can offer supervision instead. HTN: Currently taking Amlodipine 5mg Prazosin 1mg Lisinopril 20mg Does not check BP at home. Denies orthostatic changes, dizziness, cough, shortness of breath, swelling in extremities. Continue current regimen. Given BP log, advised pt to record BP and bring log back with them to next visit. HLD: Currently taking Rosuvastatin 5mg Denies any myalgias. Continue current regimen. Component Ref Range & Units 3 wk ago (07/06/24) 3 wk ago (07/06/24) 3 wk ago (07/06/24) 3 wk ago (07/06/24) 3 mo ago (04/29/24) 3 mo ago (04/29/24) TRIGLYCERIDES <=150 mg/dL 57 129 Low R 23.8 R 8.0 R 131 Low R 6.8 Low R CHOLESTEROL <=200 mg/dL 103 5.4 High R 0.3 R 28.89 R 4.5 R 0.7 High R HDL CHOLESTEROL 40 - 60 mg/dL 55 11.2 R 4.4 R 0.28 R 18.3 R 11.6 High R Comment: > or =60 mg/dl - LOW CARDIOVASCULAR RISK <40 mg/dl - HIGH CARDIOVASCULAR RISK LDL CHOLESTEROL CALCULATED mg/dL 36.6 150 High R 1.7 R 301 High R 0.9 Low R Comment: <100 mg/dl OPTIMAL 100-129 mg/dl NEAR OR ABOVE OPTIMAL 130-159 mg/dl BORDERLINE HIGH 160-189 mg/dl HIGH >190 mg/dl VERY HIGH VLDL CHOLESTEROL mg/dL 11.4 0.5 R 0.5 R 0.4 R 1.1 High R CHOL HDL RATIO 1.9 27 R 0.02 R 34 R 0.10 High R Comment: 3.3 - 4.4 LOW RISK 4.4 - 7.1 AVERAGE RISK 7.1 - 11.0 MODERATE RISK >11.0 HIGH RISK ALANINE AMINOTRANSFERASE 67 High R 94 High R ALKALINE PHOSPHATASE 145 High R 166 High R TOTAL PROTEIN 7.6 R 7.3 R ALBUMIN LEVEL 4.1 R 3.8 R ALBUMIN GLOBULIN RATIO 1.2 1.1 Resulting Agency [facility] DMII: Currently taking Rybelsus 7mg, Glimepiride 4mg Metformin 850mg BID, Most recent labs: hemoglobin A1C 8.1 Increase from 7.1 Next check due next month. Will increase metformin today from 850mg to 1,000mg BID Average FSBS range from BGs range between 150 and 200 No episode of hypoglycemia No medication adverse effects reported by the patient. Patient educated on lifestyle modifications, dietary restrictions, signs and symptoms of hypoglycemia/hyperglycemia and importance of eating regular consistent meals. Stressed upon importance of checking blood glucose at home and bring blood glucose log to appointments. All questions, concerns answered and addressed. Encouraged to call office if persistent hypoglycemia/hyperglycemia on home glucose monitoring noted. Education: Check blood sugars daily, notify if <70 or >200. Take medications (pills or insulin) as directed. Monitor for s/s of hypoglycemia (sweaty, dizziness, nausea, vomiting, or shakiness). Watch for increase in thirst, urination, or appetite. Inspect feet frequently monitoring for open wounds , and also recommend yearly eye exam. Pt should attempt to remain as physically active as chronic conditions allow, as well as trying to follow a diet low in carbohydrates, and simple sugars. Review of Systems Constitutional: Negative for activity change, appetite change, chills, diaphoresis, fatigue, fever and unexpected weight change. HENT: Negative for congestion, ear pain, rhinorrhea, sinus pressure, sinus pain, sneezing, sore throat, trouble swallowing and voice change. Eyes: Negative for visual disturbance. Respiratory: Negative for cough, chest tightness, shortness of breath and wheezing. Cardiovascular: Negative for chest pain, palpitations and leg swelling. Gastrointestinal: Negative for abdominal distention, abdominal pain, blood in stool, constipation, diarrhea and vomiting. Genitourinary: Negative for decreased urine volume, dysuria, flank pain, frequency, hematuria and urgency. Musculoskeletal: Positive for arthralgias, gait problem and myalgias. Negative for joint swelling. Skin: Negative for rash. Neurological: Negative for dizziness, tremors, syncope, weakness, light-headedness and headaches. Falls Psychiatric/Behavioral: Negative for decreased concentration and suicidal ideas. The patient is not nervous/anxious. Hematological: Does not bruise/bleed easily. Endocrine: Negative for cold intolerance, heat intolerance, polydipsia, polyphagia and polyuria. Objective Physical Exam Vitals reviewed. Constitutional: Appearance: Normal appearance. HENT: Head: Normocephalic and atraumatic. Right Ear: Tympanic membrane normal. Left Ear: Tympanic membrane normal. Nose: Nose normal. Mouth/Throat: Mouth: Mucous membranes are moist. Pharynx: Oropharynx is clear. Eyes: Pupils: Pupils are equal, round, and reactive to light. Cardiovascular: Rate and Rhythm: Normal rate and regular rhythm. Pulses: Normal pulses. Heart sounds: Normal heart sounds. Pulmonary: Effort: Pulmonary effort is normal. Breath sounds: Normal breath sounds. Abdominal: General: Abdomen is flat. Bowel sounds are normal. Palpations: Abdomen is soft. Musculoskeletal: Cervical back: Normal range of motion. Right knee: Normal range of motion. Tenderness present. Left knee: Decreased range of motion. Tenderness present. Right Lower Extremity: Right leg is amputated below ankle. Skin: General: Skin is warm and dry. Capillary Refill: Capillary refill takes less than 2 seconds. Neurological: General: No focal deficit present. Mental Status: He is alert and oriented to person, place, and time. Gait: Gait abnormal. Psychiatric: Mood and Affect: Mood normal. Behavior: Behavior normal. Assessment/Plan Problem List Items Addressed This Visit Type 2 diabetes mellitus with diabetic neuropathy, without long-term current use of insulin ([facility]) Currently taking Rybelsus 7mg, Glimepiride 4mg Metformin 850mg BID, Most recent labs: hemoglobin A1C 8.1 Increase from 7.1 Next check due next month. Will increase metformin today from 850mg to 1,000mg BID Average FSBS range from BGs range between 150 and 200 No episode of hypoglycemia No medication adverse effects reported by the patient. Patient educated on lifestyle modifications, dietary restrictions, signs and symptoms of hypoglycemia/hyperglycemia and importance of eating regular consistent meals. Stressed upon importance of checking blood glucose at home and bring blood glucose log to appointments. All questions, concerns answered and addressed. Encouraged to call office if persistent hypoglycemia/hyperglycemia on home glucose monitoring noted. Relevant Medications metFORMIN (Glucophage) 1000 MG tablet Other Relevant Orders Hemoglobin A1c Hyperlipidemia ([facility]) Currently taking Rosuvastatin 5mg Denies any myalgias. Continue current regimen. Lumbar spondylosis Relevant Medications oxyCODONE-acetaminophen (Percocet) 5-325 MG tablet (Start on 09/18/2024) COPD with exacerbation ([facility]) Currently taking Pro Air PRN Spiriva Daily; Feels symptoms are well controlled currently. Follows Pulmonology @ [facility]. Knee pain Relevant Medications oxyCODONE-acetaminophen (Percocet) 5-325 MG tablet (Start on 09/18/2024) Essential (primary) hypertension ([facility]) Currently taking Amlodipine 5mg Prazosin 1mg Lisinopril 20mg Does not check BP at home. Denies orthostatic changes, dizziness, cough, shortness of breath, swelling in extremities. Continue current regimen. Given BP log, advised pt to record BP and bring log back with them to next visit. Shoulder pain, right Relevant Medications oxyCODONE-acetaminophen (Percocet) 5-325 MG tablet (Start on 09/18/2024) Need for immunization against influenza - Primary Relevant Orders Flu vaccine greater than or equal to 3 years old, preservative free IM (Completed) documented in this encounter [facility] 09-08-2024 History of Presen t illness Narrative Patient: Joie Lu Jr. : 1955 PCP: Regan Ortega MD SUBJECTIVE This is a 69 y.o. male that presents today with a CC of elongated, thick nails. Pt states nails have been elongated and thick for many years and cause pain with ambulation in shoegear. Pt has tried previous treatment with minimal relief. Pt presents today for nail care and treatment. Patient is DM2 and has positive history of right below-knee amputation Past Medical History: Past Medical History: Diagnosis Date Allergic rhinitis, mild Arthritis Back pain Bilateral knee pain Chronic pain Chronic pain of left knee Chronic sinusitis of both maxillary sinuses Chronic sinusitis, unspecified location Compression fracture of L1 vertebra (CMS/HCC) COPD (chronic obstructive pulmonary disease) ([facility]/HCC) Depression with anxiety Diabetes mellitus (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) Knee joint replacement status, left Left leg pain Left middle ear infection Low back pain with radiation Major depression (CMS/HCC) Non-insulin treated type 2 diabetes mellitus (CMS/HCC) Opiate use Otitis media, acute Pain following oral surgery Partial nontraumatic amputation of foot, right (CMS/HCC) Pneumothorax 2009 Recurrent otitis media, bilateral Right otitis media Swelling of right lower extremity Temporary low platelet count (CMS/HCC) Unspecified internal derangement of right knee Medications: Current Outpatient Medications: albuterol HFA (ProAir HFA) 90 mcg/act inhaler, Inhale 2 puffs every 4 (four) hours if needed for shortness of breath, Disp: 18 g, Rfl: 2 Alcohol Sheets (Alcoh-Wipe) sheet, Once daily, Disp: 100 each, Rfl: 11 Allergy Relief 10 MG tablet, TAKE 1 TABLET BY MOUTH DAILY, Disp: 100 tablet, Rfl: 1 amLODIPine (Norvasc) 5 MG tablet, Take 1 tablet (5 mg) by mouth Daily, Disp: 90 tablet, Rfl: 1 ascorbic acid (Vitamin C) 500 MG ER capsule, Take 500 mg by mouth 1 (one) time each day at the same time., Disp: , Rfl: Blood Glucose Monitoring Suppl (FreeStyle Lite) device, Test daily before all meals/snacks and once before bedtime., Disp: 1 each, Rfl: 0 busPIRone (Buspar) 30 MG tablet, Take 1 tablet (30 mg) by mouth every 12 (twelve) hours, Disp: 180 tablet, Rfl: 1 clonazePAM (KlonoPIN) 1 MG tablet, Take 1 mg by mouth every 8 (eight) hours if needed, Disp: , Rfl: fluticasone (Flonase) 50 MCG/ACT nasal spray, USE 2 SPRAYS IN EACH NOSTRIL ONCE A DAY Shake gently. Before first use, prime pump. After use, clean tip and replace cap., Disp: 16 g, Rfl: 1 Fluticasone Furoate-Vilanterol (Breo Ellipta) 100-25 MCG/ACT aerosol powder , Inhale 1 puff 1 (one) time each day at the same time, Disp: , Rfl: gabapentin (Neurontin) 600 MG tablet, Take 1 tablet (600 mg) by mouth in the morning and 1 tablet (600 mg) in the evening and 1 tablet (600 mg) before bedtime., Disp: 270 tablet, Rfl: 0 glimepiride (Amaryl) 4 MG tablet, Take 0.5 tablets (2 mg) by mouth every 12 (twelve) hours, Disp: 180 tablet, Rfl: 1 glucose blood test strip, Use daily, Disp: 100 each, Rfl: 12 hydrOXYzine HCl (Atarax) 50 MG tablet, Take 1 tablet (50 mg) by mouth 3 (three) times a day as needed for anxiety, Disp: 270 tablet, Rfl: 0 Lancets Ultra Thin 30G misc, 1 each Daily, Disp: 100 each, Rfl: 11 levothyroxine (Synthroid, Levoxyl) 125 MCG tablet, Take 1 tablet (125 mcg) by mouth Daily, Disp: 90 tablet, Rfl: 1 lisinopril 20 MG tablet, Take 1 tablet (20 mg) by mouth Daily, Disp: 90 tablet, Rfl: 1 meloxicam (Mobic) 7.5 MG tablet, TAKE 1 TABLET BY MOUTH DAILY, Disp: 90 tablet, Rfl: 1 metFORMIN (Glucophage) 850 MG tablet, Take 1 tablet (850 mg) by mouth in the morning and 1 tablet (850 mg) before bedtime., Disp: 180 tablet, Rfl: 1 oxyCODONE-acetaminophen (Percocet) 5-325 MG tablet, Take 1 tablet by mouth every 6 (six) hours if needed for severe pain Do not start before August 20, 2024., Disp: 120 tablet, Rfl: 0 prazosin (Minipress) 1 MG capsule, Take 1 capsule (1 mg) by mouth at bedtime, Disp: 90 capsule, Rfl: 1 rosuvastatin (Crestor) 5 MG tablet, Take 1 tablet (5 mg) by mouth Daily, Disp: 30 tablet, Rfl: 2 semaglutide (Rybelsus) 3 MG tablet, Take 1 tablet (3 mg) by mouth in the morning. Take before meals., Disp: 30 tablet, Rfl: 0 [START ON 09/12/2024] semaglutide (Rybelsus) 7 MG tablet, Take 1 tablet (7 mg) by mouth in the morning. Take before meals. Do not start before September 12, 2024., Disp: 30 tablet, Rfl: 1 tiotropium (Spiriva Respimat) 1.25 MCG/ACT inhaler, Inhale 2 puffs in the morning., Disp: , Rfl: venlafaxine XR (Effexor XR) 150 MG 24 hr capsule, Take 1 capsule (150 mg) by mouth Daily Do not crush or chew., Disp: 90 capsule, Rfl: 1 Social History: Social History Socioeconomic History Marital status: Spouse name: Not on file Number of children: Not on file Years of education: Not on file Highest education level: Not on file Occupational History Not on file Tobacco Use Smoking status: Never Passive exposure: Past Smokeless tobacco: Never Vaping Use Vaping status: Never Used Substance and Sexual Activity Alcohol use: Never Comment: caffeine: 2-3 cups per day soda Drug use: Never Sexual activity: Defer Other Topics Concern Not on file Social History Narrative Not on file Social Drivers of Health Financial Resource Strain: High Risk (02/02/2024) Overall Financial Resource Strain (CARDIA) Difficulty of Paying Living Expenses: Hard Food Insecurity: Food Insecurity Present (02/02/2024) Hunger Vital Sign Worried About Running Out of Food in the Last Year: Sometimes true Ran Out of Food in the Last Year: Sometimes true Transportation Needs: No Transportation Needs (02/02/2024) PRAPARE - Transportation Lack of Transportation (Medical): No Lack of Transportation (Non-Medical): No Physical Activity: Inactive (02/02/2024) Exercise Vital Sign Days of Exercise per Week: 0 days Minutes of Exercise per Session: 0 min Stress: Stress Concern Present (02/02/2024) [place] Citizen [place] [employer] Occup[employer] - Occupational Stress Questionnaire Feeling of Stress : Very much Social Connections: Moderately Isolated (02/02/2024) Social Connection and Isolation Panel [NHANES] Frequency of Communication with Friends and Family: Twice a week Frequency of Social Gatherings with Friends and Family: Twice a week Attends Restorationism Services: Never Active Member of Clubs or Organizations: Yes Attends Club or Organization Meetings: Never Marital Status: Intimate Partner Violence: Not on file Housing Stability: Low Risk (02/02/2024) Housing Stability Vital Sign Unable to Pay for Housing in the Last Year: No Number of Places Lived in the Last Year: 1 Unstable Housing in the Last Year: No ROS: General: denies fever, chills, fatigue, malaise OBJECTIVE LE EXAM: DERM: Elongated thick yellow crumbly nails digits 1 through 5 left foot. Diminished hair growth with thin shiny atrophic skin left. Negative dry scaly skin to left foot with negative fissures to left heel VASC: Palpable pedal pulses to the left foot NEURO: 5.07 [place] Krystal monofilament test diminished to forefoot left 125Hz tuning fork diminished to 1st MPJ left ORTHO: Positive pain on palpation to nails 1 through 5 left foot ASSESSMENT 1. Diabetes mellitus due to underlying condition with diabetic polyneuropathy, with long-term current use of insulin ([facility]) 2. Onychomycosis 3. Toe pain, left PLAN Discussed proper foot care with patient today. Debride nails in length and thickness digits 1 through 5 left foot Patient educated today on proper diabetic foot care including monitoring feet daily for any signs of infection openings in the skin or irregularities to both feet. Patient had a diabetic neurological exam today to both their feet and discussed proper shoe gear. Grant Sheth DPM documented in this encounter [facility] 08-30-2024 Telephone encounter Note He called back and felt he needed to explain.. he noted he had lost his daughter and right around this time of year he battles coping w/ the loss; today it was a struggle. Regarding his next PT I told him not to hesitate if he does not feel able to commit; he said for his next PT he will be here cause he needs it (body / mind). [facility] 08-30-2024 Miscellaneous Notes He called back and felt he needed to explain.. he noted he had lost his daughter and right around this time of year he battles coping w/ the loss; today it was a struggle. Regarding his next PT I told him not to hesitate if he does not feel able to commit; he said for his next PT he will be here cause he needs it (body / mind). documented in this encounter [facility] 08-16-2024 Telephone encounter Note Pt needs a refill on his Oxycodone TAYO:08/02/2025 NOV:09/05/2024 [facility] 08-16-2024 Miscellaneous Notes Pt needs a refill on his Oxycodone TAYO:08/02/2025 NOV:09/05/2024 documented in this encounter [facility] 08-10-2024 History of Presen t illness Narrative Associated Problem(s): Hyperlipidemia ([facility]) Currently taking Rosuvastatin 5mg Denies any myalgias. Continue current regimen Associated Problem(s): Type 2 diabetes mellitus with diabetic neuropathy, without long-term current use of insulin ([facility]) Currently taking Metformin, Glimepiride Most recent labs: hemoglobin A1C 8.1 Increase from 7.1 Average FSBS range from BGs range between 150 and 200 No episode of hypoglycemia No medication adverse effects reported by the patient. Patient educated on lifestyle modifications, dietary restrictions, signs and symptoms of hypoglycemia/hyperglycemia and importance of eating regular consistent meals. Stressed upon importance of checking blood glucose at home and bring blood glucose log to appointments. All questions, concerns answered and addressed. Encouraged to call office if persistent hypoglycemia/hyperglycemia on home glucose monitoring noted. Will add SLGT2 Inhibitor and monitor closely. Advised pt to Check blood sugars daily, notify if <70 or >200. Take medications (pills or insulin) as directed. Monitor for s/s of hypoglycemia (sweaty, dizziness, nausea, vomiting, or shakiness). Watch for increase in thirst, urination, or appetite. Inspect feet frequently monitoring for open wounds , and also recommend yearly eye exam. Pt should attempt to remain as physically active as chronic conditions allow, as well as trying to follow a diet low in carbohydrates, and simple sugars. Associated Problem(s): Primary localized osteoarthrosis of multiple sites Was referred to [facility] for second opinion of knee and lumbar pain. Per visit note was not a candidate for surgery and does not need surgery at this time. Is unhappy with outcome and will be going to see [facility] Orthopaedics in September 12 @ 11:00am for a third opinion Reports has been having multiple falls. Instructed pt to stop using cane and start using walker or wheelchair. Reports he has been paying neighbor child to help him with his laundry, as he cannot safely ambulate up and down stairs. Is not driving currently due to truck tire issue and has been getting rides for transportation. Ordered PT and HH evaluation for pt. Images from the original note were not included. Subjective Patient ID: Joie Lu Jr. is a 69 y.o. male who presents for No chief complaint on file.. HPI Was referred to [facility] for second opinion of knee and lumbar pain. Per visit note was not a candidate for surgery and does not need surgery at this time. Is unhappy with outcome and will be going to see [facility] Orthopa[facility]ics in September 12 @ 11:00am for a third opinion Reports has been having multiple falls. Ordered PT and HH evaluation for pt. Has not been taking Levothyroxine. Will reorder today. HTN: Currently taking Amlodipine 5mg Prazosin 1mg Lisinopril 20mg Does not check BP at home. Denies orthostatic changes, dizziness, cough, shortness of breath, swelling in extremities. Continue current regimen. Given BP log, advised pt to record BP and bring log back with them to next visit. HLD: Currently taking Rosuvastatin 5mg Denies any myalgias. Continue current regimen. Component Ref Range & Units 3 wk ago (07/06/24) 3 wk ago (07/06/24) 3 wk ago (07/06/24) 3 wk ago (07/06/24) 3 mo ago (04/29/24) 3 mo ago (04/29/24) TRIGLYCERIDES <=150 mg/dL 57 129 Low R 23.8 R 8.0 R 131 Low R 6.8 Low R CHOLESTEROL <=200 mg/dL 103 5.4 High R 0.3 R 28.89 R 4.5 R 0.7 High R HDL CHOLESTEROL 40 - 60 mg/dL 55 11.2 R 4.4 R 0.28 R 18.3 R 11.6 High R Comment: > or =60 mg/dl - LOW CARDIOVASCULAR RISK <40 mg/dl - HIGH CARDIOVASCULAR RISK LDL CHOLESTEROL CALCULATED mg/dL 36.6 150 High R 1.7 R 301 High R 0.9 Low R Comment: <100 mg/dl OPTIMAL 100-129 mg/dl NEAR OR ABOVE OPTIMAL 130-159 mg/dl BORDERLINE HIGH 160-189 mg/dl HIGH >190 mg/dl VERY HIGH VLDL CHOLESTEROL mg/dL 11.4 0.5 R 0.5 R 0.4 R 1.1 High R CHOL HDL RATIO 1.9 27 R 0.02 R 34 R 0.10 High R Comment: 3.3 - 4.4 LOW RISK 4.4 - 7.1 AVERAGE RISK 7.1 - 11.0 MODERATE RISK >11.0 HIGH RISK ALANINE AMINOTRANSFERASE 67 High R 94 High R ALKALINE PHOSPHATASE 145 High R 166 High R TOTAL PROTEIN 7.6 R 7.3 R ALBUMIN LEVEL 4.1 R 3.8 R ALBUMIN GLOBULIN RATIO 1.2 1.1 Resulting Agency [facility] DMII: Most recent labs: hemoglobin A1C 8.1 Increase from 7.1 Average FSBS range from BGs range between 150 and 200 No episode of hypoglycemia No medication adverse effects reported by the patient. Patient educated on lifestyle modifications, dietary restrictions, signs and symptoms of hypoglycemia/hyperglycemia and importance of eating regular consistent meals. Stressed upon importance of checking blood glucose at home and bring blood glucose log to appointments. All questions, concerns answered and addressed. Encouraged to call office if persistent hypoglycemia/hyperglycemia on home glucose monitoring noted. Education: Check blood sugars daily, notify if <70 or >200. Take medications (pills or insulin) as directed. Monitor for s/s of hypoglycemia (sweaty, dizziness, nausea, vomiting, or shakiness). Watch for increase in thirst, urination, or appetite. Inspect feet frequently monitoring for open wounds , and also recommend yearly eye exam. Pt should attempt to remain as physically active as chronic conditions allow, as well as trying to follow a diet low in carbohydrates, and simple sugars. Review of Systems Constitutional: Negative for activity change, appetite change, chills, diaphoresis, fatigue, fever and unexpected weight change. HENT: Negative for congestion, ear pain, rhinorrhea, sinus pressure, sinus pain, sneezing, sore throat, trouble swallowing and voice change. Eyes: Negative for visual disturbance. Respiratory: Negative for cough, chest tightness, shortness of breath and wheezing. Cardiovascular: Negative for chest pain, palpitations and leg swelling. Gastrointestinal: Negative for abdominal distention, abdominal pain, blood in stool, constipation, diarrhea and vomiting. Genitourinary: Negative for decreased urine volume, dysuria, flank pain, frequency, hematuria and urgency. Musculoskeletal: Positive for arthralgias, gait problem and myalgias. Negative for joint swelling. Skin: Negative for rash. Neurological: Negative for dizziness, tremors, syncope, weakness, light-headedness and headaches. Falls Psychiatric/Behavioral: Negative for decreased concentration and suicidal ideas. The patient is not nervous/anxious. Hematological: Does not bruise/bleed easily. Endocrine: Negative for cold intolerance, heat intolerance, polydipsia, polyphagia and polyuria. Objective Physical Exam Vitals reviewed. Constitutional: Appearance: Normal appearance. HENT: Head: Normocephalic and atraumatic. Right Ear: Tympanic membrane normal. Left Ear: Tympanic membrane normal. Nose: Nose normal. Mouth/Throat: Mouth: Mucous membranes are moist. Pharynx: Oropharynx is clear. Eyes: Pupils: Pupils are equal, round, and reactive to light. Cardiovascular: Rate and Rhythm: Normal rate and regular rhythm. Pulses: Normal pulses. Heart sounds: Normal heart sounds. Pulmonary: Effort: Pulmonary effort is normal. Breath sounds: Normal breath sounds. Abdominal: General: Abdomen is flat. Bowel sounds are normal. Palpations: Abdomen is soft. Musculoskeletal: Cervical back: Normal range of motion. Right knee: Normal range of motion. Tenderness present. Left knee: Decreased range of motion. Tenderness present. Right Lower Extremity: Right leg is amputated below ankle. Skin: General: Skin is warm and dry. Capillary Refill: Capillary refill takes less than 2 seconds. Neurological: General: No focal deficit present. Mental Status: He is alert and oriented to person, place, and time. Gait: Gait abnormal. Psychiatric: Mood and Affect: Mood normal. Behavior: Behavior normal. Assessment/Plan Problem List Items Addressed This Visit Localized osteoarthritis of right knee Relevant Orders Ambulatory referral to Physical Therapy Type 2 diabetes mellitus with diabetic neuropathy, without long-term current use of insulin ([facility]) Currently taking Metformin, Glimepiride Most recent labs: hemoglobin A1C 8.1 Increase from 7.1 Average FSBS range from BGs range between 150 and 200 No episode of hypoglycemia No medication adverse effects reported by the patient. Patient educated on lifestyle modifications, dietary restrictions, signs and symptoms of hypoglycemia/hyperglycemia and importance of eating regular consistent meals. Stressed upon importance of checking blood glucose at home and bring blood glucose log to appointments. All questions, concerns answered and addressed. Encouraged to call office if persistent hypoglycemia/hyperglycemia on home glucose monitoring noted. Will add SLGT2 Inhibitor and monitor closely. Advised pt to Check blood sugars daily, notify if <70 or >200. Take medications (pills or insulin) as directed. Monitor for s/s of hypoglycemia (sweaty, dizziness, nausea, vomiting, or shakiness). Watch for increase in thirst, urination, or appetite. Inspect feet frequently monitoring for open wounds , and also recommend yearly eye exam. Pt should attempt to remain as physically active as chronic conditions allow, as well as trying to follow a diet low in carbohydrates, and simple sugars. Relevant Orders CBC and differential Comprehensive metabolic panel Hyperlipidemia (CMS/HCC) Currently taking Rosuvastatin 5mg Denies any myalgias. Continue current regimen Primary localized osteoarthrosis of multiple sites Was referred to [facility] for second opinion of knee and lumbar pain. Per visit note was not a candidate for surgery and does not need surgery at this time. Is unhappy with outcome and will be going to see [facility] Orthopa[facility]ics in September 12 @ 11:00am for a third opinion Reports has been having multiple falls. Instructed pt to stop using cane and start using walker or wheelchair. Reports he has been paying neighbor child to help him with his laundry, as he cannot safely ambulate up and down stairs. Is not driving currently due to truck tire issue and has been getting rides for transportation. Ordered PT and HH evaluation for pt. Relevant Orders Ambulatory referral to Physical Therapy Presence of left artificial knee joint Relevant Orders Ambulatory referral to Physical Therapy S/P total knee arthroplasty, right Relevant Orders Ambulatory referral to Physical Therapy COPD with exacerbation (CMS/HCC) - Primary Hypothyroidism, unspecified (CMS/HCC) Relevant Medications levothyroxine (Synthroid, Levoxyl) 125 MCG tablet Essential (primary) hypertension (CMS/HCC) Relevant Orders CBC and differential Comprehensive metabolic panel Anemia Relevant Orders Vitamin B12 Ferritin Iron + transferrin + TIBC Frequent falls Relevant Orders Ambulatory referral to Physical Therapy documented in this encounter [facility] 08-02-2024 Instructions Daria Noel NP - 08/02/2024 3:00 PM EDT Labs ordered- these are not fasting. 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 We will recheck this in 6 weeks. I will call Dr. Mcgowan's office to discuss next steps and further recommendations for you moving forward. I will likely place order for Physical therapy- if Dr. Mcgowan agrees with this. I am placing order for home health care. They will call you! documented in this encounter [facility] 07-22-2024 History of Presen t illness Narrative Radiology Service Progress Note PATIENT NAME: Joie Lu JR DATE OF SERVICE: July 22, 2024 TIME: 10:08 AM PATIENT IDENTITY VERIFICATION COMPLETED USING TWO (2) IDENTIFIERS: Name and Date of confirmed by patient verbally. FALL SCREENING: Has the patient had 2 falls in the last year or 1 fall with injury or currently using an Ambulatory Assistive Device (Walker, Cane, Wheelchair, Crutches, etc.)? Yes, Patient High Risk for Falls What interventions were put in place to prevent falls during this visit? [place] Risk Wristband Applied, Offered Assistance with Transfers/Clothing, and Increased Observations by Caregivers PATIENT GENDER DATA: Male PATIENT RELEVANT IMPLANT DATA REVIEWED: Not Applicable PATIENT PRESENTS WITH AN IMPLANTABLE OR ATTACHED RAILROAD SIGNAL OPERATOR: No RADIOLOGY DEPARTMENT: General X-ray: Exam(s) Completed: Lower Extremity X-Ray(s): Knee, AP / Lat / Tunne / Merchant Bilateral PERIPHERAL IV DATA: Not applicable SIGNED BY: RT Ruma(R) July 22, 2024 10:08 AM documented in this encounter [facility] 07-22-2024 Note HNO ID: [id number] Author: JAMAL DONNELLY RT(R) Service: ? Author Type: Technologist Type: Progress Notes Filed: 07/22/2024 10:09 Note Text: Radiology Service Progress Note PATIENT NAME: Joie Lu JR DATE OF SERVICE: July 22, 2024 TIME: 10:08 AM PATIENT IDENTITY VERIFICATION COMPLETED USING TWO (2) IDENTIFIERS: Name and Date of confirmed by patient verbally. FALL SCREENING: Has the patient had 2 falls in the last year or 1 fall with injury or currently using an Ambulatory Assistive Device (Walker, Cane, Wheelchair, Crutches, etc.)? Yes, Patient High Risk for Falls What interventions were put in place to prevent falls during this visit? [place] Risk Wristband Applied, Offered Assistance with Transfers/Clothing, and Increased Observations by Caregivers PATIENT GENDER DATA: Male PATIENT RELEVANT IMPLANT DATA REVIEWED: Not Applicable PATIENT PRESENTS WITH AN IMPLANTABLE OR ATTACHED RAILROAD SIGNAL OPERATOR: No RADIOLOGY DEPARTMENT: General X-ray: Exam(s) Completed: Lower Extremity X-Ray(s): Knee, AP / Lat / Tunne / Merchant Bilateral PERIPHERAL IV DATA: Not applicable SIGNED BY: RT Ruma(R) July 22, 2024 10:08 AM [facility] 07-13-2024 Note HNO ID: [id number] Author: CARMEN WILLIAM MD Service: ? Author Type: Physician Type: Progress Notes Filed: 07/22/2024 11:48 Note Text: SERVICE DATE: July 13, 2024 PCP: Regan Ortega MD Patient was self-referred. Subjective Patient ID: Juan José is a 69 year old male. Left knee, chronic pain. Hx of left knee replacement.2018 by Azra Bruce.The patient is a 69-year-old male, who had a history of chronic knee infection, prior surgery, including debridement and placement of a hinge knee component due to instability. He initially did quite well from this. However, he then began to have knee pain as well as instability. X- rays did reveal what appeared to be failure of the component. Some bracing done, there was no obvious breakage. This failed. Upon repeat x-ray several weeks later, there was no obvious of catastrophic failure with breakage of the metal components. He opted for revision total knee 06/05/2014 Fell on left knee, has wound with underlying sub cutaneous tissue exposed and due to hx of T2 DM, at high risk of infection and poor wound healing. Since he was seen by Dr. Escamilla's office in October he has had an episode of sepsis and required removal of the right knee with mobile spacer placed. He has been walking with use of cane or rolling walker. He notes some falling particular when getting off the toilet or getting out of a chair. He most recently fell on the left side with a deep abrasion over the anterior aspect of the left knee. He noted no history of fevers chills or sweats. He was referred to the [facility] for evaluation and consideration of further surgery. 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 Review of Systems ACTIVE PROBLEM LIST Acute Pain of Left Knee Septic arthritis of knee, left (HCC) Type 2 Diabetes Mellitus Without Complication, Without Long-Term Current Use of Insulin (Hcc) Hypothyroidism Hyperlipidemia Htn (Hypertension) Gout Wrist Arthritis Pneumonia Elevated Lfts Pulmonary Nodule H/O Clostridium Difficile Infection Dvt Prophylaxis Metatarsalgia Infection and Inflammatory Reaction Due to Unspecified Device, Implant, and Graft Left Wrist Pain Arthritis of Left Wrist Carpal Tunnel Syndrome Diabetic Neuropathy, Painful (Hcc) Arthralgia of Right Lower Leg History of Transmetatarsal Amputation of Right Foot (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) Fracture Gout H/O Clostridium difficile infection 10/2012 [...] Social History Tobacco Use Smoking status: Former Current packs/day: 0.00 Average pa (more content not included)... [facility] 07-13-2024 History of Presen t illness Narrative SERVICE DATE: July 13, 2024 PCP: Regan Ortega MD Patient was self-referred. Subjective Patient ID: Juan José is a 69 year old male. Left knee, chronic pain. Hx of left knee replacement.2018 by Azra Bruce.The patient is a 69-year-old male, who had a history of chronic knee infection, prior surgery, including debridement and placement of a hinge knee component due to instability. He initially did quite well from this. However, he then began to have knee pain as well as instability. X- rays did reveal what appeared to be failure of the component. Some bracing done, there was no obvious breakage. This failed. Upon repeat x-ray several weeks later, there was no obvious of catastrophic failure with breakage of the metal components. He opted for revision total knee 06/05/2014 Fell on left knee, has wound with underlying sub cutaneous tissue exposed and due to hx of T2 DM, at high risk of infection and poor wound healing. Since he was seen by Dr. Escamilla's office in October he has had an episode of sepsis and required removal of the right knee with mobile spacer placed. He has been walking with use of cane or rolling walker. He notes some falling particular when getting off the toilet or getting out of a chair. He most recently fell on the left side with a deep abrasion over the anterior aspect of the left knee. He noted no history of fevers chills or sweats. He was referred to the [facility] for evaluation and consideration of further surgery. 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 Review of Systems ACTIVE PROBLEM LIST Acute Pain of Left Knee Septic arthritis of knee, left ([facility]) Type 2 Diabetes Mellitus Without Complication, Without Long-Term Current Use of Insulin ([facility]) Hypothyroidism Hyperlipidemia Htn (Hypertension) Gout Wrist Arthritis Pneumonia Elevated Lfts Pulmonary Nodule H/O Clostridium Difficile Infection Dvt Prophylaxis Metatarsalgia Infection and Inflammatory Reaction Due to Unspecified Device, Implant, and Graft Left Wrist Pain Arthritis of Left Wrist Carpal Tunnel Syndrome Diabetic Neuropathy, Painful ([facility]) Arthralgia of Right Lower Leg History of Transmetatarsal Amputation of Right Foot (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 CHOLECYSTECTOMY HX 1999 COLONOSCOPY HAND SURGERY HX Left LAMINECTOMY W/O FFD /2 VERT SEG LUMBAR 1986 Laminectomy, lumbar PAST [...] Social History Tobacco Use Smoking status: Former Current packs/day: 0.00 Average packs/day: 0.5 packs/day for 1 year (0.5 ttl pk-yrs) Types: Cigarettes Start date: 02/15/1981 Quit date: 02/15/1982 Years since quittin.4 Smokeless tobacco: Never Vaping Use Vaping status: Never Used Substance Use Topics Alcohol use: Not Currently Drug use: Never Comment: declines tx for drug/alcohol abuse in the past ALLERGIES Allergen Reactions Morphine Rash, Itching Bee Sting Swelling, Anaphylaxis Penicillins Itching MEDICATIONS: clonazePAM (KLONOPIN) 1 mg tablet Take 1 tablet by mouth three times a day as needed for up to 180 days. albuterol HFA (PROVENTIL HFA, VENTOLIN HFA) 90 mcg/actuation inhaler Inhale 2 Puffs as instructed every 4 hours as needed. cyclobenzaprine (FLEXERIL) 10 mg tablet Take 1 tablet by mouth three times a day. doxycycline hyclate (VIBRAMYCIN) 100 mg capsule Take 100 mg by mouth two times a day. hydrOXYzine HCl (ATARAX) 50 mg tablet Take 50 mg by mouth. azelastine (ASTELIN, ASTEPRO) 0.1% nasal spray 1 [...] Take 1 tablet by mouth once daily. Allergies, medications, past surgical history, family history and past medical history were reviewed per this encounter. Objective Ortho Exam the patient has a relatively large gentleman morbidly obese seated in a chair. He is powerfully built with excellent upper extremity strength but limitation in bilateral shoulder motion. He has well-healed incisions over the anterior aspect of the right or left knee. He has a 10 degree extensor lag on the left side left knee is rock stable to varus valgus stress. Right knee has 5 degree extensor lag range of motion right knee is 0 to 100 degrees. Knee right knee is stable to varus valgus stress. Motor and sensory intact in both lower extremities. He has a deep abrasion to 9 cm in diameter over the anterior aspect of the left knee. Radiographs demonstrate an all poly tibia on the right side distinct change from the x-rays noted in October. Left side appears unchanged compared to films done in October 2023. Assessment/Plan The patient is a very difficult position. He has poorly functioning knees after multiple surgeries due to infection. The patient shows no sign of active infection at the present time. He was counseled on activity. Falls precautions were emphasized. He is not a candidate for surgery nor does he need surgery at the present time. Follow-up as needed. SIGNATURE: Carmen William MD PATIENT NAME: Joie Lu JR DATE: 07/22/2024 TIME: 1:42 PM documented in this encounter [facility] 06-22-2024 History of Presen t illness Narrative Associated Problem(s): Shoulder pain, right Currently taking Percocet 5/325mg for Pain Cannot have injection per Dr. Duenas until ATB completed for knee spacer. Associated Problem(s): Obesity Discussed with patient their BMI (actual, verses recommended). We have also discussed lifestyle modifications: attempts to perform physical activity as chronic conditions allow, also to monitor dietary intake: increasing protein/fruits/veggies and lowering carb intake (unless contraindicated). Limit sodas, juices, and sugary drinks. Also discussed oral medications that can be utilized for weight loss, as well as surgical options for weight loss. Associated Problem(s): COPD with exacerbation (CMS/HCC) Currently taking Pro Air PRN Spiriva Daily; Feels symptoms are well controlled currently. Follows Pulmonology @ [facility]. Associated Problem(s): Essential (primary) hypertension (CMS/HCC) Currently taking Amlodipine 5mg Pazosin 1mg Lisinopril 20mg Does not check BP at home. Given BP log to check BP- bring back to next OV. Denies orthostatic changes, dizziness, cough, shortness of breath, swelling in extremities. Continue current regimen. Associated Problem(s): Diabetic neuropathy, painful (CMS/HCC) On Gabapentin 600mg TID. Associated Problem(s): Type 2 diabetes mellitus with diabetic neuropathy, unspecified (CMS/HCC) Needs A1C completed!!! Most recent labs: hemoglobin A1C Average FSBS range from BGs range between 79 and 150 Some episodes of hypoglycemia reported. No medication adverse effects reported by the patient. Patient educated on lifestyle modifications, dietary restrictions, signs and symptoms of hypoglycemia/hyperglycemia and importance of eating regular consistent meals. Stressed upon importance of checking blood glucose at home and bring blood glucose log to appointments. All questions, concerns answered and addressed. Encouraged to call office if persistent hypoglycemia/hyperglycemia on home glucose monitoring noted. Last DM eye Exam: 6 months ago DM foot exam: Done by podiatry Dr. Sheth 06/15/2024. Images from the original note were not included. Subjective Patient ID: Joie Lu Jr. is a 69 y.o. male who presents for Follow-up (ONE MONTH). HPI Specialists: Ortho 1 Month follow-up PT SAW DR DUENAS BUT CANNOT GIVE CORTISONE SHOT in shoulder UNTIL ATB SPACER IS OUT OF THE KNEE. Dr. Mcgowan removed fluid from both knees 2 weeks ago. Culture sent of fluid; Next appointment with Dr. Mcgowan in 2 weeks. Currently is taking Percocet 5mg/325mg PRN pain Gabapentin Pain still unmanageable Rates pain 8/10 on scale of 0-10 with movement Pain is 5/10 at rest on scale of 0-10 Saw [facility] for vertigo-refilled Clonazepam. HTN: Currently taking Amlodipine 5mg Pazosin 1mg Lisinopril 20mg Does not check BP at home. Denies orthostatic changes, dizziness, cough, shortness of breath, swelling in extremities. Continue current regimen. Needs A1C completed!!! Most recent labs: hemoglobin A1C Average FSBS range from BGs range between 79 and 150 Some episodes of hypoglycemia reported. No medication adverse effects reported by the patient. Patient educated on lifestyle modifications, dietary restrictions, signs and symptoms of hypoglycemia/hyperglycemia and importance of eating regular consistent meals. Stressed upon importance of checking blood glucose at home and bring blood glucose log to appointments. All questions, concerns answered and addressed. Encouraged to call office if persistent hypoglycemia/hyperglycemia on home glucose monitoring noted. Last DM eye Exam: 6 months ago DM foot exam: Done by podiatry Dr. Sheth 06/15/2024. Review of Systems Constitutional: Negative for activity change, appetite change, chills, diaphoresis, fatigue, fever and unexpected weight change. HENT: Negative for congestion, ear pain, rhinorrhea, sinus pressure, sinus pain, sneezing, sore throat, trouble swallowing and voice change. Eyes: Negative for visual disturbance. Respiratory: Negative for cough, chest tightness, shortness of breath and wheezing. Cardiovascular: Negative for chest pain, palpitations and leg swelling. Gastrointestinal: Negative for abdominal distention, abdominal pain, blood in stool, constipation, diarrhea and vomiting. Genitourinary: Negative for decreased urine volume, dysuria, flank pain, frequency, hematuria and urgency. Musculoskeletal: Positive for arthralgias, joint swelling and myalgias. Negative for gait problem. Skin: Negative for rash. Neurological: Positive for numbness. Negative for dizziness, tremors, syncope, weakness, light-headedness and headaches. Numbness/tingling Chronic Psychiatric/Behavioral: Negative for decreased concentration and suicidal ideas. The patient is nervous/anxious. Hematological: Does not bruise/bleed easily. Endocrine: Negative for cold intolerance, heat intolerance, polydipsia, polyphagia and polyuria. Objective Physical Exam Vitals reviewed. Constitutional: Appearance: Normal appearance. HENT: Head: Normocephalic and atraumatic. Right Ear: Tympanic membrane normal. Left Ear: Tympanic membrane normal. Nose: Nose normal. Mouth/Throat: Mouth: Mucous membranes are moist. Pharynx: Oropharynx is clear. Eyes: Pupils: Pupils are equal, round, and reactive to light. Cardiovascular: Rate and Rhythm: Normal rate and regular rhythm. Pulses: Normal pulses. Heart sounds: Normal heart sounds. Pulmonary: Effort: Pulmonary effort is normal. Breath sounds: Normal breath sounds. Abdominal: General: Abdomen is flat. Bowel sounds are normal. Palpations: Abdomen is soft. Musculoskeletal: General: Normal range of motion. Cervical back: Normal range of motion. Right lower leg: Tenderness present. Edema present. Left lower leg: Tenderness present. Edema present. Comments: Edema to bilateral knees, non pitting. Skin: General: Skin is warm and dry. Capillary Refill: Capillary refill takes less than 2 seconds. Neurological: General: No focal deficit present. Mental Status: He is alert and oriented to person, place, and time. Psychiatric: Mood and Affect: Mood normal. Behavior: Behavior normal. Assessment/Plan Problem List Items Addressed This Visit Obesity Discussed with patient their BMI (actual, verses recommended). We have also discussed lifestyle modifications: attempts to perform physical activity as chronic conditions allow, also to monitor dietary intake: increasing protein/fruits/veggies and lowering carb intake (unless contraindicated). Limit sodas, juices, and sugary drinks. Also discussed oral medications that can be utilized for weight loss, as well as surgical options for weight loss. Diabetic neuropathy, painful (CMS/HCC) - Primary On Gabapentin 600mg TID. Lumbar spondylosis Relevant Medications oxyCODONE-acetaminophen (Percocet) 5-325 MG tablet COPD with exacerbation (CMS/HCC) Currently taking Pro Air PRN Spiriva Daily; Feels symptoms are well controlled currently. Follows Pulmonology @ [facility]. Knee pain Relevant Medications oxyCODONE-acetaminophen (Percocet) 5-325 MG tablet Essential (primary) hypertension (CMS/HCC) Currently taking Amlodipine 5mg Pazosin 1mg Lisinopril 20mg Does not check BP at home. Given BP log to check BP- bring back to next OV. Denies orthostatic changes, dizziness, cough, shortness of breath, swelling in extremities. Continue current regimen. Type 2 diabetes mellitus with diabetic neuropathy, unspecified (CMS/HCC) Needs A1C completed!!! Most recent labs: hemoglobin A1C Average FSBS range from BGs range between 79 and 150 Some episodes of hypoglycemia reported. No medication adverse effects reported by the patient. Patient educated on lifestyle modifications, dietary restrictions, signs and symptoms of hypoglycemia/hyperglycemia and importance of eating regular consistent meals. Stressed upon importance of checking blood glucose at home and bring blood glucose log to appointments. All questions, concerns answered and addressed. Encouraged to call office if persistent hypoglycemia/hyperglycemia on home glucose monitoring noted. Last DM eye Exam: 6 months ago DM foot exam: Done by podiatry Dr. Sheth 06/15/2024. Relevant Medications glimepiride (Amaryl) 4 MG tablet Shoulder pain, right Currently taking Percocet 5/325mg for Pain Cannot have injection per Dr. Duenas until ATB completed for knee spacer. Relevant Medications oxyCODONE-acetaminophen (Percocet) 5-325 MG tablet documented in this encounter [facility] 06-22-2024 Instructions Daria Noel NP - 06/22/2024 2:00 PM EDT FASTING labs ordered. Nothing to eat or drink for 12 hours prior to blood draw. Water and black coffee ok. Education: Check blood sugars daily, notify if <70 or >200. Take medications (pills or insulin) as directed. Monitor for s/s of hypoglycemia (sweaty, dizziness, nausea, vomiting, or shakiness). Watch for increase in thirst, urination, or appetite. Inspect feet frequently monitoring for open wounds , and also recommend yearly eye exam. Pt should attempt to remain as physically active as chronic conditions allow, as well as trying to follow a diet low in carbohydrates, and simple sugars. documented in this encounter [facility] 06-16-2024 History of Presen t illness Narrative Patient: Joie Lu . : 1955 PCP: Regan Ortega MD SUBJECTIVE This is a 69 y.o. male that presents today with a CC of elongated, thick nails. Pt states nails have been elongated and thick for many years and cause pain with ambulation in shoegear. Pt has tried previous treatment with minimal relief. Pt presents today for nail care and treatment. Patient is DM2 and has positive history of right below-knee amputation Past Medical History: Past Medical History: Diagnosis Date Allergic rhinitis, mild Arthritis Back pain Bilateral knee pain Chronic pain Chronic pain of left knee Chronic sinusitis of both maxillary sinuses Chronic sinusitis, unspecified location Compression fracture of L1 vertebra ([facility]) COPD (chronic obstructive pulmonary disease) ([facility]) Depression with anxiety Diabetes mellitus ([facility]) Diabetic neuropathy, type II diabetes mellitus ([facility]) Dyslipidemia ([facility]) Ear discomfort, right Hyperkalemia Hyperkalemia Hypertension ([facility]) Hypertension, benign ([facility]) Hyponatremia Hypothyroid (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) Non-insulin treated type 2 diabetes mellitus ([facility]) Opiate use Otitis media, acute Pain following oral surgery Partial nontraumatic amputation of foot, right ([facility]) Pneumothorax 2009 Recurrent otitis media, bilateral Right otitis media Swelling of right lower extremity Temporary low platelet count ([facility]) Unspecified internal derangement of right knee Medications: Current Outpatient Medications: albuterol HFA (ProAir HFA) 90 mcg/act inhaler, Inhale 2 puffs every 4 (four) hours if needed for shortness of breath, Disp: , Rfl: Alcohol Sheets (Alcoh-Wipe) sheet, Once daily, Disp: 100 each, Rfl: 11 Allergy Relief 10 MG tablet, TAKE 1 TABLET BY MOUTH DAILY, Disp: 100 tablet, Rfl: 1 amLODIPine (Norvasc) 5 MG tablet, Take 1 tablet (5 mg) by mouth Daily, Disp: 90 tablet, Rfl: 1 ascorbic acid (Vitamin C) 500 MG ER capsule, Take 500 mg by mouth 1 (one) time each day at the same time., Disp: , Rfl: atorvastatin (Lipitor) 10 MG tablet, Take 1 tablet (10 mg) by mouth Daily, Disp: 90 tablet, Rfl: 1 Blood Glucose Monitoring Suppl (FreeStyle Lite) device, Test daily before all meals/snacks and once before bedtime., Disp: 1 each, Rfl: 0 busPIRone (Buspar) 30 MG tablet, Take 1 tablet (30 mg) by mouth every 12 (twelve) hours, Disp: 180 tablet, Rfl: 1 cyclobenzaprine (Flexeril) 10 MG tablet, TAKE 1 TABLET BY MOUTH THREE TIMES DAILY, Disp: 90 tablet, Rfl: 1 fluticasone (Flonase) 50 MCG/ACT nasal spray, instill 2 (TWO) sprays IN EACH NOSTRIL DAILY, Disp: 16 g, Rfl: 1 Fluticasone Furoate-Vilanterol (Breo Ellipta) 100-25 MCG/ACT aerosol powder , Inhale 1 puff 1 (one) time each day at the same time, Disp: , Rfl: gabapentin (Neurontin) 600 MG tablet, Take 1 tablet (600 mg) by mouth in the morning and 1 tablet (600 mg) in the evening and 1 tablet (600 mg) before bedtime., Disp: 270 tablet, Rfl: 0 glimepiride (Amaryl) 4 MG tablet, Take 1 tablet (4 mg) by mouth every 12 (twelve) hours, Disp: 180 tablet, Rfl: 1 glucose blood test strip, Use daily, Disp: 100 each, Rfl: 12 hydrOXYzine HCl (Atarax) 50 MG tablet, Take 1 tablet (50 mg) by mouth 3 (three) times a day as needed for anxiety, Disp: 270 tablet, Rfl: 0 Lancets Ultra Thin 30G misc, 1 each Daily, Disp: 100 each, Rfl: 11 levothyroxine (Synthroid, Levoxyl) 125 MCG tablet, Take 1 tablet (125 mcg) by mouth Daily, Disp: 90 tablet, Rfl: 1 lisinopril 20 MG tablet, Take 1 tablet (20 mg) by mouth Daily, Disp: 90 tablet, Rfl: 1 meloxicam (Mobic) 7.5 MG tablet, TAKE 1 TABLET BY MOUTH DAILY, Disp: 90 tablet, Rfl: 1 metFORMIN (Glucophage) 850 MG tablet, Take 1 tablet (850 mg) by mouth in the morning and 1 tablet (850 mg) before bedtime., Disp: 180 tablet, Rfl: 1 prazosin (Minipress) 1 MG capsule, Take 1 capsule (1 mg) by mouth at bedtime, Disp: 90 capsule, Rfl: 1 tiotropium (Spiriva Respimat) 1.25 MCG/ACT inhaler, Inhale 2 puffs in the morning., Disp: , Rfl: venlafaxine XR (Effexor XR) 150 MG 24 hr capsule, Take 1 capsule (150 mg) by mouth Daily Do not crush or chew., Disp: 90 capsule, Rfl: 1 Social History: Social History Socioeconomic History Marital status: Spouse name: Not on file Number of children: Not on file Years of education: Not on file Highest education level: Not on file Occupational History Not on file Tobacco Use Smoking status: Never Passive exposure: Past Smokeless tobacco: Never Vaping Use Vaping status: Never Used Substance and Sexual Activity Alcohol use: Never Comment: caffeine: 2-3 cups per day soda Drug use: Never Sexual activity: Defer Other Topics Concern Not on file Social History Narrative Not on file Social Determinants of Health Financial Resource Strain: High Risk (02/02/2024) Overall Financial Resource Strain (CARDIA) Difficulty of Paying Living Expenses: Hard Food Insecurity: Food Insecurity Present (02/02/2024) Hunger Vital Sign Worried About Running Out of Food in the Last Year: Sometimes true Ran Out of Food in the Last Year: Sometimes true Transportation Needs: No Transportation Needs (02/02/2024) PRAPARE - Transportation Lack of Transportation (Medical): No Lack of Transportation (Non-Medical): No Physical Activity: Inactive (02/02/2024) Exercise Vital Sign Days of Exercise per Week: 0 days Minutes of Exercise per Session: 0 min Stress: Stress Concern Present (02/02/2024) [place] of Occupational Health - Occupational Stress Questionnaire Feeling of Stress : Very much Social Connections: Moderately Isolated (02/02/2024) Social Connection and Isolation Panel [NHANES] Frequency of Communication with Friends and Family: Twice a week Frequency of Social Gatherings with Friends and Family: Twice a week Attends Restorationism Services: Never Active Member of Clubs or Organizations: Yes Attends Club or Organization Meetings: Never Marital Status: Intimate Partner Violence: Not on file Housing Stability: Low Risk (02/02/2024) Housing Stability Vital Sign Unable to Pay for Housing in the Last Year: No Number of Places Lived in the Last Year: 1 Unstable Housing in the Last Year: No ROS: General: denies fever, chills, fatigue, malaise OBJECTIVE LE EXAM: DERM: Elongated thick yellow crumbly nails digits 1 through 5 left foot. Diminished hair growth with thin shiny atrophic skin bilaterally. Negative dry scaly skin to feet with negative fissures to bilateral heels VASC: Palpable pedal pulses bilaterally NEURO: 5.07 [place] Krystal monofilament test diminished to forefoot bilaterally 125Hz tuning fork diminished to 1st MPJ bilaterally ORTHO: Positive pain on palpation to nails 1 through 5 left foot ASSESSMENT 1. Diabetes mellitus due to underlying condition with diabetic polyneuropathy, with long-term current use of insulin ([facility]) 2. Onychomycosis 3. Toe pain, left 4. Xerosis cutis PLAN Discussed proper foot care with patient today. Debride nails in length and thickness digits 1 through 5 left foot Patient educated today on proper diabetic foot care including monitoring feet daily for any signs of infection openings in the skin or irregularities to both feet. Patient had a diabetic neurological exam today to both their feet and discussed proper shoe gear. Grant Sheth DPM documented in this encounter [facility] 05-27-2024 Note HNO ID: [id number] Author: PARTHA JACKSON PA-C Service: ? Author Type: Physician Manager It Training Type: Progress Notes Filed: 05/27/2024 16:00 Note Text: History of Present Illness Mr. 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 The following information above was copied, reviewed and is still up to date. Last seen 01/27/2023. Since last seen, He has been in and out of a nursing facility given issues with his knees. He currently has an antibiotic spacer. He developed sepsis after a knee replacement. He has not any Klonopin for the tinnitus for about 3 days. He is starting to shake with not being on it. His PCP left and the PASTER OPERATOR refused to write it for him. The tinnitus has started to flare in the left ear since he was not able to take his medication. There are times he will have fluid come out of the ears, but this is usually when he will lay down after a shower. When he blows his nose, the left side opens. Otalgia: denies Hearing Loss: Stable. Dizziness/Imbalance: denies Facial Numbness, Weakness or Tingling: denies ALLERGIES Allergen Reactions Morphine Rash, Itching Bee Sting Swelling, Anaphylaxis Penicillins Itching Current Outpatient Medications on File Prior to Visit Medication Sig albuterol HFA (PROVENTIL HFA, VENTOLIN HFA) 90 mcg/actuation inhaler Inhale 2 Puffs as instructed every 4 hours as needed. cyclobenzaprine (FLEXERIL) 10 mg tablet Take 1 tablet by mouth three times a day. doxycycline hyclate (VIBRAMYCIN) 100 mg capsule Take 100 mg by mouth two times a day. hydrOXYzine HCl (ATARAX) 50 mg tablet Take 50 mg by mouth. azelastine (ASTELIN, ASTEPRO) 0.1% nasal spray 1 [...] mouth three times daily for 180 days. No current facility-administered medications on file prior to visit. Objective: There were no vitals taken for this visit. Appearance: Non-syndromic, cooperative and calm Communication: Voice has adequate volume; there is no stridor Head/Face: head and facial contours are symmetric Facial nerve 1/6 bilateral Skin: no skin lesions or scarring on face Ears: AD External auditory canal is patent. TM is intact but thickened posteriorly. No infection or effusion noted. External auditory canal is patent. TM is clear and intact. 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 Follow up in 6 months. Orders: Office Visit on 05/27/24 clonazePAM (KLONOPIN) 1 mg tablet Procedures: None. Partha Jackson PA-C May 27, 2024 3:59 PM Medical Decision Making: Problems: Low: Stable chronic illness Risk: Moderate: Drug management Medical Decision Making Level: 3 - Low [facility] 05-27-2024 History of Presen t illness Narrative History of Present Illness Mr. 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 The following information above was copied, reviewed and is still up to date. Last seen 01/27/2023. Since last seen, He has been in and out of a nursing facility given issues with his knees. He currently has an antibiotic spacer. He developed sepsis after a knee replacement. He has not any Klonopin for the tinnitus for about 3 days. He is starting to shake with not being on it. His PCP left and the PASTER OPERATOR refused to write it for him. The tinnitus has started to flare in the left ear since he was not able to take his medication. There are times he will have fluid come out of the ears, but this is usually when he will lay down after a shower. When he blows his nose, the left side opens. Otalgia: denies Hearing Loss: Stable. Dizziness/Imbalance: denies Facial Numbness, Weakness or Tingling: denies ALLERGIES Allergen Reactions Morphine Rash, Itching Bee Sting Swelling, Anaphylaxis Penicillins Itching Current Outpatient Medications on File Prior to Visit Medication Sig albuterol HFA (PROVENTIL HFA, VENTOLIN HFA) 90 mcg/actuation inhaler Inhale 2 Puffs as instructed every 4 hours as needed. cyclobenzaprine (FLEXERIL) 10 mg tablet Take 1 tablet by mouth three times a day. doxycycline hyclate (VIBRAMYCIN) 100 mg capsule Take 100 mg by mouth two times a day. hydrOXYzine HCl (ATARAX) 50 mg tablet Take 50 mg by mouth. azelastine (ASTELIN, ASTEPRO) 0.1% nasal spray 1 [...] mouth three times daily for 180 days. No current facility-administered medications on file prior to visit. Objective: There were no vitals taken for this visit. Appearance: Non-syndromic, cooperative and calm Communication: Voice has adequate volume; there is no stridor Head/Face: head and facial contours are symmetric Facial nerve 1/6 bilateral Skin: no skin lesions or scarring on face Ears: AD External auditory canal is patent. TM is intact but thickened posteriorly. No infection or effusion noted. External auditory canal is patent. TM is clear and intact. 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 Follow up in 6 months. Orders: Office Visit on 05/27/24 clonazePAM (KLONOPIN) 1 mg tablet Procedures: None. Partha Jackson PA-C May 27, 2024 3:59 PM Medical Decision Making: Problems: Low: Stable chronic illness Risk: Moderate: Drug management Medical Decision Making Level: 3 - Low documented in this encounter [facility] 05-27-2024 Nurse Note Tobacco Use: .5 packs/day, for 1 years. Quit 02/15/1982. Types: Cigarettes Was smoking cessation packet given? N/A - Patient is a non-smoker or quit >1 year ago. Was a referral initiated?N/A Patient is a non-smoker Celia Nascimento RN [facility] 05-27-2024 Nurse Note Tobacco Use: .5 packs/day, for 1 years. Quit 02/15/1982. Types: Cigarettes Was smoking cessation packet given? N/A - Patient is a non-smoker or quit >1 year ago. Was a referral initiated?N/A Patient is a non-smoker Celia Nascimento, GEE documented in this encounter [facility] 05-27-2024 Telephone encounter Note I have not seen patient within the last 6 months. Appointment was over one year ago. Partha Jackson PA-C May 27, 2024 9:46 AM [facility] 05-27-2024 Miscellaneous Notes I have not seen patient within the last 6 months. Appointment was over one year ago. Partha Jackson PA-C May 27, 2024 9:46 AM documented in this encounter [facility] 05-27-2024 Telephone encounter Note I cannot legally prescribe without an appointment within the last 6 months. It has been over one year. Please see if patient can be seen today as I have people that are not able to come. I can see him at 1:25, 1:50 or 3:30. If he cannot make these appointments, lets get him in [place]. Please note that if he sees his PCP or another provider routinely, he should reach out to see if they are willing to prescribed them until his appointment. Partha Jackson PA-C May 27, 2024 9:43 AM [facility] 05-27-2024 Miscellaneous Notes I cannot legally prescribe without an appointment within the last 6 months. It has been over one year. Please see if patient can be seen today as I have people that are not able to come. I can see him at 1:25, 1:50 or 3:30. If he cannot make these appointments, lets get him in [place]. Please note that if he sees his PCP or another provider routinely, he should reach out to see if they are willing to prescribed them until his appointment. Partha Jackson PA-C May 27, 2024 9:43 AM Spoke with patient who explained that he had originally been prescribed klonapin by Dr Ball for popping sounds/sensation in his left ear. Partha Jackson had prescribed it for him last. In the recent past, he has had 3 surgeries on his knee and has been in and out of nursing facilities rehabilitating. His stress level is very high and he has been having difficulty sleeping and is now experiencing issues with shaking. He has been out of klonapin for 3 days now. He is currently scheduled to see Partha 06/28 and was unable to get a sooner appointment. Last seen by Partha 01/27/23. Asking for her advisement. Celia Nascimento RN Attempted to contact pt, no personal vm greeting. Asked to contact office Pt has not been prescribed Klonopin since 2022. Is another provider prescribing? Person Calling: Patient Reason for Call: Patient is asking should he be worried about seizures since he cannot get his clonazepam until after his appt on 06/28. Please call Pt Phone #: [phone] Pharmacy Name and # : Pt last seen: 05/24/2024 Nichol Whittington documented in this encounter [facility] 05-27-2024 Telephone encounter Note Spoke with patient who explained that he had originally been prescribed klonapin by Dr Ball for popping sounds/sensation in his left ear. Partha Jackson had prescribed it for him last. In the recent past, he has had 3 surgeries on his knee and has been in and out of nursing facilities rehabilitating. His stress level is very high and he has been having difficulty sleeping and is now experiencing issues with shaking. He has been out of klonapin for 3 days now. He is currently scheduled to see Partha 06/28 and was unable to get a sooner appointment. Last seen by Partha 01/27/23. Asking for her advisement. Celia Nascimento, GEE [facility] 05-25-2024 Telephone encounter Note Attempted to contact pt, no personal vm greeting. Asked to contact office Pt has not been prescribed Klonopin since 2022. Is another provider prescribing? [facility] 05-25-2024 Telephone encounter Note Person Calling: Patient Reason for Call: Patient is asking should he be worried about seizures since he cannot get his clonazepam until after his appt on 06/28. Please call Pt Phone #: [phone] Pharmacy Name and # : Pt last seen: 05/24/2024 Nichol Whittington T [facility] 05-25-2024 Telephone encounter Note Left full message on patient VM. T [facility] 05-25-2024 Miscellaneous Notes Left full message on patient VM. Patient has not been seen in over a year. Cannot prescribe a controlled substance if not seen within the last 6 months. Partha Jackson PA-C May 25, 2024 7:36 AM documented in this encounter [facility] 05-25-2024 Telephone encounter Note Patient has not been seen in over a year. Cannot prescribe a controlled substance if not seen within the last 6 months. Partha Jackson PA-C May 25, 2024 7:36 AM [facility] 02-10-2024 Note [facility] 02-02-2024 Note [facility] 12-03-2023 History of Presen t illness Narrative Patient: Joie Lu . : 1955 PCP: Shaikh Maine MD SUBJECTIVE This is a 68 y.o. male that presents today with a CC of elongated, thick nails. Pt states nails have been elongated and thick for many years and cause pain with ambulation in shoegear. Pt has tried previous treatment with minimal relief. Pt presents today for nail care and treatment. Patient is DM2 and has positive history of right below-knee amputation Past Medical History: Past Medical History: Diagnosis Date Allergic rhinitis, mild Arthritis Back pain Bilateral knee pain Chronic pain Chronic pain of left knee Chronic sinusitis of both maxillary sinuses Chronic sinusitis, unspecified location Compression fracture of L1 vertebra (CMS/HCC) COPD (chronic obstructive pulmonary disease) (CMS/HCC) Depression with anxiety Diabetes mellitus (CMS/HCC) Diabetic neuropathy, type II diabetes mellitus (CMS/HCC) Dyslipidemia (CMS/HCC) Ear discomfort, right Hyperkalemia Hyperkalemia Hypertension (CMS/HCC) Hypertension, benign (CMS/HCC) Hyponatremia Hypothyroid (CMS/HCC) Insomnia, persistent 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) Pneumothorax 2009 Recurrent otitis media, bilateral Right otitis media Swelling of right lower extremity Temporary low platelet count ([facility]) Unspecified internal derangement of right knee Medications: Current Outpatient Medications: albuterol HFA (ProAir HFA) 90 mcg/act inhaler, Inhale 2 puffs every 4 (four) hours if needed for shortness of breath, Disp: , Rfl: albuterol HFA 90 mcg/act inhaler, Inhale 2 puffs every 4 (four) hours if needed for wheezing., Disp: , Rfl: amLODIPine (Norvasc) 5 MG tablet, Take 5 mg by mouth., Disp: , Rfl: ascorbic acid (Vitamin C) 500 MG ER capsule, Take 500 mg by mouth 1 (one) time each day at the same time., Disp: , Rfl: aspirin 81 MG EC tablet, Take 81 mg by mouth 1 (one) time each day at the same time., Disp: , Rfl: atorvastatin (Lipitor) 10 MG tablet, TAKE 1 TABLET BY MOUTH BEFORE bedtime, Disp: 100 tablet, Rfl: 0 busPIRone (Buspar) 30 MG tablet, TAKE 1 TABLET BY MOUTH EVERY 12 HOURS, Disp: 200 tablet, Rfl: 0 BUSPIRONE HCL PO, Take 50 mg by mouth in the morning., Disp: , Rfl: cyclobenzaprine (Flexeril) 10 MG tablet, TAKE 1 TABLET BY MOUTH THREE TIMES DAILY, Disp: 90 tablet, Rfl: 0 doxycycline (Vibramycin) 100 MG capsule, Take 100 mg by mouth in the morning and 100 mg before bedtime., Disp: , Rfl: fluticasone (Flonase) 50 MCG/ACT nasal spray, instill 2 (TWO) sprays IN EACH NOSTRIL DAILY, Disp: 16 g, Rfl: 0 Fluticasone Furoate-Vilanterol (Breo Ellipta) 100-25 MCG/ACT aerosol powder , Inhale., Disp: , Rfl: Fluticasone Furoate-Vilanterol (Breo Ellipta) 100-25 MCG/ACT aerosol powder , Inhale 1 puff 1 (one) time each day at the same time, Disp: , Rfl: gabapentin (Neurontin) 300 MG capsule, Take 2 capsules (600 mg) by mouth in the morning and 2 capsules (600 mg) in the evening and 2 capsules (600 mg) before bedtime., Disp: 180 capsule, Rfl: 2 glimepiride (Amaryl) 4 MG tablet, TAKE 1 TABLET BY MOUTH EVERY 12 HOURS, Disp: 180 tablet, Rfl: 0 hydrOXYzine HCl (Atarax) 50 MG tablet, TAKE 1 TABLET BY MOUTH THREE TIMES DAILY NEEDED FOR ANXIETY, Disp: 270 tablet, Rfl: 0 Lancets Ultra Fine misc, , Disp: , Rfl: levothyroxine (Synthroid, Levoxyl) 125 MCG tablet, TAKE 1 TABLET BY MOUTH DAILY, Disp: 30 tablet, Rfl: 0 Lidocaine 3 % cream, Apply topically., Disp: , Rfl: lisinopril 20 MG tablet, TAKE 1 TABLET BY MOUTH DAILY, Disp: 100 tablet, Rfl: 0 loratadine (Claritin) 10 MG tablet, Take by mouth., Disp: , Rfl: meloxicam (Mobic) 7.5 MG tablet, TAKE 1 TABLET BY MOUTH DAILY, Disp: 90 tablet, Rfl: 0 metFORMIN (Glucophage) 850 MG tablet, Take 1 tablet (850 mg) by mouth in the morning and 1 tablet (850 mg) in the evening. Take with meals., Disp: 180 tablet, Rfl: 1 prazosin (Minipress) 1 MG capsule, Take 1 mg by mouth at bedtime., Disp: , Rfl: tiotropium (Spiriva Respimat) 1.25 MCG/ACT inhaler, Inhale 2 puffs in the morning., Disp: , Rfl: venlafaxine XR (Effexor XR) 150 MG 24 hr capsule, Take 150 mg by mouth in the morning. Do not crush or chew. ., Disp: , Rfl: Social History: Social History Socioeconomic History Marital status: Spouse name: Not on file Number of children: Not on file Years of education: Not on file Highest education level: Not on file Occupational History Not on file Tobacco Use Smoking status: Never Passive exposure: Past Smokeless tobacco: Never Vaping Use Vaping Use: Never used Substance and Sexual Activity Alcohol use: Never Comment: caffeine: 2-3 cups per day soda Drug use: Never Sexual activity: Defer Other Topics Concern Not on file Social History Narrative Not on file Social Determinants of Health Financial Resource Strain: Not on file Food Insecurity: Not on file Transportation Needs: Not on file Physical Activity: Not on file Stress: Not on file Social Connections: Not on file Intimate Partner Violence: Not on file Housing Stability: Not on file ROS: General: denies fever, chills, fatigue, malaise OBJECTIVE LE EXAM: DERM: Elongated thick yellow crumbly nails digits 1 through 4 left foot. Diminished hair growth with thin shiny atrophic skin bilaterally. Negative dry scaly skin to feet with negative fissures to bilateral heels Left hallux nail bed dry with negative erythema or drainage VASC: Palpable pedal pulses bilaterally NEURO: 5.07 [place] Krystal monofilament test diminished to forefoot bilaterally 125Hz tuning fork diminished to 1st MPJ bilaterally ORTHO: Positive pain on palpation to nails 1 through 4 left foot ASSESSMENT 1. Diabetes mellitus due to underlying condition with diabetic polyneuropathy, with long-term current use of insulin ([facility]) 2. Onychomycosis 3. Toe pain, left PLAN Discussed proper foot care with patient today. Debride nails in length and thickness digits 1 through 4 left foot Patient educated today on proper diabetic foot care including monitoring feet daily for any signs of infection openings in the skin or irregularities to both feet. Patient had a diabetic neurological exam today to both their feet and discussed proper shoe gear. Grant Sheth DPM documented in this encounter [facility] 07-30-2023 Note [facility] 07-21-2023 Note [facility] 06-08-2023 History of Presen t illness Narrative PAT left message with patient regarding not showing for 9am PAT appt. Awaiting response. Message left with Julissa at Dr Mcgowan's office regarding patient not showing up for PAT visit. 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 Please monitor -Sent refill of the Klonopin -Take Tylenol and Ibuprofen for the pain as well -Follow up with Dr. Jenkins as scheduled [facility] History of Present illness Narrative* Partha [...] without magnification and multiple instrumentations requiring physician floor covering printer assistant skills. Postoperative diagnosis: same Partha Jackson PA-C January 27, 2023 7:01 PM Medical Decision Making: Problems: Moderate: 2+ stable chronic illnesses Risk: Moderate: Drug management Medical Decision Making Level: 4 - Moderate [facility] Note* Judy Pacheco Ma - 01/27/2023 11:19 AM EDT Tobacco Use: .5 packs/day, for 1 years. Quit 02/15/1982. Types: Cigarettes Was smoking cessation packet given? N/A - Patient is a non-smoker or quit >1 year ago. 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 Please advise. 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 SECTION OF RHINOLOGY, SINUS AND SKULL BASE SURGERY [facility] [place] [place], [facility] NOTE HPI: Patient is a 67 year old male presenting for evaluation. He reports monthly sinus and ear infection. He has to put earplugs in his ear when taking a shower because when water gets in the ear, the infection starts. He c/o ear pressure He c/o congestion, Green mucous when blowing nose, pressure, and facial pressure. He has not seen an beer cooler. Sinus issues has been going on since [...] HAND SURGERY HX Left LAMINECTOMY W/O FFD 10/20 VERT SEG LUMBAR 1986 Laminectomy, lumbar PAST [...] Scale 9 Scribe Attestation: By signing below, Saray Rodas attest that this documentation has been prepared in the presence of and under the direction of Dr. Nicholas Jenkins M.D. Provider Attestation: I, Dr.Mohamad Jenkins, personally performed the services described in this documentation. All medical record entries made by the scribe/resident/fellow were at my direction and in my presence. I have reviewed the chart and agree that the record reflects my personal performanceand is accurate and complete. [facility] Instructions* Patient Instructions* Partha Jackson PA-C - 08/19/2022 2:41 PM EDT PLAN: -Recommend appointment with Dr. Nicholas Jenkins MD in [place] for your sinuses [id number] [id number] -Continue with nasal sprays and Claritin -Sent refill of the Klonopin -Follow up in 5.5-6 months with Partha Jackson PA-C -Recommend hearing aids in both ears [facility] History of Present illness Narrative* Partha Jackson PA-C - 08/19/2022 2:30 PM EDT History of Present Illness Mr. 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 The following information above was copied, reviewed and is still up to date. Last seen by Dr. Gifty Ball on 02/27/2022. Since last seen, Reports he [...] Level: 4 - Moderate documented in this [facility]11-01-2022 Nurse Note* Caitlin Mosley MA - 08/19/2022 2:22 PM EDT Tobacco Use: .5 packs/day, for 1 years. Quit 02/15/1982. Types: Cigarettes Was smoking cessation packet given? N/A - Patient is a non-smoker or quit >1 year ago. Was a referral initiated?N/A Patient is a non-smoker [facility] NotePROCEDURE: XR KNEE LT 4V or [...] Electronically authenticated by: JONAH GARCIA Date: 2022-06-19 16:09[facility]05-12-2022 Instructions* Patient Instructions* Partha Jackson PA-C [...] good for 6 months. [facility] History of Present illness Narrative* Gifty Ball MD - 02/27/2022 3:02 PM EDT Images from the original note were not included. Staff Physician Comments: I testify that I personally interviewed and examined the patient. I confirm the below exam findings, assessment and plan were my own and resident/PASTER OPERATOR/scribe was acting as SCRIBE. Hearing unchanged, unimproved It's unclear where his severe ear pain is coming from as it's not happening today and the ear looksvery healthy. Recommend pt come back to [facility] for assessment next time this flares so we can see if its otologic or not. Gifty Ball MD, FACS Section Head, Otology/Neurotology/Skull Base Surgery Choker Setter, Cochlear Implant Program [facility] [place] [place] [facility] History of Present Illness Mr. JOIE [...] 1. Follow up every 5-6 months continue Klonopin 2. Medically cleared for hearing aids, bilaterally. [...] 1 Independent interpretation of test from other physician/QHCP Medical Decision Making Level: 4 - Moderate [facility] Nurse Note* Judy Pacheco Ma - 02/27/2022 2:58 PM EDT Tobacco Use: .5 packs/day, for 1 years. Quit 02/15/1982. Types: Cigarettes Was smoking cessation packet given? N/A - Patient is a non-smoker or quit >1 year ago. Was a referral initiated?N/A Patient is a non-smoker [facility] History of Present illness Narrative* Shikha Costa, AUD - 02/27/2022 2:00 PM EDT [facility] [place] [place] AUDIOLOGIC EVALUATION REPORT Name: Joie Lu JR [facility]#: [id number] Date of Service: 02/27/2022 Date of : 1955 Age: [age] year old Referred by: Regan Ortega MD ([facility]) [facility] [id number] Referred for: Evaluation of suspected change in hearing, tinnitus, or balance. Referral documented: In an order in [facility] Joie Lu JR was seen for a recheck audiologic evaluation prior to consultation with Otology (Dr. Ball). Recall that history is significant for mixed hearing loss in the right ear and prior ear surgeries (right ossicular chain reconstruction and TORP prosthesis 11/03/2019 and s/p revision right tympanoplasty and ossicular chain reconstruction with prothesis on 07/15/2021 by Gifty Ball MD). Previous audiologic testing was completed on [...] right greater than left hearing loss. See [facility] Audiogram for additional reported history and [...] PLAN: * Continue medical follow-up with Gifty Ball MD. * Consider pursuing appropriate amplification pending medical clearance. Patient was advised to contact his insurance to determine if he has a hearing aid benefit. Should patient wish to pursue amplification at [facility], call [phone] to schedule a hearing aid evaluation appointment. * Re-evaluation as medically indicated, or sooner, if a change in hearing is noted. I verify that I have reviewed the history, test results, and interpretation for this patient. Neri Glover, MEL/A Clinical Assistant [employer] HINOJOSA Abbrev- iation Definition Degree of hearing sensitivity dB range WNL within normal limits WNL 0 - 20 SNHL sensorineural hearing loss Mild 20-40 CHL conductive hearing loss Moderate 40-55 MHL mixed hearing loss Moderately-Severe 55-70 WRS word recognition score Severe 70-90 ME middle ear Profound 90 + TM tympanic membrane [facility] M[facility] Notes* Telephone Encounter - Partha [...] appointment on February [address] Gifty Ball. Partha Jackson PA-C February 12, 2022 5:51 PM * Telephone Encounter - Natalie Motta Deborah Jackson C. [facility] - 02/12/2022 1:05 PM EDT Pt contacted the office again with the request for pain medication...patient mentioned that he reached out to PCP who refused to prescribe until seen on 02/27/2022. Pt is having difficulty sleeping at night Electronically signed by Natalie Cabrera Jackson C. [facility] at 02/12/2022 1:07 PM EDT * Telephone Encounter - Carin Freeman [facility] Asst - 02/11/2022 3:02 PM EDT Patient has [...] something to take the sharp aches away. [facility] is perferred pharmacy Thanks Carin Freeman [facility] Miscellaneous Notes* Telephone Encounter - Carin Freeman [facility] Asst - 02/06/2022 11:52 AM EDT Patient is calling for a refill on the clonazePAM (KLONOPIN) 1 mg tablet. 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) [employer] Other 09-24-2012 History of Past illness Narrative* [...] of this encounter (statuses as of 02/06/2022) [facility] Narrative* Problem [...] of this encounter (statuses as of 02/12/2022) [facility] Narrative* Problem [...] of this encounter (statuses as of 02/27/2022) [facility] N[facility]ative* Problem [...] of this encounter (statuses as of 02/28/2022) [facility] N[facility]ative* Problem [...] of this encounter (statuses as of 09/17/2022) [facility]* Problem [...] of this encounter (statuses as of 10/31/2022) [facility] N[facility]* Problem [...] of this encounter (statuses as of 11/10/2022) [facility] N[facility]* Problem [...] of this encounter (statuses as of 01/28/2023) [facility] N[facility]* Problem [...] of this encounter (statuses as of 05/29/2023) [facility] Narrative* Problem [...] of this encounter (statuses as of 06/02/2023) [facility] No data available for this [facility] 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 Other specified hearing loss, unspecified ear [facility] Diagnosis Otalgia, right- Primary Other specified hearing loss, unspecified ear documented in this encounter [facility] note* Diagnosis Mixed conductive and sensorineural hearing loss of right ear with restricted hearing of left ear- Primary Sensorineural hearing loss (SNHL) of left ear with restricted hearing of right ear documented in this encounter [facility] note* Diagnosis Mixed conductive and sensorineural hearing loss of right ear with restricted hearing of left ear- Primary 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 Status post tympanoplasty Other postprocedural status Impacted cerumen of left ear Impacted cerumen documented in this encounter [facility] noteNo [employer] Other Evaluation note* Diagnosis 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- Primary Mixed conductive and sensorineural hearing loss of right ear with restricted hearing of left ear Status post tympanoplasty Other postprocedural status Acute recurrent frontal sinusitis Acute frontal sinusitis documented in this encounter [facility] note* Diagnosis Acute recurrent frontal sinusitis Acute frontal sinusitis Other chronic sinusitis documented in this encounter [facility] note* Diagnosis 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- Primary Fluid level behind tympanic membrane of right ear Mixed conductive and sensorineural hearing loss of right ear with restricted hearing of left ear Status post tympanoplasty Other postprocedural status Impacted cerumen of left ear Impacted cerumen documented in this encounter [facility] noteNo assessment information [facility] Work Phone: Evaluation note* Diagnosis Mixed conductive and sensorineural hearing loss of right ear with restricted hearing of left ear documented in this encounter [facility] note* Diagnosis 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 documented in this encounter [facility] note* Diagnosis 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 resistant Staphylococcus aureus Encounter for preprocedural laboratory examination Pre-procedural laboratory examination Right knee pain, unspecified chronicity documented in this encounter [facility]* Diagnosis Hypothyroidism, unspecified (CMS/HCC) Acute pain of left knee Hyperlipidemia, unspecified hyperlipidemia type (CMS/HCC) Acute upper respiratory infection, unspecified Low back pain, unspecified Other specified anxiety disorders Essential hypertension (CMS/HCC) Unspecified essential hypertension [facility] Diagnosis Diabetes mellitus due to underlying condition with diabetic polyneuropathy, with long-term current use of insulin (CMS/HCC)- Primary Onychomycosis Dermatophytosis of nail Toe pain, left Pain in soft tissues of limb documented in this [facility]* Diagnosis 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 [facility] Diagnosis 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 [facility] Diagnosis Pre-operative clearance- Primary Preoperative examination, unspecified Mixed conductive and sensorineural hearing loss of right ear with restricted hearing of left ear Sensorineural hearing loss (SNHL) of left ear with restricted hearing of right ear Pulmonary nodule Solitary pulmonary nodule DVT prophylaxis Long-term (current) use of anticoagulants Type 2 diabetes mellitus with diabetic neuropathy, without long-term current use of insulin (HCC) Essential hypertension Unspecified essential hypertension Hyperlipidemia, unspecified hyperlipidemia type Hypothyroidism, unspecified type Chronic obstructive pulmonary disease, unspecified COPD type (HCC) Chronic back pain, unspecified back location, unspecified back pain laterality Depressive disorder Depressive disorder, not elsewhere classified Obesity, unspecified classification, unspecified obesity type, unspecified whether serious comorbidity present Anxiety Anxiety state, unspecified Pre-op evaluation- Primary Preoperative examination, unspecified Mixed conductive and sensorineural hearing loss of right ear with restricted hearing of left ear Chronic obstructive pulmonary disease, unspecified COPD type (HCC) Primary hypertension Unspecified essential hypertension Type 2 diabetes mellitus with diabetic neuropathy, without long-term current use of insulin (HCC) Pyogenic arthritis of left knee joint, due to unspecified organism ([facility])- Primary [facility] Diagnosis Acute upper respiratory infection, unspecified documented in [facility]* Diagnosis Pre-operative clearance- Primary Preoperative examination, unspecified Mixed conductive and sensorineural hearing loss of right ear with restricted hearing of left ear Sensorineural hearing loss (SNHL) of left ear with restricted hearing of right ear Pulmonary nodule Solitary pulmonary nodule DVT prophylaxis Long-term (current) use of anticoagulants Type 2 diabetes mellitus with diabetic neuropathy, without long-term current use of insulin (HCC) Essential hypertension Unspecified essential hypertension Hyperlipidemia, unspecified hyperlipidemia type Hypothyroidism, unspecified type Chronic obstructive pulmonary disease, unspecified COPD type (HCC) Chronic back pain, unspecified back location, unspecified back pain laterality Depressive disorder Depressive disorder, not elsewhere classified Obesity, unspecified classification, unspecified obesity type, unspecified whether serious comorbidity present Anxiety Anxiety state, unspecified Pre-op evaluation- Primary Preoperative examination, unspecified Mixed conductive and sensorineural hearing loss of right ear with restricted hearing of left ear Chronic obstructive pulmonary disease, unspecified COPD type (HCC) Primary hypertension Unspecified essential hypertension Type 2 diabetes mellitus with diabetic neuropathy, without long-term current use of insulin (HCC) Prosthetic joint infection, sequela- Primary [facility]* Diagnosis Pre-operative clearance- Primary Preoperative examination, unspecified Mixed conductive and sensorineural hearing loss of right ear with restricted hearing of left ear Sensorineural hearing loss (SNHL) of left ear with restricted hearing of right ear Pulmonary nodule Solitary pulmonary nodule DVT prophylaxis Long-term (current) use of anticoagulants Type 2 diabetes mellitus with diabetic neuropathy, without long-term current use of insulin (HCC) Essential hypertension Unspecified essential hypertension Hyperlipidemia, unspecified hyperlipidemia type Hypothyroidism, unspecified type Chronic obstructive pulmonary disease, unspecified COPD type (HCC) Chronic back pain, unspecified back location, unspecified back pain laterality Depressive disorder Depressive disorder, not elsewhere classified Obesity, unspecified classification, unspecified obesity type, unspecified whether serious comorbidity present Anxiety Anxiety state, unspecified Pre-op evaluation- Primary Preoperative examination, unspecified Mixed conductive and sensorineural hearing loss of right ear with restricted hearing of left ear Chronic obstructive pulmonary disease, unspecified COPD type (HCC) Primary hypertension Unspecified essential hypertension Type 2 diabetes mellitus with diabetic neuropathy, without long-term current use of insulin (HCC) Pyogenic arthritis of left knee joint, due to unspecified organism (HCC) documented [facility]* Diagnosis Type 2 diabetes mellitus with diabetic neuropathy, without long-term current use of insulin (CMS/HCC)- Primary Essential hypertension (CMS/HCC) Unspecified essential hypertension Chronic pain of right knee Hypothyroidism, unspecified type (CMS/HCC) Generalized anxiety disorder (CMS/HCC) Generalized anxiety disorder Hyperlipidemia, unspecified hyperlipidemia type (CMS/HCC) Acute pain of left knee- Primary Chronic pain of right knee COPD with exacerbation (CMS/HCC)- Primary Type 2 diabetes mellitus with diabetic neuropathy, without long-term current use of insulin ([facility]) Medicare annual wellness visit, subsequent Injury of left knee, initial encounter- Primary Fall, initial encounter Primary localized osteoarthrosis of multiple sites Primary localized osteoarthrosis, other specified sites Chronic pain of both knees- Primary Type 2 diabetes mellitus with diabetic neuropathy, unspecified (CMS/[facility]) Essential (primary) hypertension (CMS/HCC) Unspecified essential hypertension Anxiety disorder, unspecified Hyperlipidemia, unspecified hyperlipidemia type (CMS/[facility]) Hypothyroidism, unspecified (CMS/HCC) Essential hypertension (CMS/HCC) Unspecified essential hypertension Other specified anxiety disorders Type 2 diabetes mellitus with diabetic neuropathy, without long-term current use of insulin ([facility]) Chronic obstructive pulmonary disease with acute exacerbation ([facility]) Diabetic neuropathy, painful (CMS/[facility])- Primary Type II or unspecified type diabetes mellitus with neurological manifestations, not stated as uncontrolled Type 2 diabetes mellitus with diabetic neuropathy, unspecified (CMS/[facility]) COPD with exacerbation (CMS/[facility]) Essential (primary) hypertension ([facility]) Unspecified essential hypertension Class 2 obesity without serious comorbidity with body mass index (BMI) of 39.0 to 39.9 in adult, unspecified obesity type Lumbar spondylosis Lumbosacral spondylosis without myelopathy Acute pain of right shoulder Knee pain, unspecified chronicity, unspecified laterality Mixed hyperlipidemia ([facility]) Mixed hyperlipidemia [facility]* Diagnosis Type 2 diabetes mellitus with diabetic neuropathy, without long-term current use of insulin ([facility])- Primary Essential hypertension (CMS/HCC) Unspecified essential hypertension Chronic pain of right knee Hypothyroidism, unspecified type (CMS/HCC) Generalized anxiety disorder (CMS/[facility]) Generalized anxiety disorder Hyperlipidemia, unspecified hyperlipidemia type (CMS/HCC) Acute pain of left knee- Primary Chronic pain of right knee COPD with exacerbation ([facility])- Primary Type 2 diabetes mellitus with diabetic neuropathy, without long-term current use of insulin ([facility]) Medicare annual wellness visit, subsequent Injury of left knee, initial encounter- Primary Fall, initial encounter Primary localized osteoarthrosis of multiple sites Primary localized osteoarthrosis, other specified sites Chronic pain of both knees- Primary Type 2 diabetes mellitus with diabetic neuropathy, unspecified (CMS/[facility]) Essential (primary) hypertension ([facility]/HCC) Unspecified essential hypertension Anxiety disorder, unspecified Hyperlipidemia, unspecified hyperlipidemia type (CMS/[facility]) Hypothyroidism, unspecified (CMS/[facility]) Essential hypertension (CMS/HCC) Unspecified essential hypertension Other specified anxiety disorders Type 2 diabetes mellitus with diabetic neuropathy, without long-term current use of insulin ([facility]) Chronic obstructive pulmonary disease with acute exacerbation (CMS/[facility]) Diabetic neuropathy, painful (CMS/[facility])- Primary Type II or unspecified type diabetes mellitus with neurological manifestations, not stated as uncontrolled Type 2 diabetes mellitus with diabetic neuropathy, unspecified (CMS/[facility]) COPD with exacerbation (CMS/[facility]) Essential (primary) hypertension (CMS/[facility]) Unspecified essential hypertension Class 2 obesity without serious comorbidity with body mass index (BMI) of 39.0 to 39.9 in adult, unspecified obesity type Lumbar spondylosis Lumbosacral spondylosis without myelopathy Acute pain of right shoulder Knee pain, unspecified chronicity, unspecified laterality COPD with exacerbation (CMS/[facility])- Primary Hypothyroidism, unspecified (CMS/[facility]) Essential (primary) hypertension (/[facility]) Unspecified essential hypertension Anemia, unspecified type Type 2 diabetes mellitus with diabetic neuropathy, without long-term current use of insulin ([facility]) Frequent falls S/P total knee arthroplasty, right Primary localized osteoarthrosis of multiple sites Primary localized osteoarthrosis, other specified sites Presence of left artificial knee joint Localized osteoarthritis of right knee Mixed hyperlipidemia ([facility]) Mixed hyperlipidemia documented in [facility]* Diagnosis Type 2 diabetes mellitus with diabetic neuropathy, without long-term current use of insulin ([facility])- Primary Essential hypertension (CMS/[facility]) Unspecified essential hypertension Chronic pain of right knee Hypothyroidism, unspecified type (/[facility]) Generalized anxiety disorder ([facility]) Generalized anxiety disorder Hyperlipidemia, unspecified hyperlipidemia type (/[facility]) Acute pain of left knee- Primary Chronic pain of right knee COPD with exacerbation ([facility])- Primary Type 2 diabetes mellitus with diabetic neuropathy, without long-term current use of insulin ([facility]) Medicare annual wellness visit, subsequent Injury of left knee, initial encounter- Primary Fall, initial encounter Primary localized osteoarthrosis of multiple sites Primary localized osteoarthrosis, other specified sites Chronic pain of both knees- Primary Type 2 diabetes mellitus with diabetic neuropathy, unspecified (CMS/[facility]) Essential (primary) hypertension ([facility]/HCC) Unspecified essential hypertension Anxiety disorder, unspecified Hyperlipidemia, unspecified hyperlipidemia type (CMS/[facility]) Hypothyroidism, unspecified (CMS/[facility]) Essential hypertension (CMS/HCC) Unspecified essential hypertension Other specified anxiety disorders Type 2 diabetes mellitus with diabetic neuropathy, without long-term current use of insulin (CMS/[facility]) Chronic obstructive pulmonary disease with acute exacerbation (CMS/[facility]) Diabetic neuropathy, painful (CMS/[facility])- Primary Type II or unspecified type diabetes mellitus with neurological manifestations, not stated as uncontrolled Type 2 diabetes mellitus with diabetic neuropathy, unspecified (CMS/[facility]) COPD with exacerbation (CMS/[facility]) Essential (primary) hypertension (CMS/[facility]) Unspecified essential hypertension Class 2 obesity without serious comorbidity with body mass index (BMI) of 39.0 to 39.9 in adult, unspecified obesity type Lumbar spondylosis Lumbosacral spondylosis without myelopathy Acute pain of right shoulder Knee pain, unspecified chronicity, unspecified laterality COPD with exacerbation (CMS/[facility])- Primary Hypothyroidism, unspecified (CMS/[facility]) Essential (primary) hypertension ([facility]) Unspecified essential hypertension Anemia, unspecified type Type 2 diabetes mellitus with diabetic neuropathy, without long-term current use of insulin ([facility]) Frequent falls S/P total knee arthroplasty, right Primary localized osteoarthrosis of multiple sites Primary localized osteoarthrosis, other specified sites Presence of left artificial knee joint Localized osteoarthritis of right knee Mixed hyperlipidemia (/[facility]) Mixed hyperlipidemia Type 2 diabetes mellitus with diabetic neuropathy, without long-term current use of insulin (/[facility])- Primary documented [facility]* Diagnosis Type 2 diabetes mellitus with diabetic neuropathy, without long-term current use of insulin ([facility])- Primary Essential hypertension (CMS/[facility]) Unspecified essential hypertension Chronic pain of right knee Hypothyroidism, unspecified type (CMS/[facility]) Generalized anxiety disorder (/[facility]) Generalized anxiety disorder Hyperlipidemia, unspecified hyperlipidemia type (CMS/[facility]) Acute pain of left knee- Primary Chronic pain of right knee COPD with exacerbation (/[facility])- Primary Type 2 diabetes mellitus with diabetic neuropathy, without long-term current use of insulin ([facility]) Medicare annual wellness visit, subsequent Injury of left knee, initial encounter- Primary Fall, initial encounter Primary localized osteoarthrosis of multiple sites Primary localized osteoarthrosis, other specified sites Chronic pain of both knees- Primary Type 2 diabetes mellitus with diabetic neuropathy, unspecified (CMS/HCC) Essential (primary) hypertension (CMS/HCC) Unspecified essential hypertension Anxiety disorder, unspecified Hyperlipidemia, unspecified hyperlipidemia type (CMS/[facility]) Hypothyroidism, unspecified (CMS/HCC) Essential hypertension (CMS/HCC) Unspecified essential hypertension Other specified anxiety disorders Type 2 diabetes mellitus with diabetic neuropathy, without long-term current use of insulin (CMS/[facility]) Chronic obstructive pulmonary disease with acute exacerbation (CMS/[facility]) Diabetic neuropathy, painful (CMS/[facility])- Primary Type II or unspecified type diabetes mellitus with neurological manifestations, not stated as uncontrolled Type 2 diabetes mellitus with diabetic neuropathy, unspecified (CMS/[facility]) COPD with exacerbation (CMS/[facility]) Essential (primary) hypertension (CMS/[facility]) Unspecified essential hypertension Class 2 obesity without serious comorbidity with body mass index (BMI) of 39.0 to 39.9 in adult, unspecified obesity type Lumbar spondylosis Lumbosacral spondylosis without myelopathy Acute pain of right shoulder Knee pain, unspecified chronicity, unspecified laterality COPD with exacerbation (CMS/[facility])- Primary Hypothyroidism, unspecified (CMS/[facility]) Essential (primary) hypertension ([facility]) Unspecified essential hypertension Anemia, unspecified type Type 2 diabetes mellitus with diabetic neuropathy, without long-term current use of insulin ([facility]) Frequent falls S/P total knee arthroplasty, right Primary localized osteoarthrosis of multiple sites Primary localized osteoarthrosis, other specified sites Presence of left artificial knee joint Localized osteoarthritis of right knee Mixed hyperlipidemia (CMS/[facility]) Mixed hyperlipidemia Anemia, unspecified type- Primary documented in this encounter [facility]* Diagnosis Type 2 diabetes mellitus with diabetic neuropathy, without long-term current use of insulin ([facility])- Primary Essential hypertension (CMS/[facility]) Unspecified essential hypertension Chronic pain of right knee Hypothyroidism, unspecified type (CMS/[facility]) Generalized anxiety disorder (CMS/[facility]) Generalized anxiety disorder Hyperlipidemia, unspecified hyperlipidemia type (CMS/[facility]) Acute pain of left knee- Primary Chronic pain of right knee COPD with exacerbation ([facility])- Primary Type 2 diabetes mellitus with diabetic neuropathy, without long-term current use of insulin ([facility]) Medicare annual wellness visit, subsequent Injury of left knee, initial encounter- Primary Fall, initial encounter Primary localized osteoarthrosis of multiple sites Primary localized osteoarthrosis, other specified sites Chronic pain of both knees- Primary Type 2 diabetes mellitus with diabetic neuropathy, unspecified (CMS/HCC) Essential (primary) hypertension (CMS/HCC) Unspecified essential hypertension Anxiety disorder, unspecified Hyperlipidemia, unspecified hyperlipidemia type (CMS/HCC) Hypothyroidism, unspecified (CMS/HCC) Essential hypertension (CMS/HCC) Unspecified essential hypertension Other specified anxiety disorders Type 2 diabetes mellitus with diabetic neuropathy, without long-term current use of insulin (CMS/HCC) Chronic obstructive pulmonary disease with acute exacerbation (CMS/[facility]) Diabetic neuropathy, painful (CMS/[facility])- Primary Type II or unspecified type diabetes mellitus with neurological manifestations, not stated as uncontrolled Type 2 diabetes mellitus with diabetic neuropathy, unspecified (CMS/HCC) COPD with exacerbation (CMS/HCC) Essential (primary) hypertension (CMS/HCC) Unspecified essential hypertension Class 2 obesity without serious comorbidity with body mass index (BMI) of 39.0 to 39.9 in adult, unspecified obesity type Lumbar spondylosis Lumbosacral spondylosis without myelopathy Acute pain of right shoulder Knee pain, unspecified chronicity, unspecified laterality COPD with exacerbation (CMS/HCC)- Primary Hypothyroidism, unspecified (CMS/HCC) Essential (primary) hypertension (CMS/HCC) Unspecified essential hypertension Anemia, unspecified type Type 2 diabetes mellitus with diabetic neuropathy, without long-term current use of insulin (CMS/[facility]) Frequent falls S/P total knee arthroplasty, right Primary localized osteoarthrosis of multiple sites Primary localized osteoarthrosis, other specified sites Presence of left artificial knee joint Localized osteoarthritis of right knee Mixed hyperlipidemia (CMS/HCC) Mixed hyperlipidemia Lumbar spondylosis Lumbosacral spondylosis without myelopathy Acute pain of right shoulder Knee pain, unspecified chronicity, unspecified laterality documented in this encounter [facility]* Diagnosis Type 2 diabetes mellitus with diabetic neuropathy, without long-term current use of insulin (CMS/HCC)- Primary Essential hypertension (CMS/HCC) Unspecified essential hypertension Chronic pain of right knee Hypothyroidism, unspecified type (CMS/HCC) Generalized anxiety disorder (CMS/HCC) Generalized anxiety disorder Hyperlipidemia, unspecified hyperlipidemia type (CMS/HCC) Acute pain of left knee- Primary Chronic pain of right knee COPD with exacerbation (CMS/[facility])- Primary Type 2 diabetes mellitus with diabetic neuropathy, without long-term current use of insulin (CMS/[facility]) Medicare annual wellness visit, subsequent Injury of left knee, initial encounter- Primary Fall, initial encounter Primary localized osteoarthrosis of multiple sites Primary localized osteoarthrosis, other specified sites Chronic pain of both knees- Primary Type 2 diabetes mellitus with diabetic neuropathy, unspecified (CMS/HCC) Essential (primary) hypertension (CMS/HCC) Unspecified essential hypertension Anxiety disorder, unspecified Hyperlipidemia, unspecified hyperlipidemia type (CMS/HCC) Hypothyroidism, unspecified (CMS/HCC) Essential hypertension (CMS/HCC) Unspecified essential hypertension Other specified anxiety disorders Type 2 diabetes mellitus with diabetic neuropathy, without long-term current use of insulin (CMS/[facility]) Chronic obstructive pulmonary disease with acute exacerbation (CMS/HCC) Diabetic neuropathy, painful (CMS/HCC)- Primary Type II or unspecified type diabetes mellitus with neurological manifestations, not stated as uncontrolled Type 2 diabetes mellitus with diabetic neuropathy, unspecified (CMS/HCC) COPD with exacerbation (CMS/HCC) Essential (primary) hypertension (CMS/HCC) Unspecified essential hypertension Class 2 obesity without serious comorbidity with body mass index (BMI) of 39.0 to 39.9 in adult, unspecified obesity type Lumbar spondylosis Lumbosacral spondylosis without myelopathy Acute pain of right shoulder Knee pain, unspecified chronicity, unspecified laterality COPD with exacerbation (CMS/HCC)- Primary Hypothyroidism, unspecified (CMS/HCC) Essential (primary) hypertension (CMS/HCC) Unspecified essential hypertension Anemia, unspecified type Type 2 diabetes mellitus with diabetic neuropathy, without long-term current use of insulin (/HCC) Frequent falls S/P total knee arthroplasty, right Primary localized osteoarthrosis of multiple sites Primary localized osteoarthrosis, other specified sites Presence of left artificial knee joint Localized osteoarthritis of right knee Mixed hyperlipidemia (CMS/[facility]) Mixed hyperlipidemia Difficulty walking- Primary Difficulty in walking Chronic pain of both knees Weakness of both lower extremities documented in this encounter [facility]* Diagnosis Type 2 diabetes mellitus with diabetic neuropathy, without long-term current use of insulin (CMS/HCC)- Primary Essential hypertension (CMS/HCC) Unspecified essential hypertension Chronic pain of right knee Hypothyroidism, unspecified type (CMS/HCC) Generalized anxiety disorder (CMS/HCC) Generalized anxiety disorder Hyperlipidemia, unspecified hyperlipidemia type (CMS/HCC) Acute pain of left knee- Primary Chronic pain of right knee COPD with exacerbation (CMS/HCC)- Primary Type 2 diabetes mellitus with diabetic neuropathy, without long-term current use of insulin (/HCC) Medicare annual wellness visit, subsequent Injury of left knee, initial encounter- Primary Fall, initial encounter Primary localized osteoarthrosis of multiple sites Primary localized osteoarthrosis, other specified sites Chronic pain of both knees- Primary Type 2 diabetes mellitus with diabetic neuropathy, unspecified (CMS/HCC) Essential (primary) hypertension (CMS/HCC) Unspecified essential hypertension Anxiety disorder, unspecified Hyperlipidemia, unspecified hyperlipidemia type (CMS/HCC) Hypothyroidism, unspecified (CMS/HCC) Essential hypertension (CMS/HCC) Unspecified essential hypertension Other specified anxiety disorders Type 2 diabetes mellitus with diabetic neuropathy, without long-term current use of insulin (CMS/HCC) Chronic obstructive pulmonary disease with acute exacerbation (CMS/HCC) Diabetic neuropathy, painful (CMS/HCC)- Primary Type II or unspecified type diabetes mellitus with neurological manifestations, not stated as uncontrolled Type 2 diabetes mellitus with diabetic neuropathy, unspecified (CMS/HCC) COPD with exacerbation (CMS/HCC) Essential (primary) hypertension (CMS/HCC) Unspecified essential hypertension Class 2 obesity without serious comorbidity with body mass index (BMI) of 39.0 to 39.9 in adult, unspecified obesity type Lumbar spondylosis Lumbosacral spondylosis without myelopathy Acute pain of right shoulder Knee pain, unspecified chronicity, unspecified laterality COPD with exacerbation (CMS/HCC)- Primary Hypothyroidism, unspecified (CMS/HCC) Essential (primary) hypertension (CMS/HCC) Unspecified essential hypertension Anemia, unspecified type Type 2 diabetes mellitus with diabetic neuropathy, without long-term current use of insulin (CMS/HCC) Frequent falls S/P total knee arthroplasty, right Primary localized osteoarthrosis of multiple sites Primary localized osteoarthrosis, other specified sites Presence of left artificial knee joint Localized osteoarthritis of right knee Mixed hyperlipidemia (CMS/HCC) Mixed hyperlipidemia Frequent falls S/P total knee arthroplasty, right Primary localized osteoarthrosis of multiple sites Primary localized osteoarthrosis, other specified sites Presence of left artificial knee joint Localized osteoarthritis of right knee Diabetes mellitus due to underlying condition with diabetic polyneuropathy, with long-term current use of insulin (CMS/HCC)- Primary Pain due to onychomycosis of toenails of both feet documented in this encounter [facility]* Diagnosis Type 2 diabetes mellitus with diabetic neuropathy, without long-term current use of insulin (CMS/HCC)- Primary Essential hypertension (CMS/HCC) Unspecified essential hypertension Chronic pain of right knee Hypothyroidism, unspecified type (CMS/HCC) Generalized anxiety disorder ([facility]) Generalized anxiety disorder Hyperlipidemia, unspecified hyperlipidemia type ([facility]) Acute pain of left knee- Primary Chronic pain of right knee COPD with exacerbation ([facility])- Primary Type 2 diabetes mellitus with diabetic neuropathy, without long-term current use of insulin ([facility]) Medicare annual wellness visit, subsequent Injury of left knee, initial encounter- Primary Fall, initial encounter Primary localized osteoarthrosis of multiple sites Primary localized osteoarthrosis, other specified sites Chronic pain of both knees- Primary Type 2 diabetes mellitus with diabetic neuropathy, unspecified (CMS/[facility]) Essential (primary) hypertension ([facility]) Unspecified essential hypertension Anxiety disorder, unspecified Hyperlipidemia, unspecified hyperlipidemia type ([facility]) Hypothyroidism, unspecified ([facility]) Essential hypertension ([facility]) Unspecified essential hypertension Other specified anxiety disorders Type 2 diabetes mellitus with diabetic neuropathy, without long-term current use of insulin ([facility]) Chronic obstructive pulmonary disease with acute exacerbation ([facility]) Diabetic neuropathy, painful ([facility])- Primary Type II or unspecified type diabetes mellitus with neurological manifestations, not stated as uncontrolled Type 2 diabetes mellitus with diabetic neuropathy, unspecified (CMS/[facility]) COPD with exacerbation ([facility]) Essential (primary) hypertension ([facility]) Unspecified essential hypertension Class 2 obesity without serious comorbidity with body mass index (BMI) of 39.0 to 39.9 in adult, unspecified obesity type Lumbar spondylosis Lumbosacral spondylosis without myelopathy Acute pain of right shoulder Knee pain, unspecified chronicity, unspecified laterality COPD with exacerbation ([facility])- Primary Hypothyroidism, unspecified ([facility]) Essential (primary) hypertension ([facility]) Unspecified essential hypertension Anemia, unspecified type Type 2 diabetes mellitus with diabetic neuropathy, without long-term current use of insulin ([facility]) Frequent falls S/P total knee arthroplasty, right Primary localized osteoarthrosis of multiple sites Primary localized osteoarthrosis, other specified sites Presence of left artificial knee joint Localized osteoarthritis of right knee Mixed hyperlipidemia ([facility]) Mixed hyperlipidemia Diabetes mellitus due to underlying condition with diabetic polyneuropathy, with long-term current use of insulin ([facility])- Primary Onychomycosis Dermatophytosis of nail Toe pain, left Pain in soft tissues of limb documented in this encounter [facility]* Diagnosis Type 2 diabetes mellitus with diabetic neuropathy, without long-term current use of insulin (CMS/[facility])- Primary Essential hypertension (CMS/HCC) Unspecified essential hypertension Chronic pain of right knee Hypothyroidism, unspecified type (CMS/HCC) Generalized anxiety disorder (CMS/HCC) Generalized anxiety disorder Hyperlipidemia, unspecified hyperlipidemia type (CMS/HCC) Acute pain of left knee- Primary Chronic pain of right knee COPD with exacerbation (CMS/HCC)- Primary Type 2 diabetes mellitus with diabetic neuropathy, without long-term current use of insulin ([facility]) Medicare annual wellness visit, subsequent Injury of left knee, initial encounter- Primary Fall, initial encounter Primary localized osteoarthrosis of multiple sites Primary localized osteoarthrosis, other specified sites Chronic pain of both knees- Primary Type 2 diabetes mellitus with diabetic neuropathy, unspecified (CMS/HCC) Essential (primary) hypertension (CMS/HCC) Unspecified essential hypertension Anxiety disorder, unspecified Hyperlipidemia, unspecified hyperlipidemia type (CMS/HCC) Hypothyroidism, unspecified (CMS/HCC) Essential hypertension (CMS/HCC) Unspecified essential hypertension Other specified anxiety disorders Type 2 diabetes mellitus with diabetic neuropathy, without long-term current use of insulin ([facility]) Chronic obstructive pulmonary disease with acute exacerbation (CMS/[facility]) Diabetic neuropathy, painful (CMS/[facility])- Primary Type II or unspecified type diabetes mellitus with neurological manifestations, not stated as uncontrolled Type 2 diabetes mellitus with diabetic neuropathy, unspecified (CMS/HCC) COPD with exacerbation (CMS/HCC) Essential (primary) hypertension (CMS/HCC) Unspecified essential hypertension Class 2 obesity without serious comorbidity with body mass index (BMI) of 39.0 to 39.9 in adult, unspecified obesity type Lumbar spondylosis Lumbosacral spondylosis without myelopathy Acute pain of right shoulder Knee pain, unspecified chronicity, unspecified laterality COPD with exacerbation (CMS/HCC)- Primary Hypothyroidism, unspecified (CMS/HCC) Essential (primary) hypertension (CMS/HCC) Unspecified essential hypertension Anemia, unspecified type Type 2 diabetes mellitus with diabetic neuropathy, without long-term current use of insulin (CMS/[facility]) Frequent falls S/P total knee arthroplasty, right Primary localized osteoarthrosis of multiple sites Primary localized osteoarthrosis, other specified sites Presence of left artificial knee joint Localized osteoarthritis of right knee Mixed hyperlipidemia (CMS/HCC) Mixed hyperlipidemia Acute upper respiratory infection, unspecified documented in this encounter [facility]* Diagnosis Type 2 diabetes mellitus with diabetic neuropathy, without long-term current use of insulin ([facility])- Primary Essential hypertension (CMS/[facility]) Unspecified essential hypertension Chronic pain of right knee Hypothyroidism, unspecified type (CMS/[facility]) Generalized anxiety disorder ([facility]) Generalized anxiety disorder Hyperlipidemia, unspecified hyperlipidemia type (CMS/[facility]) Acute pain of left knee- Primary Chronic pain of right knee COPD with exacerbation ([facility])- Primary Type 2 diabetes mellitus with diabetic neuropathy, without long-term current use of insulin ([facility]) Medicare annual wellness visit, subsequent Injury of left knee, initial encounter- Primary Fall, initial encounter Primary localized osteoarthrosis of multiple sites Primary localized osteoarthrosis, other specified sites Chronic pain of both knees- Primary Type 2 diabetes mellitus with diabetic neuropathy, unspecified (CMS/[facility]) Essential (primary) hypertension ([facility]) Unspecified essential hypertension Anxiety disorder, unspecified Hyperlipidemia, unspecified hyperlipidemia type (/[facility]) Hypothyroidism, unspecified (/[facility]) Essential hypertension ([facility]) Unspecified essential hypertension Other specified anxiety disorders Type 2 diabetes mellitus with diabetic neuropathy, without long-term current use of insulin ([facility]) Chronic obstructive pulmonary disease with acute exacerbation ([facility]) Diabetic neuropathy, painful ([facility])- Primary Type II or unspecified type diabetes mellitus with neurological manifestations, not stated as uncontrolled Type 2 diabetes mellitus with diabetic neuropathy, unspecified (CMS/[facility]) COPD with exacerbation ([facility]) Essential (primary) hypertension ([facility]) Unspecified essential hypertension Class 2 obesity without serious comorbidity with body mass index (BMI) of 39.0 to 39.9 in adult, unspecified obesity type Lumbar spondylosis Lumbosacral spondylosis without myelopathy Acute pain of right shoulder Knee pain, unspecified chronicity, unspecified laterality COPD with exacerbation (CMS/[facility])- Primary Hypothyroidism, unspecified (CMS/[facility]) Essential (primary) hypertension ([facility]/HCC) Unspecified essential hypertension Anemia, unspecified type Type 2 diabetes mellitus with diabetic neuropathy, without long-term current use of insulin ([facility]) Frequent falls S/P total knee arthroplasty, right Primary localized osteoarthrosis of multiple sites Primary localized osteoarthrosis, other specified sites Presence of left artificial knee joint Localized osteoarthritis of right knee Mixed hyperlipidemia (CMS/[facility]) Mixed hyperlipidemia Need for immunization against influenza- Primary Need for prophylactic vaccination and inoculation against influenza Type 2 diabetes mellitus with diabetic neuropathy, without long-term current use of insulin (CMS/HCC) Essential (primary) hypertension (CMS/HCC) Unspecified essential hypertension COPD with exacerbation (CMS/HCC) Mixed hyperlipidemia (CMS/HCC) Mixed hyperlipidemia Lumbar spondylosis Lumbosacral spondylosis without myelopathy Acute pain of right shoulder Knee pain, unspecified chronicity, unspecified laterality documented in this encounter [facility]Evaluation [facility]* Diagnosis Type 2 diabetes mellitus with diabetic neuropathy, without long-term current use of insulin (CMS/HCC)- Primary Essential hypertension (CMS/HCC) Unspecified essential hypertension Chronic pain of right knee Hypothyroidism, unspecified type (CMS/HCC) Generalized anxiety disorder (CMS/HCC) Generalized anxiety disorder Hyperlipidemia, unspecified hyperlipidemia type (CMS/HCC) Acute pain of left knee- Primary Chronic pain of right knee COPD with exacerbation (CMS/HCC)- Primary Type 2 diabetes mellitus with diabetic neuropathy, without long-term current use of insulin (/HCC) Medicare annual wellness visit, subsequent Injury of left knee, initial encounter- Primary Fall, initial encounter Primary localized osteoarthrosis of multiple sites Primary localized osteoarthrosis, other specified sites Chronic pain of both knees- Primary Type 2 diabetes mellitus with diabetic neuropathy, unspecified (CMS/HCC) Essential (primary) hypertension (CMS/HCC) Unspecified essential hypertension Anxiety disorder, unspecified Hyperlipidemia, unspecified hyperlipidemia type (CMS/HCC) Hypothyroidism, unspecified (CMS/HCC) Essential hypertension (CMS/HCC) Unspecified essential hypertension Other specified anxiety disorders Type 2 diabetes mellitus with diabetic neuropathy, without long-term current use of insulin (/HCC) Chronic obstructive pulmonary disease with acute exacerbation (CMS/HCC) Diabetic neuropathy, painful (CMS/HCC)- Primary Type II or unspecified type diabetes mellitus with neurological manifestations, not stated as uncontrolled Type 2 diabetes mellitus with diabetic neuropathy, unspecified (CMS/HCC) COPD with exacerbation (CMS/HCC) Essential (primary) hypertension (CMS/HCC) Unspecified essential hypertension Class 2 obesity without serious comorbidity with body mass index (BMI) of 39.0 to 39.9 in adult, unspecified obesity type Lumbar spondylosis Lumbosacral spondylosis without myelopathy Acute pain of right shoulder Knee pain, unspecified chronicity, unspecified laterality COPD with exacerbation (CMS/HCC)- Primary Hypothyroidism, unspecified (CMS/HCC) Essential (primary) hypertension (CMS/HCC) Unspecified essential hypertension Anemia, unspecified type Type 2 diabetes mellitus with diabetic neuropathy, without long-term current use of insulin ([facility]) Frequent falls S/P total knee arthroplasty, right Primary localized osteoarthrosis of multiple sites Primary localized osteoarthrosis, other specified sites Presence of left artificial knee joint Localized osteoarthritis of right knee Mixed hyperlipidemia ([facility]) Mixed hyperlipidemia Need for immunization against influenza- Primary Need for prophylactic vaccination and inoculation against influenza Type 2 diabetes mellitus with diabetic neuropathy, without long-term current use of insulin ([facility]) Essential (primary) hypertension ([facility]) Unspecified essential hypertension COPD with exacerbation ([facility] Mixed hyperlipidemia [facility] [facility]) Mixed hyperlipidemia Lumbar spondylosis Lumbosacral spondylosis without myelopathy Acute pain of right shoulder Knee pain, unspecified chronicity, unspecified laterality Lumbar spondylosis Lumbosacral spondylosis without myelopathy Acute pain of right shoulder Knee pain, unspecified chronicity, unspecified laterality documented in this encounter [facility]* Diagnosis Anxiety disorder, unspecified documented in this encounter [facility]* Diagnosis Diabetes mellitus due to underlying condition with diabetic polyneuropathy, with long-term current use of insulin ([facility])- Primary Onychomycosis Dermatophytosis of nail Toe pain, left Pain in soft tissues of limb Xerosis cutis Other specified disease of sebaceous glands documented in this encounter [facility]* Diagnosis Mixed hyperlipidemia ([facility])- Primary Mixed hyperlipidemia Diabetes mellitus due to underlying condition with diabetic polyneuropathy, with long-term current use of insulin ([facility])- Primary Onychomycosis Dermatophytosis of nail Toe pain, left Pain in soft tissues of limb Xerosis cutis Other specified disease of sebaceous glands documented in this [facility]* Diagnosis COPD with exacerbation ([facility])- Primary documented in this encounter [facility]* Diagnosis Diabetic neuropathy, painful ([facility])- Primary Type II or unspecified type diabetes mellitus with neurological manifestations, not stated as uncontrolled Type 2 diabetes mellitus with diabetic neuropathy, unspecified ([facility]) COPD with exacerbation ([facility]) Essential (primary) hypertension ([facility]) Unspecified essential hypertension Class 2 obesity without serious comorbidity with body mass index (BMI) of 39.0 to 39.9 in adult, unspecified obesity type Lumbar spondylosis Lumbosacral spondylosis without myelopathy Acute pain of right shoulder Knee pain, unspecified chronicity, unspecified laterality documented in this encounter [facility]* Diagnosis Lumbar spondylosis Lumbosacral spondylosis without myelopathy Acute pain of right shoulder Knee pain, unspecified chronicity, unspecified laterality documented in this encounter [facility]* Diagnosis Type 2 diabetes mellitus with diabetic neuropathy, without long-term current use of insulin (CMS/HCC)- Primary Essential hypertension (CMS/HCC) Unspecified essential hypertension Chronic pain of right knee Hypothyroidism, unspecified type (CMS/HCC) Generalized anxiety disorder (CMS/HCC) Generalized anxiety disorder Hyperlipidemia, unspecified hyperlipidemia type (CMS/HCC) Acute pain of left knee- Primary Chronic pain of right knee COPD with exacerbation (CMS/HCC)- Primary Type 2 diabetes mellitus with diabetic neuropathy, without long-term current use of insulin (CMS/HCC) Medicare annual wellness visit, subsequent Injury of left knee, initial encounter- Primary Fall, initial encounter Primary localized osteoarthrosis of multiple sites Primary localized osteoarthrosis, other specified sites Chronic pain of both knees- Primary Type 2 diabetes mellitus with diabetic neuropathy, unspecified (CMS/HCC) Essential (primary) hypertension (CMS/HCC) Unspecified essential hypertension Anxiety disorder, unspecified Hyperlipidemia, unspecified hyperlipidemia type (CMS/HCC) Hypothyroidism, unspecified (CMS/HCC) Essential hypertension (CMS/HCC) Unspecified essential hypertension Other specified anxiety disorders Type 2 diabetes mellitus with diabetic neuropathy, without long-term current use of insulin (CMS/HCC) Chronic obstructive pulmonary disease with acute exacerbation (CMS/HCC) Diabetic neuropathy, painful (CMS/HCC)- Primary Type II or unspecified type diabetes mellitus with neurological manifestations, not stated as uncontrolled Type 2 diabetes mellitus with diabetic neuropathy, unspecified (CMS/HCC) COPD with exacerbation (CMS/HCC) Essential (primary) hypertension (CMS/HCC) Unspecified essential hypertension Class 2 obesity without serious comorbidity with body mass index (BMI) of 39.0 to 39.9 in adult, unspecified obesity type Lumbar spondylosis Lumbosacral spondylosis without myelopathy Acute pain of right shoulder Knee pain, unspecified chronicity, unspecified laterality COPD with exacerbation (CMS/HCC)- Primary Hypothyroidism, unspecified (CMS/HCC) Essential (primary) hypertension (CMS/HCC) Unspecified essential hypertension Anemia, unspecified type Type 2 diabetes mellitus with diabetic neuropathy, without long-term current use of insulin (CMS/HCC) Frequent falls S/P total knee arthroplasty, right Primary localized osteoarthrosis of multiple sites Primary localized osteoarthrosis, other specified sites Presence of left artificial knee joint Localized osteoarthritis of right knee Mixed hyperlipidemia (CMS/HCC) Mixed hyperlipidemia Need for immunization against influenza- Primary Need for prophylactic vaccination and inoculation against influenza Type 2 diabetes mellitus with diabetic neuropathy, without long-term current use of insulin (CMS/[facility]) Essential (primary) hypertension (CMS/HCC) Unspecified essential hypertension COPD with exacerbation (CMS/HCC) Mixed hyperlipidemia (CMS/HCC) Mixed hyperlipidemia Lumbar spondylosis Lumbosacral spondylosis without myelopathy Acute pain of right shoulder Knee pain, unspecified chronicity, unspecified laterality Mixed hyperlipidemia (CMS/[facility]) Mixed hyperlipidemia documented in this encounter [facility]* Diagnosis Type 2 diabetes mellitus with diabetic neuropathy, without long-term current use of insulin (CMS/[facility])- Primary Essential hypertension (CMS/HCC) Unspecified essential hypertension Chronic pain of right knee Hypothyroidism, unspecified type (CMS/HCC) Generalized anxiety disorder (CMS/[facility]) Generalized anxiety disorder Hyperlipidemia, unspecified hyperlipidemia type (CMS/HCC) Acute pain of left knee- Primary Chronic pain of right knee COPD with exacerbation (CMS/HCC)- Primary Type 2 diabetes mellitus with diabetic neuropathy, without long-term current use of insulin (/[facility]) Medicare annual wellness visit, subsequent Injury of left knee, initial encounter- Primary Fall, initial encounter Primary localized osteoarthrosis of multiple sites Primary localized osteoarthrosis, other specified sites Chronic pain of both knees- Primary Type 2 diabetes mellitus with diabetic neuropathy, unspecified (CMS/HCC) Essential (primary) hypertension (CMS/HCC) Unspecified essential hypertension Anxiety disorder, unspecified Hyperlipidemia, unspecified hyperlipidemia type (CMS/HCC) Hypothyroidism, unspecified (CMS/HCC) Essential hypertension (CMS/HCC) Unspecified essential hypertension Other specified anxiety disorders Type 2 diabetes mellitus with diabetic neuropathy, without long-term current use of insulin (/[facility]) Chronic obstructive pulmonary disease with acute exacerbation (CMS/HCC) Diabetic neuropathy, painful (CMS/HCC)- Primary Type II or unspecified type diabetes mellitus with neurological manifestations, not stated as uncontrolled Type 2 diabetes mellitus with diabetic neuropathy, unspecified (CMS/HCC) COPD with exacerbation (CMS/HCC) Essential (primary) hypertension (CMS/HCC) Unspecified essential hypertension Class 2 obesity without serious comorbidity with body mass index (BMI) of 39.0 to 39.9 in adult, unspecified obesity type Lumbar spondylosis Lumbosacral spondylosis without myelopathy Acute pain of right shoulder Knee pain, unspecified chronicity, unspecified laterality COPD with exacerbation (CMS/HCC)- Primary Hypothyroidism, unspecified (CMS/HCC) Essential (primary) hypertension (CMS/HCC) Unspecified essential hypertension Anemia, unspecified type Type 2 diabetes mellitus with diabetic neuropathy, without long-term current use of insulin (CMS/HCC) Frequent falls S/P total knee arthroplasty, right Primary localized osteoarthrosis of multiple sites Primary localized osteoarthrosis, other specified sites Presence of left artificial knee joint Localized osteoarthritis of right knee Mixed hyperlipidemia (CMS/HCC) Mixed hyperlipidemia Need for immunization against influenza- Primary Need for prophylactic vaccination and inoculation against influenza Type 2 diabetes mellitus with diabetic neuropathy, without long-term current use of insulin (CMS/HCC) Essential (primary) hypertension (CMS/HCC) Unspecified essential hypertension COPD with exacerbation (CMS/HCC) Mixed hyperlipidemia (CMS/HCC) Mixed hyperlipidemia Lumbar spondylosis Lumbosacral spondylosis without myelopathy Acute pain of right shoulder Knee pain, unspecified chronicity, unspecified laterality Hyperlipidemia, unspecified hyperlipidemia type (CMS/HCC) Essential hypertension (CMS/HCC) Unspecified essential hypertension Type 2 diabetes mellitus with diabetic neuropathy, without long-term current use of insulin (CMS/HCC) documented in this encounter [facility]* Diagnosis Type 2 diabetes mellitus with diabetic neuropathy, without long-term current use of insulin (CMS/[facility])- Primary Essential hypertension (CMS/HCC) Unspecified essential hypertension Chronic pain of right knee Hypothyroidism, unspecified type (CMS/HCC) Generalized anxiety disorder (CMS/HCC) Generalized anxiety disorder Hyperlipidemia, unspecified hyperlipidemia type (CMS/HCC) Acute pain of left knee- Primary Chronic pain of right knee COPD with exacerbation (CMS/HCC)- Primary Type 2 diabetes mellitus with diabetic neuropathy, without long-term current use of insulin (CMS/HCC) Medicare annual wellness visit, subsequent Injury of left knee, initial encounter- Primary Fall, initial encounter Primary localized osteoarthrosis of multiple sites Primary localized osteoarthrosis, other specified sites Chronic pain of both knees- Primary Type 2 diabetes mellitus with diabetic neuropathy, unspecified (CMS/HCC) Essential (primary) hypertension (CMS/HCC) Unspecified essential hypertension Anxiety disorder, unspecified Hyperlipidemia, unspecified hyperlipidemia type (CMS/[facility]) Hypothyroidism, unspecified (CMS/[facility]) Essential hypertension ([facility]/HCC) Unspecified essential hypertension Other specified anxiety disorders Type 2 diabetes mellitus with diabetic neuropathy, without long-term current use of insulin ([facility]) Chronic obstructive pulmonary disease with acute exacerbation ([facility]) Diabetic neuropathy, painful ([facility])- Primary Type II or unspecified type diabetes mellitus with neurological manifestations, not stated as uncontrolled Type 2 diabetes mellitus with diabetic neuropathy, unspecified (CMS/[facility]) COPD with exacerbation ([facility]) Essential (primary) hypertension ([facility]) Unspecified essential hypertension Class 2 obesity without serious comorbidity with body mass index (BMI) of 39.0 to 39.9 in adult, unspecified obesity type Lumbar spondylosis Lumbosacral spondylosis without myelopathy Acute pain of right shoulder Knee pain, unspecified chronicity, unspecified laterality COPD with exacerbation ([facility])- Primary Hypothyroidism, unspecified ([facility]) Essential (primary) hypertension ([facility]) Unspecified essential hypertension Anemia, unspecified type Type 2 diabetes mellitus with diabetic neuropathy, without long-term current use of insulin ([facility]) Frequent falls S/P total knee arthroplasty, right Primary localized osteoarthrosis of multiple sites Primary localized osteoarthrosis, other specified sites Presence of left artificial knee joint Localized osteoarthritis of right knee Mixed hyperlipidemia ([facility]) Mixed hyperlipidemia Need for immunization against influenza- Primary Need for prophylactic vaccination and inoculation against influenza Type 2 diabetes mellitus with diabetic neuropathy, without long-term current use of insulin ([facility]) Essential (primary) hypertension ([facility]) Unspecified essential hypertension COPD with exacerbation ([facility] Mixed hyperlipidemia ([facility]) Mixed hyperlipidemia Lumbar spondylosis Lumbosacral spondylosis without myelopathy Acute pain of right shoulder Knee pain, unspecified chronicity, unspecified laterality Essential (primary) hypertension ([facility]) Unspecified essential hypertension Anxiety disorder, unspecified documented in this encounter [facility]* Diagnosis Pre-operative clearance- Primary Preoperative examination, unspecified Mixed conductive and sensorineural hearing loss of right ear with restricted hearing of left ear Sensorineural hearing loss (SNHL) of left ear with restricted hearing of right ear Pulmonary nodule Solitary pulmonary nodule DVT prophylaxis Long-term (current) use of anticoagulants Type 2 diabetes mellitus with diabetic neuropathy, without long-term current use of insulin (HCC) Essential hypertension Unspecified essential hypertension Hyperlipidemia, unspecified hyperlipidemia type Hypothyroidism, unspecified type Chronic obstructive pulmonary disease, unspecified COPD type (HCC) Chronic back pain, unspecified back location, unspecified back pain laterality Depressive disorder Depressive disorder, not elsewhere classified Obesity, unspecified classification, unspecified obesity type, unspecified whether serious comorbidity present Anxiety Anxiety state, unspecified Pre-op evaluation- Primary Preoperative examination, unspecified Mixed conductive and sensorineural hearing loss of right ear with restricted hearing of left ear Chronic obstructive pulmonary disease, unspecified COPD type (HCC) Primary hypertension Unspecified essential hypertension Type 2 diabetes mellitus with diabetic neuropathy, without long-term current use of insulin (HCC) 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 [facility] Diagnosis Type 2 diabetes mellitus with diabetic neuropathy, without long-term current use of insulin (CMS/HCC)- Primary Essential hypertension (CMS/HCC) Unspecified essential hypertension Chronic pain of right knee Hypothyroidism, unspecified type (CMS/HCC) Generalized anxiety disorder (CMS/HCC) Generalized anxiety disorder Hyperlipidemia, unspecified hyperlipidemia type (CMS/HCC) Acute pain of left knee- Primary Chronic pain of right knee COPD with exacerbation (CMS/HCC)- Primary Type 2 diabetes mellitus with diabetic neuropathy, without long-term current use of insulin (CMS/HCC) Medicare annual wellness visit, subsequent Injury of left knee, initial encounter- Primary Fall, initial encounter Primary localized osteoarthrosis of multiple sites Primary localized osteoarthrosis, other specified sites Chronic pain of both knees- Primary Type 2 diabetes mellitus with diabetic neuropathy, unspecified (CMS/HCC) Essential (primary) hypertension (CMS/HCC) Unspecified essential hypertension Anxiety disorder, unspecified Hyperlipidemia, unspecified hyperlipidemia type (CMS/HCC) Hypothyroidism, unspecified (CMS/HCC) Essential hypertension (CMS/HCC) Unspecified essential hypertension Other specified anxiety disorders Type 2 diabetes mellitus with diabetic neuropathy, without long-term current use of insulin (CMS/HCC) Chronic obstructive pulmonary disease with acute exacerbation (CMS/HCC) Diabetic neuropathy, painful (CMS/HCC)- Primary Type II or unspecified type diabetes mellitus with neurological manifestations, not stated as uncontrolled Type 2 diabetes mellitus with diabetic neuropathy, unspecified (CMS/HCC) COPD with exacerbation (CMS/HCC) Essential (primary) hypertension (CMS/HCC) Unspecified essential hypertension Class 2 obesity without serious comorbidity with body mass index (BMI) of 39.0 to 39.9 in adult, unspecified obesity type Lumbar spondylosis Lumbosacral spondylosis without myelopathy Acute pain of right shoulder Knee pain, unspecified chronicity, unspecified laterality COPD with exacerbation (CMS/[facility])- Primary Hypothyroidism, unspecified (CMS/HCC) Essential (primary) hypertension (CMS/HCC) Unspecified essential hypertension Anemia, unspecified type Type 2 diabetes mellitus with diabetic neuropathy, without long-term current use of insulin (CMS/[facility]) Frequent falls S/P total knee arthroplasty, right Primary localized osteoarthrosis of multiple sites Primary localized osteoarthrosis, other specified sites Presence of left artificial knee joint Localized osteoarthritis of right knee Mixed hyperlipidemia (CMS/[facility]) Mixed hyperlipidemia Need for immunization against influenza- Primary Need for prophylactic vaccination and inoculation against influenza Type 2 diabetes mellitus with diabetic neuropathy, without long-term current use of insulin (/[facility]) Essential (primary) hypertension (CMS/HCC) Unspecified essential hypertension COPD with exacerbation (/[facility]) Mixed hyperlipidemia (CMS/[facility]) Mixed hyperlipidemia Lumbar spondylosis Lumbosacral spondylosis without myelopathy Acute pain of right shoulder Knee pain, unspecified chronicity, unspecified laterality Lumbar spondylosis Lumbosacral spondylosis without myelopathy Acute pain of right shoulder Knee pain, unspecified chronicity, unspecified laterality Diabetes mellitus due to underlying condition with diabetic polyneuropathy, with long-term current use of insulin (/[facility])- Primary Onychomycosis Dermatophytosis of nail Toe pain, left Pain in soft tissues of limb documented in this encounter [facility]* Diagnosis Type 2 diabetes mellitus with diabetic neuropathy, without long-term current use of insulin (/[facility])- Primary Essential hypertension (CMS/HCC) Unspecified essential hypertension Chronic pain of right knee Hypothyroidism, unspecified type (CMS/HCC) Generalized anxiety disorder (CMS/[facility]) Generalized anxiety disorder Hyperlipidemia, unspecified hyperlipidemia type (CMS/HCC) Acute pain of left knee- Primary Chronic pain of right knee COPD with exacerbation (CMS/[facility])- Primary Type 2 diabetes mellitus with diabetic neuropathy, without long-term current use of insulin (/[facility]) Medicare annual wellness visit, subsequent Injury of left knee, initial encounter- Primary Fall, initial encounter Primary localized osteoarthrosis of multiple sites Primary localized osteoarthrosis, other specified sites Chronic pain of both knees- Primary Type 2 diabetes mellitus with diabetic neuropathy, unspecified (CMS/[facility]) Essential (primary) hypertension (CMS/HCC) Unspecified essential hypertension Anxiety disorder, unspecified Hyperlipidemia, unspecified hyperlipidemia type (CMS/HCC) Hypothyroidism, unspecified (CMS/HCC) Essential hypertension (CMS/HCC) Unspecified essential hypertension Other specified anxiety disorders Type 2 diabetes mellitus with diabetic neuropathy, without long-term current use of insulin (CMS/[facility]) Chronic obstructive pulmonary disease with acute exacerbation (CMS/[facility]) Diabetic neuropathy, painful (CMS/[facility])- Primary Type II or unspecified type diabetes mellitus with neurological manifestations, not stated as uncontrolled Type 2 diabetes mellitus with diabetic neuropathy, unspecified (CMS/[facility]) COPD with exacerbation (CMS/[facility]) Essential (primary) hypertension (CMS/[facility]) Unspecified essential hypertension Class 2 obesity without serious comorbidity with body mass index (BMI) of 39.0 to 39.9 in adult, unspecified obesity type Lumbar spondylosis Lumbosacral spondylosis without myelopathy Acute pain of right shoulder Knee pain, unspecified chronicity, unspecified laterality COPD with exacerbation (CMS/[facility])- Primary Hypothyroidism, unspecified (CMS/[facility]) Essential (primary) hypertension (CMS/HCC) Unspecified essential hypertension Anemia, unspecified type Type 2 diabetes mellitus with diabetic neuropathy, without long-term current use of insulin (CMS/[facility]) Frequent falls S/P total knee arthroplasty, right Primary localized osteoarthrosis of multiple sites Primary localized osteoarthrosis, other specified sites Presence of left artificial knee joint Localized osteoarthritis of right knee Mixed hyperlipidemia (CMS/[facility]) Mixed hyperlipidemia Need for immunization against influenza- Primary Need for prophylactic vaccination and inoculation against influenza Type 2 diabetes mellitus with diabetic neuropathy, without long-term current use of insulin (CMS/[facility]) Essential (primary) hypertension (CMS/HCC) Unspecified essential hypertension COPD with exacerbation (CMS/[facility]) Mixed hyperlipidemia (CMS/[facility]) Mixed hyperlipidemia Lumbar spondylosis Lumbosacral spondylosis without myelopathy Acute pain of right shoulder Knee pain, unspecified chronicity, unspecified laterality Lumbar spondylosis Lumbosacral spondylosis without myelopathy Acute pain of right shoulder Knee pain, unspecified chronicity, unspecified laterality Essential (primary) hypertension (CMS/HCC) Unspecified essential hypertension Anxiety disorder, unspecified documented in this encounter [facility]* Diagnosis Type 2 diabetes mellitus with diabetic neuropathy, without long-term current use of insulin ([facility])- Primary Essential hypertension ([facility]) Unspecified essential hypertension Chronic pain of right knee Hypothyroidism, unspecified type ([facility]) Generalized anxiety disorder ([facility]) Generalized anxiety disorder Hyperlipidemia, unspecified hyperlipidemia type ([facility]) Acute pain of left knee- Primary Chronic pain of right knee COPD with exacerbation ([facility])- Primary Type 2 diabetes mellitus with diabetic neuropathy, without long-term current use of insulin ([facility]) Medicare annual wellness visit, subsequent Injury of left knee, initial encounter- Primary Fall, initial encounter Primary localized osteoarthrosis of multiple sites Primary localized osteoarthrosis, other specified sites Chronic pain of both knees- Primary Type 2 diabetes mellitus with diabetic neuropathy, unspecified ([facility]) Essential (primary) hypertension ([facility]) Unspecified essential hypertension Anxiety disorder, unspecified Hyperlipidemia, unspecified hyperlipidemia type ([facility]) Hypothyroidism, unspecified ([facility]) Essential hypertension ([facility]) Unspecified essential hypertension Other specified anxiety disorders Type 2 diabetes mellitus with diabetic neuropathy, without long-term current use of insulin ([facility]) Chronic obstructive pulmonary disease with acute exacerbation ([facility]) Diabetic neuropathy, painful ([facility])- Primary Type II or unspecified type diabetes mellitus with neurological manifestations, not stated as uncontrolled Type 2 diabetes mellitus with diabetic neuropathy, unspecified ([facility]) COPD with exacerbation ([facility]) Essential (primary) hypertension ([facility]) Unspecified essential hypertension Class 2 obesity without serious comorbidity with body mass index (BMI) of 39.0 to 39.9 in adult, unspecified obesity type Lumbar spondylosis Lumbosacral spondylosis without myelopathy Acute pain of right shoulder Knee pain, unspecified chronicity, unspecified laterality COPD with exacerbation ([facility])- Primary Hypothyroidism, unspecified (CMS/[facility]) Essential (primary) hypertension ([facility]) Unspecified essential hypertension Anemia, unspecified type Type 2 diabetes mellitus with diabetic neuropathy, without long-term current use of insulin ([facility]) Frequent falls S/P total knee arthroplasty, right Primary localized osteoarthrosis of multiple sites Primary localized osteoarthrosis, other specified sites Presence of left artificial knee joint Localized osteoarthritis of right knee Mixed hyperlipidemia ([facility]) Mixed hyperlipidemia Need for immunization against influenza- Primary Need for prophylactic vaccination and inoculation against influenza Type 2 diabetes mellitus with diabetic neuropathy, without long-term current use of insulin (CMS/HCC) Essential (primary) hypertension (CMS/HCC) Unspecified essential hypertension COPD with exacerbation (CMS/HCC) Mixed hyperlipidemia (CMS/HCC) Mixed hyperlipidemia Lumbar spondylosis Lumbosacral spondylosis without myelopathy Acute pain of right shoulder Knee pain, unspecified chronicity, unspecified laterality Lumbar spondylosis Lumbosacral spondylosis without myelopathy Acute pain of right shoulder Knee pain, unspecified chronicity, unspecified laterality Type 2 diabetes mellitus with diabetic neuropathy, without long-term current use of insulin (CMS/[facility]) documented in this encounter [facility]* Diagnosis Type 2 diabetes mellitus with diabetic neuropathy, without long-term current use of insulin (CMS/HCC)- Primary Essential hypertension (CMS/HCC) Unspecified essential hypertension Chronic pain of right knee Hypothyroidism, unspecified type (CMS/HCC) Generalized anxiety disorder (CMS/HCC) Generalized anxiety disorder Hyperlipidemia, unspecified hyperlipidemia type (CMS/HCC) Acute pain of left knee- Primary Chronic pain of right knee COPD with exacerbation (CMS/HCC)- Primary Type 2 diabetes mellitus with diabetic neuropathy, without long-term current use of insulin (/[facility]) Medicare annual wellness visit, subsequent Injury of left knee, initial encounter- Primary Fall, initial encounter Primary localized osteoarthrosis of multiple sites Primary localized osteoarthrosis, other specified sites Chronic pain of both knees- Primary Type 2 diabetes mellitus with diabetic neuropathy, unspecified (CMS/HCC) Essential (primary) hypertension (CMS/HCC) Unspecified essential hypertension Anxiety disorder, unspecified Hyperlipidemia, unspecified hyperlipidemia type (CMS/HCC) Hypothyroidism, unspecified (CMS/HCC) Essential hypertension (CMS/HCC) Unspecified essential hypertension Other specified anxiety disorders Type 2 diabetes mellitus with diabetic neuropathy, without long-term current use of insulin (/[facility]) Chronic obstructive pulmonary disease with acute exacerbation (CMS/[facility]) Diabetic neuropathy, painful (CMS/HCC)- Primary Type II or unspecified type diabetes mellitus with neurological manifestations, not stated as uncontrolled Type 2 diabetes mellitus with diabetic neuropathy, unspecified (CMS/HCC) COPD with exacerbation (CMS/HCC) Essential (primary) hypertension (CMS/HCC) Unspecified essential hypertension Class 2 obesity without serious comorbidity with body mass index (BMI) of 39.0 to 39.9 in adult, unspecified obesity type Lumbar spondylosis Lumbosacral spondylosis without myelopathy Acute pain of right shoulder Knee pain, unspecified chronicity, unspecified laterality COPD with exacerbation (CMS/HCC)- Primary Hypothyroidism, unspecified (CMS/HCC) Essential (primary) hypertension (CMS/HCC) Unspecified essential hypertension Anemia, unspecified type Type 2 diabetes mellitus with diabetic neuropathy, without long-term current use of insulin (CMS/HCC) Frequent falls S/P total knee arthroplasty, right Primary localized osteoarthrosis of multiple sites Primary localized osteoarthrosis, other specified sites Presence of left artificial knee joint Localized osteoarthritis of right knee Mixed hyperlipidemia (CMS/HCC) Mixed hyperlipidemia Need for immunization against influenza- Primary Need for prophylactic vaccination and inoculation against influenza Type 2 diabetes mellitus with diabetic neuropathy, without long-term current use of insulin (CMS/HCC) Essential (primary) hypertension (CMS/HCC) Unspecified essential hypertension COPD with exacerbation (CMS/HCC) Mixed hyperlipidemia (CMS/HCC) Mixed hyperlipidemia Lumbar spondylosis Lumbosacral spondylosis without myelopathy Acute pain of right shoulder Knee pain, unspecified chronicity, unspecified laterality Lumbar spondylosis Lumbosacral spondylosis without myelopathy Acute pain of right shoulder Knee pain, unspecified chronicity, unspecified laterality Acute upper respiratory infection, unspecified documented in this encounter [facility]* Diagnosis Type 2 diabetes mellitus with diabetic neuropathy, without long-term current use of insulin (CMS/HCC)- Primary Essential hypertension (CMS/HCC) Unspecified essential hypertension Chronic pain of right knee Hypothyroidism, unspecified type (CMS/HCC) Generalized anxiety disorder (CMS/HCC) Generalized anxiety disorder Hyperlipidemia, unspecified hyperlipidemia type (CMS/HCC) Acute pain of left knee- Primary Chronic pain of right knee COPD with exacerbation (CMS/HCC)- Primary Type 2 diabetes mellitus with diabetic neuropathy, without long-term current use of insulin (/HCC) Medicare annual wellness visit, subsequent Injury of left knee, initial encounter- Primary Fall, initial encounter Primary localized osteoarthrosis of multiple sites Primary localized osteoarthrosis, other specified sites Chronic pain of both knees- Primary Type 2 diabetes mellitus with diabetic neuropathy, unspecified (CMS/HCC) Essential (primary) hypertension (CMS/HCC) Unspecified essential hypertension Anxiety disorder, unspecified Hyperlipidemia, unspecified hyperlipidemia type (CMS/HCC) Hypothyroidism, unspecified (CMS/HCC) Essential hypertension (CMS/HCC) Unspecified essential hypertension Other specified anxiety disorders Type 2 diabetes mellitus with diabetic neuropathy, without long-term current use of insulin (CMS/HCC) Chronic obstructive pulmonary disease with acute exacerbation (CMS/HCC) Diabetic neuropathy, painful (CMS/HCC)- Primary Type II or unspecified type diabetes mellitus with neurological manifestations, not stated as uncontrolled Type 2 diabetes mellitus with diabetic neuropathy, unspecified (CMS/HCC) COPD with exacerbation (/) Essential (primary) hypertension (CMS/HCC) Unspecified essential hypertension Class 2 obesity without serious comorbidity with body mass index (BMI) of 39.0 to 39.9 in adult, unspecified obesity type Lumbar spondylosis Lumbosacral spondylosis without myelopathy Acute pain of right shoulder Knee pain, unspecified chronicity, unspecified laterality COPD with exacerbation (CMS/)- Primary Hypothyroidism, unspecified (/) Essential (primary) hypertension (/HCC) Unspecified essential hypertension Anemia, unspecified type Type 2 diabetes mellitus with diabetic neuropathy, without long-term current use of insulin (/) Frequent falls S/P total knee arthroplasty, right Primary localized osteoarthrosis of multiple sites Primary localized osteoarthrosis, other specified sites Presence of left artificial knee joint Localized osteoarthritis of right knee Mixed hyperlipidemia (/HCC) Mixed hyperlipidemia Need for immunization against influenza- Primary Need for prophylactic vaccination and inoculation against influenza Type 2 diabetes mellitus with diabetic neuropathy, without long-term current use of insulin (/[facility]) Essential (primary) hypertension (/) Unspecified essential hypertension COPD with exacerbation (/) Mixed hyperlipidemia (/) Mixed hyperlipidemia Lumbar spondylosis Lumbosacral spondylosis without myelopathy Acute pain of right shoulder Knee pain, unspecified chronicity, unspecified laterality Lumbar spondylosis Lumbosacral spondylosis without myelopathy Acute pain of right shoulder Knee pain, unspecified chronicity, unspecified laterality Anxiety disorder, unspecified documented in this encounter [facility]* Diagnosis Type 2 diabetes mellitus with diabetic neuropathy, without long-term current use of insulin (/HCC)- Primary Essential hypertension (/HCC) Unspecified essential hypertension Chronic pain of right knee Hypothyroidism, unspecified type (/HCC) Generalized anxiety disorder (/HCC) Generalized anxiety disorder Hyperlipidemia, unspecified hyperlipidemia type (/) Acute pain of left knee- Primary Chronic pain of right knee COPD with exacerbation (/)- Primary Type 2 diabetes mellitus with diabetic neuropathy, without long-term current use of insulin (/[facility]) Medicare annual wellness visit, subsequent Injury of left knee, initial encounter- Primary Fall, initial encounter Primary localized osteoarthrosis of multiple sites Primary localized osteoarthrosis, other specified sites Chronic pain of both knees- Primary Type 2 diabetes mellitus with diabetic neuropathy, unspecified ([facility]) Essential (primary) hypertension ([facility]) Unspecified essential hypertension Anxiety disorder, unspecified Hyperlipidemia, unspecified hyperlipidemia type ([facility]) Hypothyroidism, unspecified ([facility]) Essential hypertension ([facility]) Unspecified essential hypertension Other specified anxiety disorders Type 2 diabetes mellitus with diabetic neuropathy, without long-term current use of insulin ([facility]) Chronic obstructive pulmonary disease with acute exacerbation ([facility]) Diabetic neuropathy, painful ([facility])- Primary Type II or unspecified type diabetes mellitus with neurological manifestations, not stated as uncontrolled Type 2 diabetes mellitus with diabetic neuropathy, unspecified ([facility]) COPD with exacerbation ([facility]) Essential (primary) hypertension ([facility]) Unspecified essential hypertension Class 2 obesity without serious comorbidity with body mass index (BMI) of 39.0 to 39.9 in adult, unspecified obesity type Lumbar spondylosis Lumbosacral spondylosis without myelopathy Acute pain of right shoulder Knee pain, unspecified chronicity, unspecified laterality COPD with exacerbation ([facility])- Primary Hypothyroidism, unspecified ([facility]) Essential (primary) hypertension ([facility]) Unspecified essential hypertension Anemia, unspecified type Type 2 diabetes mellitus with diabetic neuropathy, without long-term current use of insulin ([facility]) Frequent falls S/P total knee arthroplasty, right Primary localized osteoarthrosis of multiple sites Primary localized osteoarthrosis, other specified sites Presence of left artificial knee joint Localized osteoarthritis of right knee Mixed hyperlipidemia (/[facility]) Mixed hyperlipidemia Need for immunization against influenza- Primary Need for prophylactic vaccination and inoculation against influenza Type 2 diabetes mellitus with diabetic neuropathy, without long-term current use of insulin ([facility]) Essential (primary) hypertension ([facility]) Unspecified essential hypertension COPD with exacerbation ([facility]) Mixed hyperlipidemia ([facility]) Mixed hyperlipidemia Lumbar spondylosis Lumbosacral spondylosis without myelopathy Acute pain of right shoulder Knee pain, unspecified chronicity, unspecified laterality Lumbar spondylosis Lumbosacral spondylosis without myelopathy Acute pain of right shoulder Knee pain, unspecified chronicity, unspecified laterality Essential (primary) hypertension (CMS/HCC)- Primary Unspecified essential hypertension Other specified anxiety disorders Type 2 diabetes mellitus with diabetic neuropathy, without long-term current use of insulin (CMS/HCC) Type 2 diabetes mellitus with diabetic neuropathy, unspecified (CMS/HCC) Anxiety disorder, unspecified Essential hypertension (CMS/HCC) Unspecified essential hypertension Lumbar spondylosis Lumbosacral spondylosis without myelopathy Acute pain of right shoulder Knee pain, unspecified chronicity, unspecified laterality Mixed hyperlipidemia (CMS/[facility]) Mixed hyperlipidemia Medication refill Issue of repeat prescriptions Diabetes mellitus due to underlying condition with diabetic polyneuropathy, with long-term current use of insulin (/[facility])- Primary Onychomycosis Dermatophytosis of nail Toe pain, left Pain in soft tissues of limb documented in this encounter [facility]* Diagnosis Type 2 diabetes mellitus with diabetic neuropathy, without long-term current use of insulin (/[facility])- Primary Essential hypertension (CMS/HCC) Unspecified essential hypertension Chronic pain of right knee Hypothyroidism, unspecified type (/[facility]) Generalized anxiety disorder (/[facility]) Generalized anxiety disorder Hyperlipidemia, unspecified hyperlipidemia type (/[facility]) Acute pain of left knee- Primary Chronic pain of right knee COPD with exacerbation (/[facility])- Primary Type 2 diabetes mellitus with diabetic neuropathy, without long-term current use of insulin (/[facility]) Medicare annual wellness visit, subsequent Injury of left knee, initial encounter- Primary Fall, initial encounter Primary localized osteoarthrosis of multiple sites Primary localized osteoarthrosis, other specified sites Chronic pain of both knees- Primary Type 2 diabetes mellitus with diabetic neuropathy, unspecified (CMS/HCC) Essential (primary) hypertension (CMS/HCC) Unspecified essential hypertension Anxiety disorder, unspecified Hyperlipidemia, unspecified hyperlipidemia type (CMS/HCC) Hypothyroidism, unspecified (CMS/HCC) Essential hypertension (CMS/HCC) Unspecified essential hypertension Other specified anxiety disorders Type 2 diabetes mellitus with diabetic neuropathy, without long-term current use of insulin (/[facility]) Chronic obstructive pulmonary disease with acute exacerbation (/[facility]) Diabetic neuropathy, painful (CMS/HCC)- Primary Type II or unspecified type diabetes mellitus with neurological manifestations, not stated as uncontrolled Type 2 diabetes mellitus with diabetic neuropathy, unspecified (CMS/HCC) COPD with exacerbation (CMS/HCC) Essential (primary) hypertension (CMS/HCC) Unspecified essential hypertension Class 2 obesity without serious comorbidity with body mass index (BMI) of 39.0 to 39.9 in adult, unspecified obesity type Lumbar spondylosis Lumbosacral spondylosis without myelopathy Acute pain of right shoulder Knee pain, unspecified chronicity, unspecified laterality COPD with exacerbation (CMS/[facility])- Primary Hypothyroidism, unspecified (CMS/HCC) Essential (primary) hypertension (CMS/HCC) Unspecified essential hypertension Anemia, unspecified type Type 2 diabetes mellitus with diabetic neuropathy, without long-term current use of insulin (CMS/[facility]) Frequent falls S/P total knee arthroplasty, right Primary localized osteoarthrosis of multiple sites Primary localized osteoarthrosis, other specified sites Presence of left artificial knee joint Localized osteoarthritis of right knee Mixed hyperlipidemia (CMS/HCC) Mixed hyperlipidemia Need for immunization against influenza- Primary Need for prophylactic vaccination and inoculation against influenza Type 2 diabetes mellitus with diabetic neuropathy, without long-term current use of insulin (/[facility]) Essential (primary) hypertension (CMS/HCC) Unspecified essential hypertension COPD with exacerbation (CMS/) Mixed hyperlipidemia (CMS/HCC) Mixed hyperlipidemia Lumbar spondylosis Lumbosacral spondylosis without myelopathy Acute pain of right shoulder Knee pain, unspecified chronicity, unspecified laterality Lumbar spondylosis Lumbosacral spondylosis without myelopathy Acute pain of right shoulder Knee pain, unspecified chronicity, unspecified laterality Essential (primary) hypertension (CMS/HCC)- Primary Unspecified essential hypertension Other specified anxiety disorders Type 2 diabetes mellitus with diabetic neuropathy, without long-term current use of insulin (/HCC) Type 2 diabetes mellitus with diabetic neuropathy, unspecified (CMS/HCC) Anxiety disorder, unspecified Essential hypertension (CMS/HCC) Unspecified essential hypertension Lumbar spondylosis Lumbosacral spondylosis without myelopathy Acute pain of right shoulder Knee pain, unspecified chronicity, unspecified laterality Mixed hyperlipidemia (CMS/HCC) Mixed hyperlipidemia Medication refill Issue of repeat prescriptions Diabetes mellitus due to underlying condition with diabetic polyneuropathy, with long-term current use of insulin (/[facility])- Primary Onychomycosis Dermatophytosis of nail Toe pain, left Pain in soft tissues of limb documented in this encounter [facility]* Diagnosis Pre-operative clearance- Primary Preoperative examination, unspecified Mixed conductive and sensorineural hearing loss of right ear with restricted hearing of left ear Sensorineural hearing loss (SNHL) of left ear with restricted hearing of right ear Pulmonary nodule Solitary pulmonary nodule DVT prophylaxis Long-term (current) use of anticoagulants Type 2 diabetes mellitus with diabetic neuropathy, without long-term current use of insulin (HCC) Essential hypertension Unspecified essential hypertension Hyperlipidemia, unspecified hyperlipidemia type Hypothyroidism, unspecified type Chronic obstructive pulmonary disease, unspecified COPD type (HCC) Chronic back pain, unspecified back location, unspecified back pain laterality Depressive disorder Depressive disorder, not elsewhere classified Obesity, unspecified classification, unspecified obesity type, unspecified whether serious comorbidity present Anxiety Anxiety state, unspecified Pre-op evaluation- Primary Preoperative examination, unspecified Mixed conductive and sensorineural hearing loss of right ear with restricted hearing of left ear Chronic obstructive pulmonary disease, unspecified COPD type (HCC) Primary hypertension Unspecified essential hypertension Type 2 diabetes mellitus with diabetic neuropathy, without long-term current use of insulin (HCC) Pain- Primary Generalized pain documented in this encounter [facility] note* Diagnosis Type 2 diabetes mellitus with diabetic neuropathy, without long-term current use of insulin (CMS/HCC)- Primary Essential hypertension (CMS/HCC) Unspecified essential hypertension Chronic pain of right knee Hypothyroidism, unspecified type (CMS/HCC) Generalized anxiety disorder (CMS/HCC) Generalized anxiety disorder Hyperlipidemia, unspecified hyperlipidemia type (CMS/HCC) Acute pain of left knee- Primary Chronic pain of right knee COPD with exacerbation (CMS/HCC)- Primary Type 2 diabetes mellitus with diabetic neuropathy, without long-term current use of insulin (CMS/HCC) Medicare annual wellness visit, subsequent Injury of left knee, initial encounter- Primary Fall, initial encounter Primary localized osteoarthrosis of multiple sites Primary localized osteoarthrosis, other specified sites Chronic pain of both knees- Primary Type 2 diabetes mellitus with diabetic neuropathy, unspecified (CMS/HCC) Essential (primary) hypertension (CMS/HCC) Unspecified essential hypertension Anxiety disorder, unspecified Hyperlipidemia, unspecified hyperlipidemia type (CMS/HCC) Hypothyroidism, unspecified (CMS/HCC) Essential hypertension (CMS/HCC) Unspecified essential hypertension Other specified anxiety disorders Type 2 diabetes mellitus with diabetic neuropathy, without long-term current use of insulin (CMS/HCC) Chronic obstructive pulmonary disease with acute exacerbation (CMS/HCC) Diabetic neuropathy, painful (CMS/HCC)- Primary Type II or unspecified type diabetes mellitus with neurological manifestations, not stated as uncontrolled Type 2 diabetes mellitus with diabetic neuropathy, unspecified (CMS/HCC) COPD with exacerbation (CMS/HCC) Essential (primary) hypertension (CMS/HCC) Unspecified essential hypertension Class 2 obesity without serious comorbidity with body mass index (BMI) of 39.0 to 39.9 in adult, unspecified obesity type Lumbar spondylosis Lumbosacral spondylosis without myelopathy Acute pain of right shoulder Knee pain, unspecified chronicity, unspecified laterality COPD with exacerbation (CMS/[facility])- Primary Hypothyroidism, unspecified (CMS/[facility]) Essential (primary) hypertension (CMS/HCC) Unspecified essential hypertension Anemia, unspecified type Type 2 diabetes mellitus with diabetic neuropathy, without long-term current use of insulin (CMS/[facility]) Frequent falls S/P total knee arthroplasty, right Primary localized osteoarthrosis of multiple sites Primary localized osteoarthrosis, other specified sites Presence of left artificial knee joint Localized osteoarthritis of right knee Mixed hyperlipidemia (CMS/[facility]) Mixed hyperlipidemia Need for immunization against influenza- Primary Need for prophylactic vaccination and inoculation against influenza Type 2 diabetes mellitus with diabetic neuropathy, without long-term current use of insulin (CMS/[facility]) Essential (primary) hypertension (CMS/HCC) Unspecified essential hypertension COPD with exacerbation (CMS/[facility]) Mixed hyperlipidemia (CMS/[facility]) Mixed hyperlipidemia Lumbar spondylosis Lumbosacral spondylosis without myelopathy Acute pain of right shoulder Knee pain, unspecified chronicity, unspecified laterality Lumbar spondylosis Lumbosacral spondylosis without myelopathy Acute pain of right shoulder Knee pain, unspecified chronicity, unspecified laterality Essential (primary) hypertension (CMS/HCC)- Primary Unspecified essential hypertension Other specified anxiety disorders Type 2 diabetes mellitus with diabetic neuropathy, without long-term current use of insulin ([facility]) Type 2 diabetes mellitus with diabetic neuropathy, unspecified (CMS/[facility]) Anxiety disorder, unspecified Essential hypertension (CMS/HCC) Unspecified essential hypertension Lumbar spondylosis Lumbosacral spondylosis without myelopathy Acute pain of right shoulder Knee pain, unspecified chronicity, unspecified laterality Mixed hyperlipidemia (CMS/HCC) Mixed hyperlipidemia Medication refill Issue of repeat prescriptions Lumbar spondylosis Lumbosacral spondylosis without myelopathy Acute pain of right shoulder Knee pain, unspecified chronicity, unspecified laterality Medication refill Issue of repeat prescriptions documented in this encounter [facility] N[facility] - Reported* Type Description Date Medical History Hypertension Medical History Arthritis Medical History COPD Medical History Hypothyroid Surgical History knee replacement Surgical History cholecystectomy Surgical History back surgery Surgical History Foot Surgery Surgical History shoulder surgery Surgical History hand surgery Surgical History revision left total knee Surgical History right ear implant 10/2019 Hospitalization History See Above [employer] Other History of Present illness Narrative* Grant Vilchis Shaan, DPM - 12/15/2024 4:40 PM EST Patient: Joie Lu Jr. : 1955 PCP: Regan Ortega MD SUBJECTIVE This is a 69 y.o. male that presents today with a CC of elongated, thick nails. Pt states nails have been elongated and thick for many years and cause pain with ambulation in shoegear. Pt has tried previous treatment with minimal relief. Pt presents today for nail care and treatment. Patient is DM2 and has positive history of right below-knee amputation Past Medical History: Past Medical History: Diagnosis Date Allergic rhinitis, mild Arthritis Back pain Bilateral knee pain Chronic pain Chronic pain of left knee Chronic sinusitis of both maxillary sinuses Chronic sinusitis, unspecified location Compression fracture of L1 vertebra (CMS/HCC) COPD (chronic obstructive pulmonary disease) (CMS/HCC) Depression with anxiety Diabetes mellitus (CMS/HCC) Diabetic neuropathy, type II diabetes mellitus (CMS/HCC) Dyslipidemia (CMS/HCC) Ear discomfort, right Hyperkalemia Hyperkalemia Hypertension (CMS/HCC) Hypertension, benign (CMS/HCC) Hyponatremia Hypothyroid (CMS/HCC) Insomnia, persistent 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) Knee joint replacement status, left Left leg pain Left middle ear infection Low back pain with radiation Major depression (CMS/HCC) Non-insulin treated type 2 diabetes mellitus (CMS/HCC) Opiate use Otitis media, acute Pain following oral surgery Partial nontraumatic amputation of foot, right (CMS/HCC) Pneumothorax 2008 Recurrent otitis media, bilateral Right otitis media Swelling of right lower extremity Temporary low platelet count (CMS/HCC) Unspecified internal derangement of right knee Medications: Current Outpatient Medications: albuterol HFA (ProAir HFA) 90 mcg/act inhaler, Inhale 2 puffs every 4 (four) hours if needed for shortness of breath, Disp: 18 g, Rfl: 2 Alcohol Sheets (Alcoh-Wipe) sheet, Once daily, Disp: 100 each, Rfl: 11 Allergy Relief 10 MG tablet, TAKE 1 TABLET BY MOUTH DAILY, Disp: 100 tablet, Rfl: 1 amLODIPine (Norvasc) 5 MG tablet, Take 1 tablet (5 mg) by mouth Daily, Disp: 90 tablet, Rfl: 1 ascorbic acid (Vitamin C) 500 MG ER capsule, Take 500 mg by mouth 1 (one) time each day at the sametime., Disp: , Rfl: Blood Glucose Monitoring Suppl (FreeStyle Lite) device, Test daily before all meals/snacks and oncebefore bedtime., Disp: 1 each, Rfl: 0 busPIRone (Buspar) 30 MG tablet, Take 1 tablet (30 mg) by mouth every 12 (twelve) hours, Disp: 180 tablet, Rfl: 1 fluticasone (Flonase) 50 MCG/ACT nasal spray, Administer 2 sprays into each nostril Daily Shake gently. Before first use, prime pump. After use, clean tip and replace cap., Disp: 16 g, Rfl: 1 Fluticasone Furoate-Vilanterol (Breo Ellipta) 100-25 MCG/ACT aerosol powder , Inhale 1 puff 1 (one)time each day at the same time, Disp: , Rfl: gabapentin (Neurontin) 600 MG tablet, Take 1 tablet (600 mg) by mouth in the morning and 1 tablet (600 mg) in the evening and 1 tablet (600 mg) before bedtime., Disp: 270 tablet, Rfl: 0 glimepiride (Amaryl) 4 MG tablet, Take 0.5 tablets (2 mg) by mouth every 12 (twelve) hours, Disp: 180 tablet, Rfl: 1 glucose blood test strip, Use daily, Disp: 100 each, Rfl: 12 hydrOXYzine HCl (Atarax) 50 MG tablet, Take 1 tablet (50 mg) by mouth 3 (three) times a day as needed for anxiety, Disp: 270 tablet, Rfl: 0 Lancets Ultra Thin 30G misc, 1 each Daily, Disp: 100 each, Rfl: 11 levothyroxine (Synthroid, Levoxyl) 125 MCG tablet, Take 1 tablet (125 mcg) by mouth Daily, Disp: 90tablet, Rfl: 1 lisinopril 20 MG tablet, Take 1 tablet (20 mg) by mouth Daily, Disp: 90 tablet, Rfl: 1 meloxicam (Mobic) 7.5 MG tablet, TAKE 1 TABLET BY MOUTH DAILY, Disp: 90 tablet, Rfl: 1 metFORMIN (Glucophage) 1000 MG tablet, Take 1 tablet (1,000 mg) by mouth in the morning and 1 tablet (1,000 mg) in the evening. Take with meals., Disp: 180 tablet, Rfl: 0 oxyCODONE-acetaminophen (Percocet) 5-325 MG tablet, Take 1 tablet by mouth every 6 (six) hours if needed for severe pain Do not start before November 17, 2024., Disp: 120 tablet, Rfl: 0 prazosin (Minipress) 1 MG capsule, Take 1 capsule (1 mg) by mouth at bedtime, Disp: 90 capsule, Rfl: 0 rosuvastatin (Crestor) 5 MG tablet, Take 1 tablet (5 mg) by mouth Daily, Disp: 30 tablet, Rfl: 2 semaglutide (Rybelsus) 3 MG tablet, Take 1 tablet (3 mg) by mouth in the morning. Take before meals., Disp: 30 tablet, Rfl: 0 semaglutide (Rybelsus) 7 MG tablet, Take 1 tablet (7 mg) by mouth in the morning. Take before meals. Do not start before September 12, 2024., Disp: 30 tablet, Rfl: 1 tiotropium (Spiriva Respimat) 1.25 MCG/ACT inhaler, Inhale 2 puffs in the morning., Disp: , Rfl: venlafaxine XR (Effexor XR) 150 MG 24 hr capsule, Take 1 capsule (150 mg) by mouth Daily Do not crush or chew., Disp: 90 capsule, Rfl: 0 Social History: Social History Socioeconomic History Marital status: Spouse name: Not on file Number of children: Not on file Years of education: Not on file Highest education level: Not on file Occupational History Not on file Tobacco Use Smoking status: Never Passive exposure: Past Smokeless tobacco: Never Vaping Use Vaping status: Never Used Substance and Sexual Activity Alcohol use: Never Comment: caffeine: 2-3 cups per day soda Drug use: Never Sexual activity: Defer Other Topics Concern Not on file Social History Narrative Not on file Social Drivers of Health Financial Resource Strain: High Risk (02/02/2024) Overall Financial Resource Strain (CARDIA) Difficulty of Paying Living Expenses: Hard Food Insecurity: Food Insecurity Present (02/02/2024) Hunger Vital Sign Worried About Running Out of Food in the Last Year: Sometimes true Ran Out of Food in the Last Year: Sometimes true Transportation Needs: No Transportation Needs (02/02/2024) PRAPARE - Transportation Lack of Transportation (Medical): No Lack of Transportation (Non-Medical): No Physical Activity: Inactive (02/02/2024) Exercise Vital Sign Days of Exercise per Week: 0 days Minutes of Exercise per Session: 0 min Stress: Stress Concern Present (02/02/2024) [place] [employer] Occupational [employer] - Occupational Stress Questionnaire Feeling of Stress : Very much Social Connections: Moderately Isolated (02/02/2024) Social Connection and Isolation Panel [NHANES] Frequency of Communication with Friends and Family: Twice a week Frequency of Social Gatherings with Friends and Family: Twice a week Attends Restorationism Services: Never Active Member of Clubs or Organizations: Yes Attends Club or Organization Meetings: Never Marital Status: Intimate Partner Violence: Not on file Housing Stability: Low Risk (02/02/2024) Housing Stability Vital Sign Unable to Pay for Housing in the Last Year: No Number of Places Lived in the Last Year: 1 Unstable Housing in the Last Year: No ROS: General: denies fever, chills, fatigue, malaise OBJECTIVE LE EXAM: DERM: Elongated thick yellow crumbly nails digits 1 through 5 left foot. Diminished hair growth with thin shiny atrophic skin left. Negative dry scaly skin to left foot with negative fissures to leftheel VASC: Palpable pedal pulses to the left foot NEURO: 5.07 [place] Krystal monofilament test diminished to forefoot left 125Hz tuning fork diminished to 1st MPJ left ORTHO: Positive pain on palpation to toenails of the left 1,2,3,4,5 toes ASSESSMENT 1. Diabetes mellitus due to underlying condition with diabetic polyneuropathy, with long-term current use of insulin ([facility]) 2. Onychomycosis 3. Toe pain, left PLAN Discussed proper foot care with patient today. Debride nails in length and thickness digits 1 through 5 left foot Patient educated today on proper diabetic foot care including monitoring feet daily for any signs of infection openings in the skin or irregularities to both feet. Patient had a diabetic neurologicalexam today to both their feet and discussed proper shoe gear. Grant Sheth DPM documented [facility] Dis[facility] instructions No data available for this section [facility] No data available for this section [facility] for referral (narrative)* Diagnostic Procedure Only (Routine) - New Request Specialty Diagnoses / Procedures Referred By Contac t Referred To Contact XR IMAGING Diagnoses Pyogenic arthritis of left knee joint, due to unspecified organism (HCC) Procedures XR KNEE GENERAL 4V AP BOTH/PA BOTH/LAT/MERC BILATERAL RADIOLOGIC EXAM KNEE COMPLETE 4/MORE VIEWS Roberto Brito PA-C [address] [id number] Xr Imaging [place] [address] Referral ID Status Reason Start Date Expiration Date Visits Requested Visits Authorized [id number] New Request Auto-Generat ed Referral 07/13/2024 08/12/2025 1 1 [facility] for referral (narrative)* Diagnostic Procedure Only (Routine) - Closed Specialty Diagnoses / Procedures Referred By Contac t Referred To Contact XR IMAGING Diagnoses Pyogenic arthritis of left knee joint, due to unspecified organism (HCC) Procedures XR KNEE GENERAL 4V AP BOTH/PA BOTH/LAT/MERC BILATERAL RADIOLOGIC EXAM KNEE COMPLETE 4/MORE VIEWS Roberto Brito PA-C [address] [place] [address] Xr Imaging [place] [address] Referral ID Status Reason Start Date Expiration Date V isits Requested Visits Authorized [id number] Closed Auto-Generate d Referral 07/14/2024 10/18/2024 1 1 [facility] for visit Narrative* Rehabilitation - Outpatient (Routine) - Authorized Specialty Diagnoses / Procedures Referred By Contac t Referred To Contact Physical Therapy Diagnoses Frequent falls S/P total knee arthroplasty, right Primary localized osteoarthrosis of multiple sites Presence of left artificial knee joint Localized osteoarthritis of right knee Procedures IA OFFICE/OUTPATIENT NEW HIGH MDM 60 MINUTES Daria Noel, NUNU [address] [facility] [facility] [place] [address] Phone: tel: fax: Marco Izquierdo, PT [address] [facility] [place] [address] Phone: tel: fax: Referral ID Status Reason Start Date Expiration Date Visits Requested Visits Authorized [id number] Authorized Specialty Services Required 4 01/29/2025 99 99 [facility] Summary Purpose Family History No Family History Records FoundUnknown Family Member Name Dates Details Family history of malignant neoplasm: Mother(V16.9, Z80.9) Status:Active No pertinent family history: Father(V49.89, Z78.9) Status:Active Family history of myocardial infarction: Brother(V17.3, Z82.49) Status:Active Family history of CABG: Brot her(V17.49, Z82.49) Status:Active Advance Directives No Advanced Directives Records FoundDocuments on File Type Date Recorded 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 Advance Directive(s) 07/12/2021 10:29 AM Advance Directive(s) 06/21/2021 12:46 PM Advance Directive(s) 11/03/2019 6:20 AM Advance Directive(s) 10/11/2019 2:38 PM Advance Directive Response Recorded Date/ Time Advance Directives No May 24 019 11:50am Latest Code Status on File Code Status Date Activated Date Inactivated Comments Full Code 06/25/2023 6:51 AM 06/26/2023 5:20 PM Healthcare Agents on File Name Relationship Healthcare Agent Relationshi p Communication Juan José Lu Child Primary Decision Maker Date Activated Date Inactivated Comments 06/25/2023 6:51 AM 06/26/2023 5:20 PM Healthcare Agents on File Name Relationship Healthcare Agent Relationshi p Communication Juan José Lu Child Primary Decision Maker Reason for Referral Specialty Diagnoses / Procedures Referred By Jonathan santana Referred To Contact Diagnoses Low back pain, unspecified Shaikh Grove MD [address] [place] [address] Referral ID Status Reason Start Date Expiration Date V isits Requested Visits Authorized [id number] Pending Review 1 1 Specialty Diagnoses / Procedures Referred By Contac t Referred To Contact Allergy Diagnoses Acute recurrent frontal sinusitis Procedures CONSULT TO ALLERGY/IMMUNOLOGY OFFICE/[facility]IENT [facility] 60-74 MINUTES Nicholas Jenkins MD [address] [place] [address] Referral ID Status Reason Start Date Expiration Date Visits Requested Visits Authorized [id number] Pending Review PCP Requested Referral 10/31/2022 10/31/2023 1 1 Specialty Diagnoses / Procedures Referred By Contac t Referred To Contact Ent - Otolaryngology Diagnoses Acute recurrent frontal sinusitis Procedures CONSULT TO ENT OFFICE/[facility]IENT [facility] 60-74 MINUTES Partha Jackson PA-C [address] [place] [address] Referral ID Status Reason Start Date Expiration Date Visits Requested Visits Authorized [id number] Pending Review PCP Requested Referral 08/19/2022 08/19/2023 [...] section and content) DATE CREATED AUTHOR 04/12/2018 [facility] DATE CREATED AUTHOR AUTHOR'S ORGANIZ ATION 02/25/2023 [facility] DATE CREATED AUTHOR AUTHOR'S ORGANIZ ATION 04/10/2023 [facility] DATE CREATED AUTHOR AUTHOR'S ORGANIZ ATION 04/10/2023 [facility] DATE CREATED AUTHOR AUTHOR'S ORGANIZ ATION 07/22/2023 [facility] DATE CREATED AUTHOR AUTHOR'S ORGANIZ ATION 11/27/2023 [facility] DATE CREATED AUTHOR AUTHOR'S ORGANIZ ATION 12/09/2023 Rony Stern [facility] DATE CREATED AUTHOR AUTHOR'S ORGANIZ ATION 02/18/2024 [facility] DATE CREATED AUTHOR AUTHOR'S ORGANIZ ATION 06/04/2024 [facility] DATE CREATED AUTHOR AUTHOR'S ORGANIZ ATION 07/05/2024 Jennifer Solis [facility] DATE CREATED AUTHOR AUTHOR'S ORGANIZ ATION 11/12/2024 [facility] DATE CREATED AUTHOR AUTHOR'S ORGANIZ ATION 12/17/2024 [facility] DATE CREATED AUTHOR AUTHOR'S ORGANIZ ATION 01/14/2025 [facility] Source Comments (unrecognize d section and content) In the event this informatio n is protected by the Federal Confidentiality of Alcohol and Drug Abuse Patient Records regulations: The Federal rules restrict any use of the information to criminally investigate or prosecute any alcohol or drug abuse patient.[facility] the event this information is protected by the Federal Confidentiality of Alcohol and Drug Abuse Patient Records regulations: The Federal rules restrict any use of the information to criminally investigate or prosecute any alcohol or drug abuse patient.[facility] the event this information is protected by the Federal Confidentiality of Alcohol and Drug Abuse Patient Records regulations: The Federal rules restrict any use of the information to criminally investigate or prosecute any alcohol or drug abuse patient.[facility] the event this information is protected by the Federal Confidentiality of Alcohol and Drug Abuse Patient Records regulations: The Federal rules restrict any use of the information to criminally investigate or prosecute any alcohol or drug abuse patient.[facility] the event this information is protected by the Federal Confidentiality of Alcohol and Drug Abuse Patient Records regulations: The Federal rules restrict any use of the information to criminally investigate or prosecute any alcohol or drug abuse patient.[facility] the event this information is protected by the Federal Confidentiality of Alcohol and Drug Abuse Patient Records regulations: The Federal rules restrict any use of the information to criminally investigate or prosecute any alcohol or drug abuse patient.[facility] the event this information is protected by the Federal Confidentiality of Alcohol and Drug Abuse Patient Records regulations: The Federal rules restrict any use of the information to criminally investigate or prosecute any alcohol or drug abuse patient.[facility] the event this information is protected by the Federal Confidentiality of Alcohol and Drug Abuse Patient Records regulations: The Federal rules restrict any use of the information to criminally investigate or prosecute any alcohol or drug abuse patient.[facility] the event this information is protected by the Federal Confidentiality of Alcohol and Drug Abuse Patient Records regulations: The Federal rules restrict any use of the information to criminally investigate or prosecute any alcohol or drug abuse patient.[facility] the event this information is protected by the Federal Confidentiality of Alcohol and Drug Abuse Patient Records regulations: The Federal rules restrict any use of the information to criminally investigate or prosecute any alcohol or drug abuse patient.[facility] the event this information is protected by the Federal Confidentiality of Alcohol and Drug Abuse Patient Records regulations: The Federal rules restrict any use of the information to criminally investigate or prosecute any alcohol or drug abuse patient.[facility] the event this information is protected by the Federal Confidentiality of Alcohol and Drug Abuse Patient Records regulations: The Federal rules restrict any use of the information to criminally investigate or prosecute any alcohol or drug abuse patient.[facility] the event this information is protected by the Federal Confidentiality of Alcohol and Drug Abuse Patient Records regulations: The Federal rules restrict any use of the information to criminally investigate or prosecute any alcohol or drug abuse patient.[facility] the event this information is protected by the Federal Confidentiality of Alcohol and Drug Abuse Patient Records regulations: The Federal rules restrict any use of the information to criminally investigate or prosecute any alcohol or drug abuse patient.[facility] the event this information is protected by the Federal Confidentiality of Alcohol and Drug Abuse Patient Records regulations: The Federal rules restrict any use of the information to criminally investigate or prosecute any alcohol or drug abuse patient.[facility] the event this information is protected by the Federal Confidentiality of Alcohol and Drug Abuse Patient Records regulations: The Federal rules restrict any use of the information to criminally investigate or prosecute any alcohol or drug abuse patient.[facility] the event this information is protected by the Federal Confidentiality of Alcohol and Drug Abuse Patient Records regulations: The Federal rules restrict any use of the information to criminally investigate or prosecute any alcohol or drug abuse patient.[facility] the event this information is protected by the Federal Confidentiality of Alcohol and Drug Abuse Patient Records regulations: The Federal rules restrict any use of the information to criminally investigate or prosecute any alcohol or drug abuse patient.[facility] the event this information is protected by the Federal Confidentiality of Alcohol and Drug Abuse Patient Records regulations: The Federal rules restrict any use of the information to criminally investigate or prosecute any alcohol or drug abuse patient.[facility] the event this information is protected by the Federal Confidentiality of Alcohol and Drug Abuse Patient Records regulations: The Federal rules restrict any use of the information to criminally investigate or prosecute any alcohol or drug abuse patient.[facility] Reason for Visit (unrecogniz ed section and content) Reason Onset Date Comments Refill Request 02/06/2022 Reason Comments Returning Patient's Call Reason Comments Follow Up Specialty Diagnoses / Procedures Referred By Jonathan santana Referred To Contact Diagnoses Other specified hearing loss, unspecified ear Procedures ADULT HEARING TEST/AUDIOGRAM COMPRE AUDIOMETRY THRESHOLD HOAL KOFI ADAMSIJ Gifty Ball MD [address] [place] [address] [facility] [address] [place] [address] Referral ID Status Reason Start Date Expiration Date V isits Requested Visits Authorized [id number] Closed Auto-Generate d Referral 12/17/2021 03/17/2022 1 1 Reason Comments Follow Up Established Patient 5 month follow-up.pt states he get ear infection every month. Reason Comments Sinus Problem Recurrent since infe ctions. Ear Pain Right ear Specialty Diagnoses / Procedures Referred By Jonathan santana Referred To Contact Ent - Otolaryngology Diagnoses Acute recurrent frontal sinusitis Procedures CONSULT TO ENT OFFICE/OUTPATIENT NEW HIGH MDM 60-74 MINUTES Partha Jackson PA-C [address] [place] [address] Referral ID Status Reason Start Date Expiration Date Visits Requested Visits Authorized [id number] Pending Review PCP Requested Referral 08/19/2022 08/19/2023 1 1 Reason Comments Patient Question Orders Specialty Diagnoses / Procedures Referred By Contac t Referred To Contact Radiology / RADIO CT SCAN [facility] Diagnoses 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 Comments CT TEMP BONES WO IVCON Procedures CT WO BR[address]YDA [address] Gifty Ball MD [address] [place] [address] [facility]onda [address] [place] [address] Referral ID Status Reason Start Date Expiration Date Visits Re quested Visits Authorized [id number] Closed 03/06/2021 10/18/2021 1 1 Reason Onset Date Comments Refill Request 06/01/2023 Specialty Diagnoses / Procedures Referred By Contac t Referred To Contact [facility] [address] [place] [address] Referral ID Status Reason Start Date Expiration Date Visits Re quested Visits Authorized [id number] 1 1 Reason Comments Med Refill Reason Comments DM Foot Care Dm Nails Reason Onset Date Comments Refill Request 05/24/2024 Reason Comments Patient Question Reason Comments Refill Request Reason Comments Follow Up Tinnitus, popping no ise Reason Onset Date Comments Med Refill 07/19/2024 Reason Comments Knee Pain New Swelling Numbness Reason Comments Radio Gen A21 Specialty Diagnoses / Procedures Referred By Contac t Referred To Contact XR IMAGING Diagnoses Pyogenic arthritis of left knee joint, due to unspecified organism (HCC) Procedures XR KNEE GENERAL 4V AP BOTH/PA BOTH/LAT/MERC BILATERAL RADIOLOGIC EXAM KNEE COMPLETE 4/MORE VIEWS Roberto Brito PA-C [address] [place] [address] [place] [id number] Referral ID Status Reason Start Date Expiration Date V tristents Requested Visits Authorized [id number] Closed Auto-Generate d Referral 07/14/2024 10/18/2024 1 1 Reason Onset Date Comments Med Refill 08/03/2024 Reason Onset Date Comments RS PT Eval needed 08/09/2024 He called noti ng he does not have his car back yet and no transportation available; he requested to rs his PT eval. I offered 08/17 and he took it w/ Marco Izquierdo, PT. Reason Onset Date Comments Med Refill 08/16/2024 Reason Onset Date Comments re: Remaining PT 09/06/2024 He called and l m to note that he is going to be stopping the OP PT and partake working out at gym in [place]. He said has a friend that will work with him w/ certain exercises to benefit from. He also said the copay is adding up and feels he can cont on w/ supervision at the gym. Reason Onset Date Comments Cx PT today 08/30/2024 He called noting not feeling well and unable to make PT today. I reminded and he confirmed 09/01. Reason Comments DM Foot Care Dm nail care Reason Comments Med Refill Reason Onset Date Comments Med Refill 10/04/2024 Reason Onset Date Comments Med Refill 06/06/2024 Reason Onset Date Comments Med Refill 06/21/2024 Reason Comments Follow-up ONE MONTH Reason Onset Date Comments Med Refill 10/24/2024 Reason Onset Date Comments Med Refill 11/09/2024 Reason Comments Appointment Office use only slot Reason Comments Pain Reason Onset Date Comments Med Refill 11/24/2024 Reason Onset Date Comments Med Refill 11/28/2024 Reason Onset Date Comments Med Refill 12/05/2024 Reason Comments Follow-up Reason Comments Toenail Care Non dm nial care Care Teams (unrecognized sec tion and content) Binder Layer Relationship Specialty Start Date End Date Regan Ortega PCP - General Family Practice 10/11/19 Binder Layer Relationship Specialty Start Date End Date Regan Ortega PCP - General Family Practice 10/11/19 Binder Layer Relationship Specialty Start Date End Date Regan Ortega PCP - General Family Practice 10/11/19 Binder Layer Relationship Specialty Start Date End Date Regan Ortega PCP - General Family Practice 10/11/19 Binder Layer Relationship Specialty Start Date End Date Regan Ortega Mame PCP - General Family Medicine 10/11/19 Binder Layer Relationship Specialty Start Date End Date Regan Ortega PCP - General Family Medicine 10/11/19 Binder Layer Relationship Specialty Start Date End Date Regan Ortega PCP - General Family Medicine 10/11/19 Binder Layer Relationship Specialty Start Date End Date Regan Ortega Mame PCP - General Family Medicine 10/11/19 Team Status: Active Member Role Status Dates Shaikh Maine MD Primary Care Provider Active Team Status: Inactive Member Role Status Dates Shaikh Maine MD Primary Care Provider Active Agustin Nj MD Attending Provider Active Binder Layer Relationship Specialty Start Date End Date Regan Ortega PCP - General Family Medicine 10/11/19 Binder Layer Relationship Specialty Start Date End Date Regan Ortega Mame PCP - General Family Medicine 10/11/19 Binder Layer Relationship Specialty Start Date End Date Guille Tapia DO [address] [place] [address] PCP - General 09/28/15 Binder Layer Relationship Specialty Start Date End Date Guille Tapia DO [address] [place] [address] PCP - General 09/28/15 Binder Layer Relationship Specialty Start Date End Date Willie GuilleDO [address] [place], [place] [id number] PCP - General 09/28/15 Binder Layer Relationship Specialty Start Date End Date Willie GuilleDO [address] [place] [address] PCP - General 09/28/15 Binder Layer Relationship Specialty Start Date End Date Shaikh Grove MD PCP - General Internal Medicine 05/11/23 Shaikh Grove MD [address] [place] [address] PCP - Devoted 07/19/23 Binder Layer Relationship Specialty Start Date End Date Shaikh Grove MD PCP - General Internal Medicine 05/11/23 Shaikh Grove MD [address] [place] [address] PCP - Devoted 07/19/23 Binder Layer Relationship Specialty Start Date End Date Shaikh Grove MD PCP - General Internal Medicine 05/11/23 Shaikh Grove MD [address] [place] [address] PCP - Devoted 07/19/23 Binder Layer Relationship Specialty Start Date End Date Shaikh Grove MD [address] [place] [address] PCP - General 12/07/23 Binder Layer Relationship Specialty Start Date End Date Regan Ortega PCP - General Family Medicine 10/11/19 Binder Layer Relationship Specialty Start Date End Date Regan Ortega PCP - General Family Medicine 10/11/19 Binder Layer Relationship Specialty Start Date End Date Regan Ortega PCP - General Family Medicine 10/11/19 Binder Layer Relationship Specialty Start Date End Date Shaikh Grove MD [address] [place], [place] [phone] PCP - General 12/07/23 Binder Layer Relationship Specialty Start Date End Date Regan Ortega PCP - General Family Medicine 10/11/19 Justin Mcgowan MD [facility] [place] [address] Referring Orthopedics 07/08/24 Binder Layer Relationship Specialty Start Date End Date Shaikh Grove MD [address] [place] [address] PCP - Devoted 10/19/22 Regan Ortega MD [address] [place] [address] PCP - General Family Medicine 05/18/24 Shaniqua Yost LSW Overnight Associate Family Medicine 01/29/24 Daria Noel NP [address] [place] [address] Nurse Practitioner Family Medicine 05/18/24 Binder Layer Relationship Specialty Start Date End Date Regan Ortega PCP - General Family Medicine 10/11/19 Justin Mcgowan MD [address] [place] [address] Referring Orthopedics 07/08/24 Binder Layer Relationship Specialty Start Date End Date Regan Ortega PCP - General Family Medicine 10/11/19 Justin Mcgowan MD [address] [place] [address] Referring Orthopedics 07/08/24 Binder Layer Relationship Specialty Start Date End Date Regan Ortega MD [address] [place] [address] PCP - General Family Medicine 05/18/24 Regan Ortega MD [address] [place] [address] PCP - Devoted 10/19/22 Shaniqua Yost LSW Overnight Associate Family Medicine 01/29/24 Daria Noel NP [address] [place] [address] Nurse Practitioner Family Medicine 05/18/24 Binder Layer Relationship Specialty Start Date End Date Regan Ortega MD [address] [place] [address] PCP - Devoted 10/19/22 Unallocated, Haris Oglesby MD [address] [place] [address] PCP - General Family Medicine 08/03/24 Shaniqua Yost, [facility] Overnight Associate Family Medicine 01/29/24 Daria Noel, NUNU [address] [place] [address] Nurse Practitioner Family Medicine 05/18/24 Binder Layer Relationship Specialty Start Date End Date Regan Ortega MD [address] [place] [address] PCP - Devoted 10/19/22 Unallocated, Haris Oglesby MD [address] [place] [address] PCP - General Family Medicine 08/03/24 Shaniqua Yost [facility] Overnight Associate Family Medicine 01/29/24 Daria Noel, NUNU [address] [place] [address] Nurse Practitioner Family Medicine 05/18/24 Binder Layer Relationship Specialty Start Date End Date Regan Ortega MD [address] [place] [address] PCP - Devoted 10/19/22 Unallocated, Haris Oglesby MD [address] [place] [address] PCP - General Family Medicine 08/03/24 Shaniqua Yost LSW Overnight Associate Family Medicine 01/29/24 Daria Noel NP [address] [place] [address] Nurse Practitioner Family Medicine 05/18/24 Binder Layer Relationship Specialty Start Date End Date Regan Ortega MD [address] [place] [address] PCP - General Family Medicine 05/18/24 08/02/24 Regan Ortega MD [address] [place] [address] PCP - Devoted 10/19/22 Shaniqua Yost [employer]ORATORY ANALY[employer] Overnight Associate Family Medicine 01/29/24 Daria Noel NP [address] [place] [address] Nurse Practitioner Family Medicine 05/18/24 Binder Layer Relationship Specialty Start Date End Date Regan Ortega MD [address] [place] [address] PCP - Devoted 10/19/22 Unallocated, Haris Oglesby MD [address] [place] [place] [address] PCP - General Family Medicine 08/03/24 Shaniqua Yost LSW Overnight Associate Family Medicine 01/29/24 Daria Noel NP [address] [place] [address] Nurse Practitioner Family Medicine 05/18/24 Binder Layer Relationship Specialty Start Date End Date Regan Ortega MD [address] [place] [address] PCP - Devoted 10/19/22 Unallocated, Haris Oglesby MD [facility] [place] [address] PCP - General Family Medicine 08/03/24 Shaniqua Yost, [facility] Overnight Associate Family Medicine 01/29/24 Daria Noel NP [address] [place] [address] Nurse Practitioner Family Medicine 05/18/24 Binder Layer Relationship Specialty Start Date End Date Regan Ortega MD [address] [place] [address] PCP - Devoted 10/19/22 Unallocated, Haris Oglesby MD [address] [place] [address] PCP - General Family Medicine 08/03/24 Shaniqua Yost, [facility] Overnight Associate Family Medicine 01/29/24 Daria Noel NP [address] [place] [address] Nurse Practitioner Family Medicine 05/18/24 Binder Layer Relationship Specialty Start Date End Date Regan Ortega MD [address] [place] [address] PCP - Devoted 10/19/22 Unallocated, Haris Oglesby MD [address] [place] [address] PCP - General Family Medicine 08/03/24 Shaniqua Yost, [facility] Overnight Associate Family Medicine 01/29/24 Daria Noel NP [address] [place] [address] Nurse Practitioner Family Medicine 05/18/24 Binder Layer Relationship Specialty Start Date End Date Regan Ortega MD [address] [place] [address] PCP - Devoted 10/19/22 Unallocated, Haris Oglesby MD [address] [place] [address] PCP - General Family Medicine 08/03/24 Shaniqua Yost, [facility] Overnight Associate Family Medicine 01/29/24 Daria Noel NP [address] [place] [address] Nurse Practitioner Family Medicine 05/18/24 Binder Layer Relationship Specialty Start Date End Date Regan Ortega MD [address] [place] [address] PCP - Devoted 10/19/22 Regan Ortega MD [address] [place] [address] PCP - General Family Medicine 08/18/24 Shaniqua Yost, [facility] Overnight Associate Family Medicine 01/29/24 Daria Noel NP [address] [place] [address] Nurse Practitioner Family Medicine 05/18/24 Hany Mack MA Family Medicine 08/19/24 Binder Layer Relationship Specialty Start Date End Date Regan Ortega MD [address] [place] [address] PCP - Devoted 10/19/22 Regan Ortega MD [address] [place] [address] PCP - General Family Medicine 08/18/24 Shaniqua Yost [facility] Overnight Associate Family Medicine 01/29/24 Daria Noel, NUNU [address] [place] [address] Nurse Practitioner Family Medicine 05/18/24 Hany Mack MA Family Medicine 08/19/24 Binder Layer Relationship Specialty Start Date End Date Regan Ortega MD [address] [place] [address] PCP - Devoted 10/19/22 Rgean Ortega MD [address] [place] [address] PCP - General Family Medicine 08/18/24 Shaniqua Yost, [facility] Overnight Associate Family Medicine 01/29/24 Daria Noel NP [address] [place] [address] Nurse Practitioner Family Medicine 05/18/24 Hany Mack MA Family Medicine 08/19/24 Binder Layer Relationship Specialty Start Date End Date Regan Ortega MD [address] [place] [address] PCP - Devoted 10/19/22 Regan Ortega MD [address] [place] [address] PCP - General Family Medicine 08/18/24 Shaniqua Yost [facility] Overnight Associate Family Medicine 01/29/24 Daria Noel NP [address] [place] [address] Nurse Practitioner Family Medicine 05/18/24 Hany Mack MA Family Medicine 08/19/24 Binder Layer Relationship Specialty Start Date End Date Regan Ortega MD [address] [place] [address] PCP - Devoted 10/19/22 Regan Ortega MD [address] [place] [address] PCP - General Family Medicine 08/18/24 Shaniqua Yost, [facility] Overnight Associate Family Medicine 01/29/24 Daria Noel NP [address] [place] [address] Nurse Practitioner Family Medicine 05/18/24 Hany Mack MA Family Medicine 08/19/24 Binder Layer Relationship Specialty Start Date End Date Regan Ortega MD [address] [place] [address] PCP - Devoted 10/19/22 Regan Ortega MD [address] [place] [address] PCP - General Family Medicine 08/18/24 Shaniqua Yost, [facility] Overnight Associate Family Medicine 01/29/24 Daria Noel NP [address] [place] [address] Nurse Practitioner Family Medicine 05/18/24 Hany Mack MA Family Medicine 08/19/24 Binder Layer Relationship Specialty Start Date End Date Regan Ortega MD [address] [place] [address] PCP - Devoted 10/19/22 Regan Ortega MD [address] [place] [address] PCP - General Family Medicine 08/18/24 Shaniqua Yost, [facility] Overnight Associate Family Medicine 01/29/24 Daria Noel NP [address] [place] [address] Nurse Practitioner Family Medicine 05/18/24 Hany Mack MA Family Medicine 08/19/24 Binder Layer Relationship Specialty Start Date End Date Regan Ortega MD [address] [place] [address] PCP - Devoted 10/19/22 Regan Ortega MD [address] [place] [address] PCP - General Family Medicine 08/18/24 Shaniqua Yost LSW Overnight Associate Family Medicine 01/29/24 Daria Noel NP [address] [place] [address] Nurse Practitioner Family Medicine 05/18/24 Hany Mack MA Family Medicine 08/19/24 Binder Layer Relationship Specialty Start Date End Date Shaikh Grove MD [address] [place] [address] PCP - Devoted 10/19/22 Regan Ortega MD [address] [place] [address] PCP - General Family Medicine 05/18/24 Shaniqua Yost LSW Overnight Associate Family Medicine 01/29/24 Daria Noel NP [address] [place] [address] Nurse Practitioner Family Medicine 05/18/24 Binder Layer Relationship Specialty Start Date End Date Regan Ortega MD [address] [place] [address] PCP - Devoted 10/19/22 10/18/24 Regan Ortega MD [address] [place] [address] PCP - General Family Medicine 08/18/24 Shaniqua Yost LSW Overnight Associate Family Medicine 01/29/24 Daria Noel, NUNU [address] [place] [address] Nurse Practitioner Family Medicine 05/18/24 Hany Mack HI Family Medicine 08/19/24 Binder Layer Relationship Specialty Start Date End Date Shaikh Grove MD [address] [place] [address] PCP - Devoted 10/19/22 Regan Ortega MD [address] [place] [address] PCP - General Family Medicine 05/18/24 Adrián Ellison LPN Licensed Practical Nurse Family Medicine 01/27/24 Shaniqua Yost OIL LABORATORY ANALYST Overnight Associate Family Medicine 01/29/24 Daria Noel, NUNU [address] [place] [address] Nurse Practitioner Family Medicine 05/18/24 Binder Layer Relationship Specialty Start Date End Date Shaikh Grove MD [address] [place] [address] PCP - Devoted 10/19/22 Regan Ortega MD [address] [place] [address] PCP - General Family Medicine 05/18/24 Adrián Ellison LPN Licensed Practical Nurse Family Medicine 01/27/24 Shaniqua Yost, [facility] Overnight Associate Family Medicine 01/29/24 Daria Noel NP [address] [place] [address] Nurse Practitioner Family Medicine 05/18/24 Binder Layer Relationship Specialty Start Date End Date Shaikh Grove MD [address] [place] [address] PCP - Devoted 10/19/22 Regan Ortega MD [address] [place] [address] PCP - General Family Medicine 05/18/24 Adrián Ellison LPN Licensed Practical Nurse Family Medicine 01/27/24 Shaniqua Yost, [facility] Overnight Associate Family Medicine 01/29/24 Daria Noel NP [address] [place] [address] Nurse Practitioner Family Medicine 05/18/24 Binder Layer Relationship Specialty Start Date End Date Shaikh Grove MD [address] [place] [address] PCP - Devoted 10/19/22 Regan Ortega MD [address] [place] [address] PCP - General Family Medicine 05/18/24 Adrián Ellison LPN Licensed Practical Nurse Family Medicine 01/27/24 Shaniqua Yost, [facility] Overnight Associate Family Medicine 01/29/24 Daria Noel NP [address] [place] [address] Nurse Practitioner Family Medicine 05/18/24 Binder Layer Relationship Specialty Start Date End Date Shaikh Grove MD [address] [place] [address] PCP - Devoted 10/19/22 Regan Ortega MD [address] [place] [address] PCP - General Family Medicine 05/18/24 Adrián Ellison LPN Licensed Practical Nurse Family Medicine 01/27/24 Shaniqua Yost [facility] Overnight Associate Family Medicine 01/29/24 Daria Noel NP [address] [place] [address] Nurse Practitioner Family Medicine 05/18/24 Binder Layer Relationship Specialty Start Date End Date Shaikh Grove MD [address] [place] [address] PCP - Devoted 10/19/22 Regan Ortega MD [address] [place] [address] PCP - General Family Medicine 05/18/24 Adrián Ellison LPN Licensed Practical Nurse Family Medicine 01/27/24 Shaniqua Yost, [facility] Overnight Associate Family Medicine 01/29/24 Daria Noel, NUNU [address] [place] [address] Nurse Practitioner Family Medicine 05/18/24 Binder Layer Relationship Specialty Start Date End Date Shaikh Grove MD [address] [place] [address] PCP - Devoted 10/19/22 Regan Ortega MD [address] [place] [address] PCP - General Family Medicine 05/18/24 Shaniqua Yost [facility] Overnight Associate Family Medicine 01/29/24 Daria Noel, NUNU [address] [place] [address] Nurse Practitioner Family Medicine 05/18/24 Binder Layer Relationship Specialty Start Date End Date Regan Ortega MD [address] [place] [address] PCP - Devoted 10/19/22 Regan Ortega MD [address] [place] [address] PCP - General Family Medicine 08/18/24 Shaniqua Yost, [facility] Overnight Associate Family Medicine 01/29/24 Daria Noel NP [address] [place] [address] Nurse Practitioner Family Medicine 05/18/24 Hany Mack MA Family Medicine 08/19/24 Binder Layer Relationship Specialty Start Date End Date Regan Ortega MD [address] [place] [address] PCP - Devoted 10/19/22 Regan Ortega MD [address] [place] [address] PCP - General Family Medicine 08/18/24 Shaniqua Yost [facility] Overnight Associate Family Medicine 01/29/24 Daria Noel, NUNU [address] [place] [address] Nurse Practitioner Family Medicine 05/18/24 Hany Mack MA Family Medicine 08/19/24 Binder Layer Relationship Specialty Start Date End Date Regan Ortega MD [address] [place] [address] PCP - Devoted 10/19/22 Regan Ortega MD [address] [place] [address] PCP - General Family Medicine 08/18/24 Shaniqua Yost, [facility] Overnight Associate Family Medicine 01/29/24 Daria Noel NP [address] [place] [address] Nurse Practitioner Family Medicine 05/18/24 Hany Mack MA Family Medicine 08/19/24 Binder Layer Relationship Specialty Start Date End Date Regan Ortega MD PCP - General Family Medicine 10/11/19 Justin Mcgowan MD [address] [place] [address] Referring Orthopedics 07/08/24 Binder Layer Relationship Specialty Start Date End Date Regan Ortega MD PCP - General Family Medicine 10/11/19 Justin Mcgowan MD [address] [place] [address] Referring Orthopedics 07/08/24 Binder Layer Relationship Specialty Start Date End Date Regan Ortega MD [address] [place] [address] PCP - Devoted 10/19/22 Regan Ortega MD [address] [place] [address] PCP - General Family Medicine 08/18/24 Shaniqua Yost [facility] Overnight Associate Family Medicine 01/29/24 Daria Noel NP [address] [place] [address] Nurse Practitioner Family Medicine 05/18/24 Hany Mack MA Family Medicine 08/19/24 Binder Layer Relationship Specialty Start Date End Date Regan Ortega MD [address] [place] [address] PCP - Devoted 10/19/22 Regan Ortega MD [address] [place] [address] PCP - General Family Medicine 08/18/24 Shaniqua Yost LSW Overnight Associate Family Medicine 01/29/24 Daria Noel NP [address] [place] [address] Nurse Practitioner Family Medicine 05/18/24 Hany Mack MA Family Medicine 08/19/24 Binder Layer Relationship Specialty Start Date End Date Regan Ortega MD [address] [place] [address] PCP - Devoted 10/19/22 Regan Ortega MD [address] [place] [address] PCP - General Family Medicine 08/18/24 Shaniqua Yost LSW Overnight Associate Family Medicine 01/29/24 Daria Noel NP [address] [place] [address] Nurse Practitioner Family Medicine 05/18/24 Hany Mack MA Family Medicine 08/19/24 Binder Layer Relationship Specialty Start Date End Date Regan Ortega MD [address] [place] [address] PCP - Devoted 10/19/22 Regan Ortega MD [address] [place] [address] PCP - General Family Medicine 08/18/24 Shaniqua Yost, [facility] Overnight Associate Family Medicine 01/29/24 Daria Noel NP [address] [place] [address] Nurse Practitioner Family Medicine 05/18/24 Hany Mack MA Family Medicine 08/19/24 Binder Layer Relationship Specialty Start Date End Date Regan Ortega MD [address] [place] [address] PCP - Devoted 10/19/22 Regan Ortega MD [address] [place] [address] PCP - General Family Medicine 08/18/24 Shaniqua Yost, [facility] Overnight Associate Family Medicine 01/29/24 Daria Noel, NUNU [address] [place] [address] Nurse Practitioner Family Medicine 05/18/24 Hany Mack MA Family Medicine 08/19/24 Binder Layer Relationship Specialty Start Date End Date Regan Ortega MD [address] [place] [address] PCP - Devoted 10/19/22 UnallocatedHaris MD [facility] [place] [address] PCP - General Family Medicine 12/13/24 Shaniqua Yost [facility] Overnight Associate Family Medicine 01/29/24 Hany Mack MA Family Medicine 08/19/24 Binder Layer Relationship Specialty Start Date End Date Regan Ortega MD [address] [place] [address] PCP - Devoted 10/19/22 Unallocated, Haris Oglesby MD [address] [place] [address] PCP - General Family Medicine 12/13/24 Shaniqua Yost [facility] Overnight Associate Family Medicine 01/29/24 Hany Mack, [place] Family Medicine 08/19/24 Binder Layer Relationship Specialty Start Date End Date Regan Ortega MD PCP - General Family Medicine 10/11/19 Justin Mcgowan MD [facility] [place] [address] [address] [place] [address] Referring Orthopedics 07/08/24 Binder Layer Relationship Specialty Start Date End Date Regan Ortega MD [address] [place] [address] PCP - Devoted 10/19/22 UnallocatedHaris MD [address] [place] [address] PCP - General Family Medicine 12/13/24 Goals (unrecognized section and content) Goals may [...] BE BASED ON THE PRIMARY CLINICAL RECORDS. [facility] Amanda Huff DBA [employer] [facility]. provides no warranty or guarantee of the accuracy or completeness of information in this document.
--- NOTE | 2025-01-18 21:11 | ECG_ITS ---
[facility] Test Date: 2025-01-18 Pat Name: JOIE LANGSTON Department: Room: - Gender: Male [employer]: : 1955 Requested By: [id number] Order Number: [id number] Reading MD: SHARI ALMONTE M.D. Measurements Intervals Superior Rate: 106 P: 90 WY: 152 QRS: -43 QRSD: 90 T: 55 QT: 330 QTc: 392 Interpretive Statements 1120 Sinus tachycardia 3114 Cannot rule out anterior myocardial infarction, age undetermined 7200 Abnormal left axis deviation 8102 Low QRS voltage in chest leads 9150 abnormal ECG Compared to ECG 12/19/2024 17:49:50 No significant change Electronically Signed On 01-20-2025 15:05:29 EDT by SHARI ALMONTE M.D.
--- NOTE | 2025-01-18 21:13 | ED.GENADUL1 ---
HPI HPI - General Adult General Chief complaint: Extremity Problem, Nontraumatic Stated complaint: left knee pain Time Seen by Provider: 01/18/25 20:56 Source: patient Mode of arrival: ambulance Limitations: no limitations History of Present Illness HPI narrative: 69-year-old male presents to the emergency department because he states he cannot walk. He states he cannot walk because of issues with his left knee. He appears to have ongoing issues with this knee. He states he has a joaquin in his leg and he states a fracture of the joaquin was discovered on an MRI at [facility] in September, 4 months ago. He saw an orthopedist at [facility] who referred him apparently to a specialist at the [facility]. The patient has seen that specialist and has another appointment on January 24, in 6 days. He states he has not been able to walk for about 4 days the pain is moderate and there is been no injury. Related Data Home Medications ?Medication ?Instructions ?Recorded ?Confirmed amlodipine 5 mg tablet 5 mg PO DAILY 07/20/23 01/18/25 azelastine 137 mcg (0.1 %) nasal 1 spray intranasal Q12H 07/20/23 01/18/25 spray buspirone 30 mg tablet 30 mg PO BID 07/20/23 01/18/25 clonazepam 1 mg tablet 1 mg PO Q8H 07/20/23 01/18/25 cyclobenzaprine 10 mg tablet 10 mg PO Q8H 07/20/23 01/18/25 gabapentin 300 mg capsule 300 mg PO Q8H 07/20/23 01/18/25 glimepiride 4 mg tablet 4 mg PO BID 07/20/23 01/18/25 hydroxyzine HCl 25 mg tablet 25 mg PO Q8H 07/20/23 01/18/25 levothyroxine 125 mcg tablet 125 mcg PO DAILY 07/20/23 01/18/25 lisinopril 20 mg tablet 20 mg PO DAILY 07/20/23 01/18/25 meloxicam 7.5 mg tablet 7.5 mg PO DAILY 07/20/23 01/18/25 metformin 850 mg tablet 1,000 mg PO BID 07/20/23 01/18/25 prazosin 1 mg capsule 1 mg PO DAILY 07/20/23 01/18/25 albuterol sulfate 90 mcg/actuation 2 inh inhalation Q6H PRN shortness 12/30/24 01/18/25 aerosol inhaler of breath or wheezing fluticasone 250 mcg-salmeterol 50 1 inh inhalation Q12H 12/30/24 01/18/25 mcg/dose blistr powdr for inhalation rosuvastatin 5 mg tablet 5 mg PO QDAY 12/30/24 01/18/25 hydroxyzine HCl 50 mg tablet mg 01/18/25 Previous Rx's ?Medication ?Instructions ?Recorded hydrocodone 5 mg-acetaminophen 325 1 tab PO Q6H PRN pain 5 days #20 07/20/23 mg tablet tabs Allergies Allergy/AdvReac Type Severity Reaction Status Date / Time morphine Allergy itch Verified 01/18/25 20:59 Opioid HPI Opioid Management Most Recent Opioid Data: Last Pain Scale 9 11/01/23 13:22 11/01/23 Review of Systems ROS Narrative A ten point review of systems is negative except as noted above. [facility] Medical History (Updated 01/18/25 @ 23:25 by Josef Paniagua MD) Diabetes ?E11.9 - Type 2 diabetes mellitus without complications (ICD-10) Social History Smoking status: Never smoker Little interest or pleasure in doing things: not at all Feeling down, depressed, or hopeless: not at all Exam Narrative Exam Narrative: Nurses note and vital signs reviewed and patient is not hypoxic. General: The patient appears well and in no apparent distress. Patient is resting comfortably on cart. Skin: Warm, dry, no pallor noted. There is no rash noted. Head: Normocephalic, atraumatic Eye: Normal conjunctiva, no drainage Ears, Nose, Mouth, and Throat: oral mucosa is moist. Nares patent. Cardiovascular: Regular Rate and Rhythm, minimally tachycardic Respiratory: Patient is in no distress, no accessory muscle use, lungs are clear to auscultation, no wheezing, rales or rhonchi Back: non-tender GI: Soft and nontender Musculoskeletal: The left knee has erythema on the anterior surface but there is no open area or drainage. The left knee is larger than the right. Neurological: Awake and alert, tremorous Psychiatric: Cooperative Constitutional Vital Signs, click to edit/add: Last Vital Signs Temp 98.6 F 01/18/25 20:54 Pulse 110 H 01/18/25 20:54 Resp 18 01/18/25 20:54 BP 110/71 01/18/25 22:30 Pulse Ox 94 L 01/18/25 22:20 O2 Del Method Nasal Cannula 01/18/25 20:54 O2 Flow Rate 2 01/18/25 20:54 Course Vital Signs Vital signs: Vital Signs Temperature 98.6 F 01/18/25 20:54 Pulse Rate 110 H 01/18/25 20:54 Respiratory Rate 18 01/18/25 20:54 Blood Pressure 132/80 01/18/25 20:54 Pulse Oximetry 93 L 01/18/25 20:54 Oxygen Delivery Method Room Air 01/18/25 20:54 Oxygen Delivery Flow Rate 2 01/18/25 20:54 Temperature 98.6 F 01/18/25 20:54 Pulse Rate 110 H 01/18/25 20:54 Respiratory Rate 18 01/18/25 20:54 Blood Pressure 110/71 01/18/25 22:30 Pulse Oximetry 94 L 01/18/25 22:20 Oxygen Delivery Method Nasal Cannula 01/18/25 20:54 Oxygen Delivery Flow Rate 2 01/18/25 20:54 Medical Decision Making MDM Narrative Medical decision making narrative: The patient is found to have acute kidney injury. His creatinine is 2.91 and potassium is normal at 4.9. He is given IV fluids for that issue. Influenza and COVID test are negative. He has had a cough and his O2 sats were 89 to 90% on room air. Chest x-ray suggest atelectasis versus pneumonia. Blood cultures were obtained and he was given IV Rocephin and Zithromax. Lactic acid level is pending. He is unable to ambulate and will likely need rn social services consult. He has an appointment with his orthopedist in [place] on January 24. This knee issue is not new for him. He is known to have hardware malfunction with breakage of his prosthesis. Treatment diagnosis and disposition were discussed with the patient. Differential Diagnosis Differential Diagnosis: Dehydration, UTI, ELIZABETH, pneumonia Lab Data Lab results reviewed: Yes I reviewed the patient's lab results Labs: Lab Results 01/18/25 01/18/25 Range/Units 21:13 22:32 WBC 12.0 H (4.0-11.0) 10^3/uL RBC 3.93 L (4.70-6.10) 10^6/uL Hgb 12.6 L (14.0-18.0) g/dL Hct 36.5 L (42.0-54.0) % MCV 92.9 (80.0-94.0) fL MCH 32.1 (25.9-34.0) pg MCHC 34.5 (29.9-35.2) g/dL RDW 13.5 (11.0-15.0) % Plt Count 212 (150-450) 10^3/uL MPV 9.2 L (9.5-13.5) fL Neut % (Auto) 79.5 H (43.0-75.0) % Lymph % (Auto) 9.8 L (20.5-60.0) % Barber % (Auto) 8.4 (1.7-12.0) % Eos % (Auto) 1.6 (0.9-7.0) % Baso % (Auto) 0.2 (0.2-2.0) % Neut # (Auto) 9.6 H (1.4-6.5) 10^3/uL Lymph # (Auto) 1.2 (1.2-3.8) 10^3/uL Barber # (Auto) 1.0 H (0.3-0.8) 10^3/uL Eos # (Auto) 0.2 (0.0-0.7) 10^3/uL Baso # (Auto) 0.0 (0.0-0.1) 10^3/uL Abs Immat Gran (auto) 0.06 H (0.00-0.03) 10^3/uL Imm/Tot Granulo (auto) 0.5 (0.0-0.5) % Sodium 130 L (136-145) mmol/L Potassium 4.9 (3.5-5.1) mmol/L Chloride 97 L (98-107) mmol/L Carbon Dioxide 24.2 (21.0-32.0) mmol/L Anion Gap 13.7 BUN 35.0 H (7.0-18.0) mg/dL Creatinine 2.91 H (0.70-1.30) mg/dL Est GFR ( Amer) 26 L (>=60 mL/min/1.73m^2) Est GFR (Non-Af Amer) 22 L (>=60 mL/min/1.73m^2) BUN/Creatinine Ratio 12.0 Glucose 56 L (74-106) mg/dL Calcium 8.8 (8.5-10.1) mg/dL Influenza Type A Ag Negative Influenza Type B Ag Negative SARS-CoV-2 Ag (CV2AG) Negative (NEGATIVE) Imaging Data Chest x-ray, left knee x-ray: Radiologist's impression: Knee x-ray: No acute fracture, no acute dislocation, left total knee arthroplasty, small component of the arthroplasty situated along the medial aspect of the left knee joint and could represent a small fracture component Chest x-ray airspace disease in the left lower lung could represent atelectasis versus pneumonia ECG Data Attestation: I personally reviewed and interpreted this ECG as follows: (EKG on my interpretation shows sinus tachycardia with a rate of 106, some artifact, no acute change) Discharge Plan Discharge Chief Complaint: Extremity Problem, Nontraumatic Clinical Impression: Acute kidney injury, Pneumonia Patient Disposition: Admitted As Inpatient Time of Disposition Decision: 23:25 Condition: Fair
[2025-01-18 21:23] LABS: Basophils Percent Auto 0.2 % (0.2-2.0); Eosinophils Absolute Auto 0.2 10^3/uL (0.0-0.7); Eosinophils Percent Auto 1.6 % (0.9-7.0); Hematocrit 36.5 % (42.0-54.0); Hemoglobin 12.6 g/dL (14.0-18.0); Immature Granulocytes Abs Auto 0.06 10^3/uL (0.00-0.03); Immature Granulocytes Pct Auto 0.5 % (0.0-0.5); Lymphocytes Absolute Auto 1.2 10^3/uL (1.2-3.8); Lymphocytes Percent Auto 9.8 % (20.5-60.0); Mean Corpuscular HGB Conc 34.5 g/dL (29.9-35.2); Mean Corpuscular Hemoglobin 32.1 pg (25.9-34.0); Mean Corpuscular Volume 92.9 fL (80.0-94.0); Mean Platelet Volume 9.2 fL (9.5-13.5); Monocytes Percent Auto 8.4 % (1.7-12.0); Neutrophils Absolute Auto 9.6 10^3/uL (1.4-6.5); Neutrophils Percent Auto 79.5 % (43.0-75.0); Platelet Count 212 10^3/uL (150-450); Red Blood Count 3.93 10^6/uL (4.70-6.10); Red Cell Distribution Width 13.5 % (11.0-15.0)
[2025-01-18 21:31] LABS: Anion Gap 13.7; Calcium 8.8 mg/dL (8.5-10.1); Carbon Dioxide 24.2 mmol/L (21.0-32.0); Chloride 97 mmol/L (98-107); Estimated GFR (African America 26 (>=60 mL/min/1.73m^2); Estimated GFR (Non-African Ame 22 (>=60 mL/min/1.73m^2); Glucose 56 mg/dL (74-106); Potassium 4.9 mmol/L (3.5-5.1); Sodium 130 mmol/L (136-145)
[2025-01-18] MEDS: KETOROLAC TROMETHAMINE 30 MG/ML VIAL IVP (21:33)
[2025-01-18] MEDS: BACITRACIN 0.9 GM PACKET 1 PACKET TOPICAL (21:33)
[2025-01-18 22:52] LABS: Influenza Virus A Antigen Negative; Influenza Virus B Antigen Negative; Internal Control Within Normal Limits; SARS-CoV-2 Ag NEGATIVE (NEGATIVE)
[2025-01-18] MEDS: 0.9 % SODIUM CHLORIDE 1,000 ML 200 ML IV (23:16)
[2025-01-18] MEDS: CEFTRIAXONE 1,000 MG in 0.9 % SODIUM CHLORIDE 50 ML 100 MG IV (23:44)
[2025-01-18] MEDS: AZITHROMYCIN 500 MG in 0.9 % SODIUM CHLORIDE 250 ML 250 MG IV (23:44)
[2025-01-18] MEDS: HYDROCODONE/ACET 5-325 MG TABLET 1 TAB PO (23:58)
[2025-01-19] VITALS (23 sets, daily range): BP systolic 99–126; BP diastolic 56–69; PULSE 80–103; TEMP 36.1–36.8; O2SAT 81–97; BMI 35.8
[2025-01-19 00:03] LABS: Lactate/Lactic Acid 2.3 mmol/L (0.4-2.0)
--- OUTSIDE RECORDS SUMMARY | 2025-01-19 00:11 | XMS_ITS | CCD ---
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 Name Role Phone PHYSICIAN, DEFAULT Unavailable Unavailable PHYSICIAN, DEFAULT Unavailable Unavailable Regan Ortega Primary Care Provider [phone] [place] Unavailable Marlin Vasquez Unavailable Regan [...] Unavailable Shaikh Grove MD Primary Care Provider Shaikh Grove MD Unavailable Shaikh Grove MD Primary Care Provider SHELLY GROVEIKH Primary Care Unavailable Derrick Buck Referring Unavailable Derrick Buck Attending Derrick Carreon Admitting Unavailable POLLYJOSE ORTEZ Attending Unavailable SHAIKH GROVE Referring Unavailable SHAIKH GROVE Primary Care Unavailable Regan Ortega Mame Primary Care Provider [phone] [facility], Linh Nichols Attending U christiano Grove MD, [facility], Linh Nichols Attending U Derrick Christian MD Attending Unavailmame Grove MD, [facility] Jennifer Cespedes MD, Johnny Pearson Attending Federico Grove MD, [facility], Linh Nichols Attending U [facility], Linh Nichols Attending U christiano Grove MD, [facility], Linh Nichols Attending U christiano Cespedes MD, Johnny Pearson Attending Unavailable [facility] Linh Nichols Attending U christiano Marie PA-C, Starla Delcid Consulting Unavailable Tatiana WATERMAN, Claudia Hall Admitting Jennifer Simpson MD, Claudia Hall Attending Jennifer Cespedes MD, Johnny Pearson Consulting Unavailable Justin Mcgowan MD Consulting Unavailable Duong Maguire DO Admitting Unavailable Duong Maguire DO Attending Federico Grove MD, [facility] Justin Bacon MD Consulting Unavailable Jimmy Elliott PA-C Consulting UnavailJosef Suggs MD Consulting Unavailmame Marie PA-C, Starla L Consulting Unavailable Rubina WATERMAN, Johnny Pearson Consulting Unavailable [facility], Linh Nichols Attending U christiano Cespedes MD, Johnny Pearson Attending Unavailable [place] WATERMAN, [facility], Linh Nichols Attending U christiano Grove MD, [facility] Unavai lable [facility] DIRECTOR DENTAL SERVICES-CHART CALCULATOR, Lucía Delcid Attending Una cheyenne Beaulieu MD, Derrick Coates Attending Unavaila ble [place] DIRECTOR DENTAL SERVICES-CHART CALCULATOR, Lucía Delcid Attending Unav ailable [place] DIRECTOR DENTAL SERVICES-CHART CALCULATOR, Linh Nichols Attending U [facility] hospital[facility] DIRECTOR DENTAL SERVICES-CHART CALCULATOR, Linh Nichols Attending U christiano Cespedes MD, Johnny Pearson Attending Unavailable [place] WATERMAN, [facility]AL [facility], Linh Nichols Attending U [facility] DIRECTOR DENTAL SERVICES-CHART CALCULATOR, Linh Nichols Attending U [facility] DIRECTOR DENTAL SERVICES-CHART CALCULATOR, Linh Nichols Attending U [facility]havi[facility]pan[facility] fork hospitalprakash Cespedes MD, Johnny Pearson Attending Unavailable [place] WATERMAN, [facility] cody Grove MD, [facility] DIRECTOR DENTAL SERVICES-[facility], Linh Nichols Attending U christiano Cespedes MD, Johnny Pearson Attending Unavailable [place] WATERMAN, [facility], Linh Nichols Attending U christiano Cespedes MD, Johnny Pearson Attending Unavailable [place] WATERMAN, [facility] JUSTIN Bacon Referring Unavailable SHELLY GROVEIKH Primary Care Unavailable JUSTIN MCGOWAN Referring Unavailable SHAIKH GROVE Primary Care Unavailable JUSTIN MCGOWAN Referring Unavailable SHAIKH GROVE Primary Care Unavailable JUSTIN MCGOWAN Referring Unavailable SHAIKH GROVE Primary Care Unavailable AMBER RAYGOZA Referring Unavailable SHAIKH GROVE Primary Care Unavailable AMBER RAYGOZA Referring Unavailable SHAIKH GROVE Primary Care Unavailable Justin Mcgowan MD Unavailable Shaikh Grove MD Unavailable Priyank RADIOGRAPHER ANGIOGRAM, Shaniqua Unavailable Joshua WATERMAN, Regan Primary Care Provider Bert SWIFT TENDER, Daria Unavailable [phone] Joshua WATERMAN, Regan Unavailable Unallocated , [place] Provider Primary Care Provi arthur Joshua WATERMAN, Regan Primary Care Provider Joshua WATERMAN, Regan Primary Care Provider Hany Mack MA Unavailable Unavailable Joshua WATERMAN, Regan Unavailable Adrián Ellison LPN Unavailable Unavailable Joshua WATERMAN, Regan Vilchis Primary Care Provider Juan M WATERMAN, Justin Villasenor Unavailable REGAN ORTEGA Primary Care Unavailable CARMEN WILLIAM Attending Unavailable REGAN ORTEGA Primary Care Unavailable ROBERTO BRITO Referring Unavailable PARTHA JACKSON Attending Unavailable REGAN ORTEGA Primary Care Unavailable REGAN ORTEGA Primary Care Unavailable PARTHA JACKSON Attending Unavailable Sue WATERMAN, Noms Provider Primary Care Provi arthur GRANT SHETH Attending Unavailable MRACO IZQUIERDO Attending Unavailable NOELDARIA Referring Unavailabl e NOEL, DARIA Attending UnavailGRANT Lux Attending Unavailable ABBI DELGADO Attending Unavailable NOEL, DARIA Referring Unavailabl e NOEL, DARIA Attending Unavailabl e NOELDARIA Attending Unavailabl e GRANT SHETH Attending Unavailable NOEL, DARIA Attending Unavailabl e SHAIKH GROVE Attending Unavailable FAWSHAIKH JUNE Attending Unavailable SHAIKH GROVE Attending Unavailable NOEL, DARIA Attending Unavailabl e NOEL, DARIA Attending Unavailabl e CHUN ROSADO Referring Unavailable DERRICK BARNETT Attending Unavailable CHUN ROSADO Attending Unavailable DERRICK BARNETT Referring Unavailable DERRICK BARNETT Referring Unavailable DERRICK BARNETT Referring Unavailable DERRICK BARNETT Referring Unavailable DERRICK BARNETT Referring Unavailable CHUN ROSADO Referring Unavailable Allergies Allergy Classification Reported Allergen(s) Allergy Type Date of Onset Reaction(s) Facility (20 sources) Morphine; 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: [morphine] Drug Allergy 05-25-20 14 Rash, Itching [facility] (9 sources) Penicillins; 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: [PENICILLINS] Drug Allergy 01-17-20 15 Itching [facility] (20 sources) Bee Sting; 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: [Bee sting] Allergy to substance 08-18-20 18 Swelling, Anaphylaxis [facility] (6 sources) Amoxicillin / Clavulanate Drug Allergy rash [facility] [place] Other (10 sources) Bee/Wasp/Ant venom; 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: [Bee Stings] Propensity to adverse reactions Difficulty breathing (finding) [facility] (8 sources) cefdinir Drug Allergy Panic Attacks, Palpitations, SOB [facility] [place] Other (15 sources) Penicillins Drug Allergy 01-17-20 15 Itching [facility] (1 source) Acetaminophen / HYDROcodone Drug Allergy [facility] (1 source) bee venom Drug allergy (disorder) 09-23-20 16 [facility] (1 source) Morphine Drug Allergy 05-12-20 14 [facility] (1 source) Penicillins Drug allergy (disorder) 01-17-20 15 [facility] (2 sources) Amoxicillin / Clavulanate Drug Allergy rash [facility] [place] Other (1 source) Amoxicillin Drug Allergy 06-02-20 23 [facility] (1 source) cefdinir Drug Allergy 06-02-20 23 [facility] (1 source) Clavulanate Drug Allergy 06-02-20 23 [facility] (1 source) Morphine Drug Allergy 11-04-19 24 [facility] (3 sources) bee venom protein (honey bee); 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: [BEE VENOM PROTEIN (HONEY BEE)] Drug allergy (disorder) 08-18-20 18 [facility] (20 sources) Honey bee venom; 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: [bee venom] Propensity to adverse reactions 03-25-20 23 Anaphylaxis [facility] (20 sources) Acetaminophen / HYDROcodone; 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: [HYDROCODONE-ACET AMINOPHEN] Drug Allergy 02-02-20 21 Nausea Only [facility] Repository (1 source) No Known Medication Allergies; 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: [No Known Medication Allergies] Propensity to adverse reactions to drug (disorder) [facility] Rep[facility] (1 source) ALLERGIES NOT ON FILE; 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: [ALLERGIES NOT ON FILE] Propensity to adverse reactions (disorder) [facility] Repository Medications Current Medications Medication Drug [...] every 8 hours as needed for pain. [id number] 200 actuat albuterol 0.09 mg/actuat metered dose [...] neuropathy, without long-term current use of insulin ([facility]) Test daily before all meals/snacks and [...] Start: 04-09-2022 take 1 capsule by mo [facility] every twelve hours Doxycycline Hyclate 100 MG 1 capsule Orally Twice a day for 10 day(s) Mar, Active Comment on above: [facility] for 10 days. famotidine 20 [...] neuropathy, without long-term current use of insulin ([facility]) , Medication refill Take 1 tablet [...] 01/01/2024 Active take 1 capsule by mo [facility] three times daily gabapentin (NEURONTIN) 300 mg [...] 2 diabetes mellitus with diabetic neuropathy, unspecified ([facility]/HCC) TAKE 1 TABLET BY MOUTH EVERY 12 [...] Active Start: 03-27-2023 take 1 capsule by [facility] once daily levothyroxine 125 mcg (0.125 mg) [...] Daily 0 Active take 1 capsule by [facility] once daily before [...] days, # 50 tab(s), Refills(s) 2, Pharmacy: [facility], 187.5, cm, 03/27/23 9:49:00 EDT, Height/Length [...] 12-29-2023 Chronic Other aftercare (1 source) 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 Barnett would like to change this to a Ct instead. [facility] number is [phone] [facility] 36on 01-03-2025 36 [facility] called and states they need a creatnin order sent over for patients MRI that is on Thursday the . Provided fax [phone] [facility] 2912-22-2024 29 Addended by: FÁTIMA CHERRY on: 12/26/2024 12:52 PM Modules accepted: Orders [facility] Follow-Upon 12-22-2024 Follow-Up [id number] Joie Lu 1955 M Date Provider Department Center 12/22/2024 DERRICK CROWE MP ORTHO MPORTHO No family history on file Level of Service:88382 [place] OFFICE/OUTPATIENT ESTABLISHED HIGH MDM 40 MIN (GC) Reason for Visit and Comments: Pain [136] [facility] MLR HEMOGLOBIN A1Con 025 Glucose [Mass/Vol] 131 mg/dL [facility] chelseyjennifer HbA1c (Bld) [Mass fraction] 6.2 % 4.5 - 6.2 % [facility] Comment on above: ADA RECOMMENDED LIMI T 4.0 - 6.0 ADA THERAPEUTIC TARGET < 7.0 ACTION SUGGESTED > 7.0 [facility] Healthcar e 36on 12-01-2024 36 Patient called and states he received a call from fátima stating he needed to be seen today, and he had to cancel. Backhoe Operator placed him in slot for first available and stated I would put a note back to verify, and he could be rescheduled once this is done. Patient number is [phone] [facility] 36on 11-28-2024 36 Patient states the disc was already here since he seen Dr. Rosado and it was given to him along with the MRI report. He lives 2 [place] away and wants to make sure he can be seen before coming all the back here. Is there any way to verify this? Please advise at [phone] [facility] JOIE LU JR ([id number]) 1955 M Date Time Provider Department 11/11/24 [...] Clostridium difficile infection [Z86.19] 12/01/2012 DVT prophylaxis [VTF0856] 12/01/2012 Metatarsalgia [M77.40] 01/23/2014 Infection and inflammatory [...] sinusitis [J01.11] (more content not included)... Normal [facility] CNPNon 11-10-2024 CNPN Telephone (OTOLMN) JOIE LU JR ([id number]) 1955 M Date Time Provider Department 11/10/24 [...] answer, LM relaying that Partha is in [place] that day and to call back with what he would like to to. Isiah Warner 11/10/2024 12:41 PM Signed Person Calling: Juan José Reason for Call: pt wants to reschedule visit with Partha to 12/12 or 12/13 but wants to know if she can refill his meds until then Pt Phone #: [phone] Pharmacy Name and # : Pt last [...] Clostridium difficile infection [Z86.19] 12/01/2012 DVT prophylaxis [RHN8331] 12/01/2012 Metatarsalgia [M77.40] 01/23/2014 Infection and inflammatory reaction due to unsp*05/08/2014 Left wrist pain [M25.532] 10/09/2014 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] 10/09/2014 Carpal tunnel syndro (more content not included)... Normal [facility] 36on 10-13-2024 36 Spoke with patient. Relayed message. Patient is going to call his surgeon in [place]. NO further action is needed. [facility] 36 LVM TO CALL BACK TO DISCUSS [facility] 36on 10-10-2024 [address] rosado [facility] 36 Patient got his MRI done and would like to be seen sooner due to the Mass getting bigger after reading your note I didn't know if you want to book him a appt to see you or with someone else. [facility] 36on 10-07-2024 36 Patient would like to be squeezed in sooner due to the mass on his leg growing in size, Backhoe Operator doesn't have ability to double book at this time. Please contact patient at [phone] [facility] Telephoneon 10-07-2024 Telephone [id number] Joie Lu 1955 M Date Provider Department Center 10/07/2024 [id number] DIAZ MP ORTHO MPORTHO No family history on file Reason for Visit and Comments: Appointment [375] [facility] 36on 10-05-2024 36 Neris Low (PCP) nurse called and would like confirmation if we can give results to the patient about his xray. Backhoe Operator told her we could not give results over the phone but I would put a message back to let you know he has been calling their office everyday to ask them for these results, provider doesn't feel comfortable sharing results with him. He is scheduled for 11/21/[address] Rosado [facility] Telephoneon 10-05-2024 Telephone [id number] Joie Lu F 1955 Date Provider Department Center 10/05/2024 [id number] DIAZ MP MPORTHO No family history on file Reason for Visit and Comments: Results [95] [facility] MR KNEE LEFT WO CONTRASTon 1 [...] joint particle disease Electronically signed: William Jung. [facility] Office Visiton 09-12-2024 Follow-up visit [id number] Joie Lu 1955 M Date Provider Department Center 09/12/2024 CHUN ROLAND MP ORTHO MPORTHO No family history on file Level of Service:[id number] [place] OFFICE/OUTPATIENT NEW MODERATE MDM 45 MINUTES (GC) Reason for Visit and Comments: New Patient [632] New Patient [632] - Second opinion Large Mass on the inside of knee Normal [facility] OCCULT BLOOD*on 08-20-2024 TB OCCULT BLOOD [...] 39.7 % Low 42.0 - 54.0 % [facility] Healthcar e Hemoglobin (Bld) [Mass/Vol] 13.4 g/dL Low 14.0 - 18.0 g/dL [facility] IMMATURE GRANULOCYTES ABS AUTO 0.06 High [facility] Immature granulocytes/100 WBC (Bld) 0.6 % High 0.0 - 0.5 % [facility] Interpretation and review of laboratory results Abnormal [facility] LYMPHOCYTES ABSOLUTE AUTO 1.9 [facility] Lymphocytes/100 WBC (Bld) 18.7 % Low 20.5 - 60.0 % [facility] MCH (RBC) [Entitic mass] 30 [...] Knee Patient had X ray done at [facility] 07/22/24 Patient had Bilaterial knee replacement right knee antibotic spacer done on Right- 2022 [facility] 2018 @ [facility] by [facility] Dr. Cassy Escamilla and [facility] in [place] Patient saw (see above) for this issues. They were not referred to us from this provider. This appointment is a second opionion This appointment IS NOT related to a work related injury Normal [facility] CNOVon 07-22-2024 CNOV Office Visit (ORTHMN) LUJOIE Judie SILVA ([id number]) 1955 M Date Time Provider Department 07/22/24 [...] or sweats. He was referred to the [facility] for evaluation and consideration of further surgery. 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 Review of Systems ACTIVE PROBLEM LIST Acute Pain of Left Knee Septic arthritis of knee, left ([facility]) Type 2 Diabetes Mellitus Without Complication, Without Long-Term Current Use of Insulin ([facility]) Hypothyroidism Hyperlipidemia Htn (Hypertension) Gout Wrist Arthritis Pneumonia Elevated Lfts Pulmonary Nodule H/O Clostridium Difficile Infection Dvt Prophylaxis Metatarsalgia Infection and Inflammatory Reaction Due to Unspecified Device, Implant, and Graft Left Wrist Pain Arthritis of Left Wrist Carpal Tunnel Syndrome Diabetic Neuropathy, Painful ([facility]) Arthralgia of Right Lower Leg History of Transmetatarsal Amputation of Right Foot ([facility]) Mixed Conductive and Sensorineural Hearing Loss of Right Ear With Restricted Hearing of Left Ear Sensorineural Hearing Loss (Snhl) of Left Ear With Restricted Hearing of Right Ear 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 Tinnitus, Right Ear Anxiety Obesity Chronic Back Pain Chronic Obstructive Lung Disease ([facility]) Depressive Disorder 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 Musculature Postoperative Pain Other Chronic Sinusitis Acute Recurrent Frontal Sinusitis Community Acquired Pneumonia of Left Lower Lobe of Lung Abscess of Knee, Left Knee Swelling Sutton's Cyst of Knee, Left PAST MEDICAL HISTORY Diagnosis Date Depression DM type 2 (diabetes mellitus, type 2) ([facility]) Fracture Gout H/O Clostridium difficile infection 10/2012 History of cholecystectomy HTN (hypertension) Hyperlipidemia Hypothyroidism 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 Normal [facility] XR KNEE 4V AP/PA/LAT/MERCH B ILon 07-22-2024 [...] Postoperative changes of the knees as described. Power Generating Plant Operator: PSCB Transcribe Date/Time: Jul 22 2024 10:43A Dictated by : DERRICK SIMS MD This examination was interpreted and the report reviewed and electronically signed by: DERRICK SIMS MD on Jul 22 2024 10:45AM EST [id number] Normal [facility] XR Knee - bilateral 4 Viewso n 07-22-2024 IMPRESSION: Postoperative changes of the knees as described. Power Generating Plant Operator: PSCB Transcribe Date/Time: Jul 22 2024 10:43A [...] no bony erosions. DIVISION OF RADIOLOGY Provider, [facility] Icard - 07/22/2024 * * *Final Report* * [...] Postoperative changes of the knees as described. Power Generating Plant Operator: PSCB Transcribe Date/Time: Jul 22 2024 10:43A Dictated by : DERRICK SIMS MD This examination was interpreted and the report reviewed and electronically signed by: DERRICK SIMS MD on Jul 22 2024 10:45AM EST [facility] Radiology Study observation (narrative) [facility] XR Knee - bilateral 4 ViewsO rdered By: Ccf Provider on 07-22-2024 [facility] ALL CBC WITH AUTO DIFFon BASOPHILS ABSOLUTE AUTO 0.1 [facility] Basophils/100 WBC (Bld) 1.0 % 0.2 - 2.0 % [facility] Eosinophils/100 WBC (Bld) 5.5 % 0.9 - 7.0 % [facility] Erythrocyte distribution width (RBC) [Ratio] 12.4 % 11.0 - 15.0 % [facility] Hematocrit (Bld) [Volume fraction] 38.6 % Low 42.0 - 54.0 % [facility] Hemoglobin (Bld) [Mass/Vol] 13.3 g/dL Low 14.0 - 18.0 g/dL [facility] IMMATURE GRANULOCYTES ABS AUTO 0.02 [facility] Immature granulocytes/100 WBC (Bld) 0.3 % 0.0 - 0.5 % [facility] Interpretation and review of laboratory results Abnormal [facility] LYMPHOCYTES ABSOLUTE AUTO 1.7 [facility] Lymphocytes/100 WBC (Bld) 23.8 % 20.5 - 60.0 % [facility] MCH (RBC) [Entitic mass] 29.6 pg 25.9 - 34.0 pg [facility] MCHC (RBC) [Mass/Vol] 34.5 g/dL 29.9 - 35.2 g/dL [facility] MCV (RBC) [Entitic vol] 86.0 fL 80.0 - 94.0 fL [facility] MONOCYTES ABSOLUTE AUTO 0.5 [facility] Monocytes/100 WBC (Bld) 7.5 % 1.7 - 12.0 % [facility] NEUTROPHILS ABSOLUTE AUTO 4.4 [facility] Neutrophils/100 WBC (Bld) 61.9 % 43.0 - 75.0 % [facility] Platelet mean volume (Bld) [Entitic vol] 9.2 fL Low 9.5 - 13.5 fL [facility] are TBH EO # 0.4 [facility] TBH PLT 197 [facility] TB RBC 4.49 Low [facility] TB WBC 7.1 [facility] Hemoglobin A1Con 07-04-2024 Average glucose Estimated from glycated hemoglobin (Bld) [Mass/Vol] 186 mg/dL [facility] Comment on above: The ADA and AACC rec ommend providing the estimated average glucose result to permit better patient understanding of their HBA1c result. HbA1c (Bld) [Mass fraction] 8.1 % High 4.0 - 6.0 % [facility] Interpretation and review of laboratory results Abnormal [facility] Glucose [Mass/Vol] 186 mg/dL Normal [facility] Comment on above: Result Comment: The ADA and AACC recommend providing the estimated average glucose result to permit better patient understanding of their HBA1c result. Performed By: #### G LYHGB #### [address] [place], [place] [id number] Poultry Raiser: Glenn Noyola MD HbA1c (Bld) [Mass fraction] 8.1 % High 4.0-6.0 [facility] Comment on above: Performed By: #### G LYHGB #### [address] [place], [place] [id number] Poultry Raiser: Glenn Nyoola MD MHPT HEMOGLOBIN A1Con 2023 Glucose [Mass/Vol] 186 mg/dL [facility] Comment on above: The ADA and AACC rec ommend providing the estimated average glucose result to permit better patient understanding of their HBA1c result. HbA1c (Bld) [Mass fraction] 8.1 % High 4.0 - 6.0 % [facility] Healthcare Interpretation and review of laboratory results Abnormal [facility] Healthcare Original Ordering Provider: [facility] Healthcar e Cult,Fluidon 06-18-2024 Cult,Fluid Specimen Description .KNEE RIGHT Special Requests RT KNEE SEROSANGUINEOUS FLUID Direct Exam NO NEUTROPHILS SEEN NO BACTERIA SEEN Gram stain made from cytocentrifuged specimen. Organisms and cells will be concentrated. Culture NO GROWTH 5 DAYS Report Status FINAL 06/18/2024 Normal [facility] Comment on above: Performed By: #### F LCU #### [address] [place], [place] [id number] Poultry Raiser: Glenn Noyola MD [address] [place] [address] Poultry Raiser: Oliver Cabrera MD Cult,Fluid Specimen Description .KNEE LEFT Direct Exam MODERATE NEUTROPHILS NO ORGANISMS SEEN Gram stain made from cytocentrifuged specimen. Organisms and cells will be concentrated. Culture NO GROWTH 5 DAYS Report Status FINAL 06/18/2024 [facility] Comment on above: Performed By: #### F LCU #### [address] [place] [address] Poultry Raiser: Glenn Noyola MD [address] [place] [address] Poultry Raiser: Oliver Cabrera MD C-Reactive Proteinon 024 CRP [Mass/Vol] mg/L Normal 0.0-5.0 [facility] Comment on above: Performed By: #### S ED, CRP #### [address] [place] [address] Poultry Raiser: Oliver Cabrera MD Fluid Cell Count and Diffon 06-13-2024 Basophils Normal 0 [facility] Comment on above: Performed By: #### F LDCT #### [facility] [address] [place], [place] [id number] Poultry Raiser: Oliver Cabrera MD Eosinophils Normal 0 [facility] Comment on above: Performed By: #### F LDCT #### [facility] [address] [place], [place] [address]83 Poultry Raiser: Oliver Cabrera MD Lymphocytes/100 WBC (Bld) 78 % High 0 [facility] Comment on above: Performed By: #### F LDCT #### [facility] [address] [place], [place] [id number] Poultry Raiser: Oliver Cabrera MD Dixie/Macrophage Normal [address] [facility] Comment on above: Performed By: #### F LDCT #### [facility] [address] [place], [place] [id number] Poultry Raiser: Oliver Cabrera MD Neutrophils/100 WBC (Bld) 22 % High 0 [facility] Comment on above: Performed By: #### F LDCT #### [facility] [address] [place], [place] [id number] Poultry Raiser: lOiver Cabrera MD Other Cells Normal [address] [place] [address] Comment on above: Performed By: #### F LDCT #### [facility] [address] [place], [place] 4883283 Poultry Raiser: Oliver Cabrera MD Basophils Normal 0 [facility] Comment on above: Performed By: #### F LDCT #### [facility] [address] [place], [place] [id number] Poultry Raiser: Oliver Cabrera MD Eosinophils Normal 0 [facility] Comment on above: Performed By: #### F LDCT #### [facility] [address] [place] [address] Poultry Raiser: Oliver Cabrera MD Lymphocytes/100 WBC (Bld) 56 % High 0 [facility] Comment on above: Performed By: #### F LDCT #### [facility] [address] [place], [facility]83 Poultry Raiser: Oliver Cabrera MD Dixie/Macrophage Normal [address] [facility] Comment on above: Performed By: #### F LDCT #### [facility] [address] [place], [facility]83 Poultry Raiser: Oliver Cabrera MD Neutrophils/100 WBC (Bld) 44 % High 0 [facility] Comment on above: Performed By: #### F LDCT #### [facility] [address] [place] [id number] Poultry Raiser: Oliver Cabrera MD Other Cells Normal [address] [place] [address] Comment on above: Performed By: #### F LDCT #### [facility] [address] [place] [phone] Poultry Raiser: Oliver Cabrera MD Appearance (U) Cloudy Normal [facility] in Hospital Comment on above: Performed By: #### F LDCT #### [facility] [address] [place] [phone] Poultry Raiser: Oliver Cabrera MD Color (U) Red Normal [facility] Comment on above: Performed By: #### F LDCT #### [facility] [address] [place], [place] [address] Poultry Raiser: Oliver Cabrera MD RBC (Bld) [#/Vol] 0.016 10*6/uL Normal [facility] Comment on above: Performed By: #### F LDCT #### [facility] [address] [place] [address] Poultry Raiser: Oliver Cabrera MD WBC (Bld) [#/Vol] 0.554 10*3/uL Normal [facility] Comment on above: Performed By: #### F LDCT #### [facility] [address] [place], [place] 113[address]3 Poultry Raiser: Oliver Cabrera MD Appearance (U) Cloudy Normal [facility] Comment on above: Performed By: #### F LDCT #### [facility] [address] [place], [place] 1818383 Poultry Raiser: Oliver Cabrera MD Color (U) Red Normal [facility] Comment on above: Performed By: #### F LDCT #### [facility] [address] [place], [place] [id number] Poultry Raiser: Oliver Cabrera MD RBC (Bld) [#/Vol] 0.054 10*6/uL [facility] Comment on above: Performed By: #### F LDCT #### [address] [place], [place] 8438483 Poultry Raiser: Oliver Cabrera MD WBC (Bld) [#/Vol] 0.287 10*3/uL [facility] Comment on above: Performed By: #### F LDCT #### [address] [place], [place] 285[address]83 Poultry Raiser: Oliver Cabrera MD Type of Specimen SEROSANGUINEOS FLUID Normal [facility] Comment on above: Result Comment: LEFT KNEE Performed By: #### F LDCT #### [address] [place], [place] 8[address]83 Poultry Raiser: Oliver Cabrera MD Type of Specimen SEROSANGUINEOUS [facility] Comment on above: Result Comment: RT K NEE Performed By: #### F LDCT #### [facility] [address] [place] [address] Dr[place], [place] 3792783 Poultry Raiser: Oliver Cabrera MD MHPT SEDIMENTATION RATEon MHPT SEDIMENTATION RATE 2 [facility] Original Ordering Provider: [facility]AN [facility] Rateon 024 Sedimentation Rate 2 mm/Hr Normal 0-20 [facility] Comment on above: Performed By: #### S ED, CRP #### [facility] [address] [place] [address] Poultry Raiser: Oliver Cabrera MD CNOVon 05-27-2024 CNOV Office Visit (OTOLMN) JOIE LU JR ([id number]) 1955 M Date Time Provider Department 05/27/24 [...] on it. His PCP left and the SWIFT TENDER refused to write it for him. The [...] - L (more content not included)... Normal [facility] 05-25-2024 [facility] Telephone (HNQ) JOIE LU JR ([id number]) 1955 M Date Time Provider Department 05/25/24 PARTHA JACKSON HNQ During your visit today, we recorded the following information about you: Nichol Whittington 05/25/2024 9:55 AM Signed Person Calling: Patient Reason for Call: Patient is asking should he be worried about seizures since he cannot get his clonazepam until after his appt on 06/28. Please call Pt Phone #: [phone] Pharmacy Name and # : Pt last [...] HTN (hy (more content not included)... Normal [facility] Infectious Disease Office/Cl inic Noteon 05-05-2024 Infectious Disease Office/Clinic Note Normal [facility] Gastroenterology Office/Clin ic Noteon 04-14-2024 Gastroenterology Office/Clinic Note Normal [facility] Provider Letteron 04-14-2024 Provider Letter Normal [facility] Infectious Disease Office/Cl inic Noteon 04-04-2024 Infectious Disease Office/Clinic Note Normal [facility] Provider Letteron 04-04-2024 Provider Letter Normal [facility] Infectious Disease Office/Cl inic Noteon 03-21-2024 Infectious Disease Office/Clinic Note Normal [facility] Provider Letteron 03-21-2024 Provider Letter Normal [facility] Infectious Disease Office/Cl inic Noteon 03-07-2024 Infectious Disease Office/Clinic Note Normal [facility] C Fungalon 03-03-2024 C Fungal ------- Final No growth at 4 weeks. Normal [facility] Comment on above: Performed By: #### F [place] ####[address] [place] [address] C Fungalon 03-02-2024 C Fungal ------- Final No growth at 4 weeks. Normal [facility] Comment on above: Performed By: #### F [place] ####[address] [place] [address] Infectious Disease Office/[facility] Noteon 02-25-2024 Infectious Disease Office/Clinic Note Normal [facility] C ANAon 02-18-2024 C BRANDON ------- Final No anaerobic organisms isolated at 2 weeks [facility] Comment on above: Performed By: #### A ALFONSO ####[address] [place] [address] [place] TAYLOR ------- Final No anaerobic organisms isolated at 2 weeks Normal [facility] Comment on above: Performed By: #### A ALFONSO ####[address] [place] [address] C BRANDON ------- Final No anaerobic organisms isolated at 2 weeks Normal [facility] Comment on above: Performed By: #### A ALFONSO ###[address] [place] [address] C BRANDON ------- Final No anaerobic organisms isolated at 2 weeks Normal [facility] Comment on above: Performed By: #### Mame HAMILTON ###[address] [place] [address] C BRANDON ------- Final No anaerobic organisms isolated at 2 weeks Normal [facility] Comment on above: Performed By: Jayla### A ALFONSO ###[address] [place] [address] C Sterile BSon 02-18-2024 C Sterile BS ------- Final No growth at 2 weeks. Normal [facility] Comment on above: Performed By: Carlos## Jacklyn BONE ####[address] [place] [address] C Sterile BS ------- Final No growth at 2 weeks. Normal [facility] Comment on above: Performed By: #### S BS ####[place] [address] [place] [address] Send-out: Otheron 02-16-2024 Send-out Other See Report Normal [facility] Comment on above: Order Comment: Broad range PCR on synovial fluidnote: synovial fluid collected in eswab, can't use for test, per Linh Cheatham bone is fine, added on to bone collected at 1829 02/0202/04/2024 18:36:54 EDT [facility]: [facility] Name: Broad Range Bacterial PCR and SequencingTest Code: [id number] 02/05/2024 06:54:06 EDT AGS Result Comment: Miss ing Attachment Chartable Reference Lab Reports Can be viewed in source system Performed By: #### S OOTH ####[address] [address] .eGFRon 02-10-2024 GFR/1.73 sq M.predicted MDRD (S/P/Bld) [Vol rate/Area] mL/min/{1.73_m2} Normal >=60 [facility] Comment on above: Result Comment: [facility] [...] = years Performed By: #### E GFR ####[address] [address] Basic Metabolic Profileon Anion gap [Moles/Vol] 7 mmol/L Normal 4-12 [facility] Comment on above: Performed By: #### C [id number] ####[address] [address] Calcium [Mass/Vol] 8.6 mg/dL Normal 8.5-10.3 [facility] Comment on above: Performed By: #### C [id number] ####[address] [address] Chloride [Moles/Vol] 101 mmol/L Normal 98-110 [facility] Comment on above: Performed By: #### C D:[id number] ####[address] [address] CO2 [Moles/Vol] 26 mmol/L Normal 22-32 [facility] Comment on above: Performed By: #### C D:[id number] ####[address] [address] Creatinine [Mass/Vol] 1.09 mg/dL Normal 0.61-1.24 [facility] Comment on above: Performed By: #### C D:[id number] ####[address] [address] Glucose [Mass/Vol] 201 mg/dL High 70-99 [facility] Comment on above: Performed By: #### C D:[id number] ####[address] [address] Potassium [Moles/Vol] 4.9 mmol/L High 3.4-4.8 [facility] Comment on above: Performed By: #### C D:[id number] ####[address] [address] Sodium [Moles/Vol] 134 mmol/L Normal 133-142 [facility] Comment on above: Performed By: #### C [id number] ####[address] [address] Urea nitrogen [Mass/Vol] 18 mg/dL Normal 8-26 [facility] Comment on above: Performed By: #### C D:[id number] ####[address] [address] Urea nitrogen/Creatinine [Mass ratio] 16.5 mg/mg Normal 10.0-20.0 [facility] Comment on above: Performed By: #### C D:[id number] ####[address] [address] CBC w/ Diffon 02-10-2024 Erythrocyte distribution width (RBC) [Ratio] 16.7 % High 11.6-14.8 [facility] Comment on above: Performed By: #### C BC ####[address] [address] Hematocrit (Bld) [Volume fraction] 26.0 % Low 41.0-53.0 [facility] Comment on above: Performed By: #### C BC ####[address] [address] Hemoglobin (Bld) [Mass/Vol] 8.8 g/dL Low 13.5-17.5 [facility] Comment on above: Performed By: #### C BC ####[address] [address] MCH (RBC) [Entitic mass] 30.8 pg Normal 27.0-35.0 [facility] Comment on above: Performed By: #### C BC ####[address] [address] MCHC 34.0 % Normal 31.0-37.0 [facility] Comment on above: Performed By: #### C BC ####[address] [address] MCV (RBC) [Entitic vol] 90.6 fL Normal 80.0-100.0 [facility] Comment on above: Performed By: #### C BC ####[address] [address] Platelet 166 x10*3/mcL Normal 150-450 [facility] Comment on above: Performed By: #### C BC ####[address] [address] Platelet mean volume (Bld) [Entitic vol] 6.5 fL Low 6.7-10.6 [facility] Comment on above: Performed By: #### C BC ####[address] [address] RBC 2.87 x10*6/mcL Low 4.30-5.80 [facility] Comment on above: Performed By: #### C BC ####[address] [address] WBC 7.7 x10*3/mcL Normal 4.5-11.0 [facility] Comment on above: Performed By: #### C BC ####[address] [address] Diff Autoon 02-10-2024 Baso Absolute 0.1 x10*3/mcL Normal 0.0-0.2 [facility] Comment on above: Performed By: #### . Automated Diff ####[address] [address] Basophils/100 WBC (Bld) 0.8 % Normal 0.0-1.2 [facility] Comment on above: Performed By: #### . Automated Diff ####[address] [address] Eos Absolute 0.5 x10*3/mcL High 0.0-0.4 [facility] Comment on above: Performed By: #### . Automated Diff ####[address] [address] Eosinophils/100 WBC (Bld) 6.7 % High 0.0-6.1 [facility] Comment on above: Performed By: #### . Automated Diff ####[address] [address] Lymph Absolute 1.2 x10*3/mcL Normal 1.0-4.8 [facility] Comment on above: Performed By: #### . Automated Diff ####[address] [address] Lymphocytes/100 WBC (Bld) 15.6 % Low 27.2-40.8 [facility] Comment on above: Performed By: #### . Automated Diff ####[address] [address] Dixie Absolute 0.7 x10*3/mcL Normal 0.3-1.1 [facility] Comment on above: Performed By: #### . Automated Diff ####[address] [address] Monocytes/100 WBC (Bld) 8.7 % Normal 4.7-13.9 [facility] Comment on above: Performed By: #### . Automated Diff ####[address] [address] Neutro Absolute 5.3 x10*3/mcL Normal 1.8-7.7 [facility] Comment on above: Performed By: #### . Automated Diff ####[address] [address] Neutro Auto 68.2 % Normal 47.2-70.8 [facility] Comment on above: Performed By: #### . Automated Diff ####[address] [address] Magnesiumon 02-10-2024 Magnesium [Mass/Vol] 1.7 mg/dL Normal 1.7-2.4 [facility] Comment on above: Performed By: #### M G ####[place] [address] [place] [address] POC Glucose Randomon 024 Glucose [Mass/Vol] 273 mg/dL High 70-99 [facility] Comment on above: Performed By: #### C D:[id number] ####[address] [address] Glucose [Mass/Vol] 194 mg/dL High 70-99 [facility] Comment on above: Performed By: #### C D:[id number] ####[address] [address] .eGFRon 02-09-2024 GFR/1.73 sq M.predicted MDRD (S/P/Bld) [Vol rate/Area] mL/min/{1.73_m2} Normal >=60 [facility] Comment on above: Result Comment: [facility] [...] = years Performed By: #### E GFR ####[address] [address] Basic Metabolic Profileon Anion gap [Moles/Vol] 6 mmol/L Normal 4-12 [facility] Comment on above: Performed By: #### C D:[id number] ####[place] [address] [place] [address] Calcium [Mass/Vol] 8.7 mg/dL Normal 8.5-10.3 [facility] Comment on above: Performed By: #### C [id number] ####[address] [address] Chloride [Moles/Vol] 102 mmol/L Normal 98-110 [facility] Comment on above: Performed By: #### C D:[id number] ####[address] [address] CO2 [Moles/Vol] 27 mmol/L Normal 22-32 [facility] Comment on above: Performed By: #### C D:[id number] ####[address] [address] Creatinine [Mass/Vol] 0.84 mg/dL Normal 0.61-1.24 [facility] Comment on above: Performed By: #### C D:[id number] ####[address] [address] Glucose [Mass/Vol] 224 mg/dL High 70-99 [facility] Comment on above: Performed By: #### C D:[id number] ####[address] [address] Potassium [Moles/Vol] 5.0 mmol/L High 3.4-4.8 [facility] Comment on above: Performed By: #### C D:[id number] ####[address] [address] Sodium [Moles/Vol] 135 mmol/L Normal 133-142 [facility] Comment on above: Performed By: #### C D:[id number] ####[address] [address] Urea nitrogen [Mass/Vol] 20 mg/dL Normal 8-26 [facility] Comment on above: Performed By: #### C D:[id number] ####[address] [address] Urea nitrogen/Creatinine [Mass ratio] 23.8 mg/mg High 10.0-20.0 [facility] Comment on above: Performed By: #### C D:[id number] ####[address] [address] CBC w/ Diffon 02-09-2024 Erythrocyte distribution width (RBC) [Ratio] 16.0 % High 11.6-14.8 [facility] Comment on above: Performed By: #### C BC ####[address] [address] Hematocrit (Bld) [Volume fraction] 25.6 % Low 41.0-53.0 [facility] Comment on above: Performed By: #### C BC ####[place] [id number] Hemoglobin (Bld) [Mass/Vol] 8.7 g/dL Low 13.5-17.5 [facility] Comment on above: Performed By: #### C BC ####[address] [address] MCH (RBC) [Entitic mass] 30.4 pg Normal 27.0-35.0 [facility] Comment on above: Performed By: #### C BC ####[address] [address] MCHC 33.9 % Normal 31.0-37.0 [facility] Comment on above: Performed By: #### C BC ####[address] [address] MCV (RBC) [Entitic vol] 89.6 fL Normal 80.0-100.0 [facility] Comment on above: Performed By: #### C BC ####[address] [address] Platelet 179 x10*3/mcL Normal 150-450 [facility] Comment on above: Performed By: #### C BC ####[address] [address] Platelet mean volume (Bld) [Entitic vol] 6.5 fL Low 6.7-10.6 [facility] Comment on above: Performed By: #### C BC ####[address] [address] RBC 2.86 x10*6/mcL Low 4.30-5.80 [facility] Comment on above: Performed By: #### C BC ####[address] [address] WBC 7.6 x10*3/mcL Normal 4.5-11.0 [facility] Comment on above: Performed By: #### C BC ####[address] [address] Diff Autoon 02-09-2024 Baso Absolute 0.0 x10*3/mcL Normal 0.0-0.2 [facility] Comment on above: Performed By: #### . Automated Diff ####[address] [address] Basophils/100 WBC (Bld) 0.6 % Normal 0.0-1.2 [facility] Comment on above: Performed By: #### . Automated Diff ####[address] [address] Eos Absolute 0.5 x10*3/mcL High 0.0-0.4 [facility] Comment on above: Performed By: #### . Automated Diff ####[address] [address] Eosinophils/100 WBC (Bld) 7.2 % High 0.0-6.1 [facility] Comment on above: Performed By: #### . Automated Diff ####[address] [address] Lymph Absolute 1.2 x10*3/mcL Normal 1.0-4.8 [facility] Comment on above: Performed By: #### . Automated Diff ####[place] [address] [place] [address] Lymphocytes/100 WBC (Bld) 16.5 % Low 27.2-40.8 [facility] Comment on above: Performed By: #### . Automated Diff ####[address] [address] Dixie Absolute 0.6 x10*3/mcL Normal 0.3-1.1 [facility] Comment on above: Performed By: #### . Automated Diff ####[address] [address] Monocytes/100 WBC (Bld) 8.4 % Normal 4.7-13.9 [facility] Comment on above: Performed By: #### . Automated Diff ####[address] [address] Neutro Absolute 5.1 x10*3/mcL Normal 1.8-7.7 [facility] Comment on above: Performed By: #### . Automated Diff ####[address] [address] Neutro Auto 67.3 % Normal 47.2-70.8 [facility] Comment on above: Performed By: #### . Automated Diff ####[address] [address] Infectious Disease Progress Noteon 02-09-2024 Infectious Disease Progress Note Normal [facility] Inpatient Clinical Summaryon 02-09-2024 Inpatient Clinical Summary Normal [facility] Magnesiumon 02-09-2024 Magnesium [Mass/Vol] 1.8 mg/dL Normal 1.7-2.4 [facility] Comment on above: Performed By: #### M G ####[place] [id number] Orthopedic Progress Noteon 0 02-09-2024 Orthopedic Progress Note Normal [facility] POC Glucose Randomon 024 Glucose [Mass/Vol] 243 mg/dL High 70-99 [facility] Comment on above: Performed By: #### C [id number] ####[facility] [place] [address] Glucose [Mass/Vol] 217 mg/dL High 70-99 [facility] Comment on above: Performed By: #### C D:[id number] ####[address] [place] [address] Glucose [Mass/Vol] 299 mg/dL High 70-99 [facility] Comment on above: Performed By: #### C D:[id number] ####[address] [address] Glucose [Mass/Vol] 206 mg/dL High 70-99 [facility] Comment on above: Performed By: #### C D:[id number] ####[address] [address] .eGFRon 02-08-2024 GFR/1.73 sq M.predicted MDRD (S/P/Bld) [Vol rate/Area] mL/min/{1.73_m2} Normal >=60 [facility] Comment on above: Result Comment: [facility] [...] Performed By: #### E GFR ####[place] [id number] [place] [address] Basic Metabolic Profileon Anion gap [Moles/Vol] 7 mmol/L Normal 4-12 [facility] Comment on above: Performed By: #### C D:[id number] ####[address] [address] Calcium [Mass/Vol] 8.4 mg/dL Low 8.5-10.3 [facility] Comment on above: Performed By: #### C D:[id number] ####[address] [address] Chloride [Moles/Vol] 105 mmol/L Normal 98-110 [facility] Comment on above: Performed By: #### C D:[id number] ####[address] [address] CO2 [Moles/Vol] 23 mmol/L Normal 22-32 [facility] Comment on above: Performed By: #### C D:[id number] ####[address] [address] Creatinine [Mass/Vol] 0.92 mg/dL Normal 0.61-1.24 [facility] Comment on above: Performed By: #### C D:[id number] ####[address] [address] Glucose [Mass/Vol] 193 mg/dL High 70-99 [facility] Comment on above: Performed By: #### C D:[id number] ####[address] [address] Potassium [Moles/Vol] 4.9 mmol/L High 3.4-4.8 [facility] Comment on above: Performed By: #### C D:[id number] ####[address] [address] Sodium [Moles/Vol] 135 mmol/L Normal 133-142 [facility] Comment on above: Performed By: #### C D:[id number] ####[address] [address] Urea nitrogen [Mass/Vol] 20 mg/dL Normal 8-26 [facility] Comment on above: Performed By: #### C D:[id number] ####[address] [address] Urea nitrogen/Creatinine [Mass ratio] 21.7 mg/mg High 10.0-20.0 [facility] Comment on above: Performed By: #### C D:[id number] ####[address] [address] CBC w/ Diffon 02-08-2024 Erythrocyte distribution width (RBC) [Ratio] 15.8 % High 11.6-14.8 [facility] Comment on above: Performed By: #### C BC ####[address] [address] Hematocrit (Bld) [Volume fraction] 22.7 % Low 41.0-53.0 [facility] Comment on above: Performed By: #### C BC ####[address] [address] Hemoglobin (Bld) [Mass/Vol] 7.6 g/dL Low 13.5-17.5 [facility] Comment on above: Performed By: #### C BC ####[address] [address] MCH (RBC) [Entitic mass] 30.1 pg Normal 27.0-35.0 [facility] Comment on above: Performed By: #### C BC ####[address] [address] MCHC 33.5 % Normal 31.0-37.0 [facility] Comment on above: Performed By: #### C BC ####[address] [address] MCV (RBC) [Entitic vol] 89.8 fL Normal 80.0-100.0 [facility] Comment on above: Performed By: #### C BC ####[address] [address] Platelet 193 x10*3/mcL Normal 150-450 [facility] Comment on above: Performed By: #### C BC ####[address] [address] Platelet mean volume (Bld) [Entitic vol] 6.6 fL Low 6.7-10.6 [facility] Comment on above: Performed By: #### C BC ####[address] [address] RBC 2.53 x10*6/mcL Low 4.30-5.80 [facility] Comment on above: Performed By: #### C BC ####[address] [address] WBC 6.7 x10*3/mcL Normal 4.5-11.0 [facility] Comment on above: Performed By: #### C BC ####[address] [address] Dietary Consultationon 02-07 Dietary Consultation Normal [facility] Diff Autoon 02-08-2024 Baso Absolute 0.0 x10*3/mcL Normal 0.0-0.2 [facility] Comment on above: Performed By: #### . Automated Diff ####[address] [address] Basophils/100 WBC (Bld) 0.6 % Normal 0.0-1.2 [facility] Comment on above: Performed By: #### . Automated Diff ####[address] [address] Eos Absolute 0.5 x10*3/mcL High 0.0-0.4 [facility] Comment on above: Performed By: #### . Automated Diff ####[address] [address] Eosinophils/100 WBC (Bld) 6.8 % High 0.0-6.1 [facility] Comment on above: Performed By: #### . Automated Diff ####[address] [address] Lymph Absolute 1.4 x10*3/mcL Normal 1.0-4.8 [facility] Comment on above: Performed By: #### . Automated Diff ####[address] [address] Lymphocytes/100 WBC (Bld) 20.4 % Low 27.2-40.8 [facility] Comment on above: Performed By: #### . Automated Diff ####[address] [address] Dixie Absolute 0.5 x10*3/mcL Normal 0.3-1.1 [facility] Comment on above: Performed By: #### . Automated Diff ####[address] [address] Monocytes/100 WBC (Bld) 7.0 % Normal 4.7-13.9 [facility] Comment on above: Performed By: #### . Automated Diff ####[address] [address] Neutro Absolute 4.4 x10*3/mcL Normal 1.8-7.7 [facility] Comment on above: Performed By: #### . Automated Diff ####[address] [address] Neutro Auto 65.2 % Normal 47.2-70.8 [facility] Comment on above: Performed By: #### . Automated Diff ####[address] [address] Infectious Disease Progress Noteon 02-08-2024 Infectious Disease Progress Note Normal [facility] Magnesiumon 02-08-2024 Magnesium [Mass/Vol] 1.8 mg/dL Normal 1.7-2.4 [facility] Comment on above: Performed By: #### M G ####[address] [address] Orthopedic Progress Noteon 0 02-08-2024 Orthopedic Progress Note Normal [facility] POC Glucose Randomon 024 Glucose [Mass/Vol] 256 mg/dL High 70-99 [facility] Comment on above: Performed By: #### C [id number] ####[address] [address] Glucose [Mass/Vol] 223 mg/dL High 70-99 [facility] Comment on above: Performed By: #### C [id number] ####[address] [address] Glucose [Mass/Vol] 210 mg/dL High 70-99 [facility] Comment on above: Performed By: #### C D:[id number] ####[address] [address] Glucose [Mass/Vol] 184 mg/dL High 70-99 [facility] Comment on above: Performed By: #### C D:[id number] ####[address] [address] Vanco Troughon 02-08-2024 Vanco Trough 14.70 mcg/mL Normal 10.00-15.00 [facility] Comment on above: Performed By: #### V ANCT ####[address] [address] .eGFRon 02-07-2024 GFR/1.73 sq M.predicted MDRD (S/P/Bld) [Vol rate/Area] mL/min/{1.73_m2} Normal >=60 [facility] Comment on above: Result Comment: [facility] [...] = years Performed By: #### E GFR ####[address] [address] Basic Metabolic Profileon Anion gap [Moles/Vol] 9 mmol/L Normal 4-12 [facility] Comment on above: Performed By: #### C D:[id number] ####[address] [address] Calcium [Mass/Vol] 8.5 mg/dL Normal 8.5-10.3 [facility] Comment on above: Performed By: #### C [id number] ####[address] [address] Chloride [Moles/Vol] 104 mmol/L Normal 98-110 [facility] Comment on above: Performed By: #### C D:[id number] ####[address] [address] CO2 [Moles/Vol] 23 mmol/L Normal 22-32 [facility] Comment on above: Performed By: #### C D:[id number] ####[address] [address] Creatinine [Mass/Vol] 1.03 mg/dL Normal 0.61-1.24 [facility] Comment on above: Performed By: #### C D:[id number] ####[address] [address] Glucose [Mass/Vol] 174 mg/dL High 70-99 [facility] Comment on above: Performed By: #### C D:[id number] ####[address] [address] Potassium [Moles/Vol] 4.7 mmol/L Normal 3.4-4.8 [facility] Comment on above: Performed By: #### C D:[id number] ####[address] [address] Sodium [Moles/Vol] 136 mmol/L Normal 133-142 [facility] Comment on above: Performed By: #### C D:[id number] ####[address] [address] Urea nitrogen [Mass/Vol] 20 mg/dL Normal 8-26 [facility] Comment on above: Performed By: #### C D:[id number] ####[address] [address] Urea nitrogen/Creatinine [Mass ratio] 19.4 mg/mg Normal 10.0-20.0 [facility] Comment on above: Performed By: #### C D:[id number] ####[address] [address] C Bldon 02-07-2024 C Bld ------- Final No growth at 5 days. [facility] Comment on above: Performed By: #### B LDC ####[address] [address] C Sterile BSon 02-07-2024 C Sterile BS [facility] Comment on above: Performed By: #### S BSC ####[facility] ([facility])[address] [place], [place] [address] [address] C Sterile BS [facility] Comment on above: Performed By: #### S BSC ####[facility] (DEFAULT)[address] [place] [address] [address] CBC w/ Diffon 02-07-2024 Erythrocyte distribution width (RBC) [Ratio] 16.0 % High 11.6-14.8 [facility] Comment on above: Performed By: #### C BC ####[place] [id number] Hematocrit (Bld) [Volume fraction] 23.9 % Low 41.0-53.0 [facility] Comment on above: Performed By: #### C BC ####[place] [address] Hemoglobin (Bld) [Mass/Vol] 8.1 g/dL Low 13.5-17.5 [facility] Comment on above: Performed By: #### C BC ####[place] [address] MCH (RBC) [Entitic mass] 30.5 pg Normal 27.0-35.0 [facility] Comment on above: Performed By: #### C BC ####[place] [address] MCHC 33.8 % Normal 31.0-37.0 [facility] Comment on above: Performed By: #### C BC ####[place] [address] MCV (RBC) [Entitic vol] 90.0 fL Normal 80.0-100.0 [facility] Comment on above: Performed By: #### C BC ####[place] [address] Platelet 177 x10*3/mcL Normal 150-450 [facility] Comment on above: Performed By: #### C BC ####[place] [id number] Platelet mean volume (Bld) [Entitic vol] 6.6 fL Low 6.7-10.6 [facility] Comment on above: Performed By: #### C BC ####[address] [address] RBC 2.66 x10*6/mcL Low 4.30-5.80 [facility] Comment on above: Performed By: #### C BC ####[address] [address] WBC 7.1 x10*3/mcL Normal 4.5-11.0 [facility] Comment on above: Performed By: #### C BC ####[address] [address] Diff Autoon 02-07-2024 Baso Absolute 0.0 x10*3/mcL Normal 0.0-0.2 [facility] Comment on above: Performed By: #### . Automated Diff ####[address] [address] Basophils/100 WBC (Bld) 0.5 % Normal 0.0-1.2 [facility] Comment on above: Performed By: #### . Automated Diff ####[address] [address] Eos Absolute 0.6 x10*3/mcL High 0.0-0.4 [facility] Comment on above: Performed By: #### . Automated Diff ####[address] [address] Eosinophils/100 WBC (Bld) 8.1 % High 0.0-6.1 [facility] Comment on above: Performed By: #### . Automated Diff ####[address] [address] Lymph Absolute 1.6 x10*3/mcL Normal 1.0-4.8 [facility] Comment on above: Performed By: #### . Automated Diff ####[address] [address] Lymphocytes/100 WBC (Bld) 22.8 % Low 27.2-40.8 [facility] Comment on above: Performed By: #### . Automated Diff ####[address] [address] Dixie Absolute 0.5 x10*3/mcL Normal 0.3-1.1 [facility] Comment on above: Performed By: #### . Automated Diff ####[address] [address] Monocytes/100 WBC (Bld) 7.6 % Normal 4.7-13.9 [facility] Comment on above: Performed By: #### . Automated Diff ####[address] [address] Neutro Absolute 4.3 x10*3/mcL Normal 1.8-7.7 [facility] Comment on above: Performed By: #### . Automated Diff ####[address] [address] Neutro Auto 61.0 % Normal 47.2-70.8 [facility] Comment on above: Performed By: #### . Automated Diff ####[address] [address] Magnesiumon 02-07-2024 Magnesium [Mass/Vol] 1.7 mg/dL Normal 1.7-2.4 [facility] Comment on above: Performed By: #### M G ####[address] [address] Orthopedic Progress Noteon 0 02-07-2024 Orthopedic Progress Note Normal [facility] POC Glucose Randomon 024 Glucose [Mass/Vol] 267 mg/dL High 70-99 [facility] Comment on above: Performed By: #### C D:[id number] ####[address] [address] Glucose [Mass/Vol] 229 mg/dL High 70-99 [facility] Comment on above: Performed By: #### C D:[id number] ####[address] [address] Glucose [Mass/Vol] 246 mg/dL High 70-99 [facility] Comment on above: Performed By: #### C D:[id number] ####[address] [address] Glucose [Mass/Vol] 166 mg/dL High 70-99 [facility] Comment on above: Performed By: #### C D:[id number] ####[address] [address] .eGFRon 02-06-2024 GFR/1.73 sq M.predicted MDRD (S/P/Bld) [Vol rate/Area] mL/min/{1.73_m2} Normal >=60 [facility] Comment on above: Result Comment: [facility] [...] = years Performed By: #### E GFR ####[address] [address] ABO/Rhon 02-06-2024 ABO/Rh ABO/Rh: A POS Normal [facility] Comment on above: Performed By: #### A BORH ####[address] [address] ABSC Autoon 02-06-2024 ABSC Auto Negative Normal [facility] Comment on above: Performed By: #### A SA ####[address] [address] Basic Metabolic Profileon Anion gap [Moles/Vol] 8 mmol/L Normal 4-12 [facility] Comment on above: Performed By: #### C D:[id number] ####[address] [address] Calcium [Mass/Vol] 8.1 mg/dL Low 8.5-10.3 [facility] Comment on above: Performed By: #### C D:[id number] ####[address] [address] Chloride [Moles/Vol] 104 mmol/L Normal 98-110 [facility] Comment on above: Performed By: #### C D:[id number] ####[address] [place] [address] CO2 [Moles/Vol] 22 mmol/L Normal 22-32 [facility] Comment on above: Performed By: #### C D:[id number] ####[address] [address] Creatinine [Mass/Vol] 0.95 mg/dL Normal 0.61-1.24 [facility] Comment on above: Performed By: #### C D:[id number] ####[address] [place] [address] Glucose [Mass/Vol] 238 mg/dL High 70-99 [facility] Comment on above: Performed By: #### C D:[id number] ####[address] [address] Potassium [Moles/Vol] 4.5 mmol/L Normal 3.4-4.8 [facility] Comment on above: Performed By: #### C D:[id number] ####[address] [address] Sodium [Moles/Vol] 134 mmol/L Normal 133-142 [facility] Comment on above: Performed By: #### C D:[id number] ####[address] [address] Urea nitrogen [Mass/Vol] 17 mg/dL Normal 8-26 [facility] Comment on above: Performed By: #### C D:[id number] ####[address] [address] Urea nitrogen/Creatinine [Mass ratio] 17.9 mg/mg Normal 10.0-20.0 [facility] Comment on above: Performed By: #### C D:[id number] ####[address] [address] C ANAon 02-06-2024 C BRANDON ------- Final No anaerobic growth after 72 hrs. Normal [facility] Comment on above: Performed By: #### A NAC ####[address] [address] CBC w/ Diffon 02-06-2024 Erythrocyte distribution width (RBC) [Ratio] 14.8 % Normal 11.6-14.8 [facility] Comment on above: Performed By: #### C BC ####[address] [address] Hematocrit (Bld) [Volume fraction] 20.0 % Low 41.0-53.0 [facility] Comment on above: Performed By: #### C BC ####[address] [address] Hemoglobin (Bld) [Mass/Vol] 6.7 g/dL Low 13.5-17.5 [facility] Comment on above: Performed By: #### C BC ####[place] [address] MCH (RBC) [Entitic mass] 29.7 pg Normal 27.0-35.0 [facility] Comment on above: Performed By: #### C BC ####[place] [address]40 MCHC 33.5 % Normal 31.0-37.0 [facility] Comment on above: Performed By: #### C BC ####[place] [address]40 MCV (RBC) [Entitic vol] 88.8 fL Normal 80.0-100.0 [facility] Comment on above: Performed By: #### C BC ####[place] [address] Platelet 144 x10*3/mcL Low 150-450 [facility] Comment on above: Performed By: #### C BC ####[place] [address] Platelet mean volume (Bld) [Entitic vol] 6.9 fL Normal 6.7-10.6 [facility] Comment on above: Performed By: #### C BC ####[place] [address] RBC 2.25 x10*6/mcL Low 4.30-5.80 [facility] Comment on above: Performed By: #### C BC ####[place] [address]40 WBC 5.4 x10*3/mcL Normal 4.5-11.0 [facility] Comment on above: Performed By: #### C BC ####[place] [address]40 Diff Autoon 02-06-2024 Baso Absolute 0.0 x10*3/mcL Normal 0.0-0.2 [facility] Comment on above: Performed By: #### . Automated Diff ####[place] [id number] Basophils/100 WBC (Bld) 0.6 % Normal 0.0-1.2 [facility] Comment on above: Performed By: #### . Automated Diff ####[address] [address] Eos Absolute 0.4 x10*3/mcL Normal 0.0-0.4 [facility] Comment on above: Performed By: #### . Automated Diff ####[address] [address] Eosinophils/100 WBC (Bld) 7.9 % High 0.0-6.1 [facility] Comment on above: Performed By: #### . Automated Diff ####[address] [address] Lymph Absolute 1.4 x10*3/mcL Normal 1.0-4.8 [facility] Comment on above: Performed By: #### . Automated Diff ####[address] [address] Lymphocytes/100 WBC (Bld) 25.2 % Low 27.2-40.8 [facility] Comment on above: Performed By: #### . Automated Diff ####[address] [address] Dixie Absolute 0.5 x10*3/mcL Normal 0.3-1.1 [facility] Comment on above: Performed By: #### . Automated Diff ####[address] [address] Monocytes/100 WBC (Bld) 8.9 % Normal 4.7-13.9 [facility] Comment on above: Performed By: #### . Automated Diff ####[address] [address] Neutro Absolute 3.1 x10*3/mcL Normal 1.8-7.7 [facility] Comment on above: Performed By: #### . Automated Diff ####[address] [address] Neutro Auto 57.4 % Normal 47.2-70.8 [facility] Comment on above: Performed By: #### . Automated Diff ####[address] [address] Infectious Disease Progress Noteon 02-06-2024 Infectious Disease Progress Note Normal [facility] Magnesiumon 02-06-2024 Magnesium [Mass/Vol] 1.6 mg/dL Low 1.7-2.4 [facility] Comment on above: Performed By: #### M G ####[address] [address] Orthopedic Progress Noteon 0 02-06-2024 Orthopedic Progress Note Normal [facility] POC Glucose Randomon 024 Glucose [Mass/Vol] 254 mg/dL High 70-99 [facility] Comment on above: Performed By: #### C D:[id number] ####[address] [address] Glucose [Mass/Vol] 209 mg/dL High 70-99 [facility] Comment on above: Performed By: #### C D:[id number] ####[address] [address] Glucose [Mass/Vol] 217 mg/dL High 70-99 [facility] Comment on above: Performed By: #### C D:[id number] ####[address] [address] Glucose [Mass/Vol] 178 mg/dL High 70-99 [facility] Comment on above: Performed By: #### C D:[id number] ####[address] [address] Vanco Troughon 02-06-2024 Vanco Trough 16.60 mcg/mL High 10.00-15.00 [facility] Comment on above: Performed By: #### V ANCT ####[address] [address] .eGFRon 02-05-2024 GFR/1.73 sq M.predicted MDRD (S/P/Bld) [Vol rate/Area] mL/min/{1.73_m2} Normal >=60 [facility] Comment on above: Result Comment: [facility] [...] = years Performed By: #### E GFR ####[address] [address] Basic Metabolic Profileon Anion gap [Moles/Vol] 7 mmol/L Normal 4-12 [facility] Comment on above: Performed By: #### C D:[id number] ####[place] [address] [place] [address] Calcium [Mass/Vol] 8.2 mg/dL Low 8.5-10.3 [facility] Comment on above: Performed By: #### C D:[id number] ####[address] [address] Chloride [Moles/Vol] 104 mmol/L Normal 98-110 [facility] Comment on above: Performed By: #### C D:[id number] ####[place] [address] [place] [address] CO2 [Moles/Vol] 23 mmol/L Normal 22-32 [facility] Comment on above: Performed By: #### C D:[id number] ####[address] [address] Creatinine [Mass/Vol] 1.10 mg/dL Normal 0.61-1.24 [facility] Comment on above: Performed By: #### C D:[id number] ####[address] [address] Glucose [Mass/Vol] 214 mg/dL High 70-99 [facility] Comment on above: Performed By: #### C D:[id number] ####[address] [address] Potassium [Moles/Vol] 4.5 mmol/L Normal 3.4-4.8 [facility] Comment on above: Performed By: #### C D:[id number] ####[address] [address] Sodium [Moles/Vol] 134 mmol/L Normal 133-142 [facility] Comment on above: Performed By: #### C D:[id number] ####[address] [address] Urea nitrogen [Mass/Vol] 15 mg/dL Normal 8-26 [facility] Comment on above: Performed By: #### C D:[id number] ####[address] [address] Urea nitrogen/Creatinine [Mass ratio] 13.6 mg/mg Normal 10.0-20.0 [facility] Comment on above: Performed By: #### C D:[id number] ####[address] [address] C Woundon 02-05-2024 C Wound ------- Final No growth at 48 hours. Normal [facility] Comment on above: Performed By: #### W DC ####[place] [address] CBC w/ Diffon 02-05-2024 Erythrocyte distribution width (RBC) [Ratio] 15.0 % High 11.6-14.8 [facility] Comment on above: Performed By: #### C BC ####[place] [id number] Hematocrit (Bld) [Volume fraction] 21.6 % Low 41.0-53.0 [facility] Comment on above: Performed By: #### C BC ####[place] [address] Hemoglobin (Bld) [Mass/Vol] 7.2 g/dL Low 13.5-17.5 [facility] Comment on above: Performed By: #### C BC ####[place] [address] MCH (RBC) [Entitic mass] 29.6 pg Normal 27.0-35.0 [facility] Comment on above: Performed By: #### C BC ####[place] [address] MCHC 33.5 % Normal 31.0-37.0 [facility] Comment on above: Performed By: #### C BC ####[place] [address]40 MCV (RBC) [Entitic vol] 88.4 fL Normal 80.0-100.0 [facility] Comment on above: Performed By: #### C BC ####[place] [id number] Platelet 157 x10*3/mcL Normal 150-450 [facility] Comment on above: Performed By: #### C BC ####[place] [id number] Platelet mean volume (Bld) [Entitic vol] 6.9 fL Normal 6.7-10.6 [facility] Comment on above: Performed By: #### C BC ####[address] [address] RBC 2.44 x10*6/mcL Low 4.30-5.80 [facility] Comment on above: Performed By: #### C BC ####[address] [address] WBC 6.5 x10*3/mcL Normal 4.5-11.0 [facility] Comment on above: Performed By: #### C BC ####[address] [address] Diff Autoon 02-05-2024 Baso Absolute 0.0 x10*3/mcL Normal 0.0-0.2 [facility] Comment on above: Performed By: #### . Automated Diff ####[address] [address] Basophils/100 WBC (Bld) 0.3 % Normal 0.0-1.2 [facility] Comment on above: Performed By: #### . Automated Diff ####[address] [address] Eos Absolute 0.4 x10*3/mcL Normal 0.0-0.4 [facility] Comment on above: Performed By: #### . Automated Diff ####[address] [address] Eosinophils/100 WBC (Bld) 6.1 % Normal 0.0-6.1 [facility] Comment on above: Performed By: #### . Automated Diff ####[address] [address] Lymph Absolute 1.4 x10*3/mcL Normal 1.0-4.8 [facility] Comment on above: Performed By: #### . Automated Diff ####[address] [address] Lymphocytes/100 WBC (Bld) 21.6 % Low 27.2-40.8 [facility] Comment on above: Performed By: #### . Automated Diff ####[address] [address] Dixie Absolute 0.5 x10*3/mcL Normal 0.3-1.1 [facility] Comment on above: Performed By: #### . Automated Diff ####[address] [address] Monocytes/100 WBC (Bld) 7.8 % Normal 4.7-13.9 [facility] Comment on above: Performed By: #### . Automated Diff ####[address] [address] Neutro Absolute 4.2 x10*3/mcL Normal 1.8-7.7 [facility] Comment on above: Performed By: #### . Automated Diff ####[address] [address] Neutro Auto 64.2 % Normal 47.2-70.8 [facility] Comment on above: Performed By: #### . Automated Diff ####[address] [address] Infectious Disease Progress Noteon 02-05-2024 Infectious Disease Progress Note Normal [facility] Magnesiumon 02-05-2024 Magnesium [Mass/Vol] 1.7 mg/dL Normal 1.7-2.4 [facility] Comment on above: Performed By: #### M G ####[address] [address] POC Glucose Randomon 024 Glucose [Mass/Vol] 220 mg/dL High 70-99 [facility] Comment on above: Performed By: #### C D:[id number] ####[address] [address] Glucose [Mass/Vol] 246 mg/dL High 70-99 [facility] Comment on above: Performed By: #### C D:[id number] ####[address] [address] Glucose [Mass/Vol] 185 mg/dL High 70-99 [facility] Comment on above: Performed By: #### C D:[id number] ####[place] [address] [place] [address] Progress Note-Nurseon 2023 Progress Note-Nurse Normal [facility] XR PICC Floor [place] 02-04 XR PICC Floor Insert Normal [facility] .eGFRon 02-04-2024 GFR/1.73 sq M.predicted MDRD (S/P/Bld) [Vol rate/Area] mL/min/{1.73_m2} Normal >=60 [facility] Comment on above: Result Comment: [facility] [...] = years Performed By: #### E GFR ####[facility] [place] [address] Basic Metabolic Profileon Anion gap [Moles/Vol] 7 mmol/L Normal 4-12 [facility] Comment on above: Performed By: #### C D:[id number] ####[place] [address] [place] [address] Calcium [Mass/Vol] 7.7 mg/dL Low 8.5-10.3 [facility] Comment on above: Performed By: #### C D:[id number] ####[address] [address] Chloride [Moles/Vol] 103 mmol/L Normal 98-110 [facility] Comment on above: Performed By: #### C D:[id number] ####[address] [address] CO2 [Moles/Vol] 22 mmol/L Normal 22-32 [facility] Comment on above: Performed By: #### C D:[id number] ####[address] [address] Creatinine [Mass/Vol] 1.10 mg/dL Normal 0.61-1.24 [facility] Comment on above: Performed By: #### C D:[id number] ####[address] [address] Glucose [Mass/Vol] 351 mg/dL High 70-99 [facility] Comment on above: Performed By: #### C D:[id number] ####[address] [address] Potassium [Moles/Vol] 4.5 mmol/L Normal 3.4-4.8 [facility] Comment on above: Performed By: #### C D:[id number] ####[address] [address] Sodium [Moles/Vol] 132 mmol/L Low 133-142 [facility] Comment on above: Performed By: #### C D:[id number] ####[address] [address] Urea nitrogen [Mass/Vol] 17 mg/dL Normal 8-26 [facility] Comment on above: Performed By: #### C D:[id number] ####[address] [address] Urea nitrogen/Creatinine [Mass ratio] 15.5 mg/mg Normal 10.0-20.0 [facility] Comment on above: Performed By: #### C D:[id number] ####[place] [id number] C Sterile BFon 02-04-2024 C Sterile BF ------- Final No growth at 2 weeks. ------- Gram Stain Many White Blood Cells No organisms seen. Normal [facility] Comment on above: Performed By: #### C SBF ####[place] [address] CBC w/ Diffon 02-04-2024 Erythrocyte distribution width (RBC) [Ratio] 14.9 % High 11.6-14.8 [facility] Comment on above: Performed By: #### C BC ####[place] [id number] Hematocrit (Bld) [Volume fraction] 25.5 % Low 41.0-53.0 [facility] Comment on above: Performed By: #### C BC ####[place] [address] Hemoglobin (Bld) [Mass/Vol] 8.4 g/dL Low 13.5-17.5 [facility] Comment on above: Performed By: #### C BC ####[place] [address] MCH (RBC) [Entitic mass] 29.6 pg Normal 27.0-35.0 [facility] Comment on above: Performed By: #### C BC ####[address] [address] MCHC 33.1 % Normal 31.0-37.0 [facility] Comment on above: Performed By: #### C BC ####[address] [address] MCV (RBC) [Entitic vol] 89.4 fL Normal 80.0-100.0 [facility] Comment on above: Performed By: #### C BC ####[place] [id number] Platelet 186 x10*3/mcL Normal 150-450 [facility] Comment on above: Performed By: #### C BC ####[place] [id number] Platelet mean volume (Bld) [Entitic vol] 7.1 fL Normal 6.7-10.6 [facility] Comment on above: Result Comment: Repo rted to nurse before verifying to ensure accuracy of results. Performed By: #### C BC ####[place] [address] RBC 2.85 x10*6/mcL Low 4.30-5.80 [facility] Comment on above: Performed By: #### C BC ####[place] [address] WBC 10.9 x10*3/mcL Normal 4.5-11.0 [facility] Comment on above: Performed By: #### C BC ####[place] [id number] Diff Autoon 02-04-2024 Baso Absolute 0.1 x10*3/mcL Normal 0.0-0.2 [facility] Comment on above: Performed By: #### . Automated Diff ####[address] [address] Basophils/100 WBC (Bld) 0.6 % Normal 0.0-1.2 [facility] Comment on above: Performed By: #### . Automated Diff ####[address] [address] Eos Absolute 0.0 x10*3/mcL Normal 0.0-0.4 [facility] Comment on above: Performed By: #### . Automated Diff ####[address] [address] Eosinophils/100 WBC (Bld) 0.3 % Normal 0.0-6.1 [facility] Comment on above: Performed By: #### . Automated Diff ####[place] [id number] Lymph Absolute 1.0 x10*3/mcL Normal 1.0-4.8 [facility] Comment on above: Performed By: #### . Automated Diff ####[place] [address]22740 Lymphocytes/100 WBC (Bld) 9.6 % Low 27.2-40.8 [facility] Comment on above: Performed By: #### . Automated Diff ####[place] [address]227[address] Dixie Absolute 0.6 x10*3/mcL Normal 0.3-1.1 [facility] Comment on above: Performed By: #### . Automated Diff ####[place] [address]22740 Monocytes/100 WBC (Bld) 5.4 % Normal 4.7-13.9 [facility] Comment on above: Performed By: #### . Automated Diff ####[place] [address]227[address] Neutro Absolute 9.2 x10*3/mcL High 1.8-7.7 [facility] Comment on above: Performed By: #### . Automated Diff ####[place] [address]22740 Neutro Auto 84.1 % High 47.2-70.8 [facility] Comment on above: Performed By: #### . Automated Diff ####[place] [id number] Infectious Disease Consultat ionon 02-04-2024 Infectious Disease Consultation Normal [facility] Magnesiumon 02-04-2024 Magnesium [Mass/Vol] 1.8 mg/dL Normal 1.7-2.4 [facility] Comment on above: Performed By: #### M G ####[address] [address] Orthopedic Progress Noteon 0 02-04-2024 Orthopedic Progress Note Normal [facility] POC Glucose Randomon 024 Glucose [Mass/Vol] 239 mg/dL High 70-99 [facility] Comment on above: Performed By: #### C [id number] ####[address] [address] Glucose [Mass/Vol] 187 mg/dL High 70-99 [facility] Comment on above: Performed By: #### C [id number] ####[address] [address] Glucose [Mass/Vol] 285 mg/dL High 70-99 [facility] Comment on above: Performed By: #### C [id number] ####[address] [address] Glucose [Mass/Vol] 288 mg/dL High 70-99 [facility] Comment on above: Performed By: #### C [id number] ####[address] [address] Vanco Troughon 02-04-2024 Vanco Trough 19.40 mcg/mL High 10.00-15.00 [facility] Comment on above: Performed By: #### V ANCT ####[address] [address] .eGFRon 02-03-2024 GFR/1.73 sq M.predicted MDRD (S/P/Bld) [Vol rate/Area] mL/min/{1.73_m2} Normal >=60 [facility] Comment on above: Result Comment: [facility] [...] = years Performed By: #### E GFR ####[address] [address] ABO/Rhon 02-03-2024 ABO/Rh ABO/Rh: A POS Normal [facility] Comment on above: Performed By: #### A FLAVIO ####[address] [address] ABSC Autoon 02-03-2024 ABSC Auto Negative Normal [facility] Comment on above: Performed By: #### A SA ####[address] [address] Basic Metabolic Profileon Anion gap [Moles/Vol] 9 mmol/L Normal 4-12 [facility] Comment on above: Performed By: #### C [id number] ####[address] [address] Calcium [Mass/Vol] 9.3 mg/dL Normal 8.5-10.3 [facility] Comment on above: Performed By: #### C [id number] ####[address] [address] Chloride [Moles/Vol] 101 mmol/L Normal 98-110 [facility] Comment on above: Performed By: #### C [id number] ####[address] [address] CO2 [Moles/Vol] 24 mmol/L Normal 22-32 [facility] Comment on above: Performed By: #### C [id number] ####[address] [address] Creatinine [Mass/Vol] 0.93 mg/dL Normal 0.61-1.24 [facility] Comment on above: Performed By: #### C [id number] ####[address] [address] Glucose [Mass/Vol] 118 mg/dL High 70-99 [facility] Comment on above: Performed By: #### C [id number] ####[address] [address] Potassium [Moles/Vol] 4.8 mmol/L Normal 3.4-4.8 [facility] Comment on above: Performed By: #### C D:[id number] ####[address] [address] Sodium [Moles/Vol] 134 mmol/L Normal 133-142 [facility] Comment on above: Performed By: #### C [id number] ####[address] [address] Urea nitrogen [Mass/Vol] 15 mg/dL Normal 8-26 [facility] Comment on above: Performed By: #### C D:[id number] ####[address] [address] Urea nitrogen/Creatinine [Mass ratio] 16.1 mg/mg Normal 10.0-20.0 [facility] Comment on above: Performed By: #### C D:[id number] ####[address] [address] CBC w/ Diffon 02-03-2024 Erythrocyte distribution width (RBC) [Ratio] 15.0 % High 11.6-14.8 [facility] Comment on above: Performed By: #### C BC ####[place] [id number] Hematocrit (Bld) [Volume fraction] 41.9 % Normal 41.0-53.0 [facility] Comment on above: Performed By: #### C BC ####[place] [address]22740 Hemoglobin (Bld) [Mass/Vol] 14.1 g/dL Normal 13.5-17.5 [facility] Comment on above: Performed By: #### C BC ####[place] [address]22740 MCH (RBC) [Entitic mass] 29.4 pg Normal 27.0-35.0 [facility] Comment on above: Performed By: #### C BC ####[place] [address] MCHC 33.6 % Normal 31.0-37.0 [facility] Comment on above: Performed By: #### C BC ####[place] [address]22740 MCV (RBC) [Entitic vol] 87.7 fL Normal 80.0-100.0 [facility] Comment on above: Performed By: #### C BC ####[place] [address]22740 Platelet 253 x10*3/mcL Normal 150-450 [facility] Comment on above: Performed By: #### C BC ####[place] [address]22740 Platelet mean volume (Bld) [Entitic vol] 6.6 fL Low 6.7-10.6 [facility] Comment on above: Performed By: #### C BC ####[place] [address]22740 RBC 4.78 x10*6/mcL Normal 4.30-5.80 [facility] Comment on above: Performed By: #### C BC ####[address] [address] WBC 9.1 x10*3/mcL Normal 4.5-11.0 [facility] Comment on above: Performed By: #### C BC ####[address] [address] CRPon 02-03-2024 CRP 2.92 mg/dL High 0.00-0.75 [facility] Comment on above: Result Comment: CRP measurement is useful for assessment of non-specificINFLAMMATORY RESPONSE to infection or injury AND is asensitive MARKER of ACUTE INFLAMMATION including CARDIACRISK ASSESSMENT.CARDIAC patients with elevated CRP are POTENTIALLY at aHIGHER RISK OF FUTURE CARDIAC EVENTS. Performed By: #### C RP ####[address] [address] Diff Autoon 02-03-2024 Baso Absolute 0.1 x10*3/mcL Normal 0.0-0.2 [facility] Comment on above: Performed By: #### . Automated Diff ####[address] [address] Basophils/100 WBC (Bld) 1.2 % Normal 0.0-1.2 [facility] Comment on above: Performed By: #### . Automated Diff ####[address] [address] Eos Absolute 0.5 x10*3/mcL High 0.0-0.4 [facility] Comment on above: Performed By: #### . Automated Diff ####[address] [address] Eosinophils/100 WBC (Bld) 5.3 % Normal 0.0-6.1 [facility] Comment on above: Performed By: #### . Automated Diff ####[address] [address] Lymph Absolute 1.7 x10*3/mcL Normal 1.0-4.8 [facility] Comment on above: Performed By: #### . Automated Diff ####[address] [address] Lymphocytes/100 WBC (Bld) 18.9 % Low 27.2-40.8 [facility] Comment on above: Performed By: #### . Automated Diff ####[address] [address] Dixie Absolute 0.8 x10*3/mcL Normal 0.3-1.1 [facility] Comment on above: Performed By: #### . Automated Diff ####[address] [address] Monocytes/100 WBC (Bld) 8.3 % Normal 4.7-13.9 [facility] Comment on above: Performed By: #### . Automated Diff ####[address] [address] Neutro Absolute 6.0 x10*3/mcL Normal 1.8-7.7 [facility] Comment on above: Performed By: #### . Automated Diff ####[address] [address] Neutro Auto 66.3 % Normal 47.2-70.8 [facility] Comment on above: Performed By: #### . Automated Diff ####[address] [address] ESRon 02-03-2024 Sed Rate 17 mm/hr Normal 0-23 [facility] Comment on above: Performed By: #### E SR ####[address] [address] Hgb A1con 02-03-2024 Glucose [Mass/Vol] 197 mg/dL High 68-114 [facility] Comment on above: Result Comment: Math ematical Calc approx. The mean gluc equivalency of A1c Performed By: #### H BA1C ####[address] [address] Hgb A1c 8.5 % A1c High 4.0-5.6 [facility] Comment on above: Result Comment: Refe rence Range:4.0 - 5.6 % Normal5.7 - 6.4 % Pre-Diabetes > 6.5 % Diabetes Performed By: #### H BA1C ####[address] [address] Magnesiumon 02-03-2024 Magnesium [Mass/Vol] 1.9 mg/dL Normal 1.7-2.4 [facility] Comment on above: Performed By: #### M G ####[address] [address] Operative Reporton Operative Report Normal [facility] Orthopedic Consultationon Orthopedic Consultation Normal [facility] POC Glucose Randomon 024 Glucose [Mass/Vol] 173 mg/dL High 70-99 [facility] Comment on above: Performed By: #### C [id number] ####[address] [address] Glucose [Mass/Vol] 177 mg/dL High 70-99 [facility] Comment on above: Performed By: #### C [id number] ####[address] [address] Glucose [Mass/Vol] 144 mg/dL High 70-99 [facility] Comment on above: Performed By: #### C [id number] ####[address] [address] Glucose [Mass/Vol] 115 mg/dL High 70-99 [facility] Comment on above: Performed By: #### C [id number] ####[address] [address] Glucose [Mass/Vol] 181 mg/dL High 70-99 [facility] Comment on above: Performed By: #### C [id number] ####[address] [address] Glucose [Mass/Vol] 118 mg/dL High 70-99 [facility] Comment on above: Performed By: #### C D:[id number] ####[place] [address] XR Knee 1 or 2 Views Righton 02-03-2024 XR Knee 1 or 2 Views Right Normal [facility] .BF Cell Cnt RBC Aon 024 Fluid RBC Count [id number] /mcL Normal [facility] Comment on above: Result Comment: Ther e are no established Reference Ranges for bronchoalveolar lavage (BAL), synovial, miscellaneous body, or dialysate fluids. Performed By: #### . Body Fluid Cell Count RBC Auto ####[place] [address] .BF Cell Cnt WBC Aon 024 Fluid WBC Count 76797 /mcL High 0-150 [facility] Comment on above: Result Comment: Ther e are no established Reference Ranges for bronchoalveolar lavage (BAL), miscellaneous body, or dialysate fluids. Performed By: #### . Body Fluid Cell Count WBC Auto ####[place] [address] .BF Diffon 02-02-2024 Fluid Mononuclear Cells 6 % Normal 0-78 [facility] Comment on above: Result Comment: Ther e are no established Reference Ranges for bronchoalveolar lavage (BAL), miscellaneous body, or dialysate fluids. Performed By: #### . Body Fluid Differential ####[place] [address] Fluid Other Cells 0 % Normal 0-10 [facility] Comment on above: Result Comment: Ther e are no established Reference Ranges for bronchoalveolar lavage (BAL), miscellaneous body, or dialysate fluids. Performed By: #### . Body Fluid Differential ####[place] [address] Fluid Polynuclear Cells 94 % High 0-25 [facility] Comment on above: Result Comment: Ther e are no established Reference Ranges for bronchoalveolar lavage (BAL), miscellaneous body, or dialysate fluids. Performed By: #### . Body Fluid Differential ####[place] [address] .UA Microscp Aon 02-02-2024 UA Hyline Cast Qual 0-2 Normal Negative [facility] Comment on above: Performed By: #### . Urinalysis Microscopic Auto ####[address] [address] UA Mucus Present Normal Absent [facility] Comment on above: Performed By: #### . Urinalysis Microscopic Auto ####[place] [address] UA RBC Quant 1 /HPF Normal 0-5 [facility] Comment on above: Performed By: #### . Urinalysis Microscopic Auto ####[place] [address] UA WBC Quant 0 /HPF Normal 0-5 [facility] Comment on above: Performed By: #### . Urinalysis Microscopic Auto ####[place] [address] .eGFRon 02-02-2024 GFR/1.73 sq M.predicted MDRD (S/P/Bld) [Vol rate/Area] mL/min/{1.73_m2} Normal >=60 [facility] Comment on above: Result Comment: [facility] [...] = years Performed By: #### E GFR ####[address] [address] BF Cell Counton 02-02-2024 Body Fluid Cell Cnt Type Synovial Normal [facility] Comment on above: Performed By: #### F LCC ####[place] [id number] CBC w/ Diffon 02-02-2024 Erythrocyte distribution width (RBC) [Ratio] 14.8 % Normal 11.6-14.8 [facility] Comment on above: Performed By: #### C BC ####[place] [address]40 Hematocrit (Bld) [Volume fraction] 38.7 % Low 41.0-53.0 [facility] Comment on above: Performed By: #### C BC ####[place] [address]40 Hemoglobin (Bld) [Mass/Vol] 13.0 g/dL Low 13.5-17.5 [facility] Comment on above: Performed By: #### C BC ####[place] [address]22740 MCH (RBC) [Entitic mass] 29.5 pg Normal 27.0-35.0 [facility] Comment on above: Performed By: #### C BC ####[place] [address]40 MCHC 33.6 % Normal 31.0-37.0 [facility] Comment on above: Performed By: #### C BC ####[address] [address] MCV (RBC) [Entitic vol] 87.9 fL Normal 80.0-100.0 [facility] Comment on above: Performed By: #### C BC ####[place] [address]40 Platelet 235 x10*3/mcL Normal 150-450 [facility] Comment on above: Performed By: #### C BC ####[address] [address] Platelet mean volume (Bld) [Entitic vol] 7.1 fL Normal 6.7-10.6 [facility] Comment on above: Performed By: #### C BC ####[address] [address] RBC 4.40 x10*6/mcL Normal 4.30-5.80 [facility] Comment on above: Performed By: #### C BC ####[address] [address] WBC 9.4 x10*3/mcL Normal 4.5-11.0 [facility] Comment on above: Performed By: #### C BC ####[address] [address] CMPon 02-02-2024 Albumin [Mass/Vol] 3.7 g/dL Normal 3.2-4.9 [facility] Comment on above: Performed By: #### C OMP ####[address] [address] Albumin/Globulin [Mass ratio] 1.1 {ratio} Normal 1.1-2.2 [facility] Comment on above: Performed By: #### C OMP ####[address] [address] Alk Phos 91 IU/L Normal 32-91 [facility] Comment on above: Performed By: #### C OMP ####[address] [address] ALT [Catalytic activity/Vol] 21 U/L Normal 17-63 [facility] Comment on above: Performed By: #### C OMP ####[address] [address] AST [Catalytic activity/Vol] 27 U/L Normal 15-41 [facility] Comment on above: Performed By: #### C OMP ####[address] [address] Bili Total 0.4 mg/dL Normal 0.3-1.2 [facility] Comment on above: Performed By: #### C OMP ####[address] [address] Creatinine [Mass/Vol] 0.78 mg/dL Normal 0.61-1.24 [facility] Comment on above: Performed By: #### C OMP ####[address] [address] Protein [Mass/Vol] 7.2 g/dL Normal 6.5-8.1 [facility] Comment on above: Performed By: #### C OMP ####[address] [address] Urea nitrogen [Mass/Vol] 13 mg/dL Normal 8-26 [facility] Comment on above: Performed By: #### C OMP ####[address] [address] Urea nitrogen/Creatinine [Mass ratio] 16.7 mg/mg Normal 10.0-20.0 [facility] Comment on above: Performed By: #### C OMP ####[address] [address] Anion gap [Moles/Vol] 8 mmol/L Normal 4-12 [facility] Comment on above: Performed By: #### C OMP ####[address] [address] Calcium [Mass/Vol] 9.1 mg/dL Normal 8.5-10.3 [facility] Comment on above: Performed By: #### C OMP ####[address] [address] Chloride [Moles/Vol] 103 mmol/L Normal 98-110 [facility] Comment on above: Performed By: #### C OMP ####[address] [address] CO2 [Moles/Vol] 22 mmol/L Normal 22-32 [facility] Comment on above: Performed By: #### C OMP ####[address] [address] Glucose [Mass/Vol] 188 mg/dL High 70-99 [facility] Comment on above: Performed By: #### C OMP ####[address] [address] Potassium [Moles/Vol] 4.1 mmol/L Normal 3.4-4.8 [facility] Comment on above: Performed By: #### C OMP ####[address] [address] Sodium [Moles/Vol] 133 mmol/L Normal 133-142 [facility] Comment on above: Performed By: #### C OMP ####[address] [address] COV19 Rapidon 02-02-2024 LAB ONLY Result Called? No Normal [facility] Comment on above: Performed By: #### C D:[id number] ####[address] [address] Reason for Rapid Test Inpatient Normal [facility] Comment on above: Performed By: #### C D:[id number] ####[address] [address] SARS-CoV-2 (COVID-19) RNA RUTH+probe Ql (Unsp spec) Negative Normal Negative [facility] Comment on above: Result Comment: The [...] NOW COVID-19 2.0 assay performed on the [employer] NOW Instrument is a rapid molecular in vitro diagnostic test utilizing an isothermal nucleic acid amplification technology (NAAT) intended for the qualitative detection of nucleic acid from SARS-CoV-2 in direct anterior nasal (nasal) or nasopharyngeal swab specimens from individuals with signs and symptoms of respiratory tract infection. Performed By: #### C D:[id number] ####[place] [address]40 CRPon 02-02-2024 CRP 2.22 mg/dL High 0.00-0.75 [facility] Comment on above: Result Comment: CRP measurement is useful for assessment of non-specificINFLAMMATORY RESPONSE to infection or injury AND is asensitive MARKER of ACUTE INFLAMMATION including CARDIACRISK ASSESSMENT.CARDIAC patients with elevated CRP are POTENTIALLY at aHIGHER RISK OF FUTURE CARDIAC EVENTS. Performed By: #### C RP ####[place] [address] Crystalson 02-02-2024 Fluid For Crystal Analysis NoCrystals Seen Normal NoCrystals Seen [facility] Comment on above: Result Comment: Ster oid crystals may assume needle shapes mimicking CPPD and MSU crystals. Please review this patient's history for intra-articular steroid injection within two weeks prior to this crystal analysis. Performed By: #### F LCA ####[place] [address] Diff Autoon 02-02-2024 Baso Absolute 0.1 x10*3/mcL Normal 0.0-0.2 [facility] Comment on above: Performed By: #### . Automated Diff ####[place] [address]22740 Basophils/100 WBC (Bld) 1.0 % Normal 0.0-1.2 [facility] Comment on above: Performed By: #### . Automated Diff ####[place] [address]22740 Eos Absolute 0.3 x10*3/mcL Normal 0.0-0.4 [facility] Comment on above: Performed By: #### . Automated Diff ####[place] [address] Eosinophils/100 WBC (Bld) 3.0 % Normal 0.0-6.1 [facility] Comment on above: Performed By: #### . Automated Diff ####[address] [address] Lymph Absolute 1.6 x10*3/mcL Normal 1.0-4.8 [facility] Comment on above: Performed By: #### . Automated Diff ####[address] [address] Lymphocytes/100 WBC (Bld) 17.4 % Low 27.2-40.8 [facility] Comment on above: Performed By: #### . Automated Diff ####[address] [address] Dixie Absolute 0.7 x10*3/mcL Normal 0.3-1.1 [facility] Comment on above: Performed By: #### . Automated Diff ####[address] [address] Monocytes/100 WBC (Bld) 7.3 % Normal 4.7-13.9 [facility] Comment on above: Performed By: #### . Automated Diff ####[address] [address] Neutro Absolute 6.7 x10*3/mcL Normal 1.8-7.7 [facility] Comment on above: Performed By: #### . Automated Diff ####[place] [address]22740 Neutro Auto 71.3 % High 47.2-70.8 [facility] Comment on above: Performed By: #### . Automated Diff ####[place] [address]227[address] ED Clinical Summaryon 2023 ED Clinical Summary Normal [facility] ED Note-Nursingon 02-02-2024 ED Note-Nursing Delay in IV antibiotics from pharmacy. Pharmacy called to check on it and they said they are currently working on them. Electronically signed by Melani Stewart 02/02/24 12:50 EDT Normal [facility] ED Note-Physicianon 02-02-20 24 ED Note-Physician Normal [facility] ESRon 02-02-2024 Sed Rate 30 mm/hr High 0-23 [facility] Comment on above: Performed By: #### E SR ####[address] [address] Lactic Acid, 3 Houron 2023 Lactic Acid, 3 Hr 1.2 mmol/L Normal 0.5-2.0 [facility] Comment on above: Order Comment: Order ed by Discern Rule. Performed By: #### C [id number] ####[address] [address] Lactic Acid, Initial w/Rflx 3 Houron 02-02-2024 Lactic Acid, Initial 2.2 mmol/L High 0.5-2.0 [facility] Comment on above: Performed By: #### C [id number] ####[address] [address] MRSA, PCRon 02-02-2024 LAB ONLY Result Called? No Normal [facility] Comment on above: Performed By: #### M RSAPC ####[address] [address] Methicillin Resistant Staph aurus(MRSA) Not detected Normal Not Detected [facility] Comment on above: Result Comment: Mut ations or polymorphisms in primer or probe binding regions may affect detection of new or unknown MRSA variants resulting in a false negative. The [employer] Xpert MRSA Assay is a qualitative in [...] the clinician. Performed By: #### M RSAPC ####[place] [id number] POC Glucose Randomon 024 Glucose [Mass/Vol] 171 mg/dL High 70-99 [facility] Comment on above: Performed By: #### C [id number] ####[address] [address] Procalcitonin Levelon 2023 Procalcitonin Lvl <0.05 Normal <=0.49 [facility] Comment on above: Result Comment: < [...] to 24 hours. Performed By: #### C D:[id number] ####[address] [address] UA w Culture if Indon 2023 Color (U) Light-Yellow Normal Yellow [facility] Comment on above: Performed By: #### U CI ####[address] [address] Ketones Ql (U) Negative Normal Negative [facility] Comment on above: Performed By: #### U CI ####[address] [address] UA Blood Negative Normal Negative [facility] Comment on above: Performed By: #### U CI ####[address] [place] [address] UA Clarity Clear Normal Clear [facility] Comment on above: Performed By: #### U CI ####[address] [place] [address] UA Glucose Normal Normal Negative [facility] Comment on above: Performed By: #### U CI ####[address] [place] [address] UA Leukocyte Esterase Negative Normal Negative [facility] Comment on above: Performed By: #### U CI ####[address] [place] [address] UA Nitrite Negative Normal Negative [facility] Comment on above: Performed By: #### U CI ####[address] [place] [address] UA pH 6.5 Normal 4.5 - 7.8 [facility] Comment on above: Performed By: #### U CI ####[address] [place] [address] UA Protein Negative Normal Negative [facility] Comment on above: Performed By: #### U CI ####[address] [place] [address] UA Source Clean Catch Normal [facility] Comment on above: Performed By: #### U CI ####[address] [place] [address] UA Spec Grav 1.016 Normal 1.003-1.035 [facility] Comment on above: Performed By: #### U CI ####[address] [place] [address] UA Urobilinogen Normal Normal 0.2 - 1.0 [facility] Comment on above: Performed By: #### U CI ####[address] [address] Urobilinogen (U) [Mass/Vol] Negative Normal Negative [facility] Comment on above: Performed By: #### U ####[place] [address] [place] [address] MRI KNEE RIGHT WO CONTRASTon 01-01-2024 MRI [...] Cespedes MD - Fax Final result Normal [facility] Physician Referralon 024 Physician Referral [phone] [id number] #[id number] Normal [facility] C-Reactive Proteinon 024 CRP High sensitivity method [Mass/Vol] 32.1 mg/L High 0.0 - 5.0 mg/L [facility] Interpretation and review of laboratory results Abnormal [facility] CRP [Mass/Vol] 32.1 mg/L High 0.0-5.0 [facility] in Hospital Comment on above: Performed By: #### S ED, CRP #### [facility] [address] [place] [address] Poultry Raiser: Oliver Cabrera MD Sedimentation Rateon 024 ESR Photometric method (Bld) [Velocity] 2 [facility] Sedimentation Rate 2 mm/Hr Normal 0-20 [facility] Comment on above: Performed By: #### S ED, CRP #### [facility] [address] [place] [address] Poultry Raiser: Olivre Cabrera MD Basic Metabolic Panelon 10-19 Anion gap [Moles/Vol] 12.2 mmol/L Normal 6.0-15.0 [facility] Comment on above: Performed By: #### C RP, CUBLD, CBC, BMP, LACTIC #### [facility] [address] [place] [address] [place] Calcium [Mass/Vol] 9.3 mg/dL Normal 8.6-10.3 [facility] Comment on above: Performed By: #### C RP, CUBLD, CBC, BMP, LACTIC #### [facility] [address] [place] [address] [place] Chloride [Moles/Vol] 102 mmol/L Normal 98-107 [facility] Comment on above: Performed By: #### C RP, CUBLD, CBC, BMP, LACTIC #### [facility] [address] [place] [address] [place] CO2 [Moles/Vol] 25.8 mmol/L Normal 21.0-31.0 [facility] Comment on above: Performed By: #### C RP, CUBLD, CBC, BMP, LACTIC #### [facility] [address] Creatinine [Mass/Vol] 0.74 mg/dL Normal 0.70-1.30 [facility] Comment on above: Performed By: #### C RP, CUBLD, CBC, BMP, LACTIC #### [facility] [address] [place] [address] [place] Creatinine Clr Calc Pharmacy 141.03 [facility] Comment on above: Result Comment: PERF ORMED BY: [place] [address] PATHOLOGIST MANAGER [employer] AMEENA HERNADEZ M.D. Performed By: #### C RP, CUBLD, CBC, BMP, LACTIC #### [facility] [address] [place] [address] [place] GFR/1.73 sq M.predicted MDRD (S/P/Bld) [Vol rate/Area] mL/min/{1.73_m2} [facility] Comment on above: Performed By: #### C RP, CUBLD, CBC, BMP, LACTIC #### [address] Glucose [Mass/Vol] 61 mg/dL Low 70-100 [facility] Comment on above: Result Comment: [place] Glucose Reference Range is dependent on time and content of last meal. Glucose of more than 200 mg/dL in a nonstressed, ambulatory subject supports the diagnosis of Diabetes Mellitus. ADA recommended reference range Performed By: #### C RP, CUBLD, CBC, BMP, LACTIC #### [facility] [address] [place] [address] [place] Potassium [Moles/Vol] 4.0 mmol/L Normal 3.5-5.1 [facility] Comment on above: Performed By: #### C RP, CUBLD, CBC, BMP, LACTIC #### [facility] [address] Sodium [Moles/Vol] 136 mmol/L Normal 136-145 [facility] Comment on above: Performed By: #### C RP, CUBLD, CBC, BMP, LACTIC #### [facility] [address] [place] [address] Urea nitrogen [Mass/Vol] 19 mg/dL Normal 7-25 [facility] Comment on above: Performed By: #### C RP, CUBLD, CBC, BMP, LACTIC #### [facility] [address] [place] [address] Blood Cultureon 11-04-2023 Bacteria identified Cx Nom (Bld) NO GROWTH 5 DAYS PERFORMED BY: [place] [address] PATHOLOGIST MANAGER [employer] AMEENA HERNADEZ M.D. [facility] Comment on above: Performed By: #### C RP, CUBLD, CBC, BMP, LACTIC #### [address] Bacteria identified Cx Nom (Bld) NO GROWTH 5 DAYS PERFORMED BY: [place] [address] PATHOLOGIST MANAGER [employer] AMEENA HERNADEZ M.D. [facility] Comment on above: Performed By: #### C RP, CUBLD, CBC, BMP, LACTIC #### [address] C-Reactive Proteinon 024 C-Reactive Protein 1.8 mg/dL High 0.0-0.5 [facility] Comment on above: Result Comment: PERF ORMED BY: [place] [address] PATHOLOGIST MANAGER [employer] AMEENA HERNADEZ M.D. Performed By: #### C RP, CUBLD, CBC, BMP, LACTIC #### [address] knee LT w conon CT knee LT w con [facility] [place] [address] [place] [address] CT Scan Report Signed Patient: Joie Lu MR#: [id number] : 1955 Acct:[id number] Age/Sex: 68 / M ADM Date: 11/04/23 Loc: ER Room: Type: [facility] ER Attending Dr: Copies to: [...] Alanis Jr., D.O.11/04/2023 8:30 PM Dictation Location: [place] [address] Transcribed By: [facility] 11/04/232029 Dictated By: Wilfrido Alanis Jr, DO 11/04/232004 Signed By: 11/04/232029 Normal [facility] Complete Blood Count Auto Di ffon 11-04-2023 Basophils (Bld) [#/Vol] 0.0 10*3/uL Normal 0.0-0.2 [facility] Comment on above: Result Comment: PERF ORMED BY: [place] [address] PATHOLOGIST MANAGER [employer] AMEENA HERNADEZ M.D. Performed By: #### C RP, CUBLD, CBC, BMP, LACTIC #### [address] Basophils/100 WBC (Bld) 0.3 % Normal . [facility] Comment on above: Performed By: #### C RP, CUBLD, CBC, BMP, LACTIC #### [address] Eosinophils (Bld) [#/Vol] 0.1 10*3/uL Normal 0.0-0.45 [facility] Comment on above: Performed By: #### C RP, CUBLD, CBC, BMP, LACTIC #### [address] Eosinophils/100 WBC (Bld) 0.9 % Normal . [facility] Comment on above: Performed By: #### C RP, CUBLD, CBC, BMP, LACTIC #### [address] Erythrocyte distribution width (RBC) [Ratio] 13.9 % Normal 12.0-14.8 [facility] Comment on above: Performed By: #### C RP, CUBLD, CBC, BMP, LACTIC #### [address] Hematocrit (Bld) [Volume fraction] 37.4 % Low 38.8-50.0 [facility] Comment on above: Performed By: #### C RP, CUBLD, CBC, BMP, LACTIC #### [place] [address] [place] Hemoglobin (Bld) [Mass/Vol] 12.5 g/dL Low 13.0-17.0 [facility] Comment on above: Performed By: #### C RP, CUBLD, CBC, BMP, LACTIC #### [address] Lymphocytes (Bld) [#/Vol] 2.0 10*3/uL Normal 1.00-4.8 [facility] Comment on above: Performed By: #### C RP, CUBLD, CBC, BMP, LACTIC #### [address] Lymphocytes/100 WBC (Bld) 15.9 % Normal . [facility] Comment on above: Performed By: #### C RP, CUBLD, CBC, BMP, LACTIC #### [address] MCH (RBC) [Entitic mass] 28.6 pg Normal 27.5-35.2 [facility] Comment on above: Performed By: #### C RP, CUBLD, CBC, BMP, LACTIC #### [address] MCV (RBC) [Entitic vol] 85.9 fL Normal 83.5-101 [facility] Comment on above: Performed By: #### C RP, CUBLD, CBC, BMP, LACTIC #### [address] Mean Corpuscular HGB Conc 33.3 g/dL Normal 32.5-35.6 [facility] Comment on above: Performed By: #### C RP, CUBLD, CBC, BMP, LACTIC #### [address] Monocytes (Bld) [#/Vol] 1.0 10*3/uL High 0.0-0.8 [facility] Comment on above: Performed By: #### C RP, CUBLD, CBC, BMP, LACTIC #### [address] Monocytes/100 WBC (Bld) 18.26 % Normal 0.00-20.00 [facility] Comment on above: Performed By: #### C RP, CUBLD, CBC, BMP, LACTIC #### [address] Monocytes/100 WBC (Bld) 8.1 % Normal . [facility] Comment on above: Performed By: #### C RP, CUBLD, CBC, BMP, LACTIC #### [address] Neutrophils (Bld) [#/Vol] 9.3 10*3/uL High 1.8-7.7 [facility] Comment on above: Performed By: #### C RP, CUBLD, CBC, BMP, LACTIC #### [address] Neutrophils/100 WBC (Bld) 74.8 % Normal . [facility] Comment on above: Performed By: #### C RP, CUBLD, CBC, BMP, LACTIC #### [address] NRBC% 0.0 /100{WBC} Normal 0-0.5 [facility] Comment on above: Performed By: #### C RP, CUBLD, CBC, BMP, LACTIC #### [address] Platelet mean volume (Bld) [Entitic vol] 6.8 fL Normal 6.6-10.1 [facility] Comment on above: Performed By: #### C RP, CUBLD, CBC, BMP, LACTIC #### [address] Platelets (Bld) [#/Vol] 221 10*3/uL Normal 150-450 [facility] Comment on above: Performed By: #### C RP, CUBLD, CBC, BMP, LACTIC #### [address] RBC (Bld) [#/Vol] 4.36 10*6/uL Normal 3.90-5.60 [facility] Comment on above: Performed By: #### C RP, CUBLD, CBC, BMP, LACTIC #### [facility] [address] WBC (Bld) [#/Vol] 12.4 10*3/uL High 4.1-10.5 [facility] Comment on above: Performed By: #### C RP, CUBLD, CBC, BMP, LACTIC #### [facility] [address] Erythrocyte Sedimentation Ra yossi 11-04-2023 ESR (Bld) [Velocity] 15 mm/h Normal 0-19 [facility] Comment on above: Result Comment: PERF ORMED BY: [place] [address] PATHOLOGIST MANAGER [employer] AMEENA HERNADEZ M.D. Performed By: #### E SR #### [facility] [address] [place] [address] Lactic Acidon 11-04-2023 Lactate [Moles/Vol] 1.8 mmol/L Normal 0.5-2.2 [facility] Comment on above: Result Comment: PERF ORMED BY: [place] [address] PATHOLOGIST MANAGER [employer] AMEENA HERNADEZ M.D. Performed By: #### C RP, CUBLD, CBC, BMP, LACTIC #### [facility] [address] [place] [address] CRPon 11-03-2023 CRP 1.88 mg/dL High 0.00-0.75 [facility] Comment on above: Result Comment: CRP measurement is useful for assessment of non-specificINFLAMMATORY RESPONSE to infection or injury AND is asensitive MARKER of ACUTE INFLAMMATION including CARDIACRISK ASSESSMENT.CARDIAC patients with elevated CRP are POTENTIALLY at aHIGHER RISK OF FUTURE CARDIAC EVENTS. Performed By: #### C RP ####[place] [address] [place] [address] ESRon 11-03-2023 Sed Rate 14 mm/hr Normal 0-23 [facility] Comment on above: Performed By: #### E SR ####[place] [address] [place] [address] Infectious Disease Office/Cl inic Noteon 11-03-2023 Infectious Disease Office/Clinic Note Normal [facility] Provider Letteron 11-03-2023 Provider Letter Normal [facility] Long-term Care Office/Clinic Noteon 09-01-2023 Long-term Care Office/Clinic Note Normal [facility] .eGFRon 08-31-2023 GFR/1.73 sq M.predicted MDRD (S/P/Bld) [Vol rate/Area] mL/min/{1.73_m2} Normal >=60 [facility] Comment on above: Result Comment: [facility] [...] = years Performed By: #### E GFR ####[address] [address] CBC w/ Diffon 08-31-2023 Erythrocyte distribution width (RBC) [Ratio] 13.9 % Normal 11.6-14.8 [facility] Comment on above: Performed By: #### C BC ####[address] [address] Hematocrit (Bld) [Volume fraction] 36.6 % Low 41.0-53.0 [facility] Comment on above: Performed By: #### C BC ####[address] [address] Hemoglobin (Bld) [Mass/Vol] 12.2 g/dL Low 13.5-17.5 [facility] Comment on above: Performed By: #### C BC ####[address] [address] MCH (RBC) [Entitic mass] 30.1 pg Normal 27.0-35.0 [facility] Comment on above: Performed By: #### C BC ####[address] [address] MCHC 33.3 % Normal 31.0-37.0 [facility] Comment on above: Performed By: #### C BC ####[address] [address] MCV (RBC) [Entitic vol] 90.4 fL Normal 80.0-100.0 [facility] Comment on above: Performed By: #### C BC ####[address] [address] Platelet 138 x10*3/mcL Low 150-450 [facility] Comment on above: Performed By: #### C BC ####[address] [address] Platelet mean volume (Bld) [Entitic vol] 8.4 fL Normal 6.7-10.6 [facility] Comment on above: Performed By: #### C BC ####[address] [address] RBC 4.05 x10*6/mcL Low 4.30-5.80 [facility] Comment on above: Performed By: #### C BC ####[address] [address] WBC 6.9 x10*3/mcL Normal 4.5-11.0 [facility] Comment on above: Performed By: #### C BC ####[address] [place] [address] CMPon 08-31-2023 Albumin [Mass/Vol] 3.7 g/dL Normal 3.2-4.9 [facility] Comment on above: Performed By: #### C OMP ####[address] [address] Albumin/Globulin [Mass ratio] 1.2 {ratio} Normal 1.1-2.2 [facility] Comment on above: Performed By: #### C OMP ####[address] [address] Alk Phos 83 IU/L Normal 32-91 [facility] Comment on above: Performed By: #### C OMP ####[address] [address] ALT [Catalytic activity/Vol] 14 U/L Low 17-63 [facility] Comment on above: Performed By: #### C OMP ####[address] [address] Anion gap [Moles/Vol] 11 mmol/L Normal 7-17 [facility] Comment on above: Performed By: #### C OMP ####[address] [address] AST [Catalytic activity/Vol] 16 U/L Normal 15-41 [facility] Comment on above: Performed By: #### C OMP ####[address] [address] Bili Total 0.3 mg/dL Normal 0.3-1.2 [facility] Comment on above: Performed By: #### C OMP ####[address] [address] Calcium [Mass/Vol] 8.8 mg/dL Normal 8.5-10.3 [facility] Comment on above: Performed By: #### C OMP ####[address] [address] Chloride [Moles/Vol] 99 mmol/L Normal 98-110 [facility] Comment on above: Performed By: #### C OMP ####[address] [address] CO2 [Moles/Vol] 26 mmol/L Normal 22-32 [facility] Comment on above: Performed By: #### C OMP ####[address] [address] Creatinine [Mass/Vol] 0.78 mg/dL Normal 0.61-1.24 [facility] Comment on above: Performed By: #### C OMP ####[address] [address] Glucose [Mass/Vol] 211 mg/dL High 70-99 [facility] Comment on above: Performed By: #### C OMP ####[address] [address] Potassium [Moles/Vol] 4.3 mmol/L Normal 3.4-4.8 [facility] Comment on above: Performed By: #### C OMP ####[address] [address] Protein [Mass/Vol] 6.7 g/dL Normal 6.5-8.1 [facility] Comment on above: Performed By: #### C OMP ####[address] [address] Sodium [Moles/Vol] 132 mmol/L Low 133-142 [facility] Comment on above: Performed By: #### C OMP ####[address] [address] Urea nitrogen [Mass/Vol] 19 mg/dL Normal 8-26 [facility] Comment on above: Performed By: #### C OMP ####[address] [address] Urea nitrogen/Creatinine [Mass ratio] 24.4 mg/mg High 10.0-20.0 [facility] Comment on above: Performed By: #### C OMP ####[address] [address] CRPon 08-31-2023 CRP 0.61 mg/dL Normal 0.00-0.75 [facility] Comment on above: Result Comment: CRP measurement is useful for assessment of non-specificINFLAMMATORY RESPONSE to infection or injury AND is asensitive MARKER of ACUTE INFLAMMATION including CARDIACRISK ASSESSMENT.CARDIAC patients with elevated CRP are POTENTIALLY at aHIGHER RISK OF FUTURE CARDIAC EVENTS. Performed By: #### C RP ####[address] [address] Diff Autoon 08-31-2023 Baso Absolute 0.1 x10*3/mcL Normal 0.0-0.2 [facility] Comment on above: Performed By: #### . Automated Diff ####[address] [address] Basophils/100 WBC (Bld) 1.2 % Normal 0.0-1.2 [facility] Comment on above: Performed By: #### . Automated Diff ####[address] [address] Eos Absolute 0.5 x10*3/mcL High 0.0-0.4 [facility] Comment on above: Performed By: #### . Automated Diff ####[address] [address] Eosinophils/100 WBC (Bld) 8.0 % High 0.0-6.1 [facility] Comment on above: Performed By: #### . Automated Diff ####[address] [address] Lymph Absolute 1.5 x10*3/mcL Normal 1.0-4.8 [facility] Comment on above: Performed By: #### . Automated Diff ####[address] [address] Lymphocytes/100 WBC (Bld) 21.2 % Low 27.2-40.8 [facility] Comment on above: Performed By: #### . Automated Diff ####[address] [address] [place] Absolute 0.7 x10*3/mcL Normal 0.3-1.1 [facility] Comment on above: Performed By: #### . Automated Diff ####[place] [address] Monocytes/100 WBC (Bld) 10.1 % Normal 4.7-13.9 [facility] Comment on above: Performed By: #### . Automated Diff ####[place] [address] Neutro Absolute 4.1 x10*3/mcL Normal 1.8-7.7 [facility] Comment on above: Performed By: #### . Automated Diff ####[place] [address] Neutro Auto 59.5 % Normal 47.2-70.8 [facility] Comment on above: Performed By: #### . Automated Diff ####[place] [address] ESRon 08-31-2023 Sed Rate 10 mm/hr Normal 0-23 [facility] Comment on above: Performed By: #### E SR ####[place] [address] Infectious Disease Office/Cl inic Noteon 08-31-2023 Infectious Disease Office/Clinic Note Normal [facility] Vanco Troughon 08-31-2023 Vanco Trough 15.70 mcg/mL High 10.00-15.00 [facility] Comment on above: Performed By: #### V ANCT ####[place] [address] .eGFRon 08-27-2023 GFR/1.73 sq M.predicted MDRD (S/P/Bld) [Vol rate/Area] mL/min/{1.73_m2} Normal >=60 [facility] Comment on above: Result Comment: [facility] [...] = years Performed By: #### E GFR ####[place] [address] BUNon 08-27-2023 Urea nitrogen [Mass/Vol] 16 mg/dL Normal 8-26 [facility] Comment on above: Performed By: #### B UN ####[place] [id number] Creatinineon 08-27-2023 Creatinine [Mass/Vol] 0.76 mg/dL Normal 0.61-1.24 [facility] Comment on above: Performed By: #### C CORNELIO ####[address] [address] Vanco Troughon 08-27-2023 Vanco Trough 11.40 mcg/mL Normal 10.00-15.00 [facility] Comment on above: Performed By: #### V ANCT ####[place] [address] .eGFRon 08-24-2023 GFR/1.73 sq M.predicted MDRD (S/P/Bld) [Vol rate/Area] mL/min/{1.73_m2} Normal >=60 [facility] Comment on above: Result Comment: [facility] [...] = years Performed By: #### E GFR ####[place] [address] CBC w/ Diffon 08-24-2023 Erythrocyte distribution width (RBC) [Ratio] 14.0 % Normal 11.6-14.8 [facility] Comment on above: Performed By: #### C BC ####[place] [id number] Hematocrit (Bld) [Volume fraction] 36.3 % Low 41.0-53.0 [facility] Comment on above: Performed By: #### C BC ####[place] [address] Hemoglobin (Bld) [Mass/Vol] 12.1 g/dL Low 13.5-17.5 [facility] Comment on above: Performed By: #### C BC ####[place] [id number] MCH (RBC) [Entitic mass] 30.6 pg Normal 27.0-35.0 [facility] Comment on above: Performed By: #### C BC ####[place] [address] MCHC 33.4 % Normal 31.0-37.0 [facility] Comment on above: Performed By: #### C BC ####[address] [address] MCV (RBC) [Entitic vol] 91.8 fL Normal 80.0-100.0 [facility] Comment on above: Performed By: #### C BC ####[address] [address] Platelet 127 x10*3/mcL Low 150-450 [facility] Comment on above: Performed By: #### C BC ####[address] [address] Platelet mean volume (Bld) [Entitic vol] 8.3 fL Normal 6.7-10.6 [facility] Comment on above: Performed By: #### C BC ####[address] [address] RBC 3.95 x10*6/mcL Low 4.30-5.80 [facility] Comment on above: Performed By: #### C BC ####[address] [address] WBC 6.8 x10*3/mcL Normal 4.5-11.0 [facility] Comment on above: Performed By: #### C BC ####[address] [address] CMPon 08-24-2023 Albumin [Mass/Vol] 3.5 g/dL Normal 3.2-4.9 [facility] Comment on above: Performed By: #### C OMP ####[address] [address] Albumin/Globulin [Mass ratio] 1.1 {ratio} Normal 1.1-2.2 [facility] Comment on above: Performed By: #### C OMP ####[address] [address] Alk Phos 86 IU/L Normal 32-91 [facility] Comment on above: Performed By: #### C OMP ####[place] [id number] ALT [Catalytic activity/Vol] 18 U/L Normal 17-63 [facility] Comment on above: Performed By: #### C OMP ####[address] [address] Anion gap [Moles/Vol] 14 mmol/L Normal 7-17 [facility] Comment on above: Performed By: #### C OMP ####[address] [address] AST [Catalytic activity/Vol] 20 U/L Normal 15-41 [facility] Comment on above: Performed By: #### C OMP ####[address] [address] Bili Total 0.2 mg/dL Low 0.3-1.2 [facility] Comment on above: Performed By: #### C OMP ####[address] [address] Calcium [Mass/Vol] 9.0 mg/dL Normal 8.5-10.3 [facility] Comment on above: Performed By: #### C OMP ####[address] [address] Chloride [Moles/Vol] 98 mmol/L Normal 98-110 [facility] Comment on above: Performed By: #### C OMP ####[address] [address] CO2 [Moles/Vol] 26 mmol/L Normal 22-32 [facility] Comment on above: Performed By: #### C OMP ####[address] [address] Creatinine [Mass/Vol] 0.80 mg/dL Normal 0.61-1.24 [facility] Comment on above: Performed By: #### C OMP ####[address] [address] Glucose [Mass/Vol] 243 mg/dL High 70-99 [facility] Comment on above: Performed By: #### C OMP ####[address] [address] Potassium [Moles/Vol] 4.8 mmol/L Normal 3.4-4.8 [facility] Comment on above: Performed By: #### C OMP ####[address] [address] Protein [Mass/Vol] 6.8 g/dL Normal 6.5-8.1 [facility] Comment on above: Performed By: #### C OMP ####[address] [address] Sodium [Moles/Vol] 133 mmol/L Normal 133-142 [facility] Comment on above: Performed By: #### C OMP ####[place] [id number] Urea nitrogen [Mass/Vol] 17 mg/dL Normal 8-26 [facility] Comment on above: Performed By: #### C OMP ####[place] [address] Urea nitrogen/Creatinine [Mass ratio] 21.2 mg/mg High 10.0-20.0 [facility] Comment on above: Performed By: #### C OMP ####[address] [address] CRPon 08-24-2023 CRP 0.98 mg/dL High 0.00-0.75 [facility] Comment on above: Result Comment: CRP measurement is useful for assessment of non-specificINFLAMMATORY RESPONSE to infection or injury AND is asensitive MARKER of ACUTE INFLAMMATION including CARDIACRISK ASSESSMENT.CARDIAC patients with elevated CRP are POTENTIALLY at aHIGHER RISK OF FUTURE CARDIAC EVENTS. Performed By: #### C RP ####[address] [address] Diff Autoon 08-24-2023 Baso Absolute 0.1 x10*3/mcL Normal 0.0-0.2 [facility] Comment on above: Performed By: #### . Automated Diff ####[place] [id number] Basophils/100 WBC (Bld) 1.1 % Normal 0.0-1.2 [facility] Comment on above: Performed By: #### . Automated Diff ####[address] [address] Eos Absolute 0.6 x10*3/mcL High 0.0-0.4 [facility] Comment on above: Performed By: #### . Automated Diff ####[address] [address] Eosinophils/100 WBC (Bld) 9.0 % High 0.0-6.1 [facility] Comment on above: Performed By: #### . Automated Diff ####[address] [address] Lymph Absolute 1.2 x10*3/mcL Normal 1.0-4.8 [facility] Comment on above: Performed By: #### . Automated Diff ####[address] [address] Lymphocytes/100 WBC (Bld) 18.2 % Low 27.2-40.8 [facility] Comment on above: Performed By: #### . Automated Diff ####[address] [address] [place] Absolute 0.6 x10*3/mcL Normal 0.3-1.1 [facility] Comment on above: Performed By: #### . Automated Diff ####[address] [address] Monocytes/100 WBC (Bld) 8.1 % Normal 4.7-13.9 [facility] Comment on above: Performed By: #### . Automated Diff ####[address] [address] Neutro Absolute 4.3 x10*3/mcL Normal 1.8-7.7 [facility] Comment on above: Performed By: #### . Automated Diff ####[address] [address] Neutro Auto 63.6 % Normal 47.2-70.8 [facility] Comment on above: Performed By: #### . Automated Diff ####[address] [address] ESRon 08-24-2023 Sed Rate 13 mm/hr Normal 0-23 [facility] Comment on above: Performed By: #### E SR ####[address] [address] Vanco Troughon 08-24-2023 Vanco Trough 14.40 mcg/mL Normal 10.00-15.00 [facility] Comment on above: Performed By: #### V ANCT ####[address] [address] Vanco Troughon 08-21-2023 Vanco Trough 35.70 mcg/mL High 10.00-15.00 [facility] Comment on above: Performed By: #### V ANCT ####[address] [address] .eGFRon 08-20-2023 GFR/1.73 sq M.predicted MDRD (S/P/Bld) [Vol rate/Area] mL/min/{1.73_m2} Normal >=60 [facility] Comment on above: Result Comment: [facility] [...] = years Performed By: #### E GFR ####[address] [address] C Fungalon 08-20-2023 C Fungal ------- Final No growth at 4 weeks. Normal [facility] Comment on above: Performed By: #### F C ####[address] [address] CMPon 08-20-2023 Albumin [Mass/Vol] 3.4 g/dL Normal 3.2-4.9 [facility] Comment on above: Performed By: #### C OMP ####[address] [address] Albumin/Globulin [Mass ratio] 1.1 {ratio} Normal 1.1-2.2 [facility] Comment on above: Performed By: #### C OMP ####[address] [address] Alk Phos 88 IU/L Normal 32-91 [facility] Comment on above: Performed By: #### C OMP ####[address] [address] ALT [Catalytic activity/Vol] 25 U/L Normal 17-63 [facility] Comment on above: Performed By: #### C OMP ####[address] [address] Anion gap [Moles/Vol] 13 mmol/L Normal 7-17 [facility] Comment on above: Performed By: #### C OMP ####[address] [address] AST [Catalytic activity/Vol] 23 U/L Normal 15-41 [facility] Comment on above: Performed By: #### C OMP ####[address] [address] Bili Total 0.3 mg/dL Normal 0.3-1.2 [facility] Comment on above: Performed By: #### C OMP ####[address] [address] Calcium [Mass/Vol] 8.8 mg/dL Normal 8.5-10.3 [facility] Comment on above: Performed By: #### C OMP ####[address] [address] Chloride [Moles/Vol] 99 mmol/L Normal 98-110 [facility] Comment on above: Performed By: #### C OMP ####[address] [address] CO2 [Moles/Vol] 24 mmol/L Normal 22-32 [facility] Comment on above: Performed By: #### C OMP ####[address] [address] Creatinine [Mass/Vol] 0.72 mg/dL Normal 0.61-1.24 [facility] Comment on above: Performed By: #### C OMP ####[address] [address] Glucose [Mass/Vol] 260 mg/dL High 70-99 [facility] Comment on above: Performed By: #### C OMP ####[address] [address] Potassium [Moles/Vol] 5.3 mmol/L High 3.4-4.8 [facility] Comment on above: Performed By: #### C OMP ####[address] [address] Protein [Mass/Vol] 6.4 g/dL Low 6.5-8.1 [facility] Comment on above: Performed By: #### C OMP ####[address] [address] Sodium [Moles/Vol] 131 mmol/L Low 133-142 [facility] Comment on above: Performed By: #### C OMP ####[address] [address] Urea nitrogen [Mass/Vol] 14 mg/dL Normal 8-26 [facility] Comment on above: Performed By: #### C OMP ####[address] [address] Urea nitrogen/Creatinine [Mass ratio] 19.4 mg/mg Normal 10.0-20.0 [facility] Comment on above: Performed By: #### C OMP ####[address] [address] Vanco Levelon 08-20-2023 Vanco Lvl 35.7 mcg/mL Normal 10.0-40.0 [facility] Comment on above: Result Comment: Ther apeutic Range for Vancomycin:Peak: 20.0 - 40.0 mcg/mLTrough: 10.0 - 15.0 mcg/mL Performed By: #### V ANC ####[address] [address] C Fungalon 08-19-2023 C Fungal ------- Final No growth at 4 weeks. Normal [facility] Comment on above: Performed By: #### F C ####[address] [address] .eGFRon 08-17-2023 GFR/1.73 sq M.predicted MDRD (S/P/Bld) [Vol rate/Area] mL/min/{1.73_m2} Normal >=60 [facility] Comment on above: Result Comment: [facility] [...] = years Performed By: #### E GFR ####[place] [address] CBC w/ Diffon 08-17-2023 Erythrocyte distribution width (RBC) [Ratio] 14.3 % Normal 11.6-14.8 [facility] Comment on above: Performed By: #### C BC ####[address] [address] Hematocrit (Bld) [Volume fraction] 35.5 % Low 41.0-53.0 [facility] Comment on above: Performed By: #### C BC ####[address] [address] Hemoglobin (Bld) [Mass/Vol] 12.0 g/dL Low 13.5-17.5 [facility] Comment on above: Performed By: #### C BC ####[address] [address] MCH (RBC) [Entitic mass] 31.1 pg Normal 27.0-35.0 [facility] Comment on above: Performed By: #### C BC ####[address] [address] MCHC 33.9 % Normal 31.0-37.0 [facility] Comment on above: Performed By: #### C BC ####[place] [id number] MCV (RBC) [Entitic vol] 91.8 fL Normal 80.0-100.0 [facility] Comment on above: Performed By: #### C BC ####[place] [id number] Platelet 139 x10*3/mcL Low 150-450 [facility] Comment on above: Performed By: #### C BC ####[place] [id number] Platelet mean volume (Bld) [Entitic vol] 8.4 fL Normal 6.7-10.6 [facility] Comment on above: Performed By: #### C BC ####[place] [address] RBC 3.87 x10*6/mcL Low 4.30-5.80 [facility] Comment on above: Performed By: #### C BC ####[place] [id number] WBC 6.2 x10*3/mcL Normal 4.5-11.0 [facility] Comment on above: Performed By: #### C BC ####[place] [address] CMPon 08-17-2023 Albumin [Mass/Vol] 3.7 g/dL Normal 3.2-4.9 [facility] Comment on above: Performed By: #### C OMP ####[place] [id number] Albumin/Globulin [Mass ratio] 1.1 {ratio} Normal 1.1-2.2 [facility] Comment on above: Performed By: #### C OMP ####[place] [id number] Alk Phos 101 IU/L High 32-91 [facility] Comment on above: Performed By: #### C OMP ####[place] [id number] ALT [Catalytic activity/Vol] 27 U/L Normal 17-63 [facility] Comment on above: Performed By: #### C OMP ####[address] [place] [address] Anion gap [Moles/Vol] 13 mmol/L Normal 7-17 [facility] Comment on above: Performed By: #### C OMP ####[address] [place] [address] AST [Catalytic activity/Vol] 23 U/L Normal 15-41 [facility] Comment on above: Performed By: #### C OMP ####[address] [place] [address] Bili Total 0.3 mg/dL Normal 0.3-1.2 [facility] Comment on above: Performed By: #### C OMP ####[address] [place] [address] Calcium [Mass/Vol] 8.8 mg/dL Normal 8.5-10.3 [facility] Comment on above: Performed By: #### C OMP ####[address] [place] [address] Chloride [Moles/Vol] 97 mmol/L Low 98-110 [facility] Comment on above: Performed By: #### C OMP ####[address] [place] [address] CO2 [Moles/Vol] 26 mmol/L Normal 22-32 [facility] Comment on above: Performed By: #### C OMP ####[address] [place] [address] Creatinine [Mass/Vol] 0.70 mg/dL Normal 0.61-1.24 [facility] Comment on above: Performed By: #### C OMP ####[address] [place] [address] Glucose [Mass/Vol] 119 mg/dL High 70-99 [facility] Comment on above: Performed By: #### C OMP ####[address] [place] [address] Potassium [Moles/Vol] 4.4 mmol/L Normal 3.4-4.8 [facility] Comment on above: Performed By: #### C OMP ####[address] [address] Protein [Mass/Vol] 7.0 g/dL Normal 6.5-8.1 [facility] Comment on above: Performed By: #### C OMP ####[address] [address] Sodium [Moles/Vol] 132 mmol/L Low 133-142 [facility] Comment on above: Performed By: #### C OMP ####[address] [address] Urea nitrogen [Mass/Vol] 14 mg/dL Normal 8-26 [facility] Comment on above: Performed By: #### C OMP ####[address] [address] Urea nitrogen/Creatinine [Mass ratio] 20.0 mg/mg Normal 10.0-20.0 [facility] Comment on above: Performed By: #### C OMP ####[address] [address] CRPon 08-17-2023 CRP 1.33 mg/dL High 0.00-0.75 [facility] Comment on above: Result Comment: CRP measurement is useful for assessment of non-specificINFLAMMATORY RESPONSE to infection or injury AND is asensitive MARKER of ACUTE INFLAMMATION including CARDIACRISK ASSESSMENT.CARDIAC patients with elevated CRP are POTENTIALLY at aHIGHER RISK OF FUTURE CARDIAC EVENTS. Performed By: #### C RP ####[address] [address] Diff Autoon 08-17-2023 Baso Absolute 0.1 x10*3/mcL Normal 0.0-0.2 [facility] Comment on above: Performed By: #### . Automated Diff ####[address] [address] Basophils/100 WBC (Bld) 1.3 % High 0.0-1.2 [facility] Comment on above: Performed By: #### . Automated Diff ####[address] [address] Eos Absolute 0.7 x10*3/mcL High 0.0-0.4 [facility] Comment on above: Performed By: #### . Automated Diff ####[address] [address] Eosinophils/100 WBC (Bld) 12.0 % High 0.0-6.1 [facility] Comment on above: Performed By: #### . Automated Diff ####[address] [address] Lymph Absolute 1.4 x10*3/mcL Normal 1.0-4.8 [facility] Comment on above: Performed By: #### . Automated Diff ####[address] [address] Lymphocytes/100 WBC (Bld) 23.2 % Low 27.2-40.8 [facility] Comment on above: Performed By: #### . Automated Diff ####[address] [address] Dixie Absolute 0.7 x10*3/mcL Normal 0.3-1.1 [facility] Comment on above: Performed By: #### . Automated Diff ####[address] [address] Monocytes/100 WBC (Bld) 11.1 % Normal 4.7-13.9 [facility] Comment on above: Performed By: #### . Automated Diff ####[address] [address] Neutro Absolute 3.2 x10*3/mcL Normal 1.8-7.7 [facility] Comment on above: Performed By: #### . Automated Diff ####[address] [address] Neutro Auto 52.4 % Normal 47.2-70.8 [facility] Comment on above: Performed By: #### . Automated Diff ####[place] [address] ESRon 08-17-2023 Sed Rate 15 mm/hr Normal 0-23 [facility] Comment on above: Performed By: #### E SR ####[place] [address] Long-term Care Office/Clinic Noteon 08-17-2023 Long-term Care Office/Clinic Note Normal [facility] Vanco Troughon 08-17-2023 Vanco Trough 20.80 mcg/mL High 10.00-15.00 [facility] Comment on above: Performed By: #### V ANCT ####[place] [id number] .eGFRon 08-13-2023 GFR/1.73 sq M.predicted MDRD (S/P/Bld) [Vol rate/Area] mL/min/{1.73_m2} Normal >=60 [facility] Comment on above: Result Comment: [facility] [...] = years Performed By: #### E GFR ####[place] [id number] BUNon 08-13-2023 Urea nitrogen [Mass/Vol] 14 mg/dL Normal 06-13 [facility] Comment on above: Performed By: #### B UN ####[place] [address] Creatinineon 08-13-2023 Creatinine [Mass/Vol] 0.75 mg/dL Normal 0.61-1.24 [facility] Comment on above: Performed By: #### C CORNELIO ####[place] [address] Infectious Disease Office/Cl inic Noteon 08-13-2023 Infectious Disease Office/Clinic Note Normal [facility] Provider Letteron 08-13-2023 Provider Letter Normal [facility] Vanco Troughon 08-13-2023 Vanco Trough 18.50 mcg/mL High 10.00-15.00 [facility] Comment on above: Performed By: #### V ANCT ####[place] [address] .eGFRon 08-10-2023 GFR/1.73 sq M.predicted MDRD (S/P/Bld) [Vol rate/Area] mL/min/{1.73_m2} Normal >=60 [facility] Comment on above: Result Comment: [facility] [...] = years Performed By: #### E GFR ####[place] [id number] CBC w/ Diffon 08-10-2023 Erythrocyte distribution width (RBC) [Ratio] 14.4 % Normal 11.6-14.8 [facility] Comment on above: Performed By: #### C BC ####[place] [id number] Hematocrit (Bld) [Volume fraction] 38.0 % Low 41.0-53.0 [facility] Comment on above: Performed By: #### C BC ####[place] [address]22740 Hemoglobin (Bld) [Mass/Vol] 12.6 g/dL Low 13.5-17.5 [facility] Comment on above: Performed By: #### C BC ####[place] [address]22740 MCH (RBC) [Entitic mass] 30.1 pg Normal 27.0-35.0 [facility] Comment on above: Performed By: #### C BC ####[place] [address] MCHC 33.1 % Normal 31.0-37.0 [facility] Comment on above: Performed By: #### C BC ####[place] [address]22740 MCV (RBC) [Entitic vol] 90.9 fL Normal 80.0-100.0 [facility] Comment on above: Performed By: #### C BC ####[place] [id number] Platelet 256 x10*3/mcL Normal 150-450 [facility] Comment on above: Performed By: #### C BC ####[place] [id number] Platelet mean volume (Bld) [Entitic vol] 7.8 fL Normal 6.7-10.6 [facility] Comment on above: Performed By: #### C BC ####[address] [address] RBC 4.18 x10*6/mcL Low 4.30-5.80 [facility] Comment on above: Performed By: #### C BC ####[address] [address] WBC 7.0 x10*3/mcL Normal 4.5-11.0 [facility] Comment on above: Performed By: #### C BC ####[address] [address] CMPon 08-10-2023 Albumin [Mass/Vol] 3.8 g/dL Normal 3.2-4.9 [facility] Comment on above: Performed By: #### C OMP ####[address] [address] Albumin/Globulin [Mass ratio] 1.0 {ratio} Low 1.1-2.2 [facility] Comment on above: Performed By: #### C OMP ####[address] [address] Alk Phos 109 IU/L High 32-91 [facility] Comment on above: Performed By: #### C OMP ####[address] [address] ALT [Catalytic activity/Vol] 28 U/L Normal 17-63 [facility] Comment on above: Performed By: #### C OMP ####[address] [address] Anion gap [Moles/Vol] 13 mmol/L Normal 7-17 [facility] Comment on above: Performed By: #### C OMP ####[address] [address] AST [Catalytic activity/Vol] 26 U/L Normal 15-41 [facility] Comment on above: Performed By: #### C OMP ####[address] [address] Bili Total 0.6 mg/dL Normal 0.3-1.2 [facility] Comment on above: Performed By: #### C OMP ####[address] [address] Calcium [Mass/Vol] 9.3 mg/dL Normal 8.5-10.3 [facility] Comment on above: Performed By: #### C OMP ####[address] [address] Chloride [Moles/Vol] 101 mmol/L Normal 98-110 [facility] Comment on above: Performed By: #### C OMP ####[address] [address] CO2 [Moles/Vol] 26 mmol/L Normal 22-32 [facility] Comment on above: Performed By: #### C OMP ####[address] [address] Creatinine [Mass/Vol] 0.66 mg/dL Normal 0.61-1.24 [facility] Comment on above: Performed By: #### C OMP ####[address] [address] Glucose [Mass/Vol] 113 mg/dL High 70-99 [facility] Comment on above: Performed By: #### C OMP ####[address] [address] Potassium [Moles/Vol] 4.4 mmol/L Normal 3.4-4.8 [facility] Comment on above: Performed By: #### C OMP ####[address] [address] Protein [Mass/Vol] 7.7 g/dL Normal 6.5-8.1 [facility] Comment on above: Performed By: #### C OMP ####[address] [address] Sodium [Moles/Vol] 136 mmol/L Normal 133-142 [facility] Comment on above: Performed By: #### C OMP ####[address] [address] Urea nitrogen [Mass/Vol] 13 mg/dL Normal 8-26 [facility] Comment on above: Performed By: #### C OMP ####[address] [address] Urea nitrogen/Creatinine [Mass ratio] 19.7 mg/mg Normal 10.0-20.0 [facility] Comment on above: Performed By: #### C OMP ####[address] [address] CRPon 08-10-2023 CRP 1.34 mg/dL High 0.00-0.75 [facility] Comment on above: Result Comment: CRP measurement is useful for assessment of non-specificINFLAMMATORY RESPONSE to infection or injury AND is asensitive MARKER of ACUTE INFLAMMATION including CARDIACRISK ASSESSMENT.CARDIAC patients with elevated CRP are POTENTIALLY at aHIGHER RISK OF FUTURE CARDIAC EVENTS. Performed By: #### C RP ####[address] [address] Diff Autoon 08-10-2023 Baso Absolute 0.1 x10*3/mcL Normal 0.0-0.2 [facility] Comment on above: Performed By: #### . Automated Diff ####[address] [address] Basophils/100 WBC (Bld) 1.2 % Normal 0.0-1.2 [facility] Comment on above: Performed By: #### . Automated Diff ####[address] [address] Eos Absolute 0.6 x10*3/mcL High 0.0-0.4 [facility] Comment on above: Performed By: #### . Automated Diff ####[address] [address] Eosinophils/100 WBC (Bld) 8.1 % High 0.0-6.1 [facility] Comment on above: Performed By: #### . Automated Diff ####[address] [address] Lymph Absolute 1.8 x10*3/mcL Normal 1.0-4.8 [facility] Comment on above: Performed By: #### . Automated Diff ####[address] [address] Lymphocytes/100 WBC (Bld) 25.2 % Low 27.2-40.8 [facility] Comment on above: Performed By: #### . Automated Diff ####[address] [address] Dixie Absolute 0.6 x10*3/mcL Normal 0.3-1.1 [facility] Comment on above: Performed By: #### . Automated Diff ####[address] [address] Monocytes/100 WBC (Bld) 8.5 % Normal 4.7-13.9 [facility] Comment on above: Performed By: #### . Automated Diff ####[address] [address] Neutro Absolute 4.0 x10*3/mcL Normal 1.8-7.7 [facility] Comment on above: Performed By: #### . Automated Diff ####[address] [address] Neutro Auto 57.0 % Normal 47.2-70.8 [facility] Comment on above: Performed By: #### . Automated Diff ####[address] [address] ESRon 08-10-2023 Sed Rate 13 mm/hr Normal 0-23 [facility] Comment on above: Performed By: #### E SR ####[address] [address] Vanco Troughon 08-10-2023 Vanco Trough 18.30 mcg/mL High 10.00-15.00 [facility] Comment on above: Performed By: #### V ANCT ####[address] [address] C Sterile BSon 08-09-2023 C Sterile BS ------- Final No growth at 2 weeks. Normal [facility] Comment on above: Performed By: #### S BSC ####[place] [id number] .eGFRon 08-06-2023 GFR/1.73 sq M.predicted MDRD (S/P/Bld) [Vol rate/Area] mL/min/{1.73_m2} Normal >=60 [facility] Comment on above: Result Comment: [facility] [...] = years Performed By: #### E GFR ####[address] [address] BUNon 08-06-2023 Urea nitrogen [Mass/Vol] 13 mg/dL Normal 8-26 [facility] Comment on above: Performed By: #### B UN ####[address] [address] [place] Irizarry 08-06-2023 [place] TAYLOR ------- Final No anaerobic organisms isolated at 2 weeks Normal [facility] Comment on above: Performed By: #### A ALFONSO ####[address] [place] [address] C BRANDON ------- Final No anaerobic organisms isolated at 2 weeks Normal [facility] Comment on above: Performed By: #### A ALFONSO ###[address] [place] [address] [place] TAYLOR ------- Final No anaerobic organisms isolated at 2 weeks Normal [facility] Comment on above: Performed By: #### A ALFONSO ###[address] [place] [address] [place] TAYLOR ------- Final No anaerobic organisms isolated at 2 weeks Normal [facility] Comment on above: Performed By: #### A ALFONSO ###[address], [facility] [place] TAYLOR ------- Final No anaerobic organisms isolated at 2 weeks Normal [facility] Comment on above: Performed By: ###Jayla Vilchis NAC ####[address] [place] [address] C BRANDON ------- Final No anaerobic organisms isolated at 2 weeks Normal [facility] Comment on above: Performed By: #### Mame HAMILTON ####[address] [place] [address] C Sterile BS 08-06-2023 C Sterile BS ------- Final No growth at 2 weeks. [facility] Comment on above: Performed By: Mer CHAPMAN ####[address] [place] [address] C Sterile BS ------- Final No growth at 2 weeks. Normal [facility] Comment on above: Performed By: Mer Villasenor BSC ####[address] [place] [address] C Sterile BS ------- Final No growth at 2 weeks. Normal [facility] Comment on above: Performed By: #### S BSC ####[place] [id number] Creatinineon 08-06-2023 Creatinine [Mass/Vol] 0.72 mg/dL Normal 0.61-1.24 [facility] Comment on above: Performed By: #### C CORNELIO ####[address] [address] Vanco Troughon 08-06-2023 Vanco Trough 21.30 mcg/mL High 10.00-15.00 [facility] Comment on above: Performed By: #### V ANCT ####[place] [address] Send-out: Otheron 08-04-2023 Send-out Other See Report Normal [facility] Comment on above: Order Comment: TEST ID : [id number] Range Bacterial PCR and Sequencing, Varies - synovial fluid iin lab Result Comment: Miss ing Attachment Chartable Reference Lab Reports Can be viewed in source system Performed By: #### S OOTH ####[place] [id number] .eGFRon 08-03-2023 GFR/1.73 sq M.predicted MDRD (S/P/Bld) [Vol rate/Area] mL/min/{1.73_m2} Normal >=60 [facility] Comment on above: Result Comment: [facility] [...] = years Performed By: #### E GFR ####[place] [address] CBC w/ Diffon 08-03-2023 Erythrocyte distribution width (RBC) [Ratio] 14.6 % Normal 11.6-14.8 [facility] Comment on above: Performed By: #### C BC ####[place] [id number] Hematocrit (Bld) [Volume fraction] 36.0 % Low 41.0-53.0 [facility] Comment on above: Performed By: #### C BC ####[place] [address] Hemoglobin (Bld) [Mass/Vol] 11.9 g/dL Low 13.5-17.5 [facility] Comment on above: Performed By: #### C BC ####[address] [address] MCH (RBC) [Entitic mass] 30.9 pg Normal 27.0-35.0 [facility] Comment on above: Performed By: #### C BC ####[place] [address]22740 MCHC 33.1 % Normal 31.0-37.0 [facility] Comment on above: Performed By: #### C BC ####[place] [address] MCV (RBC) [Entitic vol] 93.3 fL Normal 80.0-100.0 [facility] Comment on above: Performed By: #### C BC ####[address] [address] Platelet 302 x10*3/mcL Normal 150-450 [facility] Comment on above: Performed By: #### C BC ####[address] [address] Platelet mean volume (Bld) [Entitic vol] 7.6 fL Normal 6.7-10.6 [facility] Comment on above: Performed By: #### C BC ####[address] [address] RBC 3.86 x10*6/mcL Low 4.30-5.80 [facility] Comment on above: Performed By: #### C BC ####[address] [address] WBC 12.2 x10*3/mcL High 4.5-11.0 [facility] Comment on above: Performed By: #### C BC ####[address] [address] CMPon 08-03-2023 Albumin [Mass/Vol] 3.3 g/dL Normal 3.2-4.9 [facility] Comment on above: Performed By: #### C OMP ####[address] [address] Albumin/Globulin [Mass ratio] 0.9 {ratio} Low 1.1-2.2 [facility] Comment on above: Performed By: #### C OMP ####[address] [address] Alk Phos 126 IU/L High 32-91 [facility] Comment on above: Performed By: #### C OMP ####[address] [address] ALT [Catalytic activity/Vol] 43 U/L Normal 17-63 [facility] Comment on above: Performed By: #### C OMP ####[address] [address] Anion gap [Moles/Vol] 13 mmol/L Normal 7-17 [facility] Comment on above: Performed By: #### C OMP ####[address] [address] AST [Catalytic activity/Vol] 31 U/L Normal 15-41 [facility] Comment on above: Performed By: #### C OMP ####[address] [place] [address] Bili Total 0.2 mg/dL Low 0.3-1.2 [facility] Comment on above: Performed By: #### C OMP ####[address] [address] Calcium [Mass/Vol] 9.0 mg/dL Normal 8.5-10.3 [facility] Comment on above: Performed By: #### C OMP ####[address] [address] Chloride [Moles/Vol] 101 mmol/L Normal 98-110 [facility] Comment on above: Performed By: #### C OMP ####[address] [place] [address] CO2 [Moles/Vol] 24 mmol/L Normal 22-32 [facility] Comment on above: Performed By: #### C OMP ####[address] [address] Creatinine [Mass/Vol] 0.73 mg/dL Normal 0.61-1.24 [facility] Comment on above: Performed By: #### C OMP ####[address] [place] [address] Glucose [Mass/Vol] 113 mg/dL High 70-99 [facility] Comment on above: Performed By: #### C OMP ####[address] [address] Potassium [Moles/Vol] 4.6 mmol/L Normal 3.4-4.8 [facility] Comment on above: Performed By: #### C OMP ####[address] [address] Protein [Mass/Vol] 6.9 g/dL Normal 6.5-8.1 [facility] Comment on above: Performed By: #### C OMP ####[place] [id number] Sodium [Moles/Vol] 133 mmol/L Normal 133-142 [facility] Comment on above: Performed By: #### C OMP ####[place] [id number] Urea nitrogen [Mass/Vol] 13 mg/dL Normal 8-26 [facility] Comment on above: Performed By: #### C OMP ####[place] [address]227[address] Urea nitrogen/Creatinine [Mass ratio] 17.8 mg/mg Normal 10.0-20.0 [facility] Comment on above: Performed By: #### C OMP ####[place] [id number] CRPon 08-03-2023 CRP 2.36 mg/dL High 0.00-0.75 [facility] Comment on above: Result Comment: CRP measurement is useful for assessment of non-specificINFLAMMATORY RESPONSE to infection or injury AND is asensitive MARKER of ACUTE INFLAMMATION including CARDIACRISK ASSESSMENT.CARDIAC patients with elevated CRP are POTENTIALLY at aHIGHER RISK OF FUTURE CARDIAC EVENTS. Performed By: #### C RP ####[place] [id number] Diff Autoon 08-03-2023 Baso Absolute 0.1 x10*3/mcL Normal 0.0-0.2 [facility] Comment on above: Performed By: #### . Automated Diff ####[place] [address]22740 Basophils/100 WBC (Bld) 0.7 % Normal 0.0-1.2 [facility] Comment on above: Performed By: #### . Automated Diff ####[place] [id number] Eos Absolute 0.6 x10*3/mcL High 0.0-0.4 [facility] Comment on above: Performed By: #### . Automated Diff ####[address] [address] Eosinophils/100 WBC (Bld) 4.6 % Normal 0.0-6.1 [facility] Comment on above: Performed By: #### . Automated Diff ####[address] [address] Lymph Absolute 1.8 x10*3/mcL Normal 1.0-4.8 [facility] Comment on above: Performed By: #### . Automated Diff ####[address] [address] Lymphocytes/100 WBC (Bld) 15.1 % Low 27.2-40.8 [facility] Comment on above: Performed By: #### . Automated Diff ####[address] [address] Dixie Absolute 0.7 x10*3/mcL Normal 0.3-1.1 [facility] Comment on above: Performed By: #### . Automated Diff ####[address] [address] Monocytes/100 WBC (Bld) 6.0 % Normal 4.7-13.9 [facility] Comment on above: Performed By: #### . Automated Diff ####[address] [address] Neutro Absolute 8.9 x10*3/mcL High 1.8-7.7 [facility] Comment on above: Performed By: #### . Automated Diff ####[address] [address] Neutro Auto 73.6 % High 47.2-70.8 [facility] Comment on above: Performed By: #### . Automated Diff ####[address] [address] Diff Latia 08-03-2023 Band form neutrophils/100 WBC (Bld) 1 % Normal 0-5 [facility] Comment on above: Performed By: #### . Manual Diff ####[address] [address] Basophils/100 WBC (Bld) 0 % Normal 0-3 [facility] Comment on above: Performed By: #### . Manual Diff ####[address] [address] Eosinophils/100 WBC (Bld) 4 % Normal 0-7 [facility] Comment on above: Performed By: #### . Manual Diff ####[address] [address] Lymphocytes/100 WBC (Bld) 16 % Normal 14-42 [facility] Comment on above: Performed By: #### . Manual Diff ####[address] [address] Monocytes/100 WBC (Bld) 3 % Normal 1-11 [facility] Comment on above: Performed By: #### . Manual Diff ####[address] [address] Platelet estimate Adequate Normal [facility] Comment on above: Performed By: #### . Manual Diff ####[address] [address] RBC morphology finding Nom (Bld) Normal Normal [facility] Comment on above: Performed By: #### . Manual Diff ####[address] [address] Segs Man 76 % Normal 49-79 [facility] Comment on above: Performed By: #### . Manual Diff ####[address] [address] ESRon 08-03-2023 Sed Rate 31 mm/hr High 0-23 [facility] Comment on above: Performed By: #### E SR ####[address] [address] Vanco Troughon 08-03-2023 Vanco Trough 21.00 mcg/mL High 10.00-15.00 [facility] Comment on above: Performed By: #### V ANCT ####[place] [address] Long-term Care Office/Clinic Noteon 07-31-2023 Long-term Care Office/Clinic Note Normal [facility] .eGFRon 07-30-2023 GFR/1.73 sq M.predicted MDRD (S/P/Bld) [Vol rate/Area] mL/min/{1.73_m2} Normal >=60 [facility] Comment on above: Result Comment: [facility] [...] = years Performed By: #### E GFR ####[place] [address] Basic Metabolic Profileon Anion gap [Moles/Vol] 10 mmol/L Normal 7-17 [facility] Comment on above: Performed By: #### C [id number] ####[place] [address] Calcium [Mass/Vol] 8.8 mg/dL Normal 8.5-10.3 [facility] Comment on above: Performed By: #### C D:[id number] ####[place] [address] Chloride [Moles/Vol] 103 mmol/L Normal 98-110 [facility] Comment on above: Performed By: #### C D:[id number] ####[address] [address] CO2 [Moles/Vol] 28 mmol/L Normal 22-32 [facility] Comment on above: Performed By: #### C D:[id number] ####[address] [address] Creatinine [Mass/Vol] 0.81 mg/dL Normal 0.61-1.24 [facility] Comment on above: Performed By: #### C D:[id number] ####[address] [address] Glucose [Mass/Vol] 171 mg/dL High 70-99 [facility] Comment on above: Performed By: #### C D:[id number] ####[address] [address] Potassium [Moles/Vol] 4.3 mmol/L Normal 3.4-4.8 [facility] Comment on above: Performed By: #### C D:[id number] ####[address] [address] Sodium [Moles/Vol] 137 mmol/L Normal 133-142 [facility] Comment on above: Performed By: #### C D:[id number] ####[address] [address] Urea nitrogen [Mass/Vol] 17 mg/dL Normal 8-26 [facility] Comment on above: Performed By: #### C D:[id number] ####[address] [address] Urea nitrogen/Creatinine [Mass ratio] 21.0 mg/mg High 10.0-20.0 [facility] Comment on above: Performed By: #### C D:[id number] ####[address] [place] [address] CBCon 07-30-2023 Erythrocyte distribution width (RBC) [Ratio] 14.6 % Normal 11.6-14.8 [facility] Comment on above: Performed By: #### C BCI ####[place] [address] Hematocrit (Bld) [Volume fraction] 30.2 % Low 41.0-53.0 [facility] Comment on above: Performed By: #### C BCI ####[place] [address] Hemoglobin (Bld) [Mass/Vol] 10.2 g/dL Low 13.5-17.5 [facility] Comment on above: Performed By: #### C BCI ####[place] [address] MCH (RBC) [Entitic mass] 30.9 pg Normal 27.0-35.0 [facility] Comment on above: Performed By: #### C BCI ####[place] [address] MCHC 33.7 % Normal 31.0-37.0 [facility] Comment on above: Performed By: #### C BCI ####[place] [address] MCV (RBC) [Entitic vol] 91.6 fL Normal 80.0-100.0 [facility] Comment on above: Performed By: #### C BCI ####[place] [address] Platelet 238 x10*3/mcL Normal 150-450 [facility] Comment on above: Performed By: #### C BCI ####[place] [address] Platelet mean volume (Bld) [Entitic vol] 6.7 fL Normal 6.7-10.6 [facility] Comment on above: Performed By: #### C BCI ####[place] [address] RBC 3.30 x10*6/mcL Low 4.30-5.80 [facility] Comment on above: Performed By: #### C BCI ####[address] [address] WBC 8.2 x10*3/mcL Normal 4.5-11.0 [facility] Comment on above: Performed By: #### C BCI ####[address] [address] COV19 Rapidon 07-30-2023 LAB ONLY Result Called? No Normal [facility] Comment on above: Performed By: #### C D:[id number] ####[address] [address] Reason for Rapid Test Dischrg to LTC Normal [facility] Comment on above: Performed By: #### C D:[id number] ####[place] [address] SARS-CoV-2 (COVID-19) RNA RUTH+probe Ql (Unsp spec) Negative Normal Negative [facility] Comment on above: Result Comment: The [...] using the ID NOW COVID-19 test by [employer], which has received Emergency Use Authorization (EUA) [...] the following links:Fact Sheet for HealthCare Providers: https://www.fda.gov/media/954305/downloadFact Sheet for Patients: https://www.fda.gov/media/280567/download Performed By: #### C D:[id number] ####[place] [address] Inpatient Clinical Summaryon 07-30-2023 Inpatient Clinical Summary Normal [facility] Magnesiumon 07-30-2023 Magnesium [Mass/Vol] 1.8 mg/dL Normal 1.7-2.4 [facility] Comment on above: Performed By: #### M G ####[place] [address] Orthopedic Progress Noteon 1 Orthopedic Progress Note Normal [facility] POC Glucose Randomon 023 Glucose [Mass/Vol] 233 mg/dL High 70-99 [facility] Comment on above: Performed By: #### C D:[id number] ####[place] [address] .eGFRon 07-29-2023 GFR/1.73 sq M.predicted MDRD (S/P/Bld) [Vol rate/Area] mL/min/{1.73_m2} Normal >=60 [facility] Comment on above: Result Comment: [facility] [...] = years Performed By: #### E GFR ####[address] [address] Basic Metabolic Profileon Anion gap [Moles/Vol] 11 mmol/L Normal 7-17 [facility] Comment on above: Performed By: #### C D:[id number] ####[address] [address] Calcium [Mass/Vol] 8.7 mg/dL Normal 8.5-10.3 [facility] Comment on above: Performed By: #### C D:[id number] ####[address] [address] Chloride [Moles/Vol] 103 mmol/L Normal 98-110 [facility] Comment on above: Performed By: #### C D:[id number] ####[address] [address] CO2 [Moles/Vol] 25 mmol/L Normal 22-32 [facility] Comment on above: Performed By: #### C D:[id number] ####[address] [address] Creatinine [Mass/Vol] 0.67 mg/dL Normal 0.61-1.24 [facility] Comment on above: Performed By: #### C D:[id number] ####[address] [address] Glucose [Mass/Vol] 140 mg/dL High 70-99 [facility] Comment on above: Performed By: #### C D:[id number] ####[address] [address] Potassium [Moles/Vol] 4.4 mmol/L Normal 3.4-4.8 [facility] Comment on above: Performed By: #### C D:[id number] ####[address] [address] Sodium [Moles/Vol] 135 mmol/L Normal 133-142 [facility] Comment on above: Performed By: #### C D:[id number] ####[address] [address] Urea nitrogen [Mass/Vol] 17 mg/dL Normal 8-26 [facility] Comment on above: Performed By: #### C D:[id number] ####[address] [address] Urea nitrogen/Creatinine [Mass ratio] 25.4 mg/mg High 10.0-20.0 [facility] Comment on above: Performed By: #### C D:[id number] ####[address] [address] CBC w/ Diffon 07-29-2023 Erythrocyte distribution width (RBC) [Ratio] 14.7 % Normal 11.6-14.8 [facility] Comment on above: Performed By: #### C BC ####[address] [address] Hematocrit (Bld) [Volume fraction] 30.7 % Low 41.0-53.0 [facility] Comment on above: Performed By: #### C BC ####[address] [address] Hemoglobin (Bld) [Mass/Vol] 10.4 g/dL Low 13.5-17.5 [facility] Comment on above: Performed By: #### C BC ####[address] [address] MCH (RBC) [Entitic mass] 30.9 pg Normal 27.0-35.0 [facility] Comment on above: Performed By: #### C BC ####[address] [address] MCHC 33.8 % Normal 31.0-37.0 [facility] Comment on above: Performed By: #### C BC ####[address] [address] MCV (RBC) [Entitic vol] 91.5 fL Normal 80.0-100.0 [facility] Comment on above: Performed By: #### C BC ####[address] [address] Platelet 245 x10*3/mcL Normal 150-450 [facility] Comment on above: Performed By: #### C BC ####[address] [address] Platelet mean volume (Bld) [Entitic vol] 6.4 fL Low 6.7-10.6 [facility] Comment on above: Performed By: #### C BC ####[address] [address] RBC 3.35 x10*6/mcL Low 4.30-5.80 [facility] Comment on above: Performed By: #### C BC ####[address] [address] WBC 9.9 x10*3/mcL Normal 4.5-11.0 [facility] Comment on above: Performed By: #### C BC ####[address] [address] Diff Autoon 07-29-2023 Baso Absolute 0.1 x10*3/mcL Normal 0.0-0.2 [facility] Comment on above: Performed By: #### . Automated Diff ####[address] [address] Basophils/100 WBC (Bld) 0.6 % Normal 0.0-1.2 [facility] Comment on above: Performed By: #### . Automated Diff ####[address] [address] Eos Absolute 0.8 x10*3/mcL High 0.0-0.4 [facility] Comment on above: Performed By: #### . Automated Diff ####[address] [address] Eosinophils/100 WBC (Bld) 7.6 % High 0.0-6.1 [facility] Comment on above: Performed By: #### . Automated Diff ####[address] [address] Lymph Absolute 1.4 x10*3/mcL Normal 1.0-4.8 [facility] Comment on above: Performed By: #### . Automated Diff ####[address] [address] Lymphocytes/100 WBC (Bld) 14.5 % Low 27.2-40.8 [facility] Comment on above: Performed By: #### . Automated Diff ####[address] [address] Dixie Absolute 0.8 x10*3/mcL Normal 0.3-1.1 [facility] Comment on above: Performed By: #### . Automated Diff ####[address] [address] Monocytes/100 WBC (Bld) 8.1 % Normal 4.7-13.9 [facility] Comment on above: Performed By: #### . Automated Diff ####[address] [address] Neutro Absolute 6.9 x10*3/mcL Normal 1.8-7.7 [facility] Comment on above: Performed By: #### . Automated Diff ####[address] [address] Neutro Auto 69.2 % Normal 47.2-70.8 [facility] Comment on above: Performed By: #### . Automated Diff ####[address] [address] Orthopedic Progress Noteon 1 Orthopedic Progress Note Normal [facility] POC Glucose Randomon 023 Glucose [Mass/Vol] 168 mg/dL High 70-99 [facility] Comment on above: Performed By: #### C D:[id number] ####[facility] [place] [address] Glucose [Mass/Vol] 212 mg/dL High 70-99 [facility] Comment on above: Performed By: #### C D:[id number] ####[facility] [place] [address] Glucose [Mass/Vol] 189 mg/dL High 70-99 [facility] Comment on above: Performed By: #### C D:[id number] ####[place] [address] [place] [address] .eGFRon 07-28-2023 GFR/1.73 sq M.predicted MDRD (S/P/Bld) [Vol rate/Area] mL/min/{1.73_m2} Normal >=60 [facility] Comment on above: Result Comment: [facility] [...] = years Performed By: #### E GFR ####[address] [address] GFR/1.73 sq M.predicted MDRD (S/P/Bld) [Vol rate/Area] mL/min/{1.73_m2} Normal >=60 [facility] Comment on above: Result Comment: [facility] [...] = years Performed By: #### E GFR ####[address] [address] Basic Metabolic Profileon Anion gap [Moles/Vol] 10 mmol/L Normal 7-17 [facility] Comment on above: Performed By: #### C D:[id number] ####[place] [address] [place] [address] Calcium [Mass/Vol] 8.5 mg/dL Normal 8.5-10.3 [facility] Comment on above: Performed By: #### C D:[id number] ####[address] [address] Chloride [Moles/Vol] 100 mmol/L Normal 98-110 [facility] Comment on above: Performed By: #### C D:[id number] ####[place] [address] [place] [address] CO2 [Moles/Vol] 26 mmol/L Normal 22-32 [facility] Comment on above: Performed By: #### C D:[id number] ####[address] [address] Creatinine [Mass/Vol] 0.86 mg/dL Normal 0.61-1.24 [facility] Comment on above: Performed By: #### C D:[id number] ####[address] [address] Glucose [Mass/Vol] 290 mg/dL High 70-99 [facility] Comment on above: Performed By: #### C D:[id number] ####[address] [address] Potassium [Moles/Vol] 4.4 mmol/L Normal 3.4-4.8 [facility] Comment on above: Performed By: #### C D:[id number] ####[address] [address] Sodium [Moles/Vol] 132 mmol/L Low 133-142 [facility] Comment on above: Performed By: #### C D:[id number] ####[address] [address] Urea nitrogen [Mass/Vol] 18 mg/dL Normal 8-26 [facility] Comment on above: Performed By: #### C D:[id number] ####[address] [address] Urea nitrogen/Creatinine [Mass ratio] 20.9 mg/mg High 10.0-20.0 [facility] Comment on above: Performed By: #### C D:[id number] ####[address] [address] Anion gap [Moles/Vol] 12 mmol/L Normal 7-17 [facility] Comment on above: Performed By: #### C D:[id number] ####[address] [address] Calcium [Mass/Vol] 8.9 mg/dL Normal 8.5-10.3 [facility] Comment on above: Performed By: #### C D:[id number] ####[address] [address] Chloride [Moles/Vol] 104 mmol/L Normal 98-110 [facility] Comment on above: Performed By: #### C D:[id number] ####[address] [address] CO2 [Moles/Vol] 27 mmol/L Normal 22-32 [facility] Comment on above: Performed By: #### C D:[id number] ####[address] [address] Creatinine [Mass/Vol] 0.78 mg/dL Normal 0.61-1.24 [facility] Comment on above: Performed By: #### C D:[id number] ####[address] [address] Glucose [Mass/Vol] 134 mg/dL High 70-99 [facility] Comment on above: Performed By: #### C D:[id number] ####[address] [address] Potassium [Moles/Vol] 4.4 mmol/L Normal 3.4-4.8 [facility] Comment on above: Performed By: #### C D:[id number] ####[address] [address] Sodium [Moles/Vol] 139 mmol/L Normal 133-142 [facility] Comment on above: Performed By: #### C D:[id number] ####[address] [address] Urea nitrogen [Mass/Vol] 16 mg/dL Normal 8-26 [facility] Comment on above: Performed By: #### C D:[id number] ####[address] [address] Urea nitrogen/Creatinine [Mass ratio] 20.5 mg/mg High 10.0-20.0 [facility] Comment on above: Performed By: #### C D:[id number] ####[place] [address] CBCon 07-28-2023 Erythrocyte distribution width (RBC) [Ratio] 15.2 % High 11.6-14.8 [facility] Comment on above: Performed By: #### C BCI ####[place] [address] Hematocrit (Bld) [Volume fraction] 31.2 % Low 41.0-53.0 [facility] Comment on above: Performed By: #### C BCI ####[place] [address] Hemoglobin (Bld) [Mass/Vol] 10.4 g/dL Low 13.5-17.5 [facility] Comment on above: Performed By: #### C BCI ####[place] [address] MCH (RBC) [Entitic mass] 30.8 pg Normal 27.0-35.0 [facility] Comment on above: Performed By: #### C BCI ####[place] [address] MCHC 33.5 % Normal 31.0-37.0 [facility] Comment on above: Performed By: #### C BCI ####[place] [address] MCV (RBC) [Entitic vol] 91.9 fL Normal 80.0-100.0 [facility] Comment on above: Performed By: #### C BCI ####[place] [address] Platelet 252 x10*3/mcL Normal 150-450 [facility] Comment on above: Performed By: #### C BCI ####[place] [address] Platelet mean volume (Bld) [Entitic vol] 7.0 fL Normal 6.7-10.6 [facility] Comment on above: Performed By: #### C BCI ####[place] [address] RBC 3.39 x10*6/mcL Low 4.30-5.80 [facility] Comment on above: Performed By: #### C BCI ####[address] [address] WBC 11.0 x10*3/mcL Normal 4.5-11.0 [facility] Comment on above: Performed By: #### C BCI ####[place] [address] Erythrocyte distribution width (RBC) [Ratio] 15.0 % High 11.6-14.8 [facility] Comment on above: Performed By: #### C BCI ####[place] [address] Hematocrit (Bld) [Volume fraction] 31.6 % Low 41.0-53.0 [facility] Comment on above: Performed By: #### C BCI ####[place] [address] Hemoglobin (Bld) [Mass/Vol] 10.6 g/dL Low 13.5-17.5 [facility] Comment on above: Performed By: #### C BCI ####[place] [address] MCH (RBC) [Entitic mass] 30.9 pg Normal 27.0-35.0 [facility] Comment on above: Performed By: #### C BCI ####[place] [address] MCHC 33.4 % Normal 31.0-37.0 [facility] Comment on above: Performed By: #### C BCI ####[place] [address] MCV (RBC) [Entitic vol] 92.3 fL Normal 80.0-100.0 [facility] Comment on above: Performed By: #### C BCI ####[place] [address] Platelet 256 x10*3/mcL Normal 150-450 [facility] Comment on above: Performed By: #### C BCI ####[place] [address] Platelet mean volume (Bld) [Entitic vol] 6.6 fL Low 6.7-10.6 [facility] Comment on above: Performed By: #### C BCI ####[place] [address] RBC 3.42 x10*6/mcL Low 4.30-5.80 [facility] Comment on above: Performed By: #### C BCI ####[place] [address] WBC 11.4 x10*3/mcL High 4.5-11.0 [facility] Comment on above: Performed By: #### C BCI ####[place] [address] CRPon 07-28-2023 CRP 5.77 mg/dL High 0.00-0.75 [facility] Comment on above: Result Comment: CRP measurement is useful for assessment of non-specificINFLAMMATORY RESPONSE to infection or injury AND is asensitive MARKER of ACUTE INFLAMMATION including CARDIACRISK ASSESSMENT.CARDIAC patients with elevated CRP are POTENTIALLY at aHIGHER RISK OF FUTURE CARDIAC EVENTS. Performed By: #### C RP ####[place] [address] ESRon 07-28-2023 Sed Rate 52 mm/hr High 0-23 [facility] Comment on above: Performed By: #### E SR ####[place] [address] Infectious Disease Progress Noteon 07-28-2023 Infectious Disease Progress Note Normal [facility] Magnesiumon 07-28-2023 Magnesium [Mass/Vol] 1.8 mg/dL Normal 1.7-2.4 [facility] Comment on above: Performed By: #### M G ####[address] [address] Magnesium [Mass/Vol] 1.9 mg/dL Normal 1.7-2.4 [facility] Comment on above: Performed By: #### M G ####[address] [address] Orthopedic Progress Noteon 1 Orthopedic Progress Note Normal [facility] POC Glucose Randomon 023 Glucose [Mass/Vol] 281 mg/dL High 70-99 [facility] Comment on above: Performed By: #### C D:[id number] ####[address] [address] Glucose [Mass/Vol] 196 mg/dL High 70-99 [facility] Comment on above: Performed By: #### C D:[id number] ####[address] [address] Glucose [Mass/Vol] 151 mg/dL High 70-99 [facility] Comment on above: Performed By: #### C D:[id number] ####[address] [address] Vanco Troughon 07-28-2023 Vanco Trough 14.60 mcg/mL Normal 10.00-15.00 [facility] Comment on above: Performed By: #### V ANCT ####[address] [address] .eGFRon 07-27-2023 GFR/1.73 sq M.predicted MDRD (S/P/Bld) [Vol rate/Area] mL/min/{1.73_m2} Normal >=60 [facility] Comment on above: Result Comment: [facility] [...] = years Performed By: #### E GFR ####[address] [address] Basic Metabolic Profileon Anion gap [Moles/Vol] 10 mmol/L Normal 7-17 [facility] Comment on above: Performed By: #### C D:[id number] ####[address] [address] Calcium [Mass/Vol] 8.7 mg/dL Normal 8.5-10.3 [facility] Comment on above: Performed By: #### C D:[id number] ####[address] [address] Chloride [Moles/Vol] 101 mmol/L Normal 98-110 [facility] Comment on above: Performed By: #### C D:[id number] ####[address] [address] CO2 [Moles/Vol] 28 mmol/L Normal 22-32 [facility] Comment on above: Performed By: #### C D:[id number] ####[address] [address] Creatinine [Mass/Vol] 0.81 mg/dL Normal 0.61-1.24 [facility] Comment on above: Performed By: #### C D:[id number] ####[address] [address] Glucose [Mass/Vol] 131 mg/dL High 70-99 [facility] Comment on above: Performed By: #### C D:[id number] ####[address] [address] Potassium [Moles/Vol] 4.4 mmol/L Normal 3.4-4.8 [facility] Comment on above: Performed By: #### C D:[id number] ####[address] [address] Sodium [Moles/Vol] 135 mmol/L Normal 133-142 [facility] Comment on above: Performed By: #### C D:[id number] ####[address] [address] Urea nitrogen [Mass/Vol] 14 mg/dL Normal 8-26 [facility] Comment on above: Performed By: #### C D:[id number] ####[address] [address] Urea nitrogen/Creatinine [Mass ratio] 17.3 mg/mg Normal 10.0-20.0 [facility] Comment on above: Performed By: #### C D:[id number] ####[address] [address] CBCon 07-27-2023 Erythrocyte distribution width (RBC) [Ratio] 14.9 % High 11.6-14.8 [facility] Comment on above: Performed By: #### C BCI ####[address] [address] Hematocrit (Bld) [Volume fraction] 31.0 % Low 41.0-53.0 [facility] Comment on above: Performed By: #### C BCI ####[address] [address] Hemoglobin (Bld) [Mass/Vol] 10.3 g/dL Low 13.5-17.5 [facility] Comment on above: Performed By: #### C BCI ####[address] [address] MCH (RBC) [Entitic mass] 30.6 pg Normal 27.0-35.0 [facility] Comment on above: Performed By: #### C BCI ####[place] [address] MCHC 33.4 % Normal 31.0-37.0 [facility] Comment on above: Performed By: #### C BCI ####[place] [address] MCV (RBC) [Entitic vol] 91.6 fL Normal 80.0-100.0 [facility] Comment on above: Performed By: #### C BCI ####[place] [address] Platelet 208 x10*3/mcL Normal 150-450 [facility] Comment on above: Performed By: #### C BCI ####[place] [address] Platelet mean volume (Bld) [Entitic vol] 6.6 fL Low 6.7-10.6 [facility] Comment on above: Performed By: #### C BCI ####[place] [address] RBC 3.38 x10*6/mcL Low 4.30-5.80 [facility] Comment on above: Performed By: #### C BCI ####[place] [address] WBC 8.3 x10*3/mcL Normal 4.5-11.0 [facility] Comment on above: Performed By: #### C BCI ####[place] [address] Dietary Consultationon 07-27 Dietary Consultation Normal [facility] Infectious Disease Progress Noteon 07-27-2023 Infectious Disease Progress Note Normal [facility] Magnesiumon 07-27-2023 Magnesium [Mass/Vol] 1.9 mg/dL Normal 1.7-2.4 [facility] Comment on above: Performed By: #### M G ####[address] [place] [address] Orthopedic Progress Noteon 1 Orthopedic Progress Note Normal [facility] POC Glucose Randomon 023 Glucose [Mass/Vol] 268 mg/dL High 70-99 [facility] Comment on above: Performed By: #### C D:[id number] ####[facility] [place] [address] Glucose [Mass/Vol] 163 mg/dL High 70-99 [facility] Comment on above: Performed By: #### C D:[id number] ####[address] [address] Glucose [Mass/Vol] 185 mg/dL High 70-99 [facility] Comment on above: Performed By: #### C D:[id number] ####[address] [address] Glucose [Mass/Vol] 106 mg/dL High 70-99 [facility] Comment on above: Performed By: #### C D:[id number] ####[address] [address] Progress Note-Nurseon 2022 Progress Note-Nurse Normal [facility] VL Extremity Venous Duplex L ower Righton 07-27-2023 VL Extremity Venous Duplex Lower Right [facility] .eGFRon 07-26-2023 GFR/1.73 sq M.predicted MDRD (S/P/Bld) [Vol rate/Area] mL/min/{1.73_m2} Normal >=60 [facility] Comment on above: Result Comment: [facility] [...] = years Performed By: #### E GFR ####[address] [address] Basic Metabolic Profileon Anion gap [Moles/Vol] 12 mmol/L Normal 7-17 [facility] Comment on above: Performed By: #### C D:[id number] ####[address] [address] Calcium [Mass/Vol] 8.6 mg/dL Normal 8.5-10.3 [facility] Comment on above: Performed By: #### C D:[id number] ####[address] [address] Chloride [Moles/Vol] 102 mmol/L Normal 98-110 [facility] Comment on above: Performed By: #### C D:[id number] ####[address] [address] CO2 [Moles/Vol] 27 mmol/L Normal 22-32 [facility] Comment on above: Performed By: #### C D:[id number] ####[address] [address] Creatinine [Mass/Vol] 0.72 mg/dL Normal 0.61-1.24 [facility] Comment on above: Performed By: #### C D:[id number] ####[address] [address] Glucose [Mass/Vol] 127 mg/dL High 70-99 [facility] Comment on above: Performed By: #### C D:[id number] ####[address] [address] Potassium [Moles/Vol] 4.5 mmol/L Normal 3.4-4.8 [facility] Comment on above: Performed By: #### C D:[id number] ####[address] [address] Sodium [Moles/Vol] 136 mmol/L Normal 133-142 [facility] Comment on above: Performed By: #### C D:[id number] ####[address] [address] Urea nitrogen [Mass/Vol] 12 mg/dL Normal 8-26 [facility] Comment on above: Performed By: #### C D:[id number] ####[address] [address] Urea nitrogen/Creatinine [Mass ratio] 16.7 mg/mg Normal 10.0-20.0 [facility] Comment on above: Performed By: #### C [id number] ####[address] [address] CBCon 07-26-2023 Erythrocyte distribution width (RBC) [Ratio] 14.7 % Normal 11.6-14.8 [facility] Comment on above: Performed By: #### C BCI ####[address] [address] Hematocrit (Bld) [Volume fraction] 30.2 % Low 41.0-53.0 [facility] Comment on above: Performed By: #### C BCI ####[address] [address] Hemoglobin (Bld) [Mass/Vol] 10.3 g/dL Low 13.5-17.5 [facility] Comment on above: Performed By: #### C BCI ####[address] [address] MCH (RBC) [Entitic mass] 31.1 pg Normal 27.0-35.0 [facility] Comment on above: Performed By: #### C BCI ####[address] [address] MCHC 34.1 % Normal 31.0-37.0 [facility] Comment on above: Performed By: #### C BCI ####[address] [address] MCV (RBC) [Entitic vol] 91.3 fL Normal 80.0-100.0 [facility] Comment on above: Performed By: #### C BCI ####[address] [address] Platelet 178 x10*3/mcL Normal 150-450 [facility] Comment on above: Performed By: #### C BCI ####[address] [address] Platelet mean volume (Bld) [Entitic vol] 6.7 fL Normal 6.7-10.6 [facility] Comment on above: Performed By: #### C BCI ####[address] [address] RBC 3.31 x10*6/mcL Low 4.30-5.80 [facility] Comment on above: Performed By: #### C BCI ####[address] [address] WBC 6.8 x10*3/mcL Normal 4.5-11.0 [facility] Comment on above: Performed By: #### C BCI ####[address] [address] Magnesiumon 07-26-2023 Magnesium [Mass/Vol] 1.6 mg/dL Low 1.7-2.4 [facility] Comment on above: Performed By: #### M G ####[address] [address] Orthopedic Progress Noteon 1 Orthopedic Progress Note Normal [facility] POC Glucose Randomon 023 Glucose [Mass/Vol] 224 mg/dL High 70-99 [facility] Comment on above: Performed By: #### C [id number] ####[address] [address] Glucose [Mass/Vol] 201 mg/dL High 70-99 [facility] Comment on above: Performed By: #### C D:[id number] ####[address] [address] Glucose [Mass/Vol] 208 mg/dL High 70-99 [facility] Comment on above: Performed By: #### C D:[id number] ####[address] [address] Glucose [Mass/Vol] 126 mg/dL High 70-99 [facility] Comment on above: Performed By: #### C D:[id number] ####[address] [address] Vanco Troughon 07-26-2023 Vanco Trough 19.30 mcg/mL High 10.00-15.00 [facility] Comment on above: Order Comment: Add 0 800 Vanco to morning labs that were drawn per Jolanta Mcfadden RN. 07/26/2023 05:52 ALS Performed By: #### V ANCT ####[address] [address] .eGFRon 07-25-2023 GFR/1.73 sq M.predicted MDRD (S/P/Bld) [Vol rate/Area] mL/min/{1.73_m2} Normal >=60 [facility] Comment on above: Result Comment: [facility] [...] = years Performed By: #### E GFR ####[address] [address] Basic Metabolic Profileon Anion gap [Moles/Vol] 10 mmol/L Normal 7-17 [facility] Comment on above: Performed By: #### C D:[id number] ####[address] [address] Calcium [Mass/Vol] 8.0 mg/dL Low 8.5-10.3 [facility] Comment on above: Performed By: #### C D:[id number] ####[address] [address] Chloride [Moles/Vol] 102 mmol/L Normal 98-110 [facility] Comment on above: Performed By: #### C D:[id number] ####[address] [address] CO2 [Moles/Vol] 25 mmol/L Normal 22-32 [facility] Comment on above: Performed By: #### C D:[id number] ####[address] [address] Creatinine [Mass/Vol] 0.65 mg/dL Normal 0.61-1.24 [facility] Comment on above: Performed By: #### C D:[id number] ####[address] [address] Glucose [Mass/Vol] 280 mg/dL High 70-99 [facility] Comment on above: Performed By: #### C D:[id number] ####[address] [address] Potassium [Moles/Vol] 4.5 mmol/L Normal 3.4-4.8 [facility] Comment on above: Performed By: #### C D:[id number] ####[address] [address] Sodium [Moles/Vol] 133 mmol/L Normal 133-142 [facility] Comment on above: Performed By: #### C D:[id number] ####[address] [address] Urea nitrogen [Mass/Vol] 13 mg/dL Normal 8-26 [facility] Comment on above: Performed By: #### C D:[id number] ####[address] [address] Urea nitrogen/Creatinine [Mass ratio] 20.0 mg/mg Normal 10.0-20.0 [facility] Comment on above: Performed By: #### C D:[id number] ####[address] [address] CBCon 07-25-2023 Erythrocyte distribution width (RBC) [Ratio] 14.7 % Normal 11.6-14.8 [facility] Comment on above: Performed By: #### C BCI ####[address] [address] Hematocrit (Bld) [Volume fraction] 29.0 % Low 41.0-53.0 [facility] Comment on above: Performed By: #### C BCI ####[address] [address] Hemoglobin (Bld) [Mass/Vol] 9.9 g/dL Low 13.5-17.5 [facility] Comment on above: Performed By: #### C BCI ####[address] [address] MCH (RBC) [Entitic mass] 31.5 pg Normal 27.0-35.0 [facility] Comment on above: Performed By: #### C BCI ####[address] [address] MCHC 34.0 % Normal 31.0-37.0 [facility] Comment on above: Performed By: #### C BCI ####[address] [address] MCV (RBC) [Entitic vol] 92.6 fL Normal 80.0-100.0 [facility] Comment on above: Performed By: #### C BCI ####[address] [address] Platelet 153 x10*3/mcL Normal 150-450 [facility] Comment on above: Performed By: #### C BCI ####[address] [address] Platelet mean volume (Bld) [Entitic vol] 6.7 fL Normal 6.7-10.6 [facility] Comment on above: Performed By: #### C BCI ####[address] [address] RBC 3.13 x10*6/mcL Low 4.30-5.80 [facility] Comment on above: Performed By: #### C BCI ####[address] [address] WBC 5.8 x10*3/mcL Normal 4.5-11.0 [facility] Comment on above: Performed By: #### C BCI ####[address] [address] Magnesiumon 07-25-2023 Magnesium [Mass/Vol] 1.5 mg/dL Low 1.7-2.4 [facility] Comment on above: Performed By: #### M G ####[address] [address] Orthopedic Progress Noteon 1 Orthopedic Progress Note Normal [facility] POC Glucose Randomon 023 Glucose [Mass/Vol] 234 mg/dL High 70-99 [facility] Comment on above: Performed By: #### C D:[id number] ####[address] [address] Glucose [Mass/Vol] 201 mg/dL High 70-99 [facility] Comment on above: Performed By: #### C D:[id number] ####[address] [address] Glucose [Mass/Vol] 245 mg/dL High 70-99 [facility] Comment on above: Performed By: #### C D:[id number] ####[address] [address] Glucose [Mass/Vol] 138 mg/dL High 70-99 [facility] Comment on above: Performed By: #### C D:[id number] ####[address] [address] Vanco Troughon 07-25-2023 Vanco Trough 22.80 mcg/mL High 10.00-15.00 [facility] Comment on above: Performed By: #### V ANCT ####[address] [address] .eGFRon 07-24-2023 GFR/1.73 sq M.predicted MDRD (S/P/Bld) [Vol rate/Area] mL/min/{1.73_m2} Normal >=60 [facility] Comment on above: Result Comment: [facility] [...] = years Performed By: #### E GFR ####[address] [address] Basic Metabolic Profileon Anion gap [Moles/Vol] 11 mmol/L Normal 7-17 [facility] Comment on above: Performed By: #### C D:[id number] ####[address] [address] Calcium [Mass/Vol] 8.0 mg/dL Low 8.5-10.3 [facility] Comment on above: Performed By: #### C D:[id number] ####[address] [address] Chloride [Moles/Vol] 101 mmol/L Normal 98-110 [facility] Comment on above: Performed By: #### C D:[id number] ####[address] [address] CO2 [Moles/Vol] 24 mmol/L Normal 22-32 [facility] Comment on above: Performed By: #### C D:[id number] ####[address] [address] Creatinine [Mass/Vol] 0.66 mg/dL Normal 0.61-1.24 [facility] Comment on above: Performed By: #### C D:[id number] ####[address] [address] Glucose [Mass/Vol] 168 mg/dL High 70-99 [facility] Comment on above: Performed By: #### C D:[id number] ####[address] [address] Potassium [Moles/Vol] 4.6 mmol/L Normal 3.4-4.8 [facility] Comment on above: Performed By: #### C D:[id number] ####[address] [address] Sodium [Moles/Vol] 131 mmol/L Low 133-142 [facility] Comment on above: Performed By: #### C D:[id number] ####[address] [address] Urea nitrogen [Mass/Vol] 11 mg/dL Normal 8-26 [facility] Comment on above: Performed By: #### C D:[id number] ####[address] [address] Urea nitrogen/Creatinine [Mass ratio] 16.7 mg/mg Normal 10.0-20.0 [facility] Comment on above: Performed By: #### C D:[id number] ####[address] [address] CBCon 07-24-2023 Erythrocyte distribution width (RBC) [Ratio] 14.6 % Normal 11.6-14.8 [facility] Comment on above: Performed By: #### C BCI ####[address] [address] Hematocrit (Bld) [Volume fraction] 29.9 % Low 41.0-53.0 [facility] Comment on above: Performed By: #### C BCI ####[address] [address] Hemoglobin (Bld) [Mass/Vol] 10.1 g/dL Low 13.5-17.5 [facility] Comment on above: Performed By: #### C BCI ####[address] [address] MCH (RBC) [Entitic mass] 31.8 pg Normal 27.0-35.0 [facility] Comment on above: Performed By: #### C BCI ####[address] [place] [address] MCHC 33.9 % Normal 31.0-37.0 [facility] Comment on above: Performed By: #### C BCI ####[place] [address] MCV (RBC) [Entitic vol] 93.8 fL Normal 80.0-100.0 [facility] Comment on above: Performed By: #### C BCI ####[place] [address] Platelet 126 x10*3/mcL Low 150-450 [facility] Comment on above: Performed By: #### C BCI ####[place] [address] Platelet mean volume (Bld) [Entitic vol] 6.8 fL Normal 6.7-10.6 [facility] Comment on above: Performed By: #### C BCI ####[place] [address] RBC 3.19 x10*6/mcL Low 4.30-5.80 [facility] Comment on above: Performed By: #### C BCI ####[place] [address] WBC 6.9 x10*3/mcL Normal 4.5-11.0 [facility] Comment on above: Performed By: #### C BCI ####[place] [address] Infectious Disease Progress Noteon 07-24-2023 Infectious Disease Progress Note Normal [facility] Magnesiumon 07-24-2023 Magnesium [Mass/Vol] 1.6 mg/dL Low 1.7-2.4 [facility] Comment on above: Performed By: #### M G ####[place] [address] Orthopedic Progress Noteon 1 Orthopedic Progress Note Normal [facility] POC Glucose Randomon 023 Glucose [Mass/Vol] 197 mg/dL High 70-99 [facility] Comment on above: Performed By: #### C D:[id number] ####[address] [address] Glucose [Mass/Vol] 258 mg/dL High 70-99 [facility] Comment on above: Performed By: #### C D:[id number] ####[address] [address] Glucose [Mass/Vol] 338 mg/dL High 70-99 [facility] Comment on above: Performed By: #### C D:[id number] ####[address] [address] Glucose [Mass/Vol] 341 mg/dL High 70-99 [facility] Comment on above: Performed By: #### C D:[id number] ####[address] [address] Glucose [Mass/Vol] 167 mg/dL High 70-99 [facility] Comment on above: Performed By: #### C D:[id number] ####[address] [address] Progress Note-Nurseon 2022 Progress Note-Nurse Normal [facility] Progress Note-Nurse Normal [facility] Vanco Troughon 07-24-2023 Vanco Trough 9.50 mcg/mL Low 10.00-15.00 [facility] Comment on above: Performed By: #### V ANCT ####[address] [address] XR PICC Floor Inserton 07-24 XR PICC Floor Insert Normal [facility] .eGFRon 07-23-2023 GFR/1.73 sq M.predicted MDRD (S/P/Bld) [Vol rate/Area] mL/min/{1.73_m2} Normal >=60 [facility] Comment on above: Result Comment: [facility] [...] = years Performed By: #### E GFR ####[address] [address] Basic Metabolic Profileon Anion gap [Moles/Vol] 10 mmol/L Normal 7-17 [facility] Comment on above: Performed By: #### C D:[id number] ####[address] [address] Calcium [Mass/Vol] 8.3 mg/dL Low 8.5-10.3 [facility] Comment on above: Performed By: #### C D:[id number] ####[address] [place] [address] Chloride [Moles/Vol] 103 mmol/L Normal 98-110 [facility] Comment on above: Performed By: #### C D:[id number] ####[address] [address] CO2 [Moles/Vol] 24 mmol/L Normal 22-32 [facility] Comment on above: Performed By: #### C D:[id number] ####[address] [address] Creatinine [Mass/Vol] 0.92 mg/dL Normal 0.61-1.24 [facility] Comment on above: Performed By: #### C D:[id number] ####[address] [address] Glucose [Mass/Vol] 218 mg/dL High 70-99 [facility] Comment on above: Performed By: #### C D:[id number] ####[address] [address] Potassium [Moles/Vol] 4.2 mmol/L Normal 3.4-4.8 [facility] Comment on above: Performed By: #### C D:[id number] ####[address] [address] Sodium [Moles/Vol] 133 mmol/L Normal 133-142 [facility] Comment on above: Performed By: #### C D:[id number] ####[address] [address] Urea nitrogen [Mass/Vol] 12 mg/dL Normal 8-26 [facility] Comment on above: Performed By: #### C D:[id number] ####[address] [address] Urea nitrogen/Creatinine [Mass ratio] 13.0 mg/mg Normal 10.0-20.0 [facility] Comment on above: Performed By: #### C D:[id number] ####[address] [address] CBCon 07-23-2023 Erythrocyte distribution width (RBC) [Ratio] 14.4 % Normal 11.6-14.8 [facility] Comment on above: Performed By: #### C BCI ####[address] [address] Hematocrit (Bld) [Volume fraction] 34.4 % Low 41.0-53.0 [facility] Comment on above: Performed By: #### C BCI ####[address] [address] Hemoglobin (Bld) [Mass/Vol] 11.6 g/dL Low 13.5-17.5 [facility] Comment on above: Performed By: #### C BCI ####[place] [address] MCH (RBC) [Entitic mass] 31.7 pg Normal 27.0-35.0 [facility] Comment on above: Performed By: #### C BCI ####[place] [address] MCHC 33.7 % Normal 31.0-37.0 [facility] Comment on above: Performed By: #### C BCI ####[place] [address] MCV (RBC) [Entitic vol] 93.8 fL Normal 80.0-100.0 [facility] Comment on above: Performed By: #### C BCI ####[place] [address] Platelet 133 x10*3/mcL Low 150-450 [facility] Comment on above: Performed By: #### C BCI ####[place] [address] Platelet mean volume (Bld) [Entitic vol] 7.2 fL Normal 6.7-10.6 [facility] Comment on above: Performed By: #### C BCI ####[place] [address] RBC 3.67 x10*6/mcL Low 4.30-5.80 [facility] Comment on above: Performed By: #### C BCI ####[place] [address] WBC 9.3 x10*3/mcL Normal 4.5-11.0 [facility] Comment on above: Performed By: #### C BCI ####[place] [address] Infectious Disease Consultat ionon 07-23-2023 Infectious Disease Consultation Normal [facility] Magnesiumon 07-23-2023 Magnesium [Mass/Vol] 1.6 mg/dL Low 1.7-2.4 [facility] Comment on above: Performed By: #### M G ####[address] [address] Orthopedic Progress Noteon 1 Orthopedic Progress Note Normal [facility] POC Glucose Randomon 023 Glucose [Mass/Vol] 254 mg/dL High 70-99 [facility] Comment on above: Performed By: #### C D:[id number] ####[address] [address] Glucose [Mass/Vol] 217 mg/dL High 70-99 [facility] Comment on above: Performed By: #### C D:[id number] ####[address] [address] Glucose [Mass/Vol] 383 mg/dL High 70-99 [facility] Comment on above: Performed By: #### C D:[id number] ####[address] [address] Progress Note-Nurseon 2022 Progress Note-Nurse [facility] Comment on above: Order Comment: 125mm /hg /low setting .BF Cell Cnt RBC Aon 023 Fluid RBC Count [id number] /mcL Normal [facility] Comment on above: Performed By: #### . Body Fluid Cell Count RBC Auto ####[address] [address] Fluid RBC Count [id number] /mcL Normal [facility] Comment on above: Performed By: #### . Body Fluid Cell Count RBC Auto ####[address] [address] Fluid RBC Count [id number] /mcL Normal [facility] Comment on above: Performed By: #### . Body Fluid Cell Count RBC Auto ####[address] [address] .BF Cell Cnt WBC Aon 023 Fluid WBC Count [id number] /mcL High 0-150 [facility] Comment on above: Performed By: #### . Body Fluid Cell Count WBC Auto ####[address] [address] Fluid WBC Count 82894 /mcL High 0-150 [facility] Comment on above: Performed By: #### . Body Fluid Cell Count WBC Auto ####[address] [address] Fluid WBC Count [id number] /mcL High 0-150 [facility] Comment on above: Performed By: #### . Body Fluid Cell Count WBC Auto ####[address] [address] .BF Diffon 07-22-2023 Fluid Mononuclear Cells 4 % Normal 0-78 [facility] Comment on above: Performed By: #### . Body Fluid Differential ####[address] [address] Fluid Other Cells 0 % Normal 0-10 [facility] Comment on above: Performed By: #### . Body Fluid Differential ####[address] [address] Fluid Polynuclear Cells 96 % High 0-25 [facility] Comment on above: Performed By: #### . Body Fluid Differential ####[address] [address] Fluid Mononuclear Cells 5 % Normal 0-78 [facility] Comment on above: Performed By: #### . Body Fluid Differential ####[address] [address] Fluid Other Cells 0 % Normal 0-10 [facility] Comment on above: Performed By: #### . Body Fluid Differential ####[address] [address] Fluid Polynuclear Cells 95 % High 0-25 [facility] Comment on above: Performed By: #### . Body Fluid Differential ####[address] [address] Fluid Mononuclear Cells 4 % Normal 0-78 [facility] Comment on above: Performed By: #### . Body Fluid Differential ####[address] [address] Fluid Other Cells 0 % Normal 0-10 [facility] Comment on above: Performed By: #### . Body Fluid Differential ####[address] [address] Fluid Polynuclear Cells 96 % High 0-25 [facility] Comment on above: Performed By: #### . Body Fluid Differential ####[address] [address] .eGFRon 07-22-2023 GFR/1.73 sq M.predicted MDRD (S/P/Bld) [Vol rate/Area] mL/min/{1.73_m2} Normal >=60 [facility] Comment on above: Result Comment: [facility] [...] = years Performed By: #### E GFR ####[address] [address] BF Cell Counton 07-22-2023 Body Fluid Cell Cnt Type Synovial Normal [facility] Comment on above: Performed By: #### F LCC ####[address] [address] Body Fluid Cell Cnt Type Synovial [facility] Comment on above: Performed By: #### F LC ####[place] [address] Body Fluid Cell Cnt Type Synovial [facility] Comment on above: Performed By: #### F LC ####[address], [facility] C Sterile BF 07-22-2023 C Sterile BF ------- Final No growth at 2 weeks. ------- Gram Stain Many White Blood Cells No organisms seen. [facility] Comment on above: Performed By: #### C SBF ####[place] [address] C Sterile BF ------- Final No growth at 2 weeks. ------- Gram Stain Many White Blood Cells No organisms seen. [facility] Comment on above: Performed By: #### C SBF ####[place] [address] Occupational Medicine Progre ss Noteon 07-22-2023 Occupational Medicine Progress Note Normal [facility] Operative Reporton Operative Report Normal [facility] Orthopedic Consultationon Orthopedic Consultation Normal [facility] POC Glucose Randomon 023 Glucose [Mass/Vol] 167 mg/dL High 70-99 [facility] Comment on above: Performed By: #### C D:[id number] ####[address] [address] Glucose [Mass/Vol] 139 mg/dL High 70-99 [facility] Comment on above: Performed By: #### C D:[id number] ####[address] [address] Glucose [Mass/Vol] 121 mg/dL High 70-99 [facility] Comment on above: Performed By: #### C D:[id number] ####[address] [address] Glucose [Mass/Vol] 198 mg/dL High 70-99 [facility] Comment on above: Performed By: #### C D:[id number] ####[address] [address] Physical Therapy Progress No yossi 07-22-2023 Physical Therapy Progress Note Normal [facility] Physical Therapy Progress Note Normal [facility] Renal Panelon 07-22-2023 Albumin [Mass/Vol] 3.3 g/dL Normal 3.2-4.9 [facility] Comment on above: Performed By: #### R ENAL ####[address] [address] Anion gap [Moles/Vol] 10 mmol/L Normal 7-17 [facility] Comment on above: Performed By: #### R ENAL ####[address] [address] Calcium [Mass/Vol] 8.8 mg/dL Normal 8.5-10.3 [facility] Comment on above: Performed By: #### R ENAL ####[address] [address] Chloride [Moles/Vol] 102 mmol/L Normal 98-110 [facility] Comment on above: Performed By: #### R ENAL ####[address] [address] CO2 [Moles/Vol] 25 mmol/L Normal 22-32 [facility] Comment on above: Performed By: #### R ENAL ####[address] [address] Creatinine [Mass/Vol] 1.03 mg/dL Normal 0.61-1.24 [facility] Comment on above: Performed By: #### R ENAL ####[address] [address] Glucose [Mass/Vol] 165 mg/dL High 70-99 [facility] Comment on above: Performed By: #### R ENAL ####[address] [address] Phosphate [Mass/Vol] 3.1 mg/dL Normal 2.5-4.6 [facility] Comment on above: Performed By: #### R ENAL ####[address] [address] Potassium [Moles/Vol] 4.5 mmol/L Normal 3.4-4.8 [facility] Comment on above: Performed By: #### R ENAL ####[address] [address] Sodium [Moles/Vol] 133 mmol/L Normal 133-142 [facility] Comment on above: Performed By: #### R ENAL ####[address] [address] Urea nitrogen [Mass/Vol] 15 mg/dL Normal 8-26 [facility] Comment on above: Performed By: #### R ENAL ####[address] [address] Urea nitrogen/Creatinine [Mass ratio] 14.6 mg/mg Normal 10.0-20.0 [facility] Comment on above: Performed By: #### R ENAL ####[address] [address] .eGFRon 07-21-2023 GFR/1.73 sq M.predicted MDRD (S/P/Bld) [Vol rate/Area] mL/min/{1.73_m2} Normal >=60 [facility] Comment on above: Result Comment: [facility] [...] = years Performed By: #### E GFR ####[address] [address] Basic Metabolic Profileon Creatinine [Mass/Vol] 0.90 mg/dL Normal 0.61-1.24 [facility] Comment on above: Performed By: #### C D:[id number] ####[address] [address] Urea nitrogen [Mass/Vol] 16 mg/dL Normal 8-26 [facility] Comment on above: Performed By: #### C D:[id number] ####[address] [place] [address] Urea nitrogen/Creatinine [Mass ratio] 17.8 mg/mg Normal 10.0-20.0 [facility] Comment on above: Performed By: #### C D:[id number] ####[address] [address] Anion gap [Moles/Vol] 11 mmol/L Normal 7-17 [facility] Comment on above: Performed By: #### C D:[id number] ####[address] [address] Calcium [Mass/Vol] 8.6 mg/dL Normal 8.5-10.3 [facility] Comment on above: Performed By: #### C D:[id number] ####[address] [address] Chloride [Moles/Vol] 100 mmol/L Normal 98-110 [facility] Comment on above: Performed By: #### C D:[id number] ####[address] [address] CO2 [Moles/Vol] 22 mmol/L Normal 22-32 [facility] Comment on above: Performed By: #### C D:[id number] ####[address] [address] Glucose [Mass/Vol] 177 mg/dL High 70-99 [facility] Comment on above: Performed By: #### C D:[id number] ####[address] [address] Potassium [Moles/Vol] 3.8 mmol/L Normal 3.4-4.8 [facility] Comment on above: Performed By: #### C D:[id number] ####[address] [address] Sodium [Moles/Vol] 129 mmol/L Low 133-142 [facility] Comment on above: Performed By: #### C D:[id number] ####[address] [address] CBCon 07-21-2023 Erythrocyte distribution width (RBC) [Ratio] 15.2 % High 11.6-14.8 [facility] Comment on above: Performed By: #### C BCI ####[address] [address] Hematocrit (Bld) [Volume fraction] 38.0 % Low 41.0-53.0 [facility] Comment on above: Performed By: #### C BCI ####[place] [id number] Hemoglobin (Bld) [Mass/Vol] 12.8 g/dL Low 13.5-17.5 [facility] Comment on above: Performed By: #### C BCI ####[address] [address] MCH (RBC) [Entitic mass] 31.7 pg Normal 27.0-35.0 [facility] Comment on above: Performed By: #### C BCI ####[place] [id number] MCHC 33.7 % Normal 31.0-37.0 [facility] Comment on above: Performed By: #### C BCI ####[address] [address] MCV (RBC) [Entitic vol] 94.0 fL Normal 80.0-100.0 [facility] Comment on above: Performed By: #### C BCI ####[address] [address] Platelet 156 x10*3/mcL Normal 150-450 [facility] Comment on above: Performed By: #### C BCI ####[address] [address] Platelet mean volume (Bld) [Entitic vol] 7.2 fL Normal 6.7-10.6 [facility] Comment on above: Performed By: #### C BCI ####[address] [address] RBC 4.04 x10*6/mcL Low 4.30-5.80 [facility] Comment on above: Performed By: #### C BCI ####[address] [address] WBC 13.7 x10*3/mcL High 4.5-11.0 [facility] Comment on above: Performed By: #### C BCI ####[address] [address] CRPon 07-21-2023 CRP 24.09 mg/dL High 0.00-0.75 [facility] Comment on above: Result Comment: CRP measurement is useful for assessment of non-specificINFLAMMATORY RESPONSE to infection or injury AND is asensitive MARKER of ACUTE INFLAMMATION including CARDIACRISK ASSESSMENT.CARDIAC patients with elevated CRP are POTENTIALLY at aHIGHER RISK OF FUTURE CARDIAC EVENTS. Performed By: #### C RP ####[place] [id number] ED Clinical Summaryon 2022 ED Clinical Summary Normal [facility] ED Note-Physicianon 07-21-20 ED Note-Physician Normal [facility] ESRon 07-21-2023 Sed Rate 23 mm/hr Normal 0-23 [facility] Comment on above: Performed By: #### E SR ####[place] [id number] Hgb A1con 07-21-2023 Glucose [Mass/Vol] 120 mg/dL High 68-114 [facility] Comment on above: Result Comment: Math ematical Calc approx. The mean gluc equivalency of A1c Performed By: #### H BA1C ####[address] [address] Hgb A1c 5.8 % A1c High 4.0-5.6 [facility] Comment on above: Result Comment: Refe rence Range:4.0 - 5.6 % Normal5.7 - 6.4 % Pre-Diabetes > 6.5 % Diabetes Performed By: #### H BA1C ####[facility] [place] [address] Magnesiumon 07-21-2023 Magnesium [Mass/Vol] 1.7 mg/dL Normal 1.7-2.4 [facility] Comment on above: Performed By: #### M G ####[address] [address] XR CHEST (2 VW)on 06-11-2023 Multifocal bibasilar pneumonia. Probable mild reactive left hilar adenopathy. No sizable pleural effusion. The findings were sent to the Radiology Results Communication [facility] at 9:05 a.m. on 06/11/2023 to be communicated to a licensed caregiver. [facility] EXAMINATION: TWO XRAY VIEWS OF THE [...] appearing height loss mid-lower TS vertebral bodies. [facility] Chris Wiseman MD - 06/11/2023 EXAMINATION: [...] be communicated to a licensed caregiver. [facility] XR CHEST (2 VW)Ordered By: Mame Wiseman on 06-11-2023 [facility] Work Phone: APTTon 06-10-2023 Interpretation and review of laboratory results Abnormal [facility] PTT Critically high [facility] Comment on above: IV Heparin Therapy Range: 62.0-94.0 [facility] CBC with Auto Differentialon 06-10-2023 Basophils (Bld) [#/Vol] 0.07 10*3/uL [facility] Basophils/100 WBC (Bld) 1 % 0 - 2 % [facility] Eosinophils (Bld) [#/Vol] 1.14 10*3/uL High [facility] Eosinophils/100 WBC (Bld) 9 % High 1 - 4 % [facility] Erythrocyte distribution width (RBC) [Ratio] 12.5 % 11.8 - 14.4 % [facility] Hematocrit (Bld) [Volume fraction] 40.4 % Low 40.7 - 50.3 % [facility] Hemoglobin (Bld) [Mass/Vol] 13.7 g/dL 13.0 - 17.0 g/dL [facility] Immature granulocytes (Bld) [#/Vol] 0.06 10*3/uL [facility] Immature granulocytes/100 WBC (Bld) 1 % High 0 [facility] Interpretation and review of laboratory results Abnormal [facility] Lymphocytes/100 WBC (Bld) 12 % Low 24 - 43 % [facility] Lymphocytes/100 WBC (Bld) 1.47 % [facility] MCH (RBC) [Entitic mass] 30.4 pg 25.2 - 33.5 pg [facility] MCHC (RBC) [Mass/Vol] 33.9 g/dL 28.4 - 34.8 g/dL [facility] MCV (RBC) [Entitic vol] 89.8 fL 82.6 - 102.9 fL [facility] Monocytes/100 WBC (Bld) 6 % 3 - 12 % [facility] Monocytes/100 WBC (Bld) 0.73 % [facility] Neutrophils/100 WBC (Bld) 71 % High 36 - 65 % [facility] Nucleated RBC/100 WBC (Bld) [Ratio] 0.0 % 0.0 per 100 WBC [facility] Platelet mean volume (Bld) [Entitic vol] 9.3 fL 8.1 - 13.5 fL [facility] Platelets (Bld) [#/Vol] 162 10*3/uL [facility] RBC (Bld) [#/Vol] 4.50 10*6/uL 4.21 - 5.7 7 m/uL [facility] Segmented neutrophils/100 WBC (Bld) 8.83 % High [facility] WBC other (Bld) [#/Vol] 12.3 High [facility] Comprehensive Metabolic Pane marlena 06-10-2023 Albumin [Mass/Vol] 4.2 g/dL 3.5 - 5.2 g/dL [facility] Albumin/Globulin [Mass ratio] 1.6 {ratio} 1.0 - 2.5 [facility] ALP [Catalytic activity/Vol] 132 U/L High 40 - 129 U/L [facility] ALT [Catalytic activity/Vol] 102 U/L High 5 - 41 U/L [facility] Anion gap [Moles/Vol] 10 mmol/L 9 - 17 mmol/L [facility] AST [Catalytic activity/Vol] 33 U/L NINF - 40 U/L [facility] Bilirubin [Mass/Vol] 0.5 mg/dL 0.3 - 1 .2 mg/dL [facility] Calcium [Mass/Vol] 9.6 mg/dL 8.6 - 10. 4 mg/dL [facility] Chloride [Moles/Vol] 95 mmol/L Low 98 - 10 7 mmol/L [facility] CO2 [Moles/Vol] 26 mmol/L 20 - 31 mmol/L [facility] Creatinine [Mass/Vol] 0.8 mg/dL 0.7 - 1.2 mg/dL [facility] GFR/1.73 sq M.predicted MDRD (S/P/Bld) [Vol rate/Area] - PINF [facility] Comment on above: These results are [...] mg/dL High 70 - 99 mg/dL [facility] Interpretation and review of laboratory results Abnormal [facility] Potassium [Moles/Vol] 5.0 mmol/L 3.7 - 5.3 mmol/L [facility] Protein [Mass/Vol] 6.9 g/dL 6.4 - 8.3 g/dL [facility] Sodium [Moles/Vol] 131 mmol/L Low 135 - 144 mmol/L [facility] Urea nitrogen [Mass/Vol] 14 mg/dL 8 - 23 mg/dL [facility] Urea nitrogen/Creatinine [Mass ratio] 18 mg/mg 9 - 20 [facility] Microscopic Urinalysison Bacteria LM Ql (Urine sed) TRACE Abnormal None [facility] Epithelial cells LM.HPF (Urine sed) [#/Area] 0 TO 2 [facility] Interpretation and review of laboratory results Abnormal [facility] Mucus Ql (Urine sed) TRACE Abnormal None [facility] RBC LM.HPF (Urine sed) [#/Area] 0 TO 2 [facility] WBC LM.HPF (Urine sed) [#/Area] 0 TO 2 [facility] Protime-INRon 06-10-2023 INR Coag (PPP) [Relative time] 10.1 {INR} Critically high [facility] Comment on above: Therapeutic Range: Moderate Anticoagulant Intensity: INR = 2.0-3.0 High Anticoagulant Intensity: INR = 2.5-3.5 Interpretation and review of laboratory results Abnormal [facility] PT Coag (PPP) [Time] 80.7 s High [facility] TYPE AND SCREENon 06-10-2023 ABO and Rh group Nom (Bld) Blood group A Rh(D) positive [facility] Arm Band Number [id number] [facility] Blood Bank Sample Expiration 06/13/2023,2356 [facility] Blood group antibodies identified Nom Negative [facility] Urinalysis with Reflex to Cu ltureon 06-10-2023 Bilirubin Ql (U) Negative NEGATIVE [facility] Clarity (U) Clear Clear [facility] Color (U) Yellow Yellow [facility] Glucose Test strip (U) [Mass/Vol] 2+ Abnormal NEGATIVE mg/dL [facility] Hemoglobin Auto test strip Ql (U) Negative NEGATIVE [facility] Interpretation and review of laboratory results Abnormal [facility] Ketones (U) [Mass/Vol] Negative NEGATIVE mg/dL [facility] Leukocyte esterase Test strip Ql (U) Negative NEGATIVE [facility] Nitrite Ql (U) Negative NEGATIVE [facility] pH (U) 6.5 [pH] 5.0 - 9.0 [facility] Protein (U) [Mass/Vol] Negative NEGATIVE mg/dL [facility] Specific gravity (U) [Rel density] Low 1.010 - 1.020 [facility] Urobilinogen Qn (U) Normal 0.0 - 1. 0 EU/dL [facility] XR CHEST (2 VW)on 06-10-2023 Radiology Study observation (narrative) [facility] CARDIAC STRESS/REST INJE CTIONon 05-25-2023 [facility] CARDIAC STRESS/REST INJECTION Patient Name: JOIE LU STUDY: MYOCARDIAL PERFUSION STRESS TEST WITH LEXISCAN Performing facility: [facility], [address] [place] [address], [address], [place] [address] [facility] Provider: Mily Marlow MD PCP: Dr. Alvarado Supervising provider: Keira Boles MD, FACC INDICATION: Abnormal EKG; HTN Pre-operative risk assessment for Knee scheduled at [facility] on TBD. HISTORY: Gender: M; Age: 68 y/o ; Height: 0 cm; Weight: 194.1193928 kg. High Cholesterol; Abnormal EKG; Diabetes; HTN; Quit smoking 40 years ago. Cardiac catheterization on 2007 per patient. COMPARISON: No comparison. ACCESSION NUMBER(S): [id number]; [id number]; [id number] ORDERING CLINICIAN: MILY MARLOW TECHNIQUE: TWO DAY [...] [facility] No Panel Informationon 05-25 Normal -[facility] 250 DO Work Phone: CT chest w conon 04-14-2023 CT chest w [facility] [place] [address] CT Scan Report Signed Patient: Joie Lu MR#: [id number] : 1955 Acct:[id number] Age/Sex: 67 / M ADM Date: 04/14/23 Loc: CT Room: Type: [facility] Attending Dr: Agustin Nj MD Copies [...] Alexander Cleveland M.D.04/14/2023 3:15 PM Dictation Location: [place] [address] Transcribed By: [facility] 04/14/23 1515 Dictated By: Alexander Cleveland DO 04/14/23 1504 Signed By: 04/14/23 1515 Normal [facility] Creatinine (Bld) [Mass/Vol]O rdered By: Agustin Nj on 04-14-2023 Creatinine [Mass/Vol] 0.7 mg/dL 0.6-1.3 [facility] Comment on above: ER/ESD physician [...] mGy = 0 DAP = 0 Normal [facility] ABO/Rh Retypeon 03-27-2023 ABO/Rh Retype Interp Positive Invalid Interpretation Code [facility] Comment on above: Performed By: #### 1 [id number] #### [facility] Laboratory [address] [place] [address] BUNon 03-27-2023 Urea nitrogen [Mass/Vol] 16 mg/dL Normal 5-21 [facility] Comment on above: Performed By: #### 2 747085, 8808169, 3595651, 1209081, 9419936, [id number] #### [facility] [address] [place] [address] CBC w/Indiceson 03-27-2023 Erythrocyte distribution width (RBC) [Ratio] 12.5 % Normal 10.9-14.2 [facility] Comment on above: Performed By: #### 2 572850, 0921879, 7950329, 9453800, 2448159, 78323188 #### [facility] [address] [place] [address] Hematocrit (Bld) [Volume fraction] 41.1 % Normal 37.7-49.0 [facility] Comment on above: Performed By: #### 2 458302, 0096375, 1164989, 0992954, 6117013, 60993723 #### [facility] [address] [place] [address] Hemoglobin (Bld) [Mass/Vol] 13.9 g/dL Normal 13.5-17.5 [facility] Comment on above: Performed By: #### 2 374337, 4273481, 8364872, 8962457, 4819468, 79683681 #### [facility] [address] [place] [address] MCH (RBC) [Entitic mass] 29.9 pg Normal 27.0-34.0 [facility] Comment on above: Performed By: #### 2 237479, 5266668, 1530079, 8518698, 9230136, 54967370 #### [facility] [address] [place] [address] MCHC (RBC) [Mass/Vol] 33.8 g/dL Normal 31.4-36.0 [facility] Comment on above: Performed By: #### 2 705157, 7206462, 4532200, 9506464, 2958696, 77710039 #### [facility] [address] [place] [address] MCV (RBC) [Entitic vol] 88.5 fL Normal 80.0-100.0 [facility] Comment on above: Performed By: #### 2 522649, 7122095, 3274217, 7674917, 8227765, 74636717 #### [facility] [address] [place] [address] Platelet mean volume (Bld) [Entitic vol] 7.6 fL Normal 6.4-10.8 [facility] Comment on above: Performed By: #### 2 593841, 7063743, 4931830, 4963423, 5500749, 25422954 #### [facility] [address] [place] [address] Platelets (Bld) [#/Vol] 168.0 E9/L Normal 150.0-500.0 [facility] Comment on above: Performed By: #### 2 196854, 2635990, 2605663, 4908973, 3802006, 57142217 #### [facility] [address] [place] [address] RBC (Bld) [#/Vol] 4.6 E12/L Normal 4.3-5.9 [facility] Comment on above: Performed By: #### 2 711432, 0379565, 3486451, 8608349, 8740260, 75805242 #### [facility] [address] [place] [address] WBC corrected for nucl RBC Auto (Bld) [#/Vol] 8.8 E9/L Normal 4.0-11.0 [facility] Comment on above: Performed By: #### 2 329647, 0037721, 7652252, 7284694, 0259240, 78552647 #### [facility] [address] [place] [address] Consent for Treatmenton Consent for Treatment [id number] #[id number] Normal [facility] Creatinineon 03-27-2023 Creatinine [Mass/Vol] 1.0 mg/dL Normal 0.5-1.3 [facility] Comment on above: Performed By: #### 2 835611, 7413158, 1320516, 7895502, 3428903, 46140736 #### [facility] [address] [place] [address] Glucoseon 03-27-2023 Glucose [Mass/Vol] 332 mg/dL High 55-199 [facility] Comment on above: Performed By: #### 2 229575, 5217031, 3729971, 6181975, 7568504, 99099845 #### [facility] [address] [place] [address] Lyteson 03-27-2023 Anion gap [Moles/Vol] 13 mmol/L Normal 6-16 [facility] Comment on above: Performed By: #### 2 400438, 2288344, 4981561, 1218746, 7444795, 08575858 #### [facility] [address] [place] [address] Chloride [Moles/Vol] 97 mmol/L Low 101-111 [facility] Comment on above: Performed By: #### 2 801254, 7102849, 7221502, 7614499, 3697650, 74989234 #### [facility] [address] [place] [address] CO2 [Moles/Vol] 24 mmol/L Normal 21-31 [facility] Comment on above: Performed By: #### 2 217149, 5558010, 3588597, 1866497, 5044228, 33710027 #### [facility] [address] [place] [address] Potassium [Moles/Vol] 4.3 mmol/L Normal 3.5-5.3 [facility] Comment on above: Performed By: #### 2 995402, 6194092, 6988146, 3114785, 5167408, 68585658 #### [facility] [address] [place] [address] Sodium [Moles/Vol] 130 mmol/L Low 135-145 [facility] Comment on above: Performed By: #### 2 896147, 2071998, 3944956, 2344615, 9075464, 18610161 #### [facility] [address] [place] [address] UA With Cult Reflexon 2022 Bilirubin Ql (U) Negative Normal Negative [facility] Comment on above: Performed By: #### 1 [id number] #### [facility] [address] [place] [address] Clarity (U) CLEAR Normal Clear [facility] Comment on above: Performed By: #### 1 [id number] #### [facility] [address] [place] [address] Color (U) YELLOW Normal Yellow [facility] Comment on above: Performed By: #### 1 [id number] #### [facility] [address] [place] [address] Epithelial cells.squamous LM.HPF (Urine sed) [#/Area] 0-2 Normal 0-2 [facility] Comment on above: Performed By: #### 1 [id number] #### [facility] [address] [place] [address] Glucose Test strip (U) [Mass/Vol] 2+ Abnormal Negative [facility] Comment on above: Performed By: #### 1 [id number] #### [facility] [address] [place] [address] Hemoglobin Ql (U) Negative Normal Negative [facility] Comment on above: Performed By: #### 1 [id number] #### [facility] [address] [place] [address] Ketones (U) [Mass/Vol] Negative Normal Negative [facility] Comment on above: Performed By: #### 1 [id number] #### [facility] [address] [place] [address] La Ward.plasma/Lithi um.RBC (Bld) [Mass ratio] 0-3 Normal 0-3 [facility] Comment on above: Performed By: #### 1 [id number] #### [facility] [address] [place] [address] Nitrite Ql (U) Negative Normal Negative [facility] Comment on above: Performed By: #### 1 [id number] #### [facility] [address] [place] [address] pH (U) 6.0 [pH] Invalid Interpretation Code 5.0-9.0 [facility] Comment on above: Performed By: #### 1 [id number] #### [facility] [address] [place] [address] Protein (U) [Mass/Vol] Negative Normal Negative [facility] Comment on above: Performed By: #### 1 [id number] #### [facility] [address] [place] [address] Specific gravity (U) [Rel density] 1.015 Invalid Interpretation Code 1.005-1.030 [facility] Comment on above: Performed By: #### 1 [id number] #### [facility] [address] [place] [address] Type of Urine collection method Clean Catch Normal [facility] Comment on above: Performed By: #### 1 [id number] #### [facility] [address] [place] [address] Urobilinogen Qn (U) 0.2 {Johanne'U}/dL Normal 0.0-1.0 [facility] Comment on above: Performed By: #### 1 2252871 #### [facility] [address] [place] [address] WBC Auto Ql (U) Negative Normal Negative [facility] Comment on above: Performed By: #### 1 [id number] #### [facility] [address] [place] [address] WBC LM.HPF (Urine sed) [#/Area] 0-5 Normal 0-5 [facility] Comment on above: Performed By: #### 1 1004296 #### [facility] [address] [place] [address] eGFRon 03-27-2023 GFR/1.73 sq M.predicted among non-blacks MDRD (S/P/Bld) [Vol rate/Area] 83 mL/min/1.73 m2 Normal >=59 [facility] Comment on above: Order Comment: Order added by Discern Expert. Result Comment: Maintenance Mechanic Supervisor helder kidney disease could be indicated at eGFR's of less than 60 mL/min/1.73m2. Kidney failure is indicated at less than 15 mL/min/1.73m2. Performed By: #### 2 357408, 4782680, 8227812, 8050326, 1678635, 58771399 #### [facility] Laboratory [address] [place] [address] XR KNEE RT 4V or >on 023 [...] by: WILFRIDO PIERRE Date: 2023-02-15 16:49 Normal [facility] XR LSPINE 2_3 VIEWSon 2022 XR LSPINE [...] by: CASSY MARTIN Date: 2023-01-30 19:57 Normal [facility] XR TIB_FIB LT 2Von 3 XR TIB_FIB [...] CASSY MARTIN Date: 2023-01-30 19:56 Normal [facility] CBC AUTO DIFFon 12-22-2022 BASO # 0.1 103/ul Normal 0.0-0.1 [facility] Comment on above: Performed By: #### C BC ####[facility] [address] [place] [id number] Nevaehrachel Zhang Basophils/100 WBC (Bld) 0.6 % Normal 0.2-2.0 [facility] Comment on above: Performed By: #### C BC ####[facility] [address] [place] [address]Dr. Nevaehrachel Zhang EO # 0.6 103/ul Normal 0.0-0.7 [facility] Comment on above: Performed By: #### C BC ####[facility] [address] [place] [address]Dr. Heidi Zhang Eosinophils/100 WBC (Bld) 7.4 % Critically high 0.9-7.0 [facility] Comment on above: Performed By: #### C BC ####[facility] [address] [place] [address]Dr. Nevaehrachel Zhang Erythrocyte distribution width (RBC) [Ratio] 12.4 % Normal 11.0-15.0 [facility] Comment on above: Performed By: #### C BC ####[facility] [address] [place] [address]Dr. Heidi Zhang Hematocrit (Bld) [Volume fraction] 44.2 % Normal 42.0-54.0 [facility] Comment on above: Performed By: #### C BC ####[facility] [address] [place] [id number] Zhang Hemoglobin (Bld) [Mass/Vol] 15.4 g/dL Normal 14.0-18.0 [facility] Comment on above: Performed By: #### C BC ####[facility] [address] [place] [address]Dr. Heidi Zhang IG # 0.04 10e3/ul Critically high 0.00-0.03 [facility] Comment on above: Performed By: #### C BC ####[facility] [address] [place] [id number] Zhang IG % 0.5 % Normal 0.0-0.5 [facility] Comment on above: Performed By: #### C BC ####[facility] [address]zyibjkywq[address] [place] [id number] Zhang LYMPH # 1.4 103/ul Normal 1.2-3.8 [facility] Comment on above: Performed By: #### C BC ####[facility] Ekqjmwokma2945 [place] [id number] Zhang Lymphocytes/100 WBC (Bld) 18.4 % Critically low 20.5-60.0 [facility] Comment on above: Performed By: #### C BC ####[facility] [address] [place] [address]DrRenee Zhang MANUAL DIFF REQ NO Normal [facility] Comment on above: Performed By: #### C BC ####[facility] Tmriltggzz0263 [place] [id number] Heidi Vicente MCH (RBC) [Entitic mass] 31.1 pg Normal 25.9-34.0 [facility] Comment on above: Performed By: #### C BC ####[facility] Lelwekwkoa4[address] [place] [id number] Zhang MCHC (RBC) [Mass/Vol] 34.8 g/dL Normal 29.9-35.2 [facility] Comment on above: Performed By: #### C BC ####[facility] Nesjbvkfdn0692 [place] [id number] Zhang MCV (RBC) [Entitic vol] 89.3 fL Normal 80.0-94.0 [facility] Comment on above: Performed By: #### C BC ####[facility] Kcyumudkua7[address] [place] [id number] Zhang MONO # 0.6 103/ul Normal 0.3-0.8 [facility] Comment on above: Performed By: #### C BC ####[facility] Lnxgmcjofr8179 [place] [id number]. Heidi Zhang Monocytes/100 WBC (Bld) 7.1 % Normal 1.7-12.0 [facility] Comment on above: Performed By: #### C BC ####[facility] Xamirekdhe57[address] [place] [id number]. Heidi Zhang NEUT # 5.1 103/ul Normal 1.4-6.5 [facility] Comment on above: Performed By: #### C BC ####[facility] Jkkhyktjah6207 [place] [id number]. Heidi Zhang Neutrophils/100 WBC (Bld) 66.0 % Normal 43.0-75.0 [facility] Comment on above: Performed By: #### C BC ####[facility] Rqxszwlhwq[address] [place] [address]Dr. Heidi Zhang Platelet mean volume (Bld) [Entitic vol] 9.0 fL Critically low 9.5-13.5 [facility] Comment on above: Performed By: #### C BC ####[facility] Bjcxhwofwz28[address] [place] [id number]. Heidi Zhang PLT 133 103/ul Critically low 150-450 [facility] Comment on above: Performed By: #### C BC ####[facility] Oktakoiest69[address] [place] [id number]. Heidi Zhang RBC 4.95 106/ul Normal 4.70-6.10 [facility] Comment on above: Performed By: #### C BC ####[facility] Ghhtntbrln6233 [place] [id number]. Heidi Zhang WBC 7.7 103/ul Normal 4.0-11.0 [facility] Comment on above: Performed By: #### C BC ####[facility] Qnrhouxwmv6728 [place] [id number]. Heidi Zhang GLYCOHEMOGLOBIN A1Con 2022 ADA RECOMMENDATION SEE BELOW Normal [facility] Comment on above: Result Comment: ADA RECOMMENDED LIMIT 4.0 - 6.0 ADA THERAPEUTIC TARGET < 7.0 ACTION SUGGESTED > 7.0 Performed By: #### A 1C #### [facility] [address] [address] [address] Heidi Zhang Glucose [Mass/Vol] 197 mg/dL Normal [facility] Comment on above: Performed By: #### A 1C #### [facility] [id number] Heidi Zhang HbA1c (Bld) [Mass fraction] 8.5 % Critically high 4.5-6.2 [facility] Comment on above: Performed By: #### A 1C #### [facility] [address] [address] [address] Heidi Zhang LIPID PROFILEon 12-22-2022 CHOL-HDL RATIO NORM SEE BELOW Normal [facility] Comment on above: Result Comment: 3.3 - 4.4 LOW RISK 4.4 - 7.1 AVERAGE RISK 7.1 - 11.0 MODERATE RISK >11.0 HIGH RISK Performed By: #### L IPID, CMP ####[facility] Pfrkbsijst85[address] [place], [place] [address]Yj. Heidi Zhang Cholesterol [Mass/Vol] 152 mg/dL Normal <=200 [facility] Comment on above: Performed By: #### L IPID, CMP ####[facility] [address]lykmxbj1866 [place], [place] [address]Rs. Heidi Zhang Cholesterol in HDL [Mass/Vol] 43 mg/dL Normal 40-60 [facility] Comment on above: Performed By: #### L IPID, CMP ####[facility] Ztrqwnzqqb9731 [place], [place] [address]Cl. Heidi Zhang Cholesterol in LDL [Mass/Vol] 75.4 mg/dL Normal [facility] Comment on above: Performed By: #### L IPID, CMP ####[facility] Zajnaopexm1029 [place], [place] [address]Vw. Heidi Zhang Cholesterol.total/Ch olesterol in HDL [Mass ratio] 3.5 {ratio} Normal [facility] Comment on above: Performed By: #### L IPID, CMP ####[facility] Cykqpugqxb68[address] [place] [id number]. Heidi Zhang HDL NORMAL > or = 60 mg/dl - LOW CARDIOVASCULAR RISK <40 mg/dl - HIGH CARDIOVASCULAR RISK Normal [facility] Comment on above: Performed By: #### L IPID, CMP ####[facility] [address]uhxql[address] [place] [address]Dr. Heidi Zhang LDL CALC NORMAL SEE BELOW Normal [facility] Comment on above: Result Comment: <100 mg/dl OPTIMAL 100 - 129 mg/dl NEAR OR ABOVE OPTIMAL 130 - 159 mg/dl BORDERLINE HIGH 160 - 189 mg/dl HIGH >190 mg/dl VERY HIGH Performed By: #### L IPID, CMP ####[facility] [address]dss[address] [place] [address]Dr. Heidi Zhang Triglyceride [Mass/Vol] 168 mg/dL Critically high <=150 [facility] Comment on above: Performed By: #### L IPID, CMP ####[facility] Fewn[address]xnbf48[address] [place] [address]DrRenee Zhang VLDL CALC 33.6 mg/dL Normal [facility] Comment on above: Performed By: #### L IPID, CMP ####[facility] Bbfqnuaozg6[address] [place] [address]DrRenee Zhang PROF 14(COMP METB)on 023 Albumin [Mass/Vol] 4.0 g/dL Normal 3.4-5.0 [facility] Comment on above: Performed By: #### L IPID, CMP #### [facility] [address] [address] [address] Heidi Zhang Albumin/Globulin [Mass ratio] 1.4 {ratio} Normal [facility] Comment on above: Performed By: #### L IPID, CMP #### [facility] [address] [address] [address] Heidi Zhang ALP [Catalytic activity/Vol] 75 U/L Normal 46-116 [facility] Comment on above: Performed By: #### L IPID, CMP #### [facility] [address] [address] [address] Heidi Zhang ALT [Catalytic activity/Vol] 29 U/L Normal 16-63 [facility] Comment on above: Performed By: #### L IPID, CMP #### [facility] [address] [address] [address] Heidi Zhang Anion gap [Moles/Vol] 12.1 mmol/L Normal [facility] Comment on above: Performed By: #### L IPID, CMP #### [facility] [address] [address] [address] Heidi Zhang AST [Catalytic activity/Vol] 28 U/L Normal 15-37 [facility] Comment on above: Performed By: #### L IPID, CMP #### [facility] [address] [place] [address] Dr. Heidi Zhang Bilirubin [Mass/Vol] 0.4 mg/dL Normal 0.2-1.0 [facility] Comment on above: Performed By: #### L IPID, CMP #### [facility] [address] [address] [address] Heidi Zhang Calcium [Mass/Vol] 9.4 mg/dL Normal 8.5-10.1 [facility] Comment on above: Performed By: #### L IPID, CMP #### [facility] [address] [place] [address] Dr. Heidi Zhang Chloride [Moles/Vol] 99 mmol/L Normal 98-107 [facility] Comment on above: Performed By: #### L IPID, CMP #### [facility] [address] [address] [address] Heidi Zhang CO2 [Moles/Vol] 28.1 mmol/L Normal 21.0-32.0 [facility] Comment on above: Performed By: #### L IPID, CMP #### [facility] [address] [address] [address] Heidi Zhang Creatinine [Mass/Vol] 1.09 mg/dL Normal 0.70-1.30 [facility] Comment on above: Performed By: #### L IPID, CMP #### [facility] [address] [place] [address] [address] Heidi Zhang EGFR-AF BURUNDIAN >60 Normal >=60 [facility] Comment on above: Performed By: #### L IPID, CMP #### [facility] [address] [address] [address] Heidi Zhang EGFR-NON AF BURUNDIAN >60 Normal >=60 [facility] Comment on above: Performed By: #### L IPID, CMP #### [facility] [address] [address] [address] Heidi Zhang Globulin (S) [Mass/Vol] 2.9 g/dL Normal [facility] Comment on above: Performed By: #### L IPID, CMP #### [facility] [address] [address] [address] Heidi Zhang Glucose [Mass/Vol] 428 mg/dL Critically high 74-106 T [facility] Comment on above: Performed By: #### L IPID, CMP #### [facility] [address] [address] [address] eHidi Zhang Potassium [Moles/Vol] 5.2 mmol/L Critically high 3.5-5.1 [facility] Comment on above: Performed By: #### L IPID, CMP #### [facility] [address] [address] [address] Heidi Zhang Protein [Mass/Vol] 6.9 g/dL Normal 6.4-8.2 [facility] Comment on above: Performed By: #### L IPID, CMP #### [facility] [address] [address] [address] Heidi Zhang Sodium [Moles/Vol] 134 mmol/L Critically low 136-145 [facility] Comment on above: Performed By: #### L IPID, CMP #### [facility] [address] [address] [address] Heidi Zhang Urea nitrogen [Mass/Vol] 11.0 mg/dL Normal 7.0-18.0 [facility] Comment on above: Performed By: #### L IPID, CMP #### [facility] [address] [address] [address] Heidi Zhang Urea nitrogen/Creatinine [Mass ratio] 10.1 mg/mg Normal [facility] Comment on above: Performed By: #### L IPID, CMP #### [facility] [address] [address] [address] Heidi Zhang XR CHEST 2 Von [...] JONAH GARCIA Date: 2022-10-13 16:09 Normal [facility] PROF CHEM 8 (BAS METB)on Anion gap [Moles/Vol] 12.5 mmol/L Normal [facility] Comment on above: Performed By: #### B MP #### [facility] [address] [address] [address] Heidi Zhang Calcium [Mass/Vol] 9.1 mg/dL Normal 8.5-10.1 [facility] Comment on above: Performed By: #### B MP #### [facility] [address] [address] [address] Heidi Zhang Chloride [Moles/Vol] 99 mmol/L Normal 98-107 [facility] Comment on above: Performed By: #### B MP #### [facility] [address] [address] [address] Heidi Zhang CO2 [Moles/Vol] 26.1 mmol/L Normal 21.0-32.0 [facility] Comment on above: Performed By: #### B MP #### [facility] [address] [address] [address] Heidi Zhang Creatinine [Mass/Vol] 1.00 mg/dL Normal 0.70-1.30 [facility] Comment on above: Performed By: #### B MP #### [facility] [address] [place] [address] Dr. Heidi Zhang EGFR-AF BURUNDIAN >60 Normal >=60 [facility] Comment on above: Performed By: #### B MP #### [facility] [address] [place] [address] Dr. Heidi Zhang EGFR-NON AF BURUNDIAN >60 Normal >=60 [facility] Comment on above: Performed By: #### B MP #### [facility] [address] [place] [address] Dr. Heidi Zhang Glucose [Mass/Vol] 285 mg/dL Critically high 74-106 T [facility] Comment on above: Performed By: #### B MP #### [facility] [address] [place] [address] Dr. Heidi Zhang Potassium [Moles/Vol] 4.6 mmol/L Normal 3.5-5.1 [facility] Comment on above: Performed By: #### B MP #### [facility] [address] [place] [address] Dr. Heidi Zhang Sodium [Moles/Vol] 133 mmol/L Critically low 136-145 Th [facility] Comment on above: Performed By: #### B MP #### [facility] [address] [place] [address] Dr. Heidi Zhang Urea nitrogen [Mass/Vol] 16.0 mg/dL Normal 7.0-18.0 [facility] Comment on above: Performed By: #### B MP #### [facility] [address] [place] [address] Dr. Heidi Zhang Urea nitrogen/Creatinine [Mass ratio] 16.0 mg/mg Normal [facility] Comment on above: Performed By: #### B MP #### [facility] [address] [place] [address] Dr. Heidi Zhang CBC AUTO DIFFon 08-11-2022 BASO # 0.1 103/ul Normal 0.0-0.1 [facility] Comment on above: Performed By: #### C BC ####[facility] [address] [place], [place] [address]Dr. Heidi Vicente Basophils/100 WBC (Bld) 0.6 % Normal 0.2-2.0 [facility] Comment on above: Performed By: #### C BC ####[facility] [address] [place], [place] [address]Dr. Heidi Zhang EO # 0.4 103/ul Normal 0.0-0.7 [facility] Comment on above: Performed By: #### C BC ####[facility] [address] [place], [place] [address]Dr. Heidi Zhang Eosinophils/100 WBC (Bld) 4.4 % Normal 0.9-7.0 [facility] Comment on above: Performed By: #### C BC ####[facility] [address] [place], [place] [address]Dr. Nevaehrachel Zhang Erythrocyte distribution width (RBC) [Ratio] 11.9 % Normal 11.0-15.0 [facility] Comment on above: Performed By: #### C BC ####[facility] [address] [place], [place] [address]Dr. Heidi Vicente Hematocrit (Bld) [Volume fraction] 44.8 % Normal 42.0-54.0 [facility] Comment on above: Performed By: #### C BC ####[facility] [address] [place], [place] [address]Dr. Heidi Vicente Hemoglobin (Bld) [Mass/Vol] 15.2 g/dL Normal 14.0-18.0 [facility] Comment on above: Performed By: #### C BC ####[facility] [address] [place], [place] [address]Dr. Heidi Zhang IG # 0.04 10e3/ul Critically high 0.00-0.03 [facility] Comment on above: Performed By: #### C BC ####[facility] [address] [place], [place] [address]DrRenee Zhang IG % 0.4 % Normal 0.0-0.5 [facility] Comment on above: Performed By: #### C BC ####[facility] [address] [place] [address]DrRenee Zhang LYMPH # 1.7 103/ul Normal 1.2-3.8 [facility] Comment on above: Performed By: #### C BC ####[facility] [address]quycbw6[address] [place] [address]DrRenee Zhang Lymphocytes/100 WBC (Bld) 16.6 % Critically low 20.5-60.0 [facility] Comment on above: Performed By: #### C BC ####[facility] [address] [place], [place] [address]DrRenee Zhang MANUAL DIFF REQ NO Normal [facility] Comment on above: Performed By: #### C BC ####[facility] [address] [place], [place] [address]DrRenee Zhang MCH (RBC) [Entitic mass] 31.1 pg Normal 25.9-34.0 [facility] Comment on above: Performed By: #### C BC ####[facility] [address]sc[address] [place], [place] [address]DrRenee Zhang MCHC (RBC) [Mass/Vol] 33.9 g/dL Normal 29.9-35.2 [facility] Comment on above: Performed By: #### C BC ####[facility] [address] [place], [place] [address]DrRenee Zhang MCV (RBC) [Entitic vol] 91.8 fL Normal 80.0-94.0 [facility] Comment on above: Performed By: #### C BC ####[facility] [address] [place], [place] [id number] Zhang MONO # 0.9 103/ul Critically high 0.3-0.8 [facility] Comment on above: Performed By: #### C BC ####[facility] [address]ffsiqgo[address] [place] [address]DrRenee Zhang Monocytes/100 WBC (Bld) 8.7 % Normal 1.7-12.0 [facility] Comment on above: Performed By: #### C BC ####[facility] [address]ynhcde[address] [place] [address]Dr. Heidi Zhang NEUT # 6.9 103/ul Critically high 1.4-6.5 [facility] Comment on above: Performed By: #### C BC ####[facility] [address]wbcj[address] [place] [address]Dr. Heidi Zhang Neutrophils/100 WBC (Bld) 69.3 % Normal 43.0-75.0 [facility] Comment on above: Performed By: #### C BC ####[facility] [address] [place] [address]Dr. Heidi Zhang Platelet mean volume (Bld) [Entitic vol] 9.9 fL Normal 9.5-13.5 [facility] Comment on above: Performed By: #### C BC ####[facility] [address] [place] [address]Dr. Heidi Zhang PLT 153 103/ul Normal 150-450 [facility] Comment on above: Performed By: #### C BC ####[facility] [address]ft[address] [place] [address]Dr. Heidi Zhang RBC 4.88 106/ul Normal 4.70-6.10 [facility] Comment on above: Performed By: #### C BC ####[facility] [address]zyot[address] [place] [address]Dr. Heidi Zhang WBC 10.0 103/ul Normal 4.0-11.0 [facility] Comment on above: Performed By: #### C BC ####[facility] [address] [place] [id number]. Heidi Zhang GLYCOHEMOGLOBIN A1Con 2021 ADA RECOMMENDATION SEE BELOW Normal [facility] Comment on above: Result Comment: ADA RECOMMENDED LIMIT 4.0 - 6.0 ADA THERAPEUTIC TARGET < 7.0 ACTION SUGGESTED > 7.0 Performed By: #### A 1C #### [facility] [address] [address] [address] Heidi Zhang Glucose [Mass/Vol] 166 mg/dL Normal [facility] Comment on above: Performed By: #### A 1C #### [facility] [address] [address] [address] Heidi Zhang HbA1c (Bld) [Mass fraction] 7.4 % Critically high 4.5-6.2 [facility] Comment on above: Performed By: #### A 1C #### [facility] [address] [address] [address] Heidi Zhang LIPID PROFILEon 08-11-2022 CHOL-HDL RATIO NORM SEE BELOW Normal [facility] Comment on above: Result Comment: 3.3 - 4.4 LOW RISK 4.4 - 7.1 AVERAGE RISK 7.1 - 11.0 MODERATE RISK >11.0 HIGH RISK Performed By: #### B MP, LIPID ####[facility] Ngztcwcljx25[address] [place] [id number] Zhang Cholesterol [Mass/Vol] 127 mg/dL Normal <=200 [facility] Comment on above: Performed By: #### B MP, LIPID ####[facility] Xwwmy[address]hnl67[address] [place] [id number] Zhang Cholesterol in HDL [Mass/Vol] 41 mg/dL Normal 40-60 [facility] Comment on above: Performed By: #### B MP, LIPID ####[facility] Ndvchscvic1514 [place] [id number] Zhang Cholesterol in LDL [Mass/Vol] 55.2 mg/dL Normal [facility] Comment on above: Performed By: #### B MP, LIPID ####[facility] J[address]okbiqcok9850 [place], [place] [address]Od. Heidi Zhang Cholesterol.total/Ch olesterol in HDL [Mass ratio] 3.1 {ratio} Normal [facility] Comment on above: Performed By: #### B MP, LIPID ####[facility] Ijjyzywqum99[address] [place], [place] [address]HyRenee Zhang HDL NORMAL > or = 60 mg/dl - LOW CARDIOVASCULAR RISK <40 mg/dl - HIGH CARDIOVASCULAR RISK Normal [facility] Comment on above: Performed By: #### B MP, LIPID ####[facility] [address]se[address] [place] [address]Dr. Heidi Zhang LDL CALC NORMAL SEE BELOW Normal [facility] Comment on above: Result Comment: <100 mg/dl OPTIMAL 100 - 129 mg/dl NEAR OR ABOVE OPTIMAL 130 - 159 mg/dl BORDERLINE HIGH 160 - 189 mg/dl HIGH >190 mg/dl VERY HIGH Performed By: #### B MP, LIPID ####[facility] [address]ebphyn[address] [place] [address]Dr. Heidi Zhang Triglyceride [Mass/Vol] 154 mg/dL Critically high <=150 [facility] Comment on above: Performed By: #### B MP, LIPID ####[facility] [address]ssjqrll[address] [place] [address]Dr. Heidi Zhang VLDL CALC 30.8 mg/dL Normal [facility] Comment on above: Performed By: #### B MP, LIPID ####[facility] [address]um[address]zty[address] [place] [address]Dr. Heidi Zhang PROF CHEM 8 (BAS METB)on Anion gap [Moles/Vol] 10.1 mmol/L Normal [facility] Comment on above: Performed By: #### B MP, LIPID ####[facility] Tgxzganxqh[address] [place] [address]Dr. Heidi Zhang Calcium [Mass/Vol] 9.2 mg/dL Normal 8.5-10.1 [facility] Comment on above: Performed By: #### B MP, LIPID ####[facility] Gskmqpodtu[address] [place] [address]Dr. Heidi Zhang Chloride [Moles/Vol] 95 mmol/L Critically low 98-107 [facility] Comment on above: Performed By: #### B MP, LIPID ####[facility] [address]jjxtmfc[address] [place] [address]Dr. Heidi Zhang CO2 [Moles/Vol] 28.9 mmol/L Normal 21.0-32.0 [facility] Comment on above: Performed By: #### B MP, LIPID ####[facility] [address]rbzcfwaio[address] [place] [id number]. Heidi Zhang Creatinine [Mass/Vol] 0.92 mg/dL Normal 0.70-1.30 [facility] Comment on above: Performed By: #### B MP, LIPID ####[facility] [address]zl[address] [place] [address]Dr. Heidi Zhang EGFR-AF BURUNDIAN >60 Normal >=60 [facility] Comment on above: Performed By: #### B MP, LIPID ####[facility] [address]wnpywmi[address] [place] [address]Dr. Heidi Zhang EGFR-NON AF BURUNDIAN >60 Normal >=60 [facility] Comment on above: Performed By: #### B MP, LIPID ####[facility] [address]zyfnyz24[address] [place] [address]Dr. Heidi Zhang Glucose [Mass/Vol] 172 mg/dL Critically high 74-106 T [facility] Comment on above: Performed By: #### B MP, LIPID ####[facility] [address]bsyeijim4[address] [place] [address]Dr. Heidi Zhang Potassium [Moles/Vol] 5.0 mmol/L Normal 3.5-5.1 [facility] Comment on above: Performed By: #### B MP, LIPID ####[facility] [address]xmhtheprw38[address] [place] [address]Dr. Heidi Zhang Sodium [Moles/Vol] 129 mmol/L Critically low 136-145 Th [facility] Comment on above: Performed By: #### B MP, LIPID ####[facility] [address]udqwvr5[address] [place] [id number]. Heidi Zhang Urea nitrogen [Mass/Vol] 14.0 mg/dL Normal 7.0-18.0 [facility] Comment on above: Performed By: #### B MP, LIPID ####[facility] Sfvihgalmr[address] [place] [id number]. Heidi Zhang Urea nitrogen/Creatinine [Mass ratio] 15.2 mg/mg Normal [facility] Comment on above: Performed By: #### B MP, LIPID ####[facility] Xufvdwphxm3168 [place], [place] [address]RdDr. Heidi Zhang US LADI DOP LEG RTon [...] KAY SOMMER Date: 2022-04-28 21:51 Normal [facility] GLYCOHEMOGLOBIN A1Con 2021 ADA RECOMMENDATION SEE BELOW Normal [facility] Comment on above: Result Comment: ADA RECOMMENDED LIMIT 4.0 - 6.0 ADA THERAPEUTIC TARGET < 7.0 ACTION SUGGESTED > 7.0 Performed By: #### A 1C #### [facility] [address] [address] [address] Heidi Zhang Glucose [Mass/Vol] 154 mg/dL Normal [facility] Comment on above: Performed By: #### A 1C #### [facility] [address] [address] [address] Heidi Zhang HbA1c (Bld) [Mass fraction] 7.0 % Critically high 4.5-6.2 [facility] Comment on above: Performed By: #### A 1C #### [facility] [address] [address] [address] Heidi Zhang LIPID PROFILEon 03-31-2022 CHOL-HDL RATIO NORM SEE BELOW Normal [facility] Comment on above: Result Comment: 3.3 - 4.4 LOW RISK 4.4 - 7.1 AVERAGE RISK 7.1 - 11.0 MODERATE RISK >11.0 HIGH RISK Performed By: #### L IPID #### [facility] [address] [address] [address] Heidi Zhang Cholesterol [Mass/Vol] 126 mg/dL Normal <=200 [facility] Comment on above: Performed By: #### L IPID #### [facility] [address] [address] [address] Heidi Zhang Cholesterol in HDL [Mass/Vol] 37 mg/dL Critically low 40-60 [facility] Comment on above: Performed By: #### L IPID #### [facility] [address] [address] [address] Heidi Zhang Cholesterol in LDL [Mass/Vol] 37.4 mg/dL Normal [facility] Comment on above: Performed By: #### L IPID #### [facility] [address] [address] [address] Heidi Zhang Cholesterol.total/Ch olesterol in HDL [Mass ratio] 3.4 {ratio} Normal [facility] Comment on above: Performed By: #### L IPID #### [facility] [address] [address] [address] Heidi Zhang HDL NORMAL > or = 60 mg/dl - LOW CARDIOVASCULAR RISK <40 mg/dl - HIGH CARDIOVASCULAR RISK Normal [facility] Comment on above: Performed By: #### L IPID #### [facility] [address] [address] [address] Heidi Zhang LDL CALC NORMAL SEE BELOW Normal [facility] Comment on above: Result Comment: <100 mg/dl OPTIMAL 100 - 129 mg/dl NEAR OR ABOVE OPTIMAL 130 - 159 mg/dl BORDERLINE HIGH 160 - 189 mg/dl HIGH >190 mg/dl VERY HIGH Performed By: #### L IPID #### [facility] [address] [address] [address] Heidi Zhang Triglyceride [Mass/Vol] 258 mg/dL Critically high <=150 [facility] Comment on above: Performed By: #### L IPID #### [facility] [address] [address] [address] Heidi Zhang VLDL CALC 51.6 mg/dL Normal [facility] Comment on above: Performed By: #### L IPID #### [facility] [id number] Heidi Zhang CT TEMP BONES WO [facility]CON[facility] Vital Signs Date Time Vital Sign Value Performing Clinician Facility 12-15-2024 16:18-0500 Body height 193 cm Grant Sheth DPM Work Phone: [facility] 12-15-2024 16:18-0500 Body mass index (BMI) [Ratio] 35.67 kg/m2 Grant Sheth DPM Work Phone: [facility] 12-15-2024 16:18-0500 Body weight 132.9 kg Grant Sheth DPM Work Phone: [facility] 12-15-2024 16:18-0500 Respiratory rate 18 /min Grant Sheth DPM Work Phone: [facility] 12-08-2024 13:42-0500 Body height 193 cm Daria Noel SWIFT TENDER Work Phone: [facility] 12-08-2024 13:42-0500 Body mass index (BMI) [Ratio] 35.67 kg/m2 Daria Noel SWIFT TENDER Work Phone: [facility] 12-08-2024 13:42-0500 Body temperature 98.2 [degF] Daria Noel SWIFT TENDER Work Phone: [facility] 12-08-2024 13:42-0500 Body weight 132.9 kg Daria Noel SWIFT TENDER Work Phone: [facility] Comment on above: winter coat on 12-08-2024 13:42-0500 Diastolic blood pressure 68 mm[Hg] Daria Noel SWIFT TENDER Work Phone: [facility] 12-08-2024 13:42-0500 Heart rate 113 /min Daria Noel SWIFT TENDER Work Phone: [facility] 12-08-2024 13:42-0500 Respiratory rate 16 /min Daria Noel SWIFT TENDER Work Phone: [facility] 12-08-2024 13:42-0500 SaO2% (BldA) [Mass fraction] 99 % Daria Noel SWIFT TENDER Work Phone: [facility] 12-08-2024 13:42-0500 Systolic blood pressure 136 mm[Hg] Daria Noel SWIFT TENDER Work Phone: [facility] 11-16-2024 09:50-0500 Body mass index (BMI) [Ratio] 37.08 kg/m2 Daria Noel SWIFT TENDER Work Phone: [facility] 11-16-2024 09:50-0500 Body temperature 98.1 [degF] Daria Noel SWIFT TENDER Work Phone: [facility] 11-16-2024 09:50-0500 Body weight 138.17 kg Daria Noel SWIFT TENDER Work Phone: [facility] Comment on above: with winter coat on 11-16-2024 09:50-0500 Diastolic blood pressure 86 mm[Hg] Daria Noel SWIFT TENDER Work Phone: [facility] 11-16-2024 09:50-0500 Heart rate 83 /min Daria Noel SWIFT TENDER Work Phone: [facility] 11-16-2024 09:50-0500 Respiratory rate 22 /min Daria Noel SWIFT TENDER Work Phone: [facility] 11-16-2024 09:50-0500 SaO2% (BldA) [Mass fraction] 92 % Daria Noel SWIFT TENDER Work Phone: [facility] 11-16-2024 09:50-0500 Systolic blood pressure 122 mm[Hg] Daria Noel SWIFT TENDER Work Phone: [facility] 09-08-2024 15:32-0500 Body height 193 cm Daria Noel SWIFT TENDER Work Phone: [facility] 09-08-2024 15:32-0500 Body mass index (BMI) [Ratio] 37.25 kg/m2 Daria Noel SWIFT TENDER Work Phone: [facility] 09-08-2024 15:32-0500 Body temperature 96.1 [degF] Daria Noel SWIFT TENDER Work Phone: [facility] 09-08-2024 15:32-0500 Body weight 138.8 kg Daria Noel SWIFT TENDER Work Phone: [facility] 09-08-2024 15:32-0500 Diastolic blood pressure 70 mm[Hg] Daria Noel SWIFT TENDER Work Phone: [facility] 09-08-2024 15:32-0500 Heart rate 76 /min Daria Noel SWIFT TENDER Work Phone: [facility] 09-08-2024 15:32-0500 Respiratory rate 18 /min Daria Noel SWIFT TENDER Work Phone: [facility] 09-08-2024 15:32-0500 SaO2% (BldA) [Mass fraction] 99 % Daria Noel SWIFT TENDER Work Phone: [facility] 09-08-2024 15:32-0500 Systolic blood pressure 112 mm[Hg] Daria Noel SWIFT TENDER Work Phone: [facility] 09-08-2024 09:26-0500 Body height 193 cm Grant AMEZQUITAM Work Phone: [facility] 09-08-2024 09:26-0500 Body mass index (BMI) [Ratio] 37.61 kg/m2 Grant Sheth DPM Work Phone: [facility] 09-08-2024 09:26-0500 Body weight 140.16 kg Grant Sheth DPM Work Phone: [facility] 09-08-2024 09:26-0500 Respiratory rate 18 /min Grant Sheth DPM Work Phone: [facility] 08-02-2024 15:01-0400 Body height 193 cm Daria Noel SWIFT TENDER Work Phone: [facility] 08-02-2024 15:01-0400 Body mass index (BMI) [Ratio] 37.61 kg/m2 Daria Noel SWIFT TENDER Work Phone: [facility] 08-02-2024 15:01-0400 Body temperature 98.1 [degF] Daria Noel SWIFT TENDER Work Phone: [facility] 08-02-2024 15:01-0400 Body weight 140.16 kg Daria Noel SWIFT TENDER Work Phone: [facility] 08-02-2024 15:01-0400 Diastolic blood pressure 80 mm[Hg] Daria Noel SWIFT TENDER Work Phone: [facility] 08-02-2024 15:01-0400 Heart rate 104 /min Daria Noel SWIFT TENDER Work Phone: [facility] 08-02-2024 15:01-0400 Respiratory rate 20 /min Daria Noel SWIFT TENDER Work Phone: [facility] 08-02-2024 15:01-0400 SaO2% (BldA) [Mass fraction] 100 % Daria Noel SWIFT TENDER Work Phone: [facility] 08-02-2024 15:01-0400 Systolic blood pressure 118 mm[Hg] Daria Noel SWIFT TENDER Work Phone: [facility] 07-22-2024 10:13-0400 Body height 193 cm Carmen William MD Work Phone: [facility] 07-22-2024 10:13-0400 Body mass index (BMI) [Ratio] 39.32 kg/m2 Carmen William MD Work Phone: [facility] 07-22-2024 10:13-0400 Body weight 146.51 kg Carmen William MD Work Phone: [facility] 06-22-2024 13:57-0400 Body height 193 cm Daria Noel SWIFT TENDER Work Phone: [facility] 06-22-2024 13:57-0400 Body mass index (BMI) [Ratio] 39.32 kg/m2 Daria Noel SWIFT TENDER Work Phone: [facility] 06-22-2024 13:57-0400 Body temperature 98.2 [degF] Daria Noel SWIFT TENDER Work Phone: [facility] 06-22-2024 13:57-0400 Body weight 146.51 kg Daria Noel SWIFT TENDER Work Phone: [facility] 06-22-2024 13:57-0400 Diastolic blood pressure 80 mm[Hg] Daria Noel SWIFT TENDER Work Phone: [facility] 06-22-2024 13:57-0400 Heart rate 96 /min Daria Noel SWIFT TENDER Work Phone: [facility] Comment on above: 98% O2 06-22-2024 13:57-0400 Systolic blood pressure 130 mm[Hg] Daria Noel SWIFT TENDER Work Phone: [facility] 06-16-2024 13:53-0400 Body height 193 cm Grant Sheth DPM Work Phone: [facility] 06-16-2024 13:53-0400 Body mass index (BMI) [Ratio] 42.12 kg/m2 Grant Shaan DPM Work Phone: [facility] 06-16-2024 13:53-0400 Body weight 156.94 kg Grant Sheth DPM Work Phone: [facility] 06-16-2024 13:53-0400 Diastolic blood pressure 77 mm[Hg] Grant Sheth DPM Work Phone: [facility] 06-16-2024 13:53-0400 Heart rate 82 /min Grant Sheth DPM Work Phone: [facility] 06-16-2024 13:53-0400 Systolic blood pressure 128 mm[Hg] Grant Sheth DPM Work Phone: [facility] 12-03-2023 10:51-0500 Body height 193 cm Grant Sheth DPM Work Phone: [facility] 12-03-2023 10:51-0500 Body mass index (BMI) [Ratio] 37.98 kg/m2 Grant Sheth DPM Work Phone: [facility] 12-03-2023 10:51-0500 Body weight 141.52 kg Grant Sheth DPM Work Phone: [facility] 12-03-2023 10:51-0500 Diastolic blood pressure 85 mm[Hg] Grant Shaan DPM Work Phone: [facility] 12-03-2023 10:51-0500 Heart rate 81 /min Grant Sheth DPM Work Phone: [facility] 12-03-2023 10:51-0500 Systolic blood pressure 133 mm[Hg] Grant Shaan DPM Work Phone: [facility] 03-25-2023 14:00-0400 Body height 193.04 cm Agustin Nj Other [employer] Other 03-25-2023 14:00-0400 Body mass index (BMI) [Ratio] 38.95 kg/m2 Agustin Adancassidy Other [employer] Other 03-25-2023 14:00-0400 Body temperature 97.6 [degF] Agustin Adanban Other [employer] Other 03-25-2023 14:00-0400 Body weight 145.15 kg Agustin Adancassidy Other [employer] Other 03-25-2023 14:00-0400 Diastolic blood pressure 84 mm[Hg] Agustin Clem Other [employer] Other 03-25-2023 14:00-0400 Respiratory rate 20 /min Agustin Adancassidy Other [employer] Other 03-25-2023 14:00-0400 SaO2% (BldA) [Mass fraction] 96 % Agustin Adancassidy Other [employer] Other 03-25-2023 14:00-0400 Systolic blood pressure 132 mm[Hg] Agustin Adancassidy Other [employer] Other 10-31-2022 09:13-0500 Body temperature 98.2 [degF] Nicholas Jenkins MD Work Phone: [facility] 08-28-2021 10:30-0500 Body height 193.04 cm Agustin Adancassidy Other [employer] Other 08-28-2021 10:30-0500 Body mass index (BMI) [Ratio] 39.68 kg/m2 Agustin Clem Other [employer] Other 08-28-2021 10:30-0500 Body temperature 98.4 [degF] Agustin Nj Other [employer] Other 08-28-2021 10:30-0500 Body weight 147.87 kg Agustin Nj Other [employer] Other 08-28-2021 10:30-0500 Diastolic blood pressure 92 mm[Hg] Agustin Nj Other [employer] Other 08-28-2021 10:30-0500 Respiratory rate 20 /min Agustin Nj Other [employer] Other 08-28-2021 10:30-0500 SaO2% (BldA) [Mass fraction] 97 % Agustin Nj Other [employer] Other 08-28-2021 10:30-0500 Systolic blood pressure 160 mm[Hg] Agustin Nj Other [employer] Other Encounters Encounter Date Encounter Type Care Provider Facility Start: 01-11-2025 End: 01-11-2025 Orders Only Regan Ortega MD Work Phone: [facility] Comment on above: Lumbar spondylosis; Acute pain of right shoulder; Knee pain, unspecified chronicity, unspecified laterality; Medication refill Start: 12-30-2024 End: 12-30-2024 Orders Only Syed Ramirez PA-C Work Phone: [facility] Comment on above: Pain (Primary Dx) Start: 12-22-2024 End: 12-22-2024 ambulatory DERRICK BARNETT [facility] Start: 12-22-2024 End: 12-22-2024 ambulatory DERRICK BARNETT [facility] Start: 12-22-2024 ambulatory DERRICK Mcknight [facility] Start: 12-22-2024 End: 12-22-2024 ambulatory DERRICK BARNETT [facility] Start: 12-22-2024 End: 12-22-2024 ambulatory DERRICK BARNETT [facility] Start: 12-15-2024 End: 12-15-2024 Patient encounter [...] 12-08-2024 End: 12-08-2024 Bamboo flowsheet Daria Noel SWIFT TENDER Work Phone: [facility] Start: 12-08-2024 End: 12-08-2024 Bamboo flowsheet Daria Noel SWIFT TENDER Work Phone: [facility] Start: 12-08-2024 End: 12-08-2024 Office outpatient visit 15 minutes Daria Noel SWIFT TENDER Work Phone: [facility] Comment on [...] End: 12-07-2024 Clinisync Result Encounter Daria Noel SWIFT TENDER Work Phone: [facility] Unsolicited Start: 12-07-2024 End: 12-07-2024 Clinisync Result Encounter Daria Noel SWIFT TENDER Work Phone: [facility] Unsolicited Start: [...] Start: 11-24-2024 End: 11-24-2024 Refill Daria Noel SWIFT TENDER Work Phone: [facility] Comment on above: Essential (primary) hypertension (CMS/HCC); Anxiety disorder, unspecified Start: 11-16-2024 End: 11-16-2024 Bamboo flowsheet Daria Noel SWIFT TENDER Work Phone: [facility] Start: 11-16-2024 End: 11-16-2024 Bamboo flowsheet Daria Noel SWIFT TENDER Work Phone: [facility] Start: 11-16-2024 End: 11-16-2024 Office outpatient visit 10 minutes Daria Noel SWIFT TENDER Work Phone: [facility] Comment on [...] Start: 11-09-2024 End: 11-09-2024 Refill Daria Noel SWIFT TENDER Work Phone: [facility] Comment on above: Essential (primary) hypertension (CMS/HCC); Anxiety disorder, unspecified Start: 10-24-2024 End: 10-24-2024 Orders Only Daria Noel SWIFT TENDER Work Phone: [facility] Comment on above: Mixed hyperlipidemia (CMS/HCC) Hyperlipidemia, unsp ecified hyperlipidemia type (CMS/HCC); Essential hypertension (CMS/HCC); Type 2 diabetes mellitus with diabetic neuropathy, without long-term current use of insulin (CMS/HCC) Start: 10-04-2024 End: 10-04-2024 Refill Daria Noel SWIFT TENDER Work Phone: [facility] Comment on above: Lumbar spondylosis; Acute pain of right shoulder; Knee pain, unspecified chronicity, unspecified laterality Start: 09-30-2024 End: 09-30-2024 ambulatory [facility] Start: 09-12-2024 End: 09-12-2024 ambulatory [facility] Start: 09-08-2024 End: 09-08-2024 Office outpatient visit 15 minutes Daria Noel SWIFT TENDER Work Phone: [facility] Comment on above: Need for immunizatio n against influenza (Primary Dx); Type 2 diabetes mellitus with diabetic neuropathy, without long-term current use of insulin (CMS/HCC); Essential (primary) hypertension ([facility]); COPD with exacerbation ([facility]); Mixed hyperlipidemia ([facility]); Lumbar spondylosis; Acute pain of right [...] polyneuropathy, with long-term current use of insulin ([facility]) (Primary Dx); Onychomycosis; Toe pain, left Start: 09-08-2024 End: 09-08-2024 ambulatory GRANT SHETH Not Available Start: 09-06-2024 End: 09-06-2024 Telephone encounter Shirley Vargas RECRUITING MANAGER [facility] Comment on above: re: Remaining PT (He called and lm to note that he is going to be stopping the OP PT and partake working out at gym in [place]. He said has a friend that will work with him w/ certain exercises to benefit from. He also said the copay is adding up and feels he can cont on w/ supervision at the gym.) Start: 08-31-2024 End: 08-31-2024 Refill Daria Noel SWIFT TENDER Work Phone: [facility] Comment on above: Acute upper respirat ory infection, unspecified Start: 08-30-2024 End: 08-30-2024 Telephone encounter Abbi Delgado RECRUITING MANAGER [facility] Comment on above: Cx PT today (He call ed noting not feeling well and unable to make PT today. I reminded and he confirmed 09/01.) Start: 08-24-2024 End: 08-24-2024 ambulatory Abbi Delgado RECRUITING MANAGER [facility] Comment on above: Frequent falls; S/P total knee arthroplasty, right; Primary localized osteoarthrosis of multiple sites; Presence of left artificial knee joint; Localized osteoarthritis of right knee Start: 08-24-2024 End: 08-24-2024 Bamboo flowsheet Abbi Delgado RECRUITING MANAGER [facility] Start: 08-24-2024 End: 08-24-2024 Bamboo flowsheet Abbi Delgado RECRUITING MANAGER [facility] Start: 08-19-2024 End: 08-20-2024 Clinisync Result Encounter Daria Noel SWIFT TENDER Work Phone: [facility] Unsolicited Start: 08-19-2024 End: 08-20-2024 Clinisync Result Encounter Daria Noel SWIFT TENDER Work Phone: [facility] Unsolicited Start: [...] 08-11-2024 End: 08-11-2024 Orders Only Daria Noel SWIFT TENDER Work Phone: [facility] Comment on above: Type 2 diabetes rayray itus with diabetic neuropathy, without long-term current use of insulin ([facility]) (Primary Dx) Anemia, unspecified type (Primary [...] End: 08-04-2024 Clinisync Result Encounter Daria Noel SWIFT TENDER Work Phone: [facility] Unsolicited Start: 08-04-2024 End: 08-04-2024 Clinisync Result Encounter Daria Noel SWIFT TENDER Work Phone: [facility] Unsolicited Start: 08-03-2024 End: 08-03-2024 Refill Daria Noel SWIFT TENDER Work Phone: [facility] Comment on above: Mixed hyperlipidemia (CMS/HCC) Start: 08-02-2024 End: 08-02-2024 Office outpatient visit 25 minutes Daria Noel SWIFT TENDER Work Phone: [facility] Comment on [...] 08-02-2024 End: 08-02-2024 Bamboo flowsheet Daria Noel SWIFT TENDER Work Phone: [facility] Start: 08-02-2024 End: 08-02-2024 Bamboo flowsheet Daria Noel SWIFT TENDER Work Phone: [facility] Start: 07-22-2024 End: 07-22-2024 Patient encounter procedure Carmen William MD Work Phone: Orthopaedics Comment on above: Prosthetic joint inf ection, sequela (Primary Dx) Start: 07-22-2024 End: 07-22-2024 ambulatory REGAN Mame ORTEGA Facility:[facility] Start: 07-22-2024 End: 07-22-2024 Subsequent hospital visit by physician [facility] Comment on above: 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, due to unspecified organism (HCC) [M00.9] Start: 07-19-2024 End: 07-19-2024 Refill Daria Noel SWIFT TENDER Work Phone: [facility] Comment on above: Acute upper respirat ory infection, unspecified Start: 07-17-2024 End: 07-18-2024 Refill Daria Noel SWIFT TENDER Work Phone: [facility] Comment on [...] Start: 07-04-2024 End: 07-04-2024 ambulatory JUSTIN Rodriguez [facility] Start: 07-04-2024 End: 07-04-2024 Subsequent hospital visit by physician Shaikh Maine WATERMAN Work Phone: [facility] Start: 06-22-2024 End: 06-22-2024 Bamboo flowsheet Daria Noel SWIFT TENDER Work Phone: [facility] Start: 06-22-2024 End: 06-22-2024 Bamboo flowsheet Daria Noel SWIFT TENDER Work Phone: [facility] Start: 06-22-2024 End: 06-22-2024 Office outpatient visit 25 minutes Daria Noel SWIFT TENDER Work Phone: [facility] Comment on [...] Start: 06-21-2024 End: 06-21-2024 Refill Daria Noel SWIFT TENDER Work Phone: [facility] Comment on [...] 06-14-2024 End: 06-14-2024 Orders Only Daria Noel SWIFT TENDER Work Phone: [facility] Comment on above: Mixed hyperlipidemia (CMS/HCC) (Primary Dx) Start: 06-13-2024 End: 06-13-2024 Clinisync Result Encounter Generic External Data Provider [facility] Unsolicited Start: 06-13-2024 End: 06-13-2024 Clinisync Result Encounter Generic External Data Provider [facility] Unsolicited Start: 06-13-2024 End: 06-13-2024 ambulatory JUSTIN Rodriguez [facility] Start: 06-07-2024 End: 06-07-2024 Refill Daria Noel SWIFT TENDER Work Phone: [facility] Start: 06-06-2024 End: 06-06-2024 Refill Daria Noel SWIFT TENDER Work Phone: [facility] Comment on above: Anxiety disorder, un specified Start: 06-02-2024 End: 06-02-2024 ambulatory Linh Cheatham DIRECTOR DENTAL SERVICES-CHART CALCULATOR Facility:[facility] Start: 05-27-2024 End: 05-27-2024 ambulatory PARTHA JACKSON Facility:[facility] Start: 05-27-2024 End: 05-27-2024 Patient encounter procedure Partha Jackson PA-C Work Phone: Otolaryngology Comment on above: 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 Start: 05-25-2024 Telephone encounter Partha de la rosa PA-C Work Phone: [facility] Comment on above: Patient Question Start: 05-24-2024 Refill Partha Dumas c PA-C Work Phone: [facility] Comment on above: Refill Request Start: 05-24-2024 [...] Start: 03-01-2024 End: 03-01-2024 ambulatory [facility] Start: 02-28-2024 End: 02-28-2024 ambulatory AMBER Rodriguez [facility] Start: 02-25-2024 End: 02-25-2024 ambulatory Linh Cheatham DIRECTOR DENTAL SERVICES-CHART CALCULATOR Facility:[facility] Start: 02-22-2024 End: 02-22-2024 ambulatory Linh Cheatham DIRECTOR DENTAL SERVICES-CHART CALCULATOR Facility:[facility] Start: 02-03-2024 End: 02-17-2024 ambulatory JOSE Stephen [facility] Start: 02-02-2024 End: 02-10-2024 Evaluation and management of inpatient Duong Maguire DO Facility:[facility] Start: 01-19-2024 End: 01-19-2024 ambulatory SHAIKH MAINE Not Available Start: 01-06-2024 End: 01-06-2024 ambulatory SHAIKH MAINE Not Available Start: 12-31-2023 End: 12-31-2023 ambulatory Johnny Cespedes MD Facility:[facility] Start: 12-29-2023 End: 12-31-2023 ambulatory JUSTIN Rodriguez [facility] Start: 12-09-2023 Patient encounter procedure Daria Luevanozpatrick SWIFT TENDER Work Phone: [facility] Start: 12-07-2023 End: 12-07-2023 ambulatory JUSTIN Rodriguez [facility] Start: 12-07-2023 End: 12-07-2023 Subsequent hospital visit by physician Shaikh Maine WATERMAN Work Phone: [facility] Start: 12-04-2023 ambulatory MAINE Facility: [facility] Start: 12-03-2023 Chart abstracting Grant sexton [...] 11-04-2023 Emergency department patient visit Shaikh [place] Facility[facility] Start: 11-03-2023 End: 11-03-2023 ambulatory Johnny Cespedes MD Facility:[facility] Start: 09-01-2023 End: 09-01-2023 ambulatory Lucía Bhavin Montero DIRECTOR DENTAL SERVICES-CHART CALCULATOR [facility] Start: 08-31-2023 End: 08-31-2023 ambulatory Johnny Cespedes MD Facility:[facility] Start: 08-27-2023 End: 08-27-2023 ambulatory Linh Simone Linden DIRECTOR DENTAL SERVICES-CHART CALCULATOR Facility:[facility] Start: 08-24-2023 End: 08-24-2023 ambulatory Linh Simone Linden DIRECTOR DENTAL SERVICES-CHART CALCULATOR Facility:[facility] Start: 08-20-2023 End: 08-20-2023 [facility]-CHART CALCULATOR Facility:[facility] Start: 08-17-2023 End: 08-17-2023 ambulatory Derrick Beaulieu MD Facility[facility] Start: 08-17-2023 End: 08-17-2023 ambulatory Linh Simone Linden DIRECTOR DENTAL SERVICES-CHART CALCULATOR Facility:[facility] Start: 08-13-2023 End: 08-13-2023 ambulatory Linh Simone Linden DIRECTOR DENTAL SERVICES-CHART CALCULATOR Facility:[facility] Start: 08-11-2023 ambulatory Johnny Cespedes MD Facility:[facility] Start: 08-10-2023 End: 08-10-2023 ambulatory Derrick Beaulieu MD Facility:[facility] Start: 08-06-2023 End: 08-06-2023 ambulatory Linh Simone Donaldsonzman DIRECTOR DENTAL SERVICES-CHART CALCULATOR Facility:[facility] Start: 08-03-2023 End: 08-03-2023 [facility]-CHART CALCULATOR Facility:[facility] Start: 07-31-2023 End: 07-31-2023 ambulatory Lucía Bhavin MitchellMontero DIRECTOR DENTAL SERVICES-CHART CALCULATOR Facility[facility] Start: 07-21-2023 End: 07-30-2023 Evaluation and management of inpatient Starla Marie PA-C Facility:[facility] Start: 06-10-2023 End: 06-12-2023 Patient encounter status [address] ffin Radiology Start: 06-10-2023 End: 06-12-2023 [...] meraz PA-C Work Phone: [facility] Comment on above: Refill Request Start: 05-27-2023 Chart Update Shaikh Maine Work Phone: [facility] 250 DO Work Phone: Start: 05-26-2023 ambulatory PCP UNKNOWN Facility:[id number] Start: 05-25-2023 Encounter for preprocedural cardiovascular examination Shawn Marlow [facility] Start: 05-25-2023 ambulatory PCP UNKNOWN Facility:[id number] Start: 04-14-2023 End: 04-14-2023 ambulatory Shaikh Maine [facility] Start: 04-14-2023 End: 04-14-2023 ambulatory MD Shaikh Grove Work Phone: [facility] Work Phone: Start: 04-14-2023 End: 04-14-2023 Patient encounter procedure MD Shaikh Grove Work Phone: [facility]-CT Scan [facility] [place] Work Phone: Start: 04-09-2023 NPVRFRL, Provider: Mily Marlow, Status: Pen, Time: 10:00 AM Mily Marlow MD Work Phone: [facility] 600 DO Work Phone: Start: 04-09-[address] Mily Marlow Facility: Start: 04-08-2023 AUDIT Mily bales MD Work Phone: [facility] 600 DO Work Phone: Start: 04-03-2023 End: 04-03-2023 ambulatory Agustin Nj Other [employer] Other Start: 04-03-2023 Telephone encounter Agustin Nj [facility] Start: 03-27-2023 End: 03-28-2023 ambulatory SHAIKH MAINE Facility[facility] Start: 03-25-2023 End: 03-25-2023 ambulatory Agustin Adancassidy Other [facility] [place] Other Start: 03-25-2023 Office outpatient vi sit 15 minutes Agustin Nj [facility] Start: 03-25-2023 End: 04-14-2023 Pre-admission assessment Derrick Buck [facility] Start: 02-24-2023 End: 02-24-[address] BRENDA [...] 12-02-2022 End: 12-02-2022 ambulatory Agustin Nj Other [facility] [place] Other Start: 12-02-2022 Telephone encounter Agustin Nj [facility] Start: 11-06-2022 End: 11-06-2022 ambulatory Agustin Nj Other [employer] Other Start: 11-06-2022 Telephone encounter Nicholas raya MD Work Phone: Otolaryngology Comment on above: Patient Question; Or ders Start: 10-31-2022 End: 10-31-2022 Patient encounter procedure Nicholas Jenkins MD Work Phone: Otolaryngology Comment on above: Acute recurrent fron monica sinusitis; Other chronic sinusitis Start: 10-13-2022 End: 10-14-2022 ambulatory CALVOROLF RAMÍREZD Facility:[facility] Start: 10-03-2022 End: 10-03-2022 ambulatory Marlin Christina Other [employer] Other Start: 10-03-2022 Telephone encounter Marlin Christina [...] 07-17-2022 End: 07-17-2022 ambulatory Marlin Christina Other [employer] Other Start: 07-17-2022 Telephone encounter Marlin Christina [facility] Start: 06-19-2022 End: 06-20-2022 ambulatory CALVO H FAWWAD Facility:[facility] Start: 04-28-2022 End: 04-29-2022 ambulatory SHAIKH Jonathan GROVE Facility:[facility] Start: 04-09-2022 End: 04-09-2022 ambulatory Agustin Nj Other [employer] Other Start: 04-09-2022 Telephone encounter Agustin Nj [...] 08-28-2021 End: 08-28-2021 ambulatory Agustin Nj Other [employer] Other Start: 08-28-2021 Office outpatient vi sit 15 minutes Agustin Nj [facility] Start: 03-06-2021 End: 03-06-2021 Subsequent hospital visit by physician Shari [facility] Vonda Work Phone: Radiology Comment on above: 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.A31] Start: 11-16-2017 End: 11-17-2017 Ambulatory DEFAULT PHYSICIAN Facility:[facility] Patient encounter status Mily Marlow MD Work Phone: [facility] 600 DO Work Phone: Procedures Date Procedure Procedure Detail Performing Clinician Start: 12-07-2024 MLR HEMOGLOBIN A1C Brit elzbieta Bert SWIFT TENDER Work Phone: Start: 08-19-2024 OCCULT BLOOD* Daria Bert SWIFT TENDER Work Phone: Start: 08-04-2024 ALL CBC WITH AUTO DIFF Daria Noel SWIFT TENDER Work Phone: Start: 07-22-2024 Radiologic exam knee [...] 2028 Screening for malignant neoplasm of colon [facility] Start: 12-05-2026 Glaucoma screening Diabetes: Retinopathy Screening [facility] Start: 03-02-2025 End: 03-02-2025 Patient encounter procedure 03/02/2025 3:30 PM EDT Procedure Visit [facility] 112 [facility] 120 [place] [address] Grant Sheth DPM [address] [address] [facility] Start: 01-24-2025 End: 01-24-2025 Patient encounter procedure Orthopaedics Comment on above: discuss left knee revision/followup LEFT KNEE Start: 01-17-2025 End: 01-17-2025 Patient encounter procedure 01/17/2025 1:25 PM EDT Office Visit Otolaryngology [address] [address] Partha Jackson PA-C [address] [place] [address] Ear follow up and med renewal Otolaryngology Comment on above: Ear follow up and med renewal Start: 01-01-2025 Hemoglobin A1c measurement HbA1C [facility] Start: 12-15-2024 End: 12-15-2024 Patient encounter procedure [facility] Comment on above: Diabetes mellitus due to underlying cond ition with diabetic polyneuropathy, with long-term current use of insulin ([facility]) (Primary Dx); Onychomycosis; Toe pain, left Start: 12-13-2024 End: 12-13-2024 Patient encounter procedure 12/13/2024 11:20 AM EST Office Visit Otolaryngology [address] [address] Partha Jackson PA-C 5[address] [place], [place] [phone] Ear follow up and med renewal Otolaryngology Comment on above: Ear follow up and med renewal Start: 12-08-2024 End: 12-08-2024 Patient encounter procedure [facility] Comment on above: Arrived Start: 12-06-2024 End: 12-06-2024 Patient encounter procedure 12/06/2024 4:30 PM EST Procedure Visit [facility] [address] [place] [address] Grant Sheth DPM [address] [address] [facility] Start: 11-28-2024 End: 11-28-2024 Patient encounter procedure 11/28/2024 3:30 PM EST Office Visit Otolaryngology [address] [address] Partha Jackson PA-C [address] [place], [place] [phone] follow up Otolaryngology Comment on above: follow up Start: 11-24-2024 End: 11-24-2024 Patient encounter procedure 11/24/2024 3:00 PM EST Office Visit Plastic Surgery [address] [address] Jennifer Rasmussen APRN.CHART CALCULATOR [address] [place], [place] [phone] cyst on leg Plastic Surgery Comment on above: cyst on leg Start: 11-17-2024 End: 11-17-2024 Patient encounter procedure 11/17/2024 1:40 PM EST Office Visit [facility] [address] [phone] Grant Sheth, CHELSEA [address] [address] [facility] Start: 11-16-2024 End: 11-16-2024 Patient encounter procedure 11/16/2024 10:00 AM EST Office Visit [facility] [address] [place] [address] Daria Noel NP [address] [place] [phone] Arrived [facility] Comment on above: Arrived Start: 11-15-2024 End: 11-15-2024 Patient encounter procedure 11/15/2024 11:20 AM EST Office Visit Otolaryngology [address] [address] Partha Jackson PA-C [address] [place] [address] Ear follow up and med renewal Otolaryngology Comment on above: Ear follow up and med renewal Start: 10-27-2024 End: 10-27-2024 Patient encounter procedure 10/27/2024 10:30 AM EST Office Visit [facility] [address] [place] [address] Daria Noel NP [address] [place] [address] [facility] Start: 10-19-2024 Advance Directive Discussion Advance Directive Discussion [facility] Start: 10-08-2024 End: 09-08-2025 Hemoglobin A1c/Hemoglobin.total in Blood Hemoglobin A1c Lab Routine Type 2 diabetes mellitus with diabetic neuropathy, without long-term current use of insulin ([facility]) Expected: 10/08/2024 (Approximate), Expires: 09/08/2025 [facility] Work Phone: Comment on above: Expected: 10/08/2024 (Approximate), Expi res: 09/08/2025 Start: 10-03-2024 Hemoglobin A1c measurement Diabetes: Hemoglobin A1C [facility] Start: 09-29-2024 End: 09-29-2024 Patient encounter procedure 09/29/2024 3:10 PM EST Office Visit [facility] 112 [facility] 120 [place] [phone] Grant Sheth DPM 1026 [facility] 5 [place] [address] [facility] Start: 09-21-2024 End: 09-21-2024 Patient encounter procedure 09/21/2024 2:30 PM EST Office Visit [facility] [address] [place] [address] Daria Noel, NUNU [address] [place] [address] [facility] Start: 09-14-2024 End: 09-14-2024 ambulatory 09/14/2024 2:00 PM EST Treatment [facility] [address] [place] [address] Marco Izquierdo, PT [address] [place] [address] [facility] Start: 09-12-2024 End: 09-12-2024 ambulatory 09/12/2024 2:00 PM EST Treatment [facility] [address] [place] [address] Abbi Delgado, RECRUITING MANAGER [facility] Start: 09-10-2024 Glaucoma screening Diabetes: Retinopathy Screening [facility] Start: 09-08-2024 End: 09-08-2024 Patient encounter procedure 09/08/2024 3:30 PM EST Office Visit [facility] [address] [place] [address] Daria Noel NP [address] [place] [address] [facility] Start: 09-08-2024 End: 09-08-2024 ambulatory 09/08/2024 2:30 PM EST Treatment [facility] [address] [place] [address] Abbi Delgado, RECRUITING MANAGER [facility] Start: 09-08-2024 End: 09-08-2024 Patient encounter procedure [facility] Comment on above: Diabetes mellitus due to underlying cond ition with diabetic polyneuropathy, with long-term current use of insulin ([facility]) (Primary Dx); Onychomycosis; Toe pain, left Start: 09-06-2024 End: 09-06-2024 ambulatory [facility] Start: 09-05-2024 End: 09-05-2024 Patient encounter procedure 09/05/2024 3:00 PM EST Office Visit [facility] [address] [place] [phone] Daria Noel, SWIFT TENDER [address] [place] [address] [facility] Start: 09-01-2024 End: 09-01-2024 ambulatory [facility] Start: 08-30-2024 End: 08-30-2024 ambulatory 08/30/2024 2:30 PM EST Treatment [facility] [address] [facility] [address] [place] [address] Abbi Delgado PTA [facility] Start: 08-26-2024 End: 08-26-2024 ambulatory 08/26/2024 10:30 AM EST Treatment [facility] [address] [facility] [address] [place] [address] Abbi Delgado PTA [facility] Start: 08-25-2024 End: 08-25-2024 Patient encounter procedure 08/25/2024 2:20 PM EST Office Visit [facility] [address] [facility] [address] [place] [address] Grant Sheth DPM 3006 [facility] 5 [place] [address] [facility] Start: 08-24-2024 End: 08-24-2024 [...] Evaluation [facility] [address] [facility] [address] [place] [address] Marco Izquierdo, PT [address] [facility] [address] [place] [address] [facility] Start: 08-05-2024 End: 08-05-2024 Patient encounter procedure 08/05/2024 10:40 AM EDT Office Visit Plastic Surgery [address] [address] Jennifer Rasmussen APRN.CHART CALCULATOR [address] [place] [address] Cyst / Left Leg Plastic Surgery Comment [...] unspecified type Expected: 08/02/2024 (Approximate), Expires: 08/02/2025 [facility] Comment on above: Expected: 08/02/2024 (Approximate), Expi res: 08/02/2025 Start: 08-02-2024 End: 08-02-2025 Ferritin [Mass/volume] in Serum or Plasma Ferritin Lab Routine Anemia, unspecified type Expected: 08/02/2024 (Approximate), Expires: 08/02/2025 [facility] Comment on above: Expected: 08/02/2024 (Approximate), Expi res: 08/02/2025 Start: 08-02-2024 End: 08-02-2025 Iron + transferrin + TIBC Iron + transferrin + TIBC Lab Routine Anemia, unspecified type Expected: 08/02/2024 (Approximate), Expires: 08/02/2025 [facility] Comment on above: Expected: 08/02/2024 (Approximate), Expi res: 08/02/2025 Start: 07-22-2024 End: 07-22-2024 Patient encounter procedure 07/22/2024 10:00 AM EDT Office Visit Orthopaedics [address] [address] Carmen William MD [address] [place] [address] orq for painful bilateral total knee arthroplasty. Orthopaedics Comment on above: orq for painful bilateral total knee art hroplasty. Start: 06-28-2024 End: 06-28-2024 Patient encounter procedure 06/28/2024 11:20 AM EDT Office Visit Otolaryngology [address] [address] Partha Jackson PA-C [address] [place] [address] Follow up/ medication refill Otolaryngology Comment on above: Follow up/ medication refill Start: 06-26-2024 GFR test (Diabetes, CKD 3-4, OR last GFR 15-59) GFR test (Diabetes, CKD 3-4, OR last GFR 15-59) [facility] Start: 06-26-2024 Urine screening for protein Diabetes: Urine Protein Screening [facility] Start: 06-22-2024 End: 06-22-2024 Patient encounter procedure [facility] Comment on above: Arrived Start: 06-19-2024 COVID-19 Vaccine () COVID-19 Vaccine () [facility] Start: 06-19-2024 Covid-19 Vaccine () Covid-19 Vaccine () [facility] Start: 06-19-2024 Influenza vaccination Influ[facility] Vaccine (#[facility]) [facility] Start: 06-17-2024 End: 06-17-2024 Patient encounter procedure 06/17/2024 8:40 AM EDT Office Visit Plastic Surgery [address] [address] Jennifer Rasmussen APRN.CHART CALCULATOR [address] [place] [address] cyst on leg Plastic Surgery Comment on above: cyst on leg Start: 06-16-2024 End: 06-16-2024 Patient encounter procedure 06/16/2024 2:10 PM EDT Office Visit [facility] [address] [place] [address] Grant Sheth DPM 3006 [facility] 5 [place] [address] [facility] Start: 06-10-2024 GFR test (Diabetes, CKD 3-4, OR last GFR 15-59) GFR test (Diabetes, CKD 3-4, OR last GFR 15-59) [facility] Start: 05-27-2024 End: 05-27-2024 Patient encounter procedure 05/27/2024 3:30 PM EDT Office Visit Otolaryngology [address] [address] Partha Jackson PA-C [address] [place] [address] Follow up/ medication refill Otolaryngology Comment on above: Follow up/ medication refill Start: 05-19-2024 Influenza vaccination Flu vaccine (#1) [facility] Start: 05-05-2024 Hemoglobin A1c measurement HbA1C [facility] Start: 02-11-2024 End: 02-11-2024 Patient encounter procedure 02/11/2024 11:10 AM EDT Office Visit [facility] 112 [facility] [address] [place] [phone] Grant Sheth DPM 3006 [facility] 5 [place] [address] [facility] Start: 02-04-2024 Hemoglobin A1c measurement Diabetes: Hemoglobin A1C [facility] Start: 12-09-2023 End: 12-09-2023 Patient encounter procedure 12/09/2023 2:00 PM EST Office Visit [facility] [address] [place] [phone] Shaikh Grove MD [address] [place] [address] [facility] Start: 12-03-2023 End: 12-03-2023 Patient encounter procedure [facility] Start: 10-19-2023 Advance Directive Discussion Advance Directive Discussion [facility] Start: 10-19-2023 Annual Wellness Visit (Medicare Advantage) Annual Wellness Visit (Medicare Advantage) [facility] Start: 09-29-2023 FUV, Provider: Mily Marlow, Status: Pen, Time: 10:50 AM FUV, Provider: Mily Marlow, Status: Pen, Time: 10:50 AM [place] [address] DO Work Phone: Start: 06-25-2023 End: 06-25-2023 Admission to same day surgery center 06/25/2023 Surgery IP Unit Justin Mcgowan MD [address] [place] [address] [address] [place] [address] KNEE T[facility]OPLASTY [facility] Comment on above: KNEE TOTAL ARTHROPLASTY Start: 06-25-2023 End: 06-25-2023 Anesthesia consultation 06/25/2023 Anesthesia Event IP Unit Kristal Nolasco APRN - [facility] Start: 06-25-2023 End: 06-25-2023 Arthrp kne condyle&platu medial&lat compartments KNEE TOTAL ARTHROPLASTY Right knee pain, unspecified chronicity 06/25/2023 8:00 AM EDT [facility] Start: 06-25-2023 Subsequent hospital visit by physician 06/25/2023 Hospital Encounter IP Unit Justin Mcgowan MD [address] [facility] [address] [place] [address] [facility] Start: 06-19-2023 COVID-19 Vaccine (2022- season) COVID-19 Vaccine ( season) [facility] Start: 06-19-2023 Covid-19 Vaccine (2022- season) Covid-19 Vaccine ( season) [facility] Start: 06-19-2023 Influenza vaccination INFLUENZA (#1) [facility] Start: 06-02-2023 Annual Wellness Visit (AWV) Annual Wellness Visit (AWV) [facility] Start: 05-19-2023 Influenza vaccination Flu vaccine (#1) [facility] Start: 12-03-2022 COVID-19 VACCINE (5 - Moderna series) COVID-19 VACCINE (5 - Moderna series) [facility] Start: 10-19-2022 ADVANCE DIRECTIVE DISCUSSION ADVANCE DIRECTIVE DISCUSSION [facility] Start: 07-04-2022 BP CONTROLLED (<130/80) BP CONTROLLED (<130/80) [facility] Start: 06-19-2022 Influenza vaccination INFLUENZA (Season Ended) [facility] Start: 10-19-2021 ADVANCE DIRECTIVE DISCUSSION ADVANCE DIRECTIVE DISCUSSION [facility] Start: 07-04-2021 COVID-19 VACCINE (3 - Booster for Moderna series) COVID-19 VACCINE (3 - Booster for Moderna series) [facility] Start: 2021 PNEUMOVAX AGE 65 AND OVER WITH 5YR LOOKBACK (#1) PNEUMOVAX AGE 65 AND OVER WITH 5YR LOOKBACK (#1) [facility] Start: 03-29-2021 COVID-19 Vaccine (3 - Booster for Moderna series) COVID-19 Vaccine (3 - Booster for Moderna series) [facility] Start: 2016 Respiratory Syncytial Virus (RSV) or age 60 yrs+ (1 - 1-dose 60+ series) Respiratory Syncytial Virus (RSV) or age 60 yrs+ (1 - 1-dose 60+ series) [facility] Start: 2016 RSV Vaccine (1 - 1-dose 60+ series) RSV Vaccine (1 - 1-dose 60+ series) [facility] Start: 2016 RSV Vaccine (1 - Risk 60-74 years 1-dose series) RSV Vaccine (1 - Risk 60-74 years 1-dose series) [facility] Start: 12-20-2014 Hemoglobin A1c/Hemoglobin.total in Blood HBA1C [facility] Start: 11-16-2013 Pneumococcal 65+ years Vaccine (2 - PCV) Pneumococcal 65+ years Vaccine (2 - PCV) [facility] Start: 11-16-2013 Pneumococcal 65+ years Vaccine (2 of 2 - PCV) Pneumococcal 65+ years Vaccine (2 of 2 - PCV) [facility] Start: 11-16-2013 Pneumococcal Vaccine: 50+ (2 of 2 - PCV) Pneumococcal Vaccine: 50+ (2 of 2 - PCV) [facility] Start: 11-16-2013 Pneumococcal Vaccine: 65+ (2 of 2 - PCV) Pneumococcal Vaccine: 65+ (2 of 2 - PCV) [facility] Start: 11-16-2013 Pneumococcal Vaccine: 65+ Years (2 - PCV) Pneumococcal Vaccine: 65+ Years (2 - PCV) [facility] Start: 11-16-2013 Pneumococcal Vaccine: 65+ Years (2 of 2 - PCV) Pneumococcal Vaccine: 65+ Years (2 of 2 - PCV) [facility] Start: 11-16-2013 PNEUMOCOCCAL: 65+ (2 - PCV) PNEUMOCOCCAL: 65+ (2 - PCV) [facility] Start: 08-09-2013 Hepatitis B surface antibody level LDL CHOLESTEROL [facility] Start: 2011 PROSTATE CANCER SCREENING DISCUSSION PROSTATE CANCER SCREENING DISCUSSION [facility] Start: 2011 Prostate specific antigen measurement Prostate Cancer Screening Discussion [facility] Start: 2006 Shingles vaccine (1 of 2) Shingles vaccine (1 of 2) [facility] Start: 2006 SHINGRIX VACCINE (1 of 2) SHINGRIX VACCINE (1 of 2) [facility] Start: 08-20-2005 Urine microalbumin profile DTaP,Tdap,Td Vaccine (1 - Tdap) [facility] Start: 05-20-2005 DTaP/Tdap/Td vaccine (1 - Tdap) DTaP/Tdap/Td vaccine (1 - Tdap) [facility] Start: 2001 COLOGUARD (FIT-DNA) COLOGUARD (FIT-DNA) [facility] Start: 2001 Colonoscopy COLONOSCOPY [facility] Start: 2001 COLORECTAL CANCER SCREENING COLORECTAL CANCER SCREENING [facility] Start: [address] COLONOGRAPHY [facility] Start: 2001 FECAL OCCULT BLOOD FECAL OCCULT BLOOD [facility] Start: 2001 Screening for malignant neoplasm of colon [facility] Start: 2001 SIGMOIDOSCOPY SIGMOIDOSCOPY [facility] Start: 1986 Zoledronic acid therapy ALPHA-1 ANTITRYPSIN DEFICIENCY SCREENING [facility] Start: 1975 Urine microalbumin profile DTAP,TDAP,TD (1 - Tdap) [facility] Start: 1975 Urine screening for protein Diabetes: Urine Protein Screening [facility] Start: 1974 ANNUAL PCP TEAM CHRONIC DISEASE VISIT ANNUAL PCP TEAM CHRONIC DISEASE VISIT [facility] Start: 1974 BP CONTROLLED (<130/80) BP CONTROLLED (<130/80) [facility] Start: 1974 GFR test (Diabetes, CKD 3-4, OR last GFR 15-59) GFR test (Diabetes, CKD 3-4, OR last GFR 15-59) [facility] Start: 1974 Glaucoma screening Diabetic retinal exam [facility] Start: 1974 Hepatitis C screening Hepatitis C screen [facility] Start: 1974 HIV SCREENING HIV SCREENING [facility] Start: 1974 SPIROMETRY SPIROMETRY [facility] Start: 1974 Urine screening for protein Diabetic Alb to Cr ratio (uACR) test [facility] Start: 1968 Depression Screen Depression Screen [facility] Start: 1966 3 comp foot exam completed DIABETIC FOOT EXAM [facility] Start: 1966 Diabetic foot examination Diabetic foot exam [facility] Start: 1966 Glaucoma screening Dilated Retinal Exam [facility] Start: 1966 Hemoglobin A1c measurement A1C test (Diabetic or Prediabetic) [facility] Start: 1966 Hepatitis B screening URINE ALBUMIN:CREATININE RATIO [facility] Start: 1966 Hepatitis C antibody, confirmatory test DILATED RETINAL EXAM [facility] Start: 1966 Lipid panel Lipids [facility] Start: 1956 ABDOMINAL AORTIC ANEURYSM SCREENING ABDOMINAL AORTIC ANEURYSM SCREENING [facility] Start: 1956 Abdominal aortic aneurysm screening Abdominal Aortic Aneurysm Screening [facility] Start: 1956 Medicare Annual Wellness (AWV) Medicare Annual Wellness (AWV) [facility] Start: 1956 Screening for malignant neoplasm of colon [facility] Comprehensive metabo lic 2000 panel - Serum or Plasma Comprehensive metabolic panel Lab Routine Essential (primary) hypertension (CMS/HCC) Type 2 diabetes mellitus with diabetic neuropathy, without long-term current use of insulin (CMS/HCC) Ordered: 08/02/2024 [facility] Comment on above: Ordered: 08/02/2024 End: 11-30-2023 CT SINUS STEREO WO IVCON CT SINUS STEREO WO IVCON Radiology Routine Other chronic sinusitis 1 Occurrences starting 10/31/2022 until 11/30/2023 [facility] Work Phone: Comment on above: 1 Occurrences starting 10/31/2022 until 11/30/2023 End: 06-10-2023 MRSA DNA Probe, Nasal [facility] Work Phone: Comment on above: Once for 1 Occurrences starting 06/10/20 until 06/10/2023 End: 08-12-2025 XR Knee - bilateral 4 Views XR KNEE GENERAL 4V AP BOTH/PA BOTH/LAT/MERC BILATERAL Radiology Routine Pyogenic arthritis of left knee joint, due to unspecified organism (HCC) 1 Occurrences starting 07/13/2024 until 08/12/2025 [facility] Work Phone: Comment on above: 1 Occurrences starting 07/13/2024 until 08/12/2025 End: 01-29-2026 XR Knee - left 4 Views XR KNEE GENERAL 4V AP BOTH/PA BOTH/LAT/MERC LEFT Radiology Routine Pain 1 Occurrences starting 12/30/2024 until 01/29/2026 [facility] Work Phone: Comment on above: 1 Occurrences starting 12/30/2024 until 01/29/2026 [facility] Immunizations Immunization Date Immunization Notes Care Provider [facility] 09-08-2024 influenza, seasonal, injectable, preservative free Daria Noel NP Work Phone: [facility] 07-23-2023 influenza, injectabl e, quadrivalent, preservative free Shaikh Maine WATERMAN Work Phone: [facility] 07-23-2023 influenza virus vaccine, unspecified formulation Partha Jackson PA-C Work Phone: [facility] 08-02-2022 SARS-COV-2 (COVID-19 ) vaccine, mRNA, spike protein, LNP, bivalent, PF Shaikh Maine WATERMAN Work Phone: [facility] 07-20-2022 Influenza, High-dose Seasonal, Quadrivalent, Preservative Free Shaikh Maine WATERMAN Work Phone: [facility] 08-12-2021 COVID-19 Vaccine Moderna - Documentation Purposes Only Agustin Nj Other [employer] Other 07-28-2021 Influenza, High-dose Seasonal, Quadrivalent, Preservative Free Shaikh Maine WATERMAN Work Phone: [facility] 02-01-2021 COVID-19 Vaccine Moderna - Documentation Purposes Only Agustin Nj Other [facility] [employer] Other 01-04-2021 COVID-19 Vaccine Moderna - Documentation Purposes Only Agustin Nj Other [facility] [employer] Other 11-16-2012 pneumococcal polysaccharide vaccine, 23 valent Gifty Ball MD Work Phone: [facility] 07-12-2012 influenza virus vaccine, unspecified formulation Gifty Ball MD Work Phone: [facility] 07-28-2011 influenza virus vaccine, unspecified formulation Gifty Ball MD Work Phone: [facility] 08-06-2005 tetanus toxoid, adsorbed Gifty Ball MD Work Phone: [facility] 05-19-2005 Td, unspecified formulation Guille Tapia DO Work Phone: [facility] 05-19-2005 tetanus and diphther ia toxoids, not adsorbed, for adult use Shaikh Maine WATERMAN Work Phone: [facility] 07-28-2001 pneumococcal polysaccharide vaccine, 23 valent Gifty Ball MD Work Phone: [facility] Payers Date Payer Category Payer Self-pay [id number] 2022 Medicare (Managed Care) [facility] [id number] 2021 Medicare DEVOTED MEDICARE DEVOTED HEALTH [id number] 2021-Present [phone] [address] [place] [id number] O [id number] [id number] [id number] 2021 Medicare [id number]. [id number] 2021 Private Health Insurance DEVOTED HEALTH [place] H[place] [id number] [id number] 2021 Unknown [id number] 2.16.840.1.217237.19 2018 Unknown 1956 Unknown [id number] 2.16.840.1.814878.3.579. 2.593 1956 Unknown [id number] 2.16.840.1.085748.3.579. 2.593 1956 Unknown [id number] 2.16.840.1.006060.3.579. 2.593 1956 Unknown [id number] 2.16.840.1.800184.3.579. 2.593 1956 Unknown [id number] 2.16.840.1.226663.3.579. 2.593 1956 Unknown [id number] 2.16.840.1.558688.3.579. 2.593 1956 Unknown [id number] 2.16.840.1.361840.3.579. 2.593 1956 Unknown [id number] 2.16.840.1.515724.3.579. 2.593 1956 Unknown [id number] 2.16.840.1.503737.3.579. 2.593 1956 Unknown [id number] 2.16.840.1.096306.3.579. 2.593 1956 Unknown [id number] 2.16.840.1.189291.3.579. 2.356 1956 Unknown [id number] 2.16840.1.421806.3.579. 2.1068 1956 Unknown [id number] 2.16.840.1.090101.3.579. 2.1068 1956 Unknown [id number] 2.16.840.1.670466.3.579. 2.727 1956 Unknown [id number] 2.16.840.1.360936.3.579. 2.1286 1956 Unknown [id number] 2.16.840.1.113960.3.579. 2.196 1956 Unknown [id number] 2.16.840.1.169350.3.579. 2.196 1956 Unknown [id number] 2.16.840.1.199239.3.579. 2.196 1956 Unknown [id number] 2.16.840.1.480529.3.579. 2.196 1956 Unknown [id number] 2.16.840.1.365705.3.579. 2.196 1956 Unknown [id number] 2.16.840.1.254345.3.579. 2.196 1956 Unknown [id number] 2.16.840.1.650937.3.579. 2.196 1956 Unknown [id number] 2.16.840.1.659225.3.579. 2.196 1956 Unknown [id number] 2.16.840.1.031609.3.579. 2.196 1956 Unknown [id number] 2.16.840.1.634270.3.579. 2.196 1956 Unknown [id number] 2.16.840.1.719091.3.579. 2.196 1956 Unknown [id number] 2.16.840.1.940697.3.579. 2.196 1956 Unknown [id number] 2.16.840.1.311238.3.579. 2.196 1956 Unknown [id number] 2.16.840.1.816295.3.579. 2.196 1956 Unknown [id number] 2.16.840.1.732692.3.579. 2.196 1956 Unknown [id number] 2.16.840.1.071949.3.579. 2.196 1956 Unknown [id number] 2.16.840.1.828899.3.579. 2.196 1956 Unknown [id number] 2.16.840.1.185692.3.579. 2.196 1956 Unknown [id number] 2.16.840.1.836146.3.579. 2.196 1956 Unknown [id number] 2.16.840.1.884470.3.579. 2.196 1956 Unknown [id number] 2.16.840.1.204583.3.579. 2.196 1956 Unknown [id number] 2.16.840.1.576110.3.579. 2.173 1956 Unknown [id number] 2.16.840.1.269356.3.579. 2. 1956 Unknown [id number] 2.16.840.1.529157.3.579. 2.173 1956 Unknown [id number] 2.16.840.1.216048.3.579. 2.173 1956 Unknown [id number] 2.16.840.1.757889.3.579. 2.173 1956 Unknown [id number] 2.16.840.1.964709.3.579. 2. 1956 Unknown [id number] 2.16.840.1.681242.3.579. 2.1258 1956 Unknown [id number] 2.16.840.1.153916.3.579. 2.1258 1956 Unknown [id number] 2.16.840.1.502040.3.579. 2.1258 1956 Unknown [id number] 2.16.840.1.098721.3.579. 2.1258 1956 Unknown [id number] 2.16.840.1.950505.3.579. 2.1258 1956 Unknown [id number] 2.16.840.1.859381.3.579. 2.1258 1956 Unknown [id number] 2.16.840.1.400003.3.579. 2.1258 1956 Unknown [id number] 2.16.840.1.143129.3.579. 2.1258 1956 Unknown [id number] 2.16.840.1.657090.3.579. 2.1258 1956 Unknown [id number] 2.16.840.1.321429.3.579. 2.1259 1956 Unknown [id number] 2.16.840.1.637516.3.579. 2.9 1956 Unknown [id number] 2.16.840.1.142378.3.579. 2.9 1956 Unknown [id number] 2.16.840.1.698724.3.579. 2.9 1956 Unknown [id number] 2.16.840.1.106150.3.579. 2.1259 Medicare [id number] 2.16840.1.495072.19 Medicare Medicare [id number] Unknown [id number] 2.16840.1.652590.3.579. 2.531 Unknown [id number] 2.840.1.248939.3.579. 2.531 Social History Date Type Detail Facility Start: 08-19-2022 End: 07-22-2024 Tobacco smoking status NHIS Ex-smoker [facility] Start: 02-15-1981 End: 02-15-1982 History of tobacco use Current smoker [facility] Start: 02-15-1981 End: 02-15-1982 History of tobacco use Cigarette Smoker [facility] Start: 08-16-2021 End: 07-22-2024 Alcohol intake Ex-drinker (finding) [facility] Start: 1955 Sex Assigned At Not on file [facility] Start: 01-21-2021 End: 08-19-2022 Exposure to SARS-CoV-2 (event) Not sure [facility] Start: 02-20-2021 End: 02-02-2024 Sex Assigned At [facility] Start: 08-19-2022 End: 02-02-2024 Cigarettes smoked current (pack per day) - Reported 0.5 [facility] Comment on above: quit 40 years ago; Start: 08-19-2022 End: 11-02-2023 Tobacco use and exposure Smokeless tobacco non-user [facility] Start: 1955 Sex Assigned At Male [facility] Tobacco smoking status No Smokin g Status Entered [facility] National Score (1-10 0), lower number is lower risk Not on file [facility] Start: 05-19-2011 End: 11-02-2023 Tobacco smoking status NHIS Never smoked tobacco [facility] The Start Project [facility] Start: 04-30-2016 End: 06-29-2023 Alcohol intake Current non-drinker of alcohol (finding) [facility] History of tobacco use Passive smoker [facility] Start: 11-02-2023 End: 12-15-2024 Alcohol intake Lifetime non-drinker (finding) [facility] Start: 09-16-2023 Alcohol Comment caffeine: 2-3 cups per day soda [facility] Do you belong to any clubs or organizations such as evangelical groups, unions, fraternal or athletic groups, or [...] Graft Bn Canc 15 ml Allgrft - [id number] Start: 06-05-2014 Simplex P Bone Cement Radiopaque Full Dose Individual Pack - [id number] Start: 06-04-2012 Sys Bncmnt Gun Brkwy Noz Crtdg - [id number] Start: 06-04-2012 Cement Bone Simplex P W/ Tobramycin 1gm - [id number] Start: 09-06-2012 Graft Bn Dbm 5ml Ptty Strl - [id number] Start: 09-29-2014 Yuz-Kn-T-Kind Implant - [id number] Start: 09-06-2012 Comment on above: Description: 17mm x 100mm stem ext (hernandez [id number]) Ioo-Gm-F-Kind Implant - [id number] Start: 09-06-2012 Comment on above: Description: 6 Tibia comp plate (hernandez [id number]) Rym-Rh-Z-Kind Implant - [id number] Start: 09-06-2012 Comment on above: Description: left F Femur comp. (hernandez [id number]) Bad-Ly-Q-Kind Implant - [id number] Start: 09-06-2012 Comment on above: Description: 12mm ti bial insert (hernandez 576138) articulate srfc 3.5 Mm 20mm Eugenio ex Screw [id number] Start: 09-29-2014 3.5mm 22mm Augusto x Screw [id number] Start: 09-29-2014 2.7mm 24mm Locki ng Screw [id number] Start: 09-29-2014 Prosthesis Linn 3mm Titanium 3-7mm Ossicular Total Center Shoe Ear - [id number] Start: 11-03-2019 Spcr Fem 75mm Kn Mold - [id number] Start: 06-04-2012 Spcr Demarcus Stg1 Si l 75mm Tib Kn - [id number] Start: 06-04-2012 Ext Stem 30mm 75 mm 15mm Str - [id number] Start: 09-06-2012 Comment on above: Description: extensi on stem 30mm-78-15 (hernandez [id number]) Shld Hinge Sgmnt l Svc Kit Sz F - [id number] Start: 06-05-2014 Srfc Artc 17mm F Tib Kn Seg - [id number] Start: 06-05-2014 Restric Demarcus Unv Rev Insrt - [id number] Start: 09-06-2012 Plate 112mm Ss S tr Fus Lcp Bn - [id number] Start: 09-29-2014 Screw Bn 2.7mm 16mm Lcp Ss - [id number] Start: 09-29-2014 Screw Bn 2.7mm 16mm Lcp Ss Sm - [id number] Start: 09-29-2014 Screw Bn 3.5mm 20mm Lcp Ss - [id number] Start: 09-29-2014 Screw Bn 3.5mm 24mm Lcp Ss - [id number] Start: 09-29-2014 Lancets Ultra Fi ne misc [id number] Impl Knee Fem Ps n Ps Cmt Std Sz12 Rt - [id number] Start: 06-25-2023 Cement Bne 40gm Hi Visc Radpq For Rev Surg - [id number] Start: 06-25-2023 Cement Bne 40gm Hi Visc Radpq For Rev Surg - [id number] Start: 06-25-2023 Cement Bne 40gm Hi Visc Radpq For Rev Surg - [id number] Start: 06-25-2023 Psn Tib Stm 5 De g Sz J R - [id number] Start: 06-25-2023 Component Pat Wzh86ot Thk9.5mm Std Vivacit-E Demarcus Inset For - [id number] Start: 06-25-2023 Psn Asf Ps 11mm Ve R 10-12 J - [id number] Start: 06-25-2023 Use daily [id number] Start: 05-12-2024 End: 05-12-2025 1 each Daily [id number] Start: 05-12-2024 Functional Status Date Assessment Result Facility 11-08-2023 Are you deaf, or do you have serious difficulty hearing No 11/08/2023 2:22 PM Yaima Johnson RN No [facility] 11-08-2023 Are you blind, or do you have serious difficulty seeing, even when wearing glasses No 11/08/2023 2:22 PM Yaima Johnson RN No [facility] 11-08-2023 Do you have serious difficulty walking or climbing stairs No 11/08/2023 2:22 PM Yaima Johnson RN No [facility] 11-08-2023 Do you have difficul ty dressing or bathing No 11/08/2023 2:22 PM Yaima Johnson RN No [facility] 11-08-2023 Because of a physica l, mental, or emotional condition, do you have difficulty doing errands alone such as visiting a physician's office or shopping No 11/08/2023 2:22 PM Yaima Johnson RN No [facility] Mental Status Date Assessment Result Facility 11-08-2023 Because of a physica l, mental, or emotional condition, do you have serious difficulty concentrating, remembering, or making decisions No 11/08/2023 2:22 PM Yaima Johnson RN No [facility] Clinical Notes 07-12-2012 to 12-22-2024 Daria [...] 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 Has [...] follow up [facility]. 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 He has had effusions since his last [...] within normal limits. Right knee aspiration in [place] 06/13/2024 cell count 554. Left knee aspiration [...] a hinged knee component in 2014 at [facility]. Patient states that his providers have just indicated conservative management for an increasing solid soft tissue mass that he localizes to the medial aspect of his left knee. Patient states that he has noticed that this mass is enlarging very slowly over time. He does report it is p (more content not included)... [facility] 12-08-2024 History of Presen t illness Narrative Associated Problem(s): Knee pain Persistent limited ROM,. Pain and falls persist. Pt following with 3 different orthopaedic specialists at this time. Is due to see Dr. Escamilla at [facility] on January 24 to determine if surgery [...] for Follow-up. HPI Specialists: Ortho- SE[facility]AL[facility]N: Currently taking Amlodipine 5mg Prazosin 1mg [...] ALBUMIN GLOBULIN RATIO 1.2 1.1 Resulting Agency [facility] DMII: Currently taking Rybelsus 7mg, [...] neuropathy, without long-term current use of insulin ([facility]) Currently taking Glimepiride 4mg Metformin 1,000mg [...] tablet metFORMIN (Glucophage) 1000 MG tablet Hyperlipidemia ([facility]) Currently taking Rosuvastatin 5mg Denies any myalgias. Continue current regimen. Relevant Medications rosuvastatin (Crestor) 5 MG tablet Essential hypertension ([facility]) Currently taking Amlodipine 5mg Prazosin 1mg [...] Is due to see Dr. Escamilla at [facility] on January 24 to determine if surgery [...] 5 MG tablet documented in this encounter [facility] 11-16-2024 History of Presen t [...] (Start on 11/17/2024) documented in this encounter [facility] 11-16-2024 Instructions Daria Noel NP - 11/16/2024 10:00 AM EST Please follow up with Ortho regarding your knees and shoulders. Discuss pain medication regimen with them. documented in this encounter [facility] 11-11-2024 Telephone encounter Note I [...] Oquendo with repeat imaging in early January. [facility] 11-11-2024 Miscellaneous Notes I spoke with [...] in early January. documented in this encounter [facility] 11-10-2024 Telephone encounter Note Medication sent. Patient to schedule for when he can come in. Partha Jackson PA-C November 10, 2024 5:30 PM [facility] 11-10-2024 Miscellaneous Notes Medication sent. Patient to schedule for when he can come in. Partha Jackson PA-C November 10, 2024 5:30 PM Person Calling: Juan José Reason for Call: pt wants to reschedule visit with Partha to 12/12 or 12/13 but wants to know if she can refill his meds until then Pt Phone #: [phone] Pharmacy Name and # : Pt last seen: 06/28/2024 [facility] Tried calling patient, no answer, LM relaying that Partha is in [place] that day and to call back with [...] use only slots documented in this encounter [facility] 11-10-2024 Telephone encounter Note Person Calling: Juan José Reason for Call: pt wants to reschedule visit with Partha to 12/12 or 12/13 but wants to know if she can refill his meds until then Pt Phone #: [phone] Pharmacy Name and # : Pt last seen: 06/28/2024 Isiah [facility] 11-10-2024 Telephone encounter Note Tried calling patient, no answer, LM relaying that Partha is in [place] that day and to call back with what he would like to to. [facility] 11-10-2024 Telephone encounter Note Patient has appointment on 11/[address] Rasmussen at 3pm and is wondering if he can see Partha that day instead of on 11/15? [facility] 11-10-2024 Telephone encounter Note Pt coming from far away and states he really doesn't have gas money for 2 trips. Asking if Partha can see him sometime on 11/24. I know I have to ask about the office use only slots [facility] 10-04-2024 Telephone encounter Note Patient is aware his medication can't be filled until 10/17 but is asking if you can send it and then they can hold it since you will be on vacation? STEPHANIE [facility] 10-04-2024 Miscellaneous Notes Patient is aware his medication can't be filled until 10/17 but is asking if you can send it and then they can hold it since you will be on vacation? STEPHANIE documented in this encounter [facility] 09-12-2024 Note Orthopaedic Surgery Subjective [...] a hinged knee component in 2013 at [facility]. Patient states that his providers have just [...] most of his surgeries were done at [facility]. His most recent surgery at [facility] was single-stage revision for failed internal implant. He has retained metallic component as well. He most recently was worked up in the emergency department at [facility] by way of left knee aspiration, advanced [...] antibotic spacer done on Right- 2022 @ [facility] Left Knee in 2018 History History reviewed. No pertinent surgical history. History reviewed. No pertinent past medical history. Acute Pain of Left Knee, Septic arthritis of knee, left ([facility]) Type 2 Diabetes Mellitus Without Complication, Without Long-Term Current Use of Insulin ([facility]) Hypothyroidism Hyperlipidemia Htn (Hypertension) Gout Wrist Arthritis Pneumonia Elevated Lfts Pulmonary Nodule H/O Clostridium Difficile Infection Dvt Prophylaxis Metatarsalgia Infection and Inflammatory Reaction Due to Unspecified Device, Implant, and Graft Left Wrist Pain Arthritis of Left Wrist Carpal Tunnel Syndrome Diabetic Neuropathy, Painful ([facility]) Arthralgia of Right Lower Leg History of Transmetatarsal Amputation of Right Foot ([facility]) Mixed Conductive and Sensorineural Hearing Loss of [...] Stable to ante (more content not included)... [facility] 09-08-2024 History of Presen t illness Narrative Associated Problem(s): COPD with exacerbation (CMS/HCC) Currently taking Pro Air PRN Spiriva Daily; Feels symptoms are well controlled currently. [facility] Associated Problem(s): Essential (primary) hypertension (CMS/HCC) [...] neuropathy, without long-term current use of insulin ([facility]) Currently taking Rybelsus 7mg, Glimepiride 4mg [...] outcome and will be going to see [facility] Orthopaedics in September 12 @ [...] ALBUMIN GLOBULIN RATIO 1.2 1.1 Resulting Agency [facility] DMII: Currently taking Rybelsus 7mg, [...] neuropathy, without long-term current use of insulin ([facility]) Currently taking Rybelsus 7mg, Glimepiride 4mg [...] tablet Other Relevant Orders Hemoglobin A1c Hyperlipidemia ([facility]) Currently taking Rosuvastatin 5mg Denies any myalgias. Continue current regimen. Lumbar spondylosis Relevant Medications oxyCODONE-acetaminophen (Percocet) 5-325 MG tablet (Start on 09/18/2024) COPD with exacerbation ([facility]) Currently taking Pro Air PRN Spiriva Daily; Feels symptoms are well controlled currently. Follow[facility]. Knee pain Relevant Medications oxyCODONE-acetaminophen (Percocet) 5-325 MG tablet (Start on 09/18/2024) Essential (primary) hypertension ([facility]) Currently taking Amlodipine 5mg Prazosin 1mg [...] free IM (Completed) documented in this encounter [facility] 09-08-2024 History of Presen t [...] vertebra (CMS/HCC) COPD (chronic obstructive pulmonary disease) ([facility]/HCC) Depression with anxiety Diabetes mellitus ([facility]/HCC) Diabetic neuropathy, type II diabetes mellitus (CMS/HCC) [...] 0 min Stress: Stress Concern Present (02/02/2024) [employer] - Occupational Stress Questionnaire Feeling of Stress : Very much Social Connections: Moderately Isolated (02/02/2024) Social Connection and Isolation Panel [NHANES] Frequency of Communication with Friends and Family: Twice a week Frequency of Social Gatherings with Friends and Family: Twice a week Attends Bahai Services: Never Active Member of Clubs or [...] pulses to the left foot NEURO: 5.07 Silvis Krystal monofilament test diminished to forefoot left 125Hz tuning fork diminished to 1st MPJ left ORTHO: Positive pain on palpation to nails 1 through 5 left foot ASSESSMENT 1. Diabetes mellitus due to underlying condition with diabetic polyneuropathy, with long-term current use of insulin ([facility]) 2. Onychomycosis 3. Toe pain, left [...] Grant Sheth DPM documented in this encounter [facility] 08-30-2024 Telephone encounter Note He [...] cause he needs it (body / mind). [facility] 08-30-2024 Miscellaneous Notes He called [...] (body / mind). documented in this encounter [facility] 08-16-2024 Telephone encounter Note Pt needs a refill on his Oxycodone TAYO:08/02/2025 NOV:09/05/2024 [facility] 08-16-2024 Miscellaneous Notes Pt needs a refill on his Oxycodone TAYO:08/02/2025 NOV:09/05/2024 documented in this encounter [facility] 08-10-2024 History of Presen t illness Narrative Associated Problem(s): Hyperlipidemia ([facility]) Currently taking Rosuvastatin 5mg Denies any myalgias. Continue current regimen Associated Problem(s): Type 2 diabetes mellitus with diabetic neuropathy, without long-term current use of insulin ([facility]) Currently taking Metformin, Glimepiride Most recent [...] outcome and will be going to see [facility] Orthopaedics in September 12 @ [...] outcome and will be going to see [facility] Orthopaedics in September 12 @ [...] ALBUMIN GLOBULIN RATIO 1.2 1.1 Resulting Agency [facility] DMII: Most recent labs: hemoglobin [...] neuropathy, without long-term current use of insulin ([facility]) Currently taking Metformin, Glimepiride Most recent [...] outcome and will be going to see [facility] Orthopaedics in September 12 @ [...] to Physical Therapy documented in this encounter [facility] 08-02-2024 Instructions Daria Noel NP - 08/02/2024 3:00 PM EDT Labs ordered- these are not fasting. Please have these completed ZEFERINO mill tender warm up Levothyroxine and start taking every morning at [...] will call you! documented in this encounter [facility] 07-22-2024 History of Presen t [...] PATIENT PRESENTS WITH AN IMPLANTABLE OR ATTACHED CABLE MAKER: No RADIOLOGY DEPARTMENT: General X-ray: Exam(s) Completed: Lower Extremity X-Ray(s): Knee, AP / Lat / Tunne / Merchant Bilateral PERIPHERAL IV DATA: Not applicable SIGNED BY: RT Ruma(R) July 22, 2024 10:08 AM documented in this encounter [facility] 07-22-2024 Note HNO ID: [id number] Author: JAMAL DONNELLY RT(R) Service: ? Author [...] PATIENT PRESENTS WITH AN IMPLANTABLE OR ATTACHED CABLE MAKER: No RADIOLOGY DEPARTMENT: General X-ray: Exam(s) Completed: Lower Extremity X-Ray(s): Knee, AP / Lat / Tunne / Merchant Bilateral PERIPHERAL IV DATA: Not applicable SIGNED BY: RT Ruma(R) July 22, 2024 10:08 AM [facility] 07-13-2024 Note HNO ID: [id number] Author: CARMEN WILLIAM MD Service: ? Author [...] or sweats. He was referred to the [facility] for evaluation and consideration of further surgery. 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 Review of Systems ACTIVE PROBLEM [...] History of Transmetatarsal Amputation of Right Foot ([facility]) Mixed Conductive and Sensorineural Hearing Loss of [...] DM type 2 (diabetes mellitus, type 2) ([facility]) Fracture Gout H/O Clostridium difficile infection [...] 0.00 Average pa (more content not included)... [facility] 07-13-2024 History of Presen t illness Narrative [...] or sweats. He was referred to the [facility] for evaluation and consideration of further surgery. 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 Review of Systems ACTIVE PROBLEM LIST Acute Pain of Left Knee Septic arthritis of knee, left ([facility]) Type 2 Diabetes Mellitus Without Complication, Without Long-Term Current Use of Insulin ([facility]) Hypothyroidism Hyperlipidemia Htn (Hypertension) Gout Wrist Arthritis Pneumonia Elevated Lfts Pulmonary Nodule H/O Clostridium Difficile Infection Dvt Prophylaxis Metatarsalgia Infection and Inflammatory Reaction Due to Unspecified Device, Implant, and Graft Left Wrist Pain Arthritis of Left Wrist Carpal Tunnel Syndrome Diabetic Neuropathy, Painful ([facility]) Arthralgia of Right Lower Leg History of Transmetatarsal Amputation of Right Foot ([facility]) Mixed Conductive and Sensorineural Hearing Loss of Right Ear With Restricted Hearing of Left Ear Sensorineural Hearing Loss (Snhl) of Left Ear With Restricted Hearing of Right Ear 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 Tinnitus, Right Ear Anxiety Obesity Chronic Back Pain Chronic Obstructive Lung Disease ([facility]) Depressive Disorder 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 Musculature Postoperative Pain Other Chronic Sinusitis Acute Recurrent Frontal Sinusitis Community Acquired Pneumonia of Left Lower Lobe of Lung Abscess of Knee, Left Knee Swelling Sutton's Cyst of Knee, Left PAST MEDICAL HISTORY Diagnosis Date Depression DM type 2 (diabetes mellitus, type 2) ([facility]) Fracture Gout H/O Clostridium difficile infection 10/2012 History of cholecystectomy HTN (hypertension) Hyperlipidemia Hypothyroidism 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 [facility] Associated Problem(s): Essential (primary) hypertension (CMS/HCC) [...] are well controlled currently. Follows [facility]. Knee pain Relevant Medications oxyCODONE-acetaminophen (Percocet) [...] 5-325 MG tablet documented in this encounter [facility] 06-22-2024 Instructions Daria Noel NP [...] and simple sugars. documented in this encounter [facility] 06-16-2024 History of Presen t [...] unspecified location Compression fracture of L1 vertebra ([facility]) COPD (chronic obstructive pulmonary disease) ([facility]) Depression with anxiety Diabetes mellitus ([facility]) Diabetic neuropathy, type II diabetes mellitus ([facility]) Dyslipidemia ([facility]) Ear discomfort, right Hyperkalemia Hyperkalemia Hypertension ([facility]) Hypertension, benign ([facility]) Hyponatremia Hypothyroid ([facility]) Insomnia, persistent Instability of internal left knee prosthesis ([facility]) Knee joint replacement status, left Left leg pain Left middle ear infection Low back pain with radiation Major depression ([facility]) Non-insulin treated type 2 diabetes mellitus ([facility]) Opiate use Otitis media, acute Pain following oral surgery Partial nontraumatic amputation of foot, right ([facility]) Pneumothorax 2009 Recurrent otitis media, bilateral Right otitis media Swelling of right lower extremity Temporary low platelet count ([facility]) Unspecified internal derangement of right knee [...] 0 min Stress: Stress Concern Present (02/02/2024) [employer] - Occupational Stress Questionnaire Feeling of Stress : Very much Social Connections: Moderately Isolated (02/02/2024) Social Connection and Isolation Panel [NHANES] Frequency of Communication with Friends and Family: Twice a week Frequency of Social Gatherings with Friends and Family: Twice a week Attends Bahai Services: Never Active Member of Clubs or [...] VASC: Palpable pedal pulses bilaterally NEURO: 5.07 Silvis Krystal monofilament test diminished to forefoot bilaterally 125Hz tuning fork diminished to 1st MPJ bilaterally ORTHO: Positive pain on palpation to nails 1 through 5 left foot ASSESSMENT 1. Diabetes mellitus due to underlying condition with diabetic polyneuropathy, with long-term current use of insulin ([facility]) 2. Onychomycosis 3. Toe pain, left [...] Grant Sheth DPM documented in this encounter [facility] 05-27-2024 Note HNO ID: [id number] Author: PARTHA JACKSON PA-C Service: ? Author Type: Physician Manager Training Type: Progress Notes Filed: 05/27/2024 16:00 [...] on it. His PCP left and the SWIFT TENDER refused to write it for him. The [...] Medical Decision Making Level: 3 - Low [facility] 05-27-2024 History of Presen t illness Narrative [...] on it. His PCP left and the SWIFT TENDER refused to write it for him. The [...] 3 - Low documented in this encounter [facility] 05-27-2024 Nurse Note Tobacco Use: .5 packs/day, for 1 years. Quit 02/15/1982. Types: Cigarettes Was smoking cessation packet given? N/A - Patient is a non-smoker or quit >1 year ago. Was a referral initiated?N/A Patient is a non-smoker Celia Nascimento RN [facility] 05-27-2024 Nurse Note Tobacco Use: .5 packs/day, for 1 years. Quit 02/15/1982. Types: Cigarettes Was smoking cessation packet given? N/A - Patient is a non-smoker or quit >1 year ago. Was a referral initiated?N/A Patient is a non-smoker Celia Nascimento, GEE documented in this encounter [facility] 05-27-2024 Telephone encounter Note I have not seen patient within the last 6 months. Appointment was over one year ago. Partha Jackson PA-C May 27, 2024 9:46 AM [facility] 05-27-2024 Miscellaneous Notes I have not seen patient within the last 6 months. Appointment was over one year ago. Partha Jackson PA-C May 27, 2024 9:46 AM documented in this encounter [facility] 05-27-2024 Telephone encounter Note I cannot [...] Jackson PA-C May 27, 2024 9:43 AM [facility] 05-27-2024 Miscellaneous Notes I cannot legally [...] on 06/28. Please call Pt Phone #: [phone] Pharmacy Name and # : Pt last seen: 05/24/2024 Nichol Whittington documented in this encounter [facility] 05-27-2024 Telephone encounter Note Spoke with [...] Asking for her advisement. Celia Nascimento, GEE [facility] 05-25-2024 Telephone encounter Note Attempted to contact pt, no personal vm greeting. Asked to contact office Pt has not been prescribed Klonopin since 2022. Is another provider prescribing? [facility] 05-25-2024 Telephone encounter Note Person Calling: Patient Reason for Call: Patient is asking should he be worried about seizures since he cannot get his clonazepam until after his appt on 06/28. Please call Pt Phone #: [phone] Pharmacy Name and # : Pt last seen: 05/24/2024 Nichol Whittington T [facility] 05-25-2024 Telephone encounter Note Left full message on patient VM. T [facility] 05-25-2024 Miscellaneous Notes Left full message on patient VM. Patient has not been seen in over a year. Cannot prescribe a controlled substance if not seen within the last 6 months. Partha Jackson PA-C May 25, 2024 7:36 AM documented in this encounter [facility] 05-25-2024 Telephone encounter Note Patient has not been seen in over a year. Cannot prescribe a controlled substance if not seen within the last 6 months. Partha Jackson PA-C May 25, 2024 7:36 AM [facility] 02-10-2024 Note [facility] 02-02-2024 Note [facility] 12-03-2023 History of Presen t illness Narrative [...] surgery Partial nontraumatic amputation of foot, right ([facility]) Pneumothorax 2009 Recurrent otitis media, bilateral Right otitis media Swelling of right lower extremity Temporary low platelet count ([facility]) Unspecified internal derangement of right knee [...] VASC: Palpable pedal pulses bilaterally NEURO: 5.07 Silvis Krystal monofilament test diminished to forefoot bilaterally 125Hz tuning fork diminished to 1st MPJ bilaterally ORTHO: Positive pain on palpation to nails 1 through 4 left foot ASSESSMENT 1. Diabetes mellitus due to underlying condition with diabetic polyneuropathy, with long-term current use of insulin ([facility]) 2. Onychomycosis 3. Toe pain, left [...] Grant Sheth DPM documented in this encounter [facility] 07-30-2023 Note [facility] 07-21-2023 Note [facility] 06-08-2023 History of Presen t illness Narrative PAT left message with patient regarding not showing for 9am PAT appt. Awaiting response. Message left with Julissa at Dr Mcgowan's office regarding patient not showing up for PAT visit. 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 Please monitor -Sent refill of the Klonopin -Take Tylenol and Ibuprofen for the pain as well -Follow up with Dr. Jenkins as scheduled [facility] History of Present illness Narrative* Partha [...] without magnification and multiple instrumentations requiring physician assistant laboratory director skills. Postoperative diagnosis: same Partha Jackson PA-C January 27, 2023 7:01 PM Medical Decision Making: Problems: Moderate: 2+ stable chronic illnesses Risk: Moderate: Drug management Medical Decision Making Level: 4 - Moderate [facility] Nurse Note* Judy Pacheco Ma - 01/27/2023 11:19 AM EDT Tobacco Use: .5 packs/day, for 1 years. Quit 02/15/1982. Types: Cigarettes Was smoking cessation packet given? N/A - Patient is a non-smoker or quit >1 year ago. 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 Please advise. 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 SECTION OF RHINOLOGY, SINUS AND SKULL BASE SURGERY Head and Neck Icard, [facility] NOTE HPI: Patient is a 67 year old male presenting for evaluation. He reports monthly sinus and ear infection. He has to put earplugs in his ear when taking a shower because when water gets in the ear, the infection starts. He c/o ear pressure He c/o congestion, Green mucous when blowing nose, pressure, and facial pressure. He has not seen an computer assistant. Sinus issues has been going on since [...] is accurate and complete. [facility] Instructions* Patient Instructions* Partha Jackson PA-C - 08/19/2022 2:41 PM EDT PLAN: -Recommend appointment with Dr. Nicholas Jenkins MD in [place] for your sinuses [address] [address] -Continue with nasal sprays and Claritin -Sent refill of the Klonopin -Follow up in 5.5-6 months with Partha Jackson PA-C -Recommend hearing aids in both ears [facility] History of Present illness Narrative* Partha [...] Level: 4 - Moderate documented in this [facility]11-01-2022 Nurse Note* Caitlin Mosley MA - 08/19/2022 2:22 PM EDT Tobacco Use: .5 packs/day, for 1 years. Quit 02/15/1982. Types: Cigarettes Was smoking cessation packet given? N/A - Patient is a non-smoker or quit >1 year ago. Was a referral initiated?N/A Patient is a non-smoker [facility] NotePROCEDURE: XR KNEE LT 4V or [...] Electronically authenticated by: JONAH GARCIA Date: 2022-06-19 16:09[facility]05-12-2022 Instructions* Patient Instructions* Partha Jackson PA-C - 02/27/2022 3:50 PM EDT 1. Follow up with Partha Jackson PA-C in about 5 months. 2. Sooner if you have any issues with your ears. 3. Please call your insurance company to check for coverage of the hearing aids. Take your most up to date hearing test, it is good for 6 months. documented [facility] History of Present illness Narrative* Gifty Ball MD - 02/27/2022 3:02 PM EDT Images from the original note were not included. Staff Physician Comments: I testify that I personally interviewed and examined the patient. I confirm the below exam findings, assessment and plan were my own and resident/SWIFT TENDER/scribe was acting as SCRIBE. Hearing unchanged, unimproved It's unclear where his severe ear pain is coming from as it's not happening today and the ear looksvery healthy. Recommend pt come back to [facility] for assessment next time this flares so we can see if its otologic or not. Gifty Ball MD, FACS Section Head, Otology/Neurotology/Skull Base Surgery Side Gluer, Cochlear Implant Program Head and Neck Icard [facility] History of Present Illness Mr. JOIE [...] Level: 4 - Moderate documented [facility] Nurse Note* Judy Pacheco Ma - 02/27/2022 2:58 PM EDT Tobacco Use: .5 packs/day, for 1 years. Quit 02/15/1982. Types: Cigarettes Was smoking cessation packet given? N/A - Patient is a non-smoker or quit >1 year ago. Was a referral initiated?N/A Patient is a non-smoker [facility] History of Present illness Narrative* Shikha Costa, AUD - 02/27/2022 2:00 PM EDT Head and Neck Icard AUDIOLOGIC EVALUATION REPORT Name: Joie Lu JR [facility]#: [id number] Date of Service: 02/27/2022 Date of : 1955 Age: [age] year old Referred by: Regan Ortega MD ([facility]) [facility] [address] Referred for: Evaluation of suspected change in hearing, tinnitus, or balance. Referral documented: In an order in [facility] Joie Lu JR was seen for [...] right greater than left hearing loss. See [facility] Audiogram for additional reported history and symptoms. [...] Should patient wish to pursue amplification at [facility], call [phone] to schedule a hearing aid evaluation appointment. * Re-evaluation as medically indicated, or sooner, if a change in hearing is noted. I verify that I have reviewed the history, test results, and interpretation for this patient. Neri Glover, MEL/A Clinical Lead [employer] HINOJOSA Abbrev- iation Definition Degree of hearing sensitivity dB range WNL within normal limits WNL 0 - 20 SNHL sensorineural hearing loss Mild 20-40 CHL conductive hearing loss Moderate 40-55 MHL mixed hearing loss Moderately-Severe 55-70 WRS word recognition score Severe 70-90 ME middle ear Profound 90 + TM tympanic membrane documented [facility]22 Miscellaneous Notes* Telephone Encounter - Partha [...] * Telephone Encounter - Natalie Motta Deborah [facility] - 02/12/2022 1:05 PM EDT Pt contacted the office again with the request for pain medication...patient mentioned that he reached out to PCP who refused to prescribe until seen on 02/27/2022. Pt is having difficulty sleeping at night * Telephone Encounter - Carin Freeman [facility] Asst - 02/11/2022 3:02 PM EDT [...] something to take the sharp aches away. [email or web address] is perferred pharmacy Thanks Carin Freeman [facility] Asst documented in this [facility] Miscellaneous Notes* Telephone Encounter - Carin Freeman [facility] Asst - 02/06/2022 11:52 AM EDT Patient is calling for a refill on the clonazePAM (KLONOPIN) 1 mg tablet. 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) [employer] [employer] [facility] 09-24-2012 History of Past illness Narrative* [...] of this encounter (statuses as of 02/06/2022) [facility] Narrative* Problem [...] of this encounter (statuses as of 02/12/2022) [facility] Narrative* Problem [...] of this encounter (statuses as of 02/27/2022) [facility] Narrative* Problem [...] of this encounter (statuses as of 02/28/2022) [facility] Narrative* Problem [...] of this encounter (statuses as of 09/17/2022) [facility] Narrative* Problem [...] of this encounter (statuses as of 10/31/2022) [facility] Narrative* Problem [...] of this encounter (statuses as of 11/10/2022) [facility] Narrative* Problem [...] of this encounter (statuses as of 01/28/2023) [facility] Narrative* Problem [...] of this encounter (statuses as of 05/29/2023) [facility] Narrative* Problem [...] of this encounter (statuses as of 06/02/2023) [facility] No data available for this section [facility] Diagnosis 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 Other specified hearing loss, unspecified ear [facility] Diagnosis Otalgia, right- Primary Other specified hearing loss, unspecified ear documented in this encounter [facility] note* Diagnosis Mixed conductive and sensorineural hearing loss of right ear with restricted hearing of left ear- Primary Sensorineural hearing loss (SNHL) of left ear with restricted hearing of right ear documented in this encounter [facility] note* Diagnosis Mixed conductive and sensorineural hearing loss of right ear with restricted hearing of left ear- Primary 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 Status post tympanoplasty Other postprocedural status Impacted cerumen of left ear Impacted cerumen documented in this encounter [facility] noteNo [employer] Other Evaluation note* Diagnosis 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- Primary Mixed conductive and sensorineural hearing loss of right ear with restricted hearing of left ear Status post tympanoplasty Other postprocedural status Acute recurrent frontal sinusitis Acute frontal sinusitis documented in this encounter [facility] note* Diagnosis Acute recurrent frontal sinusitis Acute frontal sinusitis Other chronic sinusitis documented in this encounter [facility] note* Diagnosis 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- Primary Fluid level behind tympanic membrane of right ear Mixed conductive and sensorineural hearing loss of right ear with restricted hearing of left ear Status post tympanoplasty Other postprocedural status Impacted cerumen of left ear Impacted cerumen documented in this encounter [facility] noteNo assessment information [facility] Work Phone: Evaluation note* Diagnosis Mixed conductive and sensorineural hearing loss of right ear with restricted hearing of left ear documented in this encounter [facility] note* Diagnosis 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 documented in this encounter [facility] note* Diagnosis 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 resistant Staphylococcus aureus Encounter for preprocedural laboratory examination Pre-procedural laboratory examination Right knee pain, unspecified chronicity documented in this encounter [facility] note* Diagnosis Hypothyroidism, unspecified (CMS/HCC) Acute pain of left knee Hyperlipidemia, unspecified hyperlipidemia type (CMS/HCC) Acute upper respiratory infection, unspecified Low back pain, unspecified Other specified anxiety disorders Essential hypertension (CMS/HCC) Unspecified essential hypertension documented in this encounter [facility]* Diagnosis Diabetes mellitus due to underlying condition with diabetic polyneuropathy, with long-term current use of insulin (CMS/HCC)- Primary Onychomycosis Dermatophytosis of nail Toe pain, left Pain in soft tissues of limb documented in this encounter [facility] HealthcareEvaluation note* Diagnosis 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 [facility] Diagnosis 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 [facility] Diagnosis Pre-operative clearance- Primary Preoperative [...] left knee joint, due to unspecified organism ([facility])- Primary [facility] Diagnosis Acute upper respiratory infection, unspecified documented in this encounter [facility] HealthcareEvaluation note* Diagnosis Pre-operative clearance- Primary Preoperative [...] infection, sequela- Primary [facility]* Diagnosis Pre-operative clearance- Primary Preoperative examination, [...] unspecified organism (HCC) [facility]* Diagnosis Type 2 diabetes mellitus with [...] neuropathy, without long-term current use of insulin ([facility]) Medicare annual wellness visit, subsequent Injury of left knee, initial encounter- Primary Fall, initial encounter Primary localized osteoarthrosis of multiple sites Primary localized osteoarthrosis, other specified sites Chronic pain of both knees- Primary Type 2 diabetes mellitus with diabetic neuropathy, unspecified (CMS/[facility]) Essential (primary) hypertension (CMS/HCC) Unspecified essential hypertension Anxiety disorder, unspecified Hyperlipidemia, unspecified hyperlipidemia type (CMS/[facility]) Hypothyroidism, unspecified (CMS/HCC) Essential hypertension (CMS/HCC) Unspecified essential hypertension Other specified anxiety disorders Type 2 diabetes mellitus with diabetic neuropathy, without long-term current use of insulin ([facility]) Chronic obstructive pulmonary disease with acute exacerbation ([facility]) Diabetic neuropathy, painful (CMS/[facility])- Primary Type II or unspecified type diabetes mellitus with neurological manifestations, not stated as uncontrolled Type 2 diabetes mellitus with diabetic neuropathy, unspecified (CMS/[facility]) COPD with exacerbation (CMS/[facility]) Essential (primary) hypertension ([facility]) Unspecified essential hypertension Class 2 obesity without serious comorbidity with body mass index (BMI) of 39.0 to 39.9 in adult, unspecified obesity type Lumbar spondylosis Lumbosacral spondylosis without myelopathy Acute pain of right shoulder Knee pain, unspecified chronicity, unspecified laterality Mixed hyperlipidemia ([facility]) Mixed hyperlipidemia documented in this encounter [facility]* Diagnosis Type 2 diabetes mellitus with diabetic neuropathy, without long-term current use of insulin ([facility])- Primary Essential hypertension (CMS/HCC) Unspecified essential hypertension Chronic pain of right knee Hypothyroidism, unspecified type (CMS/HCC) Generalized anxiety disorder (CMS/[facility]) Generalized anxiety disorder Hyperlipidemia, unspecified hyperlipidemia type (CMS/HCC) Acute pain of left knee- Primary Chronic pain of right knee COPD with exacerbation ([facility])- Primary Type 2 diabetes mellitus with diabetic neuropathy, without long-term current use of insulin ([facility]) Medicare annual wellness visit, subsequent Injury of left knee, initial encounter- Primary Fall, initial encounter Primary localized osteoarthrosis of multiple sites Primary localized osteoarthrosis, other specified sites Chronic pain of both knees- Primary Type 2 diabetes mellitus with diabetic neuropathy, unspecified (CMS/[facility]) Essential (primary) hypertension ([facility]/HCC) Unspecified essential hypertension Anxiety disorder, unspecified Hyperlipidemia, unspecified hyperlipidemia type (CMS/[facility]) Hypothyroidism, unspecified (CMS/[facility]) Essential hypertension (CMS/HCC) Unspecified essential hypertension Other specified anxiety disorders Type 2 diabetes mellitus with diabetic neuropathy, without long-term current use of insulin ([facility]) Chronic obstructive pulmonary disease with acute exacerbation (CMS/[facility]) Diabetic neuropathy, painful (CMS/[facility])- Primary Type II or unspecified type diabetes mellitus with neurological manifestations, not stated as uncontrolled Type 2 diabetes mellitus with diabetic neuropathy, unspecified (CMS/[facility]) COPD with exacerbation (CMS/[facility]) Essential (primary) hypertension (CMS/[facility]) Unspecified essential hypertension Class 2 obesity without serious comorbidity with body mass index (BMI) of 39.0 to 39.9 in adult, unspecified obesity type Lumbar spondylosis Lumbosacral spondylosis without myelopathy Acute pain of right shoulder Knee pain, unspecified chronicity, unspecified laterality COPD with exacerbation (CMS/[facility])- Primary Hypothyroidism, unspecified (CMS/[facility]) Essential (primary) hypertension (/[facility]) Unspecified essential hypertension Anemia, unspecified type Type 2 diabetes mellitus with diabetic neuropathy, without long-term current use of insulin ([facility]) Frequent falls S/P total knee arthroplasty, right Primary localized osteoarthrosis of multiple sites Primary localized osteoarthrosis, other specified sites Presence of left artificial knee joint Localized osteoarthritis of right knee Mixed hyperlipidemia ([facility]) Mixed hyperlipidemia documented in this encounter [facility]* Diagnosis Type 2 diabetes mellitus with diabetic neuropathy, without long-term current use of insulin ([facility])- Primary Essential hypertension (CMS/[facility]) Unspecified essential hypertension Chronic pain of right knee Hypothyroidism, unspecified type (/[facility]) Generalized anxiety disorder ([facility]) Generalized anxiety disorder Hyperlipidemia, unspecified hyperlipidemia type (/[facility]) Acute pain of left knee- Primary Chronic pain of right knee COPD with exacerbation ([facility])- Primary Type 2 diabetes mellitus with diabetic neuropathy, without long-term current use of insulin ([facility]) Medicare annual wellness visit, subsequent Injury of left knee, initial encounter- Primary Fall, initial encounter Primary localized osteoarthrosis of multiple sites Primary localized osteoarthrosis, other specified sites Chronic pain of both knees- Primary Type 2 diabetes mellitus with diabetic neuropathy, unspecified (CMS/[facility]) Essential (primary) hypertension ([facility]/HCC) Unspecified essential hypertension Anxiety disorder, unspecified Hyperlipidemia, unspecified hyperlipidemia type (CMS/[facility]) Hypothyroidism, unspecified (CMS/[facility]) Essential hypertension (CMS/HCC) Unspecified essential hypertension Other specified anxiety disorders Type 2 diabetes mellitus with diabetic neuropathy, without long-term current use of insulin (CMS/[facility]) Chronic obstructive pulmonary disease with acute exacerbation (CMS/[facility]) Diabetic neuropathy, painful (CMS/[facility])- Primary Type II or unspecified type diabetes mellitus with neurological manifestations, not stated as uncontrolled Type 2 diabetes mellitus with diabetic neuropathy, unspecified (CMS/[facility]) COPD with exacerbation (CMS/[facility]) Essential (primary) hypertension (CMS/[facility]) Unspecified essential hypertension Class 2 obesity without serious comorbidity with body mass index (BMI) of 39.0 to 39.9 in adult, unspecified obesity type Lumbar spondylosis Lumbosacral spondylosis without myelopathy Acute pain of right shoulder Knee pain, unspecified chronicity, unspecified laterality COPD with exacerbation (CMS/[facility])- Primary Hypothyroidism, unspecified (CMS/[facility]) Essential (primary) hypertension ([facility]) Unspecified essential hypertension Anemia, unspecified type Type 2 diabetes mellitus with diabetic neuropathy, without long-term current use of insulin ([facility]) Frequent falls S/P total knee arthroplasty, right Primary localized osteoarthrosis of multiple sites Primary localized osteoarthrosis, other specified sites Presence of left artificial knee joint Localized osteoarthritis of right knee Mixed hyperlipidemia (/[facility]) Mixed hyperlipidemia Type 2 diabetes mellitus with diabetic neuropathy, without long-term current use of insulin (/[facility])- Primary documented in this encounter [facility]Evaluation [facility]* Diagnosis Type 2 diabetes mellitus with diabetic neuropathy, without long-term current use of insulin ([facility])- Primary Essential hypertension (CMS/[facility]) Unspecified essential hypertension Chronic pain of right knee Hypothyroidism, unspecified type (CMS/[facility]) Generalized anxiety disorder (/[facility]) Generalized anxiety disorder Hyperlipidemia, unspecified hyperlipidemia type (CMS/[facility]) Acute pain of left knee- Primary Chronic pain of right knee COPD with exacerbation (/[facility])- Primary Type 2 diabetes mellitus with diabetic neuropathy, without long-term current use of insulin ([facility]) Medicare annual wellness visit, subsequent Injury of left knee, initial encounter- Primary Fall, initial encounter Primary localized osteoarthrosis of multiple sites Primary localized osteoarthrosis, other specified sites Chronic pain of both knees- Primary Type 2 diabetes mellitus with diabetic neuropathy, unspecified (CMS/HCC) Essential (primary) hypertension (CMS/HCC) Unspecified essential hypertension Anxiety disorder, unspecified Hyperlipidemia, unspecified hyperlipidemia type (CMS/[facility]) Hypothyroidism, unspecified (CMS/HCC) Essential hypertension (CMS/HCC) Unspecified essential hypertension Other specified anxiety disorders Type 2 diabetes mellitus with diabetic neuropathy, without long-term current use of insulin (CMS/[facility]) Chronic obstructive pulmonary disease with acute exacerbation (CMS/[facility]) Diabetic neuropathy, painful (CMS/[facility])- Primary Type II or unspecified type diabetes mellitus with neurological manifestations, not stated as uncontrolled Type 2 diabetes mellitus with diabetic neuropathy, unspecified (CMS/[facility]) COPD with exacerbation (CMS/[facility]) Essential (primary) hypertension (CMS/[facility]) Unspecified essential hypertension Class 2 obesity without serious comorbidity with body mass index (BMI) of 39.0 to 39.9 in adult, unspecified obesity type Lumbar spondylosis Lumbosacral spondylosis without myelopathy Acute pain of right shoulder Knee pain, unspecified chronicity, unspecified laterality COPD with exacerbation (CMS/[facility])- Primary Hypothyroidism, unspecified (CMS/[facility]) Essential (primary) hypertension ([facility]) Unspecified essential hypertension Anemia, unspecified type Type 2 diabetes mellitus with diabetic neuropathy, without long-term current use of insulin ([facility]) Frequent falls S/P total knee arthroplasty, right Primary localized osteoarthrosis of multiple sites Primary localized osteoarthrosis, other specified sites Presence of left artificial knee joint Localized osteoarthritis of right knee Mixed hyperlipidemia (CMS/[facility]) Mixed hyperlipidemia Anemia, unspecified type- Primary documented in this encounter [facility]* Diagnosis Type 2 diabetes mellitus with diabetic neuropathy, without long-term current use of insulin ([facility])- Primary Essential hypertension (CMS/[facility]) Unspecified essential hypertension Chronic pain of right knee Hypothyroidism, unspecified type (CMS/[facility]) Generalized anxiety disorder (CMS/[facility]) Generalized anxiety disorder Hyperlipidemia, unspecified hyperlipidemia type (CMS/[facility]) Acute pain of left knee- Primary Chronic pain of right knee COPD with exacerbation ([facility])- Primary Type 2 diabetes mellitus with diabetic neuropathy, without long-term current use of insulin ([facility]) Medicare annual wellness visit, subsequent Injury [...] Chronic obstructive pulmonary disease with acute exacerbation (CMS/[facility]) Diabetic neuropathy, painful (CMS/[facility])- Primary Type II or unspecified type [...] neuropathy, without long-term current use of insulin (CMS/[facility]) Frequent falls S/P total knee arthroplasty, right Primary localized osteoarthrosis of multiple sites Primary localized osteoarthrosis, other specified sites Presence of left artificial knee joint Localized osteoarthritis of right knee Mixed hyperlipidemia (CMS/HCC) Mixed hyperlipidemia Lumbar spondylosis Lumbosacral spondylosis without myelopathy Acute pain of right shoulder Knee pain, unspecified chronicity, unspecified laterality documented in this encounter [facility]Evaluation note* Diagnosis Type 2 diabetes mellitus with diabetic neuropathy, without long-term current use of insulin (CMS/HCC)- Primary Essential hypertension (CMS/HCC) Unspecified essential hypertension Chronic pain of right knee Hypothyroidism, unspecified type (CMS/HCC) Generalized anxiety disorder (CMS/HCC) Generalized anxiety disorder Hyperlipidemia, unspecified hyperlipidemia type (CMS/HCC) Acute pain of left knee- Primary Chronic pain of right knee COPD with exacerbation (CMS/[facility])- Primary Type 2 diabetes mellitus with diabetic neuropathy, without long-term current use of insulin (CMS/[facility]) Medicare annual wellness visit, subsequent Injury [...] neuropathy, without long-term current use of insulin (CMS/[facility]) Chronic obstructive pulmonary disease with acute [...] Localized osteoarthritis of right knee Mixed hyperlipidemia (CMS/[facility]) Mixed hyperlipidemia Difficulty walking- Primary Difficulty [...] of both feet documented in this encounter [facility]Evaluation note* Diagnosis Type 2 diabetes mellitus with diabetic neuropathy, without long-term current use of insulin (CMS/HCC)- Primary Essential hypertension (CMS/HCC) Unspecified essential hypertension Chronic pain of right knee Hypothyroidism, unspecified type (CMS/HCC) Generalized anxiety disorder ([facility]) Generalized anxiety disorder Hyperlipidemia, unspecified hyperlipidemia type ([facility]) Acute pain of left knee- Primary Chronic pain of right knee COPD with exacerbation ([facility])- Primary Type 2 diabetes mellitus with diabetic neuropathy, without long-term current use of insulin ([facility]) Medicare annual wellness visit, subsequent Injury of left knee, initial encounter- Primary Fall, initial encounter Primary localized osteoarthrosis of multiple sites Primary localized osteoarthrosis, other specified sites Chronic pain of both knees- Primary Type 2 diabetes mellitus with diabetic neuropathy, unspecified (CMS/[facility]) Essential (primary) hypertension ([facility]) Unspecified essential hypertension Anxiety disorder, unspecified Hyperlipidemia, unspecified hyperlipidemia type ([facility]) Hypothyroidism, unspecified ([facility]) Essential hypertension ([facility]) Unspecified essential hypertension Other specified anxiety disorders Type 2 diabetes mellitus with diabetic neuropathy, without long-term current use of insulin ([facility]) Chronic obstructive pulmonary disease with acute exacerbation ([facility]) Diabetic neuropathy, painful ([facility])- Primary Type II or unspecified type diabetes mellitus with neurological manifestations, not stated as uncontrolled Type 2 diabetes mellitus with diabetic neuropathy, unspecified (CMS/[facility]) COPD with exacerbation ([facility]) Essential (primary) hypertension ([facility]) Unspecified essential hypertension Class 2 obesity without serious comorbidity with body mass index (BMI) of 39.0 to 39.9 in adult, unspecified obesity type Lumbar spondylosis Lumbosacral spondylosis without myelopathy Acute pain of right shoulder Knee pain, unspecified chronicity, unspecified laterality COPD with exacerbation ([facility])- Primary Hypothyroidism, unspecified ([facility]) Essential (primary) hypertension ([facility]) Unspecified essential hypertension Anemia, unspecified type Type 2 diabetes mellitus with diabetic neuropathy, without long-term current use of insulin ([facility]) Frequent falls S/P total knee arthroplasty, right Primary localized osteoarthrosis of multiple sites Primary localized osteoarthrosis, other specified sites Presence of left artificial knee joint Localized osteoarthritis of right knee Mixed hyperlipidemia ([facility]) Mixed hyperlipidemia Diabetes mellitus due to underlying condition with diabetic polyneuropathy, with long-term current use of insulin ([facility])- Primary Onychomycosis Dermatophytosis of nail Toe pain, left Pain in soft tissues of limb documented in this encounter [facility] HealthcareEvaluation note* Diagnosis Type 2 diabetes mellitus with diabetic neuropathy, without long-term current use of insulin (CMS/[facility])- Primary Essential hypertension (CMS/HCC) Unspecified essential hypertension Chronic pain of right knee Hypothyroidism, unspecified type (CMS/HCC) Generalized anxiety disorder (CMS/HCC) Generalized anxiety disorder Hyperlipidemia, unspecified hyperlipidemia type (CMS/HCC) Acute pain of left knee- Primary Chronic pain of right knee COPD with exacerbation (CMS/HCC)- Primary Type 2 diabetes mellitus with diabetic neuropathy, without long-term current use of insulin ([facility]) Medicare annual wellness visit, subsequent Injury [...] neuropathy, without long-term current use of insulin ([facility]) Chronic obstructive pulmonary disease with acute exacerbation (CMS/[facility]) Diabetic neuropathy, painful (CMS/[facility])- Primary Type II or unspecified type [...] neuropathy, without long-term current use of insulin (CMS/[facility]) Frequent falls S/P total knee arthroplasty, right Primary localized osteoarthrosis of multiple sites Primary localized osteoarthrosis, other specified sites Presence of left artificial knee joint Localized osteoarthritis of right knee Mixed hyperlipidemia (CMS/HCC) Mixed hyperlipidemia Acute upper respiratory infection, unspecified documented in this encounter [facility]* Diagnosis Type 2 diabetes mellitus with diabetic neuropathy, without long-term current use of insulin ([facility])- Primary Essential hypertension (CMS/[facility]) Unspecified essential hypertension Chronic pain of right knee Hypothyroidism, unspecified type (CMS/[facility]) Generalized anxiety disorder ([facility]) Generalized anxiety disorder Hyperlipidemia, unspecified hyperlipidemia type (CMS/[facility]) Acute pain of left knee- Primary Chronic pain of right knee COPD with exacerbation ([facility])- Primary Type 2 diabetes mellitus with diabetic neuropathy, without long-term current use of insulin ([facility]) Medicare annual wellness visit, subsequent Injury of left knee, initial encounter- Primary Fall, initial encounter Primary localized osteoarthrosis of multiple sites Primary localized osteoarthrosis, other specified sites Chronic pain of both knees- Primary Type 2 diabetes mellitus with diabetic neuropathy, unspecified (CMS/[facility]) Essential (primary) hypertension ([facility]) Unspecified essential hypertension Anxiety disorder, unspecified Hyperlipidemia, unspecified hyperlipidemia type (/[facility]) Hypothyroidism, unspecified (/[facility]) Essential hypertension ([facility]) Unspecified essential hypertension Other specified anxiety disorders Type 2 diabetes mellitus with diabetic neuropathy, without long-term current use of insulin ([facility]) Chronic obstructive pulmonary disease with acute exacerbation ([facility]) Diabetic neuropathy, painful ([facility])- Primary Type II or unspecified type diabetes mellitus with neurological manifestations, not stated as uncontrolled Type 2 diabetes mellitus with diabetic neuropathy, unspecified (CMS/[facility]) COPD with exacerbation ([facility]) Essential (primary) hypertension ([facility] [facility]) Unspecified essential hypertension Class 2 obesity without serious comorbidity with body mass index (BMI) of 39.0 to 39.9 in adult, unspecified obesity type Lumbar spondylosis Lumbosacral spondylosis without myelopathy Acute pain of right shoulder Knee pain, unspecified chronicity, unspecified laterality COPD with exacerbation (CMS/[facility])- Primary Hypothyroidism, unspecified (CMS/[facility]) Essential (primary) hypertension ([facility]/HCC) Unspecified essential hypertension Anemia, unspecified type Type 2 diabetes mellitus with diabetic neuropathy, without long-term current use of insulin ([facility]) Frequent falls S/P total knee arthroplasty, right Primary localized osteoarthrosis of multiple sites Primary localized osteoarthrosis, other specified sites Presence of left artificial knee joint Localized osteoarthritis of right knee Mixed hyperlipidemia (CMS/[facility]) Mixed hyperlipidemia Need for immunization against [...] chronicity, unspecified laterality documented in this encounter [facility] HealthcareEvaluation note* Diagnosis Type 2 diabetes mellitus [...] neuropathy, without long-term current use of insulin ([facility]) Frequent falls S/P total knee arthroplasty, right Primary localized osteoarthrosis of multiple sites Primary localized osteoarthrosis, other specified sites Presence of left artificial knee joint Localized osteoarthritis of right knee Mixed hyperlipidemia ([facility]) Mixed hyperlipidemia Need for immunization against influenza- Primary Need for prophylactic vaccination and inoculation against influenza Type 2 diabetes mellitus with diabetic neuropathy, without long-term current use of insulin ([facility]) Essential (primary) hypertension ([facility] Unspecified essential hypertension COPD with exacerbation ([facility] Mixed hyperlipidemia ([facility]) Mixed hyperlipidemia Lumbar spondylosis Lumbosacral spondylosis [...] polyneuropathy, with long-term current use of insulin ([facility])- Primary Onychomycosis Dermatophytosis of nail Toe pain, left Pain in soft tissues of limb Xerosis cutis Other specified disease of sebaceous glands documented in this encounter [facility] note* Diagnosis Mixed hyperlipidemia ([facility])- Primary Mixed hyperlipidemia Diabetes mellitus due to underlying condition with diabetic polyneuropathy, with long-term current use of insulin ([facility])- Primary Onychomycosis Dermatophytosis of nail Toe pain, left Pain in soft tissues of limb Xerosis cutis Other specified disease of sebaceous glands documented in this encounter [facility]* Diagnosis COPD with exacerbation ([facility])- Primary documented in this encounter [facility]* Diagnosis Diabetic neuropathy, painful ([facility])- Primary Type II or unspecified type diabetes mellitus with neurological manifestations, not stated as uncontrolled Type 2 diabetes mellitus with diabetic neuropathy, unspecified ([facility]) COPD with exacerbation ([facility] Essential (primary) hypertension ([facility]) Unspecified essential hypertension Class 2 obesity without serious comorbidity with body mass index (BMI) of 39.0 to 39.9 in adult, unspecified obesity type Lumbar spondylosis Lumbosacral spondylosis without myelopathy Acute pain of right shoulder Knee pain, unspecified chronicity, unspecified laterality documented in this encounter [facility] HealthcareEvaluation note* Diagnosis Lumbar spondylosis Lumbosacral spondylosis without myelopathy Acute pain of right shoulder Knee pain, unspecified chronicity, unspecified laterality documented in this encounter [facility] HealthcareEvaluation note* Diagnosis Type 2 diabetes mellitus [...] neuropathy, without long-term current use of insulin (CMS/[facility]) Essential (primary) hypertension (CMS/HCC) Unspecified essential hypertension COPD with exacerbation (CMS/HCC) Mixed hyperlipidemia (CMS/HCC) Mixed hyperlipidemia Lumbar spondylosis Lumbosacral spondylosis without myelopathy Acute pain of right shoulder Knee pain, unspecified chronicity, unspecified laterality Mixed hyperlipidemia (CMS/[facility]) Mixed hyperlipidemia documented in this encounter [facility] HealthcareEvaluation note* Diagnosis Type 2 diabetes mellitus with diabetic neuropathy, without long-term current use of insulin (CMS/[facility])- Primary Essential hypertension (CMS/HCC) Unspecified essential hypertension Chronic pain of right knee Hypothyroidism, unspecified type (CMS/HCC) Generalized anxiety disorder (CMS/[facility]) Generalized anxiety disorder Hyperlipidemia, unspecified hyperlipidemia type (CMS/HCC) Acute pain of left knee- Primary Chronic pain of right knee COPD with exacerbation (CMS/HCC)- Primary Type 2 diabetes mellitus with diabetic neuropathy, without long-term current use of insulin (/[facility]) Medicare annual wellness visit, subsequent Injury [...] neuropathy, without long-term current use of insulin (/[facility]) Chronic obstructive pulmonary disease with acute [...] of insulin (CMS/HCC) documented in this encounter [facility] HealthcareEvaluation note* Diagnosis Type 2 diabetes mellitus with diabetic neuropathy, without long-term current use of insulin (CMS/[facility])- Primary Essential hypertension (CMS/HCC) Unspecified essential [...] Anxiety disorder, unspecified Hyperlipidemia, unspecified hyperlipidemia type (CMS/[facility]) Hypothyroidism, unspecified (CMS/[facility]) Essential hypertension ([facility]/HCC) Unspecified essential hypertension Other specified anxiety disorders Type 2 diabetes mellitus with diabetic neuropathy, without long-term current use of insulin ([facility]) Chronic obstructive pulmonary disease with acute exacerbation ([facility]) Diabetic neuropathy, painful ([facility])- Primary Type II or unspecified type diabetes mellitus with neurological manifestations, not stated as uncontrolled Type 2 diabetes mellitus with diabetic neuropathy, unspecified (CMS/[facility]) COPD with exacerbation ([facility]) Essential (primary) hypertension ([facility]) Unspecified essential hypertension Class 2 obesity without serious comorbidity with body mass index (BMI) of 39.0 to 39.9 in adult, unspecified obesity type Lumbar spondylosis Lumbosacral spondylosis without myelopathy Acute pain of right shoulder Knee pain, unspecified chronicity, unspecified laterality COPD with exacerbation ([facility])- Primary Hypothyroidism, unspecified ([facility]) Essential (primary) hypertension ([facility]) Unspecified essential hypertension Anemia, unspecified type Type 2 diabetes mellitus with diabetic neuropathy, without long-term current use of insulin ([facility]) Frequent falls S/P total knee arthroplasty, right Primary localized osteoarthrosis of multiple sites Primary localized osteoarthrosis, other specified sites Presence of left artificial knee joint Localized osteoarthritis of right knee Mixed hyperlipidemia ([facility]) Mixed hyperlipidemia Need for immunization against influenza- Primary Need for prophylactic vaccination and inoculation against influenza Type 2 diabetes mellitus with diabetic neuropathy, without long-term current use of insulin ([facility]) Essential (primary) hypertension ([facility] Unspecified essential hypertension COPD with exacerbation ([facility]) Mixed hyperlipidemia ([facility]) Mixed hyperlipidemia Lumbar spondylosis Lumbosacral spondylosis without myelopathy Acute pain of right shoulder Knee pain, unspecified chronicity, unspecified laterality Essential (primary) hypertension ([facility]) Unspecified essential hypertension Anxiety disorder, unspecified [...] middle ear musculature [facility]* Diagnosis Type 2 diabetes mellitus with [...] unspecified chronicity, unspecified laterality COPD with exacerbation (CMS/[facility])- Primary Hypothyroidism, unspecified (CMS/HCC) Essential (primary) hypertension (CMS/HCC) Unspecified essential hypertension Anemia, unspecified type Type 2 diabetes mellitus with diabetic neuropathy, without long-term current use of insulin (CMS/[facility]) Frequent falls S/P total knee arthroplasty, right Primary localized osteoarthrosis of multiple sites Primary localized osteoarthrosis, other specified sites Presence of left artificial knee joint Localized osteoarthritis of right knee Mixed hyperlipidemia (CMS/[facility]) Mixed hyperlipidemia Need for immunization against influenza- Primary Need for prophylactic vaccination and inoculation against influenza Type 2 diabetes mellitus with diabetic neuropathy, without long-term current use of insulin (/[facility]) Essential (primary) hypertension (CMS/HCC) Unspecified essential hypertension COPD with exacerbation (/[facility]) Mixed hyperlipidemia (CMS/[facility]) Mixed hyperlipidemia Lumbar spondylosis Lumbosacral spondylosis without myelopathy Acute pain of right shoulder Knee pain, unspecified chronicity, unspecified laterality Lumbar spondylosis Lumbosacral spondylosis without myelopathy Acute pain of right shoulder Knee pain, unspecified chronicity, unspecified laterality Diabetes mellitus due to underlying condition with diabetic polyneuropathy, with long-term current use of insulin (/[facility])- Primary Onychomycosis Dermatophytosis of nail Toe pain, left Pain in soft tissues of limb documented in this encounter [facility] HealthcareEvaluation note* Diagnosis Type 2 diabetes mellitus with diabetic neuropathy, without long-term current use of insulin (/[facility])- Primary Essential hypertension (CMS/HCC) Unspecified essential hypertension Chronic pain of right knee Hypothyroidism, unspecified type (CMS/HCC) Generalized anxiety disorder (CMS/[facility]) Generalized anxiety disorder Hyperlipidemia, unspecified hyperlipidemia type (CMS/HCC) Acute pain of left knee- Primary Chronic pain of right knee COPD with exacerbation (CMS/[facility])- Primary Type 2 diabetes mellitus with diabetic neuropathy, without long-term current use of insulin (/[facility]) Medicare annual wellness visit, subsequent Injury of left knee, initial encounter- Primary Fall, initial encounter Primary localized osteoarthrosis of multiple sites Primary localized osteoarthrosis, other specified sites Chronic pain of both knees- Primary Type 2 diabetes mellitus with diabetic neuropathy, unspecified (CMS/[facility]) Essential (primary) hypertension (CMS/HCC) Unspecified essential hypertension Anxiety disorder, unspecified Hyperlipidemia, unspecified hyperlipidemia type (CMS/HCC) Hypothyroidism, unspecified (CMS/HCC) Essential hypertension (CMS/HCC) Unspecified essential hypertension Other specified anxiety disorders Type 2 diabetes mellitus with diabetic neuropathy, without long-term current use of insulin (CMS/[facility]) Chronic obstructive pulmonary disease with acute exacerbation (CMS/[facility]) Diabetic neuropathy, painful (CMS/[facility])- Primary Type II or unspecified type diabetes mellitus with neurological manifestations, not stated as uncontrolled Type 2 diabetes mellitus with diabetic neuropathy, unspecified (CMS/[facility]) COPD with exacerbation (CMS/[facility]) Essential (primary) hypertension (CMS/[facility]) Unspecified essential hypertension Class 2 obesity without serious comorbidity with body mass index (BMI) of 39.0 to 39.9 in adult, unspecified obesity type Lumbar spondylosis Lumbosacral spondylosis without myelopathy Acute pain of right shoulder Knee pain, unspecified chronicity, unspecified laterality COPD with exacerbation (CMS/[facility])- Primary Hypothyroidism, unspecified (CMS/[facility]) Essential (primary) hypertension (CMS/HCC) Unspecified essential hypertension Anemia, unspecified type Type 2 diabetes mellitus with diabetic neuropathy, without long-term current use of insulin (CMS/[facility]) Frequent falls S/P total knee arthroplasty, right Primary localized osteoarthrosis of multiple sites Primary localized osteoarthrosis, other specified sites Presence of left artificial knee joint Localized osteoarthritis of right knee Mixed hyperlipidemia (CMS/[facility]) Mixed hyperlipidemia Need for immunization against influenza- Primary Need for prophylactic vaccination and inoculation against influenza Type 2 diabetes mellitus with diabetic neuropathy, without long-term current use of insulin (CMS/[facility]) Essential (primary) hypertension (CMS/HCC) Unspecified essential hypertension COPD with exacerbation (CMS/[facility]) Mixed hyperlipidemia (CMS/[facility]) Mixed hyperlipidemia Lumbar spondylosis Lumbosacral spondylosis [...] neuropathy, without long-term current use of insulin ([facility])- Primary Essential hypertension ([facility]) Unspecified essential hypertension Chronic pain of right knee Hypothyroidism, unspecified type ([facility]) Generalized anxiety disorder ([facility]) Generalized anxiety disorder Hyperlipidemia, unspecified hyperlipidemia type ([facility]) Acute pain of left knee- Primary Chronic pain of right knee COPD with exacerbation ([facility])- Primary Type 2 diabetes mellitus with diabetic neuropathy, without long-term current use of insulin ([facility]) Medicare annual wellness visit, subsequent Injury of left knee, initial encounter- Primary Fall, initial encounter Primary localized osteoarthrosis of multiple sites Primary localized osteoarthrosis, other specified sites Chronic pain of both knees- Primary Type 2 diabetes mellitus with diabetic neuropathy, unspecified ([facility]) Essential (primary) hypertension ([facility]) Unspecified essential hypertension Anxiety disorder, unspecified Hyperlipidemia, unspecified hyperlipidemia type ([facility]) Hypothyroidism, unspecified ([facility]) Essential hypertension ([facility]) Unspecified essential hypertension Other specified anxiety disorders Type 2 diabetes mellitus with diabetic neuropathy, without long-term current use of insulin ([facility]) Chronic obstructive pulmonary disease with acute exacerbation ([facility]) Diabetic neuropathy, painful ([facility])- Primary Type II or unspecified type diabetes mellitus with neurological manifestations, not stated as uncontrolled Type 2 diabetes mellitus with diabetic neuropathy, unspecified ([facility]) COPD with exacerbation ([facility] Essential (primary) hypertension ([facility]) Unspecified essential hypertension Class 2 obesity without serious comorbidity with body mass index (BMI) of 39.0 to 39.9 in adult, unspecified obesity type Lumbar spondylosis Lumbosacral spondylosis without myelopathy Acute pain of right shoulder Knee pain, unspecified chronicity, unspecified laterality COPD with exacerbation ([facility])- Primary Hypothyroidism, unspecified (CMS/[facility]) Essential (primary) hypertension ([facility]) Unspecified essential hypertension Anemia, unspecified type Type 2 diabetes mellitus with diabetic neuropathy, without long-term current use of insulin ([facility]) Frequent falls S/P total knee arthroplasty, right Primary localized osteoarthrosis of multiple sites Primary localized osteoarthrosis, other specified sites Presence of left artificial knee joint Localized osteoarthritis of right knee Mixed hyperlipidemia ([facility]) Mixed hyperlipidemia Need for immunization against [...] neuropathy, without long-term current use of insulin (CMS/[facility]) documented in this encounter [facility] HealthcareEvaluation note* Diagnosis Type 2 diabetes mellitus [...] neuropathy, without long-term current use of insulin (/[facility]) Medicare annual wellness visit, subsequent Injury [...] neuropathy, without long-term current use of insulin (/[facility]) Chronic obstructive pulmonary disease with acute exacerbation (CMS/[facility]) Diabetic neuropathy, painful (CMS/HCC)- Primary Type [...] respiratory infection, unspecified documented in this encounter [facility] HealthcareEvaluation note* Diagnosis Type 2 diabetes mellitus [...] neuropathy, without long-term current use of insulin (/[facility]) Essential (primary) hypertension (/) Unspecified essential hypertension COPD with exacerbation (/) Mixed hyperlipidemia (/) Mixed hyperlipidemia Lumbar spondylosis Lumbosacral spondylosis without myelopathy Acute pain of right shoulder Knee pain, unspecified chronicity, unspecified laterality Lumbar spondylosis Lumbosacral spondylosis without myelopathy Acute pain of right shoulder Knee pain, unspecified chronicity, unspecified laterality Anxiety disorder, unspecified documented in this encounter [facility] HealthcareEvaluation note* Diagnosis Type 2 diabetes [...] neuropathy, without long-term current use of insulin (/[facility]) Medicare annual wellness visit, subsequent Injury of left knee, initial encounter- Primary Fall, initial encounter Primary localized osteoarthrosis of multiple sites Primary localized osteoarthrosis, other specified sites Chronic pain of both knees- Primary Type 2 diabetes mellitus with diabetic neuropathy, unspecified ([facility]) Essential (primary) hypertension ([facility]) Unspecified essential hypertension Anxiety disorder, unspecified Hyperlipidemia, unspecified hyperlipidemia type ([facility]) Hypothyroidism, unspecified ([facility]) Essential hypertension ([facility]) Unspecified essential hypertension Other specified anxiety disorders Type 2 diabetes mellitus with diabetic neuropathy, without long-term current use of insulin ([facility]) Chronic obstructive pulmonary disease with acute exacerbation ([facility]) Diabetic neuropathy, painful ([facility])- Primary Type II or unspecified type diabetes mellitus with neurological manifestations, not stated as uncontrolled Type 2 diabetes mellitus with diabetic neuropathy, unspecified ([facility]) COPD with exacerbation ([facility]) Essential (primary) hypertension ([facility]) Unspecified essential hypertension Class 2 obesity without serious comorbidity with body mass index (BMI) of 39.0 to 39.9 in adult, unspecified obesity type Lumbar spondylosis Lumbosacral spondylosis without myelopathy Acute pain of right shoulder Knee pain, unspecified chronicity, unspecified laterality COPD with exacerbation ([facility])- Primary Hypothyroidism, unspecified ([facility]) Essential (primary) hypertension ([facility]) Unspecified essential hypertension Anemia, unspecified type Type 2 diabetes mellitus with diabetic neuropathy, without long-term current use of insulin ([facility]) Frequent falls S/P total knee arthroplasty, right Primary localized osteoarthrosis of multiple sites Primary localized osteoarthrosis, other specified sites Presence of left artificial knee joint Localized osteoarthritis of right knee Mixed hyperlipidemia (/[facility]) Mixed hyperlipidemia Need for immunization against influenza- Primary Need for prophylactic vaccination and inoculation against influenza Type 2 diabetes mellitus with diabetic neuropathy, without long-term current use of insulin ([facility]) Essential (primary) hypertension ([facility]) Unspecified essential hypertension COPD with exacerbation ([facility]) Mixed hyperlipidemia ([facility]) Mixed hyperlipidemia Lumbar spondylosis Lumbosacral spondylosis [...] pain, unspecified chronicity, unspecified laterality Mixed hyperlipidemia ([facility]) Mixed hyperlipidemia Medication refill Issue of repeat prescriptions Diabetes mellitus due to underlying condition with diabetic polyneuropathy, with long-term current use of insulin (/[facility])- Primary Onychomycosis Dermatophytosis of nail Toe pain, left Pain in soft tissues of limb documented in this encounter [facility] HealthcareEvaluation note* Diagnosis Type 2 diabetes mellitus with diabetic neuropathy, without long-term current use of insulin (/[facility])- Primary Essential hypertension (CMS/HCC) Unspecified essential hypertension Chronic pain of right knee Hypothyroidism, unspecified type (/[facility]) Generalized anxiety disorder (/[facility]) Generalized anxiety disorder Hyperlipidemia, unspecified hyperlipidemia type (/[facility]) Acute pain of left knee- Primary Chronic pain of right knee COPD with exacerbation (/[facility])- Primary Type 2 diabetes mellitus with diabetic neuropathy, without long-term current use of insulin (/[facility]) Medicare annual wellness visit, subsequent Injury [...] neuropathy, without long-term current use of insulin (/[facility]) Chronic obstructive pulmonary disease with acute exacerbation (/[facility]) Diabetic neuropathy, painful (CMS/HCC)- Primary Type [...] unspecified chronicity, unspecified laterality COPD with exacerbation (CMS/[facility])- Primary Hypothyroidism, unspecified (CMS/HCC) Essential (primary) hypertension (CMS/HCC) Unspecified essential hypertension Anemia, unspecified type Type 2 diabetes mellitus with diabetic neuropathy, without long-term current use of insulin ([facility]) Frequent falls S/P total knee arthroplasty, right Primary localized osteoarthrosis of multiple sites Primary localized osteoarthrosis, other specified sites Presence of left artificial knee joint Localized osteoarthritis of right knee Mixed hyperlipidemia (CMS/HCC) Mixed hyperlipidemia Need for immunization against influenza- Primary Need for prophylactic vaccination and inoculation against influenza Type 2 diabetes mellitus with diabetic neuropathy, without long-term current use of insulin (/[facility]) Essential (primary) hypertension (CMS/HCC) Unspecified essential [...] polyneuropathy, with long-term current use of insulin (/[facility])- Primary Onychomycosis Dermatophytosis of nail Toe pain, left Pain in soft tissues of limb documented in this encounter [facility] HealthcareEvaluation note* Diagnosis Pre-operative clearance- Primary [...] Primary Generalized pain documented in this encounter [facility] note* Diagnosis Type 2 diabetes mellitus with [...] unspecified chronicity, unspecified laterality COPD with exacerbation (CMS/[facility])- Primary Hypothyroidism, unspecified (CMS/[facility]) Essential (primary) hypertension (CMS/HCC) Unspecified essential hypertension Anemia, unspecified type Type 2 diabetes mellitus with diabetic neuropathy, without long-term current use of insulin (CMS/[facility]) Frequent falls S/P total knee arthroplasty, right Primary localized osteoarthrosis of multiple sites Primary localized osteoarthrosis, other specified sites Presence of left artificial knee joint Localized osteoarthritis of right knee Mixed hyperlipidemia (CMS/[facility]) Mixed hyperlipidemia Need for immunization against influenza- Primary Need for prophylactic vaccination and inoculation against influenza Type 2 diabetes mellitus with diabetic neuropathy, without long-term current use of insulin (CMS/[facility]) Essential (primary) hypertension (CMS/HCC) Unspecified essential hypertension COPD with exacerbation (CMS/[facility]) Mixed hyperlipidemia (CMS/[facility]) Mixed hyperlipidemia Lumbar spondylosis Lumbosacral spondylosis without myelopathy Acute pain of right shoulder Knee pain, unspecified chronicity, unspecified laterality Lumbar spondylosis Lumbosacral spondylosis without myelopathy Acute pain of right shoulder Knee pain, unspecified chronicity, unspecified laterality Essential (primary) hypertension (CMS/HCC)- Primary Unspecified essential hypertension Other specified anxiety disorders Type 2 diabetes mellitus with diabetic neuropathy, without long-term current use of insulin ([facility]) Type 2 diabetes mellitus with diabetic neuropathy, unspecified (CMS/[facility]) Anxiety disorder, unspecified Essential hypertension (CMS/HCC) [...] ear implant 10/2019 Hospitalization History See Above 5k Fans Other History of Present illness Narrative* Grant [...] 0 min Stress: Stress Concern Present (02/02/2024) [employer] - Occupational Stress Questionnaire Feeling of Stress : Very much Social Connections: Moderately Isolated (02/02/2024) Social Connection and Isolation Panel [NHANES] Frequency of Communication with Friends and Family: Twice a week Frequency of Social Gatherings with Friends and Family: Twice a week Attends Bahai Services: Never Active Member of Clubs or [...] pulses to the left foot NEURO: 5.07 Silvis Krystal monofilament test diminished to forefoot left 125Hz tuning fork diminished to 1st MPJ left ORTHO: Positive pain on palpation to toenails of the left 1,2,3,4,5 toes ASSESSMENT 1. Diabetes mellitus due to underlying condition with diabetic polyneuropathy, with long-term current use of insulin ([facility]) 2. Onychomycosis 3. Toe pain, left [...] gear. Grant Sheth DPM [facility] No data available for this section [facility] No data available for this section [facility] for referral (narrative)* Diagnostic Procedure Only (Routine) - New Request Specialty Diagnoses / Procedures Referred By Contac t Referred To Contact XR IMAGING Diagnoses Pyogenic arthritis of left knee joint, due to unspecified organism (HCC) Procedures XR KNEE GENERAL 4V AP BOTH/PA BOTH/LAT/MERC BILATERAL RADIOLOGIC EXAM KNEE COMPLETE 4/MORE VIEWS Roberto Brito PA-C [address] [id number] Xr [facility] [place] [address] Referral ID Status Reason Start Date Expiration Date Visits Requested Visits Authorized [id number] New Request Auto-Generat ed Referral 07/13/2024 08/12/2025 1 1 [facility] for referral (narrative)* Diagnostic Procedure Only (Routine) - Closed Specialty Diagnoses / Procedures Referred By Contac t Referred To Contact XR IMAGING Diagnoses Pyogenic arthritis of left knee joint, due to unspecified organism (HCC) Procedures XR KNEE GENERAL 4V AP BOTH/PA BOTH/LAT/MERC BILATERAL RADIOLOGIC EXAM KNEE COMPLETE 4/MORE VIEWS Roberto Brito PA-C [address] [place] [address] Xr Imaging [place] [address] Referral ID Status Reason Start Date Expiration Date V isits Requested Visits Authorized [id number] Closed Auto-Generate d Referral 07/14/2024 10/18/2024 1 1 [facility] for visit Narrative* Rehabilitation - Outpatient (Routine) - Authorized Specialty Diagnoses / Procedures Referred By Contac t Referred To Contact Physical Therapy Diagnoses Frequent falls S/P total knee arthroplasty, right Primary localized osteoarthrosis of multiple sites Presence of left artificial knee joint Localized osteoarthritis of right knee Procedures AR OFFICE/OUTPATIENT NEW HIGH MDM 60 MINUTES Daria Noel, NUNU [address] [facility] [place] [address] Phone: tel: fax: Marco Izquierdo, PT [address] [facility] [place] [address] Phone: tel: fax: Referral ID Status Reason Start Date Expiration Date Visits Requested Visits Authorized [id number] Authorized Specialty Services Required 4 01/29/2025 99 [...] FoundDocuments on File Type Date 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 Advance Directive(s) 07/12/2021 10:29 AM [...] Shaikh Grove MD [address] [place] [address] Referral ID Status Reason Start Date Expiration Date V isits Requested Visits Authorized [id number] Pending Review 1 1 Specialty Diagnoses / Procedures Referred By Contac t Referred To Contact Allergy Diagnoses Acute recurrent frontal sinusitis Procedures CONSULT TO ALLERGY/IMMUNOLOGY OFFICE/OUTPATIENT [facility] 60-74 MINUTES Nicholas Jenkins MD [address] [place] [address] Referral ID Status Reason Start Date Expiration Date Visits Requested Visits Authorized [id number] Pending Review PCP Requested Referral 10/31/2022 10/31/2023 1 1 Specialty Diagnoses / Procedures Referred By Contac t Referred To Contact Ent - Otolaryngology Diagnoses Acute recurrent frontal sinusitis Procedures CONSULT TO ENT OFFICE/OUTPATIENT [facility] 60-74 MINUTES Partha Jackson PA-C [address] [place] [address] Referral ID Status Reason Start Date Expiration Date Visits Requested Visits Authorized [id number] Pending Review PCP Requested Referral 08/19/2022 08/19/2023 [...] and content) DATE CREATED AUTHOR 04/12/[address] [facility] DATE CREATED AUTHOR AUTHOR'S ORGANIZ ATION 02/25/2023 [facility] DATE CREATED AUTHOR AUTHOR'S ORGANIZ ATION 04/10/2023 [facility] DATE CREATED AUTHOR AUTHOR'S ORGANIZ ATION 04/10/2023 [employer] DATE CREATED AUTHOR AUTHOR'S ORGANIZ ATION 07/22/2023 [facility] DATE CREATED AUTHOR AUTHOR'S ORGANIZ ATION 11/27/2023 [facility] DATE CREATED AUTHOR AUTHOR'S ORGANIZ ATION 12/09/2023 Rony Stern [facility] DATE CREATED AUTHOR AUTHOR'S ORGANIZ ATION 02/18/2024 [facility] DATE CREATED AUTHOR AUTHOR'S ORGANIZ ATION 06/04/2024 [facility] DATE CREATED AUTHOR AUTHOR'S ORGANIZ ATION 07/05/[address] [facility] DATE CREATED AUTHOR AUTHOR'S ORGANIZ ATION 11/12/2024 [facility] DATE CREATED AUTHOR AUTHOR'S ORGANIZ ATION 12/17/2024 [facility]ical [facility] DATE CREATED AUTHOR AUTHOR'S ORGANIZ ATION 01/14/2025 [facility] Source Comments (unrecognize d section and content) In the event this informatio n is protected by the Federal Confidentiality of Alcohol and Drug Abuse Patient Records regulations: The Federal rules restrict any use of the information to criminally investigate or prosecute any alcohol or drug abuse patient.[facility] the event this information is protected by the Federal Confidentiality of Alcohol and Drug Abuse Patient Records regulations: The Federal rules restrict any use of the information to criminally investigate or prosecute any alcohol or drug abuse patient.[facility] Hospital[facility] the event this information is protected by the Federal Confidentiality of Alcohol and Drug Abuse Patient Records regulations: The Federal rules restrict any use of the information to criminally investigate or prosecute any alcohol or drug abuse patient.[facility] HospitalIn the event this information is protected by the Federal Confidentiality of Alcohol and Drug Abuse Patient Records regulations: The Federal rules restrict any use of the information to criminally investigate or prosecute any alcohol or drug abuse patient.[facility] Hospital[facility] the event this information is protected by the Federal Confidentiality of Alcohol and Drug Abuse Patient Records regulations: The Federal rules restrict any use of the information to criminally investigate or prosecute any alcohol or drug abuse patient.[facility] Hospital[facility] the event this information is protected by the Federal Confidentiality of Alcohol and Drug Abuse Patient Records regulations: The Federal rules restrict any use of the information to criminally investigate or prosecute any alcohol or drug abuse patient.[facility] HospitalIn the event this information is protected by the Federal Confidentiality of Alcohol and Drug Abuse Patient Records regulations: The Federal rules restrict any use of the information to criminally investigate or prosecute any alcohol or drug abuse patient.[facility] Hospital[facility] the event this information is protected by the Federal Confidentiality of Alcohol and Drug Abuse Patient Records regulations: The Federal rules restrict any use of the information to criminally investigate or prosecute any alcohol or drug abuse patient.[facility] HospitalIn the event this information is protected by the Federal Confidentiality of Alcohol and Drug Abuse Patient Records regulations: The Federal rules restrict any use of the information to criminally investigate or prosecute any alcohol or drug abuse patient.[facility] HospitalIn the event this information is protected by the Federal Confidentiality of Alcohol and Drug Abuse Patient Records regulations: The Federal rules restrict any use of the information to criminally investigate or prosecute any alcohol or drug abuse patient.[facility] HospitalIn the event this information is protected by the Federal Confidentiality of Alcohol and Drug Abuse Patient Records regulations: The Federal rules restrict any use of the information to criminally investigate or prosecute any alcohol or drug abuse patient.[facility] HospitalIn the event this information is protected by the Federal Confidentiality of Alcohol and Drug Abuse Patient Records regulations: The Federal rules restrict any use of the information to criminally investigate or prosecute any alcohol or drug abuse patient.[facility] HospitalIn the event this information is protected by the Federal Confidentiality of Alcohol and Drug Abuse Patient Records regulations: The Federal rules restrict any use of the information to criminally investigate or prosecute any alcohol or drug abuse patient.[facility] HospitalIn the event this information is protected by the Federal Confidentiality of Alcohol and Drug Abuse Patient Records regulations: The Federal rules restrict any use of the information to criminally investigate or prosecute any alcohol or drug abuse patient.[facility] HospitalIn the event this information is protected by the Federal Confidentiality of Alcohol and Drug Abuse Patient Records regulations: The Federal rules restrict any use of the information to criminally investigate or prosecute any alcohol or drug abuse patient.[facility] HospitalIn the event this information is protected by the Federal Confidentiality of Alcohol and Drug Abuse Patient Records regulations: The Federal rules restrict any use of the information to criminally investigate or prosecute any alcohol or drug abuse patient.[facility] HospitalIn the event this information is protected by the Federal Confidentiality of Alcohol and Drug Abuse Patient Records regulations: The Federal rules restrict any use of the information to criminally investigate or prosecute any alcohol or drug abuse patient.[facility] HospitalIn the event this information is protected by the Federal Confidentiality of Alcohol and Drug Abuse Patient Records regulations: The Federal rules restrict any use of the information to criminally investigate or prosecute any alcohol or drug abuse patient.[facility] HospitalIn the event this information is protected by the Federal Confidentiality of Alcohol and Drug Abuse Patient Records regulations: The Federal rules restrict any use of the information to criminally investigate or prosecute any alcohol or drug abuse patient.[facility] HospitalIn the event this information is protected by the Federal Confidentiality of Alcohol and Drug Abuse Patient Records regulations: The Federal rules restrict any use of the information to criminally investigate or prosecute any alcohol or drug abuse patient.[facility] Reason for Visit (unrecogniz ed section and content) Reason Onset Date Comments Refill Request 02/06/2022 Reason Comments Returning Patient's Call Reason Comments Follow Up Specialty Diagnoses / Procedures Referred By Jonathan santana Referred To Contact Diagnoses Other specified hearing loss, unspecified ear Procedures ADULT HEARING TEST/AUDIOGRAM COMPRE AUDIOMETRY THRESHOLD HOAL KOFI ADAMSIJ Gifty Ball MD [address] [place] [address] [facility] [address] [place] [address] Referral ID Status Reason Start Date Expiration Date V isits Requested Visits Authorized [id number] Closed Auto-Generate d Referral 12/17/2021 03/17/2022 1 [...] HIGH MDM 60-74 MINUTES Partha Jackson PA-C [address] [place] [address] Referral ID Status Reason Start Date Expiration Date Visits Requested Visits Authorized [id number] Pending Review PCP Requested Referral 08/19/2022 08/19/2023 1 1 Reason Comments Patient Question Orders Specialty Diagnoses / Procedures Referred By Contac t Referred To Contact Radiology / RADIO CT SCAN [facility] VONDA Diagnoses 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 Comments CT TEMP BONES WO IVCON Procedures CT WO BRISEYDA [address] Gifty Ball MD [address] [place] [address] Scan [facility] Vonda [address] [place] [address] Referral ID Status Reason Start Date Expiration Date Visits Re quested Visits Authorized [id number] Closed 03/06/2021 10/18/2021 1 1 Reason Onset Date Comments Refill Request 06/01/2023 Specialty Diagnoses / Procedures Referred By Contac t Referred To Contact [facility] [id number] [place] [address] Referral ID Status Reason Start Date Expiration Date Visits Re quested Visits Authorized [id number] 1 1 Reason Comments Med Refill Reason [...] KNEE COMPLETE 4/MORE VIEWS Roberto Brito PA-C [address] [place] [address] [place] [address] Referral ID Status Reason Start Date Expiration Date V tristents Requested Visits Authorized [id number] Closed Auto-Generate d Referral 07/14/2024 10/18/2024 1 [...] and partake working out at gym in [place]. He said has a friend that will [...] Care Teams (unrecognized sec tion and content) Exhaust And Muffler Fitter Relationship Specialty Start Date End Date Regan Ortega PCP - General Family Practice 10/11/19 Exhaust And Muffler Fitter Relationship Specialty Start Date End Date Regan Ortega PCP - General Family Practice 10/11/19 Exhaust And Muffler Fitter Relationship Specialty Start Date End Date Regan Ortega PCP - General Family Practice 10/11/19 Exhaust And Muffler Fitter Relationship Specialty Start Date End Date Regan Ortega PCP - General Family Practice 10/11/19 Exhaust And Muffler Fitter Relationship Specialty Start Date End Date Regan Ortega Mame PCP - General Family Medicine 10/11/19 Exhaust And Muffler Fitter Relationship Specialty Start Date End Date Regan Ortega PCP - General Family Medicine 10/11/19 Exhaust And Muffler Fitter Relationship Specialty Start Date End Date Regan Ortega PCP - General Family Medicine 10/11/19 Exhaust And Muffler Fitter Relationship Specialty Start Date End Date Regan Ortega Mame PCP - General Family Medicine 10/11/19 Team Status: Active Member Role Status Dates Shaikh Maine MD Primary Care Provider Active Team Status: Inactive Member Role Status Dates Shaikh Maine MD Primary Care Provider Active Agustin Nj MD Attending Provider Active Exhaust And Muffler Fitter Relationship Specialty Start Date End Date Regan Ortega PCP - General Family Medicine 10/11/19 Exhaust And Muffler Fitter Relationship Specialty Start Date End Date Regan Ortega Mame PCP - General Family Medicine 10/11/19 Exhaust And Muffler Fitter Relationship Specialty Start Date End Date Guille Tapia DO [address] [place] [address] PCP - General 09/28/15 Exhaust And Muffler Fitter Relationship Specialty Start Date End Date Guille Tapia DO [address] [place] [address] PCP - General 09/28/15 Exhaust And Muffler Fitter Relationship Specialty Start Date End Date Willie GuilleDO [address], [place] [id number] PCP - General 09/28/15 Exhaust And Muffler Fitter Relationship Specialty Start Date End Date Willie GuilleDO [address] [place] [address] PCP - General 09/28/15 Exhaust And Muffler Fitter Relationship Specialty Start Date End Date Shaikh Grove MD PCP - General Internal Medicine 05/11/23 Shaikh Grove MD [address] [place] [phone] PCP - Devoted 07/19/23 Exhaust And Muffler Fitter Relationship Specialty Start Date End Date Shaikh Grove MD PCP - General Internal Medicine 05/11/23 Shaikh Grove MD [address] [place] [phone] PCP - Devoted 07/19/23 Exhaust And Muffler Fitter Relationship Specialty Start Date End Date Shaikh Grove MD PCP - General Internal Medicine 05/11/23 Shaikh Grove MD [address] [place] [phone] PCP - Devoted 07/19/23 Exhaust And Muffler Fitter Relationship Specialty Start Date End Date Shaikh Grove MD [address] [place] [address] PCP - General 12/07/23 Exhaust And Muffler Fitter Relationship Specialty Start Date End Date Regan Ortega PCP - General Family Medicine 10/11/19 Exhaust And Muffler Fitter Relationship Specialty Start Date End Date Regan Ortega PCP - General Family Medicine 10/11/19 Exhaust And Muffler Fitter Relationship Specialty Start Date End Date Regan Ortega PCP - General Family Medicine 10/11/19 Exhaust And Muffler Fitter Relationship Specialty Start Date End Date Shaikh Grove MD [address] [place], [place] [id number] PCP - General 12/07/23 Exhaust And Muffler Fitter Relationship Specialty Start Date End Date Regan Ortega PCP - General Family Medicine 10/11/19 Justin Mcgowan MD [facility] [place] [address] [address] Referring Orthopedics 07/08/24 Exhaust And Muffler Fitter Relationship Specialty Start Date End Date Shaikh Grove MD [address] [place] [phone] PCP - Devoted 10/19/22 Regan Ortega MD [address] [place] [phone] PCP - General Family Medicine 05/18/24 Shaniqua Yost LSW Jet Dyeing Machine Tender Family Medicine 01/29/24 Daria Noel NP [address] [place] [phone] Nurse Practitioner Family Medicine 05/18/24 Exhaust And Muffler Fitter Relationship Specialty Start Date End Date Regan Ortega PCP - General Family Medicine 10/11/19 Justin Mcgowan MD [address] [place] [address] Referring Orthopedics 07/08/24 Exhaust And Muffler Fitter Relationship Specialty Start Date End Date Regan Ortega PCP - General Family Medicine 10/11/19 Justin Mcgowan MD [address] [place] [address] Referring Orthopedics 07/08/24 Exhaust And Muffler Fitter Relationship Specialty Start Date End Date Regan Ortega MD [address] [place] [address] PCP - General Family Medicine 05/18/24 Regan Ortega MD [address] [place] [address] PCP - Devoted 10/19/22 Shaniqua Yost LSW Jet Dyeing Machine Tender Family Medicine 01/29/24 Daria Noel NP [address] [place] [address] Nurse Practitioner Family Medicine 05/18/24 Exhaust And Muffler Fitter Relationship Specialty Start Date End Date Regan Ortega MD [address] [place] [address] PCP - Devoted 10/19/22 Unallocated, Haris Oglesby MD [address] [place] [address] PCP - General Family Medicine 08/03/24 Shaniqua Yost, [facility] Jet Dyeing Machine Tender Family Medicine 01/29/24 Daria Noel, NUNU [address] [place] [address] Nurse Practitioner Family Medicine 05/18/24 Exhaust And Muffler Fitter Relationship Specialty Start Date End Date Regan Ortega MD [address] [place] [address] PCP - Devoted 10/19/22 Unallocated, Haris Oglesby MD [address] [place] [address] PCP - General Family Medicine 08/03/24 Shaniqua Yost [facility] Jet Dyeing Machine Tender Family Medicine 01/29/24 Daria Noel, NUNU [address] [place] [address] Nurse Practitioner Family Medicine 05/18/24 Exhaust And Muffler Fitter Relationship Specialty Start Date End Date Regan Ortega MD [address] [place] [address] PCP - Devoted 10/19/22 Unallocated, Haris Oglesby MD [address] [place] [address] PCP - General Family Medicine 08/03/24 Shaniqua Yost LSW Jet Dyeing Machine Tender Family Medicine 01/29/24 Daria Noel NP [address] [place] [address] Nurse Practitioner Family Medicine 05/18/24 Exhaust And Muffler Fitter Relationship Specialty Start Date End Date Regan Ortega MD [address] [place] [address] PCP - General Family Medicine 05/18/24 08/02/24 Regan Ortega MD [address] [place] [address] PCP - Devoted 10/19/22 Shaniqua Yost RADIOGRAPHER ANGIOGRAM Jet Dyeing Machine Tender Family Medicine 01/29/24 Daria Noel NP [address] [place] [address] Nurse Practitioner Family Medicine 05/18/24 Exhaust And Muffler Fitter Relationship Specialty Start Date End Date Regan Ortega MD [address] [place] [address] PCP - Devoted 10/19/22 Unallocated, Haris Oglesby MD [address] [facility] [place] [address] PCP - General Family Medicine 08/03/24 Shaniqua Yost LSW Jet Dyeing Machine Tender Family Medicine 01/29/24 Daria Noel NP [address] [place] [address] Nurse Practitioner Family Medicine 05/18/24 Exhaust And Muffler Fitter Relationship Specialty Start Date End Date Regan Ortega MD [address] [place] [address] PCP - Devoted 10/19/22 Unallocated, Haris Oglesby MD [facility] [place] [address] PCP - General Family Medicine 08/03/24 Shaniqua oYst, [facility] Jet Dyeing Machine Tender Family Medicine 01/29/24 Daria Noel NP [address] [place] [address] Nurse Practitioner Family Medicine 05/18/24 Exhaust And Muffler Fitter Relationship Specialty Start Date End Date Regan Ortega MD [address] [place] [address] PCP - Devoted 10/19/22 Unallocated, Haris Oglesby MD [address] [place] [address] PCP - General Family Medicine 08/03/24 Shaniqua Yost, [facility] Jet Dyeing Machine Tender Family Medicine 01/29/24 Daria Noel NP [address] [place] [address] Nurse Practitioner Family Medicine 05/18/24 Exhaust And Muffler Fitter Relationship Specialty Start Date End Date Regan Ortega MD [address] [place] [address] PCP - Devoted 10/19/22 Unallocated, Haris Oglesby MD [address] [place] [address] PCP - General Family Medicine 08/03/24 Shaniqua Yost, [facility] Jet Dyeing Machine Tender Family Medicine 01/29/24 Daria Noel NP [address] [place] [address] Nurse Practitioner Family Medicine 05/18/24 Exhaust And Muffler Fitter Relationship Specialty Start Date End Date Regan Ortega MD [address] [place] [address] PCP - Devoted 10/19/22 Unallocated, Haris Oglesby MD [address] [place] [address] PCP - General Family Medicine 08/03/24 Shaniqua Yost, [facility] Jet Dyeing Machine Tender Family Medicine 01/29/24 Daria Noel NP [address] [place] [address] Nurse Practitioner Family Medicine 05/18/24 Exhaust And Muffler Fitter Relationship Specialty Start Date End Date Regan Ortega MD [address] [place] [address] PCP - Devoted 10/19/22 Regan Ortega MD [address] [place] [address] PCP - General Family Medicine 08/18/24 Shaniqua Yost, [facility] Jet Dyeing Machine Tender Family Medicine 01/29/24 Daria Noel NP [address] [place] [address] Nurse Practitioner Family Medicine 05/18/24 Hany Mack MA Family Medicine 08/19/24 Exhaust And Muffler Fitter Relationship Specialty Start Date End Date Regan Ortega MD [address] [place] [address] PCP - Devoted 10/19/22 Regan Ortega MD [address] [place] [address] PCP - General Family Medicine 08/18/24 Shaniqua Yost [facility] Jet Dyeing Machine Tender Family Medicine 01/29/24 Daria Noel, NUNU [address] [place] [address] Nurse Practitioner Family Medicine 05/18/24 Hany Mack MA Family Medicine 08/19/24 Exhaust And Muffler Fitter Relationship Specialty Start Date End Date Regan Ortega MD [address] [place] [address] PCP - Devoted 10/19/22 Regan Ortega MD [address] [place] [address] PCP - General Family Medicine 08/18/24 Shaniqua Yost, [facility] Jet Dyeing Machine Tender Family Medicine 01/29/24 Daria Noel NP [address] [place] [address] Nurse Practitioner Family Medicine 05/18/24 Hany Mack MA Family Medicine 08/19/24 Exhaust And Muffler Fitter Relationship Specialty Start Date End Date Regan Ortega MD [address] [place] [address] PCP - Devoted 10/19/22 Regan Ortega MD [address] [place] [address] PCP - General Family Medicine 08/18/24 Shaniqua Yost [facility] Jet Dyeing Machine Tender Family Medicine 01/29/24 Daria Noel NP [address] [place] [address] Nurse Practitioner Family Medicine 05/18/24 Hany Mack MA Family Medicine 08/19/24 Exhaust And Muffler Fitter Relationship Specialty Start Date End Date Regan Ortega MD [address] [place] [address] PCP - Devoted 10/19/22 Regan Ortega MD [address] [place] [address] PCP - General Family Medicine 08/18/24 Shaniqua Yost, [facility] Jet Dyeing Machine Tender Family Medicine 01/29/24 Daria Noel NP [address] [place] [address] Nurse Practitioner Family Medicine 05/18/24 Hany Mack MA Family Medicine 08/19/24 Exhaust And Muffler Fitter Relationship Specialty Start Date End Date Regan Ortega MD [address] [place] [address] PCP - Devoted 10/19/22 Regan Ortega MD [address] [place] [address] PCP - General Family Medicine 08/18/24 Shaniqua Yost, [facility] Jet Dyeing Machine Tender Family Medicine 01/29/24 Daria Noel NP [address] [place] [address] Nurse Practitioner Family Medicine 05/18/24 Hany Mack MA Family Medicine 08/19/24 Exhaust And Muffler Fitter Relationship Specialty Start Date End Date Regan Ortega MD [address] [place] [address] PCP - Devoted 10/19/22 Regan Ortega MD [address] [place] [address] PCP - General Family Medicine 08/18/24 Shaniqua Yost, [facility] Jet Dyeing Machine Tender Family Medicine 01/29/24 Daria Noel NP [address] [place] [address] Nurse Practitioner Family Medicine 05/18/24 Hany Mack MA Family Medicine 08/19/24 Exhaust And Muffler Fitter Relationship Specialty Start Date End Date Regan Ortega MD [address] [place] [address] PCP - Devoted 10/19/22 Regan Ortega MD [address] [place] [address] PCP - General Family Medicine 08/18/24 Shaniqua Yost LSW Jet Dyeing Machine Tender Family Medicine 01/29/24 Daria Noel NP [address] [place] [address] Nurse Practitioner Family Medicine 05/18/24 Hany Mack MA Family Medicine 08/19/24 Exhaust And Muffler Fitter Relationship Specialty Start Date End Date Shaikh Grove MD [address] [place] [address] PCP - Devoted 10/19/22 Regan Ortega MD [address] [place] [address] PCP - General Family Medicine 05/18/24 Shaniqua Yost LSW Jet Dyeing Machine Tender Family Medicine 01/29/24 Daria Noel NP [address] [place] [address] Nurse Practitioner Family Medicine 05/18/24 Exhaust And Muffler Fitter Relationship Specialty Start Date End Date Regan Ortega MD [address] [place] [address] PCP - Devoted 10/19/22 10/18/24 Regan Ortega MD [address] [place] [address] PCP - General Family Medicine 08/18/24 Shaniqua Yost LSW Jet Dyeing Machine Tender Family Medicine 01/29/24 Daria Noel, NUNU [address] [place] [address] Nurse Practitioner Family Medicine 05/18/24 Hany Mack SD Family Medicine 08/19/24 Exhaust And Muffler Fitter Relationship Specialty Start Date End Date Shaikh Grove MD [address] [place] [address] PCP - Devoted 10/19/22 Regan Ortega MD [address] [place] [address] PCP - General Family Medicine 05/18/24 Adrián Ellison LPN Licensed Practical Nurse Family Medicine 01/27/24 Shaniqua Yost RADIOGRAPHER ANGIOGRAM Jet Dyeing Machine Tender Family Medicine 01/29/24 Daria Noel, NUNU [address] [place] [address] Nurse Practitioner Family Medicine 05/18/24 Exhaust And Muffler Fitter Relationship Specialty Start Date End Date Shaikh Grove MD [address] [place] [address] PCP - Devoted 10/19/22 Regan Ortega MD [address] [place] [address] PCP - General Family Medicine 05/18/24 Adrián Ellison LPN Licensed Practical Nurse Family Medicine 01/27/24 Shaniqua Yost, [facility] Jet Dyeing Machine Tender Family Medicine 01/29/24 Daria Noel NP [address] [place] [address] Nurse Practitioner Family Medicine 05/18/24 Exhaust And Muffler Fitter Relationship Specialty Start Date End Date Shaikh Grove MD [address] [place] [address] PCP - Devoted 10/19/22 Regan Ortega MD [address] [place] [address] PCP - General Family Medicine 05/18/24 Adrián Ellison LPN Licensed Practical Nurse Family Medicine 01/27/24 Shaniqua Yost, [facility] Jet Dyeing Machine Tender Family Medicine 01/29/24 Daria Noel NP [address] [place] [address] Nurse Practitioner Family Medicine 05/18/24 Exhaust And Muffler Fitter Relationship Specialty Start Date End Date Shaikh Grove MD [address] [place] [address] PCP - Devoted 10/19/22 Regan Ortega MD [address] [place] [address] PCP - General Family Medicine 05/18/24 Adrián Ellison LPN Licensed Practical Nurse Family Medicine 01/27/24 Shaniqua Yost, [facility] Jet Dyeing Machine Tender Family Medicine 01/29/24 Daria Noel NP [address] [place] [address] Nurse Practitioner Family Medicine 05/18/24 Exhaust And Muffler Fitter Relationship Specialty Start Date End Date Shaikh Grove MD [address] [place] [address] PCP - Devoted 10/19/22 Regan Ortgea MD [address] [place] [address] PCP - General Family Medicine 05/18/24 Adrián Ellison LPN Licensed Practical Nurse Family Medicine 01/27/24 Shaniqua Yost [facility] Jet Dyeing Machine Tender Family Medicine 01/29/24 Daria Noel NP [address] [place] [address] Nurse Practitioner Family Medicine 05/18/24 Exhaust And Muffler Fitter Relationship Specialty Start Date End Date Shaikh Grove MD [address] [place] [address] PCP - Devoted 10/19/22 Regan Ortega MD [address] [place] [address] PCP - General Family Medicine 05/18/24 Adrián Ellison LPN Licensed Practical Nurse Family Medicine 01/27/24 Shaniqua Yost, [facility] Jet Dyeing Machine Tender Family Medicine 01/29/24 Daria Noel, NUNU [address] [place] [address] Nurse Practitioner Family Medicine 05/18/24 Exhaust And Muffler Fitter Relationship Specialty Start Date End Date Shaikh Grove MD [address] [place] [address] PCP - Devoted 10/19/22 Regan Ortega MD [address] [place] [address] PCP - General Family Medicine 05/18/24 Shaniqua Yost [facility] Jet Dyeing Machine Tender Family Medicine 01/29/24 Daria Noel, NUNU [address] [place] [address] Nurse Practitioner Family Medicine 05/18/24 Exhaust And Muffler Fitter Relationship Specialty Start Date End Date Regan Ortega MD [address] [place] [address] PCP - Devoted 10/19/22 Regan Ortega MD [address] [place] [address] PCP - General Family Medicine 08/18/24 Shaniqua Yost, [facility] Jet Dyeing Machine Tender Family Medicine 01/29/24 Daria Noel NP [address] [place] [address] Nurse Practitioner Family Medicine 05/18/24 Hany Mack MA Family Medicine 08/19/24 Exhaust And Muffler Fitter Relationship Specialty Start Date End Date Regan Ortega MD [address] [place] [address] PCP - Devoted 10/19/22 Regan Ortega MD [address] [place] [address] PCP - General Family Medicine 08/18/24 Shaniqua Yost [facility] Jet Dyeing Machine Tender Family Medicine 01/29/24 Daria Noel, NUNU [address] [place] [address] Nurse Practitioner Family Medicine 05/18/24 Hany Mack MA Family Medicine 08/19/24 Exhaust And Muffler Fitter Relationship Specialty Start Date End Date Regan Ortega MD [address] [place] [address] PCP - Devoted 10/19/22 Regan Ortega MD [address] [place] [address] PCP - General Family Medicine 08/18/24 Shaniqua Yost, [facility] Jet Dyeing Machine Tender Family Medicine 01/29/24 Daria Noel NP [address] [place] [address] Nurse Practitioner Family Medicine 05/18/24 Hany Mack MA Family Medicine 08/19/24 Exhaust And Muffler Fitter Relationship Specialty Start Date End Date Regan Ortega MD PCP - General Family Medicine 10/11/19 Justin Mcgowan MD [address] [place] [address] Referring Orthopedics 07/08/24 Exhaust And Muffler Fitter Relationship Specialty Start Date End Date Regan Ortega MD PCP - General Family Medicine 10/11/19 Justin Mcgowan MD [address] [place] [address] Referring Orthopedics 07/08/24 Exhaust And Muffler Fitter Relationship Specialty Start Date End Date Regan Ortega MD [address] [place] [address] PCP - Devoted 10/19/22 Regan Ortega MD [address] [place] [address] PCP - General Family Medicine 08/18/24 Shaniqua Yost [facility] Jet Dyeing Machine Tender Family Medicine 01/29/24 Daria Noel NP [address] [place] [address] Nurse Practitioner Family Medicine 05/18/24 Hany Mack MA Family Medicine 08/19/24 Exhaust And Muffler Fitter Relationship Specialty Start Date End Date Regan Ortega MD [address] [place] [address] PCP - Devoted 10/19/22 Regan Ortega MD [address] [place] [address] PCP - General Family Medicine 08/18/24 Shaniqua Yost LSW Jet Dyeing Machine Tender Family Medicine 01/29/24 Daria Noel NP [address] [place] [address] Nurse Practitioner Family Medicine 05/18/24 Hany Mack MA Family Medicine 08/19/24 Exhaust And Muffler Fitter Relationship Specialty Start Date End Date Regan Ortega MD [address] [place] [address] PCP - Devoted 10/19/22 Regan Ortega MD [address] [place] [address] PCP - General Family Medicine 08/18/24 Shaniqua Yost LSW Jet Dyeing Machine Tender Family Medicine 01/29/24 Daria Noel NP [address] [place] [address] Nurse Practitioner Family Medicine 05/18/24 Hany Mack MA Family Medicine 08/19/24 Exhaust And Muffler Fitter Relationship Specialty Start Date End Date Regan Ortega MD [address] [place] [address] PCP - Devoted 10/19/22 Regan Ortega MD [address] [place] [address] PCP - General Family Medicine 08/18/24 Shaniqua Yost, [facility] Jet Dyeing Machine Tender Family Medicine 01/29/24 Daria Noel NP [address] [place] [address] Nurse Practitioner Family Medicine 05/18/24 Hany Mack MA Family Medicine 08/19/24 Exhaust And Muffler Fitter Relationship Specialty Start Date End Date Regan Ortega MD [address] [place] [address] PCP - Devoted 10/19/22 Regan Ortega MD [address] [place] [address] PCP - General Family Medicine 08/18/24 Shaniqua Yost, [facility] Jet Dyeing Machine Tender Family Medicine 01/29/24 Daria Noel, NUNU [address] [place] [address] Nurse Practitioner Family Medicine 05/18/24 Hany Mack MA Family Medicine 08/19/24 Exhaust And Muffler Fitter Relationship Specialty Start Date End Date Regan Ortega MD [address] [place] [address] PCP - Devoted 10/19/22 UnallocatedHaris MD [facility] [place] [address] PCP - General Family Medicine 12/13/24 Shaniqua Yost [facility] Jet Dyeing Machine Tender Family Medicine 01/29/24 Hany Mack MA Family Medicine 08/19/24 Exhaust And Muffler Fitter Relationship Specialty Start Date End Date Regan Ortega MD [address] [place] [address] PCP - Devoted 10/19/22 Unallocated, Haris Oglesby MD [address] [place] [address] PCP - General Family Medicine 12/13/24 Shaniqua Yost [facility] Jet Dyeing Machine Tender Family Medicine 01/29/24 Hany Mack, [place] Family Medicine 08/19/24 Exhaust And Muffler Fitter Relationship Specialty Start Date End Date Regan Ortega MD PCP - General Family Medicine 10/11/19 Justin Mcgowan MD [facility] [place] [address] [place] [address] Referring Orthopedics 07/08/24 Exhaust And Muffler Fitter Relationship Specialty Start Date End Date Regan Ortega MD [address] [place] [address] PCP - Devoted 10/19/22 UnallocatedHaris MD [address] [place] [address] PCP - General Family Medicine 12/13/24 Goals [...] BE BASED ON THE PRIMARY CLINICAL RECORDS. [facility] [employer] [facility]. provides no warranty or guarantee of the accuracy or completeness of information in this document.
--- NOTE | 2025-01-19 03:02 | PC.NURSE ---
patient having pain in left leg/ swollen
[2025-01-19] MEDS: 0.9 % SODIUM CHLORIDE 1,000 ML 200 ML IV ×2 (06:29→13:03)
[2025-01-19] MEDS: CLONAZEPAM 0.5 MG TABLET 1 MG PO ×3 (06:29→21:26)
[2025-01-19] MEDS: HYDROXYZINE HCL 25 MG TABLET PO ×2 (06:30→13:05)
[2025-01-19] MEDS: LEVOTHYROXINE SODIUM 125 MCG TABLET PO (06:30)
[2025-01-19] MEDS: CYCLOBENZAPRINE HCL 10 MG TABLET PO ×3 (06:30→21:26)
[2025-01-19 06:34] LABS: Anion Gap 17.7; BUN Creatinine Ratio 12.6; Calcium 8.5 mg/dL (8.5-10.1); Carbon Dioxide 22.2 mmol/L (21.0-32.0); Chloride 98 mmol/L (98-107); Estimated GFR (African America 24 (>=60 mL/min/1.73m^2); Estimated GFR (Non-African Ame 20 (>=60 mL/min/1.73m^2); Glucose 82 mg/dL (74-106); Potassium 4.9 mmol/L (3.5-5.1); Sodium 133 mmol/L (136-145)
[2025-01-19 06:40] LABS: Lactate/Lactic Acid 2.1 mmol/L (0.4-2.0)
[2025-01-19 08:02] LABS: Glucometer 120 mg/dL (74-106)
[2025-01-19] MEDS: ATORVASTATIN CALCIUM 20 MG TABLET PO (10:24)
[2025-01-19] MEDS: BUSPIRONE HCL 15 MG TABLET 30 MG PO ×2 (10:24→21:26)
[2025-01-19] MEDS: VENLAFAXINE HCL ER 150 MG CAPSULE PO (10:24)
[2025-01-19] MEDS: HEPARIN SODIUM (PORCINE) 5,000 UNIT/ML VIAL 5000 UNIT SUBQ ×2 (10:25→21:26)
[2025-01-19] MEDS: AMLODIPINE BESYLATE 5 MG TABLET PO (10:25)
[2025-01-19] MEDS: METHYLPREDNISOLONE SOD SUCC PF 125 MG/2 ML VIAL 60 MG IVP ×3 (10:26→21:25)
[2025-01-19] MEDS: HYDROCODONE/ACET 5-325 MG TABLET 2 TAB PO ×2 (10:33→15:27)
[2025-01-19] MEDS: AZELASTINE HCL 0.1% NASAL SPRAY 1 SPRAY NS ×2 (10:34→21:27)
[2025-01-19] MEDS: IPRATROPIUM/ALBUTEROL SULFATE 3 ML AMPUL.NEB IH ×4 (10:54→23:33)
[2025-01-19] MEDS: [UNRECOGNIZED DRUG - MIXTURE] IH (10:57)
[2025-01-19 11:16] LABS: Glucometer 76 mg/dL (74-106)
--- NOTE | 2025-01-19 11:16 | CM.NOTE ---
Rounds made with Dr. Lewis, pt continues to require oxygen and c/o SOB with minimal activity. Pt also having difficulty ambulating d/t knee complications and has appt at [facility] January 24.
--- NOTE | 2025-01-19 11:27 | PM.HP ---
HPI H&P: HPI History of Present Illness Chief complaint: ELIZABETH, PNEUMONIA Narrative: 69 y/o male to ER with cough and worsening left knee pain. History of left TKA then infection and revision in 2018. Problems for years and now with loosening of hardware and mass. Seen by ortho and referred to [facility] with apointment scheduled 01/24. Increased pain over past few days and having difficulty with ambulation. C/o cough and SOB for 3-4 days. Chest tight and hard to take deep breath. SOB with exertion. Frequent cough and sputum. To ER and WBC 12.0. Chest x-ray with pneumonia and found hypoxia in ER with SpO2 85% on room air. Labs with ELIZABETH. Placed on oxygen and admitted. Started rocephin and zithromax for pneumonia. Started solu-medrol and DuoNeb for COPD exacerbation. Slightly better this am but continued SOB and cough. Opioid HPI Opioid Management Most Recent Pain and Opioid Data: Last Pain Scale 9 01/19/25 10:33 01/19/25 Last Pain Assessment 01/19/25 10:23 Last MAR Pain Assessment 01/19/25 10:33 Last ORT Total Score 3 01/19/25 00:30 01/19/25 Last ORT Risk Category Low Risk 01/19/25 00:30 01/19/25 Review of Systems ROS Constitutional Denies: fever, chills or fatigue Cardiovascular Denies: chest pain, palpitations or edema Respiratory Reports: shortness of breath, cough and wheezing Gastrointestinal Denies: abdominal pain, nausea, vomiting or diarrhea Genitourinary Denies: painful urination [facility] Medical History (Updated 01/19/25 @ 11:31 by Regan Lewis MD) COPD (chronic obstructive pulmonary disease) ?J44.9 - Chronic obstructive pulmonary disease, unspecified (ICD-10) Swelling of knee joint, left ?M25.462 - Effusion, left knee (ICD-10) Post-operative pain ?G89.18 - Other acute postprocedural pain (ICD-10) Post-operative pain ?G89.18 - Other acute postprocedural pain (ICD-10) Chest wall contusion ?S20.219A - Contusion of unspecified front wall of thorax, initial encounter (ICD-10) Acute pain of right shoulder ?M25.511 - Pain in right shoulder (ICD-10) Abnormal laboratory test ?R89.9 - Unspecified abnormal finding in specimens from other organs, systems and tissues (ICD-10) Arthritis of right shoulder region ?M19.011 - Primary osteoarthritis, right shoulder (ICD-10) Post-operative pain ?G89.18 - Other acute postprocedural pain (ICD-10) Edema of knee ?M25.469 - Effusion, unspecified knee (ICD-10) Abrasion of knee, left ?S80.212A - Abrasion, left knee, initial encounter (ICD-10) Fall ?W19.XXXA - Unspecified fall, initial encounter (ICD-10) Contusion of knee, left ?S80.02XA - Contusion of left knee, initial encounter (ICD-10) Rotator cuff disorder ?M67.919 - Unspecified disorder of synovium and tendon, unspecified shoulder (ICD-10) Partial nontraumatic amputation of right foot ?Z89.431 - Acquired absence of right foot (ICD-10) Sedentary lifestyle ?Z91.89 - Other specified personal risk factors, not elsewhere classified (ICD-10) Left knee pain ?M25.562 - Pain in left knee (ICD-10) Depression ?F32.A - Depression, unspecified (ICD-10) Balance problem ?R26.89 - Other abnormalities of gait and mobility (ICD-10) Falls frequently ?R29.6 - Repeated falls (ICD-10) No natural teeth ?K08.109 - Complete loss of teeth, unspecified cause, unspecified class (ICD-10) Neuropathy ?G62.9 - Polyneuropathy, unspecified (ICD-10) Diabetes ?E11.9 - Type 2 diabetes mellitus without complications (ICD-10) Surgical History (Updated 01/19/25 @ 03:30 by Julissa Hopson) History of arthroplasty of left knee ?Z96.652 - Presence of left artificial knee joint (ICD-10) H/O left knee surgery ?Z98.890 - Other specified postprocedural states (ICD-10) Social History Smoking status: Never smoker Highest level of school completed/degree received: high school graduate Little interest or pleasure in doing things: more than half the days Feeling down, depressed, or hopeless: nearly every day Do you think of yourself as: straight/heterosexual Gender Identity: male Meds Home Medications and Allergies Home Medications ?Medication ?Instructions ?Recorded ?Confirmed ?Type amlodipine 5 mg tablet 5 mg PO DAILY 07/20/23 01/18/25 History azelastine 137 mcg (0.1 %) nasal 1 spray intranasal Q12H 07/20/23 01/18/25 History spray buspirone 30 mg tablet 30 mg PO BID 07/20/23 01/18/25 History clonazepam 1 mg tablet 1 mg PO Q8H PRN anxiety 07/20/23 01/19/25 History cyclobenzaprine 10 mg tablet 10 mg PO Q8H 07/20/23 01/18/25 History glimepiride 4 mg tablet 4 mg PO BID 07/20/23 01/18/25 History hydroxyzine HCl 25 mg tablet 25 mg PO Q8H 07/20/23 01/18/25 History levothyroxine 125 mcg tablet 125 mcg PO DAILY 07/20/23 01/18/25 History lisinopril 20 mg tablet 20 mg PO DAILY 07/20/23 01/18/25 History meloxicam 7.5 mg tablet 7.5 mg PO DAILY 07/20/23 01/18/25 History metformin 850 mg tablet 1,000 mg PO BID 07/20/23 01/18/25 History prazosin 1 mg capsule 1 mg PO DAILY 07/20/23 01/18/25 History albuterol sulfate 90 mcg/actuation 2 inh inhalation Q6H PRN shortness 12/30/24 01/18/25 History aerosol inhaler of breath or wheezing fluticasone 250 mcg-salmeterol 50 1 inh inhalation Q12H 12/30/24 01/18/25 History mcg/dose blistr powdr for inhalation rosuvastatin 5 mg tablet 5 mg PO QDAY 12/30/24 01/18/25 History hydroxyzine HCl 50 mg tablet 50 mg PO Q8H PRN anxiety 01/18/25 01/19/25 History gabapentin 600 mg tablet 600 mg PO TID 01/19/25 01/19/25 History venlafaxine 150 mg 150 mg PO .qd 01/19/25 01/19/25 History capsule,extended release 24 hr Allergies Allergy/AdvReac Type Severity Reaction Status Date / Time morphine Allergy itch Verified 01/18/25 20:59 Exam Constitutional Vital Signs, click to edit/add: Last Vital Signs Temp 98.1 F 01/19/25 09:49 Pulse 102 H 01/19/25 10:58 Resp 20 01/19/25 09:49 BP 126/66 01/19/25 09:49 Pulse Ox 92 L 01/19/25 10:58 O2 Del Method Nasal Cannula 01/19/25 10:58 O2 Flow Rate 3.5 01/19/25 10:58 Results Labs Labs: Short CBC 01/18/25 Range/Units 21:13 WBC 12.0 H (4.0-11.0) 10^3/uL Hgb 12.6 L (14.0-18.0) g/dL Hct 36.5 L (42.0-54.0) % Plt Count 212 (150-450) 10^3/uL BMP 01/18/25 01/19/25 21:13 05:35 Sodium 130 L 133 L Potassium 4.9 4.9 Chloride 97 L 98 Carbon Dioxide 24.2 22.2 BUN 35.0 H 40.0 H Creatinine 2.91 H 3.17 H Glucose 56 L 82 Calcium 8.8 8.5 Assessment and Plan Assessment and Plan (1) Pneumonia: (2) Acute hypoxic respiratory failure: (3) COPD exacerbation: (4) Acute kidney injury: (5) Type 2 diabetes mellitus with hyperglycemia: (6) HTN (hypertension): (7) Mass of left knee: (8) Chronic pain of left knee: Plan Continue antibiotics, steroids, and breathing treatments. Wean O2 as tolerated. Labs show worsening renal function overnight and continue IV fluids. Hold mobic and glipizide. Resume other home medication. Start PT/OT for knee. Monitor labs and vitals. Plan on at least a 2 midnight stay for inpatient medically necessary services.
--- NOTE | 2025-01-19 13:19 | SWNOTE1 ---
DREA met with pt to discuss dc needs. Pt lives at home by himself and uses a walker. Pt lives in 2 story home and does still go up and down stairs. Pt does not have any family that can help. Possibly one neighbor who can help if he asks. DREA spoke with pt about recommendation of going to rehab. Pt is agreeable and voiced he has been to [facility] in past and would go there again. SW advised that they are filling up and asked if he had a second choice and let pt know that SW will try [facility] first. DREA provided pt with list from Medicare.gov. Pt would like [facility] as second choice. DREA spoke with Rickie at [facility]. She stated they are waiting on determination of an appeal to see if they will have bed, she will not know until 5:00pm or after. At this point will need to get precert started, DREA reached out to Gintete at [facility] and she will review and let SW know. Referral sent to [facility]. Referral included face sheet, ED note, H&P, provider notes, case management report, nursing notes, diagnostic imaging, med list, and PT/OT notes.
--- NOTE | 2025-01-19 13:53 | SWNOTE1 ---
[facility] is able to accept and precert started.
--- NOTE | 2025-01-19 13:53 | SWNOTE1 ---
Important Message from Medicare reviewed and discussed with patient. Pt. verbalized understanding and signed the form. Original given to patient and copy placed in patient?s chart.
--- NOTE | 2025-01-19 15:19 | CM.NOTE ---
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 Pt f/u yearly now d/t COPD being better controlled. Spoke with pt regarding pulmonary rehab, pt denies ever going to Pulmonary rehab but would be interested. Pt given pamphlet and information regarding pulmonary rehab.
[2025-01-19 16:21] LABS: Glucometer 193 mg/dL (74-106)
[2025-01-19] MEDS: INSULIN ASPART 300 UNIT/3 ML PEN SUBQ ×2 (16:39→21:27)
[2025-01-19] MEDS: GABAPENTIN 300 MG CAPSULE 600 MG PO ×2 (18:31→21:26)
[2025-01-19 19:00] LABS: A. calcoaceticus-baumannii Cpx NOT DETECTED (NOT DETECTE); Bacteroides fragilis NOT DETECTED (NOT DETECTE); Candida albicans NOT DETECTED (NOT DETECTE); Candida auris NOT DETECTED (NOT DETECTE); Candida glabrata NOT DETECTED (NOT DETECTE); Candida krusei NOT DETECTED (NOT DETECTE); Candida parapsilosis NOT DETECTED (NOT DETECTE); Candida tropicalis NOT DETECTED (NOT DETECTE); Cryptococcus neoformans/gattii NOT DETECTED (NOT DETECTE); Enterobacter cloacae complex NOT DETECTED (NOT DETECTE); Enterobacterales NOT DETECTED (NOT DETECTE); Enterococcus faecalis NOT DETECTED (NOT DETECTE); Enterococcus faecium NOT DETECTED (NOT DETECTE); Haemophilus influenzae NOT DETECTED (NOT DETECTE); Klebsiella aerogenes NOT DETECTED (NOT DETECTE); Klebsiella pneumoniae group NOT DETECTED (NOT DETECTE); Listeria monocytogenes NOT DETECTED (NOT DETECTE); Neisseria meningitidis NOT DETECTED (NOT DETECTE); Proteus spp. NOT DETECTED (NOT DETECTE); Pseudomonas aeruginosa NOT DETECTED (NOT DETECTE); Salmonella spp. NOT DETECTED (NOT DETECTE); Serratia marcescens NOT DETECTED (NOT DETECTE); Staphylococcus lugdunensis NOT DETECTED (NOT DETECTE); Stenotrophomonas maltophilia NOT DETECTED (NOT DETECTE); Streptococcus agalactiae NOT DETECTED (NOT DETECTE); Streptococcus pneumoniae NOT DETECTED (NOT DETECTE); Streptococcus pyogenes NOT DETECTED (NOT DETECTE); Streptococcus spp. NOT DETECTED (NOT DETECTE)
[2025-01-19 19:42] LABS: Glucometer 311 mg/dL (74-106)
[2025-01-19 20:10] LABS: ABG PCO2 40.2 mmHg (35.0-45.0); Allen Test POSITIVE (POSITIVE); Base Excess ABG -6.1 mmol/L (-2.0-2.0); HCO3 ABG 20.2 mmol/L (22.0-26.0); Liters per Minute 6; O2 Mode Nasal cannula; Oxygen Saturation ABG 90.4 %; pH ABG 7.309 (7.350-7.450)
[2025-01-19 20:11] LABS: Puncture Site RR
[2025-01-19 20:54] LABS: Source Blood
[2025-01-19 20:58] LABS: mecA/C DETECTED (NOT DETECTE)
[2025-01-19 20:59] LABS: Staphylococcus epidermidis DETECTED (NOT DETECTE); Staphylococcus spp. DETECTED (NOT DETECTE)
[2025-01-19] MEDS: CEFTRIAXONE 1,000 MG in 0.9 % SODIUM CHLORIDE 50 ML 100 MG IV (23:35)
[2025-01-20] VITALS (33 sets, daily range): BP systolic 103–143; BP diastolic 63–95; PULSE 85–101; RESP 16; TEMP 36.2–36.5; O2SAT 93–99
[2025-01-20] MEDS: AZITHROMYCIN 500 MG in 0.9 % SODIUM CHLORIDE 250 ML 250 MG IV (00:32)
[2025-01-20] MEDS: FUROSEMIDE 20 MG/2 ML VIAL IVP (00:34)
[2025-01-20 00:41] LABS: Bilirubin Urine NEGATIVE (NEGATIVE); Blood Urine NEGATIVE (NEGATIVE); Clarity Urine CLEAR (CLEAR); Color Urine YELLOW (YELLOW); Glucose Urine UA NEGATIVE (NEGATIVE); Ketones Urine NEGATIVE (NEGATIVE); Leukocyte Esterase Urine NEGATIVE (NEGATIVE); Nitrite Urine NEGATIVE (NEGATIVE); Protein Urine NEGATIVE (NEG/TRACE); Urobilinogen Urine 0.2 EU/dL (0.2-1.0)
--- NOTE | 2025-01-20 01:56 | PC.NURSE ---
01/20/2025 0156 Patient was transferred from Med surg to ICU at this time. Report given to PATTERN CHAIN BUILDER. Patient is placed on Bipap by respiratory therapy. Vital signs taken. Patient does wake up with movements and states I'm feeling good but falls right back asleep. Patient states he thinks he is at [facility] when asked where he is and falls right back asleep.
--- NOTE | 2025-01-20 02:31 | PC.NURSE ---
1947 - RN to pt's bedside for rounding. Rm 204, Mr. Nieves Lu is very lethargic, with Rancorous respirations, difficult to arouse to tactile stim. When RN did wake up pt, he was noted to be inappropriate, stating oh your beautiful , then immediately sleeping once again. Attempts made by RN and Tech to assist pt with using his PEP, yet pt cannot use it appropriately. Continues to suck on it like a straw instead of blowing into it. Noted pt to be 81-82% on 3L NC, increased to 4L NC, still only 86-85%. RT called to bedside. Pt noted to have difficult time staying awake. Placed on 6L NC to break 89%. Lungs are coarse with Rhonchi, Crackles and wheezes throughout. BP 102/66. Resp 16, T-98.0. Hospitalist notified. 1952 - Hospitalist orders received. CXR, ABG and order for Vapotherm. Discussion of plan of care and Vapotherm vs BiPap. 2056 - Update given to Hospitalist. Pt continues to be Lethargic and difficult to arouse. POX now upper 80's to low 90's on 60% Vapotherm. Also updated on + Blood culture. 2099 - Verified what IV ATBs pt was currently on. No new orders at present time. PT moved from 204 to 216 for closer observation. 2342 = UPdated Hospitalist on pt's inability to urinate. Orders received and Nino catheter placed. 2000mls of dark tea colored urine. Pt medicated as ordered and Labs sent for analysis. Pt transferred to ICU and placed on Bipap.
[2025-01-20 02:54] LABS: Anion Gap 17.5; BUN Creatinine Ratio 13.6; Calcium 8.5 mg/dL (8.5-10.1); Chloride 95 mmol/L (98-107); Estimated GFR (African America 18 (>=60 mL/min/1.73m^2); Estimated GFR (Non-African Ame 15 (>=60 mL/min/1.73m^2); Glucose 382 mg/dL (74-106); Sodium 127 mmol/L (136-145)
[2025-01-20 02:58] LABS: Potassium 6.5 mmol/L (3.5-5.1)
[2025-01-20] MEDS: SODIUM ZIRCONIUM CYCLOSILICATE 10 GM POWD.PACK PO ×2 (03:47→14:50)
[2025-01-20] MEDS: METHYLPREDNISOLONE SOD SUCC PF 125 MG/2 ML VIAL 60 MG IVP ×3 (03:51→15:56)
[2025-01-20] MEDS: IPRATROPIUM/ALBUTEROL SULFATE 3 ML AMPUL.NEB IH ×5 (03:57→19:54)
[2025-01-20 05:42] LABS: Hemoglobin 11.6 g/dL (14.0-18.0); Mean Corpuscular HGB Conc 33.1 g/dL (29.9-35.2); Mean Corpuscular Hemoglobin 30.9 pg (25.9-34.0); Mean Corpuscular Volume 93.3 fL (80.0-94.0); Mean Platelet Volume 9.3 fL (9.5-13.5); Platelet Count 164 10^3/uL (150-450); Red Blood Count 3.75 10^6/uL (4.70-6.10); Red Cell Distribution Width 13.2 % (11.0-15.0); White Blood Count 7.4 10^3/uL (4.0-11.0)
[2025-01-20 06:09] LABS: Lymphocytes Absolute Manual 0.29 10^3/uL (1.20-3.80); Monocytes Absolute Manual 0.22 10^3/uL (0.30-0.80); Segmented Neut Absolute Manual 6.88 10^3/uL (1.4-6.5)
[2025-01-20] MEDS: CLONAZEPAM 0.5 MG TABLET 1 MG PO (06:37)
[2025-01-20 07:26] LABS: Glucometer 363 mg/dL (74-106)
[2025-01-20 07:29] LABS: ABG PCO2 38.8 mmHg (35.0-45.0); Allen Test POSITIVE (POSITIVE); Base Excess ABG -7.6 mmol/L (-2.0-2.0); HCO3 ABG 18.9 mmol/L (22.0-26.0); Oxygen Saturation ABG 96.4 %; PO2 ABG 79.3 mmHg (80.0-100.0)
[2025-01-20 07:30] LABS: Fractionated Inspired Oxygen 35 %; O2 Mode BIPAP; Puncture Site L RAD
[2025-01-20 07:32] LABS: pH ABG 7.296 (7.350-7.450)
[2025-01-20] MEDS: AZELASTINE HCL 0.1% NASAL SPRAY 1 SPRAY NS (09:07)
[2025-01-20] MEDS: INSULIN ASPART 300 UNIT/3 ML PEN SUBQ ×3 (09:07→15:56)
[2025-01-20] MEDS: AMLODIPINE BESYLATE 5 MG TABLET PO (09:13)
[2025-01-20] MEDS: ATORVASTATIN CALCIUM 20 MG TABLET PO (09:13)
[2025-01-20] MEDS: LEVOTHYROXINE SODIUM 125 MCG TABLET PO (09:13)
[2025-01-20] MEDS: HEPARIN SODIUM (PORCINE) 5,000 UNIT/ML VIAL 5000 UNIT SUBQ (09:13)
[2025-01-20] MEDS: VENLAFAXINE HCL ER 150 MG CAPSULE PO (09:13)
[2025-01-20] MEDS: BUSPIRONE HCL 15 MG TABLET 30 MG PO (09:13)
[2025-01-20 09:25] LABS: Alanine Aminotransferase 41 U/L (16-63); Albumin Globulin Ratio 0.8; Albumin Level 2.8 g/dL (3.4-5.0); Alkaline Phosphatase 129 U/L (46-116); Anion Gap 16.9; Aspartate Amino Transferase 42 U/L (15-37); BUN Creatinine Ratio 14.4; Bilirubin Total 0.4 mg/dL (0.2-1.0); Calcium 8.4 mg/dL (8.5-10.1); Carbon Dioxide 21.4 mmol/L (21.0-32.0); Chloride 95 mmol/L (98-107); Estimated GFR (African America 17 (>=60 mL/min/1.73m^2); Estimated GFR (Non-African Ame 14 (>=60 mL/min/1.73m^2); Globulin 3.6 g/dL; Glucose 369 mg/dL (74-106); Sodium 127 mmol/L (136-145); Total Protein 6.4 g/dL (6.4-8.2)
[2025-01-20 09:28] LABS: Potassium 6.3 mmol/L (3.5-5.1)
--- NOTE | 2025-01-20 10:33 | CM.NOTE ---
Rounds made with Dr. Lewis. Dr. Lewis reviews findings with Mr. Lu and discusses treatment plan. Mr. Lu in agreement.
[2025-01-20] MEDS: FUROSEMIDE 40 MG/4 ML VIAL IVP (10:49)
[2025-01-20] MEDS: 0.9 % SODIUM CHLORIDE 1,000 ML 100 ML IV (10:49)
[2025-01-20 11:06] LABS: Glucometer 357 mg/dL (74-106)
--- NOTE | 2025-01-20 11:07 | PM.PN ---
Progress Note: Subjective Subjective Interval history: Patient deteriorated overnight. Developed sedation and hypoxia. Placed on vapotherm then transitioned to BiPAP. Chest x-ray showed fluid overload and given IV lasix. Will placed and 2000 out. Labs showed worsening renal function. Currently back on 4 LPM and feels better. Still SOB and mild cough. No chest tightness. No pedal edema. Afebrile. Will currently clamped for US but decreased urine output. Exam Constitutional Vital Signs, click to edit/add: Last Vital Signs Temp 97.2 F L 01/20/25 02:25 Pulse 90 01/20/25 09:58 Resp 12 01/20/25 09:30 BP 130/79 01/20/25 09:30 Pulse Ox 96 01/20/25 09:30 O2 Del Method Nasal Cannula 01/20/25 08:00 O2 Flow Rate 2 01/20/25 08:00 FiO2 35 01/20/25 07:11 Documenting provider has reviewed patient's vital signs: yes Common normals: no apparent distress, oriented x3 and alert HENMT Common normals: normocephalic Eye Common normals: PERRL and EOMs intact bilaterally Respiratory Common normals: normal respiratory effort Auscultation: rhonchi throughout and wheezes expiratory wheezes Cardio Common normals: regular rate, regular rhythm, no gallops, no murmurs and no rub GI Common normals: Normal to inspection, nondistended, normoactive bowel sounds present and non-tender Extremity Common normals: no pedal edema Progress Note: Objective Labs Labs: Short CBC 01/20/25 Range/Units 05:13 WBC 7.4 (4.0-11.0) 10^3/uL Hgb 11.6 L (14.0-18.0) g/dL Hct 35.0 L (42.0-54.0) % Plt Count 164 (150-450) 10^3/uL BMP 01/20/25 01/20/25 00:20 07:21 Sodium 127 L 127 L Potassium 6.5 H* 6.3 H* Chloride 95 L 95 L Carbon Dioxide 21.0 21.4 BUN 56.0 H 62.0 H Creatinine 4.12 H 4.31 H Glucose 382 H 369 H Calcium 8.5 8.4 L Liver Function 01/20/25 Range/Units 07:21 Total Bilirubin 0.4 (0.2-1.0) mg/dL AST 42 H (15-37) U/L ALT 41 (16-63) U/L Alkaline Phosphatase 129 H (46-116) U/L Albumin 2.8 L (3.4-5.0) g/dL Urine 01/20/25 Range/Units 00:15 Urine Color Yellow (YELLOW) Urine Clarity Clear (CLEAR) Urine pH 6.0 (5.0-9.0) Ur Specific [place] 1.010 (1.005-1.025) Urine Protein Negative (NEG/TRACE) mg/dL Urine Glucose (UA) Negative (NEGATIVE) mg/dL Progress Note: A&P Assessment and Plan (1) Pneumonia: (2) Acute hypoxic respiratory failure: (3) COPD exacerbation: (4) Acute kidney injury: (5) Type 2 diabetes mellitus with hyperglycemia: (6) HTN (hypertension): (7) Mass of left knee: (8) Chronic pain of left knee: Plan Worsening renal function and unclear etiology. 2000 out after will and possible related to urinary retention. Does not seem fluid overload and no crackles in lungs and no edema. Renal function worse and resume IV fluids. Give dose IV lasix to help stimulate kidneys. Check US kidneys. Continue antibiotics, steroids, and breathing treatments for pneumonia. Continue PT/OT. Monitor labs. Urinary Catheter Management Urinary Catheter Management Urethral: Cath placed during this visit: no
[2025-01-20] MEDS: [UNRECOGNIZED DRUG - MIXTURE] IH (11:35)
--- NOTE | 2025-01-20 11:39 | PT.DAILY ---
Physical Therapy Daily Note PT Daily Note/Assess Start: 01/20/25 11:26 Freq: Status: Active Protocol: Document 01/20/25 11:00 KELLY (Rec: 01/20/25 11:39 KELLY [id number]) Physical Therapy Daily Note/Assessment Time In/Time Out Time In 11:00 Time Out 11:24 Subjective Subjective Patient reports feeling good today, doing a lot better than yesterday and last night. Nursing reports okay to do therapy today. Therapeutic Exercise Time Therapeutic Exercise 16 Minutes (minutes) Therapeutic Exercise 1 Units Therapeutic Exercise Treatment Therapeutic Exercise Supine Exercises: Treatment Ankle pumps x 10 Heel raises x 10 SLR x 10 QS x 10 GS x 10 Seated exercises: LAQ x 10 Therapeutic Activity Time Therapeutic Activity 8 Minutes (minutes) Therapeutic Activity 1 Units Therapeutic Activity Treatment Bed Mobility Ability Minimum Assist Therapeutic Activity Patient completed supine to sit EOB transfer with MIN A Comments . Completed LAQ while sitting EOB, demonstrating good core stability with ability to stay upright independently. Patient able to scoot self to HOB prior to sit to supine. Total Physical Therapy Time Total Therapy 24 Minutes Total Physical 2 Therapy Units Summary Daily Note Summary Patient able complete exercises and bed mobility with with O2 stats staying above 95 throughout, while on 4 LO2. Patient reports feeling good throughout treatment, feeling mildly fatigued after supine exercises but agreeable to sit EOB. Patient demonstrates improved bed mobility with MIN A required for assistance. Patient in bed with bed rails up, call light in reach and all needs met post treatment. Continue to recommend SNF at DC to regain strength allowing for return to prior level of function.
--- NOTE | 2025-01-20 13:35 | SWNOTE1 ---
DREA faxed over updated PT note, progress note, labs, vitals, and nursing notes to Ginette at [facility].
[2025-01-20 14:19] LABS: Anion Gap 16.1; BUN Creatinine Ratio 14.8; Calcium 8.5 mg/dL (8.5-10.1); Carbon Dioxide 19.6 mmol/L (21.0-32.0); Chloride 94 mmol/L (98-107); Estimated GFR (African America 16 (>=60 mL/min/1.73m^2); Estimated GFR (Non-African Ame 13 (>=60 mL/min/1.73m^2); Glucose 272 mg/dL (74-106); Potassium 5.7 mmol/L (3.5-5.1)
[2025-01-20 14:22] LABS: Sodium 124 mmol/L (136-145)
[2025-01-20 15:59] LABS: Glucometer 266 mg/dL (74-106)
--- NOTE | 2025-01-20 17:14 | OT.DAILY ---
Occupational Therapy Daily Note OT Inpatient Daily Visit Note Start: 01/19/25 10:40 Freq: Status: Active Protocol: Document 01/20/25 17:07 [id number] (Rec: 01/20/25 17:14 [id number]) OT Visit Details Time In/Time Out Time In 16:45 Time Out 17:00 OT Treatment Plan Subjective Subjective Pt awake and alert. Oriented to person and place. Agreeable to self care tasks at this time. Objective Objective Pt sitting up in bed agreeable to self care. Min A sitting on EOB, 3-5 VCs and assist to maintain posture and ASHLEY. Pt audibly wheezing after transfer. Denies feeling lightheaded or dizzy. With set-up of supplies Pt washed face and neck. Sitting on EOB to supine requires Min A with 3-5 VCs for position and safety. Pt was pleasant and talkative, no questions regarding self care. Assessment Assessment Pt being transferred tonight to facility per nursing. Denies pain following session. Left in bed, call light within reach. Continue OT POC. 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
--- NOTE | 2025-01-20 19:38 | PM.DS1 ---
DS: Providers Provider Date of admission: 01/19/25 00:03 Primary care physician: Non-Staff Physician, Consults: 01/19/25 Consult to Dietitian Routine Reason for consultation: poor appetite/little food Consult to [employer] Routine Reason for consult:: Financial Concerns 01/19/25 09:00 Occupational Therapy Eval and Treat Routine Reason for consultation: Weakness Has provider been notified: No Physical Therapy Eval and Treat Routine Reason for consultation: Weakness Has provider been notified: No DS: Diagnosis Discharge Diagnosis (1) Acute kidney injury: (2) Pneumonia: (3) Acute hypoxic respiratory failure: (4) COPD exacerbation: (5) Type 2 diabetes mellitus with hyperglycemia: (6) HTN (hypertension): (7) Mass of left knee: (8) Chronic pain of left knee: DS: Summary Hospital Course Hospital Course: Reason for admission: See H&P for details. 69 y/o male to ER with cough and worsening left knee pain. History of left TKA then infection and revision in 2018. Problems for years and now with loosening of hardware and mass. Seen by ortho and referred to [facility] with apointment scheduled 01/24. Increased pain over past few days and having difficulty with ambulation. C/o cough and SOB for 3-4 days. Chest tight and hard to take deep breath. SOB with exertion. Frequent cough and sputum. To ER and WBC 12.0. Chest x-ray with pneumonia and found hypoxia in ER with SpO2 85% on room air. Labs with ELIZABETH. Placed on oxygen and admitted. Hospital course: Started rocephin and zithromax for pneumonia. Started solu-medrol and DuoNeb for COPD exacerbation. Started IV fluids for ELIZABETH. SOB and cough stable. Started PT/OT for weakness. Resumed home medication but held mobic. Renal function worsened and continued IV fluids. Nursing concerned of fluid overload and stopped fluids. Developed SOB and worsening hypoxia. Placed on vapotherm then BiPAP. Chest x-ray with possible fluid overload and given IV lasix. Labs showed worsening renal function. Nino placed and 2 L urine out. Breathing improved and able to wean back to nasal canula. Mild SOB but increased sedation. Repeat labs show continued elevation of creatinine. Decreased urine output. Lungs without crackles and no peripheral edema. Resumed IV fluids. US kidneys and bladder normal. Repeat labs again showed worsening renal function. [place] [facility] Patient accepted by hospitalist. [place] [facility] [place]. Time Spent with Patient Time attestation: Total time spent providing and/or coordinating discharge services: Time spent: greater than 30 minutes Exam Constitutional Vital Signs, click to edit/add: Last Vital Signs Temp 97.2 F L 01/20/25 02:25 Pulse 100 H 01/20/25 18:00 Resp 19 01/20/25 12:00 BP 125/70 01/20/25 12:00 Pulse Ox 98 01/20/25 16:00 O2 Del Method Nasal Cannula 01/20/25 16:00 O2 Flow Rate 2 01/20/25 16:00 FiO2 35 01/20/25 07:11 Documenting provider has reviewed patient's vital signs: yes Common normals: no apparent distress, oriented x3 and alert HENMT Common normals: normocephalic Eye Common normals: PERRL and EOMs intact bilaterally Respiratory Auscultation: wheezes expiratory wheezes Cardio Common normals: regular rate, regular rhythm, no gallops, no murmurs and no rub GI Common normals: Normal to inspection, nondistended, normoactive bowel sounds present and non-tender Extremity Common normals: no pedal edema DS: Data Data Completed and Pending Labs on day of discharge: Labs from last 24 hours 01/20/25 01/20/25 01/20/25 15:54 14:00 11:01 WBC RBC Hgb Hct MCV MCH MCHC RDW Plt Count MPV Seg Neuts % (Manual) Lymphocytes % (Manual) Monocytes % (Manual) Eosinophils % (Manual) Basophils % (Manual) Neutrophils # (Manual) Lymphocytes # (Manual) Monocytes # (Manual) Eosinophils # (Manual) Basophils # (Manual) Puncture Site ABG pH ABG pCO2 ABG pO2 ABG HCO3 ABG O2 Saturation ABG Base Excess [place] Test O2 Liters/Min FiO2 Sodium 124 L* Potassium 5.7 H Chloride 94 L Carbon Dioxide 19.6 L Anion Gap 16.1 BUN 66.0 H Creatinine 4.46 H Est GFR ( Amer) 16 L Est GFR (Non-Af Amer) 13 L BUN/Creatinine Ratio 14.8 Glucose 272 H Calcium 8.5 Total Bilirubin AST ALT Alkaline Phosphatase NT-Pro-B Natriuret Pep Total Protein Albumin Globulin Albumin/Globulin Ratio Urine Color Urine Clarity Urine pH Ur Specific [place] Urine Protein Urine Glucose (UA) Urine Ketones Urine Occult Blood Urine Nitrite Urine Bilirubin Urine Urobilinogen Ur Leukocyte Esterase Specimen Source A.calcoaceticus-baumannii cmplx PCR Bacteroides fragilis Dora albicans (PCR) Dora auris (PCR) C. glabrata (PCR) C. krusei (PCR) C. parapsilosis (PCR) C. tropicalis (PCR) C. neoform/gattii (PCR) Enterobacterales (PCR) E. cloacae complex PCR Enterococc faecalis PCR Enterococc faecium PCR E. coli (PCR) H. influenzae (PCR) Klebsiella aerogenes (PCR) Klebsiella oxytoca PCR K. pneumoniae group (PCR) List. monocytogenes PCR N. meningitidis (PCR) Proteus spp. (copies/mL) Salmonella spp. (PCR) Serratia marcescens PCR Staphylococcus sp PCR Staph aureus (PCR) mecA/C & MREJ Resist Gene mecA/C-Methicil Resis Gene mcr-1 Colist[place] Res Gene PCR Staph epidermidis (PCR) Staph lugdunensis (TEM-PCR) S. maltophilia (PCR) Streptococcus sp PCR Strep agalactiae (PCR) Strep pneumoniae (PCR) S. pyogenes (PCR) P. aeruginosa (PCR) Ailin/B-Vanco Res Genes blaIMP Car res Gene PCR KPC (blaKPC) Detect PCR NDM (blaNDM) Detect PCR OXA-48 Carbapenem Resis Gene (PCR) blaVIM Car Res Gene PCR CTX-M ESBL (PCR) POC Glucose 266 H 357 H 01/20/25 01/20/25 01/20/25 07:21 07:20 07:08 WBC RBC Hgb Hct MCV MCH MCHC RDW Plt Count MPV Seg Neuts % (Manual) Lymphocytes % (Manual) Monocytes % (Manual) Eosinophils % (Manual) Basophils % (Manual) Neutrophils # (Manual) Lymphocytes # (Manual) Monocytes # (Manual) Eosinophils # (Manual) Basophils # (Manual) Puncture Site L rad ABG pH 7.296 L* ABG pCO2 38.8 ABG pO2 79.3 L ABG HCO3 18.9 L ABG O2 Saturation 96.4 ABG Base Excess -7.6 L [place] Test Positive O2 Liters/Min 12/6 FiO2 35 Sodium 127 L Potassium 6.3 H* Chloride 95 L Carbon Dioxide 21.4 Anion Gap 16.9 BUN 62.0 H Creatinine 4.31 H Est GFR ( Amer) 17 L Est GFR (Non-Af Amer) 14 L BUN/Creatinine Ratio 14.4 Glucose 369 H Calcium 8.4 L Total Bilirubin 0.4 AST 42 H ALT 41 Alkaline Phosphatase 129 H NT-Pro-B Natriuret Pep Total Protein 6.4 Albumin 2.8 L Globulin 3.6 Albumin/Globulin Ratio 0.8 Urine Color Urine Clarity Urine pH Ur Specific [place] Urine Protein Urine Glucose (UA) Urine Ketones Urine Occult Blood Urine Nitrite Urine Bilirubin Urine Urobilinogen Ur Leukocyte Esterase Specimen Source A.calcoaceticus-baumannii cmplx PCR Bacteroides fragilis Dora albicans (PCR) Dora auris (PCR) C. glabrata (PCR) C. krusei (PCR) C. parapsilosis (PCR) C. tropicalis (PCR) C. neoform/gattii (PCR) Enterobacterales (PCR) E. cloacae complex PCR Enterococc faecalis PCR Enterococc faecium PCR E. coli (PCR) H. influenzae (PCR) Klebsiella aerogenes (PCR) Klebsiella oxytoca PCR K. pneumoniae group (PCR) List. monocytogenes PCR N. meningitidis (PCR) Proteus spp. (copies/mL) Salmonella spp. (PCR) Serratia marcescens PCR Staphylococcus sp PCR Staph aureus (PCR) mecA/C & MREJ Resist Gene mecA/C-Methicil Resis Gene mcr-1 [place] Res Gene PCR Staph epidermidis (PCR) Staph lugdunensis (TEM-PCR) S. maltophilia (PCR) Streptococcus sp PCR Strep agalactiae (PCR) Strep pneumoniae (PCR) S. pyogenes (PCR) P. aeruginosa (PCR) Ailin/B-Vanco Res Genes blaIMP Car res Gene PCR KPC (blaKPC) Detect PCR NDM (blaNDM) Detect PCR OXA-48 Carbapenem Resis Gene (PCR) blaVIM Car Res Gene PCR CTX-M ESBL (PCR) POC Glucose 363 H 01/20/25 01/20/25 01/20/25 05:13 00:20 00:15 WBC 7.4 RBC 3.75 L Hgb 11.6 L Hct 35.0 L MCV 93.3 MCH 30.9 MCHC 33.1 RDW 13.2 Plt Count 164 MPV 9.3 L Seg Neuts % (Manual) 93.0 H Lymphocytes % (Manual) 4.0 L Monocytes % (Manual) 3.0 Eosinophils % (Manual) 0.0 L Basophils % (Manual) 0.0 L Neutrophils # (Manual) 6.88 H Lymphocytes # (Manual) 0.29 L Monocytes # (Manual) 0.22 L Eosinophils # (Manual) 0.00 Basophils # (Manual) 0.00 Puncture Site ABG pH ABG pCO2 ABG pO2 ABG HCO3 ABG O2 Saturation ABG Base Excess [place] Test O2 Liters/Min FiO2 Sodium 127 L Potassium 6.5 H* Chloride 95 L Carbon Dioxide 21.0 Anion Gap 17.5 BUN 56.0 H Creatinine 4.12 H Est GFR ( Amer) 18 L Est GFR (Non-Af Amer) 15 L BUN/Creatinine Ratio 13.6 Glucose 382 H Calcium 8.5 Total Bilirubin AST ALT Alkaline Phosphatase NT-Pro-B Natriuret Pep 762.0 Total Protein Albumin Globulin Albumin/Globulin Ratio Urine Color Yellow Urine Clarity Clear Urine pH 6.0 Ur Specific [place] 1.010 Urine Protein Negative Urine Glucose (UA) Negative Urine Ketones Negative Urine Occult Blood Negative Urine Nitrite Negative Urine Bilirubin Negative Urine Urobilinogen 0.2 Ur Leukocyte Esterase Negative Specimen Source A.calcoaceticus-baumannii cmplx PCR Bacteroides fragilis Doar albicans (PCR) Dora auris (PCR) C. glabrata (PCR) C. krusei (PCR) C. parapsilosis (PCR) C. tropicalis (PCR) C. neoform/gattii (PCR) Enterobacterales (PCR) E. cloacae complex PCR Enterococc faecalis PCR Enterococc faecium PCR E. coli (PCR) H. influenzae (PCR) Klebsiella aerogenes (PCR) Klebsiella oxytoca PCR K. pneumoniae group (PCR) List. monocytogenes PCR N. meningitidis (PCR) Proteus spp. (copies/mL) Salmonella spp. (PCR) Serratia marcescens PCR Staphylococcus sp PCR Staph aureus (PCR) mecA/C & MREJ Resist Gene mecA/C-Methicil Resis Gene mcr-1 Colist[place] Res Gene PCR Staph epidermidis (PCR) Staph lugdunensis (TEM-PCR) S. maltophilia (PCR) Streptococcus sp PCR Strep agalactiae (PCR) Strep pneumoniae (PCR) S. pyogenes (PCR) P. aeruginosa (PCR) Ailin/B-Vanco Res Genes blaIMP Car res Gene PCR KPC (blaKPC) Detect PCR NDM (blaNDM) Detect PCR OXA-48 Carbapenem Resis Gene (PCR) blaVIM Car Res Gene PCR CTX-M ESBL (PCR) POC Glucose 01/19/25 01/19/25 01/18/25 20:00 19:41 23:29 WBC RBC Hgb Hct MCV MCH MCHC RDW Plt Count MPV Seg Neuts % (Manual) Lymphocytes % (Manual) Monocytes % (Manual) Eosinophils % (Manual) Basophils % (Manual) Neutrophils # (Manual) Lymphocytes # (Manual) Monocytes # (Manual) Eosinophils # (Manual) Basophils # (Manual) Puncture Site Rr ABG pH 7.309 L ABG pCO2 40.2 ABG pO2 59.0 L* ABG HCO3 20.2 L ABG O2 Saturation 90.4 ABG Base Excess -6.1 L [place] Test Positive O2 Liters/Min 6 FiO2 Sodium Potassium Chloride Carbon Dioxide Anion Gap BUN Creatinine Est GFR ( Amer) Est GFR (Non-Af Amer) BUN/Creatinine Ratio Glucose Calcium Total Bilirubin AST ALT Alkaline Phosphatase NT-Pro-B Natriuret Pep Total Protein Albumin Globulin Albumin/Globulin Ratio Urine Color Urine Clarity Urine pH Ur Specific [place] Urine Protein Urine Glucose (UA) Urine Ketones Urine Occult Blood Urine Nitrite Urine Bilirubin Urine Urobilinogen Ur Leukocyte Esterase Specimen Source Blood A.calcoaceticus-baumannii cmplx PCR Not detected Bacteroides fragilis Not detected Dora albicans (PCR) Not detected Dora auris (PCR) Not detected C. glabrata (PCR) Not detected C. krusei (PCR) Not detected C. parapsilosis (PCR) Not detected C. tropicalis (PCR) Not detected C. neoform/gattii (PCR) Not detected Enterobacterales (PCR) Not detected E. cloacae complex PCR Not detected Enterococc faecalis PCR Not detected Enterococc faecium PCR Not detected E. coli (PCR) Not detected H. influenzae (PCR) Not detected Klebsiella aerogenes (PCR) Not detected Klebsiella oxytoca PCR Not detected K. pneumoniae group (PCR) Not detected List. monocytogenes PCR Not detected N. meningitidis (PCR) Not detected Proteus spp. (copies/mL) Not detected Salmonella spp. (PCR) Not detected Serratia marcescens PCR Not detected Staphylococcus sp PCR Detected A* Staph aureus (PCR) Not detected mecA/C & MREJ Resist Gene Not applicable mecA/C-Methicil Resis Gene Detected A* mcr-1 [place] Res Gene PCR Not applicable Staph epidermidis (PCR) Detected A* Staph lugdunensis (TEM-PCR) Not detected S. maltophilia (PCR) Not detected Streptococcus sp PCR Not detected Strep agalactiae (PCR) Not detected Strep pneumoniae (PCR) Not detected S. pyogenes (PCR) Not detected P. aeruginosa (PCR) Not detected Ailin/B-Vanco Res Genes Not applicable blaIMP Car res Gene PCR Not applicable KPC (blaKPC) Detect PCR Not applicable NDM (blaNDM) Detect PCR Not applicable OXA-48 Carbapenem Resis Gene (PCR) Not applicable blaVIM Car Res Gene PCR Not applicable CTX-M ESBL (PCR) Not applicable POC Glucose 311 H Preliminary micro results at discharge 01/18/25 23:34 Blood Culture Result 2 - Preliminary Blood - Left Forearm NO GROWTH AT 36-48 HOURS. FINAL TO FOLLOW. 01/18/25 23:29 Blood Culture Result 1 - Preliminary Blood - Left Antecubital Discharge Plan Discharge Disposition: [facility] Condition: Fair
== END 2025-01-20 21:00 | disposition short-term general hospital (02) | DRG 193 ==
LOC: ER 23:25 → MS 01-19 00:06 → ICU 01-20 01:44
PROVIDERS: Family Medicine; Registered Nurse; Admitting Provider Family Medicine; Emergency Provider Emergency Medicine; Visit Provider Family Medicine
DX: J18.9 Pneumonia, unspecified organism (principal); J96.01 Acute respiratory failure with hypoxia; N17.9 Acute kidney failure, unspecified; J44.0 Chronic obstructive pulmonary disease with (acute) lower respiratory infection; J44.1 Chronic obstructive pulmonary disease with (acute) exacerbation; T84.033A Mechanical loosening of internal left knee prosthetic joint, initial encounter; M19.011 Primary osteoarthritis, right shoulder; F32.A Depression, unspecified; R29.6 Repeated falls; E11.40 Type 2 diabetes mellitus with diabetic neuropathy, unspecified; Z79.84 Long term (current) use of oral hypoglycemic drugs; Z96.652 Presence of left artificial knee joint; E11.65 Type 2 diabetes mellitus with hyperglycemia; I10 Essential (primary) hypertension; M25.562 Pain in left knee; G89.29 Other chronic pain; R22.42 Localized swelling, mass and lump, left lower limb
CPT/HCPCS: 36415; 36600; 71045; 73562; 73564; 76770; 80048; 80053; 81001; 81003; 82805; 82948; 83605; 83880; 85007; 85025; 85027; 87040; 87150; 87804; 87811; 93005; 94640; 94660; 94667; 94668; 94761; 94799; 96365; 96368; 96375; 97110; 97161; 97165; 97530; 97535; 99285; J0456; J0696; J1644; J1885; J1940; J2919

== ENCOUNTER 2025-02-28 12:39 | Outpatient (OUT) | payer OTHER, SELFPAY | END 2025-02-28 12:40 | disposition home or self-care (01) | LOC: PST 12:39 | PROVIDERS: Visit Provider Urology | DX: Z01.818 Encounter for other preprocedural examination (principal); N40.1 Benign prostatic hyperplasia with lower urinary tract symptoms ==

== ENCOUNTER 2025-03-09 09:26 | Day surgery (SDC) | payer OTHER, SELFPAY ==
--- OUTSIDE RECORDS SUMMARY | 2025-03-02 | XMS_ITS ---
Author Name Auto Generated Organization OHIP Support Name Relationship Address Phone [place] [address] + Tori[place]etal[place] [address] + JOIE LU Next of Kin Unknown [phone] JOIE LU Next of Kin Unknown [phone] JOIE LU Next of Kin Unknown [phone] JOIE LU Next of Kin Unknown [phone] JOIE LU Next of Kin Unknown [phone] JOIE LU Next of Kin Unknown [phone] MASON LU Next of Kin Unknown [phone] MASON LU Next of Kin Unknown [phone] MASON LU Next of Kin Unknown [phone] JOIE LU Next of Kin Unknown [phone] VICKY LUENCE Next of Kin Unknown [phone] VICKY LUENCE Next of Kin Unknown [phone] MASON LU Next of Kin Unknown [phone] MASON LU Next of Kin Unknown [phone] VICKY LUY Next of Kin Unknown [phone] VICKY LUY Next of Kin Unknown [phone] VICKY LUY Next of Kin Unknown [phone] MASON LU Next of Kin Unknown [phone] MASON LU Next of Kin Unknown [phone] Aly III, Joie Next of Kin Unknown [phone] MASON LU Next of Kin Unknown [phone] Aly III, Joie Next of Kin Unknown [phone] VICKY LUY Next of Kin Unknown [phone] Aly III, Joie Next of Kin Unknown [phone] Aly III, Joie Next of Kin Unknown [phone] Aly III, Joie Next of Kin Unknown [phone] Care Team Providers Care Director Multimedia Name Role Phone DARIA CHAMPION Attending Unavailabl e SHAIKH GROVE Attending Unavailable CHAMPION, DARIA Attending Unavailabl e BROWN, LAUREN Vilchis Attending Unavailable CHAMPION, DARIA Attending Unavailabl e CHAMPION, DARIA Attending Unavailabl e MARCO IZQUIERDO Attending Unavailable CHAMPION, DARIA Referring Unavailabl e ABBI DELGADO Attending Unavailable CHAMPION, DARIA Referring Unavailabl LAUREN Portillo Attending Unavailable CHAMPION, DARIA Attending Unavailabl e CHAMPION, DARIA Attending Unavailabl e LAUREN SHETH Attending Unavailable Linden HINSON, Linh Nichols Attending U christiano Grove MD, [facility] Jennifer HINSON, Linh Nichols Attending U christiano Grove MD, [facility] Jennifer Cespedes MD, Johnny Pearson Attending Federico Grove MD, [facility] Kevyn cody HINSON, Linh Nichols Attending U christiano Grove MD, [place] Kevyn cody HINSON, Linh Nichols Attending U christiano Grove MD, [facility] CASSY Cohn Referring Unavailable REGAN ORTEGA Primary Care Unavailable JUSTIN MCGOWAN Referring Unavailable SHAIKH GROVE Primary Care Unavailable JUSTIN MCGOWAN Referring Unavailable FAWWAD, CALVO Primary Care Unavailable Supa Perez Admitting UnavailFredy Calhoun Consulting Unavailable Fawwad, Calvo Primary Care Unavailable Ori Fields Attending Unavailable Eufemia Edward Consulting Unavailable ElizabethDeion jones Consulting Unavailable Bakhous, Galindo Consulting Unavailable Magdy Petit Consulting Unavailable ROBERTO NEAL Referring Unavailable NADERER, REGAN A Primary Care Unavailable SUKALAC, PARTHA Attending Unavailable NADERER, REGAN A Primary Care Unavailable SUKALAC, PARTHA Attending Unavailable NADERER, REGAN A Primary Care Unavailable CASSY NUNEZ Referring Unavailable NADERER, REGAN A Primary Care Unavailable MAYRACASSY HELTON Attending Unavailable NADERER, REGAN A Primary Care Unavailable CARMEN WILLIAM Attending Unavailable NADERER, REGAN A Primary Care Unavailable JOHANA QUINTANA Attending Unavailable Laz CHEN Attending Unavailable ERICKADERRICK Referring Unavailable ERICKA, DERRICK Cruz Referring Unavailable ERICKA, DERRICK Cruz Referring Unavailable ERICKA, DERRICK Cruz Referring Unavailable ERICKA, DERRICK Cruz Referring Unavailable SHENDGECHUN Attending Unavailable ERICKA, DERRICK Cruz Attending Unavailable SHENDGE, VITHAL Referring Unavailable SHENDGE, FRANCISCOHAL Referring Unavailable PROBLEMS DATE TYPE CONDITION / CODE ATTENDING STATUS [facility] 02/07/2025 Active Status post left knee replacement / Z96.652(ICD-10) NA [facility] 02/07/2025 Active Pre-op testing / Z01.818(ICD-10) [facility] 01/20/2025 Unknown Acute kidney failure, unspecified / N17.9(ICD-10) [facility] 01/20/2025 Unknown Hypo-osmolality and hyponatremia / E87.1(ICD-10) [facility] 01/20/2025 Unknown Poisoning by oth er antiepileptic and sedative-hypnotic drugs, accidental (unintentional), initial encounter / T42.6X1A(ICD-10) [facility] 01/20/2025 Unknown Obstructive and reflux uropathy, unspecified / N13.9(ICD-10) [facility] 01/20/2025 Unknown Hypothyroidism, unspecified / E03.9(ICD-10) [facility] 01/20/2025 Unknown Essential (prima ry) hypertension / I10(ICD-10) [facility] 01/20/2025 Unknown Type 2 diabetes mellitus without complications / E11.9(ICD-10) [facility] 01/20/2025 Unknown Abnormal finding s on diagnostic imaging of other specified body structures / R93.89(ICD-10) [facility] 01/20/2025 Unknown Acute respirator y failure with hypoxia / J96.01(ICD-10) [facility] 01/20/2025 Unknown Pneumonia, unspecified organism / J18.9(ICD-10) [facility] 01/20/2025 Unknown Hyperkalemia / E87.5(ICD-10) [facility] 01/20/2025 Unknown Acidosis, unspecified / E87.20(ICD-10) [facility] 01/20/2025 Unknown Pain in unspecif ied knee / M25.569(ICD-10) [facility] 01/20/2025 Unknown Other chronic pa in / G89.29(ICD-10) [facility] 01/20/2025 Unknown Other specified chronic obstructive pulmonary disease / J44.89(ICD-10) [facility] 12/22/2024 Admitting Diagnosis Infection and inflammatory reaction due to other internal joint prosthesis, subsequent encounter / T84.59XD(ICD-10) NA [facility] 12/22/2024 Admitting Diagnosis Presence of unspecified artificial knee joint / Z96.659(ICD-10) NA [facility] 12/22/2024 Admitting Diagnosis Localized swelling, mass and lump, left lower limb / R22.42(ICD-10) NA [facility] 12/22/2024 Admitting Diagnosis Presence of right artificial knee joint / Z96.651(ICD-10) NA [facility] 12/22/2024 Admitting Diagnosis Localized osteoporosis ([place]ne) / M81.6(ICD-10) DERRICK BARNETT [facility] 12/22/2024 Admitting Diagnosis Mechanical loosening of internal left knee prosthetic joint, initial encounter / T84.033A(ICD-10) [facility] 09/12/2024 Admitting Diagnosis Pain in right knee / M25.561(ICD-10) [facility] 09/12/2024 Admitting Diagnosis Pain in left knee / M25.562(ICD-10) CHUN ROSADO [facility] 11/08/2023 Active Pyogenic arthrit is of left knee joint, due to unspecified organism (HCC) / M00.9(ICD-10) [facility] 07/04/2024 Admitting diagnosis Type 2 diabetes mellitus without complications / E11.9(ICD-10) [facility] 06/13/2024 Admitting diagnosis Effusion, right knee / M25.461(ICD-10) [facility] 06/13/2024 Admitting diagnosis Effusion, left knee / M25.462(ICD-10) [facility] PROCEDURES No Procedure Records Found RESULTS PROGRESS Observed: 02/08/2025 8:21 AM Status: COMPLETED Source: [facility] ID: [id number] Author: NATALIYA MIKE RN Service: ? Author Type: Registered Nurse Type: Progress Notes Filed: 02/10/2025 13:45 Note Text: ORTHO CARE COORDINATION QUICK NOTE Patient has been identified by name and date of : yes The purpose of this encounter is to schedule LTKA revision at on May 08, 2025 Nataliya Mike RN STAPHYLOCOCCUS AUREUS AND MR SA SCREEN, PCR, NASAL Collected: 02/07/2025 11:40 AM Status: F Source: [facility] Order Comment: Specimen Type : SWAB Ordering Facility: [facility] Address: [address] [place] [address] TYPE CODE TESTS RESULT OUT OF RANGE REFERENCE UNITS LAB 00644-5(LOINC ) SA+MRSA Pnl Nose RUTH+probe Methicillin-SUSCE PTIBLE Staphylococcus aureus Detected Abnormal Not Detected Performed By: #### SAPCR ### # [facility] CLIA [id number] [address] [place] [address] [place] PROGRESS Observed: 02/07/2025 11:16 AM Status: COMPLETED Source: [facility] ID: [id number] Author: CASSY NUNEZ MD Service: ? Author Type: Physician Type: Progress Notes Filed: 02/07/2025 11:57 Note Text: L knee pain Joie Lu JR is a 69 year old male that returns today to follow up/discuss results of their left LTKA. Pt. feels their overall condition is worse. Does the Pt. still experience pain? Yes 01/26 Oxycodone 5/ Current treatment plan includes: Physical Therapy: Yes Home Exercise Program: No -[facility] NSAIDS: None Pain Medication: Oxycodone - with relief Scheduled for LTKA revision DOS 05/08/2025 at 20 minutes spemnt discussing R/B?A Cassy Nunez MD CNOV Observed: 02/07/2025 10:00 AM Status: COMPLETED Source: [facility] Office Visit (MIRIAM) ALYJOIE ([id number]) 1955 M Date Time Provider Department 02/07/25 10:00 AM CASSY NUNEZ During your visit today, we recorded the following information about you: Cassy Nunez MD 02/07/2025 11:57 AM Signed L knee pain Joie Lu JR is a 69 year old male that returns today to follow up/discuss results of their left LTKA. Pt. feels their overall condition is worse. Does the Pt. still experience pain? Yes 01/26 Oxycodone 5/325 Current treatment plan includes: Physical Therapy: Yes Home Exercise Program: No -[facility] NSAIDS: None Pain Medication: Oxycodone - with relief Scheduled for LTKA revision DOS 05/08/2025 at 20 minutes spemnt discussing R/B?A Cassy Nunez MD Allergies As of Date: 02/07/2025 Noted Allergy Reaction MORPHINE 05/25/2014 2 - Rash 9 - Itching BEE STING 08/18/2018 7 - Swelling 10 - Anaphylaxis PENICILLINS 01/16/2015 9 - Itching Date Reviewed: 02/07/2025 Reviewed by: Michel Rayo-DIPTI Madrigal - Fully Assessed Reason for Visit: Established Patient [175] Primary Visit Diagnosis:Status post left knee replacement [Z96.652] Other Visit Diagnosis:Pre-op testing [Z01.818] Order(s):mupirocin (BACTROBAN) 2 % ointmentApply to both nares twice daily for the five days preceding your joint replacement surgeryDisp: 22 gRfl: 0 STAPHYLOCOCCUS AUREUS AND MRSA SCREEN, PCR, NASAL [SQSAPCR] Order #: [id number] FUTURE Prescriptions as of 02/07/2025 - oxyCODONE-acetaminophen (PERCOCET) 5-325 mg tablet Take 1 tablet by mouth every 6 hours as needed for pain. - mupirocin (BACTROBAN) 2 % ointment Apply to both nares twice daily for the five days preceding your joint replacement surgery - clonazePAM (KLONOPIN) 1 mg tablet Take [...] once daily. Problem List As Of Date 02/07/2025 Noted Resolved Acute pain of left knee [...] Clostridium difficile infection [Z86.19] 12/01/2012 DVT prophylaxis [MJZ7311] 12/01/2012 Metatarsalgia [M77.40] 01/23/2014 Infection and inflammatory [...] [J32.8] 10/31/2022 Acute recurrent frontal sinusitis [J01.11] 10/31/2022 Community acquired pneumonia of left lower lobe*11/06/2023 Abscess of knee, left [L02.416] 11/06/2023 Knee swelling [M25.469] 11/06/2023 Hernandez's cyst of knee, left [M71.22] 11/08/2023 Prescriptions ordered this encounter Disp Refills Start End MUPIROCIN 2 % TOPICAL OINTMENT 22 g 0 02/07/2025 Class: Print RX Sig: Apply to both nares twice daily for the five days preceding your joint replacement surgery Level of Service: OFFICE/OUTPATIENT ESTABLISHED LOW MDM 20 MIN [54054] Additional E/M codes: VISIT CPLX INHERENT EANDM ASSOC WITH MED * Encounter Status:Closed by CASSY NUNEZ on 02/07/25 PROGRESS Observed: 02/07/2025 9:45 AM Status: COMPLETED Source: [facility] ID: [id number] Author: MARILUZ MARQUEZ RT(Lindsey) Service: Radiology Author Type: Technologist Type: Progress Notes Filed: 02/07/2025 09:33 Note Text: Radiology Service Progress Note PATIENT NAME: Joie Lu JR DATE OF SERVICE: February 07, 2025 TIME: 9:31 AM PATIENT IDENTITY VERIFICATION COMPLETED USING TWO [...] place to prevent falls during this visit? Instructed Patient to Remain Seated (Not on Exam Table) Until Exam PATIENT GENDER DATA: Assigned male at PATIENT RELEVANT IMPLANT DATA REVIEWED: Not Applicable PATIENT PRESENTS WITH AN IMPLANTABLE OR ATTACHED RESTAURANT MGR: No RADIOLOGY DEPARTMENT: General X-ray: Exam(s) Completed: Lower Extremity X-Ray(s): Knee, AP / Lat / Merchant Left PERIPHERAL IV DATA: Not applicable SIGNED BY: RT Anderson(R) February 07, 2025 9:31 AM XR KNEE 3V AP/LAT/MERCHANT LT Observed: 02/07/2025 9:38 AM Status: F Source: [facility] * * *Final Report* * * DATE OF EXAM: Feb 07 2025 9:38AM AFR [id number] - XR KNEE 3V AP/LAT/MERCHANT LT / PROCEDURE REASON: Status post left knee replacement * * * * Physician Interpretation * * * * EXAMINATION / TECHNIQUE: XR KNEE 3V AP/LAT/MERCHANT LT HISTORY: REVISION LEFT KNEE Status post left knee replacement COMPARISON: 07/22/2024. FINDINGS: Status post total knee arthroplasty with orthopedic hardware in standard position and alignment. There is no periprosthetic lucency or fracture. Prominent tissue density along the medial aspect of the knee is unchanged. IMPRESSION: Status post total knee arthroplasty without evidence of complication. Director Of Operations Home Health: PSCVanessa Transcribe Date/Time: Feb 07 2025 10:23A Dictated by : LOPEZ REYNOLDS MD This examination was interpreted and the report reviewed and electronically signed by: LOPEZ REYNOLDS MD on Feb 07 2025 10:26AM EST [id number] PATIENT EDUCATION Observed: 01/26/2025 10:09 AM Status: F Source: [facility] Patient Education Urology Benign Prostatic Hyperplasia Benign prostatic hyperplasia (BPH) is an enlarged prostate gland that is caused by the normal aging process. The prostate may get bigger as a man gets older. The condition is not caused by cancer. The prostate is a walnut-sized gland that is involved in the production of semen. It is located in front of the rectum and below the bladder. The bladder stores urine. The urethra carries stored urine out of the body. An enlarged prostate can press on the urethra. This can make it harder to pass urine. The buildup of urine in the bladder can cause infection. Back pressure and infection may progress to bladder damage and kidney (renal) failure. What are the causes? This condition is part of the normal aging process. However, not all men develop problems from this condition. If the prostate enlarges away from the urethra, urine flow will not be blocked. If it enlarges toward the urethra and compresses it, there will be problems passing urine. What increases the risk? This condition is more likely to develop in men older than 50 years. What are the signs or symptoms? Symptoms of this condition include: ??? Getting up often during the night to urinate. ??? Needing to urinate frequently during the day. ??? Difficulty starting urine flow. ??? Decrease in size and strength of your urine stream. ??? Leaking (dribbling) after urinating. ??? Inability to pass urine. This needs immediate treatment. ??? Inability to completely empty your bladder. ??? Pain when you pass urine. This is more common if there is also an infection. ??? Urinary tract infection (UTI). How is this diagnosed? This condition is diagnosed based on your medical history, a physical exam, and your symptoms. Tests will also be done, such as: ??? A post-void bladder scan. This measures any amount of urine that may remain in your bladder after you finish urinating. ??? A digital rectal exam. In a rectal exam, your health care provider checks your prostate by putting a lubricated, gloved finger into your rectum to feel the back of your prostate gland. This exam detects the size of your gland and any abnormal lumps or growths. ??? An exam of your urine (urinalysis). ??? A prostate specific antigen (PSA) screening. This is a blood test used to screen for prostate cancer. ??? An ultrasound. This test uses sound waves to electronically produce a picture of your prostate gland. Your health care provider may refer you to a specialist in kidney and prostate diseases (urologist). How is this treated? Once symptoms begin, your health care provider will monitor your condition (active surveillance or watchful waiting). Treatment for this condition will depend on the severity of your condition. Treatment may include: ??? Observation and yearly exams. This may be the only treatment needed if your condition and symptoms are mild. ??? Medicines to relieve your symptoms, including: ? Medicines to shrink the prostate. ? Medicines to relax the muscle of the prostate. ??? Surgery in severe cases. Surgery may include: ? Prostatectomy. In this procedure, the prostate tissue is removed completely through an open incision or with a laparoscope or robotics. ? Transurethral resection of the prostate (TURP). In this procedure, a tool is inserted through the opening at the tip of the penis (urethra). It is used to cut away tissue of the inner core of the prostate. The pieces are removed through the same opening of the penis. This removes the blockage. ? Transurethral incision (TUIP). In this procedure, small cuts are made in the prostate. This lessens the prostate's pressure on the urethra. ? Transurethral microwave thermotherapy (TUMT). This procedure uses microwaves to create heat. The heat destroys and removes a small amount of prostate tissue. ? Transurethral needle ablation (TUNA). This procedure uses radio frequencies to destroy and remove a small amount of prostate tissue. ? Interstitial laser coagulation (ILC). This procedure uses a laser to destroy and remove a small amount of prostate tissue. ? Transurethral electrovaporization (TUVP). This procedure uses electrodes to destroy and remove a small amount of prostate tissue. ? Prostatic urethral lift. This procedure inserts an implant to push the lobes of the prostate away from the urethra. Follow these instructions at home: ??? Take twbq-hxy-tykmpod and prescription medicines only as told by your health care provider. ??? Monitor your symptoms for any changes. Contact your health care provider with any changes. ??? Avoid drinking large amounts of liquid before going to bed or out in public. ??? Avoid or reduce how much caffeine or alcohol you drink. ??? Give yourself time when you urinate. ??? Keep all follow-up visits. This is important. Contact a health care provider if: ??? You have unexplained back pain. ??? Your symptoms do not get better with treatment. ??? You develop side effects from the medicine you are taking. ??? Your urine becomes very dark or has a bad smell. ??? Your lower abdomen becomes distended and you have trouble passing urine. Get help right away if: ??? You have a fever or chills. ??? You suddenly cannot urinate. ??? You feel light-headed or very dizzy, or you faint. ??? There are large amounts of blood or clots in your urine. ??? Your urinary problems become hard to manage. ??? You develop moderate to severe low back or flank pain. The flank is the side of your body between the ribs and the hip. These symptoms may be an emergency. Get help right away. Call 911. ??? Do not wait to see if the symptoms will go away. ??? Do not drive yourself to the hospital. Summary ??? Benign prostatic hyperplasia (BPH) is an enlarged prostate that is caused by the normal aging process. It is not caused by cancer. ??? An enlarged prostate can press on the urethra. This can make it hard to pass urine. ??? This condition is more likely to develop in men older than 50 years. ??? Get help right away if you suddenly cannot urinate. This information is not intended to replace advice given to you by your health care provider. Make sure you discuss any questions you have with your health care provider. Document Revised: 04/23/2022 Document Reviewed: 04/23/2022 [employer] Patient Education ? 2023 [employer]. AMBULATORY VISIT SUMMARY Observed: 01/26 8:58 AM Status: F Source: [facility] Ambulatory Visit Summary JOIE LU :1955 Visit Date:01/26/2025 Ambulatory Visit Instructions Your Diagnosis BPH with obstruction/lower urinary tract symptoms Urine retention Prostate cancer screening Other obstructive and reflux uropathy Your Care Team Attending Physician - MARIANO WALLIS, JOHANA Naylor Primary Care Physician - REGAN ORTEGA MD This Is Your Medications List acetaminophen-oxycodone (acetaminophen-oxycodone 325 mg-5 mg Tab) albuterol (albuterol 90 mcg/inh inhalation powder) amlodipine (amLODIPine 5 mg Tab) busPIRone (busPIRone 30 mg oral tablet) clonazepam (clonazepam 1 mg Tab) cyclobenzaprine (cyclobenzaprine 10 mg Tab) docusate (Colace 100 mg Cap) ferrous sulfate (ferrous sulfate 325 mg oral enteric coated tablet) fluticasone (fluticasone propionate) fluticasone-salmeterol (Wixela Inhub 250 mcg-50 mcg inhalation powder) gabapentin (gabapentin 600 mg Tab) glimepiride (glimepiride 2 mg Tab) guaifenesin (guaiFENesin 600 mg ER Tab) hydrOXYzine (hydrOXYzine hydrochloride 50 mg oral tablet) levofloxacin (levofloxacin 750 mg Tab) levothyroxine (levothyroxine 125 mcg (0.125 mg) Tab) lisinopril (lisinopril 20 mg Tab) multivitamin (Multiple Vitamins oral capsule) nystatin (nystatin 100,000 units/mL Oral Susp) polyethylene glycol 3350 prazosin (prazosin 1 mg Cap) rosuvastatin (rosuvastatin 5 mg Tab) tamsulosin (tamsulosin 0.4 mg Cap) tiotropium (Spiriva Respimat 10 ACT 2.5 mcg/inh inhalation aerosol) venlafaxine (Effexor XR 150 mg Cap-ER) Procedures Performed Back, Cholecystectomy, Vasectomy. Discharge Vitals Heart Rate (Peripheral) 87 Respiratory Rate 16 Blood Pressure 150/83 Height 194 cm Height 76 in Weight 135 kg Weight 297.624 lb BMI 35.87 What to do next You Need to Schedule the Following Appointments Follow Up with [facility] When: Comments: our kindergarten aide will be contacting you for follow-up Where: [address] [place] [address] Business (1) Medications What How Much When Instructions Unchanged acetaminophen-oxycodone (acetaminophen-oxycodone 325 mg-5 mg Tab) 1 Tablets By Mouth Every 6 hours Unchanged albuterol (albuterol 90 mcg/ inh inhalation powder) 90 Microgram Inhalation Every 6 hours Unchanged amlodipine (amLODIPine 5 mg Tab) 1 Tablets By Mouth Every day Unchanged busPIRone (busPIRone 30 mg oral tablet) 1 Tablets By Mouth 2 times a day Unchanged clonazepam (clonazepam 1 mg Tab) 1 Tablets By Mouth 3 times a day Unchanged cyclobenzaprine (cyclobenzaprine 10 mg Tab) 1 Tablets By Mouth 3 times a day as needed for for spasm Unchanged docusate (Colace 100 mg Cap) 1 Capsules By Mouth 2 times a day as needed for for constipation Unchanged ferrous sulfate (ferrous sulfate 325 mg oral enteric coated tablet) 1 Tablets By Mouth Every day Unchanged fluticasone (fluticasone propionate) 50 Microgram Inhalation 2 times a day Unchanged fluticasone-salmeterol (Wixela Inhub 250 mcg-50 mcg inhalation powder) 1 Inhalation Inhalation 2 times a day Unchanged gabapentin (gabapentin 600 mg Tab) 1 Tablets By Mouth 3 times a day Unchanged glimepiride (glimepiride 2 mg Tab) 1 Tablets By Mouth Every day Unchanged guaifenesin (guaiFENesin 600 mg ER Tab) 1 Tablets By Mouth Every 12 hours Unchanged hydrOXYzine (hydrOXYzine hydrochloride 50 mg oral tablet) 1 Tablets By Mouth 3 times a day Unchanged levofloxacin (levofloxacin 750 mg Tab) 1 Tablets By Mouth Every 24 hours Unchanged levothyroxine (levothyroxine 125 mcg (0.125 mg) Tab) 1 Tablets By Mouth Every day Unchanged lisinopril (lisinopril 20 mg Tab) 1 Tablets By Mouth Every day Unchanged multivitamin (Multiple Vitamins oral capsule) 1 Capsules By Mouth Every day Unchanged nystatin (nystatin 100,000 units/ mL Oral Susp) 1 Milliliter By Mouth Every 6 hours For an infant give as one milliliter to each side of mouth Unchanged polyethylene glycol 3350 17 Gram By Mouth Every day Unchanged prazosin (prazosin 1 mg Cap) 1 Capsules By Mouth Every day Unchanged rosuvastatin (rosuvastatin 5 mg Tab) 1 Tablets By Mouth Every day Unchanged tamsulosin (tamsulosin 0.4 mg Cap) 1 Capsules By Mouth Every day Unchanged tiotropium (Spiriva Respimat 10 ACT 2.5 mcg/ inh inhalation aerosol) 2.5 Microgram Inhalation Every day Unchanged venlafaxine (Effexor XR 150 mg Cap-ER) 1 Capsules By Mouth Every day Allergies amoxicillin (Rash) cefdinir (Rash) morphine (Rash) Problems Ongoing - Any problem that you are currently receiving treatment for. Acute kidney failure Acute respiratory failure Anxiety BPH with obstruction/lower urinary tract symptoms Chronic obstructive pulmonary disease Depression Hyperlipidemia Hypertension Hypothyroidism Osteoarthritis Other abnormalities of gait and mobility Prostate cancer screening Type 2 diabetes mellitus with polyneuropathy Urine retention Patient Survey You may receive a survey via text or e-mail asking about your office visit. Please share your experience with us by completing your survey. We appreciate your feedback and thank you for choosing us for your care. Education Materials Benign Prostatic Hyperplasia Benign prostatic hyperplasia (BPH) is an enlarged prostate gland that is caused by the normal aging process. The prostate may get bigger as a man gets older. The condition is not caused by cancer. The prostate is a walnut-sized gland that is involved in the production of semen. It is located in front of the rectum and below the bladder. The bladder stores urine. The urethra carries stored urine out of the body. An enlarged prostate can press on the urethra. This can make it harder to pass urine. The buildup of urine in the bladder can cause infection. Back pressure and infection may progress to bladder damage and kidney (renal) failure. What are the causes? This condition is part of the normal aging process. However, not all men develop problems from this condition. If the prostate enlarges away from the urethra, urine flow will not be blocked. If it enlarges toward the urethra and compresses it, there will be problems passing urine. What increases the risk? This condition is more likely to develop in men older than 50 years. What are the signs or symptoms? Symptoms of this condition include: ??? Getting up often during the night to urinate. ??? Needing to urinate frequently during the day. ??? Difficulty starting urine flow. ??? Decrease in size and strength of your urine stream. ??? Leaking (dribbling) after urinating. ??? Inability to pass urine. This needs immediate treatment. ??? Inability to completely empty your bladder. ??? Pain when you pass urine. This is more common if there is also an infection. ??? Urinary tract infection (UTI). How is this diagnosed? This condition is diagnosed based on your medical history, a physical exam, and your symptoms. Tests will also be done, such as: ??? A post-void bladder scan. This measures any amount of urine that may remain in your bladder after you finish urinating. ??? A digital rectal exam. In a rectal exam, your health care provider checks your prostate by putting a lubricated, gloved finger into your rectum to feel the back of your prostate gland. This exam detects the size of your gland and any abnormal lumps or growths. ??? An exam of your urine (urinalysis). ??? A prostate specific antigen (PSA) screening. This is a blood test used to screen for prostate cancer. ??? An ultrasound. This test uses sound waves to electronically produce a picture of your prostate gland. Your health care provider may refer you to a specialist in kidney and prostate diseases (urologist). How is this treated? Once symptoms begin, your health care provider will monitor your condition (active surveillance or watchful waiting). Treatment for this condition will depend on the severity of your condition. Treatment may include: ??? Observation and yearly exams. This may be the only treatment needed if your condition and symptoms are mild. ??? Medicines to relieve your symptoms, including: ? Medicines to shrink the prostate. ? Medicines to relax the muscle of the prostate. ??? Surgery in severe cases. Surgery may include: ? Prostatectomy. In this procedure, the prostate tissue is removed completely through an open incision or with a laparoscope or robotics. ? Transurethral resection of the prostate (TURP). In this procedure, a tool is inserted through the opening at the tip of the penis (urethra). It is used to cut away tissue of the inner core of the prostate. The pieces are removed through the same opening of the penis. This removes the blockage. ? Transurethral incision (TUIP). In this procedure, small cuts are made in the prostate. This lessens the prostate's pressure on the urethra. ? Transurethral microwave thermotherapy (TUMT). This procedure uses microwaves to create heat. The heat destroys and removes a small amount of prostate tissue. ? Transurethral needle ablation (TUNA). This procedure uses radio frequencies to destroy and remove a small amount of prostate tissue. ? Interstitial laser coagulation (ILC). This procedure uses a laser to destroy and remove a small amount of prostate tissue. ? Transurethral electrovaporization (TUVP). This procedure uses electrodes to destroy and remove a small amount of prostate tissue. ? Prostatic urethral lift. This procedure inserts an implant to push the lobes of the prostate away from the urethra. Follow these instructions at home: ??? Take [id number] and prescription medicines only as told by your health care provider. ??? Monitor your symptoms for any changes. Contact your health care provider with any changes. ??? Avoid drinking large amounts of liquid before going to bed or out in public. ??? Avoid or reduce how much caffeine or alcohol you drink. ??? Give yourself time when you urinate. ??? Keep all follow-up visits. This is important. Contact a health care provider if: ??? You have unexplained back pain. ??? Your symptoms do not get better with treatment. ??? You develop side effects from the medicine you are taking. ??? Your urine becomes very dark or has a bad smell. ??? Your lower abdomen becomes distended and you have trouble passing urine. Get help right away if: ??? You have a fever or chills. ??? You suddenly cannot urinate. ??? You feel light-headed or very dizzy, or you faint. ??? There are large amounts of blood or clots in your urine. ??? Your urinary problems become hard to manage. ??? You develop moderate to severe low back or flank pain. The flank is the side of your body between the ribs and the hip. These symptoms may be an emergency. Get help right away. Call 911. ??? Do not wait to see if the symptoms will go away. ??? Do not drive yourself to the hospital. Summary ??? Benign prostatic hyperplasia (BPH) is an enlarged prostate that is caused by the normal aging process. It is not caused by cancer. ??? An enlarged prostate can press on the urethra. This can make it hard to pass urine. ??? This condition is more likely to develop in men older than 50 years. ??? Get help right away if you suddenly cannot urinate. This information is not intended to replace advice given to you by your health care provider. Make sure you discuss any questions you have with your health care provider. Document Revised: 04/23/2022 Document Reviewed: 04/23/2022 [employer] Patient Education ??? 2023 [place]. UROLOGY OFFICE/CLINIC NOTE Observed: 07/2025 8:58 AM Status: F Source: [facility] Urology Office/Clinic Note Chief Complaint New patient urinary retention HPI Staff 69 yr old male here as new pt for TBH f/u . Pt resides @ [facility] [place] [facility] 01/18/25 d/t knee pain and difficulty walking. Admitted w/ pneumonia. Developed worsening ELIZABETH. Nino placed w/ return of 2L urine immediately. Transferred to [facility] They started him on Flomax. Dc'd 01/24/25 w/ nino in place. Baseline sx include nocturia (up to 8x a night), severe urgency, hesitancy, post-void dribbling. These sx have been present for many years. [facility] 01/20/25 - nl, no hydro. A1c 01/20/25: 6.2 BMP 01/24/25: BUN-28, Creatinine- 0.97, eGFR- >60.0 Review of Systems PHQ Score Initial Depression Screen Score: 0 SCORE No fever, chills, malaise, myalgia. Physical Exam Vitals & Measurements HR: 87(Peripheral) RR: 16 BP: 150/83 HT: 194 cm HT: 76 in WT: 297.624 lb WT: 135 kg BMI: 35.87 General: nontoxic, NAD Mouth: moist mucosa Lungs: normal respiratory effort Cardio: regular rate, good distal perfusion Abdomen: nondistended Neurologic: Grossly normal Skin: No rashes or suspicious lesions QUANG deferred as pt is unable to stand w/o assistance. Assessment/Plan 1. BPH with obstruction/lower urinary tract symptoms (N40.1: Benign prostatic hyperplasia with lower urinary tract symptoms) +Significant baseline sx. Discussed Cysto for additional evaluation of bladder and prostate health. Then can decide whether to attempt void trial+med management vs proceed w/ surgical intervention. Cannot do Uros as pt is a Rian Lift. Continue Flomax for now. The risks and benefits for cystoscopy have been discussed. The risks include bleeding, infection, and irritation of the bladder and urinary channel, among others. The patient, after being informed of procedural details and after questions have been answered, wishes to proceed. Full informed consent has been obtained. Will order Local anesthesia. Ordered: E&M of New Patient Moderate 45-59 Min 03773 2. Urine retention (R33.9: Retention of urine, unspecified) Nino will remain in place until pt returns for Cysto. ECF to change q4wks. Ordered: E&M of New Patient Moderate 45-59 Min 30330 3. Prostate cancer screening (Z12.5: Encounter for screening for malignant neoplasm of prostate) No PSAs on Clinisync. Attempted draw IO today but fail x2. Sent order to ECF. Ordered: E&M of New Patient Moderate 45-59 Min 15057 PSA Screen, Total Other obstructive and reflux uropathy (N13.8: Other obstructive and reflux uropathy) Follow-up With When Contact Information [facility] [place] [address] Business (1) Additional Instructions: our kindergarten aide will be contacting you for follow-up Patient Education Benign Prostatic Hyperplasia Problem List/Past Medical History Ongoing Acute kidney failure Acute respiratory failure Anxiety BPH with obstruction/lower urinary tract symptoms Chronic obstructive pulmonary disease Depression Hyperlipidemia Hypertension Hypothyroidism Osteoarthritis Other abnormalities of gait and mobility Prostate cancer screening Type 2 diabetes mellitus with polyneuropathy Urine retention Historical No qualifying data Procedure/Surgical History Back, Cholecystectomy, Vasectomy. Medications acetaminophen-oxycodone 325 mg-5 mg Tab, 1 tab(s), Oral, q6hr albuterol 90 mcg/inh inhalation powder, 90 mcg, Inhalation, q6hr amLODIPine 5 mg Tab, 5 mg= 1 tab(s), Oral, Daily busPIRone 30 mg oral tablet, 30 mg= 1 tab(s), Oral, BID clonazepam 1 mg Tab, 1 mg= 1 tab(s), Oral, TID Colace 100 mg Cap, 100 mg= 1 cap(s), Oral, BID, PRN cyclobenzaprine 10 mg Tab, 10 mg= 1 tab(s), Oral, TID, PRN Effexor XR 150 mg Cap-ER, 150 mg= 1 cap(s), Oral, Daily ferrous sulfate 325 mg oral enteric coated tablet, 325 mg= 1 tab(s), Oral, Daily fluticasone propionate, 50 mcg, Inhalation, BID gabapentin 600 mg Tab, 600 mg= 1 tab(s), Oral, TID glimepiride 2 mg Tab, 2 mg= 1 tab(s), Oral, Daily guaiFENesin 600 mg ER Tab, 600 mg= 1 tab(s), Oral, q12hr hydrOXYzine hydrochloride 50 mg oral tablet, 50 mg= 1 tab(s), Oral, TID levofloxacin 750 mg Tab, 750 mg= 1 tab(s), Oral, q24hr levothyroxine 125 mcg (0.125 mg) Tab, 125 mcg= 1 tab(s), Oral, Daily lisinopril 20 mg Tab, 20 mg= 1 tab(s), Oral, Daily Multiple Vitamins oral capsule, 1 cap(s), Oral, Daily nystatin 100,000 units/mL Oral Susp, 844397 unit(s)= 1 mL, Oral, q6hr polyethylene glycol 3350, 17 gm, Oral, Daily prazosin 1 mg Cap, 1 mg= 1 cap(s), Oral, Daily rosuvastatin 5 mg Tab, 5 mg= 1 tab(s), Oral, Daily Spiriva Respimat 10 ACT 2.5 mcg/inh inhalation aerosol, 2.5 mcg, Inhalation, Daily tamsulosin 0.4 mg Cap, 0.4 mg= 1 cap(s), Oral, Daily Wixela Inhub 250 mcg-50 mcg inhalation powder, 1 inh, Inhalation, BID Allergies amoxicillin (Rash) cefdinir (Rash) morphine (Rash) Social History Alcohol Past, 01/26/2025 Tobacco Former smoker, quit more than 30 days ago, quit 40 years ago Tobacco Use:. Never Smokeless Tobacco Use:. Cigarettes, Stopped age 29 Years., 01/26/2025 Family History Primary malignant neoplasm of female breast: Mother. Immunizations Vaccine Date Status Comments diphtheria/pertussis, acel/tetanus adult 12/19/2024 Recorded influenza virus vaccine, inactivated 09/08/2024 Recorded influenza virus vaccine, inactivated 07/23/2023 Recorded SARS-CoV-2 (COVID-19) [id number] 08/02/2022 Recorded influenza virus vaccine, inactivated 07/20/2022 Recorded SARS-CoV-2 (COVID-19) mRNA-1273 vaccine 08/12/2021 Recorded influenza virus vaccine, inactivated 07/28/2021 Recorded SARS-CoV-2 (COVID-19) mRNA-1273 vaccine 02/01/2021 Recorded 2025-01-26: TPV60 SARS-CoV-2 (COVID-19) mRNA-1273 vaccine 01/04/2021 Recorded 2025-01-26: TPV60 Result Comment: Electronical ly Signed By: JOHANA QUINTANA PA-C\.br\Date and Time Signed: 01/26/25 10:24 EDT GLUCOSE POCT GLUCOMETERS Collected: 01/24/2025 11:28 AM Status: F Source: [facility] TYPE CODE TESTS RESULT OUT OF RANGE REFERENCE UNITS LAB GLUPOC Glucose Poc Glucometers 157 mg/dL Result Comment: Random Gluco se Reference Range is dependent on time and content of last meal. Glucose of more than 200 mg/dL in a nonstressed, ambulatory subject supports the diagnosis of Diabetes Mellitus. PERFORMED BY: [facility] [address] [place] [address] PATHOLOGIST DIRECTOR [employer]LE [employer] R[employer] RAIN M.D. Performed By: #### GLULS ### # Point of Care testing , GLUCOSE POCT GLUCOMETERS Collected: 01/24/2025 7:14 A M Status: F Source: [facility] TYPE CODE TESTS RESULT OUT OF RANGE REFERENCE UNITS LAB GLUPOC Glucose Poc Glucometers 87 mg/dL Result Comment: Random Gluco se Reference Range is dependent on time and content of last meal. Glucose of more than 200 mg/dL in a nonstressed, ambulatory subject supports the diagnosis of Diabetes Mellitus. PERFORMED BY: [facility] [place] [address] PATHOLOGIST DIRECTOR [employer] RAIN M.D. Performed By: #### GLULS ### # Point of Care testing , COMPLETE BLOOD COUNT AUTO DIFF Collected: 01/24/2025 6:29 AM Status: F Source: F [facility] Order Comment: PER GEE [place] DRAW AT 0630. TYPE CODE TESTS RESULT OUT OF RANGE REFERENCE UNITS LAB WBC White Blood Count 7.4 Normal 4.1-10.5 10*3/uL LAB UNWBC Uncorrected WBC 7.4 Normal 4.1-10.5 10*3/uL LAB RBC Red Blood Count 3.75 Low 3.90-5.60 10*6/u L LAB HGB Hemoglobin 11.8 Low 13.0-17.0 g/dL LAB HCT Hematocrit 34.2 Low 38.8-50.0 % LAB MCV Mean Corpuscular Volume 91.2 Normal 83.5-101 fL LAB MCH Mean Corpuscular Hemoglobin 31.3 Normal 27.5-35.2 pg LAB MCHC Mean Corpuscular HGB Conc 34.4 Normal 32.5-35.6 g/dL LAB RDW Red Cell Distribution Width 13.4 Normal 12.0-14.8 % LAB PLT Platelet Count 171 Normal 150-450 10*3/uL LAB MPV Mean Platelet Volume 6.5 Low 6.6-10.1 fL LAB NE% Neutrophils % (Auto) 73.0 . % LAB LY% Lymphocytes % (Auto) 14.9 . % LAB MO% Monocytes % (Auto) 8.4 . % LAB EO% Eosinophils % (Auto) 3.5 . % LAB BA% Basophils % (Auto) 0.2 . % LAB NRBC% NRBC% 0.1 Normal 0-0.5 /100{WBC} LAB NE# Neutrophils # (Auto) 5.4 Normal 1.8-7.7 10*3/uL LAB LY# Lymphocytes # (Auto) 1.1 Normal 1.00-4.8 10*3/uL LAB MO# Monocytes # (Auto) 0.6 Normal 0.0-0.8 10*3/uL LAB EO# Eosinophils # (Auto) 0.3 Normal 0.0-0.45 10*3/uL LAB BA# Basophils # (Auto) 0.0 Normal 0.0-0.2 10*3/uL Result Comment: PERFORMED BY : [place] [address] PATHOLOGIST DIRECTOR [employer] RAIN M.D. Performed By: #### MG, CBC, BMP #### [address] BASIC METABOLIC PANEL Collected: 01/24/2025 6:29 AM Status: F Source: [facility] Order Comment: PER GEE [place] DRAW AT 0630. TYPE CODE TESTS RESULT OUT OF RANGE REFERENCE UNITS LAB GLU Glucose 90 Normal 70-100 mg/dL Result Comment: Random Gluco se Reference Range is dependent on time and content of last meal. Glucose of more than 200 mg/dL in a nonstressed, ambulatory subject supports the diagnosis of Diabetes Mellitus. ADA recommended reference range LAB BUN Blood Urea Nitrogen 28 High 7-25 mg/dL LAB CREATT Creatinine 0.97 Normal 0.70-1.30 mg/dL LAB GFReNR Estimated GFR >60.0 mL/Min LAB NA Sodium 136 Normal 136-145 mmol/L LAB K Potassium 4.2 Normal 3.5-5.1 mmol/L LAB CL Chloride 103 Normal 98-107 mmol/L LAB CO2 Carbon Dioxide 27.2 Normal 21.0-31.0 mmol/L LAB GAP Anion Gap 10.0 Normal 6.0-15.0 meq/L LAB CA Calcium 8.1 Low 8.6-10.3 mg/dL LAB CRCLPHA Creatinine Clr Calc Pharmacy 110.85 Performed By: #### MG, CBC, BMP #### [place] [id number] [facility] MAGNESIUM Collected: 6:29 AM Status: F Source: [facility] Order Comment: PER GEE [place] DRAW AT 0630. TYPE CODE TESTS RESULT OUT OF RANGE REFERENCE UNITS LAB MG Magnesium 1.1 Low 1.9-2.7 mg/dL Result Comment: PERFORMED BY : [place] [address] PATHOLOGIST DIRECTOR [employer] RAIN M.D. Performed By: #### MG, CBC, BMP #### [address] GLUCOSE POCT GLUCOMETERS Collected: 01/23/2025 8:49 P M Status: F Source: [facility] TYPE CODE TESTS RESULT OUT OF RANGE REFERENCE UNITS LAB GLUPOC Glucose Poc Glucometers 86 mg/dL Result Comment: Random Gluco se Reference Range is dependent on time and content of last meal. Glucose of more than 200 mg/dL in a nonstressed, ambulatory subject supports the diagnosis of Diabetes Mellitus. PERFORMED BY: [place] [address] PATHOLOGIST DIRECTOR [employer] R[employer] RAIN M.D. Performed By: #### GLULS ### # Point of Care testing , GLUCOSE POCT GLUCOMETERS Collected: 01/23/2025 4:20 P M Status: F Source: [facility] TYPE CODE TESTS RESULT OUT OF RANGE REFERENCE UNITS LAB GLUPOC Glucose Poc Glucometers 110 mg/dL Result Comment: Random Gluco se Reference Range is dependent on time and content of last meal. Glucose of more than 200 mg/dL in a nonstressed, ambulatory subject supports the diagnosis of Diabetes Mellitus. PERFORMED BY: [place] [address] PATHOLOGIST DIRECTOR [employer] RAIN M.D. Performed By: #### GLULS ### # Point of Care testing , GLUCOSE POCT GLUCOMETERS Collected: 01/23/2025 11:31 AM Status: F Source: [facility] TYPE CODE TESTS RESULT OUT OF RANGE REFERENCE UNITS LAB GLUPOC Glucose Poc Glucometers 147 mg/dL Result Comment: Random Gluco se Reference Range is dependent on time and content of last meal. Glucose of more than 200 mg/dL in a nonstressed, ambulatory subject supports the diagnosis of Diabetes Mellitus. PERFORMED BY: [facility] [address] [place] [address] PATHOLOGIST DIRECTOR [employer] RAIN M.D. Performed By: #### GLULS ### # Point of Care testing , GLUCOSE POCT GLUCOMETERS Collected: 01/23/2025 7:31 A M Status: F Source: [facility] TYPE CODE TESTS RESULT OUT OF RANGE REFERENCE UNITS LAB GLUPOC Glucose Poc Glucometers 93 mg/dL Result Comment: Random Gluco se Reference Range is dependent on time and content of last meal. Glucose of more than 200 mg/dL in a nonstressed, ambulatory subject supports the diagnosis of Diabetes Mellitus. PERFORMED BY: [facility] [address] [place] [address] PATHOLOGIST DIRECTOR [employer] RAIN M.D. Performed By: #### GLULS ### # Point of Care testing , COMPLETE BLOOD COUNT AUTO DIFF Collected: 01/23/2025 4:49 AM Status: F Source: F [facility] TYPE CODE TESTS RESULT OUT OF RANGE REFERENCE UNITS LAB WBC White Blood Count 8.8 Normal 4.1-10.5 10*3/uL LAB UNWBC Uncorrected WBC 8.8 Normal 4.1-10.5 10*3/uL LAB RBC Red Blood Count 3.89 Low 3.90-5.60 10*6/u L LAB HGB Hemoglobin 12.2 Low 13.0-17.0 g/dL LAB HCT Hematocrit 35.5 Low 38.8-50.0 % LAB MCV Mean Corpuscular Volume 91.4 Normal 83.5-101 fL LAB MCH Mean Corpuscular Hemoglobin 31.4 Normal 27.5-35.2 pg LAB MCHC Mean Corpuscular HGB Conc 34.3 Normal 32.5-35.6 g/dL LAB RDW Red Cell Distribution Width 13.6 Normal 12.0-14.8 % LAB PLT Platelet Count 189 Normal 150-450 10*3/uL LAB MPV Mean Platelet Volume 6.5 Low 6.6-10.1 fL LAB NE% Neutrophils % (Auto) 74.8 . % LAB LY% Lymphocytes % (Auto) 14.7 . % LAB MO% Monocytes % (Auto) 9.6 . % LAB EO% Eosinophils % (Auto) 0.7 . % LAB BA% Basophils % (Auto) 0.2 . % LAB NRBC% NRBC% 0.1 Normal 0-0.5 /100{WBC} LAB NE# Neutrophils # (Auto) 6.6 Normal 1.8-7.7 10*3/uL LAB LY# Lymphocytes # (Auto) 1.3 Normal 1.00-4.8 10*3/uL LAB MO# Monocytes # (Auto) 0.8 Normal 0.0-0.8 10*3/uL LAB EO# Eosinophils # (Auto) 0.1 Normal 0.0-0.45 10*3/uL LAB BA# Basophils # (Auto) 0.0 Normal 0.0-0.2 10*3/uL Result Comment: PERFORMED BY : [facility] [address] [place] [address] PATHOLOGIST DIRECTOR [employer] RAIN M.D. Performed By: #### BMP, CBC #### [facility] [address] BASIC METABOLIC PANEL Collected: 2024 4:49 AM Status: F Source: [facility] TYPE CODE TESTS RESULT OUT OF RANGE REFERENCE UNITS LAB GLU Glucose 109 Increased 70-100 mg/dL Result Comment: Random Gluco se Reference Range is dependent on time and content of last meal. Glucose of more than 200 mg/dL in a nonstressed, ambulatory subject supports the diagnosis of Diabetes Mellitus. ADA recommended reference range LAB BUN Blood Urea Nitrogen 45 High 7-25 mg/dL LAB CREATT Creatinine 1.31 Increased 0.70-1.30 mg/dL LAB GFReNR Estimated GFR 59.291 mL/Min LAB NA Sodium 134 Low 136-145 mmol/L LAB K Potassium 4.3 Normal 3.5-5.1 mmol/L LAB CL Chloride 102 Normal 98-107 mmol/L LAB CO2 Carbon Dioxide 24.6 Normal 21.0-31.0 mmol/L LAB GAP Anion Gap 11.7 Normal 6.0-15.0 meq/L LAB CA Calcium 8.9 Normal 8.6-10.3 mg/dL LAB CRCLPHA Creatinine Clr Calc Pharmacy 84.06 Result Comment: PERFORMED BY : [place] [id number] PATHOLOGIST DIRECTOR [employer] R[employer] RAIN M.D. Performed By: #### BMP, CBC #### [place] [id number] [facility] GLUCOSE POCT GLUCOMETERS Collected: 01/22/2025 8:54 P M Status: F Source: [facility] TYPE CODE TESTS RESULT OUT OF RANGE REFERENCE UNITS LAB GLUPOC Glucose Poc Glucometers 223 mg/dL Result Comment: Random Gluco se Reference Range is dependent on time and content of last meal. Glucose of more than 200 mg/dL in a nonstressed, ambulatory subject supports the diagnosis of Diabetes Mellitus. PERFORMED BY: [address] [address] PATHOLOGIST DIRECTOR [employer] RAIN M.D. Performed By: #### GLULS ### # Point of Care testing , GLUCOSE POCT GLUCOMETERS Collected: 01/22/2025 4:30 P M Status: F Source: [facility] TYPE CODE TESTS RESULT OUT OF RANGE REFERENCE UNITS LAB GLUPOC Glucose Poc Glucometers 203 mg/dL Result Comment: Random Gluco se Reference Range is dependent on time and content of last meal. Glucose of more than 200 mg/dL in a nonstressed, ambulatory subject supports the diagnosis of Diabetes Mellitus. PERFORMED BY: [address] [address] PATHOLOGIST DIRECTOR [employer] RAIN M.D. Performed By: #### GLULS ### # Point of Care testing , GLUCOSE POCT GLUCOMETERS Collected: 01/22/2025 11:29 AM Status: F Source: [facility] TYPE CODE TESTS RESULT OUT OF RANGE REFERENCE UNITS LAB GLUPOC Glucose Poc Glucometers 251 mg/dL Result Comment: Random Gluco se Reference Range is dependent on time and content of last meal. Glucose of more than 200 mg/dL in a nonstressed, ambulatory subject supports the diagnosis of Diabetes Mellitus. PERFORMED BY: [address] [address] PATHOLOGIST DIRECTOR [employer] RAIN M.D. Performed By: #### GLULS ### # Point of Care testing , GLUCOSE POCT GLUCOMETERS Collected: 01/22/2025 7:28 A M Status: F Source: [facility] TYPE CODE TESTS RESULT OUT OF RANGE REFERENCE UNITS LAB GLUPOC Glucose Poc Glucometers 220 mg/dL Result Comment: Random Gluco se Reference Range is dependent on time and content of last meal. Glucose of more than 200 mg/dL in a nonstressed, ambulatory subject supports the diagnosis of Diabetes Mellitus. PERFORMED BY: [place] [address] PATHOLOGIST DIRECTOR [employer] RAY RAIN M.D. Performed By: #### GLULS ### # Point of Care testing , B-TYPE NATRIURETIC PEPTIDE Collected: 01/22/2025 4:57 AM Status: F Source: [facility] TYPE CODE TESTS RESULT OUT OF RANGE REFERENCE UNITS LAB BNP B-Type Natriuretic Peptide 95.0 Normal 5-100 pg/mL Result Comment: PERFORMED BY : [place] [address] PATHOLOGIST DIRECTOR [employer] R[employer] RAIN M.D. Performed By: #### BNP #### [address] COMPLETE BLOOD COUNT AUTO DIFF Collected: 01/22/2025 4:57 AM Status: F Source: F [facility] TYPE CODE TESTS RESULT OUT OF RANGE REFERENCE UNITS LAB WBC White Blood Count 10.9 High 4.1-10.5 10*3/uL LAB UNWBC Uncorrected WBC 10.9 High 4.1-10.5 10*3/uL LAB RBC Red Blood Count 3.92 Normal 3.90-5.60 10*6/u L LAB HGB Hemoglobin 12.4 Low 13.0-17.0 g/dL LAB HCT Hematocrit 35.9 Low 38.8-50.0 % LAB MCV Mean Corpuscular Volume 91.6 Normal 83.5-101 fL LAB MCH Mean Corpuscular Hemoglobin 31.6 Normal 27.5-35.2 pg LAB MCHC Mean Corpuscular HGB Conc 34.5 Normal 32.5-35.6 g/dL LAB RDW Red Cell Distribution Width 13.5 Normal 12.0-14.8 % LAB PLT Platelet Count 198 Normal 150-450 10*3/uL LAB MPV Mean Platelet Volume 6.6 Normal 6.6-10.1 fL LAB NE% Neutrophils % (Auto) 89.2 . % LAB LY% Lymphocytes % (Auto) 5.3 . % LAB MO% Monocytes % (Auto) 5.4 . % LAB EO% Eosinophils % (Auto) 0.0 . % LAB BA% Basophils % (Auto) 0.1 . % LAB NRBC% NRBC% 0.0 Normal 0-0.5 /100{WBC} LAB NE# Neutrophils # (Auto) 9.7 High 1.8-7.7 10*3/uL LAB LY# Lymphocytes # (Auto) 0.6 Low 1.00-4.8 10*3/uL LAB MO# Monocytes # (Auto) 0.6 Normal 0.0-0.8 10*3/uL LAB EO# Eosinophils # (Auto) 0.0 Normal 0.0-0.45 10*3/uL LAB BA# Basophils # (Auto) 0.0 Normal 0.0-0.2 10*3/uL Result Comment: PERFORMED BY : [place] [address] PATHOLOGIST DIRECTOR [employer] RAIN M.D. Performed By: #### CBC, BMP #### [address] BASIC METABOLIC PANEL Collected: 2024 4:37 AM Status: F Source: [facility] TYPE CODE TESTS RESULT OUT OF RANGE REFERENCE UNITS LAB GLU Glucose 274 Increased 70-100 mg/dL Result Comment: Random Gluco se Reference Range is dependent on time and content of last meal. Glucose of more than 200 mg/dL in a nonstressed, ambulatory subject supports the diagnosis of Diabetes Mellitus. ADA recommended reference range LAB BUN Blood Urea Nitrogen 65 High 7-25 mg/dL LAB CREATT Creatinine 2.24 Increased 0.70-1.30 mg/dL LAB GFReNR Estimated GFR 31.147 mL/Min LAB NA Sodium 130 Low 136-145 mmol/L LAB K Potassium 4.8 Normal 3.5-5.1 mmol/L LAB CL Chloride 98 Normal 98-107 mmol/L LAB CO2 Carbon Dioxide 22.3 Normal 21.0-31.0 mmol/L LAB GAP Anion Gap 14.5 Normal 6.0-15.0 meq/L LAB CA Calcium 9.3 Normal 8.6-10.3 mg/dL LAB CRCLPHA Creatinine Clr Calc Pharmacy 48.88 Result Comment: PERFORMED BY : [place] [address] PATHOLOGIST DIRECTOR [employer] RAIN M.D. Performed By: #### CBC, BMP #### [address] GLUCOSE POCT GLUCOMETERS Collected: 01/21/2025 8:37 P M Status: F Source: [facility] TYPE CODE TESTS RESULT OUT OF RANGE REFERENCE UNITS LAB GLUPOC Glucose Poc Glucometers 383 mg/dL Result Comment: Random Gluco se Reference Range is dependent on time and content of last meal. Glucose of more than 200 mg/dL in a nonstressed, ambulatory subject supports the diagnosis of Diabetes Mellitus. PERFORMED BY: [address] [address] PATHOLOGIST DIRECTOR [employer] RAIN M.D. Performed By: #### GLULS ### # Point of Care testing , GLUCOSE POCT GLUCOMETERS Collected: 01/21/2025 4:14 P M Status: F Source: [facility] TYPE CODE TESTS RESULT OUT OF RANGE REFERENCE UNITS LAB GLUPOC Glucose Poc Glucometers 441 High Off Scale mg/dL Result Comment: Random Gluco se Reference Range is dependent on time and content of last meal. Glucose of more than 200 mg/dL in a nonstressed, ambulatory subject supports the diagnosis of Diabetes Mellitus. LAB COMM1 Commemt1 Result Comment: Glu2: WILL N OTIFY DR/FLIGHT MANAGER COMM2 Commemt2 Cleaned Meter Result Comment: PERFORMED BY : [address] [address] PATHOLOGIST DIRECTOR [employer] RAIN M.D. Performed By: #### GLULS ### # Point of Care testing , SODIUM, URINE Collected: 4:10 PM Status: F Source: [facility] Order Comment: Comment Ricarda jones Addon previous Sample , otherwise use a new TYPE CODE TESTS RESULT OUT OF RANGE REFERENCE UNITS LAB URNA Sodium, Urine 58.0 mmol/L Result Comment: No reference range established PERFORMED BY: [place] [address] PATHOLOGIST DIRECTOR [employer] RAIN M.D. Performed By: #### UROSMO, U RNA #### [facility] [address] [place] [address] OSMOLALITY, URINE Collected: 4:10 PM Status: F Source: [facility] Order Comment: Comment ricarda r add on , otherwise ask for new sample TYPE CODE TESTS RESULT OUT OF RANGE REFERENCE UNITS LAB UROSMO Osmolality, Urine 383 Normal 250-900 mosm Result Comment: PERFORMED BY : [place] [address] PATHOLOGIST DIRECTOR [employer] RAIN M.D. Performed By: #### UROSMO, U RNA #### [place] [id number] [facility] LACTIC ACID REFLEX Collected: 12:31 PM Status: F Source: [facility] TYPE CODE TESTS RESULT OUT OF RANGE REFERENCE UNITS LAB LACTIC RFX Lactic Acid Reflex 3.0 High Off Scale 0.5-1.9 mmol/L Result Comment: Critical Res ult : Called to and read back by: MANA OCONNOR RN/4P at: 01/21/2025 12:54:36 by:[id number] Lactic Acid reference range has been updated to 0.5 ? 1.9 mmol/L and the critical range of 2.0 or greater. PERFORMED BY: [place] [address] PATHOLOGIST DIRECTOR [employer] RAIN M.D. Performed By: #### LACTIC RF X #### [facility] [address] [place], [place] [id number] [facility] GLUCOSE POCT GLUCOMETERS Collected: 01/21/2025 11:42 AM Status: F Source: [facility] TYPE CODE TESTS RESULT OUT OF RANGE REFERENCE UNITS LAB GLUPOC Glucose Poc Glucometers 318 mg/dL Result Comment: Random Gluco se Reference Range is dependent on time and content of last meal. Glucose of more than 200 mg/dL in a nonstressed, ambulatory subject supports the diagnosis of Diabetes Mellitus. LAB COMM1 Commemt1 Glu2: Cleaned Meter Result Comment: PERFORMED BY : [place] [address] PATHOLOGIST DIRECTOR [employer]IN M.D. Performed By: #### GLULS ### # Point of Care testing , GLUCOSE POCT GLUCOMETERS Collected: 01/21/2025 11:35 AM Status: F Source: [facility] TYPE CODE TESTS RESULT OUT OF RANGE REFERENCE UNITS LAB GLUPOC Glucose Poc Glucometers 417 High Off Scale mg/dL Result Comment: Random Gluco se Reference Range is dependent on time and content of last meal. Glucose of more than 200 mg/dL in a nonstressed, ambulatory subject supports the diagnosis of Diabetes Mellitus. LAB COMM1 Commemt1 Result Comment: Glu2: Will R epeat Test LAB COMM2 Commemt2 WILL NOTIFY DR/RN Result Comment: PERFORMED BY : [place] [id number] PATHOLOGIST DIRECTOR [employer] RAIN M.D. Performed By: #### GLULS ### # Point of Care testing , ECH ECHO TRANSTHORACIC Observed: 025 10:51 AM Status: COMPLETED Source: [facility] Main [place] [id number] Echocardiogram Signed Patient: Joie Lu MR#: [id number] : 1955 Acct:[id number] Age/Sex: 69 / M ADM Date: 01/20/25 Loc: Room: [address] [place] [address] Type: ADM IN Attending Dr: Meche Malcolm MD Ordering Provider: Supa Perez DO Date of Service: 01/21/2503/12/500 ECH/ECH echo transthoracic: leg edema and dyspnea Copies to: DO Eufemia Paige MD Height: 76 in Weight: 316 lb Performed By: KRISTINA Martinez BSA: 2.7 m2 BP: 128/71 mmHg HR: 102 Reason For Study: leg edema and dyspnea History: HTN, Asthma, COPD, DM, Former Smoker Interpretation Summary The study was technically suboptimal in quality due to poor acoustic windows. Ejection Fraction = 55-60%. The left ventricular wall motion is normal. There is no comparison study available. Procedure/Quality: A two-dimensional transthoracic echocardiogram with color flow, Doppler and injection of contrast agent Definity was performed. The study was technically suboptimal in quality due to poor acoustic windows . Left Ventricle: The left ventricular size is normal. Ejection Fraction = 55- 60%. Inadequate for diastolic assessment. The left ventricular wall motion is normal. Left Atrium: The left atrium is not well visualized. Right Atrium: The right atrium is not well visualized. Right Ventricle: The right ventricle is not well visualized. Aortic Valve: The aortic valve is not well visualized. Mitral Valve: The mitral valve is not well visualized. Tricuspid Valve: The tricuspid valve is not well visualized. Pulmonic Valve: The pulmonic valve is not well visualized. Arteries: The aortic root is normal size. Pericardium/Pleura: No pericardial effusion seen. IVC/Hepatic Veins: The inferior vena cava is normal in size, with a normal collapsibility index. Measurements with Normals IVSd: 1.1 cm (0.7-1.1 cm)LVIDd: 3.7 cm(3.7-5.4 cm) LVPWd: 0.98 cm(0.7-1.1 cm)LVIDs: 2.8 cm(2.3-3.6 cm) Doppler with Normals LV V1 max: 129.8 cm/sec (0.7-1.7m/s)MV E max meredith: 107.0 cm/sec(0.8-1.3m/s) MV A max meredith: 131.0 cm/sec(0.0-0.0m/s) MV E/A: 0.82 (<1.5) MMode/2D Measurements Calculations TAPSE: 2.7 cm FS: 23.6 % LVLd ap4: 6.7 cm SV(MOD-sp4): RV S Meredith: EDV(Teich): 57.2 ml EDV(MOD-sp4): 40.3 ml 20.0 cm/sec ESV(Teich): 29.8 ml 56.2 ml EF(Teich): 48.0 % LVLs ap4: 5.3 cm ESV(MOD-sp4): 15.9 ml EF(MOD-sp4): 71.7 % __ LAV(MOD-sp4): LA A4 area: 6.6 cm2 9.5 ml LA length (vol): 3.7 cm Doppler Measurements Calculations MV dec time: MV V2 max: E/E' lat: 8.9 MV P1/2t max meredith: 0.20 sec 137.3 cm/sec E/E' med: 9.6 116.3 cm/sec MV max P.5 mmHg MV P1/2t: 58.2 msec MV V2 mean: 101.2 cm/sec MVA(P1/2t): 3.8 cm2 MV mean PG: MV dec slope: 4.5 mmHg 585.4 cm/sec2 MV V2 VTI: 31.5 cm __ Ao V2 max: LV V1 max PG: RAP systole: 163.9 cm/sec 6.7 mmHg 5.0 mmHg Ao max PG: LV V1 mean P.7 mmHg 3.9 mmHg Ao mean PG: LV V1 mean: 6.2 mmHg 90.8 cm/sec Ao V2 mean: LV V1 VTI: 24.9 cm 116.0 cm/sec Ao V2 VTI: 31.2 cm Transcribed By: SCV Performed At: 01/21/25 1051 Signed By: Eufemia Massey MD 01/21/25 1701 US RENAL BI Observed: 01/21/2025 9:14 AM Status: COMPLETED Source: [facility] Main [address] [address] Ultrasound Report Signed Patient: Joie Lu MR#: [id number] : 1955 Acct:[id number] Age/Sex: 69 / M ADM Date: 01/20/25 Loc: Room: [address] [place] [address] Type: ADM IN Attending Dr: Meche Malcolm MD Ordering Provider: Supa Perez DO Date of Service: 01/21/25 US/US renal BI: Acute Kidney Injury Copies to: DO Meche Paige MD BILATERAL RENAL ULTRASOUND CLINICAL HISTORY: Acute kidney injury COMPARISON: 01/20/2025 Estimation of renal size is approximately 11.64 cm on the right and 11.79 cm on the left. No contour deforming mass, shadowing stone or hydronephrosis. Anechoic exophytic cyst 1.7 x 1.8 x 1.9 cm in size. The urinary bladder is decompressed by Nino catheter. US/US renal BI IMPRESSION: NO OBSTRUCTIVE UROPATHY. Impression dictated by: Tony Buckley M.D.01/21/2025 9:19 AM Dictation Location: [place] [address] Tech: Luh Rivero Transcribed By: [facility] 01/21/25918 Dictated By: Tony Buckley MD 01/21/25913 Signed By: <Electronically signed by Tony Buckley MD in OV> 01/21/25918 LACTIC ACID Collected: 9:07 AM Status: F Source: [facility] TYPE CODE TESTS RESULT OUT OF RANGE REFERENCE UNITS LAB LACTIC Lactic Acid 4.8 High Off Scale 0.5-1.9 mmol/L Result Comment: Critical Res ult : Called to and read back by: MANA OCONNOR at: 01/21/2025 09:36:55 by:[email or web address] Lactic Acid reference range has been updated to 0.5 ? 1.9 mmol/L and the critical range of 2.0 or greater. PERFORMED BY: [address] [address] PATHOLOGIST DIRECTOR [employer] RAIN M.D. Performed By: #### BHOB, LAC TIC #### [facility] [address] [place], [place] [phone] [facility] BETA HYDROXYBUTERATE Collected: 01/21/2025 9:07 AM S tatus: F Source: [facility] TYPE CODE TESTS RESULT OUT OF RANGE REFERENCE UNITS LAB BHOB Beta Hydroxybuterate 0.13 Normal 0.02-0.27 mmol/L Result Comment: PERFORMED BY : [place] [address] PATHOLOGIST DIRECTOR [employer] RAIN M.D. Performed By: #### BHOB, LAC TIC #### [place] [id number] [facility] A1C WITH ESTIMATED AVERAGE GLU Collected: 01/21/2025 9:07 AM Status: F Source: [facility] Order Comment: Comment Add o n last lab TYPE CODE TESTS RESULT OUT OF RANGE REFERENCE UNITS LAB .A1C Hemoglobin A1C 6.2 High 4.3-5.6 % Result Comment: Increased ri sk for diabetes: 5.7 - 6.4 diabetes: >6.4 glycemic control for adults with diabetes: <7.0 LAB eAG Estimated Average Glucose 131 mg/dL Result Comment: PERFORMED BY : [place] [address] PATHOLOGIST DIRECTOR [employer] RAIN M.D. Performed By: #### A1C WTH e A #### [place] [id number] [facility] XR CHEST 2V* Observed: 01/21/2025 8:30 AM Status: COMPLETED Source: [facility] [place] [address] XRay Report Signed Patient: Joie Lu MR#: [id number] : 1955 Acct:[id number] Age/Sex: 69 / M ADM Date: 01/20/25 Loc: Room: [address] [place] [address] Type: ADM IN Attending Dr: Meche Malcolm MD Copies to: DO Meche Paige MD Ordering Provider: Supa Perez DO Date of Service: 01/21/25 XR/XR chest 2V*: cough, dyspnea, hypoxia PA AND LATERAL CHEST: CLINICAL HISTORY: Cough, shortness breath, hypoxia COMPARISON: 01/19/2025 FINDINGS: Upper limits normal cardiac silhouette. There are bibasilar airspace opacities most confluent within left lung base worrisome for possible pneumonia. No effusion or pneumothorax. XR/XR chest 2V* IMPRESSION: Bibasilar airspace opacities worrisome for pneumonia. Follow-up following medical treatment course is recommended to resolution. Impression dictated by: Tony Buckley M.D.01/21/2025 8:35 AM Dictation Location: [place] [address] Transcribed By: [facility] [place] 01/21/25 0835 Dictated By: Tony Buckley MD 01/21/25 0830 Signed By: <Electronically signed by Tony Buckley MD in OV> 01/21/25 0835 GLUCOSE POCT GLUCOMETERS Collected: 01/21/2025 8:06 A M Status: F Source: [facility] TYPE CODE TESTS RESULT OUT OF RANGE REFERENCE UNITS LAB GLUPOC Glucose Poc Glucometers 316 mg/dL Result Comment: Random Gluco se Reference Range is dependent on time and content of last meal. Glucose of more than 200 mg/dL in a nonstressed, ambulatory subject supports the diagnosis of Diabetes Mellitus. PERFORMED BY: [facility] [address] [place] [address] PATHOLOGIST DIRECTOR [employer] RAIN M.D. Performed By: #### GLULS ### # Point of Care testing , COMPLETE BLOOD COUNT AUTO DIFF Collected: 01/21/2025 5:53 AM Status: F Source: F [facility] TYPE CODE TESTS RESULT OUT OF RANGE REFERENCE UNITS LAB WBC White Blood Count 14.0 High 4.1-10.5 10*3/uL LAB UNWBC Uncorrected WBC 14.0 High 4.1-10.5 10*3/uL LAB RBC Red Blood Count 3.72 Low 3.90-5.60 10*6/u L LAB HGB Hemoglobin 11.8 Low 13.0-17.0 g/dL LAB HCT Hematocrit 34.8 Low 38.8-50.0 % LAB MCV Mean Corpuscular Volume 93.4 Normal 83.5-101 fL LAB MCH Mean Corpuscular Hemoglobin 31.6 Normal 27.5-35.2 pg LAB MCHC Mean Corpuscular HGB Conc 33.8 Normal 32.5-35.6 g/dL LAB RDW Red Cell Distribution Width 13.7 Normal 12.0-14.8 % LAB PLT Platelet Count 194 Normal 150-450 10*3/uL LAB MPV Mean Platelet Volume 7.3 Normal 6.6-10.1 fL LAB NE% Neutrophils % (Auto) 94.4 . % LAB LY% Lymphocytes % (Auto) 3.3 . % LAB MO% Monocytes % (Auto) 2.2 . % LAB EO% Eosinophils % (Auto) 0.0 . % LAB BA% Basophils % (Auto) 0.1 . % LAB NRBC% NRBC% 0.0 Normal 0-0.5 /100{WBC} LAB NE# Neutrophils # (Auto) 13.2 High 1.8-7.7 10*3/uL LAB LY# Lymphocytes # (Auto) 0.5 Low 1.00-4.8 10*3/uL LAB MO# Monocytes # (Auto) 0.3 Normal 0.0-0.8 10*3/uL LAB EO# Eosinophils # (Auto) 0.0 Normal 0.0-0.45 10*3/uL LAB BA# Basophils # (Auto) 0.0 Normal 0.0-0.2 10*3/uL Result Comment: PERFORMED BY : [facility] [address] [place] [address] PATHOLOGIST DIRECTOR [employer] RAIN M.D. Performed By: #### TSH3CARTER C, CBC, BMP #### [facility] [address] BASIC METABOLIC PANEL Collected: 2024 5:53 AM Status: F Source: [facility] TYPE CODE TESTS RESULT OUT OF RANGE REFERENCE UNITS LAB GLU Glucose 402 High 70-100 mg/dL Result Comment: Random Gluco se Reference Range is dependent on time and content of last meal. Glucose of more than 200 mg/dL in a nonstressed, ambulatory subject supports the diagnosis of Diabetes Mellitus. ADA recommended reference range LAB BUN Blood Urea Nitrogen 67 High 7-25 mg/dL LAB CREATT Creatinine 3.58 Increased 0.70-1.30 mg/dL LAB GFReNR Estimated GFR 17.745 mL/Min LAB NA Sodium 125 Low 136-145 mmol/L LAB K Potassium 5.2 High 3.5-5.1 mmol/L LAB CL Chloride 96 Low 98-107 mmol/L LAB CO2 Carbon Dioxide 16.0 Low 21.0-31.0 mmol/L LAB GAP Anion Gap 18.2 High 6.0-15.0 meq/L LAB CA Calcium 8.5 Low 8.6-10.3 mg/dL LAB CRCLPHA Creatinine Clr Calc Pharmacy 30.58 Performed By: #### TSH3, URI C, CBC, BMP #### [address] URIC ACID Collected: 5:53 AM Status: F Source: [facility] TYPE CODE TESTS RESULT OUT OF RANGE REFERENCE UNITS LAB URIC Uric Acid 9.5 High 4.4-7.6 mg/dL Performed By: #### TSH3, URI C, CBC, BMP #### [place] [id number] [facility] THYROID STIMULATING HORMONE Collected: 01/21/2025 5:5 3 AM Status: F Source: [facility] TYPE CODE TESTS RESULT OUT OF RANGE REFERENCE UNITS LAB TSH3 Thyroid Stimulating Hormone 0.83 Normal 0.45-5.33 u[iU]/mL Result Comment: PERFORMED BY : [place] [address] PATHOLOGIST DIRECTOR [employer]IN M.D. Performed By: #### TSH3, URI C, CBC, BMP #### [place] [address] [place] DIPSTICK AND MICROSCOPIC Collected: 02/2025 1:51 AM Status: F Source: [facility] Order Comment: Name Collecti on Type:: Nino Catheter TYPE CODE TESTS RESULT OUT OF RANGE REFERENCE UNITS LAB UCOL Color,Urine Colorless Yellow LAB UAPP Appearance,Uri ne Cloudy Abnormal Alert Clear LAB USG Specificy Navarre,Urine 1.009 Normal 1.001-1.030 LAB UPH pH,Urine 5.0 Normal 5.0-9.0 LAB ULE Leukocyte Esterase,Urine 1+ High Negative LAB UNIT Nitrite,Urine Negative Negative LAB UPRO Protein,Urine 20 High Negative mg/dL LAB UGL Glucose,Urine (UA) 500 High Normal mg/dL LAB UKET Ketones,Urine Negative Negative LAB UURO Urobilinogen,U rine Normal Normal LAB UBIL Bilirubin,Urin e Negative Negative LAB UBLD Occult Blood,Urine 2+ High Negative LAB URBC RBC,Urine 20-49 High 0-4 [HPF] LAB UWBC WBC,Urine 20-49 High 0-4 [HPF] LAB UCLUMPWBC WBC CLUMP, Urine Many High None Seen LAB USQEPI Squamous Epithelial Cell,Urine 3-4 High 0-2 [HPF] LAB UREN Renal Epithelial Cells,Urine 1-2 High 0-1 [HPF] LAB UCAOX Calcium Oxalate Crystals,Urine Rare LAB UAMORPH CRYST Amorphous Crystal,Urine 3+ LAB UBACT Bacteria,Urine 3+ High None Seen LAB UHYALC Hyaline Casts,Urine 20-49 High 0-8 [LPF] LAB UGRANCAST Granular Casts, Urine 20-49 High None Seen [LPF] LAB UWBCC White Blood Cell Casts,Urine 1-2 High None Seen [LPF] LAB UCCAST Cellular Casts,Urine 3-4 High None Seen [LPF] LAB MUCUS Mucus,Urine 1+ Abnormal Alert Performed By: #### UEOS, CUU , ADDONUAPLUS #### [address] EOSINOPHIL,URINE Collected: 5 1:51 AM Status: F Source: [facility] Order Comment: Name Collecti on Type:: Nino Catheter TYPE CODE TESTS RESULT OUT OF RANGE REFERENCE UNITS LAB UEOS Eosinophil, Urine 3 High 0-1 % Result Comment: PERFORMED BY : [place] [address] PATHOLOGIST DIRECTOR [employer] RAIN M.D. Performed By: #### MATTHEW VALLES , ADDONUAPLUS #### [facility] [address] [place] [id number] [facility] URINE CULTURE Observed: 01/21/2025 1:51 AM Status: F Source: [facility] No Growth 2 Days PERFORMED BY: [place] [address] PATHOLOGIST DIRECTOR [employer] RAIN M.D. Performed By: #### MATTHEW VALLES , ERICONUAPLUS #### [facility] [address] [place] [id number] [facility] RESPIRATORY (UPPER) PANEL, PCR Observed: 01/21/2025 1:51 AM Status: F Source: [facility] Adenovirus Not detected Bordetella parapertussis Not detected Chlamydia pneumoniae Not detected Coronavirus 229E Not detected Coronavirus HKU1 Not detected Coronavirus NL63 Not detected Coronavirus OC43 Not detected Influenza A Not detected Influenza B Not detected Human Metapneumovirus Not detected Mycoplasma pneumoniae Not detected Parainfluenza Virus 1 Not detected Parainfluenza Virus 2 Not detected Parainfluenza Virus 3 Not detected Parainfluenza Virus 4 Not detected Bordetella pertussis-ptxP Not detected Human Rhino/Enterovirus Not detected Resp. Syncytial Virus Not detected COVID-19 Detected/Not Detected Not detected Blank Space FLUA TEST INCLUDES Influenza A tests for the following clinically FLUA TEST INCLUDES significant subtypes: FLUA TEST INCLUDES - Influenza A FLUA TEST INCLUDES - Influenza A H1 FLUA TEST INCLUDES - Influenza A H1 2009 FLUA TEST INCLUDES - Influenza A H3 Blank Space PERFORMED BY: [place] [address] PATHOLOGIST DIRECTOR [employer] RAIN M.D. Performed By: #### RESP PANE L UPP., BIOFIRECOVNOTDE #### [address] BIOFIRE NOT DETECTED Collected: 01/21/2025 1:51 AM S tatus: F Source: [facility] TYPE CODE TESTS RESULT OUT OF RANGE REFERENCE UNITS LAB BIOFIRECOVNOTDE BioFire Not Detected Not Detected Not Detecte Result Comment: This is a du plicate RP2.1 COVID (PCR) result to be used for statistical tracking purpose only. PERFORMED BY: [place] [address] PATHOLOGIST DIRECTOR [employer] RAIN M.D. Performed By: #### RESP PANE L UPP., BIOFIRECOVNOTDE #### [address] A1C WITH ESTIMATED AVERAGE GLU Collected: 01/20/2025 10:13 PM Status: F Source: [facility] TYPE CODE TESTS RESULT OUT OF RANGE REFERENCE UNITS LAB .A1C Hemoglobin A1C 6.2 High 4.3-5.6 % Result Comment: Increased ri sk for diabetes: 5.7 - 6.4 diabetes: >6.4 glycemic control for adults with diabetes: <7.0 LAB eAG Estimated Average Glucose 131 mg/dL Result Comment: PERFORMED BY : [place] [address] PATHOLOGIST DIRECTOR [employer] R[employer] RAIN M.D. Performed By: #### A1C WTH e A #### [address] COMPLETE BLOOD COUNT AUTO DIFF Collected: 01/20/2025 10:13 PM Status: F Source: [facility] TYPE CODE TESTS RESULT OUT OF RANGE REFERENCE UNITS LAB WBC White Blood Count 11.4 High 4.1-10.5 10*3/uL LAB UNWBC Uncorrected WBC 11.4 High 4.1-10.5 10*3/uL LAB RBC Red Blood Count 3.56 Low 3.90-5.60 10*6/u L LAB HGB Hemoglobin 11.1 Low 13.0-17.0 g/dL LAB HCT Hematocrit 33.1 Low 38.8-50.0 % LAB MCV Mean Corpuscular Volume 92.8 Normal 83.5-101 fL LAB MCH Mean Corpuscular Hemoglobin 31.1 Normal 27.5-35.2 pg LAB MCHC Mean Corpuscular HGB Conc 33.5 Normal 32.5-35.6 g/dL LAB RDW Red Cell Distribution Width 13.8 Normal 12.0-14.8 % LAB PLT Platelet Count 189 Normal 150-450 10*3/uL LAB MPV Mean Platelet Volume 7.5 Normal 6.6-10.1 fL LAB NE% Neutrophils % (Auto) 93.5 . % LAB LY% Lymphocytes % (Auto) 4.4 . % LAB MO% Monocytes % (Auto) 2.0 . % LAB EO% Eosinophils % (Auto) 0.0 . % LAB BA% Basophils % (Auto) 0.1 . % LAB NRBC% NRBC% 0.0 Normal 0-0.5 /100{WBC} LAB NE# Neutrophils # (Auto) 10.7 High 1.8-7.7 10*3/uL LAB LY# Lymphocytes # (Auto) 0.5 Low 1.00-4.8 10*3/uL LAB MO# Monocytes # (Auto) 0.2 Normal 0.0-0.8 10*3/uL LAB EO# Eosinophils # (Auto) 0.0 Normal 0.0-0.45 10*3/uL LAB BA# Basophils # (Auto) 0.0 Normal 0.0-0.2 10*3/uL Result Comment: PERFORMED BY : [place] [address] PATHOLOGIST DIRECTOR [employer] RAIN M.D. Performed By: #### URIC, PT, HEPATIC, PTT, MG, CBC, PHOS, BMP #### [address] HEPATIC PANEL Collected: 01/20/2025 10:13 PM Status: F Source: [facility] TYPE CODE TESTS RESULT OUT OF RANGE REFERENCE UNITS LAB TP Total Protein 6.3 Low 6.4-8.9 g/dL LAB ALB Albumin Level 3.5 Normal 3.5-5.7 g/dL LAB GLOB Globulin 2.8 g/dL LAB AGRATIO Albumin/Globulin Ratio 1.3 LAB BILIT Bilirubin,Total 0.4 Normal 0.3-1.0 mg/dL LAB BILID Bilirubin,Direct 0.10 Normal 0.03-0.18 mg/dL LAB BILII Bilirubin,Indirect 0.3 mg/dL LAB AST Aspartate Amino Transferase 29 Normal 13-39 U/L LAB ALT Alanine Aminotransferase 30 Normal 7-52 U/L LAB ALP Alkaline Phosphatase 110 High 34-104 U/L Performed By: #### URIC, PT, HEPATIC, PTT, MG, CBC, PHOS, BMP #### [facility] [address] [place] [address] [facility] BASIC METABOLIC PANEL Collected: 2024 10:13 PM Status: F Source: [facility] TYPE CODE TESTS RESULT OUT OF RANGE REFERENCE UNITS LAB GLU Glucose 304 High 70-100 mg/dL Result Comment: Random Gluco se Reference Range is dependent on time and content of last meal. Glucose of more than 200 mg/dL in a nonstressed, ambulatory subject supports the diagnosis of Diabetes Mellitus. ADA recommended reference range LAB BUN Blood Urea Nitrogen 69 High 7-25 mg/dL LAB CREATT Creatinine 4.08 High 0.70-1.30 mg/dL LAB GFReNR Estimated GFR 15.168 mL/Min LAB NA Sodium 124 Low Off Scale 136-145 mmol/L Result Comment: Critical Res ult Called to and read back by: OVI RUIZ at: 01/20/2025 22:51:44 by:[id number] LAB K Potassium 5.3 High 3.5-5.1 mmol/L LAB CL Chloride 96 Low 98-107 mmol/L LAB CO2 Carbon Dioxide 18.4 Low 21.0-31.0 mmol/L LAB GAP Anion Gap 14.9 Normal 6.0-15.0 meq/L LAB CA Calcium 9.0 Normal 8.6-10.3 mg/dL LAB CRCLPHA Creatinine Clr Calc Pharmacy 26.83 Performed By: #### URIC, PT, HEPATIC, PTT, MG, CBC, PHOS, BMP #### [facility] [address] [place] [address] [facility] PHOSPHORUS Collected: 10:13 PM Status: F Source: [facility] TYPE CODE TESTS RESULT OUT OF RANGE REFERENCE UNITS LAB PHOS Phosphorus 5.4 High 2.5-4.5 mg/dL Performed By: #### URIC, PT, HEPATIC, PTT, MG, CBC, PHOS, BMP #### [facility] [address] [place] [address] MAGNESIUM Collected: 5 10:13 PM Status: F Source: [facility] TYPE CODE TESTS RESULT OUT OF RANGE REFERENCE UNITS LAB MG Magnesium 1.9 Normal 1.9-2.7 mg/dL Performed By: #### URIC, PT, HEPATIC, PTT, MG, CBC, PHOS, BMP #### [facility] [address] [place] [address] URIC ACID Collected: 5 10:13 PM Status: F Source: [facility] TYPE CODE TESTS RESULT OUT OF RANGE REFERENCE UNITS LAB URIC Uric Acid 9.7 High 4.4-7.6 mg/dL Result Comment: PERFORMED BY : [place] [address] PATHOLOGIST DIRECTOR [employer] RAIN M.D. Performed By: #### URIC, PT, HEPATIC, PTT, MG, CBC, PHOS, BMP #### [address] PROTHROMBIN TIME INR Collected: 025 10:13 PM Status: F Source: [facility] TYPE CODE TESTS RESULT OUT OF RANGE REFERENCE UNITS LAB R PT Prothrombin Time 12.0 Normal 9.0-12.9 s Result Comment: A hematocrit value greater than 55% may lead to inaccurate results in coagulation testing. Patients having hematocrit values >55% require a special collection tube for coagulation studies. Please contact the laboratory at [phone] for redraw instructions. LAB INR INR 1.1 Result Comment: INR Therapeu tic Range A) Pre- and Peroperative OAT started two weeks before surgery. NOT HIP SURGERY: 1.5 - 2.5 HIP SURGERY: 2 - 3 B) Primary and secondary prevention of venous THROMBOSIS: 2 - 3 C) Active venous thrombosis, pulmonary embolism and prevention of recurrent venous thrombosis: 2 - 3 D) Prevention of arterial thromboembolism including patients with mechanical heart valves: 3 - 4.5 Performed By: #### URIC, PT, HEPATIC, PTT, MG, CBC, PHOS, BMP #### [facility] [address] [place] [address] [facility] PARTIAL THROMBOPLASTIN TIME Collected: 01/20/2025 10: 13 PM Status: F Source: [facility] TYPE CODE TESTS RESULT OUT OF RANGE REFERENCE UNITS LAB PTT Partial Thromboplastin Time 25.5 Normal 25.1-36.5 s Result Comment: A hematocrit value greater than 55% may lead to inaccurate results in coagulation testing. Patients having hematocrit values >55% require a special collection tube for coagulation studies. Please contact the laboratory at [phone] for redraw instructions. PERFORMED BY: [place] [id number] PATHOLOGIST DIRECTOR [employer]LE [employer] R[employer] RAIN M.D. Performed By: #### URIC, PT, HEPATIC, PTT, MG, CBC, PHOS, BMP #### [facility] [address] [place] [address] [facility] 36 Observed: 01/13/2025 11:00 AM Status: COMPLETED Source: [facility] Brenton from [place] called an d states they have an order for MRI for Lt knee and he has a LT knee Prosthesis and is wondering if Dr. Barnett would like to change this to a Ct instead. [place] number is [phone] 36 Observed: 01/03/2025 10:20 AM Status: COMPLETED Source: [facility] called and states they need a creatnin order sent over for patients MRI that is on Thursday the . Provided fax [phone] TELEPHONE Observed: 01/03/2025 12:00 AM Status: COMPLETED Source: [facility] [id number] Joie Lu 1955 M Date Provider Department Center 01/03/2025 [id number]-AQCAUSMAURY RAMÍREZ MP ORTHO MPORTHO No family history on file Reason for Visit and Comments: MRI [Other] 29 Observed: 12/22/2024 10:40 AM Status: COMPLETED Source: [facility] Addended by: GROVER CHERRY on: 12/26/2024 12:52 PM Modules accepted: Orders PROGRESS Observed: 12/22/2024 10:40 AM Status: COMPLETED Source: [facility] Attestation signed by Derrick Barnett MD at [...] history of revision left TJA done at [facility] for infection with DOS in 2013. [...] follow up with the joint service at [facility] in January. Patient gives an extensive/complex history of left knee issues dating back greater than 10 years, following his previous total knee replacement surgery developed infection and required multiple procedures including periprosthetic joint revision and most of his surgeries were done at [facility]. He has had effusions since his [...] within normal limits. Right knee aspiration in [place] 06/13/2024 cell count 554. Left knee aspiration [...] a hinged knee component in 2013 at [facility]. Patient states that his providers have just indicated conservative management for an increasing solid soft tissue mass that he localizes to the medial aspect of his left knee. Patient states that he has noticed that this mass is enlarging very slowly over time. He does report it is painful and that his knee is also unstable at the same time he has had several falls including 1 just 3 days ago. Patient gives an extensive/complex history of left knee issues dating back greater than 10 years, following his previous total knee replacement surgery developed infection and required multiple procedures including periprosthetic joint revision and most of his surgeries were done at [facility]. He has had effusions since his last surgery which have been treated with Umair wrap and compression sleeve. He has underwent several aspirations which have been negative for infection. Chart communication regarding patient with upcoming appointment to see Dr. Nunez in early January. Chronic pain on Percocet 5/325 every 6 as needed 06/13/2024 ESR and CRP within normal limits. Right knee aspiration in [place] 06/13/2024 cell count 554. Left knee aspiration 06/13/2024 cell count 287 History of diabetes with neuropathy Hemoglobin A1c 6.2 12/08/2024 Gabapentin 600 mg 3 times daily. Medical history includes type 2 diabetes, hypertension, depression, PJI left knee History No past surgical history on file. No past medical history on file. Objective General: There is no height or weight on file to calculate BMI. No acute distress, comfortable Respiratory: Unlabored breathing with normal rate, no cough Cardiovascular: Warm well perfused extremities Psych: Appropriate mood behavior General: No acute distress alert and oriented sitting comfortably in bed Left lower extremity: Abrasion anterior aspect of left knee approximately 3 x 3 cm Large mass to the medial aspect of the left knee approximately 15 cm in length ROM-45 degree extension lag flexion to 110 [...] My interpretation is no acute fractures or dislocations is right total knee prosthesis with all poly tibia is in maintained alignment without significant change from prior x-ray. Left knee x-rays obtained today in clinic: My interpretation is loosening of tibial and femoral components with loose metal body the medial superior pouch of the knee. There is a large soft tissue shadow medially. There is patellar Baha. Overall there seems to be more bone loss than on his prior x-ray. Left knee MRI without contrast, 09/12/2024: 12.3 X6.2X8 0.3 cm multi segmented part fluid part solid process of the medial joint line. Assessment/Plan Joie Lu is a 69 y.o. year old male with status post left total knee arthroplasty revision for periprosthetic joint infection his most recent surgery was in 2018 with left medial knee mass with both fluid and solid components which has been enlarging. No diagnosis found. Stat MRI left knee with contrast Stat ultrasound or CT-guided core needle biopsy of the solid aspect of his left medial knee mass. We will get blood work including CBC, BMP, ESR, CRP, TSH, PTH, SPEP We will get a chest x-ray Patient will follow-up after these tests Abdelrahman Russell MD Orthopedic Surgery Resident Orthopedic Surgery Pager: [phone] 12/22/24 12:35 PM By using the attestations below, the signing clinician agrees that I have read and verify that the documentation has been personally reviewed by me and ensure that the documentation accurately reflects the encounter. GC: I personally saw this patient on the day of the encounter, performed the hinojosa portion(s) of the service and participated in the management and confirm the resident's documentation. Please note there may be an additional personal documentation from me. FOLLOW-UP Observed: 12/22/2024 10:40 AM Status: COMPLETED Source: [facility] [id number] Joie Lu Judie 1955 M Date Provider Department Center 12/22/2024 Shilpi-DERRICK BARNETT MP ORTHO MPORTHO No family history on file Level of Service:34768 [place] OFFICE/OUTPATIENT ESTABLISHED HIGH MDM 40 MIN (GC) Reason for Visit and Comments: Pain [136] 36 Observed: 12/01/2024 8:21 AM Status: COMPLETED Source: [facility] Patient called and states he received a call from fátima stating he needed to be seen today, and he had to cancel. Block Hand placed him in slot for first available and stated I would put a note back to verify, and he could be rescheduled once this is done. Patient number is [phone] 36 Observed: 11/28/2024 11:49 AM Status: COMPLETED Source: [facility] Patient states the disc was already here since he seen Dr. Rosado and it was given to him along with the MRI report. He lives 2 hours away and wants to make sure he can be seen before coming all the back here. Is there any way to verify this? Please advise at [phone] CNPJeremiah Observed: 11/11/2024 12:00 AM Status: COMPLETED Source: [facility] Telephone (ORAVON) VICKY LUSANDRA Dimas ([id number]) 1955 M Date Time Provider Department 11/11/24 [...] discussed him coming in to see Dr. Nunez with repeat imaging in early January. Allergies [...] Clostridium difficile infection [Z86.19] 12/01/2012 DVT prophylaxis [[id number]] 12/01/2012 Metatarsalgia [M77.40] 01/23/2014 Infection and inflammatory [...] [J32.8] 10/31/2022 Acute recurrent frontal sinusitis [J01.11] 10/31/2022 Community acquired pneumonia of left lower lobe*11/06/2023 Abscess of knee, left [L02.416] 11/06/2023 Knee swelling [M25.469] 11/06/2023 Hernandez's cyst of knee, left [M71.22] 11/08/2023 Encounter Status:Closed by SYED RAMIREZ on 11/11/24 ANNELIESE Observed: 11/10/2024 12:00 AM Status: COMPLETED Source: [facility] Telephone (OTOLMN) JOIE LU JR ([id number]) 1955 Date Time Provider Department 11/10/24 PARTHA JACKSON During your visit today, we recorded the following information about you: Mariluz Orellana 11/10/2024 10:17 AM Signed Pt coming from far away and states he really doesn't have gas money for 2 trips. Asking if Partha can see him sometime on 11/24. I know I have to ask about the office use only slots Shirley Snell, RN 11/10/2024 10:25 AM Signed Patient has appointment on 11/[address] Rasmussen at 3pm and is wondering if he can see Partha that day instead of on 11/15? Shirley Snell RN 11/10/2024 11:46 AM Signed Tried calling patient, no answer, LM relaying that Partha is in [place] that day and to call back with what he would like to to. Isiah Warner 11/10/2024 12:41 PM Signed Person Calling: Mason Reason for Call: pt wants to reschedule visit with Partha to 12/12 or 12/13 but wants to know if she can refill his meds until then Pt Phone #: [phone] Pharmacy Name and # : Pt last [...] Clostridium difficile infection [Z86.19] 12/01/2012 DVT prophylaxis [[id number]] 12/01/2012 Metatarsalgia [M77.40] 01/23/2014 Infection and inflammatory [...] [J32.8] 10/31/2022 Acute recurrent frontal sinusitis [J01.11] 10/31/2022 Community acquired pneumonia of left lower lobe*11/06/2023 Abscess of knee, left [L02.416] 11/06/2023 Knee swelling [M25.469] 11/06/2023 Hernandez's cyst of knee, left [M71.22] 11/08/2023 Prescriptions ordered this encounter Disp Refills Start End CLONAZEPAM 1 MG TABLET 270 * 1 11/10/2024 05/09/2025 Route: ORAL Sig: Take 1 tablet by mouth three times a day as needed for up to 180 days. Medications Discontinued During This Encounter Prescriptions - clonazePAM (KLONOPIN) 1 mg tablet (Discontinued) Take 1 tablet by mouth three times a day as needed for up to 180 days. Encounter Status:Closed by PARTHA JACKSON I on 11/10/24 36 Observed: 10/13/2024 3:28 PM Status: COMPLETED Source: [facility] Spoke with patient. Relayed message. Patient is going to call his surgeon in [place]. NO further action is needed. 36 Observed: 10/13/2024 2:57 PM Status: COMPLETED Source: [facility] LVM TO CALL BACK TO DISCUSS 36 Observed: 10/10/2024 3:43 PM Status: COMPLETED Source: [facility] Sent message to dr rosado 36 Observed: 10/10/2024 3:39 PM Status: COMPLETED Source: [facility] Patient got his MRI done and would like to be seen sooner due to the Mass getting bigger after reading your note I didn't know if you want to book him a appt to see you or with someone else. 36 Observed: 10/07/2024 3:18 PM Status: COMPLETED Source: [facility] Patient would like to be squ eezed in sooner due to the mass on his leg growing in size, Block Hand doesn't have ability to double book at this time. Please contact patient at [phone] TELEPHONE Observed: 10/07/2024 12:00 AM Status: COMPLETED Source: [facility] [id number] Joie Lu 1955 [facility] Provider Department Center 10/07/2024 [id number]-QCADQIMAURY DIAZ MP ORTHO MPORTHO No family history on file Reason for Visit and Comments: Appointment [375] 36 Observed: 10/05/2024 10:56 AM Status: COMPLETED Source: [facility] Neris Low (PCP) nurse called and would like confirmation if we can give results to the patient about his xray. Block Hand told her we could not give results over the phone but I would put a message back to let you know he has been calling their office everyday to ask them for these results, provider doesn't feel comfortable sharing results with him. He is scheduled for 11/21/[address] Rosado TELEPHONE Observed: 10/05/2024 12:00 AM Status: COMPLETED Source: [facility] [id number] Joie Lu 1955 [facility] Provider Department [place] 10/05/2024 [id number]-RISGIYMAURY DIAZ MP ORTHO MPORTHO No family history on file Reason for Visit and Comments: Results [95] MR KNEE LEFT WO CONTRAST Observed: 09/30 1:57 PM Status: UNK Source: [facility] Knee prosthesis revision wit h chronic slowly growing soft tissue mass medial [...] mass effect within this process I favor pseudotumor/granulomatous reaction to the prosthesis/particle disease. Process is nonaggressive and well-defined. I cannot evaluate its extent within the knee due to the hardware artifact joint particle disease Electronically signed: William Jung. PROGRESS Observed: 09/12/2024 11:00 AM Status: COMPLETED Source: [facility] Orthopaedic Surgery Subjective New Patient of the Right Knee and New Patient of the Left Knee (Second opinion Large Mass on the inside of knee ) 09/12/24 Mason Lu is a 69 y.o. male presenting for evaluation of his left knee. 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 Subsequently underwent revision TKA by Dr Cassy Escamilla, using a hinged knee component in 2013 at [facility]. Patient states that his providers have [...] most of his surgeries were done at [facility]. His most recent surgery at [facility] was single-stage revision for failed internal implant. He has retained metallic component as well. He most recently was worked up in the emergency department at [facility] by way of left knee aspiration, advanced [...] Right- 2022 @ [facility] - and [facility] Left Knee in 2018 History History reviewed. No pertinent surgical history. History reviewed. No pertinent past medical history. Acute Pain of Left Knee, Septic arthritis of knee, left (HCC) Type 2 Diabetes Mellitus Without Complication, Without Long-Term Current Use of Insulin (Hcc) Hypothyroidism Hyperlipidemia Htn (Hypertension) Gout Wrist Arthritis Pneumonia Elevated Lfts Pulmonary Nodule H/O Clostridium Difficile Infection Dvt Prophylaxis Metatarsalgia Infection and Inflammatory Reaction Due to Unspecified Device, Implant, and Graft Left Wrist Pain Arthritis of Left Wrist Carpal Tunnel Syndrome Diabetic Neuropathy, Painful ([facility]) Arthralgia of Right Lower Leg History of Transmetatarsal Amputation of Right Foot ([facility]) Mixed Conductive and Sensorineural Hearing Loss of Right Ear With Restricted Hearing of Left Ear Sensorineural Hearing Loss (Snhl) of Left Ear With Restricted Hearing of Right Ear 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 Tinnitus, Right Ear Anxiety Obesity Chronic Back Pain Chronic Obstructive Lung Disease ([facility]) Depressive Disorder 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 Musculature Postoperative Pain Other Chronic Sinusitis Acute Recurrent Frontal Sinusitis Community Acquired Pneumonia of Left Lower Lobe of Lung Abscess of Knee, Left Knee Swelling Hernandez's Cyst of Knee, Left Objective General: There [...] to varus and valgus stress Stable to anterior and posterior thrust Gait: Patient presented in wheelchair but able to demonstrate ambulation with antalgic gait Imaging X-rays of the left knee taken today with multiple views were reviewed: This demonstrates status post revision total knee arthroplasty with hinged knee prosthesis. There is likelihood of apparent pistoning effect which may be secondary to the debonding of the hinged locking mechanism with a free-floating metal piece noted on the medial aspect of the medial femoral condyle. There is significant osteolysis most notably in the medial tibial plateau secondary to possible recurrent infections and chronic osteomyelitis. Patient also has a diffuse soft tissue swelling over the medial aspect of his thigh there is overlying the medial pes anserine bursal region measuring approximately 16 cm x 8 cm. This may be secondary to calcification of the previous infection or hematoma versus metallosis leading to pseudotumor formation. This will be best evaluated by using [place] MRI scan of the left knee joint and aspiration for infection. There is fragmentation and thinning of the patella which has not been resurfaced. X-rays of the right knee joint 3 views were also repeated today in the office and was seen by myself and interpreted independently, which show the patient has right total knee arthroplasty with all polythene tibial component along with femoral component noted which is well aligned. No new fracture or dislocation seen. Wasting of the quadriceps possible. Assessment/Plan Mason Lu is a 69 y.o. 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 3. Left knee joint limited range of motion secondary to stiffness status post revision knee arthroplasty 4. Right total knee arthroplasty with polythene tibia component. Discussed the patient's clinical and radiographic findings in detail and answered all questions. With the patient's radiographs coupled with their clinical findings there is clinical concern for possible osteomyelitis with metallosis and subsequent pseudotumor formation on the medial aspect of the patient's knee. Patient will benefit with fine-needle aspiration cytology with pathology of this mass for further delineation as the patient believes this is growing in size. It is likely that this mass is secondary to calcification of the chronic recurrent infection and possible medial pes anserine reversal hematoma. However as the patient has not previously been worked up for this we strongly recommend starting with a metal subtraction(MARS) MRI scan of the right knee joint with and without contrast as well possibly following that up with fine-needle aspiration for further workup of the etiology of the mass. If this comes back as positive for any malignancy we will need to refer him to Dr. Barnett, for further evaluation and treatment. I have also explained to the patient that he has complex issues including possible debonding of the previous revision knee arthroplasty along with lucencies secondary to possible recurrent infections and chronic osteomyelitis of his proximal tibia. Since he has had a recurrent infections he may need further revisions and/or fusion and/or above-knee amputations of the right knee arthroplasty in future. Since he has been seen at [facility] I have recommended that he follows up with them for further treatment in future since he has cemented longstem tibial and femoral components with hinged knee arthroplasty with current failure of the knee arthroplasty and bone loss in the distal femur as well. Considerable time was spent in explained to the patient the nature of the problem and limited options for his complex issues with his left knee joint. Patient has also had recurrent infections and possible infection of his right knee joint and has had long-term antibiotic suppression in the form of doxycycline in the past. Patient demonstrated good understanding after discussion is amenable to this plan Will have the patient follow-up once the MRI is completed to discuss the results and above-mentioned referral if required. Jay Claudio MD Orthopaedic Surgery PGY-3 09/12/24 1:57 PM By using the attestations below, the signing clinician agrees that I have read and verify that the documentation has been personally reviewed by me and ensure that the documentation accurately reflects the encounter. GC: I personally saw this patient on the day of the encounter, performed the hinojosa portion(s) of the service and participated in the management and confirm the resident's documentation. Please note there may be an additional personal documentation from me. Dr. Chun Rosado MD [facility] orthopedic surgery Adult Reconstruction [facility] Tra[facility] [facility]. OFFICE VISIT Observed: 09/12/2024 11:00 AM Status: COMPLETED Source: [facility] [id number] LuJoie Judie 1955 Date Provider Department Center 09/12/2024 Chaim-CHUN ROSADO MP [facility] No family history on file Level of Service:22692 MT OFFICE/OUTPATIENT NEW MODERATE MDM 45 MINUTES (GC) Reason for Visit and Comments: New Patient [632] New Patient [632] - Second opinion Large Mass on the inside of knee 36 Observed: 07/25/2024 10:41 AM Status: COMPLETED Source: [facility] Patient called to schedule a new patient appointment with our office. 09/12/24 Patient wants to be seen for: Bilaterial Knee Patient had X ray done at [facility] 07/22/24 Patient had Bilaterial knee replacement right knee antibotic spacer done on Right- 2022 @ [facility] [place] Left Knee in 2017 @ [facility]. Cassy Escamilla and [facility] in [place] Patient saw (see above) for this issues. They were not referred to us from this provider. This appointment is a second opionion This appointment IS NOT related to a work related injury XR KNEE 4V AP/PA/LAT/MERCH HUONG Observed: 07/22/2024 10:07 AM Status: F Source: [facility] * * *Final Report* * * DATE [...] Postoperative changes of the knees as described. Director Of Operations Home Health: APRIL Transcribe Date/Time: Jul 22 2024 10:43A Dictated by : DERRICK SIMS MD This examination was interpreted and the report reviewed and electronically signed by: DERRICK SIMS MD on Jul 22 2024 10:45AM EST [id number] CNOV Observed: 07/22/2024 10:00 AM Status: COMPLETED Source: [facility] Office Visit (ORTHMN) JOIE LU JR ([id number]) 1955 M Date Time Provider Department 07/22/24 10:00 AM CARMEN WILLIAM ORTHMN During your visit today, we recorded the following information about you: Weight Height 146.5 kg 1.93 m Carmen William MD 07/22/2024 11:48 AM Signed SERVICE DATE: July 13, 2024 PCP: Regan Ortega MD Patient was self-referred. Subjective Patient ID: Mason is a 69 year old male. Left knee, chronic pain. Hx of left knee replacement.2018 by Mayra Bruce.The patient is a 69-year-old male, who [...] or sweats. He was referred to the [facility] for evaluation and consideration of further surgery. 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 Review of Systems ACTIVE PROBLEM LIST Acute Pain of Left Knee Septic arthritis of knee, left ([facility]) Type 2 Diabetes Mellitus Without Complication, Without Long-Term Current Use of Insulin ([facility]) Hypothyroidism Hyperlipidemia Htn (Hypertension) Gout Wrist Arthritis Pneumonia Elevated Lfts Pulmonary Nodule H/O Clostridium Difficile Infection Dvt Prophylaxis Metatarsalgia Infection and Inflammatory Reaction Due to Unspecified Device, Implant, and Graft Left Wrist Pain Arthritis of Left Wrist Carpal Tunnel Syndrome Diabetic Neuropathy, Painful ([facility]) Arthralgia of Right Lower Leg History of Transmetatarsal Amputation of Right Foot ([facility]) Mixed Conductive and Sensorineural Hearing Loss of Right Ear With Restricted Hearing of Left Ear Sensorineural Hearing Loss (Snhl) of Left Ear With Restricted Hearing of Right Ear 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 Tinnitus, Right Ear Anxiety Obesity Chronic Back Pain Chronic Obstructive Lung Disease ([facility]) Depressive Disorder 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 Musculature Postoperative Pain Other Chronic Sinusitis Acute Recurrent Frontal Sinusitis Community Acquired Pneumonia of Left Lower Lobe of Lung Abscess of Knee, Left Knee Swelling Hernandez's Cyst of Knee, Left PAST MEDICAL HISTORY Diagnosis Date Depression DM type 2 (diabetes mellitus, type 2) ([facility]) Fracture Gout H/O Clostridium difficile infection 10/2012 History of cholecystectomy HTN (hypertension) Hyperlipidemia Hypothyroidism Osteomyelitis of knee region ([facility]) left, s/p knee replacement Pain chronic PAST [...] Lu JR DATE: 07/22/2024 TIME: 1:42 PM Allergies As of Date: 07/22/2024 Noted Allergy Reaction MORPHINE 05/25/2014 2 - Rash 9 - Itching BEE STING 08/18/2018 7 - Swelling 10 - Anaphylaxis PENICILLINS 01/16/2015 9 - Itching Date Reviewed: 07/22/2024 Reviewed by: Praveena Shah OCCA - Fully Assessed Reason for Visit: Knee Pain [132] New [808164] Swelling [205] Numbness [75] Knee Pain [132] New [[id number]] Primary Visit Diagnosis:Prosthetic joint infection, sequela [T84.50XS] Prescriptions as of 07/22/2024 - clonazePAM (KLONOPIN) 1 mg tablet Take [...] once daily. Problem List As Of Date 07/22/2024 Noted Resolved Acute pain of left knee [...] Clostridium difficile infection [Z86.19] 12/01/2012 DVT prophylaxis [[id number]] 12/01/2012 Metatarsalgia [M77.40] 01/23/2014 Infection and inflammatory [...] [J32.8] 10/31/2022 Acute recurrent frontal sinusitis [J01.11] 10/31/2022 Community acquired pneumonia of left lower lobe*11/06/2023 Abscess of knee, left [L02.416] 11/06/2023 Knee swelling [M25.469] 11/06/2023 Hernandez's cyst of knee, left [M71.22] 11/08/2023 Encounter Status:Closed by CARMEN WILLIAM on 07/22/24 PROGRESS Observed: 07/22/2024 9:00 AM Status: COMPLETED Source: [facility] HNO ID: [id number] Author: JAMAL DONNELLY RT(Lindsey) Service: ? Author Type: Technologist Type: Progress [...] PATIENT PRESENTS WITH AN IMPLANTABLE OR ATTACHED RESTAURANT MGR: No RADIOLOGY DEPARTMENT: General X-ray: Exam(s) Completed: Lower Extremity X-Ray(s): Knee, AP / Lat / Tunne / Merchant Bilateral PERIPHERAL IV DATA: Not applicable SIGNED BY: RT Ruma(R) July 22, 2024 10:08 AM PROGRESS Observed: 07/13/2024 1:42 PM Status: COMPLETED Source: [facility] HNO ID: [id number] Author: CARMEN WILLIAM MD Service: ? Author Type: Physician Type: Progress Notes Filed: 07/22/2024 11:48 Note Text: SERVICE DATE: July 13, 2024 PCP: Regan Ortega MD Patient was self-referred. Subjective Patient ID: Mason is a 69 year old male. Left knee, chronic pain. Hx of left knee replacement.2018 by Mayra Bruce.The patient is a 69-year-old male, who [...] or sweats. He was referred to the [facility] for evaluation and consideration of further surgery. 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 Review of Systems ACTIVE PROBLEM LIST Acute Pain of Left Knee Septic arthritis of knee, left ([facility]) Type 2 Diabetes Mellitus Without Complication, Without Long-Term Current Use of Insulin ([facility]) Hypothyroidism Hyperlipidemia Htn (Hypertension) Gout Wrist Arthritis Pneumonia Elevated Lfts Pulmonary Nodule H/O Clostridium Difficile Infection Dvt Prophylaxis Metatarsalgia Infection and Inflammatory Reaction Due to Unspecified Device, Implant, and Graft Left Wrist Pain Arthritis of Left Wrist Carpal Tunnel Syndrome Diabetic Neuropathy, Painful ([facility]) Arthralgia of Right Lower Leg History of Transmetatarsal Amputation of Right Foot ([facility]) Mixed Conductive and Sensorineural Hearing Loss of Right Ear With Restricted Hearing of Left Ear Sensorineural Hearing Loss (Snhl) of Left Ear With Restricted Hearing of Right Ear 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 Tinnitus, Right Ear Anxiety Obesity Chronic Back Pain Chronic Obstructive Lung Disease ([facility]) Depressive Disorder 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 Musculature Postoperative Pain Other Chronic Sinusitis Acute Recurrent Frontal Sinusitis Community Acquired Pneumonia of Left Lower Lobe of Lung Abscess of Knee, Left Knee Swelling Hernandez's Cyst of Knee, Left PAST MEDICAL HISTORY Diagnosis Date Depression DM type 2 (diabetes mellitus, type 2) ([facility]) Fracture Gout H/O Clostridium difficile infection 10/2012 History of cholecystectomy HTN (hypertension) Hyperlipidemia Hypothyroidism 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 Performed By: #### GLYHGB ## ## [address] [address] Haircutter: Glenn Noyola MD SEDIMENTATION RATE Collected: 06/13/2024 12:[address] atus: F Source: [facility] TYPE CODE TESTS RESULT OUT OF RANGE REFERENCE UNITS LAB SED(LOINC) Sedimentation Rate 2 0-20 mm/Hr Performed By: #### SED, CRP #### [address] [place] [address] Haircutter: Oliver Cabrera MD C-REACTIVE PROTEIN Collected: 12:10 PM Status: F Source: [facility] TYPE CODE TESTS RESULT OUT OF RANGE REFERENCE UNITS LAB CRP(LOINC) C-Reactive Protein <3.0 0.0-5.0 mg/L Performed By: #### SED, CRP #### [address] [place] [address] Haircutter: Oliver Cabrera MD FLUID CELL COUNT AND DIFF Collected: 11:10 AM Status: F Source: [facility] TYPE CODE TESTS RESULT OUT OF RANGE REFERENCE UNITS LAB BFCOL(LOINC) Color Red LAB BFAPPR(LOINC) Appearance Cloudy LAB BFWBC(LOINC) WBC 287 cells/uL LAB BFRBC(LOINC) RBC 16287 cells/uL LAB SPECBF(LOINC) Type of Specimen SEROSANGUINEOS FLUID Result Comment: LEFT KNEE LAB BFSEG(LOINC) Neutrophils 44 High 0 % LAB BFLYM(LOINC) Lymphocyte 56 High 0 % LAB BFMON(LOINC) Maries/Macrophage 0 % LAB BFEOS(LOINC) Eosinophils 0 % LAB BFBAS(LOINC) Basophils 0 % LAB BFOTH(LOINC) Other Cells 0 % Performed By: #### FLDCT ### # [facility] [address] [place] [address] [place] [address] Haircutter: Oliver Cabrera MD FLUID CELL COUNT AND DIFF Collected: 11:10 AM Status: F Source: [facility] TYPE CODE TESTS RESULT OUT OF RANGE REFERENCE UNITS LAB BFCOL(LOINC) Color Red LAB BFAPPR(LOINC) Appearance Cloudy LAB BFWBC(LOINC) WBC 554 cells/uL LAB BFRBC(LOINC) RBC 10688 cells/uL LAB SPECBF(LOINC) Type of Specimen SEROSANGUINEOUS Result Comment: RT KNEE LAB BFSEG(LOINC) Neutrophils 22 High 0 % LAB BFLYM(LOINC) Lymphocyte 78 High 0 % LAB BFMON(LOINC) Maries/Macrophag e 0 % LAB BFEOS(LOINC) Eosinophils 0 % LAB BFBAS(LOINC) Basophils 0 % LAB BFOTH(LOINC) Other Cells 0 % Performed By: #### FLDCT ### # [facility] [address] [place] [address] Haircutter: Oliver Cabrera MD CULT,FLUID Observed: 06/13/2024 11:10 AM Status: F Source: [facility] Specimen Description .KNEE R IGHT Special Requests RT KNEE SEROSANGUINEOUS FLUID Direct Exam NO NEUTROPHILS SEEN NO BACTERIA SEEN Gram stain made from cytocentrifuged specimen. Organisms and cells will be concentrated. Culture NO GROWTH 5 DAYS Report Status FINAL 06/18/2024 Performed By: #### FLCU #### [facility] [address] [place] [address] Haircutter: Glenn Noyola MD [facility] [address] [place] [address] [place] [address] Haircutter: Oliver Cabrera MD CULT,FLUID Observed: 06/13/2024 11:10 AM Status: F Source: [facility] Specimen Description .KNEE L EFT Direct Exam MODERATE NEUTROPHILS NO ORGANISMS SEEN Gram stain made from cytocentrifuged specimen. Organisms and cells will be concentrated. Culture NO GROWTH 5 DAYS Report Status FINAL 06/18/2024 Performed By: #### FLCU #### [facility] [address] [place] [address] Haircutter: Glenn Noyola MD [facility] [address] [place] [address] [place] [address] Haircutter: Oliver Cabrera MD PROGRESS Observed: 05/27/2024 3:43 PM Status: COMPLETED [facility] [id number] Author: PARTHA JACKSON PA-C Service: ? Author Type: Physician Flavorings Compounder Type: Progress Notes Filed: 05/27/2024 16:00 Note [...] on it. His PCP left and the [employer] MACHINE OPERATOR refused to write it for him. [...] Medical Decision Making Level: 3 - Low CNOV Observed: 05/27/2024 3:30 PM Status: COMPLETED Source: [facility] Office Visit (OTOLMN) JOIE LU JR ([id number]) 1955 M Date Time Provider Department 05/27/24 3:30 PM PARTHA JACKSON OTOLLD During your visit [...] on it. His PCP left and the [employer] MACHINE OPERATOR refused to write it for him. [...] Medical Decision Making Level: 3 - Low Allergies As of Date: 05/27/2024 Noted Allergy Reaction MORPHINE 05/25/2014 2 - Rash 9 - Itching BEE STING 08/18/2018 7 - Swelling 10 - Anaphylaxis PENICILLINS 01/16/2015 9 - Itching Date Reviewed: 05/27/2024 Reviewed by: Partha Jackson PA-C - Fully Assessed Reason for Visit: Follow Up [171] Cmt: Tinnitus, popping noise Visit Diagnosis: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 [H93.19] Order(s):clonazePAM (KLONOPIN) 1 mg tabletTake 1 tablet by mouth three times a day as needed for up to 180 days.Disp: 270 tabletRfl: 1 Prescriptions as of 05/27/2024 - clonazePAM (KLONOPIN) 1 mg tablet Take [...] once daily. Problem List As Of Date 05/27/2024 Noted Resolved Acute pain of left knee [...] Clostridium difficile infection [Z86.19] 12/01/2012 DVT prophylaxis [[id number]] 12/01/2012 Metatarsalgia [M77.40] 01/23/2014 Infection and inflammatory [...] [J32.8] 10/31/2022 Acute recurrent frontal sinusitis [J01.11] 10/31/2022 Community acquired pneumonia of left lower lobe*11/06/2023 Abscess of knee, left [L02.416] 11/06/2023 Knee swelling [M25.469] 11/06/2023 Hernandez's cyst of knee, left [M71.22] 11/08/2023 Visit Notes: >> Celia Nascimento RN ThuMay 27, 2024 3:42 PM Status: Signed Tobacco Use: .5 packs/day, for 1 years. Quit 02/15/1982. Types: Cigarettes Was smoking cessation packet given? N/A - Patient is a non-smoker or quit >1 year ago. Was a referral initiated?N/A Patient is a non-smoker Celia Nascimento, GEE Prescriptions ordered this encounter Disp Refills Start End CLONAZEPAM 1 MG TABLET 270 * 1 05/27/2024 11/23/2024 Route: ORAL Sig: Take 1 tablet by mouth three times a day as needed for up to 180 days. Medications Discontinued During This Encounter Prescriptions - clonazePAM (KLONOPIN) 1 mg tablet (Discontinued) Take 1 tablet by mouth three times daily for 180 days. Disposition: Return in about 6 months (around 11/27/2024) for [facility]. Follow-up and Disposition History for Encounter Date Provider Department Center 05/27/2024 [id number] JACKSON [facility] A Bld[facility] Encounter Status:Closed by PARTHA JACKSON I on 05/27/24 CNPN Observed: 05/25/2024 12:00 AM Status: COMPLETED Source: [facility] Telephone (HNQ) JOIE LU JR ([id number]) 1955 M Date Time Provider Department 05/25/24 PARTHA JACKSON HNQ During your visit today, we recorded the following information about you: Nichol Whittington 05/25/2024 9:55 AM Signed Person Calling: Patient Reason for Call: Patient is asking should he be worried about seizures since he cannot get his clonazepam until after his appt on 06/28. Please call Pt Phone #: [phone] Pharmacy Name and # : Pt last seen: 05/24/2024 Yancy Alexandra, GEE 05/25/2024 10:11 AM Signed Attempted to contact [...] Fully Assessed Reason for Visit: Patient Question [7577] Prescriptions as of 05/27/2024 - albuterol HFA [...] Clostridium difficile infection [Z86.19] 12/01/2012 DVT prophylaxis [[id number]] 12/01/2012 Metatarsalgia [M77.40] 01/23/2014 Infection and inflammatory [...] [J32.8] 10/31/2022 Acute recurrent frontal sinusitis [J01.11] 10/31/2022 Community acquired pneumonia of left lower lobe*11/06/2023 Abscess of knee, left [L02.416] 11/06/2023 Knee swelling [M25.469] 11/06/2023 Hernandez's cyst of knee, left [M71.22] 11/08/2023 Encounter Status:Closed by CELIA NASCIMENTO on 05/27/24 INFECTIOUS DISEASE OFFICE/CLINIC NOTE Observed: 05/05/2024 2:27 PM Status: F Source: [facility] This is a Telehealth Appoint ment *This visit was conducted via Telehealth with real time interactive synchronized audio and video communication. The patient provided written consent for treatment. The patient understands their rights, the HIPAA risks and that they will be charged accordingly for the services rendered. The patient was seen via telemedicine while they were at: home_ This telemedicine visit was conducted due to: Transportation_ Chief Complaint 3wk f/u R prosthetic knee infection History of Present Illness 68-year-old male being seen today in follow-up for prosthetic right knee infection. Patient is actually now at home. Reports he is getting over a sinus infection that moved into his lungs. He followed up with his primary care finishing his last dose of azithromycin today. He was also given steroids. This could explain why his WBCs were slightly elevated. He does feel a lot better. Were going to do the arthrocentesis sooner however because he was not feeling good they rescheduled it to 05/23. He is going to have this done out of [place]. He is getting around at home okay. He ambulates with a cane. He denies any fevers or chills. Wound itself in the right knee is healing nicely. No increased pain. No increased swelling. This is the best he has felt in a while. He denies any nausea, vomiting. No diarrhea. No complaints of chest pain or heart palpitations. Does not feel short of breath. Denies cough. Does report clear drainage when he blows his nose. No complaints on urination. Patient had completed his clindamycin on 04/20/2024. Clindamycin had been stopped due to he was to have arthrocentesis on 04/25 and potentially go back OR to have his knee replaced with spacer removed. This typewriter tester did review labs from 04/29/2024 white blood cells noted to be elevated at 13. Platelets looked okay his sed rate slightly elevated at 46. CRP elevated at 1.85. ID office did call and talk with patient apparently he is scheduled to have arthrocentesis study was sent to continue to May 23, 2024. Patient did go to the OR on 02/03/2024 for explantation right total knee with placement of spacer, saucerization of right femur/tibia bone. Cultures positive for MRSE. Also sent off synovial culture for bacterial DNA that was negative. Patient continues on IV vancomycin. Anticipated stop is 03/16/2024. [1] [1 [1] Review of Systems All systems have been reviewed and are negative other than those listed in the HPI Physical Exam Vitals & Measurements HT: 193 cm WT: 147.42 kg WT: 147.42 kg (Dosing) BMI: 39.58 Vitals reviewed. Patient in no apparent distress. No audible wheezes heard during exam. Conjunctiva is normal. Color appears normal. Was able to visualize right knee. Does not appear to be erythematous. Wound itself appears to be healed. No dehiscence seen. Answers questions appropriately. Additional Vitals No qualifying data available. Assessment/Plan 1. Infection of prosthetic right knee joint Plan: Most recent labs reviewed. Noted to have a slightly elevated white count at 13. Patient just steroids and he is on his last day of azithromycin for a sinus infection. This could explain the bump in white count. Overall his knee looks great. Inflammation markers have improved significantly. He is going to have repeat arthrocentesis on 05/23 at 10:30 AM. Will await cultures. Hopefully everything looks okay so he can go back to surgery have spacer removed and his knee replaced. Will see him back 05/26 and get a copy of his cultures from [employer]. Instructions to patient: If condition worsens in any way or you develop any signs or symptoms of infection please notify the office right away. Call for questions. Medical Decision Making Chronic conditions NOT treated during this visit that affected my overall medical decision making: [] Treatment plans discussed but not opted for at this time: [] Prescribed medication that requires intensive monitoring for toxicity: [] I have reviewed the patient?s medication list for medication interactions/contraindications and/or for upcoming procedures: [yes] Time Spent with the Patient I have [...] Total replacement of left knee joint (10/19/2017) Incision and Drainage Knee with Poly Exchange (Right, Knee) (07/22/2023) Application Wound Vac (Right, Knee) (07/22/2023) Arthroplasty Knee Total Revision with Poly Tibial Spacer (Right) (02/03/2024) Medications amLODIPine 5 mg oral tablet, 5 mg= 1 tabs, Oral, Daily atorvastatin 10 mg oral tablet, 10 mg= 1 tabs, Oral, Daily busPIRone 30 mg oral tablet, 30 mg= 1 tabs, Oral, BID clonazePAM 1 mg oral tablet, 1 mg= 1 tabs, Oral, TID, Scheduled fluticasone 50 mcg/inh nasal spray, 2 sprays, Nasal, qAM fluticasone-salmeterol 113 mcg-14 mcg/inh inhalation powder, 1 inh, BID furosemide 20 mg oral tablet, 20 mg= 1 tabs, Oral, Daily gabapentin 600 mg oral tablet, 600 mg= 1 tabs, Oral, TID glimepiride 4 mg oral tablet, 4 mg= 1 tabs, Oral, BID hydrOXYzine hydrochloride 50 mg oral tablet, 50 mg= 1 tabs, Oral, TID, Scheduled levothyroxine 125 mcg (0.125 mg) oral tablet, 125 mcg= 1 tabs, Oral, Daily lisinopril 20 mg oral tablet, 20 mg= 1 tabs, Oral, Daily loratadine 10 mg oral tablet, 10 mg= 1 tabs, Oral, Daily meloxicam 15 mg oral tablet, 15 mg= 1 tabs, Oral, Daily metFORMIN 850 mg oral tablet, 850 mg= 1 tabs, Oral, BID oxyCODONE 5 mg oral tablet, 5 mg= 1 tabs, Oral, q6hr, PRN prazosin 1 mg oral capsule, 1 mg= 1 caps, Oral, HS (at bedtime) Spiriva Respimat 1.25 mcg/inh inhalation aerosol, 2 puffs, Inhale, Daily Tylenol Extra Strength 500 mg oral tablet, 1000 mg= 2 tabs, Oral, q6hr, PRN venlafaxine 150 mg oral capsule, extended release, 150 mg= 1 caps, Oral, HS (at bedtime) Allergies morphine (Itching) bee venom (unknown) penicillins (unknown) Social History Alcohol Never Substance Abuse Denies [...] SARS-CoV-2 (COVID-19) mRNA-1273 vaccine 01/04/2021 Recorded Comments : 2023-08-31: [id number] Outside labs reviewed from 04/29/2024 WBC 13.8 Hgb 13.9 Platelets 180 Sed rate 46 Sodium 131 Potassium 4.5 Creatinine 1.47 GFR 58 Alkaline phos 166 AST 34 ALT 94 CRP 1.85 with a range of greater than 0.5. [2] Outside labs reviewed from 04/19/2024: WBC 6.38 Hgb 12.4 Platelets 112 Sed rate 5 CRP 12.6 with a range of 0.2-10.5 Glucose 95 BUN 17 Creatinine 1.3 NA 126 K4.8 [3] [1] Telehealth Office Visit Note; Linh Clemons 04/14/2024 14:55 EDT [2] Labs reviewed. Please call pt.; Linh Clemons 05/02/2024 15:51 EDT [3] Labs reviewed. Please call pt.; Linh Clemons 04/22/2024 08:16 EDT Electronically signed by Linden HINSON Linh Simone 05/05/24 14:58 EDT PROVIDER LETTER Observed: 04/14/2024 2:57 PM Status: F Source: [facility] (Inserted Image. Unable to d isplay) Re: Joie Lu Date of Visit: 04/14/2024 14:30:[address] Grove, In regards to our mutual patient Joie Lu. Attached you will find the most recent office visit note. Please call if you have any questions or concerns. Sincerely, Linh CHAPIN [facility] [address] [place] [address] Email: [email or web address] The following document(s) were included in the letter: April 14, 2024 14:55:45 EDT - (04/14/2024) Telehealth Office Visit Note GASTROENTEROLOGY OFFICE/CLIN IC NOTE Observed: 04/14/2024 2:55 PM Status: F Source: [facility] This is a Telehealth Appoint ment *This visit was conducted via Telehealth with real time interactive synchronized audio and video communication. The patient provided written consent for treatment. The patient understands their rights, the HIPAA risks and that they will be charged accordingly for the services rendered. The patient was seen via telemedicine while they were at: custodial This telemedicine visit was conducted due to: transportation_ Chief Complaint This is a f/u for R knee infection History of Present Illness 68-year-old male being seen today 1-1/2-week follow-up for prosthetic right knee joint infection. During last visit he was advised to continue taking his clindamycin as prescribed. Anticipated stop is 04/20. Patient reports he was taking his clindamycin as prescribed without complications. He actually followed up with the orthopedic team who stopped his antibiotics. Plan is to have joint aspiration on 04/25. If everything looks okay is can go back to surgery and have his knee replaced. He has been doing great. No nausea, vomiting or diarrhea. No increased swelling in his knee. No fevers or chills. He is now ambulating in the halls without difficulty. Overall feels improved. No shortness of breath or cough. No chest pain or heart palpitations. Does not feel lightheaded or dizzy. No complaints on urination. Patient did go to the OR on 02/03/2024 for explantation right total knee with placement of spacer, saucerization of right femur/tibia bone. Cultures positive for MRSE. Also sent off synovial culture for bacterial DNA that was negative. Patient continues on IV vancomycin. Anticipated stop is 03/16/2024. [1] [1] Review of Systems All systems have been reviewed and are negative other than those listed in the HPI Physical Exam Vitals & Measurements T: 36.6 ?C (Oral) HR: 92 (Peripheral) RR: 20 BP: 153/78 SpO2: 95 WT: 157.12 kg WT: 157.12 kg (Dosing) Vitals reviewed. Patient in no apparent distress. Conjunctiva and sclera is normal. Trach is midline. No audible wheezes heard during exam. Patient appears normal in color. He answers questions appropriately moves his upper extremities okay. Did not visualize right knee Additional Vitals No qualifying data available. Assessment/Plan 1. Infection of prosthetic right knee joint Plan: Patient followed up with Dr. Mcgowan. Clindamycin has been stopped. He is can have an arthrocentesis on 04/25/2024 if everything looks okay plan is to go back to surgery to have his knee replaced and spacer removed. Will have orders faxed to the [facility] to get lab work repeated this upcoming Thursday. Will call results. Return to clinic 2 to 3 weeks. Instructions to patient: If condition worsens in any way or you develop any signs or symptoms of infection please notify the office right away. Call for questions. Medical Decision Making Chronic conditions NOT treated during this visit that affected my overall medical decision making: [Anemia, anxiety, COPD depression hypertension type 2 diabetes] Treatment plans discussed but not opted for at this time: [] Prescribed medication that requires intensive monitoring for toxicity: [] I have reviewed the patient?s medication list for medication interactions/contraindications and/or for upcoming procedures: [Yes] Time Spent with the Patient I have personally spent [22] minutes on this date, directly related to [...] Total replacement of left knee joint (10/19/2017) Incision and Drainage Knee with Poly Exchange (Right, Knee) (07/22/2023) Application Wound Vac (Right, Knee) (07/22/2023) Arthroplasty Knee Total Revision with Poly Tibial Spacer (Right) (02/03/2024) Medications amLODIPine 5 mg oral tablet, 5 mg= 1 tabs, Oral, Daily atorvastatin 10 mg oral tablet, 10 mg= 1 tabs, Oral, Daily busPIRone 30 mg oral tablet, 30 mg= 1 tabs, Oral, BID clonazePAM 1 mg oral tablet, 1 mg= 1 tabs, Oral, TID, Scheduled fluticasone 50 mcg/inh nasal spray, 2 sprays, Nasal, qAM fluticasone-salmeterol 113 mcg-14 mcg/inh inhalation powder, 1 inh, BID furosemide 20 mg oral tablet, 20 mg= 1 tabs, Oral, Daily gabapentin 600 mg oral tablet, 600 mg= 1 tabs, Oral, TID glimepiride 4 mg oral tablet, 4 mg= 1 tabs, Oral, BID hydrOXYzine hydrochloride 50 mg oral tablet, 50 mg= 1 tabs, Oral, TID, Scheduled levothyroxine 125 mcg (0.125 mg) oral tablet, 125 mcg= 1 tabs, Oral, Daily lisinopril 20 mg oral tablet, 20 mg= 1 tabs, Oral, Daily loratadine 10 mg oral tablet, 10 mg= 1 tabs, Oral, Daily meloxicam 15 mg oral tablet, 15 mg= 1 tabs, Oral, Daily metFORMIN 850 mg oral tablet, 850 mg= 1 tabs, Oral, BID NovoLOG FlexPen 100 units/mL injectable solution, Subcutaneous, ACHS, sliding scale oxyCODONE 5 mg oral tablet, 5 mg= 1 tabs, Oral, q6hr, PRN prazosin 1 mg oral capsule, 1 mg= 1 caps, Oral, HS (at bedtime) Spiriva Respimat 1.25 mcg/inh inhalation aerosol, 2 puffs, Inhale, Daily Tylenol Extra Strength 500 mg oral tablet, 1000 mg= 2 tabs, Oral, q6hr, PRN venlafaxine 150 mg oral capsule, extended release, 150 mg= 1 caps, Oral, HS (at bedtime) Allergies morphine (Itching) bee venom (unknown) penicillins (unknown) Social History Alcohol Never Substance Abuse Denies [...] SARS-CoV-2 (COVID-19) mRNA-1273 vaccine 01/04/2021 Recorded Comments : 2023-08-31: TPV60 Lab Results Outside labs reviewed from 04/06/2024: Sed rate 5 CRP 2.8 with a range of 0.2-10.5 Glucose 143 BUN 25 Creatinine 1.2 GFR greater than 70 Total bilirubin 0.15 AST 24 ALT 19 Alkaline phos 104 Sodium 132 Potassium 5.3 Total protein 6.8 Albumin 4.6 WBC 7.73 Hgb 12.3 Platelets 148 [2] [1] Infectious Disease Office Visit Note; Linh Clemons 04/04/2024 14:12 EDT [2] Labs reviewed Please call pt.; Linh Clemons 04/08/2024 09:54 EDT Electronically signed by Linden HINSONLinh Simone 04/14/24 14:57 EDT PROVIDER LETTER Observed: 04/04/2024 2:15 PM Status: F Source: [facility] (Inserted Image. Unable to d isplay) Re: Joie Lu Date of Visit: 04/04/2024 14:00:[address] Grove, In regards to our mutual patient Joie Lu. Attached you will find the most recent office visit note. Please call if you have any questions or concerns. CC: Dr. Mcgowan-Orthopedic Surgeon. Sincerely, Linh CHAPIN Infectious Disease [facility] [address] [place] [address] Email: [email or web address] The following document(s) were included in the letter: April 04, 2024 14:12:13 EDT - (04/04/2024) Infectious Disease Office Visit Note INFECTIOUS DISEASE OFFICE/CLINIC NOTE Observed: 04/04/2024 2:12 PM Status: F Source: [facility] Assessment/Plan 1. Infection of prosthetic right knee joint Plan: Continue clindamycin as prescribed. They are going to fax over most recent labs from 03/21. Anticipated stop for clindamycin is 04/20. Plan is to follow-up with Dr. Mcgowan orthopedic surgeon next Wednesday 04/11 will get last office note. Patient will be having antibiotic spacer removed and replacement of right knee in the near future. Will have patient return to clinic 2 weeks to make sure we have plans in place. Instructions to the patient: If condition worsens in any way or you develop any signs or symptoms of infection please notify the office right away. Patient verbalizes understanding. Call for questions. Chief Complaint 2wk f/u right prosthetic knee joint infection History of Present Illness 68-year-old male being seen today 2-week follow-up for infection of right prosthetic knee. During last office visit decision was made to put him on clindamycin oral. Suggested may be probiotics would help. Patient continues to take clindamycin as prescribed without complications. Reports he is eating yogurt daily. Denies any side effects such as rashes, abdominal pain or diarrhea. Appetites been okay. He is tolerating physical therapy without complications. Denies any drainage around right knee. Does report swelling however not any worse right-sided larger in comparison to left. No fever. Plans on seeing her Juan M next Thursday. Plan is to have spacer removed and knee replaced in the near future. No headaches. No shortness of breath or cough. No chest pain or heart palpitations. Does not feel lightheaded or dizzy overall feels well. Patient did go to the OR on 02/03/2024 for explantation right total knee with placement of spacer, saucerization of right femur/tibia bone. Cultures positive for MRSE. Also sent off synovial culture for bacterial DNA that was negative. Patient continues on IV vancomycin. Anticipated stop is 03/16/2024. [1] Review of Systems All systems have been reviewed and are negative other than those listed in the HPI Physical Exam Vitals & Measurements HT: 193 cm WT: 157.35 kg WT: 157.35 kg (Dosing) BMI: 42.24 Vitals reviewed. Patient no apparent distress. Conjunctiva and sclera is normal. No audible wheezes heard during exam. Respiratory effort is even unlabored. Was not able to visualize right knee. Answers questions appropriately. Cultures from surgery reviewed. Staph epi with doxycycline JONE of 4 and resistant to tetracycline. Susceptible to clindamycin and Bactrim and linezolid. [2] Additional Vitals No qualifying data available. Medical Decision Making Chronic conditions NOT treated during this visit that affected my overall medical decision making: [Anxiety, COPD, depression, hypertension, diabetes] Treatment plans discussed but not opted for at this time: [] Prescribed medication that requires intensive monitoring for toxicity: [] I have reviewed the patient?s medication list for medication interactions/contraindications and/or for upcoming procedures: [Yes] Time Spent with the Patient I have personally spent 22 [] minutes on this date, directly related to today's patient visit, including pre and post visit work, for this date of service. Time listed does not include time spent on separately billable services. 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 Type 2 diabetes mellitus Historical No qualifying data Procedure/Surgical History Transmetatarsal amputation Total replacement of left knee joint (10/19/2017) Incision and Drainage Knee with Poly Exchange (Right, Knee) (07/22/2023) Application Wound Vac (Right, Knee) (07/22/2023) Arthroplasty Knee Total Revision with Poly Tibial Spacer (Right) (02/03/2024) Medications amLODIPine 5 mg oral tablet, 5 mg= 1 tabs, Oral, Daily atorvastatin 10 mg oral tablet, 10 mg= 1 tabs, Oral, Daily busPIRone 30 mg oral tablet, 30 mg= 1 tabs, Oral, BID clindamycin 300 mg oral capsule, 300 mg= 1 caps, Oral, TID clonazePAM 1 mg oral tablet, 1 mg= 1 tabs, Oral, TID, Scheduled fluticasone 50 mcg/inh nasal spray, 2 sprays, Nasal, qAM fluticasone-salmeterol 113 mcg-14 mcg/inh inhalation powder, 1 inh, BID furosemide 20 mg oral tablet, 20 mg= 1 tabs, Oral, Daily gabapentin 600 mg oral tablet, 600 mg= 1 tabs, Oral, TID glimepiride 4 mg oral tablet, 4 mg= 1 tabs, Oral, BID hydrOXYzine hydrochloride 50 mg oral tablet, 50 mg= 1 tabs, Oral, TID, Scheduled levothyroxine 125 mcg (0.125 mg) oral tablet, 125 mcg= 1 tabs, Oral, Daily lisinopril 20 mg oral tablet, 20 mg= 1 tabs, Oral, Daily loratadine 10 mg oral tablet, 10 mg= 1 tabs, Oral, Daily meloxicam 15 mg oral tablet, 15 mg= 1 tabs, Oral, Daily metFORMIN 850 mg oral tablet, 850 mg= 1 tabs, Oral, BID NovoLOG FlexPen 100 units/mL injectable solution, Subcutaneous, ACHS, sliding scale oxyCODONE 5 mg oral tablet, 5 mg= 1 tabs, Oral, q6hr, PRN prazosin 1 mg oral capsule, 1 mg= 1 caps, Oral, HS (at bedtime) Spiriva Respimat 1.25 mcg/inh inhalation aerosol, 2 puffs, Inhale, Daily Tylenol Extra Strength 500 mg oral tablet, 1000 mg= 2 tabs, Oral, q6hr, PRN venlafaxine 150 mg oral capsule, extended release, 150 mg= 1 caps, Oral, HS (at bedtime) Allergies morphine (Itching) bee venom (unknown) penicillins (unknown) Social History Alcohol Never Substance Abuse Denies [...] SARS-CoV-2 (COVID-19) mRNA-1273 vaccine 01/04/2021 Recorded Comments : 2023-08-31: TPV60 [1] Telehealth Office Visit Note; Linh Clemons 02/25/2024 14:23 EDT [2] Telehealth Office Visit Note; Rubnia WATERMAN, Johnny Pearson 03/21/2024 10:54 EDT Electronically signed by Linh Clemons 04/04/24 14:14 EDT PROVIDER LETTER Observed: 03/21/2024 10:58 AM Status: F Source: [facility] (Inserted Image. Unable to d isplay) Shaikh Maine MD [address] [place] [id number] Re: Joie Aly Date of Visit: 03/21/[address] Grove, Thank you for your referral to my office. Attached you will find the most recent office visit note. Please call if you have any questions or concerns. Sincerely, Johnny Cespedes MD [address] [facility], [address] [place] [address] The following document(s) were included in the letter: March 21, 2024 10:54:06 EDT - (03/21/2024) Telehealth Office Visit Note INFECTIOUS DISEASE OFFICE/CLINIC NOTE Observed: 03/21/2024 10:54 AM Status: F Source: [facility] This is a Telehealth Appoint ment *This visit was conducted via Telehealth with real time interactive synchronized audio and video communication. The patient provided written consent for treatment. The patient understands their rights, the HIPAA risks and that they will be charged accordingly for the services rendered. The patient was seen via telemedicine while they were at: _ custodial This telemedicine visit was conducted due to: Mobility Chief Complaint 2 week follow up for right prosthetic knee joint infection History of Present Illness Telehealth visit for follow-up of right prosthetic knee infection. Surgery on February 02 for explantation with placement of spacer, saucerization of right femur and tibia. Cultures positive for MRSE. Vancomycin scheduled through March 16. Has developed moderate eosinophilia absolute eosinophils in the thousand range.. Also had a significant drop in platelets down to 30,000 range on February 22 which came back up after stopping Vanco. After restarting the Vanco February 27, platelet counts have been hanging in the 100,000 range. ESR and CRP is okay. [1] Still with 8/10 pain of the right knee. No fever or chills. Eating okay. Being allowed to 25% weightbearing on the knee. Incision looks okay. Review of Systems No other new problems. Physical Exam Vitals & Measurements HR: 77 (Peripheral) BP: 122/62 SpO2: 98 WT: 149.95 kg WT: 149.95 kg (Dosing) Vital signs are okay. Appears comfortable. Skin color looks okay. No respiratory distress. Right knee incision looks good. Minimal erythema noted last time has resolved. Cultures from surgery reviewed. Staph epi with doxycycline JONE of 4 and resistant to tetracycline. Susceptible to clindamycin and Bactrim and linezolid. Additional Vitals No qualifying data available. Assessment/Plan 1. Infection of prosthetic right knee joint Vancomycin was finished last week. Will go ahead and discontinue the PICC line. Would like to put him on oral antibiotic but choices become limited as doxycycline has borderline JONE, hyperkalemia raises concern for using Bactrim, and low platelets raises concern for linezolid. Will put him on clindamycin. Probiotics may have some benefit. Recheck in 2 to 3 weeks. Will also check a CBC and a BMP today. Orders given. 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 (10/19/2017) Incision and Drainage Knee with Poly Exchange (Right, Knee) (07/22/2023) Application Wound Vac (Right, Knee) (07/22/2023) Arthroplasty Knee Total Revision with Poly Tibial Spacer (Right) (02/03/2024) Medications amLODIPine 5 mg oral tablet, 5 mg= 1 tabs, Oral, Daily atorvastatin 10 mg oral tablet, 10 mg= 1 tabs, Oral, Daily busPIRone 30 mg oral tablet, 30 mg= 1 tabs, Oral, BID clonazePAM 1 mg oral tablet, 1 mg= 1 tabs, Oral, TID, Scheduled fluticasone 50 mcg/inh nasal spray, 2 sprays, Nasal, qAM fluticasone-salmeterol 113 mcg-14 mcg/inh inhalation powder, 1 inh, BID furosemide 20 mg oral tablet, 20 mg= 1 tabs, Oral, Daily gabapentin 600 mg oral tablet, 600 mg= 1 tabs, Oral, TID glimepiride 4 mg oral tablet, 4 mg= 1 tabs, Oral, BID hydrOXYzine hydrochloride 50 mg oral tablet, 50 mg= 1 tabs, Oral, TID, Scheduled levothyroxine 125 mcg (0.125 mg) oral tablet, 125 mcg= 1 tabs, Oral, Daily lisinopril 20 mg oral tablet, 20 mg= 1 tabs, Oral, Daily loratadine 10 mg oral tablet, 10 mg= 1 tabs, Oral, Daily meloxicam 15 mg oral tablet, 15 mg= 1 tabs, Oral, Daily metFORMIN 850 mg oral tablet, 850 mg= 1 tabs, Oral, BID NovoLOG FlexPen 100 units/mL injectable solution, Subcutaneous, ACHS, sliding scale oxyCODONE 5 mg oral tablet, 5 mg= 1 tabs, Oral, q6hr, PRN prazosin 1 mg oral capsule, 1 mg= 1 caps, Oral, HS (at bedtime) Spiriva Respimat 1.25 mcg/inh inhalation aerosol, 2 puffs, Inhale, Daily Tylenol Extra Strength 500 mg oral tablet, 1000 mg= 2 tabs, Oral, q6hr, PRN vancomycin 2 g/400 mL intravenous solution, 2 g, IV, q24hr, Not taking: stop date 03/16/24 venlafaxine 150 mg oral capsule, extended release, 150 mg= 1 caps, Oral, HS (at bedtime) Allergies morphine (Itching) bee venom (unknown) penicillins (unknown) Social History Alcohol Never Substance Abuse Denies [...] SARS-CoV-2 (COVID-19) mRNA-1273 vaccine 01/04/2021 Recorded Comments : 2023-08-31: TPV60 Lab Results Laboratory studies reviewed including on March 13. Platelet count 100,000 range with previous platelet count up to 200,000 on March 11. Still with mild hyperkalemia. Creatinine is okay. Vancomycin troughs are okay. Eosinophils is 700. Sed rate CRP normal. [1] Telehealth Office Visit Note; Johnny Cespedes MD 03/07/2024 12:08 EDT Electronically signed by Johnny Cespedes MD 03/21/24 10:58 EDT ALLERGIES DATE TYPE / CODE NAME / CODE REACTION SEVERITY SOURCE 02/01/2021 DRUG/098662 003(SNOMED CT) HYDROCODONE-ACETAM INOPHEN (Inactive) Nausea Only [facility] 08/18/2018 Environ/420 127565(SNOM ED CT) BEE STING SWELLING [facility] 08/18/2018 DRUG INGREDI/419 811825(SNOM ED CT) BEE VENOM PROTEIN (HONEY BEE) Anaphylaxis~Swe lling~Unknown High [facility] 01/16/2015 Drug Class/68972 1003(SNOMED CT) PENICILLINS ITCHING [facility] 01/16/2015 Drug Class/78414 1003(SNOMED CT) PENICILLINS Itching [facility] 05/25/2014 DRUG INGREDI/419 418288(SNOM ED CT) MORPHINE RASH [facility] 05/25/2014 DRUG INGREDI/419 217219(SNOM ED CT) MORPHINE Itching~Rash Medium [facility] DR/25300435 6(SNOMED CT) amoxicillin 582829019 [facility] DR/55708391 6(SNOMED CT) morphine 206081254 [facility] DR/38546117 6(SNOMED CT) cefdinir 551355166 [facility] SYSTEMIC/42 8000091(SNO MED CT) ALLERGIES NOT ON FILE [facility] ENV/0268692 06(SNOMED CT) bee venom unknown [facility] DRUG/156728 003(SNOMED CT) morphine Itching Severe (Severity Modifier) (Qualifier Value) [facility] DRUG/831177 003(SNOMED CT) penicillins unknown UNK [facility] ENCOUNTERS ADMIT/DISCHARGE ACCOUNT NUMBER ADMITTING ENCOUNTER CLASS LOCATION SOURCE 03/02/2025 [id number] Ambulatory CD:[id number] Building:CD:2 [id number] [facility] 02/07/2025/02/08/20 [id number] [id number] 02/07/2025/02/08/20 [id number] [facility] 01/26/2025/01/27/20 [id number] [place] 4 [facility] 01/24/2025 [id number] [place] Estephan[place] [facility] 01/20/2025/01/25/20 [id number] Supa Perez [id number][facility] 1 [facility] 12/22/2024/12/23/19 [id number] Ambulatory Buildin [facility]3 [facility] 12/22/2024/12/23/19 [id number] Ambulatory Buildin [facility]3 [facility] 12/22/2024/12/23/19 [id number] Ambulatory Buildin [facility]3 [facility] 12/22/2024 [id number] Ambulatory Buildin [facility] 12/22/2024/12/23/19 [id number] Ambulatory Buildin 1137 [facility] 12/22/2024/12/23/19 [id number] Ambulatory Buildin 1273 [facility] 12/15/2024/12/15/19 [id number] Ambulatory Building:[facility] CI POD [facility] 12/08/2024/12/08/19 [id number] Ambulatory Building:[facility] AMMED [facility] 11/16/2024/11/16/19 25 [id number] Ambulatory Building:[facility] 09/30/2024/09/30/20 24 [id number] Ambulatory Building:[facility] MR IMAGING [facility] 09/12/2024/09/12/20 24 [id number] Ambulatory Buildin 1273 [facility] 09/12/2024/09/12/20 24 [id number] Ambulatory Buildin [facility] 09/08/2024/09/08/20 24 [id number] [facility] 09/08/2024/09/08/20 24 [id number] Ambulatory Building:[facility] CI POD [facility] 08/24/2024/08/24/20 24 [id number] [facility] 08/17/2024/08/17/20 24 [id number] [facility] 08/02/2024/08/02/20 24 [id number] Ambulatory Building:[facility] 07/22/2024/07/22/20 24 [id number] [facility]TH [facility] 07/22/2024/07/22/20 24 [id number] [facility] 07/04/2024/07/04/20 24 [id number] Ambulatory Building:[facility] 06/22/2024/06/22/20 24 [id number] [facility] 06/16/2024/06/16/20 24 [id number] Ambulatory Building:[facility] CI POD [facility] 06/13/2024/06/13/20 24 [id number] Ambulatory Building:[facility] 06/02/2024/06/02/20 24 [id number] Ambulatory Infectious DiseaseBuildi ng:Infectious Disease [facility] 05/27/2024 [id number] [facility] 05/27/2024/05/27/20 24 [id number] [facility] 05/23/2024/05/23/20 24 [id number] Ambulatory Building:[facility] AMMED [facility] 05/05/2024/05/05/20 24 [id number] Ambulatory Infectious DiseaseBuildi ng:Infectious Disease [facility] 05/02/2024/05/02/20 24 [id number] Ambulatory Building:[facility] 04/14/2024/04/14/20 24 [id number] Ambulatory Infectious DiseaseBuildi ng:Infectious Disease [facility] 04/04/2024/04/04/20 24 [id number] Ambulatory Infectious DiseaseBuildi ng:Infectious Disease [facility] 03/21/2024/03/21/20 24 [id number] Ambulatory Infectious DiseaseBuildi ng:Infectious Disease [facility] PAYERS ENCOUNTER GUARANTOR PAYER SUBSCRIBER SOURCE 02/07/2025 Primary [facility] [place]: [id number] Date:[id number] Name:Jeremiah Dimas ALY DUEÑAS: [id number] [address] 02/07/2025 Primary Insurance:[facility] Number: [id number] Date:[id number] Name:Jeremiah Dimas ALY DUEÑAS: [id number] [address] 02/07/2025 Primary Insurance:[facility] Number: [id number] Date:[id number] Name:Jeremiah Dimas ALY DUEÑAS: [id number] [address] 01/26/2025 JOIE Judie GLENN: [facility] STTel: [phone] ([phone]) Primary Insurance:MEDICARE [facility] Number: [id number] Date:2025-01-26 JOIE GUERIN [facility] 01/26/2025 Secondary Insurance:SELF PAYPolicy Number: Effective Date:2025-01-25 JOIE GUERIN [facility] 01/20/2025 Joie Carter [employer] [place] [address]Taj: (HP) Primary Insurance:[employer] MCR PFFSPolicy Number: [id number] Date:2025-01-20 Joie SimmonsB: [id number] [employer] [place] [address]Ugm: (HP) [facility] 01/20/2025 Secondary Insurance:MedicarePoli cy Number: [id number] Date:2025-01-20 Joie SimmonsB: [id number] [employer] [place] [place] [address]Skx: (HP) [facility] 01/20/2025 Tertiary Insurance:Self PayPolicy Number: Effective Date:2025-01-20 [facility] Primary Insurance:DEVOTED HEALTHPolicy Number: [id number] Date:2022-10-19 JOIE LUDOB: [id number] [place] [address] [facility] 12/22/2024 Primary Insurance:DEVOTED HEALTHPolicy Number: [id number] Date:2022-10-19 JOIE LUDOB: [id number] [place] [address] [facility] 12/22/2024 Primary Insurance:DEVOTED HEALTHPolicy Number: [id number] Date:2022-10-19 JOIE SIMMONSB: [id number] [place] [address] [facility] 12/22/2024 Primary Insurance:DEVOTED HEALTHPolicy Number: [id number] Date:2022-10-19 JOIE LUDOB: [id number] [place] [address] [facility] 12/22/2024 Primary Insurance:DEVOTED HEALTHPolicy Number: [id number] Date:2022-10-19 JOIE LUDOB: [id number] [place] [address] [facility] 12/22/2024 Primary Insurance:DEVOTED HEALTHPolicy Number: [id number] Date:2022-10-19 JOIE LUB: [id number] [place] [address] [facility] 12/15/2024 JOIE Dimas ALY REDMAN: [place] [address]Afn: (HP) Primary Insurance:DEVOTED HEALTHPolicy Number: [id number] Date:2022-10-19 JOIE Dimas ALY REDMAN: [id number] [place] [address] [facility] 12/08/2024 JOIE Dimas ALY REDMAN: [place] [address]Egg: (HP) Primary Insurance:DEVOTED HEALTHPolicy Number: [id number] Date:2022-10-19 JOIE Dimas ALY REDMAN: [id number] [place] [address] [facility] 11/16/2024 JOIE Dimas ALY REDMAN: [place] [address]Nyc: (HP) Primary Insurance:DEVOTED HEALTHPolicy Number: [id number] Date:2022-10-19 JOIE Diams ALY REDMAN: [id number] [place] [address] [facility] 09/30/2024 Primary Insurance:DEVOTED HEALTHPolicy Number: [id number] Date:2022-10-19 JOIE Dimas ALYDOB: [id number] [place] [address] [facility] 09/12/2024 Primary Insurance:DEVOTED HEALTHPolicy Number: [id number] Date:2022-10-19 JOIE Dimas ALYDOB: [id number] [place] [address] [facility] 09/12/2024 Primary Insurance:DEVOTED HEALTHPolicy Number: [id number] Date:2022-10-19 JOIE Dimas TROYB: [id number] [place] [address] [facility] 09/08/2024 JOIE Dimas ALY REDMAN: [place] [address]Zlg: (HP) Primary Insurance:DEVOTED HEALTHPolicy Number: [id number] Date:2022-10-19 JOIE Dimas ALY REDMAN: [id number] [place] [address] [facility] 09/08/2024 JOIE Dimas ALY REDMAN: [place] [address]Zhy: (HP) Primary Insurance:DEVOTED HEALTHPolicy Number: [id number] Date:2022-10-19 JOIE Dimas ALY REDMAN: [id number] [place] [address] [facility] 08/24/2024 JOIE Dimas ALY REDMAN: [place] [address]Ngt: (HP) Primary Insurance:DEVOTED HEALTHPolicy Number: [id number] Date:2022-10-19 JOIE Dimas ALY REDMAN: [id number] [place] [address] [facility] 08/17/2024 JOIE Dimas ALY REDMAN: [place] [address]Gjq: (HP) Primary Insurance:DEVOTED HEALTHPolicy Number: [id number] Date:2022-10-19 JOIE Dimas ALY REDMAN: [id number] [place] [address] [facility] 08/02/2024 JOIE Dimas ALY REDMAN: [place] [address]Aph: (HP) Primary Insurance:DEVOTED HEALTHPolicy Number: [id number] Date:2022-10-19 JOIE Dimas ALY REDMAN: [id number] [place] [address] [facility] 07/22/2024 Primary Insurance:[employer] HI HMOPolicy Number: [id number] Date:1098-93-18Hdxd Name:Jeremiah LU DOB: [id number] [place] [address] [facility] 07/22/2024 Primary Insurance:[employer] [place] HMOPolicy Number: [id number] Date:9414-99-10Soxd Name:Jeremiah LU DOB: [id number] [place] [address] [facility] 07/04/2024 MARCOS Dimas TROYB: [address] [place], [place] [address]Eqe: (HP) Primary Insurance:DEVOTED HEALTH PLANPolicy Number: [id number] Date:6143-24-85JL JOMAR [address], [place] [address]OL: MARCOS Dimas TROYB: [id number] [place], [place] [address]Sce: (HP) [facility] 06/22/2024 JOIE LU JRRenee: [place] [address]Nao: (HP) Primary Insurance:DEVOTED HEALTHPolicy Number: [id number] Date:2022-10-19 JOIE LU JRRenee: [id number] [place] [address] [facility] 06/16/2024 JOIE LU JRRenee: [place] [address]Vdm: (HP) Primary Insurance:DEVOTED HEALTHPolicy Number: [id number] Date:2022-10-19 JOIE LU JRRenee: [id number] [place] [address] [facility] 06/13/2024 MARCOS LUDOB: [address] [place], [place] [address]Ggp: (HP) Primary Insurance:DEVOTED HEALTH PLANPolicy Number: [id number] Date:3019-35-70AM JOMAR BHARATLD [address]SH: MARCOS LUDOB: [id number] [address] [place], [place] [address]Gno: (HP) [facility] 06/02/2024 Joie LuB: [place] [address]Gkz: (HP) Primary Insurance:[employer] Medicare AdvantagePolicy Number: Effective Date:6484-31-72Uqob Name:ADI Gomez [id number] [address]PB: Joie LuDOB: [id number] [place] [address]Olindaosmany [email or web address] [facility] 05/27/2024 Primary Insurance:[employer] HI HMOPolicy Number: [id number] Date:4683-59-13Dpsu Name:Jeremiah LU DOB: [id number] [place] [address] [facility] 05/27/2024 Primary Insurance:[employer]ALTH [facility] Number: [id number] Date:4265-07-94Foot Name:Jeremiah Dimas ALY SILVADOB: [id number] [place] [address] [facility] 05/23/2024 JOIE Dimas ALY REDMAN: [place] [address]Edt: (HP) Primary Insurance:DEVOTED HEALTHPolicy Number: [id number] Date:2022-10-19 JOIE Dimas ALY REDMAN: [id number] [place] [address] [facility] 05/05/2024 Joie Dimas TroyB: [place] [address]Kau: (HP) Primary Insurance:[employer] Medicare AdvantagePolicy Number: Effective Date:0640-06-16Ucwy Name:ADI Gomez [id number] [address]VB: Joie Dimas AlyDOB: [id number] [place] [address]romero [email or web address] [facility] 05/02/2024 JOIE Dimas ALY REDMAN: [place] [address]Zdr: (HP) Primary Insurance:DEVOTED HEALTHPolic Number: [id number] Date:2022-10-19 JOIE Dimas ALY REDMAN: [id number] [place] [address] [facility] 04/14/2024 Joie Dimas TroyB: [place] [address] Primary Insurance:[employer] Medicare AdvantagePolicy Number: Effective Date:9259-81-24Uzjw Name:[place] [address]UR: Joie LuB: [id number] [place] [address] [facility] 04/04/2024 Joie Dimas TroyB: [place] [address] Primary Insurance:[employer] Medicare AdvantagePolicy Number: Effective Date:3112-38-84Dktt Name:ADI Gomez [id number], [place] [address]MZ: Joie Dimas TroyB: [id number] [place] [address] [facility] 03/21/2024 Joie Dimas Glenn: [place] [address] Primary Insurance:[employer] Medicare AdvantagePolicy Number: Effective Date:1746-15-82Tbxh Name:ADI Gomez [id number], [place] [address]KP: Joie Dimas Glenn: [id number] [place] [address] [facility]
[2025-03-09 10:26] VITALS: BP 112/63; PULSE 73; TEMP 36.6; O2SAT 96
[2025-03-09] MEDS: LIDOCAINE 2% JELLY 10 ML UR (12:03)
[2025-03-09 12:06] VITALS: BP 130/75; BP 139/83; PULSE 18; PULSE 72; O2SAT 96; O2SAT 97
--- NOTE | 2025-03-09 12:33 | PM.URSON ---
Urology Surgery Operative Note Operative Note Procedure Date: 03/09/25 Time Out Performed: yes Pre-op Diagnosis: BPH with LUTS refractory to medications Post-op Diagnosis: same as pre-op Procedures performed: 1. Cystoscopy. Anesthesia: local Primary Surgeon: Laz Sawyer Complications: None Estimated blood loss (mL): 0 Findings: 1. Lateral lobe hypertrophy but not total obstruction visually. 2. Moderate to high-grade trabeculation. No bladder tumors. Specimens: None Drains: Nino catheter was replaced. Indications for Procedures: This gentleman was found to have 2 L of PVR after a Nino was placed when he was in acute renal insufficiency and with pneumonia while in the hospital. He has had a Nino in for the last few months. He now presents for cystoscopy. He has signed an informed consent. Detailed description of Procedure: The patient was kept on the gurney bed and brought into the endoscopy suite. Timeout was done by all parties in the room. Genitalia were sterilely prepped and draped in the usual fashion. 2% lidocaine gel was passed per urethra. I started by passing a flexible cystoscope through his hypospadiac meatus. The urethra was normal. The prostate revealed bilobar hypertrophy without total visual obstruction. The lateral lobes were not long. Panendoscopy in the bladder showed cath cystitis as expected. No bladder tumors were seen. There was moderate to high-grade trabeculation. Some mild small mouth diverticuli formation was noted also. The patient's sensation of fullness was absent. The scope was then removed. A new Nino catheter was placed. Clear urine drained. Plan: He will keep his Nino catheter indwelling until he gets his left knee surgery done which is the end of April. Once he has healed and is more ambulatory we then will put him through urodynamics.
== END 2025-03-09 12:38 | disposition home or self-care (01) ==
PROVIDERS: Visit Provider Urology
PROC: (CPT 52000; principal; 2025-03-09 10:35)
DX: N40.1 Benign prostatic hyperplasia with lower urinary tract symptoms (principal); R33.8 Other retention of urine; E11.9 Type 2 diabetes mellitus without complications; F41.9 Anxiety disorder, unspecified; F32.9 Major depressive disorder, single episode, unspecified; J44.9 Chronic obstructive pulmonary disease, unspecified; N32.89 Other specified disorders of bladder; Z87.01 Personal history of pneumonia (recurrent); N30.90 Cystitis, unspecified without hematuria; E78.5 Hyperlipidemia, unspecified; E03.9 Hypothyroidism, unspecified; Z90.49 Acquired absence of other specified parts of digestive tract; Z98.52 Vasectomy status; Z87.891 Personal history of nicotine dependence
CPT/HCPCS: 52000